=== PATIENT | female | born 1990 | race African-American/Black ===

== ENCOUNTER 2018-05-14 21:48 | Emergency (ER) | payer MEDICAID, SELFPAY ==
[2018-05-14 22:53] LABS: KETONE, URINE AUTO RFX NEGATIVE (NEGATIVE); MUCUS, URINE RFX SMALL (NEGATIVE); NITRITE, URINE AUTO RFX NEGATIVE (NEGATIVE); RBC, URINE AUTO RFX 8 /HPF (0-3); SPECIFIC GRAVITY UR AUTO RFX 1.031 (1.002-1.035); SQUAM EPITHELIAL CELL UR AURFX 5 /HPF (0-6)
[2018-05-14 22:59] LABS: LEUKOCYTE ESTERASE UR AUTO RFX 2+ (NEGATIVE); WBC, URINE AUTO RFX 13 /HPF (0-3)
== END 2018-05-15 01:56 | disposition home or self-care (01) ==
LOC: M ED 05-15 01:56
DX: O23.41 Unspecified infection of urinary tract in pregnancy, first trimester (principal); O30.031 Twin pregnancy, monochorionic/diamniotic, first trimester; Z3A.13 13 weeks gestation of pregnancy; O31.21X1 Continuing pregnancy after intrauterine death of one fetus or more, first trimester, fetus 1; Z3A.10 10 weeks gestation of pregnancy; O99.351 Diseases of the nervous system complicating pregnancy, first trimester; O99.341 Other mental disorders complicating pregnancy, first trimester; O99.011 Anemia complicating pregnancy, first trimester; Z79.899 Other long term (current) drug therapy; Z88.5 Allergy status to narcotic agent; Z88.8 Allergy status to other drugs, medicaments and biological substances; Z91.040 Latex allergy status
CPT/HCPCS: 76811

== ENCOUNTER 2018-06-15 18:47 | Emergency (ER) | payer SELFPAY ==
[2018-06-15] MEDS: NS 500 ML IV (19:28)
[2018-06-15] MEDS: hydrALAZINE INJ 20 MG/ML VIAL IV (19:29)
[2018-06-15 19:34] LABS: BASO # 0.1 10^3/uL (0.0-0.2); BASO % 0.3 % (0.0-1.0); EOS # 0.1 10^3/uL (0.0-0.50); EOS % 0.7 % (0.0-3.0); HEMATOCRIT 40.5 % (36.0-47.0); HEMOGLOBIN 13.3 g/dl (12.0-15.5); IMMATURE GRANULOCYTE % 0.4 % (0-3.0); LYMPH # 3.4 10^3/uL (1.5-6.5); LYMPH % 23.7 % (24.0-44.0); MEAN CORPUSCULAR HGB CONC 32.8 g/dl (32.0-36.5); MEAN CORPUSCULAR VOLUME 79.1 fl (80.0-96.0); MONO # 0.7 10^3/uL (0.0-0.8); MONO % 4.7 % (0.0-5.0); NEUTROPHILS # 10.1 10^3/uL (1.8-7.7); NEUTROPHILS % 70.2 % (36.0-66.0); PLATELET COUNT, AUTOMATED 319 10^3/uL (150-450); RED BLOOD COUNT 5.12 10^6/uL (4.00-5.40); RED CELL DISTRIBUTION WIDTH 14.1 % (11.5-14.5); WHITE BLOOD COUNT 14.4 10^3/uL (4.0-10.0)
[2018-06-15] MEDS: METOCLOPRAMIDE INJ 10MG/2ML VIAL (J2765) IV (19:34)
[2018-06-15] MEDS: HYDROMORPHONE HCL 0.5 MG/ 0.5 ML SYRINGE (J1170 PER 1) IV (19:55)
[2018-06-15 20:02] LABS: ALBUMIN 3.5 GM/DL (3.2-5.2); ALKALINE PHOSPHATASE 133 U/L (45-117); ALT/SGPT 34 U/L (12-78); ANION GAP 13 MEQ/L (8-16); AST/SGOT 11 U/L (7-37); BILIRUBIN,DIRECT < 0.1 MG/DL (0.0-0.2); BILIRUBIN,TOTAL 0.2 MG/DL (0.2-1.0); BLOOD UREA NITROGEN 4 MG/DL (7-18); CALCIUM LEVEL 9.7 MG/DL (8.5-10.1); CARBON DIOXIDE LEVEL 19 MEQ/L (21-32); CHLORIDE LEVEL 110 MEQ/L (98-107); CREATININE FOR GFR 0.64 MG/DL (0.55-1.30); GLOMERULAR FILTRATION RATE > 60.0 (>60); GLUCOSE, FASTING 95 MG/DL (70-100); HCG, SERUM QUANTITATIVE 941 MIU/ML; POTASSIUM SERUM 3.3 MEQ/L (3.5-5.1); SODIUM LEVEL 142 MEQ/L (136-145); TOTAL PROTEIN 7.9 GM/DL (6.4-8.2)
[2018-06-15] MEDS: POTASSIUM CHLORIDE 10 MEQ SR TABLET PO (20:22)
== END 2018-06-15 21:02 | disposition home or self-care (01) ==
LOC: M ED 18:47
DX: O36.4XX0 Maternal care for intrauterine death, not applicable or unspecified (principal); O13.2 Gestational [pregnancy-induced] hypertension without significant proteinuria, second trimester; O99.352 Diseases of the nervous system complicating pregnancy, second trimester; G40.909 Epilepsy, unspecified, not intractable, without status epilepticus; Z3A.18 18 weeks gestation of pregnancy
CPT/HCPCS: J2765

== ENCOUNTER 2018-07-05 11:44 | Day surgery (SDC) | payer MEDICAID, SELFPAY ==
[2018-07-05 13:33] LABS: KETONE, URINE AUTO RFX NEGATIVE (NEGATIVE); LEUKOCYTE ESTERASE UR AUTO RFX NEGATIVE (NEGATIVE); NITRITE, URINE AUTO RFX NEGATIVE (NEGATIVE); RBC, URINE AUTO RFX 2 /HPF (0-3); SPECIFIC GRAVITY UR AUTO RFX 1.006 (1.002-1.035); SQUAM EPITHELIAL CELL UR AURFX 1 /HPF (0-6); WBC, URINE AUTO RFX 1 /HPF (0-3)
[2018-07-05] MEDS: NS 1,000 ML IV (13:34)
[2018-07-05] MEDS: ONDANSETRON 4MG/2ML VIAL (J2405) IV (13:34)
[2018-07-05] MEDS: fentaNYL 100 MCG/2 ML INJECTION (J3010) IV ×6 (13:35→19:22)
[2018-07-05 13:58] LABS: BASO % 0.1 % (0.0-1.0); HEMATOCRIT 37.5 % (36.0-47.0); HEMOGLOBIN 12.2 g/dl (12.0-15.5); IMMATURE GRANULOCYTE % 0.4 % (0-3.0); LYMPH # 2.3 10^3/uL (1.5-6.5); LYMPH % 11.5 % (24.0-44.0); MEAN CORPUSCULAR HEMOGLOBIN 25.9 pg (27.0-33.0); MEAN CORPUSCULAR HGB CONC 32.5 g/dl (32.0-36.5); MEAN CORPUSCULAR VOLUME 79.6 fl (80.0-96.0); MONO # 0.8 10^3/uL (0.0-0.8); MONO % 3.8 % (0.0-5.0); NEUTROPHILS # 17.2 10^3/uL (1.8-7.7); NEUTROPHILS % 84.2 % (36.0-66.0); PLATELET COUNT, AUTOMATED 342 10^3/uL (150-450); RED BLOOD COUNT 4.71 10^6/uL (4.00-5.40); RED CELL DISTRIBUTION WIDTH 15.1 % (11.5-14.5); WHITE BLOOD COUNT 20.4 10^3/uL (4.0-10.0)
[2018-07-05 13:59] LABS: ANION GAP 7 MEQ/L (8-16); BLOOD UREA NITROGEN 11 MG/DL (7-18); C REACTIVE PROTEIN QUANTITATIV 0.65 MG/DL (0.00-0.30); CALCIUM LEVEL 9.4 MG/DL (8.5-10.1); CARBON DIOXIDE LEVEL 25 MEQ/L (21-32); CHLORIDE LEVEL 110 MEQ/L (98-107); CREATININE FOR GFR 0.69 MG/DL (0.55-1.30); GLOMERULAR FILTRATION RATE > 60.0 (>60); GLUCOSE, FASTING 87 MG/DL (70-100); SODIUM LEVEL 142 MEQ/L (136-145)
[2018-07-05 14:38] LABS: ERYTHROCYTE SEDIMENTATION RATE 26 mm/hr (0-20)
[2018-07-05] MEDS ORDERED: PIPERACILLIN/TAZOBACTAM SOD 3.375 GM in D5W MINI-BAG PLUS 50 ML IV (16:00)
[2018-07-05] MEDS: cefTRIAXone SOD 1 GM in D5W MINI-BAG PLUS 50 ML IV (17:12)
[2018-07-05] MEDS ORDERED: PROPOFOL 200 MG/20 ML VIAL As Ordered (17:44)
[2018-07-05] MEDS ORDERED: ONDANSETRON 4MG/2ML VIAL (J2405) As Ordered (17:44)
[2018-07-05] MEDS ORDERED: fentaNYL 100 MCG/2 ML INJECTION (J3010) As Ordered (17:44)
[2018-07-05] MEDS ORDERED: ROCURONIUM BROMIDE 50 MG/5 ML VIAL As Ordered (17:44)
[2018-07-05] MEDS ORDERED: MIDAZOLAM INJ 2 MG/2 ML VIAL (J2250) As Ordered (17:44)
[2018-07-05] MEDS ORDERED: dexameTHASONE 4 MG/ML 1ML VIAL (J1100) As Ordered (17:44)
[2018-07-05] MEDS ORDERED: LIDOCAINE 2% INJ 100 MG/5 ML SDV (FOR ANES.) As Ordered (17:44)
[2018-07-05] MEDS: SILVER NITRATE APPLICATOR As Ordered (18:44)
[2018-07-05] MEDS ORDERED: METOCLOPRAMIDE INJ 10MG/2ML VIAL (J2765) IV (19:15)
[2018-07-05] MEDS ORDERED: KETOROLAC 30 MG/ML VIAL (J1885) IV (19:15)
[2018-07-05] MEDS ORDERED: LR 1,000 ML IV ×2 (19:15)
[2018-07-05] MEDS ORDERED: ONDANSETRON 4MG/2ML VIAL (J2405) IV (19:15)
[2018-07-05] MEDS: traMADol 50 MG TAB PO (19:27)
[2018-07-05] MEDS: PERCOCET 5MG/325MG TAB PO ×2 (19:40→20:20)
[2018-07-05] MEDS ORDERED: PERCOCET 5MG/325MG TAB As Ordered (20:25)
== END 2018-07-05 21:45 | disposition home or self-care (01) ==
LOC: M SDC 21:45 → M ED 11:44 → M SDC 17:59
DX: O73.1 Retained portions of placenta and membranes, without hemorrhage (principal); Z91.040 Latex allergy status
CPT/HCPCS: 59820

== ENCOUNTER 2019-03-05 16:28 | Emergency (ER) | payer MEDICAID ==
[~2019-03-05] VITALS: Ht 165.1 cm; Wt 104.8 kg
[~2019-03-05 16:28] MED LIST: DOXY-350 PO; FIOR1CAP PO; FLAG500T PO; KEPP10002 PO; LABE10TAB PO; MACR100C43 PO; ULTR50TA8 PO
[2019-03-05] MEDS ORDERED: HYDR12CA PO (16:46)
[2019-03-05] MEDS ORDERED: LISI40TA PO (16:46)
[2019-03-05] MEDS ORDERED: FLUO20CA19 PO (16:46)
[2019-03-05] MEDS ORDERED: PROP20TA72 PO (16:46)
[2019-03-05] MEDS ORDERED: GABA-845 PO (16:46)
[2019-03-05] MEDS ORDERED: CLON0.5T8 PO (16:46)
[2019-03-05] MEDS ORDERED: METF500T13 (16:46)
[2019-03-05] MEDS ORDERED: TRAZ-160 PO (16:46)
[2019-03-05] MEDS ORDERED: TIZA2TA PO (16:46)
[2019-03-05] MEDS ORDERED: ONDA4TAB6 (16:46)
[2019-03-05] MEDS ORDERED: ALL10TAB28 PO (16:46)
[2019-03-05] MEDS ORDERED: NS 1,000 ML IV ONE (17:30)
[2019-03-05 17:46] LABS: BASO # 0.1 10^3/uL (0.0-0.2); BASO % 0.4 % (0.0-1.0); EOS # 0.3 10^3/uL (0.0-0.50); EOS % 2.3 % (0.0-3.0); HEMATOCRIT 36.1 % (36.0-47.0); HEMOGLOBIN 11.5 g/dl (12.0-15.5); LYMPH # 3.5 10^3/uL (1.5-6.5); LYMPH % 29.2 % (24.0-44.0); MEAN CORPUSCULAR HEMOGLOBIN 26.5 pg (27.0-33.0); MEAN CORPUSCULAR HGB CONC 31.9 g/dl (32.0-36.5); MEAN CORPUSCULAR VOLUME 83.2 fl (80.0-96.0); MONO # 0.6 10^3/uL (0.0-0.8); MONO % 5.1 % (0.0-5.0); NEUTROPHILS # 7.4 10^3/uL (1.8-7.7); NEUTROPHILS % 62.7 % (36.0-66.0); PLATELET COUNT, AUTOMATED 288 10^3/uL (150-450); RED BLOOD COUNT 4.34 10^6/uL (4.00-5.40); WHITE BLOOD COUNT 11.8 10^3/uL (4.0-10.0)
[2019-03-05] MEDS ORDERED: LORazepam 2 MG/ML VIAL (J2060) IV STA (17:58)
[2019-03-05 18:16] LABS: HCG, SERUM QUALITATIVE NEGATIVE (NEGATIVE)
[2019-03-05 18:20] LABS: BLOOD UREA NITROGEN 7 MG/DL (7-18); CALCIUM LEVEL 9.1 MG/DL (8.5-10.1); CARBON DIOXIDE LEVEL 29 MEQ/L (21-32); CHLORIDE LEVEL 103 MEQ/L (98-107); CREATININE FOR GFR 0.73 MG/DL (0.55-1.30); GLOMERULAR FILTRATION RATE > 60.0 (>60); GLUCOSE, FASTING 81 MG/DL (70-100); POTASSIUM SERUM 3.4 MEQ/L (3.5-5.1); SODIUM LEVEL 138 MEQ/L (136-145)
[2019-03-05 18:46] LABS: C REACTIVE PROTEIN QUANTITATIV 1.46 MG/DL (0.00-0.30)
[2019-03-05] MEDS ORDERED: PROHANCE 279.3MG/ML 15ML VIAL (A9576) As Ordered ONE (18:46)
[2019-03-05] MEDS ORDERED: PROHANCE 279.3MG/ML 5ML VIAL (A9576) As Ordered ONE (18:46)
[2019-03-05 18:53] LABS: ERYTHROCYTE SEDIMENTATION RATE 31 mm/hr (0-20)
[2019-03-05] MEDS ORDERED: LIDO5DIS41 TD (19:53)
[2019-03-05] MEDS ORDERED: ACETAMINOPHEN 325 MG TAB PO ONE (20:00)
[2019-03-05] MEDS ORDERED: LIDOCAINE 5% (LIDODERM) PATCH TD ONE (20:00)
[2019-03-05 21:00] VITALS: BP 132/78
[2019-03-05] MEDS ORDERED: **NOTE PATIENT COMMENT** MISC XX SCH (21:00)
--- NOTE | 2019-03-06 05:38 | REP ---
MRI LUMBAR SPINE WITHOUT AND WITH CONTRAST: HISTORY: Back pain. CONTRAST: ProHance 20 mL. COMPARISON: 01/27/2019. Decreased signal intensity on T2-weighted images is present in the L5-S1 intervertebral disc. The disc is decreased in height. These findings are consistent with disc degeneration. There is no disc bulge or herniation at the L1-2 through L4-5 levels. The nerves exit the neural foramina without compression. A diffuse disc bulge is present at the L5-S1 level. This abuts the thecal sac and S1 nerves. The L5 nerves exit the neural foramina without compression. The conus medullaris is normal in appearance terminating at the level of the L2 vertebral body. Normal signal intensity is present in the lumbar vertebral bodies. IMPRESSION: Diffuse disc bulge at the L5-S1 level. This abuts the thecal sac and S1 nerves. Electronically Signed by Rinku Pace MD 03/06/2019 08:30 A
== END 2019-03-05 21:02 | disposition home or self-care (01) ==
LOC: M ED 16:28
DX: M54.40 Lumbago with sciatica, unspecified side (principal); R51 Headache; R56.9 Unspecified convulsions; I10 Essential (primary) hypertension; F43.10 Post-traumatic stress disorder, unspecified; M32.9 Systemic lupus erythematosus, unspecified; E34.9 Endocrine disorder, unspecified; D57.1 Sickle-cell disease without crisis; M51.27 Other intervertebral disc displacement, lumbosacral region; Z79.84 Long term (current) use of oral hypoglycemic drugs; Z79.899 Other long term (current) drug therapy; Z88.8 Allergy status to other drugs, medicaments and biological substances; Z88.5 Allergy status to narcotic agent; Z91.040 Latex allergy status
CPT/HCPCS: 72158; 80048; 84703; 85025; 85652; 86140; 96361; 96374; 99284; A9576; J2060

== ENCOUNTER 2019-06-27 06:43 | Emergency (ER) | payer OTHER ==
[~2019-06-27] VITALS: Ht 162.6 cm; Wt 118.2 kg
[~2019-06-27 06:43] MED LIST changes: +ALL10TAB29 PO; +CLON0.5T8 PO; +FLUO20CA19 PO; +GABA-845 PO; +HYDR12CA PO; +LIDO5DIS41 TD; +LISI40TA PO; +METF500T13; +ONDA4TAB6; +PROP20TA72 PO; +TIZA2TA PO; +TRAZ-252 PO
[2019-06-27] MEDS ORDERED: NORCO, ANEXSIA 5/325MG TABLET (HYDROcodone/ACETAMINOPHEN) PO ONE (08:15)
--- NOTE | 2019-06-27 08:54 | REPVR ---
EXAM: CT Cervical Spine Without Contrast EXAM DATE/TIME: 06/27/2019 7:17 AM CLINICAL HISTORY: 29 years old, female; Injury or trauma; Fall; Initial encounter; Blunt trauma; Additional info: Trauma, midline tenderness TECHNIQUE: Imaging protocol: Computed tomography images of the cervical spine without contrast. Coronal and sagittal reformatted images were created and reviewed. Radiation optimization: All CT scans at this facility use at least one of these dose optimization techniques: automated exposure control; mA and/or kV adjustment per patient size (includes targeted exams where dose is matched to clinical indication); or iterative reconstruction. COMPARISON: No relevant prior studies available. FINDINGS: Vertebrae: No acute bony injury or malalignment in the cervical spine. Diminished cervical lordosis. Discs/Spinal canal/Neural foramina: No acute findings. Soft tissues: Unremarkable. Lymph nodes: Subcentimeter lymph nodes. Lungs: Unremarkable as visualized. IMPRESSION: No acute bony injury or malalignment in the cervical spine. Electronically signed by: Gamaliel Jaramillo On 06/27/2019 08:54:27 AM
[2019-06-27] MEDS ORDERED: NAPR-837 PO (10:06)
[2019-06-27 10:12] VITALS: BP 150/91
--- NOTE | 2019-06-27 10:30 | REP ---
REASON: Trauma. COMPARISON: None. FINDINGS: Five views of the lumbosacral spine show no acute fracture, dislocation or subluxation. The intervertebral disc spaces are symmetric and well maintained. There is no spondylolisthesis. The pedicles are intact bilaterally and there is no destructive osseous lesions. IMPRESSION: Unremarkable lumbosacral spine series. Electronically Signed by Piotr Farris DO 06/27/2019 02:12 P
--- NOTE | 2019-06-27 10:31 | REP ---
REASON: Trauma with proximal femoral pain. AP and lateral views were obtained. FINDINGS: No acute fracture or destructive osseous lesion. Electronically Signed by Piotr Farris DO 06/27/2019 02:12 P
--- NOTE | 2019-06-27 10:32 | REP ---
REASON: Pain after trauma. The patient refused to remove ankle jewelry. FINDINGS: No acute fracture or destructive osseous lesion. There is an incidental proximal tibial bone island. Electronically Signed by Piotr Farris DO 06/27/2019 02:12 P
--- NOTE | 2019-06-27 10:33 | REP ---
REASON: Pain after trauma. FINDINGS: No acute fracture or destructive osseous lesion. Electronically Signed by Piotr Farris DO 06/27/2019 02:12 P
== END 2019-06-27 10:13 | disposition home or self-care (01) ==
LOC: M ED 06:43
DX: S70.01XA Contusion of right hip, initial encounter (principal); S63.501A Unspecified sprain of right wrist, initial encounter; S13.4XXA Sprain of ligaments of cervical spine, initial encounter; W10.8XXA Fall (on) (from) other stairs and steps, initial encounter; Y92.018 Other place in single-family (private) house as the place of occurrence of the external cause; Z79.899 Other long term (current) drug therapy; Z88.5 Allergy status to narcotic agent; Z88.8 Allergy status to other drugs, medicaments and biological substances; Z91.040 Latex allergy status; F17.210 Nicotine dependence, cigarettes, uncomplicated

== ENCOUNTER → 2019-07-02 | Outpatient (REF) ==
[~2019-07-02] MED LIST changes: +ALL10TAB28 PO; -ALL10TAB29 PO; +NAPR-837 PO
--- NOTE | 2019-07-02 12:36 | REP ---
REASON: Disability determination. AP and lateral views were obtained. Vertebral body height and alignment is within normal limits. The disc spaces are symmetric and well maintained. The pedicles are intact bilaterally. IMPRESSION: Unremarkable limited exam. Electronically Signed by Piotr Farris DO 07/02/2019 12:42 P
== END ==
LOC: M SMT 10:18
PROVIDERS: ATTEND Internal Medicine
DX: Z02.71 Encounter for disability determination (principal)

== ENCOUNTER 2019-12-06 15:15 | Emergency (ER) | payer OTHER ==
[~2019-12-06] VITALS: Ht 162.6 cm; Wt 120.9 kg
[~2019-12-06 15:15] MED LIST changes: -ALL10TAB28 PO; +ALL10TAB29 PO; +CLON0.5T2 PO; -CLON0.5T8 PO
[2019-12-06 15:16] VITALS: BP 132/89
[2019-12-06] MEDS ORDERED: AJOV225I (15:23)
[2019-12-06] MEDS ORDERED: METF500T13 (15:23)
[2019-12-06] MEDS ORDERED: PREG75CA2 (15:23)
[2019-12-06] MEDS ORDERED: QUET5TAB (15:23)
[2019-12-06] MEDS ORDERED: PRAZ1CAP (15:23)
[2019-12-06] MEDS ORDERED: QUET1TAB10 (15:23)
[2019-12-06 16:02] LABS: BASO % 0.2 % (0.0-1.0); EOS # 0.2 10^3/uL (0.0-0.5); EOS % 1.6 % (0.0-3.0); HEMATOCRIT 37.1 % (36.0-47.0); HEMOGLOBIN 11.5 g/dl (12.0-15.5); LYMPH # 2.3 10^3/uL (1.5-5.0); LYMPH % 18.4 % (24.0-44.0); MEAN CORPUSCULAR HEMOGLOBIN 24.4 pg (27.0-33.0); MEAN CORPUSCULAR VOLUME 78.6 fl (80.0-96.0); MONO # 0.5 10^3/uL (0.0-0.8); MONO % 3.9 % (0.0-5.0); NEUTROPHILS # 9.2 10^3/uL (1.5-8.5); NEUTROPHILS % 75.4 % (36.0-66.0); PLATELET COUNT, AUTOMATED 263 10^3/uL (150-450); RED BLOOD COUNT 4.72 10^6/uL (4.00-5.40); WHITE BLOOD COUNT 12.3 10^3/uL (4.0-10.0)
[2019-12-06 16:41] LABS: BLOOD UREA NITROGEN 7 MG/DL (7-18); CALCIUM LEVEL 9.5 MG/DL (8.5-10.1); CARBON DIOXIDE LEVEL 30 MEQ/L (21-32); CHLORIDE LEVEL 106 MEQ/L (98-107); CREATININE FOR GFR 0.82 MG/DL (0.55-1.30); GLOMERULAR FILTRATION RATE > 60.0 (>60); GLUCOSE, FASTING 95 MG/DL (70-100); HCG, SERUM QUANTITATIVE 32612 MIU/ML; POTASSIUM SERUM 3.6 MEQ/L (3.5-5.1); SODIUM LEVEL 139 MEQ/L (136-145)
[2019-12-06 18:44] LABS: CHLAMYDIA DNA AMPLIFICATION NEGATIVE (NEGATIVE); GC DNA AMPLIFICATION NEGATIVE (NEGATIVE)
--- NOTE | 2019-12-07 08:11 | REP ---
FIRST TRIMESTER OB ULTRASOUND: 12/06/2019. Clinical history: Some spotting and vaginal bleeding. Cramping pain. By LMP 13 weeks 1 day. Today's study with the bladder used as an acoustic window and transabdominal scans show a gestational sac in the body and fundus of the uterus. Within the sac is a pole with a crown-rump length of 2.9 cm which corresponds to 9 weeks 5 days. This would give an EDC of 07/05/2020. heart activity is noted at 188 bpm. No subchorionic bleed. The right ovary is 3.2 x 2.6 x 3.3 cm. Within it there is a presumed corpus luteum 2.7 x 2.3 x 2.7 cm. Left ovary 4.2 x 1.6 x 1.9 cm. Both Dopplers show color flow with normal Doppler tracings. S/D ratio 1.8 on the right and 2.2 on the left, normal. No adjacent free fluid. Impression: 1. Single intrauterine gestation at 9 weeks 5 days by crown-rump length giving EDC 07/05/2020. There is no subchorionic bleed. Please note the heart rate of 188 bpm. 2. A 2.7 x 2.7 x 2.3 cm corpus luteum in the right ovary. No free fluid. Normal Doppler to both ovaries, no torsion. Electronically Signed by Amaury Oseguera MD 12/07/2019 08:11 P
== END 2019-12-06 18:30 | disposition home or self-care (01) ==
LOC: M ED 15:15
DX: O20.0 Threatened abortion (principal); Z3A.09 9 weeks gestation of pregnancy; Z79.84 Long term (current) use of oral hypoglycemic drugs; Z79.899 Other long term (current) drug therapy; Z88.6 Allergy status to analgesic agent; Z88.8 Allergy status to other drugs, medicaments and biological substances; Z91.040 Latex allergy status

== ENCOUNTER 2020-01-12 17:19 | Emergency (ER) | payer OTHER ==
[~2020-01-12] VITALS: Ht 162.6 cm; Wt 124.5 kg
[~2020-01-12 17:19] MED LIST changes: +AJOV225I; -FLUO20CA19 PO; +FLUO20CA22 PO; +PRAZ1CAP; +PREG75CA2; +QUET1TAB10; +QUET5TAB
[2020-01-12] MEDS ORDERED: IPRATROPIUM 0.5MG/ALBUTEROL 2.5MG INH SOL UD 3ML (DUONEB)(J7620) NEB ONE (17:45)
[2020-01-12] MEDS ORDERED: METO10TA2 PO (17:48)
[2020-01-12] MEDS ORDERED: PROV108A INH (17:48)
[2020-01-12] MEDS ORDERED: BUTA1CAP PO (17:48)
[2020-01-12] MEDS ORDERED: ALBU83IN NEB (17:48)
[2020-01-12] MEDS ORDERED: MAGN300C PO (17:48)
[2020-01-12 18:11] LABS: BASO # 0.1 10^3/uL (0.0-0.2); BASO % 0.3 % (0.0-1.0); EOS # 0.1 10^3/uL (0.0-0.5); EOS % 0.4 % (0.0-3.0); HEMATOCRIT 36.2 % (36.0-47.0); HEMOGLOBIN 11.6 g/dl (12.0-15.5); LYMPH # 2.8 10^3/uL (1.5-5.0); LYMPH % 17.2 % (24.0-44.0); MEAN CORPUSCULAR HEMOGLOBIN 24.9 pg (27.0-33.0); MEAN CORPUSCULAR VOLUME 77.8 fl (80.0-96.0); MONO # 0.9 10^3/uL (0.0-0.8); MONO % 5.4 % (0.0-5.0); NEUTROPHILS # 12.3 10^3/uL (1.5-8.5); PLATELET COUNT, AUTOMATED 296 10^3/uL (150-450); RED BLOOD COUNT 4.65 10^6/uL (4.00-5.40); WHITE BLOOD COUNT 16.2 10^3/uL (4.0-10.0)
[2020-01-12 19:00] LABS: ALBUMIN 3.3 GM/DL (3.2-5.2); ALT/SGPT 27 U/L (12-78); BILIRUBIN,DIRECT < 0.1 MG/DL (0.0-0.2); BILIRUBIN,TOTAL < 0.1 MG/DL (0.2-1.0); BLOOD UREA NITROGEN 5 MG/DL (7-18); CALCIUM LEVEL 9.2 MG/DL (8.5-10.1); CARBON DIOXIDE LEVEL 20 MEQ/L (21-32); CHLORIDE LEVEL 109 MEQ/L (98-107); CREATININE FOR GFR 0.48 MG/DL (0.55-1.30); GLOMERULAR FILTRATION RATE > 60.0 (>60); GLUCOSE, FASTING 89 MG/DL (70-100); HCG, SERUM QUANTITATIVE 23251 MIU/ML; NT-PRO BNP 56 PG/ML (<125); POTASSIUM SERUM 3.6 MEQ/L (3.5-5.1); SODIUM LEVEL 139 MEQ/L (136-145); THYROID STIMULATING HORMONE 0.745 uIU/ML (0.358-3.740); TOTAL PROTEIN 6.7 GM/DL (6.4-8.2)
[2020-01-12] MEDS ORDERED: ALBUTEROL SULFATE 2.5 MG/0.5 ML INH NEB SOLN INH SCH (19:45)
[2020-01-12] MEDS ORDERED: dexameTHASONE 20 MG/5 ML VIAL (J1100) IV ONE (19:45)
[2020-01-12 20:34] LABS: INFLUENZA A AMPLIFICATION NEGATIVE (NEGATIVE); INFLUENZA B AMPLIFICATION NEGATIVE (NEGATIVE)
--- NOTE | 2020-01-12 21:21 | ECGEPIP ---
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
[2020-01-12 21:53] VITALS: BP 133/72
== END 2020-01-12 22:05 | disposition home or self-care (01) ==
LOC: M ED 17:19
DX: J45.909 Unspecified asthma, uncomplicated (principal); G40.909 Epilepsy, unspecified, not intractable, without status epilepticus; F43.10 Post-traumatic stress disorder, unspecified; D57.3 Sickle-cell trait; E66.8 Other obesity; Z79.899 Other long term (current) drug therapy; Z79.84 Long term (current) use of oral hypoglycemic drugs; Z88.5 Allergy status to narcotic agent; Z88.8 Allergy status to other drugs, medicaments and biological substances; Z91.040 Latex allergy status
CPT/HCPCS: 80048; 80076; 83880; 84443; 84702; 85025; 87502; 93005; 93041; 94640; 94760; 96374; 99285; J1100

== ENCOUNTER 2020-01-16 18:18 | Inpatient (IN) | payer OTHER ==
[~2020-01-16] VITALS: Ht 162.6 cm; Wt 121.7 kg
[~2020-01-16 18:18] MED LIST changes: +ALBU83IN INH; +BUTA1CAP PO; +MAGN300C PO; +METF500T13 PO; +METO10TA2 PO; -PRAZ1CAP; +PRAZ1CAP PO; -PREG75CA2; +PREG75CA2 PO; +PROV108A INH; -QUET1TAB10; +QUET1TAB10 PO; -QUET5TAB; +QUET5TAB PO
[2020-01-16] MEDS ORDERED: MAG SULF 1GM/100ML (MAG RUN) 1 GM in IV 1 EA IV ONE ×4 (18:45)
[2020-01-16] MEDS ORDERED: methylPREDNISolone INJ 125 MG/2 ML VIAL (J2930) IV ONE (18:45)
[2020-01-16] MEDS: IPRATROPIUM 0.5MG/ALBUTEROL 2.5MG INH SOL UD 3ML (DUONEB)(J7620) NEB SCH ×3 (18:51→19:11)
[2020-01-16 18:54] LABS: BASO % 0.3 % (0.0-1.0); EOS # 0.2 10^3/uL (0.0-0.5); EOS % 2.1 % (0.0-3.0); HEMATOCRIT 38.9 % (36.0-47.0); HEMOGLOBIN 12.3 g/dl (12.0-15.5); LYMPH # 2.9 10^3/uL (1.5-5.0); LYMPH % 26.8 % (24.0-44.0); MEAN CORPUSCULAR HEMOGLOBIN 24.8 pg (27.0-33.0); MEAN CORPUSCULAR HGB CONC 31.6 g/dl (32.0-36.5); MEAN CORPUSCULAR VOLUME 78.4 fl (80.0-96.0); MONO # 0.7 10^3/uL (0.0-0.8); MONO % 6.2 % (0.0-5.0); NEUTROPHILS # 6.8 10^3/uL (1.5-8.5); NEUTROPHILS % 63.9 % (36.0-66.0); PLATELET COUNT, AUTOMATED 268 10^3/uL (150-450); RED BLOOD COUNT 4.96 10^6/uL (4.00-5.40); WHITE BLOOD COUNT 10.7 10^3/uL (4.0-10.0)
[2020-01-16 19:17] LABS: BLOOD UREA NITROGEN 5 MG/DL (7-18); CALCIUM LEVEL 9.3 MG/DL (8.5-10.1); CARBON DIOXIDE LEVEL 24 MEQ/L (21-32); CHLORIDE LEVEL 105 MEQ/L (98-107); CREATININE FOR GFR 0.59 MG/DL (0.55-1.30); GLOMERULAR FILTRATION RATE > 60.0 (>60); GLUCOSE, FASTING 105 MG/DL (70-100); SODIUM LEVEL 138 MEQ/L (136-145)
--- NOTE | 2020-01-16 19:18 | REP ---
Portable chest x-ray: Single view. History: Dyspnea and cough. Findings: Monitoring electrodes overlie the chest. The lungs are exposed at a relatively low level of inspiration. No infiltrate is seen. Pulmonary vasculature is not increased. The pleural angles are sharp. Heart size is borderline consistent with AP technique and relatively low lung volume. Impression: No active disease seen. Relatively low level of inspiration. Electronically Signed by Luis Cardona MD 01/16/2020 07:09 P
[2020-01-16] MEDS ORDERED: ISOVUE-370 76% 100ML VIAL (Q9967) As Ordered ONE ×2 (20:44→21:16)
[2020-01-16] MEDS ORDERED: IPRATROPIUM 0.5MG/ALBUTEROL 2.5MG INH SOL UD 3ML (DUONEB)(J7620) NEB ONE (20:45)
[2020-01-16] MEDS ORDERED: POTASSIUM CHLORIDE 10 MEQ SR TABLET PO ONE (20:45)
[2020-01-16] MEDS ORDERED: ACETAMINOPHEN TAB 650MG DOSE (2X325MG) PO ONE (20:45)
[2020-01-16] MEDS ORDERED: ASPI81TA85 PO (21:13)
[2020-01-16] MEDS ORDERED: MAGN400T2 PO (21:13)
[2020-01-16] MEDS ORDERED: PRENTAB9 PO (21:13)
[2020-01-16] MEDS ORDERED: VITA50005 PO (21:13)
--- NOTE | 2020-01-16 22:02 | REPVR ---
PROCEDURE INFORMATION: Exam: US Duplex Lower Extremity Veins Exam date and time: 01/16/2020 9:50 PM Age: 29 years old Clinical indication: Pain; Leg, upper; Bilateral; Additional info: Eval for dvt TECHNIQUE: Imaging protocol: Real-time duplex ultrasound of the Lower Extremities with 2-D gonzalez scale, color Doppler flow and spectral waveform analysis with image documentation. Complete exam focused on the bilateral lower extremity veins. COMPARISON: No relevant prior studies available. FINDINGS: Right deep veins: Unremarkable. The common femoral, femoral and popliteal veins are patent without thrombus. Normal Doppler waveforms. Normal compressibility and/or augmentation response. Right superficial veins: Saphenofemoral junction is patent without thrombus. Left deep veins: Unremarkable. The common femoral, femoral and popliteal veins are patent without thrombus. Normal Doppler waveforms. Normal compressibility and/or augmentation response. Left superficial veins: Saphenofemoral junction is patent without thrombus. Soft tissues: Unremarkable. IMPRESSION: No sonographic evidence of deep vein thrombosis. Electronically signed by: Edson Chaves On 01/16/2020 22:01:50 PM
--- NOTE | 2020-01-16 22:06 | REPVR ---
PROCEDURE INFORMATION: Exam: CT Angiography Chest With Contrast Exam date and time: 01/16/2020 9:34 PM Age: 29 years old Clinical indication: Dyspnea and shortness of breath; Additional info: Eval for pe TECHNIQUE: Imaging protocol: Computed tomographic angiography of the chest with intravenous contrast. Axial, coronal and sagittal reformatted images were created and reviewed. 3D rendering: MIP and/or 3D reconstructed images were created by the technologist. Radiation optimization: All CT scans at this facility use at least one of these dose optimization techniques: automated exposure control; mA and/or kV adjustment per patient size (includes targeted exams where dose is matched to clinical indication); or iterative reconstruction. Contrast material: ISOVUE 370; Contrast volume: 75 ml; Contrast route: IV; COMPARISON: CR PORTABLE CHEST X-RAY 01/16/2020 6:55 PM FINDINGS: Pulmonary arteries: Contrast opacification satisfactory. No intraluminal filling defect. Aorta: Unremarkable. No aneurysm or dissection. Lungs: Mild linear stranding and groundglass, likely due to atelectasis and/or scarring. No focal consolidation. Pleural space: Unremarkable. No pneumothorax. No pleural effusion. Heart: Mild cardiomegaly. Small pericardial effusion. Gallbladder and bile ducts: Status post cholecystectomy. Lymph nodes: No pathologically enlarged lymph nodes. Bones/joints: No acute osseous abnormality. Soft tissues: Unremarkable. IMPRESSION: 1. No CT evidence of pulmonary embolism. 2. Cardiomegaly and small pericardial effusion. 3. Mild linear stranding and groundglass, likely due to atelectasis and/or scarring. Mild edema cannot be excluded. 4. Additional findings, as above. Electronically signed by: Edson Chaves On 01/16/2020 22:06:31 PM
[2020-01-16] MEDS ORDERED: ALBUTEROL SULFATE 2.5 MG/0.5 ML INH NEB SOLN NEB PRN (22:30)
[2020-01-16] MEDS ORDERED: BENZONATATE 100 MG CAP PO PRN (22:30)
[2020-01-16] MEDS ORDERED: ACETAMINOPHEN TAB 650MG DOSE (2X325MG) PO PRN (22:30)
--- NOTE | 2020-01-16 22:36 | HPEPDOC ---
[facility] Medical History & Physical Date of Admission Jan 16, 2020 Date of Service: Jan 16, 2020 Primary Care Physician: JEFFREY SWAIN Attending Physician: DANUTA GOMEZ MD History and Physical TIME OF SERVICE: 1045PM CHIEF COMPLAINT: Shortness of breath HISTORY OF PRESENT ILLNESS: This 29-year-old female initially presented to [facility] in December with complaints of shortness of breath. She was told that she has asthma given steroids. She felt better for a few days but this morning around 2 AM she developed shortness of breath associated with difficulty speaking, chest tightness and stabbing chest pain that's made worse by coughing. Her cough is productive of yellow sputum. She denies having fevers, but admits to feeling cold and having a headache. She denies having formal PFTs done in the past or formal diagnosis of asthma prior to her visit to [facility]. REVIEW OF SYSTEMS: 12 point review of systems negative except as listed in HPI PAST MEDICAL/ SURGICAL HISTORY: Reactive airway disease? SLE Seizure disorder PTSD Chronic Hypertension. Sickle cell trait Cholecystectomy Appendectomy Rhinoplasty 2 3 D&C 2 [place] of tooth extraction She denies having diabetes but is on metformin for weight loss SOCIAL HISTORY: He doesn't smoke. She is from [place]. She has 3 children and lives with her boyfriend FAMILY HISTORY: Her father has leukemia. Mother also has cancer Both parents have anxiety disorder ALLERGIES: Please see below. HOME MEDICATIONS: Please see below. Vital Signs Date Time Temp Pulse Resp B/P (MAP) Pulse Ox O2 Delivery O2 Flow Rate FiO2 01/16/20 18:18 97.9 139 32 165/111 (129) 98 Room Air 01/16/20 18:49 2.0 PHYSICAL EXAMINATION: Bedside Peak flow 125 GEN: well nourished / well developed/ NAD INTEGUMENT: She doesn't have facial plethora HEENT:NCAT / lips are not cyanotic / NC in place / mucus membranes moist and pink / sclera anicteric CVS: RRR/ radial pulses intact LUNGS: She is able to able to speak full sentences without stopping to take a breath, but her voice is not as loud as usual / coughing / there is decreased respiratory expansion along with expiratory wheezing ABDOMEN: soft & not tender with palpation MSK/EXTREMITIES: range of motion intact in all 4 extremities NEURO: CN 2-12 are grossly intact / speech is not dysarthric PSYCH: alert and oriented to person place and time/ able to understand and follow all commands LABORATORY DATA: Immature Granulocyte % (Auto) 0.7, Neutrophils (%) (Auto) 63.9, Lymphocytes (%) (Auto) 26.8, Monocytes (%) (Auto) 6.2H, Eosinophils (%) (Auto) 2.1, Basophils (%) (Auto) 0.3, Neutrophils # (Auto) 6.8, Lymphocytes # (Auto) 2.9, Monocytes # (Auto) 0.7, Eosinophils # (Auto) 0.2, Basophils # (Auto) 0.0, Nucleated Red Blood Cells % (auto) 0.0, Anion Gap 9, Glomerular Filtration Rate > 60.0, Calcium Level 9.3 D-Dimer, Quantitative 975.71H IMAGING: Chest x-ray " Impression: No active disease seen. Relatively low level of inspiration." Ultrasound " IMPRESSION: No sonographic evidence of deep vein thrombosis." CTA " IMPRESSION: 1. No CT evidence of pulmonary embolism. 2. Cardiomegaly and small pericardial effusion. 3. Mild linear stranding and groundglass, likely due to atelectasis and/or scarring. Mild edema cannot be excluded. 4. Additional findings, as above. " MICROBIOLOGY: Please see below. ASSESSMENT: Ms. Akers is a 29-year-old with a past medical history of SLE, seizure disorder, SLE, PTSD, and HTN who is admitted for management of acute dyspnea possibly due to reactive airway disease or undiagnosed asthma. PLAN: 1. SIRS likely reactive due to nebs and URI SIRS criteria include: HR >90 / RR> 20 Plan: admit to regular floor/ telemetry / follow-up lactic acid/IV/ Acetaminophen PRN 2. Reactive Airway Disease She might have undiagnosed asthma or acute bronchitis Trigger to be URI or seasonal pollen or changes in weather Despite the elevated d-dimer the CTA was negative for PE She received DuoNeb, Solu-Medrol, and magnesium in the ER, but is still very short of breath. Her peak flow was only 125 L/min based on her height and gender it should be closer to 419 L/min Plan: f/u respiratory panel / c/w supplemental O2 / continuous pulse ox / f/u serial peak flow / Dunebs Q6H, Albuterol Q1HP / start oral Prednisone with PPI / Tessalon Pearls / pending resolution of the URI symptoms, she may benefit from formal PFTs which can be done an outpatient basis 3. Hypokalemia 2/2 beta-adrenergic agonists Plan: replete K and f/u Mag 4. Seizure disorder - Plan: Keppra 5. EGA 15 weeks - Plan: f/w OB as scheduled 6. PTSD - Plan: resume home meds 7. Obesity BMI 47.3 complicates care. She denies having a diagnosis of DM but was on metformin and topiramate (has been discontinued) to manage her weight.- Plan: f/u A1C / can f/u w PCP for insurance specialist consult DVT PROPHYLAXIS: SCDs DISPOSITION: home after more than 2 midnight's stay Laboratory Data Microbiology Microbiology 01/16/20 Respiratory Virus Panel (PCR) ([facility]), Received Pending Home Medications Scheduled Aspirin (Aspir 81) 81 Mg Tablet.dr, 81 MG PO DAILY Cetirizine HCl (Cetirizine HCl) 10 Mg Tablet, 10 MG PO DAILY Ergocalciferol (Vitamin D2) (Vitamin D2) 50,000 Units Cap, 50,000 UNITS PO 1XWK TAKES ON SUNDAY Fluoxetine Hcl (Fluoxetine HCl) 20 Mg Capsule, 40 MG PO DAILY Levetiracetam (Keppra) 1,000 Mg Tab, 1,000 MG PO BID Magnesium Oxide (Magnesium Oxide) 400 Mg Tablet, 400 MG PO DAILY Metformin HCl (Metformin HCl) 500 Mg Tablet, 500 MG PO DAILY Metoclopramide HCl (Metoclopramide HCl) 10 Mg Tablet, 10 MG PO TID Prazosin Hcl (Prazosin HCl) 1 Mg Capsule, 3 MG PO QHS Pregabalin (Pregabalin) 75 Mg Capsule, 75 MG PO DAILY No.137/Iron/Folic Acd ( Vitamin Tablet) 1 Each Tablet, 1 TAB PO DAILY Quetiapine Fumarate (Quetiapine Fumarate) 300 Mg Tablet, 300 MG PO QHS Quetiapine Fumarate (Quetiapine Fumarate) 50 Mg Tablet, 50 MG PO BID TAKE QAM AND AT NOON Scheduled PRN Albuterol Sulf (Albuterol Sulfate) 2.5 Mg/3 Ml Vial.neb, 1 INH INH Q4H PRN for wheezing Albuterol Sulfate (Proventil Hfa) 6.7 Gm Hfa.aer.ad, 2 PUFF INH Q4H PRN for WHEEZING Butalb/Acetaminophen/Caffeine (Fioricet 50-300-40 mg Capsule) 1 Cap Cap, 1 CAP PO for MIGRAINE Clonazepam (Clonazepam) 0.5 Mg Tablet, 0.5 MG PO TID PRN for ANXIETY/AGITATION Allergies Coded Allergies: hydroxychloroquine (Verified Allergy, Severe, anaphylaxis, 03/05/19) morphine (Verified Allergy, Severe, shock, 03/05/19) latex (Verified Allergy, Mild, rash, 03/05/19) enoxaparin (Verified Adverse Reaction, Intermediate, seizures, 03/05/19) ketorolac (Verified Adverse Reaction, Intermediate, seizures, 03/05/19) methocarbamol (Verified Adverse Reaction, Intermediate, seizures, 03/05/19) famotidine (Verified Adverse Reaction, Mild, vomiting, 03/05/19) promethazine (Verified Adverse Reaction, Mild, vomiting, 03/05/19) A-FIB/CHADSVASC A-FIB History Current/History of A-Fib/PAF?: No Current PO Anticoag Therapy: DANUTA Rosa MD Jan 16, 2020 22:36
[2020-01-16] MEDS ORDERED: FIORICET TAB PO PRN (23:15)
[2020-01-16 23:18] LABS: HEMOGLOBIN A1c 5.7 %
[2020-01-17 00:28] VITALS: BP 142/87
[2020-01-17] MEDS: IPRATROPIUM 0.5MG/ALBUTEROL 2.5MG INH SOL UD 3ML (DUONEB)(J7620) NEB SCH ×4 (01:24→18:18)
[2020-01-17] MEDS: QUEtiapine FUMARATE 100 MG TAB PO SCH ×2 (02:30→20:57)
[2020-01-17] MEDS: levETIRAcetam 250MG TABLET (KEPPRA) PO SCH ×3 (02:30→20:58)
[2020-01-17] MEDS: METOCLOPRAMIDE 10 MG TAB PO SCH ×4 (02:30→20:58)
[2020-01-17] MEDS: PRAZOSIN 1 MG CAP PO SCH ×2 (02:31→20:58)
[2020-01-17 06:00] VITALS: BP 126/75
[2020-01-17 06:25] LABS: HEMATOCRIT 32.4 % (36.0-47.0); HEMOGLOBIN 10.5 g/dl (12.0-15.5); MEAN CORPUSCULAR HEMOGLOBIN 25.5 pg (27.0-33.0); MEAN CORPUSCULAR HGB CONC 32.4 g/dl (32.0-36.5); MEAN CORPUSCULAR VOLUME 78.6 fl (80.0-96.0); PLATELET COUNT, AUTOMATED 235 10^3/uL (150-450); RED BLOOD COUNT 4.12 10^6/uL (4.00-5.40); WHITE BLOOD COUNT 8.7 10^3/uL (4.0-10.0)
[2020-01-17 06:43] LABS: BLOOD UREA NITROGEN 7 MG/DL (7-18); CALCIUM LEVEL 8.6 MG/DL (8.5-10.1); CARBON DIOXIDE LEVEL 25 MEQ/L (21-32); CHLORIDE LEVEL 109 MEQ/L (98-107); CREATININE FOR GFR 0.57 MG/DL (0.55-1.30); GLOMERULAR FILTRATION RATE > 60.0 (>60); GLUCOSE, FASTING 120 MG/DL (70-100); POTASSIUM SERUM 3.2 MEQ/L (3.5-5.1); SODIUM LEVEL 138 MEQ/L (136-145)
[2020-01-17] MEDS: PRENATAL VITAMINS CHEWABLE TABLET PO SCH (07:55)
[2020-01-17] MEDS: CETIRIZINE (ZyrTEC) 10 MG TAB PO SCH (07:55)
[2020-01-17] MEDS: ASPIRIN 81 MG ENTERIC TAB PO SCH (07:55)
[2020-01-17] MEDS: MAGNESIUM OXIDE 400 MG TAB (MAG-OX) PO SCH (07:55)
[2020-01-17] MEDS: PREGABALIN 75 MG CAP(LYRICA) PO SCH (07:56)
[2020-01-17] MEDS: metFORMIN (GLUCOPHAGE) 500 MG TAB PO SCH (07:56)
[2020-01-17] MEDS: QUEtiapine FUMARATE 50 MG TAB PO SCH ×2 (07:56→12:14)
[2020-01-17] MEDS: DOCUSATE SODIUM 100 MG CAP PO SCH ×2 (07:57→20:59)
[2020-01-17] MEDS: predniSONE 20 MG TAB PO SCH (07:57)
[2020-01-17] MEDS: FLUoxetine 20 MG CAP PO SCH (07:58)
[2020-01-17] MEDS: clonazePAM 0.5 MG TAB PO PRN ×2 (08:05→13:35)
[2020-01-17] MEDS: PANTOPRAZOLE 40MG TAB (PROTONIX) PO SCH (08:06)
[2020-01-17 10:00] VITALS: BP 118/94
[2020-01-17] MEDS: POTASSIUM CHLORIDE 10 MEQ SR TABLET PO SCH ×2 (10:06→13:36)
[2020-01-17 14:00] VITALS: BP 115/64
[2020-01-17 18:00] VITALS: BP 127/71
--- NOTE | 2020-01-17 18:42 | ECGEPIP ---
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
--- NOTE | 2020-01-17 20:41 | IPNPDOC ---
Date Seen The patient was seen on 01/17/20. Progress Note SUBJECTIVE: 29 y.o female w/ PMH of SLE, Seizure disorder, DM & PTSD was admitted for hypoxemic respiratory failure secondary to human metapneumovirus. She has been treated w/ supplemental oxygen, steroids, duonebs & supportive care. She reports improvement in chest discomfort but continues to have dyspnea & cough at this time. She has no other complaints at this time. She denies any N/V/D or abdominal pain. She reports significant dyspnea on exertion. 10 point review of system is negative except for above. OBJECTIVE PHYSICAL EXAMINATION: VITAL SIGNS: Please see below. GENERAL: no distress HEENT: moist mucus membranes CARDIOVASCULAR: S1, S2, no murmurs RESPIRATORY: diminished, scattered rhonchi ABDOMINAL: soft, non-tender, non-distended, +BS EXTREMITIES: ROM intact NEUROLOGICAL: no focal deficits PSYCHOLOGICAL: calm LABORATORY DATA, IMAGING STUDIES, MICROBIOLOGY: Please see below. ASSESSMENT AND PLAN: 29 y.o female w/ PMH of SLE, seizure disorder, DM & PTSD admitted for hypoxemic respiratory failure & asthma exacerbation secondary to human metapneumovirus. PROBLEMS: 1. Asthma exacerbation - secondary to human metapneumovirus, continue steroids, duoneb PRN, supplemental oxygen & supportive care. 2. Hypoxemic respiratory failure - secondary to above, continue supplemental oxygen to maintain O2 sats between 88-92%. 3. Seizure disorder - continue home regimen 4. SLE - not on medication at this time, follow up outpatient. 5. DM - continue metformin DVT Prophylaxis - SCDs GI Prophylaxis - home PPI VS, I&O, 24H, Fishbone Vital Signs/I&O Vital Signs Date Time Temp Pulse Resp B/P (MAP) Pulse Ox O2 Delivery O2 Flow Rate FiO2 01/17/20 18:00 98.2 72 16 127/71 (89) 93 Nasal Cannula 2.0 I&O- Last 24 Hours up to 6 AM 01/17/20 06:00 Intake Total 600 ml Balance 600 ml Laboratory Data 24H LABS Laboratory Tests 2 01/16/20 23:42: Lactic Acid Level 1.2 01/17/20 05:58: Nucleated Red Blood Cells % (auto) 0.0, Anion Gap 4L, Glomerular Filtration Rate > 60.0, Calcium Level 8.6 CBC/BMP Laboratory Tests 01/17/20 05:58 Microbiology Microbiology 01/16/20 Respiratory Virus Panel (PCR) ([facility]) - Final, Complete Human Metapneumovirus NILA TILLEY MD Jan 17, 2020 20:41
[2020-01-17 22:00] VITALS: BP 143/78
[2020-01-18] VITALS (7 sets, daily range): BP systolic 137–161; BP diastolic 74–100
[2020-01-18] MEDS: IPRATROPIUM 0.5MG/ALBUTEROL 2.5MG INH SOL UD 3ML (DUONEB)(J7620) NEB SCH ×4 (01:22→19:57)
[2020-01-18] MEDS: clonazePAM 0.5 MG TAB PO PRN ×3 (01:39→21:07)
[2020-01-18 06:06] LABS: HEMATOCRIT 32.2 % (36.0-47.0); HEMOGLOBIN 10.2 g/dl (12.0-15.5); MEAN CORPUSCULAR HEMOGLOBIN 25.2 pg (27.0-33.0); MEAN CORPUSCULAR HGB CONC 31.7 g/dl (32.0-36.5); MEAN CORPUSCULAR VOLUME 79.5 fl (80.0-96.0); PLATELET COUNT, AUTOMATED 221 10^3/uL (150-450); RED BLOOD COUNT 4.05 10^6/uL (4.00-5.40); WHITE BLOOD COUNT 13.9 10^3/uL (4.0-10.0)
[2020-01-18 06:19] LABS: BLOOD UREA NITROGEN 9 MG/DL (7-18); CALCIUM LEVEL 8.2 MG/DL (8.5-10.1); CARBON DIOXIDE LEVEL 24 MEQ/L (21-32); CHLORIDE LEVEL 110 MEQ/L (98-107); CREATININE FOR GFR 0.45 MG/DL (0.55-1.30); GLOMERULAR FILTRATION RATE > 60.0 (>60); GLUCOSE, FASTING 93 MG/DL (70-100); MAGNESIUM LEVEL 1.8 MG/DL (1.8-2.4); PHOSPHORUS LEVEL 3.8 MG/DL (2.5-4.9); POTASSIUM SERUM 3.5 MEQ/L (3.5-5.1); SODIUM LEVEL 141 MEQ/L (136-145)
[2020-01-18] MEDS: metFORMIN (GLUCOPHAGE) 500 MG TAB PO SCH (08:00)
[2020-01-18] MEDS: PRENATAL VITAMINS CHEWABLE TABLET PO SCH (08:36)
[2020-01-18] MEDS: MAGNESIUM OXIDE 400 MG TAB (MAG-OX) PO SCH (08:36)
[2020-01-18] MEDS: levETIRAcetam 250MG TABLET (KEPPRA) PO SCH ×2 (08:36→20:46)
[2020-01-18] MEDS: QUEtiapine FUMARATE 50 MG TAB PO SCH ×2 (08:36→12:21)
[2020-01-18] MEDS: CETIRIZINE (ZyrTEC) 10 MG TAB PO SCH (08:37)
[2020-01-18] MEDS: predniSONE 20 MG TAB PO SCH (08:37)
[2020-01-18] MEDS: METOCLOPRAMIDE 10 MG TAB PO SCH ×3 (08:37→20:46)
[2020-01-18] MEDS: ASPIRIN 81 MG ENTERIC TAB PO SCH (08:37)
[2020-01-18] MEDS: DOCUSATE SODIUM 100 MG CAP PO SCH ×2 (08:37→20:46)
[2020-01-18] MEDS: PANTOPRAZOLE 40MG TAB (PROTONIX) PO SCH (08:38)
[2020-01-18] MEDS: PREGABALIN 75 MG CAP(LYRICA) PO SCH (08:38)
[2020-01-18] MEDS: FLUoxetine 20 MG CAP PO SCH (08:38)
[2020-01-18] MEDS ORDERED: POTASSIUM CHLORIDE 10 MEQ SR TABLET PO ONE (08:45)
--- NOTE | 2020-01-18 18:31 | IPNPDOC ---
Date Seen The patient was seen on 01/18/20. Progress Note SUBJECTIVE: 29 y.o female w/ PMH of SLE, Seizure disorder, DM & PTSD was admitted for hypoxemic respiratory failure secondary to human metapneumovirus. She has been treated w/ supplemental oxygen, steroids, duonebs & supportive care. She reports improvement in chest discomfort but continues to have dyspnea & cough at this time. She has no other complaints at this time. She denies any N/V/D or abdominal pain. She reports significant dyspnea on exertion. 01/18/20 Comfortable in bed, clinically improving although not at baseline yet, no other complaints. 10 point review of system is negative except for above. OBJECTIVE PHYSICAL EXAMINATION: VITAL SIGNS: Please see below. GENERAL: no distress HEENT: moist mucus membranes CARDIOVASCULAR: S1, S2, no murmurs RESPIRATORY: scattered rhonchi ABDOMINAL: soft, non-tender, non-distended, +BS EXTREMITIES: ROM intact NEUROLOGICAL: no focal deficits PSYCHOLOGICAL: calm LABORATORY DATA, IMAGING STUDIES, MICROBIOLOGY: Please see below. ASSESSMENT AND PLAN: 29 y.o female w/ PMH of SLE, seizure disorder, DM & PTSD admitted for hypoxemic respiratory failure & asthma exacerbation secondary to human metapneumovirus. PROBLEMS: 1. Asthma exacerbation - secondary to human metapneumovirus, continue steroids, duoneb PRN, supplemental oxygen & supportive care. 2. Hypoxemic respiratory failure - secondary to above, continue supplemental oxygen to maintain O2 sats between 88-92%. Encourage ambulation, will titrate O2 off as tolerated. 3. Seizure disorder - continue home regimen 4. SLE - not on medication at this time, follow up outpatient. 5. DM - continue metformin DVT Prophylaxis - SCDs GI Prophylaxis - home PPI VS, I&O, 24H, Fishbone Vital Signs/I&O Vital Signs Date Time Temp Pulse Resp B/P (MAP) Pulse Ox O2 Delivery O2 Flow Rate FiO2 01/18/20 18:00 98.1 82 19 139/77 (97) 98 Room Air 01/18/20 14:00 I&O- Last 24 Hours up to 6 AM 01/18/20 06:00 Intake Total 1760 ml Balance 1760 ml Laboratory Data 24H LABS Laboratory Tests 2 01/18/20 05:25: Nucleated Red Blood Cells % (auto) 0.0, Anion Gap 7L, Glomerular Filtration Rate > 60.0, Calcium Level 8.2L, Phosphorus Level 3.8, Magnesium Level 1.8 CBC/BMP Laboratory Tests 01/18/20 05:25 Microbiology Microbiology 01/16/20 Respiratory Virus Panel (PCR) ([facility]) - Final, Complete Human Metapneumovirus NILA TILLEY MD Jan 18, 2020 18:31
[2020-01-18] MEDS: PRAZOSIN 1 MG CAP PO SCH (20:45)
[2020-01-18] MEDS: QUEtiapine FUMARATE 100 MG TAB PO SCH (20:46)
[2020-01-19] MEDS: IPRATROPIUM 0.5MG/ALBUTEROL 2.5MG INH SOL UD 3ML (DUONEB)(J7620) NEB SCH ×3 (01:55→13:46)
[2020-01-19 02:00] VITALS: BP 168/72
[2020-01-19 06:00] VITALS: BP 150/92
[2020-01-19 06:45] VITALS: BP 160/100
[2020-01-19 07:10] LABS: BLOOD UREA NITROGEN 7 MG/DL (7-18); CALCIUM LEVEL 8.7 MG/DL (8.5-10.1); CARBON DIOXIDE LEVEL 22 MEQ/L (21-32); CHLORIDE LEVEL 107 MEQ/L (98-107); CREATININE FOR GFR 0.45 MG/DL (0.55-1.30); GLOMERULAR FILTRATION RATE > 60.0 (>60); GLUCOSE, FASTING 87 MG/DL (70-100); POTASSIUM SERUM 3.4 MEQ/L (3.5-5.1); SODIUM LEVEL 138 MEQ/L (136-145)
[2020-01-19] MEDS: levETIRAcetam 250MG TABLET (KEPPRA) PO SCH (08:21)
[2020-01-19] MEDS: PRENATAL VITAMINS CHEWABLE TABLET PO SCH (08:21)
[2020-01-19] MEDS: METOCLOPRAMIDE 10 MG TAB PO SCH (08:21)
[2020-01-19] MEDS: FLUoxetine 20 MG CAP PO SCH (08:22)
[2020-01-19] MEDS: ASPIRIN 81 MG ENTERIC TAB PO SCH (08:22)
[2020-01-19] MEDS: DOCUSATE SODIUM 100 MG CAP PO SCH (08:22)
[2020-01-19] MEDS: PANTOPRAZOLE 40MG TAB (PROTONIX) PO SCH (08:22)
[2020-01-19] MEDS: predniSONE 20 MG TAB PO SCH (08:22)
[2020-01-19] MEDS: MAGNESIUM OXIDE 400 MG TAB (MAG-OX) PO SCH (08:22)
[2020-01-19] MEDS: metFORMIN (GLUCOPHAGE) 500 MG TAB PO SCH (08:23)
[2020-01-19] MEDS: CETIRIZINE (ZyrTEC) 10 MG TAB PO SCH (08:23)
[2020-01-19] MEDS: QUEtiapine FUMARATE 50 MG TAB PO SCH ×2 (08:23→11:57)
[2020-01-19] MEDS: PREGABALIN 75 MG CAP(LYRICA) PO SCH (08:25)
[2020-01-19] MEDS: POTASSIUM CHLORIDE 10 MEQ SR TABLET PO SCH ×2 (08:31→12:01)
[2020-01-19] MEDS: clonazePAM 0.5 MG TAB PO PRN (08:31)
[2020-01-19 10:00] VITALS: BP 150/100
[2020-01-19 10:25] VITALS: BP 148/84
[2020-01-19] MEDS ORDERED: PRED10TA2 PO (10:28)
[2020-01-19] MEDS ORDERED: FIORICET TAB PO PRN (10:45)
[2020-01-19 14:00] VITALS: BP 149/82
--- NOTE | 2020-01-19 19:21 | DS.PDOC ---
Discharge Summary General Date of Admission Jan 16, 2020 at 22:27 Date of Discharge 01/19/20 Attending Physician: NILA TILLEY MD Discharge Summary PROCEDURES PERFORMED DURING STAY: None. ADMITTING DIAGNOSES: 1. Human meta-Pneumovirus, asthma exacerbation. DISCHARGE DIAGNOSES: 1. Human meta-Pneumovirus, asthma exacerbation. COMPLICATIONS/CHIEF COMPLAINT: Dyspnea; Hypokalemia. HISTORY OF PRESENT ILLNESS: 29-year-old female with past medical history of lupus and seizure disorder, was admitted for asthma exacerbation secondary to human meta-Pneumovirus. Patient was treated with supportive care consisting of supplemental oxygen, DuoNeb and antitussives along with prednisone. Patient had gradual clinical improvement during stay, oxygen was successfully titrated off and patient is clearly stable for discharge back home. Patient is advised to follow-up with [facility] and PCP within 1-2 weeks. Patient will be discharged on a short prednisone taper. Patient is clinically and hemodynamically stable for discharge at this time. HOSPITAL COURSE: As above. DISCHARGE MEDICATIONS: Please see below. ALLERGIES: Please see below. PHYSICAL EXAMINATION: VITAL SIGNS: Please see below. GENERAL: Morbidly obese HEENT: Normocephalic, atraumatic, moist mucous membranes NECK: Supple CARDIOVASCULAR EXAMINATION: S1, S2, no murmurs RESPIRATORY EXAMINATION: Scattered rhonchi, no wheezing ABDOMINAL EXAMINATION: Soft, nontender, nondistended, positive bowel sounds EXTREMITIES: Range of motion intact SKIN: No rash NEUROLOGICAL EXAMINATION: Alert and oriented 3, no focal deficits PSYCHIATRIC EXAMINATION: Calm and cooperative LABORATORY DATA: Please see below. IMAGING: CT chest showed mild groundglass opacities, mild cardiomegaly with trace pericardial effusion PROGNOSIS: Fair ACTIVITY: As tolerated. DIET: Cardiac DISCHARGE PLAN: Follow with PCP and [facility] within 1-2 weeks DISPOSITION: 01 Home, Self-Care. DISCHARGE INSTRUCTIONS: 1. As above. DISCHARGE CONDITION: Stable. TIME SPENT ON DISCHARGE: Greater than 26 minutes. Vital Signs/I&Os Vital Signs Date Time Temp Pulse Resp B/P (MAP) Pulse Ox O2 Delivery O2 Flow Rate FiO2 01/19/20 14:00 98.2 93 18 149/82 (104) 97 Room Air 01/18/20 14:00 I&O- Last 24 Hours up to 6 AM 01/19/20 06:00 Intake Total 1260 ml Balance 1260 ml Laboratory Data Labs 24H Laboratory Tests 2 01/19/20 06:01: Anion Gap 9, Glomerular Filtration Rate > 60.0, Calcium Level 8.7 CBC/BMP Laboratory Tests 01/19/20 06:01 Microbiology Microbiology 01/16/20 Respiratory Virus Panel (PCR) ([facility]) - Final, Complete Human Metapneumovirus Discharge Medications Scheduled Aspirin (Aspir 81) 81 Mg Tablet.dr, 81 MG PO DAILY, (Reported) Cetirizine HCl (Cetirizine HCl) 10 Mg Tablet, 10 MG PO DAILY, (Reported) Ergocalciferol (Vitamin D2) (Vitamin D2) 50,000 Units Cap, 50,000 UNITS PO 1XWK, (Reported) TAKES ON SUNDAY Fluoxetine Hcl (Fluoxetine HCl) 20 Mg Capsule, 40 MG PO DAILY, (Reported) Levetiracetam (Keppra) 1,000 Mg Tab, 1,000 MG PO BID, (Reported) Magnesium Oxide (Magnesium Oxide) 400 Mg Tablet, 400 MG PO DAILY, (Reported) Metformin HCl (Metformin HCl) 500 Mg Tablet, 500 MG PO DAILY, (Reported) Metoclopramide HCl (Metoclopramide HCl) 10 Mg Tablet, 10 MG PO TID, (Reported) Prazosin Hcl (Prazosin HCl) 1 Mg Capsule, 3 MG PO QHS, (Reported) Prednisone (Prednisone) 10 Mg Tablet, 1 TAB PO DAILY Taper: Take 3 tabs daily x2 days then 2 tabs daily x 2 days then 1 tab daily x2 days. Pregabalin (Pregabalin) 75 Mg Capsule, 75 MG PO DAILY, (Reported) No.137/Iron/Folic Acd ( Vitamin Tablet) 1 Each Tablet, 1 TAB PO DAILY, (Reported) Quetiapine Fumarate (Quetiapine Fumarate) 300 Mg Tablet, 300 MG PO QHS, (Reported) Quetiapine Fumarate (Quetiapine Fumarate) 50 Mg Tablet, 50 MG PO BID, (Reported) TAKE QAM AND AT NOON Scheduled PRN Albuterol Sulf (Albuterol Sulfate) 2.5 Mg/3 Ml Vial.neb, 1 INH INH Q4H PRN for wheezing, (Reported) Albuterol Sulfate (Proventil Hfa) 6.7 Gm Hfa.aer.ad, 2 PUFF INH Q4H PRN for WHEEZING, (Reported) Butalb/Acetaminophen/Caffeine (Fioricet 50-300-40 mg Capsule) 1 Cap Cap, 1 CAP PO for MIGRAINE, (Reported) Clonazepam (Clonazepam) 0.5 Mg Tablet, 0.5 MG PO TID PRN for ANXIETY/AGITATION, (Reported) Allergies Coded Allergies: hydroxychloroquine (Verified Allergy, Severe, anaphylaxis, 03/05/19) morphine (Verified Allergy, Severe, shock, 03/05/19) latex (Verified Allergy, Mild, rash, 03/05/19) enoxaparin (Verified Adverse Reaction, Intermediate, seizures, 03/05/19) ketorolac (Verified Adverse Reaction, Intermediate, seizures, 03/05/19) methocarbamol (Verified Adverse Reaction, Intermediate, seizures, 03/05/19) famotidine (Verified Adverse Reaction, Mild, vomiting, 03/05/19) promethazine (Verified Adverse Reaction, Mild, vomiting, 03/05/19) NILA TILLEY MD Jan 19, 2020 19:21
== END 2020-01-19 14:49 | disposition home or self-care (01) | DRG 566 ==
LOC: M ED 18:18 → M ED INP 22:27 → ENRESERV 22:57 → M MSPAV 01-17 00:28
PROVIDERS: ADMIT Internal Medicine; ATTEND Internal Medicine
DX: O99.512 Diseases of the respiratory system complicating pregnancy, second trimester (principal); J96.91 Respiratory failure, unspecified with hypoxia; B97.81 Human metapneumovirus as the cause of diseases classified elsewhere; R65.10 Systemic inflammatory response syndrome (SIRS) of non-infectious origin without acute organ dysfunction; Z68.42 Body mass index [BMI] 45.0-49.9, adult; O99.89 Other specified diseases and conditions complicating pregnancy, childbirth and the puerperium; O99.352 Diseases of the nervous system complicating pregnancy, second trimester; G40.909 Epilepsy, unspecified, not intractable, without status epilepticus; E66.9 Obesity, unspecified; J06.9 Acute upper respiratory infection, unspecified; J45.901 Unspecified asthma with (acute) exacerbation; Z3A.15 15 weeks gestation of pregnancy; O99.342 Other mental disorders complicating pregnancy, second trimester; F43.10 Post-traumatic stress disorder, unspecified; E87.6 Hypokalemia; O99.282 Endocrine, nutritional and metabolic diseases complicating pregnancy, second trimester; O99.212 Obesity complicating pregnancy, second trimester; Z79.82 Long term (current) use of aspirin; Z79.899 Other long term (current) drug therapy; Z88.1 Allergy status to other antibiotic agents; Z88.5 Allergy status to narcotic agent; Z88.8 Allergy status to other drugs, medicaments and biological substances; Z91.040 Latex allergy status; Z91.09 Other allergy status, other than to drugs and biological substances; O99.112 Other diseases of the blood and blood-forming organs and certain disorders involving the immune mechanism complicating pregnancy, second trimester; M32.9 Systemic lupus erythematosus, unspecified; O24.912 Unspecified diabetes mellitus in pregnancy, second trimester; Z79.84 Long term (current) use of oral hypoglycemic drugs

== ENCOUNTER 2020-03-05 14:06 | Outpatient (CLI) | payer OTHER ==
[~2020-03-05] VITALS: Ht 162.6 cm; Wt 125.1 kg
[~2020-03-05 14:06] MED LIST changes: +ASPI81TA85 PO; +MAGN400T2 PO; +PRED10TA2 PO; +PRENTAB9 PO; +VITA50005 PO
[2020-03-05 14:28] VITALS: BP 106/54
[2020-03-05 15:36] LABS: APPEARANCE, URINE HAZY (CLEAR); BACTERIA, URINE AUTO 1+ (NEGATIVE); BILIRUBIN, URINE AUTO NEGATIVE (NEGATIVE); BLOOD, URINE BLOOD NEGATIVE (NEGATIVE); COLOR, URINE YELLOW (YELLOW); GLUCOSE, URINE (UA) AUTO NEGATIVE (NEGATIVE); KETONE, URINE AUTO NEGATIVE (NEGATIVE); LEUKOCYTE ESTERASE, URINE AUTO NEGATIVE (NEGATIVE); MUCUS, URINE SMALL (NEGATIVE); NITRITE, URINE AUTO NEGATIVE (NEGATIVE); PROTEIN, URINE AUTO NEGATIVE (NEGATIVE); RBC, URINE AUTO 0 /HPF (0-3); SPECIFIC GRAVITY URINE AUTO 1.006 (1.002-1.035); SQUAMOUS EPITHELIAL CELL UR AU 1 /HPF (0-6); UROBILINOGEN, URINE AUTO 0.2 mg/dL (0.0-2.0); WBC, URINE AUTO 3 /HPF (0-3)
--- NOTE | 2020-03-05 15:38 | IPNPDOC ---
Text Note Date of Service The patient was seen on 03/05/20. NOTE Outpatient 29yo (3) RAQUEL 07/05/2020. Presents @ 22w4d with complaints of cramping along section scar and LOF x 3 days. Denies recent IC. States fetus is active, but less than usual. States she wears a pad to bed and it is completely wet when she wakes. Hx significant for section x 4, all between 30-36 wks. Also Lupus, epilepsy, PTSD, depression, essential HTN. Surgeries appy, GB, tonsils and dental work. Resting comfortably in bed. NAD VSS, normotensive. FH 150, abdomen soft, gravid, obese No UC Spec exam, moderate white creamy discharge. Neg pool, neg valsalva, neg fern, neg nitrazine. Cervix visually LTC. Sono shows SIUP, breech. FH 135. ADEN 19.5, S/D ratio 2.69 Pt discharged home. Instructed it is most likely vaginal discharge combined with urine. Pt reports having appt next week at [facility]. Warnings reviewed. VS,Fishbone, I+O VS, Fishbone, I+O Vital Signs Date Time Temp Pulse Resp B/P (MAP) Pulse Ox O2 Delivery O2 Flow Rate FiO2 03/05/20 14:28 98.8 148 20 106/54 (71) Room Air Nery Monteiro CNM Mar 05, 2020 15:23
[2020-03-05 16:54] VITALS: BP 109/55
--- NOTE | 2020-03-06 08:58 | REP ---
REASON: Limited OB ultrasound to assesses amniotic fluid level: Multiple ultrasonographic images of the gravid uterus show a single living intrauterine gestation in a breech presentation. Doppler interrogation of the heart shows a heart rate of 135 beats per minute. The placenta is anterior and not low lying. The subjective amniotic fluid volume is within normal limits. The calculated amniotic fluid index is 19.5 with an expected range 9.8 to 21.7. Doppler interrogation of the umbilical artery shows an A/B ratio of 2.69. This is slightly below the normal range of 2.9 to 4.1. No further evaluation was requested or performed. IMPRESSION: Limited OB ultrasound as described above. Electronically Signed by Piotr Farris DO 03/08/2020 07:53 A
== END 2020-03-05 16:35 | disposition home or self-care (01) ==
LOC: M LDO 14:06
PROVIDERS: ATTEND Advanced Practice Midwife
DX: O26.892 Other specified pregnancy related conditions, second trimester (principal); N89.8 Other specified noninflammatory disorders of vagina; O36.8120 Decreased fetal movements, second trimester, not applicable or unspecified; Z3A.22 22 weeks gestation of pregnancy

== ENCOUNTER 2020-04-07 20:25 | Outpatient (CLI) | payer OTHER ==
[~2020-04-07] VITALS: Ht 162.6 cm; Wt 128.3 kg
[2020-04-07 20:34] VITALS: BP 168/104
[2020-04-07 20:51] VITALS: BP 138/84
[2020-04-07 21:18] VITALS: BP 136/84
[2020-04-07 22:01] VITALS: BP 146/77
--- NOTE | 2020-04-07 22:23 | REPVR ---
PROCEDURE INFORMATION: Exam: US , Limited Exam date and time: 04/07/2020 9:59 PM Age: 29 years old Clinical indication: Pain; Other: Leaking fluid; Gestational age or lmp: 27; ; Additional info: Question rupture of membranes, aden TECHNIQUE: Imaging protocol: Real-time ultrasound of the maternal uterus with image documentation. Exam focused on the clinical indication. COMPARISON: Obs. Limited, ADEN US 03/05/2020 3:44 PM FINDINGS: There is a knight fetus in breech presentation. The heart rate was measured at 153 beats per minute. A detailed anatomic survey and evaluation for dates were not performed on this examination. The umbilical arterial S/D ratio is 1.84, which is somewhat low for the gestational age. The placenta is anterior in location. There is an adequate amount of amniotic fluid. The ADEN is 13.4 cm. The cervix is closed and measures approximately 4.8 cm in length. IMPRESSION: Single viable intrauterine gestation in breech presentation, as described above. ADEN is 13.4 cm. Umbilical arterial S/D ratio is 1.84, which is somewhat low for the gestational age. Clinical correlation and follow-up as to placental insufficiency is recommended. Electronically signed by: Edson Chaves On 04/07/2020 22:23:06 PM
[2020-04-07] MEDS ORDERED: PERCOCET 5MG/325MG TAB PO ONE (23:30)
[2020-04-07 23:41] VITALS: BP 148/94
[2020-04-08] MEDS ORDERED: levETIRAcetam 250MG TABLET (KEPPRA) PO SCH (00:15)
[2020-04-08 00:22] VITALS: BP 127/88
[2020-04-08 01:29] LABS: APPEARANCE, URINE CLEAR (CLEAR); BACTERIA, URINE AUTO 1+ (NEGATIVE); BILIRUBIN, URINE AUTO NEGATIVE (NEGATIVE); BLOOD, URINE BLOOD NEGATIVE (NEGATIVE); COLOR, URINE YELLOW (YELLOW); GLUCOSE, URINE (UA) AUTO NEGATIVE (NEGATIVE); KETONE, URINE AUTO 1+ mg/dL (NEGATIVE); LEUKOCYTE ESTERASE, URINE AUTO NEGATIVE (NEGATIVE); MUCUS, URINE SMALL (NEGATIVE); NITRITE, URINE AUTO NEGATIVE (NEGATIVE); PROTEIN, URINE AUTO NEGATIVE (NEGATIVE); RBC, URINE AUTO 0 /HPF (0-3); SPECIFIC GRAVITY URINE AUTO 1.021 (1.002-1.035); SQUAMOUS EPITHELIAL CELL UR AU 3 /HPF (0-6); UROBILINOGEN, URINE AUTO 0.2 mg/dL (0.0-2.0); WBC, URINE AUTO 1 /HPF (0-3)
[2020-04-08 01:57] LABS: AMPHETAMINES URINE REFLEX NEGATIVE (NEGATIVE); BENZODIAZEPINES URINE REFLEX NEGATIVE (NEGATIVE); CANNABINOIDS URINE REFLEX NEGATIVE (NEGATIVE); COCAINE METABOLITE URINE REFLE NEGATIVE (NEGATIVE); METHADONE URINE REFLEX NEGATIVE (NEGATIVE); OPIATES URINE REFLEX NEGATIVE (NEGATIVE); PHENCYCLIDINE URINE REFLEX NEGATIVE (NEGATIVE)
[2020-04-08 01:59] LABS: BARBITURATES URINE REFLEX PENDING CONFIRMATION (NEGATIVE)
[2020-04-08 02:31] VITALS: BP 160/85
[2020-04-08 02:34] VITALS: BP 138/76
[2020-04-08 04:21] VITALS: BP 139/87
[2020-04-12 11:07] LABS: Amobarbital Negative (Cutoff=200); Barbiturates Positive (.); Butalbital Positive (.); GC Butalbital 1413 ng/mL (Cutoff=200); Pentobarbital Negative (Cutoff=200); Secobarbital Negative (Cutoff=200)
== END 2020-04-08 04:21 | disposition home or self-care (01) ==
LOC: M LDO 20:25 → M LDI 21:02 → UNDOADMIN 21:02 → M LDO 04-08 04:21
PROVIDERS: ATTEND Advanced Practice Midwife
DX: O26.892 Other specified pregnancy related conditions, second trimester (principal); R10.30 Lower abdominal pain, unspecified; O47.02 False labor before 37 completed weeks of gestation, second trimester; Z3A.27 27 weeks gestation of pregnancy
CPT/HCPCS: 59025; 76815; 76820; 80307; 81001; 87086; G0480

== ENCOUNTER 2020-05-03 20:37 | Outpatient (CLI) | payer OTHER ==
[2020-05-03 20:48] VITALS: BP 139/94
--- NOTE | 2020-05-03 21:45 | IPNPDOC ---
Text Note Date of Service The patient was seen on 05/03/20. NOTE Subjective: Patient is a 29-year-old female who is a at 31 weeks gestation with an RAQUEL of 07/05/20 based on her LMP and consistent with her first trimester ultrasound. Her has been complicated by SLE, seizure disorder, CHTN, obesity, asthma, anxiety, depression and fibromylagia. She presents to L&D after having a "foggy" episode while standing on the stairs. She reports she thinks she only fell down a few stairs and reports she is unsure if she hit her abdomen. Denies losing consciousness but states she is having a lupus flair, which she reports is making her have foggy episodes. She denies any abdominal pain beyond her pain at her incision site that she always have. Reports this pain hasn't increased in intensity. She reports decreased m ovement but she reports she is having a hard time concentrating on movement due to the pain in her ankle. She thinks she broke her right ankle. Pain in her ankle is 10/10 per patient. She denies leaking of fluid or vaginal bleeding. Ghada does report active movement since being in department. 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 Current medications: Keppra 1500mg, albuterol, ASA 81mg, Cetirizine 10 mg, Fluoxetine 20 mg, metformin 500mg, Lyrica 75 mg, Seroquel 25 mg, Seroquel 200mg, Vitamin D 1. 25 mg, clonazepam 0.5mg O: VS, labs, and ultrasound: see below. FHR: 135, moderate variability, positive accelerations, no decelerations. Contractions: none. A+Ox3; Respiratory rate is regular with no use of accessory muscles. Abdomen: morbidly obese, gravid, soft and nontender to palpation. No bruising noted on abdomen or hips. Right ankle is swollen without ecchymosis. Pain noted with palpation of right ankle. Left ankle has no swelling. A: IUP at 31 weeks gestation, fall on stairs, decreased movement, Category I FHR tracing, P: KB and CBC ordered. Stat BPP and limited ultrasound to view placenta ordered for bedside. Once we know fetus is stable she will be transferred back to the ED for evaluation of her ankle. Reviewed danger signs with patient. Patient has follow-up appointment in [place] tomorrow and encouraged to go to appointment. Reviewed findings of ultrasound with lower normal levels of ADEN. We will do EFM prior to patient's departure from ED. Extensive education done on kick counts, labor signs, and danger signs to report. Patient discharged to ED. VS,Fishbone, I+O VS, Fishbone, I+O Vital Signs Date Time Temp Pulse Resp B/P (MAP) Pulse Ox O2 Delivery O2 Flow Rate FiO2 05/03/20 20:48 97.9 113 18 139/94 (109) Item Value Date Time White Blood Count 14.4 10^3/uL H 05/03/202141 Red Blood Count 4.11 10^6/uL 05/03/202141 Hemoglobin 10.9 g/dl L 05/03/202141 Hematocrit 33.3 % L 05/03/202141 Mean Corpuscular Volume 81.0 fl 05/03/202141 Mean Corpuscular Hemoglobin 26.5 pg L 05/03/202141 Mean Corpuscular Hemoglobin Concent 32.7 g/dl 05/03/202141 Red Cell Distribution Width 13.6 % 05/03/202141 Platelet Count 246 10^3/uL 05/03/202141 Result Comment: No cells seen. /Adult Volume of Vials of Rhogam RBC Ratio FM Indicated 0.0000-0.0045 up to 15 mL 1 0.0046-0.0090 15-30 mL 2 0.0091-0.0135 30-45 mL 3 0.0136-0.0180 45-60 mL 4 0.0181-0.0225 60-75 mL 5 For each ratio interval of 0.0045, one additional vial of Rhogam is indicated. PROCEDURE INFORMATION: Exam: US Biophysical Profile Without Non-Stress Test Exam date and time: 05/03/2020 9:52 PM Age: 29 years old Clinical indication: status abnormalities: ; movements, decreased; Single gestation; Third trimester (28 wks 0 days until delivery); ; Additional info: Fall with decreased movement TECHNIQUE: Imaging protocol: US biophysical profile without non-stress testing. COMPARISON: Obs. Limited, [facility] 04/07/2020 9:46 PM FINDINGS: Heart rate: heart rate 158 bpm. Presentation: Transverse lie, head to with maternal left. Placenta: Anterior placenta without evidence of placenta previa or abruption. Grade 1 changes. BIOPHYSICAL PROFILE: Breathin/2 Gross body movements: 2/2 tone: 2/2 Qualitative amniotic fluid: 2/2 Quantitative amniotic fluid volume index 8.1 cm, low normal Biophysical Profile Score: 8/8 BIOMETRY: Estimated gestational age: Gestational age based on LMP is 31 weeks. RAQUEL 07/05/2020. MATERNAL ANATOMY: Cervix: Cervical length 5 cm without bulging membranes or funneling. IMPRESSION: 1. Biophysical profile score of 8/8. 2. Current gestational age 31 weeks. Electronically signed by: Turner Crow On 05/03/2020 22:04:34 PM BEVERLY CRUZ CNM May 03, 2020 21:45
[2020-05-03 21:52] LABS: HEMATOCRIT 33.3 % (36.0-47.0); HEMOGLOBIN 10.9 g/dl (12.0-15.5); MEAN CORPUSCULAR HEMOGLOBIN 26.5 pg (27.0-33.0); MEAN CORPUSCULAR HGB CONC 32.7 g/dl (32.0-36.5); PLATELET COUNT, AUTOMATED 246 10^3/uL (150-450); RED BLOOD COUNT 4.11 10^6/uL (4.00-5.40); WHITE BLOOD COUNT 14.4 10^3/uL (4.0-10.0)
--- NOTE | 2020-05-03 22:04 | REPVR ---
PROCEDURE INFORMATION: Exam: US Biophysical Profile Without Non-Stress Test Exam date and time: 05/03/2020 9:52 PM Age: 29 years old Clinical indication: status abnormalities: ; movements, decreased; Single gestation; Third trimester (28 wks 0 days until delivery); ; Additional info: Fall with decreased movement TECHNIQUE: Imaging protocol: US biophysical profile without non-stress testing. COMPARISON: Obs. Limited, ADEN US 04/07/2020 9:46 PM FINDINGS: Heart rate: heart rate 158 bpm. Presentation: Transverse lie, head to with maternal left. Placenta: Anterior placenta without evidence of placenta previa or abruption. Grade 1 changes. BIOPHYSICAL PROFILE: Breathin/2 Gross body movements: 2/2 tone: 2/2 Qualitative amniotic fluid: 2/2 Quantitative amniotic fluid volume index 8.1 cm, low normal Biophysical Profile Score: 8/8 BIOMETRY: Estimated gestational age: Gestational age based on LMP is 31 weeks. RAQUEL 07/05/2020. MATERNAL ANATOMY: Cervix: Cervical length 5 cm without bulging membranes or funneling. IMPRESSION: 1. Biophysical profile score of 8/8. 2. Current gestational age 31 weeks. Electronically signed by: Turner Crow On 05/03/2020 22:04:34 PM
[2020-05-03] MEDS ORDERED: VITA-145 PO (23:07)
[2020-05-03] MEDS ORDERED: LEVE750T5 PO (23:07)
[2020-05-03] MEDS ORDERED: NEXI20CA PO (23:07)
[2020-05-04] MEDS ORDERED: PERC5TAB12 PO (00:46)
== END 2020-05-03 23:30 | disposition home or self-care (01) ==
LOC: M LDO 20:37
PROVIDERS: ATTEND Advanced Practice Midwife
DX: Z04.3 Encounter for examination and observation following other accident (principal); O36.8130 Decreased fetal movements, third trimester, not applicable or unspecified; O99.113 Other diseases of the blood and blood-forming organs and certain disorders involving the immune mechanism complicating pregnancy, third trimester; O34.211 Maternal care for low transverse scar from previous cesarean delivery; O10.013 Pre-existing essential hypertension complicating pregnancy, third trimester; O99.213 Obesity complicating pregnancy, third trimester; O99.513 Diseases of the respiratory system complicating pregnancy, third trimester; O99.343 Other mental disorders complicating pregnancy, third trimester; O26.893 Other specified pregnancy related conditions, third trimester; E66.9 Obesity, unspecified; F32.9 Major depressive disorder, single episode, unspecified; J45.909 Unspecified asthma, uncomplicated; M32.9 Systemic lupus erythematosus, unspecified; M79.7 Fibromyalgia; Z3A.31 31 weeks gestation of pregnancy; Z87.891 Personal history of nicotine dependence; Z88.8 Allergy status to other drugs, medicaments and biological substances

== ENCOUNTER 2020-05-03 22:42 | Emergency (ER) | payer OTHER ==
[2020-05-03] MEDS ORDERED: VITA-145 PO (23:07)
[2020-05-03] MEDS ORDERED: NEXI20CA PO (23:07)
[2020-05-03] MEDS ORDERED: LEVE750T5 PO (23:07)
[2020-05-03] MEDS ORDERED: PERCOCET 5MG/325MG TAB PO ONE (23:45)
[2020-05-04] MEDS ORDERED: OXYCODONE/APAP 5MG/325MG(BULK FOR ED) 1 TABLET PO ONE (00:15)
[2020-05-04] MEDS ORDERED: PERC5TAB12 PO (00:46)
[2020-05-04 00:49] VITALS: BP 157/95
--- NOTE | 2020-05-04 08:32 | REP ---
Right ankle: Forced views. History: Pain and swelling. Findings: There is an obliquely oriented fracture through the distal fibula which is slightly diastatic and shows at 2-3 mm of posterolateral displacement. No tibial fracture is appreciated. The associated soft-tissue swelling. Ankle mortise is intact. Impression: Oblique fracture distal fibular metaphysis with a 2-3 mm of displacement and associated soft-tissue swelling. Electronically Signed by Luis Cardona MD 05/04/2020 08:23 A
== END 2020-05-04 00:55 | disposition home or self-care (01) ==
LOC: M ED 22:42
DX: S82.491A Other fracture of shaft of right fibula, initial encounter for closed fracture (principal); W18.30XA Fall on same level, unspecified, initial encounter; Y92.9 Unspecified place or not applicable

== ENCOUNTER 2020-06-11 21:30 | Emergency (ER) | payer OTHER ==
[~2020-06-11 21:30] MED LIST changes: -ALL10TAB29 PO; -ASPI81TA85 PO; +ASPI81TA86 PO; +CETI-24 PO; +LEVE750T5 PO; +NEXI20CA PO; +PERC5TAB12 PO; +VITA-145 PO
[2020-06-11] MEDS ORDERED: MORPHINE 4 MG/ML 1ML VIAL/SYRINGE (J2270) ONE (22:30)
[2020-06-11] MEDS ORDERED: ONDANSETRON 4MG/2ML VIAL ONE (22:30)
[2020-06-12] MEDS ORDERED: MORPHINE 4 MG/ML 1ML VIAL/SYRINGE (J2270) ONE (00:19)
[2020-06-12] MEDS ORDERED: NORCO 5/325MG TABLET (BULK FOR ED) ONE (01:42)
[2020-06-12] MEDS ORDERED: CEPHALEXIN 500 MG CAP ONE (01:42)
[2020-07-18 17:08] LABS: BASO % 0.2 % (0.0-1.0); EOS % 0.1 % (0.0-3.0); HEMATOCRIT 34.3 % (36.0-47.0); HEMOGLOBIN 10.8 g/dl (12.0-15.5); LYMPH # 1.8 10^3/uL (1.5-5.0); LYMPH % 13.4 % (24.0-44.0); MEAN CORPUSCULAR HEMOGLOBIN 25.7 pg (27.0-33.0); MEAN CORPUSCULAR HGB CONC 31.5 g/dl (32.0-36.5); MEAN CORPUSCULAR VOLUME 81.7 fl (80.0-96.0); MONO # 0.3 10^3/uL (0.0-0.8); MONO % 2.3 % (0.0-5.0); NEUTROPHILS # 11.3 10^3/uL (1.5-8.5); NEUTROPHILS % 82.9 % (36.0-66.0); PLATELET COUNT, AUTOMATED 309 10^3/uL (150-450); WHITE BLOOD COUNT 13.7 10^3/uL (4.0-10.0)
--- NOTE | 2020-07-29 11:37 | ECGEPIP ---
SINUS TACHYCARDIA NONSPECIFIC T-WAVE ABNORMALITY ABNORMAL RHYTHM ECG INTERPRETATION BASED ON A DEFAULT AGE OF 40 YEARS NO OLD AVAILABLE SEE SCANNED DOWNTIME REPORT MTDD
[2020-08-11 12:33] LABS: CHLAMYDIA DNA AMPLIFICATION NEGATIVE (NEGATIVE); GC DNA AMPLIFICATION NEGATIVE (NEGATIVE)
[2020-08-21 11:08] LABS: ALBUMIN 3.1 GM/DL (3.2-5.2); ALT/SGPT 19 U/L (12-78); BILIRUBIN,DIRECT < 0.1 MG/DL (0.0-0.2); BILIRUBIN,TOTAL < 0.1 MG/DL (0.2-1.0); BLOOD UREA NITROGEN 8 MG/DL (7-18); CARBON DIOXIDE LEVEL 22 MEQ/L (21-32); CHLORIDE LEVEL 111 MEQ/L (98-107); CREATININE FOR GFR 0.64 MG/DL (0.55-1.30); GLOMERULAR FILTRATION RATE > 60.0 (>60); GLUCOSE, FASTING 106 MG/DL (70-100); POTASSIUM SERUM 4.2 MEQ/L (3.5-5.1); SODIUM LEVEL 142 MEQ/L (136-145); TOTAL PROTEIN 6.7 GM/DL (6.4-8.2)
== END 2020-06-12 01:50 | disposition home or self-care (01) ==
LOC: EDBD → M ED 21:30
DX: O99.73 Diseases of the skin and subcutaneous tissue complicating the puerperium (principal); R00.0 Tachycardia, unspecified; R94.31 Abnormal electrocardiogram [ECG] [EKG]; Z79.84 Long term (current) use of oral hypoglycemic drugs; Z79.899 Other long term (current) drug therapy; Z88.8 Allergy status to other drugs, medicaments and biological substances; Z91.040 Latex allergy status; Z91.018 Allergy to other foods
CPT/HCPCS: 76830; 76856; 80048; 80076; 83605; 85025; 87040; 87210; 87491; 87591; 93005; 96374; 96375; 96376; 99284; J2270; J2405

== ENCOUNTER 2020-06-15 13:23 | Emergency (ER) | payer OTHER ==
[2020-06-15] MEDS ORDERED: ACETAMINOPHEN 325 MG TAB As Ordered ONE (13:52)
[2020-06-15] MEDS ORDERED: ACETAMINOPHEN 325 MG TAB ONE (14:00)
[2020-06-15] MEDS ORDERED: traMADol 50 MG TAB ONE (14:00)
[2020-06-15] MEDS ORDERED: traMADol 50 MG TAB As Ordered ONE (15:01)
[2020-07-13 16:13] LABS: HEMATOCRIT 35.3 % (36.0-47.0); HEMOGLOBIN 11.1 g/dl (12.0-15.5); MEAN CORPUSCULAR HEMOGLOBIN 26.3 pg (27.0-33.0); MEAN CORPUSCULAR HGB CONC 31.4 g/dl (32.0-36.5); MEAN CORPUSCULAR VOLUME 83.6 fl (80.0-96.0); PLATELET COUNT, AUTOMATED 280 10^3/uL (150-450); RED BLOOD COUNT 4.22 10^6/uL (4.00-5.40); WHITE BLOOD COUNT 14.6 10^3/uL (4.0-10.0)
== END 2020-06-15 16:41 | disposition home or self-care (01) ==
LOC: EDBD → M ED 13:23
DX: G89.18 Other acute postprocedural pain (principal); R10.9 Unspecified abdominal pain; M32.9 Systemic lupus erythematosus, unspecified; Z91.018 Allergy to other foods; Z91.040 Latex allergy status; Z79.899 Other long term (current) drug therapy

== ENCOUNTER 2020-06-18 14:55 | Emergency (ER) | payer OTHER ==
[2020-06-18] MEDS ORDERED: MORPHINE 2 MG/ML 1ML VIAL (J2270) As Ordered ONE (15:41)
[2020-06-18] MEDS ORDERED: LABETALOL 100MG/20ML VIAL As Ordered ONE (15:41)
[2020-06-18] MEDS ORDERED: LABETALOL 100MG/20ML VIAL ONE (15:50)
[2020-06-18] MEDS ORDERED: MORPHINE 2 MG/ML 1ML VIAL (J2270) ONE (15:50)
[2020-06-18] MEDS ORDERED: ZOSYN 3.375GM VIAL (J2543) As Ordered ONE (17:17)
[2020-06-18] MEDS ORDERED: PERCOCET 5MG/325MG TAB ONE (17:20)
[2020-06-18] MEDS ORDERED: ACETAMINOPHEN 500 MG TAB ONE (17:20)
[2020-06-18] MEDS ORDERED: ZOSYN 3.375GM VIAL (J2543) ONE (17:20)
[2020-06-18] MEDS ORDERED: ACETAMINOPHEN 500 MG TAB As Ordered ONE (17:30)
[2020-06-18] MEDS ORDERED: PERCOCET 5MG/325MG TAB As Ordered ONE (20:55)
[2020-08-01 15:39] LABS: PROTHROMBIN TIME 12.9 SECONDS (12.5-14.3)
[2020-08-01 15:40] LABS: INR 0.95
[2020-08-01 15:41] LABS: PARTIAL THROMBOPLASTIN TIME 169.2 SECONDS (24.2-38.5)
[2020-08-01 15:46] LABS: BASO # 0.1 10^3/uL (0.0-0.2); BASO % 0.4 % (0.0-1.0); EOS # 0.3 10^3/uL (0.0-0.5); EOS % 1.9 % (0.0-3.0); HEMATOCRIT 38.4 % (36.0-47.0); LYMPH % 19.5 % (24.0-44.0); MEAN CORPUSCULAR HGB CONC 31.3 g/dl (32.0-36.5); MEAN CORPUSCULAR VOLUME 83.1 fl (80.0-96.0); MONO # 0.5 10^3/uL (0.0-0.8); MONO % 3.5 % (0.0-5.0); NEUTROPHILS # 11.2 10^3/uL (1.5-8.5); NEUTROPHILS % 74.2 % (36.0-66.0); PLATELET COUNT, AUTOMATED 324 10^3/uL (150-450); RED BLOOD COUNT 4.62 10^6/uL (4.00-5.40); WHITE BLOOD COUNT 15.1 10^3/uL (4.0-10.0)
[2020-08-01 15:47] LABS: ERYTHROCYTE SEDIMENTATION RATE 23 mm/hr (0-20)
[2020-09-06 12:14] LABS: ALBUMIN 3.4 GM/DL (3.2-5.2); ALT/SGPT 20 U/L (12-78); BILIRUBIN,DIRECT 0.1 MG/DL (0.0-0.2); BILIRUBIN,TOTAL 0.1 MG/DL (0.2-1.0); BLOOD UREA NITROGEN 10 MG/DL (7-18); C REACTIVE PROTEIN QUANTITATIV 2.14 MG/DL (0.00-0.30); CALCIUM LEVEL 9.6 MG/DL (8.5-10.1); CARBON DIOXIDE LEVEL 24 MEQ/L (21-32); CHLORIDE LEVEL 110 MEQ/L (98-107); CREATININE FOR GFR 0.61 MG/DL (0.55-1.30); GLOMERULAR FILTRATION RATE > 60.0 (>60); LIPASE 168 U/L (73-393); MAGNESIUM LEVEL 1.9 MG/DL (1.8-2.4); POTASSIUM SERUM 3.8 MEQ/L (3.5-5.1); SODIUM LEVEL 141 MEQ/L (136-145); TOTAL PROTEIN,RANDOM URINE 41.4 MG/DL (0.0-12.0)
[2020-09-06 12:17] LABS: GLUCOSE, FASTING 86 MG/DL (70-100)
== END 2020-06-18 21:40 | disposition home or self-care (01) ==
LOC: EDBD → M ED 14:55
DX: L76.22 Postprocedural hemorrhage of skin and subcutaneous tissue following other procedure (principal); L03.311 Cellulitis of abdominal wall; I10 Essential (primary) hypertension; E11.9 Type 2 diabetes mellitus without complications; F33.9 Major depressive disorder, recurrent, unspecified; F41.9 Anxiety disorder, unspecified; Z88.8 Allergy status to other drugs, medicaments and biological substances; Z88.6 Allergy status to analgesic agent; Z79.899 Other long term (current) drug therapy; Z79.84 Long term (current) use of oral hypoglycemic drugs
CPT/HCPCS: 76857; 80048; 80076; 82570; 83690; 83735; 84156; 85025; 85610; 85652; 85730; 86140; 96374; 96375; 99284; J2270; J2543

== ENCOUNTER 2020-08-12 21:51 | Emergency (ER) | payer OTHER ==
[~2020-08-12] VITALS: Ht 162.6 cm; Wt 123.6 kg
[2020-08-12] MEDS ORDERED: PERCOCET 5MG/325MG TAB PO ONE (23:00)
[2020-08-12] MEDS ORDERED: BACITRACIN OINTMENT 30GM TUBE TOP STA (23:07)
[2020-08-12] MEDS ORDERED: BACI500O21 TOP (23:57)
[2020-08-12] MEDS ORDERED: PERC5TAB12 PO (23:57)
[2020-08-13] MEDS ORDERED: OXYCODONE/APAP 5MG/325MG(BULK FOR ED) 1 TABLET PO ONE
[2020-08-13] MEDS ORDERED: BACI500O21 TOP (00:12)
[2020-08-13 00:22] VITALS: BP 133/87
[2020-08-14] MEDS ORDERED: LIDO4CRE4 TOP (13:06)
== END 2020-08-13 00:24 | disposition home or self-care (01) ==
LOC: EDBD → M ED 21:51
DX: T24.211A Burn of second degree of right thigh, initial encounter (principal); T31.0 Burns involving less than 10% of body surface; X12.XXXA Contact with other hot fluids, initial encounter; Y92.019 Unspecified place in single-family (private) house as the place of occurrence of the external cause; Y93.E5 Activity, floor mopping and cleaning; Y99.9 Unspecified external cause status; I10 Essential (primary) hypertension; G43.909 Migraine, unspecified, not intractable, without status migrainosus; G40.909 Epilepsy, unspecified, not intractable, without status epilepticus; Z88.8 Allergy status to other drugs, medicaments and biological substances; Z91.040 Latex allergy status; Z79.51 Long term (current) use of inhaled steroids; Z79.899 Other long term (current) drug therapy

== ENCOUNTER 2020-08-14 10:14 | Emergency (ER) | payer OTHER ==
[~2020-08-14] VITALS: Ht 162.6 cm; Wt 125.3 kg
[~2020-08-14 10:14] MED LIST changes: +BACI500O21 TOP
[2020-08-14 12:01] LABS: BASO # 0.1 10^3/uL (0.0-0.2); BASO % 0.5 % (0.0-1.0); EOS # 0.4 10^3/uL (0.0-0.5); EOS % 3.8 % (0.0-3.0); HEMOGLOBIN 11.8 g/dl (12.0-15.5); LYMPH # 2.2 10^3/uL (1.5-5.0); LYMPH % 23.4 % (24.0-44.0); MEAN CORPUSCULAR HEMOGLOBIN 25.3 pg (27.0-33.0); MEAN CORPUSCULAR HGB CONC 31.1 g/dl (32.0-36.5); MEAN CORPUSCULAR VOLUME 81.4 fl (80.0-96.0); MONO # 0.6 10^3/uL (0.0-0.8); MONO % 6.3 % (0.0-5.0); NEUTROPHILS # 6.3 10^3/uL (1.5-8.5); NEUTROPHILS % 65.8 % (36.0-66.0); PLATELET COUNT, AUTOMATED 332 10^3/uL (150-450); RED BLOOD COUNT 4.67 10^6/uL (4.00-5.40); WHITE BLOOD COUNT 9.5 10^3/uL (4.0-10.0)
[2020-08-14 12:14] LABS: ALBUMIN 3.7 GM/DL (3.2-5.2); ALT/SGPT 128 U/L (12-78); BILIRUBIN,DIRECT < 0.1 MG/DL (0.0-0.2); BILIRUBIN,TOTAL 0.3 MG/DL (0.2-1.0); C REACTIVE PROTEIN QUANTITATIV 3.81 MG/DL (0.00-0.30); TOTAL PROTEIN 7.3 GM/DL (6.4-8.2)
[2020-08-14 12:26] LABS: ERYTHROCYTE SEDIMENTATION RATE 46 mm/hr (0-20)
[2020-08-14] MEDS ORDERED: NORCO, ANEXSIA 5/325MG TABLET (HYDROcodone/ACETAMINOPHEN) PO ONE (13:00)
[2020-08-14] MEDS ORDERED: LIDO4CRE4 TOP (13:06)
[2020-08-14 13:11] VITALS: BP 122/74
[2020-08-14] MEDS ORDERED: NEOSPORIN OINT 0.9 GM PKT As Ordered ONE (13:18)
== END 2020-08-14 13:39 | disposition home or self-care (01) ==
LOC: EDBD → M ED 10:14
DX: T24.211A Burn of second degree of right thigh, initial encounter (principal); T31.0 Burns involving less than 10% of body surface; D57.219 Sickle-cell/Hb-C disease with crisis, unspecified; F43.10 Post-traumatic stress disorder, unspecified; F32.9 Major depressive disorder, single episode, unspecified; I10 Essential (primary) hypertension; E03.9 Hypothyroidism, unspecified; Z79.51 Long term (current) use of inhaled steroids; Z79.891 Long term (current) use of opiate analgesic; Z79.899 Other long term (current) drug therapy; Z88.8 Allergy status to other drugs, medicaments and biological substances; Z91.040 Latex allergy status; Y92.9 Unspecified place or not applicable; Y93.9 Activity, unspecified; Y99.9 Unspecified external cause status

== ENCOUNTER 2020-08-26 15:12 | Day surgery (SDC) | payer OTHER ==
[~2020-08-26] VITALS: Ht 162.6 cm; Wt 120.2 kg
[~2020-08-26 15:12] MED LIST changes: +LABE100T4 PO; -LABE10TAB PO; +LIDO4CRE4 TOP; +LR 1,000 ML IV SCH
[2020-08-26] MEDS ORDERED: propofoL 200 MG/20 ML VIAL As Ordered ONE (16:18)
[2020-08-26] MEDS ORDERED: ONDANSETRON 4MG/2ML VIAL As Ordered ONE (16:18)
[2020-08-26] MEDS ORDERED: KETOROLAC 60MG 2ML VIAL As Ordered ONE (16:18)
[2020-08-26] MEDS ORDERED: fentaNYL 100 MCG/2 ML INJECTION (J3010) As Ordered ONE ×2 (16:18→17:40)
[2020-08-26] MEDS ORDERED: MIDAZOLAM INJ 2MG/2ML VIAL (J2250 PER 1MG) As Ordered ONE (16:18)
[2020-08-26] MEDS ORDERED: LIDOCAINE 2% 100MG/5ML SDV (FOR ANES.) As Ordered ONE (16:18)
[2020-08-26] MEDS ORDERED: dexameTHASONE 4 MG/ML 1ML VIAL (J1100 PER 1MG) As Ordered ONE (16:18)
[2020-08-26] MEDS ORDERED: LABETALOL 100MG/20ML VIAL As Ordered ONE (16:53)
[2020-08-26] MEDS: PERCOCET 5MG/325MG TAB PO PRN ×2 (17:40→18:12)
[2020-08-26] MEDS: fentaNYL 100 MCG/2 ML INJECTION (J3010) IV PRN ×4 (17:40→18:03)
[2020-08-26] MEDS ORDERED: PERCOCET 5MG/325MG TAB As Ordered ONE (17:40)
[2020-08-26] MEDS ORDERED: oxyCODONE 5MG TAB PO PRN (18:00)
[2020-08-26] MEDS ORDERED: NALBUPHINE HCL 10 MG/ML AMP (J2300) IV PRN (18:00)
[2020-08-26] MEDS ORDERED: HYDROMORPHONE HCL 0.5 MG/ 0.5 ML SYRINGE (J1170 PER 1) IV PRN (18:00)
[2020-08-26] MEDS ORDERED: KETOROLAC 30 MG/ML 1ML VIAL IV PRN (18:00)
[2020-08-26] MEDS ORDERED: MORPHINE 2 MG/ML 1ML VIAL (J2270) IV PRN (18:00)
[2020-08-26] MEDS ORDERED: LR 1,000 ML IV SCH ×2 (18:00)
[2020-08-26] MEDS ORDERED: PROMETHAZINE INJ 25 MG/ML VIAL (J2550) IV PRN (18:00)
[2020-08-26] MEDS ORDERED: NORCO, ANEXSIA 5/325MG TABLET (HYDROcodone/ACETAMINOPHEN) PO PRN (18:00)
[2020-08-26] MEDS ORDERED: diphenhydrAMINE 50MG/ML VIAL (J1200) IV PRN (18:00)
[2020-08-26] MEDS ORDERED: MEPERIDINE INJ 25 MG/ML VIAL (J2175) IV PRN (18:00)
[2020-08-26] MEDS ORDERED: METOCLOPRAMIDE INJ 10MG/2ML VIAL (J2765 PER 1) IV PRN (18:00)
[2020-08-26] MEDS ORDERED: ONDANSETRON 4MG/2ML VIAL IV PRN (18:00)
[2020-08-26] MEDS ORDERED: IBUPROFEN 600MG TAB PO PRN (18:00)
[2020-08-26] MEDS ORDERED: MORPHINE 10 MG/ML 1ML VIAL (J2270) As Ordered ONE (19:18)
[2020-08-26] MEDS: MORPHINE 4 MG/ML 1ML VIAL/SYRINGE (J2270) IV PRN ×3 (19:20→19:55)
[2020-08-26] MEDS ORDERED: hydrALAZINE 20MG/ML 1ML VIAL (J0360 PER 20MG) As Ordered ONE (20:23)
[2020-08-26] MEDS ORDERED: hydrALAZINE 20MG/ML 1ML VIAL (J0360 PER 20MG) IV SCH (20:45)
[2020-08-26] MEDS ORDERED: METOCLOPRAMIDE INJ 10MG/2ML VIAL (J2765 PER 1) As Ordered ONE (21:43)
[2020-08-26] MEDS ORDERED: PERCOCET 5MG/325MG TAB PO PRN (21:45)
[2020-08-26] MEDS ORDERED: hydrALAZINE 20MG/ML 1ML VIAL (J0360 PER 20MG) IV PRN (21:45)
[2020-08-26] MEDS ORDERED: amLODIPine 10 MG TAB PO ONE (21:45)
[2020-08-26] MEDS ORDERED: amLODIPine 5 MG TAB PO ONE (22:00)
[2020-08-26 22:40] VITALS: BP 162/98
[2020-08-27] VITALS: BP 130/84
[2020-08-27] MEDS ORDERED: D31000TA2 PO (00:31)
[2020-08-27] MEDS ORDERED: IPRA0.00 INH (00:31)
[2020-08-27] MEDS ORDERED: [UNRECOGNIZED DRUG - CODE] EXT (00:31)
[2020-08-27] MEDS ORDERED: SANT250O8 TOP (00:31)
[2020-08-27] MEDS ORDERED: OXYC1TAB23 PO (00:31)
[2020-08-27] MEDS ORDERED: PROAAER10 INH (00:31)
[2020-08-27] MEDS ORDERED: KEPP1TAB2 PO (00:31)
[2020-08-27] MEDS ORDERED: BUTA1TAB48 PO (00:31)
[2020-08-27] MEDS ORDERED: BUSP5TA PO (00:36)
[2020-08-27] MEDS ORDERED: EPIP0.3I2 IM (00:36)
[2020-08-27] MEDS ORDERED: DEBL1TAB PO (00:36)
[2020-08-27] MEDS ORDERED: C 50TAB PO (00:36)
[2020-08-27] MEDS ORDERED: NIFE30TA50 PO (00:36)
[2020-08-27] MEDS ORDERED: FERR325T3 PO (00:36)
[2020-08-27] MEDS ORDERED: hydrALAZINE 20MG/ML 1ML VIAL (J0360 PER 20MG) IV PRN (01:00)
[2020-08-27] MEDS ORDERED: IPRATROPIUM 0.5MG/ALBUTEROL 2.5MG INH SOL UD 3ML (DUONEB) INH PRN (01:30)
[2020-08-27] MEDS ORDERED: CHLORTHALIDONE 25 MG TAB PO ONE (01:45)
[2020-08-27] MEDS ORDERED: QUEtiapine FUMARATE 100 MG TAB PO ONE (02:00)
[2020-08-27] MEDS ORDERED: levETIRAcetam 250MG TABLET (KEPPRA) PO ONE (02:00)
[2020-08-27] MEDS ORDERED: PREGABALIN 75 MG CAP(LYRICA) PO ONE (02:00)
[2020-08-27 04:00] VITALS: BP_SYST 130; BP_SYST 135; BP_DIAS 74; BP_DIAS 84
[2020-08-27] MEDS: PERCOCET 5MG/325MG TAB PO PRN ×2 (05:15→10:30)
[2020-08-27 08:00] VITALS: BP 127/76
[2020-08-27] MEDS ORDERED: QUEtiapine FUMARATE 50 MG TAB PO SCH (08:00)
[2020-08-27] MEDS ORDERED: levETIRAcetam 250MG TABLET (KEPPRA) PO SCH (09:00)
[2020-08-27] MEDS ORDERED: CETIRIZINE (ZyrTEC) 10 MG TAB PO SCH (09:00)
[2020-08-27] MEDS ORDERED: clonazePAM 0.5 MG TAB PO SCH (09:00)
[2020-08-27] MEDS ORDERED: busPIRone 5 MG TAB PO SCH (09:00)
[2020-08-27] MEDS ORDERED: FLUoxetine 20 MG CAP PO SCH (09:00)
[2020-08-27] MEDS ORDERED: NIFEdipine 30 MG XL TAB PO SCH (09:00)
[2020-08-27] MEDS ORDERED: FERROUS SULFATE 325MG TAB PO SCH (09:00)
[2020-08-27 09:17] VITALS: BP 127/76
[2020-08-27] MEDS ORDERED: PREGABALIN 75 MG CAP(LYRICA) PO SCH (21:00)
[2020-08-27] MEDS ORDERED: QUEtiapine FUMARATE 100 MG TAB PO SCH (21:00)
--- NOTE | 2020-08-30 08:30 | RO ---
DATE OF OPERATION: 08/26/2020 PREOPERATIVE DIAGNOSIS/INDICATION FOR SURGERY: Retained IUD and pain. POSTOPERATIVE DIAGNOSIS: Retained IUD and pain. PROCEDURE: D&C, hysteroscopy; IUD removal. SURGEON: Rachel Calvo MD CT TECHNICIAN: None. ANESTHESIA: LMA. BRIEF DESCRIPTION OF PROCEDURE: Ghada was brought to the operating room where sufficient LMA anesthesia was induced. She was draped, prepped and positioned in usual sterile fashion with care taken to be careful of her chemical burn on her thigh and of her ankle injury and boot. Once she was positioned appropriately she was prepped, etc in the usual fashion. After patient ID and such retractor was placed, bladder was emptied. Anterior aspect of the cervix was grasped with single tooth tenaculum. As had already been determined the IUD string was not visible or accessible. The cervix was carefully dilated and the hysteroscope placed and the coiled up string was visible in the lower uterine segment and the IUD was visible in the normal location and pictures of it were taken absolutely lying in the normal plane in the normal optimal IUD position. There was no evidence of it injuring the uterine wall or in an abnormal location in any way. It was absolutely as expected for an IUD other than the string being coiled up in the lower uterine segment. We tried with IUD hook to draw it out but I was not able to. I went ahead with the scope. Using grasper directly through the scope and grabbing the string I blanca it out in that fashion, delivering the IUD intact. This is a ParaGard IUD, was sent for ID to pathology and the procedure was ended. Estimated blood loss for the procedure maybe 2 mL. Fluid replacement Crystalloid. No complications. CONDITION AND DISPOSITION: Ghada tolerated the procedure well. She is recovering in the recovery room in good condition. MTDD
[2020-09-30] MEDS ORDERED: XARE10TA PO (11:00)
== END 2020-08-27 10:35 | disposition home or self-care (01) ==
LOC: M SDC 15:12 → M PCU 22:45 → UNDOADMIN 22:45 → M SDC 08-27 10:35 → UNDODISIN 08-27 10:35
PROVIDERS: ATTEND Obstetrics & Gynecology
DX: T83.84XA Pain due to genitourinary prosthetic devices, implants and grafts, initial encounter (principal); I97.3 Postprocedural hypertension; R56.9 Unspecified convulsions; Y83.1 Surgical operation with implant of artificial internal device as the cause of abnormal reaction of the patient, or of later complication, without mention of misadventure at the time of the procedure; L93.0 Discoid lupus erythematosus; J45.909 Unspecified asthma, uncomplicated; E07.9 Disorder of thyroid, unspecified; G43.909 Migraine, unspecified, not intractable, without status migrainosus; Z79.84 Long term (current) use of oral hypoglycemic drugs; Z79.899 Other long term (current) drug therapy; Z20.828 Contact with and (suspected) exposure to other viral communicable diseases
CPT/HCPCS: 58562; 81025; 87486; 87581; 87633; 87798; 88300; J0360; J1100; J1885; J2250; J2270; J2405; J3010

== ENCOUNTER 2020-09-12 11:09 | Emergency (ER) | payer OTHER ==
[~2020-09-12] VITALS: Ht 162.6 cm; Wt 123.5 kg
[~2020-09-12 11:09] MED LIST changes: +BUSP5TA PO; +BUTA1TAB48 PO; +C 50TAB PO; +D31000TA2 PO; +DEBL1TAB PO; +EPIP0.3I2 IM; +FERR325T3 PO; +IPRA0.00 INH; +KEPP1TAB2 PO; -LABE100T4 PO; +LABE10TAB PO; -LR 1,000 ML IV SCH; +NIFE30TA50 PO; +OXYC1TAB23 PO; +PROAAER10 INH; +SANT250O8 TOP; +[UNRECOGNIZED DRUG - CODE] EXT
[2020-09-12] MEDS ORDERED: NORCO, ANEXSIA 5/325MG TABLET (HYDROcodone/ACETAMINOPHEN) PO ONE (12:30)
[2020-09-12 12:48] LABS: BASO # 0.1 10^3/uL (0.0-0.2); BASO % 0.5 % (0.0-1.0); EOS # 0.5 10^3/uL (0.0-0.5); EOS % 4.2 % (0.0-3.0); HEMATOCRIT 37.5 % (36.0-47.0); HEMOGLOBIN 11.4 g/dl (12.0-15.5); LYMPH # 2.3 10^3/uL (1.5-5.0); LYMPH % 17.9 % (24.0-44.0); MEAN CORPUSCULAR HGB CONC 30.4 g/dl (32.0-36.5); MEAN CORPUSCULAR VOLUME 82.2 fl (80.0-96.0); MONO # 0.7 10^3/uL (0.0-0.8); MONO % 5.1 % (0.0-5.0); NEUTROPHILS # 9.2 10^3/uL (1.5-8.5); NEUTROPHILS % 71.9 % (36.0-66.0); PLATELET COUNT, AUTOMATED 329 10^3/uL (150-450); RED BLOOD COUNT 4.56 10^6/uL (4.00-5.40); WHITE BLOOD COUNT 12.8 10^3/uL (4.0-10.0)
[2020-09-12 13:08] LABS: ERYTHROCYTE SEDIMENTATION RATE 60 mm/hr (0-20)
[2020-09-12 13:15] LABS: ALBUMIN 3.6 GM/DL (3.2-5.2); ALT/SGPT 18 U/L (12-78); BILIRUBIN,TOTAL 0.4 MG/DL (0.2-1.0); BLOOD UREA NITROGEN 8 MG/DL (7-18); CALCIUM LEVEL 9.3 MG/DL (8.5-10.1); CARBON DIOXIDE LEVEL 25 MEQ/L (21-32); CHLORIDE LEVEL 109 MEQ/L (98-107); CREATININE FOR GFR 0.61 MG/DL (0.55-1.30); GLOMERULAR FILTRATION RATE > 60.0 (>60); GLUCOSE, FASTING 98 MG/DL (70-100); POTASSIUM SERUM 3.9 MEQ/L (3.5-5.1); SODIUM LEVEL 141 MEQ/L (136-145); TOTAL PROTEIN 7.1 GM/DL (6.4-8.2)
[2020-09-12] MEDS ORDERED: NORC1TAB7 PO (14:22)
[2020-09-12] MEDS ORDERED: PRED20TA PO (14:22)
[2020-09-12 14:44] VITALS: BP 142/88
== END 2020-09-12 14:46 | disposition home or self-care (01) ==
LOC: M ED 11:09
DX: M32.9 Systemic lupus erythematosus, unspecified (principal); D57.3 Sickle-cell trait; Z79.899 Other long term (current) drug therapy; Z88.8 Allergy status to other drugs, medicaments and biological substances; Z91.040 Latex allergy status

== ENCOUNTER → 2020-09-15 | Outpatient (CLI) | payer OTHER ==
[~2020-09-15] MED LIST changes: +DOK1CAP7 PO; +NORC1TAB7 PO; +PRED20TA PO
--- NOTE | 2020-09-18 23:12 | ECWPNPC ---
PATIENT NAME: WINSOME RODRIGUEZ : 1990 GENDER: FEMALE VISIT DATE: 09/15/2020 DISCHARGE DATE: 09/15/20 1540 VISIT LOCKED DATE TIME: PHYSICIAN: ISATU AZUL RESOURCE: ISATU AZUL REASON FOR APPOINTMENT 1. HEADACHES ..NPC HISTORY OF PRESENT ILLNESS GENERAL: - -30-YEAR-OLD FEMALE IN FOR INITIAL PAIN CONSULT REGARDING MIGRAINES. PATIENT HAS HAD BOTOX INJECTIONS FOR HER MIGRAINES IN THE PAST WITH GOOD RESULTS AND WOULD LIKE TO DISCUSS GETTING THEM AGAIN. PATIENT ADMITS TO DAILY HEADACHES. SHE IS CURRENTLY TAKING FIORICET TO HELP WITH HER HEADACHES. FALL RISK SCREENING: SCREENING :ONE FALL WITH INJURY IN THE PAST YEAR APRIL 2020 FRACTURED RIGHT FOOT, TRIPPED AND FELL AND FRACTURED RIGHT FOOT PAIN SCREENING: PATIENT HAS A COMPLAINT OF ACUTE OR CHRONIC PAIN :NO NURSING NOTE: - -. PAIN CENTER INTAKE QUESTIONS: DO YOU HAVE A HISTORY OF MRSA? :NO DO YOU TAKE A BLOOD THINNERS? :NO DO YOU HAVE ANY BLEEDING DISORDERS? :NO ANY NEW NUMBNESS OR WEAKNESS IN YOUR LEGS OR ARMS? :NO ANY PACEMAKER,DEFIBRILLATOR, OR DORSAL COLUMN STIMULATOR? :NO DO YOU HAVE ANY RASHES OR OPEN SORES? :YES STATES SHE HAS A CHEMICAL BURN ON HER LEG ARE YOU ALLERGIC TO IV DYE? :NO ARE YOU DIABETIC? :NO ANY NEW PROBLEMS WITH YOUR MEDICATIONS? :NO HAVE YOU RECEIVED A VACCINE IN THE PAST 30 DAYS? :YES IF SO WHAT VACCINE AND WHEN? STATES SHE HAD THE TDAP ABOUT ONE MONTH AGO DO YOU PLAN TO RECEIVE A VACCINE IN THE NEXT 21 DAYS? :NO DO YOU NEED ANY PRESCRIPTION? :NO DO YOU TAKE ANY IMMUNOSUPPRESSIVE MEDICATIONS? :NO ANY HISTORY OF SEIZURES? :YES HISTORY OF EPILEPSY LAST SEIZURE WAS JANUARY 2020 ANY HISTORY OF CARDIAC ISSUES OR EVENTS? :YES STATES SHE HAS HAD A TIA IN THE PAST- STATES NO RESIDUAL DO YOU HAVE SLEEP APNEA? :YES DO YOU WEAR A CPAP?NO STATES SHE WAS SUPPOSED TO HAVE A SECOND TEST BUT HAS NOT WENT BACK TO HAVE TEST ANY RECENT HEAD INJURY? :NO DO YOU HAVE ANY NEW INFECTIONS? :NO IS THERE A CHANCE YOU COULD BE ? :NO ARE YOU BREAST FEEDING? :YES CURRENT MEDICATIONS TAKING KEPPRA 750 MG TABLET 2 TABS ORALLY BID TAKING FIORINAL 50-325-40 MG CAPSULE 1 CAPSULE NEEDED ORALLY THREE TIMES DAILY NEEDED TAKING SEROQUEL 50 MG TABLET 1 CAP ORALLY MORNING AND LUNCH TAKING SEROQUEL 300 MG TABLET 1 TABLET AT BEDTIME ORALLY ONCE A DAY TAKING HYDROCHLOROTHIAZIDE 25 MG TABLET 1 TABLET IN THE MORNING ORALLY ONCE A DAY TAKING ALBUTEROL SULFATE HFA 108 (90 BASE) MCG/ACT AEROSOL SOLUTION 1 PUFF NEEDED INHALATION EVERY 4 HRS TAKING PREDNISOLONE _ TABLET 1 TABLET IN THE MORNING WITH FOOD OR MILK ORALLY PATIENT STATES SHE IS CURRENTLY ON A TAPERING DOSE OF PREDNISONE TAKING ALBUTEROL ALBUTEROL NEBULIZERS PRN TAKING NIFEDIPINE ER 60 MG TABLET EXTENDED RELEASE 24 HOUR 1 TABLET ON AN EMPTY STOMACH ORALLY ONCE A DAY TAKING PROZAC 20 MG CAPSULE 2 TABS ORALLY ONCE A DAY 60 MG DAILY TAKING HYDROCODONE-ACETAMINOPHEN 5-325 MG TABLET 1 TABLET NEEDED ORALLY THREE TIMES DAILY NEEDED MEDICATION LIST REVIEWED AND RECONCILED WITH THE PATIENT PAST MEDICAL HISTORY LUPUS MIGRAINES HYPERTENSION EPILEPSY FRACTURED RIGHT FOOT CHEMICAL BURN RIGHT LEG 2 BULGING DISCS IN BACK MOBID OBESITY ALLERGIES LATEX EXAM GLOVES: HIVES - ALLERGY PHENERGAN: NAUSEA/VOMITING - SIDE EFFECTS PEPCID: NAUSEA/VOMITING - SIDE EFFECTS PLAQUENIL: ANAPHYLAXIS SURGICAL HISTORY GALL BLADDER REMOVAL APPENDECTOMY TONSILLECTOMY D&C X 2 C-SECTIONS X5 FAMILY HISTORY FATHER: ALIVE, DIAGNOSED WITH HYPERTENSION, DIABETES, UNSPECIFIED CEREBRAL ARTERY OCCLUSION WITH CEREBRAL INFARCTION MOTHER: ALIVE, UNSPECIFIED CEREBRAL ARTERY OCCLUSION WITH CEREBRAL INFARCTION 2 BROTHER(S) - HEALTHY. 1 SON(S) , 3 DAUGHTER(S) - HEALTHY. STATES PARENTS AND SIBLINGS ARE HEALTHY. SOCIAL HISTORY GENERAL: TOBACCO USE ARE YOU A:FORMER SMOKER HOW LONG HAS IT BEEN SINCE YOU LAST SMOKED?> 10 YEARS VAPORNO E-CIGARETTENO LATEX QUESTIONNAIRE LATEX ALLERGY : HAVE YOU EVER DEVELOPED ANY TYPE OF REACTION AFTER HANDLING LATEX PRODUCTS SUCH RUBBER GLOVES, CONDOMS, DIAPHRAGMS, BALLOONS, SOCKS, OR UNDERWEAR?YES - PLEASE INDICATE :OTHER (DOCUMENT IN NOTES) TUBING IN THR OR LATEX ALLERGY : HAVE YOU EVER DEVELOPED ANY TYPE OF REACTION DURING OR AFTER DENTAL APPOINTMENT, VAGINAL/RECTAL EXAMINATION, SURGICAL PROCEDURE, OR ANY OTHER EXPOSURE?YES - PLEASE INDICATE :VAGINAL EXAM VAGINAL SWELLING AFTER EXAM. HIVES ALSO. LATEX RISK : HAVE YOU EVER HAD ANY DIFFICULTY BREATHING OR HIVES AFTER EATING OR HANDLING ANY FRUITS, OR VEGETABLES; SUCH KIWI, BANANAS, STONE FRUITS, OR CHESTNUTSYES NOTED THROAT SWELLING AFTER EATING A BANANA - PLEASE INDICATE : BANANAS LATEX RISK : DO YOU HAVE A PREVIOUS PERSONAL HISTORY OF MORE THAN NINE SURGERIES, SPINA BIFIDA, OR REPEATED CATHERIZATIONS? YES - PLEASE INDICATE : > 9 SURGERIES LATEX RISK : ARE YOU FREQUENTLY EXPOSED TO LATEX PRODUCTS IN YOUR OCCUPATION?NO DATE ASKED : 09/15/2020 ALCOHOL SCREENING DID YOU HAVE A DRINK CONTAINING ALCOHOL IN THE PAST YEAR?NO POINTS0 INTERPRETATIONNEGATIVE RECREATIONAL DRUG USE DRUG USE?NO PATIENT DENIES ABUSE OR MISSUSED OF ANY MEDICATION DENIES PATIENT DENIES USE OF ANY ILLEGAL SUBSTANCE INCLUDING MARIJUANA OR COCAINE DENIES CAFFEINE CAFFEINE USE?YES HOW OFTEN AND HOW MUCH? STATES YES BECAUSE CAFFEINE DOES HELP WITH HEADACHES LUTHERAN LUTHERAN NO ROMAN CATHOLIC BELIEFS THAT WOULD IMPACT HEALTH CARE. LANGUAGE LANGUAGES SPOKEN:BULGARIAN EDUCATION LEVEL OF EDUCATION:COLLEGE LEARNING BARRIERS / SPECIAL NEEDS BARRIERS TO LEARNING?NO HEARING IMPAIRED?NO VISION IMPAIRED?YES :CORRECTIVE LENSES COGNITIVELY IMPAIRED?NO PATIENT REQUESTS PARTNER PRESENT AT VISITS DUE TO "LUPUS FOG" WHICH ALTERS HER MENTATION. READINESS TO LEARN?YES LEARNING PREFERENCES?YES :HANDOUTS, DEMONSTRATION/VERBAL INSTRUCTION LEARNING CAPABILITIES PRESENT?YES EMOTIONAL BARRIERS?NO SPECIAL DEVICES?YES :WHEELCHAIR DUE TO FRACTURED RIGHT FOOT PENSION AGENT NEEDED?NO DOMESTIC VIOLENCE DO YOU FEEL SAFE IN YOUR ENVIRONMENT?YES OCCUPATION: UNEMPLOYED. DIET: REGULAR. EXERCISE: NO REGULAR EXERCISE. MARITAL STATUS: SINGLE. OTHERS AT HOME: CHILDREN, SO. PAIN CLINIC PFS, CLERGY, PUBLIC HEALTH REFERRALS PFS REFERRAL NEEDED?NO CLERGY REFERRAL NEEDED?NO PUBLIC HEALTH REFERRAL NEEDED?NO WAS THE PROVIDER NOTIFIED OF ANY PERTINENT INFO?YES HAS THE PATIENT BEEN EDUCATED REGARDING HIS/HER PLAN OF CARE?YES HAS THE PATIENT BEEN EDUCATED REGARDING PAIN, THE RISK FOR PAIN, THE IMPORTANCE OF EFFECTIVE PAIN MANAGEMENT, AND THE PAIN ASSESSMENT PROCESS?YES ADVANCE DIRECTIVE ADVANCE DIRECTIVE DISCUSSED WITH PATIENT:YES PATIENT STATES SHE HAS NO ADVANCED DIRECTIVES AND DECLINES THE INFORMATION AT THIS TIME HOSPITALIZATION/MAJOR DIAGNOSTIC PROCEDURE CHILDBIRTH SURGERIES MENTAL HEALTH ISSUES REVIEW OF SYSTEMS CONSTITUTIONAL: ANY RECENT FEVER NO . CHILLS NO . WEIGHT CHANGE OF UNKNOWN REASONS NO . MUSCULOSKELETAL: ANY UNUSUAL JOINT PAIN OR SWELLING NOT MENTIONED NO . SYSTEMIC LUPUS NO . ANY NEUROMUSCULAR DISORDER NOT MENTIONED NO . LYME DISEASE NO . GASTROENTEROLOGY: ANY NEW CHANGE IN BOWEL CONTROL? NO . HISTORY OF LIVER DISORDER NOT MENTIONED NO . HISTORY OF UNUSUAL ABDOMINAL PAIN OR CRAMPING NOT MENTIONED NO . NO CONSTIPATION. GENITOURINARY: ANY NEW CHANGE IN BLADDER CONTROL? NO . ANY RENAL/KIDNEY CONDITON NOT MENTIONED NO . NEUROLOGY: HISTORY OF TBI NOT MENTIONED NO . OTHER NEW NUMBNESS OR PAIN PATTERNS NOT MENTIONED NO . NEW ONSET DIZZINESS OR NEUROLOGICAL CHANGES NOT MENTIONED NO . HISTORY OF SEVERE HEADACHES NOT MENTIONED NO . HISTORY OF STROKE OR NEUROLOGICAL DISORDER NOT MENTIONED NO . CARDIOLOGY: HEART SURGERY NO . CONGESTIVE HEART FAILURE/FLUID OVERLOAD NOT MENTIONED NO . HISTORY OF CHEST PAIN,IRREGULAR HEART BEAT NOT MENTIONED NO . RESPIRATORY: SHORTNESS OF BREATH ON EXERTION, WHEEZES, UNUSUAL COUGH NOT MENTIONED NO . ENDOCRINOLOGY: ADRENAL GLAND OR THYROID DISORDERS NOT MENTIONED NO . UNUSUAL URINATION, DIZZINESS OR LETHARGY NOT MENTIONED NO . VITAL SIGNS WT 277.2 LBS, HT 64 IN, BMI 47.58 INDEX, BP 123/73 MM HG, HR 98 /MIN, RR 18 /MIN, TEMP 97.5 F, OXYGEN SAT % 96%, SAFE IN ENV? (Y/N) YES, NA INITIALS SC 14:48, REVIEWED BY: NICOLAS RN [id number]. EXAMINATION GENERAL EXAMINATION: GENERALNO ACUTE DISTRESS, WELL NOURISHED AND HYDRATED. PSYCHAPPROPRIATE MOOD AND AFFECT . LUNGS:CLEAR TO AUSCULTATION BILATERALLY, NO WHEEZES, RHONCHI, RALES. HEART:NO MURMURS, REGULAR RATE AND RHYTHM. ASSESSMENTS CHRONIC MIGRAINE WITHOUT AURA, NOT INTRACTABLE, WITHOUT STATUS MIGRAINOSUS - G43.709 TREATMENT OTHERS NOTES: PRE NPC PHONE CALL COMPLETED WITH PATIENT 09/14/2020 Aleksandra N MARCOS AGRAWAL 30-YEAR-OLD FEMALE IN FOR INITIAL PAIN CONSULT. GIVEN PRESENTING SYMPTOMS RECOMMEND BOTOX INJECTIONS WITH POST PROCEDURAL FOLLOW-UP. PATIENT HAS EXPRESSED UNDERSTANDING OF AND WAS IN AGREEMENT WITH TREATMENT PLAN. GIVEN TIME TO ASK QUESTIONS AND EXPRESS CONCERNS. BOTOX PREPROCEDURE INSTRUCTIONS REVIEWED WITH PATIENT. PATIENT VERBALIZED UNDERSTANDING OF PREPROCEDURE INSTRUCTIONS. CLINICAL NOTES: BOTOX INJECTIONS. PROCEDURE CODES FA211 ESTABILISHED PATIENT [facility] CHARGE DISPOSITION & COMMUNICATION FOLLOW UP POST PROCEDURE (REASON: BOTOX INJECTIONS) ELECTRONICALLY SIGNED BY PAU AGUILAR ON 09/18/2020 AT 09:25 AM EST DISCLAIMER : THIS IS A VISIT SUMMARY EXTRACTED FROM THE [employer] CHART. IT IS NOT A COPY OF THE [employer] PROGRESS NOTE. KENNY
== END ==
LOC: M PAIN 14:15
PROVIDERS: ATTEND Family Medicine
DX: G43.709 Chronic migraine without aura, not intractable, without status migrainosus (principal); G40.909 Epilepsy, unspecified, not intractable, without status epilepticus; G47.30 Sleep apnea, unspecified; I10 Essential (primary) hypertension; Z86.73 Personal history of transient ischemic attack (TIA), and cerebral infarction without residual deficits; Z87.891 Personal history of nicotine dependence; Z88.8 Allergy status to other drugs, medicaments and biological substances; Z91.040 Latex allergy status; E66.01 Morbid (severe) obesity due to excess calories; Z68.42 Body mass index [BMI] 45.0-49.9, adult; Z79.899 Other long term (current) drug therapy

== ENCOUNTER 2020-09-16 22:49 | Emergency (ER) | payer OTHER ==
[~2020-09-16] VITALS: Ht 162.6 cm; Wt 125.9 kg
[~2020-09-16 22:49] MED LIST changes: -DOK1CAP7 PO
[2020-09-17] MEDS ORDERED: HYDR12CA PO (00:44)
[2020-09-17 01:49] LABS: BASO # 0.1 10^3/uL (0.0-0.2); BASO % 0.4 % (0.0-1.0); EOS # 0.1 10^3/uL (0.0-0.5); EOS % 0.7 % (0.0-3.0); HEMATOCRIT 37.8 % (36.0-47.0); HEMOGLOBIN 11.4 g/dl (12.0-15.5); LYMPH # 1.7 10^3/uL (1.5-5.0); LYMPH % 11.4 % (24.0-44.0); MEAN CORPUSCULAR HEMOGLOBIN 24.8 pg (27.0-33.0); MEAN CORPUSCULAR HGB CONC 30.2 g/dl (32.0-36.5); MEAN CORPUSCULAR VOLUME 82.4 fl (80.0-96.0); MONO # 0.2 10^3/uL (0.0-0.8); MONO % 1.3 % (0.0-5.0); NEUTROPHILS # 12.5 10^3/uL (1.5-8.5); NEUTROPHILS % 85.4 % (36.0-66.0); PLATELET COUNT, AUTOMATED 368 10^3/uL (150-450); RED BLOOD COUNT 4.59 10^6/uL (4.00-5.40); WHITE BLOOD COUNT 14.6 10^3/uL (4.0-10.0)
[2020-09-17 02:17] LABS: HCG, SERUM QUALITATIVE NEGATIVE (NEGATIVE)
[2020-09-17 02:24] LABS: BLOOD UREA NITROGEN 15 MG/DL (7-18); CALCIUM LEVEL 9.6 MG/DL (8.5-10.1); CARBON DIOXIDE LEVEL 27 MEQ/L (21-32); CHLORIDE LEVEL 102 MEQ/L (98-107); CREATININE FOR GFR 0.73 MG/DL (0.55-1.30); GLOMERULAR FILTRATION RATE > 60.0 (>60); GLUCOSE, FASTING 133 MG/DL (70-100); POTASSIUM SERUM 3.8 MEQ/L (3.5-5.1); SODIUM LEVEL 137 MEQ/L (136-145)
[2020-09-17] MEDS ORDERED: PERCOCET 5MG/325MG TAB PO ONE (02:45)
[2020-09-17] MEDS ORDERED: NS 1,000 ML IV ONE (02:45)
--- NOTE | 2020-09-17 02:58 | REPVR ---
PROCEDURE INFORMATION: Exam: CT Head Without Contrast Exam date and time: 09/17/2020 1:15 AM Age: 30 years old Clinical indication: Dizziness; Additional info: Syncope TECHNIQUE: Imaging protocol: Computed tomography of the head without contrast. Radiation optimization: All CT scans at this facility use at least one of these dose optimization techniques: automated exposure control; mA and/or kV adjustment per patient size (includes targeted exams where dose is matched to clinical indication); or iterative reconstruction. COMPARISON: No relevant prior studies available. FINDINGS: Brain: Normal. No hemorrhage. Unremarkable white matter. No mass effect. Cerebral ventricles: No ventriculomegaly. Bones/joints: Unremarkable. No acute fracture. Paranasal sinuses: Mild mucosal thickening of the right maxillary, right frontal and right ethmoidal air cells. Mastoid air cells: Visualized mastoid air cells are well aerated. Soft tissues: Unremarkable. IMPRESSION: No acute intracranial abnormality. Electronically signed by: Patricia Lr On 09/17/2020 02:58:09 AM
--- NOTE | 2020-09-17 03:05 | REPVR ---
PROCEDURE INFORMATION: Exam: XR Chest, 1 View Exam date and time: 09/17/2020 2:52 AM Age: 30 years old Clinical indication: Other: Syncope TECHNIQUE: Imaging protocol: XR of the chest Views: 1 view. COMPARISON: OR PORTABLE CHEST X-RAY 01/16/2020 6:55 PM FINDINGS: Lungs: Unremarkable. No consolidation. Pleural space: Unremarkable. No pleural effusion. No pneumothorax. Heart/Mediastinum: Unremarkable. No cardiomegaly. Bones/joints: Unremarkable. IMPRESSION: No acute findings. Electronically signed by: Patricia Lr On 09/17/2020 03:05:15 AM
[2020-09-17] MEDS ORDERED: PERC5TAB12 PO (03:40)
[2020-09-17] MEDS ORDERED: dexameTHASONE 20MG/5ML VIAL (J1100 PER 1MG) IV ONE (03:45)
[2020-09-17 04:58] VITALS: BP 136/69
--- NOTE | 2020-09-17 14:02 | ECGEPIP ---
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
[2020-09-17] MEDS ORDERED: DOK1CAP7 PO (21:11)
== END 2020-09-17 05:10 | disposition home or self-care (01) ==
LOC: M ED 22:49
DX: R55 Syncope and collapse (principal); R07.9 Chest pain, unspecified; M32.9 Systemic lupus erythematosus, unspecified; D57.3 Sickle-cell trait; G40.89 Other seizures; Z90.49 Acquired absence of other specified parts of digestive tract; Z90.79 Acquired absence of other genital organ(s); Z88.8 Allergy status to other drugs, medicaments and biological substances; Z91.040 Latex allergy status; Z79.899 Other long term (current) drug therapy
CPT/HCPCS: 70450; 71045; 80048; 80180; 81001; 84443; 84703; 85025; 93005; 93041; 94760; 96361; 96374; 99285; J1100

== ENCOUNTER 2020-09-17 20:54 | Emergency (ER) | payer OTHER ==
[~2020-09-17] VITALS: Ht 162.6 cm; Wt 126.8 kg
[2020-09-17] MEDS ORDERED: DOK1CAP7 PO (21:11)
[2020-09-18] MEDS ORDERED: PERCOCET 5MG/325MG TAB PO ONE (00:45)
[2020-09-18] MEDS ORDERED: OXYCODONE/APAP 5MG/325MG(BULK FOR ED) 1 TABLET PO ONE (00:45)
[2020-09-18 01:02] VITALS: BP 170/100
== END 2020-09-18 01:03 | disposition home or self-care (01) ==
LOC: M ED 20:54
DX: G89.29 Other chronic pain (principal); M79.604 Pain in right leg; M79.605 Pain in left leg; M32.9 Systemic lupus erythematosus, unspecified; D57.3 Sickle-cell trait; G40.909 Epilepsy, unspecified, not intractable, without status epilepticus; J45.909 Unspecified asthma, uncomplicated; I10 Essential (primary) hypertension; Z90.49 Acquired absence of other specified parts of digestive tract; Z88.8 Allergy status to other drugs, medicaments and biological substances; Z91.040 Latex allergy status; Z79.899 Other long term (current) drug therapy

== ENCOUNTER 2020-09-21 23:21 | Emergency (ER) | payer OTHER ==
[~2020-09-21] VITALS: Ht 162.6 cm; Wt 125.9 kg
[~2020-09-21 23:21] MED LIST changes: +DOK1CAP7 PO
[2020-09-22 01:07] LABS: HEMATOCRIT 34.6 % (36.0-47.0); HEMOGLOBIN 10.6 g/dl (12.0-15.5); MEAN CORPUSCULAR HEMOGLOBIN 25.5 pg (27.0-33.0); MEAN CORPUSCULAR HGB CONC 30.6 g/dl (32.0-36.5); MEAN CORPUSCULAR VOLUME 83.4 fl (80.0-96.0); PLATELET COUNT, AUTOMATED 345 10^3/uL (150-450); RED BLOOD COUNT 4.15 10^6/uL (4.00-5.40); WHITE BLOOD COUNT 12.4 10^3/uL (4.0-10.0)
[2020-09-22 01:31] LABS: BASOPHILS 1 % (0-1); EOSINOPHILS 4 % (0-3); LYMPHOCYTES 37 % (16-44); MONOCYTES 4 % (0-5); NEUTROPHILS 54 % (28-66); PLATELET CLUMPS SMALL AMT; PLATELET ESTIMATE NORMAL (NORMAL)
[2020-09-22 01:32] LABS: HYPOCHROMASIA 1+
[2020-09-22 01:38] LABS: HCG, SERUM QUALITATIVE NEGATIVE (NEGATIVE)
[2020-09-22 01:41] LABS: BLOOD UREA NITROGEN 8 MG/DL (7-18); CALCIUM LEVEL 8.8 MG/DL (8.5-10.1); CARBON DIOXIDE LEVEL 32 MEQ/L (21-32); CHLORIDE LEVEL 102 MEQ/L (98-107); CK-MB VALUE MASS < 1.0 NG/ML (<3.6); CPK CREATINE PHOSPHOKINASE 32 U/L (26-192); CREATININE FOR GFR 0.71 MG/DL (0.55-1.30); GLOMERULAR FILTRATION RATE > 60.0 (>60); GLUCOSE, FASTING 104 MG/DL (70-100); MB/CK RELATIVE INDEX 3.12 (< OR =4); POTASSIUM SERUM 3.1 MEQ/L (3.5-5.1); SODIUM LEVEL 141 MEQ/L (136-145); TROPONIN I < 0.02 NG/ML (< 0.10)
[2020-09-22] MEDS ORDERED: NS 1,000 ML IV ONE (02:00)
[2020-09-22] MEDS ORDERED: POTASSIUM CHLORIDE 10 MEQ SR TABLET PO ONE (02:00)
[2020-09-22] MEDS ORDERED: methylPREDNISolone 125MG 2ML VIAL IV ONE (03:45)
[2020-09-22 05:15] VITALS: BP 137/82
[2020-09-22] MEDS ORDERED: OXYCODONE/APAP 5MG/325MG(BULK FOR ED) 1 TABLET PO ONE (05:30)
--- NOTE | 2020-09-23 18:49 | ECGEPIP ---
[facility] - ED Test Date: 2020-09-22 Pat Name: WINSOME RODRIGUEZ Department: Room: - Gender: Female Nodulizer: caden : 1990 Requested By: BENEDICT Schaeffer Order Number: [id number] Reading MD: Radha Veronica Measurements Intervals [place] Rate: 71 P: 37 KS: 180 QRS: 21 QRSD: 96 T: 45 QT: 412 QTc: 451 Interpretive Statements SINUS RHYTHM NONSPECIFIC T-WAVE ABNORMALITY COMPARED 09/17/20 Electronically Signed on 09-23-2020 18:49:24 EST by Radha Veronica
[2020-09-30] MEDS ORDERED: XARE10TA PO (11:00)
== END 2020-09-22 05:45 | disposition home or self-care (01) ==
LOC: M ED 23:21
DX: R55 Syncope and collapse (principal); M32.9 Systemic lupus erythematosus, unspecified; Z79.899 Other long term (current) drug therapy; Z79.01 Long term (current) use of anticoagulants; Z88.8 Allergy status to other drugs, medicaments and biological substances; Z91.040 Latex allergy status
CPT/HCPCS: 80048; 82550; 82553; 84443; 84703; 85025; 93005; 93041; 94760; 96361; 96374; 99285; J2930

== ENCOUNTER 2020-09-23 00:28 | Emergency (ER) | payer OTHER ==
[~2020-09-23] VITALS: Ht 162.6 cm; Wt 120.9 kg
[2020-09-23 01:21] LABS: BASO # 0.1 10^3/uL (0.0-0.2); BASO % 0.4 % (0.0-1.0); EOS # 0.3 10^3/uL (0.0-0.5); EOS % 2.1 % (0.0-3.0); HEMATOCRIT 35.7 % (36.0-47.0); LYMPH # 2.1 10^3/uL (1.5-5.0); LYMPH % 14.7 % (24.0-44.0); MEAN CORPUSCULAR HEMOGLOBIN 25.5 pg (27.0-33.0); MEAN CORPUSCULAR HGB CONC 30.8 g/dl (32.0-36.5); MEAN CORPUSCULAR VOLUME 82.6 fl (80.0-96.0); MONO # 0.6 10^3/uL (0.0-0.8); MONO % 3.9 % (0.0-5.0); NEUTROPHILS # 11.3 10^3/uL (1.5-8.5); NEUTROPHILS % 78.5 % (36.0-66.0); PLATELET COUNT, AUTOMATED 258 10^3/uL (150-450); RED BLOOD COUNT 4.32 10^6/uL (4.00-5.40); WHITE BLOOD COUNT 14.4 10^3/uL (4.0-10.0)
[2020-09-23] MEDS ORDERED: LORazepam 2 MG/ML VIAL IV STA (01:36)
[2020-09-23 01:53] LABS: ALBUMIN 3.3 GM/DL (3.2-5.2); ALT/SGPT 18 U/L (12-78); BILIRUBIN,DIRECT < 0.1 MG/DL (0.0-0.2); BILIRUBIN,TOTAL 0.3 MG/DL (0.2-1.0); BLOOD UREA NITROGEN 9 MG/DL (7-18); CALCIUM LEVEL 8.8 MG/DL (8.5-10.1); CARBON DIOXIDE LEVEL 26 MEQ/L (21-32); CHLORIDE LEVEL 103 MEQ/L (98-107); CK-MB VALUE MASS < 1.0 NG/ML (<3.6); CPK CREATINE PHOSPHOKINASE 75 U/L (26-192); CREATININE FOR GFR 0.89 MG/DL (0.55-1.30); GLOMERULAR FILTRATION RATE > 60.0 (>60); GLUCOSE, FASTING 109 MG/DL (70-100); MB/CK RELATIVE INDEX 1.33 (< OR =4); NT-PRO BNP 1031 PG/ML (<125); POTASSIUM SERUM 3.6 MEQ/L (3.5-5.1); SODIUM LEVEL 138 MEQ/L (136-145); TOTAL PROTEIN 6.9 GM/DL (6.4-8.2); TROPONIN I 0.24 NG/ML (< 0.10)
[2020-09-23 01:55] LABS: HCG, SERUM QUALITATIVE NEGATIVE (NEGATIVE)
[2020-09-23] MEDS ORDERED: ISOVUE-370 76% 100ML VIAL As Ordered ONE (02:17)
--- NOTE | 2020-09-23 02:46 | REPVR ---
PROCEDURE INFORMATION: Exam: XR Chest, 1 View Exam date and time: 09/23/2020 12:54 AM Age: 30 years old Clinical indication: Other: Cough; Additional info: Dyspnea/cough TECHNIQUE: Imaging protocol: XR of the chest Views: 1 view. COMPARISON: CR Chest, 1 view 09/17/2020 2:39 AM FINDINGS: Lungs: No interval infiltrates. Pleural space: Unremarkable. No pleural effusion. No pneumothorax. Heart/Mediastinum: The heart and mediastinum are unchanged considering decreased inflation since the prior study. Bones/joints: Unremarkable. IMPRESSION: Essentially stable poor inspiratory chest since 09/17/2020. No interval infiltrates. Electronically signed by: Zuhair Solano On 09/23/2020 02:45:56 AM
--- NOTE | 2020-09-23 03:12 | REPVR ---
PROCEDURE INFORMATION: Exam: CT Angiography Chest With Contrast Exam date and time: 09/23/2020 2:13 AM Age: 30 years old Clinical indication: Chest pain; Type not specified; Additional info: Chest pain, SOB, abd pain TECHNIQUE: Imaging protocol: Computed tomographic angiography of the chest with intravenous contrast. 3D rendering (Not supervised by radiologist): MIP and/or 3D reconstructed images were created by the technologist. Radiation optimization: All CT scans at this facility use at least one of these dose optimization techniques: automated exposure control; mA and/or kV adjustment per patient size (includes targeted exams where dose is matched to clinical indication); or iterative reconstruction. Contrast material: ISO; Contrast volume: 100 ml; Contrast route: INTRAVENOUS (IV); COMPARISON: CT ANGIO CHEST 01/16/2020 9:26 PM FINDINGS: Pulmonary arteries: The main pulmonary artery measures 33 mm. No central pulmonary embolism is identified. Aorta: The ascending thoracic aorta measures 31 mm. Lungs: Minimal bibasilar atelectasis, greatest in the left lower lobe. Pleural space: Unremarkable. No pneumothorax. No pleural effusion. Heart: Unremarkable. No cardiomegaly. No pericardial effusion. Mediastinal space: Induration of anterior mediastinal fat which is likely some residual thymic tissue. Lymph nodes: Unremarkable. No enlarged lymph nodes. Bones/joints: Unremarkable. No acute fracture. Soft tissues: Unremarkable. IMPRESSION: 1. Minimal bibasilar atelectasis, greatest in the left lower lobe with decreased bilateral pulmonary infiltrates since 01/16/2020. 2. Otherwise negative CTA chest. No interval central pulmonary embolism is identified. Electronically signed by: Zuhair Solano On 09/23/2020 03:11:34 AM
--- NOTE | 2020-09-23 03:15 | REPVR ---
PROCEDURE INFORMATION: Exam: CT Angiography Abdomen and Pelvis With Contrast Exam date and time: 09/23/2020 2:13 AM Age: 30 years old Clinical indication: Abdominal pain; Generalized; Additional info: Chest pain, SOB, abd pain TECHNIQUE: Imaging protocol: Computed tomographic angiography of the abdomen and pelvis with intravenous contrast material. 3D rendering (Not supervised by radiologist): MIP and/or 3D reconstructed images were created by the technologist. Radiation optimization: All CT scans at this facility use at least one of these dose optimization techniques: automated exposure control; mA and/or kV adjustment per patient size (includes targeted exams where dose is matched to clinical indication); or iterative reconstruction. Contrast material: ISO; Contrast volume: 100 ml; Contrast route: INTRAVENOUS (IV); COMPARISON: Pelvis, limited US 06/18/2020 3:09 PM FINDINGS: Heart: Trace pericardial fluid. Aorta: The abdominal aorta is of normal size without aneurysm or dissection. Celiac trunk and mesenteric arteries: The celiac artery and branches appear normal. The SMA and branches appear normal. The TRE is patent. Renal arteries: Single patent right renal artery and 2 patent left renal arteries. Right iliac arteries: No occlusion or significant stenosis. Left iliac arteries: No occlusion or significant stenosis. Liver: No mass. Gallbladder and bile ducts: Status post cholecystectomy. Pancreas: Unremarkable. No mass. No ductal dilation. Spleen: Unremarkable. No splenomegaly. Adrenals: Unremarkable. No mass. Kidneys and ureters: Unremarkable. No solid mass. No hydronephrosis. Stomach and bowel: Unremarkable. No obstruction. No mucosal thickening. Appendix: Sutures at the cecal tip suggesting prior appendectomy. Intraperitoneal space: Unremarkable. No free air. No significant fluid collection. Lymph nodes: Unremarkable. No enlarged lymph nodes. Urinary bladder: Unremarkable. No mass. Reproductive: Unremarkable as visualized. Bones/joints: No acute fracture. No dislocation. Soft tissues: Minimal fat filled umbilical hernia. IMPRESSION: 1. Status post cholecystectomy. 2. Trace pericardial fluid. 3. Otherwise negative CTA abdomen/pelvis. No abdominal aortic aneurysm or dissection. Electronically signed by: Zuhair Solano On 09/23/2020 03:14:54 AM
[2020-09-23 03:47] LABS: ERYTHROCYTE SEDIMENTATION RATE 43 mm/hr (0-20)
[2020-09-23 04:11] LABS: INR 1.04; PROTHROMBIN TIME 13.8 SECONDS (12.5-14.3)
[2020-09-23 04:12] LABS: PARTIAL THROMBOPLASTIN TIME 33.2 SECONDS (24.2-38.5)
[2020-09-23 04:27] LABS: C REACTIVE PROTEIN QUANTITATIV 9.75 MG/DL (0.00-0.30); CK-MB VALUE MASS 1.3 NG/ML (<3.6); MB/CK RELATIVE INDEX 2.71 (< OR =4); TROPONIN I 0.3 NG/ML (< 0.10)
[2020-09-23 04:34] LABS: D-DIMER QUANT > 4000 ng/ml (<500)
[2020-09-23] MEDS ORDERED: methylPREDNISolone 125MG 2ML VIAL IV ONE (06:45)
[2020-09-23 07:47] VITALS: BP 144/89
--- NOTE | 2020-09-23 18:58 | ECGEPIP ---
[facility] - ED Test Date: 2020-09-23 Pat Name: WINSOME RODRIGUEZ Department: Room: - Gender: Female Director University: [place]EL : 1990 Requested By: BENEDICT Schaeffer Order Number: [id number] Reading MD: Radha Veronica Measurements Intervals [place] Rate: 110 P: 35 DC: 144 QRS: 42 QRSD: 92 T: 73 QT: 336 QTc: 455 Interpretive Statements SINUS TACHYCARDIA ST DEVIATION AND MODERATE T-WAVE ABNORMALITY, CONSIDER ANTERIOR ISCHEMIA INCREASED RATE 09/22/20 Electronically Signed on 09-23-2020 18:58:15 EST by Radha Veronica
--- NOTE | 2020-09-23 19:00 | ECGEPIP ---
[facility] - ED Test Date: 2020-09-23 Pat Name: WINSOME RODRIGUEZ Department: Room: - Gender: Female [place]: : 1990 Requested By: BENEDICT Schaeffer Order Number: [id number] Reading MD: Radha Veronica Measurements Intervals [place] Rate: 100 P: 40 NM: 164 QRS: 18 QRSD: 97 T: 30 QT: 361 QTc: 468 Interpretive Statements SINUS TACHYCARDIA MODERATE T-WAVE ABNORMALITY, CONSIDER ANTERIOR ISCHEMIA DECREASED RATE 09/23/20 Electronically Signed on 09-23-2020 18:59:32 EST by Radha Veronica
[2020-09-30] MEDS ORDERED: XARE10TA PO (11:00)
== END 2020-09-23 07:51 | disposition short-term general hospital (02) ==
LOC: M ED 00:28
DX: M32.9 Systemic lupus erythematosus, unspecified (principal); R09.02 Hypoxemia; I31.3 Pericardial effusion (noninflammatory); J45.909 Unspecified asthma, uncomplicated; E66.8 Other obesity; Z79.899 Other long term (current) drug therapy; Z79.01 Long term (current) use of anticoagulants; Z88.8 Allergy status to other drugs, medicaments and biological substances; Z91.040 Latex allergy status
CPT/HCPCS: 71045; 71275; 74174; 80048; 80076; 82550; 82553; 82803; 83605; 83880; 84703; 85025; 85379; 85610; 85652; 85730; 86140; 87486; 87581; 87633; 87798; 93005; 93041; 96374; 96375; 99291; J2060; J2930; Q9967

== ENCOUNTER → 2020-10-19 | Outpatient (REF) | payer OTHER ==
[~2020-10-19] MED LIST changes: +LABE100T4 PO; -LABE10TAB PO; +XARE10TA PO
[2020-10-19 17:11] LABS: HEMATOCRIT 38.5 % (36.0-47.0); HEMOGLOBIN 11.8 g/dl (12.0-15.5); MEAN CORPUSCULAR HEMOGLOBIN 25.1 pg (27.0-33.0); MEAN CORPUSCULAR HGB CONC 30.6 g/dl (32.0-36.5); MEAN CORPUSCULAR VOLUME 81.9 fl (80.0-96.0); PLATELET COUNT, AUTOMATED 293 10^3/uL (150-450); WHITE BLOOD COUNT 11.4 10^3/uL (4.0-10.0)
[2020-10-19 17:13] LABS: BLOOD UREA NITROGEN 11 MG/DL (7-18); CALCIUM LEVEL 9.2 MG/DL (8.5-10.1); CARBON DIOXIDE LEVEL 29 MEQ/L (21-32); CHLORIDE LEVEL 106 MEQ/L (98-107); CREATININE FOR GFR 0.64 MG/DL (0.55-1.30); GLOMERULAR FILTRATION RATE > 60.0 (>60); GLUCOSE, FASTING 93 MG/DL (70-100); POTASSIUM SERUM 3.7 MEQ/L (3.5-5.1); SODIUM LEVEL 141 MEQ/L (136-145)
== END ==
LOC: M LAB REF 16:28
PROVIDERS: ATTEND Physician Assistant
DX: I10 Essential (primary) hypertension (principal)

== ENCOUNTER → 2020-11-17 | Outpatient (CLI) | payer OTHER | LOC: M LABSMTC 13:48 | PROVIDERS: ATTEND Anesthesiology | DX: Z20.822 Contact with and (suspected) exposure to COVID-19 (principal) ==

== ENCOUNTER → 2020-11-20 | Outpatient (CLI) | payer OTHER ==
[~2020-11-20] MED LIST changes: +ELIQ5TAB PO
== END ==
LOC: M LABSMTC 12:15
PROVIDERS: ATTEND Anesthesiology
DX: Z01.812 Encounter for preprocedural laboratory examination (principal); Z20.822 Contact with and (suspected) exposure to COVID-19

== ENCOUNTER → 2020-11-22 | Outpatient (CLI) | payer OTHER ==
[~2020-11-22] MED LIST changes: +BOTOX THERAPEUTIC 100 UNIT VIAL (J0585 PER 1 UNIT) IM ONE; +NORCO, ANEXSIA 5/325MG TABLET (HYDROcodone/ACETAMINOPHEN) As Ordered ONE; +diazePAM 5MG TABLET As Ordered ONE
--- NOTE | 2020-11-24 01:46 | ECWPNPC ---
PATIENT NAME: WINSOME RODRIGUEZ : 1990 GENDER: FEMALE VISIT DATE: 11/22/2020 DISCHARGE DATE: 11/22/20 1601 VISIT LOCKED DATE TIME: PHYSICIAN: SAMIR MUNIZ MD RESOURCE: SAMIR MUNIZ MD REASON FOR APPOINTMENT 1. BOTOX INJECTIONS TO THE HEAD, NECK AND SHOULDER AREAS HISTORY OF PRESENT ILLNESS FALL RISK SCREENING: SCREENING :ONE FALL WITH INJURY IN THE PAST YEAR APRIL 2020 FRACTURED RIGHT FOOT, TRIPPED AND FELL AND FRACTURED RIGHT FOOT PAIN SCREENING: PATIENT HAS A COMPLAINT OF ACUTE OR CHRONIC PAIN :YES LOCATION OF PAIN: HEAD, NECK INTENSITY OF PAIN (SCALE OF 1 TO 10):5 WHAT DOES YOUR PAIN FEEL LIKE: DULL, PRESSURE DURATION:CONTINOUS, CONSTANT, AWAKENS FROM SLEEP PAIN IS INCREASED BY:OTHERS FLASHING LIGHTS PAIN IS DECREASED BY:OTHERS REST PLAN/GOALS/TREATMENT/INTERVENTION/FOLLOW UP:SEE PLAN PAIN CENTER INTAKE QUESTIONS: DO YOU HAVE A HISTORY OF MRSA? :NO DO YOU TAKE A BLOOD THINNERS? :YES ELIQUIS LAST DOSE 11/20/20 DO YOU HAVE ANY BLEEDING DISORDERS? :NO ANY NEW NUMBNESS OR WEAKNESS IN YOUR LEGS OR ARMS? :NO ANY PACEMAKER,DEFIBRILLATOR, OR DORSAL COLUMN STIMULATOR? :NO DO YOU HAVE ANY RASHES OR OPEN SORES? :NO ARE YOU ALLERGIC TO IV DYE? :NO ARE YOU DIABETIC? :NO ANY NEW PROBLEMS WITH YOUR MEDICATIONS? :NO HAVE YOU RECEIVED A VACCINE IN THE PAST 30 DAYS? :NO DO YOU PLAN TO RECEIVE A VACCINE IN THE NEXT 21 DAYS? :NO DO YOU TAKE ANY IMMUNOSUPPRESSIVE MEDICATIONS? :NO ANY HISTORY OF SEIZURES? :YES (01/29) ANY HISTORY OF CARDIAC ISSUES OR EVENTS? :NO DO YOU HAVE SLEEP APNEA? :NO ANY RECENT HEAD INJURY? :YES TBI (2008) DO YOU HAVE ANY NEW INFECTIONS? :NO IS THERE A CHANCE YOU COULD BE ? :NO ARE YOU BREAST FEEDING? :YES STOPPPED BREAST FEEDING 11/18/20 WHEN DID YOU LAST EAT? : -11/21 1999 WHEN DID YOU LAST DRINK? : -11/22 699 WHAT DID YOU LAST DRINK? : -SODA NAME OF PERSON DRIVING YOU HOME? : GARRICK (SPOUSE) DO YOU HAVE ANY OTHER QUESTIONS OR CONCERNS? : NO CURRENT MEDICATIONS TAKING KEPPRA 750 MG TABLET 2 TABS ORALLY BID, NOTES: 11/22 699 TAKING SEROQUEL 50 MG TABLET 1 CAP ORALLY MORNING AND LUNCH TAKING SEROQUEL 300 MG TABLET 1 TABLET AT BEDTIME ORALLY ONCE A DAY TAKING HYDROCHLOROTHIAZIDE 25 MG TABLET 1 TABLET IN THE MORNING ORALLY ONCE A DAY, NOTES: 11/22 699 TAKING ALBUTEROL SULFATE HFA 108 (90 BASE) MCG/ACT AEROSOL SOLUTION 1 PUFF NEEDED INHALATION EVERY 4 HRS TAKING ALBUTEROL ALBUTEROL NEBULIZERS PRN TAKING NIFEDIPINE ER 60 MG TABLET EXTENDED RELEASE 24 HOUR 1 TABLET ON AN EMPTY STOMACH ORALLY ONCE A DAY, NOTES: 11/22 699 TAKING PROZAC 20 MG CAPSULE 3 TABS ORALLY 60 MG DAILY TAKING HYDROCODONE-ACETAMINOPHEN 5-325 MG TABLET 1 TABLET NEEDED ORALLY THREE TIMES DAILY NEEDED TAKING BOTOX 100 UNIT SOLUTION RECONSTITUTED FOR IM INJECTION AT THE HEAD, NECK AND SHOULDER MUSCLES ICD G43.709 BOTOX APPT ON 11/22/2020 AT 2PM. TAKING ELIQUIS TABLET 5MG ORAL BID, NOTES: 11/20 TAKING FIORICET 50-325-40 MG TABLET 1 TABLET NEEDED ORALLY EVERY 4 HRS NOT-TAKING FIORINAL 50-325-40 MG CAPSULE 1 CAPSULE NEEDED ORALLY THREE TIMES DAILY NEEDED, NOTES: NONE IN 1 WEEK NOT-TAKING PREDNISOLONE _ TABLET 1 TABLET IN THE MORNING WITH FOOD OR MILK ORALLY PATIENT STATES SHE IS CURRENTLY ON A TAPERING DOSE OF PREDNISONE PAST MEDICAL HISTORY LUPUS MIGRAINES HYPERTENSION EPILEPSY FRACTURED RIGHT FOOT CHEMICAL BURN RIGHT LEG 2 BULGING DISCS IN BACK MOBID OBESITY ALLERGIES LATEX EXAM GLOVES: HIVES - ALLERGY PHENERGAN: NAUSEA/VOMITING - SIDE EFFECTS PEPCID: NAUSEA/VOMITING - SIDE EFFECTS PLAQUENIL: ANAPHYLAXIS - ALLERGY SURGICAL HISTORY GALL BLADDER REMOVAL APPENDECTOMY TONSILLECTOMY D&C X 2 C-SECTIONS X5 FAMILY HISTORY FATHER: ALIVE, DIAGNOSED WITH HYPERTENSION, DIABETES, UNSPECIFIED CEREBRAL ARTERY OCCLUSION WITH CEREBRAL INFARCTION MOTHER: ALIVE, UNSPECIFIED CEREBRAL ARTERY OCCLUSION WITH CEREBRAL INFARCTION 2 BROTHER(S) - HEALTHY. 1 SON(S) , 3 DAUGHTER(S) - HEALTHY. STATES PARENTS AND SIBLINGS ARE HEALTHY. SOCIAL HISTORY GENERAL: TOBACCO USE ARE YOU A:FORMER SMOKER HOW LONG HAS IT BEEN SINCE YOU LAST SMOKED?> 10 YEARS VAPORNO E-CIGARETTENO LATEX QUESTIONNAIRE LATEX ALLERGY : HAVE YOU EVER DEVELOPED ANY TYPE OF REACTION AFTER HANDLING LATEX PRODUCTS SUCH RUBBER GLOVES, CONDOMS, DIAPHRAGMS, BALLOONS, SOCKS, OR UNDERWEAR?YES - PLEASE INDICATE :OTHER (DOCUMENT IN NOTES) TUBING IN THR OR LATEX ALLERGY : HAVE YOU EVER DEVELOPED ANY TYPE OF REACTION DURING OR AFTER DENTAL APPOINTMENT, VAGINAL/RECTAL EXAMINATION, SURGICAL PROCEDURE, OR ANY OTHER EXPOSURE?YES - PLEASE INDICATE :VAGINAL EXAM VAGINAL SWELLING AFTER EXAM. HIVES ALSO. LATEX RISK : HAVE YOU EVER HAD ANY DIFFICULTY BREATHING OR HIVES AFTER EATING OR HANDLING ANY FRUITS, OR VEGETABLES; SUCH KIWI, BANANAS, STONE FRUITS, OR CHESTNUTSYES NOTED THROAT SWELLING AFTER EATING A BANANA - PLEASE INDICATE : BANANAS LATEX RISK : DO YOU HAVE A PREVIOUS PERSONAL HISTORY OF MORE THAN NINE SURGERIES, SPINA BIFIDA, OR REPEATED CATHERIZATIONS? YES - PLEASE INDICATE : > 9 SURGERIES LATEX RISK : ARE YOU FREQUENTLY EXPOSED TO LATEX PRODUCTS IN YOUR OCCUPATION?NO DATE ASKED : 11/19/2020 ALCOHOL SCREENING DID YOU HAVE A DRINK CONTAINING ALCOHOL IN THE PAST YEAR?NO POINTS0 INTERPRETATIONNEGATIVE RECREATIONAL DRUG USE DRUG USE?NO PATIENT DENIES ABUSE OR MISSUSED OF ANY MEDICATION DENIES PATIENT DENIES USE OF ANY ILLEGAL SUBSTANCE INCLUDING MARIJUANA OR COCAINE DENIES CAFFEINE CAFFEINE USE?YES HOW OFTEN AND HOW MUCH? STATES YES BECAUSE CAFFEINE DOES HELP WITH HEADACHES MORMON MORMON NO RELIGION BELIEFS THAT WOULD IMPACT HEALTH CARE. LANGUAGE LANGUAGES SPOKEN:EG[place]IAN EDUCATION LEVEL OF EDUCATION:COLLEGE LEARNING BARRIERS / SPECIAL NEEDS BARRIERS TO LEARNING?NO HEARING IMPAIRED?NO VISION IMPAIRED?YES COGNITIVELY IMPAIRED?NO PATIENT REQUESTS PARTNER PRESENT AT VISITS DUE TO "LUPUS FOG" WHICH ALTERS HER MENTATION. 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 DIET: REGULAR. EXERCISE: NO REGULAR EXERCISE. MARITAL STATUS: SINGLE. OTHERS AT HOME: CHILDREN, SO. PAIN CLINIC PFS, CLERGY, PUBLIC HEALTH REFERRALS PFS REFERRAL NEEDED?NO CLERGY REFERRAL NEEDED?NO PUBLIC HEALTH REFERRAL NEEDED?NO WAS THE PROVIDER NOTIFIED OF ANY PERTINENT INFO?YES HAS THE PATIENT BEEN EDUCATED REGARDING HIS/HER PLAN OF CARE?YES HAS THE PATIENT BEEN EDUCATED REGARDING PAIN, THE RISK FOR PAIN, THE IMPORTANCE OF EFFECTIVE PAIN MANAGEMENT, AND THE PAIN ASSESSMENT PROCESS?YES ADVANCE DIRECTIVE ADVANCE DIRECTIVE DISCUSSED WITH PATIENT:YES PATIENT STATES SHE HAS NO ADVANCED DIRECTIVES AND DECLINES THE INFORMATION AT THIS TIME HOSPITALIZATION/MAJOR DIAGNOSTIC PROCEDURE CHILDBIRTH SURGERIES MENTAL HEALTH ISSUES VITAL SIGNS WT 270.6 LBS, HT 64 IN, BMI 46.44 INDEX, BP 136/62 MANUAL, HR 89 /MIN, RR 18 /MIN, TEMP 98.4 F, OXYGEN SAT % 98% RA, SAFE IN ENV? (Y/N) YES, NA INITIALS MT 1420, REVIEWED BY: NICOLAS RN. EXAMINATION GENERAL EXAMINATION: THE PATIENT IS ALERT, ORIENTED TIMES THREE AND COOPERATIVE. LUNGS ARE CLEAR TO AUSCULTATION. HEART SHOWS REGULAR RHYTHM, NO MURMURS AND NO GALLOPS. ASSESSMENTS CHRONIC MIGRAINE WITHOUT AURA, NOT INTRACTABLE, WITHOUT STATUS MIGRAINOSUS - G43.709 (PRIMARY) TREATMENT CHRONIC MIGRAINE WITHOUT AURA, NOT INTRACTABLE, WITHOUT STATUS MIGRAINOSUS MEDICATION: NORCO TABLET 5MG/325MG ORALLY (HYDROCODONE/ACETAMINOPHEN)NEW VEGA 11/22/2020 02:34:41 PM - GIVE 2 TABS RIGOBERTO CLIFFORD 11/22/2020 2:44:20 PM > LOT# [id number] EXPIRATION DATE 01/2022 ELBA RUTLEDGE 11/22/2020 2:45:53 PM > VERIFIED RIGOBERTO CLIFFORD 11/22/2020 2:52:25 PM > ADMINISTERED MEDICATION: VALIUM TAB 10MG ORALLY (DIAZEPAM)RIGOBERTO CLIFFORD 11/22/2020 2:44:53 PM > LOT # [id number] EXPIRATION DATE 07/02. ELBA RUTLEDGE 11/22/2020 2:46:12 PM > VERIFIED RIGOBERTO CLIFFORD 11/22/2020 2:53:14 PM > ADMINISTERED NOTES: DISCHARGE INSTRUCTIONS REVIEWED WIITH PATIENT AND SHE VERBALIZED UNDERSTANDING. . OTHERS NOTES: 11/19/201811 PAT COMPLETED. PROCEDURES PAIN NURSING RECORD PROCEDURE IN ROOM 1415, PHYSICIAN IN ROOM 1530, START 1533, FINISH 1542, PHYSICIAN OUT OF ROOM 1544, ECG N/A, PATIENT SHIELDED N/A, SAFETY STRAP N/A, PREP ALCOHOL, DRESSING N/A LOC: 1. ALERT, ORIENTED RESP: 1. REGULAR, NO DYSPNEA COLOR: 1. PINK SKIN: 1. WARM, DRY POSITION: 5. SITTING VITALS: RIGOBERTO CLIFFORD 11/22/2020 3:48:52 PM > 160/94 HR 105 16 95% R/A D/C V/S DISCHARGE: POST PAIN 8, DRESSING SITE NO DRESSING, IV N/A, GAIT STEADY, TEACHING COMPLETED, PATIENT ACKNOWLEDGES UNDERSTANDING YES, PATIENT DISCHARGED AT 1600 PN BOTOX INJECTIONS FIRST INJECTION PRE PROCEDURE DIAGNOSIS CHRONIC MIGRAINE HEADACHES POST PROCEDURE DIAGNOSIS CHRONIC MIGRAINE HEADACHES PROCEDURE BOTOX INJECTION AT THE HEAD, NECK AND SHOULDERS SURGEON DR. SAMIR MUNIZ VICE PRESIDENT MARKETING & DEVELOPMENT NONE ANESTHESIA NONE PRE PROCEDURE NOTE THE PATIENT HAS HISTORY OF CHRONIC MIGRAINE HEADACHES. I EVALUATED THE PATIENT AND REVIEWED THE CHART. I WENT OVER THE RISKS, ALTERNATIVES, AND BENEFITS ASSOCIATED WITH THIS PROCEDURE. THE PATIENT WOULD LIKE TO PROCEED AND GAVE CONSENT TO PERFORM THE PROCEDURE. THE PATIENT DENIES UNEXPLAINABLE WEIGHT LOSS, FEVER, CHILLS, OR NEW CHANGES IN URINARY OR BOWEL CONTROL. THE PATIENT HAS BEEN SUFFERING FROM HEADACHES FOR MORE THAN 16 DAYS OF THE MONTH. THESE HEADACHES LAST MORE THAN 4 HOURS PER DAY. THE PATIENT STATES THAT SHE IS HAVING HEADACHES EVERY DAY. THE PATIENT HAS USED THE MEDICATIONS LISTED IN THE CHART TO TREAT THE HEADACHES FOR MANY MONTHS BUT THE HEADACHES PERSIST DESCRIBED ABOVE. THE PATIENT IS COVID-19 NEGATIVE DESCRIPTION OF PROCEDURE THE PATIENT WAS BROUGHT TO THE PROCEDURE ROOM AND PLACED IN THE SUPINE POSITION. I CHECKED THE AREAS WHERE THE PROCEDURE WAS GOING TO BE PERFORMED WITH THE PATIENT AND THE SUPPORTING STAFF AT THE MOMENT OF THE TIME OUT IN THE PROCEDURE ROOM. FOR THE PROCEDURE I USED A SOLUTION OF 5 UNITS OF BOTOX PER EACH 0.1 ML OF THE SOLUTION. I USED A 30-GAUGE NEEDLE TO INJECT THE SOLUTION AT THE SELECTED LOCATIONS. I INJECTED FIRST THE RIGHT AND LEFT CREDIT COLLECTION SPECIALIST MUSCLES. THE LANDMARK FOR BOTH INJECTIONS WAS APPROXIMATELY 1 CM ABOVE THE SUPERIOR MEDIAL EDGE OF THE EYEBROW. AFTER THESE TWO INJECTIONS, I INJECTED THE PROCERUS MUSCLE AT THE MIDLINE POINT BETWEEN THESE FIRST TWO INJECTIONS. THEN I PROCEEDED TO INJECT THE RIGHT AND LEFT FRONTALIS MUSCLE. TWO INJECTIONS WERE DONE IN EACH SIDE. THE FIRST INJECTION WAS DONE APPROXIMATELY 2 CM ABOVE THE FIRST INJECTION OF THE CREDIT COLLECTION SPECIALIST. THE SECOND INJECTION WAS DONE APPROXIMATELY 1.5 CM LATERAL TO THIS FIST INJECTION OF THE FRONTALIS OF EACH SIDE. AFTER THE INJECTIONS OVER THE FOREHEAD WERE DONE, THE PATIENT'S HEAD WAS TURNED TO THE LEFT SIDE AND WE STARTED TO WORK WITH THE RIGHT TEMPORALIS MUSCLE. FIRST INJECTION WAS DONE IN A VERTICAL LINE OF THE TRAGUS APPROXIMATELY 3 CM ABOVE THE TRAGUS. THE SECOND INJECTION WAS DONE APPROXIMATELY 2 CM ABOVE THE FIRST INJECTION. THE THIRD INJECTION WAS DONE APPROXIMATELY 1 CM FRONTWARD FROM THIS VERTICAL LINE CREATED AT THE LEVEL OF THE TRAGUS, GROUP HOME BETWEEN THESE TWO INJECTIONS. THE FOURTH INJECTION WAS DONE APPROXIMATELY 1.5 CM BACK FROM THE SECOND INJECTION TO THE TEMPORALIS IN LINE TO THE MIDPORTION OF THE EAR. THEN, WE PROCEEDED TO INJECT THE LEFT TEMPORALIS MUSCLE. WE CLEANED THE AREA WITH ALCOHOL AND PROCEEDED TO PERFORM THE SAME FOR INJECTIONS DESCRIBED ABOVE BUT IN THE LEFT TEMPORALIS MUSCLE USING THE SAME LANDMARKS. AFTER THESE INJECTIONS WERE DONE, THE PATIENT WAS SEATED. FIRST, WE STARTED TO INJECT THE LEFT AND RIGHT OCCIPITALIS MUSCLE. I INJECTED AT THE FOLLOWING PLACES IN THE RIGHT AND LEFT MUSCLE. THE FIRST INJECTION WAS DONE AT THE MIDPOINT POSITION BETWEEN THE MASTOID PROCESS AND THE INION OF THE OCCIPITAL PROTUBERANCE. THE SECOND INJECTION WAS DONE APPROXIMATELY 1.5 CM SUPERIOR AND LATERAL OF THIS POINT. THE THIRD INJECTION WAS DONE APPROXIMATELY 1.5 CM SUPERIOR AND MEDIAL TO THIS FIRST INJECTION. NEXT, I PROCEEDED TO INJECT THE RIGHT AND LEFT PARASPINAL MUSCLES. LANDMARK OF THE INJECTION WERE APPROXIMATELY: FIRST INJECTION 3 CM BELOW THE INION AND 1 CM LATERAL TO THE MIDLINE AND SECOND INJECTION AT EACH SIDE WAS DONE APPROXIMATELY 1.5 CM SUPERIOR AND LATERAL OF THE FIRST INJECTION. THE LAST GROUP OF INJECTIONS WAS DONE OVER THE RIGHT AND LEFT TRAPEZIUS MUSCLE OVER THE SHOULDERS AREA. THE FIRST INJECTION WAS DONE AT THE MIDPOINT BETWEEN THE INFLECTION POINT BETWEEN THE NECK AND SHOULDER AND THE ACROMION. THE SECOND AND THIRD INJECTIONS WERE DONE APPROXIMATELY 2.5 CM LATERAL AND MEDIAL FROM THIS FIRST INJECTION. SAME TARGETS WERE USED IN THE RIGHT AND LEFT SIDE. IN TOTAL, I INJECTED 155 UNITS OF BOTOX. THE MEDICATIONS WERE VERIFIED WITH THE NURSE. PROCEDURE WAS DONE WITHOUT EVIDENCE OF PARESTHESIA OR ANY COMPLICATIONS. THE PATIENT TOLERATED THE PROCEDURE VERY WELL. ESTIMATED BLOOD LOSS WAS LESS THAN 5 ML. THE PATIENT WAS SENT TO THE RECOVERY ROOM FOR OBSERVATIONS. INJECTIONS WERE DONE AFTER CLEANING WITH ALCOHOL, USING ASEPTIC TECHNIQUES POST PROCEDURE NOTE THE PROCEDURE DONE WAS DISCUSSED WITH THE PATIENT. THE PATIENT WILL BE SEEN IN A FOLLOW UP IN THE NEXT FEW WEEKS. I AM LOOKING FOR LONG LASTING PAIN RELIEF FOR THE PATIENT WITH THIS INTERVENTION. INSTRUCTIONS WERE GIVEN, QUESTIONS WERE ANSWERED, AND THE PATIENT EXPRESSED UNDERSTANDING AND AGREES WITH THE PLAN. I, NEW VEGA, DOCUMENTED THE ABOVE INFORMATION ACTING A SCRIBE FOR DR. MUNIZ. I HAVE REVIEWED THE ABOVE DOCUMENT, WRITTEN BY NEW VEGA, FINISH PAINTER, AND I VERIFY THAT IT IS ACCURATE PROCEDURE CODES 77962 CHEMODENERV MUSC MIGRAINE DISPOSITION & COMMUNICATION FOLLOW UP FOLLOW UP WITH WAREHOUSE CHECKER (REASON: POST BOTOX INJECTIONS TO THE HEAD, NECK AND SHOULDER AREAS) ELECTRONICALLY SIGNED BY SAMIR MUNIZ MD, MD ON 11/23/2020 AT 12:47 PM EST DISCLAIMER : THIS IS A VISIT SUMMARY EXTRACTED FROM THE [facility] CHART. IT IS NOT A COPY OF THE [facility] PROGRESS NOTE. KENNY
== END ==
LOC: M PAIN 14:00
PROVIDERS: ATTEND Anesthesiology
DX: G43.709 Chronic migraine without aura, not intractable, without status migrainosus (principal); I10 Essential (primary) hypertension; G40.909 Epilepsy, unspecified, not intractable, without status epilepticus; E66.01 Morbid (severe) obesity due to excess calories; M51.26 Other intervertebral disc displacement, lumbar region; Z87.891 Personal history of nicotine dependence; Z68.42 Body mass index [BMI] 45.0-49.9, adult; Z88.8 Allergy status to other drugs, medicaments and biological substances; Z91.040 Latex allergy status; Z79.01 Long term (current) use of anticoagulants; Z79.899 Other long term (current) drug therapy
CPT/HCPCS: 64615; J0585

== ENCOUNTER 2020-11-25 09:35 | Day surgery (SDC) | payer OTHER ==
[~2020-11-25] VITALS: Ht 162.6 cm; Wt 122.5 kg
[~2020-11-25 09:35] MED LIST changes: -BOTOX THERAPEUTIC 100 UNIT VIAL (J0585 PER 1 UNIT) IM ONE; +LR 1,000 ML IV ONE; -NORCO, ANEXSIA 5/325MG TABLET (HYDROcodone/ACETAMINOPHEN) As Ordered ONE; -VITA-145 PO; +VITAD1000T PO; -diazePAM 5MG TABLET As Ordered ONE
[2020-11-25] MEDS ORDERED: fentaNYL 100 MCG/2 ML INJECTION (J3010) As Ordered ONE ×2 (12:04→13:33)
[2020-11-25] MEDS ORDERED: propofoL 200 MG/20 ML VIAL As Ordered ONE (12:04)
[2020-11-25] MEDS ORDERED: LIDOCAINE 2% 100MG/5ML SDV (FOR ANES.) As Ordered ONE (12:04)
[2020-11-25] MEDS ORDERED: ROCURONIUM BROMIDE 50 MG/5 ML VIAL As Ordered ONE ×2 (12:04→13:20)
[2020-11-25] MEDS ORDERED: BUPIVACAINE/EPIN 0.5% 30 ML VIAL As Ordered ONE (12:08)
[2020-11-25] MEDS ORDERED: MIDAZOLAM INJ 2MG/2ML VIAL (J2250 PER 1MG) As Ordered ONE (12:09)
[2020-11-25] MEDS ORDERED: ONDANSETRON 4MG/2ML VIAL As Ordered ONE (13:39)
[2020-11-25] MEDS ORDERED: SUGAMMADEX SODIUM 500 MG/5 ML VIAL (BRIDION) As Ordered ONE (13:39)
[2020-11-25] MEDS ORDERED: LABETALOL 100MG/20ML VIAL As Ordered ONE (13:59)
[2020-11-25] MEDS ORDERED: diphenhydrAMINE 50MG/ML VIAL (J1200) As Ordered ONE ×2 (14:16→15:05)
[2020-11-25] MEDS ORDERED: ONDANSETRON 4MG/2ML VIAL IV PRN (14:30)
[2020-11-25] MEDS ORDERED: fentaNYL 100 MCG/2 ML INJECTION (J3010) IV PRN (14:30)
[2020-11-25] MEDS ORDERED: LR 1,000 ML IV SCH ×2 (14:30)
[2020-11-25] MEDS ORDERED: METOCLOPRAMIDE INJ 10MG/2ML VIAL (J2765 PER 1) IV PRN (14:30)
[2020-11-25] MEDS ORDERED: NORCO, ANEXSIA 5/325MG TABLET (HYDROcodone/ACETAMINOPHEN) PO PRN (14:30)
[2020-11-25] MEDS: PERCOCET 5MG/325MG TAB PO PRN ×2 (14:40→15:12)
[2020-11-25] MEDS ORDERED: LABETALOL 100MG/20ML VIAL IV SCH (14:45)
[2020-11-25] MEDS: HYDROMORPHONE HCL 0.5 MG/ 0.5 ML SYRINGE (J1170 PER 1) IV PRN ×3 (14:46→15:27)
[2020-11-25] MEDS ORDERED: diphenhydrAMINE 50MG/ML VIAL (J1200) IV PRN (15:15)
[2020-11-25 17:30] VITALS: BP 142/91
--- NOTE | 2020-11-26 10:25 | RO ---
OPERATIVE NOTE DATE OF OPERATION: 11/25/2020 PREOPERATIVE DIAGNOSIS/INDICATION FOR SURGERY: Desire for permanent sterilization. POSTOPERATIVE DIAGNOSES: Desire for permanent sterilization, dense extensive adhesions. PROCEDURE: Laparoscopy with lysis of extensive adhesions and then bilateral tubal ligation by cautery. SURGEON: Rachel Calvo MD CARD ASSEMBLER: ANESTHESIA: General endotracheal anesthesia. DESCRIPTION OF PROCEDURE AND FINDINGS: Ghada was brought to the operating room where sufficient general endotracheal anesthesia was induced, and she was prepped and draped in position in the usual sterile fashion. The bladder emptied and the cervix grasped with a single tooth tenaculum. The uterus was then sounded to 8. A uterine manipulator was placed and attention was turned to the abdomen where a transverse incision was made below the umbilicus. Sharp and blunt dissection were continued to the subcutaneous tissues to the level of the rectus fascia. This was transversely incised, secured with 0 Vicryl retention sutures and then the Freddy cannula placed into the peritoneal cavity under direct visualization in an open laparoscopic technique. It was then secured with the 0 Vicryl retention sutures and CO2 insufflation was then begun. After adequate CO2 insufflation, the peritoneal cavity was visualized. There were normal shiny peritoneal surfaces throughout but there were vascular adhesions of the omentum to the lower anterior abdominal wall. On the basis of the appearance of these adhesions, my estimate would be that these were post C section adhesions but the wide band of these pose a risk for volvulus and other bowel entrapment and in this patient who has recurrent pain issues, this is certainly a concerning finding. There were no bowel loops in this. It was all omental and so decision was made to add lysis of these dense adhesions to the procedure and because of that, an Enseal was added to the case. This was placed on the operative port of the laparoscope and used very carefully and cautiously to dissect through these adhesions. That portion actually took longer than the actual tubal part as we really had to take care to make sure that there were no loops of bowel or any difficulty but we were able to free that tissue and have good hemostasis as well and no evidence of injury to bowel or other abdominal contents. We then made our way to the uterus where the ovaries were identified to the fimbriated ends and since we had the Enseal in, we used it to cauterize with bipolar cautery in multiple locations along each to turn the Enseal around so that the bipolar cautery was on both sides of the tube as we repeated they cauterized and pictures were taken to document these cauterizations and also to document where the adhesions had been removed. When both tubes had been thoroughly cauterized with the bipolar cautery for the tubal ligation and we had again confirmed absence of bleeding from the site of dissection of those extensive dense adhesions, the procedure was then ended with the CO2 allowed to escape the abdomen. The instruments were removed and the 0-Vicryl retention sutures were used to close the fascial wound at the umbilicus and then 3-0 Vicryl were used to close the skin with Marcaine placed at the wound at the end of the case, 0.5% with Epinephrine to offer some incisional pain control for this patient. A dry, sterile dressing was then applied. Estimated blood loss for the procedure about 4 mL. FLUID REPLACEMENT: Crystalloid. COMPLICATIONS: None. CONDITION AND DISPOSITION: Ghada tolerated the procedure well and was recovering in the recovery room in good condition.
== END 2020-11-25 17:30 | disposition home or self-care (01) ==
LOC: M SDC 09:35
PROVIDERS: ATTEND Obstetrics & Gynecology
DX: Z30.2 Encounter for sterilization (principal); N73.6 Female pelvic peritoneal adhesions (postinfective); I10 Essential (primary) hypertension; E03.9 Hypothyroidism, unspecified; M32.9 Systemic lupus erythematosus, unspecified; D64.9 Anemia, unspecified; G43.909 Migraine, unspecified, not intractable, without status migrainosus; F43.10 Post-traumatic stress disorder, unspecified; F41.9 Anxiety disorder, unspecified; F32.9 Major depressive disorder, single episode, unspecified; Z79.01 Long term (current) use of anticoagulants; Z79.899 Other long term (current) drug therapy
CPT/HCPCS: 58670; J1170; J1200; J2250; J2405; J3010

== ENCOUNTER 2020-11-28 15:13 | Emergency (ER) | payer OTHER ==
[~2020-11-28] VITALS: Ht 162.6 cm; Wt 126.6 kg
[~2020-11-28 15:13] MED LIST changes: -LISI40TA PO; +LISI40TA4 PO; -LR 1,000 ML IV ONE; -QUET1TAB10 PO; +QUET300T2 PO; +QUET50TA3 PO; -QUET5TAB PO
--- OUTSIDE RECORDS SUMMARY | 2020-11-28 15:24 | CCD ---
Author Organization Unknown Address [address] [place] [address] Phone [phone] Care Team Providers Care Package Sorter Name Role Phone Hugh Valente Maksim Unavailable Unavailable Allergies Code Code System Name Reaction Severity Status Onset [id number] RxNorm Plaquenil Active 06/24/2020 Notes: LOVANOX - Reaction: seizure thre shold | FINERGAN - Reaction: vomiting | TRUE LATEX - Reaction: anaphlaxis Medications Name Status Start Date Stop Date acetaminophen 325 mg tablet Completed 10/13 Ajovy Syringe 225 mg/1.5 mL subcutaneous Completed 09/13/2020 albuterol sulfate 2.5 mg/3 mL (0.083 %) solution for nebulizatio n Active Not available albuterol sulfate HFA 90 mcg/actuation a erosol inhaler INHALE TWO PUFFS BY MOUTH EVERY 4 TO 6 HOURS NEEDED Active Not available alcohol swabs Active Not available amoxicillin 875 mg-potassium clavulanate 125 mg tablet Completed 09/13/2020 aspirin 81 mg tablet,delayed release Completed 09/13/2020 bacitracin 500 unit/gram topical ointment Completed 09/13/2020 BD Allergy Syringe 1 mL 28 gauge x 1/2" Active Not available BD Luer-Candice Syringe 3 mL 25 gauge x 1" Active Not available Benlysta 200 mg/mL subcutaneous auto-injector Active Not available buspirone 5 mg tablet TAKE ONE TABLET BY MOUTH TWICE A DAY Completed [id number] 50 mg-325 mg-40 mg tablet Acti ve Not available cephalexin 500 mg capsule Completed 2019 cetirizine 10 mg tablet Take 1 tablet every day by oral route for 90 days. Active Not available cholecalciferol (vitamin D3) 25 mcg (1,0 00 unit) tablet Take 1 tablet every day by oral route for 30 days. Completed 11/08/2020 cholecalciferol (vitamin D3) 50 mcg (2,0 00 unit) capsule TAKE ONE CAPSULE BY MOUTH EVERY DAY Active Not available clonazepam 0.5 mg tablet Completed clonazepam 1 mg tablet TAKE ONE TABLET BY MOUTH TWICE A DAY MAXIMUM DAILY DOSE 2 TABLETS Active Not available Deblitane 0.35 mg tablet Take 1 tablet every day by oral route for 84 days. Completed 11/08/2020 DOK 100 mg capsule TAKE ONE CAPSULE BY MOUTH THREE TIMES A DAY NEEDED FOR 30 DAYS Active Not available Eliquis 5 mg tablet TAKE ONE TABLET BY MOUTH TWICE A DAY Active No t available epinephrine 0.3 mg/0.3 mL injection, auto-injector Active Not available esomeprazole magnesium 20 mg capsule,delayed release Completed 09/13/2020 ferrous sulfate 324 mg (65 mg iron) tablet,delayed release Compl eted 09/13/2020 fluconazole 150 mg tablet Completed 2019 fluoxetine 20 mg capsule TAKE ONE CAPSULE BY MOUTH EVERY DAY Active Not available fluoxetine 40 mg capsule TAKE ONE CAPSULE BY MOUTH EVERY DAY WITH 20MG TO EQUAL 60MG ONCE DAILY Active Not available fondaparinux 2.5 mg/0.5 mL subcutaneous solution syringe Complet ed 09/13/2020 gabapentin 600 mg tablet Completed heparin (porcine) 5,000 unit/mL injection solution Completed 09/13/2020 hydrochlorothiazide 12.5 mg capsule TAKE ONE CAPSULE BY MOUTH EVERY DAY Active Not available hydrochlorothiazide 12.5 mg tablet Take 1 tablet every day by oral route. Completed 11/08/2020 hydrocodone 5 mg-acetaminophen 325 mg tablet Active Not available ibuprofen 600 mg tablet TAKE ONE TABLET BY MOUTH EVERY 6 HOURS NEEDED FOR PAIN Completed 11/08/2020 ibuprofen 800 mg tablet Completed 09/13/20 ipratropium 0.5 mg-albuterol 3 mg (2.5 mg base)/3 mL nebulizatio n soln Active Not available ketoconazole 2 % topical cream Completed 1 11/13/2019 levetiracetam 1,000 mg tablet 1 Completed 09/13/2020 levetiracetam 750 mg tablet Active Not available lidocaine 4 % topical cream Completed 12/2019 lidocaine-prilocaine 2.5 %-2.5 % topical cream Completed 10/05/2020 magnesium oxide 400 mg (241.3 mg magnesium) tablet Completed 09/13/2020 metformin 500 mg tablet Completed 09/13/20 metoclopramide 10 mg tablet Completed 12/2019 metronidazole 500 mg tablet Completed 12/2019 Nexium 24HR 20 mg tablet,delayed release Completed 09/13/2020 nifedipine ER 30 mg tablet,extended release Active Not available ondansetron 8 mg disintegrating tablet Completed 09/13/2020 oxycodone 10 mg tablet Completed 0 oxycodone 5 mg tablet Completed 09/13/2020 oxycodone-acetaminophen 5 mg-325 mg tablet Completed 09/13/2020 prazosin 1 mg capsule Completed 09/13/2020 prednisone 10 mg tablet Completed 09/13/20 prednisone 20 mg tablet Take 3 tablets po day 1-3, 2 tablets day 4-7, 1 tablet day 8-10 Completed 11/08/2020 prednisone 50 mg tablet Completed 09/13/20 pregabalin 75 mg capsule TAKE 1 CAPSULE BY MOUTH ONCE A DAY MAXIMUM DAILY DOSE 1 CAPSULE Active Not available Vitamin 27 mg iron-0.8 mg table t TAKE ONE TABLET BY MOUTH EVERY DAY Active Not available progesterone micronized 200 mg capsule Completed 09/13/2020 quetiapine 100 mg tablet Completed 020 quetiapine 300 mg tablet TAKE ONE TABLET BY MOUTH EVERY DAY AT BEDTIME Active Not available quetiapine 50 mg tablet Active Not avai lable topiramate 25 mg tablet Completed 09/13/20 topiramate 50 mg tablet Completed 09/13/20 20 tramadol 50 mg tablet Completed 09/13/2020 Vitamin C 500 mg tablet Completed 09/13/20 Vitamin D2 1,250 mcg (50,000 unit) capsule Completed 09/13/2020 Xarelto 15 mg tablet Take 1 tablet every day by oral route as directed. Completed 10/19/2020 Xarelto 20 mg tablet Take 1 tablet every day by oral route. Completed 10/19/2020 Problems Name Status Onset Date Source Body Mass Index 30+ - Obesity Active 06/24/2020 Hi story Severe Obesity Active 06/24/2020 History Influenza Vaccine Needed Unknown 06/24/2020 History Procedure Unknown 06/24/[address] Concept Unknown 06/24/2020 History Lupus Erythematosus Active 09/13/2020 Essential Hypertension Active 10/05/2020 Procedures Date Name Performed by 11/08/2020 Electrocardiogram [facility] [address] [facility] [address] [place] [address] ( (Work Place) Notes: section x5, Involuntary D&C, Appendectomy, Tonsillectomy, Gallbladder Results Lab Results Date Name Specimen Result Interpretation Description Value Range Status Address 10/19/2020 Cbc Blood venous High White Blood Count 11. 4 10 4.0-10.0 10 [facility]: [address] [place] [address] Blood venous Normal Red Blood Count 4.70 10 4.00- 5.40 10 [facility]: [address] [place] [address] Blood venous Low Hemoglobin 11.8 g/dL 12.0-15. 5 g/dL [facility]: [address] [place] [address] Blood venous Normal Hematocrit 38.5 % 36.0-47.0 % [facility]: [address] [place] [address] Blood venous Normal Mean Corpuscular Volume 81.9 fL 80.0-96.0 fL [facility]: [address] [place] [address] Blood venous Low Mean Corpuscular Hemoglob in 25.1 pg 27.0-33.0 pg [facility]: [address] [place] [address] Blood venous Low Mean Corpuscular HGB Conc 30.6 g/dL 32.0-36.5 g/dL [facility]: [address] [place] [address] Blood venous Normal Red Cell Distribution Wid th 13.7 % 11.5-14.5 % [facility]: [address] [place] [address] Blood venous Normal Platelet Count, Automated 293 10 150-450 10 [facility]: [address] [place] [address] Blood venous Normal Nucleated Red Blood Cell % 0. 0 % 0-0 % [facility]: [address] [place] [address] 10/19/2020 BMP, Serum or Plasma Blood venous Normal Glu cose, Fasting 93 mg/dL 70-100 mg/dL [facility] nter: [address] [place] [address] Blood venous Normal Blood Urea Nitrogen 11 mg/dL 7-18 mg/dL [facility]: [address] [place] [address] Blood venous Normal Creatinine for GFR 0.64 mg/dL 0.55-1.30 mg/dL [facility]: [address] [facility] Blood venous Normal Glomerular Filtration Rate > 60.0 >60 [facility]: [address] [facility] Blood venous Normal Sodium Level 141 mEq/L 136-14 5 mEq/L [facility]: [address] [facility] Blood venous Normal Potassium Serum 3.7 mEq/L 3.5 -5.1 mEq/L [facility]: [address] [facility] Blood venous Normal Chloride Level 106 mEq/L 98-1 07 mEq/L [facility]: [address] [facility] Blood venous Normal Carbon Dioxide Level 29 mEq/L 21-32 mEq/L [facility]: 0 [facility] Blood venous Low Anion Gap 6 mEq/L 8-16 mEq/L [facility]: [address] [place] [address] Blood venous Normal Calcium Level 9.2 mg/dL 8.5-1 0.1 mg/dL [facility]: [address] [place] [address] 09/17/2020 CBC W/ Auto Diff High White Blood Count 14.6 10 4.0-10.0 10 [facility]: [address] [place] [address] Normal Red Blood Count 4.59 10 4.00-5.40 10 [facility]: [address] [place] [address] Low Hemoglobin 11.4 g/dL 12.0-15.5 g/dL [facility]: [address] [place] [address] Normal Hematocrit 37.8 % 36.0-47.0 % [facility]: [address] [place] [address] Normal Mean Corpuscular Volume 82.4 fL 80.0 -96.0 fL [facility]: [address] [place] [address] Low Mean Corpuscular Hemoglobin 24.8 pg 27.0-33.0 pg [facility]: [address] [place] [address] Low Mean Corpuscular HGB Conc 30.2 g/dL 32.0-36.5 g/dL [facility]: [address] [place] [address] Normal Red Cell Distribution Width 14.4 % 1 1.5-14.5 % [facility]: [address] [facility] Normal Platelet Count, Automated 368 10 150 -450 10 [facility]: [address] [facility] High Neutrophils % 85.4 % 36.0-66.0 % [facility]: [address] [facility] Low Lymph % 11.4 % 24.0-44.0 % [facility]: [address] [facility] Normal [place] % 1.3 % 0.0-5.0 % [facility]: [address] [facility] Normal Eos % 0.7 % 0.0-3.0 % [facility]: [address] [facility] Normal Baso % 0.4 % 0.0-1.0 % [facility]: [address] [facility] Normal Immature Granulocyte % 0.8 % 0-3.0 % [facility]: [address] [facility] Normal Nucleated Red Blood Cell % 0.0 % 0- 0 % [facility]: [address] [facility] High Neutrophils # 12.5 10 1.5-8.5 10 [facility]: [address] [facility] Normal Lymph # 1.7 10 1.5-5.0 10 [facility]: [address] [facility] Normal [place] # 0.2 10 0.0-0.8 10 [facility]: [address] [facility] Normal Eos # 0.1 10 0.0-0.5 10 [facility]: [address] [facility] Normal Baso # 0.1 10 0.0-0.2 10 [facility]: [address] [facility] 09/17/2020 Glucose, Fingerstick, Blood High Bedside Glucose 137 mg/dL 70- 105 mg/dL [facility]: [address] [facility] 09/17/2020 BMP, Serum or Plasma High Glucose, Fastin g 133 mg/dL 70-100 mg/dL [facility]: [address] [facility] Normal Blood Urea Nitrogen 15 mg/dL 7-18 mg /dL [facility]: 0 [facility] Normal Creatinine for GFR 0.73 mg/dL 0.55-1 .30 mg/dL [facility]: [address] [place] [address] Normal Glomerular Filtration Rate > 60.0 >6 0 [facility]: [address] [facility] Normal Sodium Level 137 mEq/L 136-145 mEq/L [facility]: [address] [facility] Normal Potassium Serum 3.8 mEq/L 3.5-5.1 mE q/L [facility]: 0 [facility] Normal Chloride Level 102 mEq/L 98-107 mEq/ L [facility]: 0 [facility] Normal Carbon Dioxide Level 27 mEq/L 21-32 mEq/L [facility]: 0 [facility] Normal Anion Gap 8 mEq/L 8-16 mEq/L [facility]: 0 [facility] Normal Calcium Level 9.6 mg/dL 8.5-10.1 mg/ dL [facility]: 0 [facility] 09/17/2020 TSH, Serum or Plasma Normal Thyroid Stimulating Hormone 1.520 uIU/mL 0.358-3.740 uIU/mL [facility] nter: 0 [facility] 09/17/2020 beta-HCG, Qualitative, Serum or Plasma Normal HCG, Serum Qualitative negative negative [facility]: [address] [place] [address] 09/17/2020 UA W/ Reflex to Culture Normal Appearance, Urine Rfx clear clear [facility]: [address] [facility] Normal Color, Urine Rfx straw yellow [facility]: 0 [facility] Normal pH,urine Rfx 7.0 units 5.0-9.0 units [facility]: 0 [facility] Normal Specific [place] Ur Auto Rfx 1.008 1.002-1.035 [facility]: [address] [facility] Normal Protein, Urine Auto Rfx negative mg/ dL negative mg/dL [facility]: [address] [facility] Normal Glucose, Urine (UA) Auto Rfx n egative mg/dL negative mg/dL [facility]: [address] [facility] Normal Ketone, Urine Auto Rfx negative mg/d L negative mg/dL [facility]: [address] [facility] Normal Urobilinogen, Urine Auto Rfx 0.2 mg/ dL 0.0-2.0 mg/dL [facility]: [address] [facility] Normal Bilirubin, Urine Auto Rfx negative n egative [facility]: [address] [facility] Normal Nitrite, Urine Auto Rfx negative neg ative [facility]: [address] [facility] Normal Leukocyte Esterase Ur Auto Rfx negat socrates negative [facility]: [address] [facility] Normal Blood, Urine Blood Rfx negative nega tive [facility]: [address] [facility] Normal WBC, Urine Auto Rfx 1 /hpf 0-3 /hpf [facility]: [address] [facility] Normal RBC, Urine Auto Rfx 1 /hpf 0-3 /hpf [facility]: [address] [facility] Normal Bacteria, Urine Auto Rfx negative ne gative [facility]: [address] [facility] Normal Squam Epithelial Cell Ur Aurfx 2 /hp f 0-6 /hpf [facility]: [address] [facility] Normal Hyaline Cast, Urine Auto Rfx 0 /lpf 0-1 /lpf [facility]: [address] [facility] 09/17/2020 Levetiracetam, Serum Low Levetiracetam ( Keppra) <1.0 ug/mL 10.0-40.0 ug/mL [facility]: [address] [facility] 09/12/2020 CBC W/ Auto Diff High White Blood Count 12.8 10 4.0-10.0 10 [facility]: [address] [facility] Normal Red Blood Count 4.56 10 4.00-5.40 10 [facility]: [address] [facility] Low Hemoglobin 11.4 g/dL 12.0-15.5 g/dL [facility]: [address] [facility] Normal Hematocrit 37.5 % 36.0-47.0 % [facility]: [address] [facility] Normal Mean Corpuscular Volume 82.2 fL 80.0 -96.0 fL [facility]: [address] [facility] Low Mean Corpuscular Hemoglobin 25.0 pg 27.0-33.0 pg [facility]: [address] [place] [address] Low Mean Corpuscular HGB Conc 30.4 g/dL 32.0-36.5 g/dL [facility]: [address] [facility] High Red Cell Distribution Width 14.8 % 1 1.5-14.5 % [facility]: [address] [facility] Normal Platelet Count, Automated 329 10 150 -450 10 [facility]: [address] [facility] High Neutrophils % 71.9 % 36.0-66.0 % [facility]: [address] [facility] Low Lymph % 17.9 % 24.0-44.0 % [facility]: [address] [facility] High [place] % 5.1 % 0.0-5.0 % [facility]: [address] [facility] High Eos % 4.2 % 0.0-3.0 % [facility]: [address] [facility] Normal Baso % 0.5 % 0.0-1.0 % [facility]: [address] [facility] Normal Immature Granulocyte % 0.4 % 0-3.0 % [facility]: [address] [facility] Normal Nucleated Red Blood Cell % 0.0 % 0- 0 % [facility]: [address] [facility] High Neutrophils # 9.2 10 1.5-8.5 10 [facility]: [address] [facility] Normal Lymph # 2.3 10 1.5-5.0 10 [facility]: [address] [facility] Normal [place] # 0.7 10 0.0-0.8 10 [facility]: [address] [facility] Normal Eos # 0.5 10 0.0-0.5 10 [facility]: [address] [facility] Normal Baso # 0.1 10 0.0-0.2 10 [facility]: 0 [facility] 09/12/2020 ESR (Erythrocyte Sedimentation Rate), Blood Hig h Erythrocyte Sedimentation Rate 60 mm/HR 0-20 mm/HR [facility] dical Center: 0 [facility] 09/12/2020 CMP, Serum or Plasma Normal Glucose, Fastin g 98 mg/dL 70-100 mg/dL [facility]: [address] [facility] Normal Blood Urea Nitrogen 8 mg/dL 7-18 mg/ dL [facility]: 0 [facility] Normal Creatinine for GFR 0.61 mg/dL 0.55-1 .30 mg/dL [facility]: 0 [facility] Normal Glomerular Filtration Rate > 60.0 >6 0 [facility]: [address] [facility] Normal Sodium Level 141 mEq/L 136-145 mEq/L [facility]: 0 [facility] Normal Potassium Serum 3.9 mEq/L 3.5-5.1 mE q/L [facility]: 0 [facility] High Chloride Level 109 mEq/L 98-107 mEq/ L [facility]: 0 [facility] Normal Carbon Dioxide Level 25 mEq/L 21-32 mEq/L [facility]: 0 [facility] Low Anion Gap 7 mEq/L 8-16 mEq/L [facility]: 0 [facility] Normal Calcium Level 9.3 mg/dL 8.5-10.1 mg/ dL [facility]: [address] [place] [address] Normal AST/SGOT 14 U/L 7-37 U/L [facility]: [address] [place] [address] Normal ALT/SGPT 18 U/L 12-78 U/L [facility]: [address] [place] [address] High Alkaline Phosphatase 120 U/L 45-117 U/L [facility]: [address] [place] [address] Normal Bilirubin,total 0.4 mg/dL 0.2-1.0 mg /dL [facility]: [address] [place] [address] Normal Total Protein 7.1 gm/dL 6.4-8.2 gm/d L [facility]: [address] [place] [address] Normal Albumin 3.6 gm/dL 3.2-5.2 gm/dL [facility]: [address] [place] [address] Low Albumin/globulin Ratio 1.0 1.2-2. 2 [facility]: [address] [place] [address] 09/12/2020 C Reactive Protein, QN, Serum or Plasma High C Reactive Protein Quantitativ 10.80 mg/dL 0.00-0.30 mg/dL [facility]: [address] [place] [address] Electrocardiogram Rate & Rhythm sinus rhyth m [facility]: [address] [place] [address] Past Encounters 11/08/2020 Pre-surgery Evaluation; Contraception Care Management; Allergic Rhinitis; Constipation; Essential Hypertension Hugh Valente RPA-C: [address] [facility] [address] [address], Ph. 10/19/2020 Essential Hypertension Hugh Valente RPA-C: [address] [facility] [address] [address], Ph. 10/05/2020 Essential Hypertension; Pulmonary Hypertension; Deep Venous Thrombosis; Lupus Erythematosus; Contraception Care Management Hugh Valente RPA-C: [address] [facility], [place] [address], Ph. 09/13/2020 Lupus Erythematosus; Migraine; Asthma; Essential Hypertension JAVY PeteC: [address] [facility] [address], [place] [address], Ph. Social History Tobacco Smoking Status Never Smoker Vaccine List Vaccine Type Tdap 06/24/20200.5 mL Plan of Care Patient Instructions Patient is cleared preoperatively from P CP standpoint for tubal ligation as scheduled, under general anesthesia. BMP, CBC and EKG are unactionable. Specific recommendations as follows: stop Eliquis 11/20/2020, resume postoperatively per surgeon. Stop Vitamin D one week prior to procedure. Continue ALL other medications including mood medications, Keppra, and Hydrochlorothiazide the day of procedure, unless otherwise advised by anesthesia or surgeon. Reminders Provider Appointments None recorded. Lab None recorded. Referral None recorded. Procedures None recorded. Surgeries None recorded. Imaging None recorded. Vitals 11/08/2020 01:10PM ESTABLISHED [id number] Height Weight BMI Blood Pressure 64 in 277 lbs 3.2 oz 47.6 kg/m2 119/81 mm[Hg ] 10/05/2020 01:50PM HOSPITAL DISCHARGE Height Weight BMI Blood Pressure 64 in 265 lbs 45.5 kg/m2 115/84 mm[Hg] 09/13/2020 02:50PM ESTABLISHED [id number] Height Weight BMI Blood Pressure 64 in (1) 143/99 mm[H g] (2) 146/97 mm[Hg] 06/24/2020 Height Weight Blood Pressure 64 in 271 lbs 126/87 mm[Hg]
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
--- OUTSIDE RECORDS SUMMARY | 2020-11-28 15:24 | CCD ---
Author Organization Unknown Address [address] [place] [address] Phone [phone] Care Team Providers Care Supplier Manager Name Role Phone Hugh Valente Unavailable Unavailable Allergies Code Code System Name Reaction Severity Status Onset [id number] RxNorm Plaquenil Active 06/24/2020 Notes: LOVANOX - Reaction: seizure thre shold | FINERGAN - Reaction: vomiting | TRUE LATEX - Reaction: anaphlaxis Medications Name Status Start Date Stop Date acetaminophen 325 mg tablet Active Not available Ajovy Syringe 225 mg/1.5 mL subcutaneous Completed [...] TWICE A DAY Active No t available kwqduguqqb-blfowreumvwqb-aemgbqop 50 mg- 325 mg-40 mg tablet TAKE ONE TABLET BY MOUTH THREE TIMES A DAY NEEDED Active Not available cephalexin 500 mg capsule Completed 2019 cetirizine 10 mg tablet Take 1 tablet every day by oral route for 30 days. Active Not available cholecalciferol (vitamin D3) 25 mcg (1,0 00 unit) tablet Take 1 tablet every day by oral route for 30 days. Active Not available clonazepam 0.5 mg tablet Completed 020 clonazepam 1 mg tablet Take 1 tablet QAM, 1/2 tablet in the afternoon and 1/2 tablet at night; MDD 2mg Active Not available Deblitane 0.35 mg tablet Take 1 tablet every day by oral route for 84 days. Active Not available DOK 100 mg capsule TAKE ONE CAPSULE BY MOUTH THREE TIMES A DAY NEEDED FOR 30 DAYS Active Not available Eliquis 5 mg tablet Take 1 tablet twice a day by oral route for 90 days. Active Not available epinephrine 0.3 mg/0.3 mL injection, auto-injector Active Not available esomeprazole magnesium 20 mg capsule,delayed release Completed 09/13/2020 ferrous sulfate 324 mg (65 mg iron) tablet,delayed release Compl eted 09/13/2020 fluconazole 150 mg tablet Completed 2019 fluoxetine 20 mg capsule TAKE ONE CAPSULE BY MOUTH EVERY DAY Active Not available fluoxetine 40 mg capsule 60mg daily Active Not available fondaparinux 2.5 mg/0.5 mL subcutaneous solution syringe Complet ed 09/13/2020 gabapentin 600 mg tablet Completed 020 heparin (porcine) 5,000 unit/mL injection solution Completed 09/13/2020 hydrochlorothiazide 12.5 mg capsule TAKE ONE CAPSULE BY MOUTH EVERY DAY Active Not available hydrochlorothiazide 12.5 mg tablet Take 1 tablet every day by oral route. Active Not available hydrocodone 5 mg-acetaminophen 325 mg ta blet TAKE ONE TABLET BY MOUTH THREE TIMES A DAY NEEDED FOR 7 DAYS MAXIMUM DAILY DOSE 3 TABLETS Active Not available ibuprofen 600 mg tablet TAKE ONE TABLET BY MOUTH EVERY 6 HOURS NEEDED FOR PAIN Active Not available ibuprofen 800 mg tablet Completed 09/13/20 20 ipratropium 0.5 mg-albuterol 3 mg (2.5 mg base)/3 mL nebulizatio n soln Active Not available ketoconazole 2 % topical cream Completed 1 11/13/2019 levetiracetam 1,000 mg tablet 1 Completed 09/13/2020 levetiracetam 750 mg tablet TAKE TWO TABLETS BY MOUTH TWICE A DAY Active N ot available lidocaine 4 % topical cream Completed 12/2019 lidocaine-prilocaine 2.5 %-2.5 % topical cream Completed 10/05/2020 magnesium oxide 400 mg (241.3 mg magnesium) tablet Completed 09/13/2020 metformin 500 mg tablet Completed 09/13/20 20 metoclopramide 10 mg tablet Completed 12/2019 metronidazole 500 mg tablet Completed 12/2019 Nexium 24HR 20 mg tablet,delayed release Completed 09/13/2020 nifedipine ER 30 mg tablet,extended rele ase TAKE ONE TABLET BY MOUTH ONCE DAILY Active Not available ondansetron 8 mg disintegrating tablet Completed 09/13/2020 oxycodone 10 mg tablet Active Not avail able oxycodone 5 mg tablet Completed 09/13/2020 oxycodone-acetaminophen 5 mg-325 mg tablet Completed 09/13/2020 prazosin 1 mg capsule Completed 09/13/2020 prednisone 10 mg tablet Completed 09/13/20 prednisone 20 mg tablet Take 3 tablets po day 1-3, 2 tablets day 4-7, 1 tablet day 8-10 Active Not available prednisone 50 mg tablet Completed 09/13/20 pregabalin [...] mg tablet TAKE ONE TABLET BY MOUTH DAILY AT BEDTIME Active Not available quetiapine 50 mg tablet TAKE 1 TABLET BY MOUTH EVERY MORNING AND 1 TABLET AT NOON Active Not available topiramate 25 mg tablet Completed 09/13/20 topiramate 50 mg tablet Completed 09/13/20 tramadol 50 mg tablet Completed 09/13/2020 Vitamin [...] Active 09/13/2020 Essential Hypertension Active 10/05/2020 Procedures Notes: section x5, Involuntary D&C, Appendectomy, Tonsillectomy, Gallbladder Results Lab Results Date Name Specimen Result Interpretation Description Value Range Status Address 09/17/2020 CBC W/ Auto Diff High White Blood Count 14.6 10 4.0-10.0 10 [facility]: [address] [place] [address] Normal Red Blood Count 4.59 10 4.00-5.40 10 [facility]: [address] [place] [address] Low Hemoglobin 11.4 g/dL 12.0-15.5 g/dL [facility]: [address] [place] [address] Normal Hematocrit 37.8 % 36.0-47.0 % [facility]: [address] [place] [address] Normal Mean Corpuscular Volume 82.4 fL 80.0 -96.0 fL [facility]: [address] [place] [address] Low Mean Corpuscular Hemoglobin 24.8 pg 27.0-33.0 pg [facility]: [address] [place] [address] Low Mean Corpuscular HGB Conc 30.2 g/dL 32.0-36.5 g/dL [facility]: [address] [place] [address] Normal Red Cell Distribution Width 14.4 % 1 1.5-14.5 % [facility]: [address] [place] [address] Normal Platelet Count, Automated 368 10 150 -450 10 [facility]: [address] [place] [address] High Neutrophils % 85.4 % 36.0-66.0 % [facility]: [address] [place] [address] Low Lymph % 11.4 % 24.0-44.0 % [facility]: [address] [facility] Normal Cecil % 1.3 % 0.0-5.0 % [facility]: [address] [place] [address] Normal Eos % 0.7 % 0.0-3.0 % [facility]: [address] [place] [address] Normal Baso % 0.4 % 0.0-1.0 % [facility]: [address] [place] [address] Normal Immature Granulocyte % 0.8 % 0-3.0 % [facility]: [address] [place] [address] Normal Nucleated Red Blood Cell % 0.0 % 0- 0 % [facility]: [address] [facility] High Neutrophils # 12.5 10 1.5-8.5 10 [facility]: [address] [facility] Normal Lymph # 1.7 10 1.5-5.0 10 [facility]: [address] [facility] Normal Cecil # 0.2 10 0.0-0.8 10 [facility]: [address] [facility] Normal Eos # 0.1 10 0.0-0.5 10 [facility]: [address] [facility] Normal Baso # 0.1 10 0.0-0.2 10 [facility]: [address] [facility] 09/17/2020 Glucose, Fingerstick, Blood High Bedside Glucose 137 mg/dL 70- 105 mg/dL [facility]: [address] [facility] 09/17/2020 BMP, Serum or Plasma High Glucose, Fastin g 133 mg/dL 70-100 mg/dL [facility]: [address] [facility] Normal Blood Urea Nitrogen 15 mg/dL 7-18 mg /dL [facility]: [address] [facility] Normal Creatinine for GFR 0.73 mg/dL 0.55-1 .30 mg/dL [facility]: [address] [facility] Normal Glomerular Filtration Rate > 60.0 >6 0 [facility]: [address] [facility] Normal Sodium Level 137 mEq/L 136-145 mEq/L [facility]: [address] [facility] Normal Potassium Serum 3.8 mEq/L 3.5-5.1 mE q/L [facility]: [address] [facility] Normal Chloride Level 102 mEq/L 98-107 mEq/ L [facility]: [address] [facility] Normal Carbon Dioxide Level 27 mEq/L 21-32 mEq/L [facility]: [address] [facility] Normal Anion Gap 8 mEq/L 8-16 mEq/L [facility]: [address] [facility] Normal Calcium Level 9.6 mg/dL 8.5-10.1 mg/ dL [facility]: [address] [facility] 09/17/2020 TSH, Serum or Plasma Normal Thyroid Stimulating Hormone 1.520 uIU/mL 0.358-3.740 uIU/mL [facility] nter: [address] [facility] 09/17/2020 beta-HCG, Qualitative, Serum or Plasma Normal HCG, Serum Qualitative negative negative [facility]: [address] [facility] 09/17/2020 UA W/ Reflex to Culture Normal Appearance, Urine Rfx clear clear [facility]: [address] [facility] Normal Color, Urine Rfx straw yellow [facility]: [address] [facility] Normal pH,urine Rfx 7.0 units 5.0-9.0 units [facility]: [address] [facility] Normal Specific [place] Ur Auto Rfx 1.008 1.002-1.035 [facility]: [address] [facility] Normal Protein, Urine Auto Rfx negative mg/ dL negative mg/dL [facility]: [address] [facility] Normal Glucose, Urine (UA) Auto Rfx n egative mg/dL negative mg/dL [facility]: [address] [facility] Normal Ketone, Urine Auto Rfx negative mg/d L negative mg/dL [facility]: [address] [facility] Normal Urobilinogen, Urine Auto Rfx 0.2 mg/ dL 0.0-2.0 mg/dL [facility]: [address] [facility] Normal Bilirubin, Urine Auto Rfx negative n egative [facility]: [address] [facility] Normal Nitrite, Urine Auto Rfx negative neg ative [facility]: [address] [facility] Normal Leukocyte Esterase Ur Auto Rfx negat socrates negative [facility]: [address] [facility] Normal Blood, Urine Blood Rfx negative nega tive [facility]: [address] [facility] Normal WBC, Urine Auto Rfx 1 /hpf 0-3 /hpf [facility]: [address] [facility] Normal RBC, Urine Auto Rfx 1 /hpf 0-3 /hpf [facility]: [address] [facility] Normal Bacteria, Urine Auto Rfx negative ne gative [facility]: [address] [facility] Normal Squam Epithelial Cell Ur Aurfx 2 /hp f 0-6 /hpf [facility]: [address] [facility] Normal Hyaline Cast, Urine Auto Rfx 0 /lpf 0-1 /lpf [facility]: [address] [facility] 09/17/2020 Levetiracetam, Serum Low Levetiracetam ( Keppra) <1.0 ug/mL 10.0-40.0 ug/mL [facility]: [address] [facility] 09/12/2020 CBC W/ Auto Diff High White Blood Count 12.8 10 4.0-10.0 10 [facility]: [address] [facility] Normal Red Blood Count 4.56 10 4.00-5.40 10 [facility]: [address] [facility] Low Hemoglobin 11.4 g/dL 12.0-15.5 g/dL [facility]: [address] [facility] Normal Hematocrit 37.5 % 36.0-47.0 % [facility]: [address] [facility] Normal Mean Corpuscular Volume 82.2 fL 80.0 -96.0 fL [facility]: [address] [facility] Low Mean Corpuscular Hemoglobin 25.0 pg 27.0-33.0 pg [facility]: [address] [facility] Low Mean Corpuscular HGB Conc 30.4 g/dL 32.0-36.5 g/dL [facility]: [address] [facility] High Red Cell Distribution Width 14.8 % 1 1.5-14.5 % [facility]: [address] [facility] Normal Platelet Count, Automated 329 10 150 -450 10 [facility]: [address] [facility] High Neutrophils % 71.9 % 36.0-66.0 % [facility]: [address] [facility] Low Lymph % 17.9 % 24.0-44.0 % [facility]: [address] [facility] High Cecil % 5.1 % 0.0-5.0 % [facility]: [address] [place] [address] High Eos % 4.2 % 0.0-3.0 % [facility]: 0 [facility] Normal Baso % 0.5 % 0.0-1.0 % [facility]: [address] [place] [address] Normal Immature Granulocyte % 0.4 % 0-3.0 % [facility]: [address] [facility] Normal Nucleated Red Blood Cell % 0.0 % 0- 0 % [facility]: [address] [facility] High Neutrophils # 9.2 10 1.5-8.5 10 [facility]: [address] [facility] Normal Lymph # 2.3 10 1.5-5.0 10 [facility]: [address] [facility] Normal Cecil # 0.7 10 0.0-0.8 10 [facility]: [address] [facility] Normal Eos # 0.5 10 0.0-0.5 10 [facility]: [address] [facility] Normal Baso # 0.1 10 0.0-0.2 10 [facility]: [address] [place] [address] 09/12/2020 ESR (Erythrocyte Sedimentation Rate), Blood Hig h Erythrocyte Sedimentation Rate 60 mm/HR 0-20 mm/HR [facility]: [address] [place] [address] 09/12/2020 CMP, Serum or Plasma Normal Glucose, Fastin g 98 mg/dL 70-100 mg/dL [facility]: [address] [facility] Normal Blood Urea Nitrogen 8 mg/dL 7-18 mg/ dL [facility]: [address] [facility] Normal Creatinine for GFR 0.61 mg/dL 0.55-1 .30 mg/dL [facility]: [address] [facility] Normal Glomerular Filtration Rate > 60.0 >6 0 [facility]: [address] [facility] Normal Sodium Level 141 mEq/L 136-145 mEq/L [facility]: [address] [facility] Normal Potassium Serum 3.9 mEq/L 3.5-5.1 mE q/L [facility]: [address] [facility] High Chloride Level 109 mEq/L 98-107 mEq/ L [facility]: [address] [facility] Normal Carbon Dioxide Level 25 mEq/L 21-32 mEq/L [facility]: [address] [facility] Low Anion Gap 7 mEq/L 8-16 mEq/L [facility]: [address] [facility] Normal Calcium Level 9.3 mg/dL 8.5-10.1 mg/ dL [facility]: [address] [facility] Normal AST/SGOT 14 U/L 7-37 U/L [facility]: [address] [facility] Normal ALT/SGPT 18 U/L 12-78 U/L [facility]: [address] [facility] High Alkaline Phosphatase 120 U/L 45-117 U/L [facility]: [address] [facility] Normal Bilirubin,total 0.4 mg/dL 0.2-1.0 mg /dL [facility]: [address] [facility] Normal Total Protein 7.1 gm/dL 6.4-8.2 gm/d L [facility]: [address] [facility] Normal Albumin 3.6 gm/dL 3.2-5.2 gm/dL [facility]: [address] [facility] Low Albumin/globulin Ratio 1.0 1.2-2. 2 Final [facility]: [address] [facility] 09/12/2020 C Reactive Protein, QN, Serum or Plasma High C Reactive Protein Quantitativ 10.80 mg/dL 0.00-0.30 mg/dL Final [facility]: [address] [facility] Past Encounters 10/19/2020 Essential Hypertension JAVY PeteC: [address] [facility] [address] [address], Ph. 10/05/2020 Essential Hypertension; Pulmonary Hypertension; Deep Venous Thrombosis; Lupus Erythematosus; Contraception Care Management MAZIN Pete: [address] [facility] [address], [place] [address], Ph. 09/13/2020 Lupus Erythematosus; Migraine; Asthma; Essential Hypertension JAVY PeteC: [address] [facility] [address] [address], Ph. Social History Tobacco Smoking Status Never Smoker Vaccine List Vaccine Type Tdap 06/24/20200.5 mL Plan of Care Reminders Provider Appointments None recorded. Lab None recorded. Referral None recorded. Procedures None recorded. Surgeries None recorded. Imaging None recorded. Vitals 10/05/2020 01:50PM HOSPITAL DISCHARGE Height Weight BMI Blood Pressure 64 in 265 lbs 45.5 kg/m2 115/84 mm[Hg] 09/13/2020 02:50PM ESTABLISHED [id number] Height Weight BMI Blood Pressure 64 in (1) 143/99 mm[H g] (2) 146/97 mm[Hg] 06/24/2020 Height Weight Blood Pressure 64 in 271 lbs 126/87 mm[Hg]
--- OUTSIDE RECORDS SUMMARY | 2020-11-28 15:24 | CCD ---
Author Author [facility] Organization [facility] Address Unknown Phone Unavailable Care Team Providers Care Internet Sales Representative Name Role Phone Ac Vicente Unavailable PROBLEMS Type Condition ICD9-CM Code DME12-IJ Code Onset Dates Condition S tatus SNOMED Code Notes Problem Migraine, unspecified, not intractable, without status migrainosus G43.909 Active 01701915 Problem Chronic migraine without aur a, not intractable, without status migrainosus G43.709 Active [id number] ALLERGIES Allergen (clinical drug ingredient) Drug/Non Drug Allergy do cumented on EMR Reaction Allergy Type Onset Date Status promethazine Phenergan(ND Code:[address]-83) Nausea/Vomiting Drug A llergy Active Latex Exam Gloves Hives Drug Allergy Activ e famotidine Pepcid(ND Code:[address]-89) Nausea/Vomiting Drug Allerg y Active hydroxychloroquine Plaquenil(ND Code:[address]-08) Anaphylaxis Drug Allergy Active ENCOUNTERS from 1989 to 2020-11-23 Encounter Location Date Provider Diagnosis [facility] [address] [place] [phone] Nov, Ac Vicente IMMUNIZATIONS No Information SOCIAL HISTORY Tobacco Use: Social History Observation Description Date Details (start date - stop date) Former Smoker Sex Assigned At : Social History Observation Description Sex Assigned At Unknown Education: Question Answer Notes Level of Education: College Language: Question Answer Notes Languages spoken: Urdu Methodist: Question Answer Notes Methodist No jehovah's witness beliefs that would impact health care. Alcohol [...] Notes Start Da te End Date Status PrednisoLONE _ 1 tablet in the morning with food or milk Orally PATIENT STATES SHE IS CURRENTLY ON A TAPERING DOSE OF PREDNISONE Not-Taking NIFEdipine ER 60 MG 1 tablet on an empty stomach Orally Once a day for 30 day(s) Active Fiorinal 50-325-40 MG 1 capsule as needed Orally three times yared ly as needed Active PROzac 20 MG 3 TABS Orally 60 MG DAILY Active Albuterol Sulfate HFA 108 (90 Base) MCG/ACT 1 puff as needed Inhalation every 4 hrs Active Hydrocodone-Acetaminophen 5-325 MG 1 tablet as needed Orally three times daily as needed Active Botox 100 UNIT for IM injection at the head , neck and shoulder muscles ICD G43.709 BOTOX APPT ON 11/22/2020 AT 2PM. Nov, Active Hydrochlorothiazide 25 MG 1 tablet in the morning Oral ly Once a day for 30 day(s) Active Keppra 750 MG 2 tabs Orally bid Acti ve SEROquel 50 MG 1 cap Orally MORNING AND LUNCH Active Fioricet 50-325-40 MG 1 tablet as needed Orally every 4 hrs Active Albuterol ALBUTEROL NEBULIZERS PRN Active SEROquel 300 MG 1 tablet at bedtime Orally Once a day for 30 day(s) Active Eliquis 5MG ORAL BID Active PROCEDURES No Information RESULTS No Results REASON FOR VISIT Refill Fioricet MEDICAL (GENERAL) HISTORY Type Description Date Medical [...] Information ASSESSMENTS No Information PLAN OF TREATMENT Medication Medication Name Sig Start Date Stop Date Fioricet 50-325-40 MG 1 tablet as needed Orally every 4 hrs Fiorinal 50-325-40 MG 1 capsule as needed Orally three times yared ly as needed Next Appt Details Provider Name:Ac Vicente, 2020-12-03 11:00:00 AM, [address] [place], [address], Insurance Providers Payer Name Payer Address Payer Phone Insured Name Patient Relati onship to Insured Coverage Start Date Coverage End Date [facility] CLAIMS DEPT [address] [facility] [phone] WINSOME RODRIGUEZ self
--- OUTSIDE RECORDS SUMMARY | 2020-11-28 15:24 | CCD ---
Author Author [facility] Organization [facility] Address Unknown Phone Unavailable Care Team Providers Care Internet And E Business Project Manager Name Role Phone Kris Barrientos Unavailable PROBLEMS Type Condition ICD9-CM Code [id number] Code Onset Dates Condition S tatus SNOMED Code Notes Problem Migraine, unspecified, not intractable, without status migrainosus G43.909 Active 46991460 Problem Chronic migraine without aur a, not intractable, without status migrainosus G43.709 Active [id number] ALLERGIES Allergen (clinical drug ingredient) Drug/Non Drug Allergy do cumented on EMR Reaction Allergy Type Onset Date Status promethazine Phenergan(ND Code:[address]-03) Nausea/Vomiting Drug A llergy Active Latex Exam Gloves Hives Drug Allergy Activ e famotidine Pepcid(ND Code:[address]-69) Nausea/Vomiting Drug Allerg y Active hydroxychloroquine Plaquenil(ND Code:[address]-65) Anaphylaxis Drug Allergy Active ENCOUNTERS from 1989 to 2020-11-19 Encounter Location Date Provider Diagnosis [facility] [address] [place] [phone] Nov, Kris Barrientos IMMUNIZATIONS No Information SOCIAL HISTORY Tobacco Use: Social History Observation Description Date Details (start date - stop date) Former Smoker Sex Assigned At : Social History Observation Description Sex Assigned At Unknown Education: Question Answer Notes Level of Education: College Language: Question Answer Notes Languages spoken: Malay Sabianist: Question Answer Notes Sabianist No church beliefs that would impact health care. Alcohol [...] Information RESULTS No Results REASON FOR VISIT BOTOX APPT MEDICAL (GENERAL) HISTORY Type Description Date Medical [...] Details Provider Name:Kris Barrientos, 2020-11-22 02:00:00 PM, [address] [place] [address], [phone], Provider Name:Ac Vicente, 2020-12-03 11:00:00 AM, [address] [place], [phone], Insurance Providers Payer Name Payer Address Payer Phone Insured Name Patient Relati onship to Insured Coverage Start Date Coverage End Date [facility] CORPORATE CLAIMS DEPT [address] [facility] [phone] WINSOME RODRIGUEZ self
--- OUTSIDE RECORDS SUMMARY | 2020-11-28 15:24 | CCD ---
Author Author [facility] [employer] [facility] Organization [facility] Address Unknown Phone Unavailable Care Team Providers Care Furniture Mechanic Name Role Phone Kris Barrientos Unavailable PROBLEMS Type Condition ICD9-CM Code [id number] Code Onset Dates Condition S tatus SNOMED Code Notes Problem Migraine, unspecified, not intractable, without status migrainosus G43.909 Active 15686101 Problem Chronic migraine without aur a, not intractable, without status migrainosus G43.709 Active 439934083224229 ALLERGIES Allergen (clinical drug ingredient) Drug/Non Drug Allergy do cumented on EMR Reaction Allergy Type Onset Date Status promethazine Phenergan([facility] Code:[address]-06) Nausea/Vomiting Drug A llergy Active Latex Exam Gloves Hives Drug Allergy Activ e famotidine Pepcid(ND Code:[address]-35) Nausea/Vomiting Drug Allerg y Active hydroxychloroquine Plaquenil(ND Code:[address]-46) Anaphylaxis Drug Allergy Active ENCOUNTERS from 1989 to 2020-11-23 Encounter Location Date Provider Diagnosis [facility] [address] [place] [phone] Nov, Kris Barrientos IMMUNIZATIONS No Information SOCIAL HISTORY Tobacco Use: Social History Observation Description Date Details (start date - stop date) Former Smoker Sex Assigned At : Social History Observation Description Sex Assigned At Unknown Education: Question Answer Notes Level of Education: College Language: Question Answer Notes Languages spoken: Gabonese Mandaen: Question Answer Notes Mandaen No holiness beliefs that would impact health care. Alcohol [...] Information RESULTS No Results REASON FOR VISIT MEDICAL (GENERAL) HISTORY Type Description Date Medical [...] Provider Name:Ac Vicente, 2020-12-03 11:00:00 AM, [address] [place], [phone], Insurance Providers Payer Name Payer Address Payer Phone Insured Name Patient Relati onship to Insured Coverage Start Date Coverage End Date [facility] [employer] CLAIMS DEPT [address] [facility] [phone] WINSOME RODRIGUEZ self
--- OUTSIDE RECORDS SUMMARY | 2020-11-28 15:24 | CCD ---
Author Author [facility] Organization [facility] Address Unknown Phone Unavailable Care Team Providers Care Federal Aid Coordinator Name Role Phone Ac Vicente Unavailable PROBLEMS Type Condition ICD9-CM Code MSQ17-YP Code Onset Dates Condition S tatus SNOMED Code Notes Problem Migraine, unspecified, not intractable, without status migrainosus G43.909 Active 16016005 Problem Chronic migraine without aur a, not intractable, without status migrainosus G43.709 Active 253146081992369 ALLERGIES Allergen (clinical drug ingredient) Drug/Non Drug Allergy do cumented on EMR Reaction Allergy Type Onset Date Status promethazine Phenergan([facility] Code:[address]-26) Nausea/Vomiting Drug A llergy Active Latex Exam Gloves Hives Drug Allergy Activ e famotidine Pepcid(ND Code:[address]-23) Nausea/Vomiting Drug Allerg y Active hydroxychloroquine Plaquenil(ND Code:[address]-91) Anaphylaxis Drug Allergy Active ENCOUNTERS from 1989 to 2020-10-21 Encounter Location Date Provider Diagnosis [facility] [address] [place] [phone] Oct, Ac Vicente IMMUNIZATIONS No Information SOCIAL HISTORY Tobacco Use: Social History Observation Description Date Details (start date - stop date) Former Smoker Sex Assigned At : Social History Observation Description Sex Assigned At Unknown Education: Question Answer Notes Level of Education: College Language: Question Answer Notes Languages spoken: Austrian Evangelical: Question Answer Notes Evangelical No hinduism beliefs that would impact health care. Alcohol [...] CURRENTLY ON A TAPERING DOSE OF PREDNISONE Active Fiorinal 50-325-40 MG 1 capsule as needed Orally three times yared ly as needed Active Hydrocodone-Acetaminophen 5-325 MG 1 tablet as needed Orally three times daily as needed Active PROzac 20 MG 2 TABS Orally Once a day 60 MG DAILY Active SEROquel 50 MG 1 cap Orally MORNING AND LUNCH Active Albuterol Sulfate HFA 108 (90 Base) MCG/ACT 1 puff as needed Inhalation every 4 hrs Active Keppra 750 MG 2 tabs Orally bid Acti ve Albuterol ALBUTEROL NEBULIZERS PRN Active NIFEdipine ER 60 MG 1 tablet on an empty stomach Orally Once a day for 30 day(s) Active Hydrochlorothiazide 25 MG 1 tablet in the morning Oral ly Once a day for 30 day(s) Active SEROquel 300 MG 1 tablet at bedtime Orally Once a day for 30 day(s) Active PROCEDURES No Information RESULTS No Results REASON FOR VISIT on blood thinner MEDICAL (GENERAL) HISTORY Type Description Date Medical [...] Details Provider Name:Kris Barrientos, 2020-11-22 02:00:00 PM, [address] [place] [address], [phone], Provider Name:Ac Vicente, 2020-12-03 11:00:00 AM, [address] [place] [address], [phone], Insurance Providers Payer Name Payer Address Payer Phone Insured Name Patient Relati onship to Insured Coverage Start Date Coverage End Date [facility] CORPORATE CLAIMS DEPT [address] [facility] [phone] WINSOME RODRIGUEZ self
--- OUTSIDE RECORDS SUMMARY | 2020-11-28 15:24 | CCD ---
Author Author [facility] Organization [facility] Address Unknown Phone Unavailable Care Team Providers Care Bead Cutter Name Role Phone Kris Barrientos Unavailable PROBLEMS Type Condition ICD9-CM Code NWL47-FM Code Onset Dates Condition S tatus SNOMED Code Notes Problem Migraine, unspecified, not intractable, without status migrainosus G43.909 Active 13733469 Problem Chronic migraine without aur a, not intractable, without status migrainosus G43.709 Active 539304125115686 ALLERGIES Allergen (clinical drug ingredient) Drug/Non Drug Allergy do cumented on EMR Reaction Allergy Type Onset Date Status promethazine Phenergan([facility] Code:[address]-31) Nausea/Vomiting Drug A llergy Active Latex Exam Gloves Hives Drug Allergy Activ e famotidine Pepcid(ND Code:[address]-36) Nausea/Vomiting Drug Allerg y Active hydroxychloroquine Plaquenil(ND Code:[address]-87) Anaphylaxis Drug Allergy Active ENCOUNTERS from 1989 to 2020-11-23 Encounter Location Date Provider Diagnosis [facility] [address] [place] [phone] Nov, Kris Barrientos Chronic migraine without aura, not intra ctable, without status migrainosus G43.709 IMMUNIZATIONS No Information SOCIAL HISTORY Tobacco Use: Social History Observation Description Date Details (start date - stop date) Former Smoker Sex Assigned At : Social History Observation Description Sex Assigned At Unknown Education: Question Answer Notes Level of Education: College Language: Question Answer Notes Languages spoken: Citizen Of [place] Advent: Question Answer Notes Advent No christian beliefs that would impact health care. Alcohol Screening: Question Answer Notes Did you have a drink containing alcohol in the past year? No Points 0 Interpretation Negative Tobacco Use: Question Answer Notes Are you a: former smoker How long has it been since you last smoked? > 10 years REASON FOR REFERRAL No Information VITAL SIGNS Weight 270.6 lbs Nov, Height 64 in Nov, BMI 46.44 kg/m2 Nov, Heart Rate 89 /min Nov, Respiratory Rate 18 /min Nov, Temperature 98.4 degrees Fahrenheit Nov, Oximetry 98% RA Nov, Blood pressure systolic 136 mm Hg Nov, Blood pressure diastolic 62 MANUAL mm Hg Nov, MEDICATIONS Medication SIG (Take, Route, Frequency, Duration) [...] Active Eliquis 5MG ORAL BID Active PROCEDURES from 1989 to 2020-11-23 Procedure Date Ordered Result Body Site Medication: Valium Tab 10mg Orally (Diazepam) 2020-11-22 N/ A Medication: Industry Tablet 5mg/325mg Orally (Hydrocodone /Acetaminophen) 2020-11-22 N/A RESULTS No Results REASON FOR VISIT Botox injections to the head, neck and shoulder areas MEDICAL (GENERAL) HISTORY Type Description Date Medical [...] No Information FUNCTIONAL STATUS No Information ASSESSMENTS Encounter Date Diagnosis Assessment Notes Treatment Notes Treatm ent Clinical Notes Nov, Chronic migraine without aur a, not intractable, without status migrainosus (ICD-10 - G43.709) Discharge instructions reviewed alonso patient and she verbalized understanding. Nov, Other 11/19/20 1812 PAT COMPLETED. PLAN OF TREATMENT Medication Medication Name Sig Start Date Stop Date Fioricet 50-325-40 MG 1 tablet as needed Orally every 4 hrs Fiorinal 50-325-40 MG 1 capsule as needed Orally three times yared ly as needed Treatment Notes Assessment Notes Clinical Notes Chronic migraine without aura, not intractable, withou t status migrainosus Discharge instructions reviewed alonso patient and she verbalized understanding. 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
--- OUTSIDE RECORDS SUMMARY | 2020-11-28 15:24 | CCD ---
Author Author [facility] Organization [facility] [employer] [facility] Address Unknown Phone Unavailable Care Team Providers Care Electronic Data Interchange Specialist Name Role Phone Ac Vicente Unavailable PROBLEMS Type Condition ICD9-CM Code [id number] Code Onset Dates Condition S tatus SNOMED Code Notes Problem Migraine, unspecified, not intractable, without status migrainosus G43.909 Active 61397642 Problem Chronic migraine without aur a, not intractable, without status migrainosus G43.709 Active 232478801905837 ALLERGIES Allergen (clinical drug ingredient) Drug/Non Drug Allergy do cumented on EMR Reaction Allergy Type Onset Date Status promethazine Phenergan([facility] Code:[address]-06) Nausea/Vomiting Drug A llergy Active Latex Exam Gloves Hives Drug Allergy Activ e famotidine Pepcid(ND Code:[address]-08) Nausea/Vomiting Drug Allerg y Active hydroxychloroquine Plaquenil(ND Code:[address]-30) Anaphylaxis Drug Allergy Active ENCOUNTERS from 1989 to 2020-10-21 Encounter Location Date Provider Diagnosis [facility] [address] [place] [phone] Oct, Ac Vicente IMMUNIZATIONS No Information SOCIAL HISTORY Tobacco Use: Social History Observation Description Date Details (start date - stop date) Former Smoker Sex Assigned At : Social History Observation Description Sex Assigned At Unknown Education: Question Answer Notes Level of Education: College Language: Question Answer Notes Languages spoken: Guinean Islam: Question Answer Notes Islam No yarsanism beliefs that would impact health care. Alcohol [...] Information RESULTS No Results REASON FOR VISIT Discuss Blood Clot MEDICAL (GENERAL) HISTORY Type Description Date Medical [...] Details Provider Name:Kris Barrientos, 2020-11-22 02:00:00 PM, [address] [place] [address], [phone], Provider Name:Ac Vicente, 2020-12-03 11:00:00 AM, [address] [place] [address], [phone], Insurance Providers Payer Name Payer Address Payer Phone Insured Name Patient Relati onship to Insured Coverage Start Date Coverage End Date [facility] CORPORATE CLAIMS DEPT [address] [facility] [phone] WINSOME RODRIGUEZ self
[2020-11-28] MEDS ORDERED: BENL200I (15:25)
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
--- OUTSIDE RECORDS SUMMARY | 2020-11-28 15:25 | CCD ---
Author Organization Unknown Address [address] [place] [address] Phone [phone] Care Team Providers Care Internal Medicine Specialist Name Role Phone Hugh Valente Maksim Unavailable [...] Not available albuterol sulfate HFA 90 mcg/actuation aerosol inhaler Active Not available alcohol swabs Active Not available amoxicillin 875 mg-potassium clavulanate 125 mg tablet Completed 09/13/2020 aspirin 81 mg tablet,delayed release Completed 09/13/2020 bacitracin 500 unit/gram topical ointment Completed 09/13/2020 BD Allergy Syringe 1 mL 28 gauge x 1/2" Active Not available BD Luer-Candice Syringe 3 mL 25 gauge x 1" Active Not available buspirone 5 mg tablet TAKE ONE TABLET BY MOUTH TWICE A DAY Active No t available oxjmoltngn-sxckdlgjtkdod-kuwzyyds 50 mg- 325 mg-40 mg tablet TAKE [...] Active Not available DOK 100 mg capsule Active Not available epinephrine 0.3 mg/0.3 mL [...] solution Completed 09/13/2020 hydrochlorothiazide 12.5 mg capsule Active Not available hydrochlorothiazide 12.5 mg tablet [...] lidocaine 4 % topical cream Completed 12/2019 magnesium oxide 400 mg (241.3 mg magnesium) tablet Completed 09/13/2020 metformin 500 mg tablet Completed 09/13/20 20 metoclopramide 10 mg tablet Completed 12/2019 metronidazole 500 mg tablet Completed 12/2019 Nexium 24HR 20 mg tablet,delayed release Completed 09/13/2020 nifedipine ER 30 mg tablet,extended rele ase TAKE ONE TABLET BY MOUTH ONCE DAILY Active Not available ondansetron 8 mg disintegrating tablet Completed 09/13/2020 oxycodone 5 mg tablet Completed 09/13/2020 oxycodone-acetaminophen 5 mg-325 mg tablet Completed 09/13/2020 prazosin 1 mg capsule Completed 09/13/2020 prednisone 10 mg tablet Completed 09/13/20 20 prednisone 20 mg tablet Take 3 tablets po day 1-3, 2 tablets day 4-7, 1 tablet day 8-10 Active Not available prednisone 50 mg tablet Completed 09/13/20 20 pregabalin 75 mg capsule Take 1 capsule every day by oral route for 30 days. Active Not available Vitamin 27 mg iron-0.8 mg tablet Active Not available progesterone micronized 200 mg capsule Completed 09/13/2020 quetiapine 100 mg tablet Completed 020 quetiapine 300 mg tablet Take 1 tablet every day by oral route around the clock for 30 days. Active Not available quetiapine 50 mg tablet Take 1 tablet twice a day by oral route for 30 days. Active Not available topiramate 25 mg tablet Completed 09/13/20 20 topiramate 50 mg tablet Completed 09/13/20 20 tramadol 50 mg tablet Completed 09/13/2020 Vitamin C 500 mg tablet Completed 09/13/20 Vitamin D2 1,250 mcg (50,000 unit) capsule Completed 09/13/2020 Problems Name Status Onset Date Source Body Mass Index 30+ - Obesity Active 06/24/2020 Hi story Severe Obesity Active 06/24/2020 History Influenza Vaccine Needed Active 06/24/2020 History Procedure Unknown 06/24/[address] Concept Unknown 06/24/2020 History Lupus Erythematosus Active 09/13/2020 Procedures Notes: section x5, Involuntary D&C, Appendectomy, Tonsillectomy, Gallbladder Results Lab Results Date Name Specimen Result Interpretation Description Value Range Status Address 09/17/2020 CBC W/ Auto Diff High White Blood Count 14.6 10 4.0-10.0 10 [facility]: [address] [facility] Normal Red Blood Count 4.59 10 4.00-5.40 10 [facility]: [address] [place] [address] Low Hemoglobin 11.4 g/dL 12.0-15.5 g/dL [facility]: 0 [facility] Normal Hematocrit 37.8 % 36.0-47.0 % [facility]: 0 [facility] Normal Mean Corpuscular Volume 82.4 fL 80.0 -96.0 fL [facility]: [address] [facility] Low Mean Corpuscular Hemoglobin 24.8 pg 27.0-33.0 pg Final [facility]: [address] [facility] Low Mean Corpuscular HGB Conc 30.2 g/dL 32.0-36.5 g/dL Final [facility]: [address] [facility] Normal Red Cell Distribution Width 14.4 % 1 1.5-14.5 % Final [facility]: [address] [facility] Normal Platelet Count, Automated 368 10 150 -450 10 [facility]: [address] [facility] High Neutrophils % 85.4 % 36.0-66.0 % [facility]: [address] [facility] Low Lymph % 11.4 % 24.0-44.0 % Final [facility]: [address] [facility] Normal [place] % 1.3 % 0.0-5.0 % Final [facility]: [address] [facility] Normal Eos % 0.7 % 0.0-3.0 % [facility]: [address] [facility] Normal Baso % 0.4 % 0.0-1.0 % [facility]: [address] [facility] Normal Immature Granulocyte % 0.8 % 0-3.0 % [facility]: [address] [facility] Normal Nucleated Red Blood Cell % 0.0 % 0- 0 % [facility]: [address] [facility] High Neutrophils # 12.5 10 1.5-8.5 10 [facility]: [address] [facility] Normal Lymph # 1.7 10 1.5-5.0 10 [facility]: [address] [facility] Normal [place] # 0.2 10 0.0-0.8 10 [facility]: [address] [facility] Normal Eos # 0.1 10 0.0-0.[address] [facility]: [address] [facility] Normal Baso # 0.1 10 0.0-0.2 10 [facility]: [address] [facility] 09/17/2020 Glucose, Fingerstick, Blood High Bedside Glucose 137 mg/dL 70- 105 mg/dL [facility]: [address] [facility] 09/17/2020 BMP, Serum or Plasma High Glucose, Fastin g 133 mg/dL 70-100 mg/dL [facility]: [address] 0 [facility] Normal Blood Urea Nitrogen 15 mg/dL 7-18 mg /dL [facility]: [address] [facility] Normal Creatinine for GFR 0.73 mg/dL 0.55-1 .30 mg/dL [facility]: 0 [facility] Normal Glomerular Filtration Rate > 60.0 >6 0 [facility]: [address] [facility] Normal Sodium Level 137 mEq/L 136-145 mEq/L [facility]: [address] [facility] Normal Potassium Serum 3.8 mEq/L 3.5-5.1 mE q/L [facility]: [address] [facility] Normal Chloride Level 102 mEq/L 98-107 mEq/ L [facility]: 0 [facility] Normal Carbon Dioxide Level 27 mEq/L 21-32 mEq/L [facility]: 0 [facility] Normal Anion Gap 8 mEq/L 8-16 mEq/L [facility]: 0 [facility] Normal Calcium Level 9.6 mg/dL 8.5-10.1 mg/ dL [facility]: [address] [facility] 09/17/2020 TSH, Serum or Plasma Normal Thyroid Stimulating Hormone 1.520 uIU/mL 0.358-3.740 uIU/mL [facility]: 0 [facility] 09/17/2020 beta-HCG, Qualitative, Serum or Plasma Normal HCG, Serum Qualitative negative negative [facility]: [address] [place] [address] 09/17/2020 UA W/ Reflex to Culture Normal Appearance, Urine Rfx clear clear [facility]: [address] [facility] Normal Color, Urine Rfx straw yellow [facility]: [address] [facility] Normal pH,urine Rfx 7.0 units 5.0-9.0 units [facility]: [address] [facility] Normal Specific [place] Ur Auto Rfx 1.008 1.002-1.035 [facility]: [address] [facility] Normal Protein, Urine Auto Rfx negative mg/ dL negative mg/dL [facility]: [address] [facility] Normal Glucose, Urine (UA) Auto Rfx n egative mg/dL negative mg/dL [facility]: [address] [facility] Normal Ketone, Urine Auto Rfx negative mg/d L negative mg/dL [facility]: [address] [facility] Normal Urobilinogen, Urine Auto Rfx 0.2 mg/ dL 0.0-2.0 mg/dL [facility]: [address] [facility] Normal Bilirubin, Urine Auto Rfx negative n egative [facility]: [address] [facility] Normal Nitrite, Urine Auto Rfx negative neg ative [facility]: [address] [facility] Normal Leukocyte Esterase Ur Auto Rfx negat socrates negative [facility]: [address] [facility] Normal Blood, Urine Blood Rfx negative nega tive [facility]: [address] [facility] Normal WBC, Urine Auto Rfx 1 /hpf 0-3 /hpf [facility]: [address] [facility] Normal RBC, Urine Auto Rfx 1 /hpf 0-3 /hpf [facility]: [address] [facility] Normal Bacteria, Urine Auto Rfx negative ne gative [facility]: [address] [facility] Normal Squam Epithelial Cell Ur Aurfx 2 /hp f 0-6 /hpf [facility]: [address] [facility] Normal Hyaline Cast, Urine Auto Rfx 0 /lpf 0-1 /lpf [facility]: [address] [facility] 09/17/2020 Levetiracetam, Serum Low Levetiracetam ( Keppra) <1.0 ug/mL 10.0-40.0 ug/mL [facility]: [address] [facility] 09/12/2020 CBC W/ Auto Diff High White Blood Count 12.8 10 4.0-10.0 10 [facility]: [address] [facility] Normal Red Blood Count 4.56 10 4.00-5.40 10 [facility]: [address] [facility] Low Hemoglobin 11.4 g/dL 12.0-15.5 g/dL [facility]: [address] [facility] Normal Hematocrit 37.5 % 36.0-47.0 % [facility]: [address] [facility] Normal Mean Corpuscular Volume 82.2 fL 80.0 -96.0 fL [facility]: [address] [facility] Low Mean Corpuscular Hemoglobin 25.0 pg 27.0-33.0 pg [facility]: [address] [facility] Low Mean Corpuscular HGB Conc 30.4 g/dL 32.0-36.5 g/dL [facility]: [address] [facility] High Red Cell Distribution Width 14.8 % 1 1.5-14.5 % [facility]: [address] [facility] Normal Platelet Count, Automated 329 10 150 -450 10 [facility]: [address] [facility] High Neutrophils % 71.9 % 36.0-66.0 % [facility]: [address] [facility] Low Lymph % 17.9 % 24.0-44.0 % [facility]: [address] [facility] High [place] % 5.1 % 0.0-5.0 % [facility]: [address] [facility] High Eos % 4.2 % 0.0-3.0 % [facility]: [address] [facility] Normal Baso % 0.5 % 0.0-1.0 % [facility]: [address] [facility] Normal Immature Granulocyte % 0.4 % 0-3.0 % [facility]: [address] [facility] Normal Nucleated Red Blood Cell % 0.0 % 0- 0 % [facility]: [address] [facility] High Neutrophils # 9.2 10 1.5-8.5 10 [facility]: [address] [facility] Normal Lymph # 2.3 10 1.5-5.0 10 [facility]: [address] [facility] Normal [place] # 0.7 10 0.0-0.8 10 [facility]: 0 [facility] Normal Eos # 0.5 10 0.0-0.[address] [facility]: [address] [facility] Normal Baso # 0.1 10 0.0-0.2 10 [facility]: [address] [facility] 09/12/2020 ESR (Erythrocyte Sedimentation Rate), Blood Hig h Erythrocyte Sedimentation Rate 60 mm/HR 0-20 mm/HR [facility]: 0 [facility] 09/12/2020 CMP, Serum or Plasma Normal Glucose, Fastin g 98 mg/dL 70-100 mg/dL [facility]: [address] [facility] Normal Blood Urea Nitrogen 8 mg/dL 7-18 mg/ dL [facility]: 0 [facility] Normal Creatinine for GFR 0.61 mg/dL 0.55-1 .30 mg/dL [facility]: 0 [facility] Normal Glomerular Filtration Rate > 60.0 >6 0 [facility]: [address] [facility] Normal Sodium Level 141 mEq/L 136-145 mEq/L [facility]: 0 [facility] Normal Potassium Serum 3.9 mEq/L 3.5-5.1 mE q/L [facility]: [address] [place] [address] High Chloride Level 109 mEq/L 98-107 mEq/ L [facility]: [address] [place] [address] Normal Carbon Dioxide Level 25 mEq/L 21-32 mEq/L [facility]: [address] [place] [address] Low Anion Gap 7 mEq/L 8-16 mEq/L [facility]: [address] [place] [address] Normal Calcium Level 9.3 mg/dL 8.5-10.1 mg/ dL [facility]: [address] [place] [address] Normal AST/SGOT 14 U/L 7-37 U/L [facility]: [address] [place] [address] Normal ALT/SGPT 18 U/L 12-78 U/L [facility]: [address] [place] [address] High Alkaline Phosphatase 120 U/L 45-117 U/L [facility]: [address] [place] [address] Normal Bilirubin,total 0.4 mg/dL 0.2-1.0 mg /dL [facility]: [address] [place] [address] Normal Total Protein 7.1 gm/dL 6.4-8.2 gm/d L [facility]: [address] [place] [address] Normal Albumin 3.6 gm/dL 3.2-5.2 gm/dL [facility]: [address] [place] [address] Low Albumin/globulin Ratio 1.0 1.2-2. 2 [facility]: [address] [place] [address] 09/12/2020 C Reactive Protein, QN, Serum or Plasma High C Reactive Protein Quantitativ 10.80 mg/dL 0.00-0.30 mg/dL [facility]: [address] [place] [address] Past Encounters 09/13/2020 Lupus Erythematosus; Migraine; Asthma; Essential Hypertension Hugh Valente, RPA-C: [address] [facility], [facility] [address] [address], Ph. Social History None recorded. Vaccine List Vaccine Type Tdap 06/24/20200.5 mL Plan of Care Reminders Provider Appointments None recorded. Lab None recorded. Referral None recorded. Procedures None recorded. Surgeries None recorded. Imaging None recorded. Vitals 09/13/2020 02:50PM ESTABLISHED [id number] Height Weight BMI Blood Pressure 64 in (1) 143/99 mm[H g] (2) 146/97 mm[Hg] 06/24/2020 Height Weight Blood Pressure 64 in 271 lbs 126/87 mm[Hg]
--- OUTSIDE RECORDS SUMMARY | 2020-11-28 15:25 | CCD ---
Author Author [employer] Organization [employer] Address Unknown Phone Unavailable Care Team Providers Care Qualitative Field Coordinator Name Role Phone Ac Vicente Unavailable PROBLEMS Type Condition ICD9-CM Code [id number] Code Onset Dates Condition S tatus SNOMED Code Notes Problem Migraine, unspecified, not intractable, without status migrainosus G43.909 Active 52116854 Problem Chronic migraine without aur a, not intractable, without status migrainosus G43.709 Active [id number] ALLERGIES Allergen (clinical drug ingredient) Drug/Non Drug Allergy do cumented on EMR Reaction Allergy Type Onset Date Status promethazine Phenergan([facility] Code:[address]-10) Nausea/Vomiting Drug A llergy Active Latex Exam Gloves Hives Drug Allergy Activ e famotidine Pepcid(ND Code:[address]-82) Nausea/Vomiting Drug Allerg y Active hydroxychloroquine Plaquenil(ND Code:[address]-40) Anaphylaxis Drug Allergy Active ENCOUNTERS from 1989 to 2020-09-18 Encounter Location Date Provider Diagnosis [facility] [address] [place] [id number] Sep, Ac Vicente Chronic migraine without aura, not intra ctable, without status migrainosus G43.709 IMMUNIZATIONS No Information SOCIAL HISTORY Tobacco Use: Social History Observation Description Date Details (start date - stop date) Former Smoker Sex Assigned At : Social History Observation Description Sex Assigned At Unknown Education: Question Answer Notes Level of Education: College Language: Question Answer Notes Languages spoken: Surinamese Roman Catholic: Question Answer Notes Roman Catholic No jainism beliefs that would impact health care. Alcohol Screening: Question Answer Notes Did you have a drink containing alcohol in the past year? No Points 0 Interpretation Negative Tobacco Use: Question Answer Notes Are you a: former smoker How long has it been since you last smoked? > 10 years REASON FOR REFERRAL No Information VITAL SIGNS Weight 277.2 lbs Sep, Height 64 in Sep, BMI 47.58 kg/m2 Sep, Heart Rate 98 /min Sep, Respiratory Rate 18 /min Sep, Temperature 97.5 degrees Fahrenheit Sep, Oximetry 96% Sep, Blood pressure systolic 123 mm Hg Sep, Blood pressure diastolic 73 mm Hg Sep, MEDICATIONS Medication SIG (Take, Route, Frequency, Duration) Start Date En d Date Status PrednisoLONE _ 1 tablet in [...] Keppra 750 MG 2 tabs Orally bid Active Albuterol ALBUTEROL NEBULIZERS PRN Ac tive NIFEdipine ER 60 MG 1 tablet on an empty stomach Orally Once a day for 30 day(s) Active Hydrochlorothiazide 25 MG 1 tablet in the morning Oral ly Once a day for 30 day(s) Active SEROquel 300 MG 1 tablet at bedtime Orally Once a day for 30 day(s) Active PROCEDURES No Information RESULTS No Results REASON FOR VISIT HEADACHES ..[facility] MEDICAL (GENERAL) HISTORY Type Description Date Medical [...] STATUS No Information ASSESSMENTS Encounter Date Diagnosis Notes Sep, Chronic migraine without aur a, not intractable, without status migrainosus (ICD-10 - G43.709) PLAN OF TREATMENT Next Appt Details post procedure Reason:botox injections Follow Up:post procedurebotox injections Insurance Providers Payer Name Payer Address Payer Phone Insured Name Patient Relati onship to Insured Coverage Start Date Coverage End Date [employer] DEPT [address] [facility] [phone] WINSOME RODRIGUEZ self
--- OUTSIDE RECORDS SUMMARY | 2020-11-28 15:25 | CCD | Continuity of Care Document ---
Author Author Ghada ROSSI MD Organization Unknown Address [address] [facility] [place], [facility] e [address] [place] [phone] Phone [phone] Care Team Providers Care Safety Coordinator Name Role Phone Jw Wagner DO AUTM [phone] Problems Description No Information Available Social History Type Date Description Comments Sex Unknown Allergies, Adverse Reactions, Alerts Description No Information Available Medications Active Medications SIG Qnty Indications Ordering Provide r Date Zanaflex 2mg Capsules 1 by mouth 3 times a day 40caps S32.2xxA Johnathan Lares MD 8 Topiramate 25mg Tablets Take One Tablet By Mouth Twice A Day Unknown Heparin Sodium (Porcine) 5000Unit/ML Solution Inject 2 MLS The Contents Of [address] awn Up In 1 Syringe Under The Skin Twicea Day as Directed Unknown 0 Dok 100mg Capsules Take One Capsule By Mouth Twice A Day Unknown BD 3ML Luer-Candice Syringe/25G X 1" 25G X 1" 3 ML Misc Use To Inject Heparin Unknown BD Allergy/Syringe/Needle/1ML/28G X 1/2" 28G X 1/2" 1 ML Misc Inject as Directed Unknown Epinephrine 0.3mg/0. 3ML Solution Auto-Inject Inject 1 Syringe Intramuscularly Once as Needed Shortness Of Josee ath Unknown SM Aspirin Adult Low Strength 81mg Tablets DR Take One Tablet By Mouth Every Day Unknow n Fondaparinux Sodium 2.5mg/0.5ML So lution Inject 0.5ML Subcutaneously Once Daily Unknown Prednisone 50mg Tablets Take One Tablet By Mouth Every Day For 3 Days Unknown Prednisone 20mg Tablets Take Two Tablets By Mouth Every Day For 3 Days Take One And One Half Tablets Every Day For 3 Days Take One Tablet Every Day For 3 Days Ta U nknown Ipratropium Heidrick/Albuterol Sulfate 0.5-2.5(3)mg/3ML Solution Inhale 1 Vial Via Nebulizer Every 6 Hours as Needed Unknown Cetirizine HCL 10mg Tablets Lorna Orellana PA Metformin HCL 500mg Tablets Take One Tablet By Mouth Every Day With A Meal Unknown Albuterol Sulfate HFA 108(90Base) mcg/Act Aerosol Inhale Two Puffs By Mouth Every 6 Hours as Needed Unknown Prednisone 10mg Tablets Sid De Souza MD Progesterone Micronized 200mg Capsules Unknown Nexium 24HR 20mg Tablets Unknown Ketoconazole 2% Cream Apply To Affected Area S Once Daily Unknown Metronidazole 500mg Tablets Take One Tablet By Mouth Twice A Day For 7 Days Unknown Fluconazole 150mg Tablets Take One Tablet By Mouth For 1 Dose Unknown Vitamin D (Ergocalciferol) 1.25mg (42237 Ut) Capsules Take By Mouth Alternating 1 Capsule Once Weekly Then 2 Capsules Once Weekly Unknown Prazosin HCL 1mg Capsules Take Three Capsules By Mouth AT Bedtime Unknown Ondansetron 8mg Tablets Dispers Place One Tablet Under The Tongue Four Times A Day as Needed Unknown Levetiracetam 1000mg Tablets Take One Tablet By Mouth Twice A Day Unknown Magnesium Oxide 400(241.3Mg) mg Ta blets Take One Tablet By Mouth Every Day Unknown Metoclopramide HCL 10mg Tablets Take One Tablet By Mouth Three Times A Day With Meals Unk nown Gabapentin 600mg Tablets Take One Tablet By Mouth Three Times A Day Unknown Hydrochlorothiazide 12.5mg Capsule s Take 2 Capsules By Mouth Once Daily In The Morning Unkn own Quetiapine Fumarate 100mg Tablets Take One And One Half Tablets By Mouth Every Day AT Bedtime Unknown Pregabalin 75mg Capsules Sid De Souza MD Quetiapine Fumarate 50mg Tablets Unknown Quetiapine Fumarate 300mg Tablets Unknown Deblitane 0.35mg Tablets Take One Tablet By Mouth Every Day Unknown Ibuprofen 600mg Tablets Take One Tablet By Mouth Every 6 Hours as Needed For Pain Unknown 27-0.8mg Tablets Take One Tablet By Mouth Every Day Unknown Butalbital/Acetaminophen/Caffeine 50-325-40mg Tablets Unknown Fluoxetine HCL 20mg Capsules Take One Capsule By Mouth Every Day Unknown Buspirone HCL 5mg Tablets Take One Tablet By Mouth Twice A Day Unknown Fluoxetine HCL 40mg Capsules Take 1 Capsule By Mouth Once A Day Along With One 20MG Capsule To 60MG Total Daily Unknown Lidocaine 4% Cream Apply 1 Application Topically Three Times A Day To Affected Area S as Directed Unknown Oxycodone-Acetaminophen 5-325mg Ta blets Take One Tablet By Mouth Every 6 Hours as Needed For Pain Maximum Daily Dose 4 Tablets Unknown Butalbital/Acetaminophen/Caffeine 50-300-40mg Capsules Take One Capsule By Mouth Every 4 Hours as Needed Unknown Bacitracin (External) 500Unit/GM O intment Apply 1 Application Topically To Affected Area S Two Times A Day For 7 Days Unknown Nifedipine ER 30mg Tablets ER 24HR Take One Tablet By Mouth Once Daily Unknown 0 Levetiracetam 750mg Tablets Take Two Tablets By Mouth Twice A Day Unknown SM Esomeprazole Magnesium 20mg Capsules DR Take One Capsule By Mouth Every Morning Before Breakfast Unknown Clonazepam 0.5mg Tablets Take One Tablet By Mouth Three Times A Day Maximum Daily Dose 3 Tablets Unknown Ajovy 225mg/1.5ML Soln Prefill Syr lisbeth Inject Contents Of 1 Syringe Under The Skin Once A Month Unknown Ferrous Sulfate 324(65Fe) mg Table ts DR Take One Tablet By Mouth Twice A Day Unknown Vitamin C 500mg Tablets Take One Tablet By Mouth Twice A Day Unknown Vitamin D3 25mcg (1000 Ut) Tablets Take One And One Half Tablets By Mouth Every Day Unkn own Cephalexin 500mg Capsules Mike Howell, PRINCIPAL SECURITY ARCHITECT Tramadol HCL 50mg Tablets Take 1 Tablet By Mouth Every 8 Hours as Needed For Pain Maximum Daily Dose 3 Tablets Unknown Ibuprofen 800mg Tablets Take One Tablet By Mouth Every 8 Hours as Needed For Pain Unknown Acetaminophen 325mg Tablets Take Two Tablets By Mouth Every 4 Hours as Needed For Pain Unknown Oxycodone HCL 5mg Tablets Unknown Ulticare Alcohol Swabs 70% Pads Unknown Topiramate 50mg Tablets Take One Tablet By Mouth Twice A Day Unknown Immunizations Description No Information Available Vital Signs Date Vital Result Comment 08/31/2020 1:54pm Body Temperature 97.5 F Height 66 inches 5'6" Weight 270.00 lb BMI (Body Mass Index) 43.6 kg/m2 09/04/2018 3:17pm Body Temperature 98.8 F Height 64 inches 5'4" Weight 230.00 lb BMI (Body Mass Index) 39.5 kg/m2 Results Description No Information Available Procedures Description No Information Available Medical Devices Description No Information Available Encounters Type Date Location Provider Dx Diagnosis Office Visit 08/31/2020 1:40p [place] Mykel Rossi MD G43.709 Chronic migraine w/o aura, not intractable, w/o stat migr Assessments Date Code Description Provider 08/31/2020 G43.709 Chronic migraine wit hout aura, not intractable, without status migrainosus Mykel Rossi MD Plan of Treatment 08/31/2020 - Mykel Rossi MD* G43.709 Chronic migraine without aura, not intractable, without status migrainosus* New Orders:* Botox, Ordered: 08/31/20 * Follow up:* with [facility] for botox when approved Functional Status Description No Information Available Mental Status Description No Information Available Referrals Description No Information Available
--- OUTSIDE RECORDS SUMMARY | 2020-11-28 15:25 | CCD ---
Author Author [facility] Organization [facility] Address Unknown Phone Unavailable Care Team Providers Care Freelance Translator Name Role Phone Ac Vicente Unavailable PROBLEMS Type Condition ICD9-CM Code PQN10-PB Code Onset Dates Condition S tatus SNOMED Code Notes Problem Migraine, unspecified, not intractable, without status migrainosus G43.909 Active [id number] Problem Chronic migraine without aur a, not intractable, without status migrainosus G43.709 Active [id number] ALLERGIES Allergen (clinical drug ingredient) Drug/Non Drug Allergy do cumented on EMR Reaction Allergy Type Onset Date Status promethazine Phenergan([facility] Code:[address]-92) Nausea/Vomiting Drug A llergy Active Latex Exam Gloves Hives Drug Allergy Activ e famotidine Pepcid(ND Code:[address]-88) Nausea/Vomiting Drug Allerg y Active hydroxychloroquine Plaquenil(ND Code:[address]-53) Anaphylaxis Drug Allergy Active ENCOUNTERS from 1989 to 2020-09-16 Encounter Location Date Provider Diagnosis [facility] [address] [place] [id number] Sep, Ac Vicente IMMUNIZATIONS No Information SOCIAL HISTORY Tobacco Use: Social History Observation Description Date Details (start date - stop date) Former Smoker Sex Assigned At : Social History Observation Description Sex Assigned At Unknown Education: Question Answer Notes Level of Education: College Language: Question Answer Notes Languages spoken: Danish Buddhist: Question Answer Notes Buddhist No shinto beliefs that would impact health care. Alcohol [...] Information RESULTS No Results REASON FOR VISIT DIAGNOSIS MEDICAL (GENERAL) HISTORY Type Description Date Medical [...] Information ASSESSMENTS No Information PLAN OF TREATMENT No Information Insurance Providers Payer Name Payer Address Payer Phone Insured Name Patient Relati onship to Insured Coverage Start Date Coverage End Date FORMERLY [facility] CORPORATE CLAIMS DEPT [facility] [phone] [phone] WINSOME RODRIGUEZ self
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
--- OUTSIDE RECORDS SUMMARY | 2020-11-28 15:25 | CCD ---
Author Organization Unknown Address [address] [place] [address] Phone [phone] Care Team Providers Care Parking Enforcement Technician Name Role Phone Hugh Valente Unavailable Unavailable [...] TWICE A DAY Active No t available asywwbzhzm-lbjiblmchmxfk-wxtjwzfc 50 mg- 325 mg-40 mg tablet TAKE [...] White Blood Count 14.6 10 4.0-10.0 10 [facility]: [address] [place] [address] Normal Red Blood Count 4.59 10 4.00-5.40 10 [facility]: [address] [place] [address] Low Hemoglobin 11.4 g/dL 12.0-15.5 g/dL [facility]: [address] [place] [address] Normal Hematocrit 37.8 % 36.0-47.0 % [facility]: [address] [place] [address] Normal Mean Corpuscular Volume 82.4 fL 80.0 -96.0 fL [facility]: [address] [place] [address] Low Mean Corpuscular Hemoglobin 24.8 pg 27.0-33.0 pg [facility]: [address] [place] [address] Low Mean Corpuscular HGB Conc 30.2 g/dL 32.0-36.5 g/dL [facility]: [address] [place] [address] Normal Red Cell Distribution Width 14.4 % 1 1.5-14.5 % [facility]: [address] [place] [address] Normal Platelet Count, Automated 368 10 150 -450 10 [facility]: [address] [place] [address] High Neutrophils % 85.4 % 36.0-66.0 % [facility]: [address] [place] [address] Low Lymph % 11.4 % 24.0-44.0 % [facility]: [address] [facility] Normal Lucas % 1.3 % 0.0-5.0 % [facility]: [address] [place] [address] Normal Eos % 0.7 % 0.0-3.0 % [facility]: [address] [place] [address] Normal Baso % 0.4 % 0.0-1.0 % [facility]: [address] [place] [address] Normal Immature Granulocyte % 0.8 % 0-3.0 % [facility]: [address] [place] [address] Normal Nucleated Red Blood Cell % 0.0 % 0- 0 % [facility]: [address] [facility] High Neutrophils # 12.5 10 1.5-8.5 10 [facility]: [address] [facility] Normal Lymph # 1.7 10 1.5-5.0 10 [facility]: [address] [facility] Normal Lucas # 0.2 10 0.0-0.8 10 [facility]: [address] [facility] Normal Eos # 0.1 10 0.0-0.5 10 [facility]: [address] [facility] Normal Baso # 0.1 10 0.0-0.2 10 [facility]: [address] [facility] 09/17/2020 Glucose, Fingerstick, Blood High Bedside Glucose 137 mg/dL 70- 105 mg/dL [facility]: [address] [facility] 09/17/2020 BMP, Serum or Plasma High Glucose, Fastin g 133 mg/dL 70-100 mg/dL [facility]: [address] [facility] Normal Blood Urea Nitrogen 15 mg/dL 7-18 mg /dL [facility]: [address] [facility] Normal Creatinine for GFR 0.73 mg/dL 0.55-1 .30 mg/dL [facility]: [address] [facility] Normal Glomerular Filtration Rate > 60.0 >6 0 [facility]: [address] [facility] Normal Sodium Level 137 mEq/L 136-145 mEq/L [facility]: [address] [facility] Normal Potassium Serum 3.8 mEq/L 3.5-5.1 mE q/L [facility]: [address] [facility] Normal Chloride Level 102 mEq/L 98-107 mEq/ L [facility]: [address] [facility] Normal Carbon Dioxide Level 27 mEq/L 21-32 mEq/L [facility]: [address] [facility] Normal Anion Gap 8 mEq/L 8-16 mEq/L [facility]: [address] [facility] Normal Calcium Level 9.6 mg/dL 8.5-10.1 mg/ dL [facility]: [address] [facility] 09/17/2020 TSH, Serum or Plasma Normal Thyroid Stimulating Hormone 1.520 uIU/mL 0.358-3.740 uIU/mL [facility]: [address] [facility] 09/17/2020 beta-HCG, Qualitative, Serum or Plasma Normal HCG, Serum Qualitative negative negative [facility]: [address] [facility] 09/17/2020 UA W/ Reflex to Culture Normal Appearance, Urine Rfx clear clear [facility]: [address] [facility] Normal Color, Urine Rfx straw yellow [facility]: [address] [facility] Normal pH,urine Rfx 7.0 units 5.0-9.0 units [facility]: [address] [facility] Normal Specific [place] Ur Auto Rfx 1.008 1.002-1.035 [facility]: [address] [facility] Normal Protein, Urine Auto Rfx negative mg/ dL negative mg/dL [facility]: [address] [facility] Normal Glucose, Urine (UA) Auto Rfx n egative mg/dL negative mg/dL [facility]: [address] [facility] Normal Ketone, Urine Auto Rfx negative mg/d L negative mg/dL [facility]: [address] [facility] Normal Urobilinogen, Urine Auto Rfx 0.2 mg/ dL 0.0-2.0 mg/dL [facility]: [address] [facility] Normal Bilirubin, Urine Auto Rfx negative n egative [facility]: [address] [facility] Normal Nitrite, Urine Auto Rfx negative neg ative [facility]: [address] [facility] Normal Leukocyte Esterase Ur Auto Rfx negat socrates negative [facility]: [address] [facility] Normal Blood, Urine Blood Rfx negative nega tive [facility]: [address] [facility] Normal WBC, Urine Auto Rfx 1 /hpf 0-3 /hpf [facility]: [address] [facility] Normal RBC, Urine Auto Rfx 1 /hpf 0-3 /hpf [facility]: [address] [facility] Normal Bacteria, Urine Auto Rfx negative ne gative [facility]: [address] [facility] Normal Squam Epithelial Cell Ur Aurfx 2 /hp f 0-6 /hpf [facility]: [address] [facility] Normal Hyaline Cast, Urine Auto Rfx 0 /lpf 0-1 /lpf [facility]: [address] [facility] 09/17/2020 Levetiracetam, Serum Low Levetiracetam ( Keppra) <1.0 ug/mL 10.0-40.0 ug/mL [facility]: [address] [facility] 09/12/2020 CBC W/ Auto Diff High White Blood Count 12.8 10 4.0-10.0 10 [facility]: [address] [facility] Normal Red Blood Count 4.56 10 4.00-5.40 10 [facility]: [address] [facility] Low Hemoglobin 11.4 g/dL 12.0-15.5 g/dL [facility]: [address] [facility] Normal Hematocrit 37.5 % 36.0-47.0 % [facility]: [address] [facility] Normal Mean Corpuscular Volume 82.2 fL 80.0 -96.0 fL [facility]: [address] [facility] Low Mean Corpuscular Hemoglobin 25.0 pg 27.0-33.0 pg [facility]: [address] [facility] Low Mean Corpuscular HGB Conc 30.4 g/dL 32.0-36.5 g/dL [facility]: [address] [facility] High Red Cell Distribution Width 14.8 % 1 1.5-14.5 % [facility]: [address] [facility] Normal Platelet Count, Automated 329 10 150 -450 10 [facility]: [address] [facility] High Neutrophils % 71.9 % 36.0-66.0 % [facility]: [address] [facility] Low Lymph % 17.9 % 24.0-44.0 % [facility]: [address] [facility] High Lucas % 5.1 % 0.0-5.0 % [facility]: [address] [place] [address] High Eos % 4.2 % 0.0-3.0 % [facility]: 0 [facility] Normal Baso % 0.5 % 0.0-1.0 % [facility]: [address] [place] [address] Normal Immature Granulocyte % 0.4 % 0-3.0 % [facility]: [address] [facility] Normal Nucleated Red Blood Cell % 0.0 % 0- 0 % [facility]: [address] [facility] High Neutrophils # 9.2 10 1.5-8.5 10 [facility]: [address] [facility] Normal Lymph # 2.3 10 1.5-5.0 10 [facility]: [address] [facility] Normal Lucas # 0.7 10 0.0-0.8 10 [facility]: [address] [facility] Normal Eos # 0.5 10 0.0-0.5 10 [facility]: [address] [facility] Normal Baso # 0.1 10 0.0-0.2 10 [facility]: [address] [place] [address] 09/12/2020 ESR (Erythrocyte Sedimentation Rate), Blood Hig h Erythrocyte Sedimentation Rate 60 mm/HR 0-20 mm/HR [facility]: [address] [place] [address] 09/12/2020 CMP, Serum or Plasma Normal Glucose, Fastin g 98 mg/dL 70-100 mg/dL [facility]: [address] [facility] Normal Blood Urea Nitrogen 8 mg/dL 7-18 mg/ dL [facility]: [address] [facility] Normal Creatinine for GFR 0.61 mg/dL 0.55-1 .30 mg/dL [facility]: [address] [facility] Normal Glomerular Filtration Rate > 60.0 >6 0 [facility]: [address] [facility] Normal Sodium Level 141 mEq/L 136-145 mEq/L [facility]: [address] [facility] Normal Potassium Serum 3.9 mEq/L 3.5-5.1 mE q/L [facility]: [address] [facility] High Chloride Level 109 mEq/L 98-107 mEq/ L [facility]: [address] [facility] Normal Carbon Dioxide Level 25 mEq/L 21-32 mEq/L [facility]: [address] [facility] Low Anion Gap 7 mEq/L 8-16 mEq/L [facility]: [address] [facility] Normal Calcium Level 9.3 mg/dL 8.5-10.1 mg/ dL [facility]: [address] [facility] Normal AST/SGOT 14 U/L 7-37 U/L [facility]: [address] [facility] Normal ALT/SGPT 18 U/L 12-78 U/L [facility]: [address] [facility] High Alkaline Phosphatase 120 U/L 45-117 U/L [facility]: [address] [facility] Normal Bilirubin,total 0.4 mg/dL 0.2-1.0 mg /dL [facility]: [address] [facility] Normal Total Protein 7.1 gm/dL 6.4-8.2 gm/d L [facility]: [address] [facility] Normal Albumin 3.6 gm/dL 3.2-5.2 gm/dL [facility]: [address] [facility] Low Albumin/globulin Ratio 1.0 1.2-2. 2 Final [facility]: [address] [facility] 09/12/2020 C Reactive Protein, QN, Serum or Plasma High C Reactive Protein Quantitativ 10.80 mg/dL 0.00-0.30 mg/dL Final [facility]: [address] [facility] Past Encounters 10/19/2020 Essential Hypertension JAVY PeteC: [address] [facility] [address] [address], Ph. 10/05/2020 Essential Hypertension; Pulmonary Hypertension; Deep Venous Thrombosis; Lupus Erythematosus; Contraception Care Management MAZIN Pete: [address] [facility] [address], [place] [address], Ph. 09/13/2020 Lupus Erythematosus; Migraine; Asthma; Essential Hypertension JAVY PeteC: [address] [facility] [address] [address], Ph. Social History Tobacco Smoking Status Never Smoker Vaccine List Vaccine Type Tdap 06/24/20200.5 mL Plan of Care Reminders Provider Appointments None recorded. Lab None recorded. Referral None recorded. Procedures None recorded. Surgeries None recorded. Imaging None recorded. Vitals 10/05/2020 01:50PM HOSPITAL DISCHARGE Height Weight BMI Blood Pressure 64 in 265 lbs 45.5 kg/m2 115/84 mm[Hg] 09/13/2020 02:50PM ESTABLISHED [id number] Height Weight BMI Blood Pressure 64 in (1) 143/99 mm[H g] (2) 146/97 mm[Hg] 06/24/2020 Height Weight Blood Pressure 64 in 271 lbs 126/87 mm[Hg]
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
--- OUTSIDE RECORDS SUMMARY | 2020-11-28 15:26 | CCD | Continuity of Care Document ---
Author Author Ghada FAN MD Organization Unknown Address [address] [place] [address] Phone [phone] Care Team Providers Care Marine Operations Coordinator Name Role Phone Hugh Valente AUTM [phone] Problems Description No Information Available Social History Type Date Description Comments Sex Unknown Tobacco Use Start: Unknown Never Smoked Cigarettes Tobacco Use Start: Unknown Non-smoker, Non-drinker, Non-analisa g User Smoking Status Reviewed: 08/25/20 Non-smoker, Non-drinker, Non- drug User Tobacco Use Start: Unknown Patient has never smoked Exercise Type/Frequency Does not exercise Allergies, Adverse Reactions, Alerts Active Allergies Reaction Severity Comments Date Latex 08/25/2020 Plaquenil 08/25/2020 Medications Active Medications SIG Qnty Indications Ordering Provide r Date Megan-Be 0.35mg Tablets 1 by mouth every day 84tabs Rachel Fan MD 08/25/2020 Ibuprofen 600mg Tablets take one tablet by mouth every 6 hours as needed for pain 60tabs Rachel Fan MD 08/25/2020 Paragard Intrauterine Copper Contracepti ve T380a T380a IUD Inserted 05/31/20 Unknown 00 Keppra 1000mg Tablets Take 1500 MG Twice Daily Unknown Clonazepam 0.5mg Tablets up to Three times a day Unknown Metformin HCL 500mg Tablets 1 Tab Daily Unknown Seroquel 50mg Tablets 1 Ta b Twice A Day Unknown Fluoxetine HCL 40mg Capsules 1 by mouth every day Unknown Albuterol Sulfate (2 .5mg/3ML) 0.083% Nebulizer one unit dose every 2 hours as needed respiratory distress Unknown Heparin Sodium (Porcine) 5000Unit/ML Solution Inject 2 ML. Under Skin Twice Daily as Directed Unknown [facility] Esomeprazole Magnesium 20mg Capsules DR 1 Tab Daily Unknown Docusate Sodium 100mg Capsules Daily Unknown Acetaminophen 325mg Che[place]abs Daily Unknown Naproxen/Esomeprazole Magnesium 500-20mg Tablets DR 1 Tab Twice Daily With Food Unknown Vitamin D3 25mcg (1000 Ut) Capsule s 1 1/2 Tab by mouth every day Unknown 00 Cetirizine HCL 10mg Tablets D aily Unknown Cephalexin 500mg Capsules one by mouth Three Times A Day Unknown Butalbital-Acetaminophen 50-325mg Tablets 1 Daily as Needed Unknown Immunizations Description No Information Available Vital Signs Date Vital Result Comment 08/25/2020 7:25am BP Systolic 146 mmHg BP Diastolic 90 mmHg Height 258 inches 21'6" Weight 65.00 lb BMI (Body Mass Index) 0.7 kg/m2 BSA (Body Surface Area) 3.33 m2 Results Test Acquired Date Facility Test Result H/L Range Note Thinprep W/Reflex HR HPV If Asc-US 08/25/2020 Propa th TP Reflex HPV ASCUS Normal Normal 1 TP Reflex HPV ASCUS SEE IMAGE 1 SPECIME N PART A. Cervical, Endocervical, ThinPrep Pap (Supervisor Backfilling) CYTOLOGY HX-------- Date of Last Menstrual Period: 08/2020 Other Information:Previous Pap: 06/2019 IntraUterine Device FINAL DIAGNOSIS---- INTERPRETATION: Negative for Intraepithelial Lesion or Malignancy. SPECIMEN ADEQUACY:Satisfactory for evaluation. Endocervical/transformation zone component present. 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 Rachel Fan MD Z3 0.8 Encounter for other contraceptive management R10.2 Pelvic and perineal pain L93.0 Discoid lupus erythematosus Z86.73 Prsnl hx of TIA (TIA), and c ereb infrc w/o resid deficits Assessments Date Code Description Provider 08/26/2020 R10.2 Pelvic and perineal pain Rachel Fan MD 08/26/2020 Z30.8 Encounter for other contraceptiv e management Rachel Fan MD 08/25/2020 Z30.8 Encounter for other contraceptiv e management Rachel Fan MD 08/25/2020 R10.2 Pelvic and perineal pain Rachel Fan MD 08/25/2020 L93.0 Discoid lupus erythematosus Rachel Nogueira MD 08/25/2020 Z86.73 Personal history of transient ischemic attack (TIA), and cerebral infarction without residual deficits Rachel Fan MD Plan of Treatment Future Appointment(s):* 09/06/2020 10:30 am - Rachel Fan MD at [facility] [employer]che loader and unloader 08/25/2020 - Rachel Fan MD* Z30.8 Encounter for other contraceptive management * R10.2 Pelvic and perineal pain * L93.0 Discoid lupus erythematosus * Z86.73 Personal history of transient ischemic attack (TIA), and cerebral infarction without residual deficits Functional Status Description No Information Available Mental Status Description No Information Available Referrals Description No Information Available
--- OUTSIDE RECORDS SUMMARY | 2020-11-28 15:26 | CCD | Continuity of Care Document ---
Author Author Ghada FAN MD Organization Unknown Address [address] [place] [address] Phone [phone] Care Team Providers Care Vise Hand Name Role Phone Hugh Valente AUTM [phone] Problems Description No Information Available Social History Type Date Description Comments Sex Unknown Tobacco Use Start: Unknown Never Smoked Cigarettes Tobacco Use Start: Unknown Non-smoker, Non-drinker, Non-analisa g User Smoking Status Reviewed: 09/06/20 Non-smoker, Non-drinker, Non- drug User Tobacco Use Start: Unknown Patient has never smoked Exercise Type/Frequency Does not exercise Allergies, Adverse Reactions, Alerts Active Allergies Reaction Severity Comments Date Latex 08/25/2020 Plaquenil 08/25/2020 Pepcid 09/06/2020 Phenergan 09/06/2020 Medications Active Medications SIG Qnty Indications Ordering Provide r Date Megan-Be 0.35mg Tablets 1 by mouth every day 84tabs Rachel Fan MD 08/25/2020 Ibuprofen 600mg Tablets take one tablet by mouth every 6 hours as needed for pain 60tabs Rachel Fan MD 08/25/2020 Butalbital-Acetaminophen 50-325mg Tablets 1 Daily as Needed Unknown Cetirizine HCL 10mg Tablets D aily Unknown Vitamin D3 25mcg (1000 Ut) Capsule s 1 1/2 Tab by mouth every day Unknown 00 [facility] Esomeprazole Magnesium 20mg Capsules DR 1 Tab Daily Unknown Albuterol Sulfate (2 .5mg/3ML) 0.083% Nebulizer one unit dose every 2 hours as needed respiratory distress Unknown Seroquel 50mg Tablets 1 Ta b Twice A Day Unknown Metformin HCL 500mg Tablets 1 Tab Daily Unknown Clonazepam 0.5mg Tablets up to Three times a day Unknown Keppra 1000mg Tablets Take 1500 MG Twice Daily Unknown Fluoxetine HCL 60mg Tablets Unknown Seroquel 300mg Tablets AT Bed time Unknown Immunizations Description No Information Available Vital Signs Date Vital Result Comment 09/06/2020 10:31am BP Systolic 152 mmHg BP Diastolic 98 mmHg 08/25/2020 7:25am BP Systolic 146 mmHg BP [...] N PART A. Cervical, Endocervical, ThinPrep Pap (Tape Recorder Mechanic) CYTOLOGY HX-------- Date of Last Menstrual Period: 08/2020 Other Information:Previous Pap: 06/2019 IntraUterine Device FINAL DIAGNOSIS---- INTERPRETATION: Negative for Intraepithelial Lesion or Malignancy. SPECIMEN ADEQUACY:Satisfactory for evaluation. Endocervical/transformation zone component present. 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 Rachel Fan MD Z3 0.8 Encounter for other contraceptive management Office Visit 08/25/2020 8:45a [facility] plisse machine operator helper Rachel Fan MD Z3 0.8 Encounter for other contraceptive management R10.2 Pelvic and perineal pain L93.0 Discoid lupus erythematosus Z86.73 Prsnl hx of TIA (TIA), and c ereb infrc w/o resid deficits Assessments Date Code Description Provider 09/06/2020 Z30.8 Encounter for other contraceptiv e management Rachel Fan MD 08/26/2020 R10.2 Pelvic and perineal pain Rachel [...] Fan MD Plan of Treatment Future Appointment(s):* 10/27/2020 2:45 pm - Rachel Fan MD at [facility] plisse machine operator helper * 10/14/2020 10:30 am - Rachel Fan MD at [facility] [place] 09/06/2020 - Rachel Fan MD* Z30.8 Encounter for other contraceptive management Functional Status Description No Information Available Mental Status Description No Information Available Referrals Description No Information Available
--- OUTSIDE RECORDS SUMMARY | 2020-11-28 15:26 | CCD ---
Continuity of Care Document (CCD) Created on: 09/02/2020 Ghada Akers External Reference #: [id number] : [id number] Sex: Female Author Author Ghada FAN MD Organization Unknown Address [address] [place] [address] Phone [phone] Care Team Providers Care Printed Circuit Board Pcb Designer Name Role Phone Hugh Valente AUTM [phone] Problems Description No Information Available Social History [...] N PART A. 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 SPECIMEN ADEQUACY:Satisfactory for evaluation. Endocervical/transformation zone component present. 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
--- OUTSIDE RECORDS SUMMARY | 2020-11-28 15:26 | CCD | Continuity of Care Document ---
Author Author Ghada FAN MD Organization Unknown Address [address] [place] [address] Phone [phone] Care Team Providers Care Financial Services Counselor Name Role Phone Hugh Valente AUTM [phone] Problems Description No Information Available Social History [...] N PART A. Cervical, Endocervical, ThinPrep Pap (Rn Occupational) CYTOLOGY HX-------- Date of Last Menstrual Period: 08/2020 Other Information:Previous Pap: 06/2019 IntraUterine Device FINAL DIAGNOSIS---- INTERPRETATION: Negative for Intraepithelial Lesion or Malignancy. SPECIMEN ADEQUACY:Satisfactory for evaluation. Endocervical/transformation zone component present. 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
--- OUTSIDE RECORDS SUMMARY | 2020-11-28 15:30 | CCD ---
Author Author [facility] Organization [facility] Address Unknown Phone Unavailable Care Team Providers Care Laborer Mine Name Role Phone Ginger, Eleni Angel MD Unavailable Unavailable Abigail-Malak, Eleni Angel MD Unavailable Unavailable Abigail-Malak, Eleni Angel MD Unavailable Unavailable Abigail-Malak, Eleni Angel MD Unavailable Unavailable Abigail-Malak, Eleni Angel MD Unavailable Unavailable Abigail-Malak, Eleni Angel MD Unavailable Unavailable Abigail-Malak, Eleni Angel MD Unavailable Unavailable Abigail-Malak, Eleni Angel MD Unavailable Unavailable Abigail-Malak, Eleni Angel MD Unavailable Unavailable Abigail-Malak, Eleni Angel MD Unavailable Unavailable Abigail-Malak, Eleni Angel MD Unavailable Unavailable Abigail-Malak, Eleni Angel MD Unavailable Unavailable Abigail-Malak, Eleni Angel MD Unavailable Unavailable Abigail-Malak, Eleni Angel MD Unavailable Unavailable Abigail-Maljude, Eleni Angel MD Unavailable Unavailable Abigail-Maljude, Eleni Angel MD Unavailable Unavailable Abigail-Maljude, Eleni Angel MD Unavailable Unavailable Abigail-Maljude, Eleni Angel MD Unavailable Unavailable Abigail-Maljude, A Ismael MD Unavailable Unavailable Abigail-Malak, A Ismael MD Unavailable Unavailable Abigail-Malak, A Ismael MD Unavailable Unavailable Abigail-Malak, A Ismael MD Unavailable Unavailable Abigail-Malak, A Ismael MD Unavailable Unavailable Abigail-Malak, A Ismael MD Unavailable Unavailable Abigail-Malak, A Ismael MD Unavailable Unavailable Abigail-Malak, A Ismael MD Unavailable Unavailable Abigail-Malak, A Ismael MD Unavailable Unavailable Abigail-Malak, A Ismael MD Unavailable Unavailable Abigail-Malak, A Ismael MD Unavailable Unavailable Abigail-Malak, A Ismael MD Unavailable Unavailable Abigail-Malak, A Ismael MD Unavailable Unavailable Abigail-Malak, A Ismael MD Unavailable Unavailable Abigail-Malak, A Ismael MD Unavailable Unavailable Abigail-Malak, A Ismael MD Unavailable Unavailable Abigail-Malak, A Ismael MD Unavailable Unavailable Abigail-Malak, A Ismael MD Unavailable Unavailable Abigail-Malak, A Ismael MD Unavailable Unavailable Abigail-Malak, A Ismael MD Unavailable Unavailable Abigail-Malak, A Ismael MD Unavailable Unavailable Abigail-Malak, A Ismael MD Unavailable Unavailable Abigail-Malak, A Ismael MD Unavailable Unavailable Abigail-Malak, A Ismael MD Unavailable Unavailable Abigail-Malak, A Ismael MD Unavailable Unavailable Abigail-Malak, A Ismael MD Unavailable Unavailable Abigail-Malak, A Ismael MD Unavailable Unavailable Abigail-Malak, A Ismael MD Unavailable Unavailable Abigail-Malak, A Ismael MD Unavailable Unavailable Abigail-Malak, A Ismael MD Unavailable Unavailable Abigail-Malak, A Ismael MD Unavailable Unavailable Abigail-Malak, A Ismael MD Unavailable Unavailable Abigail-Malak, A Ismael MD Unavailable Unavailable Abgiail-Malak, A Ismael MD Unavailable Unavailable Abigail-Malak, A Ismael MD Unavailable Unavailable Abigail-Malak, A Ismael MD Unavailable Unavailable Abigail-Malak, A Ismael MD Unavailable Unavailable Abigail-Malak, A Ismael MD Unavailable Unavailable Abigail-Malak, A Ismael MD Unavailable Unavailable Abigail-Malak, A Ismael MD Unavailable Unavailable Abigail-Malak, A Ismael MD Unavailable Unavailable Abigail-Malak, A Ismael MD Unavailable Unavailable Abigail-Malak, A Ismael MD Unavailable Unavailable Abigail-Santosh, Eleni Angel MD Unavailable Unavailable Abigail-Maljude, Eleni Angel MD Unavailable Unavailable Abigail-Santosh, Eleni Angel MD Unavailable Unavailable Abigail-Santosh, Eleni Angel MD Unavailable Unavailable Ginger, Eleni Angel MD Unavailable Unavailable AMISHA R ARNOLDO Unavailable Unavailable PHYSICIAN, PHYSICIAN ER Unavailable Unavailable MASTRosales LOMAS ELOISA Unavailable Unavailable QUYNH WEBB Unavailable Unavailable Jaylon TARANGO MD Unavailable Unavailable Jaylon TARANGO MD Unavailable Unavailable Jaylon TARANGO MD Unavailable Unavailable SHIJaylon JOHNSON MD Unavailable Unavailable SHI K MONSERRAT PICHARDO Unavailable Unavailable SHI K MONSERRAT PICHARDO Unavailable Unavailable SHI K MONSERRAT PICHARDO Unavailable Unavailable SHI K MONSERRAT PICHARDO Unavailable Unavailable Jaylon TARANGO MD Unavailable Unavailable Jaylon TARANGO MD Unavailable Unavailable Jaylon TARANGO MD Unavailable Unavailable Jaylon TARANGO MD Unavailable Unavailable Jaylon TARANGO MD Unavailable Unavailable Jaylon TARANGO MD Unavailable Unavailable Jaylon TARANGO MD Unavailable Unavailable Jaylon TARANGO MD Unavailable Unavailable Jaylon TARANGO MD Unavailable Unavailable Jaylon TARANGO MD Unavailable Unavailable Jaylon TARANGO MD Unavailable Unavailable Jaylon TARANGO MD Unavailable Unavailable Jaylon TARANGO MD Unavailable Unavailable SHI K MONSERRAT PICHARDO Unavailable Unavailable Jaylon TARANGO MD Unavailable Unavailable Jaylon TARANGO MD Unavailable Unavailable Jaylon TARANGO MD Unavailable Unavailable Jaylon TARANGO MD Unavailable Unavailable Jaylon TARANGO MD Unavailable Unavailable Jaylon TARANGO MD Unavailable Unavailable Jaylon TARANGO MD Unavailable Unavailable Jaylon TARANGO MD Unavailable Unavailable Jaylon TARANGO MD Unavailable Unavailable Jaylon TARANGO MD Unavailable Unavailable Jaylon TARANGO MD Unavailable Unavailable Jaylon TARANGO MD Unavailable Unavailable Jaylon TARANGO MD Unavailable Unavailable Jaylon TARANGO MD Unavailable Unavailable Jaylon TARANGO MD Unavailable Unavailable Jaylon TARANGO MD Unavailable Unavailable Jaylon TARANGO MD Unavailable Unavailable Jyalon TARANGO MD Unavailable Unavailable Jaylon TARANGO MD Unavailable Unavailable Jaylon TARANGO MD Unavailable Unavailable Jaylon TARANGO MD Unavailable Unavailable Jaylon TARANGO MD Unavailable Unavailable Jaylon TARANGO MD Unavailable Unavailable Jaylon TARANGO MD Unavailable Unavailable Jaylon TARANGO MD Unavailable Unavailable Jaylon TARANGO MD Unavailable Unavailable Jaylon TARANGO MD Unavailable Unavailable Jaylon TARANGO MD Unavailable Unavailable Jaylon TARANGO MD Unavailable Unavailable Jaylon TARANGO MD Unavailable Unavailable Jaylon TARANGO MD Unavailable Unavailable Jaylon TARANGO MD Unavailable Unavailable Alexandre Arnett MD Unavailable [phone] Alexandre Arnett MD Unavailable [phone] Alexandre Arnett MD Unavailable [phone] Alexandre Arnett MD Unavailable [phone] Alexandre Arnett MD Unavailable [phone] Alexandre Arnett MD Unavailable [phone] MANJINDER BROWN Unavailable Unavailable Sundeep, [id number] MD Sid MD Unavailable Sundeep, [id number] MD Sid MD Unavailable Sundeep, [id number] MD Sid MD Unavailable Sundeep, [id number] MD Sid MD Unavailable Sundeep, [id number] MD Sid MD Unavailable Sundeep, [id number] MD Sid MD Unavailable Sundeep, [id number] MD Sid MD Unavailable Sundeep, [id number] MD Sid MD Unavailable Sundeep, [id number] MD Sid MD Unavailable Sundeep, [id number] MD Sid MD Unavailable Sundeep, [id number] MD Sid MD Unavailable Sundeep, [id number] MD Sid MD Unavailable Sundeep, [id number] MD Sid MD Unavailable Sundeep, [id number] MD Sid MD Unavailable Sundeep, [id number] MD Sid MD Unavailable Sundeep, [id number] MD Sid MD Unavailable Sundeep, [id number] MD Sid MD Unavailable Sundeep, [id number] MD Sid MD Unavailable Sundeep, [id number] MD Sid MD Unavailable Sundeep, [id number] MD Sid MD Unavailable Sundeep, [id number] MD Sid MD Unavailable Sundeep, [id number] MD Sid MD Unavailable Sundeep, [id number] MD Sid MD Unavailable Sundeep, [id number] MD Sid MD Unavailable Sundeep, [id number] MD Sid MD Unavailable Sundeep, [id number] MD Sid MD Unavailable Sundeep, [id number] MD Sid MD Unavailable Sundeep, [id number] MD Sid MD Unavailable Sundeep, [id number] MD Sid MD Unavailable Sundeep, [id number] Sid MD Unavailable Sundeep, [id number] Sid MD Unavailable Castro CONCEPCION Unavailable Unavailable Castro Kumar MD Unavailable Unavailable Castro Kumar MD Unavailable Unavailable Castro Kumar MD Unavailable Unavailable Castro Kumar MD Unavailable Unavailable Castro Kumar MD Unavailable Unavailable Castro Kumar MD Unavailable Unavailable Castro Kumar MD Unavailable Unavailable Castro Kumar MD Unavailable Unavailable Casrto Kumar MD Unavailable Unavailable Castro Kumar MD Unavailable Unavailable Castro Kumar MD Unavailable Unavailable Castro Kumar MD Unavailable Unavailable Castro Kumar MD Unavailable Unavailable Castro Kumar MD Unavailable Unavailable Castro Kumar MD Unavailable Unavailable StacyCastro murray MD Unavailable Unavailable Castro Kumar MD Unavailable Unavailable StacyCastro murray MD Unavailable Unavailable StacyCastro murray MD Unavailable Unavailable StacyCastro murray MD Unavailable Unavailable StacyCastro murray MD Unavailable Unavailable Castro Kumar MD Unavailable Unavailable Castro Kumar MD Unavailable Unavailable StacyCastro murray MD Unavailable Unavailable StacyCastro murray MD Unavailable Unavailable StacyCastro murray MD Unavailable Unavailable StacyCastro murray MD Unavailable Unavailable StacyCastro murray MD Unavailable Unavailable Castro Kumar MD Unavailable Unavailable Castro Kumar MD Unavailable Unavailable Castro Kumar MD Unavailable Unavailable Castro Kumar MD Unavailable Unavailable Castro Kumar MD Unavailable Unavailable ALIASES , DEFAULT / GENERIC / UNKNOWN PROVIDER * Unavailable Unavailable ALIASES , DEFAULT / GENERIC / UNKNOWN PROVIDER * Unavailable Unavailable ALIASES , DEFAULT / GENERIC / UNKNOWN PROVIDER * Unavailable Unavailable ALIASES , DEFAULT / GENERIC / UNKNOWN PROVIDER * Unavailable Unavailable ALIASES , DEFAULT / GENERIC / UNKNOWN PROVIDER * Unavailable Unavailable ALIASES , DEFAULT / GENERIC / UNKNOWN PROVIDER * Unavailable Unavailable ALIASES , DEFAULT / GENERIC / UNKNOWN PROVIDER * Unavailable Unavailable ALIASES , DEFAULT / GENERIC / UNKNOWN PROVIDER * Unavailable Unavailable ALIASES , DEFAULT / GENERIC / UNKNOWN PROVIDER * Unavailable Unavailable ALIASES , DEFAULT / GENERIC / UNKNOWN PROVIDER * Unavailable Unavailable ALIASES , DEFAULT / GENERIC / UNKNOWN PROVIDER * Unavailable Unavailable ALIASES , DEFAULT / GENERIC / UNKNOWN PROVIDER * Unavailable Unavailable ALIASES , DEFAULT / GENERIC / UNKNOWN PROVIDER * Unavailable Unavailable ALIASES , DEFAULT / GENERIC / UNKNOWN PROVIDER * Unavailable Unavailable ALIASES , DEFAULT / GENERIC / UNKNOWN PROVIDER * Unavailable Unavailable ALIASES , DEFAULT / GENERIC / UNKNOWN PROVIDER * Unavailable Unavailable ALIASES , DEFAULT / GENERIC / UNKNOWN PROVIDER * Unavailable Unavailable ALIASES , DEFAULT / GENERIC / UNKNOWN PROVIDER * Unavailable Unavailable ALIASES , DEFAULT / GENERIC / UNKNOWN PROVIDER * Unavailable Unavailable ALIASES , DEFAULT / GENERIC / UNKNOWN PROVIDER * Unavailable Unavailable ALIASES , DEFAULT / GENERIC / UNKNOWN PROVIDER * Unavailable Unavailable ALIASES , DEFAULT / GENERIC / UNKNOWN PROVIDER * Unavailable Unavailable ALIASES , DEFAULT / GENERIC / UNKNOWN PROVIDER * Unavailable Unavailable ALIASES , DEFAULT / GENERIC / UNKNOWN PROVIDER * Unavailable Unavailable ALIASES , DEFAULT / GENERIC / UNKNOWN PROVIDER * Unavailable Unavailable ALIASES , DEFAULT / GENERIC / UNKNOWN PROVIDER * Unavailable Unavailable ALIASES , DEFAULT / GENERIC / UNKNOWN PROVIDER * Unavailable Unavailable ALIASES , DEFAULT / GENERIC / UNKNOWN PROVIDER * Unavailable Unavailable ALIASES , DEFAULT / GENERIC / UNKNOWN PROVIDER * Unavailable Unavailable Eleni Mares MD Unavailable Unavailable Eleni Mares MD Unavailable Unavailable Eleni Mares MD Unavailable Unavailable DEBBIE, 0000{ Unavailable Unavailable NOSOVITCH JRPanfilo MD Unavailable Unavailable NOSOVITCH JRPanfilo MD Unavailable Unavailable NOSOVITCH JRPanfilo MD Unavailable Unavailable NOSOVITCH JRPanfilo MD Unavailable Unavailable NOSOVITCH JR, Panfilo BREEN MD Unavailable Unavailable NOSOVITCH JR, Panfilo BREEN MD Unavailable Unavailable NOSOVITCH JR, Panfilo BRENE MD Unavailable Unavailable NOSOVITCH JRPanfilo MD Unavailable Unavailable NOSOVITCH JR, Panfilo BREEN MD Unavailable Unavailable NOSOVITCH JRPanfilo MD Unavailable Unavailable NOSOVITCH JR, Panfilo BREEN MD Unavailable Unavailable NOSOVITCH JR, Panfilo BREEN MD Unavailable Unavailable NOSOVITCH JR, T JAMSHID MD Unavailable Unavailable NOSOVITCH JRPanfilo MD Unavailable Unavailable NOSOVITCH JRPanfilo MD Unavailable Unavailable NOSOVITCH JR, Panfilo BREEN MD Unavailable Unavailable NOSOVITCH JR, Panfilo BREEN MD Unavailable Unavailable NOSOVITCH JR, Panfilo BREEN MD Unavailable Unavailable NOSOVITCH JR, Panfilo BREEN MD Unavailable Unavailable NOSOVITCH JR, Panfilo BREEN MD Unavailable Unavailable NOSOVITCH JR, Panfilo BREEN MD Unavailable Unavailable NOSOVITCH JR, Panfilo BREEN MD Unavailable Unavailable NOSOVITCH JR, Panfilo BREEN MD Unavailable Unavailable NOSOVITCH JR, Panfilo BREEN MD Unavailable Unavailable NOSOVITCH JR, Panfilo BREEN MD Unavailable Unavailable NOSOVITCH JR, Panfilo BREEN MD Unavailable Unavailable NOSOVITCH JR, Panfilo BREEN MD Unavailable Unavailable NOSOVITCH JR, Panfilo BREEN MD Unavailable Unavailable ELIE FRANK Unavailable Unavailable MARAVEGIASObdulia MD Unavailable Unavailable MARAVEGIASObdluia MD Unavailable Unavailable MARAVEGIAObdulia Caba MD Unavailable Unavailable MARAVEGIASObdulia MD Unavailable Unavailable MARAVEGIASObdulia MD Unavailable Unavailable MARAVEGIASObdulia MD Unavailable Unavailable MARAVEGIAObdulia Caba MD Unavailable Unavailable MARAVEGIASObdulia MD Unavailable Unavailable MARAVEGIAObdulia Caba MD Unavailable Unavailable MARAVEGIASObdulia MD Unavailable Unavailable MARAVEGIASObdulia MD Unavailable Unavailable MARAVEGIAObdulia Caba MD Unavailable Unavailable MARAVEGIAObdulia Caba MD Unavailable Unavailable MARAVEObdulia SIERRA MD Unavailable Unavailable NOSOVITCH JRPanfilo MD Unavailable Unavailable NOSOVITCH Panfilo MORSE MD Unavailable Unavailable NOSOVITCH JRPanfilo MD Unavailable Unavailable NOSOVITCH Panfilo MORSE MD Unavailable Unavailable NOSOVITCH Panfilo MORSE MD Unavailable Unavailable NOSOVITCH Panfilo MORSE MD Unavailable Unavailable NOSOVITCH JRPanfilo MD Unavailable Unavailable NOSOVITCH JRPanfilo MD Unavailable Unavailable NOSOVITCH JRPanfilo MD Unavailable Unavailable NOSOVITCH JRPanfilo MD Unavailable Unavailable NOSOVITCH JRPanfilo MD Unavailable Unavailable NOSOVITCH JR, Panfilo BREEN MD Unavailable Unavailable NOSOVITCH JR, Panfilo BREEN MD Unavailable Unavailable NOSOVITCH JRPanfilo MD Unavailable Unavailable NOSOVITCH JRPanfilo MD Unavailable Unavailable NOSOVITCH JR, Panfilo BREEN MD Unavailable Unavailable NOSOVITCH JR, Panfilo BREEN MD Unavailable Unavailable NOSOVIPanfilo HOLBROOK JR, MD Unavailable Unavailable NOSOVIPanfilo HOLBROOK JR, MD Unavailable Unavailable NOSOVIPanfilo HOLBROOK JR, MD Unavailable Unavailable NOSOVIPanfilo HOLBROOK JR, MD Unavailable Unavailable NOSOVIPanfilo HOLBROOK JR, MD Unavailable Unavailable NOSOVIPanfilo HOLBROOK JR, MD Unavailable Unavailable NOSOVITCH Panfilo MORSE MD Unavailable Unavailable NOSOVIPanfilo HOLBROOK JR, MD Unavailable Unavailable NOSOVITCH Panfilo MORSE MD Unavailable Unavailable NOSOVITCH Panfilo MORSE MD Unavailable Unavailable NOSOVITCH Panfilo MORSE MD Unavailable Unavailable Leykin, Cesar DO Unavailable Unavailable Mestad, E Annelise Unavailable Unavailable Mestad, E Annelise Unavailable Unavailable Mestad, E Annelise Unavailable Unavailable Mestad, E Annelise Unavailable Unavailable Mestad, E Annelise Unavailable Unavailable Mestad, E Annelise Unavailable Unavailable Mestad, E Annelise Unavailable Unavailable Mestad, E Annelise Unavailable Unavailable Mestad, E Annelise Unavailable Unavailable Mestad, E Annelise Unavailable Unavailable Mestad, E Annelise Unavailable Unavailable Mestad, E Annelise Unavailable Unavailable Mestad, E Annelise Unavailable Unavailable Mestad, E Annelise Unavailable Unavailable Mestad, E Annelise Unavailable Unavailable Mestad, E Annelise Unavailable Unavailable Mestad, E Annelise Unavailable Unavailable Mestad, E Annelise Unavailable Unavailable Mestad, E Annelise Unavailable Unavailable Mestad, E Annelise Unavailable Unavailable Mestad, E Annelise Unavailable Unavailable Mestad, E Annelise Unavailable Unavailable Mestad, E Annelise Unavailable Unavailable Mestad, E Annelise Unavailable Unavailable Mestad, E Annelise Unavailable Unavailable WILKES, SCOT JOSE MARIA RPA-C Unavailable Unavailable WILKES, SCOT JOSE MARIA RPA-C Unavailable Unavailable WILKES, SCOT JOSE MARIA RPA-C Unavailable Unavailable WILKES, SCOT JOSE MARIA RPA-C Unavailable Unavailable WILKES, SCOT JOSE MARIA RPA-C Unavailable Unavailable WILKES, SCOT JOSE MARIA RPA-C Unavailable Unavailable WILKES, SCOT JOSE MARIA RPA-C Unavailable Unavailable WILKES, SCOT JOSE MARIA RPA-C Unavailable Unavailable WILKES, SCOT JOSE MARIA RPA-C Unavailable Unavailable WILKES, SCOT JOSE MARIA RPA-C Unavailable Unavailable WILKES, SCOT JOSE MARIA RPA-C Unavailable Unavailable WILKES, SCOT JOSE MARIA RPA-C Unavailable Unavailable WILKES, SCOT JOSE MARIA RPA-C Unavailable Unavailable WILKES, SCOT JOSE MARIA RPA-C Unavailable Unavailable WILKES, SCOT JOSE MARIA RPA-C Unavailable Unavailable WILKES, SCOT JOSE MARIA RPA-C Unavailable Unavailable WILKES, SCOT JOSE MARIA RPA-C Unavailable Unavailable WILKES, SCOT JOSE MARIA RPA-C Unavailable Unavailable WILKES, SCOT JOSE MARIA RPA-C Unavailable Unavailable WILKES, SCOT JOSE MARIA RPA-C Unavailable Unavailable WILKES, SCOT JOSE MARIA RPA-C Unavailable Unavailable WILKES, SCOT JOSE MARIA RPA-C Unavailable Unavailable WILKES, SCOT JOSE MARIA RPA-C Unavailable Unavailable WILKES, SCOT JOSE MARIA RPA-C Unavailable Unavailable WILKES, SCOT JOSE MARIA RPA-C Unavailable Unavailable WILKES, SCOT JOSE MARIA RPA-C Unavailable Unavailable WILKES, SCOT JOSE MARIA RPA-C Unavailable Unavailable WILKES, SCOT JOSE MARIA RPA-C Unavailable Unavailable WILKES, SCOT JOSE MARIA RPA-C Unavailable Unavailable WILKES, SCOT JOSE MARIA RPA-C Unavailable Unavailable WILKES, SCOT JOSE MARIA RPA-C Unavailable Unavailable WILKES, SCOT JOSE MARIA RPA-C Unavailable Unavailable WILKES, SCOT JOSE MARIA RPA-C Unavailable Unavailable WILKES, SCOT JOSE MARIA RPA-C Unavailable Unavailable WILKES, SCOT JOSE MARIA RPA-C Unavailable Unavailable WILEKS, SCOT JOSE MARIA RPA-C Unavailable Unavailable WILKES, SCOT JOSE MARIA RPA-C Unavailable Unavailable WILKES, SCOT JOSE MARIA RPA-C Unavailable Unavailable WILKES, SCOT JOSE MARIA RPA-C Unavailable Unavailable WILKES, SCOT JOSE MARIA RPA-C Unavailable Unavailable WILKES, SCOT JOSE MARIA RPA-C Unavailable Unavailable WILKES, SCOT JOSE MARIA RPA-C Unavailable Unavailable WILKES, SCOT JOSE MARIA RPA-C Unavailable Unavailable WILKES, SCOT JOSE MARIA RPA-C Unavailable Unavailable WILKES, SCOT JOSE MARIA RPA-C Unavailable Unavailable WILKES, SCOT JOSE MARIA RPA-C Unavailable Unavailable WILEKS, SCOT JOSE MARIA RPA-C Unavailable Unavailable WILKES, SCOT JOSE MARIA RPA-C Unavailable Unavailable WILKES, SCOT JOSE MARIA RPA-C Unavailable Unavailable WILKES, SCOT JOSE MARIA RPA-C Unavailable Unavailable WILKES, SCOT JOSE MARIA RPA-C Unavailable Unavailable WILKES, SCOT JOSE MARIA RPA-C Unavailable Unavailable WILKES, SCOT JOSE MARIA RPA-C Unavailable Unavailable WILKES, SCOT JOSE MARIA RPA-C Unavailable Unavailable WILKSE, SCOT JOSE MARIA RPA-C Unavailable Unavailable WILKES, SCOT JOSE MARIA RPA-C Unavailable Unavailable WILKES, SCOT JOSE MARIA RPA-C Unavailable Unavailable WILKES, SCOT JOSE MARIA RPA-C Unavailable Unavailable WILKES, SCOT JOSE MARIA RPA-C Unavailable Unavailable WILKES, SCOT JOSE MARIA RPA-C Unavailable Unavailable WILKES, SCOT JOSE MARIA RPA-C Unavailable Unavailable WILKES, SCOT JOSE MARIA RPA-C Unavailable Unavailable WILKES, SCOT JOSE MARIA RPA-C Unavailable Unavailable WILKES, SCOT JOSE MARIA RPA-C Unavailable Unavailable WILKES, SCOT JOSE MARIA RPA-C Unavailable Unavailable WILKES, SCOT JOSE MARIA RPA-C Unavailable Unavailable WILKES, SCOT JOSE MARIA RPA-C Unavailable Unavailable WILKES, SCOT JOSE MARIA RPA-C Unavailable Unavailable WILKES, SCOT JOSE MARIA RPA-C Unavailable Unavailable WILKES, SCOT JOSE MARIA RPA-C Unavailable Unavailable WILKES, SCOT JOSE MARIA RPA-C Unavailable Unavailable WILKES, SCOT JOSE MARIA RPA-C Unavailable Unavailable WILKES, SCOT JOSE MARIA RPA-C Unavailable Unavailable WILKES, SCOT JOSE MARIA RPA-C Unavailable Unavailable WILKES, SCOT JOSE MARIA RPA-C Unavailable Unavailable WILKES, SCOT JOSE MARIA RPA-C Unavailable Unavailable WILKES, SCOT JOSE MARIA RPA-C Unavailable Unavailable WILKES, SCOT JOSE MARIA RPA-C Unavailable Unavailable Reyna, L Lorna PA Unavailable Unavailable Reyna, L Lorna PA Unavailable Unavailable Reyna, L Lorna PA Unavailable Unavailable Reyna, L Lorna PA Unavailable Unavailable Reyna, L Lorna PA Unavailable Unavailable Reyna, L Lorna PA Unavailable Unavailable Reyna, L Lorna PA Unavailable Unavailable Reyna, L Lorna PA Unavailable Unavailable Reyna, L Lorna PA Unavailable Unavailable Reyna, L Lorna PA Unavailable Unavailable Reyna, L Lorna PA Unavailable Unavailable Reyna, L Lorna PA Unavailable Unavailable Reyna, L Lorna PA Unavailable Unavailable Reyna, L Lorna PA Unavailable Unavailable Reyna, L Lorna PA Unavailable Unavailable Reyna, L Lorna PA Unavailable Unavailable Reyna, L Lorna PA Unavailable Unavailable Reyna, L Lorna PA Unavailable Unavailable Reyna, L Lorna PA Unavailable Unavailable Reyna, L Lorna PA Unavailable Unavailable Reyna, L Lorna PA Unavailable Unavailable Reyna, L Lorna PA Unavailable Unavailable Reyna, L Lorna PA Unavailable Unavailable Reyna, L Lorna PA Unavailable Unavailable Reyna, L Lorna PA Unavailable Unavailable Reyna, L Lorna PA Unavailable Unavailable Reyna, L Lorna PA Unavailable Unavailable Reyna, L Lorna PA Unavailable Unavailable Reyna, L Lorna PA Unavailable Unavailable Reyna, L Lorna PA Unavailable Unavailable Reyna, L Lorna PA Unavailable Unavailable Reyna, L Lorna PA Unavailable Unavailable Reyna, L Lorna PA Unavailable Unavailable Reyna, L Lorna PA Unavailable Unavailable WILKES, SCOT JOSE MARIA RPA-C Unavailable Unavailable WILKES, SCOT JOSE MARIA RPA-C Unavailable Unavailable WILKES, SCOT JOSE MARIA RPA-C Unavailable Unavailable WILKES, SCOT JOSE MARIA RPA-C Unavailable Unavailable WILKES, SCOT JOSE MARIA RPA-C Unavailable Unavailable WILKES, SCOT JOSE MARIA RPA-C Unavailable Unavailable WILKES, SCOT JOSE MARIA RPA-C Unavailable Unavailable WILKES, SCOT JOSE MARIA RPA-C Unavailable Unavailable WILKES, SCOT JOSE MARIA RPA-C Unavailable Unavailable WILKES, SCOT JOSE MARIA RPA-C Unavailable Unavailable WILKES, SCOT JOSE MARIA RPA-C Unavailable Unavailable WILKES, SCOT JOSE MARIA RPA-C Unavailable Unavailable WILKES, SCOT JOSE MARIA RPA-C Unavailable Unavailable WILKES, SCOT JOSE MARIA RPA-C Unavailable Unavailable WILKES, SCOT JOSE MARIA RPA-C Unavailable Unavailable WILKES, SCOT JOSE MARIA RPA-C Unavailable Unavailable WILKES, SCOT JOSE MARIA RPA-C Unavailable Unavailable WILKES, SCOT JOSE MARIA RPA-C Unavailable Unavailable WILKES, SCOT JOSE MARIA RPA-C Unavailable Unavailable WILKES, SCOT JOSE MARIA RPA-C Unavailable Unavailable WILKES, SCOT JOSE MARIA RPA-C Unavailable Unavailable WILKES, SCOT JOSE MARIA RPA-C Unavailable Unavailable WILKES, SCOT JOSE MARIA RPA-C Unavailable Unavailable WILKES, SCOT JOSE MARIA RPA-C Unavailable Unavailable WILKES, SCOT JOSE MARIA RPA-C Unavailable Unavailable WILKES, SCOT JOSE MARIA RPA-C Unavailable Unavailable WILKES, SCOT JOSE MARIA RPA-C Unavailable Unavailable WILKES, SCOT JOSE MARIA RPA-C Unavailable Unavailable WILKES, SCOT JOSE MARIA RPA-C Unavailable Unavailable WILKES, SCOT JOSE MARIA RPA-C Unavailable Unavailable WILKES, SCOT JOSE MARIA RPA-C Unavailable Unavailable WILKES, SCOT JOSE MARIA RPA-C Unavailable Unavailable WILKES, SCOT JOSE MARIA RPA-C Unavailable Unavailable WILKES, SCOT JOSE MARIA RPA-C Unavailable Unavailable WILKES, SCOT JOSE MARIA RPA-C Unavailable Unavailable WILKES, SCOT JOSE MARIA RPA-C Unavailable Unavailable WILKES, SCOT JOSE MARIA RPA-C Unavailable Unavailable WILKES, SCOT JOSE MARIA RPA-C Unavailable Unavailable WILKES, SCOT JOSE MARIA RPA-C Unavailable Unavailable NOSOVITCH JRPanfilo MD Unavailable Unavailable NOSOVITCH JR, Panfilo BREEN MD Unavailable Unavailable NOSOVITCH JR, Panfilo BREEN MD Unavailable Unavailable NOSOVITCH JR, Panfilo BREEN MD Unavailable Unavailable NOSOVITCH JR, Panfilo BREEN MD Unavailable Unavailable NOSOVITCH JR, Panfilo BREEN MD Unavailable Unavailable NOSOVITCH JR, Panfilo BREEN MD Unavailable Unavailable NOSOVITCH JR, Panfilo BREEN MD Unavailable Unavailable NOSOVITCH JR, Panfilo BREEN MD Unavailable Unavailable NOSOVITCH JR, Panfilo BREEN MD Unavailable Unavailable NOSOVITCH JR, Panfilo BREEN MD Unavailable Unavailable NOSOVITCH JRPanfilo MD Unavailable Unavailable NOSOVITCH JR, Panfilo BREEN MD Unavailable Unavailable NOSOVITCH JR, Panfilo BREEN MD Unavailable Unavailable NOSOVITCH JR, Panfilo BREEN MD Unavailable Unavailable NOSOVITCH JR, Panfilo BREEN MD Unavailable Unavailable NOSOVITCH JR, Panfilo BREEN MD Unavailable Unavailable NOSOVITCH JR, Panfilo BREEN MD Unavailable Unavailable NOSOVITCH JR, Panfilo BREEN MD Unavailable Unavailable NOSOVITCH JR, Panfilo BREEN MD Unavailable Unavailable NOSOVITCH JR, Panfilo BREEN MD Unavailable Unavailable NOSOVITCH JRPanfilo MD Unavailable Unavailable NOSOVITCH JR, Panfilo BREEN MD Unavailable Unavailable NOSOVITCH JRPanfilo MD Unavailable Unavailable NOSOVITCH JRPanfilo MD Unavailable Unavailable NOSOVITCH JRPanfilo MD Unavailable Unavailable NOSOVITCH JRPanfilo MD Unavailable Unavailable NOSOVITCH JR, Panfilo BREEN MD Unavailable Unavailable Maranda Xie Unavailable [phone] Maranda Xie Unavailable [phone] Maranda Xie Unavailable [phone] Maranda Xie Unavailable [phone] Maranda Xie Unavailable [phone] Maranda Xie PA Unavailable [phone] Xie, Maranda Rebolledo PA Unavailable [phone] Rojas, Maranda Rebolledo PA Unavailable [phone] Maranda Xie PA Unavailable [phone] Maranda Xie PA Unavailable [phone] Luiz Leblanc MD Unavailable Unavailable Luiz Leblanc MD Unavailable Unavailable Luiz Leblanc MD Unavailable Unavailable Luiz Leblanc MD Unavailable Unavailable Luiz Leblanc MD Unavailable Unavailable Luiz Leblanc MD Unavailable Unavailable Luiz Leblanc MD Unavailable Unavailable Luiz Leblanc MD Unavailable Unavailable Luiz Leblanc MD Unavailable Unavailable Luiz Leblanc MD Unavailable Unavailable Luiz Leblanc MD Unavailable Unavailable Luiz Leblanc MD Unavailable Unavailable Luiz Leblanc MD Unavailable Unavailable Luiz Leblanc MD Unavailable Unavailable Luiz Leblanc MD Unavailable Unavailable Luiz Leblanc MD Unavailable Unavailable Luiz Leblanc MD Unavailable Unavailable Luiz Leblanc MD Unavailable Unavailable Luiz Leblanc MD Unavailable Unavailable Luiz Leblanc MD Unavailable Unavailable Luiz Leblanc MD Unavailable Unavailable Luiz Leblanc MD Unavailable Unavailable Luiz Leblanc MD Unavailable Unavailable Luiz Leblanc MD Unavailable Unavailable Luiz Leblanc MD Unavailable Unavailable Luiz Leblanc MD Unavailable Unavailable Luiz Leblanc MD Unavailable Unavailable Luiz Leblanc MD Unavailable Unavailable Luiz Leblanc MD Unavailable Unavailable Luiz Leblanc MD Unavailable Unavailable Luiz Leblanc MD Unavailable Unavailable Luiz Lelbanc MD Unavailable Unavailable Luiz Leblanc MD Unavailable Unavailable Luiz Leblanc MD Unavailable Unavailable Luiz Leblanc MD Unavailable Unavailable Luiz Leblanc MD Unavailable Unavailable Luiz Leblanc MD Unavailable Unavailable Luiz Leblanc MD Unavailable Unavailable Luiz Leblanc MD Unavailable Unavailable Luiz Leblanc MD Unavailable Unavailable Luiz Leblanc MD Unavailable Unavailable Luiz Leblanc MD Unavailable Unavailable Luiz Leblanc MD Unavailable Unavailable Luiz Leblanc MD Unavailable Unavailable Mestad, E Annelise Unavailable Unavailable Mestad, E Annelise Unavailable Unavailable Mestad, E Annelise Unavailable Unavailable Mestad, E Annelise Unavailable Unavailable Mestad, E Annelise Unavailable Unavailable Mestad, E Annelise Unavailable Unavailable Mestad, E Annelise Unavailable Unavailable Mestad, E Annelise Unavailable Unavailable Mestad, E Annelise Unavailable Unavailable Mestad, E Annelise Unavailable Unavailable Mestad, E Annelise Unavailable Unavailable Mestad, E Annelise Unavailable Unavailable Mestad, E Annelise Unavailable Unavailable Mestad, E Annelise Unavailable Unavailable Mestad, E Annelise Unavailable Unavailable Mestad, E Annelise Unavailable Unavailable Mestad, E Annelise Unavailable Unavailable Mestad, E Annelise Unavailable Unavailable Mestad, E Annelise Unavailable Unavailable Mestad, E Annelise Unavailable Unavailable Mestad, E Annelise Unavailable Unavailable Mestad, E Annelise Unavailable Unavailable Mestad, E Annelise Unavailable Unavailable Mestad, E Annelise Unavailable Unavailable Mestad, E Annelise Unavailable Unavailable Estrada, Roma Claudette DO Unavailable Unavailable Estrada, Roma Claudette DO Unavailable Unavailable Estrada, Roma Claudette DO Unavailable Unavailable Estrada, Roma Claudette DO Unavailable Unavailable Estrada, Roma Claudette DO Unavailable Unavailable Estrada, Roma Claudette DO Unavailable Unavailable Addis, L Ambreen BOOKING POLICE OFFICER Unavailable Unavailable Addis, L Ambreen BOOKING POLICE OFFICER Unavailable Unavailable Addis, L Ambreen BOOKING POLICE OFFICER Unavailable Unavailable Addis, L Ambreen BOOKING POLICE OFFICER Unavailable Unavailable Addis, L Ambreen BOOKING POLICE OFFICER Unavailable Unavailable Addis, L Ambreen BOOKING POLICE OFFICER Unavailable Unavailable Addis, L Ambreen BOOKING POLICE OFFICER Unavailable Unavailable Addis, L Ambreen BOOKING POLICE OFFICER Unavailable Unavailable Addis, L Ambreen BOOKING POLICE OFFICER Unavailable Unavailable Addis, L Ambreen BOOKING POLICE OFFICER Unavailable Unavailable Addis, L Ambreen BOOKING POLICE OFFICER Unavailable Unavailable Rosales BAILEY MD Unavailable Unavailable Rosales BAILEY MD Unavailable Unavailable Rosales BAILEY MD Unavailable Unavailable Rosales BAILEY MD Unavailable Unavailable Rosales BAILEY MD Unavailable Unavailable Rosales BAILEY MD Unavailable Unavailable Rosales BAILEY MD Unavailable Unavailable Rosales BAILEY MD Unavailable Unavailable Rosales BAILEY MD Unavailable Unavailable GosPerla puentes MD Unavailable Unavailable Perla Vaca MD Unavailable Unavailable GosPerla puentes MD Unavailable Unavailable GosPerla puentes MD Unavailable Unavailable GosPerla puentes MD Unavailable Unavailable GosPerla puentes MD Unavailable Unavailable Gosine, Perla Hinojosa MD Unavailable Unavailable COBIAN, D BENEDICT Unavailable Unavailable COBIAN, D BENEDICT Unavailable Unavailable COBIAN, D BENEDICT Unavailable Unavailable COBIAN, D BENEDICT Unavailable Unavailable COBIAN, D BENEDICT Unavailable Unavailable COBIAN, D BENEDICT Unavailable Unavailable COBIAN, D BENEDICT Unavailable Unavailable COBIAN, D BENEDICT Unavailable Unavailable COBIAN, D BENEDICT Unavailable Unavailable COBIAN, D BENEDICT Unavailable Unavailable COBIAN, D BENEDICT Unavailable Unavailable COBIAN, D BENEDICT Unavailable Unavailable COBIAN, D BENEDICT Unavailable Unavailable COBIAN, D BENEDICT Unavailable Unavailable COBIAN, D BENEDICT Unavailable Unavailable COBIAN, D BENEDICT Unavailable Unavailable COBIAN, D BENEDICT Unavailable Unavailable COBIAN, D BENEDICT Unavailable Unavailable COBIAN, D BENEDICT Unavailable Unavailable COBIAN, D BENEDICT Unavailable Unavailable HIMPLERRosales MD Unavailable Unavailable HIMPLER, Rosales GUTIERREZ MD Unavailable Unavailable HIMPLER, Rosales GUTIERREZ MD Unavailable Unavailable HIMPLER, Rosales GUTIERREZ MD Unavailable Unavailable HIMMANUELITO, Rosales GUTIERREZ MD Unavailable Unavailable HIMPLER, Rosales GUTIERREZ MD Unavailable Unavailable HIMPLER, Rosales GUTIERREZ MD Unavailable Unavailable HIMMANUELITO, Rosales GUTIERREZ MD Unavailable Unavailable HIMPLER, Rosales GUTIERREZ MD Unavailable Unavailable HIMPLER, Rosales GUTIERREZ MD Unavailable Unavailable HIMPLER, Rosales GUTIERREZ MD Unavailable Unavailable HIMPLER, S BRIDGER PICHARDO Unavailable Unavailable HIMPLER, Rosales GUTIERREZ MD Unavailable Unavailable HIMPLER, Rosales GUTIERREZ MD Unavailable Unavailable HIMPLER, Rosales GUTIERREZ MD Unavailable Unavailable HIMPLER, Rosales GUTIERREZ MD Unavailable Unavailable HIMPLER, S BRIDGER PICHARDO Unavailable Unavailable HIMPLER, S BRIDGER PICHARDO Unavailable Unavailable HIMPLER, Rosales GUTIERREZ MD Unavailable Unavailable HIMPLER, Rosales GUTIERREZ MD Unavailable Unavailable HIMPLER, S BRIDGER PICHARDO Unavailable Unavailable HIMPLER, Rosales GUTIERREZ MD Unavailable Unavailable HIMPLER, S BRIDGER PICHARDO Unavailable Unavailable HIMPLER, Rosales GUTIERREZ MD Unavailable Unavailable HIMPLER, Rosales GUTIERREZ MD Unavailable Unavailable HIMPLER, S BRIDGER PICHARDO Unavailable Unavailable HIMPLER, Rosales GUTIERREZ MD Unavailable Unavailable HIMPLER, Rosales GUTIERREZ MD Unavailable Unavailable HIMPLER, S BRIDGER PICHARDO Unavailable Unavailable HIMPLER, S BRIDGER PICHARDO Unavailable Unavailable HIMPLER, S BRIDGER PICHARDO Unavailable Unavailable HIMPLER, S BRIDGER PICHARDO Unavailable Unavailable HIMPLER, S BRIDGER PICHARDO Unavailable Unavailable HIMPLER, S BRIDGER PICHARDO Unavailable Unavailable HIMPLER, S BRIDGER PICHARDO Unavailable Unavailable HIMPLER, S BRIDGER PICHARDO Unavailable Unavailable HIMPLER, S BRIDGER PICHARDO Unavailable Unavailable HIMPLER, S BRIDGER PICHARDO Unavailable Unavailable HIMPLER, S BRIDGER PICHARDO Unavailable Unavailable HIMPLER, S BRIDGER PICHARDO Unavailable Unavailable HIMPLER, S BRIDGER PICHARDO Unavailable Unavailable HIMPLER, S BRIDGER PICHARDO Unavailable Unavailable HIMPLER, S BRIDGER PICHARDO Unavailable Unavailable HIMPLER, S BRIDGER PICHARDO Unavailable Unavailable HIMPLER, S BRIDGER PICHARDO Unavailable Unavailable HIMPLER, S BRIDGER PICHARDO Unavailable Unavailable HIMPLER, S BRIDGER PICHARDO Unavailable Unavailable HIMPLER, S BRIDGER PICHARDO Unavailable Unavailable HIMPLER, S BRIDGER PICHARDO Unavailable Unavailable HIMPLER, S BRIDGER PICHARDO Unavailable Unavailable HIMPLER, S BRIDGER PICHARDO Unavailable Unavailable HIMPLER, S BRIDGER PICHARDO Unavailable Unavailable HIMPLER, S BRIDGER PICHARDO Unavailable Unavailable HIMPLER, S BRIDGER PICHARDO Unavailable Unavailable HIMPLER, S BRIDGER PICHARDO Unavailable Unavailable HIMPLER, S BRIDGER PICHARDO Unavailable Unavailable HIMPLER, S BRIDGER PICHARDO Unavailable Unavailable HIMPLER, S BRIDGER PICHARDO Unavailable Unavailable HIMPLER, S BRIDGER PICHARDO Unavailable Unavailable HIMPLER, S BRIDGER PICHARDO Unavailable Unavailable HIMPLER, S BRIDGER PICHARDO Unavailable Unavailable HIMPLER, S BRIDGER PICHARDO Unavailable Unavailable HIMPLER, S BRIDGER PICHARDO Unavailable Unavailable HIMPLER, S BRIDGER PICHARDO Unavailable Unavailable HIMPLER, S BRIDGER PICHARDO Unavailable Unavailable HIMPLER, S BRIDGER PICHARDO Unavailable Unavailable HIMPLER, S BRIDGER PICHARDO Unavailable Unavailable HIMPLER, S BRIDGER PICHARDO Unavailable Unavailable HIMPLER, S BRIDGER PICHARDO Unavailable Unavailable HIMPLER, S BRIDGER PICHARDO Unavailable Unavailable TYRELL HUDSON MD Unavailable Unavailable TYRELL HUDSON MD Unavailable Unavailable TYRELL HUDSON MD Unavailable Unavailable TYRELL HUDSON MD Unavailable Unavailable TYRELL HUDSON MD Unavailable Unavailable TYRELL HUDSON MD Unavailable Unavailable TYRELL HUDSON MD Unavailable Unavailable TYRELL HUDSON MD Unavailable Unavailable TYRELL HUDSON MD Unavailable Unavailable TYRELL HUDSON MD Unavailable Unavailable TYRELL HUDSON MD Unavailable Unavailable TYRELL HUDSON MD Unavailable Unavailable TYRELL HUDSON MD Unavailable Unavailable TYRELL HUDSON MD Unavailable Unavailable TYRELL HUDSON MD Unavailable Unavailable TYRELL HUDSON MD Unavailable Unavailable TYRELL HUDSON MD Unavailable Unavailable TYRELL HUDSON MD Unavailable Unavailable TYRELL HUDSON MD Unavailable Unavailable TYRELL HUDSON MD Unavailable Unavailable TYRELL HUDSON MD Unavailable Unavailable TYRELL HUDSON MD Unavailable Unavailable TYRELL HUDSON MD Unavailable Unavailable TYRELL HUDSON MD Unavailable Unavailable TYRELL HUDSON MD Unavailable Unavailable TYRELL HUDSON MD Unavailable Unavailable TYRELL HUDSON MD Unavailable Unavailable Panfilo Small MD Unavailable Unavailable Panfilo Small MD Unavailable Unavailable SmallPanfilo MD Unavailable Unavailable SmallPanfilo MD Unavailable Unavailable Do, E Camilla PA PA Unavailable [phone] Do, E Camilla PA PA Unavailable [phone] Do, E Camilla PA PA Unavailable [phone] Do, E Camilla PA PA Unavailable [phone] Milian, R [place] BOOKING POLICE OFFICER Unavailable Unavailable Milian, R [place] BOOKING POLICE OFFICER Unavailable Unavailable Milian, R [place] BOOKING POLICE OFFICER Unavailable Unavailable Milian, R [place] BOOKING POLICE OFFICER Unavailable Unavailable Milian, R [place] BOOKING POLICE OFFICER Unavailable Unavailable Milian, R [place] BOOKING POLICE OFFICER Unavailable Unavailable Milian, R [place] BOOKING POLICE OFFICER Unavailable Unavailable Milian, R [place] BOOKING POLICE OFFICER Unavailable Unavailable Milian, R [place] BOOKING POLICE OFFICER Unavailable Unavailable Milian, R [place] BOOKING POLICE OFFICER Unavailable Unavailable Milian, R [place] BOOKING POLICE OFFICER Unavailable Unavailable Milian, R [place] BOOKING POLICE OFFICER Unavailable Unavailable Milian, R [place] BOOKING POLICE OFFICER Unavailable Unavailable Milian, R [place] BOOKING POLICE OFFICER Unavailable Unavailable Milian, R [place] BOOKING POLICE OFFICER Unavailable Unavailable Milian, R [place] BOOKING POLICE OFFICER Unavailable Unavailable Milian, R [place] BOOKING POLICE OFFICER Unavailable Unavailable Milian, R [place] BOOKING POLICE OFFICER Unavailable Unavailable Milian, R [place] BOOKING POLICE OFFICER Unavailable Unavailable Milian, R [place] BOOKING POLICE OFFICER Unavailable Unavailable Milian, R [place] BOOKING POLICE OFFICER Unavailable Unavailable Milian, R [place] BOOKING POLICE OFFICER Unavailable Unavailable Milian, R [place] BOOKING POLICE OFFICER Unavailable Unavailable Milian, R [place] BOOKING POLICE OFFICER Unavailable Unavailable Milian, R [place] BOOKING POLICE OFFICER Unavailable Unavailable Milian, R [place] BOOKING POLICE OFFICER Unavailable Unavailable Milian, R [place] BOOKING POLICE OFFICER Unavailable Unavailable Milian, R [place] BOOKING POLICE OFFICER Unavailable Unavailable Milian, R [place] BOOKING POLICE OFFICER Unavailable Unavailable Milian, R [place] BOOKING POLICE OFFICER Unavailable Unavailable Milian, R [place] BOOKING POLICE OFFICER Unavailable Unavailable Milian, R [place] BOOKING POLICE OFFICER Unavailable Unavailable Luiz Leblanc MD Unavailable Unavailable Luiz Leblanc MD Unavailable Unavailable Luiz Leblanc MD Unavailable Unavailable Rosendo Leblancra Unavailable Unavailable Rosedno Leblancra Unavailable Unavailable Rosendo Leblancra Unavailable Unavailable Rosendo Leblancra Unavailable Unavailable Rosendo Leblancra Unavailable Unavailable Rosendo Leblancra Unavailable Unavailable BenjiRosendo gutierrezra Unavailable Unavailable BenjiShayy gutierrezndra Unavailable Unavailable Rosendo Leblancra Unavailable Unavailable Rosendo Leblancra Unavailable Unavailable Rosendo Leblancra Unavailable Unavailable Rosendo Leblancra Unavailable Unavailable Shayy Leblancndra Unavailable Unavailable Shayy Leblancndra Unavailable Unavailable Rosendo Leblancra Unavailable Unavailable Rosendo Leblancra Unavailable Unavailable Rosendo Leblancra Unavailable Unavailable Luiz Leblanc MD Unavailable Unavailable Rosendo Leblancra Unavailable Unavailable Rosendo Leblancra Unavailable Unavailable Rosendo Leblancra Unavailable Unavailable Rosendo Leblancra Unavailable Unavailable Rosendo Leblancra Unavailable Unavailable Luiz Leblanc MD Unavailable Unavailable Rosendo Leblancra Unavailable Unavailable Rosendo Lelbancra Unavailable Unavailable Rosendo Leblancra Unavailable Unavailable Luiz Leblanc MD Unavailable Unavailable Luiz Leblanc MD Unavailable Unavailable Luiz Leblanc MD Unavailable Unavailable Rosendo Leblancra Unavailable Unavailable Rosendo Leblancra Unavailable Unavailable Rosendo Leblancra Unavailable Unavailable Luiz Leblanc MD Unavailable Unavailable Rosendo Leblancra Unavailable Unavailable Rosendo Leblancra Unavailable Unavailable Rosendo Leblancra Unavailable Unavailable Shayy Leblancndra Unavailable Unavailable Shayy Leblancndra Unavailable Unavailable Shayy Leblancndra Unavailable Unavailable Luiz Leblanc MD Unavailable Unavailable Barb, R Teddy PT Unavailable Unavailable Barb, R Teddy PT Unavailable Unavailable Barb, R Teddy PT Unavailable Unavailable Barb, R Teddy PT Unavailable Unavailable Barb, R Teddy PT Unavailable Unavailable Barb, R Teddy PT Unavailable Unavailable Barb, R Teddy PT Unavailable Unavailable Barb, R Teddy PT Unavailable Unavailable Abrb, R Teddy PT Unavailable Unavailable Barb, R Teddy PT Unavailable Unavailable Barb, R Teddy PT Unavailable Unavailable Barb, R Teddy PT Unavailable Unavailable Barb, R Teddy PT Unavailable Unavailable Barb, R Teddy PT Unavailable Unavailable Barb, R Teddy PT Unavailable Unavailable Barb, R Teddy PT Unavailable Unavailable Barb, R Teddy PT Unavailable Unavailable Barb, R Teddy PT Unavailable Unavailable Barb, R Teddy PT Unavailable Unavailable Barb, R Teddy PT Unavailable Unavailable Mina, I Ester Unavailable +, I Ester Unavailable + Mina, I Ester Unavailable + Sid Urbano MD Unavailable Unavailable Kopko, Eleni Ramos MD Unavailable Unavailable Kopko, Eleni Ramos MD Unavailable Unavailable Kopko, Eleni Ramos MD Unavailable Unavailable Kopko, Eleni Ramos MD Unavailable Unavailable Kopko, Eleni Ramos MD Unavailable Unavailable Kopko, Eleni Ramos MD Unavailable Unavailable Kopko, Eleni Ramos MD Unavailable Unavailable Kopko, Eleni Ramos MD Unavailable Unavailable Kopko, Eleni Ramos MD Unavailable Unavailable Kopko, Eleni Ramos MD Unavailable Unavailable Kopko, Eleni Ramos MD Unavailable Unavailable Kopko, Eleni Ramos MD Unavailable Unavailable Kopko, Eleni Ramos MD Unavailable Unavailable Kopko, Eleni Ramos MD Unavailable Unavailable Kopko, Eleni Ramos MD Unavailable Unavailable Kopko, Eleni Ramos MD Unavailable Unavailable Kopko, Eleni Ramos MD Unavailable Unavailable Kopko, Eleni Ramos MD Unavailable Unavailable Kopko, Eleni Ramos MD Unavailable Unavailable Kopko, Eleni Ramos MD Unavailable Unavailable Kopko, Eleni Ramos MD Unavailable Unavailable Kopko, Eleni Ramos MD Unavailable Unavailable Kopko, Eleni Ramos MD Unavailable Unavailable Kopko, Eelni Ramos MD Unavailable Unavailable Kopko, Eleni Ramos MD Unavailable Unavailable Kopko, Eleni Ramos MD Unavailable Unavailable Kopko, Eleni Ramos MD Unavailable Unavailable Kopko, Eleni Ramos MD Unavailable Unavailable Kopko, Eleni Ramos MD Unavailable Unavailable Kopko, Eleni Ramos MD Unavailable Unavailable Kopko, Eleni Ramos MD Unavailable Unavailable Kopko, Eleni Ramos MD Unavailable Unavailable Kopko, Eleni Ramos MD Unavailable Unavailable Kopko, Eleni Ramos MD Unavailable Unavailable Kopko, A Richard MD Unavailable Unavailable Kopko, A Richard MD Unavailable Unavailable Kopko, A Richard MD Unavailable Unavailable Kopko, A Richard Unavailable Unavailable Kopko, A Richard Unavailable Unavailable Kopko, A Richard MD Unavailable Unavailable Kopko, A Richard MD Unavailable Unavailable Kopko, A Richard MD Unavailable Unavailable Kopko, A Richard MD Unavailable Unavailable Kopko, A Richard MD Unavailable Unavailable Kopko, A Richard MD Unavailable Unavailable Kopko, A Richard MD Unavailable Unavailable Kopko, A Richard MD Unavailable Unavailable Kopko, A Richard MD Unavailable Unavailable Kopko, A Richard MD Unavailable Unavailable Kopko, A Richard MD Unavailable Unavailable Kopko, A Richard MD Unavailable Unavailable Kopko, A Richard MD Unavailable Unavailable Kopko, A Richard MD Unavailable Unavailable Kopko, A Richard MD Unavailable Unavailable Kopko, A Richard MD Unavailable Unavailable Kopko, A Richard MD Unavailable Unavailable Kopko, A Richard MD Unavailable Unavailable Kopko, A Richard MD Unavailable Unavailable Kopko, A Richard MD Unavailable Unavailable Kopko, A Richard MD Unavailable Unavailable Kopko, A Richard MD Unavailable Unavailable Kopko, A Richard MD Unavailable Unavailable Kopko, A Richard Unavailable Unavailable Kopko, A Richard Unavailable Unavailable Kopko, A Richard MD Unavailable Unavailable Kopko, A Richard MD Unavailable Unavailable Kopko, A Richard MD Unavailable Unavailable Kopko, A Richard MD Unavailable Unavailable Kopko, A Richard Unavailable Unavailable Kopko, A Richard Unavailable Unavailable Kopko, A Richard MD Unavailable Unavailable Kopko, A Richard MD Unavailable Unavailable Kopko, A Richard MD Unavailable Unavailable Rosales PINA MD Unavailable Unavailable Rosales PINA MD Unavailable Unavailable Rosales PINA MD Unavailable Unavailable Rosales PINA MD Unavailable Unavailable Rosales PINA MD Unavailable Unavailable Rosales PINA MD Unavailable Unavailable Rosales PINA MD Unavailable Unavailable Rosales PINA MD Unavailable Unavailable Reyna, L Lorna PA Unavailable Unavailable Reyna, L Lorna PA Unavailable Unavailable Reyna, L Lorna PA Unavailable Unavailable Reyna, L Lorna PA Unavailable Unavailable Reyna, L Lorna PA Unavailable Unavailable Reyna, L Lorna PA Unavailable Unavailable Reyna, L Lorna PA Unavailable Unavailable Reyna, L Lorna PA Unavailable Unavailable Reyna, L Lorna PA Unavailable Unavailable Reyna, L Lorna PA Unavailable Unavailable Reyna, L Lorna PA Unavailable Unavailable Reyna, L Lorna PA Unavailable Unavailable Reyna, L Lorna PA Unavailable Unavailable Reyna, L Lorna PA Unavailable Unavailable Reyna, L Lorna PA Unavailable Unavailable Reyna, L Lorna PA Unavailable Unavailable Reyna, L Lorna PA Unavailable Unavailable Reyna, L Lorna PA Unavailable Unavailable Reyna, L Lorna PA Unavailable Unavailable Reyna, L Lorna PA Unavailable Unavailable Reyna, L Lorna PA Unavailable Unavailable Reyna, L Lorna PA Unavailable Unavailable Reyna, L Lorna PA Unavailable Unavailable Reyna, L Lorna PA Unavailable Unavailable Reyna, L Lorna PA Unavailable Unavailable Reyna, L Lorna PA Unavailable Unavailable Reyna, L Lorna PA Unavailable Unavailable Reyna, L Lorna PA Unavailable Unavailable Reyna, L Lorna PA Unavailable Unavailable Reyna, L Lorna PA Unavailable Unavailable Reyna, L Lorna PA Unavailable Unavailable Reyna, L Lorna PA Unavailable Unavailable Reyna, L Lorna PA Unavailable Unavailable Reyna, L Lorna PA Unavailable Unavailable JACOB, MONSERRAT Unavailable Unavailable Keddy, A Vinod DC Unavailable Unavailable Keddy, A Vinod DC Unavailable Unavailable Keddy, A Vinod DC Unavailable Unavailable Keddy, A Vinod DC Unavailable Unavailable Keddy, A Vinod DC Unavailable Unavailable Keddy, A Vinod DC Unavailable Unavailable Keddy, A Vinod DC Unavailable Unavailable Keddy, A Vinod DC Unavailable Unavailable Keddy, A Vinod DC Unavailable Unavailable Keddy, A Vinod DC Unavailable Unavailable Keddy, A Vinod DC Unavailable Unavailable Keddy, A Vinod DC Unavailable Unavailable Keddy, A Vinod DC Unavailable Unavailable Keddy, A Vinod DC Unavailable Unavailable Keddy, A Vinod DC Unavailable Unavailable Keddy, A Vinod DC Unavailable Unavailable Adryan MORALES PA-C Unavailable Unavailable Adryan MORALES PA-C Unavailable Unavailable Tara-Becht, DIRECTOR AGENCY & STRATEGIC PARTNERSHIPS [employer]rey AIRPORT CLERK Unavailable [phone] Tara-Becht, DIRECTOR AGENCY & STRATEGIC PARTNERSHIPS [employer] AIRPORT CLERK Unavailable [phone] Tara-Becht, DIRECTOR AGENCY & STRATEGIC PARTNERSHIPS [employer] AIRPORT CLERK Unavailable [phone] [place]-Becht, DIRECTOR AGENCY & STRATEGIC PARTNERSHIPS [employer]rey AIRPORT CLERK Unavailable [phone] [place]-Becht, DIRECTOR AGENCY & STRATEGIC PARTNERSHIPS [employer]rey AIRPORT CLERK Unavailable [phone] Tara-Becht, DIRECTOR AGENCY & STRATEGIC PARTNERSHIPS [employer]rey AIRPORT CLERK Unavailable [phone] [place]-Becht, DIRECTOR AGENCY & STRATEGIC PARTNERSHIPS [employer]PORT CLERK Unavailable [phone] Tara-Becht, DIRECTOR AGENCY & STRATEGIC PARTNERSHIPS [employer]PORT CLERK Unavailable +[phone] [place]-Becht, DIRECTOR AGENCY & STRATEGIC PARTNERSHIPS [employer] AIRPORT CLERK Unavailable +[phone] [place], DIRECTOR AGENCY & STRATEGIC PARTNERSHIPS Audrey AIRPORT CLERK Unavailable [phone] [place]-Becht, DIRECTOR AGENCY & STRATEGIC PARTNERSHIPS Audrey AIRPORT CLERK Unavailable [phone] [place], DIRECTOR AGENCY & STRATEGIC PARTNERSHIPS Audrey AIRPORT CLERK Unavailable [phone] [place], DIRECTOR AGENCY & STRATEGIC PARTNERSHIPS Audrey AIRPORT CLERK Unavailable [phone] [place], DIRECTOR AGENCY & STRATEGIC PARTNERSHIPS Audrey AIRPORT CLERK Unavailable [phone] KENDRA GONZALEZ Unavailable Unavailable [place], Audrey AIRPORT CLERK Unavailable Unavaila ble Mely MATOS PA Unavailable Unavailable Mely MATOS PA Unavailable Unavailable Mely MATOS PA Unavailable Unavailable NC, RFROST WILKES BRISA MOISE Unavailable Unavailable Maksim Meléndez Monserrat Unavailable Unavailable Maksim Meléndez Monserrat Unavailable Unavailable Kj DUNN BOOKING POLICE OFFICER Unavailable Unavailable Kj DUNN BOOKING POLICE OFFICER Unavailable Unavailable Kj DUNN BOOKING POLICE OFFICER Unavailable Unavailable Kj DUNN BOOKING POLICE OFFICER Unavailable Unavailable MONA, C KIKA BOOKING POLICE OFFICER Unavailable Unavailable MONA, C KIKA BOOKING POLICE OFFICER Unavailable Unavailable MONA, C KIKA BOOKING POLICE OFFICER Unavailable Unavailable MONA, C KIKA BOOKING POLICE OFFICER Unavailable Unavailable MONA, C KIKA BOOKING POLICE OFFICER Unavailable Unavailable MONA, C KIKA BOOKING POLICE OFFICER Unavailable Unavailable MONA, C KIKA BOOKING POLICE OFFICER Unavailable Unavailable MONA, C KIKA BOOKING POLICE OFFICER Unavailable Unavailable MONA, C KIKA BOOKING POLICE OFFICER Unavailable Unavailable MONA, C KIKA BOOKING POLICE OFFICER Unavailable Unavailable MONA, C KIKA BOOKING POLICE OFFICER Unavailable Unavailable MONA, C KIKA BOOKING POLICE OFFICER Unavailable Unavailable MONA, C KIKA BOOKING POLICE OFFICER Unavailable Unavailable MONA, C KIKA BOOKING POLICE OFFICER Unavailable Unavailable MONA, C KIKA BOOKING POLICE OFFICER Unavailable Unavailable MONA, C KIKA BOOKING POLICE OFFICER Unavailable Unavailable MONA, C KIKA BOOKING POLICE OFFICER Unavailable Unavailable MONA, C KIKA BOOKING POLICE OFFICER Unavailable Unavailable MONA, C KIKA BOOKING POLICE OFFICER Unavailable Unavailable Courtney Bracket, CASAC BOTTLE CAPPING MACHINE OPERATOR Unavailable Unavailable Courtney Bracket, CASAC BOTTLE CAPPING MACHINE OPERATOR Unavailable Unavailable Samways, W Michelle BOTTLE CAPPING MACHINE OPERATOR Unavailable Unavailable [place], W Michelle BOTTLE CAPPING MACHINE OPERATOR Unavailable Unavailable SUNDEEP, SID Unavailable Unavailable Scozzari, K Irma PA Unavailable Unavailable Scozzari, K Irma PA Unavailable Unavailable Scozzari, K Irma PA Unavailable Unavailable Scozzari, K Irma PA Unavailable Unavailable Scozzari, K Irma PA Unavailable Unavailable Scozzari, K Irma PA Unavailable Unavailable Scozzari, K Irma PA Unavailable Unavailable Scozzari, K Irma PA Unavailable Unavailable Scozzari, K Irma PA Unavailable Unavailable Scozzari, K Irma PA Unavailable Unavailable Scozzari, K Irma PA Unavailable Unavailable Scozzari, K Irma PA Unavailable Unavailable Scozzari, K Irma PA Unavailable Unavailable Scozzari, K Irma PA Unavailable Unavailable Scozzari, K Irma PA Unavailable Unavailable Scozzari, K Irma PA Unavailable Unavailable Scozzari, K Irma PA Unavailable Unavailable Scozzari, K Irma PA Unavailable Unavailable Scozzari, K Irma PA Unavailable Unavailable Scozzari, K Irma PA Unavailable Unavailable Scozzari, K Irma PA Unavailable Unavailable Scozzari, K Irma PA Unavailable Unavailable Scozzari, K Irma PA Unavailable Unavailable Scozzari, K Irma PA Unavailable Unavailable Scozzari, K Irma PA Unavailable Unavailable Scozzari, K Irma PA Unavailable Unavailable Scozzari, K Irma PA Unavailable Unavailable Scozzari, K Irma PA Unavailable Unavailable Scozzari, K Irma PA Unavailable Unavailable Scozzari, K Irma PA Unavailable Unavailable Scozzari, K Irma PA Unavailable Unavailable Scozzari, K Irma PA Unavailable Unavailable Scozzari, K Irma PA Unavailable Unavailable Scozzari, K Irma PA Unavailable Unavailable Scozzari, K Irma PA Unavailable Unavailable Scozzari, K Irma PA Unavailable Unavailable Scozzari, K Irma PA Unavailable Unavailable Scozzari, K Irma PA Unavailable Unavailable Scozzari, K Irma PA Unavailable Unavailable Scozzari, K Irma PA Unavailable Unavailable Scozzari, K Irma PA Unavailable Unavailable Scozzari, K Irma PA Unavailable Unavailable Scozzari, K Irma PA Unavailable Unavailable Scozzari, K Irma PA Unavailable Unavailable Scozzari, K Irma PA Unavailable Unavailable Scozzari, K Irma PA Unavailable Unavailable ZEGIL D BENEDICT DIRECTOR AGENCY & STRATEGIC PARTNERSHIPS Unavailable Unavailable ZEGIL D BENEDICT DIRECTOR AGENCY & STRATEGIC PARTNERSHIPS Unavailable Unavailable ZEGIL D BENEDICT DIRECTOR AGENCY & STRATEGIC PARTNERSHIPS Unavailable Unavailable Jaylon TARANGO MD Unavailable Unavailable Jaylon TARANGO MD Unavailable Unavailable Jaylon TARANGO MD Unavailable Unavailable Jaylon TARANGO MD Unavailable Unavailable Jaylon TARANGO MD Unavailable Unavailable Jaylon TARANGO MD Unavailable Unavailable Jaylon TARANGO MD Unavailable Unavailable Jaylon TARANGO MD Unavailable Unavailable Jaylon TARANGO MD Unavailable Unavailable Jaylon TARANGO MD Unavailable Unavailable Jaylon TARANGO MD Unavailable Unavailable Jaylon TARANGO MD Unavailable Unavailable Jaylon TARANGO MD Unavailable Unavailable Jaylon TARANGO MD Unavailable Unavailable SHI K MONSERRAT PICHARDO Unavailable Unavailable Jaylon TARANGO MD Unavailable Unavailable Jaylon TARANGO MD Unavailable Unavailable Jaylon TARANGO MD Unavailable Unavailable Jaylon TARANGO MD Unavailable Unavailable Jaylon TARANGO MD Unavailable Unavailable Jaylon TARANGO MD Unavailable Unavailable Jaylon TARANGO MD Unavailable Unavailable SHI K MONSERRAT PICHARDO Unavailable Unavailable Jaylon TARANGO MD Unavailable Unavailable Jaylon TARANGO MD Unavailable Unavailable Jaylon TARANGO MD Unavailable Unavailable Jaylon TARANGO MD Unavailable Unavailable Jaylon TARANGO MD Unavailable Unavailable Jaylon TARANGO MD Unavailable Unavailable Jaylon TARANGO MD Unavailable Unavailable SHI K MONSERRAT PICHARDO Unavailable Unavailable SHI K MONSERRAT PICHARDO Unavailable Unavailable Jaylon TARANGO MD Unavailable Unavailable Jaylon TARANGO MD Unavailable Unavailable SHIJaylon JOHNSON MD Unavailable Unavailable Jaylon TARANGO MD Unavailable Unavailable Jaylon TARANGO MD Unavailable Unavailable Jaylon TARANGO MD Unavailable Unavailable Jaylon TARANGO MD Unavailable Unavailable SHI, Jaylon GERMAN MD Unavailable Unavailable Jaylon TARANGO MD Unavailable Unavailable SHI, Jaylon GERMAN MD Unavailable Unavailable SHI, Jaylon GERMAN MD Unavailable Unavailable SHIJaylon JOHNSON MD Unavailable Unavailable SHI, Jaylon GERMAN MD Unavailable Unavailable SHIJaylon JOHNSON MD Unavailable Unavailable Jaylon TARANGO MD Unavailable Unavailable Jaylon TARANGO MD Unavailable Unavailable Jaylon TARANGO MD Unavailable Unavailable Jaylon TARANGO MD Unavailable Unavailable SHIJaylon JOHNSON MD Unavailable Unavailable Jaylon TARANGO MD Unavailable Unavailable Jaylon TARANGO MD Unavailable Unavailable Jaylon TARANGO MD Unavailable Unavailable CARISSIMI, A MADELEINE CNM Unavailable Unavailable CARISSIMI, A MADELEINE CNM Unavailable Unavailable CARISSIMI, A MADELEINE CNM Unavailable Unavailable CARISSIMI, A MADELEINE CNM Unavailable Unavailable CARISSIMI, A MADELEINE CNM Unavailable Unavailable CARISSIMI, A MADELEINE CNM Unavailable Unavailable CARISSIMI, A MADELEINE CNM Unavailable Unavailable CARISSIMI, A MADELEINE CNM Unavailable Unavailable CARISSIMI, A MADELEINE CNM Unavailable Unavailable CARISSIMI, A MADELEINE CNM Unavailable Unavailable CARISSIMI, A MADELEINE CNM Unavailable Unavailable CARISSIMI, A MADELEINE CNM Unavailable Unavailable CARISSIMI, A MADELEINE CNM Unavailable Unavailable CARISSIMI, A MADELEINE CNM Unavailable Unavailable CARISSIMI, A AMDELEINE CNM Unavailable Unavailable CARISSIMI, A MADELEINE CNM Unavailable Unavailable CARISSIMI, A MADELEINE CNM Unavailable Unavailable CARISSIMI, A MADELEINE CNM Unavailable Unavailable CARISSIMI, A MADELEINE CNM Unavailable Unavailable CARISSIMI, A MADELEINE CNM Unavailable Unavailable RODRIGO, B JESSICA Unavailable Unavailable Ritchie, Izabela Unavailable Unavailable Ritchie, Izabela Unavailable Unavailable Ritchie, Izabela Unavailable Unavailable Ritchie, Izabela Unavailable Unavailable Adryan RUSHING BOOKING POLICE OFFICER Unavailable Adryan RUSHING BOOKING POLICE OFFICER Unavailable Adryan RUSHING BOOKING POLICE OFFICER Unavailable Adryan RUSHING BOOKING POLICE OFFICER Unavailable KRISTAN, L MAU BOOKING POLICE OFFICER Unavailable Adryan RUSHING MAU BOOKING POLICE OFFICER Unavailable KRISTAN, L MAU BOOKING POLICE OFFICER Unavailable KRISTAN L MAU BOOKING POLICE OFFICER Unavailable KRISTAN L MAU BOOKING POLICE OFFICER Unavailable Adryan RUSHING MAU BOOKING POLICE OFFICER Unavailable Adryan RUSHING MAU BOOKING POLICE OFFICER Unavailable Adryan RUSHING MAU BOOKING POLICE OFFICER Unavailable Adryan RUSHING MAU BOOKING POLICE OFFICER Unavailable FAN, L DB PICHARDO Unavailable Unavailable FAN, L DB PICHARDO Unavailable Unavailable FAN, L DB PICHARDO Unavailable Unavailable FAN, L DB PICHARDO Unavailable Unavailable FAN, L DB PICHARDO Unavailable Unavailable FAN, L DB PICHARDO Unavailable Unavailable FAN, L DB PICHARDO Unavailable Unavailable FAN, L DB PICHARDO Unavailable Unavailable FAN, L DB PICHARDO Unavailable Unavailable FAN, L DB PICHARDO Unavailable Unavailable FAN, L DB PICHARDO Unavailable Unavailable FAN, L DB PICHARDO Unavailable Unavailable FAN, L DB PICHARDO Unavailable Unavailable FAN, L DB PICHARDO Unavailable Unavailable FAN, L DB PICHARDO Unavailable Unavailable FAN, L DB PICHARDO Unavailable Unavailable FAN, L DB PICHARDO Unavailable Unavailable FAN, L DB PICHARDO Unavailable Unavailable FAN, L DB PICHARDO Unavailable Unavailable FAN, L DB PICHARDO Unavailable Unavailable FAN, L DB PICHARDO Unavailable Unavailable FAN, L DB PICHARDO Unavailable Unavailable FAN, L DB PICHARDO Unavailable Unavailable FAN, L DB PICHARDO Unavailable Unavailable FAN, L DB PICHARDO Unavailable Unavailable FAN, L DB PICHARDO Unavailable Unavailable FAN, L DB PICHARDO Unavailable Unavailable FAN, L DB PICHARDO Unavailable Unavailable FAN, L DB PICAHRDO Unavailable Unavailable FAN, L DB PICHARDO Unavailable Unavailable FAN, L DB PICHARDO Unavailable Unavailable FAN, L DB PICHARDO Unavailable Unavailable FAN, L DB PICHARDO Unavailable Unavailable FAN, L DB PICHARDO Unavailable Unavailable FAN, L DB PICHARDO Unavailable Unavailable FAN, L DB PICHARDO Unavailable Unavailable FAN, L DB PICHARDO Unavailable Unavailable FAN, L DB PICHARDO Unavailable Unavailable FAN, L DB PICHARDO Unavailable Unavailable FAN, L DB PICHARDO Unavailable Unavailable FAN, L DB PICHARDO Unavailable Unavailable Adryan FAN MD Unavailable Unavailable Elizabeth, Rosy BOOKING POLICE OFFICER Unavailable Unavailable Elizabeth, Rosy BOOKING POLICE OFFICER Unavailable Unavailable Elizabeth, Rosy BOOKING POLICE OFFICER Unavailable Unavailable Elizabeth, Rosy BOOKING POLICE OFFICER Unavailable Unavailable Elizabeth, Rosy BOOKING POLICE OFFICER Unavailable Unavailable Elizabeth, Rosy BOOKING POLICE OFFICER Unavailable Unavailable Elizabeth, Rosy BOOKING POLICE OFFICER Unavailable Unavailable Elizabeth, Rosy BOOKING POLICE OFFICER Unavailable Unavailable Elizabeth, Rosy BOOKING POLICE OFFICER Unavailable Unavailable PHYSICIAN, ER Unavailable Unavailable JACOB PICHARDO, MONSERRAT Unavailable Unavailable Malek, Panfilo Lam MD Unavailable [phone] Malek, Panfilo Lam MD Unavailable [phone] Malek, T Carole PICHARDO Unavailable [phone] Malek, T Hamza MD Unavailable [phone] Malek, T Hamza MD Unavailable [phone] Malek, T Hamza MD Unavailable [phone] Malek, T Hamza MD Unavailable [phone] Malek, T Hamza MD Unavailable [phone] Malek, T Hamza MD Unavailable [phone] Malek, T Hamza MD Unavailable [phone] Malek, T Hamza MD Unavailable [phone] Malek, T Hamza MD Unavailable [phone] Malek, T Hamza MD Unavailable [phone] Espinosa, Yingzi BOOKING POLICE OFFICER Unavailable Unavailable Espinosa, Yingzi BOOKING POLICE OFFICER Unavailable Unavailable Espinosa, Yingzi BOOKING POLICE OFFICER Unavailable Unavailable Espinosa, Yingzi BOOKING POLICE OFFICER Unavailable Unavailable Espinosa, Yingzi BOOKING POLICE OFFICER Unavailable Unavailable Espinosa, Yingzi BOOKING POLICE OFFICER Unavailable Unavailable Espinosa, Yingzi BOOKING POLICE OFFICER Unavailable Unavailable Espinosa, Yingzi BOOKING POLICE OFFICER Unavailable Unavailable Espinosa, Yingzi BOOKING POLICE OFFICER Unavailable Unavailable Espinosa, Yingzi BOOKING POLICE OFFICER Unavailable Unavailable Espinosa, Yingzi BOOKING POLICE OFFICER Unavailable Unavailable Espinosa, Yingzi BOOKING POLICE OFFICER Unavailable Unavailable Espinosa, Yingzi BOOKING POLICE OFFICER Unavailable Unavailable Espinosa, Yingzi BOOKING POLICE OFFICER Unavailable Unavailable Espinosa, Yingzi BOOKING POLICE OFFICER Unavailable Unavailable Espinosa, Yingzi BOOKING POLICE OFFICER Unavailable Unavailable Espinosa, Yingzi BOOKING POLICE OFFICER Unavailable Unavailable Espinosa, Yingzi BOOKING POLICE OFFICER Unavailable Unavailable Espinosa, Yingzi BOOKING POLICE OFFICER Unavailable Unavailable Espinosa, Yingzi BOOKING POLICE OFFICER Unavailable Unavailable Espinosa, Yingzi BOOKING POLICE OFFICER Unavailable Unavailable Espinosa, Yingzi BOOKING POLICE OFFICER Unavailable Unavailable Espinosa, Yingzi BOOKING POLICE OFFICER Unavailable Unavailable Espinosa, Yingzi BOOKING POLICE OFFICER Unavailable Unavailable Espinosa, Yingzi BOOKING POLICE OFFICER Unavailable Unavailable Espinosa, Yingzi BOOKING POLICE OFFICER Unavailable Unavailable Espinosa, Yingzi BOOKING POLICE OFFICER Unavailable Unavailable Espinosa, Yingzi BOOKING POLICE OFFICER Unavailable Unavailable Espinosa, Yingzi BOOKING POLICE OFFICER Unavailable Unavailable Espinosa, Yingzi BOOKING POLICE OFFICER Unavailable Unavailable Espinosa, Yingzi BOOKING POLICE OFFICER Unavailable Unavailable Espinosa, Yingzi BOOKING POLICE OFFICER Unavailable Unavailable Espinosa, Yingzi BOOKING POLICE OFFICER Unavailable Unavailable Espinosa, Yingzi BOOKING POLICE OFFICER Unavailable Unavailable Espinosa, Yingzi BOOKING POLICE OFFICER Unavailable Unavailable Espinosa, Yingzi BOOKING POLICE OFFICER Unavailable Unavailable Espinosa, Yingzi BOOKING POLICE OFFICER Unavailable Unavailable EBER, A HANNAH PA Unavailable Unavailable EBER, A HANNAH PA Unavailable Unavailable EBER, A HANNAH PA Unavailable Unavailable EBER, A HANNAH PA Unavailable Unavailable EBER, A HANNAH PA Unavailable Unavailable EBER, A HANNAH PA Unavailable Unavailable EBRE, A HANNAH PA Unavailable Unavailable EBER, A HANNAH PA Unavailable Unavailable EBER, A HANNAH PA Unavailable Unavailable EBER, A HANNAH PA Unavailable Unavailable EBER, A HANNAH PA Unavailable Unavailable EBER, A HANNAH PA Unavailable Unavailable EBER, A HANNAH PA Unavailable Unavailable Vargas, Mykel Unavailable Unavailable Vargas, Mykel Unavailable Unavailable Vargas, Mykel Unavailable Unavailable Vargas, Mykel Unavailable Unavailable Vargas, Mykel Unavailable Unavailable Vargas, Mykel Unavailable Unavailable Vargas, Mykel Unavailable Unavailable Vargas, Mykel Unavailable Unavailable Vargas, Mykel Unavailable Unavailable Vargas, Mykel Unavailable Unavailable Vargas, Mykel Unavailable Unavailable Vargas, Mykel Unavailable Unavailable Vargas, Mykel Unavailable Unavailable Vargas, Mykel Unavailable Unavailable Vargas, Mykel Unavailable Unavailable Vargas, Mykel Unavailable Unavailable Vargas, Mykel Unavailable Unavailable Vargas, Mykel Unavailable Unavailable Vargas, Mykel Unavailable Unavailable Vargas, Mykel Unavailable Unavailable Vargas, Mykel Unavailable Unavailable Vargas, Mykel Unavailable Unavailable Vargas, Mykel Unavailable Unavailable Vargas, Mykel Unavailable Unavailable Vargas, Mykel Unavailable Unavailable Vargas, Mykel Unavailable Unavailable Vargas, Mykel Unavailable Unavailable Vargas, Mykel Unavailable Unavailable Vargas, Mykel Unavailable Unavailable Vargas, Mykel Unavailable Unavailable Vargas, Mykel Unavailable Unavailable Vargas, Mykel Unavailable Unavailable Vargas, Mykel Unavailable Unavailable Vargas, Mykel Unavailable Unavailable Vargas, Mykel Unavailable Unavailable Vargas, Mykel Unavailable Unavailable Vargas, Mykel Unavailable Unavailable Vargas, Mykel Unavailable Unavailable Vargas, Mykel Unavailable Unavailable Vargas, Mykel Unavailable Unavailable Vargas, Ymkel Unavailable Unavailable Vargas, Mykel Unavailable Unavailable Vargas, Mykel Unavailable Unavailable Vargas, Mykel Unavailable Unavailable Re-disclosure Warning The records that you are about to access may contain information from federally-assisted alcohol or drug abuse programs. If such information is present, then the following federally mandated warning applies: This information has been disclosed to you from records protected by federal confidentiality rules (42 CFR part 2). The federal rules prohibit you from making any further disclosure of this information unless further disclosure is expressly permitted by the written consent of the person to whom it pertains or as otherwise permitted by 42 CFR part 2. A general authorization for the release of medical or other information is NOT sufficient for this purpose. The Federal rules restrict any use of the information to criminally investigate or prosecute any alcohol or drug abuse patient.The records that you are about to access may contain highly sensitive health information, the redisclosure of which is protected by Article 27-F of the [facility] Public Health law. If you continue you may have access to information: Regarding HIV / AIDS; Provided by facilities licensed or operated by the [facility] Office of Mental Health; or Provided by the [facility] Office for People With Developmental Disabilities. If such information is present, then the following [facility] mandated warning applies: This information has been disclosed to you from confidential records which are protected by state law. State law prohibits you from making any further disclosure of this information without the specific written consent of the person to whom it pertains, or as otherwise permitted by law. Any unauthorized further disclosure in violation of state law may result in a fine or custodial sentence or both. A general authorization for the release of medical or other information is NOT sufficient authorization for further disc losure. Allergies and Adverse Reactions Type Description Substance Reaction Status Data Source(s ) Drug allergy Drug allergy hydroxychloroquine Unknown Reaction [facility] Drug allergy Drug allergy enoxaparin Unknown Reaction [facility] Drug allergy Drug allergy Latex, Natural Rubber Unknown Reaction [facility] Allergy to substance Allergy to substance Plaquenil JOHN ([facility]) Allergy to substance Allergy to substance Plaquenil JOHN ([facility]) Allergy to substance Allergy to substance Plaquenil JOHN ([facility]) Allergy to substance Allergy to substance Plaquenil JOHN ([facility]) Drug allergy TRUE LATEX TRUE LATEX anaphlaxis [facility] Drug allergy FINERGAN FINERGAN vomiting U [facility] Drug allergy LOVANOX LOVANOX seizure threshold U No rth [facility] Drug allergy PLAQUENIL PLAQUENIL anaphlaxis U [facility] DRUG INGREDI BANANA BANANA Anaphylaxis High [facility] Drug allergy Drug allergy latex [facility] Drug allergy Drug allergy hydroxychloroquine (From Plaquenil) [facility] Drug allergy Drug allergy ketorolac (From Toradol) [facility] Drug allergy Drug allergy promethazine (From Phenergan) [facility] Drug allergy Drug allergy enoxaparin (From Lovenox) [facility] Drug allergy Drug allergy famotidine (From Pepcid) [facility] Drug allergy Drug allergy morphine [facility] Drug allergy Drug allergy Pork/Porcine Containing Products [facility] Encounters Encounter Providers Location Date Indications Data Source(s ) Unknown [address] [facility] [address] 11/22/2020 12:00:00 AM EST eCW1 ([facility]) (PN Proc 60) Pain Procedure 60 [address] [place] [address] 11/22/2020 12:00:00 AM EST eCW1 ([facility]) Unknown [address] [facility] [address] 11/22/2020 12:00:00 AM EST eCW1 ([facility]) Outpatient Attender: Rosy Johnson NP [facility] 06/2021 02:11:00 PM EST - 11/19/2020 02:12:00 PM EST [facility] Patient discharged. Unknown [address] [facility] [address] 11/19/2020 12:00:00 AM EST eCW1 ([facility]) Unknown [address] [facility] [place] [address] 11/17/2020 12:00:00 AM EST eCW1 ([facility]) JAVY PeteC: [address] [facility], [place] [address], Ph. Attender: JOSE MARIA PALAFOXC [facility] Medical 11/08/2020 12:00:00 AM EST JOHN ([facility]) Outpatient Attender: Chad Espinosa NP 10/25/2020 12:00:00 AM [facility] Outpatient Attender: Rosy Johnson NP [facility]PS[facility] 07/2020 03:02:00 PM EST - 10/20/2020 03:03:00 PM EST [facility] Patient discharged. Outpatient Attender: Turner Kumar MD [facility] 10/19 09:15:00 AM [facility] Outpatient Attender: [id number] Sid [facility]rbano [facility] 10/19/2020 07:39:00 AM EST - 10/19/2020 07:40:00 AM [facility] Patient discharged. Jose Maria Wilkes RPA-C: [address] [address], Ph. Attender: JOSE MARIA RETANA [facility] Medical 10/19/2020 12:00:00 AM EST JOHN ([facility]) Unknown [address] [facility] [address] 10/19/2020 12:00:00 AM EST eCW1 ([facility]) JAVY PeteC: [address], [place] [address], Ph. Attender: JOSE MARIA RETANA [facility] Medical 10/19/2020 12:00:00 AM EST JOHN ([facility]) Jose Maria Wilkes RPA-C: [address], [place] [address], Ph. Attender: JOSE MARIA RETANA [facility] Medical 10/19/2020 12:00:00 AM EST JOHN ([facility]) Unknown [address] [facility] [address] 10/12/2020 12:00:00 AM EST eCW1 ([facility]) JAVY PeteC: [address], [place] [address], Ph. Attender: JOSE MARIA RETANA [facility] Medical 10/05/2020 12:00:00 AM EST JOHN ([facility]) JAVY PeteC: [address], [place] [address], Ph. Attender: JOSE MARIA RETANA [facility] Medical 10/05/2020 12:00:00 AM EST JOHN ([facility]) MAZIN Pete: [address], [place] [address], Ph. Attender: JOSE MARIA RETANA [facility] Medical 10/05/2020 12:00:00 AM EST JOHN ([facility]) Outpatient Attender: Chad Espinosa NP [id number] 12:00:00 AM EST - 10/04/2020 11:49:18 AM [facility] Outpatient Referrer: BENEDICT COBIAN 09/23/2020 05:3 9:00 AM EST Lupus, r/o myopericarditis [facility] Lupus, r/o myopericarditis Unknown [address] [facility] [address] 09/16/2020 12:00:00 AM EST eCW1 ([facility]) Outpatient Attender: Irma Rogeler: JOSE MARIA RETANA 09/15/2020 07:59:42 AM EST [facility] [facility] [address] [facility] [address] 09/15/2020 12:00:00 AM EST [email or web address] ([facility]) Recurring Patient Attender: Richard Guerrero MDReferrer: Richard Guerrero MD 09/13/2020 08:46:45 AM EST [facility] Out[facility] Attender: Chad Espinosa BOOKING POLICE OFFICER [id number] 020 12:00:00 AM EST - 09/13/2020 11:22:47 AM EST [facility] Jose Maria Wilkes RPA-C: [address], [place] [address], Ph. Attender: JOSE MARIA RETANA [facility] Medical 09/13/2020 12:00:00 AM EST JOHN ([facility]) Jose Maria Wilkes RPA-C: [address], [place] [address], Ph. Attender: JOSE MARIA WILKES RPA-C [facility] Medical 09/13/2020 12:00:00 AM EST JOHN ([facility]) Jose Maria Wilkes RPA-C: [address], [place] [address], Ph. Attender: JOSE MARIA PALAFOXC [facility] Medical 09/13/2020 12:00:00 AM EST JOHN ([facility]) Jose Maria Wileks RPA-C: [address], [place] [address], Ph. Attender: JOS EMARIA PALAFOXC [facility] Medical 09/13/2020 12:00:00 AM EST JOHN ([facility]) Outpatient Attender: JOSE MARIA RETANA [facility] 09/10/2020 04:26:01 PM EDT [facility] Outpatient Attender: ADE ENRIQUEZ [facility] 08/14 04:25:02 PM EDT [facility] Outpatient Attender: Chad Espinosa NP [id number] 12:00:00 AM EDT - 09/07/2020 11:16:30 AM EDT [facility] Outpatient Attender: DB FAN MD [facility] 10:30:00 AM EDT [facility] ([facility] [place] [facility]) Outpatient Attender: yMkel [facility] 08/31/2020 01:40:0 0 PM EDT [facility] ([facility]) Outpatient Attender: TYRELL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 EDT tablet 14 TAKE ONE TABLET BY MOUTH EVERY 8 HOURS NEEDED FOR PAIN MAXIMUM DAILY DOSE = 3 TAKE ONE TABLET BY MOUTH EVERY 8 HOURS NEEDED FOR PAIN MAXIMUM DAILY DOSE = 3 SOLD: 05/06/2020 [facility] 20 mg 05/06/2020 12:00:00 AM EDT tablet 15 TAKE TWO TABLETS BY MOUTH EVERY DAY FOR 3 DAYS, TAKE ONE AND ONE-HALF TABLETS EVERY DAY FOR 3 DAYS, TAKE ONE TABLET EVERY DAY FOR 3 DAYS, TAKE ONE-HALF TABLET EVERY DAY FOR 3 DAYS TAKE TWO TABLETS BY MOUTH EVERY DAY FOR 3 DAYS, TAKE ONE AND ONE-HALF TABLETS EVERY DAY FOR 3 DAYS, TAKE ONE TABLET EVERY DAY FOR 3 DAYS, TAKE ONE-HALF TABLET EVERY DAY FOR 3 DAYS SOLD: 05/06/2020 [facility] 5-325 mg 05/04/2020 12:00:00 AM EDT tablet 6 TAKE 1 TABLET BY MOUTH EVERY 6 HOURS NEEDED FOR PAIN MAXIMUM DAILY DOSE = 4 TAKE 1 TABLET BY MOUTH EVERY 6 HOURS NEEDED FOR PAIN MAXIMUM DAILY DOSE = 4 SOLD: 05/04/2020 [facility] 0.5 mg 04/27/2020 12:00:00 AM EDT tablet 90 TAKE 1 TABLET BY MOUTH 3 TIMES A DAY MAXIMUM DAILY DOSE = 3 TAKE 1 TABLET BY MOUTH 3 TIMES A DAY MAX IMUM DAILY DOSE = 3 SOLD: 04/27/2020 [facility] 81 mg 04/27/2020 12:00:00 AM EDT tablet,delayed release (DR/EC) 30 TAKE ONE TABLET BY MOUTH EVERY DAY TAKE ONE TABLET BY MOUTH EVERY DAY SOLD: 04/27/2020 [facility] cetirizine hydrochloride 10 MG Oral Tabl et Cetirizine HCl 10 MG Oral Tablet (ZYRTEC) Cetirizine HCl 10 MG Oral Tablet (ZYRTEC) 04/24/2020 12:00:00 AM EDT 10 mg Oral active Take 10 mg by mouth [facility] 90 mcg/actuation 04/22/2020 12:00:00 AM EDT HFA aerosol inha ler 18 INHALE TWO PUFFS BY MOUTH EVERY 6 HOURS NEEDED INHALE TWO PUFFS BY MOUTH EVERY 6 HOURS NEEDED SOLD: 04/25/2020 [facility] 500 mg 04/22/2020 12:00:00 AM EDT tablet 30 TAKE ONE TABLET BY MOUTH EVERY DAY WITH A MEAL TAKE ONE TABLET BY MOUTH EVERY DAY WITH A MEAL SOLD: 020 [facility] 10 mg 04/21/2020 12:00:00 AM EDT tablet 11 TAKE 1 TABLET BY MOUTH DAILY FOR 1 WEEK, THEN 1/2 TABLET DAILY FOR 1 WEEK TAKE 1 TABLET BY MOUTH DAILY FOR 1 WEEK, THEN 1/2 TABLET DAILY FOR 1 WEEK SOLD: 04/21/2020 [facility] 50-325-40 mg 04/16/2020 12:00:00 AM EDT tablet 30 TAKE ONE TABLET BY MOUTH EVERY 4 HOURS NEEDED TAKE ONE TABLET BY MOUTH EVERY 4 HOURS NEEDED SOLD: 04/16/2020 [facility] 20 mg 04/16/2020 12:00:00 AM EDT tablet,delayed release (DR/EC) 30 TAKE ONE BY MOUTH EVERY DAY TAKE ONE BY MOUTH EVERY DAY SOLD: 04/16/2020 [facility] 2 % 04/15/2020 12:00:00 AM EDT cream 15 APPLY TO AFFECTED AREA(S) ONCE DAILY APPLY TO AFFECTED AREA(S) ONCE DAILY SOLD: 04/16/2020 [facility] 0.5 mg-3 mg(2.5 mg base)/3 mL 03/30/2020 12:00:0 0 AM EDT solution for nebulization 360 INHALE 1 VIAL VIA NEBULIZER EVER Y 6 HOURS NEEDED INHALE 1 VIAL VIA NEBULIZER EVERY 6 HOURS NEEDED SOLD: 04/01/2020 [facility] 0.5 mg-3 mg(2.5 mg base)/3 mL 03/30/2020 12:00:0 0 AM EDT solution for nebulization 360 INHALE 1 VIAL VIA NEBULIZER EVER Y 6 HOURS NEEDED INHALE 1 VIAL VIA NEBULIZER EVERY 6 HOURS NEEDED SOLD: 05/04/2020 [facility] 0.5 mg 03/29/2020 12:00:00 AM EDT tablet 90 TAKE ONE TABLET BY MOUTH THREE TIMES A DAY MAXIMUM DAILY DOSE = THREE TABLETS TAKE ONE TABLET BY MOUTH THREE TIMES A DAY MAXIMUM DAILY DOSE = THREE TABLETS SOLD: 03/29/2020 [facility] 20 mg 03/22/2020 12:00:00 AM EDT capsule 60 TAKE TWO CAPSULES BY MOUTH EVERY DAY TAKE TWO CAPSULES BY MOUTH EVERY DAY SOLD: 03/22/2020 [facility] 500 mg 03/22/2020 12:00:00 AM EDT tablet 14 TAKE ONE TABLET BY MOUTH TWICE A DAY FOR 7 DAYS TAKE ONE TABLET BY MOUTH TWICE A DAY FOR 7 DAYS SOLD: 03/22/2020 [facility] 150 mg 03/22/2020 12:00:00 AM EDT tablet 1 TAKE ONE TABLET BY MOUTH FOR 1 DOSE TAKE ONE TABLET BY MOUTH FOR 1 DOSE SOLD: 03/22/2020 [facility] 50-325-40 mg 03/22/2020 12:00:00 AM EDT tablet 10 TAKE ONE TABLET BY MOUTH EVERY 4 HOURS NEEDED TAKE ONE TABLET BY MOUTH EVERY 4 HOURS NEEDED SOLD: 04/01/2020 [facility] 50-325-40 mg 03/22/2020 12:00:00 AM EDT tablet 10 TAKE ONE TABLET BY MOUTH EVERY 4 HOURS NEEDED TAKE ONE TABLET BY MOUTH EVERY 4 HOURS NEEDED SOLD: 04/04/2020 [facility] 50-325-40 mg 03/22/2020 12:00:00 AM EDT tablet 10 TAKE ONE TABLET BY MOUTH EVERY 4 HOURS NEEDED TAKE ONE TABLET BY MOUTH EVERY 4 HOURS NEEDED SOLD: 04/10/2020 [facility] 50-325-40 mg 03/22/2020 12:00:00 AM EDT tablet 10 TAKE ONE TABLET BY MOUTH EVERY 4 HOURS NEEDED TAKE ONE TABLET BY MOUTH EVERY 4 HOURS NEEDED SOLD: 03/22/2020 [facility] 50-325-40 mg 03/22/2020 12:00:00 AM EDT tablet 10 TAKE ONE TABLET BY MOUTH EVERY 4 HOURS NEEDED TAKE ONE TABLET BY MOUTH EVERY 4 HOURS NEEDED SOLD: 03/25/2020 [facility] 20 mg 03/22/2020 12:00:00 AM EDT capsule 60 TAKE TWO CAPSULES BY MOUTH EVERY DAY TAKE TWO CAPSULES BY MOUTH EVERY DAY SOLD: 04/18/2020 [facility] 200 mg 03/19/2020 12:00:00 AM EDT capsule 30 INSERT 1 CAPSULE VAGINALLY AT NIGHT INSERT 1 CAPSULE VAGINALLY AT NIGHT SOLD: 04/18/2020 [facility] 200 mg 03/19/2020 12:00:00 AM EDT capsule 30 INSERT 1 CAPSULE VAGINALLY AT NIGHT INSERT 1 CAPSULE VAGINALLY AT NIGHT SOLD: 03/22/2020 [facility] quetiapine 300 MG Oral Tablet QUETIAPINE FUMARATE 03/10/2020 12: 00:00 AM EDT tablet 30 TAKE ONE TABLET BY MOUTH EVERY D AY AT BEDTIME TAKE ONE TABLET BY MOUTH EVERY DAY AT BEDTIME SOLD: 04/05/2020 [facility] quetiapine 300 MG Oral Tablet QUETIAPINE FUMARATE 03/10/2020 12: 00:00 AM EDT tablet 30 TAKE ONE TABLET BY MOUTH EVERY D AY AT BEDTIME TAKE ONE TABLET BY MOUTH EVERY DAY AT BEDTIME SOLD: 03/10/2020 [facility] quetiapine 50 MG Oral Tablet QUETIAPINE FUMARATE 03/10/2020 12:0 0:00 AM EDT tablet 60 TAKE ONE TABLET BY M OUTH EVERY DAY IN THE MORNING AND ONE TABLET AT NOON TAKE ONE TABLET BY MOUTH EVERY DAY IN THE MORNING AND ONE TABLET AT NOON SOLD: 05/07/2020 [facility] quetiapine 50 MG Oral Tablet QUETIAPINE FUMARATE 03/10/2020 12:0 0:00 AM EDT tablet 60 TAKE ONE TABLET BY M OUTH EVERY DAY IN THE MORNING AND ONE TABLET AT NOON TAKE ONE TABLET BY MOUTH EVERY DAY IN THE MORNING AND ONE TABLET AT NOON SOLD: 03/10/2020 [facility] 0.5 mg 02/29/2020 12:00:00 AM EDT tablet 90 TAKE ONE TABLET BY MOUTH THREE TIMES A DAY MAXIMUM DAILY DOSE = 3 TAKE ONE TABLET BY MOUTH THREE TIMES A D AY MAXIMUM DAILY DOSE = 3 SOLD: 02/29/2020 [facility] 10 mg 02/26/2020 12:00:00 AM EDT tablet 30 TAKE ONE TABLET BY MOUTH EVERY DAY TAKE ONE TABLET BY MOUTH EVERY DAY SOLD: 03/29/2020 [facility] 10 mg 02/26/2020 12:00:00 AM EDT tablet 30 TAKE ONE TABLET BY MOUTH EVERY DAY TAKE ONE TABLET BY MOUTH EVERY DAY SOLD: 04/25/2020 [facility] 10 mg 02/26/2020 12:00:00 AM EDT tablet 30 TAKE ONE TABLET BY MOUTH EVERY DAY TAKE ONE TABLET BY MOUTH EVERY DAY SOLD: 02/29/2020 [facility] 200 mg 02/18/2020 12:00:00 AM EDT capsule 30 INSERT ONE CAPSULE PER VAGINA IN THE EVENING UNTIL 36 WEEKS INSERT ONE CAPSULE PER VAGINA IN THE FRANCINE CARLA UNTIL 36 WEEKS SOLD: 02/18/2020 [facility] 750 mg 02/06/2020 12:00:00 AM EDT tablet 120 TAKE TWO TABLETS BY MOUTH TWICE A DAY TAKE TWO TABLETS BY MOUTH TWICE A DAY SOLD: 02/06/2020 [facility] 750 mg 02/06/2020 12:00:00 AM EDT tablet 120 TAKE TWO TABLETS BY MOUTH TWICE A DAY TAKE TWO TABLETS BY MOUTH TWICE A DAY SOLD: 03/06/2020 [facility] 750 mg 02/06/2020 12:00:00 AM EDT tablet 120 TAKE TWO TABLETS BY MOUTH TWICE A DAY TAKE TWO TABLETS BY MOUTH TWICE A DAY SOLD: 04/01/2020 [facility] 8 mg 02/06/2020 12:00:00 AM EDT tablet,disintegrating [address] ONE TABLET UNDER THE TONGUE FOUR TIMES A DAY NEEDED PLACE ONE TABLET UNDER THE TONGUE FOUR TIMES A DAY NEEDED SOLD: 02/06/2020 [facility] 750 mg 02/06/2020 12:00:00 AM EDT tablet 120 TAKE TWO TABLETS BY MOUTH TWICE A DAY TAKE TWO TABLETS BY MOUTH TWICE A DAY SOLD: 05/04/2020 [facility] Levetiracetam 1000 MG Oral Tablet levETIRAcetam 1000 M G Oral Tablet (KEPPRA) levETIRAcetam 1000 MG Oral Tablet (KEPPRA) 02/04/2020 12:00:00 AM EDT 1000 mg Oral aborted Take 1,000 mg by rojas th Two Times Daily [facility] 0.5 mg-3 mg(2.5 mg base)/3 mL 02/03/2020 12:00:0 0 AM EDT solution for nebulization 360 INHALE 1 VIAL VIA NEBULIZER EVER Y 6 HOURS NEEDED INHALE 1 VIAL VIA NEBULIZER EVERY 6 HOURS NEEDED SOLD: 02/03/2020 [facility] 0.5 mg-3 mg(2.5 mg base)/3 mL 02/03/2020 12:00:0 0 AM EDT solution for nebulization 360 INHALE 1 VIAL VIA NEBULIZER EVER Y 6 HOURS NEEDED INHALE 1 VIAL VIA NEBULIZER EVERY 6 HOURS NEEDED SOLD: 03/03/2020 [facility] 0.5 mg 01/28/2020 12:00:00 AM EDT tablet 90 TAKE ONE TABLET BY MOUTH THREE TIMES A DAY MAXIMUM DAILY DOSE = THREE TABLETS TAKE ONE TABLET BY MOUTH THREE TIMES A DAY MAXIMUM DAILY DOSE = THREE TABLETS SOLD: 01/28/2020 [facility] 500 mg 01/26/2020 12:00:00 AM EDT tablet 30 TAKE ONE TABLET BY MOUTH EVERY DAY WITH A MEAL TAKE ONE TABLET BY MOUTH EVERY DAY WITH A MEAL SOLD: 020 [facility] 500 mg 01/26/2020 12:00:00 AM EDT tablet 30 TAKE ONE TABLET BY MOUTH EVERY DAY WITH A MEAL TAKE ONE TABLET BY MOUTH EVERY DAY WITH A MEAL SOLD: 020 [facility] 500 mg 01/26/2020 12:00:00 AM EDT tablet 30 TAKE ONE TABLET BY MOUTH EVERY DAY WITH A MEAL TAKE ONE TABLET BY MOUTH EVERY DAY WITH A MEAL SOLD: 020 [facility] 20 mg 01/23/2020 12:00:00 AM EDT capsule 60 TAKE TWO CAPSULES BY MOUTH EVERY DAY TAKE TWO CAPSULES BY MOUTH EVERY DAY SOLD: 02/25/2020 [facility] 20 mg 01/23/2020 12:00:00 AM EDT capsule 60 TAKE TWO CAPSULES BY MOUTH EVERY DAY TAKE TWO CAPSULES BY MOUTH EVERY DAY SOLD: 01/26/2020 [facility] quetiapine 300 MG Oral Tablet QUETIAPINE FUMARATE 01/21/2020 12: 00:00 AM EDT tablet 30 TAKE ONE TABLET BY MOUTH AT BEDT KAROL TAKE ONE TABLET BY MOUTH AT BEDTIME SOLD: 01/21/2020 [facility] quetiapine 300 MG Oral Tablet QUETIAPINE FUMARATE 01/21/2020 12: 00:00 AM EDT tablet 30 TAKE ONE TABLET BY MOUTH AT BEDT KAROL TAKE ONE TABLET BY MOUTH AT BEDTIME SOLD: 02/16/2020 [facility] 1 mg 01/20/2020 12:00:00 AM EDT capsule 90 TAKE THREE CAPSULES BY MOUTH AT BEDTIME TAKE THREE CAPSULES BY MOUTH AT BEDTIME SOLD: 02/16/2020 [facility] 1 mg 01/20/2020 12:00:00 AM EDT capsule 90 TAKE THREE CAPSULES BY MOUTH AT BEDTIME TAKE THREE CAPSULES BY MOUTH AT BEDTIME SOLD: 01/20/2020 [facility] quetiapine 50 MG Oral Tablet QUETIAPINE FUMARATE 01/20/2020 12:0 0:00 AM EDT tablet 60 TAKE ONE TABLET BY M OUTH EVERY DAY IN THE MORNING AND ONE TABLET AT NOON TAKE ONE TABLET BY MOUTH EVERY DAY IN THE MORNING AND ONE TABLET AT NOON SOLD: 02/16/2020 [facility] quetiapine 50 MG Oral Tablet QUETIAPINE FUMARATE 01/20/2020 12:0 0:00 AM EDT tablet 60 TAKE ONE TABLET BY M OUTH EVERY DAY IN THE MORNING AND ONE TABLET AT NOON TAKE ONE TABLET BY MOUTH EVERY DAY IN THE MORNING AND ONE TABLET AT NOON SOLD: 01/20/2020 [facility] 10 mg 01/19/2020 12:00:00 AM EDT tablet 12 TAKE 3 TABLETS BY MOUTH EVERY DAY FOR 2 DAYS, THEN 2 TABLETS DAILY FOR 2 DAYS, THEN 1 TABLET DAILY FOR 2 DAYS TAKE 3 TABLETS BY MOUTH EVERY DAY FOR 2 DAYS, THEN 2 TABLETS DAILY FOR 2 DAYS, THEN 1 TABLET DAILY FOR 2 DAYS SOLD: 01/20/2020 [facility] 20 mg 01/13/2020 12:00:00 AM EST tablet 10 TAKE TWO TABLETS BY MOUTH EVERY DAY FOR 5 DAYS TAKE TWO TABLETS BY MOUTH EVERY DAY FOR 5 DAYS SOLD: 020 [facility] 50-325-40 mg 01/13/2020 12:00:00 AM EST tablet 10 TAKE ONE TABLET BY MOUTH EVERY 4 HOURS NEEDED TAKE ONE TABLET BY MOUTH EVERY 4 HOURS NEEDED SOLD: 02/03/2020 [facility] 50-325-40 mg 01/13/2020 12:00:00 AM EST tablet 10 TAKE ONE TABLET BY MOUTH EVERY 4 HOURS NEEDED TAKE ONE TABLET BY MOUTH EVERY 4 HOURS NEEDED SOLD: 02/06/2020 [facility] 50-325-40 mg 01/13/2020 12:00:00 AM EST tablet 10 TAKE ONE TABLET BY MOUTH EVERY 4 HOURS NEEDED TAKE ONE TABLET BY MOUTH EVERY 4 HOURS NEEDED SOLD: 01/20/2020 [facility] 50-325-40 mg 01/13/2020 12:00:00 AM EST tablet 10 TAKE ONE TABLET BY MOUTH EVERY 4 HOURS NEEDED TAKE ONE TABLET BY MOUTH EVERY 4 HOURS NEEDED SOLD: 01/26/2020 [facility] 50-325-40 mg 01/13/2020 12:00:00 AM EST tablet 10 TAKE ONE TABLET BY MOUTH EVERY 4 HOURS NEEDED TAKE ONE TABLET BY MOUTH EVERY 4 HOURS NEEDED SOLD: 01/16/2020 [facility] 50-325-40 mg 01/13/2020 12:00:00 AM EST tablet 10 TAKE ONE TABLET BY MOUTH EVERY 4 HOURS NEEDED TAKE ONE TABLET BY MOUTH EVERY 4 HOURS NEEDED SOLD: 01/13/2020 [facility] 25 mcg (1,000 unit) 01/12/2020 12:00:00 AM EST tablet 45 TAKE ONE AND ONE- HALF TABLETS BY MOUTH EVERY DAY TAKE ONE AND ONE-HALF TABLETS BY MOUTH E VERY SOLD: 03/22/2020 [facility] 25 mcg (1,000 unit) 01/12/2020 12:00:00 AM EST tablet 45 TAKE ONE AND ONE- HALF TABLETS BY MOUTH EVERY DAY TAKE ONE AND ONE-HALF TABLETS BY MOUTH E VERY SOLD: 04/18/2020 [facility] 25 mcg (1,000 unit) 01/12/2020 12:00:00 AM EST tablet 45 TAKE ONE AND ONE- HALF TABLETS BY MOUTH EVERY DAY TAKE ONE AND ONE-HALF TABLETS BY MOUTH E VERY SOLD: 02/16/2020 [facility] 25 mcg (1,000 unit) 01/12/2020 12:00:00 AM EST tablet 45 TAKE ONE AND ONE- HALF TABLETS BY MOUTH EVERY DAY TAKE ONE AND ONE-HALF TABLETS BY MOUTH E SOLD: 01/20/2020 [facility] 90 mcg/actuation 01/09/2020 12:00:00 AM EST HFA aerosol inha ler 18 INHALE TWO PUFFS BY MOUTH EVERY 6 HOURS NEEDED INHALE TWO PUFFS BY MOUTH EVERY 6 HOURS NEEDED SOLD: 03/22/2020 [facility] 90 mcg/actuation 01/09/2020 12:00:00 AM EST HFA aerosol inha ler 18 INHALE TWO PUFFS BY MOUTH EVERY 6 HOURS NEEDED INHALE TWO PUFFS BY MOUTH EVERY 6 HOURS NEEDED SOLD: 03/03/2020 [facility] 90 mcg/actuation 01/09/2020 12:00:00 AM EST HFA aerosol inha ler 18 INHALE TWO PUFFS BY MOUTH EVERY 6 HOURS NEEDED INHALE TWO PUFFS BY MOUTH EVERY 6 HOURS NEEDED SOLD: 01/26/2020 [facility] 90 mcg/actuation 01/09/2020 12:00:00 AM EST HFA aerosol inha ler 18 INHALE TWO PUFFS BY MOUTH EVERY 6 HOURS NEEDED INHALE TWO PUFFS BY MOUTH EVERY 6 HOURS NEEDED SOLD: 02/16/2020 [facility] 90 mcg/actuation 01/09/2020 12:00:00 AM EST HFA aerosol inha ler 18 INHALE TWO PUFFS BY MOUTH EVERY 6 HOURS NEEDED INHALE TWO PUFFS BY MOUTH EVERY 6 HOURS NEEDED SOLD: 01/11/2020 [facility] 90 mcg/actuation 01/09/2020 12:00:00 AM EST HFA aerosol inha ler 18 INHALE TWO PUFFS BY MOUTH EVERY 6 HOURS NEEDED INHALE TWO PUFFS BY MOUTH EVERY 6 HOURS NEEDED SOLD: 04/05/2020 [facility] 10 mg 01/08/2020 12:00:00 AM EST tablet 90 TAKE ONE TABLET BY MOUTH THREE TIMES A DAY WITH MEALS TAKE ONE TABLET BY MOUTH THREE TIMES A DAY WITH MEALS SOLD: 02/04/2020 [facility] 400 mg (241.3 mg magnesium) 01/08/2020 12:00:00 AM EST table t 30 TAKE ONE TABLET BY MOUTH EVERY DAY TAKE ONE TABLET BY MOUTH EVERY DAY SOLD: 02/04/2020 [facility] 400 mg (241.3 mg magnesium) 01/08/2020 12:00:00 AM EST table t 30 TAKE ONE TABLET BY MOUTH EVERY DAY TAKE ONE TABLET BY MOUTH EVERY DAY SOLD: 01/08/2020 [facility] 10 mg 01/08/2020 12:00:00 AM EST tablet 90 TAKE ONE TABLET BY MOUTH THREE TIMES A DAY WITH MEALS TAKE ONE TABLET BY MOUTH THREE TIMES A DAY WITH MEALS SOLD: 01/08/2020 [facility] 225 mg/1.5 mL 12/31/2019 12:00:00 AM EST syringe 4 INJECT 3 SYRINGES UNDER THE SKIN EVERY 3 MONTHS (LASTS 90 DAYS) INJECT 3 SYRINGES UNDER THE SKIN EVERY 3 MONTHS (LASTS 90 DAYS) SOLD: 01/02/2020 [facility] 0.5 mg 12/30/2019 12:00:00 AM EST tablet 90 TAKE ONE TABLET BY MOUTH THREE TIMES A DAY MAXIMUM DAILY DOSE = THREE TABLETS TAKE ONE TABLET BY MOUTH THREE TIMES A DAY MAXIMUM DAILY DOSE = THREE TABLETS SOLD: 12/30/2019 [facility] 50-325-40 mg 12/19/2019 12:00:00 AM EST tablet 11 TAKE ONE TABLET BY MOUTH EVERY 4 HOURS NEEDED TAKE ONE TABLET BY MOUTH EVERY 4 HOURS NEEDED SOLD: 12/28/2019 [facility] 50-325-40 mg 12/19/2019 12:00:00 AM EST tablet 11 TAKE ONE TABLET BY MOUTH EVERY 4 HOURS NEEDED TAKE ONE TABLET BY MOUTH EVERY 4 HOURS NEEDED SOLD: 01/02/2020 [facility] 50-325-40 mg 12/19/2019 12:00:00 AM EST tablet 11 TAKE ONE TABLET BY MOUTH EVERY 4 HOURS NEEDED TAKE ONE TABLET BY MOUTH EVERY 4 HOURS NEEDED SOLD: 01/05/2020 [facility] 50-325-40 mg 12/19/2019 12:00:00 AM EST tablet 11 TAKE ONE TABLET BY MOUTH EVERY 4 HOURS NEEDED TAKE ONE TABLET BY MOUTH EVERY 4 HOURS NEEDED SOLD: 01/08/2020 [facility] 50-325-40 mg 12/19/2019 12:00:00 AM EST tablet 11 TAKE ONE TABLET BY MOUTH EVERY 4 HOURS NEEDED TAKE ONE TABLET BY MOUTH EVERY 4 HOURS NEEDED SOLD: 12/19/2019 [facility] 50-325-40 mg 12/19/2019 12:00:00 AM EST tablet 11 TAKE ONE TABLET BY MOUTH EVERY 4 HOURS NEEDED TAKE ONE TABLET BY MOUTH EVERY 4 HOURS NEEDED SOLD: 01/11/2020 [facility] 81 mg 12/12/2019 12:00:00 AM EST tablet,delayed release (DR/EC) 30 TAKE ONE TABLET BY MOUTH EVERY DAY TAKE ONE TABLET BY MOUTH EVERY DAY SOLD: 12/13/2019 [facility] 81 mg 12/12/2019 12:00:00 AM EST tablet,delayed release (DR/EC) 30 TAKE ONE TABLET BY MOUTH EVERY DAY TAKE ONE TABLET BY MOUTH EVERY DAY SOLD: 03/03/2020 [facility] 27 mg iron- 800 mcg 12/12/2019 12:00:00 AM EST tablet 30 TAKE ONE TABLET BY MOUTH EVERY DAY TAKE ONE TABLET BY MOUTH EVERY DAY SOLD: 02/04/2020 [facility] 27 mg iron- 800 mcg 12/12/2019 12:00:00 AM EST tablet 30 TAKE ONE TABLET BY MOUTH EVERY DAY TAKE ONE TABLET BY MOUTH EVERY DAY SOLD: 01/08/2020 [facility] 81 mg 12/12/2019 12:00:00 AM EST tablet,delayed release (DR/EC) 30 TAKE ONE TABLET BY MOUTH EVERY DAY TAKE ONE TABLET BY MOUTH EVERY DAY SOLD: 01/08/2020 [facility] 27 mg iron- 800 mcg 12/12/2019 12:00:00 AM EST tablet 30 TAKE ONE TABLET BY MOUTH EVERY DAY TAKE ONE TABLET BY MOUTH EVERY DAY SOLD: 04/25/2020 [facility] 81 mg 12/12/2019 12:00:00 AM EST tablet,delayed release (DR/EC) 30 TAKE ONE TABLET BY MOUTH EVERY DAY TAKE ONE TABLET BY MOUTH EVERY DAY SOLD: 02/04/2020 [facility] 27 mg iron- 800 mcg 12/12/2019 12:00:00 AM EST tablet 30 TAKE ONE TABLET BY MOUTH EVERY DAY TAKE ONE TABLET BY MOUTH EVERY DAY SOLD: 03/29/2020 [facility] 27 mg iron- 800 mcg 12/12/2019 12:00:00 AM EST tablet 30 TAKE ONE TABLET BY MOUTH EVERY DAY TAKE ONE TABLET BY MOUTH EVERY DAY SOLD: 12/13/2019 [facility] 27 mg iron- 800 mcg 12/12/2019 12:00:00 AM EST tablet 30 TAKE ONE TABLET BY MOUTH EVERY DAY TAKE ONE TABLET BY MOUTH EVERY DAY SOLD: 03/03/2020 [facility] 81 mg 12/12/2019 12:00:00 AM EST tablet,delayed release (DR/EC) 30 TAKE ONE TABLET BY MOUTH EVERY DAY TAKE ONE TABLET BY MOUTH EVERY DAY SOLD: 04/01/2020 [facility] multivitamin tablet 12/11/2019 12:00:00 AM EST 1 {tbl} Oral active Take 1 tablet by rojas th daily Physician authorizes substitution of vitamin based on insurance approval. [facility] Aspirin 81 MG Delayed Release Oral Table t Aspirin EC 81 MG Oral Tablet Delayed Release Aspirin EC 81 MG Oral Tablet Delayed Release 12/11/2019 12:0 0:00 AM EST 81 mg Oral active Take 1 tablet by mouth daily [facility] 12.5 mg 12/09/2019 12:00:00 AM EST capsule 60 TAKE 2 CAPSULES BY MOUTH ONCE DAILY IN THE MORNING TAKE 2 CAPSULES BY MOUTH ONCE DAILY IN THE MORNING [facility] 1,250 mcg (50,000 unit) 12/06/2019 12:00:00 AM EST capsule 6 TAKE BY MOUTH ALTERNATING 1 CAPSULE ONCE WEEKLY THEN 2 CAPSULES ONCE WEEKLY TAKE BY MOUTH ALTERNATING 1 CAPSULE ONCE WEEKLY THEN 2 CAPSULES ONCE WEEKLY SOLD: 02/03/2020 [facility] 1,250 mcg (50,000 unit) 12/06/2019 12:00:00 AM EST capsule 6 TAKE BY MOUTH ALTERNATING 1 CAPSULE ONCE WEEKLY THEN 2 CAPSULES ONCE WEEKLY TAKE BY MOUTH ALTERNATING 1 CAPSULE ONCE WEEKLY THEN 2 CAPSULES ONCE WEEKLY SOLD: 01/02/2020 [facility] 1,250 mcg (50,000 unit) 12/06/2019 12:00:00 AM EST capsule 6 TAKE BY MOUTH ALTERNATING 1 CAPSULE ONCE WEEKLY THEN 2 CAPSULES ONCE WEEKLY TAKE BY MOUTH ALTERNATING 1 CAPSULE ONCE WEEKLY THEN 2 CAPSULES ONCE WEEKLY SOLD: 03/03/2020 [facility] 1,250 mcg (50,000 unit) 12/06/2019 12:00:00 AM EST capsule 6 TAKE BY MOUTH ALTERNATING 1 CAPSULE ONCE WEEKLY THEN 2 CAPSULES ONCE WEEKLY TAKE BY MOUTH ALTERNATING 1 CAPSULE ONCE WEEKLY THEN 2 CAPSULES ONCE WEEKLY SOLD: 12/07/2019 [facility] Ergocalciferol [id number] UNT Oral Capsule Vi tamin D (Ergocalciferol) 1.25 MG (32500 UT) Oral Capsule (ERGOCALCIFEROL) Vitamin D (Ergocalciferol) 1.25 MG (5000 0 UT) Oral Capsule (ERGOCALCIFEROL) 12/05/2019 12:00:00 AM EST active every 7 (seven) days Alt [id number] and [id number] weekly [facility] quetiapine 300 MG Oral Tablet QUETIAPINE FUMARATE 12/03/2019 12: 00:00 AM EST tablet 30 TAKE ONE TABLET BY MOUTH AT BEDT KAROL TAKE ONE TABLET BY MOUTH AT BEDTIME SOLD: 12/03/2019 [facility] quetiapine 300 MG Oral Tablet QUETIAPINE FUMARATE 12/03/2019 12: 00:00 AM EST tablet 30 TAKE ONE TABLET BY MOUTH AT BEDT KAROL TAKE ONE TABLET BY MOUTH AT BEDTIME SOLD: 12/30/2019 [facility] 0.5 mg 11/30/2019 12:00:00 AM EST tablet 90 TAKE ONE TABLET BY MOUTH THREE TIMES A DAY MAXIMUM DAILY DOSE = THREE TABLETS TAKE ONE TABLET BY MOUTH THREE TIMES A DAY MAXIMUM DAILY DOSE = THREE TABLETS SOLD: 11/30/2019 [facility] Albuterol Sulfate HFA 108 (90 Base) MCG/ ACT Inhalation Aerosol Solution (PROVENTIL HFA;VENTOLIN HFA) 7311-1450-68 11/27/2019 12:00:00 AM EST active [facility] 20 mg 11/26/2019 12:00:00 AM EST capsule 60 TAKE TWO CAPSULES BY MOUTH EVERY DAY TAKE TWO CAPSULES BY MOUTH EVERY DAY SOLD: 12/28/2019 [facility] 20 mg 11/26/2019 12:00:00 AM EST capsule 60 TAKE TWO CAPSULES BY MOUTH EVERY DAY TAKE TWO CAPSULES BY MOUTH EVERY DAY SOLD: 11/28/2019 [facility] 1 mg 11/25/2019 12:00:00 AM EST capsule 90 TAKE THREE CAPSULES BY MOUTH AT BEDTIME TAKE THREE CAPSULES BY MOUTH AT BEDTIME SOLD: 11/25/2019 [facility] 1 mg 11/25/2019 12:00:00 AM EST capsule 90 TAKE THREE CAPSULES BY MOUTH AT BEDTIME TAKE THREE CAPSULES BY MOUTH AT BEDTIME SOLD: 12/22/2019 [facility] quetiapine 50 MG Oral Tablet QUETIAPINE FUMARATE 11/25/2019 12:0 0:00 AM EST tablet 60 TAKE ONE TABLET BY MOUTH EVERY M ORNING AND 1 TABLET AT NOON TAKE ONE TABLET BY MOUTH EVERY MORNING AND 1 TABLET AT NOON SOLD: 12/22/2019 [facility] quetiapine 50 MG Oral Tablet QUETIAPINE FUMARATE 11/25/2019 12:0 0:00 AM EST tablet 60 TAKE ONE TABLET BY MOUTH EVERY M ORNING AND 1 TABLET AT NOON TAKE ONE TABLET BY MOUTH EVERY MORNING AND 1 TABLET AT NOON SOLD: 11/25/2019 [facility] quetiapine 300 MG Oral Tablet QUETIAPINE FUMARATE 11/10/2019 12: 00:00 AM EST tablet 30 TAKE ONE TABLET BY MOUTH AT BEDT KAROL TAKE ONE TABLET BY MOUTH AT BEDTIME SOLD: 11/11/2019 [facility] 75 mg 11/07/2019 12:00:00 AM EST capsule 30 TAKE ONE CAPSULE BY MOUTH EVERY DAY MAXIMUM DAILY DOSE = 1 TAKE ONE CAPSULE BY MOUTH EVERY DAY MAXI MUM DAILY DOSE = 1 SOLD: 01/05/2020 [facility] 75 mg 11/07/2019 12:00:00 AM EST capsule 30 TAKE ONE CAPSULE BY MOUTH EVERY DAY MAXIMUM DAILY DOSE = 1 TAKE ONE CAPSULE BY MOUTH EVERY DAY MAXI MUM DAILY DOSE = 1 SOLD: 03/09/2020 [facility] 75 mg 11/07/2019 12:00:00 AM EST capsule 30 TAKE ONE CAPSULE BY MOUTH EVERY DAY MAXIMUM DAILY DOSE = 1 TAKE ONE CAPSULE BY MOUTH EVERY DAY MAXI MUM DAILY DOSE = 1 SOLD: 04/10/2020 [facility] 75 mg 11/07/2019 12:00:00 AM EST capsule 30 TAKE ONE CAPSULE BY MOUTH EVERY DAY MAXIMUM DAILY DOSE = 1 TAKE ONE CAPSULE BY MOUTH EVERY DAY MAXI MUM DAILY DOSE = 1 SOLD: 12/07/2019 [facility] 75 mg 11/07/2019 12:00:00 AM EST capsule 30 TAKE ONE CAPSULE BY MOUTH EVERY DAY MAXIMUM DAILY DOSE = 1 TAKE ONE CAPSULE BY MOUTH EVERY DAY MAXI MUM DAILY DOSE = 1 SOLD: 11/08/2019 [facility] 75 mg 11/07/2019 12:00:00 AM EST capsule 30 TAKE ONE CAPSULE BY MOUTH EVERY DAY MAXIMUM DAILY DOSE = 1 TAKE ONE CAPSULE BY MOUTH EVERY DAY MAXI MUM DAILY DOSE = 1 SOLD: 02/06/2020 [facility] 500 mg 11/03/2019 12:00:00 AM EST tablet 30 TAKE ONE TABLET BY MOUTH EVERY DAY WITH MEALS TAKE ONE TABLET BY MOUTH EVERY DAY WITH MEALS SOLD: 12/30/2019 [facility] 500 mg 11/03/2019 12:00:00 AM EST tablet 30 TAKE ONE TABLET BY MOUTH EVERY DAY WITH MEALS TAKE ONE TABLET BY MOUTH EVERY DAY WITH MEALS SOLD: 12/03/2019 [facility] 90 mcg/actuation 11/03/2019 12:00:00 AM EST HFA aerosol inha ler 18 INHALE TWO PUFFS BY MOUTH EVERY 6 HOURS NEEDED INHALE TWO PUFFS BY MOUTH EVERY 6 HOURS NEEDED SOLD: 11/28/2019 [facility] 20 mg 11/03/2019 12:00:00 AM EST capsule 60 TAKE TWO CAPSULES BY MOUTH EVERY DAY TAKE TWO CAPSULES BY MOUTH EVERY DAY SOLD: 11/06/2019 [facility] 90 mcg/actuation 11/03/2019 12:00:00 AM EST HFA aerosol inha ler 18 INHALE TWO PUFFS BY MOUTH EVERY 6 HOURS NEEDED INHALE TWO PUFFS BY MOUTH EVERY 6 HOURS NEEDED SOLD: 11/06/2019 [facility] 500 mg 11/03/2019 12:00:00 AM EST tablet 30 TAKE ONE TABLET BY MOUTH EVERY DAY WITH MEALS TAKE ONE TABLET BY MOUTH EVERY DAY WITH MEALS SOLD: 11/06/2019 [facility] 90 mcg/actuation 11/03/2019 12:00:00 AM EST HFA aerosol inha ler 18 INHALE TWO PUFFS BY MOUTH EVERY 6 HOURS NEEDED INHALE TWO PUFFS BY MOUTH EVERY 6 HOURS NEEDED SOLD: 12/19/2019 [facility] 0.5 mg 11/01/2019 12:00:00 AM EST tablet 90 TAKE ONE TABLET BY MOUTH THREE TIMES A DAY MAXIMUM DAILY DOSE = 3 TAKE ONE TABLET BY MOUTH THREE TIMES A D AY MAXIMUM DAILY DOSE = 3 SOLD: 11/06/2019 [facility] quetiapine 100 MG Oral Tablet QUETIAPINE FUMARATE 10/31/2019 12: 00:00 AM EST tablet 45 TAKE ONE AND ONE-HALF TABLETS BY MOUTH EVERY DAY AT BEDTIME TAKE ONE AND ONE-HALF TABLETS BY MOUTH EVERY DAY AT BEDTIME SOLD: 11/06/2019 [facility] 1 mg 10/31/2019 12:00:00 AM EST capsule 90 TAKE THREE CAPSULES BY MOUTH EVERY DAY AT BEDTIME TAKE THREE CAPSULES BY MOUTH EVERY DAY AT BEDTIME SOLD : 11/06/2019 [facility] 25 mg 10/30/2019 12:00:00 AM EST tablet 60 TAKE ONE TABLET BY MOUTH EVERY DAY FOR 10 DAYS, THEN INCREASE TO TWO TABLETS DAILY FOR 10 DAYS, THEN INCREASE TO THREE TABLETS DAILY TAKE ONE TABLET BY MOUTH EVERY DAY FOR 1 0 DAYS, THEN INCREASE TO TWO TABLETS DAILY FOR 10 DAYS, THEN INCREASE TO THREE TABLETS DAILY SOLD: 11/06/2019 [facility] quetiapine 300 MG Oral Tablet QUETIAPINE FUMARATE 10/13/2019 12: 00:00 AM EST tablet 30 TAKE ONE TABLET BY MOUTH AT BEDT KAROL TAKE ONE TABLET BY MOUTH AT BEDTIME SOLD: 10/15/2019 [facility] 20 mg 10/13/2019 12:00:00 AM EST capsule 60 TAKE TWO CAPSULES BY MOUTH EVERY DAY TAKE TWO CAPSULES BY MOUTH EVERY DAY SOLD: 10/15/2019 [facility] 25 mg 10/07/2019 12:00:00 AM EST tablet 60 TAKE 1 TABLET BY MOUTH ONCE DAILY FOR 10 DAYS, THEN 2 TABLETS FOR 10 DAYS, THEN 3 TABLETS DAILY TAKE 1 TABLET BY MOUTH ONCE DAILY FOR 10 DAYS, THEN 2 TABLETS FOR 10 DAYS, THEN 3 TABLETS DAILY SOLD: 10/08/2019 [facility] quetiapine 50 MG Oral Tablet QUETIAPINE FUMARATE 10/07/2019 12:0 0:00 AM EST tablet 60 TAKE ONE TABLET BY MOUTH EVERY M ORNING AND 1 TABLET AT NOON TAKE ONE TABLET BY MOUTH EVERY MORNING AND 1 TABLET AT NOON SOLD: 10/08/2019 [facility] 1 mg 10/07/2019 12:00:00 AM EST capsule 90 TAKE THREE CAPSULES BY MOUTH AT BEDTIME TAKE THREE CAPSULES BY MOUTH AT BEDTIME SOLD: 10/08/2019 [facility] 0.5 mg 10/03/2019 12:00:00 AM EST tablet 90 TAKE ONE TABLET BY MOUTH THREE TIMES A DAY MAXIMUM DAILY DOSE = THREE TABLETS TAKE ONE TABLET BY MOUTH THREE TIMES A DAY MAXIMUM DAILY DOSE = THREE TABLETS SOLD: 10/03/2019 [facility] 10 mg 10/02/2019 12:00:00 AM EST tablet 21 TAKE 2 TABLETS BY MOUTH EVERY MORNING WITH FOOD FOR 1 WEEK, THEN 1 TABLET DAILY FOR 1 WEEK TAKE 2 TABLETS BY MOUTH EVERY MORNING WITH FOOD FOR 1 WEEK, THEN 1 TABLET DAILY FOR 1 WEEK SOLD: 10/03/2019 [facility] 1,000 mg 09/16/2019 12:00:00 AM EST tablet 60 TAKE ONE TABLET BY MOUTH TWICE A DAY TAKE ONE TABLET BY MOUTH TWICE A DAY SOLD: 12/11/2019 [facility] 1,000 mg 09/16/2019 12:00:00 AM EST tablet 60 TAKE ONE TABLET BY MOUTH TWICE A DAY TAKE ONE TABLET BY MOUTH TWICE A DAY SOLD: 02/04/2020 [facility] 1,000 mg 09/16/2019 12:00:00 AM EST tablet 60 TAKE ONE TABLET BY MOUTH TWICE A DAY TAKE ONE TABLET BY MOUTH TWICE A DAY SOLD: 11/11/2019 [facility] 1,000 mg 09/16/2019 12:00:00 AM EST tablet 60 TAKE ONE TABLET BY MOUTH TWICE A DAY TAKE ONE TABLET BY MOUTH TWICE A DAY SOLD: 10/15/2019 [facility] 1,000 mg 09/16/2019 12:00:00 AM EST tablet 60 TAKE ONE TABLET BY MOUTH TWICE A DAY TAKE ONE TABLET BY MOUTH TWICE A DAY SOLD: 01/08/2020 [facility] 75 mg 09/01/2019 12:00:00 AM EDT capsule 30 TAKE ONE CAPSULE BY MOUTH EVERY DAY MAXIMUM DAILY DOSE = 1 TAKE ONE CAPSULE BY MOUTH EVERY DAY MAXI MUM DAILY DOSE = 1 SOLD: 10/01/2019 [facility] 10 mg 08/28/2019 12:00:00 AM EDT tablet 30 TAKE ONE TABLET BY MOUTH EVERY DAY TAKE ONE TABLET BY MOUTH EVERY DAY SOLD: 12/30/2019 [facility] 10 mg 08/28/2019 12:00:00 AM EDT tablet 30 TAKE ONE TABLET BY MOUTH EVERY DAY TAKE ONE TABLET BY MOUTH EVERY DAY SOLD: 01/26/2020 [facility] 10 mg 08/28/2019 12:00:00 AM EDT tablet 30 TAKE ONE TABLET BY MOUTH EVERY DAY TAKE ONE TABLET BY MOUTH EVERY DAY SOLD: 11/06/2019 [facility] 10 mg 08/28/2019 12:00:00 AM EDT tablet 30 TAKE ONE TABLET BY MOUTH EVERY DAY TAKE ONE TABLET BY MOUTH EVERY DAY SOLD: 09/30/2019 [facility] 10 mg 08/28/2019 12:00:00 AM EDT tablet 30 TAKE ONE TABLET BY MOUTH EVERY DAY TAKE ONE TABLET BY MOUTH EVERY DAY SOLD: 12/03/2019 [facility] 50-325-40 mg 08/27/2019 12:00:00 AM EDT tablet 11 TAKE ONE TABLET BY MOUTH EVERY 4 HOURS NEEDED TAKE ONE TABLET BY MOUTH EVERY 4 HOURS NEEDED SOLD: 09/30/2019 [facility] 50-325-40 mg 08/27/2019 12:00:00 AM EDT tablet 11 TAKE ONE TABLET BY MOUTH EVERY 4 HOURS NEEDED TAKE ONE TABLET BY MOUTH EVERY 4 HOURS NEEDED SOLD: 10/21/2019 [facility] 90 mcg/actuation 08/25/2019 12:00:00 AM EDT HFA aerosol inha ler 18 INHALE TWO PUFFS BY MOUTH EVERY 6 HOURS NEEDED INHALE TWO PUFFS BY MOUTH EVERY 6 HOURS NEEDED SOLD: 10/08/2019 [facility] 600 mg 08/22/2019 12:00:00 AM EDT tablet 90 TAKE ONE TABLET BY MOUTH THREE TIMES A DAY TAKE ONE TABLET BY MOUTH THREE TIMES A DAY SOLD: 12/11/2019 [facility] 600 mg 08/22/2019 12:00:00 AM EDT tablet 90 TAKE ONE TABLET BY MOUTH THREE TIMES A DAY TAKE ONE TABLET BY MOUTH THREE TIMES A DAY SOLD: 10/15/2019 [facility] 600 mg 08/22/2019 12:00:00 AM EDT tablet 90 TAKE ONE TABLET BY MOUTH THREE TIMES A DAY TAKE ONE TABLET BY MOUTH THREE TIMES A DAY SOLD: 01/08/2020 [facility] 600 mg 08/22/2019 12:00:00 AM EDT tablet 90 TAKE ONE TABLET BY MOUTH THREE TIMES A DAY TAKE ONE TABLET BY MOUTH THREE TIMES A DAY SOLD: 11/11/2019 [facility] quetiapine 50 MG Oral Tablet QUETIAPINE FUMARATE 08/21/2019 12:0 0:00 AM EDT tablet 60 TAKE ONE TABLET BY MOUTH TWICE A DAY TAKE ONE TABLET BY MOUTH TWICE A DAY SOLD: 11/06/2019 [facility] 1,250 mcg (50,000 unit) 08/18/2019 12:00:00 AM EDT capsule 6 ROTATE EVERY OTHER WEEK TAKING 1 AND 2 CAPSULES BY MOUTH WEEKLY ROTATE EVERY OTHER WEEK TAKING 1 AND 2 CAPSULES BY MOUTH WEEKLY SOLD: 10/15/2019 [facility] 1,250 mcg (50,000 unit) 08/18/2019 12:00:00 AM EDT capsule 6 ROTATE EVERY OTHER WEEK TAKING 1 AND 2 CAPSULES BY MOUTH WEEKLY ROTATE EVERY OTHER WEEK TAKING 1 AND 2 CAPSULES BY MOUTH WEEKLY SOLD: 11/11/2019 [facility] 500 mg 08/14/2019 12:00:00 AM EDT tablet 30 TAKE ONE TABLET BY MOUTH EVERY DAY WITH MEAL TAKE ONE TABLET BY MOUTH EVERY DAY WITH MEAL SOLD: 10/08/2019 [facility] Naproxen 500 MG Oral Tablet Naproxen 500 MG Oral Table t (NAPROSYN) Naproxen 500 MG Oral Tablet (NAPROSYN) 06/27/2019 12:00:00 AM EDT aborted TAKE ONE TABLET BY MOUTH TWICE A DAY WITH FOOD [facility] 12.5 mg 06/24/2019 12:00:00 AM EDT capsule 60 TAKE 2 CAPSULES BY MOUTH EVERY MORNING TAKE 2 CAPSULES BY MOUTH EVERY MORNING SOLD: 10/15/2019 [facility] 12.5 mg 06/24/2019 12:00:00 AM EDT capsule 60 TAKE 2 CAPSULES BY MOUTH EVERY MORNING TAKE 2 CAPSULES BY MOUTH EVERY MORNING SOLD: 11/11/2019 [facility] 225 mg/1.5 mL 04/23/2019 12:00:00 AM EDT syringe 4 INJECT THE CONTENTS OF 3 SYRINGES UNDER THE SKIN EVERY 3 MONTHS INJECT THE CONTENTS OF 3 SYRINGES UNDER THE SKIN EVERY 3 MONTHS SOLD: 09/30/2019 [facility] Progesterone 200 MG Oral Capsule progesterone microniz ed 200 mg capsule progesterone micronized 200 mg capsule completed progesterone 200 MG Oral Capsule [facility] ([facility]) Amoxicillin 875 MG / Clavulanate 125 MG Oral Tablet amoxicillin 875 mg-potassium clavulanate 125 mg tablet amoxicillin 875 mg-potassium clavulanate 125 mg tablet completed amoxici llin 875 MG / clavulanate 125 MG Oral Tablet [facility] ([facility]) Magnesium Oxide 400 MG Oral Tablet magne sium oxide 400 mg (241.3 mg magnesium) tablet magnesium oxide 400 mg (241.3 mg magnesium) tablet completed magnesium oxide 400 MG Oral Tablet ATHEN A ([facility]) Prednisone 10 MG Oral Tablet prednisone 10 mg tablet prednisone 10 mg tablet completed prednisone 10 MG Oral Tablet [facility] ([facility]) Progesterone 200 MG Oral Capsule progesterone microniz ed 200 mg capsule progesterone micronized 200 mg capsule completed progesterone 200 MG Oral Capsule [facility] ([facility]) Metoclopramide 10 MG Oral Tablet metoclopramide 10 mg tablet metoclopramide 10 mg tablet completed metocloprami de 10 MG Oral Tablet [facility] ([facility]) Lidocaine 25 MG/ML / Prilocaine 25 MG/ML Topical Cream lidocaine-prilocaine 2.5 %-2.5 % topical cream lidocaine-prilocaine 2.5 %-2.5 % topical cream completed lidocaine 25 MG/ML / priloca ine 25 MG/ML Topical Cream [facility] ([facility]) Prednisone 10 MG Oral Tablet prednisone 10 mg tablet prednisone 10 mg tablet completed prednisone 10 MG Oral Tablet [place] ([facility]) Levetiracetam 1000 MG Oral Tablet levetiracetam 1,000 mg tablet 1 levetiracetam 1,000 mg tablet 1 completed leve tiracetam 1000 MG Oral Tablet [place] ([facility]) gabapentin 600 MG Oral Tablet gabapentin 600 mg tablet gabap entin 600 mg tablet completed gabapentin 600 MG Oral Tablet [place] ([facility]) rivaroxaban 20 MG Oral Tablet [Xarelto] Xarelto 20 mg tablet Take 1 tablet every day by oral route. Xarelto 20 mg tablet Take 1 tablet every day by oral r oute. 1 completed rivaroxaban 20 MG Oral Tablet [Xarelto] [place] ([facility]) Ketoconazole 20 MG/ML Topical Cream ketoconazole 2 % t opical cream ketoconazole 2 % topical cream completed keto conazole 20 MG/ML Topical Cream [place] ([facility]) rivaroxaban 15 MG Oral Tablet [Xarelto] Xarelto 15 mg tablet Take 1 tablet every day by oral route as directed. Xarelto 15 mg tablet Take 1 tablet every day by oral route as directed. 1 completed rivaroxaban 15 MG Oral Tablet [Xarelto] [place] ([facility]) Deblitane 0.35 mg tablet Take 1 tablet every day by or al route for 84 days. [id number] 1 completed Deblitane 0.35 mg tablet [place] ([facility]) Bacitracin 0.5 UNT/MG Topical Ointment b acitracin 500 unit/gram topical ointment bacitracin 500 unit/gram topical ointment completed bacitracin 0.5 UNT/MG Topical Ointment [place] ([facility]) rivaroxaban 20 MG Oral Tablet [Xarelto] Xarelto 20 mg tablet Take 1 tablet every day by oral route. Xarelto 20 mg tablet Take 1 tablet every day by oral r oute. 1 completed rivaroxaban 20 MG Oral Tablet [Xarelto] [place] ([facility]) Metformin hydrochloride 500 MG Oral Tablet metformin 5 00 mg tablet metformin 500 mg tablet completed metformin h ydrochloride 500 MG Oral Tablet [place] ([facility]) Hydrochlorothiazide 12.5 MG Oral Tablet hydrochlorothiazide 12.5 mg tablet Take 1 tablet every day by oral route. hydrochlorothiazide 12.5 mg tablet Take 1 tablet every day by oral route. 1 comple jina hydrochlorothiazide 12.5 MG Oral Tablet [facility] ([facility]) 0.5 ML Fondaparinux sodium 5 MG/ML Prefi lled Syringe fondaparinux 2.5 mg/0.5 mL subcutaneous solution syringe fondaparinux 2.5 mg/0.5 mL subcutaneous solution syringe completed 0.5 ML fondaparinux sodium 5 MG/ML Prefilled Syringe [place] ([facility]) Amoxicillin 875 MG / Clavulanate 125 MG Oral Tablet amoxicillin 875 mg-potassium clavulanate 125 mg tablet amoxicillin 875 mg-potassium clavulanate 125 mg tablet completed amoxici llin 875 MG / clavulanate 125 MG Oral Tablet [place] ([facility]) Ketoconazole 20 MG/ML Topical Cream ketoconazole 2 % t opical cream ketoconazole 2 % topical cream completed keto conazole 20 MG/ML Topical Cream [place] ([facility]) rivaroxaban 15 MG Oral Tablet [Xarelto] Xarelto 15 mg tablet Take 1 tablet every day by oral route as directed. Xarelto 15 mg tablet Take 1 tablet every day by oral route as directed. 1 completed rivaroxaban 15 MG Oral Tablet [Xarelto] [place] ([facility]) Amoxicillin 875 MG / Clavulanate 125 MG Oral Tablet amoxicillin 875 mg-potassium clavulanate 125 mg tablet amoxicillin 875 mg-potassium clavulanate 125 mg tablet completed amoxici llin 875 MG / clavulanate 125 MG Oral Tablet [place] ([facility]) Prednisone 50 MG Oral Tablet prednisone 50 mg tablet prednisone 50 mg tablet completed prednisone 50 MG Oral Tablet [place] ([facility]) tramadol hydrochloride 50 MG Oral Tablet tramadol 50 m g tablet tramadol 50 mg tablet completed tramadol hydroc hloride 50 MG Oral Tablet [facility]) Ajovy Syringe 225 mg/1.5 mL subcutaneous [id number] completed 1.5 ML fremanezumab-vfrm 150 MG/ML Prefilled Syringe [Ajovy] [facility]) Ibuprofen 800 MG Oral Tablet ibuprofen 800 mg tablet ibuprofen 8 00 mg tablet completed ibuprofen 800 MG Oral Tablet [facility] ([facility]) Ergocalciferol 37457 UNT Oral Capsule Vi tamin D2 1,250 mcg (50,000 unit) capsule Vitamin D2 1,250 mcg (50,000 unit) capsule completed ergocalciferol 1.25 MG Oral Capsule [facility] ([facility]) Ergocalciferol 23214 UNT Oral Capsule Vi tamin D2 1,250 mcg (50,000 unit) capsule Vitamin D2 1,250 mcg (50,000 unit) capsule completed ergocalciferol 1.25 MG Oral Capsule [facility] ([facility]) Metronidazole 500 MG Oral Tablet metronidazole 500 mg tablet metronidazole 500 mg tablet completed metronidazol e 500 MG Oral Tablet [place] ([facility]) Lidocaine 40 MG/ML Topical Cream lidocaine 4 % topical cream lidocaine 4 % topical cream completed lidocain e 40 MG/ML Topical Cream [place] ([facility]) 0.5 ML Fondaparinux sodium 5 MG/ML Prefi lled Syringe fondaparinux 2.5 mg/0.5 mL subcutaneous solution syringe fondaparinux 2.5 mg/0.5 mL subcutaneous solution syringe completed 0.5 ML fondaparinux sodium 5 MG/ML Prefilled Syringe [facility] ([facility]) Clonazepam 0.5 MG Oral Tablet clonazepam 0.5 mg tablet clona zepam 0.5 mg tablet completed clonazepam 0.5 MG Oral Tablet [facility] ([facility]) Lidocaine 40 MG/ML Topical Cream lidocaine 4 % topical cream lidocaine 4 % topical cream completed lidocain e 40 MG/ML Topical Cream [facility] ([facility]) Cholecalciferol 1000 UNT Oral Tablet cho lecalciferol (vitamin D3) 25 mcg (1,000 unit) tablet Take 1 tablet every day by oral route for 30 days. cholecalciferol (vitamin D3) 25 mcg (1,000 unit) tablet Take 1 tablet every day by oral route for 30 days. 1 completed cholecalc iferol 0.025 MG Oral Tablet [facility] ([facility]) ferrous sulfate 324 mg (65 mg iron) tablet,delayed release [id number] completed ferrous sulfate 324 MG Delayed R elease Oral Tablet [facility] ([facility]) quetiapine 100 MG Oral Tablet quetiapine 100 mg tablet queti apine 100 mg tablet completed quetiapine 100 MG Oral Tablet [facility] ([facility]) Bacitracin 0.5 UNT/MG Topical Ointment b acitracin 500 unit/gram topical ointment bacitracin 500 unit/gram topical ointment completed bacitracin 0.5 UNT/MG Topical Ointment [facility] ([facility]) Lidocaine 40 MG/ML Topical Cream lidocaine 4 % topical cream lidocaine 4 % topical cream completed lidocain e 40 MG/ML Topical Cream [facility] ([facility]) topiramate 50 MG Oral Tablet topiramate 50 mg tablet topiramate 50 mg tablet completed topiramate 50 MG Oral Tablet [facility] ([facility]) Metronidazole 500 MG Oral Tablet metronidazole 500 mg tablet metronidazole 500 mg tablet completed metronidazol e 500 MG Oral Tablet [facility] ([facility]) Magnesium Oxide 400 MG Oral Tablet magne sium oxide 400 mg (241.3 mg magnesium) tablet magnesium oxide 400 mg (241.3 mg magnesium) tablet completed magnesium oxide 400 MG Oral Tablet [facility] ([facility]) Ascorbic Acid 500 MG Oral Tablet Vitamin C 500 mg tabl et Vitamin C 500 mg tablet completed ascorbic acid 50 0 MG Oral Tablet [facility] ([facility]) Aspirin 81 MG Delayed Release Oral Tablet aspirin 81 m g tablet,delayed release aspirin 81 mg tablet,delayed release c ompleted aspirin 81 MG Delayed Release Oral Tablet [facility] ([facility]) heparin sodium, porcine 5000 UNT/ML Inje ctable Solution heparin (porcine) 5,000 unit/mL injection solution heparin (porcine) 5,000 unit/mL injection solution completed heparin sodium , porcine 5000 UNT/ML Injectable Solution [facility] ([facility]) Ibuprofen 800 MG Oral Tablet ibuprofen 800 mg tablet ibuprofen 8 00 mg tablet completed ibuprofen 800 MG Oral Tablet [facility] ([facility]) Acetaminophen 325 MG / Oxycodone Hydroch loride 5 MG Oral Tablet oxycodone- acetaminophen 5 mg-325 mg tablet oxycodone-acetaminophen 5 mg-325 mg tablet completed acetaminop hen 325 MG / oxycodone hydrochloride 5 MG Oral Tablet [facility] ([facility]) Oxycodone Hydrochloride 5 MG Oral Tablet oxycodone 5 m g tablet oxycodone 5 mg tablet completed oxycodone hydro chloride 5 MG Oral Tablet [facility] ([facility]) gabapentin 600 MG Oral Tablet gabapentin 600 mg tablet gabap entin 600 mg tablet completed gabapentin 600 MG Oral Tablet [place] ([facility]) ferrous sulfate 324 mg (65 mg iron) tablet,delayed release [id number] completed ferrous sulfate 324 MG Delayed R elease Oral Tablet [place] ([facility]) Ascorbic Acid 500 MG Oral Tablet Vitamin C 500 mg tabl et Vitamin C 500 mg tablet completed ascorbic acid 50 0 MG Oral Tablet [place] ([facility]) Amoxicillin 875 MG / Clavulanate 125 MG Oral Tablet amoxicillin 875 mg-potassium clavulanate 125 mg tablet amoxicillin 875 mg-potassium clavulanate 125 mg tablet completed amoxici llin 875 MG / clavulanate 125 MG Oral Tablet [place] ([facility]) Progesterone 200 MG Oral Capsule progesterone microniz ed 200 mg capsule progesterone micronized 200 mg capsule completed progesterone 200 MG Oral Capsule [place] ([facility]) Magnesium Oxide 400 MG Oral Tablet magne sium oxide 400 mg (241.3 mg magnesium) tablet magnesium oxide 400 mg (241.3 mg magnesium) tablet completed magnesium oxide 400 MG Oral Tablet [facility] ([facility]) Nexium 24HR 20 mg tablet,delayed release [id number] completed esomeprazole 20 MG Delayed Release Oral Tablet [Nexium] [place] ([facility]) Ergocalciferol 82019 UNT Oral Capsule Vi tamin D2 1,250 mcg (50,000 unit) capsule Vitamin D2 1,250 mcg (50,000 unit) capsule completed ergocalciferol 1.25 MG Oral Capsule [place] ([facility]) Esomeprazole 20 MG Delayed Release Oral Capsule esomeprazole magnesium 20 mg capsule,delayed release esomeprazole magnesium 20 mg capsule,delayed release completed esomeprazole 2 0 MG Delayed Release Oral Capsule [place] ([facility]) topiramate 25 MG Oral Tablet topiramate 25 mg tablet topiramate 25 mg tablet completed topiramate 25 MG Oral Tablet [place] ([facility]) Acetaminophen 325 MG Oral Tablet acetaminophen 325 mg tablet acetaminophen 325 mg tablet completed acetaminophe n 325 MG Oral Tablet [place] ([facility]) Bacitracin 0.5 UNT/MG Topical Ointment b acitracin 500 unit/gram topical ointment bacitracin 500 unit/gram topical ointment completed bacitracin 0.5 UNT/MG Topical Ointment [place] ([facility]) 0.5 ML Fondaparinux sodium 5 MG/ML Prefi lled Syringe fondaparinux 2.5 mg/0.5 mL subcutaneous solution syringe fondaparinux 2.5 mg/0.5 mL subcutaneous solution syringe completed 0.5 ML fondaparinux sodium 5 MG/ML Prefilled Syringe [place] ([facility]) Levetiracetam 1000 MG Oral Tablet levetiracetam 1,000 mg tablet 1 levetiracetam 1,000 mg tablet 1 completed leve tiracetam 1000 MG Oral Tablet [place] ([facility]) Ondansetron 8 MG Disintegrating Oral Tab let ondansetron 8 mg disintegrating tablet ondansetron 8 mg disintegrating tablet completed ondansetron 8 MG Disintegrating Oral Tablet [place] ([facility]) topiramate 25 MG Oral Tablet topiramate 25 mg tablet topiramate 25 mg tablet completed topiramate 25 MG Oral Tablet [facility]) Nexium 24HR 20 mg tablet,delayed release [id number] completed esomeprazole 20 MG Delayed Release Oral Tablet [Nexium] [facility]) Ketoconazole 20 MG/ML Topical Cream ketoconazole 2 % t opical cream ketoconazole 2 % topical cream completed keto conazole 20 MG/ML Topical Cream [facility]) Prednisone 10 MG Oral Tablet prednisone 10 mg tablet prednisone 10 mg tablet completed prednisone 10 MG Oral Tablet [facility]) gabapentin 600 MG Oral Tablet gabapentin 600 mg tablet gabap entin 600 mg tablet completed gabapentin 600 MG Oral Tablet [place] ([facility]) heparin sodium, porcine 5000 UNT/ML Inje ctable Solution heparin (porcine) 5,000 unit/mL injection solution heparin (porcine) 5,000 unit/mL injection solution completed heparin sodium , porcine 5000 UNT/ML Injectable Solution [facility]) ferrous sulfate 324 mg (65 mg iron) tablet,delayed release [id number] completed ferrous sulfate 324 MG Delayed R elease Oral Tablet [facility]) Clonazepam 0.5 MG Oral Tablet clonazepam 0.5 mg tablet clona zepam 0.5 mg tablet completed clonazepam 0.5 MG Oral Tablet [place] ([facility]) Prazosin 1 MG Oral Capsule prazosin 1 mg capsule prazosin 1 mg capsule completed prazosin 1 MG Oral Capsul e [facility]) heparin sodium, porcine 5000 UNT/ML Inje ctable Solution heparin (porcine) 5,000 unit/mL injection solution heparin (porcine) 5,000 unit/mL injection solution completed heparin sodium , porcine 5000 UNT/ML Injectable Solution [place] ([facility]) buspirone hydrochloride 5 MG Oral Tablet buspirone 5 mg tablet TAKE ONE TABLET BY MOUTH TWICE A DAY buspirone 5 mg tablet TAKE ONE TABLET BY MOUTH TWICE A DAY completed buspirone hydr ochloride 5 MG Oral Tablet [facility]) Prazosin 1 MG Oral Capsule prazosin 1 mg capsule prazosin 1 mg capsule completed prazosin 1 MG Oral Capsul e [facility]) Fluconazole 150 MG Oral Tablet fluconazole 150 mg tabl et fluconazole 150 mg tablet completed fluconazole 150 MG Oral Tablet [facility]) Esomeprazole 20 MG Delayed Release Oral Capsule esomeprazole magnesium 20 mg capsule,delayed release esomeprazole magnesium 20 mg capsule,delayed release completed esomeprazole 2 0 MG Delayed Release Oral Capsule [facility]) Cephalexin 500 MG Oral Capsule cephalexin 500 mg capsu le cephalexin 500 mg capsule completed cephalexin 500 MG Oral Capsule [place] ([facility]) rivaroxaban 15 MG Oral Tablet [Xarelto] Xarelto 15 mg tablet Take 1 tablet every day by oral route as directed. Xarelto 15 mg tablet Take 1 tablet every day by oral route as directed. 1 completed rivaroxaban 15 MG Oral Tablet [Xarelto] [facility]) Ajovy Syringe 225 mg/1.5 mL subcutaneous [id number] completed 1.5 ML fremanezumab-vfrm 150 MG/ML Prefilled Syringe [Ajovy] [facility]) tramadol hydrochloride 50 MG Oral Tablet tramadol 50 m g tablet tramadol 50 mg tablet completed tramadol hydroc hloride 50 MG Oral Tablet [facility]) Fluconazole 150 MG Oral Tablet fluconazole 150 mg tabl et fluconazole 150 mg tablet completed fluconazole 150 MG Oral Tablet [facility] ([facility]) Prednisone 20 MG Oral Tablet prednisone 20 mg tablet Take 3 tablets po day 1-3, 2 tablets day 4-7, 1 tablet day 8-10 prednisone 20 mg tablet Take 3 tablets p o day 1-3, 2 tablets day 4-7, 1 tablet day 8-10 completed prednisone 20 MG Oral Tablet [facility] ([facility]) Bacitracin 0.5 UNT/MG Topical Ointment b acitracin 500 unit/gram topical ointment bacitracin 500 unit/gram topical ointment completed bacitracin 0.5 UNT/MG Topical Ointment [place] ([facility]) ferrous sulfate 324 mg (65 mg iron) tablet,delayed release [id number] completed ferrous sulfate 324 MG Delayed R elease Oral Tablet [place] ([facility]) Oxycodone Hydrochloride 5 MG Oral Tablet oxycodone 5 m g tablet oxycodone 5 mg tablet completed oxycodone hydro chloride 5 MG Oral Tablet [place] ([facility]) Cephalexin 500 MG Oral Capsule cephalexin 500 mg capsu le cephalexin 500 mg capsule completed cephalexin 500 MG Oral Capsule [place] ([facility]) Nexium 24HR 20 mg tablet,delayed release [id number] completed esomeprazole 20 MG Delayed Release Oral Tablet [Nexium] [place] ([facility]) Cephalexin 500 MG Oral Capsule cephalexin 500 mg capsu le cephalexin 500 mg capsule completed cephalexin 500 MG Oral Capsule [place] ([facility]) Aspirin 81 MG Delayed Release Oral Tablet aspirin 81 m g tablet,delayed release aspirin 81 mg tablet,delayed release c ompleted aspirin 81 MG Delayed Release Oral Tablet [facility] ([facility]) Ketoconazole 20 MG/ML Topical Cream ketoconazole 2 % t opical cream ketoconazole 2 % topical cream completed keto conazole 20 MG/ML Topical Cream [place] ([facility]) Ergocalciferol 07040 UNT Oral Capsule Vi tamin D2 1,250 mcg (50,000 unit) capsule Vitamin D2 1,250 mcg (50,000 unit) capsule completed ergocalciferol 1.25 MG Oral Capsule [facility] ([facility]) topiramate 25 MG Oral Tablet topiramate 25 mg tablet topiramate 25 mg tablet completed topiramate 25 MG Oral Tablet [facility] ([facility]) Oxycodone Hydrochloride 5 MG Oral Tablet oxycodone 5 m g tablet oxycodone 5 mg tablet completed oxycodone hydro chloride 5 MG Oral Tablet [facility] ([facility]) Prazosin 1 MG Oral Capsule prazosin 1 mg capsule prazosin 1 mg capsule completed prazosin 1 MG Oral Capsul e [facility] ([facility]) Aspirin 81 MG Delayed Release Oral Tablet aspirin 81 m g tablet,delayed release aspirin 81 mg tablet,delayed release c ompleted aspirin 81 MG Delayed Release Oral Tablet [facility] ([facility]) Metoclopramide 10 MG Oral Tablet metoclopramide 10 mg tablet metoclopramide 10 mg tablet completed metocloprami de 10 MG Oral Tablet [facility] ([facility]) Ascorbic Acid 500 MG Oral Tablet Vitamin C 500 mg tabl et Vitamin C 500 mg tablet completed ascorbic acid 50 0 MG Oral Tablet [place] ([facility]) Ondansetron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 BRAIN BRAIN STEM W/O CONTRAST MATERIAL MRI BRAIN STEM W/ O DYE 01/16/2020 12:00:00 AM [facility] MRA HEAD W/O CONTRST MATERIAL MR ANGIOGRAPHY HEAD W/O DYE 12:00:00 AM EST [facility] 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 (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 (IN OFFICE) Routine 12/31/2019 1:27 PM EST Genetic testing 12/31/2019 06:27:26 PM EST Genetic testing [facility] Genetic testing US PREG UTERUS REAL TIME W/IMAGE DCMTN TRANSVAG US OB TRANS VAGINAL [id number] Routine 12/11/2019 10:59 AM EST Early stage of 12/11/2019 03:59:10 PM EST Early stage of [facility] Early stage of Results ID Date Data Source [id number] 11/20/2020 12:00:00 PM EST [facility] Name Value Range Interpretation Code Description Data Estella rce(s) Supporting Document(s) SARS coronavirus 2 RNA Not Detected [facility] [place] This lab was ordered by [facility] and reported by [facility]. ID Date Data Source [id number] 11/17/2020 02:00:00 PM EST [facility] Name Value Range Interpretation Code Description Data Estella rce(s) Supporting Document(s) SARS coronavirus 2 RNA Not Detected [facility] [place] This lab was ordered by [facility] and reported by [facility]. ID Date Data Source [id number] 10/19/2020 09:55:00 AM EST [facility]) Name Value Range Interpretation Code Description Data Estella rce(s) Supporting Document(s) blood urea nitrogen 11 mg/dL 7-18 normal Blood Urea Nitro gen [place] ([facility]) glucose, fasting 93 mg/dL 70-100 normal Glucose, Fasting AT [facility]) creatinine for GFR 0.64 mg/dL 0.55-1.30 normal Creatinine for GF R [place] ([facility]) glomerular filtration rate > 60.0 >60 normal [place] r Filtration Rate [place] ([facility]) sodium level 141 mEq/L 136-145 normal Sodium Level JOHN (No [facility]) potassium serum 3.7 mEq/L 3.5-5.1 normal Potassium Serum [facility] ([facility]) chloride level 106 mEq/L 98-107 normal Chloride Level JOHN ([facility]) carbon dioxide level 29 mEq/L 21-32 normal Carbon Dioxide Level JOHN ([facility]) anion gap 6 mEq/L 8-16 Below low normal Anion Gap JOHN ( [facility]) calcium level 9.2 mg/dL 8.5-10.1 normal Calcium Level JOHN ( [facility]) ID Date Data Source [id number] 10/19/2020 09:55:00 AM EST JOHN ([facility]) Name Value Range Interpretation Code Description Data Estella rce(s) Supporting Document(s) white blood count 11.4 10 4.0-10.0 Above high normal White Blood Count JOHN ([facility]) red blood count 4.70 10 4.00-5.40 normal Red Blood Count [facility] ([facility]) hemoglobin 11.8 g/dL 12.0-15.5 Below low normal Hemoglobin JOHN ( [facility]) mean corpuscular hemoglobin 25.1 pg 27.0-33.0 Below low nor mal Mean Corpuscular Hemoglobin JOHN ([facility]) hematocrit 38.5 % 36.0-47.0 normal Hematocrit JOHN ([facility]) mean corpuscular volume 81.9 fL 80.0-96.0 normal Mean Corpusc ular Volume JOHN ([facility]) red cell distribution width 13.7 % 11.5-14.5 normal Red Cell Distribution Width JOHN ([facility]) mean corpuscular HGB conc 30.6 g/dL 32.0-36.5 Below low tigist l Mean Corpuscular HGB Conc JOHN ([facility]) platelet count, automated 293 10 150-450 normal Platelet C ount, Automated JOHN ([facility]) nucleated red blood cell % 0.0 % 0-0 normal Nucleated Red Blood Cell % JOHN ([facility]) ID Date Data Source [id number] 10/12/2020 12:09:27 PM EST [facility] Name Value Range Interpretation Code Description Data Estella rce(s) Supporting Document(s) Progress Note [facility] NENNBs9uCiYSMrXw59/PDZhyAKOri4CbYTxuQAm4DVpgKDPuA3TvIVM5oA2yEBS8LJuDDzTrKcVxToSn lbm [file] YhXtGwLvPTWiVEXbLXR1VBD9MBTaGzKbSZ4VSp7BUzF2MDO7sWVqSl1CGVatBQIZSgPqQW5OXYp= ID Date Data Source [id number] 10/04/2020 11:52:46 AM [facility] Name Value Range Interpretation Code Description Data Estella rce(s) Supporting Document(s) Progress Note [facility] SJJWKn3dKkBLDiXl08/QDZnwASYtj4DgGUkoHPj7SUgeGCYzU2ZiVRV9bH2cPWE8EIgPVsGrWlGtKIOy lbm [file] AgICAgICAgICAgICAgICAgICAgICAgICAgICAgICAgICAgICAgICAgICAgICAgICAgICAgICAgICAgIC AgICAgICAgICAgICAgICANCiAgICAgICAgICAgICAgICAgICAgICAgICAgICAgICAgICAgICAgICAgIC AgICAgICAgICAgICAgICAgICAgICAgICAgICAgICAg ICAgICAgICAgICAgICAgICAgICAgICAgICANCiAgICAgICAgICAgICAgICAgICAgICAgICAgICAgICAg ICAgICAgICAgICAgICAgICAgICAgICAgICAgICAgICAgICAgICAgICAgICAgICAgICAgICAgICAgICAg ICAgICAgICANCiAgICAgICAgICAgICAgICAgICAgIC AgICAgICAgICAgICAgICAgICAgICAgICAgICAgICAgICAgICAgICAgICAgICAgICAgICAgICAgICAgIC AgICAgICAgICAgICAgICAgICANCiAgICAgICAgICAgICAgICAgICAgICAgICAgICAgICAgICAgICAgIC AgICAgICAgICAgICAgICAgICAgICAgICAgICAgICAg ICAgICAgICAgICAgICAgICAgICAgICAgICAgICANCiAgICAgICAgICAgICAgICAgICAgICAgICAgICAg ICAgICAgICAgICAgICAgICAgICAgICAgICAgICAgICAgICAgICAgICAgICAgICAgICAgICAgICAgICAg ICAgICAgICAgICANCiAgICAgICAgICAgICAgICAgIC AgICAgICAgICAgICAgICAgICAgICAgICAgICAgICAgICAgICAgICAgICAgICAgICAgICAgICAgICAgIC AgICAgICAgICAgICAgICAgICAgICANCiAgICAgICAgICAgICAgICAgICAgICAgICAgICAgICAgICAgIC AgICAgICAgICAgICAgICAgICAgICAgICAgICAgICAg ICAgICAgICAgICAgICAgICAgICAgICAgICAgICAgICANCiAgICAgICAgICAgICAgICAgICAgICAgICAg ICAgICAgICAgICAgICAgICAgICAgICAgICAgICAgICAgICAgICAgICAgICAgICAgICAgICAgICAgICAg ICAgICAgICAgICAgICANCiAgICAgICAgICAgICAgIC AgICAgICAgICAgICAgICAgICAgICAgICAgICAgICAgICAgICAgICAgICAgICAgICAgICAgICAgICAgIC AgICAgICAgICAgICAgICAgICAgICAgICANCjw/sHCzI6offVRwoxD7M1xcVt4TRx5ZEA2uh2YfFLFlFU mdjtFlLyqZKtWzEUCjYqtMIox1NQvdQB3GbZSmP2Ig U1TsXRhoOC6CGEInYHSvoTFtEIVaCPJyCzA4RAGjJDepHJ5YdNAxCYwhSCIwMRQxPyVcPLOtXDNoADXw QI7LVSEsF683hiNbJo6RRr1MUxVzME9ciz7OQvScGXNoLflWFea6XLmjGB5QnKCoiNSgOWHmWTIMReJd F3ixw7XiAyJhHZGDCZzfRC4Dc5FurSJtDJu+Pg0KZW 5eq5UfDJguSJBeBC3czz4DAEgVFeIlY5SlaNczDKXba0luOUPxPV1bqVIfVEW2ZWbhnjd6uZDRGD6xMZ QNMDVopFGnOD1fEn1fDUDkIIQuSvDvSVWHLR5RRXPvIGYbaYCeKPXfUDEXWN3XMMniRTI3AUSgjuNapH VnZCdxGD4VKVFpyjTiUnAxZTRCZWv+Gn2SWS8fz0Px ZBdyQYSlPY3sdi3ERYuYTbFeG9D8xXWpQ7M5NIahWw5RRTQvJVUgTkRsQZKLKXbpYF5OMP7ywmT9OW8H qRHlIPSxLUWyyLVoWNv7V64pxYEeSFzrKR9XKJP+Penny+Ev1FYMCcJUQrDJYcEqQlHOCASfMzP6MhO3ME x7XdR4XoXN47uQohbzXnJHtfVH8JYA3uCAVhORIQTN 2JdSHvoE6vztYyDrJsWCMRXiNkJ08jqJGvBFUpMKPfKUIhFm0SWAYpK9OpeaRmqYwhgkBgJSLlIKOXVB 5GHDgtwnFkfAIwnSqpFP80hIayQZ0KJg2UDvFkUD9amr3OvTOgEo4SACDfWg0CPJObOTRlKBPtWLI7RF VtRgWsEIuuPIVoQJPwVWB5JJGrHAEiVT5HJmNsQEPa NvT0CrFxUHJqVUXehq9AZHPtRFYrZiG4NIVwCFOfEXVxESzjGUYfNYIwFFJ0JUJdRBZpOV1XYsKrEAPv IHQ8QfZlZRKmDMXxrf6AUMTeVYFhGTDsWLPqSLOcJNLnDNgvNUAbJJM3OtI0XXWiIYPvIK9AKnRjUZNk ZMc2ZsWmYJHyCSLmdf2CRIHoIOWeNQO5VlYyKOMdBP VgILlnWBLoUPLkGkTkUIBzDKAkQR5QDdKsVSZoIQA2RnGeTAZvFCWrlm2ZGUItQBLuBWolRiZbVTXtZI UhREolESYyFYKzITNvLCUyHKDtND3GJwYbJHFtICLuOHmlRRQxAVIizs4HLRJaMROfYuM6OQXoTJQxWI WcCFteQFJvWDCzQVM2RMIvGNOeLT9JPiTqJRFlKlC5 HwkkBBUzWXPapp7RLSZuDBCoJQZnJDLcXSWwWXVrNQiuGEOvXTC6JUPlQQFlZMFmUV3EYbTeWALwPiK3 NgRhYHZfLZOwwn1FCKYdNEQeTSqxFIXcEECvNHJrBRsmOFFjQJC8LoQeZLZjLVIcJZ4SXxNaJURnQss4 BwLsLSFpQWStya0NJNEdAVHqFvykKWJgBJYtBCEjVS mfWXKpQQU8OWl4SBUtVBHlJO9ZVhVlOAdsIVLTFir8NDxjF9f5ZNWiCd1VR0Wdm3QaNdQuRRCGRWkeTR 2jsvDsLYGdKe3TK0cDAjybHwH4DLErLoa7RaTuQyU4IYQkBUJtMpFdVROeAGSgRV1rTBXgEcU8EvPvYJ u2JQNpGyLaIVJtAAQ0QOA8QZS6TEZeIwPeTY6XId4MPgI3OUY9aEGiJr3LUolrJiQRCnJsMR6OCTy= ID Date Data Source [id number] 09/25/2020 12:00:00 AM [facility] Name Value Range Interpretation Code Description Data Estella rce(s) Supporting Document(s) SARS coronavirus 2 RNA panel N [facility] This lab was ordered by 8-1400 and repor jina by [facility]. ID Date Data Source [id number] 09/23/2020 12:00:00 AM [facility] Name Value Range Interpretation Code Description Data Estella rce(s) Supporting Document(s) SARS coronavirus 2 RNA panel N [facility] This lab was ordered by [facility] VIV[facility] E ([facility]) and reported by [facility]. ID Date Data Source [id number] 09/17/2020 03:06:00 AM EST [place] ([facility]) Name Value Range Interpretation Code Description Data Estella rce(s) Supporting Document(s) appearance, urine rfx clear clear normal Appearance, Ur ine Rfx [place] ([facility]) color, urine rfx straw yellow normal Color, Urine Rfx AT [facility] ([facility]) pH,urine rfx 7.0 units 5.0-9.0 normal pH,urine Rfx JOHN (No [facility]) specific gravity ur auto rfx 1.002-1.035 normal Specif ic [place] Ur Auto Rfx [place] ([facility]) protein, urine auto rfx negative negative normal Protein, Uri ne Auto Rfx [place] ([facility]) urobilinogen, urine auto rfx 0.2 mg/dL 0.0-2.0 normal Urobilinogen, Urine Auto Rfx [place] ([facility]) ketone, urine auto rfx negative negative normal Ketone, Urine Auto Rfx [place] ([facility]) bilirubin, urine auto rfx negative negative normal Bilirubin, Urine Auto Rfx [place] ([facility]) glucose, urine (UA) auto rfx negative negative normal Glucose, Urine (UA) Auto Rfx [place] ([facility]) leukocyte esterase ur auto rfx negative negative normal Leukocyte Esterase Ur Auto Rfx JOHN ([facility]) nitrite, urine auto rfx negative negative normal Nitrite, Uri ne Auto Rfx [place] ([facility]) blood, urine blood rfx negative negative normal Blood, Urine Blood Rfx [place] ([facility]) WBC, urine auto rfx 1 /hpf 0-3 normal WBC, Urine Auto Rfx [place] ([facility]) bacteria, urine auto rfx negative negative normal Bacteria, U rine Auto Rfx [place] ([facility]) RBC, urine auto rfx 1 /hpf 0-3 normal RBC, Urine Auto Rfx [place] ([facility]) hyaline cast, urine auto rfx 0 /lpf 0-1 normal Hyaline Cast, Urine Auto Rfx [place] ([facility]) squam epithelial cell ur aurfx 2 /hpf 0-6 normal Squam Epithelial Cell Ur Aurfx [place] ([facility]) ID Date Data Source [id number] 09/17/2020 03:06:00 AM EST [place] ([facility]) Name Value Range Interpretation Code Description Data Estella rce(s) Supporting Document(s) appearance, urine rfx clear clear normal Appearance, Ur ine Rfx [place] ([facility]) color, urine rfx straw yellow normal Color, Urine Rfx AT [place] ([facility]) pH,urine rfx 7.0 units 5.0-9.0 normal pH,urine Rfx [place] (No [facility]) protein, urine auto rfx negative negative normal Protein, Uri ne Auto Rfx [place] ([facility]) specific gravity ur auto rfx 1.002-1.035 normal Specif ic [place] Ur Auto Rfx [place] ([facility]) ketone, urine auto rfx negative negative normal Ketone, Urine Auto Rfx [place] ([facility]) urobilinogen, urine auto rfx 0.2 mg/dL 0.0-2.0 normal Urobilinogen, Urine Auto Rfx [place] ([facility]) glucose, urine (UA) auto rfx negative negative normal Glucose, Urine (UA) Auto Rfx [facility] ([facility]) bilirubin, urine auto rfx negative negative normal Bilirubin, Urine Auto Rfx [facility] ([facility]) nitrite, urine auto rfx negative negative normal Nitrite, Uri ne Auto Rfx JOHN ([facility]) blood, urine blood rfx negative negative normal Blood, Urine Blood Rfx [place] ([facility]) leukocyte esterase ur auto rfx negative negative normal Leukocyte Esterase Ur Auto Rfx JOHN ([facility]) WBC, urine auto rfx 1 /hpf 0-3 normal WBC, Urine Auto Rfx JOHN ([facility]) RBC, urine auto rfx 1 /hpf 0-3 normal RBC, Urine Auto Rfx [place] ([facility]) bacteria, urine auto rfx negative negative normal Bacteria, U rine Auto Rfx [place] ([facility]) squam epithelial cell ur aurfx 2 /hpf 0-6 normal Squam Epithelial Cell Ur Aurfx [place] ([facility]) hyaline cast, urine auto rfx 0 /lpf 0-1 normal Hyaline Cast, Urine Auto Rfx [place] ([facility]) ID Date Data Source [id number] 09/17/2020 03:06:00 AM EST [place] ([facility]) Name Value Range Interpretation Code Description Data Estella rce(s) Supporting Document(s) appearance, urine rfx clear clear normal Appearance, Ur ine Rfx [place] ([facility]) pH,urine rfx 7.0 units 5.0-9.0 normal pH,urine Rfx JOHN (No [facility]) color, urine rfx straw yellow normal Color, Urine Rfx [place] ([facility]) protein, urine auto rfx negative negative normal Protein, Uri ne Auto Rfx [place] ([facility]) specific gravity ur auto rfx 1.002-1.035 normal Specif ic [place] Ur Auto Rfx [place] ([facility]) ketone, urine auto rfx negative negative normal Ketone, Urine Auto Rfx [place] ([facility]) glucose, urine (UA) auto rfx negative negative normal Glucose, Urine (UA) Auto Rfx JOHN ([facility]) leukocyte esterase ur auto rfx negative negative normal Leukocyte Esterase Ur Auto Rfx [place] ([facility]) urobilinogen, urine auto rfx 0.2 mg/dL 0.0-2.0 normal Urobilinogen, Urine Auto Rfx [place] ([facility]) bilirubin, urine auto rfx negative negative normal Bilirubin, Urine Auto Rfx [place] ([facility]) nitrite, urine auto rfx negative negative normal Nitrite, Uri ne Auto Rfx [place] ([facility]) blood, urine blood rfx negative negative normal Blood, Urine Blood Rfx [place] ([facility]) RBC, urine auto rfx 1 /hpf 0-3 normal RBC, Urine Auto Rfx [place] ([facility]) WBC, urine auto rfx 1 /hpf 0-3 normal WBC, Urine Auto Rfx [place] ([facility]) squam epithelial cell ur aurfx 2 /hpf 0-6 normal Squam Epithelial Cell Ur Aurfx [place] ([facility]) bacteria, urine auto rfx negative negative normal Bacteria, U rine Auto Rfx [place] ([facility]) hyaline cast, urine auto rfx 0 /lpf 0-1 normal Hyaline Cast, Urine Auto Rfx [place] ([facility]) ID Date Data Source [id number] 09/17/2020 03:06:00 AM EST [place] ([facility]) Name Value Range Interpretation Code Description Data Estella rce(s) Supporting Document(s) pH,urine rfx 7.0 units 5.0-9.0 normal pH,urine Rfx [place] ([facility] appearance, urine rfx clear clear normal Appearance, Ur ine Rfx [place] ([facility]) color, urine rfx straw yellow normal Color, Urine Rfx [place] ([facility]) specific gravity ur auto rfx 1.002-1.035 normal Specif ic [place] Ur Auto Rfx [place] ([facility]) protein, urine auto rfx negative negative normal Protein, Uri ne Auto Rfx [place] ([facility]) urobilinogen, urine auto rfx 0.2 mg/dL 0.0-2.0 normal Urobilinogen, Urine Auto Rfx JOHN ([facility]) ketone, urine auto rfx negative negative normal Ketone, Urine Auto Rfx JOHN ([facility]) glucose, urine (UA) auto rfx negative negative normal Glucose, Urine (UA) Auto Rfx JOHN ([facility]) leukocyte esterase ur auto rfx negative negative normal Leukocyte Esterase Ur Auto Rfx JOHN ([facility]) bilirubin, urine auto rfx negative negative normal Bilirubin, Urine Auto Rfx JOHN ([facility]) blood, urine blood rfx negative negative normal Blood, Urine Blood Rfx [place] ([facility]) nitrite, urine auto rfx negative negative normal Nitrite, Uri ne Auto Rfx [place] ([facility]) bacteria, urine auto rfx negative negative normal Bacteria, U rine Auto Rfx [place] ([facility]) RBC, urine auto rfx 1 /hpf 0-3 normal RBC, Urine Auto Rfx JOHN ([facility]) WBC, urine auto rfx 1 /hpf 0-3 normal WBC, Urine Auto Rfx JOHN ([facility]) hyaline cast, urine auto rfx 0 /lpf 0-1 normal Hyaline Cast, Urine Auto Rfx JOHN ([facility]) squam epithelial cell ur aurfx 2 /hpf 0-6 normal Squam Epithelial Cell Ur Aurfx JOHN ([facility]) ID Date Data Source [id number] 09/17/2020 01:48:00 AM EST [place] ([facility]) Name Value Range Interpretation Code Description Data Estella rce(s) Supporting Document(s) bedside glucose 137 mg/dL 70-105 Above high normal Bedside Gluco se [place] ([facility]) ID Date Data Source [id number] 09/17/2020 01:48:00 AM EST [place] ([facility]) Name Value Range Interpretation Code Description Data Estella rce(s) Supporting Document(s) bedside glucose 137 mg/dL 70-105 Above high normal Bedside Gluco se JOHN ([facility]) ID Date Data Source [id number] 09/17/2020 01:48:00 AM EST JOHN ([facility]) Name Value Range Interpretation Code Description Data Estella rce(s) Supporting Document(s) bedside glucose 137 mg/dL 70-105 Above high normal Bedside Gluco se JOHN ([facility]) ID Date Data Source [id number] 09/17/2020 01:48:00 AM EST JOHN ([facility]) Name Value Range Interpretation Code Description Data Estella rce(s) Supporting Document(s) bedside glucose 137 mg/dL 70-105 Above high normal Bedside Gluco se [place] ([facility]) ID Date Data Source [id number] 09/17/2020 01:39:00 AM EST JOHN [facility]) Name Value Range Interpretation Code Description Data Estella rce(s) Supporting Document(s) levetiracetam (keppra) <1.0 10.0-40.0 Below low normal Levetir acetam (Keppra) [place] ([facility]) ID Date Data Source [id number] 09/17/2020 01:39:00 [facility] Name Value Range Interpretation Code Description Data Estella rce(s) Supporting Document(s) HCG, serum qualitative negative negative normal HCG, Serum Qu alitative [facility] ID Date Data Source [id number] 09/17/2020 01:39:00 AM EST [facility] Name Value Range Interpretation Code Description Data Estella rce(s) Supporting Document(s) thyroid stimulating hormone 1.520 uIU/mL 0.358-3.740 normal Thyroid Stimulating Hormone [facility]) ID Date Data Source [id number] 09/17/2020 01:39:00 AM EST JOHN ([facility]) Name Value Range Interpretation Code Description Data Estella rce(s) Supporting Document(s) glucose, fasting 133 mg/dL 70-100 Above high normal Glucose, Fas ting JOHN ([facility]) blood urea nitrogen 15 mg/dL 7-18 normal Blood Urea Nitro gen JOHN ([facility]) glomerular filtration rate > 60.0 >60 normal [place] r Filtration Rate JOHN ([facility]) creatinine for GFR 0.73 mg/dL 0.55-1.30 normal Creatinine for GF R JOHN ([facility]) potassium serum 3.8 mEq/L 3.5-5.1 normal Potassium Serum [place] ([facility]) sodium level 137 mEq/L 136-145 normal Sodium Level JOHN (No [facility]) chloride level 102 mEq/L 98-107 normal Chloride Level JOHN ([facility]) calcium level 9.6 mg/dL 8.5-10.1 normal Calcium Level [place] ( [facility]) carbon dioxide level 27 mEq/L 21-32 normal Carbon Dioxide Level JOHN ([facility]) anion gap 8 mEq/L 8-16 normal Anion Gap [place] ([facility]) ID Date Data Source [id number] 09/17/2020 01:39:00 AM EST JOHN ([facility]) Name Value Range Interpretation Code Description Data Estella rce(s) Supporting Document(s) white blood count 14.6 10 4.0-10.0 Above high normal White Blood Count JOHN ([facility]) red blood count 4.59 10 4.00-5.40 normal Red Blood Count [place] ([facility]) hemoglobin 11.4 g/dL 12.0-15.5 Below low normal Hemoglobin JOHN ( [facility]) mean corpuscular volume 82.4 fL 80.0-96.0 normal Mean Corpusc ular Volume JOHN ([facility]) hematocrit 37.8 % 36.0-47.0 normal Hematocrit JOHN ([facility]) mean corpuscular hemoglobin 24.8 pg 27.0-33.0 Below low nor mal Mean Corpuscular Hemoglobin JOHN ([facility]) red cell distribution width 14.4 % 11.5-14.5 normal Red Cell Distribution Width JOHN ([facility]) mean corpuscular HGB conc 30.2 g/dL 32.0-36.5 Below low tigist l Mean Corpuscular HGB Conc JOHN ([facility]) platelet count, automated 368 10 150-450 normal Platelet C ount, Automated JOHN ([facility]) lymph % 11.4 % 24.0-44.0 Below low normal Lymph % JOHN ( [facility]) neutrophils % 85.4 % 36.0-66.0 Above high normal [facility]rophils % [facility] baso % 0.4 % 0.0-1.0 normal Baso % JOHN ([facility]) mono % 1.3 % 0.0-5.0 normal [place] % JOHN ([facility]) eos % 0.7 % 0.0-3.0 normal Eos % JOHN ([facility]) nucleated red blood cell % 0.0 % 0-0 normal Nucleated Red Blood Cell % JOHN ([facility]) immature granulocyte % 0.8 % 0-3.0 normal Immature Gran ulocyte % JOHN ([facility]) neutrophils # 12.5 10 1.5-8.5 Above high normal Neutrophils # A [place] ([facility]) mono # 0.2 10 0.0-0.8 normal Crisp # JOHN ([facility]) eos # 0.1 10 0.0-0.5 normal Eos # JOHN ([facility]) lymph # 1.7 10 1.5-5.0 normal Lymph # JOHN ([facility]) baso # 0.1 10 0.0-0.2 normal Baso # JOHN ([facility]) ID Date Data Source [id number] 09/17/2020 01:39:00 AM EST JOHN ([facility]) Name Value Range Interpretation Code Description Data Estella rce(s) Supporting Document(s) levetiracetam (keppra) <1.0 10.0-40.0 Below low normal Levetir acetam (Keppra) JOHN ([facility]) ID Date Data Source [id number] 09/17/2020 01:39:00 AM EST JOHN ([facility]) Name Value Range Interpretation Code Description Data Estella rce(s) Supporting Document(s) HCG, serum qualitative negative negative normal HCG, Serum Qu alitative JOHN ([facility]) ID Date Data Source [id number] 09/17/2020 01:39:00 AM EST [place] ([facility]) Name Value Range Interpretation Code Description Data Estella rce(s) Supporting Document(s) thyroid stimulating hormone 1.520 uIU/mL 0.358-3.740 normal Thyroid Stimulating Hormone [place] ([facility]) ID Date Data Source [id number] 09/17/2020 01:39:00 AM EST JOHN ([facility]) Name Value Range Interpretation Code Description Data Estella rce(s) Supporting Document(s) glucose, fasting 133 mg/dL 70-100 Above high normal Glucose, Fas ting [place] ([facility]) blood urea nitrogen 15 mg/dL 7-18 normal Blood Urea Nitro gen JOHN ([facility]) glomerular filtration rate > 60.0 >60 normal Glomerula r Filtration Rate [place] ([facility]) creatinine for GFR 0.73 mg/dL 0.55-1.30 normal Creatinine for GF R [place] ([facility]) sodium level 137 mEq/L 136-145 normal Sodium Level JOHN (No [facility]) potassium serum 3.8 mEq/L 3.5-5.1 normal Potassium Serum [place] NA ([facility]) chloride level 102 mEq/L 98-107 normal Chloride Level [place] ([facility]) carbon dioxide level 27 mEq/L 21-32 normal Carbon Dioxide Level JOHN ([facility]) calcium level 9.6 mg/dL 8.5-10.1 normal Calcium Level JOHN ( [facility]) anion gap 8 mEq/L 8-16 normal Anion Gap JOHN ([facility]) ID Date Data Source [id number] 09/17/2020 01:39:00 AM EST [place] ([facility]) Name Value Range Interpretation Code Description Data Estella rce(s) Supporting Document(s) white blood count 14.6 10 4.0-10.0 Above high normal White Blood Count [place] ([facility]) hemoglobin 11.4 g/dL 12.0-15.5 Below low normal Hemoglobin JOHN ( [facility]) red blood count 4.59 10 4.00-5.40 normal Red Blood Count [place] ([facility]) hematocrit 37.8 % 36.0-47.0 normal Hematocrit JOHN ([facility]) mean corpuscular hemoglobin 24.8 pg 27.0-33.0 Below low nor mal Mean Corpuscular Hemoglobin JOHN ([facility]) mean corpuscular volume 82.4 fL 80.0-96.0 normal Mean Corpusc ular Volume JOHN ([facility]) mean corpuscular HGB conc 30.2 g/dL 32.0-36.5 Below low tigist l Mean Corpuscular HGB Conc JOHN ([facility]) red cell distribution width 14.4 % 11.5-14.5 normal Red Cell Distribution Width JOHN ([facility]) neutrophils % 85.4 % 36.0-66.0 Above high normal Neutrophils % A [place] ([facility]) platelet count, automated 368 10 150-450 normal Platelet C ount, Automated JOHN ([facility]) lymph % 11.4 % 24.0-44.0 Below low normal Lymph % JOHN ( [facility]) eos % 0.7 % 0.0-3.0 normal Eos % JOHN ([facility]) mono % 1.3 % 0.0-5.0 normal Crisp % JOHN ([facility]) immature granulocyte % 0.8 % 0-3.0 normal Immature Gran ulocyte % JOHN ([facility]) baso % 0.4 % 0.0-1.0 normal Baso % JOHN ([facility]) neutrophils # 12.5 10 1.5-8.5 Above high normal Neutrophils # A [place] ([facility]) nucleated red blood cell % 0.0 % 0-0 normal Nucleated Red Blood Cell % JOHN ([facility]) lymph # 1.7 10 1.5-5.0 normal Lymph # JOHN ([facility]) eos # 0.1 10 0.0-0.5 normal Eos # JOHN ([facility]) mono # 0.2 10 0.0-0.8 normal Crisp # JOHN ([facility]) baso # 0.1 10 0.0-0.2 normal Baso # JOHN ([facility]) ID Date Data Source [id number] 09/17/2020 01:39:00 AM EST [place] ([facility]) Name Value Range Interpretation Code Description Data Estella rce(s) Supporting Document(s) levetiracetam (keppra) <1.0 10.0-40.0 Below low normal Levetir acetam (Keppra) JOHN ([facility]) ID Date Data Source [id number] 09/17/2020 01:39:00 AM EST [place] ([facility]) Name Value Range Interpretation Code Description Data Estella rce(s) Supporting Document(s) HCG, serum qualitative negative negative normal HCG, Serum Qu alitative [place] ([facility]) ID Date Data Source [id number] 09/17/2020 01:39:00 AM EST [place] ([facility]) Name Value Range Interpretation Code Description Data Estella rce(s) Supporting Document(s) thyroid stimulating hormone 1.520 uIU/mL 0.358-3.740 normal Thyroid Stimulating Hormone JOHN ([facility]) ID Date Data Source [id number] 09/17/2020 01:39:00 AM EST [place] ([facility]) Name Value Range Interpretation Code Description Data Estella rce(s) Supporting Document(s) glucose, fasting 133 mg/dL 70-100 Above high normal Glucose, Fas ting JOHN ([facility]) blood urea nitrogen 15 mg/dL 7-18 normal Blood Urea Nitro gen JOHN ([facility]) creatinine for GFR 0.73 mg/dL 0.55-1.30 normal Creatinine for GF R JOHN ([facility]) potassium serum 3.8 mEq/L 3.5-5.1 normal Potassium Serum [place] NA ([facility]) sodium level 137 mEq/L 136-145 normal Sodium Level JOHN (No [facility]) chloride level 102 mEq/L 98-107 normal Chloride Level JOHN ([facility]) glomerular filtration rate > 60.0 >60 normal Glomerula r Filtration Rate JOHN ([facility]) calcium level 9.6 mg/dL 8.5-10.1 normal Calcium Level JOHN ( [facility]) carbon dioxide level 27 mEq/L 21-32 normal Carbon Dioxide Level JOHN ([facility]) anion gap 8 mEq/L 8-16 normal Anion Gap JOHN ([facility]) ID Date Data Source [id number] 09/17/2020 01:39:00 AM EST JOHN ([facility]) Name Value Range Interpretation Code Description Data Estella rce(s) Supporting Document(s) white blood count 14.6 10 4.0-10.0 Above high normal White Blood Count JOHN ([facility]) red blood count 4.59 10 4.00-5.40 normal Red Blood Count [place] ([facility]) hemoglobin 11.4 g/dL 12.0-15.5 Below low normal Hemoglobin JOHN ( [facility]) mean corpuscular volume 82.4 fL 80.0-96.0 normal Mean Corpusc ular Volume JOHN ([facility]) hematocrit 37.8 % 36.0-47.0 normal Hematocrit JOHN ([facility]) mean corpuscular HGB conc 30.2 g/dL 32.0-36.5 Below low tigist l Mean Corpuscular HGB Conc JOHN ([facility]) mean corpuscular hemoglobin 24.8 pg 27.0-33.0 Below low nor mal Mean Corpuscular Hemoglobin JOHN ([facility]) red cell distribution width 14.4 % 11.5-14.5 normal Red Cell Distribution Width JOHN ([facility]) platelet count, automated 368 10 150-450 normal Platelet C ount, Automated JOHN ([facility]) lymph % 11.4 % 24.0-44.0 Below low normal Lymph % JOHN ( [facility]) neutrophils % 85.4 % 36.0-66.0 Above high normal Neutrophils % A [place] ([facility]) baso % 0.4 % 0.0-1.0 normal Baso % JOHN ([facility]) mono % 1.3 % 0.0-5.0 normal Crisp % JOHN ([facility]) eos % 0.7 % 0.0-3.0 normal Eos % JOHN ([facility]) immature granulocyte % 0.8 % 0-3.0 normal Immature Gran ulocyte % JOHN ([facility]) nucleated red blood cell % 0.0 % 0-0 normal Nucleated Red Blood Cell % JOHN ([facility]) neutrophils # 12.5 10 1.5-8.5 Above high normal Neutrophils # A [place] ([facility]) mono # 0.2 10 0.0-0.8 normal Crisp # JOHN ([facility]) lymph # 1.7 10 1.5-5.0 normal Lymph # JOHN ([facility]) eos # 0.1 10 0.0-0.5 normal Eos # JOHN ([facility]) baso # 0.1 10 0.0-0.2 normal Baso # JOHN ([facility]) ID Date Data Source [id number] 09/17/2020 01:39:00 AM EST [place] ([facility]) Name Value Range Interpretation Code Description Data Estella rce(s) Supporting Document(s) levetiracetam (keppra) <1.0 10.0-40.0 Below low normal Levetir acetam (Keppra) JOHN ([facility]) ID Date Data Source [id number] 09/17/2020 01:39:00 AM EST [place] ([facility]) Name Value Range Interpretation Code Description Data Estella rce(s) Supporting Document(s) HCG, serum qualitative negative negative normal HCG, Serum Qu alitative JOHN ([facility]) ID Date Data Source [id number] 09/17/2020 01:39:00 AM EST [place] ([facility]) Name Value Range Interpretation Code Description Data Estella rce(s) Supporting Document(s) thyroid stimulating hormone 1.520 uIU/mL 0.358-3.740 normal Thyroid Stimulating Hormone [place] ([facility]) ID Date Data Source [id number] 09/17/2020 01:39:00 AM EST JOHN ([facility]) Name Value Range Interpretation Code Description Data Estella rce(s) Supporting Document(s) glucose, fasting 133 mg/dL 70-100 Above high normal Glucose, Fas ting JOHN ([facility]) blood urea nitrogen 15 mg/dL 7-18 normal Blood Urea Nitro gen JOHN ([facility]) creatinine for GFR 0.73 mg/dL 0.55-1.30 normal Creatinine for GF R JOHN ([facility]) sodium level 137 mEq/L 136-145 normal Sodium Level JOHN (No [facility]) potassium serum 3.8 mEq/L 3.5-5.1 normal Potassium Serum [place] NA ([facility]) glomerular filtration rate > 60.0 >60 normal Glomerula r Filtration Rate JOHN ([facility]) carbon dioxide level 27 mEq/L 21-32 normal Carbon Dioxide Level JOHN ([facility]) anion gap 8 mEq/L 8-16 normal Anion Gap JOHN ([facility]) chloride level 102 mEq/L 98-107 normal Chloride Level JOHN ([facility]) calcium level 9.6 mg/dL 8.5-10.1 normal Calcium Level JOHN ( [facility]) ID Date Data Source [id number] 09/17/2020 01:39:00 AM EST JOHN ([facility]) Name Value Range Interpretation Code Description Data Estella rce(s) Supporting Document(s) white blood count 14.6 10 4.0-10.0 Above high normal White Blood Count [place] ([facility]) red blood count 4.59 10 4.00-5.40 normal Red Blood Count [facility] hemoglobin 11.4 g/dL 12.0-15.5 Below low normal Hemoglobin JOHN ( [facility]) hematocrit 37.8 % 36.0-47.0 normal Hematocrit JOHN ([facility]) mean corpuscular volume 82.4 fL 80.0-96.0 normal Mean Corpusc ular Volume JOHN ([facility]) mean corpuscular HGB conc 30.2 g/dL 32.0-36.5 Below low tigist l Mean Corpuscular HGB Conc JOHN ([facility]) mean corpuscular hemoglobin 24.8 pg 27.0-33.0 Below low nor mal Mean Corpuscular Hemoglobin JOHN ([facility]) platelet count, automated 368 10 150-450 normal Platelet C ount, Automated JOHN ([facility]) red cell distribution width 14.4 % 11.5-14.5 normal Red Cell Distribution Width JOHN ([facility]) neutrophils % 85.4 % 36.0-66.0 Above high normal Neutrophils % A [place] ([facility]) mono % 1.3 % 0.0-5.0 normal Crisp % JOHN ([facility]) lymph % 11.4 % 24.0-44.0 Below low normal Lymph % JOHN ( [facility]) baso % 0.4 % 0.0-1.0 normal Baso % JOHN ([facility]) eos % 0.7 % 0.0-3.0 normal Eos % JOHN ([facility]) immature granulocyte % 0.8 % 0-3.0 normal Immature Gran ulocyte % JOHN ([facility]) nucleated red blood cell % 0.0 % 0-0 normal Nucleated Red Blood Cell % JOHN ([facility]) neutrophils # 12.5 10 1.5-8.5 Above high normal Neutrophils # A THENA ([facility]) lymph # 1.7 10 1.5-5.0 normal Lymph # JOHN ([facility]) baso # 0.1 10 0.0-0.2 normal Baso # JOHN ([facility]) eos # 0.1 10 0.0-0.5 normal Eos # JOHN ([facility]) mono # 0.2 10 0.0-0.8 normal Crisp # JOHN ([facility]) ID Date Data Source [id number] 09/13/2020 11:24:41 AM EST [facility] Name Value Range Interpretation Code Description Data Estella rce(s) Supporting Document(s) Progress Note [facility] [id number] [file] [id number] ID Date Data Source [id number] 09/22/2020 08:39:29 AM EST [facility], PCName: Winsome AkersDOB: 1990Provider: HusamangellaIrmaDENISSE: 09/13/2020 Reason For VisitWinsome Akers is an established patient here for follow up. Patient is unemployed. History of Present IllnessAnd follows up today for her right distal fibular fracture. She is about 4 months out from her injury. She continues to have pain. She has been out of her cam boot around the house but she presents today with this. She states she does wear it outside the house. She did not go to physical therapy as she had some other medical issues that she needed to take care of first. She presents today in a wheelchair not because of her ankle but due to lupus flare. She continues to have lateral ankle pain. Results/DataXRays were ordered, obtained and interpreted today in the office. Indication: pain/dysfunction. Side: Right Site: Ankle Views: 3 Views AP/Lateral, Mortise Fracture line is barely visible at the distal fibula. Good callus formation is noted on the lateral view. The mortise is intact without any evidence of widening. XRays were ordered, obtained and interpreted today in the office. Indication: pain/dysfunction. Side: Right Site: Foot Views: 3 Views AP/Lateral/Internal Oblique Normal: No fractures, dislocations, or other significant abnormalities. Assessment 1. Right ankle pain (719.47) (M25.571) Patient is status post minimally displaced right distal fibular fracture. Due to their condition, I am prescribing an ankle brace to provide stabilization and improve their function during ambulation and daily activities. Plan LE Ankle Lace-Up (SOS) L1902; Status:Complete; Done: 13Sep2020 Perform:SOS14 (General); Due:27Sep2020; Last Updated By:James Callejas; 09/13/2020 9:52:35 AM;Ordered; For:Right ankle pain; Ordered By:Irma Antoine;[facility] 1 (S,M,L) : 02: Small X-Ray I Ankle 2 Views Foot 3 Views (XRays were ordered, obtained and interpretedtoday in the office. Indication: pain/dysfunction.); Status:Complete; Done: 13Sep2020 Perform:SOS14 (General); Due:27Sep2020; Last Updated By:Charisse Aguilera; 09/13/2020 9:04:25 AM;Ordered; For:Right ankle pain; Ordered By:Irma Antoine;Laterality: : Right Physical Therapy (SOS) - General Treatment Treatment Status: Complete Done:13Sep2020 Ordered;For: Closed fracture of distal lateral malleolus of right ankle, initial encounter, Right ankle pain; Ordered By: Irma Antoine Performed: Due: 27Sep2020; Last Updated By: Hannah Velez; 09/13/2020 9:26:59 AMPT Protocol : Evaluate and treat as indicated, per protocol or as previously written.Duration: : Four to Six WeeksPT Frequency : Two or thr ee times a weekLaterality and Body Part : right ankle The fracture looks pretty well-healed at this time. She is wearing her cam boot which I told her that I think this is actually inhibiting her recovery. I think she needs to get out of this completely. She can wear the lace up ankle brace outside the house if she is going to be doing a lot of walking. She has yet to start physical therapy which I think would be beneficial. A new prescription was given to her today. I will have her return to the office in 6 weeks time. Work / School NoteThe percentage of temporary impairment is 0%. The patient is not working at this time. This document was dictated and electronically signed using [employer] software. A reasonable attempt at proof reading has been made to minimize errors. Please call with any questions. Signatures Electronically signed by : Irma Antoine PA-C; Sep 13 2020 9:26AM EST (Author) Electronically signed by : Richard Guerrero M.D.; Sep 15 2020 7:59AM EST Electronically signed by : SHANA Escobar; Sep 21 2020 10:19AM EST (Author) Electronically signed by : Richard Guerrero M.D.; Sep 22 2020 8:39AM EST Name Value Range Interpretation Code Description Data Estella rce(s) Supporting Document(s) ID Date Data Source [id number] 09/12/2020 12:38:00 PM EST [place] ([facility]) Name Value Range Interpretation Code Description Data Estella rce(s) Supporting Document(s) C reactive protein quantitativ 10.80 mg/dL 0.00-0.30 Above high normal C Reactive Protein Quantitativ [place] ([facility]) ID Date Data Source [id number] 09/12/2020 12:38:00 PM EST JOHN ([facility]) Name Value Range Interpretation Code Description Data Estella rce(s) Supporting Document(s) glucose, fasting 98 mg/dL 70-100 normal Glucose, Fasting AT [place] ([facility]) blood urea nitrogen 8 mg/dL 7-18 normal Blood Urea Nitro gen JOHN ([facility]) potassium serum 3.9 mEq/L 3.5-5.1 normal Potassium Serum ATHE NA ([facility]) sodium level 141 mEq/L 136-145 normal Sodium Level JOHN ([facility]) glomerular filtration rate > 60.0 >60 normal Glomerula r Filtration Rate JOHN ([facility]) creatinine for GFR 0.61 mg/dL 0.55-1.30 normal Creatinine for GF R JOHN ([facility]) chloride level 109 mEq/L 98-107 Above high normal Chloride Level JOHN ([facility]) AST/SGOT 14 U/L 7-37 normal AST/SGOT JOHN ([facility]) calcium level 9.3 mg/dL 8.5-10.1 normal Calcium Level JOHN ( [facility]) carbon dioxide level 25 mEq/L 21-32 normal Carbon Dioxide Level JOHN ([facility]) anion gap 7 mEq/L 8-16 Below low normal Anion Gap JOHN ( [facility]) ALT/SGPT 18 U/L 12-78 normal ALT/SGPT JOHN ([facility]) bilirubin,total 0.4 mg/dL 0.2-1.0 normal Bilirubin,total ATHE ([facility]) albumin 3.6 gm/dL 3.2-5.2 normal Albumin JOHN ([facility]) alkaline phosphatase 120 U/L 45-117 Above high normal Alkaline Phosphatase JOHN ([facility]) total protein 7.1 gm/dL 6.4-8.2 normal Total Protein JOHN ( [facility]) albumin/globulin ratio 1.2-2.2 Below low normal Albumin /globulin Ratio JOHN ([facility]) ID Date Data Source [id number] 09/12/2020 12:38:00 PM EST JOHN ([facility]) Name Value Range Interpretation Code Description Data Estella rce(s) Supporting Document(s) erythrocyte sedimentation rate 60 mm/HR 0-20 Above high normal Erythrocyte Sedimentation Rate JOHN ([facility]) ID Date Data Source [id number] 09/12/2020 12:38:00 PM EST [place] ([facility]) Name Value Range Interpretation Code Description Data Estella rce(s) Supporting Document(s) white blood count 12.8 10 4.0-10.0 Above high normal White Blood Count JOHN ([facility]) mean corpuscular volume 82.2 fL 80.0-96.0 normal Mean Corpusc ular Volume JOHN ([facility]) hematocrit 37.5 % 36.0-47.0 normal Hematocrit JOHN ([facility]) hemoglobin 11.4 g/dL 12.0-15.5 Below low normal Hemoglobin JOHN ( [facility]) red blood count 4.56 10 4.00-5.40 normal Red Blood Count ATHE NA ([facility]) mean corpuscular HGB conc 30.4 g/dL 32.0-36.5 Below low tigist l Mean Corpuscular HGB Conc JOHN ([facility]) red cell distribution width 14.8 % 11.5-14.5 Above high no rmal Red Cell Distribution Width JOHN ([facility]) mean corpuscular hemoglobin 25.0 pg 27.0-33.0 Below low nor mal Mean Corpuscular Hemoglobin JOHN ([facility]) lymph % 17.9 % 24.0-44.0 Below low normal Lymph % JOHN ( [facility]) platelet count, automated 329 10 150-450 normal Platelet C ount, Automated JOHN ([facility]) neutrophils % 71.9 % 36.0-66.0 Above high normal Neutrophils % A [facility] ([facility]) baso % 0.5 % 0.0-1.0 normal Baso % JOHN ([facility]) immature granulocyte % 0.4 % 0-3.0 normal Immature Gran ulocyte % JOHN ([facility]) eos % 4.2 % 0.0-3.0 Above high normal Eos % JOHN ([facility]) mono % 5.1 % 0.0-5.0 Above high normal Crisp % JOHN ([facility]) mono # 0.7 10 0.0-0.8 normal Crisp # JOHN ([facility]) neutrophils # 9.2 10 1.5-8.5 Above high normal Neutrophils # A [facility] ([facility]) nucleated red blood cell % 0.0 % 0-0 normal Nucleated Red Blood Cell % JOHN ([facility]) lymph # 2.3 10 1.5-5.0 normal Lymph # JOHN ([facility]) eos # 0.5 10 0.0-0.5 normal Eos # JOHN ([facility]) baso # 0.1 10 0.0-0.2 normal Baso # JOHN ([facility]) ID Date Data Source [id number] 09/12/2020 12:38:00 PM EST JOHN ([facility]) Name Value Range Interpretation Code Description Data Estella rce(s) Supporting Document(s) C reactive protein quantitativ 10.80 mg/dL 0.00-0.30 Above high normal C Reactive Protein Quantitativ [place] ([facility]) ID Date Data Source [id number] 09/12/2020 12:38:00 PM EST JOHN ([facility]) Name Value Range Interpretation Code Description Data Estella rce(s) Supporting Document(s) glucose, fasting 98 mg/dL 70-100 normal Glucose, Fasting AT [facility]) creatinine for GFR 0.61 mg/dL 0.55-1.30 normal Creatinine for GF R [place] ([facility]) blood urea nitrogen 8 mg/dL 7-18 normal Blood Urea Nitro gen JOHN ([facility]) glomerular filtration rate > 60.0 >60 normal Glomerula r Filtration Rate JOHN ([facility]) potassium serum 3.9 mEq/L 3.5-5.1 normal Potassium Serum ATHE NA ([facility]) sodium level 141 mEq/L 136-145 normal Sodium Level JOHN ([facility]) chloride level 109 mEq/L 98-107 Above high normal Chloride Level JOHN ([facility]) anion gap 7 mEq/L 8-16 Below low normal Anion Gap [place] ( [facility]) carbon dioxide level 25 mEq/L 21-32 normal Carbon Dioxide Level JOHN ([facility]) calcium level 9.3 mg/dL 8.5-10.1 normal Calcium Level [place] ( [facility]) AST/SGOT 14 U/L 7-37 normal AST/SGOT JOHN ([facility]) bilirubin,total 0.4 mg/dL 0.2-1.0 normal Bilirubin,total ATHE NA ([facility]) ALT/SGPT 18 U/L 12-78 normal ALT/SGPT JOHN ([facility]) alkaline phosphatase 120 U/L 45-117 Above high normal Alkaline Phosphatase JOHN ([facility]) albumin 3.6 gm/dL 3.2-5.2 normal Albumin JOHN ([facility]) total protein 7.1 gm/dL 6.4-8.2 normal Total Protein JOHN ( [facility]) albumin/globulin ratio 1.2-2.2 Below low normal Albumin /globulin Ratio JOHN ([facility]) ID Date Data Source [id number] 09/12/2020 12:38:00 PM EST [place] ([facility]) Name Value Range Interpretation Code Description Data Estella rce(s) Supporting Document(s) erythrocyte sedimentation rate 60 mm/HR 0-20 Above high normal Erythrocyte Sedimentation Rate JOHN ([facility]) ID Date Data Source [id number] 09/12/2020 12:38:00 PM EST [place] ([facility]) Name Value Range Interpretation Code Description Data Estella rce(s) Supporting Document(s) white blood count 12.8 10 4.0-10.0 Above high normal White Blood Count JOHN ([facility]) hematocrit 37.5 % 36.0-47.0 normal Hematocrit JOHN ([facility]) red blood count 4.56 10 4.00-5.40 normal Red Blood Count ATHE NA ([facility]) hemoglobin 11.4 g/dL 12.0-15.5 Below low normal Hemoglobin JOHN ( [facility]) mean corpuscular volume 82.2 fL 80.0-96.0 normal Mean Corpusc ular Volume JOHN ([facility]) mean corpuscular hemoglobin 25.0 pg 27.0-33.0 Below low nor mal Mean Corpuscular Hemoglobin JOHN ([facility]) mean corpuscular HGB conc 30.4 g/dL 32.0-36.5 Below low tigist l Mean Corpuscular HGB Conc JOHN ([facility]) red cell distribution width 14.8 % 11.5-14.5 Above high no rmal Red Cell Distribution Width JOHN ([facility]) neutrophils % 71.9 % 36.0-66.0 Above high normal Neutrophils % A [facility] ([facility]) platelet count, automated 329 10 150-450 normal Platelet C ount, Automated JOHN ([facility]) lymph % 17.9 % 24.0-44.0 Below low normal Lymph % JOHN ( [facility]) mono % 5.1 % 0.0-5.0 Above high normal Crisp % JOHN ([facility]) eos % 4.2 % 0.0-3.0 Above high normal Eos % JOHN ([facility]) nucleated red blood cell % 0.0 % 0-0 normal Nucleated Red Blood Cell % JOHN ([facility]) immature granulocyte % 0.4 % 0-3.0 normal Immature Gran ulocyte % JOHN ([facility]) baso % 0.5 % 0.0-1.0 normal Baso % JOHN ([facility]) neutrophils # 9.2 10 1.5-8.5 Above high normal Neutrophils # A THE[place] ([facility]) lymph # 2.3 10 1.5-5.0 normal Lymph # JOHN ([facility]) mono # 0.7 10 0.0-0.8 normal Crisp # JOHN ([facility]) eos # 0.5 10 0.0-0.5 normal Eos # JOHN ([facility]) baso # 0.1 10 0.0-0.2 normal Baso # JOHN ([facility]) ID Date Data Source [id number] 09/12/2020 12:38:00 PM EST [facility] ([facility]) Name Value Range Interpretation Code Description Data Estella rce(s) Supporting Document(s) C reactive protein quantitativ 10.80 mg/dL 0.00-0.30 Above high normal C Reactive Protein Quantitativ JOHN ([facility]) ID Date Data Source [id number] 09/12/2020 12:38:00 PM EST [facility] ([facility]) Name Value Range Interpretation Code Description Data Estella rce(s) Supporting Document(s) blood urea nitrogen 8 mg/dL 7-18 normal Blood Urea Nitro gen JOHN ([facility]) glucose, fasting 98 mg/dL 70-100 normal Glucose, Fasting AT [facility]) creatinine for GFR 0.61 mg/dL 0.55-1.30 normal Creatinine for GF R JOHN ([facility]) potassium serum 3.9 mEq/L 3.5-5.1 normal Potassium Serum ATHE ([facility]) glomerular filtration rate > 60.0 >60 normal Glomerula r Filtration Rate JOHN ([facility]) sodium level 141 mEq/L 136-145 normal Sodium Level JOHN (No [facility]) carbon dioxide level 25 mEq/L 21-32 normal Carbon Dioxide Level JOHN ([facility]) anion gap 7 mEq/L 8-16 Below low normal Anion Gap JOHN ( [facility]) chloride level 109 mEq/L 98-107 Above high normal Chloride Level JOHN ([facility]) calcium level 9.3 mg/dL 8.5-10.1 normal Calcium Level JOHN ( [facility]) alkaline phosphatase 120 U/L 45-117 Above high normal Alkaline Phosphatase JOHN ([facility]) bilirubin,total 0.4 mg/dL 0.2-1.0 normal Bilirubin,total ATHE ([facility]) ALT/SGPT 18 U/L 12-78 normal ALT/SGPT JOHN ([facility]) AST/SGOT 14 U/L 7-37 normal AST/SGOT JOHN ([facility]) total protein 7.1 gm/dL 6.4-8.2 normal Total Protein JOHN ( [facility]) albumin 3.6 gm/dL 3.2-5.2 normal Albumin JOHN ([facility]) albumin/globulin ratio 1.2-2.2 Below low normal Albumin /globulin Ratio JOHN ([facility]) ID Date Data Source [id number] 09/12/2020 12:38:00 PM EST [place] ([facility]) Name Value Range Interpretation Code Description Data Estella rce(s) Supporting Document(s) erythrocyte sedimentation rate 60 mm/HR 0-20 Above high normal Erythrocyte Sedimentation Rate JOHN ([facility]) ID Date Data Source [id number] 09/12/2020 12:38:00 PM EST [place] ([facility]) Name Value Range Interpretation Code Description Data Estella rce(s) Supporting Document(s) white blood count 12.8 10 4.0-10.0 Above high normal White Blood Count JOHN ([facility]) hemoglobin 11.4 g/dL 12.0-15.5 Below low normal Hemoglobin JOHN ( [facility]) hematocrit 37.5 % 36.0-47.0 normal Hematocrit JOHN ([facility]) red blood count 4.56 10 4.00-5.40 normal Red Blood Count AT[facility] ([facility]) red cell distribution width 14.8 % 11.5-14.5 Above high no rmal Red Cell Distribution Width JOHN ([facility]) mean corpuscular volume 82.2 fL 80.0-96.0 normal Mean Corpusc ular Volume JOHN ([facility]) mean corpuscular HGB conc 30.4 g/dL 32.0-36.5 Below low tigist l Mean Corpuscular HGB Conc JOHN ([facility]) mean corpuscular hemoglobin 25.0 pg 27.0-33.0 Below low nor mal Mean Corpuscular Hemoglobin JOHN ([facility]) platelet count, automated 329 10 150-450 normal Platelet C ount, Automated JOHN ([facility]) lymph % 17.9 % 24.0-44.0 Below low normal Lymph % JOHN ( [facility]) mono % 5.1 % 0.0-5.0 Above high normal Crisp % JOHN ([facility]) neutrophils % 71.9 % 36.0-66.0 Above high normal Neutrophils % A [place] ([facility]) eos % 4.2 % 0.0-3.0 Above high normal Eos % JOHN ([facility]) immature granulocyte % 0.4 % 0-3.0 normal Immature Gran ulocyte % JOHN ([facility]) baso % 0.5 % 0.0-1.0 normal Baso % JOHN ([facility]) mono # 0.7 10 0.0-0.8 normal Crisp # JOHN ([facility]) neutrophils # 9.2 10 1.5-8.5 Above high normal Neutrophils # A [place] ([facility]) lymph # 2.3 10 1.5-5.0 normal Lymph # JOHN ([facility]) nucleated red blood cell % 0.0 % 0-0 normal Nucleated Red Blood Cell % JOHN ([facility]) baso # 0.1 10 0.0-0.2 normal Baso # JOHN ([facility]) eos # 0.5 10 0.0-0.5 normal Eos # JOHN ([facility]) ID Date Data Source [id number] 09/12/2020 12:38:00 PM EST [place] ([facility]) Name Value Range Interpretation Code Description Data Estella rce(s) Supporting Document(s) C reactive protein quantitativ 10.80 mg/dL 0.00-0.30 Above high normal C Reactive Protein Quantitativ JOHN ([facility]) ID Date Data Source [id number] 09/12/2020 12:38:00 PM EST [place] ([facility]) Name Value Range Interpretation Code Description Data Estella rce(s) Supporting Document(s) blood urea nitrogen 8 mg/dL 7-18 normal Blood Urea Nitro gen [place] ([facility]) glucose, fasting 98 mg/dL 70-100 normal Glucose, Fasting AT [facility]) glomerular filtration rate > 60.0 >60 normal Glomerula r Filtration Rate JOHN ([facility]) creatinine for GFR 0.61 mg/dL 0.55-1.30 normal Creatinine for GF R JOHN ([facility]) sodium level 141 mEq/L 136-145 normal Sodium Level JOHN ([facility]) potassium serum 3.9 mEq/L 3.5-5.1 normal Potassium Serum AT[facility] ([facility]) carbon dioxide level 25 mEq/L 21-32 normal Carbon Dioxide Level JOHN ([facility]) chloride level 109 mEq/L 98-107 Above high normal Chloride Level JOHN ([facility]) ALT/SGPT 18 U/L 12-78 normal ALT/SGPT JOHN ([facility]) calcium level 9.3 mg/dL 8.5-10.1 normal Calcium Level JOHN ( [facility]) AST/SGOT 14 U/L 7-37 normal AST/SGOT [facility] ([facility]) alkaline phosphatase 120 U/L 45-117 Above high normal Alkaline Phosphatase JOHN ([facility]) anion gap 7 mEq/L 8-16 Below low normal Anion Gap JOHN ( [facility]) albumin 3.6 gm/dL 3.2-5.2 normal Albumin JOHN ([facility]) bilirubin,total 0.4 mg/dL 0.2-1.0 normal Bilirubin,total ATHE ([facility]) total protein 7.1 gm/dL 6.4-8.2 normal Total Protein JOHN ( [facility]) albumin/globulin ratio 1.2-2.2 Below low normal Albumin /globulin Ratio JOHN ([facility]) ID Date Data Source [id number] 09/12/2020 12:38:00 PM EST [place] ([facility]) Name Value Range Interpretation Code Description Data Estella rce(s) Supporting Document(s) erythrocyte sedimentation rate 60 mm/HR 0-20 Above high normal Erythrocyte Sedimentation Rate [facility] ([facility]) ID Date Data Source [id number] 09/12/2020 12:38:00 PM EST [place] ([facility]) Name Value Range Interpretation Code Description Data Estella rce(s) Supporting Document(s) white blood count 12.8 10 4.0-10.0 Above high normal White Blood Count [facility] ([facility]) hemoglobin 11.4 g/dL 12.0-15.5 Below low normal Hemoglobin JOHN ( [facility]) red blood count 4.56 10 4.00-5.40 normal Red Blood Count ATHE NA ([facility]) mean corpuscular volume 82.2 fL 80.0-96.0 normal Mean Corpusc ular Volume JOHN ([facility]) mean corpuscular hemoglobin 25.0 pg 27.0-33.0 Below low nor mal Mean Corpuscular Hemoglobin JOHN ([facility]) mean corpuscular HGB conc 30.4 g/dL 32.0-36.5 Below low tigist l Mean Corpuscular HGB Conc [facility] ([facility]) hematocrit 37.5 % 36.0-47.0 normal Hematocrit JOHN ([facility]) red cell distribution width 14.8 % 11.5-14.5 Above high no rmal Red Cell Distribution Width JOHN ([facility]) platelet count, automated 329 10 150-450 normal Platelet C ount, Automated [facility] ([facility] [facility] lymph % 17.9 % 24.0-44.0 Below low normal Lymph % JOHN ( [facility]) neutrophils % 71.9 % 36.0-66.0 Above high normal Neutrophils % A THENA ([facility]) mono % 5.1 % 0.0-5.0 Above high normal Crisp % JOHN ([facility]) immature granulocyte % 0.4 % 0-3.0 normal Immature Gran ulocyte % JOHN ([facility]) nucleated red blood cell % 0.0 % 0-0 normal Nucleated Red Blood Cell % JOHN ([facility]) eos % 4.2 % 0.0-3.0 Above high normal Eos % JOHN ([facility]) baso % 0.5 % 0.0-1.0 normal Baso % JOHN ([facility]) mono # 0.7 10 0.0-0.8 normal Crisp # JOHN ([facility]) eos # 0.5 10 0.0-0.5 normal Eos # JOHN ([facility]) baso # 0.1 10 0.0-0.2 normal Baso # JOHN ([facility]) lymph # 2.3 10 1.5-5.0 normal Lymph # JOHN ([facility]) neutrophils # 9.2 10 1.5-8.5 Above high normal Neutrophils # A CLAUDIA ([facility]) ID Date Data Source [id number] 09/09/2020 02:41:21 PM EDT [facility] Patient History Medical History:AsthmaDe pressionSeizure disorder s/p MVASLE - lupusHypertensionSurgical History: section q2Azjdawxizme D&CAppendectomyTonsillectomyGallbladderFamily History:Hypertension (Father)Diabetes (Father)Social/Personal History: Smoking Status: former smokerChief Complaint: Routine CleaningVisit Type: ExamCurrent Problems: Dental caries (ICD-521.00) (TDB39-M43.9)Contact with and (suspected) exposure to other viral communicable diseases (ICD-V01.79) (BIR53-D33.828)Encounter for surveillance of intrauterine contraceptive device (ICD-V25.42) (EQR33-E30.431)Encounter for general adult medical examination without abnormal findings (DFZ57-T44.00)Encounter for care and examination of lactating mother (ICD-V24.1) (BVG48-J43.1)Encounter for immunization (ICD-V05.9) (IGY11-G57)BMI 45.0-49.9 (ICD-V85.42) (EBJ45-B12.42)MORBID OBESITY (ICD-278.01) (ICD10- E66.01)Problem list reviewed during this update.Current Medications: KEPPRA 1000 MG ORAL TABLET (LEVETIRACETAM) take 1500 mg by mouth two times daily; Route: ORALCLONAZEPAM 0.5 MG ORAL TABLET (CLONAZEPAM) take one tablet by mouth three times daily; Route: ORALSEROQUEL 50 MG ORAL TABLET (QUETIAPINE FUMARATE) take one tablet by mouth twice daily; Route: ORALFLUOXETINE HCL 20 MG ORAL TABLET (FLUOXETINE HCL) take 40mg by mouth daily; Route: ORALALBUTEROL SULFATE (2.5 MG/3ML) 0.083% INHALATION NEBULIZATION SOLUTION (ALBUTEROL SULFATE) ; Route: INHALATIONCALCIUM 500 + D TABLET (CALCIUM CARBONATE-VITAMIN D TABS) take one tablet by mouth dailySM VITAMIN D3 25 MCG (1000 UT) ORAL TABLET (CHOLECALCIFEROL) take one and one half tablets by mouth every day; Route: ORALCETIRIZINE HCL 10 MG ORAL TABLET (CETIRIZINE HCL) take one tablet by mouth daily; Route: ORALCEPHALEXIN 500 MG ORAL CAPSULE (CEPHALEXIN) take one capsule by mouth three times a day; Route: ORALBUTALBITAL-ACETAMINOPHEN 50-325 MG ORAL TABLET (BUTALBITAL-ACETAMINOPHEN) one daily as needed; Route: ORALMedication list reviewed during this update.Current Allergies: * TRUE LATEX (Critical)PLAQUENIL (Severe)* LOVANOX (Severe)* FINERGAN (Severe)Allergy list reviewed during this update.Past Medical History:(reviewed - no changes required) AsthmaDepressionSeizure disorder s/p MVASLE - lupusHypertension Dental Chart: Procedures:Type - CDT Code - Description B - (D0150) Comprehensive oral evaluation - new or established patient (Performed by Micky Hodgson DDS) B - (D0210) Intraoral, complete series of radiographic images (Performed by Audrey Alexis RDH) Treatments:Type - CDT Code - Description T - (D2392) Resin-based composite, 2 surfaces, posterior on Tooth # 13 on Tooth Surface OD (Performed by Audrey Alexis RDH) T - (D2392) Resin-based composite, 2 surfaces, posterior on Tooth # 12 on Tooth Surface DO (Performed by Audrey Alexis RDH) T - (D2330) Resin, one surface, anterior on Tooth # 10 on Tooth Surface F (Performed by Audrey Alexis RDH) T - (D2392) Resin-based composite, 2 surfaces, posterior on Tooth # 21 on Tooth Surface DO (Performed by Audrey Alexis RDH) Existing:Type - CDT Code - Description[E] Tat Momoli - 3/4 Cast High Zapata Metal On #18[E] Resin-Based Composite - Direct On #19 Surface O, #3 Surface O, #30 Surface O, #31 Surface OBL, #4 Surface OD, #5 Surface OD[E] Tat Momoli - Esthetic Stainless Steel On #15[E] Missing - Tat Momoli and Root On #1 Surface O Region XR, #16 Surface O Region XR, #17 Surface O Region XR, #2 Surface O Region XR, #32 Surface O Region XR Chart Notes:rico (Sep 09 2020 4:54PM): CC: Establish care - pt stated she was not able to get her teeth cleaned when she was preganant. RMH: New pt: Lupus, Hx of preclampsia, Asthma, Seizure disorderAllergies: Latex, Plaquenil, Lovanox, FinerganSmoking Status: FormerBP: See BP log - Very high 174/127, 165/120, 175/127. Med clearance needed. Temp: 97.9EO/IO: Oral cancer screening performed - no abnormalites noted; normal mucosa with no white or raised patches. No lymphadenopathy. No poping or clicking of the TMJ. Pt has fair oral health and fair oral hygiene. Several small areas of decay per doc. Pt has decay under the crown on 15. Pt will be referred out for crown. Pt may need crown lengthening. Probing depths 1- 4mm with localized pocket of 5mm between 30 and 29. Will reassess area after adult prophy. Pt reports she brushes 2xday and flosses daily. Gerneralized gingivitis. Pt took medical clearance with her. Stated she has an appt next week . Behavior: Very compliantTX: Perio charting, FMX, and exam by Dr. Hodgson. Additional PPE used due to COVID-19. This included a minimum of a N95, a surgical mask, a hair covering, a face shield, proctective eyewear, a gown, and additional barriers.NV: ProphdevendraFoAudrey cesar RDH by rico (09/09/2020 4:54 PM): ; andriy (Sep 10 2020 4:23PM): CC: Establish care - pt stated she was not able to get her teeth cleaned when she was preganant. RMH: New pt: Lupus, Hx of preclampsia, Asthma, Seizure disorderAllergies: Latex, Plaquenil, Lovanox, FinerganSmoking Status: FormerBP: See BP log - Very high 174/127, 165/120, 175/127. Med clearance needed. Temp: 97.9 Reviewed Xrays. Exam: caries detected. OCS: WNL, IO/ EO completed, No significant hard findings upon clinical exam.Additional PPE requirements due to COVID-19 in the dental setting, N95, surgical mask, hair covering, gown and shieldPt was cooperative. OHI given Referral: Prosth for redo crown #15 NV:restorationFowler Audrey ESQUIVEL by andriy (09/10/2020 4:23 PM): Tooth Notes and Watches: Assessment & Plan Problems:Added: Dental caries (ICD-521.00) (GZO79-D13.9)Medications:KEPPRA 1000 MG ORAL TABLETCLONAZEPAM 0.5 MG ORAL TABLETSEROQUEL 50 MG ORAL TABLETFLUOXETINE HCL 20 MG ORAL TABLETALBUTEROL SULFATE (2.5 MG/3ML) 0.083% INHALATION NEBULIZATION SOLUTIONCALCIUM 500 + D TABLETSM VITAMIN D3 25 MCG (1000 UT) ORAL TABLETCETIRIZINE HCL 10 MG ORAL TABLETCEPHALEXIN 500 MG ORAL CAPSULEBUTALBITAL- ACETAMINOPHEN 50-325 MG ORAL TABLETMedication Changes:Removed:PARAGARD INTRAUTERINE COPPER INTRAUTERINE INTRAUTERINE DEVICE, METFORMIN HCL 500 MG ORAL TABLET-take one tablet by mouth daily with breakfast., HEPARIN SODIUM (PORCINE) 5000 UNIT/ML INJECTION SOLUTION-inject two mililiters contents of 2 vials under skin twice a day as directed, ESOMEP-EZS 20 MG ORAL KIT-take one capsule by mouth kaitlin morning before breakfast., DOK 100 MG ORAL CAPSULE-take one tablet by mouth daily, ACETAMINOPHEN 325 MG ORAL TABLET-take one tablet by mouth as needed, NAPROXEN-ESOMEPRAZOLE 500-20 MG ORAL TABLET DELAYED RELEASE-take one tablet by mouth twice a day with fool, AFEDITAB CR 30 MG ORAL TABLET EXTENDED RELEASE 24 HOUR-take one tablet by mouth daily Qty: 90[Tablet] Refills: 1Allergies:* TRUE LATEX (Critical)PLAQUENIL (Severe)* LOVANOX (Severe)* FINERGAN (Severe)Orders:Computer Help Desk Specialist Referral [[id number]] Name Value Range Interpretation Code Description Data Estella rce(s) Supporting Document(s) ID Date Data Source [id number] 09/07/2020 11:16:42 AM [facility] Name Value Range Interpretation Code Description Data Estella rce(s) Supporting Document(s) Progress Note [facility] FFBVGm0sNjEZTkJu82/AZXjaSTCga3BcGAtcVFu7CQpsUHDbO9OxYCW9aF3fTGA0EBqRYqAkEwSbLQE8 lbm [file] EOvoDnGfNgVjO1X8OnwaQY4pTJEAUw8+IRntfIQtiBooLHHIUiW2ZRM2TUkrQPULDl7N ID Date Data Source [id number] 08/31/2020 12:23:54 PM EDT [facility] Name Value Range Interpretation Code Description Data Estella rce(s) Supporting Document(s) Progress Note [facility] EGTFPb8dNvIWSyUm99/EDEpyKAGej9FeHHhoHQu3WKlkWQRyZ0GgGVM1mK2mDQF6KGwJHdVoRnVxRKAk lbm GfZsrICfLbKCAtTmtPPoKrKFjbZmlyaJNnQD3CfAV6LOQgJ63zVMJoWTAfD9JkBGRqLOK+Cg6LLDRymU KpTJ9KFklU1O3qj3vHXm4+gJ3YHmBRiWZzu8j6khxmvEmiiI/oob16hq6zs3tREQUdA0d6au+KXIqaCf 2rhlraTi/ga15YzLqBe8pYY8VOu4/PznP2cwER/yz/ jBKtLofqn/3K6G8sOd6E/tftBq1yX8dg9xRwQ8/58NMrQdKqjbAFLPR1hh5mokv93BproVppk/Kqd/patricia [file] jatTYnmFbdFGJLBcH7FNdjMAqaHEVCQh7Y ID Date Data Source [id number] 08/25/2020 12:00:00 PM EDT [facility] ([facility]) Name Value Range Interpretation Code Description Data Estella rce(s) Supporting Document(s) TP Reflex HPV ASCUS Laboratory test result [facility] ([facility]) SPECIMEN PART------ A. Cervical, Endocervical, ThinPrep Pap ([employer]) CYTOLOGY HX-------- Date of Last Menstrual Period: 08/2020 Other Information:Previous Pap: 06/2019 IntraUterine Device FINAL DIAGNOSIS---- INTERPRETATION: Negative for Intraepithelial Lesion or Malignancy. SPECIMEN ADEQUACY:Satisfactory for evaluation. Endocervical/transformation zone component present. TP Reflex HPV ASCUS Laboratory test result [facility] ([facility]) ID Date Data Source [id number] 08/17/2020 03:15:00 PM EDT [facility] Name Value Range Interpretation Code Description Data Estella rce(s) Supporting Document(s) SARS-COV-2 RNA RESP QL PATIENCE+PROBE [facility] This lab was ordered by [facility] and reported by [employer] [place]. ID Date Data Source [id number] 08/17/2020 03:00:00 PM EDT [facility] Labs In-House Lab TestsDate/Time Collect ed: August 17, 2020 3:15 PMDate/Time Received: August 17, 2020 3:15 PMComments: Covid testing performed without difficulty.Radha Matt LPN, August 17, 2020 8:45 PMAssessment & Plan Orders:Specimen Handling [[id number]] Name Value Range Interpretation Code Description Data Estella rce(s) Supporting Document(s) ID Date Data Source [id number] 08/17/2020 01:16:51 PM EDT [facility] Name Value Range Interpretation Code Description Data Estella rce(s) Supporting Document(s) Progress Note [facility] ALYNWb3iChXDSfMv16/TWJrcRHJlq4VePWxyKEw9HVvfUBEnS1MiIAK7xV8cDRT5AKjUSqEuJuJsMEW7 lbm [file] AgICAgICAgICAgICAgICAgICAgICAgICAgICAgICAgICAgICAgICAgICAgICAgICAgICAgICAgICAgIC AgICAgICAgICAgICANCiAgICAgICAgICAgICAgICAgICAgICAgICAgICAgICAgICAgICAgICAgICAgIC AgICAgICAgICAgICAgICAgICAgICAgICAgICAgICAg ICAgICAgICAgICAgICAgICAgICAgICANCiAgICAgICAgICAgICAgICAgICAgICAgICAgICAgICAgICAg ICAgICAgICAgICAgICAgICAgICAgICAgICAgICAgICAgICAgICAgICAgICAgICAgICAgICAgICAgICAg ICAgICANCiAgICAgICAgICAgICAgICAgICAgICAgIC AgICAgICAgICAgICAgICAgICAgICAgICAgICAgICAgICAgICAgICAgICAgICAgICAgICAgICAgICAgIC AgICAgICAgICAgICAgICANCiAgICAgICAgICAgICAgICAgICAgICAgICAgICAgICAgICAgICAgICAgIC AgICAgICAgICAgICAgICAgICAgICAgICAgICAgICAg ICAgICAgICAgICAgICAgICAgICAgICAgICANCiAgICAgICAgICAgICAgICAgICAgICAgICAgICAgICAg ICAgICAgICAgICAgICAgICAgICAgICAgICAgICAgICAgICAgICAgICAgICAgICAgICAgICAgICAgICAg ICAgICAgICANCiAgICAgICAgICAgICAgICAgICAgIC AgICAgICAgICAgICAgICAgICAgICAgICAgICAgICAgICAgICAgICAgICAgICAgICAgICAgICAgICAgIC AgICAgICAgICAgICAgICAgICANCiAgICAgICAgICAgICAgICAgICAgICAgICAgICAgICAgICAgICAgIC AgICAgICAgICAgICAgICAgICAgICAgICAgICAgICAg ICAgICAgICAgICAgICAgICAgICAgICAgICAgICANCiAgICAgICAgICAgICAgICAgICAgICAgICAgICAg ICAgICAgICAgICAgICAgICAgICAgICAgICAgICAgICAgICAgICAgICAgICAgICAgICAgICAgICAgICAg ICAgICAgICAgICANCiAgICAgICAgICAgICAgICAgIC AgICAgICAgICAgICAgICAgICAgICAgICAgICAgICAgICAgICAgICAgICAgICAgICAgICAgICAgICAgIC AgICAgICAgICAgICAgICAgICAgICANCjw/nIIsG5xpgCRmzsX6W1dkEz2OJx6JAU7ta2HmHALtLMflnw DlIowZGpJvGUMkRpaRZjh7VXdwMV2CrJXjV5IhL7Yb SNkpHL0AUBByHPOkhOMkZMZlFJTcQuF4WQGpZDsdEN3IjYJzXNovSOEqKMAvTwKhIMQpIKNzUMZvKWWz ZICPTLYpBZAyXbPsRQRiNKWnYE0RFZPkR768quAgQu9MVk0NXuMiXW8crz0HSiKxYETsLqbXNmf3MWwz DS9NxCJesIScYnHzHKZGCaQtN3bwx2XyMaUcCTVJYK vwPO1Du4OhpGFrTAo+Sp3WMG6li1TzTEciLyFnKN4nwd4KCBuLRrHcY6CkvKrgYHPtq1jhCJZnTQ1xzF GsIPP2UW0djHMleAEqZBTkB8rchrVfEC4nFSLHZJTomDVzPK68FxPmZdHqXDG9VqWmYC7qGHvfMA6LBX S7MVkdFYPnIQFvS4rDFcLyUBXeYVAtkLzsJZ4ABjIt R5NdchThwFLsFxYkQODUJf1+VWbmcmBhNdhZReI4RIIgo4BsAWd1BK0PLPLwDMqcWG5KKMLehJ0iPEpd GT5GMpPiMBXkKMPRDsZsJ30muGCcKKx7O5LxIoAtPHNcAsalKAWlVQzhNdIoAJKgBfQbGOfeFE4+ID4+ JWtkZI4UZIufybSwRSDoXv6JALJaGEInFF5jHZAlLX ZeP9M9wUxcQCYLBhSnS3fpdngzCC8hBEWdF331dZxztmBuXQSkTAKuKf1FBZNgBUI6YJBmnOMpUlLoNN PHFFxlYE9XqFTuICN8dT3kZYvoAAXxYYCwK5zBNbBoeHjcVP93eZjwpoZwiPTkMOp+Se3NKD9kn7DmOA u1pdLrZGrrTAB6NBlfTYVtQGPpMQBnVAZ2GSI4FXCA EyHrZXGrJLFaPBveLGLnEHJjlk0COILtRPAfJAlpZDDmMCOkWGPrXKsbMYVkOIR3NYZ8ZLIbSMTuDF8E YiArEXYeMIMtJJbnHADlLIBtrv2DICFhFKTkHyM1CVJoBXBgWBMmVLgdSPKqDEKaBnndXICgETDhEA3Y UxIkIFSoHNWsYgtcYXSmEGZbpf3HYZOtDGJzIjVdKZ EuZRHzJKLzBCclJGDtUTO2DGT2XBWhYOPhKZ5UYtEdIXWaUBi1EuywCWEgIUDehq1XUJYyHMHqFbI8NK TyWFUmBZUqCFpsDYSvBXZyAfViXPVvSXVbSY5TOfCgBPWhZGT2JGCoSTNjARDuhy0CECZiNJPjZjS5SG CzONHgWUCqMHboPPTnQVY6YeS7YMZgARQgUP8LSuHu FJBgVBc0OhYmEHRqWXAntp0EATYuVIEnXKM8YDVvTXGbKVJfJKmoRVMuVENqJTy0JGWgQKZgLZ9TWkDg WHZbTzH7OhRhVXBbUTMejp2VXPIsUMYtYAqaIERcHYVqWAJxRSnrIEEcKMMtGJDiSUQmQDBrZD3RLsOu BVBtCsIrOOgnKVIqSXGyuw7IWUUcBHMgKeL8XFKjCF FdTZAoXCxzLKHpMDEgCLg0EMCkTOReYZ7JSdOkIOSiQpNoASGvTFTeXCXrcv3QZOQdNYPhGKXkJmGrKD MeQDNwMOjjTPEwPQJ6RUn1PTAhCINaEY9WYzIfWBAwWoU8HtYrZGSiSOJmjo2WQODaJFNxIVMeUXJjUL YuVEVpSRiwYLHvQHT7Dwx3CBEcHZFmAG5GWyJjYEUi CdLoMZSnRQThQJEril4NOIBjXTNrNkF1GyKpJKOkDXTmWQtaMKZsBNQ8PkK6UCSkSHHlDD8FJiGkPHYk Vxj1YCCoMWVuMAOzhu2LeVNtpVrsav5MBLbYGm2MyRlzZEB0APpfJy8qzJXhJKPdHLEJSk8XgcKlSUMd ALKINXuzVOJmHNGfYMOuY2BnVLWhSGC6LYO5QwCrFs P2VcJoVHKgCMc2AqX7ERT0HoGxVSS8MqHbSfWgSJXtRQLvDCjhC3EgTRPmXaC+XV5aHCt+Rs2Gl9Bkna A1ofTxHVkjVSO4Cd3DPPCYC5WRPd== ID Date Data Source [id number] 08/15/2020 05:10:57 PM EDT [facility], PCName: Winsome AkersDOB: 1990Provider: Abdoulaye Guerrero: 08/09/2020 AssessmentHistory of Present Illness:Ms. Akers is a very pleasant 30 year year old female who is 3 months s/p lateral malleolus fracture during her 3rd trimester. She was treated nonop. She has been WBAT in her boot and struggling to wean out. She has not done PT. She still has moderate pain. She has taken tylenol. She cannot take NSAIDs due to breast feeding. She also complains of pain radiating into her right foot. She has delivered and the baby is doing well.Physical Examination:General: Patient appears well developed, well nourished, and in no acute distress. Patient is oriented to person, place, and time. The patient's mood is appropriate to situation. The patient's coordination is normal.Body Habitus: Morbidly Obese Gait: The patient walks with antalgic gait.Skin: Skin appears to be intact in both upper and lower extremities. There does not appear to be any ulceration or other non-healing wounds.R ankleStrength: decreasedTenderness to palpation: lateral malROM: slightly decreasedStability:normal Crepitation: noneEffusion: mild ankleRadiographs:AP Lateral Mortise views of the right ankle and 2 views of the right foot were ordered, obtained, and interpreted on 08/09/2020 with the patient. There is a healing distal fibula fracture. THe foot is normal. No significant difference from position on prior XR.Assessment and Plan:The patient has a right lateral malleolus fracture healing as expected. There is not abundant callus and I expect the next XR will show more. Discussed weaning the boot at home. Discussed starting PT. Discussed it could take 6M to fully recover from this injury and the boot may be over stabilizing her at present.I discussed the diagnosis and treatment options in detail with the patient. At this point the patient has no signs of instability or mechanical symptoms. We discussed RICE Therapy. Patient can begin PT and Tylenol/ I will plan on re-assessing the patient in 4-6 weeks with repeat XR. Plan 1. X-Ray I Ankle 2 Views Foot 3 Views (XRays were ordered, obtained and interpreted today in the office. Indication: pain/dysfunction.); Status:Complete; Done: 09Aug2020 Perform:SOS14 (General); Due:23Aug2020; Last Updated By:Blaze Cook; 08/09/2020 12:26:11 PM;Ordered; For:Right ankle pain; Ordered By:Richard Guerrero;Laterality: : Right 2. Physical Therapy (SOS) - General Treatment Treatment Status: Complete Done: 09Aug2020 Ordered;For: Closed fracture of distal lateral malleolus of right ankle, initial encounter, Right ankle pain; Ordered By: Richard Guerrero Performed: Due: 23Aug2020; Last Updated By: Shanel Montenegro; 08/09/2020 12:41:09 PMPT Protocol : Evaluate and treat as indicated, per protocol or as previously written.Duration: : Four WeeksPT Frequency : Two or three times a weekLaterality and Body Part : right ankle Signatures Electronically signed by : Richard Guerrero M.D.; Aug 15 2020 5:10PM EST (Author) Name Value Range Interpretation Code Description [facility] Document(s) ID Date Data Source [id number] 07/29/2020 11:12:00 AM EDT [facility] Formed stool submitted. Specimen meets r ejection criteria. Name Value Range Interpretation Code Description Data [facility] rce(s) Supporting Document(s) ID Date Data Source [id number] 08/04/2020 04:04:00 PM EDT [facility] Name Value Range Interpretation Code Description Data [facility] Supporting Document(s) [place] Lupus Tech Interpretation Normal (applies to non-numeric results) [facility] RESULT: See Lupus Anticoagulant Interp. [place] Lupus PT result 9.4 - 12.5 Normal (applies to non-numer ic results) [facility] [place] Lupus PT INR result 0.9-1.1 Normal (applies to non-n umeric results) [facility] ADDITIONAL INFORMATIO N Standard intensity warfarin therapeutic range: 2.0 to 3.0 High intensity warfarin therapeutic range: 2.5 to 3.5 [place] Lupus APTT result 35 sec 25 - 37 Normal (applies to non-num carolann results) [facility] [place] Lupus DRVVT Scrn Ratio res <1.20 Way [facility] Test Performed by: [place] [address] Janitor Helper: Steven Victor M.D. Ph.D.; CLIA# [id number] [place] DRVVT Mix Ratio Reflex <1.20 Normal (applies to no n-numeric results) [facility] Test Performed by: [place] [address] Janitor Helper: Steven Victor M.D. Ph.D.; CLIA# [id number] [place] DRVVT Confirm Ratio Reflex <1.20 Normal (applies t o non-numeric results) [facility] Test Performed by: [place] [address] Janitor Helper: Steven Victor M.D. Ph.D.; CLIA# [id number] [place] Thrombin Time Reflex Normal (applies to non- numeric results) [facility] REFERENCE VALUE------ 15.8 - 24.9 Test Performed by: [place] [address] Janitor Helper: Steven Victor M.D. Ph.D.; CLIA# [id number] [place] Lupus Reviewed By result Normal (applies to non-numeric results) [facility] [place] Special Coag Interp Rfx Normal (applies to n on-numeric results) [facility] IMPRESSION: 1) No evidence of a lupus a nticoagulant. 2) Borderline prolonged dilute Jaimie viper venom time (DRVVT) screen ratio of doubtful significance. 3) If clinically indicated, for additional antiphospholipid antibody evaluation, consider serologic testing for anticardiolipin and/or anti-beta 2 glycoprotein I antibodies, IgG and IgM isotypes. COMMENTS: Mixing study of the borderline prolonged dilute Jaimie viper venom time (DRVVT screen and mix ratios) demonstrates no evidence of inhibition, and along with the normal DRVVT confirm ratio, provides no evidence of a lupus anticoagulant. The mildly abnormal DRVVT screen ratio is of doubtful significance. Normal activated partial thromboplastin time provides no evidence of a lupus anticoagulant. Test Performed by: [place] [address] Janitor Helper: Steven Victor M.D. Ph.D.; CLIA# [id number] ID Date Data Source [id number] 07/29/2020 12:19:00 PM EDT [facility] Name Value Range Interpretation Code Description Data Estella rce(s) Supporting Document(s) Vitamin D,Total (25OH) 30.0-100.0 Below low normal [facility] Reference Range: <10 ng/mL: Deficien t 10-30 ng/mL: Insufficient 30-100 ng/mL: Sufficient >100 ng/mL: Toxicity possible ID Date Data Source [id number] 07/29/2020 11:58:00 AM EDT [facility] Name Value Range Interpretation Code Description Data Estella rce(s) Supporting Document(s) Sodium 141 mmol/L 137-145 Normal (applies to non-numeric resul ts) [facility] Potassium 3.5-5.1 Normal (applies to non-numeric resul ts) [facility] Chloride 111 mmol/L 98-112 Normal (applies to non-numeric resul ts) [facility] Carbon Dioxide CO2 22.0-33.0 Normal (applies to non-numer ic results) [facility] Anion Gap 4.0-11.0 Normal (applies to non-numeric resul ts) [facility] BUN 13 mg/dL 7-17 Normal (applies to non-numeric resul ts) [facility] Creatinine 0.70-1.20 Normal (applies to non-numeric resul ts) [facility] GFR 89 mL/min >60 Normal (applies to non-numeric resul ts) [facility] Result based on MDRD formula. Glucose Level 101 mg/dL 74-99 Above high normal [facility] The reference range is only applicable w hen fasting. Calcium-Uncorrected 8.4-10.2 Normal (applies to non-nume margie results) [facility] Corrected Calcium 8.4-10.2 Normal (applies to non-numeri c results) [facility] Bilirubin,Total 0.2-1.3 Normal (applies to non-numeric results) [facility] SGOT(AST) 8 U/L 14-36 Below low normal [facility] SGPT(ALT) 18 U/L 9-52 Normal (applies to non-numeric resul ts) [facility] Alkaline Phosphatase 152 U/L 38-126 Above high normal [facility] can increase Alkaline Phosp le vels up to 2 times the normal adult value. Normal values for children and adolescents are 2 to 3 times the normal adult value. Total Protein 6.3-8.2 Normal (applies to non-numeric re sults) [facility] Albumin 3.5-5.0 Normal (applies to non-numeric resul ts) [facility] ID Date Data Source [id number] 07/29/2020 11:02:00 AM EDT [facility] Name Value Range Interpretation Code Description Data Estella rce(s) Supporting Document(s) White Blood Count 4.8-10.8 Above high normal [facility] Red Blood Count 3.68-5.22 Normal (applies to non-numeric results) [facility] Hemoglobin 11.2-15.7 Normal (applies to non-numeric resul ts) [facility] Hematocrit 34.1-44.9 Normal (applies to non-numeric resul ts) [facility] Mean Corpuscular Volume 81-99 Below low normal [facility] Mean Corpuscular Hemoglobin 27.0-33.0 Below low normal [facility] Mean Corpuscular HGB Conc 32.0-36.0 Normal (applies to no n-numeric results) [facility] Red Cell Distribution Width 11.5-14.5 Above high normal [facility] Platelet Count 350 X10 3/uL 130-450 Normal (applies to non-numeric results) [facility] Mean Platelet Volume 9.5-12.7 Normal (applies to non-num carolann results) [facility] Imm Grans% (AUTO) 0 % 0-2 Normal (applies to non-numeri c results) [facility] Neutrophils % (AUTO) 62 % 40-75 Normal (applies to non-num carolann results) [facility] Lymphocytes % (AUTO) 30 % 21-46 Normal (applies to non-num carolann results) [facility] Monocytes % (AUTO) 4 % 5-12 Below low normal [facility] Eosinophils % (AUTO) 3 % 1-5 Normal (applies to non-num carolann results) [facility] Basophils % (AUTO) 1 % 0-1 Normal (applies to non-numer ic results) [facility] Imm Grans# (AUTO) 0.0-0.5 Normal (applies to non-numeri c results) [facility] Neutrophils # (AUTO) 1.5-8.1 Above high normal [facility] Lymphocytes # (AUTO) 1.0-3.1 Above high normal [facility] Monocytes # (AUTO) 0.2-1.3 Normal (applies to non-numer ic results) [facility] Eosinophils# (AUTO) 0.0-0.5 Normal (applies to non-nume margie results) [facility] Basophils # (AUTO) 0.0-0.1 Normal (applies to non-numer ic results) [facility] ID Date Data Source [id number] 07/19/2020 04:12:51 PM EDT [facility] TRANSVAGINAL 56149ANLEH RESULTInterpr eted by:Sully Thakkar MDINDICATION: 30-year-old female status post and IUD placement approximately 6 weeks ago.Comparison: 12/11/2019 OB ultrasound. No prior non-OB pelvic imaging available for comparison at the time of dictation.The uterus appears hypoechoic and measures at least 9.3 x 5.9 x 4.6 cm with a 3 mm thick endometrial stripe. An IUD lies within the endometrial canal. No fluid seen within the cul-de-sac. Bowel gas obscures bilateral adnexa.IMPRESSION:IUD lies within the endometrial canal. The ovaries are not visualized. Examination is incomplete. Consider follow-up pelvic cross-sectional imaging such as MRI for further evaluation as clinically indicated.This document has been electronically signed by Lizandro Fitzpatrick MD on 07/19/2020 4:10 PM Name Value Range Interpretation Code Description Data Estella rce(s) Supporting Document(s) ID Date Data Source [id number] 07/20/2020 12:52:44 PM EDT [facility] Cmnt XXX-Imp : NoneMicroorganism XXX Cult : Egg Grader-Mediated Amplification is NEGATIVE for Trichomonas vaginalis. Name Value Range Interpretation Code Description Data Estella rce(s) Supporting Document(s) ID Date Data Source [id number] 07/16/2020 10:33:46 PM EDT [facility] Cmnt XXX-Imp : NoneGram Stn XXX : No WBC's SeenNegative for bacterial vaginosis. Name Value Range Interpretation Code Description Data Estella rce(s) Supporting Document(s) ID Date Data Source [id number] 07/16/2020 08:51:38 PM EDT [facility] Cmnt XXX-Imp : NoneKOH Prep XXX : No yeast or fungal elements seen Name Value Range Interpretation Code Description Data Estella rce(s) Supporting Document(s) ID Date Data Source [id number] 07/16/2020 01:55:46 PM EDT [facility] Name Value Range Interpretation Code Description Data Estella rce(s) Supporting Document(s) Progress Note [facility] [id number] m [file] [id number] ID Date Data Source [id number] 06/24/2020 01:20:37 PM EDT [facility] Measurements & CalculationsHeight: 64 inches (5 ft. 4 in.) 162.56 cm Weight: 271 pounds 123.18 kg Body Mass Index (BMI): 46.69BMI Interpretation: Morbidly ObeseBody Surface Area (BSA): 2.23Weight Management Education Done (Nutrition/Physical Activity)Vital SignsTemperature: 98.1F 36.72C tympanic Pulse Rate: 71 beats/minuteRespiratory Rate: 18 respirations/minuteBlood Pressure: 126/87 left arm sitting automaticO2 Saturation: 98% Vital Signs performed by: Siena Workman LPN, June 24, 2020 1:21 PMVital Signs performed by: Jose Maria LEDEZMA, June 24, 2020 1:44 PMAdult Questionnaire1) Does the patient have a long-term health problem with heart disease, lung disease, asthma, kidney disease, metabolic disease (e.g., diabetes), anemia, or other blood disorder? No2) Does the patient have allergies to medications, food, a vaccine component, or latex? No3) Does the patient have cancer, leukemia, AIDS, or any other immune system problem? No4) Does the patient live with or expect to have close contact with a person whose immune system is severely compromised and who must be in protective isolation (e.g., an isolation room of a bone marrow transplant unit)? No5) Does the patient take cortisone, prednisone, other steroids, or anticancer drugs, or has the patient had radiation treatments? No6) During the past year, has the patient received a transfusion of blood or blood products, or been given immune (gamma) globulin or an antiviral drug? No7) For women: Is the patient or is there a chance she could become during the next month? No8) Has the patient ever had a serious reaction to a vaccine in the past? No9) Has the patient had a seizure or a brain or other nervous system problem? No10) Has the patient received any vaccinations in the past 4 weeks? No11) Is the patient older than age 49 years? No12) Is the patient sick today? No13) Vaccine info rmation given and explained to patient? YesVaccines Administered/Entered:Vaccination Group: TdapSeries: 1Vaccination: Boostrix - AdultMfr / Lot# / Exp.Date: IntelligentMDx / 2kk22Amt. Given / Route / Site: 0.5 mL / IM / Right DeltoidNDC / CVX: [id number] / 115Administered Date: 06/24/2020 14:05VFC Eligibility: Not VFC EligibleVIS Date: 02/11/2020VIS Given / VIS Given On: Yes / 06/24/2020Comments: Administered by: Siena Workman LPN Initial Intake Information From: patientRoom #: 1Infectious Disease / Travel ScreeningRecent travel for you or any close contacts? NoHave you had any close contact with anyone diagnosed with or under investigation for COVID-19 (coronavirus)? NoFever? NoRespiratory symptoms: cough, cold, congestion, shortness of breath, difficulty breathing? NoLoss of sm ell? NoLoss of taste? NoSmoking, Tobacco, Vaping or Smoke Exposure StatusSmoke Status: former smokerTobacco Use: NoDo you vape? NoPassive Smoke Exposure: NoMenstrual HistoryComments: breastfeedingHealthcare HistorySince your last office visit...Have you been to an emergency room (ER) or urgent care clinic? Yes - openedHave you seen another healthcare provider? Yes - psych,Have you seen a dentist? Yes - NOCOIntake performed by: Siena Workman LPN, June 24, 2020 1:22 PMRate Your HealthIn general, would you say your health is? PoorPain AssessmentAre you currently having any pain which... You would like your provider to address? No Affects your activity level? NoDepression Screening - PHQ-2Over the last two weeks, have you... Had little interest or pleasure in doing things? Nearly every day Been feeling down, depressed, or hopeless? Nearly every day PHQ-2 Score: 6Anxiety Screening - NADEGE- 2Over the last two weeks, have you been... Feeling nervous, anxious, or on edge? Nearly every day Unable to stop or control worrying? Nearly every day NADEGE-2 Score: 6Food InsecurityWithin the past year...Did you worry whether your food would run out before you got money to buy more? NoWas there a time when the food you bought didn't last and you didn't have money to get more? NoGeneralized Anxiety Disorder 7-Item Screening (NADEGE-7)Answer Guide:0 = Not at all1 = Several days2 = Over half the days3 = Nearly every dayOver the last 2 weeks, how often have you been bothered by the following problems?Feeling nervous, anxious, or on edge: 3Not being able to stop or control worryinWorrying too much about different things: 3Trouble relaxinBeing so restless that it's hard to sit still: 3Becoming easily annoyed or irritable: 3Feeling afraid as if something awful might happen: 3Answer Guide:0 = Not difficult at all1 = Somewhat difficult2 = Very difficult3 = Extremely difficultHow difficult have these made it for you to do your work, take care of things at home, or get along with other people? 3GAD-7 Screening Results NADEGE-2 Score: 6GAD-7 Score: 21Functional Impairment: Extremely difficultRecommendation: Severe anxietyPHQ-9 1. Over the last 2 weeks, patient reports the following frequency of symptoms: a. Little interest or pleasure in doing things -Nearly every day b. Feeling down, depressed, or hopeless -Nearly every day c. Trouble falling asleep, staying asleep, or sleeping too much -Nearly every day d. Feeling tired or having little energy -Nearly every day e. Poor appetite or overeating -Nearly every day f. Feeling bad about yourself, feeling that you are a failure, or feeling that you have let yourself or your family down -Nearly every day g. Trouble concentrating on things such as reading the newspaper or watching television -Nearly every day h. Moving or speaking so slowly that other people could have noticed. Or being so fidgety or restless that you have been moving around a lot more than usual - Nearly every day i. Thinking that you would be better off or that you want to hurt yourself in some way -Not at all2. If you checked off any problems, how difficult have these problems made it for you to do your work, take care of things at home, or get along with other people? -Extremely DifficultToday's PHQ-9 Results Score: 24 Severity: Severe Diagnosis Recommendation: Major Depression Functional Impairment: Extremely DifficultToday's Follow-Up Action Depression follow-up done. Follow-Up Action: Scheduled with Psychiatry - existing carePRAPARE Sociodemographic Characteristics Race: Black or Ethnicity: Not or Preferred Language: EnglishFamily and Home Address: [place] [address] [address] [place] [address] What is your housing situation today? I have housing Are you worried about losing your housing? NoMoney and Resources What is the highest level of school that you have finished? bachelor's degree Employed? No Are you seeking work? No Insurance: Managed Care FidelisIn the past year, have you or any family members you live with been unable to get any of the following when it was really needed? Denies Insecurity: food, utilities, clothing, child care assistant, phone, legal services, otherWithin the past year did you worry whether your food would run out before you got money to buy more? NoWithin the past year was there a time when the food you bought didn't last and you didn't have money to get more? NoIn the past year, have you had trouble affording costs associated with health insurance (such as deductibles, co-payments, etc.)? NoScreening, Brief Intervention, & Referral to Treatment (SBIRT)Pre-Screening Questions How many times have you have 4 or more drinks in a day? 0How many times have you used an illegal drug or used a prescription medication for a non-medical reason? 0Performed by: Siena Workman LPN, June 24, 2020 1:23 PMPatient History Medical History:AsthmaDepressionSeizure disorder s/p MVASLESurgical History: section f6Cdstsuxecsi D&CAppendectomyTonsillectomyGallbladderFamily History:Hypertension (Father)Diabetes (Father)Social/Personal History: Chief Complaintannual examHistory of Present Illness (HPI)29 yo female [facility] care and for annual PE.Pt delivered 05/31/2020 at 35 weeks gestation, baby boy via c- section for knot in umbilical cord. Pt needs Tdap today, was unable to have while due to early delivery. Currently , no concerns. Pt would like incision looked at, states there is a small area that looks open. No drainage. HPI performed by: Jose Maria LEDEZMA, June 24, 2020 1:45 PMTransitions of Care InboundProblem ReviewProblem List was reviewed and/or updated during this visit.Medication Reconciliation & ReviewMedication List was reviewed and/or updated during this visit, including review of any qbul-fet-cklenng medications, herbal therapies, and/or supplements.Allergy ReviewAllergy List was reviewed and/or updated during this visit.Adult Preventive CareLabs/Meds/Other Counseling-Nutrition and Physical Activity:BMI Interpretation: Morbidly Obese (06/24/2020) Counseling: Done (06/24/2020) Physical Activity: Done (06/24/2020)Review of Systems General: Denies loss of appetite, chills, dizziness, fatigue, fever, headache, feeling ill. Eyes: Denies blurring of vision, double vision. Ears/Nose/Throat: Denies earache, decreased hearing, nasal congestion, sore throat, swollen glands. Cardiovascular: Denies chest pain, palpitations, feeling faint, peripheral edema, elevated blood pressure. Respiratory: Denies cough, difficulty breathing, shortness of breath, wheezing. Gastrointestinal: Denies nausea, vomiting, diarrhea, constipation, pain or discomfort. Genitourinary: Denies pain with urination, burning with urination, blood in urine, pelvic pain. Skin: Complains of see HPI. Denies rash, redness, suspicious lesions. Neurologic: Denies weakness, numbness/tingling, seizures, feeling faint. Psychiatric: Complains of depression, anxiety. follows with behavioral health outpatientPhysical ExamGeneral Appearance: well nourished, well hydrated, no acute distressEyes, External: conjunctivae and lids normal, EOMIExternal Ears: normal, no lesions or deformitiesHearing: grossly intactOtoscopy: canals clear, tympanic membranes intact, no fluid, light reflex intact bilaterallyExternal Nose: normal, no lesions or deformitiesNasal: mucosa, septum, and turbinates normal, nares patentLips/Teeth/Gums: no gingival inflammation, no labial lesionsPharynx: tongue normal, posterior pharynx without erythema or exudate, no thrush/aphthous ulcerNeck: supple, no masses, trachea midline, full range of motion of neckThyroid: no nodules, masses, tenderness, or enlargementRespiratory, Auscultation: clear to auscultation bilaterally; no rales, rhonchi, or wheezesRespiratory, Effort: no intercostal retractions or use of accessory musclesCardiovascular, Auscultation: S1, S2 audible; no murmur, rub, or gallop; RRRPeripheral Circulation: no clubbing, cyanosis, edema, or varicositiesAbdomen: soft, non-tender, no masses, bowel sounds normal, well healed incision, small <1cm area where perhaps there was prior dehiscence but now closed, no drainage or erythema, no evidence of herniaGait & Station: normalSkin, Inspection: no rashes, lesions, or ulcerationsOrientation: oriented to time, place, and personMood & Affect: no depression, anxiety, or agitationJudgment & Insight: intactCare Management Plan Transitions of CareInboundRate Your HealthIn general, would you say your health is? PoorAssessment & Plan Problems:Added: Encounter for general adult medical examination without abnormal findings (FIJ48-T74.00) Assessment: Instructions: Recommend annual medical appointments. Recommend routine dental and vision care. Recommend influenza vaccines annually and tetanus boosters every 10 years. Release of information form(s) to obtain medical records from your prior providers(s) has been signed in the office today.Encounter for care and examination of lactating mother (ICD-V24.1) (ASH74-E97.1) Assessment: Instructions: Healthy diet, adequate hydration, while .Encounter for immunization (ICD-V05.9) (EFC34-Z83) Assessment: Instructions: Tdap today.MORBID OBESITY (ICD-278.01) (MLQ84-B71.01) Assessment: Instructions: Recommend healthy lifestyle modification. Encourage portion control, healthy food choices, and increasing routine physical activity. Recommendation is for 150 minutes throughout the week of cardiovascular exercise.BMI 45.0-49.9 (ICD-V85.42) (RZV25-L94.42) Assessment: Instructions: As above.Patient Instructions/Care Plan: Encounter for general adult medical examination without abnormal findings: Recommend annual medical appointments. Recommend routine dental and vision care. Recommend influenza vaccines annually and tetanus boosters every 10 years. Release of information form(s) to obtain medical records from your prior providers(s) has been signed in the office today.Encounter for care and examination of lactating mother: Healthy diet, adequate hydration, while .Encounter for immunization: Tdap today.MORBID OBESITY: Recommend healthy lifestyle m odification. Encourage portion control, healthy food choices, and increasing routine physical activity. Recommendation is for 150 minutes throughout the week of cardiovascular exercise.BMI 45.0-49.9: As above. Plan developed in collaboration with patient and/or familyMedications:PARAGARD INTRAUTERINE COPPER INTRAUTERINE INTRAUTERINE DEVICEKEPPRA 1000 MG ORAL TABLETCLONAZEPAM 0.5 MG ORAL TABLETMETFORMIN HCL 500 MG ORAL TABLETSEROQUEL 50 MG ORAL TABLETFLUOXETINE HCL 20 MG ORAL TABLETALBUTEROL SULFATE (2.5 MG/3ML) 0.083% INHALATION NEBULIZATION SOLUTIONHEPARIN SODIUM (PORCINE) 5000 UNIT/ML INJECTION SOLUTIONESOMEP-EZS 20 MG ORAL KITDOK 100 MG ORAL CAPSULECALCIUM 500 + D TABLETACETAMINOPHEN 325 MG ORAL TABLETNAPROXEN-ESOMEPRAZOLE 500-20 MG ORAL TABLET DELAYED RELEASEAFEDITAB CR 30 MG ORAL TABLET EXTENDED RELEASE 24 HOURSM VITAMIN D3 25 MCG (1000 UT) ORAL TABLETCETIRIZINE HCL 10 MG ORAL TABLETCEPHALEXIN 500 MG ORAL CAPSULEBUTALBITAL-ACETAMINOPHEN 50-325 MG ORAL TABLETMedication Changes:Added: BUTALBITAL-ACETAMINOPHEN 50-325 MG ORAL TABLET- one daily as neededCEPHALEXIN 500 MG ORAL CAPSULE-take one capsule by mouth three times a dayCETIRIZINE HCL 10 MG ORAL TABLET-take one tablet by mouth dailySM VITAMIN D3 25 MCG (1000 UT) ORAL TABLET-take one and one half tablets by mouth every dayAFEDITAB CR 30 MG ORAL TABLET EXTENDED RELEASE 24 HOUR-take one tablet by mouth dailyNAPROXEN-ESOMEPRAZOLE 500-20 MG ORAL TABLET DELAYED RELEASE-take one tablet by mouth twice a day with foolACETAMINOPHEN 325 MG ORAL TABLET-take one tablet by mouth as neededCALCIUM 500 + D TABLET-take one tablet by mouth dailyDOK 100 MG ORAL CAPSULE-take one tablet by mouth dailyESOMEP-EZS 20 MG ORAL KIT-take one capsule by mouth kaitlin morning before breakfast.HEPARIN SODIUM (PORCINE) 5000 UNIT/ML INJECTION SOLUTION-inject two mililiters contents of 2 vials under skin twice a day as directedALBUTEROL SULFATE (2.5 MG/3ML) 0.083% INHALATION NEBULIZATION SOLUTIONFLUOXETINE HCL 20 MG ORAL TABLET-take 40mg by mouth dailySEROQUEL 50 MG ORAL TABLET-take one tablet by mouth twice dailyMETFORMIN HCL 500 MG ORAL TABLET-take one tablet by mouth daily with breakfast.CLONAZEPAM 0.5 MG ORAL TABLET-take one tablet by mouth three times dailyKEPPRA 1000 MG ORAL TABLET-take 1500 mg by mouth two times dailyPARAGARD INTRAUTERINE COPPER INTRAUTERINE INTRAUTERINE DEVICEAllergies:* TRUE LATEX (Critical)PLAQUENIL (Severe)* LOVANOX (Severe)* FINERGAN (Severe)Orders:Tdap (5) [CPT-00742] 56423 - Immo Admin (over 19 yrs), 1st Vaccine [CPT-79146] 78015 - Immo Admin (over 19 yrs), Addtl Vaccine(s) [CPT-70417] Preventive, New, (18-39) [CPT-70700] Follow-Up Return to clinic: in 90 days for follow up Name Value Range Interpretation Code Description Data Estella rce(s) Supporting Document(s) ID Date Data Source [id number] 06/17/2020 04:03:40 PM [facility] Name Value Range Interpretation Code Description Data Estella rce(s) Supporting Document(s) Progress Note [facility] [id number] [file] ID Date Data Source [id number] 06/17/2020 01:35:00 PM EDT [facility] DATE OF EXAM: 06/17/2020CT ABDOMEN AND P ABDULLAHI WITH CONTRAST CLINICAL HISTORY: PAIN-ABDOMINAL STATUS POST COMPARISON: None. CONTRAST: 100 mL Omnipaque 350 TECHNIQUE: Axial CT images were obtained of the abdomen and pelvis with contrast. Additional coronal and sagittal reformatted images were obtained. One or more of the following dose reduction techniques were utilized in effectively lowering the radiation dose for this examination: Automated Exposure Control, Adjustment of the mA and/or kV according to patient size, or Iterative reconstruction. FINDINGS: Lung Bases: Unremarkable. Liver: Mildly enlarged at 21.9 cm craniocaudal. No focal lesions. Bile Ducts: Prominence of the common bile duct up to 8 mm, nonspecific in the setting of cholecystectomy.Gallbladder: Surgically absent. Pancreas: Unremarkable.Spleen: Unremarkable.Adrenals: Unremarkable. Kidneys/Ureters: Unremarkable.Bladder: Unremarkable. Bowel: No dilation or thickening. Suture material seen related to prior appendectomy. Peritoneum/Retroperitoneum: Unremarkable. Reproductive Organs: The uterus is enlarged, in keeping with state. There is an intrauterine device positioned at the lower uterine segment. It lies approximately 3.3 cm from the fundus. The endometrium/canal is thickened up to 3.3 cm. No gas. Mild stranding anterior to the uterus is likely postoperative. No adnexal mass. Gonadal veins are patent. Lymph Nodes: No adenopathy.Vessels: Unremarkable. Soft Tissues: Postsurgical changes in the anterior pelvic wall. Small fat-containing umbilical hernia.Bones: Unremarkable. IMPRESSION: 1. Changes status post . Endometrial thickening up to 3.3 cm is nonspecific, but correlate for any signs of endometritis.2. Intrauterine device positioned in the lower uterine cavity.3. Mild hepatomegaly. Professional interpretation performed at [facility] .End of diagnostic report for accession: [id number] Interpreted: Ann Marie Ackerman MDTranscribed: 06/17/2020 01:25 PMSigned: 06/17/2020 01:35 PM Ann Marie Ackerman MD [facility] # [id number] BILL # [id number] Name Value Range Interpretation Code Description Data Estella e(s) Supporting Document(s) ID Date Data Source [id number] 06/17/2020 12:44:16 PM EDT [facility] Name Value Range Interpretation Code Description Data Estella e(s) Supporting Document(s) SODIUM 142 mmol/L (136-145) [facility] POTASSIUM 4.1 mmol/L (3.6-5.2) [facility] CHLORIDE 110 mmol/L (100-108) H [facility] CO2 24 mmol/L (22-31) [facility] ANION GAP 8 mmol/L (7-16) [facility] UREA NITROGEN 9 mg/dL (7-24) [facility] CREATININE 0.70 mg/dL (0.60-1.00) [facility] BUN/CREAT RATIO 12.9 RATIO (10.0-20.0) [facility] GLUCOSE 87 mg/dL (70-99) [facility] CALCIUM 8.8 mg/dL (8.4-10.2) [facility] GFR >60 ml/min/1.73m2 (>59) [facility] GFR ( AMER) >60 ml/min/1.73m2 (>59) [facility] GFR INTERPRETATION [facility] --NORMAL KIDNEY FUNCTION OR MILD DISEASE - GFR >OR= 60CHRONIC KIDNEY DISEASE - GFR 15 - 59RENAL FAILURE - GFR <15 Est. GFR calculation based on the MDRDstudy equation, which assumes a steadystate for creatinine. Est. GFR should notbe used for medication dosing. ID Date Data Source [id number] 06/17/2020 12:19:54 PM EDT [facility] Name Value Range Interpretation Code Description Data Estella rce(s) Supporting Document(s) WBC 11.9 10*3/uL (4.1-11.0) H [facility] RBC 4.52 10*6/uL (4.00-5.40) [facility] HGB 11.6 g/dL (12.0-16.0) L [facility] HCT 36.9 % (36.0-47.0) [facility] MCV 81.6 fL (80.0-95.0) [facility] MCH 25.6 pg (27.0-32.0) L [facility] MCHC 31.4 g/dL (32.0-36.0) L [facility] RDW 14.8 % (10.5-14.5) H [facility] PLT 282 10*3/uL (150-450) [facility] MPV 8.3 fL (7.1-10.7) [facility] NEUT % 65.5 % (35.0-75.0) [facility] LYMPH % 25.6 % (16.0-52.0) [facility] MONO % 4.0 % (0.0-8.0) [facility] EOS % 4.2 % (0.0-5.0) [facility] BASO % 0.7 % (0.0-4.0) [facility] NEUT # 7.8 10*3/uL (1.8-7.7) H [facility] LYMPH # 3.1 10*3/uL (1.2-4.8) [facility] MONO # 0.5 10*3/uL (0.0-0.8) [facility] Eosinophils [#/volume] in Blood by Automated count 0.5 10*3/uL (0.0-0 .5) [facility] BASO # 0.1 10*3/uL (0.0-0.2) [facility] ID Date Data Source [id number] 06/17/2020 12:14:16 PM EDT [facility] Name Value Range Interpretation Code Description Data Estella rce(s) Supporting Document(s) HOLD TUBE PINK [facility] ID Date Data Source [id number] 06/17/2020 12:50:58 PM EDT [facility] Name Value Range Interpretation Code Description Data Estella rce(s) Supporting Document(s) URINE WBC (0-5) [facility] URINE RBC (0-2) [facility] EPITHELIAL CELLS 2+ [HPF] [facility] BACTERIA 3+ [HPF] [facility] MUCUS 1+ [HPF] [facility] HYALINE CASTS [facility] WBC CAST [facility] ID Date Data Source [id number] 06/17/2020 12:20:14 PM EDT [facility] Name Value Range Interpretation Code Description Data Estella rce(s) Supporting Document(s) COLOR [facility] APPEARANCE [facility] SPEC GRAV URINE 1.014 (1.003-1.030) [facility] PH URINE 5.5 (5.0-7.5) [facility] LEUK ESTERASE (NEG) [facility] CRITERIA FOR CULTURE NOT MET.CULTURE CAN BE ADDED WITHIN 36 HOURS OFCOLLECTION. NITRITE URINE (NEG) [facility] PROTEIN URINE (NEG) [facility] GLUCOSE URINE (NEG) [facility] KETONE URINE (NEG) [facility] UROBILINOGEN 0.2 mg/dL (0-1.0) [facility] BILIRUBIN URINE (NEG) [facility] BLOOD/HGB URINE 2+ (NEG) A [facility] ID Date Data Source [id number] 06/12/2020 04:37:00 PM EDT [facility] DATE OF EXAM: 06/12/2020EXAMINATION:Ultr asound anterior body wall INDICATION:CELLULITIS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 (1.003-1.030) [facility] PH URINE 6.0 (5.0-7.5) [facility] LEUK ESTERASE (NEG) [facility] CRITERIA FOR CULTURE NOT MET.CULTURE CAN BE ADDED WITHIN 36 HOURS OFCOLLECTION. NITRITE URINE (NEG) [facility] PROTEIN URINE (NEG) [facility] GLUCOSE URINE (NEG) [facility] KETONE URINE (NEG) [facility] UROBILINOGEN 0.2 mg/dL (0-1.0) [facility] BILIRUBIN URINE (NEG) [facility] BLOOD/HGB URINE (NEG) [facility] ID Date Data Source [id number] 05/28/2020 11:35:41 AM EDT [facility] Name Value Range Interpretation Code Description Data Estella rce(s) Supporting Document(s) Progress Note [facility] [id number] lbm [file] [id number]= ID Date Data Source [id number] 05/28/2020 09:57:36 AM EDT [facility] Name Value Range Interpretation Code Description Data Estella rce(s) Supporting Document(s) Color of Urine [facility] Clarity of Urine [facility] Glucose [Mass/volume] in Urine by Test strip [facility] Bilirubin.total [Presence] in Urine by Test strip [facility] Ketones [Mass/volume] in Urine by Test strip [facility] Specific gravity of Urine by Test strip 1.020 1.005-1.025 [facility] Hemoglobin [Presence] in Urine by Test strip [facility] pH of Urine by Test strip 6.0 5.0-8.0 [facility] Protein [Mass/volume] in Urine by Test strip Negative [facility] Urobilinogen [Units/volume] in Urine by Test strip 0.2 {Ehrlich_U}/ dL 0.2-1.0 [facility] Nitrite [Presence] in Urine by Test strip [facility] Leukocyte esterase [Presence] in Urine by Test strip Negat [facility]ocrates [facility] ID Date Data Source [id number] 05/25/2020 06:28:00 PM EDT [facility] DATE OF EXAM: 05/25/2020EXAM: Ultrasound obstetric. INDICATION: Abdominal pain. COMPARISON: 05/04/2020. FINDINGS: Slightly limited examination due to bedside technique. Single intrauterine gestation of 34 weeks and one day. Cardiac activity and movement are observed. heart rate is 166 BPM. Subjectively normal appearing amount of amniotic fluid. ADEN 12.7 cm (50th percentile 14.2 cm, 5th percentile 8.1 cm). No evidence of subchorionic bleed. This examination was not performed for the evaluation of structures. The grade 2 placenta is located anteriorly. No evidence of placental abruption or previa. Difficulty assessing for proximity to the cervical os due to technical limitations from bedside technique. The cervix is not well-visualized. The maternal uterus is unremarkable. IMPRESSION: Slightly limited examination due to bedside technique. Single live intrauterine gestation of 34 weeks one day. Professional interpretation performed at [facility] [phone].End of diagnostic report for accession: [id number] Interpreted: Benedict Dickens MDTranscribed: 05/25/2020 06:22 PMSigned: 05/25/2020 06:28 PM Benedict Dickens MD [facility] # [id number] BILL # [id number] Name Value Range Interpretation Code Description Data Estella rce(s) Supporting Document(s) ID Date Data Source [id number] 05/25/2020 05:52:59 PM EDT [facility] SPEC EXP DATE 05/28/2020PATI ENT ABO/Rh O POSITIVEANTIBODY SCREEN NEGATIVETESTING SITE PERFORMED AT [address] [place] [address] BANK COMMENT BLOOD TYPE CONFIRMED. Name Value Range Interpretation Code Description Data Estella rce(s) Supporting Document(s) ID Date Data Source [id number] 05/25/2020 05:25:59 PM EDT [facility] Name Value Range Interpretation Code Description Data Estella rce(s) Supporting Document(s) TOTAL PROTEIN 7.6 g/dL (6.4-8.2) [facility] ALBUMIN 2.9 g/dL (3.5-4.6) [facility] GLOBULIN 4.7 g/dL (2.7-4.3) [facility] ALB/GLOB RATIO 0.6 RATIO [facility] BILIRUBIN,TOTAL 0.3 mg/dL (0.0-1.0) [facility] PLEASE NOTE:Total bilirubin results may be falselyelevated in patients taking Eltrombopag. BILIRUBIN,CONJUGATED 0.1 mg/dL (0.0-0.3) [facility] BILIRUBIN,UNCONJ. 0.2 mg/dL (0.0-0.7) [facility] ALKALINE PHOSPHATASE 263 U/L (45-117) [facility] AST (SGOT) 32 U/L (11-39) [facility] ALT (SGPT) 50 U/L (12-78) [facility] ID Date Data Source [id number] 05/25/2020 05:25:59 PM EDT [facility] Name Value Range Interpretation Code Description Data Estella rce(s) Supporting Document(s) LDH 146 U/L (84-246) [facility] ID Date Data Source [id number] 05/25/2020 05:25:20 PM EDT [facility] Name Value Range Interpretation Code Description Data Estella rce(s) Supporting Document(s) URIC ACID 5.4 mg/dL (2.6-6.0) [facility] ID Date Data Source [id number] 05/25/2020 05:25:20 PM EDT [facility] Name Value Range Interpretation Code Description Data Estella rce(s) Supporting Document(s) SODIUM 138 mmol/L (136-145) [facility] POTASSIUM 3.4 mmol/L (3.6-5.2) [facility] CHLORIDE 108 mmol/L (100-108) [facility] CO2 21 mmol/L (22-31) [facility] ANION GAP 9 mmol/L (7-16) [facility] UREA NITROGEN 7 mg/dL (7-24) [facility] CREATININE 0.62 mg/dL (0.60-1.00) [facility] BUN/CREAT RATIO 11.3 RATIO (10.0-20.0) [facility] GLUCOSE 128 mg/dL (70-99) [facility] CALCIUM 9.3 mg/dL (8.4-10.2) [facility] GFR >60 ml/min/1.73m2 (>59) [facility] GFR ( AMER) >60 ml/min/1.73m2 (>59) [facility] GFR INTERPRETATION [facility] --NORMAL KIDNEY FUNCTION OR MILD DISEASE - GFR >OR= 60CHRONIC KIDNEY DISEASE - GFR 15 - 59RENAL FAILURE - GFR <15 Est. GFR calculation based on the MDRDstudy equation, which assumes a steadystate for creatinine. Est. GFR should notbe used for medication dosing. ID Date Data Source [id number] 05/25/2020 05:19:58 PM EDT [facility] Name Value Range Interpretation Code Description Data Estella rce(s) Supporting Document(s) PT 10.5 s (9.2-11.9) [facility] PERFORMED AT [address] [address] INR 1.00 [facility] SUGGESTED THERAPEUTIC RANGES USING INR F ORSTABILIZED ANTICOAGULATED PATIENTS:STANDARD DOSE THERAPY INR 2.0-3.0 DVT, PE, PREVENT DVT OR EMBOLISMHIGH DOSE THERAPY INR 2.5-3.5 PREVENT EMBOLISM FROM MECHANICAL HEART VALVE ID Date Data Source [id number] 05/25/2020 05:10:50 PM EDT [facility] Name Value Range Interpretation Code Description Data Estella rce(s) Supporting Document(s) WBC 16.5 10*3/uL (4.1-11.0) [facility] RBC 4.62 10*6/uL (4.00-5.40) [facility] HGB 11.8 g/dL (12.0-16.0) [facility] HCT 37.2 % (36.0-47.0) [facility] MCV 80.5 fL (80.0-95.0) [facility] MCH 25.4 pg (27.0-32.0) [facility] MCHC 31.6 g/dL (32.0-36.0) [facility] RDW 13.9 % (10.5-14.5) [facility] PLT 299 10*3/uL (150-450) [facility] MPV 9.0 fL (7.1-10.7) [facility] NEUT % 75.4 % (35.0-75.0) [facility] LYMPH % 17.5 % (16.0-52.0) [facility] MONO % 6.0 % (0.0-8.0) [facility] EOS % 0.7 % (0.0-5.0) [facility] BASO % 0.4 % (0.0-4.0) [facility] NEUT # 12.5 10*3/uL (1.8-7.7) [facility] LYMPH # 2.9 10*3/uL (1.2-4.8) [facility] MONO # 1.0 10*3/uL (0.0-0.8) [facility] Eosinophils [#/volume] in Blood by Automated count 0.1 10*3/uL (0.0-0 .5) [facility] BASO # 0.1 10*3/uL (0.0-0.2) [facility] ID Date Data Source [id number] 05/25/2020 02:51:47 PM EDT [facility], PCName: Winsome OswaldDOB: 1990Provider: Abdoulaye Guerrero: 05/25/2020 AssessmentHistory of Present Illness:Ms. Akers is a very pleasant 29 year year old female who presents for follow up after ankle fracture 3 weeks ago. She has been WBAT in the boot and noting foot pain and lateral border of the foot numbness. She has not had her c section yet. She reports pain with WB. She is using a wheelchair and a walker at times. Is going to LD today due to issues with the . Has Lupus which was flaring. Physical Examination:General: Patient appears well developed, well nourished, and in no acute distress. Patient is oriented to person, place, and time. The patient's mood is appropriate to situation. The patient's coordination is normal.Body Habitus: Morbidly Obese Gait: The patient walks with antalgic gait.Skin: Skin appears to be intact in both upper and lower extremities. There does not appear to be any ulceration or other non-healing wounds.R Ankle/footStrength: limited by painTenderness to palpation: distal fibula and midfootROM: reducedStability: normalCrepitation: noneEffusion: mild foot/ankl edecreased sensation in superficial peroneal. able to flex/extend toes.Radiographs:3views of the right foot and ankle were ordered, obtained, and interpreted on 05/25/2020 with the patient. There is a minimally displaced oblique distal fibula fracture without displacement. There foot is normalAssessment and Plan:29F with nonoperative distal fibula fracture minimally displaced. It is unclear what is causing the foot numbness. This may be positional from the boot.WBATCWBAnticoagulation per OB TeamMay start PT if she wants to pending delivery/OB recovery.f/u 5 weeks with repeat XR Plan 1. X-Ray I Ankle - 3 views (XRays were ordered, obtained and interpreted today in the office. Indication: pain/dysfunction.); Status:Complete; Done: [id number] Perform:SOS28; Due:49Tkk4762; Last Updated By:Gabriella Jean; 05/25/2020 1:59:53 PM;Ordered; For:Right ankle pain; Ordered By:Richard Guerrero;Weight Bearing Status : Weight bearingLaterality: : Right 2. X-Ray I Foot - 3 views (XRays were ordered, obtained and interpreted today in the office. Indication: pain/dysfunction.); Status:Complete; Done: 51Knp1029 Perform:SOS28; Due:65Ywe2034; Last Updated By:Gabriella Jean; 05/25/2020 2:24:46 PM;Ordered; For:Right ankle pain; Ordered By:Richard Guerrero;Weight Bearing Status : Weight bearingLaterality: : Right 3. Work Note (SOS) Treatment Treatment Status: Complete Done: [id number] Ordered;For: Health Maintenance; Ordered By: Richard Guerrero Performed: Due: 35Dsg0217; Last Updated By: Kristina Cerda; 05/25/2020 2:44:19 PMSeen Today for Evaluation and Treatment : The patient was seen today in the office for evaluation and treatment. Signatures Electronically signed by : Richard Guerrero M.D.; May 25 2020 2:51PM EST (Author) Name Value Range Interpretation Code Description Data Estella rce(s) Supporting Document(s) ID Date Data Source [id number] 05/18/2020 11:47:42 PM EDT [facility] Name Value Range Interpretation Code Description Data Estella rce(s) Supporting Document(s) POC GLUCOSE 107 mg/dL (70-99) [facility] PERFORMED BY CLINICAL STAFF ID Date Data Source [id number] 05/18/2020 05:48:57 PM EDT [facility] Name Value Range Interpretation Code Description Data Estella rce(s) Supporting Document(s) POC GLUCOSE 105 mg/dL (70-99) [facility] PERFORMED BY CLINICAL STAFF ID Date Data Source [id number] 05/18/2020 12:31:15 PM EDT [facility] Name Value Range Interpretation Code Description Data Estella rce(s) Supporting Document(s) POC GLUCOSE 131 mg/dL (70-99) [facility] PERFORMED BY CLINICAL STAFF ID Date Data Source [id number] 05/18/2020 07:32:27 AM EDT [facility] Name Value Range Interpretation Code Description Data Estella rce(s) Supporting Document(s) POC GLUCOSE 92 mg/dL (70-99) [facility] PERFORMED BY CLINICAL STAFF ID Date Data Source [id number] 05/18/2020 06:31:01 AM EDT [facility] SPEC EXP DATE 05/21/2020PATI ENT ABO/Rh O POSITIVEANTIBODY SCREEN NEGATIVETESTING SITE PERFORMED AT [address] [place] [address] BANK COMMENT BLOOD TYPE CONFIRMED. Name Value Range Interpretation Code Description Data Estella rce(s) Supporting Document(s) ID Date Data Source [id number] 05/17/2020 10:53:52 PM EDT [facility] Name Value Range Interpretation Code Description Data Estella rce(s) Supporting Document(s) POC GLUCOSE 130 mg/dL (70-99) [facility] PERFORMED BY CLINICAL STAFF ID Date Data Source [id number] 05/17/2020 05:57:16 PM EDT [facility] Name Value Range Interpretation Code Description Data Estella rce(s) Supporting Document(s) POC GLUCOSE 130 mg/dL (70-99) [facility] PERFORMED BY CLINICAL STAFF ID Date Data Source [id number] 07/08/2020 12:37:00 PM EDT [facility] [address] [place] [address] [place], [place] [address]XOBEXSQ NAME: WINSOME AKERSDATE OF : 1990REPORT: CONSULTATIONPATIENT NUMBER: [id number] STATUS: IPMEDICAL RECORD NUMBER: [id number]: [address] [place] [address] CONSULTATIONDATE OF CONSULTATION: 05/17/2020CHIEF COMPLAINT: Headaches of three days' duration.HISTORY OF PRESENT ILLNESS: A 29-year-old young woman who was in her 31stweek of that is uncomplicated and who carries a history of adiagnosis of migraine with aura that consists of photopsia headaches,trigger being stress, physical, mostly physical stress and who has been onvarious migraine prophylaxis agent such as Botox and more recently Ajovy,who also has a history of lupus with frequent exacerbations, recentlypossibly in the midst of one of these exacerbations triggered possibly by afall and ankle fracture three or four days ago and who has been with aheadache that is throbbing, bifrontal, associated with photo andphonophobia, some nausea. Neurology is consulted for management of theseheadaches. The patient reportedly also gives a history of generalizedtonic-clonic seizure dis order with last breakthrough seizure being in01/2020 during the beginning of her third trimester of and herKeppra medication dose was increased to 1500 mg p.o. b.i.d.PAST MEDICAL HISTORY:1. Possible lupus.2. Seizure disorder.3. Migraine with aura headaches.PAST SURGICAL HISTORY: C- sections.MEDICATIONS: She is on Keppra and prednisone.ALLERGIES: To Lovenox, Plaquenil, Pepcid, Phenergan, pork, banana, andlatex.REVIEW OF SYSTEMS: Denies any recent history of chest pain, decrease inexercise tolerance, shortness of breath, GI or symptoms. Remaining 10systems were reviewed and nega tive.SOCIAL HABITS: Does not smoke, drink any alcohol or use illicitsubstances.FAMILY HISTORY: Noncontributory.PHYSICAL EXAMINATION:Vital Signs: Blood pressure is 130/80, heart rate 80 per minute regular,respiratory rate 18, temperature 36.General Appearance: No acute distress.Head and ENT: No sinus tenderness, tenderness over skull or scalp.Neck: Supple. No adenopathy. No carotid bruits.Heart: Normal S1, S2.Lungs: Clear and resonant.Abdomen: Soft, no megaly.Extremities: No edema. Normal pulse. No clubbing. No cyanosis.Skin: No rash or lesions.Neurological: Alert and oriented x3. Normal speech, mentation, andmemory.Cranial nerves: Full visual muniz. Full extraocular movements. Nofacial paresis. No sensory abnormalities.Motor: Normal strength and tone.Sensory: Normal to all modalities.Cerebellar: Normal zjtqxf-cq-wcxr, rapid alternating movement. DTRs +2equal and symmetric in biceps, triceps, brachioradialis, patellar andAchilles deep tendon reflexes, bilateral flexor plantars.IMPRESSION:1. Status migrainosus in a patient with history of migraine with auraheadaches.Plan: Decadron 10 mg IV daily for three days, Reglan 10 mg IV q.3-4 h. ifno contraindication from Obstetrics.Hydration, analgesia including opiate analgesia if necessary, and Neurologywill follow on a regular basis.2. Generalized seizure disorder. Recommend to check Keppra metabolitelevel and adjust the dose accordingly especially with the patient had abreakthrough seizure at the beginning of her third trimester. Neurologywill follow on a regular basis.DICTATED BY: Ismael Miles, MDDictated: 0 05/17/2020 13:06DT: 05/17/2020 13:09Job #: [id number]: [facility] computer generated reports are notconfirmed or authenticated unless they are signed by the providerElectronically Authenticated by:ISMAEL SUAREZ MD On 07/08/2020 12:37 PM EDT Name Value Range Interpretation Code Description Data Estella rce(s) Supporting Document(s) ID Date Data Source [id number] 05/17/2020 03:17:36 PM EDT [facility] Name Value Range Interpretation Code Description Data Estella rce(s) Supporting Document(s) KEPPRA @ 25 ug/mL (5-30) [facility] ID Date Data Source [id number] 05/17/2020 06:41:37 AM EDT [facility] Name Value Range Interpretation Code Description Data Estella rce(s) Supporting Document(s) SODIUM 138 mmol/L (136-145) [facility] POTASSIUM 4.0 mmol/L (3.6-5.2) [facility] CHLORIDE 108 mmol/L (100-108) [facility] CO2 23 mmol/L (22-31) [facility] ANION GAP 7 mmol/L (7-16) [facility] UREA NITROGEN 7 mg/dL (7-24) [facility] CREATININE 0.56 mg/dL (0.60-1.00) [facility] BUN/CREAT RATIO 12.5 RATIO (10.0-20.0) [facility] GLUCOSE 122 mg/dL (70-99) [facility] CALCIUM 8.9 mg/dL (8.4-10.2) [facility] TOTAL PROTEIN 6.1 g/dL (6.4-8.2) [facility] ALBUMIN 2.5 g/dL (3.5-4.6) [facility] GLOBULIN 3.6 g/dL (2.7-4.3) [facility] ALB/GLOB RATIO 0.7 RATIO [facility] ALKALINE PHOSPHATASE 198 U/L (45-117) [facility] BILIRUBIN,TOTAL 0.2 mg/dL (0.0-1.0) [facility] PLEASE NOTE:Total bilirubin results may be falselyelevated in patients taking Eltrombopag. AST (SGOT) 11 U/L (11-39) [facility] ALT (SGPT) 30 U/L (12-78) [facility] GFR >60 ml/min/1.73m2 (>59) [facility] GFR ( AMER) >60 ml/min/1.73m2 (>59) [facility] GFR INTERPRETATION [facility] --NORMAL KIDNEY FUNCTION OR MILD DISEASE - GFR >OR= 60CHRONIC KIDNEY DISEASE - GFR 15 - 59RENAL FAILURE - GFR <15 Est. GFR calculation based on the MDRDstudy equation, which assumes a steadystate for creatinine. Est. GFR should notbe used for medication dosing. ID Date Data Source [id number] 05/17/2020 06:41:37 AM EDT [facility] Name Value Range Interpretation Code Description Data Estella rce(s) Supporting Document(s) LDH 113 U/L (84-246) [facility] ID Date Data Source [id number] 05/17/2020 06:41:37 AM EDT [facility] Name Value Range Interpretation Code Description Data Estella rce(s) Supporting Document(s) URIC ACID 4.9 mg/dL (2.6-6.0) [facility] ID Date Data Source [id number] 05/17/2020 06:17:54 AM EDT [facility] Name Value Range Interpretation Code Description Data Estella rce(s) Supporting Document(s) WBC 16.6 10*3/uL (4.1-11.0) [facility] RBC 3.94 10*6/uL (4.00-5.40) [facility] HGB 10.2 g/dL (12.0-16.0) [facility] HCT 31.7 % (36.0-47.0) [facility] MCV 80.4 fL (80.0-95.0) [facility] MCH 25.9 pg (27.0-32.0) [facility] MCHC 32.2 g/dL (32.0-36.0) [facility] RDW 13.9 % (10.5-14.5) [facility] PLT 228 10*3/uL (150-450) [facility] MPV 9.2 fL (7.1-10.7) [facility] ID Date Data Source [id number] 05/16/2020 01:38:17 PM EDT [facility] Name Value Range Interpretation Code Description Data Estella rce(s) Supporting Document(s) URIC ACID 5.4 mg/dL (2.6-6.0) [facility] ID Date Data Source [id number] 05/16/2020 01:38:17 PM EDT [facility] Name Value Range Interpretation Code Description Data Estella rce(s) Supporting Document(s) MAGNESIUM 2.2 mg/dL (1.7-2.4) [facility] ID Date Data Source [id number] 05/16/2020 01:38:17 PM EDT [facility] Name Value Range Interpretation Code Description Data Estella rce(s) Supporting Document(s) LDH 129 U/L (84-246) [facility] ID Date Data Source [id number] 05/16/2020 01:38:17 PM EDT [facility] Name Value Range Interpretation Code Description Data Estella rce(s) Supporting Document(s) SODIUM 139 mmol/L (136-145) [facility] POTASSIUM 3.8 mmol/L (3.6-5.2) [facility] CHLORIDE 109 mmol/L (100-108) [facility] CO2 23 mmol/L (22-31) [facility] ANION GAP 7 mmol/L (7-16) [facility] UREA NITROGEN 4 mg/dL (7-24) [facility] CREATININE 0.58 mg/dL (0.60-1.00) [facility] BUN/CREAT RATIO 6.9 RATIO (10.0-20.0) [facility] GLUCOSE 127 mg/dL (70-99) [facility] CALCIUM 8.9 mg/dL (8.4-10.2) [facility] TOTAL PROTEIN 6.4 g/dL (6.4-8.2) [facility] ALBUMIN 2.8 g/dL (3.5-4.6) [facility] GLOBULIN 3.6 g/dL (2.7-4.3) [facility] ALB/GLOB RATIO 0.8 RATIO [facility] ALKALINE PHOSPHATASE 214 U/L (45-117) [facility] BILIRUBIN,TOTAL 0.3 mg/dL (0.0-1.0) [facility] PLEASE NOTE:Total bilirubin results may be falselyelevated in patients taking Eltrombopag. AST (SGOT) 20 U/L (11-39) [facility] ALT (SGPT) 30 U/L (12-78) [facility] GFR >60 ml/min/1.73m2 (>59) [facility] GFR ( AMER) >60 ml/min/1.73m2 (>59) [facility] GFR INTERPRETATION [facility] --NORMAL KIDNEY FUNCTION OR MILD DISEASE - GFR >OR= 60CHRONIC KIDNEY DISEASE - GFR 15 - 59RENAL FAILURE - GFR <15 Est. GFR calculation based on the MDRDstudy equation, which assumes a steadystate for creatinine. Est. GFR should notbe used for medication dosing. ID Date Data Source [id number] 05/16/2020 01:04:28 PM EDT [facility] Name Value Range Interpretation Code Description Data Estella rce(s) Supporting Document(s) WBC 15.1 10*3/uL (4.1-11.0) [facility] RBC 4.24 10*6/uL (4.00-5.40) [facility] HGB 11.0 g/dL (12.0-16.0) [facility] HCT 34.1 % (36.0-47.0) [facility] MCV 80.4 fL (80.0-95.0) [facility] MCH 26.0 pg (27.0-32.0) [facility] MCHC 32.3 g/dL (32.0-36.0) [facility] RDW 14.0 % (10.5-14.5) [facility] PLT 256 10*3/uL (150-450) [facility] MPV 9.1 fL (7.1-10.7) [facility] ID Date Data Source [id number] 05/15/2020 02:18:26 PM EDT [facility] Name Value Range Interpretation Code Description Data Estella rce(s) Supporting Document(s) URIC ACID 4.1 mg/dL (2.6-6.0) [facility] ID Date Data Source [id number] 05/15/2020 02:18:26 PM EDT [facility] Name Value Range Interpretation Code Description Data Estella rce(s) Supporting Document(s) SODIUM 140 mmol/L (136-145) [facility] POTASSIUM 4.1 mmol/L (3.6-5.2) [facility] CHLORIDE 109 mmol/L (100-108) [facility] CO2 25 mmol/L (22-31) [facility] ANION GAP 6 mmol/L (7-16) L [facility] UREA NITROGEN 6 mg/dL (7-24) L [facility] CREATININE 0.48 mg/dL (0.60-1.00) L [facility] BUN/CREAT RATIO 12.5 RATIO (10.0-20.0) [facility] GLUCOSE 109 mg/dL (70-99) H [facility] CALCIUM 8.8 mg/dL (8.4-10.2) [facility] TOTAL PROTEIN 6.0 g/dL (6.4-8.2) L [facility] ALBUMIN 2.5 g/dL (3.5-4.6) L [facility] GLOBULIN 3.5 g/dL (2.7-4.3) [facility] ALB/GLOB RATIO 0.7 RATIO [facility] ALKALINE PHOSPHATASE 197 U/L (45-117) [facility] BILIRUBIN,TOTAL 0.2 mg/dL (0.0-1.0) [facility] PLEASE NOTE:Total bilirubin results may be falselyelevated in patients taking Eltrombopag. AST (SGOT) 20 U/L (11-39) [facility] ALT (SGPT) 30 U/L (12-78) [facility] GFR >60 ml/min/1.73m2 (>59) [facility] GFR ( AMER) >60 ml/min/1.73m2 (>59) [facility] GFR INTERPRETATION [facility] --NORMAL KIDNEY FUNCTION OR MILD DISEASE - GFR >OR= 60CHRONIC KIDNEY DISEASE - GFR 15 - 59RENAL FAILURE - GFR <15 Est. GFR calculation based on the MDRDstudy equation, which assumes a steadystate for creatinine. Est. GFR should notbe used for medication dosing. ID Date Data Source [id number] 05/15/2020 02:18:26 PM EDT [facility] Name Value Range Interpretation Code Description Data Estella rce(s) Supporting Document(s) LDH 277 U/L (84-246) [facility] ID Date Data Source [id number] 05/15/2020 01:48:48 PM EDT [facility] Name Value Range Interpretation Code Description Data Estella rce(s) Supporting Document(s) WBC 15.6 10*3/uL (4.1-11.0) H [facility] RBC 4.02 10*6/uL (4.00-5.40) [facility] HGB 10.3 g/dL (12.0-16.0) [facility] HCT 32.0 % (36.0-47.0) [facility] MCV 79.7 fL (80.0-95.0) L [facility] MCH 25.6 pg (27.0-32.0) [facility] MCHC 32.1 g/dL (32.0-36.0) [facility] RDW 14.0 % (10.5-14.5) [facility] PLT 242 10*3/uL (150-450) [facility] MPV 8.8 fL (7.1-10.7) [facility] ID Date Data Source [id number] 05/14/2020 08:30:00 PM EDT [facility] Name Value Range Interpretation Code Description Data Estella rce(s) Supporting Document(s) SARS coronavirus 2 RNA [Presence] in Res piratory specimen by PATIENCE with probe detection [facility] This lab was reported by [facility]. ID Date Data Source [id number] 05/14/2020 11:11:08 PM EDT [facility] Name Value Range Interpretation Code Description Data Estella rce(s) Supporting Document(s) SPECIMEN DESCRIPTION [facility] COVID19 RESULT (NDET) [facility] THIS ASSAY AMPLIFIES AND DETECTSTHE TARG ET RNA USING REAL-TIME PCR.NEGATIVE 2019_NCOV RT-PCR RESULTS DONOT PRECLUDE 2019_NCOV INFECTION ANDSHOULD NOT BE USED THE SOLE BASISFOR PATIENT MANAGEMENT DECISIONS. COMMENT [facility] UNDER AN EMERGENCY USE AUTHORIZATION(EUA ) FOR THE DETECTION AND/OR DIAGNOSISOF THE VIRUS THAT CAUSES COVID-19.EMAILED RESULTS TO IC AT 2131 ON 898752. [id number] ID Date Data Source [id number] 05/14/2020 05:57:[address] [facility] Name Value Range Interpretation Code Description Data Estella rce(s) Supporting Document(s) MUSE EKG PDF encoded Debbie spital SDUQVr5dKlPIRjMyo6XhUlRrZLTrUF5fqww6R5V0sZWyR4TwjRTpz4ojB2CtN9OeMHQbFFVCZD9WpSYj jb2 [file] h26t1fkv30k1gaJ57q0cGBs9a1yoYtbZ4rd4z5H8bk 3o4Yqhr1y7Wkws9cdKqoe6c95uwy0f96rsi6467ddw39u5cjD78v8aNssXsgJ6GN6YzszuEpji21YMQl dvn3j7Z15YcEh2fAEz8iIfdtB9SM7tGg7cim3lO5zr8ascyy2Bj6e65jvvpb9Ie3h19qjnn2gzQLxs4v jYVjc3jz4kkf5ig1zrk18g4tgs25k3hn040y3hP2p4 y2gm8h6A0lv5tgDrcg0fpOYeg3ubJCoF1s2YRic5d30BnLSvnkmaNyKZVHh/wf/2VvO2086A/+J85dRv h73qgvT//dfvn7/SucR15E/GxEr1zkF+/Kv96vY5Sj5l5NL0x6M/zKu9A5k6Wa90M5/k+jTqTy33rpUT /DIOv/k6b+hEN890N5Tmgez6hDMISddlJWNoTD4k4a Oc2GnqNjSX5/VPBbswIz4gHyy/ddJll+aVRwYzqiAgV6sUibsfD6o7fV9jlM/nhQBv/9V1m++1l15vyU /vu+5sl/39cykM+3jrVkfZFocZx0cvE5mM/K5Mn7Iz2Ec5O/wd/gH/BP8+swiNtol27772bsFu+b7zLl QRl8vO+e4Ag1Gn7Zf+A7+A7+An+BH++eyR1vytPprU Og3Hx9+jtqft/vezuh9WB2r4qxvP+FFJ9QekSS+1X0YyZjcmPNl8NoAyv118m7aY9A/sZq5zcu04/cfI z4dgzivvfjdwHpI3ity/s+iM48o20Nu/w4SwBEVbu3/fu+hwAdxaDecf1hPZ0Pl/tkne9kyFbLcW7ZJ7 VlzRyUy8AsN7uS/vu+ZPD9WXh3L+AfTA1ecIJG8GL0 Kc8FZ8JWdLxy15M71U59AM0jLm3Hl8Zzr6aukqRtUp+jfoRjcuOr2teSTe/AF/An+BN87e+o6I1D7RuE 1uNneY+7ScH9ehu5Gd5Ms3Ed32Ho/B87JSKX5nsgypoDW94ygj/N7Tr0xdsY0zM1m1Nq0N/wF/v6N515 07z0qmqaldldhZ/B+z4307B3Ndowj/n93yaupB4h0/ Ro/ovT5Gb85gSjvL+34z0OT+5UuBlMN8VYxkXD0H/we/5L2IM3a1uu1oPa4sR/ikObpH25zxoN+ddWlu J8A4Rxm1/8CUreq95cc/tYxOVyd5v5Uts/3jdiBsZZzO/eeN88i/XE+5nHG4dB1770xXQc19bdj5mJC7 VcL7g+0voFVmf7VeClx+V13s9Mcx+6ThjwoltQ1olm 8+PgOG4rFAg9vQp7IW6t6NeUxDT8trCav8/5sl0KSH/cJZCvJOWrjGQO+FgAlvkr2tW7Inm5YuDh+Aa+ ge+ox7//zkP9bvblmadg/xA3LizbEcXwCe2OpQ8w+eWXd+t8oq8aBJEpD7/V3415vEmo6/VlSC7v9uhL vzyx4/oV0OemqxBrjhtmtJOv15ieyf5jfnYEuyFPd5 a4frN/cruWV+mfPL/J4xWFK7e6jP34UjnyIuPVbH1w/2hkjzfPL29dMzLApSDAbhjvdJTOEhNYY/ByoX j1hVXG/7/36HL0ic/7ZP+EfDXKIh/6glxPor/onz2d8r0o54f8u+P0wQek615iTyJk1KgUBm2a8gxp7/ A35mOBTWXdP+3ovrOIAfKvHD2Pljwf1P3Ld2Bddjv8 3yijtYW1g9Btow/jXGSXwV/wGqdGc89oFUMbB/BP80O++wbza74BLnRjvj14/U98vTvk1/crTK3tflbd 430d7+t4X1/h69323UI5/HchexdNSM7tB9QUa9v3qsxv+C9h2dX34xxEB18tvXnPH/DRfFAm8Mdk6fAy q5wvq/EZJs4gSLdCgg5G8wy1S+bwogcG4JzvjbV6wi +P9jvVcLlE95kgM1NQQV+ox8DH/yjlqzzNHPJVyipxsvGuabv1/TjXWLJKHGu8/77d+kIcarzl0/pCHG m8/83T+kIcaLxrRchXmubGg/9vyFdfGXwFP/6/da+nUvFyqXqksI3PjCJbgveU+2W4jza5/fdnylfRVz Plq+zCyfSEXf4mRcyK/0M3ri5BxHmpqaoVS9+ygq+4 0cVDPOc02Bfk3TyE3/KNkImb2qx+05Lla8i/gxnpbyn8mR1Aak1GpHys5/kYFYK3aoj+gm/gG/gOvoO/ wF94/o3nx/uO/h/U7tB9Dy0d9zW0msl9r+AL+MA483J7A5fC3Wnrxh3vUr0r0IovKU5YyxI2u57/cQ6x yz0+Q766/PBlI8QVpcM2YZAstChsAXnObxUmyo4Xbz +6cApNgJB6mvxpg90i7iEilbl5HEv8Kv10+QJv85xa9Jhp9NMgn86HIl3xmso2Lci0mGlC/tVXBl/AF/ Bn1x/j0P28zvLPEWb8kJsFqlhL1m+DSEfQkJ4dtxoK/cv1ytNW89b5hjTgUd1nWagT+u80zN/av6pyj+ xGd0ItpFoeEF3MejKd+Tn867eEI7zAdo//5ZnylSV/ RQdZc0Fx2F/U0/uTs+SrKvdzpnwV//dpQ3q1ZE2eiDoAEzp/7Cj64xSvxP5wqF8Vuz3zZ85MIwC0ovdD KR68bbl+d4mUCdyDrmv+vky4w7FJ51txsjv0tq+Q1i9j7BSYwYVV66tlX04cbkqDq2cRRhYBPj749eqk 1HEKMQZnYVxDCyU8fW+R/ScxU3BPcepLpwaxd43+e9 pFg914Hqpo2SA8QNhcfZV+9yqr0ll5GayCzCrB18bcW2ChRFzd2seGwALK8Cc7/D7my2FJzRoXGf9rIN LyVdSP/zuQ2wDT128505msL25w++0z5at8/w403GcrX5tpfGkdxh41xwe+VZU36t/N9hObDwyuamx0P3 dYfexS2jk4Vwy+UpxqaRdWPW6rvAI/372K+vG+x3C9 oX4HH/E8XH6ioP+ecc0p0odiqC+LM85s1iwk+GQ4vu7tsfu4/A8ymuu4bptZFRupEsVL7bDM9g/K4C/w F/gb/A3+Qbstb+hoeUNTvqryAH+A3/CWag5DZthENG5r8AhsuF+ro/ONDB4n7Jo3H5C+nPRs3wa31A3v DvB1+fvvx/A3Nzzuqb1tAaICS1eQxg5zAACU+L0/Ga d1pyAHo95+Xsa49p6cA/a+soPv4C/wF/gb/Y142mQnF93+vG+FL3745y8Y0xOCrpEUAwq7JaL+2lX+5D 1N+aiCZ8jYU+5X2pJ9ogh+88JddP64xuGms2lW6Hd0oRpzjT/AkVB5nSe5sbNh+oKqgC/pG1HnLl6+KI SG8ypDfl49H/8yM1f7jxK5cn/gH/R1J1FcZ6HNLbB1 KIG1RI9yz5mgt+Bj/wfrbix0Ba5H14cN70fuLyCOhdrXf0vya/dCQMinQ9vfhjeDOXxa+pF28jjV+6B6 6/ee1cVsgm0bZoruB/5JPnrsDytxsvv1mMxjn1k+nHszfY2Q9xOydEcSX/LjfZ/kx/gaAc5EeM1cH/Pe bB1jmCtepFNrI2g5iTx44cp5ZySPmKV+11CPffJPHK b3u48tu8pwegstD2m2x5loEtIa7T29VgnmZWA8mcj8qgu5JhX/AlgF7a7W+1eK/StN+Uqq3P+0zX3dJL wD3/p/vdu+oNvBX+Eb2Yg1F3m4s8rpO0hHS7tiuW0sD/6/KV/P8BEb403BZ+iMtqUU5yUsmnOzxDBboA fEMbnl+O6UbcfbJUeG+7Qd6cjv621hGh1UcH1KX+SW 5zcN+cfFdlQ5w1n0uHycMvCR83ZU1T/Csx3O6sPeW0/Y8Z+Mw6CfR4oOoT43VUnjhF15ql06blgO9+J5 vQY/93y4Aj34A87g+ycOxH31+2ls8JFpDIunlfM9sz/34VJ956j+LhXJzw9Enh/6lrH7eX2Zy/G+IcvF 7vn9D1T+fA9m2bVLrlZj+ZtHlvbB+DH3hfwm4C0iEv 8Q9gn310rpF2uGN2lE2JkpA0nDnju+An+Oc3Ut4R/wT99qrS9F2BC/9QXL/asqC/gC/gR/gq+oX1G/gW /vu72p5dPRlyE+Ar/7fTPEShlzq5xa1v/Z/mY229/WXsaIbrE47LzmYlWzI1M7t6jr0KX8GV/fN+WrKv f+xc0UC8zgMEvCg9K/xcv8Zdnrhc6p3ntXdo/nWMlX FF02yOLy/QR/gq+rR4UJsi/+Epz4ddRgZRq09pvAa1qGlTvkNuk/ZSxIZskID2k0/2lByuS5nSZ9TuFk 4Av4E/qEK9mbP4ut1DSb1onF0a6k6pqBqa6VPL4lK/A3+Hz4K68lN5ojNtpweJ+Pt73x6maBkNSy7Y/w 5ye/mbc/skk8e0rAW7mo8cWpu/xeju/r+Q0L69d4gZ sG//Q36jdJmuD9i4Jm2TKe2hQ/2A7d0U9wID/ok01WldF+DV2Mv3iiM6fN3e3CE/QA2LUhiNspnn0vZh +ytA/eMvgD/AG+9HuFfHXLeN+Ur/R16Z0qT/L9290sj0YswuW9R3vitQ6oLixxSna51kG43y5kZE/dance instructor ftRwb/K4P/lcH/yg6+91r9fjU/yuB/WNxxCh3UYy4F CvneHx6EQLrhXaoH/gK/J1pKzD9HEqubZe8cc8riz8z++tPyhj+iM3v6O77weauxmNsiJJBDnuDRrnOy 7/vkve1/5el/VWVH/L3440rlhQanLQd/+oin/1WVD56/09Y23M6UP9ah7FMCH/ubeclXVf6+o4/+vj56 VNjbj9ep/4alO4FNLb40HN/1AbR98dWV/gZ/g9/2QY d/g7z5neb5p7fT+AN8AV/An+D1GkXt3LsA+jqUHk40O6v1cMPdY7A2hx/A7/1nT/kqdBMP+Sr1CA/5yv U3bsxN7jcZ+Sr1EQ/5KvUUD/lq5bcr/6u8N/yvcrxNvG/uX+S5KikiAh2a+3m4GS1G/WXB8087gi8b02 iDkkKD3d36DM0T9F9ARegJ/6uZfRX+Y7FtsvO3kcem OJ8/lYf/RwpMIIxoVfqh7O/aOY/C/+ir37e4qliTe5o4ivuRvOUM5/CQryT+1g6ePyhdTfZA3fCe8oXd ODztgznXtPcnHfZB1/o6qhjSekoUxR2B64Wpu4Ta6F/g8s5OtriMTng18i6BxUC/wBfwBfwJfvsjubX+ 67l/UxI7j2c9nqSkaKy5OIc04UDerQR3ur1cS/jtT+ je/oQO/yuH/5XD/8pdwBfwJ/jKmADlhGymI76ay/xN+Sq/kff+iwhij5z6ueON4sp/K4f/la/Wjzzlqx wbKV/dMvgCvoA/wZ/gt7+bkz3h0ECgFWWSy3/d4d/gkO23mD4G6xI/4/r2V/HV/iq+ez/W4d/p4C2z5L 855Csv+SqvmQ/KPe92+wC37q2D0Z7yqw0J15Z79Lp3 C/rJV3c2dQG0aO32aSj0/6b/VZUH+AP89r/y8r/K8gR/gq/gK9pt/slC0rly1Wu+pJ8+r+Ez1pvu7vBO /8pP+2k4nilSzb/Vgv/VKv+sEqWd1Dv3JK+vp human resources/WZ9wA6TB3LpluM7oK5lqQ6/Tndt3Krv3WwQq6Dh7J/ wG/7zN7Jo3Y5wB/g93heo/0Q4ur4zZA+WgPvO/C+A+ 04YNm2J/zbF/zbF/yvFvzbF/ye77fqU/DbnrKk5++S1o+WtH/dkgF+9neGFe3HAqJp0Ln+uOB/tcTQro Hv4Dv4+H4G4qraSk52As53Ey51K513G09ap47jKlYb/Y0F++JauW8In20npKaXK/D5m7HpucQAcJuo9/ 6Ta/b+xoL/0UcuW0jcm/UkP+0pT5Y/JEuPYl1p5/9q OYiMYxb0ldc5k8h0A44vR1+2PWWl/2HDQVyKYE4+6kn3cThh72PoeF9K2/Zp1a6Qmlq5/8jY7dwUhgKq 7y/YB1fZB/B76j5iPsLx/bpl/d8p3doPVR7HOQipNyaM9/DCcojuNdWb5Hh5W/zW95f3/uTyB/z2n1ze /zjATdpIA4a3NHZ1++cs7/1MWuwfnjivv6SdDw9h9Z 8Ves1K/6v8pul/vbkQtWqiO3ooA5V+s0K+3coOTB84nbJcdPFwecqmmT/Ce5lHwYVhI7qWE6+OgfC/Ov le4X+18jnD/8rr+vC/ymcI/2zM19s3NKvlMv1oaDepxt/Eu7/fflgr11tEs7JsaXLPexubqcVlUgKElo pk1Sq16go5406uyTkxyK2JQ5uDmLF6lDdLCvqf4XtL 8lWekVkpX+T7pasWu76Ecv64HVd+7Wv3+aO1W/9du/XflftX+Em25JxB/lcL/ldrb/A3+Af80/zT+tGC /9XK/qxaSo3kmrgY90Q1NcF+uZ3J96YcU63O1U8n4J1xs0Pi6U/wN/gb9R+02/rghv/Vftqesp+2p2z4 X+2n/Sc3/K/0A4Pye6aI/9VO+ymENp3E8+D38c82hv I5E6ysuPx8Dje2i/Zo+++G/9Uevf+84d++B9ivz1B0zhwLn9Lp4oMcVr02v2/sX+5D01s93d228Ma3Og 5no56N+tsfeKf/Waefmf2Qt/z9p7b0+Emily/6sN/6sN/6stE/wJvoLf/bqqGz5I0xRGen/Vhv/Vhv/Vhv /Vhv/XSiscyeb51t78jdn7/D0x20s6uT/Xu4fWI8dK 69uesifeF/7tO+Wrlfw+/7unge+43sFv/7pd/lfxjcr/eqykV2du5qfUgfNHpC2wvY10dSwKg/Xfrb0f x7Y3kV3/qw3/k52Ff8yyIMobFvpiey8EDSk9f/A3+G0/3hm92Vl/1YZ/+4b/6TD2grC/teF/teF/tW2C r6i/3pf1uPbWOn+ecI7pQDfRF4epj/A3+Af81o+243 0d7+m1L6o0OeHin74ch+u/29ufcMM+mC1jYbz2h6YX/2rD/2qn/1WVF/gL/A3+Br/Ps+/0t3dxckt9QE 8zrh3ys6Q/DmW6kHmd3Zo5aC6+E9VAlWrK0Dp9Eqv/4N7q3V74ivxjtUjr/hqU0av2329qO8qU6uhC6I pjvdoP+Fhd2xzirJkz6Qi6Mjudd8PU+ZeQvshoQ55P B/fu+Rd47xj1V+7WF/Ze4K/+n+4dt09lC83QX/fG//m3UVUzLr+xT/s668EjRzq086d4z+c1s+WBA3nj bL4fZ4J6bhjJuJa0sJlr775fD81RV/hb7Srj4Vtadnf8Zo5XfmXIaMR5lIi0Qw0aB+SrJVl+3zftLOfp 8+dp2Aj6X3FzKL6tEd8bPnhc/feEfJVnyU/LY3SFSV c1qh7/9BJlkX5NeKkm+xafLJ70V5b+Ox5YaoMk/lVdH+yC265q/aI8d72Do6qr77Z2vyU6uuM+1a6wia UiaL9fsWl90IzQmMGS5do+b+ogJ+Sr+eQ1YU+nlQPuk3rE+5NndPycM/p/kRRu8KG/6ozWf8/o8XxG++ si1puRqwX65wJdFzcoF6tUjn7A+AL+BH+Cr+C3PeXk /tUtg++4vs+uTEf70LaAa40nE/gH/BnIakm73Tt845m2dwH0n5H3Vqkoul2qIt6FrpjWd5Juy3Hru2Lx v7Fwg9Gxo75N/5jc296oFmiBegnND+C3/gvor9lH3d5I1j6kxYxD5nvnMRY/BxbBw7D3Fx8Ow+Ab6un1 +SD+7KR2a5M9O9vs8u2b587rL074Uhugk3/+Yw/4LW [file] EwMTIyMAolJUVPRg== ID Date Data Source [id number] 05/14/2020 06:36:00 PM EDT [facility] DATE OF EXAM: 05/14/2020Ultrasound: Nuvia l. INDICATION: Right flank pain. COMPARISON: None FINDINGS: The right kidney measures 15.1 cm. Contour and echo pattern of right kidney normal. No cystic or solid mass. No stones are identified.There is no hydronephrosis. The left kidney measures 14 point cm. Contour and echo pattern of left kidney normal.No cystic or solid mass. No stones are identified. There is no hydronephrosis. Urinary bladder is well visualized and normal. Ureteral jets were visualized bilaterally. IMPRESSION: Unremarkable renal ultrasound. X2End of diagnostic report for accession: [id number] Interpreted: Benedict Mattson MDTranscribed: 05/14/2020 06:36 PMSigned: 05/14/2020 06:36 PM Benedict Mattson MD [facility] # [id number] BILL # [id number] Name Value Range Interpretation Code Description Data Estella rce(s) Supporting Document(s) ID Date Data Source [id number] 05/14/2020 06:18:00 PM EDT [facility] DATE OF EXAM: 05/14/2020US LEG DVT INDIC ATION: Right leg swelling. COMPARISON: None. TECHNIQUE: Duplex imaging with color Doppler and spectral analysis were used to study the deep venous system from the common femoral to the calf. A combination of compressibility and flow augmentation was utilized to assess patency. FINDINGS RIGHT LOWER EXTREMITY: Right common femoral vein: Normal compressibility, flow and augmentation. Right femoral vein: Normal compressibility, flow and augmentation. Right popliteal vein: Normal compressibility, flow and augmentation. Proximal calf veins: Normally compressible. IMPRESSION: No evidence of deep vein thrombosis in the right lower extremity veins as described. X2End of diagnostic report for accession: [id number] Interpreted: Benedict Mattson MDTranscribed: 05/14/2020 06:17 PMSigned: 05/14/2020 06:18 PM Benedict Mattson MD [facility] # [id number] BILL # [id number] Name Value Range Interpretation Code Description Data Estella rce(s) Supporting Document(s) ID Date Data Source [id number] 05/14/2020 05:59:35 PM EDT [facility] Name Value Range Interpretation Code Description Data Estella e(s) Supporting Document(s) TROPONIN I <0.05 ng/mL (<0.05) [facility] Less than 0.05: Myocardial injury unlike lyGreater than or equal to 0.05: Highly suggestive of myocardial injuryCorrelation with rise and/or fall ofserial troponins, clinical symptomsand ECG changes is necessary. ID Date Data Source [id number] 05/18/2020 01:35:27 AM EDT [facility] SPEC EXP DATE 05/17/2020PATI ENT ABO/Rh O POSITIVEANTIBODY SCREEN NEGATIVETESTING SITE PERFORMED AT [address] [place], [place] [address]OOD BANK COMMENT BLOOD TYPE CONFIRMED.UNIT NUMBER [id number] COMPONENT TYPE LEUKOPOOR RED CELLSUNIT DIVISION 00STATUS OF UNIT REL FROM ALLOCTRANSFUSION STATUS OK TO TRANSFUSECROSSMATCH RESULT COMPATIBLEUNIT NUMBER [id number] COMPONENT TYPE LEUKOPOOR RED CELLSUNIT DIVISION 00STATUS OF UNIT REL F ROM ALLOCTRANSFUSION STATUS OK TO TRANSFUSECROSSMATCH RESULT COMPATIBLEUNIT NUMBER [id number] COMPONENT TYPE LEUKOPOOR RED CELLSUNIT DIVISION 00STATUS OF UNIT REL FROM ALLOCTRANSFUSION STATUS OK TO TRANSFUSECROSSMATCH RESULT COMPATIBLEUNIT NUMBER [id number] COMPONENT TYPE LEUKOPOOR RED CELLSUNIT DIVISION 00STATUS OF UNIT REL FROM ALLOCTRANSFUSION STATUS OK TO TRANSFUSECROSSMATCH RESULT COMPATIBLE Name Value Range Interpretation Code Description Data Estella rce(s) Supporting Document(s) TYPE AND SCREEN [facility] PATIENT ABO/Rh O POSITIVE ID Date Data Source [id number] 05/14/2020 05:09:39 PM EDT [facility] Name Value Range Interpretation Code Description Data Estella rce(s) Supporting Document(s) URIC ACID 3.7 mg/dL (2.6-6.0) [facility] ID Date Data Source [id number] 05/14/2020 05:09:39 PM EDT [facility] Name Value Range Interpretation Code Description Data Estella rce(s) Supporting Document(s) LDH 118 U/L (84-246) [facility] ID Date Data Source [id number] 05/14/2020 05:09:39 PM EDT [facility] Name Value Range Interpretation Code Description Data Estella rce(s) Supporting Document(s) SODIUM 141 mmol/L (136-145) [facility] POTASSIUM 3.5 mmol/L (3.6-5.2) L [facility] CHLORIDE 109 mmol/L (100-108) H [facility] CO2 23 mmol/L (22-31) [facility] ANION GAP 9 mmol/L (7-16) [facility] UREA NITROGEN 6 mg/dL (7-24) L [facility] CREATININE 0.50 mg/dL (0.60-1.00) L [facility] BUN/CREAT RATIO 12.0 RATIO (10.0-20.0) [facility] GLUCOSE 75 mg/dL (70-99) [facility] CALCIUM 8.7 mg/dL (8.4-10.2) [facility] TOTAL PROTEIN 6.2 g/dL (6.4-8.2) L [facility] ALBUMIN 2.6 g/dL (3.5-4.6) L [facility] GLOBULIN 3.6 g/dL (2.7-4.3) [facility] ALB/GLOB RATIO 0.7 RATIO [facility] ALKALINE PHOSPHATASE 186 U/L (45-117) H [facility] [place] BILIRUBIN,TOTAL 0.2 mg/dL (0.0-1.0) [facility] PLEASE NOTE:Total bilirubin results may be falselyelevated in patients taking Eltrombopag. AST (SGOT) 10 U/L (11-39) L [facility] ALT (SGPT) 23 U/L (12-78) [facility] GFR >60 ml/min/1.73m2 (>59) [facility] GFR ( AMER) >60 ml/min/1.73m2 (>59) [facility] GFR INTERPRETATION [facility] --NORMAL KIDNEY FUNCTION OR MILD DISEASE - GFR >OR= 60CHRONIC KIDNEY DISEASE - GFR 15 - 59RENAL FAILURE - GFR <15 Est. GFR calculation based on the MDRDstudy equation, which assumes a steadystate for creatinine. Est. GFR should notbe used for medication dosing. ID Date Data Source [id number] 05/14/2020 04:54:36 PM EDT [facility] Name Value Range Interpretation Code Description Data Estella rce(s) Supporting Document(s) PROTEIN,URINE 8 mg/dL [facility] URINE PROTEIN MAY BE FALSELY ELEVATEDDUR ING TREATMENT WITH AMINOGLYCOSIDESDUE TO METHOD INTERFERENCE. CREATININE,URINE 47.70 mg/dL [facility] URINE TP/CR RATIO 0.17 RATIO (0.00-0.20) [facility] ID Date Data Source [id number] 05/14/2020 04:46:45 PM EDT [facility] Name Value Range Interpretation Code Description Data Estella rce(s) Supporting Document(s) WBC 15.8 10*3/uL (4.1-11.0) H [facility] RBC 4.16 10*6/uL (4.00-5.40) [facility] HGB 10.7 g/dL (12.0-16.0) L [facility] HCT 33.4 % (36.0-47.0) L [facility] PER[facility] AT [address] [place] [address] MCV 80.3 fL (80.0-95.0) [facility] MCH 25.7 pg (27.0-32.0) L [facility] MCHC 32.0 g/dL (32.0-36.0) [facility] RDW 14.1 % (10.5-14.5) [facility] PLT 248 10*3/uL (150-450) [facility] MPV 8.9 fL (7.1-10.7) [facility] ID Date Data Source [id number] 05/14/2020 04:46:09 PM EDT [facility] Name Value Range Interpretation Code Description Data Estella rce(s) Supporting Document(s) COLOR [facility] AT [address] [facility] [place] [address] APPEARANCE [facility] SPEC GRAV URINE 1.008 (1.003-1.030) [facility] PH URINE 6.5 (5.0-7.5) [facility] LEUK ESTERASE (NEG) [facility] CRITERIA FOR CULTURE NOT MET.CULTURE CAN BE ADDED WITHIN 36 HOURS OFCOLLECTION. NITRITE URINE (NEG) [facility] PROTEIN URINE (NEG) [facility] GLUCOSE URINE (NEG) [facility] KETONE URINE (NEG) [facility] UROBILINOGEN 0.2 mg/dL (0-1.0) [facility] BILIRUBIN URINE (NEG) [facility] BLOOD/HGB URINE (NEG) [facility] ID Date Data Source [id number] 05/14/2020 04:41:45 PM EDT [facility] Name Value Range Interpretation Code Description Data Estella rce(s) Supporting Document(s) HOLD TUBE PINK [facility] ID Date Data Source [id number] 05/14/2020 01:50:51 PM EDT [facility] Name Value Range Interpretation Code Description Data Estella rce(s) Supporting Document(s) Progress Note [facility] IMDABm4zTnVMOuXo63/XPRxzDQVol1GcCNcaIRq1TTviZGPrH0YpTKC7uC8wHRJ1ABtRKsHiJvAvNuUw lbm [file] AgICAgICAgICAgICAgICAgICAgICAgICAgICAgICAgICAgICAgICAgICAgICAgICAgICAgICAgICAgIC IxEBYaZGBfEAPnGYNiFZWdCBQjRGVcEXMqBYQgUO0E ICAgICAgICAgICAgICAgICAgICAgICAgICAgICAgICAgICAgICAgICAgICAgICAgICAgICAgICAgICAg RWTbELAxSZLuTKBgMWKuBCTaDPTtCIJpDGBmGFFpDQVaIWUvSIGkPN7LWDMrAAHeXFYoHYQbSXAqFIBx ICAgICAgICAgICAgICAgICAgICAgICAgICAgICAgIC QgFLZoHEMqUPJfTQYyOTYhVAEeDBMcUOQxLYAnHXDmCYOzYLRaEWSaSFOlLOEeECFqZN0JXCEuAOJnRP AgICAgICAgICAgICAgICAgICAgICAgICAgICAgICAgICAgICAgICAgICAgICAgICAgICAgICAgICAgIC AgICAgICAgICAgICAgICAgICAgICAgICAgICAgICAg TO0CFQEaPJEiSEUpQJYwDHSrOYSxEMRvUNWiJQSuRMOrEZYvDOIfOCVaRXJvVHEcXNTgZTBoCXKgIJTf GRNeUCQlLAHcWPUzRIXiWFNeOZYvKOWjDGWfEGHdYYAiQKVrJQKhYICfRV1AXPFpGOCqPBQpFKKmDUMk ICAgICAgICAgICAgICAgICAgICAgICAgICAgICAgIC SfWPJnBWSsOSLzSDWjBSLhBRUqSUBvLWUdGWVyJPCwASFpCOWzYSWeQTXsFUSmZOGfBYGxHH5XPUGkSG AgICAgICAgICAgICAgICAgICAgICAgICAgICAgICAgICAgICAgICAgICAgICAgICAgICAgICAgICAgIC AgICAgICAgICAgICAgICAgICAgICAgICAgICAgICAg LBHeHB8OTOJqWBLzYOTrYBFaUHFjYDMyYMGuZFOlIJZmXVAmGJKxDUCrXDBgSDXvHQGrUIZlWXTeNCHh ANPqKCWtVRCxIXWzQSDqSIEsEBOvXKUrYRZhDOJiYIHsEVDpQXWmNIShTLNzQD4KUVUwQKUxQOJsKOYb ICAgICAgICAgICAgICAgICAgICAgICAgICAgICAgIC QtOGSjTDFlXOEnHGVjIJHwZLOtZFRbHWVoQBVePEPiBMSnIQXfACIeWKJzNNVlPQAsUMOmBEStUJ4HJN AgICAgICAgICAgICAgICAgICAgICAgICAgICAgICAgICAgICAgICAgICAgICAgICAgICAgICAgICAgIC AgICAgICAgICAgICAgICAgICAgICAgICAgICAgICAg EIBqXJKqTZ3SND75xKQub1R0YUZeNZ5nkln/Mn4GIAgwjjBtlHVbLW4WErYqMM2xut2HYaDhSU6wij6F ZXaOVcEtK4J0jKBuWXVvLPXOHsXkH36dDXpqVd31OTxpFLSsKnJnVCu7Dn3TNzNuR8rgEVCaSnY2BZUt GeC1OIWvMpOnJGspPH4Oj3PzzIIbQYl+Tv2FMM6mh7 XdMNikUhNwTQ8pzw6DAKySXcNcV8WtqxJ6HQL8UNNmNq5RTGFlWBEfjZWbEJZeVIHPIsRoS0RugT33UD ENCj4+IXdpcoFlIpjWCsS6EGXbr5GwJGz0FR4BEUPuXQu1jLUrWXQlG6Wmr2PaVu20OGXnEcihDuOlck fjRBStEwSWm6suTTZuJV4RHTJ6BVwfNs0sUVIuKKJy GhXhLHAYIW2YDDCoZMHwwEHwUQUdDQGMYI9FZRyxUJA0XFDnwtJyfFThSSrdTC6LXMByifZdZcvzTDOX DQo+Aq9DKP2wc2IhCBuhJNElGP7goi8RWYsIVoBrZ0O2wFOfG7C7OLwjLe3FMJRbEYOdWbZjWKACLLxh ZF0GGA0jloX3UO3RrNNxHEKpRMXjsPFnOXk5Z18bsW DqBYoyXJ6NNWR+Penny+Jh3MECCsHGZrKOJyPbLtUZJDYwBuR1WnZ6PQt4DgS7GpII37oEtnklVhOCkhYF 0XDN7jMLLpQTVWVW0BrYSuzY2hveKqPbDzZGMBNmPpE10rtMRnQDWzXWP0OWGlPh2DJNIeF3DtvjJojO mblqJhCBTjYKYUEK7XTMlyskAmvBIzwOenPD65xFbm UX4KHm5AYfEkDZ1hhl2BcOTbVp1TGOSjUF4RYCScJPJvTWPcEAY9JXBxKgTiQKfxZATdTWRiLUZ8KIFc UATfOR2AQbViLDPtOwUbSZLgWBUrPHUrpe0XAAMxCMCwXZy3ArEpZZSuOGYeCGvlKLGfZPCtPNN7KKGx SMUpIQ0URyAwIXFiXURiJpJrVAOmGPXyjn3TORSqYH PmErSaOJYjWTEkYYYcAGrlKAUxTHD6LnC1FFTjGIOnHB8IGeTrPYCoZJH3QsLsFFBmKSFpnq7GYNHxPK QqVaHmJJCoVYZxFDXjHMffHGKbUTB7FsO1AYQjGTSvFI1XIrGmDXXcYSO6LIzeKFBwUZEqaf0JOQUoCZ PyCjs5OcAzGEUcJCCdTJdqXOHyQYR4HSG7YRKaJXCy DZ3EXkHbWVKwVArcFEEqSPJoZXAnnq3NJKIeQXRoBEQ4HxOhFKRhOBMmGVjtEMHgGPY9NCQhOYBwINZt VQ1QCvAsWMBaBwWaTdZnGWOmSYAqqp1UHLDeCCBlKMH6LWMmABRyGXRiXMfxBBTmAMCeBWA3TNDxWHQt YG4QXhDaORTxDzB3IJdfSQTmZJZhca7QYJKcXULvIZ V6FRTgMQYwJJJdKCqkDDHlFARiKMJ4BNKnIWLhSV6TGvJoYHYqNnG2VtKaMVZkFNXvuc5JTRBgAPGxOx f9CuFfRKYfVZGkUQvlZBUgJYCoUYP8PEAiAMSmQY7IBfNkOMNzByF3RPcrMFMkETPnzm9WZYLfXNYvOK UwTZWpOUByQFCyQMsaFTEhJAO0SHxuZNJzUEPsFL8V ZnKlWWWiLpFaKqLyJFUaDQQxmf2VnMGmlDzdow8XKRcQZx2JpNabHFWjRIqiYd8nnGEfVOFzJMQZFo1E evXtOSGsMQGXPVpcXLOhWIOfW1FsLhx1OSosS7F6NSA4DrYqICRyMQSwDHJ7NMLeRpE9UzTrA3KgVGa8 T8A6QGF9SgezEtS1F2I0CeKeRnV5EDP+VE3pKNc+Tj2Yt0CitzM3hoHiZUexDKJ5Mq1BAASUP1JYNc== ID Date Data Source [id number] 05/14/2020 01:05:17 PM EDT [facility] Name Value Range Interpretation Code Description Data Estella rce(s) Supporting Document(s) Color of Urine [facility] Clarity of Urine [facility] Glucose [Mass/volume] in Urine by Test strip Negative [facility] Bilirubin.total [Presence] in Urine by Test strip Negative [facility] Ketones [Mass/volume] in Urine by Test strip Negative [facility] Specific gravity of Urine by Test strip 1.010 1.005-1.025 [facility] Hemoglobin [Presence] in Urine by Test strip Negative [facility] pH of Urine by Test strip 7.0 5.0-8.0 [facility] Protein [Mass/volume] in Urine by Test strip Negative [facility] Urobilinogen [Units/volume] in Urine by Test strip 0.2 {Ehrlich_U}/ dL 0.2-1.0 [facility] Nitrite [Presence] in Urine by Test strip Negative [facility] Leukocyte esterase [Presence] in Urine by Test strip Negat socrates [facility] ID Date Data Source [id number] 05/18/2020 03:02:25 PM EDT [facility] Wins[facility] Nick[facility]: 1990Provider: Derian Milian: 05/13/2020 History of Present IllnessShe is here for the first visit to [facility] for a right ankle fracture. She was seen in [facility] by Dr. Richard Guerrero for a minimally displaced ankle fracture distal fibula she sustained after falling on stairs. The patient is also 32 weeks and suffers from lupus. She is on a current Medrol stress dose She was placed in a cast at that time and was admitted overnight. She had increasing swelling and pain after the fracture and was given morphine and her cast was split at that time. She was discharged from the hospital and had been nonweightbearing utilizing a wheelchair. Today earlier she was in the wheelchair when it started rolling out of control she placed her right foot down to stop the wheelchair and put full weight on to the right foot with increasing pain and swelling. She presents today for an urgent visit for evaluation of fracture cast and increased swelling. Assessment 1. Right ankle pain (719.47) (M25.571) Right ankle distal fibula fracture with recent weightbearing traumaPlanX-rays today show some shifting of the fracture. I have placed her in a Cam Walker. I would like her to be sent for a Doppler study. We're working authorization for Doppler study but at this time she may have to proceed with the ER to have this evaluated. She has been to [place] [facility] in the past. She is on Arixtra in the meanwhile from her obgyn. she'll continue to ice elevate and remain nonweightbearing. She is utilizing a wheelchair today. She'll follow-up with Dr. Guerrero on Sunday for further evaluation. She has signed the consent for x-rays today as she is a 32 weeks . Patient's case was discussed with Dr. Guerrero by phone. Plan LE Vectra Lite Walker (SOS) [id number]; Status:Complete; Done: [id number] Perform:SOS05; Due:[id number]; Last Updated By:Malou Owen; 05/13/2020 4:51:53 PM;Ordered; For:Right ankle pain; Ordered By:Virginia Milian;DME Walker Size : Tall Medium X-Ray I Ankle - 3 views (XRays were ordered, obtained and interpreted today in theoffice. Indication: pain/dysfunction.); Status:Complete; Done: [id number] Perform:SOS05; Due:[id number]; Last Updated By:Kika Baumann; 05/13/2020 4:00:09 PM;Ordered; For:Right ankle pain; Ordered By:Virginia Milian;Weight Bearing Status : Non-weight bearingLaterality: : Right Venous Doppler (SOS) Referral Treatment Treatment Status: Complete Done:13May2020 Ordered;For: Pain and swelling of right lower extremity; Ordered By: Virginia Milian Performed: Order Comments: Please call [phone] with STAT results Due: 27May2020; Last Updated By: Christy Campbell; 05/13/2020 4:35:46 PMFax stat results to: : SOS05: Reason: : Right distal fibula fracutre 05/04/20Rule out deep vein thrombosis : YesExtremity : Lower ExtremityLaterality: : Right Signatures Electronically signed by : Virginia Milian NP; May 17 2020 10:21AM EST (Author) Electronically signed by : Virginia Milian NP; May 17 2020 10:23AM EST (Author) Electronically signed by : Jose Alfredo Dias M.D.; May 18 2020 3:02PM EST Name Value Range Interpretation Code Description Data Estella rce(s) Supporting Document(s) ID Date Data Source [id number] 05/13/2020 12:11:41 PM EDT [facility] Name Value Range Interpretation Code Description Data Estella rce(s) Supporting Document(s) Progress Note [facility] SWDPMi1yNeSMDkGa17/PLUwtHEEgt0UfCOvmPLs9AMahVMXaV5JdFHX9cY7jVFS1BNbULsXnEwBfCwTh [facility] [file] 5h/lawn technician+c/FyYLbwifikZxnrhabBP/CqWSGtgasBJXcqYY5v23H62D0PhG2ES2orzNUgHm5ODdn8I0dKs2 [file] 853Gm1Fkgh8aP+6Rv/fM+Bpc/Michelle/r7796+Vpsiq8q vvTmbRMDY+Vg089okFwpT79zWJpnQ4d0EKbAbkz/wHX9c/uNA6402RLp009FsPOQsb02jZ/jWPD9mmV1 h3zXxWs218qjgg4u6HhY8yRFu0R49x2pFBhwOWMhvGorNlLdmLVCTf3Id1J73rjWDcvFgzawxmN5CAUu Lsn9B1kc0ETj6kROevgbhmtVLMNSlmUttnA9OpzfCT etM9MWZqWv3rSjO9ntiM1WHqSbyjyCcNLaeWvo1Uh1VFcWNj0DAFmNvPMdbqwS5Aevb1CGsQ47/QBOFF D+UHXGMliTz0EW5DJxa+vRWjlL1+x8QfLLfhEKX48YvrgI6vTrz/ORKSFvJgxbL83fXeemEPXkY2o8YN OfQSdP2kF9rPWYXHPRiCTW+mOQQz543Urc6tH3juoA bV/Elun0vu8Oi099a/P1FMCSfIs/7mHFovyiL6q6qwr0s9SkolbkMUg1SX0cLgH+joGIq4SAlbxewcZC gIH+wWlwPe7e8HGk4DA1KldXWYZgW+mYpDGXHMgcojZTAMhbIZgebCywprwne4HAAAelEZZ2iyTDgqML space engineer+6kEgoCY4nrO8zgUFaIXLIVs1gZL9hLJAAUMEQT [file] AgICAgICAgICAgICAgICAgICAgICAgICAgICAgICAgICAgICAgICAgICAgICAgICAgICAgICAgICAgIC AgICAgICAgICAgICAgICAgICAgICAgICAgICAgICAg ICAgICAgICANCiAgICAgICAgICAgICAgICAgICAgICAgICAgICAgICAgICAgICAgICAgICAgICAgICAg ICAgICAgICAgICAgICAgICAgICAgICAgICAgICAgICAgICAgICAgICAgICAgICAgICANCiAgICAgICAg ICAgICAgICAgICAgICAgICAgICAgICAgICAgICAgIC AgICAgICAgICAgICAgICAgICAgICAgICAgICAgICAgICAgICAgICAgICAgICAgICAgICAgICAgICAgIC ANCiAgICAgICAgICAgICAgICAgICAgICAgICAgICAgICAgICAgICAgICAgICAgICAgICAgICAgICAgIC AgICAgICAgICAgICAgICAgICAgICAgICAgICAgICAg ICAgICAgICAgICANCiAgICAgICAgICAgICAgICAgICAgICAgICAgICAgICAgICAgICAgICAgICAgICAg ICAgICAgICAgICAgICAgICAgICAgICAgICAgICAgICAgICAgICAgICAgICAgICAgICAgICANCiAgICAg ICAgICAgICAgICAgICAgICAgICAgICAgICAgICAgIC AgICAgICAgICAgICAgICAgICAgICAgICAgICAgICAgICAgICAgICAgICAgICAgICAgICAgICAgICAgIC AgICANCiAgICAgICAgICAgICAgICAgICAgICAgICAgICAgICAgICAgICAgICAgICAgICAgICAgICAgIC AgICAgICAgICAgICAgICAgICAgICAgICAgICAgICAg ICAgICAgICAgICAgICANCiAgICAgICAgICAgICAgICAgICAgICAgICAgICAgICAgICAgICAgICAgICAg ICAgICAgICAgICAgICAgICAgICAgICAgICAgICAgICAgICAgICAgICAgICAgICAgICAgICAgICANCiAg ICAgICAgICAgICAgICAgICAgICAgICAgICAgICAgIC AgICAgICAgICAgICAgICAgICAgICAgICAgICAgICAgICAgICAgICAgICAgICAgICAgICAgICAgICAgIC AgICAgICANCiAgICAgICAgICAgICAgICAgICAgICAgICAgICAgICAgICAgICAgICAgICAgICAgICAgIC AgICAgICAgICAgICAgICAgICAgICAgICAgICAgICAg ICAgICAgICAgICAgICAgICANCjw/yVMlJ5hxcZTnvqM4S4xcWn9KVr9GED3ll4KaUBMwAHmkawZbFofJ ZmVhUTNuVbqVFqi7RNhlRC2VkLArR8CuX0SnLFrhJX2TMELqDUSkdNUcKDJqCXNqOuE3YLTvYPpeTL0S aWRzIFsgNSAwIFIgNyAwIFIgOSAwIFIgMTEgMCBSID BiQFBjLvAhBKsxEK0Ic5TogWF1XWt+Nf3RXS1mg6KlBQkmCZGbUO4fea9UFFrPTySwT8SzvlI3BBQwXN YlSd7AMJKiQMNcgZSeOTCqSFECPpXdD2AzfC34BXYEIj0+PAnuioTuAimEDqKsEFPre5WqWSs0XU0KFV CuGCa4nDUhBZCqC1Hic0BpEb56RQQmMixnRq5qHBR5 IXXsHMAeeyffSVZsXYOnKa7tKG9oBXPiGQJnXsA2WCGJEW2PXNDfFJUyfJNiEUZlTRAKQY9UWUslQAW0 TBAikaLtlDYuQVieLL0FFASbjfZjKkYmYMJIDFf+Kd7GZE7kr8UsPYqnGoPgPL2ygv6MTNaLTjVjH6V4 sUQvM9B2VJnyNi2EOEHgDSBxKfyxYKTSWCqfOT2CKF 1iiyH2UU5IzTSwHDLpIZKcqGVePEf2Y74oiBYeUNdjKE7NVNG+Penny+Xf3BRIKdYQJgQKTdFzWeHEPFJi BhH1SmC9QXi1WtK4QdDT96tGiimgCcHHupEF8JRK7fPASwUIXKUM5EgCDxoQ7xbdQcLWFaKJVFUdCrC3 6ulDBbSOTfLBF9UMMsWv9XQPOdQ9CdlgHcgCwmhjGu ACIxOBCCFC4TAGbgtfQitPBoaDbjEP08uSlzZW4APd4GKsMvDA0thw3QlLWrRa8OCSUkHv0IDOQqGTIt AENuZGM5VBHpQgArADuxBIYaWVKtLHO2ZHYnOYLhHC9OJkUbLGUuTfD1PEAgOOYmAELwyt8KTTTaZQL9 YdN0SZXoTFPkXCFlEWwaERQsZUFuAVR3OHArZFDeKR 0TAoRoJPBgDMMcNjkrBEJdWXXggx1OJKPjFMKlDQJ4BLBsEKOdNRLuFGooPQYbURG0AbU8FDOlXAEpOR 8OHbLuFFAwTYj8UjLdLIFzGXQecc0TCJRiORAhOiYbVbDmQSDnJHIuVPaaBNTsTPB6GkRyBCRhMQTbRR 4ETcJtDWMvCmO9MgAkDWZvLGBhcw7WFIYvKZNtEZfp QrEkYCZfHUGcMXerFCFvOTWaCKMpMWYqPGNxQT3QNbIvKVVpWxGdNPIbWWVnHAYetx0LRGGyUNQgAPSc LkUnTUVrVKQuTDjhKAOaCRR8SJEyRQJeQCAvPX5NRpJjCSKrAwZ5VXVnJJQcRIIrau7IOJHaKJCzMJI2 GMBtJJTzHIEdKDsoXZReNQU8JAR6JCYvMJAeGF6RBg IaBAEdXuWlYYXlXKCfCKKluq7FAFXsEBV6UwB5McBiUGHdNHHcDAjiDLEyIGM9SfNiMHKwZGXfGI4YMm CyXOTdAZu1CpBvVMCoHJKkym5LTREuXRK7ADF2LaTaHCJgNMUlZZkkQORhSSD9IRAlZVPkZUDsLT3QAy HfJDYcGoFvOBAcTTYiIMGeju8SNRWxDHJ4IWE3OHTq UOVtEGNoMFbbGGTiNKTtVjBnPCThFAOlUP8BUqFeYQBtSjJwUzrfDWXgAMAqkb6CITZwVTX9ErMmJnMa XXPrENBfCIplHZKmMCMpNwe0XIHfTDTzPJ6ROnQhTOBxKnI8GfYqUYKtLDGucz1ZaOSkoCqrsc4SRArW Xr1StUvjKFIlXSbhMn1huVNyEyXcTTBONj7JdvOkRH BdSDTUHAexVCEdWWgmOpK5ZuWrUTJmLJD1LBwwTOQnDDE7NHB6VDAyUAQ2VnR7HJD6OZlvDIXiQzBbTD RuEGK2J4I5BWU9JLH7NMOhCJO+QM3eRJi+Me5Pg5IjkmS9ppTnTOu7GjM6Mv4FBVNKK8XGUn== ID Date Data Source [id number] 05/11/2020 09:56:26 AM EDT [facility] Name Value Range Interpretation Code Description Data Estella rce(s) Supporting Document(s) Color of Urine [facility] Clarity of Urine [facility] Glucose [Mass/volume] in Urine by Test strip Negative [facility] Bilirubin.total [Presence] in Urine by Test strip Negative [facility] Ketones [Mass/volume] in Urine by Test strip Negative [facility] Specific gravity of Urine by Test strip 1.005-1.025 [facility] Hemoglobin [Presence] in Urine by Test strip Negative [facility] pH of Urine by Test strip 5.5 5.0-8.0 [facility] Protein [Mass/volume] in Urine by Test strip Negative [facility] Urobilinogen [Units/volume] in Urine by Test strip 0.2 {Ehrlich_U}/ dL 0.2-1.0 [facility] Nitrite [Presence] in Urine by Test strip Negative [facility] Leukocyte esterase [Presence] in Urine by Test [facility] ID Date Data Source [id number] 05/07/2020 09:49:29 AM EDT [facility] Name Value Range Interpretation Code Description Data Estella rce(s) Supporting Document(s) Progress Note [facility] BZSWRx9rZqNNDiGo43/CIFlfDRXin6AkKRmpFQs6XGswGGWaH0NlJHQ8fR6vIMK5DYeHNzLyIjKmCmQ7 lbm [file] 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 Tarango.TIME OF CONSULTATION: 06:50 a.m.REASON FOR CONSULTATION: Minimally displaced ankle fracture.HISTORY OF PRESENT ILLNESS: Ms. Akers is a 29-year-old female who had afall yesterday in her bathroom. She was on the fourth step when she felland heard a snap. She is 31 weeks and her significant other is [employer] stationed at [place]. The patient was admitted andtransferred to [place] for a lupus flare with the fracture. She reports ahistory of a fracture a year ago as well in her pelvis. [facility] [place] [facility] evaluation and she was splinted and given anappointment to see orthopedics in [place] and her OB today. Her OBapparently thought that she should be seen [place] [facility] [place] [place] so she came down to [place] overnight and was admitted.Currently her lupus symptoms include normal issues of rash, headache,intermittent blurred vision, intermittent fevers, fatigue, weakness all dueto her lupus flare which are at baseline for her. She also complains ofright ankle pain and swelling. She is able to move her toes but there ispain with movement and weightbearing at the ankle. Right lower extremityDoppler was also negative.She was casted overnight by the PA after we reviewed the stress view imaging. She complains of dependent pain. She notes relief with morphine,ROS: comprehensive ROS negative unless listed above in the HPOPMH: lupus, HTN, delivery, seizurePSH: c sectionSoc Hx: denies EtOH, tobacco, drugsExam:Gen: AAOx3, NAD, pleasant, cooperative, pregantRate and flow of speech is normalHEENT: atraumatic, EOMI, mucous membranes moistNeck: Supple, full ROMAbd: RLE: cast in place, SILT/Motor DP/SP/Tib, BCRXR R ankle: SER2 minimally displaced distal fibula fracture that does not widen on stress viewA/P 31F s/p R Ankle fracture distal fibula. This can be treated nonop.1) NWB RLE2) anticoagulation per OB team3) PT Eval4) f/u 2 weeks will convert to WBAT in CWBDICTATED BY: Richard Guerrero MDDictated: 05/06/2020 7:42DT: 05/06/2020 7:50Job #: [id number]:NOTE: [facility] computer generated reports are notconfirmed or authenticated unless they are signed by the providerElectronically Authenticated and Edited by:Richard Guerrero MD On 05/08/2020 11:56 PM EDT Name Value Range Interpretation Code Description Data Estella rce(s) Supporting Document(s) ID Date Data Source [id number] 05/05/2020 09:54:03 PM EDT [facility] Name Value Range Interpretation Code Description Data Estella rce(s) Supporting Document(s) POC GLUCOSE 154 mg/dL (70-99) H [facility] PERFORMED BY CLINICAL STAFF ID Date Data Source [id number] 05/05/2020 06:53:07 PM EDT [facility] Name Value Range Interpretation Code Description Data Estella rce(s) Supporting Document(s) POC GLUCOSE 118 mg/dL (70-99) H [facility] PERFORMED BY CLINICAL STAFF ID Date Data Source [id number] 05/05/2020 11:49:23 AM EDT [facility] Name Value Range Interpretation Code Description Data Estella rce(s) Supporting Document(s) POC GLUCOSE 106 mg/dL (70-99) H [facility] PERFORMED BY CLINICAL STAFF ID Date Data Source [id number] 05/05/2020 07:37:35 AM EDT [facility] Name Value Range Interpretation Code Description Data Estella rce(s) Supporting Document(s) POC GLUCOSE 111 mg/dL (70-99) H [facility] PERFORMED BY CLINICAL STAFF ID Date Data Source [id number] 05/04/2020 10:18:21 PM EDT [facility] Name Value Range Interpretation Code Description Data Estella rce(s) Supporting Document(s) POC GLUCOSE 143 mg/dL (70-99) H [facility] NOTIFIED PROVIDERNOTIFIED NURSEPERFORMED BY CLINICAL STAFF ID Date Data Source [id number] 05/06/2020 01:19:07 PM EDT [facility] SPECIMEN DESCRIPTION VAGINAL/RECT ALCULTURE RESULTS NEGATIVE: BETA HEMOLYTIC STREPTOCOCCI GROUP B B Y PCRREPORT STATUS FINAL 05/06/2020 Name Value Range Interpretation Code Description Data Estella rce(s) Supporting Document(s) ID Date Data Source [id number] 05/04/2020 06:30:00 PM EDT [facility] Name Value Range Interpretation Code Description Data Estella rce(s) Supporting Document(s) SARS coronavirus 2 RNA [Presence] in Res piratory specimen by PATIENCE with probe detection [facility] This lab was reported by [facility]. ID Date Data Source [id number] 05/04/2020 09:50:54 PM EDT [facility] Name Value Range Interpretation Code Description Data Estella rce(s) Supporting Document(s) SPECIMEN DESCRIPTION [facility] COVID19 RESULT (NDET) [facility] THIS ASSAY AMPLIFIES AND DETECTSTHE TARG ET RNA USING REAL-TIME PCR.NEGATIVE 2019_NCOV RT-PCR RESULTS DONOT PRECLUDE 2019_NCOV INFECTION ANDSHOULD NOT BE USED THE SOLE BASISFOR PATIENT MANAGEMENT DECISIONS. COMMENT [facility] UNDER AN EMERGENCY USE AUTHORIZATION(EUA ) FOR THE DETECTION AND/OR DIAGNOSISOF THE VIRUS THAT CAUSES COVID-19.RESULTS EMAILED TO IC AT 21:04 ON 05/04/20. ID Date Data Source [id number] 05/04/2020 06:24:00 PM EDT [facility] DATE OF EXAM: 05/04/2020US OB Greater Th an 14 Wks Single INDICATION: GROWTH, PLACENTATION, PRESENTATION, ADEN. Estimated gestational age 31 weeks 1 day COMPARISON: 04/02/2020. FINDINGS: Single intrauterine gestation is identified in cephalic presentation. The placenta is anterior, grade II. No placenta previa or abruption. Cardiac activity and movement are observed. heart rate is 121 BPM. Normal appearing amount of amniotic fluid. The ADEN is 12.5 cm and is between the 5th percentile (8.8 cm) and 50th percentile (14.4 cm). MEASUREMENTS: BPD 7.4 cm, CORRESPONDS 30 w 0 d. Head circumference 28.5 cm, CORRESPONDS 31 w 3 d. Abdominal circumference 26.6 cm, CORRESPONDS 30 w 5 d. Femur length 5.5 cm , CORRESPONDS 29 w 3 d. Cephalic index is within normal limits. Estimated weight is 1556 + / - 233 gm. IMPRESSION: Single live intrauterine gestation of 30 weeks 4 days in cephalic presentation. Anterior placenta, no previa or abruption. Normal ADEN. Estimated weight is 1556 gm. Professional interpretation performed at [facility] .End of diagnostic report for accession: [id number] Interpreted: Shirin Robert MDTranscribed: 05/04/2020 06:19 PMSigned: 05/04/2020 06:24 PM Shirin Robert MD [facility] ACC # [id number] BILL # [id number] Name Value Range Interpretation Code Description Data Estella rce(s) Supporting Document(s) ID Date Data Source [id number] 05/04/2020 06:19:00 PM EDT [facility] DATE OF EXAM: 05/04/2020Venous Doppler R IGHT Leg CLINICAL HISTORY: LUPUS FLARE, BROKEN LEG COMPARISON: None. TECHNIQUE: Multiple real-time linear array color- flow Doppler images of the deep venous system of the RIGHTlower extremity were obtained. Duplex imaging with color flow Doppler and spectral analysis was used to study the deep venous system. Combination of compressibility and flow augmentation was utilized to assess patency. FINDINGS: Flow is identified in the RIGHTcommon femoral, superficial femoral, popliteal, posterior tibial, anterior tibial and peroneal veins. There is no evidence of deep venous thrombosis. IMPRESSION: No evidence of RIGHTlower extremity deep venous thrombosis. Professional interpretation performed at [facility] [phone].End of diagnostic report for accession: [id number] Interpreted: Shirin Robert MDTranscribed: 05/04/2020 06:18 PMSigned: 05/04/2020 06:19 PM Shirin Robert MD [facility] ACC # [id number] BILL # [id number] Name Value Range Interpretation Code Description Data Estella rce(s) Supporting Document(s) ID Date Data Source [id number] 05/04/2020 04:55:00 PM EDT [facility] DATE OF EXAM: 05/04/2020EXAM: Right Ank le INDICATION: Fracture COMPARISON: None TECHNIQUE: 4 views were obtained. FINDINGS: There is lateral soft tissue swelling. There is a fracture of the distal fibula which is minimally displaced. The ankle mortise is anatomically maintained. IMPRESSION: Minimally displaced fracture of the distal fibula Professional interpretation performed at [facility] .End of diagnostic report for accession: [id number] Interpreted: Aston Moreno MDTranscribed: 05/04/2020 04:54 PMSigned: 05/04/2020 04:55 PM Aston Moreno MD ---- [facility] ACC # [id number] BILL # [id number] Name Value Range Interpretation Code Description Data Estella rce(s) Supporting Document(s) ID Date Data Source [id number] 05/04/2020 02:01:04 PM EDT [facility] Name Value Range Interpretation Code Description Data Estella rce(s) Supporting Document(s) PROTEIN,URINE 30 mg/dL [facility] URINE PROTEIN MAY BE FALSELY ELEVATEDDUR ING TREATMENT WITH AMINOGLYCOSIDESDUE TO METHOD INTERFERENCE. CREATININE,URINE 218.00 mg/dL Lab [facility] URINE TP/CR RATIO 0.14 RATIO (0.00-0.20) [facility] ID Date Data Source [id number] 05/04/2020 01:48:39 PM EDT [facility] Name Value Range Interpretation Code Description Data Estella rce(s) Supporting Document(s) COLOR [facility] PERFORMED AT [address] [place] [address] APPEARANCE [facility] SPEC GRAV URINE 1.030 (1.003-1.030) [facility] PH URINE 6.0 (5.0-7.5) [facility] LEUK ESTERASE (NEG) [facility] CRITERIA FOR CULTURE NOT MET.CULTURE CAN BE ADDED WITHIN 36 HOURS OFCOLLECTION. NITRITE URINE (NEG) [facility] PROTEIN URINE (NEG) [facility] GLUCOSE URINE (NEG) [facility] KETONE URINE (NEG) [facility] [place] UROBILINOGEN 0.2 mg/dL (0-1.0) [facility] [place] BILIRUBIN URINE (NEG) [facility] BLOOD/HGB URINE (NEG) [facility] ID Date Data Source [id number] 05/05/2020 01:02:03 PM EDT [facility] Name Value Range Interpretation Code Description Data Estella rce(s) Supporting Document(s) MEGAN SCREEN @ (NEG) [facility] [place] ID Date Data Source [id number] 05/05/2020 01:02:03 PM EDT [facility] Name Value Range Interpretation Code Description Data Estella rce(s) Supporting Document(s) ANTI-DNA(DS) AB @ <1 IU/mL (0-4) [facility] IU/mL INTERPRETATION LESS THAN 5 NEGATIVE5 TO 9 EQUIVOCALGREATER THAN 9 POSITIVE ID Date Data Source [id number] 05/04/2020 05:24:34 PM EDT [facility] Name Value Range Interpretation Code Description Data Estella rce(s) Supporting Document(s) COMPLEMENT C4 @ 49 mg/dL (10-40) H [facility] ID Date Data Source [id number] 05/04/2020 05:24:34 PM EDT [facility] Name Value Range Interpretation Code Description Data Estella rce(s) Supporting Document(s) COMPLEMENT C3 @ 225 mg/dL (90-180) H [facility] ID Date Data Source [id number] 05/04/2020 03:58:51 PM EDT [facility] SPEC EXP DATE 05/07/2020PATI ENT ABO/Rh O POSITIVEANTIBODY SCREEN NEGATIVETESTING SITE PERFORMED AT [address] [place], [place] [address]BLOOD BANK COMMENT BLOOD TYPE CONFIRMED. Name Value Range Interpretation Code Description Data Estella rce(s) Supporting Document(s) ID Date Data Source [id number] 05/04/2020 03:27:47 PM EDT [facility] Name Value Range Interpretation Code Description Data Estella rce(s) Supporting Document(s) ESR 56 mm/h (0-20) H [facility] ID Date Data Source [id number] 05/04/2020 02:21:27 PM EDT [facility] Name Value Range Interpretation Code Description Data Estella rce(s) Supporting Document(s) C REACTIVE PROTEIN @ 3.2 mg/dL (0.0-0.5) H [facility] PERFORMED AT [address] [place] [address] ID Date Data Source [id number] 05/04/2020 01:03:51 PM EDT [facility] Name Value Range Interpretation Code Description Data Estella rce(s) Supporting Document(s) URIC ACID 4.2 mg/dL (2.6-6.0) [facility] ID Date Data Source [id number] 05/04/2020 01:03:51 PM EDT [facility] Name Value Range Interpretation Code Description Data Estella rce(s) Supporting Document(s) LDH 109 U/L (84-246) [facility] ID Date Data Source [id number] 05/04/2020 01:03:51 PM EDT [facility] Name Value Range Interpretation Code Description Data Estella rce(s) Supporting Document(s) SODIUM 139 mmol/L (136-145) [facility] POTASSIUM 3.4 mmol/L (3.6-5.2) L [facility] CHLORIDE 109 mmol/L (100-108) H [facility] CO2 23 mmol/L (22-31) [facility] ANION GAP 7 mmol/L (7-16) [facility] UREA NITROGEN 6 mg/dL (7-24) L [facility] CREATININE 0.41 mg/dL (0.60-1.00) L [facility] BUN/CREAT RATIO 14.6 RATIO (10.0-20.0) [facility] GLUCOSE 92 mg/dL (70-99) [facility] CALCIUM 8.7 mg/dL (8.4-10.2) [facility] TOTAL PROTEIN 6.1 g/dL (6.4-8.2) L [facility] ALBUMIN 2.5 g/dL (3.5-4.6) L [facility] GLOBULIN 3.6 g/dL (2.7-4.3) [facility] ALB/GLOB RATIO 0.7 RATIO [facility] ALKALINE PHOSPHATASE 191 U/L (45-117) H [facility] BILIRUBIN,TOTAL 0.1 mg/dL (0.0-1.0) [facility] PLEASE NOTE:Total bilirubin results may be falselyelevated in patients taking Eltrombopag. AST (SGOT) 7 U/L (11-39) L [facility] ALT (SGPT) 22 U/L (12-78) [facility] GFR >60 ml/min/1.73m2 (>59) [facility] GFR ( AMER) >60 ml/min/1.73m2 (>59) [facility] GFR INTERPRETATION [facility] --NORMAL KIDNEY FUNCTION OR MILD DISEASE - GFR >OR= 60CHRONIC KIDNEY DISEASE - GFR 15 - 59RENAL FAILURE - GFR <15 Est. GFR calculation based on the MDRDstudy equation, which assumes a steadystate for creatinine. Est. GFR should notbe used for medication dosing. ID Date Data Source [id number] 05/04/2020 12:30:37 PM EDT [facility] Name Value Range Interpretation Code Description Data Estella rce(s) Supporting Document(s) WBC 12.6 10*3/uL (4.1-11.0) H [facility] RBC 4.19 10*6/uL (4.00-5.40) [facility] HGB 10.7 g/dL (12.0-16.0) L [facility] HCT 33.4 % (36.0-47.0) L [facility] PERFORMED AT [address] [facility] [id number] MCV 79.7 fL (80.0-95.0) L [facility] MCH 25.7 pg (27.0-32.0) [facility] MCHC 32.2 g/dL (32.0-36.0) [facility] RDW 14.2 % (10.5-14.5) [facility] PLT 238 10*3/uL (150-450) [facility] MPV 9.1 fL (7.1-10.7) [facility] ID Date Data Source [id number] 05/04/2020 12:28:58 PM EDT [facility] Name Value Range Interpretation Code Description Data Estella rce(s) Supporting Document(s) HOLD TUBE PINK [facility] ID Date Data Source [id number] 04/17/2020 05:52:00 AM EDT [facility] Name Value Range Interpretation Code Description Data Estella rce(s) Supporting Document(s) [facility] Creatinine,RUR result Normal (applies to n on-numeric results) [facility] Test Performed By: [facility] [address] [place] [address] Director: Benito Skaggs MD No established reference values [facility] Total Protein,RUR result Normal (applies t o non-numeric results) [facility] Test Performed By: [facility] [address] [place] [address] Director: Benito Skaggs MD No established reference values [facility] TotProt/CreatRatio result Normal (applies to non-numeric results) [facility] Test Performed By: [facility] [address] [place] [address] Director: Benito Skaggs MD No established reference values ID Date Data Source [id number] 04/16/2020 10:41:00 PM EDT [facility] Name Value Range Interpretation Code Description Data Estella rce(s) Supporting Document(s) Creatinine,Ur Random Normal (applies to non-num carolann results) [facility] Test Performed By: [facility] [address] [place] [address] Director: Benito Skaggs MD No established reference values Total Protein,Urine Random Normal (applies to n on-numeric results) [facility] Test Performed By: [facility] [address] [place] [address] Director: Benito Skaggs MD No established reference values UrTotal Protein/Creat Ratio Normal (applies to non-numeric results) [facility] Test Performed By: [facility] [address] [place] [address] Director: Benito Skaggs MD No established reference values ID Date Data Source [id number] 04/16/2020 06:07:00 PM EDT [facility] Name Value Range Interpretation Code Description Data Estella rce(s) Supporting Document(s) Color,Urine Colorl-Dk Y Normal (applies to non-numeric res ults) [facility] Clarity,Urine Clear Normal (applies to non-numeric re sults) [facility] Specific [place],Urine 1.005-1.030 Normal (applies to non- numeric results) [facility] pH,Urine 5.0-8.0 Normal (applies to non-numeric resul ts) [facility] Protein,Urine Negative Normal (applies to non-numeric re sults) [facility] Glucose,Urine Negative Normal (applies to non-numeric re sults) [facility] Ketones,Urine Negative Normal (applies to non-numeric re sults) [facility] Blood,Urine Negative Normal (applies to non-numeric resu lts) [facility] Bilirubin,Urine Negative Normal (applies to non-numeric results) [facility] Urobilinogen,Urine 0.2-1.0 Normal (applies to non-numer ic results) [facility] Leukocyte Esterase,Urine Negative Normal (applies to non -numeric results) [facility] Nitrite,Urine Negative Normal (applies to non-numeric re sults) [facility] RBC,Urine None Seen Normal (applies to non-numeric resul ts) [facility] WBC,Urine None Seen Normal (applies to non-numeric resul ts) [facility] Casts,Urine None Seen Normal (applies to non-numeric resu lts) [facility] Squamous Cells,Urine None Seen [facility] Bacteria,Urine None Seen [facility] ital Mucus,Urine [facility] Date Data Source [id number] 05/19/2020 10:15:00 AM EDT [facility] Name Value Range Interpretation Code Description Data Estella rce(s) Supporting Document(s) C4 Complement 50 mg/dL 13-39 Very abnormal (applies to non-num carolann units [facility] Test performed [place] [address] ID Date Data Source [id number] 05/19/2020 10:15:00 AM EDT [facility] Name Value Range Interpretation Code Description Data Estella rce(s) Supporting Document(s) [place] Lupus Tech Interpretation Normal (applies to non-numeric results) [facility] Lupus PT Normal (applies to non-numeric results) [facility] Lupus PT INR Normal (applies to non-numeric result s) [facility] Lupus APTT Normal (applies to non-numeric results) [facility] Lupus DRVVT Screen Ratio Normal (applies to non -numeric results) [facility] ID Date Data Source [id number] 05/19/2020 10:14:00 AM EDT [facility] Name Value Range Interpretation Code Description Data Estella rce(s) Supporting Document(s) C4 Complement,S result 50 mg/dL 13-39 Way [facility] Test performed or referred by The [address] [address] ID Date Data Source [id number] 05/19/2020 10:14:00 AM EDT [facility] Name Value Range Interpretation Code Description Data Estella rce(s) Supporting Document(s) [place] Lupus Tech Interpretation Normal (applies to non-numeric results) [facility] RESULT: See Lupus Anticoagulant Interp. [place] Lupus PT result 9.4 - 12.5 Normal (applies to non-numer ic results) [facility] [place] Lupus PT INR result 0.9-1.1 Normal (applies to non-n umeric results) [facility] ADDITIONAL INFORMATIO N Standard intensity warfarin therapeutic range: 2.0 to 3.0 High intensity warfarin therapeutic range: 2.5 to 3.5 [place] Lupus APTT result 33 sec 25 - 37 Normal (applies to non-num carolann results) [facility] [place] Lupus DRVVT Scrn Ratio res <1.20 Way [facility] Test Performed by: [place] [address] Janitor Helper: Steven Victor M.D. Ph.D.; CLIA# [id number] [place] DRVVT Mix Ratio Reflex <1.20 Way [facility] Test Performed by: [place] [address] Janitor Helper: Steven Victor M.D. Ph.D.; CLIA# [id number] [place] DRVVT Confirm Ratio Reflex <1.20 Way [facility] Test Performed by: [place] [address] Janitor Helper: Steven Victor M.D. Ph.D.; CLIA# [id number] [place] Thrombin Time Reflex Normal (applies to non- numeric results) [facility] REFERENCE VALUE------ 15.8 - 24.9 Test Performed by: [address] [address] Janitor Helper: Steven Victor M.D. Ph.D.; CLIA# [id number] [place] Lupus Reviewed By result Normal (applies to non-numeric results) [facility] RESULT: Dori Raygoza M.D., Ph.D. [place] Special Coag Interp Rfx Normal (applies to n on-numeric results) [facility] IMPRESSION: 1) Data are consistent with presence of lupus anticoagulant, provided anticoagulation effects can be excluded. 2) Suggest clinical correlation and, if indicated, consider future follow-up study (at three months' or greater time interval and remote from anticoagulation) to assess lupus anticoagulant (LAC) persistence. 3) If clinically indicated, for additional antiphospholipid antibody evaluation, consider serologic testing for anticardiolipin and/or anti-beta 2 glycoprotein I antibodies, IgG and IgM isotypes. COMMENTS: Mixing study of prolonged dilute Jaimie viper venom time (DRVVT screen and mix ratios) demonstrates significant inhibition, and additional phospholipid significantly shortens the clotting time (DRVVT confirmatory ratio), consistent with presence of lupus anticoagulant, in context of other data. Note: Anticoagulation with direct factor Xa inhibitors (rivaroxaban, apixaban or edoxaban) may result in false-positive lupus anticoagulant test results. Suggest clinical correlation and repeat testing remote from anticoagulant use. Normal activated partial thromboplastin time (APTT) provides no evidence of lupus anticoagulant by this methodology. Test Performed by: [address] [address] Janitor Helper: Steven Victor M.D. Ph.D.; CLIA# [id number] ID Date Data Source [id number] 04/16/2020 06:07:00 PM [facility] Name Value Range Interpretation Code Description Data Estella rce(s) Supporting Document(s) Sodium 140 mmol/L 136-145 Normal (applies to non-numeric resul ts) [facility] Potassium 3.5-5.1 Normal (applies to non-numeric resul ts) [facility] Chloride 106 mmol/L 98-107 Normal (applies to non-numeric resul ts) [facility] Carbon Dioxide CO2 21-32 Normal (applies to non-numer ic results) [facility] Anion Gap 5.0-16.0 Normal (applies to non-numeric resul ts) [facility] BUN 6 mg/dL 7-18 Below low normal [facility] Creatinine,Serum 0.7-1.2 Below low normal [facility] GFR >60 Normal (applies to non-numeric results) [facility] Glucose Level 135 mg/dL 60-99 Above high normal [facility] Reference range is only applicable when patient is fasting Note the following drug interference: Sulfasalazine Sulfapyridine Can see falsely depressed Can see falsely elevated result with up to 17% results with up to 11% decrease in measurement increase in measurement Recommend patients be collected for this test prior to administration of either drug. Calcium 8.5-10.1 Normal (applies to non-numeric resul ts) [facility] Bilirubin,Total 0.1-1.9 Normal (applies to non-numeric results) [facility] SGOT(AST) 12 U/L 15-37 Below low normal [facility] Note the following drug interference: Sulfasalazine Sulfapyridine Can see falsely depressed Can see falsely elevated result with up to 10% results with up to 10% decrease in measurement increase in measurement Recommend patients be collected for this test prior to administration of either drug. SGPT(ALT) 23 U/L 12-78 Normal (applies to non-numeric resul ts) [facility] Note the following drug interference: Sulfasalazine Sulfapyridine Can see falsely depressed Can see falsely elevated result with up to 29% results with up to 10% decrease in measurement increase in measurement Recommend patients be collected for this test prior to administration of either drug. Alkaline Phosphatase 179 U/L 38-126 Above high normal [facility] can increase Alkaline Phosp le vels up to 2 times the normal adult value. Normal values for children and adolescents are 2 to 3 times the normal adult value. Total Protein 6.0-8.2 Normal (applies to non-numeric re sults) [facility] Albumin Level 3.4-5.0 Below low normal [facility] ID Date Data Source [id number] 04/19/2020 12:36:00 PM EDT [facility] Name Value Range Interpretation Code Description Data Estella rce(s) Supporting Document(s) C3 Complement 254 mg/dL 81-157 Very abnormal (applies to non-num carolann units [facility] Test [place] [address] ID Date Data Source [id number] 04/19/2020 12:21:00 PM EDT [facility] Name Value Range Interpretation Code Description Data Estella rce(s) Supporting Document(s) C3 Complement,S result 254 mg/dL 81-157 Way [facility] Test [place] [address] ID Date Data Source [id number] 04/17/2020 05:51:00 AM EDT [facility] Value Range Interpretation Code Description Data Estella rce(s) Supporting Document(s) CRP,Wide Range result <3.00 [facility] Test Performed By: [facility] [address] [place] [address] Director: Benito Skaggs MD ID Date Data Source [id number] 04/16/2020 10:17:00 PM EDT [facility] Name Value Range Interpretation Code Description Data Estella rce(s) Supporting Document(s) C-Reactive Protein,Wide Range <3.00 Above high normal [facility] Test Performed By: [facility] [address] [place] [address] Director: Benito Skaggs MD ID Date Data Source [id number] 04/16/2020 06:07:00 PM [facility] Value Range Interpretation Code Description Data Estella rce(s) Supporting Document(s) White Blood Count 3.5-10.5 Above high normal [facility] Red Blood Count 3.90-5.00 Normal (applies to non-numeric results) [facility] Hemoglobin 12.0-15.5 Below low normal [facility] Hematocrit 34.9-44.5 Below low normal [facility] Mean Corpuscular Volume 81.2-95.1 Below low normal [facility] Mean Corpuscular Hgb 25.6-32.2 Normal (applies to non-num carolann results) [facility] Mean Corpuscular Hgb Conc 32.0-36.0 Normal (applies to no n-numeric results) [facility] Red Cell Distribution Width 11.9-15.5 Normal (appli es to non-numeric results) [facility] Platelet Count 276 x10 3/uL 150-450 Normal (applies to non-numeric results) [facility] Mean Platelet Volume 9.4-12.4 Normal (applies to non-num carolann results) [facility] Neutrophils% (Auto) 31.0-71.0 Above high normal [facility] Lymphocytes% (Auto) 20.0-55.0 Below low normal [facility] Monocytes% (Auto) 4.0-12.0 Below low normal [facility] Eosinophils% (Auto) 1.0-8.0 Below low normal [facility] Basophils% (Auto) 0.0-2.0 Normal (applies to non-numeri c results) [facility] Immature Granulocytes% (Auto) 0.0-2.0 Normal (cecliy lies to non-numeric results) [facility] Neutrophils# (Auto) 1.50-6.20 Above high normal [facility] Lymphocytes# (Auto) 1.20-4.00 Normal (applies to non-nume margie results) [facility] Monocytes# (Auto) 0.00-0.90 Normal (applies to non-numeri c results) [facility] Eosinophils# (Auto) 0.00-0.50 Normal (applies to non-nume margie results) [facility] Basophils# (Auto) 0.00-0.20 Normal (applies to non-numeri c results) [facility] Immature Granulocytes# (Auto) 0.00-7.00 No rmal (applies to non-numeric results) [facility] ID Date Data Source [id number] 04/16/2020 01:19:30 PM EDT [facility] Name Value Range Interpretation Code Description Data Estella rce(s) Supporting Document(s) Progress Note [facility] [id number] lbm [file] [id number] ID Date Data Source [id number] 04/16/2020 10:31:24 AM EDT [facility] Name Value Range Interpretation Code Description Data Estella rce(s) Supporting Document(s) Color of Urine [facility] Clarity of Urine [facility] Glucose [Mass/volume] in Urine by Test strip Negative [facility] Bilirubin.total [Presence] in Urine by Test strip Negative [facility] Ketones [Mass/volume] in Urine by Test strip Negative [facility] Specific gravity of Urine by Test strip 1.015 1.005-1.025 [facility] Hemoglobin [Presence] in Urine by Test strip Negative [facility] pH of Urine by Test strip 6.0 5.0-8.0 [facility] Protein [Mass/volume] in Urine by Test strip Negative [facility] Urobilinogen [Units/volume] in Urine by Test strip 0.2 {Ehrlich_U}/ dL 0.2-1.0 [facility] Nitrite [Presence] in Urine by Test strip Negative [facility] Leukocyte esterase [Presence] in Urine by Test strip Negat socrates [facility] ID Date Data Source [id number] 04/06/2020 08:36:55 AM EDT [facility] Name Value Range Interpretation Code Description Data Estella rce(s) Supporting Document(s) Progress Note [facility] RNLFUd2wVyFIKrFq84/ZGZjsHJJvv9KnBDolFPl5UZivXMZcK6CiLLW2xX9lILO3JWtSXtAnWnEdBOA6 lbm [file] ICAgICAgICAgICAgICAgICAgICAgICAgICAgICAgICAgICAgICAgICAgICAgICAgICAgICAgICAgICAg ICAgICAgICAgICAgICAgICAgICAgICAgICAgICAgICAgICAgICAgDQogICAgICAgICAgICAgICAgICAg ICAgICAgICAgICAgICAgICAgICAgICAgICAgICAgIC AgICAgICAgICAgICAgICAgICAgICAgICAgICAgICAgICAgICAgICAgICAgICAgICAgDQogICAgICAgIC AgICAgICAgICAgICAgICAgICAgICAgICAgICAgICAgICAgICAgICAgICAgICAgICAgICAgICAgICAgIC AgICAgICAgICAgICAgICAgICAgICAgICAgICAgICAg DQogICAgICAgICAgICAgICAgICAgICAgICAgICAgICAgICAgICAgICAgICAgICAgICAgICAgICAgICAg ICAgICAgICAgICAgICAgICAgICAgICAgICAgICAgICAgICAgICAgICAgDQogICAgICAgICAgICAgICAg ICAgICAgICAgICAgICAgICAgICAgICAgICAgICAgIC AgICAgICAgICAgICAgICAgICAgICAgICAgICAgICAgICAgICAgICAgICAgICAgICAgICAgDQogICAgIC AgICAgICAgICAgICAgICAgICAgICAgICAgICAgICAgICAgICAgICAgICAgICAgICAgICAgICAgICAgIC AgICAgICAgICAgICAgICAgICAgICAgICAgICAgICAg ICAgDQogICAgICAgICAgICAgICAgICAgICAgICAgICAgICAgICAgICAgICAgICAgICAgICAgICAgICAg ICAgICAgICAgICAgICAgICAgICAgICAgICAgICAgICAgICAgICAgICAgICAgDQogICAgICAgICAgICAg ICAgICAgICAgICAgICAgICAgICAgICAgICAgICAgIC AgICAgICAgICAgICAgICAgICAgICAgICAgICAgICAgICAgICAgICAgICAgICAgICAgICAgICAgDQogIC AgICAgICAgICAgICAgICAgICAgICAgICAgICAgICAgICAgICAgICAgICAgICAgICAgICAgICAgICAgIC AgICAgICAgICAgICAgICAgICAgICAgICAgICAgICAg ICAgICAgDQogICAgICAgICAgICAgICAgICAgICAgICAgICAgICAgICAgICAgICAgICAgICAgICAgICAg HUNqXIZtUCOgPTCaNBRaRUYcOIHgLTXvGKFyUSXyPZYqJGGzTRGaEJVmHZMrUXYdQIw0V4dgDDJoKBVv FM6sHBi6Sw7+URbLDaJbYFH4zpUdnB1JWG1ty3YuGP meYNZpz6WgMSc6EW7CIGBrCIuuVZ6VHHhlhs4LAYFdCRJkbRWVn4xgYiQaBIM8NVSeZliaZJ6BHGGyI4 cbaoWyWMMhNFLZIQgdCXEFVX6LMdWiL6SajN34MWXVQx4+ZMeievYzFuuGQbB2PVGzb6AzIKi1OG9HHC KnGplcd8GtHyPaHVCDWQwzKO7FSLX7JXC2VWTpYf5V XUQiZ156tlSbLF7EVh0TArMdMS5yeb6SHlVfGOVyExiSHkv7XAdmUV6AaSAzHUwKtc8vqcBskcNPz8Yn qtPedVYFqEQxbB0xVTSbJ4GshXHrgC5jELYXRq3yFPUsOW7qUk3pSBZbIFGkNpMiBUNDMI6UQGKpENTs mFKaZIFmCBEMWM1QXDsbMKI8AQHpryNhlVKiHZnzOV 9QYXJlbnQgMjQgMCBSDQo+Ta7PPK8pq4BlICidKmIpTO9spn2BRGxDDjZqD7X2mCPmU2M1JUqmIu3TNZ BgFQZmCtRsFSDHTHycDX1LFT1wqbH5JB2VzNPqJCCaEGNgkQExUSz3S72zdNRtFNhpNF2PPSU+Penny+Pg 4WOCWjPATbREDkFaGgVFGYSpYtP8DqM4ZUk6RwH4Vg QQ03pQjkrtGwOMjrXB5XVI7vOAHiDXTODN6JmOGscY9oysKjSYQzXZIRKtQjS40pxTJsXTHlBACuZKBw Pk8ODRJbK3VnyxVtoSzhueGdCDSeDTNLPC6YVDtvetZjqWPmzFkcMU24xXauKO2ZSx7EQgZoQI7lzw9O ySIzNd7WPECfOh2PSAPvVNPqOIIcYCF5WXIpZjVvFU nhYXQeLMBzYHR3ACPkRMXaVV7HScGyDVYaCfG2UyQoIKKbCYXgwl9GKLVlBMKiMQY4RSVuTKShWTLrRN qhAJAyHPFoTRZ9XNMfPNHrVD8SUlOpPFCmFDVnHudeQAGyEPTuuy0GKNOaHDBtHYChVRMsLQTmJLLsJZ phUCOvVIC1Dva1GESvRKIbJV3OPoUqEIGeXZQ1SUEv JTNzLVOgld8QNNCqQWNxVsY1HNCyUDGaMYXkSOxuAZSyWCH8NnD4PHYiVTKbVD6DTgOwIQDiCSy5IJui PHJxWDYwci5NFZBfABPsRJn8IiWvOKThTEVyVSnpURDsCZP8ZDu8EJKhXSNiRW0NAnDyOXUyKDzgOpAa ANJgIJGxer9WOUFoDHLfDHS0EoTcLKXnSMZgINltFI TfXBQwLJXcYIYaJOCyWT0RSrJlQEStAgIeTaQuIYPfKFOvxg3PIWHfOKSfBYK6PAXfZMWvHWPwXXxjAH WtFXPzDsR4CUAgMQSnRB6XGbNoZKZnKgQ7LyalMPUkYYKyra6IKYCtHEXhEoh8DTNjQYEpDINcDFahSF IgESPtAAK6STGvAVEwOR8UUcOnGNFpFvFwFBFxJFNz BUDsng5PESDnDEVdHBj9APTeHGOtSJKkVJniOZLaUZT1OBkeENOtXKZqDO2QEbGaGNBrEtHeIpMtJLUl JJPqlx8LxBOczRankb8OUFuJUx1RkHcrTBH5KZvyDl3nnGTbOlSoXGGMOn1QnxFjSWSqVKMMQPjiHTMj LFHhYwFuKPY7TgQmIyT8MPP3YgZxDMQnNyPcZGZnUh YrZxO5KDXcGZR0OjbtMMGaJKQuXAbrNBI6BKT7P0MbEtQpVwU+RH9oANr+Tn1Jx6EqomE6qkUvABtfZU V4UR1LQFIWZ8VPHf== ID Date Data Source [id number] 04/04/2020 07:09:57 AM EDT Lab [facility] Name Value Range Interpretation Code Description Data Estella rce(s) Supporting Document(s) GLU CHALLENGE TEST @ 135 mg/dL (<140) [facility] LITERATURE SUGGESTS RESULTS <140 MG/DL I N A FEMALE RULE OUT GESTATIONAL DIABETES.PATIENTS WITH RESULTS > OR = 140 MAY NEED AGLUCOSE TOLERANCE TEST FOLLOW UP. NOREFERENCE RANGE FOR NON- PATIENTS.PERFORMED AT [address] [facility] [address] ID Date Data Source [id number] 04/06/2020 04:22:45 PM EDT [facility] Name Value Range Interpretation Code Description Data Estella rce(s) Supporting Document(s) DRVVT SCREEN @ 41.4 s (<44.1) [facility] LUPUS ANTICOAGULANT IS NOT DETECTED IN T [facility]. IF CLINICALHISTORY STRONGLY SUGGESTS THE PRESENCE OF ALUPUS ANTICOAGULANT, FURTHER TESTINGIS RECOMMENDED. APTT @ 26.2 s (22.0-34.3) [facility] [place] A NORMAL APTT DOES NOT RULE OUT THE PRES ENCEOF A LUPUS ANTICOAGULANT. IF CLINICAL HISTORYIS STRONGLY SUGGESTIVE, FURTHER TESTING ISRECOMMENDED. CARDIOLIPIN IGA @ 1 APL (0-12) [facility] CARDIOLIPIN IGG @ 3 GPL (0-15) [facility] CARDIOLIPIN IGM @ 18 MPL (0-12) H [facility] ID Date Data Source [id number] 04/03/2020 11:49:35 PM EDT [facility] Name Value Range Interpretation Code Description Data Estella rce(s) Supporting Document(s) PROTEIN,URINE 27 mg/dL [facility] URINE PROTEIN MAY BE FALSELY ELEVATEDDUR ING TREATMENT WITH AMINOGLYCOSIDESDUE TO METHOD INTERFERENCE. PROTEIN/24HR 81 mg/(24.h) (0-150) [facility] ID Date Data Source [id number] 04/03/2020 11:49:35 PM EDT [facility] Name Value Range Interpretation Code Description Data Estella rce(s) Supporting Document(s) CREATININE,URINE 211.00 mg/dL [facility] CREATININE/24 HR 0.63 g/(24.h) (0.60-2.50) [facility] [place] ID Date Data Source [id number] 04/03/2020 11:26:37 PM EDT [facility] Name Value Range Interpretation Code Description Data Estella rce(s) Supporting Document(s) HOURS OF COLLECTION 24 h [facility] URINE VOLUME 300 mL (800-1800) L [facility] [place] ID Date Data Source [id number] 04/02/2020 07:53:00 PM EDT [facility] DATE OF EXAM: 04/02/2020US OB Greater Th an 14 Wks Single INDICATION: PAIN- PELVIC COMPARISON: 04/02/2020 pelvic sonogram TECHNIQUE: Images of the pelvis were obtained using transabdominal technique. FINDINGS: The examination demonstrates a single intrauterine gestation in vertex presentation. Biparietal diameter - 6.4 cm, 26 weeks 0 daysHead circumference - 24.7 cm, 26 weeks 6 daysAbdominal circumference - 22.0 cm, 26 weeks 3 days Femoral length - 4.5 cm, 24 weeks 5 daysHead/abdomen ratio - 1.1 (within normal limits)Femur/abdomen ratio - 20 (normal 20-24)Cephalic index - 80 (normal 70-86)Approximate weight - 859 g Spontaneous motion was demonstrated on real-time examination. Limited views of anatomy due to patient body habitus. The heart rate is 140 beats per minute. The placenta is located anterior. There is no evidence of placenta previa. The amount of amniotic fluid is qualitatively normal. Amniotic fluid index is 176 mm, which lies between the 50th and 95th percentile for estimated gestational age. The cervical length is 4.9 cm. IMPRESSION: Gestation - singlePresentation - vertexGestational age - 26 weeks 0 days Placenta - anterior, no previaAmniotic fluid - within normal limits Professional interpretation performed at [facility] .End of diagnostic report for accession: [id number] Interpreted: Shirin Robert MDTranscribed: 04/02/2020 07:48 PMSigned: 04/02/2020 07:53 PM Shirin Robert MD [facility] # [id number] BILL # [id number] Name Value Range Interpretation Code Description Data Estella rce(s) Supporting Document(s) ID Date Data Source [id number] 04/02/2020 02:27:00 PM EDT [facility] DATE OF EXAM: 04/02/2020LIMITED OBSTETRI PANDA SONOGRAM INDICATION: Abruption , Approximate Gestational age - 26 weeks 4 days COMPARISON: None TECHNIQUE: Images of the pelvis were obtained using transabdominal technique. FINDINGS: The examination demonstrates a single intrauterine gestation in a cephalic presentation. The heart rate is 145 beats per minute. The placenta is located anterior, no evidence of abruption. There is no evidence of low lying placenta or placenta previa. The amount of amniotic fluid is qualitatively normal. Amniotic fluid index is 14.5cm. The cervical length is 3.8cm. IMPRESSION: Gestation - singlePresentation - cephalicPlacenta - anterior Amniotic fluid - normalComments: No visualized placental abruption Professional interpretation performed at [facility] .End of diagnostic report for accession: [id number] Interpreted: Aston Moreno MDTranscribed: 04/02/2020 02:26 PMSigned: 04/02/2020 02:27 PM Aston Moreno MD ------- N: [id number] [facility] # [id number] [facility] # [id number] Name Value Range Interpretation Code Description Data Estella rce(s) Supporting Document(s) ID Date Data Source [id number] 04/09/2020 09:47:16 PM EDT [facility] Name Value Range Interpretation Code Description Data Estella rce(s) Supporting Document(s) HEXAGONAL PHOS NEUT [facility] NegativeReference range: Negative A lupu s anticoagulant is not detected in the hexagonal phase phospholipid neutralization assay. Lupus anticoagulant antibodies are heterogeneous and laboratory tests used to identify them demonstrate variable sensitivity. No single test will identify all lupus anticoagulant antibodies. The International Society on Thrombosis and Haemostasis recommends using two or more tests, based on different assay principles, to screen for a lupus anticoagulant before the diagnosis is excluded (Thromb Haemost 1995;74:1185-90). Test results should be interpreted in the context of clinical presentation. Performed by [employer] [address] [employer] [facility]BL[facility] [id number] [email or web address] Roger Menon MD, Lab. Director ID Date Data Source [id number] 04/08/2020 01:05:06 AM EDT [facility] Name Value Range Interpretation Code Description Data Estella rce(s) Supporting Document(s) [id number] IGA 1 KENDRA [facility] Reference range: 0 to 20 Performed by [place], [address] [facility] [place] [id number] [email or web address], Roger Menon MD, Lab. Director ID Date Data Source [id number] 04/06/2020 03:09:27 PM EDT [facility] Name Value Range Interpretation Code Description Data Estella rce(s) Supporting Document(s) CARDIOLIPIN IGA @ 1 APL (0-12) [facility] INTERPRET ATION OF RESULTS: < 12 UNITS NEGATIVE 12 - 20 UNITS EQUIVOCAL > 20 UNITS POSITIVE The following result was obtained withthe INOVA QUANTA Lite CAROLYN IgA III SHERI.Results obtained with other manufacturers'assay methods may not be used interchangeably.The magnitude of the reported IgA levelcannot be correlated to an endpoint titer. CARDIOLIPIN IGG @ 3 GPL (0-15) [facility] INTERPRET ATION OF RESULTS: < 15 UNITS NEGATIVE 15 - 19 UNITS EQUIVOCAL 20 - 79 UNITS MOD POSITIVE > 79 UNITS HIGH POSITIVE The following result was obtained withthe INOVA QUANTA Lite CAROLYN IgG III SHERI.Results obtained with other manufacturers'assay methods may not be used interchangeably.The magnitude of the reported IgG levelscannot be correlated to an endpoint titer. CARDIOLIPIN IGM @ 18 MPL (0-12) H [facility] INTERPRET ATION OF RESULTS: < 12 UNITS NEGATIVE 12 - 19 UNITS EQUIVOCAL 20 - 79 UNITS MOD POSITIVE > 79 UNITS HIGH POSITIVE The following result was obtained withthe INOVA QUANTA Lite CAROLYN IgM III SHERI.Results obtained with other manufacturers'assay methods may not be used interchangeably.The magnitude of the reported IgM levelcannot be correlated to an endpoint titer. ID Date Data Source [id number] 04/04/2020 12:49:22 PM EDT [facility] SPECIMEN DESCRIPTION VAGINAL/RECT ALCULTURE RESULTS NEGATIVE: BETA HEMOLYTIC STREPTOCOCCI GROUP B B Y PCRREPORT STATUS FINAL 04/04/2020 Name Value Range Interpretation Code Description Data Estella rce(s) Supporting Document(s) ID Date Data Source [id number] 04/02/2020 06:58:20 PM EDT [facility] Name Value Range Interpretation Code Description Data Estella rce(s) Supporting Document(s) MARGARETH CREWS (NFET) [facility] PERFORMED AT [address] [place] [address] ID Date Data Source [id number] 04/02/2020 05:56:27 PM EDT [facility] Name Value Range Interpretation Code Description Data Estella rce(s) Supporting Document(s) TREPONEMA IGG/IGM @ (NEG) Lab [facility] ID Date Data Source [id number] 04/02/2020 02:44:21 PM EDT [facility] SPECIMEN DESCRIPTION VAGINAL SPEC IMENRESULT NEGATIVE FOR TRICHOMONAS VAGINALIS BY DNA PROBE NEGATIVE FOR GARDNERELLA VAGINALIS BY DNA PROBE NEGATIVE FOR TREASURE SPECIES BY DNA PROBEPERFORMED AT [address] [facility] [address] REPORT STATUS FINAL 04/02/2020 Name Value Range Interpretation Code Description Data Estella rce(s) Supporting Document(s) ID Date Data Source [id number] 04/02/2020 02:38:54 PM EDT [facility] SPEC EXP DATE 04/05/2020PATI ENT ABO/Rh O POSITIVEANTIBODY SCREEN NEGATIVETESTING SITE PERFORMED AT [address] [place], [place] [address]BLOOD BANK COMMENT BLOOD TYPE CONFIRMED. Name Value Range Interpretation Code Description Data Estella rce(s) Supporting Document(s) TYPE AND SCREEN [facility] PATIENT ABO/Rh O POSITIVE ID Date Data Source [id number] 04/02/2020 02:13:07 PM EDT [facility] Name Value Range Interpretation Code Description Data Estella rce(s) Supporting Document(s) URIC ACID 3.6 mg/dL (2.6-6.0) [facility] ID Date Data Source [id number] 04/02/2020 02:13:07 PM EDT [facility] Name Value Range Interpretation Code Description Data Estella rce(s) Supporting Document(s) LDH 139 U/L (84-246) [facility] ID Date Data Source [id number] 04/02/2020 02:13:07 PM EDT [facility] Name Value Range Interpretation Code Description Data Estella rce(s) Supporting Document(s) SODIUM 140 mmol/L (136-145) [facility] POTASSIUM 4.0 mmol/L (3.6-5.2) [facility] CHLORIDE 110 mmol/L (100-108) H [facility] CO2 23 mmol/L (22-31) [facility] ANION GAP 7 mmol/L (7-16) [facility] UREA NITROGEN 3 mg/dL (7-24) L [facility] CREATININE 0.44 mg/dL (0.60-1.00) L [facility] BUN/CREAT RATIO 6.8 RATIO (10.0-20.0) L [facility] GLUCOSE 74 mg/dL (70-99) [facility] CALCIUM 9.1 mg/dL (8.4-10.2) [facility] TOTAL PROTEIN 6.5 g/dL (6.4-8.2) [facility] ALBUMIN 2.8 g/dL (3.5-4.6) L [facility] GLOBULIN 3.7 g/dL (2.7-4.3) [facility] ALB/GLOB RATIO 0.8 RATIO [facility] ALKALINE PHOSPHATASE 174 U/L (45-117) H [facility] BILIRUBIN,TOTAL 0.2 mg/dL (0.0-1.0) [facility] PLEASE NOTE:Total bilirubin results may be falselyelevated in patients taking Eltrombopag. AST (SGOT) 14 U/L (11-39) [facility] ALT (SGPT) 23 U/L (12-78) [facility] GFR >60 ml/min/1.73m2 (>59) [facility] GFR ( AMER) >60 ml/min/1.73m2 (>59) [facility] GFR INTERPRETATION [facility] --NORMAL KIDNEY FUNCTION OR MILD DISEASE - GFR >OR= 60CHRONIC KIDNEY DISEASE - GFR 15 - 59RENAL FAILURE - GFR <15 Est. GFR calculation based on the MDRDstudy equation, which assumes a steadystate for creatinine. Est. GFR should notbe used for medication dosing. ID Date Data Source [id number] 04/02/2020 02:04:26 PM EDT [facility] Name Value Range Interpretation Code Description Data Estella rce(s) Supporting Document(s) PT 10.3 s (9.2-11.9) [facility] PERFORMED AT [address] [facility] [address] INR 0.98 [facility] SUGGESTED THERAPEUTIC RANGES USING INR F ORSTABILIZED ANTICOAGULATED PATIENTS:STANDARD DOSE THERAPY INR 2.0-3.0 DVT, PE, PREVENT DVT OR EMBOLISMHIGH DOSE THERAPY INR 2.5-3.5 PREVENT EMBOLISM FROM MECHANICAL HEART VALVE ID Date Data Source [id number] 04/02/2020 02:04:26 PM EDT [facility] Name Value Range Interpretation Code Description Data Estella rce(s) Supporting Document(s) APTT 28.8 s (22.0-34.3) [facility] [address] [facility] [place] [address] ID Date Data Source [id number] 04/02/2020 01:55:29 PM EDT [facility] Name Value Range Interpretation Code Description Data Estella rce(s) Supporting Document(s) WBC 12.0 10*3/uL (4.1-11.0) H [facility] RBC 4.18 10*6/uL (4.00-5.40) [facility] HGB 10.9 g/dL (12.0-16.0) L [facility] HCT 33.8 % (36.0-47.0) L [facility] PERFORMED AT [address] [facility] [address] MCV 80.9 fL (80.0-95.0) [facility] MCH 26.1 pg (27.0-32.0) L [facility] MCHC 32.3 g/dL (32.0-36.0) [facility] RDW 14.9 % (10.5-14.5) H [facility] PLT 239 10*3/uL (150-450) [facility] MPV 9.7 fL (7.1-10.7) [facility] NEUT % 71.6 % (35.0-75.0) [facility] LYMPH % 20.2 % (16.0-52.0) [facility] MONO % 5.3 % (0.0-8.0) [facility] EOS % 2.7 % (0.0-5.0) [facility] BASO % 0.2 % (0.0-4.0) [facility] NEUT # 8.6 10*3/uL (1.8-7.7) H [facility] LYMPH # 2.4 10*3/uL (1.2-4.8) [facility] MONO # 0.6 10*3/uL (0.0-0.8) [facility] Eosinophils [#/volume] in Blood by Automated count 0.3 10*3/uL (0.0-0 .5) [facility] BASO # 0.0 10*3/uL (0.0-0.2) [facility] ID Date Data Source [id number] 04/02/2020 02:09:41 PM EDT [facility] Name Value Range Interpretation Code Description Data Estella rce(s) Supporting Document(s) PROTEIN,URINE 18 mg/dL [facility] URINE PROTEIN MAY BE FALSELY ELEVATEDDUR ING TREATMENT WITH AMINOGLYCOSIDESDUE TO METHOD INTERFERENCE. CREATININE,URINE 116.00 mg/dL [facility] URINE TP/CR RATIO 0.16 RATIO (0.00-0.20) [facility] [place] ID Date Data Source [id number] 03/20/2020 08:30:26 AM EDT [facility] Service Cmnt XXX-Imp : NoneMicroorganism XXX Cult : DNA probe was POSITIVE for Gardnerella vaginalis.DNA probe was POSITIVE for Treasure species.DNA probe assay was NEGATIVE for Trichomonas vaginalis. Name Value Range Interpretation Code Description Data Estella rce(s) Supporting Document(s) ID Date Data Source [id number] 03/19/2020 02:32:18 PM EDT [facility] Name Value Range Interpretation Code Description Data Estella rce(s) Supporting Document(s) Progress Note [facility] [id number] lbm [file] [id number] ID Date Data Source [id number] 03/19/2020 01:36:50 PM EDT [facility] Name Value Range Interpretation Code Description Data Estella rce(s) Supporting Document(s) Color of Urine [facility] Clarity of Urine [facility] Glucose [Mass/volume] in Urine by Test strip Negative [facility] Bilirubin.total [Presence] in Urine by Test strip Negative [facility] Ketones [Mass/volume] in Urine by Test strip Negative [facility] Specific gravity of Urine by Test strip 1.020 1.005-1.025 [facility] Hemoglobin [Presence] in Urine by Test strip Negative [facility] pH of Urine by Test strip 7.0 5.0-8.0 [facility] Protein [Mass/volume] in Urine by Test strip Negative [facility] Urobilinogen [Units/volume] in Urine by Test strip 0.2 {Ehrlich_U}/ dL 0.2-1.0 [facility] Nitrite [Presence] in Urine by Test strip Negative [facility] Leukocyte esterase [Presence] in Urine by Test strip Negat socrates [facility] ID Date Data Source [id number] 02/26/2020 09:49:30 AM EDT [facility] Name Value Range Interpretation Code Description Data Estella rce(s) Supporting Document(s) Progress Note [facility] [id number] lbm [file] [id number]+lawn technician/[id number]/IPN [file] ID Date Data Source [id number] 02/24/2020 07:31:36 PM EDT [facility] Name Value Range Interpretation Code Description Data Estella rce(s) Supporting Document(s) Leukocytes [#/volume] in Blood by Automated count 12.7 10*3/uL 4-10 H [facility] Erythrocytes [#/volume] in Blood by Automated count 4.24 10*6/uL 4.1- 5.3 [facility] Hemoglobin [Mass/volume] in Blood 11.3 g/dL 11.5-15.5 L [facility] Hematocrit [Volume Fraction] of Blood by Automated count 33.9 % 3 6-45 L [facility] Erythrocyte mean corpuscular volume [Entitic volume] by Auto mated count 79.9 fL 80-96 L [facility] Erythrocyte mean corpuscular hemoglobin [Entitic mass] by Automated count 26.8 pg 27-33 L [facility] Erythrocyte mean corpuscular hemoglobin concentration [Mass/volume] by Automated count 33.5 g/dL 32.0-36.0 [facility] Erythrocyte distribution width [Ratio] by Automated count 16.3 % 11.5-14.5 H [facility] Platelets [#/volume] in Blood by Automated count 221 10*3/uL 150-400 [facility] Differential cell count method - Blood [facility] Neutrophils/100 leukocytes in Blood by Automated count 71 % [facility] Lymphocytes/100 leukocytes in Blood by Automated count 21 % [facility] Monocytes/100 leukocytes in Blood by Automated count 6 % [facility] Eosinophils/100 leukocytes in Blood by Automated count 2 % [facility] Basophils/100 leukocytes in Blood by Automated count 0 % [facility] Neutrophils [#/volume] in Blood by Automated count 8.92 10*3/uL 1.8-7 .0 [facility] Lymphocytes [#/volume] in Blood by Automated count 2.72 10*3/uL 1.2-4 .0 [facility] Monocytes [#/volume] in Blood by Automated count 0.79 10*3/uL 0-0.8 [facility] Eosinophils [#/volume] in Blood by Automated count 0.27 10*3/uL 0-0.5 [facility] Basophils [#/volume] in Blood by Automated count 0.04 10*3/uL 0-0.2 [facility] Nucleated erythrocytes/100 leukocytes [Ratio] in Blood by Automated count 0 /100{WBCs} 0-0 [facility] ID Date Data Source [id number] 02/24/2020 07:59:35 PM [facility] Value Range Interpretation Code Description Data Estella rce(s) Supporting Document(s) Lactate dehydrogenase [Enzymatic activit y/volume] in Serum or Plasma by Lactate to pyruvate reaction 123 U/L 122-214 [facility] ID Date Data Source [id number] 02/24/2020 07:59:35 PM EDT [facility] Name Value Range Interpretation Code Description Data Estella rce(s) Supporting Document(s) Albumin [Mass/volume] in Serum or Plasma by Bromocresol green (BCG) dye binding method 3.5 g/dL 3.5-5.2 [facility] Bilirubin.total [Mass/volume] in Serum or Plasma <1.2 [facility] Calcium [Mass/volume] in Serum or Plasma 9.6 mg/dL 8.6-10.0 [facility] Chloride [Moles/volume] in Serum or Plasma 103 mmol/L 98-107 [facility] Creatinine [Mass/volume] in Serum or Plasma 0.51 mg/dL 0.50-0.90 [facility] Glucose [Mass/volume] in Serum or Plasma 78 mg/dL 70-140 [facility] Alkaline phosphatase [Enzymatic activity/volume] in Serum or Plasma 125 U/L 35-104 H [facility] Potassium [Moles/volume] in Serum or Plasma 4.2 mmol/L 3.4-5.1 [facility] Protein [Mass/volume] in Serum or Plasma 6.6 g/dL 6.4-8.3 [facility] Sodium [Moles/volume] in Serum or Plasma 137 mmol/L 136-145 [facility] Aspartate aminotransferase [Enzymatic activity/volume] in Serum or Plasma 12 U/L <32 [facility] Urea nitrogen [Mass/volume] in Serum or Plasma 5 mg/dL 6-20 L [facility] Osmolality of Serum or Plasma by calculation 281 mosm/kg 275-300 [facility] Creatinine/Urea nitrogen [Mass Ratio] in Serum or Plasma 10 [facility] Bicarbonate [Moles/volume] in Serum 21 mmol/L 22-29 L [facility] Alanine aminotransferase [Enzymatic activity/volume] in Seru m or Plasma 17 U/L <33 [facility] Anion gap 3 in Serum or Plasma 13 mmol/L 8-15 [facility] Albumin/Globulin [Mass Ratio] in Serum or Plasma 1.1 [facility] Glomerular filtration rate/1.73 sq M pre dicted among non-blacks [Volume Rate/Area] in Serum or Plasma by Creatinine-based formula (MDRD) >6 0 [facility] Glomerular filtration rate/1.73 sq M pre dicted among blacks [Volume Rate/Area] in Serum or Plasma by Creatinine-based formula (MDRD) >60 [facility] ID Date Data Source [id number] 02/24/2020 07:59:35 PM EDT [facility] Name Value Range Interpretation Code Description Data Estella rce(s) Supporting Document(s) Urate [Mass/volume] in Serum or Plasma 3.2 mg/dl 2.4-5.7 [facility] ID Date Data Source [id number] [facility] Value Range Interpretation Code Description Data Estella rce(s) Supporting Document(s) Volume of Urine 900 ml [facility] Collection duration of Urine 24 U [facility] Collection of urine specimen start time 1600 [facility] Collection of urine specimen start date [facility] Collection of urine specimen end date [facility] ID Date Data Source [id number] 02/25/2020 01:56:40 PM [facility] Name Value Range Interpretation Code Description Data Estella rce(s) Supporting Document(s) Protein [Mass/time] in 24 hour Urine 0.08 g/(24.h) 0-0.15 [facility] ID Date Data Source [id number] 02/24/2020 03:38:28 PM EDT [facility] Name Value Range Interpretation Code Description Data Estella rce(s) Supporting Document(s) Color of Urine [facility] Clarity of Urine [facility] Glucose [Mass/volume] in Urine by Test strip Negative [facility] Bilirubin.total [Presence] in Urine by Test strip Negative [facility] Ketones [Mass/volume] in Urine by Test strip Negative [facility] Specific gravity of Urine by Test strip 1.020 1.005-1.025 [facility] Hemoglobin [Presence] in Urine by Test strip Negative [facility] pH of Urine by Test strip 7.5 5.0-8.0 [facility] Protein [Mass/volume] in Urine by Test strip Negative [facility] Urobilinogen [Units/volume] in Urine by Test strip 0.2 {Ehrlich_U}/ dL 0.2-1.0 [facility] Nitrite [Presence] in Urine by Test strip Negative [facility] Leukocyte esterase [Presence] in Urine by Test strip Negat socrates [facility] ID Date Data Source [id number] 02/11/2020 02:05:03 PM EDT [facility] Name Value Range Interpretation Code Description Data Estella rce(s) Supporting Document(s) Progress Note [facility] [id number] lbm [file] [id number] ID Date Data Source [id number] 02/14/2020 03:05:30 AM EDT [facility] Name Value Range Interpretation Code Description Data Estella rce(s) Supporting Document(s) Results [facility] (NOTE)AFP Tetra*Screen Negative* Gestational age 19.3 WEEKS [facility] Gestational age method [facility] (NOTE) 07/05 [age] delivery 30.0 yr [facility] Mother's race [facility] Body weight 267 lbs [facility] Insulin dependent diabetes mellitus [Presence] [facility] Multiple [facility] Vvgdz-5-Drbxiqwflyc [Mass/volume] in Serum or Plasma 60.8 ng/mL [facility] Yhkcd-4-Taxlverpkhp [Multiple of the median] adjusted in Ser um or Plasma 1.50 [facility] Choriogonadotropin [Units/volume] in Serum or Plasma 78110 mIU/mL [facility] Choriogonadotropin [Multiple of the median] adjusted in Serum or Plasma 1.08 [facility] Estriol (E3).unconjugated [Mass/volume] in Serum or Plasma 1.03 ng/mL [facility] Estriol (E3).unconjugated [Multiple of the median] adj usted in Serum or Plasma 0.67 [facility] Inhibin A [Mass/volume] in Serum or Plasma 226.55 pg/mL [facility] Inhibin A [Multiple of the median] adjusted in Serum or Plasma 1.74 [facility] Neural tube defect risk [Likelihood] in Fetus 5468 [facility] Trisomy 21 risk [Likelihood] in Fetus 936 [facility] Trisomy 21 risk [Likelihood] Based on maternal age 613 [facility] Trisomy 18 risk [Likelihood] in Fetus [facility] Trisomy 18 risk [Likelihood] Based on maternal age [facility] Comment(NOTE)Interpretation: Screen Nega tiveThis result is screen negative for OSB, Down Syndrome andTrisomy 18. The AFP MoM and patient specific risks calculated arebased on the gestational age and the clinical information provided.This test can identify up to 80% of open neural tube defects.Closed neural tube defects and some open defects may not bedetected by this test. The combination of maternal age, AFP, hCG,uE3, and ROSALINDA identifies 75-80% of Down Syndrome. Thecombination of maternal age, AFP, hCG and uE3 identifies 60% ofTrisomy 18 pregnancies. The [employer] recommends amniocentesis be offered to women age 35 andolder.Recalculations are not recommended when gestational dating by LMP andultrasound are within 10 days. Comments [facility] (NOTE)Elvi Mcduffie, Ph.D., [facility] Genetics Technical DirectorReferences: Available Upon Request.Multiples Of Median Cutoffs Abbreviation Definitions For AFP Elevations IDD- Insulin Dep DiabetesSingleton 2.5 Black 2.8 OSBR- Open Spina BifidaIDD 2.0 Twins 4.5 RiskDSR Cutoff 1:270 DSR- Down Syndrome RiskT18 Cutoff 1:100 T18- Trisomy 18Down Syndrome and Trisomy 18 screening are consideredInvestigationalFor further inquiries contact [facility] [facility] Servicesat [phone].A courtesy copy of this report has been sent to [phone] At: [facility] [id number] [facility], [place] [id number] Saldivar MD Ph:[phone] ID Date Data Source [id number] 02/11/2020 01:02:05 PM EDT [facility] Name Value Range Interpretation Code Description Data Estella rce(s) Supporting Document(s) Color of Urine [facility] Clarity of Urine [facility] Glucose [Mass/volume] in Urine by Test strip Negative [facility] Bilirubin.total [Presence] in Urine by Test strip [facility] Ketones [Mass/volume] in Urine by Test strip Negative [facility] Specific gravity of Urine by Test strip 1.005-1.025 [facility] Hemoglobin [Presence] in Urine by Test strip [facility] pH of Urine by Test strip 5.5 5.0-8.0 [facility] Protein [Mass/volume] in Urine by Test strip Negative [facility] Urobilinogen [Units/volume] in Urine by Test strip 0.2 {Ehrlich_U}/ dL 0.2-1.0 [facility] Nitrite [Presence] in Urine by Test strip Negative [facility] Leukocyte esterase [Presence] in Urine by Test strip Negat socrates [facility] ID Date Data Source [id number] 02/05/2020 06:37:00 PM EDT [facility] Name: WINSOME AKERS [facility] Rec #: [id number] 21 : 1990 Age/Sex: 29F Date of Service: 02/05/20 DISPOSITION SUMMARY Discharge Summary [facility] Name:Winsome Akers Emergency Department Age:29 yrs Sex:Female :1990 Arrival:02/05/2020 18:37 Departure Date02/05/2020 Departure Time21:34 Private MD:Carole Glaser Outcome: Discharge Location: Home/Self Care Condition: Good Chief Complaint: Seizure Diagnosis: Epileptic Seizure - Prescriptions: ondansetron 8 mg Oral - take 8 milligram by SUBLINGUAL route 4 times per day As needed; 20 tablet Follow up: Carole Glaser Custom Notes: Take Zofran if you feel nauseous, take Keppra as prescribed. If you are unable to keep the Keppra down return to emergency room immediately to avoid any future seizures. Follow-up with your neurologist. Attending Physician: Cesar Simpson DO Private MD: Carole Glaser Mid Level Provider: Followup Physician: Carole Glaser Orders: Us Abd Limited Single Organ, US OB Limited Study, levETIRAcetam, NS 0.9%, Ondansetron (PF), Ondansetron Discharge Instruction: Discharge Summary Sheet, Seizure, Adult, Medication Reconciliation Name Value Range Interpretation Code Description Data Estella rce(s) Supporting Document(s) ID Date Data Source [id number] 02/05/2020 06:37:00 PM EDT [facility] Name: WINSOME AKERS [facility] Rec #: [id number] 21 : 1990 Age/Sex: 29F Date of Service: 02/05/20 PHYSICIAN CHART Physician Documentation [facility] Name: Winsome Akers Age: 29 yrs Sex: Female : 1990 Arrival Date: 02/05/2020 Time: 18:37 Bed 3 Private MD: Carole Glaser T ED Physician Cesar Simpson HPI: 02/04 20:36 This 29 yrs old Female presents to ER via ml8 Walk-In with complaints of Seizure. 20:36 The patient presents with a history of multiple seizures. ml8 Context: occurred at home. Seizure Hx: Seizure medications: K eppra. Associated injury: Abdomen:. The patient has experienced a previous episode. The patient has been recently seen by a physician:. 29-year-old female comes in complaining of several seizures. Patient states she has had nausea and vomiting for the past few days and has been unable to tolerate her meds. Has had seizure yesterday and may have fallen on her abdomen. Had 2 seizures today and was brought in by her . I was later informed the patient was seen and over nor and had a normal abdominal ultrasound but left before care was completed. Patient is currently under investigation for covid. 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 aspirin 81 mg Oral tab daily 2. cetirizine 10 mg oral tab 1 tab once daily 3. Vitamin D Oral 50,000 unit once a week 4. fluoxetine 40 mg Oral cap 1 cap once daily 5. levetiracetam 1,000 mg oral tab 1 tab every 12 hours 6. magnesium oxide 400 mg Oral cap daily 7. metformin 500 mg Oral tab 1 tab three times a day 8. metoclopramide HCl 10 mg Oral tab 1 tab three times a day 9. prazosin 1 mg Oral cap 3 caps at bedtime 10. pregabalin 75 mg Oral cap 1 cap daily 11. Vitamin Oral tab 1 tab once daily 12. Seroquel 300 mg Oral tab 1 tab at bedtime 13. Seroquel 50 mg Oral tab 1 tab 2 times per day am and noon 14. clonazepam 0.5 mg Oral tab 1 tab Every 8 hours, PRN 15. Fioricet 50-300-40 mg Oral cap 1 cap as needed for migraine 16. albuterol sulfate 2.5 mg /3 mL (0.083 %) Inhl nebu 3 mL Every 4 hours, PRN 17. Proventil 90 mcg/actuation Inhl aero 2 puffs Every 4 hours, PRN - PMHx: Asthma; PTSD; Epilepsy; Lumbago wirh Sciatica; Migraines; Lupus erythematosus; - PSHx: Unable to Obtain; - Med Reconciliation:: Yellow Alert: The patient's home medication list is partly complete. However, additional information is required to complete list. Medications reviewed, using patient's med list. - Immunization history: The following immunizations are up to date:. - Advance directive: There is no existing advanced directive. Information offered. - Family History:: mother : unknown medical history. Father : unknown medical history. - Social History: Smoking status (Tobacco): Patient's tobacco-smoking history is unknown. Preferred Language: Sammarinese. ROS: 20:38 Constitutional: See HPI. All other systems are negative. ml8 Exam: 20:38 Constitutional: This is a well developed, well nourished ml8 patient who is awake, alert, and in no acute distress. Head/Face: Normocephalic, atra umatic. Neck: Trachea midline, Supple, full range of motion without nuchal rigidity, or vertebral point tenderness. No Meningismus. Cardiovascular: Tachycardic Respiratory: Lungs have equal breath sounds bilaterally, clear to auscultation. No rales, rhonchi or wheezes noted. No increased work of breathing, no retractions or nasal flaring. Abdomen/GI: Soft, non-tender, with normal bowel sounds. No distension or tympany. No guarding or rebound. No evidence of tenderness throughout. Skin: Warm, dry with normal turgor. Normal color with no rashes, no lesions, and no evidence of cellulitis. MS/ Extremity: Pulses equal, no cyanosis. Neurovascular intact. Full, normal range of motion. Neuro: Awake and alert, GCS 15, oriented to person, place, time, and situation. Cranial nerves II-XII grossly intact. Motor strength 5/5 in all extremities. Sensory grossly intact. Cerebellar exam normal. Vital Signs: 18:43 BP 131 / 85; Pulse 136; Resp 18; Temp 97.2; Pulse Ox 97% ; dk2 Weight 122.92 kg; 19:36 BP 102 / 67; Pulse 115; Resp 14; Temp 98.0; Pulse Ox 100% nnq on R/A; 19:58 BP 127 / 78; Pulse 102; Resp 16; Pulse Ox 100% on R/A; nnq 21:31 BP 136 / 87; Pulse 102; Resp 16; Pulse Ox 100% on R/A; nnq MDM: 19:24 Patient medically screened. ml8 20:39 ED course: I was informed by the service transformer repair supervisor the ml8 patient was seen and given or yesterday which she failed to mention to me. Our ultrasound showing single live IUP. Patient was loaded with Keppra and given Zofran. Will provide with Zofran to go and prescriptions. Explained to the patient the importance of notifying providers that she is under investigation for coronavirus. And that she needs to inform the providers about the hospitals that she recently visited.. 02/04 19:47 Order name: [facility] Limited Study EDMS Dispensed Medications: 19:35 Drug: NS 0.9% 1000 ml [sodium chloride 0.9 % intravenous nnq solution] Route: IV; Rate: 999 mL/hr; Site: right forearm; 21:32 Follow up: IV Status: Completed infusion; IV converted to nnq saline lock; IV Intake: 1000ml 19:35 Drug: Ondansetron (PF) 4 mg [ondansetron HCl (PF) 4 mg/2 mL nnq injection solution (2 mL)] Route: IVP; Infused Over: 2 mins; Site: right forearm; 21:34 Follow up: Response: Nausea is decreased; No adverse nnq reaction 19:52 Drug: levETIRAcetam 1500 mg [levetiracetam 500 mg/5 mL nnq intravenous solution] Route: IVPB; Infused Over: 15 mins; Site: right forearm; 21:32 Follow up: Response: No adverse reaction; IV Status: nnq Completed infusion; IV converted to saline lock; IV converted to saline lock, pt. reported she "moved the tubing". noted IV in place, no change 21:33 Drug: ToGo - Ondansetron Oral Disintegrating Tablet 8 mg nnq Route: PO; 21:33 Follow up: take home medication nnq Disposition Summary: 02/05/20 20:41 Discharge Ordered Location: Home/Self Care ml8 Condition: Good ml Diagnosis - Epileptic Seizure ml8 Followup: 8 - With: Carole Glaser - When: 2 - 3 days - Reason: Discharge Instructions: - Discharge Summary Sheet ml8 - Seizure, Adult ml8 Forms: - Medication Reconciliation 8 Prescriptions: - ondansetron 8 mg Oral - take 8 milligrams by SUBLINGUAL route 4 times per ml8 day As needed; 20 tablet; Refills: 0, Product Selection Permitted Signatures: Dispatcher [employer] EDLeslie Osman RN RN Cesar Rico, DO 8 Radha Wright RN RN Elizabeth Faith RN RN nnq Corrections: (The following items were deleted from the chart) 19:47 19:02 US Abd Limited Single Organ+US.RAD.CAN ordered. EDNC EDMS 20:39 20:36 29-year-old female comes in complaining of several ml8 seizures. Patient states she has had nausea and vomiting for the past few days and has been unable to tolerate her meds. Has had seizure yesterday and may have fallen on her abdomen. Had 2 seizures today and was brought in by her . I was later informed the patient was seen and over nor and had a normal abdominal ultrasound but left before care was completed.. 8 20:39 20:36 This 29 yrs old Female presents to [facility] ER via Walk-In with complaints of Seizure. 8 20:40 20:39 ED course: Ultrasound showing single live IUP. [facility] Patient was loaded with Keppra and given Zofran. Will provide with Zofran to go and prescriptions. Explained to the patient the importance of notifying providers that she is under investigation for coronavirus. And that she needs to inform the providers about the hospitals that she recently visited.. 8 Name Value Range Interpretation Code Description Data Estella rce(s) Supporting Document(s) ID Date Data Source [id number] 02/05/2020 06:37:00 PM EDT [facility] Name: WINSOME AKERS [facility] Rec #: [id number] 21 : 1990 Age/Sex: 29F Date of Service: 02/05/20 NURSE CHART Nurse's Notes [facility] Name: Winsome Akers Age: 29 yrs Sex: Female : 1990 Arrival Date: 02/05/2020 Time: 18:37 Bed 3 Private MD: Carole Glaser T Diagnosis: Epileptic Seizure- Presentation: 02/04 18:39 Transition of care: brisa cooper was not received from another [facility] setting of care. Presenting complaint: Friend states - Friend states that patient had a seizure at approximately 1600, her second one today. patient also had a seizure yesterday. patient has a seizure disorder. prior to this her last one was in 2017 per patient. patient is 19 weeks and may have fallen on her stomach yesterday. Have you travelled in the last 30 days? Yes, Where have you travelled? [place], beginning of the month. Have you had contact with an individual with a confirmed diagnosis of Ebola or COVID-19? No. 18:39 Method Of Arrival: Walk-In dk2 18:39 Acuity: Urgent - 3 dk2 18:53 patient has been tested for covid 19 because she is dk2 immunosuppressed and was running a low grade fever. 18:53 mask was placed on patient at the screening desk. patient dk2 placed on droplet precautions because she is not exhibiting any respiratory S/S at this time. Triage Assessment: 18:42 Suicide Screening: Have you had thoughts of harming dk2 yourself or others? No. The patient appears flat; post-ictal. The patient is exhibiting flat affect, quiet. generalized pain; patient is having a lupus flare. Neuro: Level of Consciousness is awake, alert, Patient is oriented to person, pl gloria and time. 18:54 SEPSIS SCREEN: A Confirmed or Suspected Infection is dk2 Unknown, their temperature is not <96.8 or >100.9, their heart rate is not >90, their RR is not >20, it is unknown if their WBC is <4 or >12, the patient does not have new or unexplained altered mental status. SIRS or Sepsis criteria is not present. 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 aspirin 81 mg Oral tab daily 2. cetirizine 10 mg oral tab 1 tab once daily 3. Vitamin D Oral 50,000 unit once a week 4. fluoxetine 40 mg Oral cap 1 cap once daily 5. levetiracetam 1,000 mg oral tab 1 tab every 12 hours 6. magnesium oxide 400 mg Oral cap daily 7. metformin 500 mg Oral tab 1 tab three times a day 8. metoclopramide HCl 10 mg Oral tab 1 tab three times a day 9. prazosin 1 mg Oral cap 3 caps at bedtime 10. pregabalin 75 mg Oral cap 1 cap daily 11. Vitamin Oral tab 1 tab once daily 12. Seroquel 300 mg Oral tab 1 tab at bedtime 13. Seroquel 50 mg Oral tab 1 tab 2 times per day am and noon 14. clonazepam 0.5 mg Oral tab 1 tab Every 8 hours, PRN 15. Fioricet 50-300-40 mg Oral cap 1 cap as needed for migraine 16. albuterol sulfate 2.5 mg /3 mL (0.083 %) Inhl nebu 3 mL Every 4 hours, PRN 17. Proventil 90 mcg/actuation Inhl aero 2 puffs Every 4 hours, PRN - PMHx: Asthma; PTSD; Epilepsy; Lumbago wirh Sciatica; Migraines; Lupus erythematosus; - PSHx: Unable to Obtain; - Med Reconciliation:: Yellow Alert: The patient's home medication list is partly complete. However, additional information is required to complete list. Medications reviewed, using patient's med list. - Immunization history: The following immunizations are up to date:. - Advance directive: There is no existing advanced directive. Information offered. - Family History:: mother : unknown medical history. Father : unknown medical history. - Social History: Smoking status (Tobacco): Patient's tobacco-smoking history is unknown. Preferred Language: Sammarinese. Screenin:17 AUDIT 1. How often do you have a drink containing alcohol? skb Never (0 points). Drug Abuse Screening Test: 1. Have you used drugs other than those required for medical reasons? No (0 points), screen is complete, no risk. Abuse screen: Denies threats or abuse. Nutritional screening: No deficits noted. Pt uses a walker to ambulate (15 pts) The patient's gait is impaired (20 points), cannot walk without assitance. Assessment: 19:22 Reassessment: No Change in symptoms. The patient is nnq behaving appropriately according to age, cooperative. Neuro: Level of Consciousness is awake, alert, obeys commands, Patient is oriented to person, place and time. Outboard Technician strength is equal bilaterally. Strength is normal in all extremities. Patient moves all extremities. Gait is steady, Speech is normal, Facial symmetry appears normal, Pupils: PERRLA. Cardiovascular: Capillary refill is brisk in bilateral fingers. Respiratory: Airway is patent. Respiratory effort is even, unlabored, Respiratory pattern is regular, symmetrical, Patient denies cough, shortness of breath. GI: Abdomen is non- distended The patient reports nausea, The patient denies vomiting. 21:22 Reassessment: Patient states feeling better. Patient states nnq symptoms have improved. The patient is behaving appropriately according to age, cooperative. Neuro: Level of Consciousness is awake, alert, obeys commands, Patient is oriented to person, place and time. Outboard Technician strength is equal bilaterally. Strength is normal in all extremities. Patient moves all extremities. Gait is steady, Speech is normal, Facial symmetry appears normal, Pupils: PERRLA. Cardiovascular: Capillary refill is brisk in bilateral fingers. Respiratory: Airway is patent. Respiratory effort is even, unlabored, Respiratory pattern is regular, symmetrical, Patient denies cough, shortness of breath. GI: Abdomen is non- distended The patie nt denies vomiting, pt. able to tolerate 800 ml of po fluids. denies nausea, at this time. pt. reported that she has a gluten intolerance and can not eat things that have gluten banana rice apple sauce or toast. Pt. reported she was going to "five guys", pt. aware that the food is fried, and could potentially make her stomach upset. Pt. wanted to let this bond writer know she did not leave the doctors yesterday AMA, and that she had d/c instructions. This bond writer aware. Pt. noted to be more alert prior to d/c . Vital Signs: 18:43 BP 131 / 85; Pulse 136; Resp 18; Temp 97.2; Pulse Ox 97% ; dk2 Weight 122.92 kg; 19:36 BP 102 / 67; Pulse 115; Resp 14; Temp 98.0; Pulse Ox 100% nnq on R/A; 19:58 BP 127 / 78; Pulse 102; Resp 16; Pulse Ox 100% on R/A; nnq 21:31 BP 136 / 87; Pulse 102; Resp 16; Pulse Ox 100% on R/A; nnq Vitals: 19:10 Heart Tones 143. nnq ED Course: 18:38 Patient arrived in ED. sfo1 18:39 Carole Glaser is Private Physician. dk2 18:42 Triage completed. dk2 18:52 Ethan Saha, RN is Primary Nurse. dk2 18:54 Arm band placed on right wrist. Patient has correct armband dk2 on for positive identification. Placed in gown. Seizure precautions initiated. 18:59 Cesar Simpson DO is Attending Physician. ml8 19:10 Patient has correct armband on for positive identification, nnq Placed in gown, Bed in low position, Call light in reach, Side rails up X2, family is at the bedside, Seizure precautions initiated. nuclear monitoring technician on. Pulse on is on. NIBP on. 19:23 Inserted saline lock: 20 gauge in right forearm. nnq 19:37 Airborne precautions initiated. pt and family member nnq wearing mask upon entry into ER. 19:51 Primary Nurse role handed off by Ethan Saha, RN skb 19:52 Elizabeth Cody, MARCOS is Primary Nurse. skb 19:58 Radiology: The patient's bedside ultrasound was completed nnq at 19:58. 20:41 Carole Glaser is Referral Physician. ml8 21:31 Discontinued lock bleeding controlled, pressure dressing nnq applied, No redness/swelling at site. 21:33 US OB Limited Study Sent. nnq Administered Medications: 19:35 Drug: NS 0.9% 1000 ml [sodium chloride 0.9 % intravenous nnq solution] Route: IV; Rate: 999 mL/hr; Site: right forearm; 21:32 Follow up: IV Status: Completed infusion; IV converted to nnq saline lock; IV Intake: 1000ml 19:35 Drug: Ondansetron (PF) 4 mg [ondansetron HCl (PF) 4 mg/2 mL nnq injection solution (2 mL)] Route: IVP; Infused Over: 2 mins; Site: right forearm; 21:34 Follow up: Response: Nausea is decreased; No adverse nnq reaction 19:52 Drug: levETIRAcetam 1500 mg [levetiracetam 500 mg/5 mL nnq intravenous solution] Route: IVPB; Infused Over: 15 mins; Site: right forearm; 21:32 Follow up: Response: No adverse reaction; IV Status: nnq Completed infusion; IV converted to saline lock; IV converted to saline lock, pt. reported she "moved the tubing". noted IV in place, no change 21:33 Drug: ToGo - Ondansetron Oral Disintegrating Tablet 8 mg nnq Route: PO; 21:33 Follow up: take home medication nnq Intake: 21:32 IV: 1000ml; Total: 1000ml. nnq Outcome: 20:41 Discharge ordered by . ml8 21:31 Reassessment: Patient denies pain at this time. Patient nnq states feeling better. 21:31 Patient verbalized understanding of disposition instructions. Patient has no functional deficits. Patient awake and alert. obeys commands, Oriented to person, place and time. 21:31 Patient discharged to home ambulatory, with family. 21:31 Condition: stable 21:31 Discharge instructions given to patient, Patient was instructed on discharge instructions, follow up and referral plans. medication usage, The patient demonstrated understanding of instructions, medications, Prescriptions given X 1. 21:31 Vitals are Complete in accordance with Emergency Department Policy. 21:34 Patient left the ED. nnq 02/05 09:22 24 hour call back attempted, no answer 1 Signatures: Phillip Sandhu sfo1 Tammie Ibarra RN RN 1 Leslie Che RN RN johana2 Cesar Simpson DO DO ml8 Radha Wright RN RN Elizabeth Faith RN RN nnq Corrections: (The following items were deleted from the chart) 02/04 18:42 18:39 Presenting complaint: Friend states - Friend states dk2 that patient had a seizure at approximately 1600, her second one today. patient also had a seizure yesterday. patient has a seizure disorder. prior to this her last one was in 2017 per patient dk2 18:46 18:43 Pulse 136bpm; Resp 18bpm; Pulse Ox 97%; Temp 97.2F; dk2 dk2 18:47 18:43 Pulse 136bpm; Resp 18bpm; Pulse Ox 97%; Temp 97.2F; dk2 122.92 kg; dk2 Name Value Range Interpretation Code Description Data Estella rce(s) Supporting Document(s) ID Date Data Source [id number] 02/06/2020 06:40:00 AM EDT [facility] Name: WINSOME AKERS : 1990 A ge/Sex: 29F Ordering Provider: Cesar Simpson DO Med Rec #: [id number] Reg Status: [facility] Room #: Date of Service: 02/05/20 Report Number: [id number] cc:BRISA Scanlon Send Report To: [id number] US/US OB Limited Study Reason for exam: , SEIZURE, ABD INJURY. FINDINGS: EARLIEST ULT: Today. Patient states EDC 07/05/20 EGA 18w 3d GESTATION: Single. PRESENTATION: Transverse, spine down. ADEN: 17.30 cm, MVP 5.11 cm FHR: 144 bpm PLACENTAL LOCATION: Anterior, no previa. CERVICAL LENGTH: 37.9 mm IMPRESSION: Single live intrauterine gestation as described above. Fluoroscopy time in seconds: Number of Exposures: Time Portable Image Performed: Contrast Agent in ml: Method of Administration: REPORT SIGNATURE ON FILE Rep orted By: Johnathan Gar MD <Electronically signed by Johnathan Gar MD> 02/09/20 0650 Dictation Date/Time: 02/05/202014 Transcribed Date/Time: 02/06/20 0640 Iron Piler: [email or web address] Name Value Range Interpretation Code Description Data Estella rce(s) Supporting Document(s) ID Date Data Source [id number] 02/04/2020 10:38:00 PM EDT [facility] Name Value Range Interpretation Code Description Data Estella rce(s) Supporting Document(s) BLOOD TYPE PATIENT O Positive Normal (applies to non-numer ic results) [facility] ANTIBODY SCREEN NEGATIVE Normal (applies to non-numeric results) [facility] ID Date Data Source [id number] 02/06/2020 05:07:00 AM EDT [place] [facility] Department Imaging Report [address] [address] %(RAD)RES..mtdd.print.filter("line") Name: WINSOME AKERS : 1990 Age/Sex: 29F Ordering Provider: BRISA Yun Med Rec #: [id number] Reg Status: DEP ER Room #: Date of Service: 02/04/20 Report Number: [id number] cc:BRISA Yun; PCP None Send Report To: [id number] US/US OB Limited Study Reason for exam: seizure, high risc preg, abdominal pain, tones not dictated FINDINGS: There is a single live intrauterine with heart rate measuring 153 beats per minute. There is good movement. The fetus is in transverse lie (head at the maternal right) There is a low lying placenta at the anterior uterine wall approximately 1.8 cm from the cervical margin. The cervix is normal measuring 5.5 cm. There is adequate amniotic fluid. Impression Limited evaluation of the maternal uterus. No acute abnormality. Electronically signed on Feb 04, 2020 9:46:06 PM EDT by: Bridger Milligan MD Diplomate, [employer] Time portable performed: Fluoroscopy time in seconds: Number of Exposures: Contrast Agent in ml: Method of Administration: REPORT SIGNATURE ON FILE Reported By: Bridger Milligan MD 02/06/20 0507 Dictation Date/Time: 02/04/20 2146 Transcribed Date/Time: 02/06/20506 Iron Piler: SIXTO Name Value Range Interpretation Code Description Data Estella rce(s) Supporting Document(s) ID Date Data Source [id number] 02/24/2020 10:46:00 PM EDT [facility] Name Value Range Interpretation Code Description Data Estella rce(s) Supporting Document(s) TS ABO result Normal (applies to non-numeric re sults) [facility] TS Rh result Normal (applies to non-numeric res ults) [facility] TS ABS result Normal (applies to non-numeric re sults) [facility] Test Performed By: [facility] [address] [place] [address] Director: Benito Skaggs MD ID Date Data Source [id number] 02/06/2020 02:27:00 PM EDT [facility] Name Value Range Interpretation Code Description Data Estella rce(s) Supporting Document(s) Levetiracetam result Very abnormal (applies to non-numeric units [facility] REFERENCE VALUE------ 12.0 - 46.0 ADDITIONAL INFORMATION This test was developed and its performance characteristics determined by [facility] in a manner consistent with CLIA requirements. This test has not been cleared or approved by the U.S. Food and Drug Administration. Test Performed by: [facility] [place] [address] Janitor Helper: Steven Victor M.D. Ph.D.; CLIA# [id number] ID Date Data Source [id number] 02/06/2020 02:09:00 PM EDT [facility] Name Value Range Interpretation Code Description Data [facility] rce(s) Supporting Document(s) Levetiracetam result [facility] REFERENCE VALUE------ 12.0 - 46.0 ADDITIONAL INFORMATION This test was developed and its performance characteristics determined by [facility] in a manner consistent with CLIA requirements. This test has not been cleared or approved by the U.S. Food and Drug Administration. Test Performed by: [facility] [place] [address] Janitor Helper: Steven Victor M.D. Ph.D.; CLIA# [id number] ID Date Data Source [id number] 02/05/2020 10:07:00 AM EDT [facility] Name Value Range Interpretation Code Description Data Estella rce(s) Supporting Document(s) TS ABO result Normal (applies to non-numeric resul ts) [facility] TS Rh result Normal (applies to non-numeric result s) [facility] TS ABS result Normal (applies to non-numeric resul ts) [facility] ID Date Data Source [id number] 02/04/2020 07:21:00 PM [facility] Name Value Range Interpretation Code Description Data Estella rce(s) Supporting Document(s) D-Dimer,Quant 0.19-0.50 Above high normal [facility] The negative predictive value for DVT or PE is at 98% when the result is below the cut off value of 0.50 mg/L FEU. Increases in D-Dimer concentration observed with thromboembolic events can be variable due to localization, size, and age of thrombus. Therefore, a thromboembolic event cannot be diagnosed with certainty on the basis of the reference range. D-Dimers may also be elevated for a variety of disorders including: advanced age, , coronary disease, cancer, liver disease, infection, inflammation, hematoma, DIC, trauma, post surgery, diabetes, thrombolytic therapy, stress, and general hospitialization. D-Dimer levels may be decreased in patients on anticoagulant therapy. ID Date Data Source [id number] 02/04/2020 07:15:00 PM [facility] Name Value Range Interpretation Code Description Data Estella rce(s) Supporting Document(s) Sodium 137 mmol/L 136-145 Normal (applies to non-numeric resul ts) [facility] Potassium 3.5-5.1 Below low normal [facility] Chloride 103 mmol/L 98-107 Normal (applies to non-numeric resul ts) [facility] Carbon Dioxide CO2 21-32 Normal (applies to non-numer ic results) [facility] Anion Gap 5.0-16.0 Normal (applies to non-numeric resul ts) [facility] BUN 6 mg/dL 7-18 Below low normal [facility] Creatinine,Serum 0.7-1.2 Normal (applies to non-numeric results) [facility] GFR >60 Normal (applies to non-numeric results) [facility] Glucose Level 90 mg/dL 60-99 Normal (applies to non-numeric re sults) [facility] Reference range is only applicable when patient is fasting Note the following drug interference: Sulfasalazine Sulfapyridine Can see falsely depressed Can see falsely elevated result with up to 17% results with up to 11% decrease in measurement increase in measurement Recommend patients be collected for this test prior to administration of either drug. Calcium 8.5-10.1 Normal (applies to non-numeric resul ts) [facility] Bilirubin,Total 0.1-1.9 Normal (applies to non-numeric results) [facility] SGOT(AST) 15 U/L 15-37 Normal (applies to non-numeric resul ts) [facility] Note the following drug interference: Sulfasalazine Sulfapyridine Can see falsely depressed Can see falsely elevated result with up to 10% results with up to 10% decrease in measurement increase in measurement Recommend patients be collected for this test prior to administration of either drug. SGPT(ALT) 31 U/L 12-78 Normal (applies to non-numeric resul ts) [facility] Note the following drug interference: Sulfasalazine Sulfapyridine Can see falsely depressed Can see falsely elevated result with up to 29% results with up to 10% decrease in measurement increase in measurement Recommend patients be collected for this test prior to administration of either drug. Alkaline Phosphatase 149 U/L 38-126 Above high normal [facility] can increase Alkaline Phosp le vels up to 2 times the normal adult value. Normal values for children and adolescents are 2 to 3 times the normal adult value. Total Protein 6.0-8.2 Normal (applies to non-numeric re sults) [facility] Albumin Level 3.4-5.0 Below low normal [facility] ID Date Data Source [id number] 02/04/2020 06:55:00 PM EDT [facility] Name Value Range Interpretation Code Description Data Estella rce(s) Supporting Document(s) White Blood Count 3.5-10.5 Above high normal [facility] Red Blood Count 3.90-5.00 Normal (applies to non-numeric results) [facility] Hemoglobin 12.0-15.5 Below low normal [facility] ospital Hematocrit 34.9-44.5 Normal (applies to non-numeric resul ts) [facility] Mean Corpuscular Volume 81.2-95.1 Below low normal [facility] Mean Corpuscular Hgb 25.6-32.2 Below low normal [facility] Mean Corpuscular Hgb Conc 32.0-36.0 Below low normal [facility] Red Cell Distribution Width 11.9-15.5 Above high normal [facility] Platelet Count 261 x10 3/uL 150-450 Normal (applies to non-numeric results) [facility] Mean Platelet Volume 9.4-12.4 Normal (applies to non-num carolann results) [facility] Neutrophils% (Auto) 31.0-71.0 Normal (applies to non-nume margie results) [facility] Lymphocytes% (Auto) 20.0-55.0 Normal (applies to non-nume margie results) [facility] Monocytes% (Auto) 4.0-12.0 Normal (applies to non-numeri c results) [facility] Eosinophils% (Auto) 1.0-8.0 Normal (applies to non-nume margie results) [facility] Basophils% (Auto) 0.0-2.0 Normal (applies to non-numeri c results) [facility] Immature Granulocytes% (Auto) 0.0-2.0 Normal (cecily lies to non-numeric results) [facility] Neutrophils# (Auto) 1.50-6.20 Above high normal [facility] Lymphocytes# (Auto) 1.20-4.00 Normal (applies to non-nume margie results) [facility] Monocytes# (Auto) 0.00-0.90 Normal (applies to non-numeri c results) [facility] Eosinophils# (Auto) 0.00-0.50 Normal (applies to non-nume margie results) [facility] Basophils# (Auto) 0.00-0.20 Normal (applies to non-numeri c results) [facility] Immature Granulocytes# (Auto) 0.00-7.00 No rmal (applies to non-numeric results) [facility] ID Date Data Source [id number] 02/06/2020 07:37:00 AM EDT [facility] COVID-19 Specimen Source NASOPHARYNGEAL Name Value Range Interpretation Code Description Data Estella rce(s) Supporting Document(s) SARS-CoV-2 RNA Normal (applies to non-numeric r esults) [facility] ID Date Data Source [id number] 02/05/2020 08:59:00 PM EDT [facility] COVID-19 Specimen Source NASOPHARYNGEAL Name Value Range Interpretation Code Description Data Estella rce(s) Supporting Document(s) SARS-CoV-2 RNA Undetected Normal (applies to non-numeric r esults) [facility] SARS-CoV-2 RNA is not detected. ------- ADDITIONAL INFORMATION Testing was performed using the anita SARS-CoV-2 assay ([employer] on the anita 6800 System. Fact sheets for this Emergency Use Authorization (EUA) assay can be found at the following links: For Healthcare Providers: https://www.fda.gov/media/841724/download For Patients: https://www.fda.gov/media/202267/download Test Performed by: [place] [address] Janitor Helper: Steven Victor M.D. Ph.D.; CLIA# [id number] ID Date Data Source [id number] 02/04/2020 07:22:00 AM EDT [facility] This Respiratory Panel DOES NOT test for the Novel Coronovirus (2018- nCoV) from [facility]. If patient is suspected of having the Novel 2018 Coronovirus notify the Health Department IMMEDIATELY. ADENOVIRUS: Not detected CORONAVIRUS 229E: Not detected CORONAVIRUS HKU1: Not detected CORONAVIRUS NL63: Not detected CORONAVIRUS OC43: Not detected INFLUENZA A: Not detected INFLUENZA B: Not detected HUMAN METAPNEUMOVIRUS: Not detected PARAINFLUENZA VIRUS 1: Not detected PARAINFLUENZA 2: Not detected PARAINFLUENZA 3: Not detected PARAINFL UENZA 4: Not detected RHINO/ENTEROVIRUS: Not detected RESPIRATORY SYNCYTIAL VIR: Not detected Methodology: Multiplexed PCR Reference Range: None detected BORDETELLA PARAPERTUSSIS: Not detected BORDETELLA PERTUSSIS: Not detected CHLAMYDIA PNEUMONIAE: Not detected MYCOPLASMA PNEUMONIAE: Not detected Name Value Range Interpretation Code Description Data Estella rce(s) Supporting Document(s) ID Date Data Source [id number] 02/03/2020 10:56:00 PM EDT [facility] This Respiratory Panel DOES NOT test for the Novel Coronovirus (2019- nCoV) from [facility]. If patient is suspected of having the Novel 2018 Coronovirus notify the Health Department IMMEDIATELY. Not detectedNot detectedNot detectedNot detectedNot detectedNot detectedNot detectedNot detectedNot detectedNot detectedNot detectedNot detectedNot detectedNot detected Methodology: Multiplexed PCR Reference Range: None detectedNot detectedNot detectedNot detectedNot detected Name Value Range Interpretation Code Description Data Estella rce(s) Supporting Document(s) ID Date Data Source [id number] 01/29/2020 12:06:48 PM EDT [facility] Name Value Range Interpretation Code Description Data Estella rce(s) Supporting Document(s) Progress Note [facility] IAQXDe7wCcSXNfWb83/WUFwdXPApk4FoFSemEDt8YFonHCYnF4HvFQI4rE2vPSN2ORfVQeRoGzArAjC5 [facility] [file] ICAgICAgICAgICAgICAgICAgICAgICAgICAgICAgIC GkXMYlEJKdHYBwWR0NOZVdQIWaORKiCCWiKNEqFGPuZETlWRDlWUOeMAIdLYOwYOQfWULpEIDqHBMuPC WkBWZcQUXmOXVwOFOzXRLgLXBwYGGiIAPuAMVgIQTdUQCcWXQrQEOfRVIuIKGsBWUwRVUvFD0BIZOxNY AgICAgICAgICAgICAgICAgICAgICAgICAgICAgICAg ICAgICAgICAgICAgICAgICAgICAgICAgICAgICAgICAgICAgICAgICAgICAgICAgICAgICAgICAgICAg IEUxAQ9CQSYyIRDyFVLzZJWlZPIlDENkCPPtTCEjUAQxMBRnNVNxNXEhSZZlXDYnKJIeMVQxWCJpUPIh ICAgICAgICAgICAgICAgICAgICAgICAgICAgICAgIC MvXDAkULEfCPLkOCKjPY5MOJHuUYIqOIGzCLEaTGHzUKQpYATkOKOaBBFyKRSoILGwHEXeVXUtQCZzAJ HvUNQhAZJkIPPtCGYcTBImPLItCRRjRPKaECBtFBSsXCUzHGUoHLCuNWDfEMIpJIXaLZUaAKHtFP7PRO AgICAgICAgICAgICAgICAgICAgICAgICAgICAgICAg ICAgICAgICAgICAgICAgICAgICAgICAgICAgICAgICAgICAgICAgICAgICAgICAgICAgICAgICAgICAg RJOmXPDqLM2LYDJzBXQcWQWzTBFkZFTqUPAoPQEbCYMtAIJlRNFaFJUaYYKjFFYkTZEnKFRfTLUqNSMr ICAgICAgICAgICAgICAgICAgICAgICAgICAgICAgIC LyJLOqYQRmLAIiWPPkYXZsWK8POJKkOFRcBEAwBAFqZROnYSAzHEJaDHUlDRGmEWOlRPCiXOPkXUNbKU AgICAgICAgICAgICAgICAgICAgICAgICAgICAgICAgICAgICAgICAgICAgICAgICAgICAgICAgICAgIA 0KICAgICAgICAgICAgICAgICAgICAgICAgICAgICAg ICAgICAgICAgICAgICAgICAgICAgICAgICAgICAgICAgICAgICAgICAgICAgICAgICAgICAgICAgICAg HTHnFIIeYPCxNV2YBDEoMXRxMORcMIKpLGCtRNKdDSZjTYOkELTlSXAiNJGqGXOiXBOlNUVfOUQsRBWz ICAgICAgICAgICAgICAgICAgICAgICAgICAgICAgIC IqQMDrGRTcHHLkKLKoKHYtVYVpZR0DZG12bNNsw7X9GQBnVH8scti/Bh4ZZHwqasSnxNQcHR6OFcXfXK 8pwf4DOgLiTA8bul0FZFnZVjSxV4Y0eRKaCHHlXJGWJrBlG94jCXrlSm09JJksUAIwYaLhJPx6Rd1EDp SxS7jjOALsHiH2QYCoPnWxDRpsOU1Fk7ZaaRRpWGi+ Ja6OKA8tp2HfUZfwFKFzEL0xmo7PHOiDIhAdI2QzhtJ2HVPrTAJrMk9WJTEoMRYslONbAQDoSLITUbPa I1PgzG35BPXWJu0+MCmgueXuHycAScWoGXDnr3HyDGe9NI0DBWHkMFa5cJBbIDBqK6Gev3NpFf73HEZk YjthMp7cODE9VXBcSHOrxdgfAUXkAWOxHe9yCS0wFY IrSYFoIaWfZABADX9BRBQxTVCzfFQxPMTcQWBMJC5BVUvkVOL4TPWgmgEjzERlICtcYG7ATHRcmkZfSS kgMCBSDQo+Jm8WSO8ek5EqCEsdLDUxOA8afu2FJOiEVjKvY4P4pSJaF6V4GTtbOc1EFITcWSJgNQarAI KFMXxwHO3NJM2suiR6ZO0TmJTuHVXlNNFytLYgQAc7 K03xbKZcZPjnBM2ICEK+Penny+Wx7YBPUlFFDmZMNkPhHhMJNEWlRvD7XjI7DOx8NbA9QxEM63eYipseTd LIocCY9LBV6cWZWsGOMTEY1IpZMsfP8fxvOiRZEtQLRZUcJvH56vkNCqLCQjVFJ0PXCmLw3PKRXcU3Bx wgKsvPuayaIeMYEiUHMFDK9PZUkkkoUsiIYjoGwtRQ 21cCdtQE6AUo9PSwBaHP4jfg7VqFMrAr7XXHCqWy2QLPZeAWWmDHBnNIC4LJWdNzGpNSaiYGFnUZQmIQ E2LYLrRWBdVE1XGwItROGgIAh0DVKjBCRnHZIdjc7ZZJFmDEAzBKEbQDZzIGBdHIEgHXwhYXKnDAFjBI G1EWHmYITcSW6ZVvYqLCKfZIVuWpClYJIuDRClnr5I GIViZRMlGcZpYkGpSDRoGYAjURwzQCIbDEE8GCt8DJIbFYTgXV2MAiZyZZEdFBE7LNDoBIYpZEYdbm4C BJQaKRUmYXt6IBHlSHMlJOUqXMgyYXPpKAJ9YDJ8WHSzUHXiKM2DUgVvPQBsNVYoCmMhRMTpMLEthp8B FYPaKINqTiRoUCZeAKBwBXDxMJaaZQZkFYM1ZWWgKW EpAUCvKW9WPiApCZXeSWp8GkwvLVOoRQNyvm6FVFEdBQYqYWM9IFRuDCEwTKLdHJxlDNDlTGB2SnS3ES GmDVBxNX1VCvOmNVTpJVx0TiUmROYdNQUlif3ACVWaQUQdYDq0QGMlFTMyREYkXXpgAAVnKIPjGuFsZI ZzIVXaXK4OWbSeFSPlXyLyZGJkQFRhZOLbeb7KERBr VKHcWPFkXYRtVKKtKKIwKMl3plAhtQKtGTd8DK3HH8CrrrVpYhENRk0Vy426HIEzILVlBq2JT6ajFl2h TYGxNNHJLa9QRDe7KDUtAUH1DUftSIlmWyQmRTRhOmI2NeipAnDyDFzjBum+IDxkMTIxMjVhNzAxODBm YcPgZSL4FcI6VZHxZUOiQNZ5LC9jYJONNa4+HMbzgUEmuCfpMLWECyQpPwt9SWqjBJLQUu7J ID Date Data Source [id number] 01/29/2020 11:55:58 AM EDT [facility] Name Value Range Interpretation Code Description Data Estella rce(s) Supporting Document(s) Color of Urine [facility] Clarity of Urine [facility] Glucose [Mass/volume] in Urine by Test strip Negative [facility] Bilirubin.total [Presence] in Urine by Test strip Negative [facility] Ketones [Mass/volume] in Urine by Test strip Negative [facility] Specific gravity of Urine by Test strip 1.015 1.005-1.025 [facility] Hemoglobin [Presence] in Urine by Test strip [facility] pH of Urine by Test strip 7.0 5.0-8.0 [facility] Protein [Mass/volume] in Urine by Test strip Negative [facility] Urobilinogen [Units/volume] in Urine by Test strip 0.2 {Ehrlich_U}/ dL 0.2-1.0 [facility] Nitrite [Presence] in Urine by Test strip Negative [facility] Leukocyte esterase [Presence] in Urine by Test strip Negat socrates [facility] ID Date Data Source [id number] 01/20/2020 04:36:19 PM EDT [facility] Name Value Range Interpretation Code Description Data Estella rce(s) Supporting Document(s) Progress Note [facility] SAXORh8vMzHETbQr22/QCMliHHSgj2GwOTytKHe3XIauWAUqQ4WwBYI2lA0tQFT4LTqOKfLbUqDgNqXx lbm [file] ICAgICAgICAgICAgICAgICAgICAgICAgICAgICAgICAgICAgICAgICAgICAgICAgICAgICAgICAgICAg ICAgICAgICAgICAgICAgICAgICAgICAgICAgICAgICAgICAgDQogICAgICAgICAgICAgICAgICAgICAg ICAgICAgICAgICAgICAgICAgICAgICAgICAgICAgIC AgICAgICAgICAgICAgICAgICAgICAgICAgICAgICAgICAgICAgICAgICAgICAgDQogICAgICAgICAgIC AgICAgICAgICAgICAgICAgICAgICAgICAgICAgICAgICAgICAgICAgICAgICAgICAgICAgICAgICAgIC AgICAgICAgICAgICAgICAgICAgICAgICAgICAgDQog ICAgICAgICAgICAgICAgICAgICAgICAgICAgICAgICAgICAgICAgICAgICAgICAgICAgICAgICAgICAg ICAgICAgICAgICAgICAgICAgICAgICAgICAgICAgICAgICAgICAgDQogICAgICAgICAgICAgICAgICAg ICAgICAgICAgICAgICAgICAgICAgICAgICAgICAgIC AgICAgICAgICAgICAgICAgICAgICAgICAgICAgICAgICAgICAgICAgICAgICAgICAgDQogICAgICAgIC AgICAgICAgICAgICAgICAgICAgICAgICAgICAgICAgICAgICAgICAgICAgICAgICAgICAgICAgICAgIC AgICAgICAgICAgICAgICAgICAgICAgICAgICAgICAg DQogICAgICAgICAgICAgICAgICAgICAgICAgICAgICAgICAgICAgICAgICAgICAgICAgICAgICAgICAg ICAgICAgICAgICAgICAgICAgICAgICAgICAgICAgICAgICAgICAgICAgDQogICAgICAgICAgICAgICAg ICAgICAgICAgICAgICAgICAgICAgICAgICAgICAgIC AgICAgICAgICAgICAgICAgICAgICAgICAgICAgICAgICAgICAgICAgICAgICAgICAgICAgDQogICAgIC AgICAgICAgICAgICAgICAgICAgICAgICAgICAgICAgICAgICAgICAgICAgICAgICAgICAgICAgICAgIC AgICAgICAgICAgICAgICAgICAgICAgICAgICAgICAg ICAgDQogICAgICAgICAgICAgICAgICAgICAgICAgICAgICAgICAgICAgICAgICAgICAgICAgICAgICAg RUYnGNDsTRSgOJRcAHZjRLIqBBUkPUYaDAGxHRHoMXJcYPLnXVMeUPSnYNVqDLi7X8hlTUOnDZDfJT9p IEz7Lj1+KAiTGePzMKV4ufSypI1CVP3ew1WoMCncNE Udl6BvSCf5HT8KBTZpCYbkHD5NSVwqmw3SIZVrZIQgxTCFx0eqLdRaXDB0GLUgUsczON1XDZKmT6ydvj TzLGEcRUYLWN6MNqWaW3FbaT49KFPKPn1+YEaggkUmSgjIMvC3AGBns3EpOWi0SU8MREVoTjzjg5IqLj CwPWOBXIngBV1PZCV4SUOoOMUzMi7THKXzN382uiKz BN8LOn7IRyBiPB0ilz5QJwPkJEOgGtvHSrw9LSjcAK7AwNVnPKeRnf6sbcHcxiMCt6VfuyOjsJJPJE4l OYKESL5iu1IzGBdeLGCrFXYqJz6sTe0sBERuMGPdZdVpTRDUJG2VKYJwREEosIQpOIKyXXVLBT1ZMQjh UHE4LSBakjTvzMZrBLuuNW5FTFYntbXhPPuhGUUBHS o+Cs8LDC0vo6SnJYhrSVTcEP6jhc3IXKdIOzOhM4P1pKIvK6A4JZphDg4OVPOzHGMjFAcnDOGLUNkfJO 1OOX8gwiA5AX7EhTTuEWCwCVWedVQgUAd1P84lfCFjJMckNF9UXHM+Penny+Tx4SWLIyIXMsKVTfYiElHQ NFVkQhU0LkP0QRw1OjK2WaYU20jCxvcuSkGFavJX6Y KQ7qLTElOUIVCG8LbUPdeL4isiMyJHDaUMUMDqGmR34mfLVsHELvLUE9XNRdEy1UAJAcD1NjvvTvmUip hhVkBREuBFPQRO0UBFfxupMxuSXcbCasIL11lCpaAY1KGv6QOnMfZT7cqu7AnTYjXt9MSTIbWm1AMZAs JQYgXEYiLRX5PRVfBuPkUIavSMMgXFRxVQB7XJDaZT DfWH1RGqYyEYZdSIP1VEVnAOUhAIWtbu8QRQQlFTLxSFTiLcXcFKGmTVZnGIolFGNyIUTaNLE4MVSbYM NxYM1XVbFdCAHvTJP3RYZgWYIoNTFlcq7GTIJtTSNkZSl3MRPbEQUiWZSsQRgbGKKnVKNyTCBvTDQxAF AdSS2KJmRbTAMoXRCkQLslEXYgWKNnsx1DPYXzOPVw JdQ1KAUnMKIvHLDfEXkoKEXuDZC9CiA2CFIwUOHdWC7JAtIwPUGrUQB7PswbBHAiBAOdnj1ZCZYxGCDg ZQCrRtRsSIQwUYRqSWrmKXEoAII6CNixYSMrDEFzTZ2GByXyDRSrRSBuGJlmXHIcZUSeyx4ZELWvNVNp WvPdVgFbZEYtACGkMDciZIOeHFO3GoL5VCEpULYxXB 3GKuDdZBJtKBL9GGRoDYQnWTXxsg4JUNZgOUHsTsW8RkCzDMZhMTZeLIxfCHJqDNX7BbZrVDDaPPDkOS 4UMuEqPYZwEYl3PTGmOHNiTOPjvw7CABUrUMAjARc7TPZwDVIsQMYbHAt3frPjbSYjPUv8JF9HU3Xsof RyOoOBKy3Xg170YTOeTGUoAv7LP9obFh4mFBMsMTCN Wu9MMVf2TdZ7LLD7HdGcF6FpZBY1DdK2UVdmIPQeU3VuLcByMKb+LRh2KYl9BWW8NeFrRcZnINsnOslp RwCqGiXyPdHzSkN4SS5gNIKDQy6+TKpcwRUasIebTIYUXoV2CQh1PNdsXZKQIh7Y ID Date Data Source [id number] 01/16/2020 12:49:00 PM [facility] Imaging Services Department Imaging Report [address] [place] [address] %(RAD)RES..mtdd.print.filter("line") Name: WINSOME AKERS : 1990 Age/Sex: 29F Ordering Provider: Carole Glaser MD Med Rec #: [id number] Reg Status: [facility] REF Room #: Date of Service: 01/16/20 Report Number: [id number] cc:BRISA Scanlon; Carole Glaser MD Send Report To: [id number] MRV/MRV BRAIN Reason for exam: MIGRAINE FINDINGS: 3D Time Of Flight imaging was utilized to perform MR Venography of the brain. There is normal flow demonstrated at the deep cerebral veins and at the dural venous sinuses including the transverse, straight, sigmoid and superior sagittalsinuses. There is no filling defect seen to suggest dural venous thrombosis. Additional MIP images were obtained. IMPRESSION: Unremarkable MR Venogram of the brain. Time portable performed: Fluoroscopy time in seconds: Number of Exposures: Contrast Agent in ml: Method of Administration: REPORT SIGNATURE ON FILE Reported By: Phil Welsh MD <Electronically signed by Phil Welsh MD> 01/19/20 1353 Dictation Date/Time: 01/16/20 1157 Transcribed Date/Time: 01/16/20 1249 Iron Piler: [email or web address] Name Value Range Interpretation Code Description Data Estella rce(s) Supporting Document(s) ID Date Data Source [id number] 01/16/2020 12:43:00 PM [facility] Imaging Services Department Imaging Report [address] [place] [address] %(RAD)RES..mtdd.print.filter("line") Name: WINSOME AKERS : 1990 Age/Sex: 29F Ordering Provider: Carole Glaser MD Med Rec #: [id number] Reg Status: [facility] REF Room #: Date of Service: 01/16/20 Report Number: [id number] cc:BRISA Scanlon; Carole Glaser MD Send Report To: [id number] MRI/MRI Brain (Inc Stem) No Con Reason for exam: MIGRAINE FINDINGS: There is no focal lesion of abnormal increased or decreased signal intensity. There is no mass, mass effect, midline shift, extra-axial fluid collection, or intracranial hemorrhage. The ventricles are normal size and configuration and the craniocervical junction is within normal limits. Normal flow voids are present within the major intracranial vessels. No acute infarction is identified. The orbits are unremarkable. Moderate mucosal thickening is presentat the ethmoidal air cells. There is mild mucosal thickening at bilateral maxillary and at the right sphenoid sinus. Some mild mucosal thickening is seen at the frontal sinuses. IMPRESSION: Intracranially unremarkable MRI of the brain. Moderate ethmoidal, mild bilateral maxillary, bilateral frontal, right sphenoidal sinus disease. Time portable performed: Fluoroscopy time in seconds: Number of Exposures: Contrast Agent in ml: Method of Administration: REPORT SIGNATURE ON FILE Reported By: Phil Welsh MD <Electronically signed by Phil Welsh MD> 01/19/20 1353 Dictation Date/Time: 01/16/20 1157 Transcribed Date/Time: 01/16/20 1243 Iron Piler: [email or web address] Name Value Range Interpretation Code Description Data Estella rce(s) Supporting Document(s) ID Date Data Source [id number] 01/09/2020 06:56:39 PM [facility] Name Value Range Interpretation Code Description Data [facility] rce(s) Supporting Document(s) Progress Note [facility] [id number]/FQNllCVBig3PrJEwhGVj4WOivSIRzZ4OgESD6cS8jVET7XLyTAqOmKxEwWuR9 [facility] [file] [id number] ID Date Data Source [id number] 01/08/2020 02:11:28 PM EST [facility] Name Value Range Interpretation Code Description Data Estella rce(s) Supporting Document(s) Color of Urine [facility] Clarity of Urine [facility] Glucose [Mass/volume] in Urine by Test strip Negative [facility] Bilirubin.total [Presence] in Urine by Test strip Negative [facility] Ketones [Mass/volume] in Urine by Test strip Negative [facility] Specific gravity of Urine by Test strip 1.025 1.005-1.025 [facility] Hemoglobin [Presence] in Urine by Test strip Negative [facility] pH of Urine by Test strip 7.5 5.0-8.0 [facility] Protein [Mass/volume] in Urine by Test strip Negative [facility] Urobilinogen [Units/volume] in Urine by Test strip 0.2 {Ehrlich_U}/ dL 0.2-1.0 [facility] Nitrite [Presence] in Urine by Test strip Negative [facility] Leukocyte esterase [Presence] in Urine by Test strip Negat socrates [facility] ID Date Data Source [id number] 12/25/2019 05:20:02 PM [facility] Name Value Range Interpretation Code Description Data Estella rce(s) Supporting Document(s) Leukocytes [#/volume] in Blood by Automated count 11.3 10*3/uL 4-10 H [facility] Erythrocytes [#/volume] in Blood by Automated count 4.53 10*6/uL 4.1- 5.3 [facility] Hemoglobin [Mass/volume] in Blood 11.2 g/dL 11.5-15.5 [facility] Hematocrit [Volume Fraction] of Blood by Automated count 35.4 % 3 6-45 L [facility] Erythrocyte mean corpuscular volume [Entitic volume] by Auto mated count 78.2 fL 80-96 L [facility] Erythrocyte mean corpuscular hemoglobin [Entitic mass] by Automated count 24.6 pg 27-33 L [facility] Erythrocyte mean corpuscular hemoglobin concentration [Mass/volume] by Automated count 31.5 g/dL 32.0-36.0 [facility] distribution width [Ratio] by Automated count 17.2 % 11.5-14.5 H [facility] Platelets [#/volume] in Blood by Automated count 283 10*3/uL 150-400 [facility] ID Date Data Source [id number] 12/25/2019 06:15:24 PM [facility] Name Value Range Interpretation Code Description Data Estella rce(s) Supporting Document(s) Choriogonadotropin.beta subunit [Moles/volume] in Seru m or Plasma [id number] m[IU]/mL <5 H [facility] Confirmed ID Date Data Source [id number] 12/25/2019 06:15:24 PM [facility] Name Value Range Interpretation Code Description Data Estella rce(s) Supporting Document(s) Albumin [Mass/volume] in Serum or Plasma by Bromocresol green (BCG) dye binding method 4.0 g/dL 3.5-5.2 [facility] Bilirubin.total [Mass/volume] in Serum or Plasma <1.2 [facility] Calcium [Mass/volume] in Serum or Plasma 9.3 mg/dL 8.6-10.0 [facility] Chloride [Moles/volume] in Serum or Plasma 100 mmol/L 98-107 [facility] Creatinine [Mass/volume] in Serum or Plasma 0.50 mg/dL 0.50-0.90 [facility] Glucose [Mass/volume] in Serum or Plasma 77 mg/dL 70-140 [facility] Alkaline phosphatase [Enzymatic activity/volume] in Serum or Plasma 83 U/L 35-104 [facility] Potassium [Moles/volume] in Serum or Plasma 3.3 mmol/L 3.4-5.1 L [facility] Protein [Mass/volume] in Serum or Plasma 7.0 g/dL 6.4-8.3 [facility] Sodium [Moles/volume] in Serum or Plasma 137 mmol/L 136-145 [facility] Aspartate aminotransferase [Enzymatic activity/volume] in Serum or Plasma 13 U/L <32 [facility] Urea nitrogen [Mass/volume] in Serum or Plasma 5 mg/dL 6-20 L [facility] Osmolality of Serum or Plasma by calculation 280 mosm/kg 275-300 [facility] Creatinine/Urea nitrogen [Mass Ratio] in Serum or Plasma 10 [facility] Bicarbonate [Moles/volume] in Serum 22 mmol/L 22-29 [facility] Alanine aminotransferase [Enzymatic activity/volume] in Seru m or Plasma 22 U/L <33 [facility] Anion gap 3 in Serum or Plasma 15 mmol/L 8-15 [facility] Albumin/Globulin [Mass Ratio] in Serum or Plasma 1.3 [facility] Glomerular filtration rate/1.73 sq M pre dicted among non-blacks [Volume Rate/Area] in Serum or Plasma by Creatinine-based formula (MDRD) >6 0 [facility] Glomerular filtration rate/1.73 sq M pre dicted among blacks [Volume Rate/Area] in Serum or Plasma by Creatinine-based formula (MDRD) >60 [facility] ID Date Data Source [id number] 12/25/2019 06:15:24 PM [facility] Value Range Interpretation Code Description Data Estella rce(s) Supporting Document(s) Urate [Mass/volume] in Serum or Plasma 2.6 mg/dl 2.4-5.7 [facility] ID Date Data Source [id number] 12/25/2019 06:36:00 PM [facility] Value Range Interpretation Code Description Data Estella rce(s) Supporting Document(s) Lactate dehydrogenase [Enzymatic activit y/volume] in Serum or Plasma by Lactate to pyruvate reaction 151 U/L 122-214 [facility] ID Date Data Source [id number] 12/26/2019 09:24:21 AM [facility] Value Range Interpretation Code Description Data Estella rce(s) Supporting Document(s) Lead [Mass/volume] in Blood <5 [facility] Abnormal Range 5 - 9 ug/dL (Associate d with adverse health effects) 10 - 44 ug/dL (High) 45 - 69 ug/dL (Urgent) >/= 70 ug/dL (Emergent)Testing done by electrothermal atomicabsorption with Zeeman background correction ID Date Data Source [id number] 12/26/2019 12:32:07 PM [facility] Value Range Interpretation Code Description Data Estella rce(s) Supporting Document(s) Sjogrens syndrome-B extractable nuclear Ab [Units/volume] in Serum by Immunofluorescence 9 [AU]/mL 0-99 [facility] ID Date Data Source [id number] 12/26/2019 12:32:07 PM [facility] Value Range Interpretation Code Description Data Estella rce(s) Supporting Document(s) Sjogrens syndrome-A extractable nuclear Ab [Units/volume] in Serum by Immunofluorescence 67 [AU]/mL 0-99 [facility] ID Date Data Source [id number] 12/29/2019 10:05:48 PM [facility] Value Range Interpretation Code Description Data Estella rce(s) Supporting Document(s) Complement total hemolytic CH50 [Units/volume] in Serum or Plasma >41 [facility] (NOTE) Age Mal e Female 1 - 30 days Not Estab. Not Estab. 31 days - 6 months >32 >20 7 months - 17 years >39 >39 >17 years >41 >41NOTE: The adult (">17 years") reference interval range is used to flag abnormals on this report. If the patient is 17 years old or younger, use the table above to determine out of range values.Performed At: RN [facility] [address] [id number] Ontiveros MD Ph:[id number] ID Date Data Source [id number] 12/30/2019 11:25:18 AM [facility] Value Range Interpretation Code Description Data Estella rce(s) Supporting Document(s) Rubella virus IgG Ab [Presence] in Serum or Plasma by Immunoassay [facility] ID Date Data Source [id number] 12/26/2019 01:18:51 PM [facility] Value Range Interpretation Code Description Data Estella rce(s) Supporting Document(s) Lupus anticoagulant neutralization plate let [Time] in Platelet poor plasma by Coagulation assay 12.2 sec <8.0 H [facility] ID Date Data Source [id number] 12/29/2019 09:12:49 AM [facility] Value Range Interpretation Code Description Data Estella rce(s) Supporting Document(s) Cardiolipin IgM Ab [Interpretation] in Serum 1.6 U/mL <20.0 [facility] Negative results do not rule out Antipho spholipid syndrome. Additional APL testing should be considered.FAX [id number] Cardiolipin IgG Ab [Interpretation] in Serum <20.0 [facility] Negative results do not rule out Antipho spholipid syndrome. Additional APL testing should be considered.FAX [id number] ID Date Data Source [id number] 12/29/2019 09:12:49 AM [facility] Value Range Interpretation Code Description Data Estella rce(s) Supporting Document(s) Beta 2 glycoprotein 1 IgG Ab [Units/volume] in Serum <20.0 [facility] Negative results do not rule out Antipho spholipid syndrome. Other APL testing should be considered.FAX [id number] ID Date Data Source [id number] 12/29/2019 09:12:49 AM [facility] Value Range Interpretation Code Description Data Estella rce(s) Supporting Document(s) Beta 2 glycoprotein 1 IgM Ab [Units/volume] in Serum <20.0 [facility] Negative results do not rule out Antipho spholipid syndrome. Other APL testing should be considered.FAX [id number] ID Date Data Source [id number] 12/25/2019 07:47:00 PM [facility] Value Range Interpretation Code Description Data Estella rce(s) Supporting Document(s) Hepatitis C virus Ab [Presence] in Serum or Plasma by Immuno assay [facility] Reactive [facility] No serological evidence of active infect ion. If recent exposure is suspected, test for HCV RNA. ID Date Data Source [id number] 12/25/2019 07:47:00 PM [facility] Value Range Interpretation Code Description Data Estella rce(s) Supporting Document(s) Hepatitis B virus surface Ag [Presence] in Serum or Plasma b y Immunoassay Non Reactive [facility] No active or previous infection. Suscept ible to infection. ID Date Data Source [id number] 12/25/2019 06:06:45 PM [facility] Value Range Interpretation Code Description Data Estella rce(s) Supporting Document(s) HIV 1+2 Ab+HIV1 p24 Ag [Presence] in Serum or Plasma by Immu noassay Non Reactive [facility] Negative for HIV-1 p24 antigenand HIV-1/ HIV-2 antibodies. Nolaboratory evidence of HIVinfection. ID Date Data Source [id number] 12/25/2019 05:59:36 PM [facility] Value Range Interpretation Code Description Data Estella rce(s) Supporting Document(s) ABO and Rh group [Type] in Blood [facility] Blood group antibody screen [Presence] in Serum or Plasma [facility] Blood bank comment [facility] ID Date Data Source [id number] 12/17/2019 10:15:27 AM [facility] Value Range Interpretation Code Description Data Estella rce(s) Supporting Document(s) Progress Note [facility] UTVTXf8kQmYYZbFr25/EEHqsHRWkg9GtKOpjFZy3XDpvBGWlY3VcXVA1cG1bCTL3JKyMIcAeAbOhDxE4 lbm [file] RKv6JJBaZCAiYLI6GnL+DE5bTDd+Si4Nb1PfsmA7bsQuURdgISR7ML5DVBYKR9DXJi== ID Date Data Source [id number] 12/17/2019 10:15:22 AM EST [facility] Name Value Range Interpretation Code Description Data Estella rce(s) Supporting Document(s) Progress Note [facility] KDKCXn7qHuJYViOe43/HICaqYKPmh1AmLMkmSNr8NLulLVNpO6PhKFG0xF3qHUQ6DZgTJvFsIxQrTnJ2 lbm [file] ICAgICAgICAgICAgICAgICAgICAgICAgICAgICAgICAgICAgICAgICAgICAgICAgICAgICAgICAgICAg ICAgICAgICAgICAgICAgICAgICAgICAgICANCiAgICAgICAgICAgICAgICAgICAgICAgICAgICAgICAg ICAgICAgICAgICAgICAgICAgICAgICAgICAgICAgIC AgICAgICAgICAgICAgICAgICAgICAgICAgICAgICAgICAgICANCiAgICAgICAgICAgICAgICAgICAgIC AgICAgICAgICAgICAgICAgICAgICAgICAgICAgICAgICAgICAgICAgICAgICAgICAgICAgICAgICAgIC AgICAgICAgICAgICAgICAgICANCiAgICAgICAgICAg ICAgICAgICAgICAgICAgICAgICAgICAgICAgICAgICAgICAgICAgICAgICAgICAgICAgICAgICAgICAg ICAgICAgICAgICAgICAgICAgICAgICAgICAgICANCiAgICAgICAgICAgICAgICAgICAgICAgICAgICAg ICAgICAgICAgICAgICAgICAgICAgICAgICAgICAgIC AgICAgICAgICAgICAgICAgICAgICAgICAgICAgICAgICAgICAgICANCiAgICAgICAgICAgICAgICAgIC AgICAgICAgICAgICAgICAgICAgICAgICAgICAgICAgICAgICAgICAgICAgICAgICAgICAgICAgICAgIC AgICAgICAgICAgICAgICAgICAgICANCiAgICAgICAg ICAgICAgICAgICAgICAgICAgICAgICAgICAgICAgICAgICAgICAgICAgICAgICAgICAgICAgICAgICAg ICAgICAgICAgICAgICAgICAgICAgICAgICAgICAgICANCiAgICAgICAgICAgICAgICAgICAgICAgICAg ICAgICAgICAgICAgICAgICAgICAgICAgICAgICAgIC AgICAgICAgICAgICAgICAgICAgICAgICAgICAgICAgICAgICAgICAgICANCiAgICAgICAgICAgICAgIC AgICAgICAgICAgICAgICAgICAgICAgICAgICAgICAgICAgICAgICAgICAgICAgICAgICAgICAgICAgIC AgICAgICAgICAgICAgICAgICAgICAgICANCiAgICAg ICAgICAgICAgICAgICAgICAgICAgICAgICAgICAgICAgICAgICAgICAgICAgICAgICAgICAgICAgICAg ICAgICAgICAgICAgICAgICAgICAgICAgICAgICAgICAgICANCjw/cHHpZ2eceENcjzS5T2jbKk3ZPg9H FJ1gu4KzAPHdDUemclFcLvxVVfPiHZTyBkcEYjx7NC jwPV7TrLBmX4UoT5UbMGytKZ9QMRMoLJFmcSYhKHXuQEQqYrR1UXEsZXyqFH2HhDJtJGhtQSKbCYVeHm OsRHJnMXBeSVCnNOObCMZQVGDlCHLeNtSeXQImVZQbNK5EDCFeN157gxVaVk0GOn9SZqArCT4nrz1ASl GeTGLrUmgKZus7IVchJB8GpAYuiOSoOqPqHWIBPqKp M8lxi8UnPhTkLSBIXXnvJP2Mf3UxxJHnAJb+Kt2CGM5oi1UsOKgvQsHsXY6ajt7EIAuHUzFqS2ZhoSuc SAPvk2gmQNSwZK5htMPgTWG0TCBebMgaxTIQNHsdb7lvXCssGELaWRKpER7lXW1iEZJcJZKzMsOwTCMQ SD0PQWFmNFYswZEfWTQuCPINTL4XCWgaUZL4KTEzgl SjgARcLWkjVQ0XGGRxniZcRgNhMKMJZSj+Ws5SMN8fg3PaAIzyBiRjEG7sts1TWDqGZtBtG0X8dBXyO1 J5ZOzpBn8MIIWuHHTlNlXtTKELGHnlLE0BNW9bbkF8NV2GiUCdGWKgLLTgxDHnXQd3W00kwSIyJCvcQJ 0KICA+Penny+Vj7BZYLpCQNqJLFzIhOsDCRIXbFnM5Xu N2QPl6MtH1YbVZ02xKbljsTzKSjsDR8COC6oFKQqOEPZOF4ZxBNocX9ycdNmZMBePASFEnBgQ81eeFZn OPQcQDX5YKBiHh3VZQVdV5TncyIcvVmlrfQhHKYiWVYLCS5HTVbooiXguNOgcFbaVF98tAgyND1EAa5Z OwWkRV8lmj0UcFYbUt8EIBRaYD2KLSAoTIUwQETzSP M4HBEgZfFtDSdnZDEhHLYxSDW0FXSvVYPsZA5WHoGnLOJhLJf3JDaaYOAwJPRoag3FYSQdNMF4UBB6II SiHYLmQSDvPXbhWWGxPNPdUPV2NDOtKJMxWG2BUvCwRIZwQGZ8GKXhRBLaTGNqyl4UIUJzZAOjZNYnTy GrSAJsCECrWFgmBUDaLNZ8DZg7RATuFQZtHU4FJyBb XIPmSGbvWGDaQILcENVcfa0EGZPvPWUdGxSeZnCtWERwVGEqUYboWPHrGNQeMrM7PIBqIFIaNV1AHhEs GREyGTM3ZYXkIKTdLFKima4XRDFdKQCbSBokIMFsDVDkTBAaQQupOMBwMHU3MjGoJLGsGDDeHH8HUbWj KGRuMZo9UbQfGPCeTDJnle2KUKDsWYEzKHMsImAfYZ WaKRLeCYblFYVnYCRtJLMnNNDvTBRnWX7DZfVuTEGxNyU2RFJeDCRzQJDtvl9OFZEzAPLzOIk9LIHqFV BcDZGxHKgqBLVyNVEeSJCcMKHlWGWoCY1ZUlLpKRJePgMjRwPjYXLmJJGbem7CGSJoAQYtKgZaIHYoTS IaYVJiAHowRUKxVVHcXTMqHSPuLKObWX7ZWaHbLMBt QHV6INNmJAXxOLTqbq3HRKEsFQQ8BxY5MQCwYVQrLUBqAJquDPTfSQX2PnJ6YVCzACBuZQ8WLhMxTNQx VMmfJYCoRMLrZNEptf9ABUSeARM7UbY7IbLzSXFyWYTxUCczLSGjCHJ1PIwiOWFjOUNoMT7KSrRsZQTd IUfgKauuOJSyMPIwng6XRZWcEBA3XRM4QmCeIVSmXW IlZPclHIOaKWX2LFg7QGWcSJXqSH5WBpMiIQMdKEj3RSWgHEVkADUncj6NGDCdSBZ0VHt8XAWlYYDfPV PwWNnhJKVsGSRiNgV5GTGdQTYrDI1MVqFyAZNlBuA1NuwiQYAmDJIjod1DLERrTPP6FAe9MBVfMZXzYG RkZNrdZQVgQCTtBCGwRHOvSPKcNI2IJmFnQAjhAVYP Rfk7WObiS7k6LIVfZH0AY9Nzh6NvRbxpLSZGLQcmSI8vwwQpHXWzEe2KA1jSXgldYfH9AbvfHUB2Nos5 JwKfMyVbKRc0P7U1JcUjCCGmNb6wTCW6KAG0INKiKJg2VEdlQKTpTyBuVVZsFGP2QnYtQSWzIxSwFH3L Ue0UXtV9MUC2dVUsZe4YYoVoXTBKGoGqTV7AOFg= ID Date Data Source [id number] 12/12/2019 10:47:59 AM EST [facility] Name Value Range Interpretation Code Description Data Estella rce(s) Supporting Document(s) Progress Note [facility] TISBRh2pJcKXBkYk47/YVLzqTSQou5CbZWnaUHi6WHfaFVCfL2LgRNH9tJ3uDNP9DKnATnLzYjHmKYUf lbm [file] FtUbm5TrN8YlTiFN1NDy3XOeI7ZZM1yZGlCz7GUyV0WWXDObHwYG5SUYr= ID Date Data Source [id number] 12/11/2019 08:30:48 PM [facility] Name Value Range Interpretation Code Description Data Estella rce(s) Supporting Document(s) Protein [Mass/volume] in Urine 16 mg/dl [facility] Creatinine [Mass/volume] in Urine 160.0 mg/dL [facility] Protein/Creatinine [Mass Ratio] in Urine 0.10 mg/mg{creat} [facility] ID Date Data Source [id number] 12/12/2019 01:19:28 PM [facility] Service Cmnt XXX-Imp : Microorganism XXX Cult : Egg Grader Mediated Amplification(TMA) is NEGATIVE for Neisseria gonorrhoeae AND NEGATIVE for Chlamydia trachomatis. Name Value Range Interpretation Code Description Data Esetlla rce(s) Supporting Document(s) ID Date Data Source [id number] 12/12/2019 08:39:14 AM [facility] Service Cmnt XXX-Imp : Microorganism XXX Cult : DNA probe assay was NEGATIVE for Treasure species, Gardnerella vaginalis, and Trichomonas vaginalis. Name Value Range Interpretation Code Description Data Estella rce(s) Supporting Document(s) ID Date Data Source [id number] 12/11/2019 02:14:36 PM [facility] Name Value Range Interpretation Code Description Data Estella rce(s) Supporting Document(s) Color of Urine [facility] Clarity of Urine [facility] Glucose [Mass/volume] in Urine by Test strip Negative [facility] Bilirubin.total [Presence] in Urine by Test strip Negative [facility] Ketones [Mass/volume] in Urine by Test strip Negative [facility] Specific gravity of Urine by Test strip 1.015 1.005-1.025 [facility] Hemoglobin [Presence] in Urine by Test strip Negative [facility] pH of Urine by Test strip 5.0-8.0 [facility] Protein [Mass/volume] in Urine by Test strip Negative A [facility] Urobilinogen [Units/volume] in Urine by Test strip 0.2 {Ehrlich_U}/ dL 0.2-1.0 [facility] Nitrite [Presence] in Urine by Test strip Negative [facility] Leukocyte esterase [Presence] in Urine by Test strip Negat socrates [facility] ID Date Data Source [id number] 12/11/2019 11:49:16 AM [facility] OB TRANSVAGINAL [id number] RESULTInte rpreted by:Anamaria Cotter MD PhDHISTORY: Dating and viability.TECHNIQUE: A first semester obstetrical ultrasound was performed transvaginally.FINDINGS: An intrauterine gestational sac harbors a normal yolk sac and a viable pole with crown-rump length averaging 35.2 mm which indicates a 10 week 3 day gestational age. cardiac activity is observed with a heart rate of 179 bpm. A normal decidual reaction is apparent.The right ovary measures 3.3 x 2.8 x 3.1 cm and harbors a 1.9 x 1.4 x 2.0 cm corpus luteal cyst. The left ovary measures 2.7 x 1.5 x 2.0 cm.IMPRESSION: Single live intrauterine gestation with best estimated age 10 weeks 3 days based on crown-rump length. RAQUEL 07/05/2020.This document has been electronically signed by Anamaria Cotter MD PhD on 12/11/2019 11:47 AM Name Value Range Interpretation Code Description Data Estella rce(s) Supporting Document(s) ID Date Data Source [id number] 12/02/2019 02:27:00 AM [facility] PT WILL RETURN WITH SPECIMEN Name Value Range Interpretation Code Description Data Estella rce(s) Supporting Document(s) UMAL[facility] Urine Creatinine result Normal (applies t o non-numeric results) [facility] Interpret with care as there is no estab lished reference range associated with this assay's methodology that pertains to this particular sex and/or age. [facility]AL[facility] Microalbumin,Ur result <1.7 Normal (applies to non-numeric results) [facility] UMALB Alb/Cre Ratio,Ur result Normal (applies t o non-numeric results) [facility] Test Performed By: [facility] [address] [place] [address] Director: Benito Skaggs MD Reference Ranges for Microalbumin,spot: Normal <30 ug/mg creatinine Microalbuminuria 30-300 ug/mg creatinine Clinical Albuminuria >300 ug/mg creatinine ID Date Data Source [id number] 12/01/2019 10:59:00 PM EST [facility] PT WILL RETURN WITH SPECIMEN Name Value Range Interpretation Code Description Data Estella rce(s) Supporting Document(s) Creatinine,Urine Normal (applies to non-numeric results) [facility] Interpret with care as there is no estab lished reference range associated with this assay's methodology that pertains to this particular sex and/or age. Microalbumin,Urine <1.7 Normal (applies to non-numer ic results) [facility] Albumin/Creatinine Ratio,Urine Normal (applies to non-numeric results) [facility] Test Performed By: [facility] [address] [place] [address] Director: Benito Skaggs MD Reference Ranges for Microalbumin,spot: Normal <30 ug/mg creatinine Microalbuminuria 30-300 ug/mg creatinine Clinical Albuminuria >300 ug/mg creatinine ID Date Data Source [id number] 12/01/2019 07:18:00 PM [facility] Value Range Interpretation Code Description Data Estella rce(s) Supporting Document(s) Parathyroid Hormone Intact res 18.4-80.1 Way [facility] Test Performed By: [facility] [address] [place] [address] Director: Benito Skaggs MD ID Date Data Source [id number] 12/01/2019 07:14:00 PM [facility] Value Range Interpretation Code Description Data Estella rce(s) Supporting Document(s) Parathyroid Hormone PTH Intact 18.4-80.1 Above high tigist l [facility] Test Performed By: [facility] [address] [place] [address] Director: Benito Skaggs MD ID Date Data Source [id number] 12/01/2019 03:14:00 PM [facility] Value Range Interpretation Code Description Data Estella rce(s) Supporting Document(s) Vitamin D, Total 30.0-100.0 Normal (applies to non-numeric results) [facility] ID Date Data Source [id number] 11/15/2019 11:50:00 AM [facility] Value Range Interpretation Code Description Data Estella rce(s) Supporting Document(s) Beta HCG,Quantitative 7420 mIU/mL Normal (applies to non-n umeric results) [facility] Non-preganant:0-5 mIU/mL 0. 2- Week: 5-50 mIU/mL 1-2 Weeks: 50-500 mIU/mL 2-3 Weeks: 100-5,000 mIU/mL 3-4 Weeks: 500-10,000 mIU/mL 4-5 Weeks: 1,000-50,000 mIU/mL 5-6 Weeks: 10,000-100,000 mIU/mL 6-8 Weeks: 15,000-200,000 mIU/mL 2-3 Months: 10,000-100,000 mIU/mL ID Date Data Source [id number] 10/29/2019 09:22:00 PM [facility] Name Value Range Interpretation Code Description Data Estella rce(s) Supporting Document(s) CRP,Wide Range result <3.00 [facility] Test Performed By: [facility] [address] [place] [address] Director: Benito Skaggs MD ID Date Data Source [id number] 10/29/2019 07:18:00 PM [facility] Name Value Range Interpretation Code Description Data Estella rce(s) Supporting Document(s) C-Reactive Protein,Wide Range <3.00 Above high normal [facility] Test Performed By: [facility] [address] [place] [address] Director: Benito Skaggs MD ID Date Data Source [id number] 10/29/2019 02:02:00 PM [facility] Name Value Range Interpretation Code Description Data Estella rce(s) Supporting Document(s) White Blood Count 3.5-10.5 Above high normal [facility] Red Blood Count 3.90-5.00 Normal (applies to non-numeric results) [facility] Hemoglobin 12.0-15.5 Below low normal [facility] ospital Hematocrit 34.9-44.5 Normal (applies to non-numeric resul ts) [facility] Mean Corpuscular Volume 81.2-95.1 Below low normal [facility] Mean Corpuscular Hgb 25.6-32.2 Below low normal [facility] Mean Corpuscular Hgb Conc 32.0-36.0 Normal (applies to no n-numeric results) [facility] Red Cell Distribution Width 11.9-15.5 Normal (appli es to non-numeric results) [facility] Platelet Count 335 x10 3/uL 150-450 Normal (applies to non-numeric results) [facility] Mean Platelet Volume 9.4-12.4 Normal (applies to non-num carolann results) [facility] Neutrophils% (Auto) 31.0-71.0 Normal (applies to non-nume margie results) [facility] Lymphocytes% (Auto) 20.0-55.0 Normal (applies to non-nume margie results) [facility] Monocytes% (Auto) 4.0-12.0 Normal (applies to non-numeri c results) [facility] Eosinophils% (Auto) 1.0-8.0 Normal (applies to non-nume margie results) [facility] Basophils% (Auto) 0.0-2.0 Normal (applies to non-numeri c results) [facility] Immature Granulocytes% (Auto) 0.0-2.0 Normal (cecily lies to non-numeric results) [facility] Neutrophils# (Auto) 1.50-6.20 Above high normal [facility] Lymphocytes# (Auto) 1.20-4.00 Normal (applies to non-nume margie results) [facility] Monocytes# (Auto) 0.00-0.90 Normal (applies to non-numeri c results) [facility] Eosinophils# (Auto) 0.00-0.50 Normal (applies to non-nume margie results) [facility] Basophils# (Auto) 0.00-0.20 Normal (applies to non-numeri c results) [facility] Immature Granulocytes# (Auto) 0.00-7.00 No rmal (applies to non-numeric results) [facility] ID Date Data Source [id number] 10/29/2019 02:02:00 PM [facility] Name Value Range Interpretation Code Description Data Estella rce(s) Supporting Document(s) Erythrocyte Sedimentation rate 42 mm/hr 0-20 Above high tigist l [facility] ID Date Data Source [id number] 10/01/2019 06:16:00 PM [facility] Name Value Range Interpretation Code Description Data Estella rce(s) Supporting Document(s) C-Reactive Protein,Wide Range <3.00 Above high normal [facility] Test Performed By: [facility] [address] [place] [address] Director: Benito Skaggs MD ID Date Data Source [id number] 10/01/2019 06:29:00 PM [facility] Name Value Range Interpretation Code Description Data Estella rce(s) Supporting Document(s) CRP,Wide Range result <3.00 [facility] Test Performed By: [facility] [address] [place] [address] Director: Benito Skaggs MD ID Date Data Source [id number] 10/01/2019 01:16:00 PM [facility] Name Value Range Interpretation Code Description Data Estella rce(s) Supporting Document(s) White Blood Count 3.5-10.5 Above high normal [facility] Red Blood Count 3.90-5.00 Normal (applies to non-numeric results) [facility] Hemoglobin 12.0-15.5 Below low normal [facility]ital Hematocrit 34.9-44.5 Normal (applies to non-numeric resul ts) [facility] Mean Corpuscular Volume 81.2-95.1 Below low normal [facility] Mean Corpuscular Hgb 25.6-32.2 Below low normal [facility] Mean Corpuscular Hgb Conc 32.0-36.0 Below low normal [facility] Red Cell Distribution Width 11.9-15.5 Normal (appli es to non-numeric results) [facility] Platelet Count 332 x10 3/uL 150-450 Normal (applies to non-numeric results) [facility] Mean Platelet Volume 9.4-12.4 Normal (applies to non-num carolann results) [facility] Neutrophils% (Auto) 31.0-71.0 Normal (applies to non-nume margie results) [facility] Lymphocytes% (Auto) 20.0-55.0 Normal (applies to non-nume margie results) [facility] Monocytes% (Auto) 4.0-12.0 Normal (applies to non-numeri c results) [facility] Eosinophils% (Auto) 1.0-8.0 Normal (applies to non-nume margie results) [facility] Basophils% (Auto) 0.0-2.0 Normal (applies to non-numeri c results) [facility] Immature Granulocytes% (Auto) 0.0-2.0 Normal (cecily lies to non-numeric results) [facility] Neutrophils# (Auto) 1.50-6.20 Above high normal [facility] Lymphocytes# (Auto) 1.20-4.00 Normal (applies to non-nume margie results) [facility] Monocytes# (Auto) 0.00-0.90 Normal (applies to non-numeri c results) [facility] Eosinophils# (Auto) 0.00-0.50 Normal (applies to non-nume margie results) [facility] Basophils# (Auto) 0.00-0.20 Normal (applies to non-numeri c results) [facility] Immature Granulocytes# (Auto) 0.00-7.00 No rmal (applies to non-numeric results) [facility] ID Date Data Source [id number] 10/01/2019 01:16:00 PM EST [facility] Name Value Range Interpretation Code Description Data Estella rce(s) Supporting Document(s) Erythrocyte Sedimentation rate 52 mm/hr 0-20 Above high tigist l [facility] Procedure Social History Code Duration Value Status Description Data Source(s ) Smoking 11/22/2020 12:00:00 AM EST Former Smoker completed Former Smoker eCW1 ([facility]) Smoking 11/22/2020 12:00:00 AM EST Former Smoker completed Former Smoker eCW1 ([facility]) Smoking 11/22/2020 12:00:00 AM EST Former Smoker completed Former Smoker eCW1 ([facility]) Smoking 11/19/2020 12:00:00 AM EST Former Smoker completed Former Smoker eCW1 ([facility]) Smoking 11/19/2020 12:00:00 AM EST Former Smoker completed Former Smoker eCW1 ([facility]) Alcohol intake 10/04/2020 12:00:00 AM EST Current non-d concepcion of alcohol (finding) completed Current non-drinker of alcohol (finding) [facility] Smoking 09/15/2020 12:00:00 AM EST Former Smoker completed Former Smoker eCW1 ([facility]) Smoking 09/15/2020 12:00:00 AM EST Former Smoker completed Former Smoker eCW1 ([facility]) Smoking 09/15/2020 12:00:00 AM EST Former Smoker completed Former Smoker eCW1 ([facility]) Smoking 09/15/2020 12:00:00 AM EST Former Smoker completed Former Smoker eCW1 ([facility]) Alcohol intake 09/13/2020 12:00:00 AM EST Current non-d concepcion of alcohol (finding) completed Current non-drinker of alcohol (finding) [facility] Alcohol intake 09/07/2020 12:00:00 AM EDT Current non-d concepcion of alcohol (finding) completed Current non-drinker of alcohol (finding) [facility] Smoking 09/06/2020 12:00:00 AM EDT Non-smoker, Non-drink er, Non-drug User completed Non-smoker, Non-drinker, Non-drug User [facility] ([facility] Alcohol intake 08/31/2020 12:00:00 AM EDT Current non-d concepcion of alcohol (finding) completed Current non-drinker of alcohol (finding) [facility] Tobacco use and exposure 08/31/2020 12:00:00 AM EDT Never used co mpleted Never used [facility] Smoking 08/31/2020 12:00:00 AM EDT Former smoker completed Former smoker [facility] Alcohol intake 08/17/2020 12:00:00 AM EDT Current non-d concepcion of alcohol (finding) completed Current non-drinker of alcohol (finding) [facility] Smoking 06/17/2020 11:56:00 AM EDT Former Smoker completed Former Smoker [facility] Smoking 06/12/2020 05:55:00 PM EDT Denies Ever Smoked complete d Denies Ever Smoked [facility] Smoking 05/28/2020 03:14:00 PM EDT Former Smoker completed Former Smoker [facility] Smoking 05/25/2020 08:45:00 PM EDT Denies Ever Smoked complete d Denies Ever Smoked [facility] Smoking 05/14/2020 08:05:00 PM EDT Denies Ever Smoked complete d Denies Ever Smoked [facility] Smoking 04/02/2020 03:54:00 PM EDT Denies Ever Smoked complete d Denies Ever Smoked [facility] Alcohol intake 12/31/2019 12:00:00 AM EST Current non-d concepcion of alcohol (finding) completed Current non-drinker of alcohol (finding) [facility] Smoking 12/31/2019 12:00:00 AM EST Former smoker completed Former smoker [facility] Alcohol intake 12/25/2019 12:00:00 AM EST Current non-d concepcion of alcohol (finding) completed Current non-drinker of alcohol (finding) [facility] Smoking 12/25/2019 12:00:00 AM EST Former smoker completed Former smoker [facility] Alcohol intake 12/11/2019 12:00:00 AM EST Current non-d concepcion of alcohol (finding) completed Current non-drinker of alcohol (finding) [facility] Smoking 12/11/2019 12:00:00 AM EST Former smoker completed Former smoker [facility] 10/13/2019 12:00:00 AM EST completed [facility] Vital Signs ID Date Data Source UNK Name Value Range Interpretation Code Description Data Source(s) Diastolic blood pressure mm[Hg] eCW1 ([facility]) Systolic blood pressure 136 mm[Hg] 136 mm[Hg] e CW1 ([facility]) Body temperature 98.4 [degF] 98.4 [degF] eCW1 ( [facility]) Respiratory rate 18 /min 18 /min eCW1 (On license of [facility]) Heart rate 89 /min 89 /min W1 ([facility]) Body mass index (BMI) [Ratio] 46.44 kg/m2 46.44 kg/m2 W1 ([facility]) Body height 64 [in_i] 64 [in_i] eCW1 ([facility]) Body weight 270.6 [lb_av] 270.6 [lb_av] eCW1 ([facility]) Diastolic blood pressure 81 mm[Hg] 81 mm[Hg] JOHN ([facility]) Body weight 4435.2 [oz_av] 4435.2 [oz_av] ATHEN A ([facility]) Systolic blood pressure 119 mm[Hg] 119 mm[Hg] A THENA ([facility]) Body mass index (BMI) [Ratio] 47.6 kg/m2 47.6 k g/m2 JOHN ([facility]) Body height 64 [in_i] 64 [in_i] JOHN ([facility]) Body weight 4240 [oz_av] 4240 [oz_av] JOHN ([facility]) Systolic blood pressure 115 mm[Hg] 115 mm[Hg] A THENA ([facility]) Body mass index (BMI) [Ratio] 45.5 kg/m2 45.5 k g/m2 JOHN ([facility]) Body height 64 [in_i] 64 [in_i] JOHN ([facility]) Diastolic blood pressure 84 mm[Hg] 84 mm[Hg] JOHN ([facility]) Body weight 4240 [oz_av] 4240 [oz_av] JOHN ([facility]) Systolic blood pressure 115 mm[Hg] 115 mm[Hg] A THENA ([facility]) Body mass index (BMI) [Ratio] 45.5 kg/m2 45.5 k g/m2 JOHN ([facility]) Body height 64 [in_i] 64 [in_i] JOHN ([facility]) Diastolic blood pressure 84 mm[Hg] 84 mm[Hg] JOHN ([facility]) Body weight 4240 [oz_av] 4240 [oz_av] JOHN ([facility]) Systolic blood pressure 115 mm[Hg] 115 mm[Hg] A THENA ([facility]) Body mass index (BMI) [Ratio] 45.5 kg/m2 45.5 k g/m2 JOHN ([facility]) Body height 64 [in_i] 64 [in_i] JOHN ([facility]) Diastolic blood pressure 84 mm[Hg] 84 mm[Hg] JOHN ([facility]) Diastolic blood pressure 73 mm[Hg] 73 mm[Hg] eCW1 ([facility]) Systolic blood pressure 123 mm[Hg] 123 mm[Hg] e CW1 ([facility]) Body temperature 97.5 [degF] 97.5 [degF] eCW1 ( [facility]) Respiratory rate 18 /min 18 /min eCW1 (On license of [facility]) Heart rate 98 /min 98 /min eCW1 ([facility]) Body mass index (BMI) [Ratio] 47.58 kg/m2 47.58 kg/m2 eCW1 ([facility]) Body height 64 [in_i] 64 [in_i] eCW1 ([facility]) Body weight 277.2 [lb_av] 277.2 [lb_av] eCW1 ([facility]) Systolic blood pressure 143 mm[Hg] 143 mm[Hg] A THENA ([facility]) Systolic blood pressure 146 mm[Hg] 146 mm[Hg] A [facility] ([facility]) Body height 64 [in_i] 64 [in_i] JOHN ([facility]) Diastolic blood pressure 99 mm[Hg] 99 mm[Hg] JOHN ([facility]) Diastolic blood pressure 97 mm[Hg] 97 mm[Hg] JOHN ([facility]) Systolic blood pressure 143 mm[Hg] 143 mm[Hg] [facility] Systolic blood pressure 146 mm[Hg] 146 mm[Hg] A [facility] ([facility]) Body height 64 [in_i] 64 [in_i] JOHN ([facility]) Diastolic blood pressure 99 mm[Hg] 99 mm[Hg] JOHN ([facility]) Diastolic blood pressure 97 mm[Hg] 97 mm[Hg] JOHN ([facility]) Systolic blood pressure 143 mm[Hg] 143 mm[Hg] A THENA ([facility]) Systolic blood pressure 146 mm[Hg] 146 mm[Hg] A [facility] ([facility]) Body height 64 [in_i] 64 [in_i] JOHN ([facility]) Diastolic blood pressure 99 mm[Hg] 99 mm[Hg] JOHN ([facility]) Diastolic blood pressure 97 mm[Hg] 97 mm[Hg] JOHN ([facility]) Systolic blood pressure 143 mm[Hg] 143 mm[Hg] A THENA ([facility]) Systolic blood pressure 146 mm[Hg] 146 mm[Hg] A THENA ([facility]) Body height 64 [in_i] 64 [in_i] JOHN ([facility]) Diastolic blood pressure 99 mm[Hg] 99 mm[Hg] JOHN ([facility]) Diastolic blood pressure 97 mm[Hg] 97 mm[Hg] JOHN ([facility]) Diastolic blood pressure 98 mm[Hg] 98 mm[Hg] MEDENT ([facility]) Systolic blood pressure 152 mm[Hg] 152 mm[Hg] M EDENT ([facility]) Body mass index (BMI) [Ratio] 43.6 kg/m2 43.6 k g/m2 MEDENT ([facility]) Body weight 270.00 [lb_av] 270.00 [lb_av] MEDEN T ([facility]) Body height 66 [in_i] 66 [in_i] MEDENT ([facility]) 5'6" Body temperature 97.5 [degF] 97.5 [degF] MEDENT ([facility]) Body surface area Derived from formula 3.33 m2 3.33 m2 MEDENT ([facility]) Body mass index (BMI) [Ratio] 0.7 kg/m2 0.7 kg /m2 MEDENT ([facility]) Body weight 65.00 [lb_av] 65.00 [lb_av] MEDENT ([facility]) Body height 258 [in_i] 258 [in_i] MEDENT ([facility]) 21'6" Diastolic blood pressure 90 mm[Hg] 90 mm[Hg] MEDENT ([facility]) Systolic blood pressure 146 mm[Hg] 146 mm[Hg] M EDENT ([facility]) Body weight 4336 [oz_av] 4336 [oz_av] JOHN ([facility]) Systolic blood pressure 126 mm[Hg] 126 mm[Hg] A THENA ([facility]) Body height 64 [in_i] 64 [in_i] JOHN ([facility]) Diastolic blood pressure 87 mm[Hg] 87 mm[Hg] JOHN ([facility]) Body weight 4336 [oz_av] 4336 [oz_av] JOHN ([facility]) Systolic blood pressure 126 mm[Hg] 126 mm[Hg] A [facility] ([facility]) Body height 64 [in_i] 64 [in_i] JOHN ([facility]) Diastolic blood pressure 87 mm[Hg] 87 mm[Hg] JOHN ([facility]) Body weight 4336 [oz_av] 4336 [oz_av] JOHN ([facility]) Systolic blood pressure 126 mm[Hg] 126 mm[Hg] [facility] Body height 64 [in_i] 64 [in_i] JOHN ([facility]) Diastolic blood pressure 87 mm[Hg] 87 mm[Hg] JOHN ([facility]) Body weight 4336 [oz_av] 4336 [oz_av] JOHN ([facility]) Systolic blood pressure 126 mm[Hg] 126 mm[Hg] A [facility] ([facility]) Body height 64 [in_i] 64 [in_i] JOHN ([facility]) Diastolic blood pressure 87 mm[Hg] 87 mm[Hg] JOHN ([facility]) Body mass index (BMI) [Ratio] 46.3 kg/m2 No rmal (applies to non-numeric results) 46.3 kg/m2 [facility] Diastolic blood pressure 90 mm[Hg] Normal (applies to non-numeric results) 90 mm[Hg] [facility] Systolic blood pressure 158 mm[Hg] Normal (applies t o non-numeric results) 158 mm[Hg] [facility] Body weight Measured 270 [lb_av] Normal (applies to n on-numeric results) 270 [lb_av] [facility] Body temperature 37.0 zari Normal (applies to non-numeric results) 37.[address] [facility] Respiratory rate 16 min Normal (applies to non-numeric results) [address] [facility] Deprecated Oxygen saturation in Capillary blood by Oximetry 97 % Normal (applies to non-numeric results) 97 % [facility] Body height 162.1536 cm Normal (applies to non-numeric res ults) 162.[address] [facility] Heart rate 104 min Normal (applies to non-numeric resul ts) [address] [facility] Respiratory rate 16 min Normal (applies to non-numeric results) [address] [facility] Deprecated Oxygen saturation in Capillary blood by Oximetry 99 % Normal (applies to non-numeric results) 99 % [facility] Heart rate 91 min Normal (applies to non-numeric resul ts) [address] [facility] Diastolic blood pressure 92 mm[Hg] Normal (applies to non-numeric results) 92 mm[Hg] [facility] Systolic blood pressure 138 mm[Hg] Normal (applies t o non-numeric results) 138 mm[Hg] [facility] Body weight Measured 222 [lb_av] Normal (applies to n on-numeric results) 222 [lb_av] [facility] Body temperature 37.0 zari Normal (applies to non-numeric results) 37.[address] [facility] Body height 162.1536 cm Normal (applies to non-numeric res ults) 162.[address] [facility] Body mass index (BMI) [Ratio] 38.1 kg/m2 No rmal (applies to non-numeric results) 38.1 kg/m2 [facility] Body temperature 36.7 zari Normal (applies to non-numeric results) 36.[address] [facility] Respiratory rate 20 min Normal (applies to non-numeric results) [address] [facility] Heart rate 76 min Normal (applies to non-numeric resul ts) [address] [facility] Diastolic blood pressure 81 mm[Hg] Normal (applies to non-numeric results) 81 mm[Hg] [facility] Systolic blood pressure 123 mm[Hg] Normal (applies t o non-numeric results) 123 mm[Hg] [facility] Body weight Measured 122.47 kg Normal (applies to n on-numeric results) 122.[address] [facility] Deprecated Oxygen saturation in Capillary blood by Oximetry 97 % Normal (applies to non-numeric results) 97 % [facility] Body height 162.1536 cm Normal (applies to non-numeric res ults) 162.[address] [facility] Body mass index (BMI) [Ratio] 46.34 kg/m2 No rmal (applies to non-numeric results) 46.34 kg/m2 [facility] Body mass index (BMI) [Ratio] 46.0 kg/m2 No rmal (applies to non-numeric results) 46.0 kg/m2 [facility] Diastolic blood pressure 90 mm[Hg] Normal (applies to non-numeric results) 90 mm[Hg] [facility] Systolic blood pressure 152 mm[Hg] Normal (applies t o non-numeric results) 152 mm[Hg] [facility] Body temperature 36.8 zari Normal (applies to non-numeric results) 36.8 zari [facility] Heart rate 85 min Normal (applies to non-numeric resul ts) [address] [facility] Body weight Measured 268 [lb_av] Normal (applies to n on-numeric results) 268 [lb_av] [facility] Respiratory rate 18 min Normal (applies to non-numeric results) [address] [facility] Deprecated Oxygen saturation in Capillary blood by Oximetry 98 % Normal (applies to non-numeric results) 98 % [facility] Body height 162.1536 cm Normal (applies to non-numeric res ults) 162.[address] [facility] Body temperature 36.9 zari Normal (applies to non-numeric results) 36.[address] [facility] Respiratory rate 18 min Normal (applies to non-numeric results) [address] [facility] Heart rate 80 min Normal (applies to non-numeric resul ts) 80 min [facility] Diastolic blood pressure 68 mm[Hg] Normal (applies to non-numeric results) 68 mm[Hg] [facility] Systolic blood pressure 130 mm[Hg] Normal (applies t o non-numeric results) 130 mm[Hg] [facility] Deprecated Oxygen saturation in Capillary blood by Oximetry 96 % Normal (applies to non-numeric results) 96 % [facility] Body weight Measured 129.727 kg Normal (applies to n on-numeric results) 129.[address] [facility] Body height 162.1536 cm Normal (applies to non-numeric res ults) 162.[address] [facility] Body mass index (BMI) [Ratio] 49.09 kg/m2 No rmal (applies to non-numeric results) 49.09 kg/m2 [facility] Body temperature 36.6 zari Normal (applies to non-numeric results) 36.[address] [facility] Respiratory rate 18 min Normal (applies to non-numeric results) [address] [facility] Body weight Measured 122.47 kg Normal (applies to n on-numeric results) 122.[address] [facility] Body height 162.1536 cm Normal (applies to non-numeric res ults) 162.[address] [facility] Body mass index (BMI) [Ratio] 46.34 kg/m2 No rmal (applies to non-numeric results) 46.34 kg/m2 [facility] Body temperature 37.0 zari Normal (applies to non-numeric results) 37.[address] [facility] Respiratory rate 20 min Normal (applies to non-numeric results) [address] [facility] Body weight Measured 273 [lb_av] Normal (applies to n on-numeric results) 273 [lb_av] [facility] Deprecated Oxygen saturation in Capillary blood by Oximetry 96 % Normal (applies to non-numeric results) 96 % [facility] Heart rate 110 min Normal (applies to non-numeric resul ts) [address] [facility] Inhaled oxygen concentration 21 % Normal (appl ies to non-numeric results) 21 % [facility] Body height 162.1536 cm Normal (applies to non-numeric res ults) 162.[address] [facility] Body mass index (BMI) [Ratio] 46.52 kg/m2 No rmal (applies to non-numeric results) 46.52 kg/m2 [facility] Diastolic blood pressure 66 mm[Hg] Normal (applies to non-numeric results) 66 mm[Hg] [facility] Systolic blood pressure 136 mm[Hg] Normal (applies t o non-numeric results) 136 mm[Hg] [facility] Body mass index (BMI) [Ratio] 45.7 kg/m2 45.7 k g/m2 MEDENT (Luiz Leblanc MD) Respiratory rate 16 /min 16 /min MEDENT ( Luiz Leblanc MD) Oxygen saturation in Arterial blood by Pulse oximetry 98 % 98 % MEDENT (Luiz Leblanc MD) Body temperature 97.7 [degF] 97.7 [degF] MEDENT (Luiz Leblanc MD) Heart rate 84 /min 84 /min MEDENT (Rosendo Leblanc MD) Diastolic blood pressure 82 mm[Hg] 82 mm[Hg] MEDENT (Luiz Leblanc MD) Systolic blood pressure 133 mm[Hg] 133 mm[Hg] M EDENT (Luiz Leblanc MD) Body height 64 [in_i] 64 [in_i] MEDENT (Johnathon Leblanc MD) 5'4" Body weight 266.00 [lb_av] 266.00 [lb_av] MEDEN T (Luiz Leblanc MD) ID Date Data Source [id number] 10/25/2020 07:54:58 AM EST [facility] Name Value Range Interpretation Code Description Data Source(s) PREFERRED NAME Kendra Gardner [facility] PREFERRED NAME Kendraeleni Gardner [facility] ID Date Data Source [id number] 10/04/2020 11:52:46 AM EST [facility] Name Value Range Interpretation Code Description Data Source(s) WEIGHT RECORDED 266 lb 266 lb [facility] PREFERRED NAME Kendra Gardner [facility] ID Date Data Source [id number] 09/23/2020 08:15:32 AM EST [facility] Name Value Range Interpretation Code Description Data Source(s) TRANSFER FROM [facility] ID Date Data Source [id number] 09/07/2020 11:16:42 AM EDT [facility] Name Value Range Interpretation Code Description Data Source(s) WEIGHT RECORDED 279 lb 279 lb [facility] ID Date Data Source [id number] 10/12/2020 12:09:27 PM EST [facility] Name Value Range Interpretation Code Description Data Source(s) WEIGHT RECORDED 276 lb 276 lb [facility] ID Date Data Source [id number] 11/22/2020 01:47:44 PM EST [facility] Name Value Range Interpretation Code Description Data Source(s) WEIGHT RECORDED 269.8 lb 269.8 lb [facility] PREFERRED NAME Kendraeleni Gardner [facility] ID Date Data Source [id number] 06/17/2020 04:03:40 PM EDT [facility] Name Value Range Interpretation Code Description Data Source(s) WEIGHT RECORDED 278.8 lb 278.8 lb [facility] ID Date Data Source [id number] 06/01/2020 08:01:52 AM EDT [facility] Name Value Range Interpretation Code Description Data Source(s) WEIGHT RECORDED 278 lb 278 lb [facility] ID Date Data Source [id number] 05/14/2020 01:50:51 PM EDT [facility] Name Value Range Interpretation Code Description Data Source(s) WEIGHT RECORDED 284 lb 284 lb [facility] ID Date Data Source [id number] 05/13/2020 12:11:41 PM EDT [facility] Name Value Range Interpretation Code Description Data Source(s) WEIGHT RECORDED 285.4 lb 285.4 lb [facility] ID Date Data Source [id number] 04/19/2020 11:34:20 AM EDT [facility] Name Value Range Interpretation Code Description Data Source(s) WEIGHT RECORDED 277.8 lb 277.8 lb [facility] ID Date Data Source [id number] 04/06/2020 08:36:55 AM EDT [facility] Name Value Range Interpretation Code Description Data Source(s) WEIGHT RECORDED 279 lb 279 lb [facility] ID Date Data Source [id number] 03/20/2020 08:30:37 AM EDT [facility] Name Value Range Interpretation Code Description Data Source(s) WEIGHT RECORDED 278.6 lb 278.6 lb [facility] ID Date Data Source [id number] 02/26/2020 09:49:30 AM EDT [facility] Name Value Range Interpretation Code Description Data Source(s) WEIGHT RECORDED 270 lb 270 lb [facility] ID Date Data Source [id number] 02/14/2020 03:05:37 AM EDT [facility] Name Value Range Interpretation Code Description Data Source(s) WEIGHT RECORDED 267 lb 267 lb [facility] ID Date Data Source [id number] 02/06/2020 02:27:00 PM EDT [facility] Name Value Range Interpretation Code Description Data Source(s) Weight Measurement Method 8 8 [facility] Weight 4336 4336 [facility] pital Temperature Source 7 7 [facility] Temperature 98.4 98.4 [facility] Respiratory Effort 1 1 [facility] Respiratory Rate 28 28 [facility] Pulse Assessment Method 4 4 [facility] Pulse Rate 96 96 [facility] 64 64 [facility] 114/80 114/80 [facility] Weight Measurement Method 8 8 [facility] Weight 4336 4336 [facility] pital Temperature Source 7 7 [facility] Temperature 98.4 98.4 [facility] Respiratory Effort 1 1 [facility] Respiratory Rate 28 28 [facility] Pulse Assessment Method 4 4 [facility] Pulse Rate 96 96 [facility] Height 64 64 [facility] pital Blood Pressure 114/80 114/80 [facility] Weight Measurement Method 8 8 [facility] Weight 4336 4336 [facility] pital Temperature Source 7 7 [facility] Temperature 98.4 98.4 [facility] Respiratory Effort 1 1 [facility] Respiratory Rate 32 32 [facility] Pulse Assessment Method 4 4 [facility] Pulse Rate 123 123 [facility] pital Height 64 64 [facility] pital Blood Pressure 130/94 130/94 [facility] ID Date Data Source [id number] 01/29/2020 12:06:48 PM EDT [facility] Name Value Range Interpretation Code Description Data Source(s) WEIGHT RECORDED 271 lb 271 lb [facility] ID Date Data Source [id number] 01/12/2020 02:07:00 AM EST [facility] Name Value Range Interpretation Code Description Data Source(s) Weight Measurement Method 8 8 [facility] Weight 4320 4320 [facility] pital Temperature Source 7 7 [facility] Temperature 98.2 98.2 [facility] Respiratory Effort 3 3 [facility] Respiratory Rate 20 20 [facility] Pulse Assessment Method 4 4 [facility] Pulse Rate 97 97 [facility] pital Height 64 64 [facility] pital Blood Pressure 140/88 140/88 [facility] Weight Measurement Method 8 8 [facility] Weight 4320 4320 [facility] pital Temperature Source 7 7 [facility] Temperature 97.9 97.9 [facility] Respiratory Effort 1 1 [facility] Respiratory Rate 22 22 [facility] Pulse Assessment Method 4 4 [facility] Pulse Rate 101 101 [facility] pital Height 64 64 [facility] pital Blood Pressure 147/108 147/108 [facility] ID Date Data Source [id number] 01/20/2020 04:36:19 PM EDT [facility] Name Value Range Interpretation Code Description Data Source(s) WEIGHT RECORDED 275.4 lb 275.4 lb [facility] ID Date Data Source [id number] 12/31/2019 10:46:53 AM [facility] Name Value Range Interpretation Code Description Data Source(s) WEIGHT RECORDED 268.8 lb 268.8 lb [facility] Body height Measured 64 in 64 in [facility] ID Date Data Source [id number] 12/30/2019 11:25:50 AM [facility] Name Value Range Interpretation Code Description Data Source(s) WEIGHT RECORDED 271.6 lb 271.6 lb [facility] ID Date Data Source [id number] 12/17/2019 10:15:27 AM [facility] Name Value Range Interpretation Code Description Data Source(s) WEIGHT RECORDED 272 lb 272 lb [facility] ID Date Data Source [id number] 10/01/2019 01:02:00 PM EST [facility] Name Value Range Interpretation Code Description Data Source(s) Weight Measurement Method 8 8 [facility] Weight 4160 4160 [facility] pital Temperature Source 7 7 [facility] Temperature 98.3 98.3 [facility] Respiratory Effort 1 1 [facility] Respiratory Rate 16 16 [facility] Pulse Assessment Method 4 4 [facility] Pulse Rate 100 100 [facility] pital Height 64 64 [facility] 145/100 145/100 [facility] Weight Measurement Method 8 8 [facility] Weight 4160 4160 [facility] pital Temperature Source 7 7 [facility] Temperature 98.3 98.3 [facility] Respiratory Effort 1 1 [facility] Respiratory Rate 16 16 [facility] Pulse Assessment Method 4 4 [facility] Pulse Rate 100 100 [facility] pital Height 64 64 [facility] 145/100 145/100 [facility] Patient Treatment Plan of Care Planned Activity Planned Date Details Description Data Source (s) pregabalin 75 MG Oral Capsule 08/30/2020 12:00:00 AM [facility] 24 HR Nifedipine 30 MG Extended Release Oral Tablet 08/11/20 12:00:00 AM [facility] Levetiracetam 750 MG Oral Tablet 07/10/2020 12:00:00 AM [facility] Acetaminophen 325 MG / butalbital 50 MG / Caffeine 40 MG Oral Tablet 06/14/2020 12:00:00 AM [facility] Esomeprazole 20 MG Delayed Release Oral Capsule 06/08/2020 12:00:00 AM [facility] Docusate Sodium 100 MG Oral Capsule [DOK] 06/03/2020 12:00:00 AM [facility] EPINEPHrine 0.3 MG/0.3ML Injection Solution Auto-injec tor (EPIPEN) 05/26/2020 12:00:00 AM [facility]spital Cholecalciferol 1000 UNT Oral Tablet 05/25/2020 12:00:00 AM [facility] 27-0.8 MG Oral Tablet 05/25/2020 12:00:00 AM [facility] Tuberculin-Allergy Syringes 28G X 1/2" 1 ML 05/24/2020 12:00:00 AM [facility] cetirizine hydrochloride 10 MG Oral Tablet 04/24/2020 12:00:00 AM [facility] Levetiracetam 1000 MG Oral Tablet 02/04/2020 12:00:00 AM [facility] multivitamin tablet 12/11/2019 12:00:00 AM [facility] Aspirin 81 MG Delayed Release Oral Tablet 12/11/2019 12:00:00 AM [facility] Ergocalciferol 29050 UNT Oral Capsule 12/05/2019 12:00:00 AM [facility] Albuterol Sulfate HFA 108 (90 Base) MCG/ ACT Inhalation Aerosol Solution (PROVENTIL HFA;VENTOLIN HFA) 11/27/2019 12:00:00 AM [facility] Naproxen 500 MG Oral Tablet 06/27/2019 12:00:00 AM [facility] rivaroxaban 20 MG Oral Tablet [Xarelto] JOHN ([facility]) rivaroxaban 15 MG Oral Tablet [Xarelto] JOHN ([facility]) Ergocalciferol 44542 UNT Oral Capsule JOHN ([facility]) Ascorbic Acid 500 MG Oral Tablet JOHN ([facility]) tramadol hydrochloride 50 MG Oral Tablet JOHN ([facility]) topiramate 50 MG Oral Tablet JOHN ([facility]) topiramate 25 MG Oral Tablet JOHN ([facility]) quetiapine 100 MG Oral Tablet JOHN ([facility]) Progesterone 200 MG Oral Capsule JOHN ([facility]) Prednisone 50 MG Oral Tablet JOHN ([facility]) Prednisone 20 MG Oral Tablet JOHN ([facility]) Prednisone 10 MG Oral Tablet JOHN ([facility]) Prazosin 1 MG Oral Capsule A THENA ([facility]) Acetaminophen 325 MG / Oxycodone Hydrochloride 5 MG Oral Tablet JOHN ([facility]) Oxycodone Hydrochloride 5 MG Oral Tablet JOHN ([facility]) Oxycodone Hydrochloride 10 MG Oral Tablet JOHN ([facility]) Ondansetron 8 MG Disintegrating Oral Tablet JOHN ([facility]) Nexium 24HR 20 mg tablet,delayed release JOHN ([facility]) Metronidazole 500 MG Oral Tablet JOHN ([facility]) Metoclopramide 10 MG Oral Tablet JOHN ([facility]) Metformin hydrochloride 500 MG Oral Tablet JOHN ([facility]) Magnesium Oxide 400 MG Oral Tablet JOHN ([facility]) Lidocaine 25 MG/ML / Prilocaine 25 MG/ML Topical Cream JOHN ([facility]) Lidocaine 40 MG/ML Topical Cream JOHN ([facility]) Levetiracetam 1000 MG Oral Tablet JOHN ([facility]) Ketoconazole 20 MG/ML Topical Cream JOHN ([facility]) Ibuprofen 800 MG Oral Tablet JOHN ([facility]) Ibuprofen 600 MG Oral Tablet JOHN ([facility]) Hydrochlorothiazide 12.5 MG Oral Tablet JOHN ([facility]) heparin sodium, porcine 5000 UNT/ML Injectable Solution JOHN ([facility]) gabapentin 600 MG Oral Tablet JOHN ([facility]) 0.5 ML Fondaparinux sodium 5 MG/ML Prefilled Syringe JOHN ([facility]) Fluconazole 150 MG Oral Tablet JOHN ([facility]) ferrous sulfate 324 mg (65 mg iron) tablet,delayed release JOHN ([facility]) Esomeprazole 20 MG Delayed Release Oral Capsule JOHN ([facility]) Deblitane 0.35 mg tablet Take 1 tablet every day by oral route f or 84 days. JOHN ([facility]) Clonazepam 0.5 MG Oral Tablet JOHN ([facility]) Cholecalciferol 1000 UNT Oral Tablet JHON ([facility]) Cephalexin 500 MG Oral Capsule JOHN ([facility]) buspirone hydrochloride 5 MG Oral Tablet JOHN ([facility]) Bacitracin 0.5 UNT/MG Topical Ointment JOHN ([facility]) Aspirin 81 MG Delayed Release Oral Tablet JOHN ([facility]) Amoxicillin 875 MG / Clavulanate 125 MG Oral Tablet JOHN ([facility]) Ajovy Syringe 225 mg/1.5 mL subcutaneous JOHN ([facility]) Acetaminophen 325 MG Oral Tablet JOHN ([facility]) rivaroxaban 20 MG Oral Tablet [Xarelto] JOHN ([facility]) rivaroxaban 15 MG Oral Tablet [Xarelto] JOHN ([facility]) Ergocalciferol 00778 UNT Oral Capsule JOHN ([facility]) Ascorbic Acid 500 MG Oral Tablet JOHN ([facility]) tramadol hydrochloride 50 MG Oral Tablet JOHN ([facility]) topiramate 50 MG Oral Tablet JOHN ([facility]) topiramate 25 MG Oral Tablet JOHN ([facility]) quetiapine 100 MG Oral Tablet JOHN ([facility]) Ibuprofen 800 MG Oral Tablet JOHN ([facility]) heparin sodium, porcine 5000 UNT/ML Injectable Solution JOHN ([facility]) gabapentin 600 MG Oral Tablet JOHN ([facility]) 0.5 ML Fondaparinux sodium 5 MG/ML Prefilled Syringe JOHN ([facility]) Fluconazole 150 MG Oral Tablet JOHN ([facility]) ferrous sulfate 324 mg (65 mg iron) tablet,delayed release JOHN ([facility]) Esomeprazole 20 MG Delayed Release Oral Capsule JOHN ([facility]) Clonazepam 0.5 MG Oral Tablet JOHN ([facility]) Cephalexin 500 MG Oral Capsule JOHN ([facility]) Bacitracin 0.5 UNT/MG Topical Ointment JOHN ([facility]) Aspirin 81 MG Delayed Release Oral Tablet JOHN ([facility]) Amoxicillin 875 MG / Clavulanate 125 MG Oral Tablet JOHN ([facility]) Ajovy Syringe 225 mg/1.5 mL subcutaneous JOHN ([facility]) quetiapine 100 MG Oral Tablet JOHN ([facility]) Progesterone 200 MG Oral Capsule JOHN ([facility]) Prednisone 50 MG Oral Tablet JOHN ([facility]) Prednisone 10 MG Oral Tablet JOHN ([facility]) Prazosin 1 MG Oral Capsule A THENA ([facility]) Acetaminophen 325 MG / Oxycodone Hydrochloride 5 MG Oral Tablet JOHN ([facility]) Oxycodone Hydrochloride 5 MG Oral Tablet JOHN ([facility]) Ondansetron 8 MG Disintegrating Oral Tablet JOHN ([facility]) Nexium 24HR 20 mg tablet,delayed release JOHN ([facility]) Metronidazole 500 MG Oral Tablet JOHN ([facility]) Metoclopramide 10 MG Oral Tablet JOHN ([facility]) Metformin hydrochloride 500 MG Oral Tablet JOHN ([facility]) Magnesium Oxide 400 MG Oral Tablet JOHN ([facility]) Lidocaine 40 MG/ML Topical Cream JOHN ([facility]) Levetiracetam 1000 MG Oral Tablet JOHN ([facility]) Ketoconazole 20 MG/ML Topical Cream JOHN ([facility]) Ibuprofen 800 MG Oral Tablet JOHN ([facility]) heparin sodium, porcine 5000 UNT/ML Injectable Solution JOHN ([facility]) gabapentin 600 MG Oral Tablet JOHN ([facility]) 0.5 ML Fondaparinux sodium 5 MG/ML Prefilled Syringe JOHN ([facility]) Fluconazole 150 MG Oral Tablet JOHN ([facility]) ferrous sulfate 324 mg (65 mg iron) tablet,delayed release JOHN ([facility]) Esomeprazole 20 MG Delayed Release Oral Capsule JOHN ([facility]) Clonazepam 0.5 MG Oral Tablet JOHN ([facility]) Cephalexin 500 MG Oral Capsule OJHN ([facility]) Bacitracin 0.5 UNT/MG Topical Ointment JOHN ([facility]) Aspirin 81 MG Delayed Release Oral Tablet JOHN ([facility]) Amoxicillin 875 MG / Clavulanate 125 MG Oral Tablet JOHN ([facility]) Ajovy Syringe 225 mg/1.5 mL subcutaneous JOHN ([facility]) Progesterone 200 MG Oral Capsule JOHN ([facility]) Prednisone 50 MG Oral Tablet JOHN ([facility]) Prednisone 10 MG Oral Tablet JOHN ([facility]) Prazosin 1 MG Oral Capsule A THENA ([facility]) Acetaminophen 325 MG / Oxycodone Hydrochloride 5 MG Oral Tablet JOHN ([facility]) Oxycodone Hydrochloride 5 MG Oral Tablet JOHN ([facility]) Ondansetron 8 MG Disintegrating Oral Tablet JOHN ([facility]) Nexium 24HR 20 mg tablet,delayed release JOHN ([facility]) Metronidazole 500 MG Oral Tablet JOHN ([facility]) Metoclopramide 10 MG Oral Tablet JOHN ([facility]) Metformin hydrochloride 500 MG Oral Tablet JOHN ([facility]) Magnesium Oxide 400 MG Oral Tablet JOHN ([facility]) Lidocaine 25 MG/ML / Prilocaine 25 MG/ML Topical Cream JOHN ([facility]) Lidocaine 40 MG/ML Topical Cream JOHN ([facility]) Levetiracetam 1000 MG Oral Tablet JOHN ([facility]) Ketoconazole 20 MG/ML Topical Cream JOHN ([facility]) Ibuprofen 800 MG Oral Tablet JOHN ([facility]) heparin sodium, porcine 5000 UNT/ML Injectable Solution JOHN ([facility]) gabapentin 600 MG Oral Tablet JOHN ([facility]) 0.5 ML Fondaparinux sodium 5 MG/ML Prefilled Syringe JOHN ([facility]) Fluconazole 150 MG Oral Tablet JOHN ([facility]) ferrous sulfate 324 mg (65 mg iron) tablet,delayed release JOHN ([facility]) Esomeprazole 20 MG Delayed Release Oral Capsule JOHN ([facility]) Clonazepam 0.5 MG Oral Tablet JOHN ([facility]) Cephalexin 500 MG Oral Capsule JOHN ([facility]) Bacitracin 0.5 UNT/MG Topical Ointment JOHN ([facility]) Aspirin 81 MG Delayed Release Oral Tablet JOHN ([facility]) Amoxicillin 875 MG / Clavulanate 125 MG Oral Tablet JOHN ([facility]) Ajovy Syringe 225 mg/1.5 mL subcutaneous JOHN ([facility]) rivaroxaban 20 MG Oral Tablet [Xarelto] JOHN ([facility]) rivaroxaban 15 MG Oral Tablet [Xarelto] JOHN ([facility]) Ergocalciferol [id number] UNT Oral Capsule JOHN ([facility]) Ascorbic Acid 500 MG Oral Tablet JOHN ([facility]) tramadol hydrochloride 50 MG Oral Tablet JOHN ([facility]) topiramate 50 MG Oral Tablet JOHN ([facility]) topiramate 25 MG Oral Tablet JOHN ([facility]) quetiapine 100 MG Oral Tablet JOHN ([facility]) Progesterone 200 MG Oral Capsule JOHN ([facility]) Prednisone 50 MG Oral Tablet JOHN ([facility]) Prednisone 10 MG Oral Tablet JOHN ([facility]) Prazosin 1 MG Oral Capsule A THENA ([facility]) Acetaminophen 325 MG / Oxycodone Hydrochloride 5 MG Oral Tablet JOHN ([facility]) Oxycodone Hydrochloride 5 MG Oral Tablet JOHN ([facility]) Ondansetron 8 MG Disintegrating Oral Tablet JOHN ([facility]) Nexium 24HR 20 mg tablet,delayed release JOHN ([facility]) Metronidazole 500 MG Oral Tablet JOHN ([facility]) Metoclopramide 10 MG Oral Tablet JOHN ([facility]) Metformin hydrochloride 500 MG Oral Tablet JOHN ([facility]) Magnesium Oxide 400 MG Oral Tablet JOHN ([facility]) Lidocaine 25 MG/ML / Prilocaine 25 MG/ML Topical Cream JOHN ([facility]) Lidocaine 40 MG/ML Topical Cream JOHN ([facility]) Levetiracetam 1000 MG Oral Tablet JOHN ([facility]) Ketoconazole 20 MG/ML Topical Cream JOHN ([facility]) Ergocalciferol 43372 UNT Oral Capsule JOHN ([facility]) Ascorbic Acid 500 MG Oral Tablet JOHN ([facility]) tramadol hydrochloride 50 MG Oral Tablet JOHN ([facility]) topiramate 50 MG Oral Tablet JOHN ([facility] topiramate 25 MG Oral Tablet JOHN ([facility])
[2020-11-28] MEDS ORDERED: NS 1,000 ML IV ONE (16:00)
--- OUTSIDE RECORDS SUMMARY | 2020-11-28 16:00 | CCD ---
Author Author [facility] Organization [facility] Address Unknown Phone Unavailable Care Team Providers Care Nematology Teacher Name Role Phone Ginger, Eleni Angel MD [...] Eleni Angel MD Unavailable Unavailable Abigail-Maljude, Eleni Ismael MD Unavailable Unavailable Abigail-Maljude, Eleni Angel MD Unavailable Unavailable Abigail-Santosh, Eleni Angel MD Unavailable Unavailable Ginger, Eleni Angel MD Unavailable Unavailable AMISHA R ARNOLDO Unavailable Unavailable PHYSICIAN, PHYSICIAN ER Unavailable Unavailable MASTROGIANSTEVEN S ELOISA Unavailable Unavailable QUYNH WEBB Unavailable Unavailable Jaylon TARANGO MD Unavailable Unavailable Jaylon TARANGO MD Unavailable Unavailable SHIJaylon JOHNSON MD Unavailable Unavailable SHIJaylon JOHNSON MD Unavailable Unavailable SHIJaylon JOHNSON MD Unavailable Unavailable SHIJaylon JOHNSON MD Unavailable [...] MD Unavailable Unavailable Alexandre Arnett MD Unavailable [phone] Alexandre Arnett MD Unavailable [phone] Alexandre Arnett MD Unavailable [phone] Alexandre Arnett MD Unavailable [phone] Alexandre Arnett MD Unavailable [phone] Alexandre Arnett MD Unavailable [phone] MANJINDER BROWN Unavailable Unavailable Sundeep, [id number] MD Sid MD Unavailable Sundeep, [id number] MD Sid MD Unavailable Sundeep, [id number] MD Sid MD Unavailable Sundeep, [id number] MD Sid MD Unavailable Sundeep, [id number] MD Sid MD Unavailable Sundeep, [id number] MD Sid MD Unavailable Sundeep, [id number] MD Sid MD Unavailable Sundeep, [id number] MD Sid MD Unavailable Sundeep, [id number] MD Sid MD Unavailable Sundeep, [id number] MD Sid MD Unavailable Sundeep, [id number] MD Sid MD Unavailable Sundeep, [id number] MD Sid MD Unavailable Sundeep, [id number] MD Sid MD Unavailable Sundeep, [id number] MD Sid MD Unavailable Sundeep, [id number] MD Sid MD Unavailable Sundeep, [id number] MD Sid MD Unavailable Sundeep, [id number] MD Sid MD Unavailable Sundeep, [id number] MD Sid MD Unavailable Sundeep, [id number] MD Sid MD Unavailable Sundeep, [id number] MD Sid MD Unavailable Sundeep, [id number] MD Sid MD Unavailable Sundeep, [id number] MD Sid MD Unavailable Sundeep, [id number] MD Sid MD Unavailable Sundeep, [id number] MD Sid MD Unavailable Sundeep, [id number] MD Sid MD Unavailable Sudneep, [id number] MD Sid MD Unavailable Sundeep, [id number] MD Sid MD Unavailable Sundeep, [id number] MD Sid MD Unavailable Sundeep, [id number] MD Sid MD Unavailable Sundeep, [id number] MD Sid MD Unavailable Sundeep, [id number] Sid MD Unavailable Castro CONCEPCION Unavailable Unavailable [...] Unavailable Castro Kumar MD Unavailable Unavailable StacyCastro aguiar MD Unavailable Unavailable StacyCastro murray MD Unavailable Unavailable StacyCastro aguiar MD Unavailable Unavailable StacyCastro aguiar MD Unavailable Unavailable StacyCastro aguiar MD Unavailable Unavailable StacyCastro aguiar MD Unavailable Unavailable Stacy, Castro Tompkins MD Unavailable Unavailable StacyCastro murray MD Unavailable Unavailable StacyCastro murray MD Unavailable Unavailable StacyCastro murray MD Unavailable Unavailable StacyCastro murray MD Unavailable Unavailable StacyCastro aguiar MD Unavailable Unavailable StacyCastro aguiar MD Unavailable Unavailable StacyCastro aguiar MD Unavailable Unavailable StacyCastro aguira MD Unavailable Unavailable StacyCastro murray MD Unavailable Unavailable StacyCastro aguiar MD Unavailable Unavailable StacyCastro murray MD Unavailable Unavailable StacyCastro murray MD Unavailable Unavailable StacyCastro murray MD Unavailable Unavailable ALIASES , DEFAULT / [...] Unavailable Unavailable Eleni Mares MD Unavailable Unavailable PATRICK, 0000{ Unavailable Unavailable NOSOVITCH JRPanfilo MD Unavailable Unavailable NOSOVITCH JRPanfilo MD Unavailable Unavailable NOSOVITCH JRPanfilo MD Unavailable Unavailable NOSOVITCH JRPanfilo MD Unavailable Unavailable NOSOVITCH JRPanfilo MD Unavailable Unavailable NOSOVITCH JR, Panfilo BREEN MD Unavailable Unavailable NOSOVITCH JR, Panfilo BREEN MD Unavailable Unavailable NOSOVITCH JR, Pafnilo BREEN MD Unavailable Unavailable NOSOVITCH JR, Panfilo [...] MD Unavailable Unavailable NOSOVITCH JR, T JAMSHID PICHARDO Unavailable Unavailable NOSOVITCH JR, Panfilo BREEN MD Unavailable Unavailable NOSOVITCH JR, Panfilo BREEN MD Unavailable Unavailable NOSOVITCH JR, Panfilo BREEN MD Unavailable Unavailable NOSOVITCH JR, Panfilo BREEN MD Unavailable Unavailable NOSOVITCH JR, Panfilo BREEN MD Unavailable Unavailable NOSOVITCH JR, Panfilo BREEN MD Unavailable Unavailable NOSOVITCH JR, Panfilo BREEN MD Unavailable Unavailable ELIE FRANK Unavailable Unavailable MARAVEGIAObdulia Caba MD Unavailable Unavailable MARAVEGIASObdulia MD Unavailable Unavailable MARAVEGIAObdulia Caba MD Unavailable Unavailable MARAVEGIAObdulia Caba MD Unavailable Unavailable MARAVEGIASObdulia MD Unavailable Unavailable MARAVEGIAObdulia Caba MD Unavailable Unavailable MARAVEGIAObdulia Caba MD Unavailable Unavailable MARAVEGIAObdulia Caba MD Unavailable Unavailable MARAVEGIAObdulia Caba MD Unavailable Unavailable MARAVEGIAObdulia Caba MD Unavailable Unavailable MARAVEObdulia SIERRA MD Unavailable Unavailable MARAVEGIAObdulia Caba MD Unavailable Unavailable MARAVEObdulia SIERRA MD Unavailable Unavailable MARAVEObdulia SIERRA MD Unavailable Unavailable NOSOVITCH Panfilo MORSE MD [...] NOSOVITCH Panfilo MORSE MD Unavailable Unavailable NOSOVITCH JR, Panfilo BREEN [...] JOSE MARIA RPA-C Unavailable Unavailable WILKES, SCOT OJSE MARIA RPA-C Unavailable Unavailable WILKES, SCOT JOSE [...] WILKES, SCOT JOSE MARIA RPA-C Unavailable Unavailable WLIKES, SCOT JOSE MARIA RPA-C Unavailable Unavailable WILKES, [...] Unavailable Unavailable NOSOVITCH JRPanfilo MD Unavailable Unavailable Maranda Xie Unavailable [phone] Maranda Xie Unavailable [phone] Maranda Xie Unavailable [phone] Maranda Xie Unavailable [phone] Maranda Xie Unavailable [phone] Xie, Maranda Rebolledo PA Unavailable [phone] Xie, Maranda Rebolledo PA Unavailable [phone] Xie, Maranda Rebolledo PA Unavailable [phone] Xie, J Amaury PA Unavailable [phone] Xie, Maranda Rebolledo PA Unavailable [phone] Luiz Leblanc MD Unavailable Unavailable Luiz Leblanc MD Unavailable Unavailable Luiz Leblanc MD Unavailable Unavailable Luiz Leblanc MD Unavailable Unavailable Rosendo Leblancra Unavailable Unavailable Luiz [...] Claudette DO Unavailable Unavailable Addis, L Ambreen ENTRY LEVEL MACHINE OPERATOR Unavailable Unavailable Addis, L Ambreen ENTRY LEVEL MACHINE OPERATOR Unavailable Unavailable Addis, L Ambreen ENTRY LEVEL MACHINE OPERATOR Unavailable Unavailable Addis, L Ambreen ENTRY LEVEL MACHINE OPERATOR Unavailable Unavailable Addis, L Ambreen ENTRY LEVEL MACHINE OPERATOR Unavailable Unavailable Addis, L Ambreen ENTRY LEVEL MACHINE OPERATOR Unavailable Unavailable Addis, L Ambreen ENTRY LEVEL MACHINE OPERATOR Unavailable Unavailable Addis, L Ambreen ENTRY LEVEL MACHINE OPERATOR Unavailable Unavailable Addis, L Ambreen ENTRY LEVEL MACHINE OPERATOR Unavailable Unavailable Addis, L Ambreen ENTRY LEVEL MACHINE OPERATOR Unavailable Unavailable Addis, L Ambreen ENTRY LEVEL MACHINE OPERATOR Unavailable Unavailable Rosales BAILEY MD Unavailable Unavailable [...] Unavailable HIMMANUELITO, Rosales GUTIERREZ MD Unavailable Unavailable HIMMANUELITO, Rosales [...] BRIDGER PICHARDO Unavailable Unavailable HIMPLER, S BRIDGER MD Unavailable Unavailable HIMPLER, S BRIDGER PICHARDO [...] Unavailable Do, E Camilla PA PA Unavailable [phone] Do, E Camilla PA PA Unavailable [phone] Do, E Camilla PA PA Unavailable [phone] Do, E Camilla PA PA Unavailable [phone] Milian, R [place] ENTRY LEVEL MACHINE OPERATOR Unavailable Unavailable Milian, R [place] ENTRY LEVEL MACHINE OPERATOR Unavailable Unavailable Milian, R [place] ENTRY LEVEL MACHINE OPERATOR Unavailable Unavailable Milian, R [place] ENTRY LEVEL MACHINE OPERATOR Unavailable Unavailable Milian, R [place] ENTRY LEVEL MACHINE OPERATOR Unavailable Unavailable Milian, R [place] ENTRY LEVEL MACHINE OPERATOR Unavailable Unavailable Milian, R [place] ENTRY LEVEL MACHINE OPERATOR Unavailable Unavailable Milian, R [place] ENTRY LEVEL MACHINE OPERATOR Unavailable Unavailable Milian, R [place] ENTRY LEVEL MACHINE OPERATOR Unavailable Unavailable Milian, R [place] ENTRY LEVEL MACHINE OPERATOR Unavailable Unavailable Milian, R [place] ENTRY LEVEL MACHINE OPERATOR Unavailable Unavailable Milian, R [place] ENTRY LEVEL MACHINE OPERATOR Unavailable Unavailable Milian, R [place] ENTRY LEVEL MACHINE OPERATOR Unavailable Unavailable Milian, R Vriginia ENTRY LEVEL MACHINE OPERATOR Unavailable Unavailable Milian, R [place] ENTRY LEVEL MACHINE OPERATOR Unavailable Unavailable Milian, R [place] ENTRY LEVEL MACHINE OPERATOR Unavailable Unavailable Milian, R [place] ENTRY LEVEL MACHINE OPERATOR Unavailable Unavailable Milian, R [place] ENTRY LEVEL MACHINE OPERATOR Unavailable Unavailable Milian, R Virignia ENTRY LEVEL MACHINE OPERATOR Unavailable Unavailable Milian, R [place] ENTRY LEVEL MACHINE OPERATOR Unavailable Unavailable Milian, R [place] ENTRY LEVEL MACHINE OPERATOR Unavailable Unavailable Milian, R [place] ENTRY LEVEL MACHINE OPERATOR Unavailable Unavailable Milian, R [place] ENTRY LEVEL MACHINE OPERATOR Unavailable Unavailable Milian, R [place] ENTRY LEVEL MACHINE OPERATOR Unavailable Unavailable Milian, R [place] ENTRY LEVEL MACHINE OPERATOR Unavailable Unavailable Milian, R [place] ENTRY LEVEL MACHINE OPERATOR Unavailable Unavailable Milian, R [place] ENTRY LEVEL MACHINE OPERATOR Unavailable Unavailable Milian, R [place] ENTRY LEVEL MACHINE OPERATOR Unavailable Unavailable Milian, R [place] ENTRY LEVEL MACHINE OPERATOR Unavailable Unavailable Milian, R [place] ENTRY LEVEL MACHINE OPERATOR Unavailable Unavailable Milian, R [place] ENTRY LEVEL MACHINE OPERATOR Unavailable Unavailable Milian, R [place] ENTRY LEVEL MACHINE OPERATOR Unavailable Unavailable Luiz Leblanc MD Unavailable Unavailable Luiz Leblanc MD Unavailable Unavailable Luiz Leblanc MD Unavailable Unavailable Rosendo Leblancra Unavailable Unavailable Rosendo Leblancra Unavailable Unavailable Luiz Leblanc MD Unavailable Unavailable Rosendo Leblancra Unavailable Unavailable Luiz Leblanc MD Unavailable Unavailable Rosendo Leblancra Unavailable Unavailable Rosendo Leblancra Unavailable Unavailable Rosendo Leblancra Unavailable Unavailable Rosendo Leblancra Unavailable Unavailable Rosendo Leblancra Unavailable Unavailable Rosendo Leblancra Unavailable Unavailable Luiz Leblanc MD Unavailable Unavailable Luiz Leblanc MD Unavailable Unavailable Rosendo Leblancra Unavailable Unavailable Luiz Leblanc MD Unavailable Unavailable Luiz Leblanc MD Unavailable Unavailable Luiz Leblanc MD Unavailable Unavailable Luiz Leblanc MD Unavailable Unavailable Luiz Leblanc MD Unavailable Unavailable Rosendo Leblancra Unavailable Unavailable Luiz [...] MD Unavailable Unavailable Rosendo Leblancra Unavailable Unavailable Luiz Leblanc MD Unavailable Unavailable Rosendo Leblancra Unavailable Unavailable Rosendo Leblancra Unavailable Unavailable Luiz Leblanc MD Unavailable Unavailable Barb, R Teddy PT Unavailable Unavailable Barb, R Teddy PT Unavailable Unavailable Barb, R Teddy PT Unavailable Unavailable Barb, R Teddy PT Unavailable Unavailable Barb, R Teddy PT Unavailable Unavailable Brab, R Teddy PT Unavailable Unavailable Barb, R [...] R Teddy PT Unavailable Unavailable Mina, I Etser Unavailable + Mina, I Ester Unavailable + Mina, I Ester [...] Kopko, Eleni Ramos MD Unavailable Unavailable Kopko, lEeni Ramos MD Unavailable Unavailable Kopko, Eleni Ramos [...] Unavailable Reyna, L Lorna PA Unavailable Unavailable MONSERRAT MELÉNDEZ Unavailable Unavailable Keddy, A Vinod DC Unavailable [...] Keddy, A Vinod DC Unavailable Unavailable Adryan MORALES-C Unavailable Unavailable Adryan MORALES PA-C Unavailable Unavailable [place]-Becht, TUBE LASER OPERATOR Audrey ENVIRONMENTAL HEALTH AIDE Unavailable [phone] [place]-Becht, TUBE LASER OPERATOR Audrey ENVIRONMENTAL HEALTH AIDE Unavailable [phone] [place]-Becht, TUBE LASER OPERATOR Audrey ENVIRONMENTAL HEALTH AIDE Unavailable [phone] Tara-Becht, TUBE LASER OPERATOR Audrey ENVIRONMENTAL HEALTH AIDE Unavailable [phone] Tara-Becht, TUBE LASER OPERATOR Audrey ENVIRONMENTAL HEALTH AIDE Unavailable [phone] [place]-Becht, TUBE LASER OPERATOR Audrey ENVIRONMENTAL HEALTH AIDE Unavailable [phone] [place]-Becht, TUBE LASER OPERATOR Audrey ENVIRONMENTAL HEALTH AIDE Unavailable [phone] [place]-Becht, TUBE LASER OPERATOR Audrey ENVIRONMENTAL HEALTH AIDE Unavailable [phone] [phone] [place]-Becht, TUBE LASER OPERATOR Audrey ENVIRONMENTAL HEALTH AIDE Unavailable +[phone] [phone] Tara-Becht, TUBE LASER OPERATOR Audrey ENVIRONMENTAL HEALTH AIDE Unavailable [phone] Tara-Becht, TUBE LASER OPERATOR Audrey ENVIRONMENTAL HEALTH AIDE Unavailable [phone] [place]-Becht, TUBE LASER OPERATOR Audrey ENVIRONMENTAL HEALTH AIDE Unavailable [phone] [place]-Becht, TUBE LASER OPERATOR Audrey ENVIRONMENTAL HEALTH AIDE Unavailable [phone] Tara-Becht, TUBE LASER OPERATOR Audrey ENVIRONMENTAL HEALTH AIDE Unavailable [phone] KENDRA GONZALEZ Unavailable Unavailable Tara-Becht, Audrey ENVIRONMENTAL HEALTH AIDE Unavailable Unavaila ble Mely MATOS Unavailable Unavailable Mely MATOS PA Unavailable Unavailable Mely MATOS PA Unavailable Unavailable [facility], [facility] WILKES BRISA MOISE Unavailable Unavailable Maksim Meléndez Monserrat Unavailable Unavailable Maksim Meléndez Monserrat Unavailable Unavailable Kj DUNN KIKA ENTRY LEVEL MACHINE OPERATOR Unavailable Unavailable Kj DUNN KIKA ENTRY LEVEL MACHINE OPERATOR Unavailable Unavailable Kj DUNN KIKA ENTRY LEVEL MACHINE OPERATOR Unavailable Unavailable Kj DUNN KIKA ENTRY LEVEL MACHINE OPERATOR Unavailable Unavailable MONA C KIKA ENTRY LEVEL MACHINE OPERATOR Unavailable Unavailable MONA, C KIKA ENTRY LEVEL MACHINE OPERATOR Unavailable Unavailable MONA, C KIKA ENTRY LEVEL MACHINE OPERATOR Unavailable Unavailable MONA, C KIKA ENTRY LEVEL MACHINE OPERATOR Unavailable Unavailable MONA, C KIKA ENTRY LEVEL MACHINE OPERATOR Unavailable Unavailable MONA, C KIKA ENTRY LEVEL MACHINE OPERATOR Unavailable Unavailable MONA, C KIKA ENTRY LEVEL MACHINE OPERATOR Unavailable Unavailable MONA, C KIKA ENTRY LEVEL MACHINE OPERATOR Unavailable Unavailable MONA, C KIKA ENTRY LEVEL MACHINE OPERATOR Unavailable Unavailable MONA, C KIKA ENTRY LEVEL MACHINE OPERATOR Unavailable Unavailable MONA, C KIKA ENTRY LEVEL MACHINE OPERATOR Unavailable Unavailable MONA, C KIKA ENTRY LEVEL MACHINE OPERATOR Unavailable Unavailable MONA, C KIKA ENTRY LEVEL MACHINE OPERATOR Unavailable Unavailable MONA, C KIKA ENTRY LEVEL MACHINE OPERATOR Unavailable Unavailable MONA, C KIKA ENTRY LEVEL MACHINE OPERATOR Unavailable Unavailable MONA, C KIKA ENTRY LEVEL MACHINE OPERATOR Unavailable Unavailable MONA, C KIKA ENTRY LEVEL MACHINE OPERATOR Unavailable Unavailable MONA, C KIKA ENTRY LEVEL MACHINE OPERATOR Unavailable Unavailable MONA, C KIKA ENTRY LEVEL MACHINE OPERATOR Unavailable Unavailable Courtney Bracket, CASAC BRAKE PRESS OPERATOR Unavailable Unavailable Courtney Bracket, CASAC BRAKE PRESS OPERATOR Unavailable Unavailable [place]ways, W Michelle BRAKE PRESS OPERATOR Unavailable Unavailable [place], W Michelle BRAKE PRESS OPERATOR Unavailable Unavailable SUNDEEP, SID Unavailable Unavailable [...] K Irma PA Unavailable Unavailable Scozzari, K Rima PA Unavailable Unavailable Scozzari, K Irma PA [...] Irma PA Unavailable Unavailable ZEGIL D BENEDICT TUBE LASER OPERATOR Unavailable Unavailable ZEGIL D BENEDICT TUBE LASER OPERATOR Unavailable Unavailable ZEGIL D BENEDICT TUBE LASER OPERATOR Unavailable Unavailable Jaylon TARANGO MD Unavailable Unavailable [...] Unavailable Unavailable SHIJaylon JOHNSON MD Unavailable Unavailable SHIJaylon JOHNSON MD Unavailable [...] Unavailable Ritchie, Izabela Unavailable Unavailable Adryan RUSHING ENTRY LEVEL MACHINE OPERATOR Unavailable Adryan RUSHING ENTRY LEVEL MACHINE OPERATOR Unavailable Adryan RUSHING ENTRY LEVEL MACHINE OPERATOR Unavailable Adryan RUSHING ENTRY LEVEL MACHINE OPERATOR Unavailable KRISTAN, L MAU ENTRY LEVEL MACHINE OPERATOR Unavailable KRISTAN L MAU ENTRY LEVEL MACHINE OPERATOR Unavailable KRISTAN, L MAU ENTRY LEVEL MACHINE OPERATOR Unavailable KRISTAN, L MAU ENTRY LEVEL MACHINE OPERATOR Unavailable KRISTAN, L MAU ENTRY LEVEL MACHINE OPERATOR Unavailable KRISTAN L MAU ENTRY LEVEL MACHINE OPERATOR Unavailable KRISTAN L MAU ENTRY LEVEL MACHINE OPERATOR Unavailable KRISTAN L MAU ENTRY LEVEL MACHINE OPERATOR Unavailable Adryan RUSHING MAU ENTRY LEVEL MACHINE OPERATOR Unavailable FAN, L DB PICHARDO Unavailable Unavailable [...] DB PICHARDO Unavailable Unavailable FAN, L DB PICHADRO Unavailable Unavailable FAN, L DB PICHARDO Unavailable Unavailable FAN, L DB PICHARDO Unavailable Unavailable FAN, L DB PICHARDO Unavailable Unavailable FAN, L DB PICHARDO Unavailable Unavailable FAN, L DB PICHARDO Unavailable Unavailable FAN, L DB PICHARDO Unavailable Unavailable FAN, L DB MD Unavailable Unavailable Adryan FAN MD Unavailable Unavailable Elizabeth, Rosy ENTRY LEVEL MACHINE OPERATOR Unavailable Unavailable Elizabeth, Rosy ENTRY LEVEL MACHINE OPERATOR Unavailable Unavailable Elizabeth, Rosy ENTRY LEVEL MACHINE OPERATOR Unavailable Unavailable Elizabeth, Rosy ENTRY LEVEL MACHINE OPERATOR Unavailable Unavailable Elizabeth, Rosy ENTRY LEVEL MACHINE OPERATOR Unavailable Unavailable Elizabeth, Rosy ENTRY LEVEL MACHINE OPERATOR Unavailable Unavailable Elizabeth, Rosy ENTRY LEVEL MACHINE OPERATOR Unavailable Unavailable Elizabeth, Rosy ENTRY LEVEL MACHINE OPERATOR Unavailable Unavailable Elizabeth, Rosy ENTRY LEVEL MACHINE OPERATOR Unavailable Unavailable PHYSICIAN, ER Unavailable Unavailable JACOB PICHARDO, MONSERRAT Unavailable Unavailable Malek, Panfilo Lam MD Unavailable [phone] Malek, Panfilo Lam MD Unavailable [phone] Malek, Panfilo Lam MD Unavailable [phone] Malek, T Rameshza MD Unavailable [phone] Malek, T Hamza MD Unavailable [phone] Malek, T Rameshza Unavailable [phone] Malek, T Hamza Unavailable [phone] Malek, T Hamza MD Unavailable [phone] Malek, T Hamza MD Unavailable [phone] Malek, T Hamza MD Unavailable [phone] Malek, T Hamza MD Unavailable [phone] Malek, T Hamza MD Unavailable [phone] Malek, T Hamza MD Unavailable [phone] Espinosa, Yingzi ENTRY LEVEL MACHINE OPERATOR Unavailable Unavailable Espinosa, Yingzi ENTRY LEVEL MACHINE OPERATOR Unavailable Unavailable Espinosa, Yingzi ENTRY LEVEL MACHINE OPERATOR Unavailable Unavailable Espinosa, Yingzi ENTRY LEVEL MACHINE OPERATOR Unavailable Unavailable Espinosa, Yingzi ENTRY LEVEL MACHINE OPERATOR Unavailable Unavailable Espinosa, Yingzi ENTRY LEVEL MACHINE OPERATOR Unavailable Unavailable Espinosa, Yingzi ENTRY LEVEL MACHINE OPERATOR Unavailable Unavailable Espinosa, Yingzi ENTRY LEVEL MACHINE OPERATOR Unavailable Unavailable Espinosa, Yingzi ENTRY LEVEL MACHINE OPERATOR Unavailable Unavailable Espinosa, Yingzi ENTRY LEVEL MACHINE OPERATOR Unavailable Unavailable Espinosa, Yingzi ENTRY LEVEL MACHINE OPERATOR Unavailable Unavailable Espinosa, Yingzi ENTRY LEVEL MACHINE OPERATOR Unavailable Unavailable Espinosa, Yingzi ENTRY LEVEL MACHINE OPERATOR Unavailable Unavailable Espinosa, Yingzi ENTRY LEVEL MACHINE OPERATOR Unavailable Unavailable Espinosa, Yingzi ENTRY LEVEL MACHINE OPERATOR Unavailable Unavailable Espinosa, Yingzi ENTRY LEVEL MACHINE OPERATOR Unavailable Unavailable Espinosa, Yingzi ENTRY LEVEL MACHINE OPERATOR Unavailable Unavailable Espinosa, Yingzi ENTRY LEVEL MACHINE OPERATOR Unavailable Unavailable Espinosa, Yingzi ENTRY LEVEL MACHINE OPERATOR Unavailable Unavailable Espinosa, Yingzi ENTRY LEVEL MACHINE OPERATOR Unavailable Unavailable Espinosa, Yingzi ENTRY LEVEL MACHINE OPERATOR Unavailable Unavailable Espinosa, Yingzi ENTRY LEVEL MACHINE OPERATOR Unavailable Unavailable Espinosa, Yingzi ENTRY LEVEL MACHINE OPERATOR Unavailable Unavailable Espinosa, Yingzi ENTRY LEVEL MACHINE OPERATOR Unavailable Unavailable Espinosa, Yingzi ENTRY LEVEL MACHINE OPERATOR Unavailable Unavailable Espinosa, Yingzi ENTRY LEVEL MACHINE OPERATOR Unavailable Unavailable Espinosa, Yingzi ENTRY LEVEL MACHINE OPERATOR Unavailable Unavailable Espinosa, Yingzi ENTRY LEVEL MACHINE OPERATOR Unavailable Unavailable Epsinosa, Yingzi ENTRY LEVEL MACHINE OPERATOR Unavailable Unavailable Espinosa, Yingzi ENTRY LEVEL MACHINE OPERATOR Unavailable Unavailable Espinosa, Yingzi ENTRY LEVEL MACHINE OPERATOR Unavailable Unavailable Espinosa, Yingzi ENTRY LEVEL MACHINE OPERATOR Unavailable Unavailable Espinosa, Yingzi ENTRY LEVEL MACHINE OPERATOR Unavailable Unavailable Espinosa, Yingzi ENTRY LEVEL MACHINE OPERATOR Unavailable Unavailable Espinosa, Yingzi ENTRY LEVEL MACHINE OPERATOR Unavailable Unavailable Espinosa, Yingzi ENTRY LEVEL MACHINE OPERATOR Unavailable Unavailable Espinosa, Yingzi ENTRY LEVEL MACHINE OPERATOR Unavailable Unavailable EBER, A HANNAH PA Unavailable Unavailable EBER, A HANNAH PA Unavailable Unavailable BEER, A HANNAH PA Unavailable Unavailable EBER, A [...] is protected by Article 27-F of the [facility] Public Health law. If you continue you may have access to information: Regarding HIV / AIDS; Provided by facilities licensed or operated by the [facility] Office of Mental Health; or Provided by the [facility] Office for People With Developmental Disabilities. If such information is present, then the following [facility] mandated warning applies: This information has been [...] law may result in a fine or correction sentence or both. A general authorization for the release of medical or other information is NOT sufficient authorization for further disc losure. Allergies and Adverse Reactions Type Description Substance Reaction Status Data Source(s ) Drug allergy Drug allergy hydroxychloroquine Unknown Reaction [facility] Drug allergy Drug allergy enoxaparin Unknown Reaction [facility] Drug allergy Drug allergy Latex, Natural Rubber Unknown Reaction [facility] Allergy to substance Allergy to substance Plaquenil JOHN ([facility]) Allergy to substance Allergy to substance Plaquenil JOHN ([facility]) Allergy to substance Allergy to substance Plaquenil JOHN ([facility]) Allergy to substance Allergy to substance Plaquenil JOHN ([facility]) Drug allergy TRUE LATEX TRUE LATEX anaphlaxis [facility] Drug allergy FINERGAN FINERGAN vomiting U [facility] Drug allergy LOVANOX LOVANOX seizure threshold [facility] PLAQUENIL PLAQUENIL anaphlaxis U [facility] DRUG INGREDI BANANA BANANA [facility] Drug [facility] latex [facility] Drug allergy Drug allergy hydroxychloroquine (From Plaquenil) [facility] Drug allergy Drug allergy ketorolac (From Toradol) [facility] Drug allergy Drug allergy promethazine (From Phenergan) [facility] Drug allergy Drug allergy enoxaparin (From Lovenox) [facility] Drug allergy Drug allergy famotidine (From Pepcid) [facility] Drug allergy Drug allergy morphine [facility] Drug allergy Drug allergy Pork/Porcine Containing Products [facility] Encounters Encounter Providers Location Date Indications Data Source(s ) Unknown [address] [facility] [place] [address] 11/22/2020 12:00:00 AM EST eCW1 ([facility]) (PN Proc 60) Pain Procedure 60 [address] [place] [address] 11/22/2020 12:00:00 AM EST eCW1 ([facility]) Unknown [address] [facility] [address] 11/22/2020 12:00:00 AM EST eCW1 ([facility]) Outpatient Attender: Rosy Johnson NP CPSCAORT-CPSGNBEH 06/2021 02:11:00 PM EST - 11/19/2020 02:12:00 PM EST [facility] Patient discharged. Unknown [address] [facility] [address] 11/19/2020 12:00:00 AM EST eCW1 ([facility]) Unknown [address] [facility] [place] [address] 11/17/2020 12:00:00 AM EST eCW1 ([facility]) Jose Maria Wilkes RPA-C: [address] [facility], [place] [address], Ph. Attender: JOSE MARIA WILKES RPA-C [facility] Medical 11/08/2020 12:00:00 AM EST JOHN ([facility]) Outpatient Attender: Chad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 Botox 100 UNIT eCW1 ([facility]) onabotulinumtoxinA 100 UNT/ML Injectable Solution [Bot ox] Botox 100 UNIT Botox 100 UNIT 11/17/2020 12:00:00 AM EST active Botox 100 UNIT eCW1 ([facility]) onabotulinumtoxinA 100 UNT/ML Injectable Solution [Bot ox] Botox 100 UNIT Botox 100 UNIT 11/17/2020 12:00:00 AM EST active Botox 100 UNIT eCW1 ([facility]) pregabalin 75 MG Oral Capsule Pregabalin 75 MG Oral Ca psule (LYRICA) Pregabalin 75 MG Oral Capsule (LYRICA) 08/30/2020 12:00:00 AM EDT active TAKE 1 CAPSULE BY MOUTH ONCE A DAY MAXIMUM DAILY DOSE 1 CAPSULE [facility] Ibuprofen 600 MG Oral Tablet Ibuprofen 08/25/2020 12:00:00 AM EDT ORAL active MEDENT ([facility]) Megan-Be Megan-Be 08/25/2020 12:00:00 AM EDT ORAL active MEDENT ([facility] [employer] [facility]) 24 HR Nifedipine 30 MG Extended Release Oral Tablet NIFEdipine ER 30 MG Oral Tablet Extended Release 24 Hour ([facility]) NIFEdipine ER 30 MG Oral Tablet Extended Release 24 Hour (ADALAT CC) 08/11/2020 12:00:00 AM EDT active [facility] Levetiracetam 750 MG Oral Tablet levETIRAcetam 750 MG Oral Tablet (KEPPRA) levETIRAcetam 750 MG Oral Tablet (KEPPRA) 07/10/2020 12:00:00 AM EDT 1500 mg Oral aborted Take 1,500 mg by rojas th Two Times Daily [facility] Acetaminophen 325 MG / butalbital 50 MG / Caffeine 40 MG Oral Tablet Rnncftglkd-HDDM-Ywtlrpwx 50-325-40 MG Oral Tablet (FIORICET) Igtxncdytk-XOMC-Pxycmmde 50-325-40 MG Oral Tablet (FIORICET) 06/14/2020 12:00:00 AM EDT active [facility] Esomeprazole 20 MG Delayed Release Oral Capsule Esomeprazole Magnesium 20 MG Oral Capsule Delayed Release (NexIUM) Esomeprazole Magnesium 20 MG Oral Capsul e Delayed Release (NexIUM) 06/08/2020 12:00:00 AM EDT 20 mg Oral aborted Gastroesophageal reflux disease without esophagitis Ta ke 1 capsule by mouth every morning before breakfast [facility] Gastroesophageal reflux disease without esophagitis Docusate Sodium 100 MG Oral Capsule [DOK] DOK 100 MG O ral Capsule DOK 100 MG Oral Capsule 06/03/2020 12:00:00 AM EDT aborted [facility] EPINEPHrine 0.3 MG/0.3ML Injection Solution Auto-injector (E PIPEN) [id number] 05/26/2020 12:00:00 AM EDT active INJECT 1 SYRINGE INTRAMUSCULARLY ONCE NEEDED SHORTNESS OF BREATH [facility] Cholecalciferol 1000 UNT Oral Tablet Vit oates D3 25 MCG (1000 UT) Oral Tablet (CHOLECALCIFEROL) Vitamin D3 25 MCG (1000 UT) Oral Tablet (CHOLECALCIFER OL) 05/25/2020 12:00:00 AM EDT active TAKE ONE AND ONE HALF TABLETS BY MOUTH EVERY DAY [facility] 27-0.8 MG Oral Tablet 2213-6881-38 05/25/2020 12:00:00 AM EDT active TAKE ONE TABLET BY MOUTH FRANCINE RODRIGUEZ [facility] Tuberculin-Allergy Syringes 28G X 1/2" 1 ML [id number] 05/24/2020 12:00:00 AM EDT aborted Use as directed. Use as directed [facility] 300 mg 05/10/2020 12:00:00 AM EDT tablet [...] Oral active Take [address] [facility] 90 mcg/actuation 04/22/2020 12:00:00 AM EDT [...] mg by rojas th Two Times Daily [facility] 0.5 mg-3 mg(2.5 mg base)/3 mL 02/03/2020 [...] AND ONE-HALF TABLETS BY MOUTH E SOLD: 04/18/2020 [facility] 25 mcg (1,000 unit) 01/12/2020 12:00:00 AM EST tablet 45 TAKE ONE AND ONE- HALF TABLETS BY MOUTH EVERY DAY TAKE ONE AND ONE-HALF TABLETS BY MOUTH E SOLD: 02/16/2020 [facility] 25 mcg [...] EVERY 6 HOURS NEEDED SOLD: 01/11/2020 [facility] 90 mcg/actuation 01/09/2020 12:00:00 AM EST [...] substitution of vitamin based on insurance approval. [facility] Aspirin 81 MG Delayed Release Oral Table t Aspirin EC 81 MG Oral Tablet Delayed Release Aspirin EC 81 MG Oral Tablet Delayed Release 12/11/2019 12:0 0:00 AM EST 81 mg Oral active Take 1 tablet by mouth daily [facility] 12.5 mg 12/09/2019 12:00:00 AM EST capsule [...] ONCE WEEKLY SOLD: 12/07/2019 [facility] Ergocalciferol 19614 UNT Oral Capsule Vi tamin D (Ergocalciferol) 1.25 MG (55972 UT) Oral Capsule (ERGOCALCIFEROL) Vitamin D (Ergocalciferol) 1.25 MG (5000 0 UT) Oral Capsule (ERGOCALCIFEROL) 12/05/2019 12:00:00 AM EST active every 7 (seven) days Alt [address]98 and [id number] weekly [facility] quetiapine 300 MG Oral Tablet QUETIAPINE FUMARATE [...] ACT Inhalation Aerosol Solution (PROVENTIL HFA;VENTOLIN HFA) [id number] 11/27/2019 12:00:00 AM EST active [facility] 20 mg 11/26/2019 12:00:00 AM EST capsule 60 TAKE TWO CAPSULES BY MOUTH EVERY DAY TAKE TWO CAPSULES BY MOUTH EVERY DAY SOLD: 12/28/2019 [facility] 20 mg 11/26/2019 12:00:00 AM EST capsule 60 TAKE TWO CAPSULES BY MOUTH EVERY DAY TAKE TWO CAPSULES BY MOUTH EVERY DAY SOLD: 11/28/2019 [facility] 1 mg 11/25/2019 12:00:00 AM [...] MAXIMUM DAILY DOSE = 3 SOLD: 11/06/2019 [facility] quetiapine 100 MG Oral Tablet QUETIAPINE FUMARATE 10/31/2019 12: 00:00 AM EST tablet 45 TAKE ONE AND ONE-HALF TABLETS BY MOUTH EVERY DAY AT BEDTIME TAKE ONE AND ONE-HALF TABLETS BY MOUTH EVERY DAY AT BEDTIME SOLD: 11/06/2019 [facility] 1 mg 10/31/2019 12:00:00 AM EST [...] TABLET BY MOUTH AT BEDTIME SOLD: 10/15/2019 [facility] 20 mg 10/13/2019 12:00:00 AM EST capsule 60 TAKE TWO CAPSULES BY MOUTH EVERY DAY TAKE TWO CAPSULES BY MOUTH EVERY DAY SOLD: 10/15/2019 [facility] 25 mg 10/07/2019 12:00:00 AM EST tablet 60 TAKE 1 TABLET BY MOUTH ONCE DAILY FOR 10 DAYS, THEN 2 TABLETS FOR 10 DAYS, THEN 3 TABLETS DAILY TAKE 1 TABLET BY MOUTH ONCE DAILY FOR 10 DAYS, THEN 2 TABLETS FOR 10 DAYS, THEN 3 TABLETS DAILY SOLD: 10/08/2019 [facility] quetiapine 50 MG Oral Tablet QUETIAPINE FUMARATE [...] EVERY 6 HOURS NEEDED SOLD: 10/08/2019 [facility] 600 mg 08/22/2019 12:00:00 AM EDT [...] BY MOUTH TWICE A DAY WITH FOOD [facility] 12.5 mg 06/24/2019 12:00:00 AM EDT capsule [...] completed progesterone 200 MG Oral Capsule JOHN ([facility]) Amoxicillin 875 MG / Clavulanate 125 MG Oral Tablet amoxicillin 875 mg-potassium clavulanate 125 mg tablet amoxicillin 875 mg-potassium clavulanate 125 mg tablet completed amoxici llin 875 MG / clavulanate 125 MG Oral Tablet JOHN ([facility]) Magnesium Oxide 400 MG Oral Tablet magne sium oxide 400 mg (241.3 mg magnesium) tablet magnesium oxide 400 mg (241.3 mg magnesium) tablet completed magnesium oxide 400 MG Oral Tablet ATHEN A ([facility]) Prednisone 10 MG Oral Tablet prednisone 10 mg tablet prednisone 10 mg tablet completed prednisone 10 MG Oral Tablet JOHN ([facility]) Progesterone 200 MG Oral Capsule progesterone microniz ed 200 mg capsule progesterone micronized 200 mg capsule completed progesterone 200 MG Oral Capsule JOHN ([facility]) Metoclopramide 10 MG Oral Tablet metoclopramide 10 mg tablet metoclopramide 10 mg tablet completed metocloprami de 10 MG Oral Tablet JOHN ([facility]) Lidocaine 25 MG/ML / Prilocaine 25 MG/ML Topical Cream lidocaine-prilocaine 2.5 %-2.5 % topical cream lidocaine-prilocaine 2.5 %-2.5 % topical cream completed lidocaine 25 MG/ML / priloca ine 25 MG/ML Topical Cream JOHN ([facility]) Prednisone 10 MG Oral Tablet prednisone 10 mg tablet prednisone 10 mg tablet completed prednisone 10 MG Oral Tablet [place] ([facility]) Levetiracetam 1000 MG Oral Tablet levetiracetam 1,000 mg tablet 1 levetiracetam 1,000 mg tablet 1 completed leve tiracetam 1000 MG Oral Tablet [place] ([facility]) gabapentin 600 MG Oral Tablet gabapentin 600 mg tablet gabap entin 600 mg tablet completed gabapentin 600 MG Oral Tablet [place] ([facility]) rivaroxaban 20 MG Oral Tablet [Xarelto] Xarelto 20 mg tablet Take 1 tablet every day by oral route. Xarelto 20 mg tablet Take 1 tablet every day by oral r oute. 1 completed rivaroxaban 20 MG Oral Tablet [Xarelto] [place] ([facility]) Ketoconazole 20 MG/ML Topical Cream ketoconazole 2 % t opical cream ketoconazole 2 % topical cream completed keto conazole 20 MG/ML Topical Cream [facility]) rivaroxaban 15 MG Oral Tablet [Xarelto] Xarelto 15 mg tablet Take 1 tablet every day by oral route as directed. Xarelto 15 mg tablet Take 1 tablet every day by oral route as directed. 1 completed rivaroxaban 15 MG Oral Tablet [Xarelto] [facility]) Deblitane 0.35 mg tablet Take 1 tablet every day by or al route for 84 days. [id number] 1 completed Deblitane 0.35 mg tablet [place] ([facility]) Bacitracin 0.5 UNT/MG Topical Ointment b acitracin 500 unit/gram topical ointment bacitracin 500 unit/gram topical ointment completed bacitracin 0.5 UNT/MG Topical Ointment [place] ([facility]) rivaroxaban 20 MG Oral Tablet [Xarelto] Xarelto 20 mg tablet Take 1 tablet every day by oral route. Xarelto 20 mg tablet Take 1 tablet every day by oral r oute. 1 completed rivaroxaban 20 MG Oral Tablet [Xarelto] [facility] ([facility]) Metformin hydrochloride 500 MG Oral Tablet metformin 5 00 mg tablet metformin 500 mg tablet completed metformin h ydrochloride 500 MG Oral Tablet [place] ([facility]) Hydrochlorothiazide 12.5 MG Oral Tablet hydrochlorothiazide 12.5 mg tablet Take 1 tablet every day by oral route. hydrochlorothiazide 12.5 mg tablet Take 1 tablet every day by oral route. 1 comple jina hydrochlorothiazide 12.5 MG Oral Tablet JOHN ([facility]) 0.5 ML Fondaparinux sodium 5 MG/ML Prefi lled Syringe fondaparinux 2.5 mg/0.5 mL subcutaneous solution syringe fondaparinux 2.5 mg/0.5 mL subcutaneous solution syringe completed 0.5 ML fondaparinux sodium 5 MG/ML Prefilled Syringe [place] ([facility]) Amoxicillin 875 MG / Clavulanate 125 MG Oral Tablet amoxicillin 875 mg-potassium clavulanate 125 mg tablet amoxicillin 875 mg-potassium clavulanate 125 mg tablet completed amoxici llin 875 MG / clavulanate 125 MG Oral Tablet [place] ([facility]) Ketoconazole 20 MG/ML Topical Cream ketoconazole 2 % t opical cream ketoconazole 2 % topical cream completed keto conazole 20 MG/ML Topical Cream [place] ([facility]) rivaroxaban 15 MG Oral Tablet [Xarelto] Xarelto 15 mg tablet Take 1 tablet every day by oral route as directed. Xarelto 15 mg tablet Take 1 tablet every day by oral route as directed. 1 completed rivaroxaban 15 MG Oral Tablet [Xarelto] [place] ([facility]) Amoxicillin 875 MG / Clavulanate 125 MG Oral Tablet amoxicillin 875 mg-potassium clavulanate 125 mg tablet amoxicillin 875 mg-potassium clavulanate 125 mg tablet completed amoxici llin 875 MG / clavulanate 125 MG Oral Tablet [place] ([facility]) Prednisone 50 MG Oral Tablet prednisone 50 mg tablet prednisone 50 mg tablet completed prednisone 50 MG Oral Tablet [place] ([facility]) tramadol hydrochloride 50 MG Oral Tablet tramadol 50 m g tablet tramadol 50 mg tablet completed tramadol hydroc hloride 50 MG Oral Tablet [place] ([facility]) Ajovy Syringe 225 mg/1.5 mL subcutaneous [id number] completed 1.5 ML fremanezumab-vfrm 150 MG/ML Prefilled Syringe [Ajovy] [place] ([facility]) Ibuprofen 800 MG Oral Tablet ibuprofen 800 mg tablet ibuprofen 8 00 mg tablet completed ibuprofen 800 MG Oral Tablet JOHN ([facility]) Ergocalciferol 45495 UNT Oral Capsule Vi tamin D2 1,250 mcg (50,000 unit) capsule Vitamin D2 1,250 mcg (50,000 unit) capsule completed ergocalciferol 1.25 MG Oral Capsule JOHN ([facility]) Ergocalciferol 31265 UNT Oral Capsule Vi tamin D2 1,250 mcg (50,000 unit) capsule Vitamin D2 1,250 mcg (50,000 unit) capsule completed ergocalciferol 1.25 MG Oral Capsule JOHN ([facility]) Metronidazole 500 MG Oral Tablet metronidazole 500 mg tablet metronidazole 500 mg tablet completed metronidazol e 500 MG Oral Tablet [place] ([facility]) Lidocaine 40 MG/ML Topical Cream lidocaine 4 % topical cream lidocaine 4 % topical cream completed lidocain e 40 MG/ML Topical Cream [place] ([facility]) 0.5 ML Fondaparinux sodium 5 MG/ML Prefi lled Syringe fondaparinux 2.5 mg/0.5 mL subcutaneous solution syringe fondaparinux 2.5 mg/0.5 mL subcutaneous solution syringe completed 0.5 ML fondaparinux sodium 5 MG/ML Prefilled Syringe JOHN ([facility]) Clonazepam 0.5 MG Oral Tablet clonazepam 0.5 mg tablet clona zepam 0.5 mg tablet completed clonazepam 0.5 MG Oral Tablet [place] ([facility]) Lidocaine 40 MG/ML Topical Cream lidocaine 4 % topical cream lidocaine 4 % topical cream completed lidocain e 40 MG/ML Topical Cream JOHN ([facility]) Cholecalciferol 1000 UNT Oral Tablet cho lecalciferol (vitamin D3) 25 mcg (1,000 unit) tablet Take 1 tablet every day by oral route for 30 days. cholecalciferol (vitamin D3) 25 mcg (1,000 unit) tablet Take 1 tablet every day by oral route for 30 days. 1 completed cholecalc iferol 0.025 MG Oral Tablet JOHN ([facility]) ferrous sulfate 324 mg (65 mg iron) tablet,delayed release [id number] completed ferrous sulfate 324 MG Delayed R elease Oral Tablet [facility] ([facility]) quetiapine 100 MG Oral Tablet quetiapine 100 mg tablet queti apine 100 mg tablet completed quetiapine 100 MG Oral Tablet [facility] ([facility]) Bacitracin 0.5 UNT/MG Topical Ointment b acitracin 500 unit/gram topical ointment bacitracin 500 unit/gram topical ointment completed bacitracin 0.5 UNT/MG Topical Ointment [facility] ([facility]) Lidocaine 40 MG/ML Topical Cream lidocaine 4 % topical cream lidocaine 4 % topical cream completed lidocain e 40 MG/ML Topical Cream [facility] ([facility]) topiramate 50 MG Oral Tablet topiramate 50 mg tablet topiramate 50 mg tablet completed topiramate 50 MG Oral Tablet [facility] ([facility]) Metronidazole 500 MG Oral Tablet metronidazole 500 mg tablet metronidazole 500 mg tablet completed metronidazol e 500 MG Oral Tablet [place] ([facility]) Magnesium Oxide 400 MG Oral Tablet magne sium oxide 400 mg (241.3 mg magnesium) tablet magnesium oxide 400 mg (241.3 mg magnesium) tablet completed magnesium oxide 400 MG Oral Tablet ATHEN A ([facility]) Ascorbic Acid 500 MG Oral Tablet Vitamin C 500 mg tabl et Vitamin C 500 mg tablet completed ascorbic acid 50 0 MG Oral Tablet [facility] ([facility]) Aspirin 81 MG Delayed Release Oral Tablet aspirin 81 m g tablet,delayed release aspirin 81 mg tablet,delayed release c ompleted aspirin 81 MG Delayed Release Oral Tablet [facility] ([facility]) heparin sodium, porcine 5000 UNT/ML Inje ctable Solution heparin (porcine) 5,000 unit/mL injection solution heparin (porcine) 5,000 unit/mL injection solution completed heparin sodium , porcine 5000 UNT/ML Injectable Solution JOHN ([facility]) Ibuprofen 800 MG Oral Tablet ibuprofen 800 mg tablet ibuprofen 8 00 mg tablet completed ibuprofen 800 MG Oral Tablet [facility] ([facility]) Acetaminophen 325 MG / Oxycodone Hydroch loride 5 MG Oral Tablet oxycodone- acetaminophen 5 mg-325 mg tablet oxycodone-acetaminophen 5 mg-325 mg tablet completed acetaminop hen 325 MG / oxycodone hydrochloride 5 MG Oral Tablet [facility] ([facility]) Oxycodone Hydrochloride 5 MG Oral Tablet oxycodone 5 m g tablet oxycodone 5 mg tablet completed oxycodone hydro chloride 5 MG Oral Tablet [facility] ([facility]) gabapentin 600 MG Oral Tablet gabapentin 600 mg tablet gabap entin 600 mg tablet completed gabapentin 600 MG Oral Tablet [place] ([facility]) ferrous sulfate 324 mg (65 mg iron) tablet,delayed release [id number] completed ferrous sulfate 324 MG Delayed R elease Oral Tablet [place] ([facility]) Ascorbic Acid 500 MG Oral Tablet Vitamin C 500 mg tabl et Vitamin C 500 mg tablet completed ascorbic acid 50 0 MG Oral Tablet [place] ([facility]) Amoxicillin 875 MG / Clavulanate 125 MG Oral Tablet amoxicillin 875 mg-potassium clavulanate 125 mg tablet amoxicillin 875 mg-potassium clavulanate 125 mg tablet completed amoxici llin 875 MG / clavulanate 125 MG Oral Tablet [place] ([facility]) Progesterone 200 MG Oral Capsule progesterone microniz ed 200 mg capsule progesterone micronized 200 mg capsule completed progesterone 200 MG Oral Capsule [place] ([facility]) Magnesium Oxide 400 MG Oral Tablet magne sium oxide 400 mg (241.3 mg magnesium) tablet magnesium oxide 400 mg (241.3 mg magnesium) tablet completed magnesium oxide 400 MG Oral Tablet [facility] ([facility]) Nexium 24HR 20 mg tablet,delayed release [id number] completed esomeprazole 20 MG Delayed Release Oral Tablet [Nexium] [place] ([facility]) Ergocalciferol 05381 UNT Oral Capsule Vi tamin D2 1,250 mcg (50,000 unit) capsule Vitamin D2 1,250 mcg (50,000 unit) capsule completed ergocalciferol 1.25 MG Oral Capsule [place] ([facility]) Esomeprazole 20 MG Delayed Release Oral Capsule esomeprazole magnesium 20 mg capsule,delayed release esomeprazole magnesium 20 mg capsule,delayed release completed esomeprazole 2 0 MG Delayed Release Oral Capsule [place] ([facility]) topiramate 25 MG Oral Tablet topiramate 25 mg tablet topiramate 25 mg tablet completed topiramate 25 MG Oral Tablet [place] ([facility]) Acetaminophen 325 MG Oral Tablet acetaminophen 325 mg tablet acetaminophen 325 mg tablet completed acetaminophe n 325 MG Oral Tablet [place] ([facility]) Bacitracin 0.5 UNT/MG Topical Ointment b acitracin 500 unit/gram topical ointment bacitracin 500 unit/gram topical ointment completed bacitracin 0.5 UNT/MG Topical Ointment [place] ([facility]) 0.5 ML Fondaparinux sodium 5 MG/ML Prefi lled Syringe fondaparinux 2.5 mg/0.5 mL subcutaneous solution syringe fondaparinux 2.5 mg/0.5 mL subcutaneous solution syringe completed 0.5 ML fondaparinux sodium 5 MG/ML Prefilled Syringe [place] ([facility]) Levetiracetam 1000 MG Oral Tablet levetiracetam 1,000 mg tablet 1 levetiracetam 1,000 mg tablet 1 completed leve tiracetam 1000 MG Oral Tablet [facility]) Ondansetron 8 MG Disintegrating Oral Tab let ondansetron 8 mg disintegrating tablet ondansetron 8 mg disintegrating tablet completed ondansetron 8 MG Disintegrating Oral Tablet [place] ([facility]) topiramate 25 MG Oral Tablet topiramate 25 mg tablet topiramate 25 mg tablet completed topiramate 25 MG Oral Tablet [facility]) Nexium 24HR 20 mg tablet,delayed release [id number] completed esomeprazole 20 MG Delayed Release Oral Tablet [Nexium] [facility]) Ketoconazole 20 MG/ML Topical Cream ketoconazole 2 % t opical cream ketoconazole 2 % topical cream completed keto conazole 20 MG/ML Topical Cream [facility]) Prednisone 10 MG Oral Tablet prednisone 10 mg tablet prednisone 10 mg tablet completed prednisone 10 MG Oral Tablet [facility]) gabapentin 600 MG Oral Tablet gabapentin 600 mg tablet gabap entin 600 mg tablet completed gabapentin 600 MG Oral Tablet [place] ([facility]) heparin sodium, porcine 5000 UNT/ML Inje ctable Solution heparin (porcine) 5,000 unit/mL injection solution heparin (porcine) 5,000 unit/mL injection solution completed heparin sodium , porcine 5000 UNT/ML Injectable Solution [facility]) ferrous sulfate 324 mg (65 mg iron) tablet,delayed release [id number] completed ferrous sulfate 324 MG Delayed R elease Oral Tablet [facility]) Clonazepam 0.5 MG Oral Tablet clonazepam 0.5 mg tablet clona zepam 0.5 mg tablet completed clonazepam 0.5 MG Oral Tablet [place] ([facility]) Prazosin 1 MG Oral Capsule prazosin 1 mg capsule prazosin 1 mg capsule completed prazosin 1 MG Oral Capsul e [place] ([facility]) heparin sodium, porcine 5000 UNT/ML Inje ctable Solution heparin (porcine) 5,000 unit/mL injection solution heparin (porcine) 5,000 unit/mL injection solution completed heparin sodium , porcine 5000 UNT/ML Injectable Solution [place] ([facility]) buspirone hydrochloride 5 MG Oral Tablet buspirone 5 mg tablet TAKE ONE TABLET BY MOUTH TWICE A DAY buspirone 5 mg tablet TAKE ONE TABLET BY MOUTH TWICE A DAY completed buspirone hydr ochloride 5 MG Oral Tablet [facility]) Prazosin 1 MG Oral Capsule prazosin 1 mg capsule prazosin 1 mg capsule completed prazosin 1 MG Oral Capsul e [facility]) Fluconazole 150 MG Oral Tablet fluconazole 150 mg tabl et fluconazole 150 mg tablet completed fluconazole 150 MG Oral Tablet [facility]) Esomeprazole 20 MG Delayed Release Oral Capsule esomeprazole magnesium 20 mg capsule,delayed release esomeprazole magnesium 20 mg capsule,delayed release completed esomeprazole 2 0 MG Delayed Release Oral Capsule [facility]) Cephalexin 500 MG Oral Capsule cephalexin 500 mg capsu le cephalexin 500 mg capsule completed cephalexin 500 MG Oral Capsule [place] ([facility]) rivaroxaban 15 MG Oral Tablet [Xarelto] Xarelto 15 mg tablet Take 1 tablet every day by oral route as directed. Xarelto 15 mg tablet Take 1 tablet every day by oral route as directed. 1 completed rivaroxaban 15 MG Oral Tablet [Xarelto] [facility]) Ajovy Syringe 225 mg/1.5 mL subcutaneous [id number] completed 1.5 ML fremanezumab-vfrm 150 MG/ML Prefilled Syringe [Ajovy] [facility]) tramadol hydrochloride 50 MG Oral Tablet tramadol 50 m g tablet tramadol 50 mg tablet completed tramadol hydroc hloride 50 MG Oral Tablet [facility]) Fluconazole 150 MG Oral Tablet fluconazole 150 mg tabl et fluconazole 150 mg tablet completed fluconazole 150 MG Oral Tablet [place] ([facility]) Prednisone 20 MG Oral Tablet prednisone 20 mg tablet Take 3 tablets po day 1-3, 2 tablets day 4-7, 1 tablet day 8-10 prednisone 20 mg tablet Take 3 tablets p o day 1-3, 2 tablets day 4-7, 1 tablet day 8-10 completed prednisone 20 MG Oral Tablet [place] ([facility]) Bacitracin 0.5 UNT/MG Topical Ointment b acitracin 500 unit/gram topical ointment bacitracin 500 unit/gram topical ointment completed bacitracin 0.5 UNT/MG Topical Ointment [place] ([facility]) ferrous sulfate 324 mg (65 mg iron) tablet,delayed release [id number] completed ferrous sulfate 324 MG Delayed R elease Oral Tablet [place] ([facility]) Oxycodone Hydrochloride 5 MG Oral Tablet oxycodone 5 m g tablet oxycodone 5 mg tablet completed oxycodone hydro chloride 5 MG Oral Tablet [place] ([facility]) Cephalexin 500 MG Oral Capsule cephalexin 500 mg capsu le cephalexin 500 mg capsule completed cephalexin 500 MG Oral Capsule [place] ([facility]) Nexium 24HR 20 mg tablet,delayed release [id number] completed esomeprazole 20 MG Delayed Release Oral Tablet [Nexium] [place] ([facility]) Cephalexin 500 MG Oral Capsule cephalexin 500 mg capsu le cephalexin 500 mg capsule completed cephalexin 500 MG Oral Capsule [place] ([facility]) Aspirin 81 MG Delayed Release Oral Tablet aspirin 81 m g tablet,delayed release aspirin 81 mg tablet,delayed release c ompleted aspirin 81 MG Delayed Release Oral Tablet [place] ([facility]) Ketoconazole 20 MG/ML Topical Cream ketoconazole 2 % t opical cream ketoconazole 2 % topical cream completed keto conazole 20 MG/ML Topical Cream [place] ([facility]) Ergocalciferol 77020 UNT Oral Capsule Vi tamin D2 1,250 mcg (50,000 unit) capsule Vitamin D2 1,250 mcg (50,000 unit) capsule completed ergocalciferol 1.25 MG Oral Capsule [place] ([facility]) topiramate 25 MG Oral Tablet topiramate 25 mg tablet topiramate 25 mg tablet completed topiramate 25 MG Oral Tablet [place] ([facility]) Oxycodone Hydrochloride 5 MG Oral Tablet oxycodone 5 m g tablet oxycodone 5 mg tablet completed oxycodone hydro chloride 5 MG Oral Tablet [place] ([facility]) Prazosin 1 MG Oral Capsule prazosin 1 mg capsule prazosin 1 mg capsule completed prazosin 1 MG Oral Capsul e [place] ([facility]) Aspirin 81 MG Delayed Release Oral Tablet aspirin 81 m g tablet,delayed release aspirin 81 mg tablet,delayed release c ompleted aspirin 81 MG Delayed Release Oral Tablet [place] ([facility]) Metoclopramide 10 MG Oral Tablet metoclopramide 10 mg tablet metoclopramide 10 mg tablet completed metocloprami de 10 MG Oral Tablet [place] ([facility]) Ascorbic Acid 500 MG Oral Tablet Vitamin C 500 mg tabl et Vitamin C 500 mg tablet completed ascorbic acid 50 0 MG Oral Tablet [place] ([facility]) Ondansetron 8 MG Disintegrating Oral Tab let ondansetron 8 mg disintegrating tablet ondansetron 8 mg disintegrating tablet completed ondansetron 8 MG Disintegrating Oral Tablet [place] ([facility]) 0.5 ML Fondaparinux sodium 5 MG/ML Prefi lled Syringe fondaparinux 2.5 mg/0.5 mL subcutaneous solution syringe fondaparinux 2.5 mg/0.5 mL subcutaneous solution syringe completed 0.5 ML fondaparinux sodium 5 MG/ML Prefilled Syringe [place] ([facility]) Acetaminophen 325 MG / Oxycodone Hydroch loride 5 MG Oral Tablet oxycodone- acetaminophen 5 mg-325 mg tablet oxycodone-acetaminophen 5 mg-325 mg tablet completed acetaminop hen 325 MG / oxycodone hydrochloride 5 MG Oral Tablet [place] ([facility]) Oxycodone Hydrochloride 10 MG Oral Tablet oxycodone 10 mg tablet oxycodone 10 mg tablet completed oxycodone hydr ochloride 10 MG Oral Tablet [place] ([facility]) Ibuprofen 800 MG Oral Tablet ibuprofen 800 mg tablet ibuprofen 8 00 mg tablet completed ibuprofen 800 MG Oral Tablet [place] ([facility]) Prednisone 50 MG Oral Tablet prednisone 50 mg tablet prednisone 50 mg tablet completed prednisone 50 MG Oral Tablet [place] ([facility]) Nexium 24HR 20 mg tablet,delayed release [id number] completed esomeprazole 20 MG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 Description Data Estella rce(s) Supporting Document(s) blood urea nitrogen 11 mg/dL 7-18 normal Blood Urea Nitro gen [place] ([facility]) glucose, fasting 93 mg/dL 70-100 normal Glucose, Fasting AT [facility] ([facility]) creatinine for GFR 0.64 mg/dL 0.55-1.30 normal Creatinine for GF R [place] ([facility]) glomerular filtration rate > 60.0 >60 normal Glomerula r Filtration Rate JOHN ([facility]) sodium level 141 mEq/L 136-145 normal Sodium Level JOHN ([facility]) potassium serum 3.7 mEq/L 3.5-5.1 normal Potassium Serum [place] ([facility]) chloride level 106 mEq/L 98-107 normal Chloride Level JOHN ([facility]) carbon dioxide level 29 mEq/L 21-32 normal Carbon Dioxide Level JOHN ([facility]) anion gap 6 mEq/L 8-16 Below low normal Anion Gap JOHN ( [facility]) calcium level 9.2 mg/dL 8.5-10.1 normal Calcium Level JOHN ( [facility]) ID Date Data Source [id number] 10/19/2020 09:55:00 AM EST JOHN ([facility]) Name Value Range Interpretation Code Description Data Estella rce(s) Supporting Document(s) white blood count 11.4 10 4.0-10.0 Above high normal White Blood Count JOHN ([facility]) red blood count 4.70 10 4.00-5.40 normal Red Blood Count AT[place] ([facility]) hemoglobin 11.8 g/dL 12.0-15.5 Below low normal Hemoglobin JOHN ( [facility]) mean corpuscular hemoglobin 25.1 pg 27.0-33.0 Below low nor mal Mean Corpuscular Hemoglobin JOHN ([facility]) hematocrit 38.5 % 36.0-47.0 normal Hematocrit JOHN ([facility]) mean corpuscular volume 81.9 fL 80.0-96.0 normal Mean Corpusc ular Volume JOHN ([facility]) red cell distribution width 13.7 % 11.5-14.5 normal Red Cell Distribution Width JOHN ([facility]) mean corpuscular HGB conc 30.6 g/dL 32.0-36.5 Below low tigist l Mean Corpuscular HGB Conc JOHN ([facility]) platelet count, automated 293 10 150-450 normal Platelet C ount, Automated JOHN ([facility]) nucleated red blood cell % 0.0 % 0-0 normal Nucleated Red Blood Cell % JOHN ([facility]) ID Date Data Source [id number] 10/12/2020 12:09:27 PM EST [facility] Name Value Range Interpretation Code Description Data Estella rce(s) Supporting Document(s) Progress Note [facility] XYHTWx0wRbJIYsZs10/LGXhmKPFwl6HrJAkfTId4EMdsXSOzR7ScODR0dK5fCOC2JZjIJiDpHdOdSxTb lbm [file] EeUyNeTfAZOlHWAxETB4CYE7UIGqCaCeHJ1DQb8RKqW2VBM7pRGcLd6ATIstBXNLFjMnWR0JAKg= ID Date Data Source [id number] 10/04/2020 11:52:46 AM [facility] Name Value Range Interpretation Code Description Data Estella rce(s) Supporting Document(s) Progress Note [facility] NYHMKv5nXqXLSxPt98/LLPbwYDQzo2BiOJzpZIv9ODxlSGYsA1MxKQJ0gZ4pSXR2IObIYfHhZmFhQYOf lbm [file] AgICAgICAgICAgICAgICAgICAgICAgICAgICAgICAgICAgICAgICAgICAgICAgICAgICAgICAgICAgIC AgICAgICAgICAgICAgICANCiAgICAgICAgICAgICAgICAgICAgICAgICAgICAgICAgICAgICAgICAgIC AgICAgICAgICAgICAgICAgICAgICAgICAgICAgICAg ICAgICAgICAgICAgICAgICAgICAgICAgICANCiAgICAgICAgICAgICAgICAgICAgICAgICAgICAgICAg ICAgICAgICAgICAgICAgICAgICAgICAgICAgICAgICAgICAgICAgICAgICAgICAgICAgICAgICAgICAg ICAgICAgICANCiAgICAgICAgICAgICAgICAgICAgIC AgICAgICAgICAgICAgICAgICAgICAgICAgICAgICAgICAgICAgICAgICAgICAgICAgICAgICAgICAgIC AgICAgICAgICAgICAgICAgICANCiAgICAgICAgICAgICAgICAgICAgICAgICAgICAgICAgICAgICAgIC AgICAgICAgICAgICAgICAgICAgICAgICAgICAgICAg ICAgICAgICAgICAgICAgICAgICAgICAgICAgICANCiAgICAgICAgICAgICAgICAgICAgICAgICAgICAg ICAgICAgICAgICAgICAgICAgICAgICAgICAgICAgICAgICAgICAgICAgICAgICAgICAgICAgICAgICAg ICAgICAgICAgICANCiAgICAgICAgICAgICAgICAgIC AgICAgICAgICAgICAgICAgICAgICAgICAgICAgICAgICAgICAgICAgICAgICAgICAgICAgICAgICAgIC AgICAgICAgICAgICAgICAgICAgICANCiAgICAgICAgICAgICAgICAgICAgICAgICAgICAgICAgICAgIC AgICAgICAgICAgICAgICAgICAgICAgICAgICAgICAg ICAgICAgICAgICAgICAgICAgICAgICAgICAgICAgICANCiAgICAgICAgICAgICAgICAgICAgICAgICAg ICAgICAgICAgICAgICAgICAgICAgICAgICAgICAgICAgICAgICAgICAgICAgICAgICAgICAgICAgICAg ICAgICAgICAgICAgICANCiAgICAgICAgICAgICAgIC AgICAgICAgICAgICAgICAgICAgICAgICAgICAgICAgICAgICAgICAgICAgICAgICAgICAgICAgICAgIC AgICAgICAgICAgICAgICAgICAgICAgICANCjw/uFCjJ7wzbNKqqgW7C1dkGh1VJr6XXT0ah7HmPKGuHO mnxsGcBfrHFkCzQVDqZopUMtb7YJlaXP1SgCLoH8Lq V0DuMOowAU6JIOImFCCsbNIjEHPlKUOkEgC9IBFtXSviWX6JxRZwVUapCYKlPWMkViSyJJIcGIZsHDCx IN0XBTCxI076ffXgKc5TCl0SEmNcNP1ftr3GKcAaNICiTzgKQyz7URkoSS1AkUGdwUKjQZLtZETEQsNt W7day2FcLmVxRDEDXEbaZE3Hp6PxeBXcPZv+Pg0KZW 2gw3YrESveQOPzHJ9xhz9UZHtUBkDlD6DxzTzlKQUcm4vfFDLqUT7maTZqKFD1MRgjnrs9hFELZQ7cXX SCMSHwjYIcIY8hZs9tJQSaYQCwVeIlNDUPKL1YTOBmNKMluHSrSLVcVDBYCI3NINxgHGS9UAVqyeBceS QrYLkeIB8EDRIadvUrTrEsXJEHVXp+Uu5PDN7bq7Yh FCieSBPjRG9lpl4JKQfECvNhO8R1qCGsR3G5BSsdVn8LBOSnQRVvCoHtZGXXYEraBC3BEV2islA7PW1R xDEiXOHfIXYrtKHmIPo5X43plVEwXDxbCG8NFOO+Penny+Op0ANEAhHXOcPOLhFpNiZRWNOeYqK7VjF8ZF v7UtK4QcUB02pNzugyWzHNfmLG8XEV5cSNPxDDDLEB 8CyLGkxU1fmbFuNlBgGZWRQjNxY55xbZSdXBPpTQLgETFbOh4RNSSkK5XpdmKcqElvgpHeOCTmFCMSPG 4UELzeybGqbXCyrMxyNJ93tJkwWO8YGa1IEeDfQN8kgm5ChLPsTx8ZWGEfSx4LOZRfHDLcFLEeDML6IX VxVaXcQMguTIWoYDBqMOP8SLEiVXXnGP5PJyKeGTYs MtC6FrVfEYBmGBAwpa3WHYApRKWsDaL0JPImAMLaTWLeWQdsVPSnURLyYIO9GHJzPGXkMA4AYyAbMKSw UMZ6ZrHmVAEpGEMttl4VSMBePHKqTJWmWGBwSYQtGMTyHXltSRIiBXW5EjF8IBIlRHGlFP9CHkEnTIQy ZLp8VuRhKOXhIHKgtn0YRIRrAHFkVRQ5DsCxBJKuGQ AcMGfzDHGqDSGgLqWkDYYvFKQvUZ9SSaTtZESuPDV0LeAnGCEyCNZpgh7HWFOsZFDjQLtiCfXeNLRwAK JgGYwjIGZpTUBaVWFfMLHfQDOyMI0QInUqNMJpOYNtABkaCUBhTISojy1DXQIuAZDtGoV5EHDzWSPzDR YsBWrkPHDdOCUvGNR0GEUzAVQaAB1KGwZdZOHjOzR6 WjftIJPcMJAqtb4NMYQxPLWgBLDyQMClCHQaUUDbLMiwOOQtXSD7OYLkFZLtQKTuXK5RKuNhVDQkJqV9 CoFyKJQwVXTbqu1EVJIhSGAhLLadWYIoJNCgQPBnRDgkARXsEKZ9AmXxVVLeVJAeLV0QTzKsPMBpMfl4 NeQoTVIuSZKzjf2FGPQnJQEpMvamNRSwTRAdAMEpBY zkDVRzFPG3RCc1TINjZIJqOI2GYeQhGKsmUUTPZmb6FSzpL5z4TJNmSo7LR3Rav5VbWvNqBCNABUefHW 6qamNnERPbKs5PY3uCDfftXjX1NMVxFkr6LoRaBlO3WYKxMWWbZaOrVNOgHYUeGX6rZMJnBuD6ExIiOG q4MSSjHkSbYZZyCLL7TNG2KWP3ZGOhQcLtMW3ANd5VHaE5ALK0yDVuKu3RSobfOsSZVpZxOK8VLRk= ID Date Data Source [id number] 09/25/2020 12:00:00 AM EST [facility] Name Value Range Interpretation Code Description Data Estella rce(s) Supporting Document(s) SARS coronavirus 2 [facility] This lab was ordered by 8-1400 and repor jina by [facility]. ID Date Data Source [id number] 09/23/2020 12:00:00 AM EST [facility] Name Value Range Interpretation Code Description Data Estella rce(s) Supporting Document(s) SARS coronavirus 2 RNA panel N [facility] This lab was ordered by [facility] VIVIAN E [facility] ([facility]) and reported by [facility]. ID Date Data Source [id number] 09/17/2020 03:06:00 AM EST [place] ([facility]) Name Value Range Interpretation Code Description Data Estella rce(s) Supporting Document(s) appearance, urine rfx clear clear normal Appearance, Ur ine Rfx [place] ([facility]) color, urine rfx straw yellow normal Color, Urine Rfx AT [facility] ([facility]) pH,urine rfx 7.0 units 5.0-9.0 normal pH,urine Rfx JOHN ([facility]) specific gravity ur auto rfx 1.002-1.035 normal Specif ic [place] Ur Auto Rfx [place] ([facility]) protein, urine auto rfx negative negative normal Protein, Uri ne Auto Rfx [place] ([facility]) urobilinogen, urine auto rfx 0.2 mg/dL 0.0-2.0 normal Urobilinogen, Urine Auto Rfx [place] ([facility]) ketone, urine auto rfx negative negative normal Ketone, Urine Auto Rfx [place] ([facility]) bilirubin, urine auto rfx negative negative normal Bilirubin, Urine Auto Rfx [place] ([facility]) glucose, urine (UA) auto rfx negative negative normal Glucose, Urine (UA) Auto Rfx [place] ([facility]) leukocyte esterase ur auto rfx negative negative normal Leukocyte Esterase Ur Auto Rfx JOHN ([facility]) nitrite, urine auto rfx negative negative normal Nitrite, Uri ne Auto Rfx [place] ([facility]) blood, urine blood rfx negative negative normal Blood, Urine Blood Rfx [place] ([facility]) WBC, urine auto rfx 1 /hpf 0-3 normal WBC, Urine Auto Rfx [place] ([facility]) bacteria, urine auto rfx negative negative normal Bacteria, U rine Auto Rfx [place] ([facility]) RBC, urine auto rfx 1 /hpf 0-3 normal RBC, Urine Auto Rfx [place] ([facility]) hyaline cast, urine auto rfx 0 /lpf 0-1 normal Hyaline Cast, Urine Auto Rfx [place] ([facility]) squam epithelial cell ur aurfx 2 /hpf 0-6 normal Squam Epithelial Cell Ur Aurfx [place] ([facility]) ID Date Data Source [id number] 09/17/2020 03:06:00 AM EST [place] ([facility]) Name Value Range Interpretation Code Description Data Estella rce(s) Supporting Document(s) appearance, urine rfx clear clear normal Appearance, Ur ine Rfx [place] ([facility]) color, urine rfx straw yellow normal Color, Urine Rfx AT [place] ([facility]) pH,urine rfx 7.0 units 5.0-9.0 normal pH,urine Rfx [place] [facility] protein, urine auto rfx negative negative normal Protein, Uri ne Auto Rfx [place] ([facility]) specific gravity ur auto rfx 1.002-1.035 normal Specif ic [place] Ur Auto Rfx [place] ([facility]) ketone, urine auto rfx negative negative normal Ketone, Urine Auto Rfx [place] ([facility]) urobilinogen, urine auto rfx 0.2 mg/dL 0.0-2.0 normal Urobilinogen, Urine Auto Rfx [place] ([facility]) glucose, urine (UA) auto rfx negative negative normal Glucose, Urine (UA) Auto Rfx JOHN ([facility]) bilirubin, urine auto rfx negative negative normal Bilirubin, Urine Auto Rfx JOHN ([facility]) nitrite, urine auto rfx negative negative normal Nitrite, Uri ne Auto Rfx [place] ([facility]) blood, urine blood rfx negative negative normal Blood, Urine Blood Rfx [place] ([facility]) leukocyte esterase ur auto rfx negative negative normal Leukocyte Esterase Ur Auto Rfx JOHN ([facility]) WBC, urine auto rfx 1 /hpf 0-3 normal WBC, Urine Auto Rfx [place] ([facility]) RBC, urine auto rfx 1 /hpf 0-3 normal RBC, Urine Auto Rfx [place] ([facility]) bacteria, urine auto rfx negative negative normal Bacteria, U rine Auto Rfx [place] ([facility]) squam epithelial cell ur aurfx 2 /hpf 0-6 normal Squam Epithelial Cell Ur Aurfx [place] ([facility]) hyaline cast, urine auto rfx 0 /lpf 0-1 normal Hyaline Cast, Urine Auto Rfx [place] ([facility]) ID Date Data Source [id number] 09/17/2020 03:06:00 AM EST [place] ([facility]) Name Value Range Interpretation Code Description Data Estella rce(s) Supporting Document(s) appearance, urine rfx clear clear normal Appearance, Ur ine Rfx [place] ([facility]) pH,urine rfx 7.0 units 5.0-9.0 normal pH,urine Rfx JONH ([facility]) color, urine rfx straw yellow normal Color, Urine Rfx AT [place] ([facility]) protein, urine auto rfx negative negative normal Protein, Uri ne Auto Rfx [place] ([facility]) specific gravity ur auto rfx 1.002-1.035 normal Specif ic [place] Ur Auto Rfx [place] ([facility]) ketone, urine auto rfx negative negative normal Ketone, Urine Auto Rfx [place] ([facility]) glucose, urine (UA) auto rfx negative negative normal Glucose, Urine (UA) Auto Rfx JOHN ([facility]) leukocyte esterase ur auto rfx negative negative normal Leukocyte Esterase Ur Auto Rfx [place] ([facility]) urobilinogen, urine auto rfx 0.2 mg/dL 0.0-2.0 normal Urobilinogen, Urine Auto Rfx [place] ([facility]) bilirubin, urine auto rfx negative negative normal Bilirubin, Urine Auto Rfx [place] ([facility]) nitrite, urine auto rfx negative negative normal Nitrite, Uri ne Auto Rfx [place] ([facility]) blood, urine blood rfx negative negative normal Blood, Urine Blood Rfx [place] ([facility]) RBC, urine auto rfx 1 /hpf 0-3 normal RBC, Urine Auto Rfx [place] ([facility]) WBC, urine auto rfx 1 /hpf 0-3 normal WBC, Urine Auto Rfx [place] ([facility]) squam epithelial cell ur aurfx 2 /hpf 0-6 normal Squam Epithelial Cell Ur Aurfx [place] ([facility]) bacteria, urine auto rfx negative negative normal Bacteria, U rine Auto Rfx [place] ([facility]) hyaline cast, urine auto rfx 0 /lpf 0-1 normal Hyaline Cast, Urine Auto Rfx [place] ([facility]) ID Date Data Source [id number] 09/17/2020 03:06:00 AM EST [place] ([facility]) Name Value Range Interpretation Code Description Data Estella rce(s) Supporting Document(s) pH,urine rfx 7.0 units 5.0-9.0 normal pH,urine Rfx [place] ([facility]) appearance, urine rfx clear clear normal Appearance, Ur ine Rfx [place] ([facility]) color, urine rfx straw yellow normal Color, Urine Rfx [place] ([facility]) specific gravity ur auto rfx 1.002-1.035 normal Specif ic [place] Ur Auto Rfx [place] ([facility]) protein, urine auto rfx negative negative normal Protein, Uri ne Auto Rfx [place] ([facility]) urobilinogen, urine auto rfx 0.2 mg/dL 0.0-2.0 normal Urobilinogen, Urine Auto Rfx JOHN ([facility]) ketone, urine auto rfx negative negative normal Ketone, Urine Auto Rfx JOHN ([facility]) glucose, urine (UA) auto rfx negative negative normal Glucose, Urine (UA) Auto Rfx JOHN ([facility]) leukocyte esterase ur auto rfx negative negative normal Leukocyte Esterase Ur Auto Rfx JOHN ([facility]) bilirubin, urine auto rfx negative negative normal Bilirubin, Urine Auto Rfx JOHN ([facility]) blood, urine blood rfx negative negative normal Blood, Urine Blood Rfx [place] ([facility]) nitrite, urine auto rfx negative negative normal Nitrite, Uri ne Auto Rfx [place] ([facility]) bacteria, urine auto rfx negative negative normal Bacteria, U rine Auto Rfx [place] ([facility]) RBC, urine auto rfx 1 /hpf 0-3 normal RBC, Urine Auto Rfx JOHN ([facility]) WBC, urine auto rfx 1 /hpf 0-3 normal WBC, Urine Auto Rfx JOHN ([facility]) hyaline cast, urine auto rfx 0 /lpf 0-1 normal Hyaline Cast, Urine Auto Rfx JOHN ([facility]) squam epithelial cell ur aurfx 2 /hpf 0-6 normal Squam Epithelial Cell Ur Aurfx [place] ([facility]) ID Date Data Source [id number] 09/17/2020 01:48:00 AM EST [place] ([facility]) Name Value Range Interpretation Code Description Data Estella rce(s) Supporting Document(s) bedside glucose 137 mg/dL 70-105 Above high normal Bedside Gluco se [place] ([facility]) ID Date Data Source [id number] 09/17/2020 01:48:00 AM EST [facility]) Name Value Range Interpretation Code Description Data Estella rce(s) Supporting Document(s) bedside glucose 137 mg/dL 70-105 Above high [facility] Date Data Source [id number] 09/17/2020 01:48:00 AM EST JOHN ([facility]) Name Value Range Interpretation Code Description Data Estella rce(s) Supporting Document(s) bedside glucose 137 mg/dL 70-105 Above high normal Bedside Gluco se JOHN ([facility]) ID Date Data Source [id number] 09/17/2020 01:48:00 AM EST JOHN [facility]) Name Value Range Interpretation Code Description Data Estella rce(s) Supporting Document(s) bedside glucose 137 mg/dL 70-105 Above high normal [facility] ID Date Data Source [id number] 09/17/2020 01:39:00 AM EST JOHN [facility]) Name Value Range Interpretation Code Description Data Estella rce(s) Supporting Document(s) levetiracetam (keppra) <1.0 10.0-40.0 Below low normal Levetir acetam (Keppra) JOHN ([facility]) ID Date Data Source [id number] 09/17/2020 01:39:00 AM [facility] Name Value Range Interpretation Code Description Data Estella rce(s) Supporting Document(s) HCG, serum qualitative negative negative normal HCG, Serum Qu alitative [facility]) ID Date Data Source [id number] 09/17/2020 01:39:00 AM [facility] Name Value Range Interpretation Code Description Data Estella rce(s) Supporting Document(s) thyroid stimulating hormone 1.520 uIU/mL 0.358-3.740 normal Thyroid Stimulating Hormone [facility]) ID Date Data Source [id number] 09/17/2020 01:39:00 AM EST JOHN ([facility]) Name Value Range Interpretation Code Description Data Estella rce(s) Supporting Document(s) glucose, fasting 133 mg/dL 70-100 Above high normal Glucose, Fas ting JOHN ([facility]) blood urea nitrogen 15 mg/dL 7-18 normal Blood Urea Nitro gen JOHN ([facility]) glomerular filtration rate > 60.0 >60 normal Glomerula r Filtration Rate [place] ([facility]) creatinine for GFR 0.73 mg/dL 0.55-1.30 normal Creatinine for GF R JOHN ([facility]) potassium serum 3.8 mEq/L 3.5-5.1 normal Potassium Serum [place] ([facility]) sodium level 137 mEq/L 136-145 normal Sodium Level [place] ([facility]) chloride level 102 mEq/L 98-107 normal Chloride Level JOHN ([facility]) calcium level 9.6 mg/dL 8.5-10.1 normal Calcium Level [place] ( [facility]) carbon dioxide level 27 mEq/L 21-32 normal Carbon Dioxide Level JOHN ([facility]) anion gap 8 mEq/L 8-16 normal Anion Gap [place] ([facility]) ID Date Data Source [id number] 09/17/2020 01:39:00 AM EST JOHN ([facility]) Name Value Range Interpretation Code Description Data Estella rce(s) Supporting Document(s) white blood count 14.6 10 4.0-10.0 Above high normal White Blood Count JOHN ([facility]) red blood count 4.59 10 4.00-5.40 normal Red Blood Count [place] ([facility]) hemoglobin 11.4 g/dL 12.0-15.5 Below low normal Hemoglobin JOHN ( [facility]) mean corpuscular volume 82.4 fL 80.0-96.0 normal Mean Corpusc ular Volume JOHN ([facility]) hematocrit 37.8 % 36.0-47.0 normal Hematocrit [place] ([facility]) mean corpuscular hemoglobin 24.8 pg 27.0-33.0 Below low nor mal Mean Corpuscular Hemoglobin JOHN ([facility]) red cell distribution width 14.4 % 11.5-14.5 normal Red Cell Distribution Width [place] ([facility]) mean corpuscular HGB conc 30.2 g/dL 32.0-36.5 Below low tigist l Mean Corpuscular HGB Conc JOHN ([facility]) platelet count, automated 368 10 150-450 normal Platelet C ount, Automated JOHN ([facility]) lymph % 11.4 % 24.0-44.0 Below low normal Lymph % JOHN ( [facility]) neutrophils % 85.4 % 36.0-66.0 Above high normal Neutrophils % A [facility] ([facility]) baso % 0.4 % 0.0-1.0 normal Baso % JOHN ([facility]) mono % 1.3 % 0.0-5.0 normal [place] % JOHN ([facility]) eos % 0.7 % 0.0-3.0 normal Eos % JOHN ([facility]) nucleated red blood cell % 0.0 % 0-0 normal Nucleated Red Blood Cell % JOHN ([facility]) immature granulocyte % 0.8 % 0-3.0 normal Immature Gran ulocyte % JOHN ([facility]) neutrophils # 12.5 10 1.5-8.5 Above high normal Neutrophils # A THENA ([facility]) mono # 0.2 10 0.0-0.8 normal [place] # JOHN ([facility]) eos # 0.1 10 0.0-0.5 normal Eos # JOHN ([facility]) lymph # 1.7 10 1.5-5.0 normal Lymph # JOHN ([facility]) baso # 0.1 10 0.0-0.2 normal Baso # JOHN ([facility]) ID Date Data Source [id number] 09/17/2020 01:39:00 AM EST JOHN ([facility]) Name Value Range Interpretation Code Description Data Estella rce(s) Supporting Document(s) levetiracetam (keppra) <1.0 10.0-40.0 Below low normal Levetir acetam (Keppra) JOHN ([facility]) ID Date Data Source [id number] 09/17/2020 01:39:00 AM EST JOHN ([facility]) Name Value Range Interpretation Code Description Data Estella rce(s) Supporting Document(s) HCG, serum qualitative negative negative normal HCG, Serum Qu alitative [place] ([facility]) ID Date Data Source [id number] 09/17/2020 01:39:00 AM EST JOHN ([facility]) Name Value Range Interpretation Code Description Data Estella rce(s) Supporting Document(s) thyroid stimulating hormone 1.520 uIU/mL 0.358-3.740 normal Thyroid Stimulating Hormone [place] ([facility]) ID Date Data Source [id number] 09/17/2020 01:39:00 AM EST JOHN ([facility]) Name Value Range Interpretation Code Description Data Estella rce(s) Supporting Document(s) glucose, fasting 133 mg/dL 70-100 Above high normal Glucose, Fas ting [place] ([facility]) blood urea nitrogen 15 mg/dL 7-18 normal Blood Urea Nitro gen JOHN ([facility]) glomerular filtration rate > 60.0 >60 normal Glomerula r Filtration Rate [place] ([facility]) creatinine for GFR 0.73 mg/dL 0.55-1.30 normal Creatinine for GF R [place] ([facility]) sodium level 137 mEq/L 136-145 normal Sodium Level JOHN ([facility]) potassium serum 3.8 mEq/L 3.5-5.1 normal Potassium Serum ATH NA ([facility]) chloride level 102 mEq/L 98-107 normal Chloride Level [place] ([facility]) carbon dioxide level 27 mEq/L 21-32 normal Carbon Dioxide Level JOHN ([facility]) calcium level 9.6 mg/dL 8.5-10.1 normal Calcium Level JOHN ( [facility]) anion gap 8 mEq/L 8-16 normal Anion Gap JOHN ([facility]) ID Date Data Source [id number] 09/17/2020 01:39:00 AM EST JOHN ([facility]) Name Value Range Interpretation Code Description Data Estella rce(s) Supporting Document(s) white blood count 14.6 10 4.0-10.0 Above high normal White Blood Count JOHN ([facility]) hemoglobin 11.4 g/dL 12.0-15.5 Below low normal Hemoglobin JOHN ( [facility]) red blood count 4.59 10 4.00-5.40 normal Red Blood Count [place] ([facility]) hematocrit 37.8 % 36.0-47.0 normal Hematocrit JOHN ([facility]) mean corpuscular hemoglobin 24.8 pg 27.0-33.0 Below low nor mal Mean Corpuscular Hemoglobin JOHN ([facility]) mean corpuscular volume 82.4 fL 80.0-96.0 normal Mean Corpusc ular Volume [place] ([facility]) mean corpuscular HGB conc 30.2 g/dL 32.0-36.5 Below low tigist l Mean Corpuscular HGB Conc JOHN ([facility]) red cell distribution width 14.4 % 11.5-14.5 normal Red Cell Distribution Width [place] ([facility]) neutrophils % 85.4 % 36.0-66.0 Above high normal Neutrophils % A [place] ([facility]) platelet count, automated 368 10 150-450 normal Platelet C ount, Automated [place] ([facility]) lymph % 11.4 % 24.0-44.0 Below low normal Lymph % JOHN ( [facility]) eos % 0.7 % 0.0-3.0 normal Eos % JOHN ([facility]) mono % 1.3 % 0.0-5.0 normal [place] % JOHN ([facility]) immature granulocyte % 0.8 % 0-3.0 normal Immature Gran ulocyte % JOHN ([facility]) baso % 0.4 % 0.0-1.0 normal Baso % JOHN ([facility]) neutrophils # 12.5 10 1.5-8.5 Above high normal Neutrophils # A THE[place] ([facility]) nucleated red blood cell % 0.0 % 0-0 normal Nucleated Red Blood Cell % JOHN ([facility]) lymph # 1.7 10 1.5-5.0 normal Lymph # JOHN ([facility]) eos # 0.1 10 0.0-0.5 normal Eos # JOHN ([facility]) mono # 0.2 10 0.0-0.8 normal [place] # JOHN ([facility]) baso # 0.1 10 0.0-0.2 normal Baso # JOHN ([facility]) ID Date Data Source [id number] 09/17/2020 01:39:00 AM EST JOHN ([facility]) Name Value Range Interpretation Code Description Data Estella rce(s) Supporting Document(s) levetiracetam (keppra) <1.0 10.0-40.0 Below low normal Levetir acetam (Keppra) JOHN ([facility]) ID Date Data Source [id number] 09/17/2020 01:39:00 AM EST JOHN ([facility]) Name Value Range Interpretation Code Description Data Estella rce(s) Supporting Document(s) HCG, serum qualitative negative negative normal HCG, Serum Qu alitative [place] ([facility]) ID Date Data Source [id number] 09/17/2020 01:39:00 AM EST JOHN ([facility]) Name Value Range Interpretation Code Description Data Estella rce(s) Supporting Document(s) thyroid stimulating hormone 1.520 uIU/mL 0.358-3.740 normal Thyroid Stimulating Hormone JOHN ([facility]) ID Date Data Source [id number] 09/17/2020 01:39:00 AM PAULINE LOPEZ ([facility]) Name Value Range Interpretation Code Description Data Estella rce(s) Supporting Document(s) glucose, fasting 133 mg/dL 70-100 Above high normal Glucose, Fas ting JOHN ([facility]) blood urea nitrogen 15 mg/dL 7-18 normal Blood Urea Nitro gen JOHN ([facility]) creatinine for GFR 0.73 mg/dL 0.55-1.30 normal Creatinine for GF R JOHN ([facility]) potassium serum 3.8 mEq/L 3.5-5.1 normal Potassium Serum [place] ([facility]) sodium level 137 mEq/L 136-145 normal Sodium Level JOHN ([facility]) chloride level 102 mEq/L 98-107 normal Chloride Level JOHN ([facility]) glomerular filtration rate > 60.0 >60 normal Glomerula r Filtration Rate JOHN ([facility]) calcium level 9.6 mg/dL 8.5-10.1 normal Calcium Level [place] ( [facility]) carbon dioxide level 27 mEq/L 21-32 normal Carbon Dioxide Level [place] ([facility]) anion gap 8 mEq/L 8-16 normal Anion Gap [place] ([facility]) ID Date Data Source [id number] 09/17/2020 01:39:00 AM PAULINE LOPEZ ([facility]) Name Value Range Interpretation Code Description Data Estella rce(s) Supporting Document(s) white blood count 14.6 10 4.0-10.0 Above high normal White Blood Count JOHN ([facility]) red blood count 4.59 10 4.00-5.40 normal [facility] hemoglobin 11.4 g/dL 12.0-15.5 Below low normal Hemoglobin JOHN ( [facility]) mean corpuscular volume 82.4 fL 80.0-96.0 normal Mean Corpusc ular Volume JOHN ([facility]) hematocrit 37.8 % 36.0-47.0 normal Hematocrit JOHN ([facility]) mean corpuscular HGB conc 30.2 g/dL 32.0-36.5 Below low tigist l Mean Corpuscular HGB Conc JOHN ([facility]) mean corpuscular hemoglobin 24.8 pg 27.0-33.0 Below low nor mal Mean Corpuscular Hemoglobin JOHN ([facility]) red cell distribution width 14.4 % 11.5-14.5 normal Red Cell Distribution Width JOHN ([facility]) platelet count, automated 368 10 150-450 normal Platelet C ount, Automated JOHN ([facility]) lymph % 11.4 % 24.0-44.0 Below low normal Lymph % JOHN ( [facility]) neutrophils % 85.4 % 36.0-66.0 Above high normal Neutrophils % A [place] ([facility]) baso % 0.4 % 0.0-1.0 normal Baso % JOHN ([facility]) mono % 1.3 % 0.0-5.0 normal [place] % JOHN ([facility]) eos % 0.7 % 0.0-3.0 normal Eos % JOHN ([facility]) immature granulocyte % 0.8 % 0-3.0 normal Immature Gran ulocyte % JOHN ([facility]) nucleated red blood cell % 0.0 % 0-0 normal Nucleated Red Blood Cell % JOHN ([facility]) neutrophils # 12.5 10 1.5-8.5 Above high normal Neutrophils # A THE[place] ([facility]) mono # 0.2 10 0.0-0.8 normal [place] # JOHN ([facility]) lymph # 1.7 10 1.5-5.0 normal Lymph # JOHN ([facility]) eos # 0.1 10 0.0-0.5 normal Eos # JOHN ([facility]) baso # 0.1 10 0.0-0.2 normal Baso # JOHN ([facility]) ID Date Data Source [id number] 09/17/2020 01:39:00 AM EST JOHN ([facility]) Name Value Range Interpretation Code Description Data Estella rce(s) Supporting Document(s) levetiracetam (keppra) <1.0 10.0-40.0 Below low normal Levetir acetam (Keppra) JOHN ([facility]) ID Date Data Source [id number] 09/17/2020 01:39:00 AM EST JOHN ([facility]) Name Value Range Interpretation Code Description Data Estella rce(s) Supporting Document(s) HCG, serum qualitative negative negative normal HCG, Serum Qu alitative JOHN ([facility]) ID Date Data Source [id number] 09/17/2020 01:39:00 AM EST JOHN ([facility]) Name Value Range Interpretation Code Description Data Estella rce(s) Supporting Document(s) thyroid stimulating hormone 1.520 uIU/mL 0.358-3.740 normal Thyroid Stimulating Hormone [place] ([facility]) ID Date Data Source [id number] 09/17/2020 01:39:00 AM EST JOHN ([facility]) Name Value Range Interpretation Code Description Data Estella rce(s) Supporting Document(s) glucose, fasting 133 mg/dL 70-100 Above high normal Glucose, Fas ting JOHN ([facility]) blood urea nitrogen 15 mg/dL 7-18 normal Blood Urea Nitro gen JOHN ([facility]) creatinine for GFR 0.73 mg/dL 0.55-1.30 normal Creatinine for GF R JOHN ([facility]) sodium level 137 mEq/L 136-145 normal Sodium Level JOHN ([facility]) potassium serum 3.8 mEq/L 3.5-5.1 normal Potassium Serum ATHE NA ([facility]) glomerular filtration rate > 60.0 >60 normal Glomerula r Filtration Rate JOHN ([facility]) carbon dioxide level 27 mEq/L 21-32 normal Carbon Dioxide Level JOHN ([facility]) anion gap 8 mEq/L 8-16 normal Anion Gap JOHN ([facility]) chloride level 102 mEq/L 98-107 normal Chloride Level JOHN ([facility]) calcium level 9.6 mg/dL 8.5-10.1 normal Calcium Level JOHN ( [facility]) ID Date Data Source [id number] 09/17/2020 01:39:00 AM EST JOHN ([facility]) Name Value Range Interpretation Code Description Data Estella rce(s) Supporting Document(s) white blood count 14.6 10 4.0-10.0 Above high normal White Blood Count [place] ([facility]) red blood count 4.59 10 4.00-5.40 normal [facility] hemoglobin 11.4 g/dL 12.0-15.5 Below low normal Hemoglobin JOHN ( [facility]) hematocrit 37.8 % 36.0-47.0 normal Hematocrit JOHN ([facility]) mean corpuscular volume 82.4 fL 80.0-96.0 normal Mean Corpusc ular Volume JOHN ([facility]) mean corpuscular HGB conc 30.2 g/dL 32.0-36.5 Below low tigist l Mean Corpuscular HGB Conc JOHN ([facility]) mean corpuscular hemoglobin 24.8 pg 27.0-33.0 Below low nor mal Mean Corpuscular Hemoglobin JOHN ([facility]) platelet count, automated 368 10 150-450 normal Platelet C ount, Automated JOHN ([facility]) red cell distribution width 14.4 % 11.5-14.5 normal Red Cell Distribution Width JOHN ([facility]) neutrophils % 85.4 % 36.0-66.0 Above high normal Neutrophils % A THENA ([facility]) mono % 1.3 % 0.0-5.0 normal [place] % JOHN ([facility]) lymph % 11.4 % 24.0-44.0 Below low normal Lymph % JOHN ( [facility]) baso % 0.4 % 0.0-1.0 normal Baso % JOHN ([facility]) eos % 0.7 % 0.0-3.0 normal Eos % JOHN ([facility]) immature granulocyte % 0.8 % 0-3.0 normal Immature Gran ulocyte % JOHN ([facility]) nucleated red blood cell % 0.0 % 0-0 normal Nucleated Red Blood Cell % JOHN ([facility]) neutrophils # 12.5 10 1.5-8.5 Above high normal Neutrophils # A THENA ([facility]) lymph # 1.7 10 1.5-5.0 normal Lymph # JOHN ([facility]) baso # 0.1 10 0.0-0.2 normal Baso # JOHN ([facility]) eos # 0.1 10 0.0-0.5 normal Eos # JOHN ([facility]) mono # 0.2 10 0.0-0.8 normal [place] # JOHN ([facility]) ID Date Data Source [id number] 09/13/2020 11:24:41 AM EST [facility] Hospital Name Value Range Interpretation Code Description Data Estella rce(s) Supporting Document(s) Progress Note [facility] [id number] [id number] [file] [id number] ID Date Data Source [id number] 09/22/2020 08:39:29 AM EST [facility], PCName: Winsome AkersDOB: 1990Provider: HusamangellaIrmaDENISSE: [...] 9:52:35 AM;Ordered; For:Right ankle pain; Ordered By:Irma Antoine;[facility] Supply Size 1 (S,M,L) : 02: Small [...] document was dictated and electronically signed using [employer] software. A reasonable attempt at proof reading [...] rce(s) Supporting Document(s) ID Date Data Source [id number] 09/12/2020 12:38:00 PM EST [place] ([facility]) Name Value Range Interpretation Code Description Data Estella rce(s) Supporting Document(s) C reactive protein quantitativ 10.80 mg/dL 0.00-0.30 Above high normal C Reactive Protein Quantitativ [place] ([facility]) ID Date Data Source [id number] 09/12/2020 12:38:00 PM EST JOHN ([facility]) Name Value Range Interpretation Code Description Data Estella rce(s) Supporting Document(s) glucose, fasting 98 mg/dL 70-100 normal Glucose, Fasting AT [facility] ([facility]) blood urea nitrogen 8 mg/dL 7-18 normal Blood Urea Nitro gen [place] ([facility]) potassium serum 3.9 mEq/L 3.5-5.1 normal Potassium Serum ATHE NA ([facility]) sodium level 141 mEq/L 136-145 normal Sodium Level JOHN ([facility]) glomerular filtration rate > 60.0 >60 normal Glomerula r Filtration Rate JOHN ([facility]) creatinine for GFR 0.61 mg/dL 0.55-1.30 normal Creatinine for GF R JOHN ([facility]) chloride level 109 mEq/L 98-107 Above high normal Chloride Level JOHN ([facility]) AST/SGOT 14 U/L 7-37 normal AST/SGOT JOHN ([facility]) calcium level 9.3 mg/dL 8.5-10.1 normal Calcium Level JOHN ( [facility]) carbon dioxide level 25 mEq/L 21-32 normal Carbon Dioxide Level JOHN ([facility]) anion gap 7 mEq/L 8-16 Below low normal Anion Gap JOHN ( [facility]) ALT/SGPT 18 U/L 12-78 normal ALT/SGPT JOHN ([facility]) bilirubin,total 0.4 mg/dL 0.2-1.0 normal Bilirubin,total ATHE ([facility]) albumin 3.6 gm/dL 3.2-5.2 normal Albumin JOHN ([facility]) alkaline phosphatase 120 U/L 45-117 Above high normal Alkaline Phosphatase JOHN ([facility]) total protein 7.1 gm/dL 6.4-8.2 normal Total Protein JOHN ( [facility]) albumin/globulin ratio 1.2-2.2 Below low normal Albumin /globulin Ratio JOHN ([facility]) ID Date Data Source [id number] 09/12/2020 12:38:00 PM EST JOHN ([facility]) Name Value Range Interpretation Code Description Data Estella rce(s) Supporting Document(s) erythrocyte sedimentation rate 60 mm/HR 0-20 Above high normal Erythrocyte Sedimentation Rate JOHN ([facility]) ID Date Data Source [id number] 09/12/2020 12:38:00 PM EST JOHN ([facility]) Name Value Range Interpretation Code Description Data Estella rce(s) Supporting Document(s) white blood count 12.8 10 4.0-10.0 Above high normal White Blood Count JOHN ([facility]) mean corpuscular volume 82.2 fL 80.0-96.0 normal Mean Corpusc ular Volume JOHN ([facility]) hematocrit 37.5 % 36.0-47.0 normal Hematocrit JOHN ([facility]) hemoglobin 11.4 g/dL 12.0-15.5 Below low normal Hemoglobin JOHN ( [facility]) red blood count 4.56 10 4.00-5.40 normal Red Blood Count ATHE NA ([facility]) mean corpuscular HGB conc 30.4 g/dL 32.0-36.5 Below low tigist l Mean Corpuscular HGB Conc JOHN ([facility]) red cell distribution width 14.8 % 11.5-14.5 Above high no rmal Red Cell Distribution Width JOHN ([facility]) mean corpuscular hemoglobin 25.0 pg 27.0-33.0 Below low nor mal Mean Corpuscular Hemoglobin JOHN ([facility]) lymph % 17.9 % 24.0-44.0 Below low normal Lymph % JOHN ( [facility]) platelet count, automated 329 10 150-450 normal Platelet C ount, Automated JOHN ([facility]) neutrophils % 71.9 % 36.0-66.0 Above high normal Neutrophils % A [facility] ([facility]) baso % 0.5 % 0.0-1.0 normal Baso % JOHN ([facility]) immature granulocyte % 0.4 % 0-3.0 normal Immature Gran ulocyte % JOHN ([facility]) eos % 4.2 % 0.0-3.0 Above high normal Eos % JOHN ([facility]) mono % 5.1 % 0.0-5.0 Above high normal [place] % JOHN ([facility]) mono # 0.7 10 0.0-0.8 normal [place] # JOHN ([facility]) neutrophils # 9.2 10 1.5-8.5 Above high normal Neutrophils # [facility]) nucleated red blood cell % 0.0 % 0-0 normal Nucleated Red Blood Cell % JOHN ([facility]) lymph # 2.3 10 1.5-5.0 normal Lymph # JOHN ([facility]) eos # 0.5 10 0.0-0.5 normal Eos # JOHN ([facility]) baso # 0.1 10 0.0-0.2 normal Baso # JOHN ([facility]) ID Date Data Source [id number] 09/12/2020 12:38:00 PM EST JOHN ([facility]) Name Value Range Interpretation Code Description Data Estella rce(s) Supporting Document(s) C reactive protein quantitativ 10.80 mg/dL 0.00-0.30 Above high normal C Reactive Protein Quantitativ [place] ([facility]) ID Date Data Source [id number] 09/12/2020 12:38:00 PM EST JOHN ([facility]) Name Value Range Interpretation Code Description Data Estella rce(s) Supporting Document(s) glucose, fasting 98 mg/dL 70-100 normal Glucose, Fasting AT [facility]) creatinine for GFR 0.61 mg/dL 0.55-1.30 normal Creatinine for GF R [place] ([facility]) blood urea nitrogen 8 mg/dL 7-18 normal Blood Urea Nitro gen [place] ([facility]) glomerular filtration rate > 60.0 >60 normal Glomerula r Filtration Rate JOHN ([facility]) potassium serum 3.9 mEq/L 3.5-5.1 normal Potassium Serum ATHE NA ([facility]) sodium level 141 mEq/L 136-145 normal Sodium Level JOHN ([facility]) chloride level 109 mEq/L 98-107 Above high normal Chloride Level JOHN ([facility]) anion gap 7 mEq/L 8-16 Below low normal Anion Gap [place] ( [facility]) carbon dioxide level 25 mEq/L 21-32 normal Carbon Dioxide Level JOHN ([facility]) calcium level 9.3 mg/dL 8.5-10.1 normal Calcium Level [place] ( [facility]) AST/SGOT 14 U/L 7-37 normal AST/SGOT JOHN ([facility]) bilirubin,total 0.4 mg/dL 0.2-1.0 normal Bilirubin,total ATHE NA ([facility]) ALT/SGPT 18 U/L 12-78 normal ALT/SGPT JOHN ([facility]) alkaline phosphatase 120 U/L 45-117 Above high normal Alkaline Phosphatase JOHN ([facility]) albumin 3.6 gm/dL 3.2-5.2 normal Albumin JOHN ([facility]) total protein 7.1 gm/dL 6.4-8.2 normal Total Protein JOHN ( [facility]) albumin/globulin ratio 1.2-2.2 Below low normal Albumin /globulin Ratio JOHN ([facility]) ID Date Data Source [id number] 09/12/2020 12:38:00 PM EST [place] ([facility]) Name Value Range Interpretation Code Description Data Estella rce(s) Supporting Document(s) erythrocyte sedimentation rate 60 mm/HR 0-20 Above high normal Erythrocyte Sedimentation Rate JOHN ([facility]) ID Date Data Source [id number] 09/12/2020 12:38:00 PM EST JOHN ([facility]) Name Value Range Interpretation Code Description Data Estella rce(s) Supporting Document(s) white blood count 12.8 10 4.0-10.0 Above high normal White Blood Count JOHN ([facility]) hematocrit 37.5 % 36.0-47.0 normal Hematocrit JOHN ([facility]) red blood count 4.56 10 4.00-5.40 normal Red Blood Count ATHE NA ([facility]) hemoglobin 11.4 g/dL 12.0-15.5 Below low normal Hemoglobin JOHN ( [facility]) mean corpuscular volume 82.2 fL 80.0-96.0 normal Mean Corpusc ular Volume JOHN ([facility]) mean corpuscular hemoglobin 25.0 pg 27.0-33.0 Below low nor mal Mean Corpuscular Hemoglobin JOHN ([facility]) mean corpuscular HGB conc 30.4 g/dL 32.0-36.5 Below low tigist l Mean Corpuscular HGB Conc JOHN ([facility]) red cell distribution width 14.8 % 11.5-14.5 Above high no rmal Red Cell Distribution Width JOHN ([facility]) neutrophils % 71.9 % 36.0-66.0 Above high normal Neutrophils % A [facility] ([facility]) platelet count, automated 329 10 150-450 normal Platelet C ount, Automated JOHN ([facility]) lymph % 17.9 % 24.0-44.0 Below low normal Lymph % JOHN ( [facility]) mono % 5.1 % 0.0-5.0 Above high normal [place] % JOHN ([facility]) eos % 4.2 % 0.0-3.0 Above high normal Eos % JOHN ([facility]) nucleated red blood cell % 0.0 % 0-0 normal Nucleated Red Blood Cell % JOHN ([facility]) immature granulocyte % 0.4 % 0-3.0 normal Immature Gran ulocyte % JOHN ([facility]) baso % 0.5 % 0.0-1.0 normal Baso % JOHN ([facility]) neutrophils # 9.2 10 1.5-8.5 Above high normal Neutrophils # A THE[place] ([facility]) lymph # 2.3 10 1.5-5.0 normal Lymph # JOHN ([facility]) mono # 0.7 10 0.0-0.8 normal [place] # JOHN ([facility]) eos # 0.5 10 0.0-0.5 normal Eos # JOHN ([facility]) baso # 0.1 10 0.0-0.2 normal Baso # JOHN ([facility]) ID Date Data Source [id number] 09/12/2020 12:38:00 PM EST [place] ([facility]) Name Value Range Interpretation Code Description Data Estella rce(s) Supporting Document(s) C reactive protein quantitativ 10.80 mg/dL 0.00-0.30 Above high normal C Reactive Protein Quantitativ [place] ([facility]) ID Date Data Source [id number] 09/12/2020 12:38:00 PM EST JOHN ([facility]) Name Value Range Interpretation Code Description Data Estella rce(s) Supporting Document(s) blood urea nitrogen 8 mg/dL 7-18 normal Blood Urea Nitro gen JOHN ([facility]) glucose, fasting 98 mg/dL 70-100 normal Glucose, Fasting AT [facility]) creatinine for GFR 0.61 mg/dL 0.55-1.30 normal Creatinine for GF R JOHN ([facility]) potassium serum 3.9 mEq/L 3.5-5.1 normal Potassium Serum ATHE ([facility]) glomerular filtration rate > 60.0 >60 normal Glomerula r Filtration Rate JOHN ([facility]) sodium level 141 mEq/L 136-145 normal Sodium Level JOHN ([facility]) carbon dioxide level 25 mEq/L 21-32 normal Carbon Dioxide Level JOHN ([facility]) anion gap 7 mEq/L 8-16 Below low normal Anion Gap JOHN ( [facility]) chloride level 109 mEq/L 98-107 Above high normal Chloride Level JOHN ([facility]) calcium level 9.3 mg/dL 8.5-10.1 normal Calcium Level JOHN ( [facility]) alkaline phosphatase 120 U/L 45-117 Above high normal Alkaline Phosphatase JOHN ([facility]) bilirubin,total 0.4 mg/dL 0.2-1.0 normal Bilirubin,total ATHE ([facility]) ALT/SGPT 18 U/L 12-78 normal ALT/SGPT JOHN ([facility]) AST/SGOT 14 U/L 7-37 normal AST/SGOT JOHN ([facility]) total protein 7.1 gm/dL 6.4-8.2 normal Total Protein JOHN ( [facility]) albumin 3.6 gm/dL 3.2-5.2 normal Albumin JOHN ([facility]) albumin/globulin ratio 1.2-2.2 Below low normal Albumin /globulin Ratio JOHN ([facility]) ID Date Data Source [id number] 09/12/2020 12:38:00 PM EST JOHN ([facility]) Name Value Range Interpretation Code Description Data Estella rce(s) Supporting Document(s) erythrocyte sedimentation rate 60 mm/HR 0-20 Above high normal Erythrocyte Sedimentation Rate JOHN ([facility]) ID Date Data Source [id number] 09/12/2020 12:38:00 PM EST JOHN ([facility]) Name Value Range Interpretation Code Description Data Estella rce(s) Supporting Document(s) white blood count 12.8 10 4.0-10.0 Above high normal White Blood Count JOHN ([facility]) hemoglobin 11.4 g/dL 12.0-15.5 Below low normal Hemoglobin JOHN ( [facility]) hematocrit 37.5 % 36.0-47.0 normal Hematocrit JOHN ([facility]) red blood count 4.56 10 4.00-5.40 normal Red Blood Count ATHE ([facility]) red cell distribution width 14.8 % 11.5-14.5 Above high no rmal Red Cell Distribution Width JOHN ([facility]) mean corpuscular volume 82.2 fL 80.0-96.0 normal Mean Corpusc ular Volume JOHN ([facility]) mean corpuscular HGB conc 30.4 g/dL 32.0-36.5 Below low tigist l Mean Corpuscular HGB Conc JOHN ([facility]) mean corpuscular hemoglobin 25.0 pg 27.0-33.0 Below low nor mal Mean Corpuscular Hemoglobin JOHN ([facility]) platelet count, automated 329 10 150-450 normal Platelet C ount, Automated JOHN ([facility]) lymph % 17.9 % 24.0-44.0 Below low normal Lymph % JOHN ( [facility]) mono % 5.1 % 0.0-5.0 Above high normal [place] % JOHN ([facility]) neutrophils % 71.9 % 36.0-66.0 Above high normal Neutrophils % A [place] ([facility]) eos % 4.2 % 0.0-3.0 Above high normal Eos % JOHN ([facility]) immature granulocyte % 0.4 % 0-3.0 normal Immature Gran ulocyte % JOHN ([facility]) baso % 0.5 % 0.0-1.0 normal Baso % JOHN ([facility]) mono # 0.7 10 0.0-0.8 normal [place] # JOHN ([facility]) neutrophils # 9.2 10 1.5-8.5 Above high normal Neutrophils # A THENA ([facility]) lymph # 2.3 10 1.5-5.0 normal Lymph # JOHN ([facility]) nucleated red blood cell % 0.0 % 0-0 normal Nucleated Red Blood Cell % JOHN ([facility]) baso # 0.1 10 0.0-0.2 normal Baso # JOHN ([facility]) eos # 0.5 10 0.0-0.5 normal Eos # JOHN ([facility]) ID Date Data Source [id number] 09/12/2020 12:38:00 PM EST JOHN ([facility]) Name Value Range Interpretation Code Description Data Estella rce(s) Supporting Document(s) C reactive protein quantitativ 10.80 mg/dL 0.00-0.30 Above high normal C Reactive Protein Quantitativ JOHN ([facility]) ID Date Data Source [id number] 09/12/2020 12:38:00 PM EST JOHN ([facility]) Name Value Range Interpretation Code Description Data Estella rce(s) Supporting Document(s) blood urea nitrogen 8 mg/dL 7-18 normal Blood Urea Nitro gen [place] ([facility]) glucose, fasting 98 mg/dL 70-100 normal Glucose, Fasting AT [place] ([facility]) glomerular filtration rate > 60.0 >60 normal Glomerula r Filtration Rate JOHN ([facility]) creatinine for GFR 0.61 mg/dL 0.55-1.30 normal Creatinine for GF R JOHN ([facility]) sodium level 141 mEq/L 136-145 normal Sodium Level JOHN ([facility]) potassium serum 3.9 mEq/L 3.5-5.1 normal Potassium Serum ATHE ([facility]) carbon dioxide level 25 mEq/L 21-32 normal Carbon Dioxide Level JOHN ([facility]) chloride level 109 mEq/L 98-107 Above high normal Chloride Level JOHN ([facility]) ALT/SGPT 18 U/L 12-78 normal ALT/SGPT JOHN ([facility]) calcium level 9.3 mg/dL 8.5-10.1 normal Calcium Level JOHN ( [facility]) AST/SGOT 14 U/L 7-37 normal AST/SGOT JOHN ([facility]) alkaline phosphatase 120 U/L 45-117 Above high normal Alkaline Phosphatase JOHN ([facility]) anion gap 7 mEq/L 8-16 Below low normal Anion Gap JOHN ( [facility]) albumin 3.6 gm/dL 3.2-5.2 normal Albumin JOHN ([facility]) bilirubin,total 0.4 mg/dL 0.2-1.0 normal Bilirubin,total ATHE ([facility]) total protein 7.1 gm/dL 6.4-8.2 normal Total Protein JOHN ( [facility]) albumin/globulin ratio 1.2-2.2 Below low normal Albumin /globulin Ratio JOHN ([facility]) ID Date Data Source [id number] 09/12/2020 12:38:00 PM EST JOHN ([facility]) Name Value Range Interpretation Code Description Data Estella rce(s) Supporting Document(s) erythrocyte sedimentation rate 60 mm/HR 0-20 Above high normal Erythrocyte Sedimentation Rate JOHN ([facility]) ID Date Data Source [id number] 09/12/2020 12:38:00 PM EST [place] ([facility]) Name Value Range Interpretation Code Description Data Estella rce(s) Supporting Document(s) white blood count 12.8 10 4.0-10.0 Above high normal White Blood Count JOHN ([facility]) hemoglobin 11.4 g/dL 12.0-15.5 Below low normal Hemoglobin JOHN ( [facility]) red blood count 4.56 10 4.00-5.40 normal Red Blood Count ATHE NA ([facility]) mean corpuscular volume 82.2 fL 80.0-96.0 normal Mean Corpusc ular Volume JOHN ([facility]) mean corpuscular hemoglobin 25.0 pg 27.0-33.0 Below low nor mal Mean Corpuscular Hemoglobin JOHN ([facility]) mean corpuscular HGB conc 30.4 g/dL 32.0-36.5 Below low tigist l Mean Corpuscular HGB Conc JOHN ([facility]) hematocrit 37.5 % 36.0-47.0 normal Hematocrit JOHN ([facility]) red cell distribution width 14.8 % 11.5-14.5 Above high no rmal Red Cell Distribution Width JOHN ([facility]) platelet count, automated 329 10 150-450 normal Platelet C ount, Automated JOHN ([facility]) lymph % 17.9 % 24.0-44.0 Below low normal Lymph % JOHN ( [facility]) neutrophils % 71.9 % 36.0-66.0 Above high normal Neutrophils % A THENA ([facility]) mono % 5.1 % 0.0-5.0 Above high normal [place] % JOHN ([facility]) immature granulocyte % 0.4 % 0-3.0 normal Immature Gran ulocyte % JOHN ([facility]) nucleated red blood cell % 0.0 % 0-0 normal Nucleated Red Blood Cell % JOHN ([facility]) eos % 4.2 % 0.0-3.0 Above high normal Eos % JOHN ([facility]) baso % 0.5 % 0.0-1.0 normal Baso % JOHN ([facility]) mono # 0.7 10 0.0-0.8 normal [place] # JOHN ([facility]) eos # 0.5 10 0.0-0.5 normal Eos # JOHN ([facility]) baso # 0.1 10 0.0-0.2 normal Baso # JOHN ([facility]) lymph # 2.3 10 1.5-5.0 normal Lymph # JOHN ([facility]) neutrophils # 9.2 10 1.5-8.5 Above high normal Neutrophils # A CLAUDIA ([facility]) ID Date Data Source [id number] 09/09/2020 02:41:21 PM EDT [facility] Patient History Medical History:AsthmaDe pressionSeizure disorder s/p MVASLE - lupusHypertensionSurgical History: section [id number] D&CAppendectomyTonsillectomyGallbladderFamily History:Hypertension (Father)Diabetes (Father)Social/Personal History: Smoking Status: former smokerChief Complaint: Routine CleaningVisit Type: ExamCurrent Problems: Dental caries (ICD-521.00) (LBT71-G76.9)Contact with and (suspected) exposure to other viral communicable diseases (ICD-V01.79) (LAM15-K60.828)Encounter for surveillance of intrauterine contraceptive device (ICD-V25.42) (XPT63-I30.431)Encounter for general adult medical examination without abnormal findings (GDU12-E76.00)Encounter for care and examination of lactating mother (ICD-V24.1) (SKZ34-Q09.1)Encounter for immunization (ICD-V05.9) (XGB08-N35)BMI 45.0-49.9 (ICD-V85.42) (GBS99-Z68.42)MORBID OBESITY (ICD-278.01) (ICD10- E66.01)Problem list reviewed during [...] [facility]) Existing:Type - CDT Code - Description[E] [place] - 3/4 Cast High Z[place]ata Metal On #18[E] Resin-Based Composite - Direct On #19 Surface O, #3 Surface O, #30 Surface O, #31 Surface OBL, #4 Surface OD, #5 Surface OD[E] [place] - Esthetic Stainless Steel On #15[E] Missing - [place] and Root On #1 Surface O Region [...] proctective eyewear, a gown, and additional barriers.[place]: ProphShahida PARHAMAudrey by rico (09/09/2020 4:54 PM): ; andriy (Sep 10 2020 4:23PM): CC: [facility] - pt stated she was not [...] Assessment & Plan Problems:Added: Dental caries (ICD-521.00) (RKW20-C87.9)Medications:KEPPRA 1000 MG ORAL TABLETCLONAZEPAM 0.5 MG ORAL [...] TRUE LATEX (Critical)PLAQUENIL (Severe)* LOVANOX (Severe)* FINERGAN (Severe)Orders:Components Engineer Referral [CPT-39464] Name Value Range Interpretation Code Description Data Estella rce(s) Supporting Document(s) ID Date Data Source [id number] 09/07/2020 11:16:42 AM T [facility] Name Value Range Interpretation Code Description Data Estella rce(s) Supporting Document(s) Progress Note [facility] EDDCPq3kLoARHbUo78/IIJjyQDNki8OcRImiVNw8PErvOTFzE5UxYKW3bQ4iVDD5JZzWXrAkIcHtPNF6 lbm [file] DFaaLyQbZtWjP2A0HrraGO0sQWYTLk1+YIjumPMcnXakDYLOQfE6CIO1HJrxRFFRYk0H ID Date Data Source [id number] 08/31/2020 12:23:54 PM EDT [facility] Name Value Range Interpretation Code Description Data Estella rce(s) Supporting Document(s) Progress Note [facility] KWFGDe9fVlOPTlPf42/LASpjRDRgp7PnMGcxSBe0KXjvKVVcK7XzLGA7pZ8eYWR3LKkUEdOqLdEsWTFg lbm KxVfaNEnHoCJRkKapAReBkPGazOzjpmOCgWA7NrEF1RYFnT51jUSLhXSLjR9ImEBEgXPC+Fu3WNLFeeW TjUI4CPyhW9M8qs6yMWx5+pR2EYyXJxQPso5h9iafpaCogbL/qlh59dq0kn6nBQENhH7d7yk+KXIqaCf 2rhlraTi/zv60VcLvQy7bKD3WHi1/VdsX2bgOK/yz/ jBKtLofqn/9T5A0xRe0Z/scxNk1fI9yv8pEaH2/26JRjWwStzwMHPNW6ix7pbfj54PuixEnbs/Kqd/patricia [file] kseOFwlLmrNKETTuU0MMdjPDnfSGXSGg6M ID Date Data Source [id number] 08/25/2020 12:00:00 PM EDT [facility] ([facility]) Name Value Range Interpretation Code Description Data Estella rce(s) Supporting Document(s) TP Reflex HPV ASCUS Laboratory test result [facility] (Grady Dugan [employer]ASK[employer] HAND 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 Cervical, Endocervical, ThinPrep Pap (Contract Coordinator) CYTOLOGY HX-------- Date of Last Menstrual Period: 08/2020 Other Information:Previous Pap: 06/2019 IntraUterine Device FINAL DIAGNOSIS---- INTERPRETATION: Negative for Intraepithelial Lesion or Malignancy. SPECIMEN ADEQUACY:Satisfactory for evaluation. Endocervical/transformation zone component present. TP Reflex HPV ASCUS Laboratory test result [facility] ([place] [facility] [employer] [facility]) ID Date Data Source [id number] 08/17/2020 03:15:00 PM EDT [facility] Name Value Range Interpretation Code Description Data Estella rce(s) Supporting Document(s) SARS-COV-2 RNA RESP QL PATIENCE+PROBE [employer] This lab was ordered by [facility] and reported by [employer] [facility]. ID Date Data Source [id number] 08/17/2020 03:00:00 PM EDT [facility] In-House Lab TestsDate/Time Collect ed: August 17, 2020 3:15 PMDate/Time Received: August 17, 2020 3:15 PMComments: Covid testing performed without difficulty.Radha Matt LPN, August 17, 2020 8:45 PMAssessment & Plan Orders:Specimen Handling [CPT-05165] Name Value Range Interpretation Code Description Data Estella rce(s) Supporting Document(s) ID Date Data Source [id number] 08/17/2020 01:16:51 PM EDT [facility] Name Value Range Interpretation Code Description Data Estella rce(s) Supporting Document(s) Progress Note [facility] SDGDQk3iEmDZYrZg68/YHLoyQKLuv5NzKGqfCEn5ATmsRBNpI4WgTUZ7vO1wDVD6URpDXrSeArNtJGN0 lbm [file] AgICAgICAgICAgICAgICAgICAgICAgICAgICAgICAgICAgICAgICAgICAgICAgICAgICAgICAgICAgIC AgICAgICAgICAgICANCiAgICAgICAgICAgICAgICAgICAgICAgICAgICAgICAgICAgICAgICAgICAgIC AgICAgICAgICAgICAgICAgICAgICAgICAgICAgICAg ICAgICAgICAgICAgICAgICAgICAgICANCiAgICAgICAgICAgICAgICAgICAgICAgICAgICAgICAgICAg ICAgICAgICAgICAgICAgICAgICAgICAgICAgICAgICAgICAgICAgICAgICAgICAgICAgICAgICAgICAg ICAgICANCiAgICAgICAgICAgICAgICAgICAgICAgIC AgICAgICAgICAgICAgICAgICAgICAgICAgICAgICAgICAgICAgICAgICAgICAgICAgICAgICAgICAgIC AgICAgICAgICAgICAgICANCiAgICAgICAgICAgICAgICAgICAgICAgICAgICAgICAgICAgICAgICAgIC AgICAgICAgICAgICAgICAgICAgICAgICAgICAgICAg ICAgICAgICAgICAgICAgICAgICAgICAgICANCiAgICAgICAgICAgICAgICAgICAgICAgICAgICAgICAg ICAgICAgICAgICAgICAgICAgICAgICAgICAgICAgICAgICAgICAgICAgICAgICAgICAgICAgICAgICAg ICAgICAgICANCiAgICAgICAgICAgICAgICAgICAgIC AgICAgICAgICAgICAgICAgICAgICAgICAgICAgICAgICAgICAgICAgICAgICAgICAgICAgICAgICAgIC AgICAgICAgICAgICAgICAgICANCiAgICAgICAgICAgICAgICAgICAgICAgICAgICAgICAgICAgICAgIC AgICAgICAgICAgICAgICAgICAgICAgICAgICAgICAg ICAgICAgICAgICAgICAgICAgICAgICAgICAgICANCiAgICAgICAgICAgICAgICAgICAgICAgICAgICAg ICAgICAgICAgICAgICAgICAgICAgICAgICAgICAgICAgICAgICAgICAgICAgICAgICAgICAgICAgICAg ICAgICAgICAgICANCiAgICAgICAgICAgICAgICAgIC AgICAgICAgICAgICAgICAgICAgICAgICAgICAgICAgICAgICAgICAgICAgICAgICAgICAgICAgICAgIC AgICAgICAgICAgICAgICAgICAgICANCjw/gJKvJ3wmxUQfpsG4D3fiKo7AHk4JCS3zv8KjYBTpHMizlk LuRjhPChQvUARiOhfZFxb3JEgfBU5AaKOhR4PtU5Ll HOekXL2TWNOvFOHftADwYOZnXKTyMdP3OFLjYCnyZU6NkPXhFYyjDWPzCCWoBeMqQFEyBTSlSQCdYVVl CKNLBIRuRESpDvQbALFkJKKfGE4HCCQmM313hiBtYi4CLo8CHqVlFG0pih9DFkLhICStVitNKof4TUrm KF3MoUJnuLYnPoVxSQBNUrZkC7syt4SnPvJyOZMEXC flCP3Ad1GecGRrBHq+Pq5ASP8pr1WyKEpvCbWuAN4mgn8VBNmXRkReE0NrdNanFPCyh5seRFUyKM3urL MwKOT8PJ0hgZClgCUuTNKlF7sngbClMO8cYGNNLGOadTMpMA40UeOoCkJnHWX4HhDjYP3bVOifKB6RWR T4HLanMTHxZMEaI2iRGhKdDUEbBGBlqNatCC1AEsAb N9JdraIhmWKmZeYjJERQCw9+TSekeuIpZkdPOaC5DCIln4OvGMh7TY1GJVVzJNucQY0FQZOauU1qSXvq QN3ZXdYlATKfDGDAPeSdX48qoTWcATi0Q4IsByDpUALsCvvfBBJaWGfeMaSiHQZvTdTpPUaeZQ7+ID4+ PPztJS8BEEzswkZeVDFnHs7ZHZJoLLMbZE5pTRGwNP ElZ5B0ySlfKLKCVtIpN8fwybsbDZ7kRANsO574vAaapfNfLNUsSUUcWz3PKRGkGNE8QUEuxXIeJtPyEN PEOKddHQ2RvEWuPEM0cU1jOSxaHLGyOFVoB9xZImNcpIhaIZ63cJqjxmXdaTNyGFh+Yo3VVX1ki4FnVB r8vsFbQVrbFVZ7CKjyLNErMEXaTLWzBYA9ROW5OOIX IqMcRHWdZKSjPLstJVWoDRFvsb0CQLZuYDQrWRyfDEYvNARrDNXjTMshMADaLFS7UEG1BHKiNDUaOD1G ArSmDAMuZEUwBIkwPUPxKWKuat7CLKGyWGDfEcX5QXBjKFEzTTYuRWgfTTFdDJMaEjhpJKRmEGNyBJ9C ApGgWGFrBFWsJualTZDeFQBdcq1HOKVmBCRsCdThVQ XaIPXuTMZfDOwiHLGaAVT8PWF3XXMuTCEhVF4ZSrSbOEYnZEy2BsoaMRFcVFImwv1EUAQqCGLjRrX3XI BxVCBaSPKwOUjwMLJlTSGtRgViPHQjAORkYP1LJbOqPKOwMXR5EERlSTPhCENqhq9KWIBgPKSbKcC4PG XmDUKqAFMpIJecBELpJQG2XcI4ZHMiGFGmLR6SGbWj OYNoRUj1YrVzWLBrCHFqgp1CUDRoZJTyRUZ2KZLtVFPkZOAoGDpjDSVnOAIhDNc7XGSbYTDoXV6FIvZe EDRoTnU9WuLrRPEpRMKurr5EYGPlQCMkCBznGERqTKVzBZVeYSdeFNIxVVHvGYYcMUYjYAQcTU8TKeWh LHLkDyGoBOkuJILwYZNjtc5TIHGxMLYfFfD0RAAxOW ZyNEDqSRdyUUUdIKClSYt4GQDqUXTxJH4UZsWdKFRpGiZbBEYePXYrVHOhpx3VAGDxTHUoJDBbNzDcAX FqESEgCKpuOCSaTPT8DVp1FYGhOFLwFX1BSzYhRXVsReK0NwCjKLNzNDKuvq6ZYFMfOFCgBGSlMJXjSH VtQBRqXLecWYZnDBV8Ucm0EFZzTRQlBW4NHmRtRGFv FwDhSLNbZMLfAWLvgx8JLQObGDNaLhK1MxRnAISyOUJyQJmgITQqOVM7HyT9XWMcVARqFT3LHhBlQGGm Gkm6CAJbBJTsBXEabm1AmJFozPlmkp5MSOyDXy4DpMnfFDV9CRrdNe2gwREgCFCjDQOBHp6MyeGyXYSh BQCJYMmhBQCkDBYzKAFkH1LkCSKzCPC1IOJ2IdXcEv V8YxJuEIGnGGb3FlE5YMF9ZdXzSOG7LgKoUyHbIVEhRFDpFIkxE0DyOXTwXdR+RQ4bCDj+Kt5Li8Ofcj W5gmWdHOsxGTX0Kj5YSOJYY6UZRe== ID Date Data Source [id number] 08/15/2020 05:10:57 PM EDT [facility], PCName: Winsome AkersDOB: 1990Provider: Abdoulaye [...] Name Value Range Interpretation Code Description Data [facility] rce(s) Supporting Document(s) ID Date Data Source [id number] 07/29/2020 11:12:00 AM EDT [facility] Formed stool submitted. Specimen meets r ejection criteria. Name Value Range Interpretation Code Description Data [facility] rce(s) Supporting Document(s) ID Date Data Source [id number] 08/04/2020 04:04:00 PM EDT [facility] Name Value Range Interpretation Code Description Data [facility] [place] Lupus Tech Interpretation Normal (applies to non-numeric results) [facility] RESULT: See Lupus Anticoagulant Interp. [place] Lupus PT result 9.4 - 12.5 Normal (applies to non-numer ic results) [facility] LA Lupus PT INR result 0.9-1.1 Normal (applies to non-n umeric results) [facility] ADDITIONAL INFORMATIO N Standard intensity warfarin therapeutic range: 2.0 to 3.0 High intensity warfarin therapeutic range: 2.5 to 3.5 [place] Lupus APTT result 35 sec 25 - 37 Normal (applies to non-num carolann results) [facility] [place] Lupus DRVVT Scrn Ratio res <1.20 Way [facility] Test Performed by: [place] [address] Heel Seam Rubber: Steven Victor M.D. Ph.D.; CLIA# [id number] [place] DRVVT Mix Ratio Reflex <1.20 Normal (applies to no n-numeric results) [facility] Test Performed by: [place] [address] Heel Se[employer]ber: Steven Victor M.D. Ph.D.; CLIA# [id number] [place] DRVVT Confirm Ratio Reflex <1.20 Normal (applies t o non-numeric results) [facility] Test Performed by: [place] [address] Heel Se[employer]ber: Steven Victor M.D. Ph.D.; CLIA# [id number] [place] Thrombin Time Reflex Normal (applies to non- numeric results) [facility] REFERENCE VALUE------ 15.8 - 24.9 Test Performed by: [place] [address] Heel Se[employer]ber: Steven Victor M.D. Ph.D.; CLIA# [id number] [place] Lupus Reviewed By result Normal (applies to non-numeric results) [facility] LA Special Coag Interp Rfx Normal (applies to n on-numeric results) [facility] IMPRESSION: 1) No evidence of a [...] of a lupus anticoagulant. Test Performed by: [place] [address] [employer]: Steven Victor M.D. Ph.D.; CLIA# [id number] ID Date Data Source [id number] 07/29/2020 12:19:00 PM EDT [facility] Name Value Range Interpretation Code Description Data Estella rce(s) Supporting Document(s) Vitamin D,Total (25OH) 30.0-100.0 Below low normal [facility] Reference Range: <10 ng/mL: Deficien t 10-30 ng/mL: Insufficient 30-100 ng/mL: Sufficient >100 ng/mL: Toxicity possible ID Date Data Source [id number] 07/29/2020 11:58:00 AM EDT [facility] Name Value Range Interpretation Code Description Data Estella rce(s) Supporting Document(s) Sodium 141 mmol/L 137-145 Normal (applies to non-numeric resul ts) [facility] Potassium 3.5-5.1 Normal (applies to non-numeric resul ts) [facility] Chloride 111 mmol/L 98-112 Normal (applies to non-numeric resul ts) [facility] Carbon Dioxide CO2 22.0-33.0 Normal (applies to non-numer ic results) [facility] Anion Gap 4.0-11.0 Normal (applies to non-numeric resul ts) [facility] BUN 13 mg/dL 7-17 Normal (applies to non-numeric resul ts) [facility] Creatinine 0.70-1.20 Normal (applies to non-numeric resul ts) [facility] GFR 89 mL/min >60 Normal (applies to non-numeric resul ts) [facility] Result based on MDRD formula. Glucose Level 101 mg/dL 74-99 Above high normal [facility] The reference range is only applicable w hen fasting. Calcium-Uncorrected 8.4-10.2 Normal (applies to non-nume margie results) [facility] Corrected Calcium 8.4-10.2 Normal (applies to non-numeri c results) [facility] Bilirubin,Total 0.2-1.3 Normal (applies to non-numeric results) [facility] SGOT(AST) 8 U/L 14-36 Below low normal [facility] SGPT(ALT) 18 U/L 9-52 Normal (applies to non-numeric resul ts) [facility] Alkaline Phosphatase 152 U/L 38-126 Above high normal [facility] can increase Alkaline Phosp le vels up to 2 times the normal adult value. Normal values for children and adolescents are 2 to 3 times the normal adult value. Total Protein 6.3-8.2 Normal (applies to non-numeric re sults) [facility] Albumin 3.5-5.0 Normal (applies to non-numeric resul ts) [facility] ID Date Data Source [id number] 07/29/2020 11:02:00 AM EDT [facility] Name Value Range Interpretation Code Description Data Estella rce(s) Supporting Document(s) White Blood Count 4.8-10.8 Above high normal [facility] Red Blood Count 3.68-5.22 Normal (applies to non-numeric results) [facility] Hemoglobin 11.2-15.7 Normal (applies to non-numeric resul ts) [facility] Hematocrit 34.1-44.9 Normal (applies to non-numeric resul ts) [facility] Mean Corpuscular Volume 81-99 Below low normal [facility] Mean Corpuscular Hemoglobin 27.0-33.0 Below low normal [facility] Mean Corpuscular HGB Conc 32.0-36.0 Normal (applies to no n-numeric results) [facility] Red Cell Distribution Width 11.5-14.5 Above high normal [facility] Platelet Count 350 X10 3/uL 130-450 Normal (applies to non-numeric results) [facility] Mean Platelet Volume 9.5-12.7 Normal (applies to non-num carolann results) [facility] Imm Grans% (AUTO) 0 % 0-2 Normal (applies to non-numeri c results) [facility] Neutrophils % (AUTO) 62 % 40-75 Normal (applies to non-num carolann results) [facility] Lymphocytes % (AUTO) 30 % 21-46 Normal (applies to non-num carolann results) [facility] Monocytes % (AUTO) 4 % 5-12 Below low normal [facility] Eosinophils % (AUTO) 3 % 1-5 Normal (applies to non-num carolann results) [facility] Basophils % (AUTO) 1 % 0-1 Normal (applies to non-numer ic results) [facility] Imm Grans# (AUTO) 0.0-0.5 Normal (applies to non-numeri c results) [facility] Neutrophils # (AUTO) 1.5-8.1 Above high normal [facility] Lymphocytes # (AUTO) 1.0-3.1 Above high normal [facility] Monocytes # (AUTO) 0.2-1.3 Normal (applies to non-numer ic results) [facility] Eosinophils# (AUTO) 0.0-0.5 Normal (applies to non-nume margie results) [facility] Basophils # (AUTO) 0.0-0.1 Normal (applies to non-numer ic results) [facility] ID Date Data Source [id number] 07/19/2020 04:12:51 PM EDT [facility] TRANSVAGINAL [id number] RESULTInterpr eted by:Lizandro Fitzpatrick, Sully Ye MDINDICATION: 30-year-old female status post and IUD [...] rce(s) Supporting Document(s) ID Date Data Source [id number] 07/20/2020 12:52:44 PM EDT [facility] Service Cmnt XXX-Imp : NoneMicroorganism XXX Cult : Field Service Tech-Mediated Amplification is NEGATIVE for Trichomonas vaginalis. Name Value Range Interpretation Code Description Data Estella rce(s) Supporting Document(s) ID Date Data Source [id number] 07/16/2020 10:33:46 PM EDT [facility] Cmnt XXX-Imp : NoneGram Stn XXX : No WBC's SeenNegative for bacterial vaginosis. Name Value Range Interpretation Code Description Data Estella rce(s) Supporting Document(s) ID Date Data Source [id number] 07/16/2020 08:51:38 PM EDT [facility] Cmnt XXX-Imp : NoneKOH Prep XXX : No yeast or fungal elements seen Name Value Range Interpretation Code Description Data Estella rce(s) Supporting Document(s) ID Date Data Source [id number] 07/16/2020 01:55:46 PM EDT [facility] Name Value Range Interpretation Code Description Data Estella rce(s) Supporting Document(s) Progress Note [facility] ZLJMFs8rFkNODkNe07/SKCkiCAMfq3PhKAenHLm4YDvwVJCzV2EbSEP2fA1rXXA2DDoFRfCoYqIeDVO0 [facility] [file] Lz0JXbN0AhtCBaZjSZ1FVJj= ID Date Data Source [id number] 06/24/2020 01:20:37 PM EDT [facility] Measurements & CalculationsHeight: 64 inches (5 ft. [...] Boostrix - AdultMfr / Lot# / Exp.Date: NEURONIX / 2kk22Amt. Given / Route / Site: 0.5 mL / IM / Right DeltoidNDC / CVX: [id number] / 115Administered Date: 06/24/2020 14:05VFC Eligibility: Not [...] or Preferred Language: EnglishFamily and Home Address: [place] [address] [address] [place] [address] What is your housing situation today? I [...] needed? Denies Insecurity: food, utilities, clothing, child & adolescent psychiatrist, phone, legal services, otherWithin the past year [...] Medical History:AsthmaDepressionSeizure disorder s/p MVASLESurgical History: section p5Hddoovvyngw D&CAppendectomyTonsillectomyGallbladderFamily History:Hypertension (Father)Diabetes (Father)Social/Personal History: Chief Complaintannual examHistory of Present Illness (HPI)29 yo female [facility] and for annual PE.Pt delivered [...] during this visit, including review of any pxai-tqp-cnrqzoi medications, herbal therapies, and/or supplements.Allergy ReviewAllergy List [...] general adult medical examination without abnormal findings (KWA80-O69.00) Assessment: Instructions: Recommend annual medical appointments. Recommend routine dental and vision care. Recommend influenza vaccines annually and tetanus boosters every 10 years. Release of information form(s) to obtain medical records from your prior providers(s) has been signed in the office today.Encounter for care and examination of lactating mother (ICD-V24.1) (YQS54-Z39.1) Assessment: Instructions: Healthy diet, adequate hydration, while .Encounter for immunization (ICD-V05.9) (HIZ89-M44) Assessment: Instructions: Tdap today.MORBID OBESITY (ICD-278.01) (MGX59-Q58.01) Assessment: Instructions: Recommend healthy lifestyle modification. Encourage portion control, healthy food choices, and increasing routine physical activity. Recommendation is for 150 minutes throughout the week of cardiovascular exercise.BMI 45.0-49.9 (ICD-V85.42) (KJA76-T33.42) Assessment: Instructions: As above.Patient Instructions/Care Plan: Encounter [...] (Critical)PLAQUENIL (Severe)* LOVANOX (Severe)* FINERGAN (Severe)Orders:Tdap (5) [CPT-84531] 98982 - Immo Admin (over 19 yrs), 1st Vaccine [CPT-81271] 77055 - Immo Admin (over 19 yrs), Addtl Vaccine(s) [CPT-91869] Preventive, New, (18-39) [CPT-38064] Follow-Up Return to clinic: in 90 days for follow up Name Value Range Interpretation Code Description Data Estella rce(s) Supporting Document(s) ID Date Data Source [id number] 06/17/2020 04:03:40 PM EDT [facility] Name Value Range Interpretation Code Description Data Estella rce(s) Supporting Document(s) Progress Note [facility] XAOUKk3rKhEBZsRf98/CQTekCXPfz3HoMSdtOPm0BCaaABBoZ6TtFOD3yG7xWTI3YTkOLfWtBbGvYBZ7 lbm [file] ID Date Data Source [id number] 06/17/2020 01:35:00 PM EDT [facility] DATE OF EXAM: 06/17/2020CT ABDOMEN [...] cavity.3. Mild hepatomegaly. Professional interpretation performed at [facility] .End of diagnostic report for accession: [id number] Interpreted: Ann Marie Ackerman MDTranscribed: 06/17/2020 01:25 PMSigned: 06/17/2020 01:35 PM Ann Marie Ackerman MD [facility] # [id number] BILL # [id number] Name Value Range Interpretation Code Description Data Estella [facility](s) Supporting Document(s) ID Date Data Source [id number] 06/17/2020 12:44:16 PM EDT [facility] Name Value Range Interpretation Code Description Data Estella [facility](s) Supporting Document(s) SODIUM 142 mmol/L (136-145) [facility] POTASSIUM 4.1 mmol/L (3.6-5.2) [facility] CHLORIDE 110 mmol/L (100-108) H [facility] CO2 24 mmol/L (22-31) [facility] ANION GAP 8 mmol/L (7-16) [facility] UREA NITROGEN 9 mg/dL (7-24) [facility] CREATININE 0.70 mg/dL (0.60-1.00) [facility] BUN/CREAT RATIO 12.9 RATIO (10.0-20.0) [facility] GLUCOSE 87 mg/dL (70-99) [facility] CALCIUM 8.8 mg/dL (8.4-10.2) [facility] GFR >60 ml/min/1.73m2 (>59) [facility] GFR ( AMER) >60 ml/min/1.73m2 (>59) [facility] GFR INTERPRETATION [facility] --NORMAL KIDNEY FUNCTION OR MILD DISEASE - GFR >OR= 60CHRONIC KIDNEY DISEASE - GFR 15 - 59RENAL FAILURE - GFR <15 Est. GFR calculation based on the MDRDstudy equation, which assumes a steadystate for creatinine. Est. GFR should notbe used for medication dosing. ID Date Data Source [id number] 06/17/2020 12:19:54 PM EDT [facility] Name Value Range Interpretation Code Description Data Estella rce(s) Supporting Document(s) WBC 11.9 10*3/uL (4.1-11.0) H [facility] RBC 4.52 10*6/uL (4.00-5.40) [facility] HGB 11.6 g/dL (12.0-16.0) L [facility] HCT 36.9 % (36.0-47.0) [facility] MCV 81.6 fL (80.0-95.0) [facility] MCH 25.6 pg (27.0-32.0) L [facility] MCHC 31.4 g/dL (32.0-36.0) L [facility] RDW 14.8 % (10.5-14.5) H [facility] PLT 282 10*3/uL (150-450) [facility] MPV 8.3 fL (7.1-10.7) [facility] NEUT % 65.5 % (35.0-75.0) [facility] LYMPH % 25.6 % (16.0-52.0) [facility] MONO % 4.0 % (0.0-8.0) [facility] EOS % 4.2 % (0.0-5.0) [facility] BASO % 0.7 % (0.0-4.0) [facility] NEUT # 7.8 10*3/uL (1.8-7.7) H [facility] LYMPH # 3.1 10*3/uL (1.2-4.8) [facility] MONO # 0.5 10*3/uL (0.0-0.8) [facility] Eosinophils [#/volume] in Blood by Automated count 0.5 10*3/uL (0.0-0 .5) [facility] BASO # 0.1 10*3/uL (0.0-0.2) [facility] ID Date Data Source [id number] 06/17/2020 12:14:16 PM EDT [facility] Name Value Range Interpretation Code Description Data Estella rce(s) Supporting Document(s) HOLD TUBE PINK [facility] ID Date Data Source [id number] 06/17/2020 12:50:58 PM EDT [facility] Name Value Range Interpretation Code Description Data Estella rce(s) Supporting Document(s) URINE WBC (0-5) [facility] URINE RBC (0-2) [facility] EPITHELIAL CELLS 2+ [HPF] [facility] BACTERIA 3+ [HPF] [facility] MUCUS 1+ [HPF] [facility] HYALINE CASTS [facility] WBC CAST [facility] ID Date Data Source [id number] 06/17/2020 12:20:14 PM EDT [facility] Name Value Range Interpretation Code Description Data Estella rce(s) Supporting Document(s) COLOR [facility] APPEARANCE [facility] SPEC GRAV URINE 1.014 (1.003-1.030) [facility] PH URINE 5.5 (5.0-7.5) [facility] LEUK ESTERASE (NEG) [facility] CRITERIA FOR CULTURE NOT MET.CULTURE CAN BE ADDED WITHIN 36 HOURS OFCOLLECTION. NITRITE URINE (NEG) [facility] PROTEIN URINE (NEG) [facility] GLUCOSE URINE (NEG) [facility] KETONE URINE (NEG) [facility] UROBILINOGEN 0.2 mg/dL (0-1.0) [facility] BILIRUBIN URINE (NEG) [facility] BLOOD/HGB URINE 2+ (NEG) A [facility] ID Date Data Source [id number] 06/12/2020 04:37:00 PM EDT [facility] DATE OF EXAM: 06/12/2020EXAMINATION:Ultr asound anterior body [...] cannot be excluded. Professional interpretation performed at [facility] .End of diagnostic report for accession: [id number] Interpreted: Benedict Dickens MDTranscribed: 06/12/2020 04:33 PMSigned: 06/12/2020 04:37 PM Benedict Dickens MD [facility] # [id number] BILL # [id number] Name Value Range Interpretation Code Description Data Estella rce(s) Supporting Document(s) ID Date Data Source [id number] 06/12/2020 04:10:52 PM EDT [facility] [place] Name Value Range Interpretation Code Description Data Estella rce(s) Supporting Document(s) SODIUM 145 mmol/L (136-145) [facility] POTASSIUM 3.5 mmol/L (3.6-5.2) L [facility] CHLORIDE 113 mmol/L (100-108) H [facility] CO2 25 mmol/L (22-31) [facility] ANION GAP 7 mmol/L (7-16) [facility] UREA NITROGEN 9 mg/dL (7-24) [facility] CREATININE 0.55 mg/dL (0.60-1.00) L [facility] BUN/CREAT RATIO 16.4 RATIO (10.0-20.0) [facility] GLUCOSE 78 mg/dL (70-99) [facility] CALCIUM 8.5 mg/dL (8.4-10.2) [facility] GFR >60 ml/min/1.73m2 (>59) [facility] GFR ( AMER) >60 ml/min/1.73m2 (>59) [facility] GFR INTERPRETATION [facility] --NORMAL KIDNEY FUNCTION OR MILD DISEASE - GFR >OR= 60CHRONIC KIDNEY DISEASE - GFR 15 - 59RENAL FAILURE - GFR <15 Est. GFR calculation based on the MDRDstudy equation, which assumes a steadystate for creatinine. Est. GFR should notbe used for medication dosing. ID Date Data Source [id number] 06/12/2020 04:08:16 PM EDT [facility] Name Value Range Interpretation Code Description Data Estella rce(s) Supporting Document(s) WBC 14.1 10*3/uL (4.1-11.0) H [facility] RBC 4.22 10*6/uL (4.00-5.40) [facility] HGB 10.8 g/dL (12.0-16.0) L [facility] HCT 34.0 % (36.0-47.0) L [facility] MCV 80.8 fL (80.0-95.0) [facility] MCH 25.7 pg (27.0-32.0) L [facility] MCHC 31.9 g/dL (32.0-36.0) L [facility] RDW 14.5 % (10.5-14.5) [facility] PLT 305 10*3/uL (150-450) [facility] MPV 8.3 fL (7.1-10.7) [facility] NEUT % 62.2 % (35.0-75.0) [facility] LYMPH % 29.3 % (16.0-52.0) [facility] MONO % 6.0 % (0.0-8.0) [facility] EOS % 2.1 % (0.0-5.0) [facility] BASO % 0.4 % (0.0-4.0) [facility] NEUT # 8.7 10*3/uL (1.8-7.7) H [facility] LYMPH # 4.1 10*3/uL (1.2-4.8) [facility] MONO # 0.8 10*3/uL (0.0-0.8) [facility] Eosinophils [#/volume] in Blood by Automated count 0.3 10*3/uL (0.0-0 .5) [facility] BASO # 0.1 10*3/uL (0.0-0.2) [facility] ID Date Data Source [id number] 06/08/2020 04:45:28 PM EDT [facility] Name Value Range Interpretation Code Description Data Estella rce(s) Supporting Document(s) Progress Note [facility] MJLNFe0pByIFOiAg15/XAQkfSTRqd1UePAmpRCt2RSdpRBNkZ7ZfPJH2nT9wZFH5JLcWZdGcMhDvRwO6 lb [file] AgICAgICAgICAgICAgICAgICAgICAgICAgICAgICAgICAgICAgICAgICAgICAgICAgICAgICAgICAgIC AgICAgICAgICAgDQogICAgICAgICAgICAgICAgICAg ICAgICAgICAgICAgICAgICAgICAgICAgICAgICAgICAgICAgICAgICAgICAgICAgICAgICAgICAgICAg ICAgICAgICAgICAgICAgICAgICAgDQogICAgICAgICAgICAgICAgICAgICAgICAgICAgICAgICAgICAg ICAgICAgICAgICAgICAgICAgICAgICAgICAgICAgIC AgICAgICAgICAgICAgICAgICAgICAgICAgICAgICAgDQogICAgICAgICAgICAgICAgICAgICAgICAgIC AgICAgICAgICAgICAgICAgICAgICAgICAgICAgICAgICAgICAgICAgICAgICAgICAgICAgICAgICAgIC AgICAgICAgICAgICAgDQogICAgICAgICAgICAgICAg ICAgICAgICAgICAgICAgICAgICAgICAgICAgICAgICAgICAgICAgICAgICAgICAgICAgICAgICAgICAg ICAgICAgICAgICAgICAgICAgICAgICAgDQogICAgICAgICAgICAgICAgICAgICAgICAgICAgICAgICAg ICAgICAgICAgICAgICAgICAgICAgICAgICAgICAgIC AgICAgICAgICAgICAgICAgICAgICAgICAgICAgICAgICAgDQogICAgICAgICAgICAgICAgICAgICAgIC AgICAgICAgICAgICAgICAgICAgICAgICAgICAgICAgICAgICAgICAgICAgICAgICAgICAgICAgICAgIC AgICAgICAgICAgICAgICAgDQogICAgICAgICAgICAg ICAgICAgICAgICAgICAgICAgICAgICAgICAgICAgICAgICAgICAgICAgICAgICAgICAgICAgICAgICAg ICAgICAgICAgICAgICAgICAgICAgICAgICAgDQogICAgICAgICAgICAgICAgICAgICAgICAgICAgICAg ICAgICAgICAgICAgICAgICAgICAgICAgICAgICAgIC AgICAgICAgICAgICAgICAgICAgICAgICAgICAgICAgICAgICAgDQogICAgICAgICAgICAgICAgICAgIC AgICAgICAgICAgICAgICAgICAgICAgICAgICAgICAgICAgICAgICAgICAgICAgICAgICAgICAgICAgIC KuYJCsVVQyYPCdXYTkUPGcWQQuHKl7E4hnNFLwRJKf XL0nPJq4Ur8+HTnRUgPsDFJ5ymWqoC5ZLC2ji4ArAFadMRYwq1HxHJt3HC2PGAWxDDkgBZ4FNJhxlz7Z PONgLHUmqYXXw4nfPuLbYZZ2MLBfYhlpDP8ODEEaX9bwcwYnAOGdVBCCYHfmJHYVZB8VEjDcW7BhaG98 IDINCj4+RKtexpHpPhoBOoC1QFMkp6UnFAk7UB8FBB RhPkswt6UnGeWbWEYEPAwzVI2QFIE1MKK3XYSqSw5FTGMzO963jkZtTK8TCq9AWlXrOS8vys3IDgUrDH PrWfrLFmo5PFqwAM1YeJJvOZxEmh1qupGswjWEa6UfboCjpGCGfJZfmTADTFfvhClisOrmVnTvSVSiWq 9qIV4wCOSgYMXySlTvADFCYT5NWAJqJOYpvMDvBRAf GJRUCH7ALIgtKDI2VXZxrzCujAFcQAsfPX7ZTMLioaNjBlMiPQSYPAx+Mg9VFD2ti9MqTYtbYoEdDS3k no7YRFxVGbKeX0I7mRPfZ9B5KFrjQe1MMKXrTHAhMpHsEQWWCRcnFF2WPN2gpiL8MJ2OhEEtTZPtUCRu lTXzVHd2I60lqEReDDezPS4MASS+Penny+Uw2AWYUcQY JsYBIrVlVxUEQNGpVsP6YnO0UAp8JeO7RdNQ97lEqomnUvJNzhGI4SGS9nQKVkCYBKKV8CrPEnyW7hch UdEADeJWJXTxNgC43yeBBkQTUcAGSjODTbIt9SNIWbV4AamwYzxGwvohWsZEBtNAKTJJ0KUJswhoLucJ OktWmuWW51fPhoNC8UKl0ZGoNfFC6zqf1HaDWrAv7O QXZoSk9VQEMzUAGuQGQtAIH8IFSeClKiPTghEVAqYXLcYZU7RYMpDLUhJY8KAjNvIMYyIlHvZoEbBWGl LSZcgb5OFWKoMWQvLgF1SRFiEGTkXQJjYPalXIZdBHWcQRL9PSSfGRMpMZ2KFbDgUCSyBLE8JTEmLPIy TRGhxx0SEVSjWXWeQkytVqEnMVPsBKLiFFebINNkSL O9GMO4YSAdFOUpPE1TXtKeOTSnGLHoXDGfNBFiTUQudj5CSYHhOBQpNBe4QLWqOROwRPCyYZegFEOqDF F9NEf6KEXgRYQyJW0MDiRxOMCsYXQbPcSwFTHsAFZusu6JDITuEWGyPhRwUVNsDQSxBGLrLXqoJOQgMR N0XID7IAJrZAAsZH2VRgUbVDAiWNr5CbLoMQCdQVIg fq6TTPKgHSRpXNC3RGVmUUBnOHDmGWkyNDCjUQX7Ccn5SOSkOTGvMX0SYtUwCZPfQMr9HKLfNQQqGSOx cx7QMZIaPSKrXRb8OJOjCSLuWCUoOHynPJBvUSH9IYruCHDvNAOaBJ4QQjOsFQCfUjD3RjYoOODcJVNl im5CSFPqBIPtRBKmIVYrUHVqUJSuBLdfTWPfCLKsYz LfONTqXCTwXV1LNhGwTOVhByE6YcAaKLLlMWTtpa4BNSKzMBUeQyA9QWHaJMJzWNDvFBdtBMLgMDJvRw F4VTBvGQDrDS4MXbPhYLFkZwGuJAFzVDCtQZWobu2YvLNtaZsvju0BKCdQEf8XyBbiOVZ3VLpdMs6lyR NoTvXvWSKTJk2FxaXzDPTbAXPOJEviWECqOYu9STU2 SYksRRAlChA6YoAcW0B5HXMuVxEdIqVmUYOpMjB0SdOaYsihJNSeJkM7QYlnGmG5ToL2HJW5PPO4INA9 ZGU+HV2yDBk+Wc2Md6KotyZ2cbMpYAqaJnEnZZ1CFFPYM6TFVr== ID Date Data Source [id number] 06/03/2020 04:51:41 PM EDT [facility] Name Value Range Interpretation Code Description Data Estella rce(s) Supporting Document(s) URINE WBC (0-5) [facility] URINE RBC (0-2) [facility] EPITHELIAL CELLS 1+ [HPF] [facility] MUCUS 1+ [HPF] [facility] AMORPHOUS 1+ [HPF] [facility] ID Date Data Source [id number] 06/03/2020 04:34:04 PM EDT [facility] Name Value Range Interpretation Code Description Data Estella rce(s) Supporting Document(s) COLOR [facility] APPEARANCE [facility] SPEC GRAV URINE 1.023 (1.003-1.030) [facility] PH URINE 7.0 (5.0-7.5) [facility] LEUK ESTERASE (NEG) [facility] CRITERIA FOR CULTURE NOT MET.CULTURE CAN BE ADDED WITHIN 36 HOURS OFCOLLECTION. NITRITE URINE (NEG) [facility] PROTEIN URINE (NEG) [facility] GLUCOSE URINE (NEG) [facility] KETONE URINE (NEG) [facility] UROBILINOGEN 0.2 mg/dL (0-1.0) [facility] BILIRUBIN URINE (NEG) [facility] BLOOD/HGB URINE 2+ (NEG) A [facility] ID Date Data Source [id number] 06/03/2020 01:46:07 PM EDT [facility] Name Value Range Interpretation Code Description Data Estella rce(s) Supporting Document(s) WBC 14.2 10*3/uL (4.1-11.0) H [facility] RBC 4.12 10*6/uL (4.00-5.40) [facility] HGB 10.7 g/dL (12.0-16.0) L [facility] HCT 33.4 % (36.0-47.0) L [facility] MCV 81.1 fL (80.0-95.0) [facility] MCH 25.9 pg (27.0-32.0) L [facility] MCHC 32.0 g/dL (32.0-36.0) [facility] RDW 14.3 % (10.5-14.5) [facility] PLT 265 10*3/uL (150-450) [facility] MPV 8.9 fL (7.1-10.7) [facility] ID Date Data Source [id number] 06/03/2020 11:06:00 AM EDT [facility] Hackett, [place], [place] [address]PATIENT NAME: WINSOME AKERSDATE OF : 1990REPORT: CONSULTATIONPATIENT NUMBER: [id number] STATUS: IPMEDICAL RECORD NUMBER: [id number]: 02OB-GAMEROOM TECHNICIAN FLOOR CONSULTATIONDATE OF CONSULTATION: 06/02/2020OB/GAMEROOM TECHNICIAN floor consultation in a 29-year-old female withpregnancy complicated by IUGR and mood disorder.Dear Doctors and the staff of [address] [place] [address] BASKET [employer] BRAIDER, Ms. Winsome Akers wasseen by me on [...] therapy. For cognitive behavioral therapy, please call psychological [facility] [phone]. In terms of pharmacology, she will continue to benefit from Seroquel and Prozac. Additional recommendations include clonidine 0.3 mg p.o. q.h.s., Topamax 25 mg p.o. b.i.d. for 1-week and subsequently increase to 50 mg p.o. b.i.d. for mood dysregulation and possibly with neutrality precipitated by Seroquel and Prozac.If you have any questions, please call Dr. Hackett at [phone].DICTATED BY: Dana Hackett, MDDictated: 06/02/2020 15:31DT: 06/02/2020 15:38Job #: [id number]: [facility] computer generated reports are notconfirmed or authenticated unless they are signed by the providerElectronically Authenticated by:DANA HACKETT MD On 06/03/2020 11:06 AM EDT Name Value Range Interpretation Code Description Data Estella rce(s) Supporting Document(s) ID Date Data Source [id number] 06/01/2020 05:50:38 AM EDT [facility] Name Value Range Interpretation Code Description Data Estella rce(s) Supporting Document(s) WBC 13.8 10*3/uL (4.1-11.0) H [facility] RBC 3.81 10*6/uL (4.00-5.40) L [facility] HGB 10.0 g/dL (12.0-16.0) L [facility] HCT 30.5 % (36.0-47.0) L [facility] MCV 80.2 fL (80.0-95.0) [facility] MCH 26.3 pg (27.0-32.0) L [facility] MCHC 32.8 g/dL (32.0-36.0) [facility] RDW 14.2 % (10.5-14.5) [facility] PLT 204 10*3/uL (150-450) [facility] MPV 9.6 fL (7.1-10.7) [facility] ID Date Data Source [id number] 06/01/2020 04:13:07 PM EDT [facility] [place], [place] [address]Wat# SURGICAL PATHOLOGY REPORTPatient Name:JAMISON AKERSB:1990Received:05/31/2020Accession #:[id number](s) [...] 5.4 cm from the nearest margin. Appearance Lincoln-purple and glistening. Comments: The surface is purple- red and glistening and contains no focallesions. The maternal surface appears complete. The cut surfaces aresoft, red-purple and spongy. Sections are submitted for microscopicexamination. (4 blocks) *Note: Weight given is after formalin fixation. Post fixation weightsare higher than the true wet tissue weight. jglmls/daiProcessed at Laboratory [facility], [facility], Histopathology,[address] [place] [address], [id number]. Reported at [facility], [address] [place] [address], [facility].Reported: 06/01/2020Electronically Signed Out By Rajan Stokes M.D. [facility] [place] [address]This report may include immunohistochemical or in-situ hybridizationresults. Testing was developed and the performance characteristicsdetermined by [facility] as required by CLIA '88. The FDAhas determined that approval for specific use is not necessary forclinical use. The quality of Hematoxylin and Eosin stains and asapplicable, for all immunohistochemical and/or special stains, includingpositive and negative controls, were reviewed and considered appropriate.ICD codes: X50WCE9 codes: A: 81372Y Name Value Range Interpretation Code Description Data Estella rce(s) Supporting Document(s) ID Date Data Source [id number] 05/29/2020 12:38:00 PM EDT [facility] DATE OF EXAM: 05/29/2020ULTRASOUND PREGN [...] Doppler D7End of diagnostic report for accession: [id number] Interpreted: Norman Adam MDTranscribed: 05/29/2020 12:29 PMSigned: 05/29/2020 12:38 PM Norman Adam MD [facility] # [id number] BILL # [id number] Name Value Range Interpretation Code Description Data Estella rce(s) Supporting Document(s) ID Date Data Source [id number] 05/29/2020 12:38:00 PM EDT [facility] DATE OF EXAM: 05/29/2020ULTRASOUND PREGN ANT [...] Doppler D7End of diagnostic report for accession: [id number] Interpreted: Norman Adam MDTranscribed: 05/29/2020 12:29 PMSigned: 05/29/2020 12:38 PM Norman Adam MD [facility] # [id number] BILL # [id number] Name Value Range Interpretation Code Description Data Estella rce(s) Supporting Document(s) ID Date Data Source [id number] 05/28/2020 04:19:23 PM EDT [facility] Name Value Range Interpretation Code Description Data Estella rce(s) Supporting Document(s) APTT 23.4 s (22.0-34.3) [facility] ID Date Data Source [id number] 05/28/2020 04:19:23 PM EDT [facility] Name Value Range Interpretation Code Description Data Estella rce(s) Supporting Document(s) PT 10.5 s (9.2-11.9) [facility] INR 1.00 Lab [facility] SUGGESTED THERAPEUTIC RANGES USING INR F ORSTABILIZED ANTICOAGULATED PATIENTS:STANDARD DOSE THERAPY INR 2.0-3.0 DVT, PE, PREVENT DVT OR EMBOLISMHIGH DOSE THERAPY INR 2.5-3.5 PREVENT EMBOLISM FROM MECHANICAL HEART VALVE ID Date Data Source [id number] 05/28/2020 03:49:42 PM EDT [facility] SPECIMEN DESCRIPTION VAGINAL SPEC IMENRESULT NEGATIVE FOR GARDNERELLA VAGINALIS BY DNA PROBE NEGATIVE FOR TREASURE SPECIES BY DNA PROBE NEGATIVE FOR TRICHOMONAS VAGINALIS BY DNA PROBEPERFORMED AT [address] [address] REPORT STATUS FINAL 05/28/2020 Name Value Range Interpretation Code Description Data Estella rce(s) Supporting Document(s) ID Date Data Source [id number] 05/28/2020 02:41:00 PM EDT [facility] DATE OF EXAM: 05/28/2020EXAM: US B iophys Profile WO Stress Testing INDICATION: BPP 4/10 AT OFFICE AND DECREASED MOVEMENT Total score 6 /8. heart rate 138 bpm. Two points were removed from the score secondary to amniotic fluid. Exam duration 26 minutes. IMPRESSION: 6/8 Biophysical Profile, two points decreased because of amniotic fluid. Professional interpretation performed at [facility] .End of diagnostic report for accession: [id number] Interpreted: Rajan Moreno MDTranscribed: 05/28/2020 02:39 PMSigned: 05/28/2020 02:41 PM Rajan Moreno MD --- [facility] # [id number] BILL # [id number] Name Value Range Interpretation Code Description Data Estella rce(s) Supporting Document(s) ID Date Data Source [id number] 05/28/2020 01:40:00 PM EDT [facility] Name Value Range Interpretation Code Description Data Estella rce(s) Supporting Document(s) SARS coronavirus 2 RNA [Presence] in Res piratory specimen by PATIENCE with probe detection [facility] This lab was reported by [facility]. ID Date Data Source [id number] 05/28/2020 04:28:12 PM EDT [facility] Name Value Range Interpretation Code Description Data Estella rce(s) Supporting Document(s) SPECIMEN DESCRIPTION [facility] COVID19 RESULT (NDET) [facility] THIS ASSAY AMPLIFIES AND DETECTSTHE TARG ET RNA USING REAL-TIME PCR.NEGATIVE 2019_NCOV RT-PCR RESULTS DONOT PRECLUDE 2019_NCOV INFECTION ANDSHOULD NOT BE USED THE SOLE BASISFOR PATIENT MANAGEMENT DECISIONS. COMMENT [facility] UNDER AN EMERGENCY USE AUTHORIZATION(EUA ) FOR THE DETECTION AND/OR DIAGNOSISOF THE VIRUS THAT CAUSES COVID-19.EMAILED RESULTS TO IC AT 1968 ON [id number]. [address] ID Date Data Source [id number] 06/01/2020 04:51:19 AM EDT [facility] SPEC EXP DATE 05/31/2020PATI ENT ABO/Rh O POSITIVEANTIBODY SCREEN NEGATIVETESTING SITE PERFORMED AT [address] COMMENT BLOOD TYPE CONFIRMED.UNIT NUMBER [id number] COMPONENT TYPE LEUKOPOOR RED CELLSUNIT DIVISION 00STATUS OF UNIT REL FROM ALLOCTRANSFUSION STATUS OK TO TRANSFUSECROSSMATCH RESULT COMPATIBLEUNIT NUMBER [id number] COMPONENT TYPE LEUKOPOOR RED CELLSUNIT DIVISION 00STATUS OF UNIT REL F ROM ALLOCTRANSFUSION STATUS OK TO TRANSFUSECROSSMATCH RESULT COMPATIBLE Name Value Range Interpretation Code Description Data Estella rce(s) Supporting Document(s) ID Date Data Source [id number] 05/28/2020 05:53:01 PM EDT [facility] Name Value Range Interpretation Code Description Data Estella rce(s) Supporting Document(s) TREPONEMA IGG/IGM @ (NEG) [facility] ID Date Data Source [id number] 05/28/2020 03:53:43 PM EDT [facility] Name Value Range Interpretation Code Description Data Estella rce(s) Supporting Document(s) LDH 126 U/L (84-246) [facility] ID Date Data Source [id number] 05/28/2020 03:53:43 PM EDT [facility] Name Value Range Interpretation Code Description Data Estella rce(s) Supporting Document(s) URIC ACID 4.6 mg/dL (2.6-6.0) [facility] ID Date Data Source [id number] 05/28/2020 03:53:43 PM EDT [facility] Name Value Range Interpretation Code Description Data Estella rce(s) Supporting Document(s) SODIUM 139 mmol/L (136-145) [facility] POTASSIUM 3.7 mmol/L (3.6-5.2) [facility] CHLORIDE 109 mmol/L (100-108) H [facility] CO2 23 mmol/L (22-31) [facility] ANION GAP 7 mmol/L (7-16) [facility] UREA NITROGEN 5 mg/dL (7-24) L [facility] CREATININE 0.47 mg/dL (0.60-1.00) L [facility] BUN/CREAT RATIO 10.6 RATIO (10.0-20.0) [facility] GLUCOSE 101 mg/dL (70-99) H [facility] CALCIUM 8.9 mg/dL (8.4-10.2) [facility] TOTAL PROTEIN 6.1 g/dL (6.4-8.2) L [facility] ALBUMIN 2.6 g/dL (3.5-4.6) L [facility] GLOBULIN 3.5 g/dL (2.7-4.3) [facility] ALB/GLOB RATIO 0.7 RATIO [facility] ALKALINE PHOSPHATASE 259 U/L (45-117) H [facility] BILIRUBIN,TOTAL 0.2 mg/dL (0.0-1.0) [facility] PLEASE NOTE:Total bilirubin results may be falselyelevated in patients taking Eltrombopag. AST (SGOT) 29 U/L (11-39) [facility] ALT (SGPT) 68 U/L (12-78) [facility] GFR >60 ml/min/1.73m2 (>59) [facility] GFR ( AMER) >60 ml/min/1.73m2 (>59) [facility] GFR INTERPRETATION [facility] --NORMAL KIDNEY FUNCTION OR MILD DISEASE - GFR >OR= 60CHRONIC KIDNEY DISEASE - GFR 15 - 59RENAL FAILURE - GFR <15 Est. GFR calculation based on the MDRDstudy equation, which assumes a steadystate for creatinine. Est. GFR should notbe used for medication dosing. ID Date Data Source [id number] 05/28/2020 01:42:40 PM EDT [facility] Name Value Range Interpretation Code Description Data Estella rce(s) Supporting Document(s) WBC 10.9 10*3/uL (4.1-11.0) [facility] RBC 4.13 10*6/uL (4.00-5.40) [facility] HGB 10.7 g/dL (12.0-16.0) L [facility] HCT 33.3 % (36.0-47.0) L [facility] MCV 80.5 fL (80.0-95.0) [facility] MCH 26.0 pg (27.0-32.0) L [facility] MCHC 32.3 g/dL (32.0-36.0) [facility] RDW 13.9 % (10.5-14.5) [facility] PLT 246 10*3/uL (150-450) [facility] MPV 9.0 fL (7.1-10.7) [facility] ID Date Data Source [id number] 05/28/2020 01:43:42 PM EDT [facility] Name Value Range Interpretation Code Description Data Estella rce(s) Supporting Document(s) COLOR [facility] APPEARANCE [facility] SPEC GRAV URINE 1.010 (1.003-1.030) [facility] PH URINE 6.0 (5.0-7.5) [facility] LEUK ESTERASE (NEG) [facility] CRITERIA FOR CULTURE NOT MET.CULTURE CAN BE ADDED WITHIN 36 HOURS OFCOLLECTION. NITRITE URINE (NEG) [facility] PROTEIN URINE (NEG) [facility] GLUCOSE URINE (NEG) [facility] KETONE URINE (NEG) [facility] UROBILINOGEN 0.2 mg/dL (0-1.0) [facility] BILIRUBIN URINE (NEG) [facility] BLOOD/HGB URINE (NEG) [facility] ID Date Data Source [id number] 05/28/2020 11:35:41 AM EDT [facility] Name Value Range Interpretation Code Description Data Estella rce(s) Supporting Document(s) Progress Note [facility] QUAOXx1bGoWDNqPh38/JFZekMJOum7FiIJppAUh8JNqwWQZdS3MxSLQ1aF3hHPK4WHePSyAuRqMiRoG6 lbm [file] veQwj8TMGzMSJ4NlLiF0H8X4YoZSE0WgHvKB8JIc1WIlS3TGJ0gLBgUn5OFtOgXMEDEvXoQH5BFYe= ID Date Data Source [id number] 05/28/2020 09:57:36 AM EDT [facility] Name Value Range Interpretation Code Description Data Estella rce(s) Supporting Document(s) Color of Urine [facility] Clarity of Urine [facility] Glucose [Mass/volume] in Urine by Test strip Negative [facility] Bilirubin.total [Presence] in Urine by Test strip [facility] Ketones [Mass/volume] in Urine by Test strip [facility] Specific gravity of Urine by Test strip 1.020 1.005-1.025 [facility] Hemoglobin [Presence] in Urine by Test strip [facility] pH of Urine by Test strip 6.0 5.0-8.0 [facility] Protein [Mass/volume] in Urine by Test strip Negative [facility] Urobilinogen [Units/volume] in Urine by Test strip 0.2 {Ehrlich_U}/ dL 0.2-1.0 [facility] Nitrite [Presence] in Urine by Test strip Negative [facility] Leukocyte esterase [Presence] in Urine by Test strip Negat socrates [facility] ID Date Data Source [id number] 05/25/2020 06:28:00 PM EDT [facility] DATE OF EXAM: 05/25/2020EXAM: Ultrasound [...] weeks one day. Professional interpretation performed at [facility] [phone].End of diagnostic report for accession: [id number] Interpreted: Benedict Dickens MDTranscribed: 05/25/2020 06:22 PMSigned: 05/25/2020 06:28 PM Benedict Dickens MD [facility] # [id number] BILL # [id number] Name Value Range Interpretation Code Description Data Estella rce(s) Supporting Document(s) ID Date Data Source [id number] 05/25/2020 05:52:59 PM EDT [facility] SPEC EXP DATE 05/28/2020PATI ENT ABO/Rh O POSITIVEANTIBODY SCREEN NEGATIVETESTING SITE PERFORMED AT [address] [place] [address] BANK COMMENT BLOOD TYPE CONFIRMED. Name Value Range Interpretation Code Description Data Estella rce(s) Supporting Document(s) ID Date Data Source [id number] 05/25/2020 05:25:59 PM EDT [facility] Name Value Range Interpretation Code Description Data Estella rce(s) Supporting Document(s) TOTAL PROTEIN 7.6 g/dL (6.4-8.2) [facility] ALBUMIN 2.9 g/dL (3.5-4.6) L [facility] GLOBULIN 4.7 g/dL (2.7-4.3) H [facility] ALB/GLOB RATIO 0.6 RATIO [facility] BILIRUBIN,TOTAL 0.3 mg/dL (0.0-1.0) [facility] PLEASE NOTE:Total bilirubin results may be falselyelevated in patients taking Eltrombopag. BILIRUBIN,CONJUGATED 0.1 mg/dL (0.0-0.3) [facility] BILIRUBIN,UNCONJ. 0.2 mg/dL (0.0-0.7) [facility] ALKALINE PHOSPHATASE 263 U/L (45-117) H [facility] AST (SGOT) 32 U/L (11-39) [facility] ALT (SGPT) 50 U/L (12-78) [facility] ID Date Data Source [id number] 05/25/2020 05:25:59 PM EDT [facility] Name Value Range Interpretation Code Description Data Estella rce(s) Supporting Document(s) LDH 146 U/L (84-246) [facility] ID Date Data Source [id number] 05/25/2020 05:25:20 PM EDT [facility] Name Value Range Interpretation Code Description Data Estella rce(s) Supporting Document(s) URIC ACID 5.4 mg/dL (2.6-6.0) [facility] ID Date Data Source [id number] 05/25/2020 05:25:20 PM EDT [facility] Name Value Range Interpretation Code Description Data Estella rce(s) Supporting Document(s) SODIUM 138 mmol/L (136-145) [facility] POTASSIUM 3.4 mmol/L (3.6-5.2) L [facility] CHLORIDE 108 mmol/L (100-108) [facility] CO2 21 mmol/L (22-31) L [facility] ANION GAP 9 mmol/L (7-16) [facility] UREA NITROGEN 7 mg/dL (7-24) [facility] CREATININE 0.62 mg/dL (0.60-1.00) [facility] BUN/CREAT RATIO 11.3 RATIO (10.0-20.0) [facility] GLUCOSE 128 mg/dL (70-99) H [facility] CALCIUM 9.3 mg/dL (8.4-10.2) [facility] GFR >60 ml/min/1.73m2 (>59) [facility] GFR ( AMER) >60 ml/min/1.73m2 (>59) [facility] GFR INTERPRETATION [facility] --NORMAL KIDNEY FUNCTION OR MILD DISEASE - GFR >OR= 60CHRONIC KIDNEY DISEASE - GFR 15 - 59RENAL FAILURE - GFR <15 Est. GFR calculation based on the MDRDstudy equation, which assumes a steadystate for creatinine. Est. GFR should notbe used for medication dosing. ID Date Data Source [id number] 05/25/2020 05:19:58 PM EDT [facility] Name Value Range Interpretation Code Description Data Estella rce(s) Supporting Document(s) PT 10.5 s (9.2-11.9) [facility] PERFOR[facility] AT [address] [place] [id number] INR 1.00 [facility] SUGGESTED THERAPEUTIC RANGES USING INR F ORSTABILIZED ANTICOAGULATED PATIENTS:STANDARD DOSE THERAPY INR 2.0-3.0 DVT, PE, PREVENT DVT OR EMBOLISMHIGH DOSE THERAPY INR 2.5-3.5 PREVENT EMBOLISM FROM MECHANICAL HEART VALVE ID Date Data Source [id number] 05/25/2020 05:10:50 PM EDT [facility] Name Value Range Interpretation Code Description Data Estella rce(s) Supporting Document(s) WBC 16.5 10*3/uL (4.1-11.0) H [facility] RBC 4.62 10*6/uL (4.00-5.40) [facility] HGB 11.8 g/dL (12.0-16.0) L [facility] HCT 37.2 % (36.0-47.0) [facility] MCV 80.5 fL (80.0-95.0) [facility] MCH 25.4 pg (27.0-32.0) L [facility] MCHC 31.6 g/dL (32.0-36.0) L [facility] RDW 13.9 % (10.5-14.5) Lab [facility] PLT 299 10*3/uL (150-450) [facility] MPV 9.0 fL (7.1-10.7) [facility] NEUT % 75.4 % (35.0-75.0) H [facility] LYMPH % 17.5 % (16.0-52.0) [facility] MONO % 6.0 % (0.0-8.0) [facility] EOS % 0.7 % (0.0-5.0) [facility] BASO % 0.4 % (0.0-4.0) [facility] NEUT # 12.5 10*3/uL (1.8-7.7) H [facility] LYMPH # 2.9 10*3/uL (1.2-4.8) [facility] MONO # 1.0 10*3/uL (0.0-0.8) H [facility] Eosinophils [#/volume] in Blood by Automated count 0.1 10*3/uL (0.0-0 .5) [facility] BASO # 0.1 10*3/uL (0.0-0.2) [facility] ID Date Data Source [id number] 05/25/2020 02:51:47 PM EDT [facility], PCName: Winsome OswaldB: 1990Provider: Abdoulaye Guerrero: 05/25/2020 AssessmentHistory of Present [...] in the office. Indication: pain/dysfunction.); Status:Complete; Done: [id number] Perform:SOS28; Due:11Evp3897; Last Updated By:Gabriella Jean; 05/25/2020 1:59:53 PM;Ordered; For:Right ankle pain; Ordered By:Richard Guerrero;Weight Bearing Status : Weight bearingLaterality: : Right 2. X-Ray I Foot - 3 views (XRays were ordered, obtained and interpreted today in the office. Indication: pain/dysfunction.); Status:Complete; Done: [id number] Perform:SOS28; Due:92Gtd6496; Last Updated By:Gabriella Jean; 05/25/2020 2:24:46 PM;Ordered; For:Right ankle pain; Ordered By:Richard Guerrero;Weight Bearing Status : Weight bearingLaterality: : Right 3. Work Note (SOS) Treatment Treatment Status: Complete Done: [id number] Ordered;For: Health Maintenance; Ordered By: Richard Guerrero Performed: Due: 32Phe0088; Last Updated By: Kristina Cerda; 05/25/2020 2:44:19 PMSeen Today for Evaluation and Treatment : The patient was seen today in the office for evaluation and treatment. Signatures Electronically signed by : Richard Guerrero M.D.; May 25 2020 2:51PM EST (Author) Name Value Range Interpretation Code Description Data Estella rce(s) Supporting Document(s) ID Date Data Source [id number] 05/18/2020 11:47:42 PM EDT [facility] Name Value Range Interpretation Code Description Data Estella rce(s) Supporting Document(s) POC GLUCOSE 107 mg/dL (70-99) H [facility] PERFORMED BY CLINICAL STAFF ID Date Data Source [id number] 05/18/2020 05:48:57 PM EDT [facility] Name Value Range Interpretation Code Description Data Estella rce(s) Supporting Document(s) POC GLUCOSE 105 mg/dL (70-99) H [facility] PERFORMED BY CLINICAL STAFF ID Date Data Source [id number] 05/18/2020 12:31:15 PM EDT [facility] Name Value Range Interpretation Code Description Data Estella rce(s) Supporting Document(s) POC GLUCOSE 131 mg/dL (70-99) H [facility] PERFORMED BY CLINICAL STAFF ID Date Data Source [id number] 05/18/2020 07:32:27 AM EDT [facility] Name Value Range Interpretation Code Description Data Estella rce(s) Supporting Document(s) POC GLUCOSE 92 mg/dL (70-99) [facility] PERFORMED BY CLINICAL STAFF ID Date Data Source [id number] 05/18/2020 06:31:01 AM EDT [facility] SPEC EXP DATE 05/21/2020PATI ENT ABO/Rh O POSITIVEANTIBODY SCREEN NEGATIVETESTING SITE PERFORMED AT [address] [place] [address] BANK COMMENT BLOOD TYPE CONFIRMED. Name Value Range Interpretation Code Description Data Estella rce(s) Supporting Document(s) ID Date Data Source [id number] 05/17/2020 10:53:52 PM EDT [facility] Name Value Range Interpretation Code Description Data Estella rce(s) Supporting Document(s) POC GLUCOSE 130 mg/dL (70-99) H [facility] PERFORMED BY CLINICAL STAFF ID Date Data Source [id number] 05/17/2020 05:57:16 PM EDT [facility] Name Value Range Interpretation Code Description Data Estella rce(s) Supporting Document(s) POC GLUCOSE 130 mg/dL (70-99) H [facility] PERFORMED BY CLINICAL STAFF ID Date Data Source [id number] 07/08/2020 12:37:00 PM EDT [facility] [place] [address] [place], [place] [address]PATIENT NAME: WINSOME AKERSDATE OF : 1990REPORT: CONSULTATIONPATIENT NUMBER: [id number] STATUS: IPMEDICAL RECORD NUMBER: [id number]: [address] [place] [address] CONSULTATIONDATE OF CONSULTATION: 05/17/2020CHIEF COMPLAINT: Headaches of [...] and tone.Sensory: Normal to all modalities.Cerebellar: Normal jncfsf-bi-xeoh, rapid alternating movement. DTRs +2equal and symmetric [...] MDDictated: 0 05/17/2020 13:06DT: 05/17/2020 13:09Job #: [id number]: [facility] computer generated reports are notconfirmed or authenticated unless they are signed by the providerElectronically Authenticated by:ISMAEL SUAREZ MD On 07/08/2020 12:37 PM EDT Name Value Range Interpretation Code Description Data Estella rce(s) Supporting Document(s) ID Date Data Source [id number] 05/17/2020 03:17:36 PM EDT [facility] Name Value Range Interpretation Code Description Data Estella rce(s) Supporting Document(s) KEPPRA @ 25 ug/mL (5-30) [facility] ID Date Data Source [id number] 05/17/2020 06:41:37 AM EDT [facility] Name Value Range Interpretation Code Description Data Estella rce(s) Supporting Document(s) SODIUM 138 mmol/L (136-145) [facility] POTASSIUM 4.0 mmol/L (3.6-5.2) [facility] CHLORIDE 108 mmol/L (100-108) [facility] CO2 23 mmol/L (22-31) [facility] ANION GAP 7 mmol/L (7-16) [facility] UREA NITROGEN 7 mg/dL (7-24) [facility] CREATININE 0.56 mg/dL (0.60-1.00) L [facility] BUN/CREAT RATIO 12.5 RATIO (10.0-20.0) [facility] GLUCOSE 122 mg/dL (70-99) H [facility] CALCIUM 8.9 mg/dL (8.4-10.2) [facility] TOTAL PROTEIN 6.1 g/dL (6.4-8.2) L [facility] ALBUMIN 2.5 g/dL (3.5-4.6) L [facility] GLOBULIN 3.6 g/dL (2.7-4.3) [facility] ALB/GLOB RATIO 0.7 RATIO [facility] ALKALINE PHOSPHATASE 198 U/L (45-117) H [facility] BILIRUBIN,TOTAL 0.2 mg/dL (0.0-1.0) [facility] PLEASE NOTE:Total bilirubin results may be falselyelevated in patients taking Eltrombopag. AST (SGOT) 11 U/L (11-39) [facility] ALT (SGPT) 30 U/L (12-78) [facility] GFR >60 ml/min/1.73m2 (>59) [facility] GFR ( AMER) >60 ml/min/1.73m2 (>59) [facility] GFR INTERPRETATION [facility] --NORMAL KIDNEY FUNCTION OR MILD DISEASE - GFR >OR= 60CHRONIC KIDNEY DISEASE - GFR 15 - 59RENAL FAILURE - GFR <15 Est. GFR calculation based on the MDRDstudy equation, which assumes a steadystate for creatinine. Est. GFR should notbe used for medication dosing. ID Date Data Source [id number] 05/17/2020 06:41:37 AM EDT [facility] Name Value Range Interpretation Code Description Data Estella rce(s) Supporting Document(s) LDH 113 U/L (84-246) [facility] ID Date Data Source [id number] 05/17/2020 06:41:37 AM EDT [facility] Name Value Range Interpretation Code Description Data Estella rce(s) Supporting Document(s) URIC ACID 4.9 mg/dL (2.6-6.0) [facility] ID Date Data Source [id number] 05/17/2020 06:17:54 AM EDT [facility] Name Value Range Interpretation Code Description Data Estella rce(s) Supporting Document(s) WBC 16.6 10*3/uL (4.1-11.0) H [facility] RBC 3.94 10*6/uL (4.00-5.40) L [facility] HGB 10.2 g/dL (12.0-16.0) L [facility] HCT 31.7 % (36.0-47.0) L [facility] MCV 80.4 fL (80.0-95.0) [facility] MCH 25.9 pg (27.0-32.0) L [facility] MCHC 32.2 g/dL (32.0-36.0) [facility] RDW 13.9 % (10.5-14.5) [facility] PLT 228 10*3/uL (150-450) [facility] MPV 9.2 fL (7.1-10.7) [facility] ID Date Data Source [id number] 05/16/2020 01:38:17 PM EDT [facility] Name Value Range Interpretation Code Description Data Estella rce(s) Supporting Document(s) URIC ACID 5.4 mg/dL (2.6-6.0) [facility] ID Date Data Source [id number] 05/16/2020 01:38:17 PM EDT [facility] Name Value Range Interpretation Code Description Data Estella rce(s) Supporting Document(s) MAGNESIUM 2.2 mg/dL (1.7-2.4) [facility] ID Date Data Source [id number] 05/16/2020 01:38:17 PM EDT [facility] Name Value Range Interpretation Code Description Data Estella rce(s) Supporting Document(s) LDH 129 U/L (84-246) [facility] ID Date Data Source [id number] 05/16/2020 01:38:17 PM EDT [facility] Name Value Range Interpretation Code Description Data Estella rce(s) Supporting Document(s) SODIUM 139 mmol/L (136-145) [facility] POTASSIUM 3.8 mmol/L (3.6-5.2) [facility] CHLORIDE 109 mmol/L (100-108) H [facility] CO2 23 mmol/L (22-31) [facility] ANION GAP 7 mmol/L (7-16) [facility] UREA NITROGEN 4 mg/dL (7-24) L [facility] CREATININE 0.58 mg/dL (0.60-1.00) L [facility] BUN/CREAT RATIO 6.9 RATIO (10.0-20.0) L [facility] GLUCOSE 127 mg/dL (70-99) H [facility] CALCIUM 8.9 mg/dL (8.4-10.2) [facility] TOTAL PROTEIN 6.4 g/dL (6.4-8.2) [facility] ALBUMIN 2.8 g/dL (3.5-4.6) L [facility] GLOBULIN 3.6 g/dL (2.7-4.3) [facility] ALB/GLOB RATIO 0.8 RATIO [facility] ALKALINE PHOSPHATASE 214 U/L (45-117) H [facility] BILIRUBIN,TOTAL 0.3 mg/dL (0.0-1.0) [facility] PLEASE NOTE:Total bilirubin results may be falselyelevated in patients taking Eltrombopag. AST (SGOT) 20 U/L (11-39) [facility] ALT (SGPT) 30 U/L (12-78) [facility] GFR >60 ml/min/1.73m2 (>59) [facility] GFR ( AMER) >60 ml/min/1.73m2 (>59) [facility] GFR INTERPRETATION [facility] --NORMAL KIDNEY FUNCTION OR MILD DISEASE - GFR >OR= 60CHRONIC KIDNEY DISEASE - GFR 15 - 59RENAL FAILURE - GFR <15 Est. GFR calculation based on the MDRDstudy equation, which assumes a steadystate for creatinine. Est. GFR should notbe used for medication dosing. ID Date Data Source [id number] 05/16/2020 01:04:28 PM EDT [facility] Name Value Range Interpretation Code Description Data Estella rce(s) Supporting Document(s) WBC 15.1 10*3/uL (4.1-11.0) H [facility] RBC 4.24 10*6/uL (4.00-5.40) [facility] HGB 11.0 g/dL (12.0-16.0) L [facility] HCT 34.1 % (36.0-47.0) L [facility] MCV 80.4 fL (80.0-95.0) [facility] MCH 26.0 pg (27.0-32.0) L [facility] MCHC 32.3 g/dL (32.0-36.0) [facility] RDW 14.0 % (10.5-14.5) [facility] PLT 256 10*3/uL (150-450) [facility] MPV 9.1 fL (7.1-10.7) [facility] ID Date Data Source [id number] 05/15/2020 02:18:26 PM EDT [facility] Name Value Range Interpretation Code Description Data Estella rce(s) Supporting Document(s) URIC ACID 4.1 mg/dL (2.6-6.0) [facility] ID Date Data Source [id number] 05/15/2020 02:18:26 PM EDT [facility] Name Value Range Interpretation Code Description Data Estella rce(s) Supporting Document(s) SODIUM 140 mmol/L (136-145) [facility] POTASSIUM 4.1 mmol/L (3.6-5.2) [facility] CHLORIDE 109 mmol/L (100-108) H [facility] CO2 25 mmol/L (22-31) [facility] ANION GAP 6 mmol/L (7-16) L [facility] UREA NITROGEN 6 mg/dL (7-24) L [facility] CREATININE 0.48 mg/dL (0.60-1.00) L [facility] BUN/CREAT RATIO 12.5 RATIO (10.0-20.0) [facility] GLUCOSE 109 mg/dL (70-99) H [facility] CALCIUM 8.8 mg/dL (8.4-10.2) [facility] TOTAL PROTEIN 6.0 g/dL (6.4-8.2) L [facility] ALBUMIN 2.5 g/dL (3.5-4.6) L [facility] GLOBULIN 3.5 g/dL (2.7-4.3) [facility] ALB/GLOB RATIO 0.7 RATIO [facility] ALKALINE PHOSPHATASE 197 U/L (45-117) H [facility] BILIRUBIN,TOTAL 0.2 mg/dL (0.0-1.0) [facility] PLEASE NOTE:Total bilirubin results may be falselyelevated in patients taking Eltrombopag. AST (SGOT) 20 U/L (11-39) [facility] ALT (SGPT) 30 U/L (12-78) [facility] GFR >60 ml/min/1.73m2 (>59) [facility] GFR ( AMER) >60 ml/min/1.73m2 (>59) [facility] GFR INTERPRETATION [facility] --NORMAL KIDNEY FUNCTION OR MILD DISEASE - GFR >OR= 60CHRONIC KIDNEY DISEASE - GFR 15 - 59RENAL FAILURE - GFR <15 Est. GFR calculation based on the MDRDstudy equation, which assumes a steadystate for creatinine. Est. GFR should notbe used for medication dosing. ID Date Data Source [id number] 05/15/2020 02:18:26 PM EDT [facility] Name Value Range Interpretation Code Description Data Estella e(s) Supporting Document(s) LDH 277 U/L (84-246) H [facility] ID Date Data Source [id number] 05/15/2020 01:48:48 PM EDT [facility] Name Value Range Interpretation Code Description Data Estella rce(s) Supporting Document(s) WBC 15.6 10*3/uL (4.1-11.0) H [facility] RBC 4.02 10*6/uL (4.00-5.40) [facility] HGB 10.3 g/dL (12.0-16.0) L [facility] HCT 32.0 % (36.0-47.0) L [facility] MCV 79.7 fL (80.0-95.0) L [facility] MCH 25.6 pg (27.0-32.0) L [facility] MCHC 32.1 g/dL (32.0-36.0) [facility] RDW 14.0 % (10.5-14.5) [facility] PLT 242 10*3/uL (150-450) [facility] MPV 8.8 fL (7.1-10.7) [facility] ID Date Data Source [id number] 05/14/2020 08:30:00 PM EDT [facility] Name Value Range Interpretation Code Description Data Estella rce(s) Supporting Document(s) SARS coronavirus 2 RNA [Presence] in Res piratory specimen by PATIENCE with probe detection Lab [facility] This lab was reported by [facility]. ID Date Data Source [id number] 05/14/2020 11:11:08 PM EDT [facility] Name Value Range Interpretation Code Description Data Estella rce(s) Supporting Document(s) SPECIMEN DESCRIPTION [facility] COVID19 RESULT (NDET) Lab [facility] THIS ASSAY AMPLIFIES AND DETECTSTHE TARG ET RNA USING REAL-TIME PCR.NEGATIVE 2019_NCOV RT-PCR RESULTS DONOT PRECLUDE 2019_NCOV INFECTION ANDSHOULD NOT BE USED THE SOLE BASISFOR PATIENT MANAGEMENT DECISIONS. COMMENT [facility] UNDER AN EMERGENCY USE AUTHORIZATION(EUA ) FOR THE DETECTION AND/OR DIAGNOSISOF THE VIRUS THAT CAUSES COVID-19.EMAILED RESULTS TO IC AT 3088 ON 719367. [id number] ID Date Data Source [id number] 05/14/2020 05:57:17 PM EDT [facility] Name Value Range Interpretation Code Description Data Estella rce(s) Supporting Document(s) MUSE EKG PDF encoded [facility] LUPEJx4pJgQCSwJaw7CrJhAiBHDgBG7oihm3O0D6pYTsS9KhuBMfr5joU7JhG7QkBRAhWKQTLK2RvRNw jb2 [file] [id number]sDnvJ4id1e8P7ck 2d5Ieib7i5Zenv8ekCcit7q06agv6j64kfe7699gde04p9azT29s5eFmdDdwS1NY4OdyqjGtvs75MPYe xqe0z4P83ZiJy8yCMs3kUfsrZ0RF0oTv2myl2wT6ag7xxhei0Qa2v57dpnqw7Qw3r88saix0fjBUhu3t aTExl1rx0esc2cv7pwh15v9jjg24x4or775s9qI4r5 d1fq5h5X3iz9siZqmn4uhJKdz8omDByZ1s0IBti7n44NfSEnwysoWkZBFGs/wf/1CsL7255Y/+J85dRv z30pnrD//dfvn7/CfiL83Z/KcOx1xjH+/Sn19sK3Fj5r9DW7f7K/mSx9I7f5Bg61K4/k+sHaTi33phUX /DIOv/k6b+aLX543T8Pqjlw6xALLUixePPHdIA0y9m Mf5VrrSdGN8/LHMfimLn2qIyz/ddJll+qMYiVghvRwW6gIwvivW4r6uB3dlB/nhQBv/9V1m++8x87wpY /vu+5sl/39cykM+4bnKpzSIbjKs9zkR5tS/A8Ib1Vu1Wy0G/wd/gH/BP8+bjxRbgj63863ezUz+b7zLl QRl8vO+f2Uk5Wg5Pv+A7+A7+An+BH++ygE0xaiGnjG Og3Hx9+jtqft/bzzlm2LD1c3sehZ+OKT6QojEI+3Z6AeHixiGRa6YpLab389v9tY4I/nOs3hwa92/cfI r2cldrkjvnyqDpH0tjz/s+rS26j52Vv/u5ZbSWRdz5/fu+ngOeltHpvc1dNJ7Ls/tijx2cyLxLxU4RV2 PcsSoPb5ZdR2iB/vu+EGX2NYo5P+PzOL0npUHH5GQ0 Zy4MV1MZtKpc54G05U81GG5mOj4Oe9Dpf5obbqPaJi+xfqBvacBa6ukLYp/AF/An+BN87e+h7T8A4GzF 1uNneY+7HwN0kyb4Vj3Gk1Hx57Hg/J70LZYO9sxqrchHZ79pyz/W0Sn7kdbX0nI7j7Ki4O/wF/z8X508 05l9xzwnqjagcX/B+m8947W2Zehdt/x44lfyqB6k5/ Ro/ezJ4Ii21tXpfH+34z0OT+3IbTfBU2DEgbLD6W/we/1Z6YQ2p7ya4iZg5mL/kgZxmF19adqN+ddWlu I5G5Afq9/0PQbzp60oj/rIxRNey0w6Mkr/3jdiBsZZzO/eeN88i/XE+6jIL2jO1945uEWn37wxo1eUB4 VcL7g+6kaRVmz6NoGxu+K10i4Bcy+2BxoiijtV2hxw 8+RpRJ3nPLs2dSz2PH2b4IpThBT2phTqi3/1gr8GDP/cJZCvJOWrjGQO+JxYdlvm1cC6Mla2AnHv+Aa+ ge+ox7//tjS4cfpvoksl/uE4XtlfRiYzQg7RfT3x+eWXd+w5hu7gKGKuI1/U2080yZdq2/DbMJ4y3oeS vzyx4/zM3PzrpxOtpleeoSNb69izca1kggOLaqZMp2 a4frN/cruWV+mfPL/F6iOBF2f3pD14SqmkAfNPhM3d/9aboyjVQ07wRoUBgXMGkoqvfWMREaHRB/ByoX j1hVXG/7/60WM4yg/7ZP+EfDXKIh/6glxPor/mun4x2h2y01p8q+C5rCwo965rQkMl2OzWId2u7svx6/ J72cXGROQoZ+2xdtNIMhVkJG7Hvkud3P8Ow6Ijape8 4usfnCX9i2Xxrp/jXGSXwV/kRwpHx61dANAvM/BP80O++dani32KFyWudy66/P20fVja3/syNV2phyof 430d7+t4X1/x42865WV9/FgkyvlDNT4mW9WWc4g2hmtp+F3u4oE93cpAN03gbRaMB/TAdYHw8Njd9iNk q5wvq/TWUa9tUKpCws8Q9hg4H+ydyqgU5MgdolS1ex +C3xkInZrA38dfG9XJRC+ox8DH/yjlqzzNHPJVyipxsvGuabv1/TjXWLJKHGu8/77d+kIcarzl0/pCHG m8/83T+kIcaLxrRchXmubGg/9vyFdfGXwFP/6/da+lPiYmfNamgU8PyMAnndmY+2D3isv4/fdnylfRVz Plq+sEotLCCl0zAmkH/2K4ya5UoSfxflbKR4+ygq+4 8dFQWRq83Dul4TeM1/IFmIou6ep+56Rsv9h/iudmodz5nJ3Wsy8DmOoy6/cLHRJ9sto+gm/gG/gOvoO/ wF94/o3nx/uO/h/F3sW6Jt7s3bW3uqh9n+AL+DD332E1R9nC6Wbdvb4jBb0d6FmlJF6QeaW5n40/cQ6x yz0+Q766/APzT8SXbzO0IWBduUdaAQnJkfDabq8Xdd +4iRnBgSH5cgvpm44p8xEdrmi3RLp7Eq76+ESk43qy5Skv8GKtz16TKf2flaz9Wpk8hPyD/tVXBl/AF/ Bn1x/u0D79oeXKHZt4cWmAktqP4k+EUYpCyP1kuexU/nu8fxBO41a6fuTnNg0gYkhU+u80zN/av6pyj+ oLu0WyfHbnWA4TxmWn+Lp345kWE6lNvt//5ZnylSV/ JFlHb0Xo1P/U0/uTs+SrKvdzpnwV//vnB6u8DJ1mqKqFRyo/9Mb74uFgvQ4ijR0Cww5vG94LAwF2eljL GH29mwv+x0xBIbwUzup+vry6r4IZ05owupr5rs+Q1u5i3RNGdGVD87agY68altlRu4eCBuCXEd772yzl 0ZUVMYGfTPnQGvP3jE+R/MqiW8JZezyCfqqau66+e9 iIe934Rnmf7MT5EPtatRU+7cal1ph5XlgLkLfC89fhL5NxSXqn6uxFuLSY5Bn2/I0yw6TGyMtVYu2cPZ LyVdSP/onG0nOM196265kfH74y++0z5at8/n100NdpN9yczBlzcu58lwb+VZU36t/P7fIoSfqmcrr4A4 pNvmzD5mx7Box+OsmoyOzKBF1vhVL/372K+vG+x3C9 oX4HH/Z2NV6nyX+xhz1x5bxrrP+AH46b7spa+TD5ns3uaer7/L6cfdc0jazDKIywLeVT4cDH8j/K4C/w F/gb/A3+Qbstb+hoeUNTvqryAH+A3/FFzo0RSrnUSB7o9SktxK+ro/RMTM0f1Iv4F3G+tOJn0su36B4i DvB1+fvvx/D4Aarqkc0sSyLRN7wBaf2tOMBP+L0/Ga n3dyDIv82+Ogp11c5vQ/a+soPv4C/wF/gb/B987vWwY25+vG+EU9938x0L9nVGnkREKps2MhN+2lX+5D 1N+dnGA5wWW+7G4zT9ndu+40NkyM75hkHyv2yU9Vc6mLrsiV/BaIZ5jZj0bsEx+oKqgC/iR8QeGr3+KI ZH2ykCfd94T/8cL5h8wpN5kn/gH/P5D3UsS7XDZtO7 SVZ4EN4ml2uwd+Bj/bqlpah7Ht0F94yW68odTwZAfkrDf0isj/sREYdkP9cdornQVAvc+aY33rdK+6B6 6/qh7xXftg0rBgfbR/8XGbbjLhmfoec2vBuvw9o+zAffxR0R8hZybZsQK/LjfZ/kx/wqAl7WwC2wW/Pe pH0muIqtvRNcR1j4kUt57nz5CzNPnOT+11CPffJPHK w4c25nq0htujjzD6g9t5biZlEc0N69SdwxOYO3vvb0kfx6KqG/WqjV6n0L+1eK/StN+Uqq3P+9wC5iTS wD3/p/vdu+oNvBX+Dh9Vr4L1m4v1gmN0wWM2uquL5bI/6/KV/T5CMe040XB+aQpcHB9oAiziKfgEJrlW fEMbnl+K4WetxfKGhJ+9Sl9tmt250hBh3JsY0TT+SW 5zcN+xnDscB3q8f8zLfgNhWJ29WI2A/Edh2L9pZfR3/Y8Z+Pn5OcL5qLcN11BQfejB47fo85uiwS1+J5 vQY/14f2Wz47C85u+ycOxH31+3hj2YYyPJkwgaB6xb/33YY765e+NhCDnm6Fle/9oyA6kH5Yh/G+IcvF 1rb8W7J+fL3j4uJQcfFl+ZtHlvbB+JI0cbhv9K7zSs 4V7mc247nxF5jYX7bX5BekI9aBwrv+An+Mv0Ub3M/bM38cuJ1I6AB/9QXL/asqC/gC/gR/gq+oX1G/gW /mv56r3fGDtfQ+Ar/3nJZGHeahq8ep3g/Z/mY229/AIypTuuP20QvtZuSfL2H5i6ms4BI5ML/fN+WrKv f+za3XO8fpNXbGn7J/opa9Okhdim2e2ttTga/nWMlX OU15qILz/QR/gq+nF1TKuv/+Lta4ayZwSNo44myUk6uTrRehYvz/BXjCQjcBG5a8/9tKytM4hGR6HjDf 4Av4E/fAO2hnL3sd2HHf5xiS4m4s7jsTwk6KJZ9dF/A3+Hj7B26tV0nzYdhflD+Fw69f1ziHoGBo2P/w 5ye/mbc/iqx2j7hCY6zl1cUec/xeju/r+P7H18c1yJ sG//W80reEirR9b9Vm5FXx8xG/0Y9m3Y4fYX/cm11IarK+QN0Sh9zhG6cU2x9JQ/TS1OSwmKtmbu8rVj +ytA/eMvgD/AG+9HuFfHXLeN+Ur/R63K0lJ/U4440wu7UutcW3X9srfT2qFeqqDjm90jJ49m6sOI/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 ftRwb/K4P/lcH/yg6+01b0kvJ/yuB/BFnpWz3HZp7G QrcdYz4OUNgcOkiF/gK/U9hFeG3JRkgbTr0tl9osh9l++tPyhj+bQ6u8Z37vhrnrzNgcSTCFqpVMrqKf 7/vkve1/5el/VWVH/M5817fjzZsrVLk/+oin/1WVD56/37I72S1RP0oh4CDXK/ubeclXVf6+o4/+vj56 ASipu1is/2spZ9RXUe04PK/0PuO85qKJ/gZ/g9/2QY d/u3n4sqr1z4jS+AN8AV/An+V1KcNf0GbU+hlNZi33Q2r7fSSaM4G5yt/A7/1nT/kqdBMP+Sr1CA/5yv M5pfzX6vqF+Sr1EQ/5KvUUD/lq5bcr/6u8N/yvcrxNvG/uX+B3XkxiEa0m+6v8JC0E/VWO4252xy1k55 dYopRV9c49FP3K2X3YAvjW/6uZfRX+R6WtdzI8vxkx OJ8/lYf/UqqLGFmnZate7F/aOY/C/+gz86v8hqvXl3f6khrYlVBL9/CQryT+7c9aMgetGhGB2bWq7tJx ODztgznXtPcnHfZB1/h8otrPelrJxR6H93Ris5Pm3C/m1g8ExspCJru14l3WfTG/wBfwBfwJfvsjubX+ 67l/JrM5a0x0gqUthHp2CIs23JIwgAR7dc2yV/jtT+ je/oQO/yuH/5XD/8pdwBfwJ/fWdBQuyFioK83kk/xN+Sq/kff+heato8q5kvJL7rp/K4f/la/Wjzzlqx wbKV/dMvgCvoA/wZ/gt7+ses0i8YBtUANOx2/d4d/meK24xT2B3qY/4/r2V/HV/iq+ez/W4d/p2O2t2J 855Csv+SqvmQ/KPe92+tU60f6C5B6ast3J71T10Fa8 C/wES9l1yOX4dW84kRz2/6b/VZUH+AP89r/y8r/K8gR/gq/gK9pt/oyQ2csk1Pw+pJ8+r+Sj8kmd8nXF /8pP+4w1cftOtq/Vgv/VKv+kQwFq1Tx1EP+vp corporate development/DG7jC5CI6FzfhK0cH9juC1/Bmzu8Sti8BsHf6Ob0L/ wG/1jL0Wo4E0dP/g93heo/2K9gh6dXI+WgPvO/C+A+ 61VYx6Z/zbF/zbF/yvFvzbF/lm09ehN/DbnrKk5++S1o+WtH/dkgF+9tbTWg0URpYm8Qd+uOB/tcTQro Hv4Dv4+R0T4nbpZp34Bk93Iq81K309H36hz03xUoCk/Y0F++DshM7Ko22ksTuMR/L7t4WtoeHDqIyj2/ 6Ta/b+xoL/8ElkD7ltw/UkP+0pT5Y/NXtAVz2a8/9q KHhFCcf1wai8y4m2U84kS9+2PWWl/2SGPHqEVR8+5gs9zQmi47XxaX8S8/La2x4Eopx7/8zG7cdFiiEn 7y/YB1fZB/P00n8mAwFi/bpl/r8d7qcNSC2RFTbkMeoX5/WNwqygOuZl9Gt1V/zW95f3/uTyB/z2n1ze /jiJXjjZY4g8KOV5++cs7/4YXcfkogmds0TtLo7i2R 8Ves1K/6v8pul/jtiNlWnbV1ttA1R+s0K+8abQWW93xgClpKRebkkjcN/Qq9mGzCJqS6aND0+OgfC/Ov le4X+18jnD/8rr+vC/ymcI/1qL93a5ILceFu3qpKnxse/Eu7/mpvxb10cYi9JhaQOYchpuuxJxBdRGws ze4Oi18pn0608hbBjowM7HF0bUxDD2oBfFIfbh4VvL 8lWekVkpX+Q8upnKr67Jgd10MWz+7Wv3+aO1W/9du/XflftX+Rp19XeC/lcL/ldrb/A3+Af80/zT+tGC /9XK/nebSb2fvddP13F5RbS+tS2S05YoN29B4K3f1A0zh7Qb8O/wN/gb9R+02/rghv/Vftqesp+2p2z4 X+2n/Sc3/K/7W2Foc4qZ/9VO+dfFRc1G2+T31z87jr I5B5kkdZu4Idy6l/Zo+++G/9Uevf+84d++T9zoc9W7wjiOk2Rg1fJoXf64f9/sX+8L28n32m447Vu1Qe 5no56N+tsfeKf/Zgibmk2Ow/z9p7b0+Emily/6sN/6sN/6stE/wJvoLf/vmqRw5J1aBEzg/Vhv/Vhv/Vhv /Vhv/UXzlkvso97y24xlo1/E5m39u8fG/Lw5fSR6qA 69uesifeF/7tO+Wrlfw+/7unge+43sFv/7pd/lfxjcr/vskhL5za4pfViqIHxV8apI42jZcBl/Xfrb0f h4V2rT7/qw3/e63Wj0jbHDwdQiluet1BEYt2l/A3+G0/7jf54Zu/1YZ/+4b/0OG4ryU/teF/teF/tW2C r6i/2zg3yJuLSw+xtS0cLCyJD8bft/A3+Af81o+243 0d7+r0I5j4TfQhm28rk+u/29ufcMM+kP8oRwe4m2PO/2rD/2qn/1WVF/gL/A3+Br/Ps+/3q8zhwhh0XX 9qgo0si9G/ByU6jQuw8Bp8jZ8+A5XReNhS5Py9Ayh/2I5w3D07jxuhpPdb/opT2pm8757uF3xK7akZ5K pjvdoP+Duo2vnilHrz0Lo8Bfqry9LY+JmKeyzeS24J B/fu+Kf80gu9V+7WF/Ze4K/+n+9wm61wO71HL/fG//x4KBSeSx+xT/j494CdKsm210q3e+c1s+WBA3nj kE8xP4Y6huzCzSm2vDpc442gJ62KK/ny9Csq2Grsezi9Ua2OrgTXdWN1bCj1My1zG+SrJVl+3zftLOfp 8+vv2Pt1B6AuZT5dDs1aQdtp/feEfJVnyU/VO8GKAJ c1qh7/6BGzpO6NnEhe+flfQB80K0o+Xh1JezLm/lVdH+nF360a/xN3d99Kp5yd56G6vzN8siK+1a6wia CvyF6hhAa44AoYbTZV5hj+b+ogJ+Sr+eQ1YU+qzZIiz9xU+5NndPycM/p/uVJp4TY/6ozWf8/o8XxG++ gr2mlHokJ95hHaWnwzE4lLoh7O+AL+BH+Cr+C3PeXk /tUtg++4vs+lCTp40ZsUq45fR/gH/ZmLoih84Ok906f3yvF4r9S0Xooqcp4eYl8PunpAy9Pck1Nwn3Vm l0Igg9Dht80R/7lh382pMtkDhfnPI+C3/xhgr0hO7j0K1a3llDeN4lhmSBN/PpsQj4P5Yh9Hb+Ab6un1 +SD+0SY9m1U4O6uy6a0h774tA731Paiiu9/+Yw/4LW [file] EwMTIyMAolJUVPRg== ID Date Data Source [id number] 05/14/2020 06:36:00 PM EDT [facility] DATE OF EXAM: 05/14/2020Ultrasound: Nuvia l. [...] ultrasound. X2End of diagnostic report for accession: [id number] Interpreted: Benedict Mattson MDTranscribed: 05/14/2020 06:36 PMSigned: 05/14/2020 06:36 PM Benedict Mattson MD [facility] # [id number] BILL # [id number] Name Value Range Interpretation Code Description Data Estella rce(s) Supporting Document(s) ID Date Data Source [id number] 05/14/2020 06:18:00 PM EDT [facility] DATE OF EXAM: 05/14/2020US LEG DVT [...] described. X2End of diagnostic report for accession: [id number] Interpreted: Benedict Mattson MDTranscribed: 05/14/2020 06:17 PMSigned: 05/14/2020 06:18 PM Benedict Mattson MD [facility] # [id number] BILL # [id number] Name Value Range Interpretation Code Description Data Estella rce(s) Supporting Document(s) ID Date Data Source [id number] 05/14/2020 05:59:35 PM EDT [facility] Name Value Range Interpretation Code Description Data Estella rce(s) Supporting Document(s) TROPONIN I <0.05 ng/mL (<0.05) [facility] ENG Less than 0.05: Myocardial injury unlike lyGreater than or equal to 0.05: Highly suggestive of myocardial injuryCorrelation with rise and/or fall ofserial troponins, clinical symptomsand ECG changes is necessary. ID Date Data Source [id number] 05/18/2020 01:35:27 AM EDT [facility] SPEC EXP DATE 05/17/2020PATI ENT ABO/Rh O POSITIVEANTIBODY SCREEN NEGATIVETESTING SITE PERFORMED AT [address] [place] [address] BANK COMMENT BLOOD TYPE CONFIRMED.UNIT NUMBER [id number] COMPONENT TYPE LEUKOPOOR RED CELLSUNIT DIVISION 00STATUS OF UNIT REL FROM ALLOCTRANSFUSION STATUS OK TO TRANSFUSECROSSMATCH RESULT COMPATIBLEUNIT NUMBER [id number] COMPONENT TYPE LEUKOPOOR RED CELLSUNIT DIVISION 00STATUS OF UNIT REL F ROM ALLOCTRANSFUSION STATUS OK TO TRANSFUSECROSSMATCH RESULT COMPATIBLEUNIT NUMBER [id number] COMPONENT TYPE LEUKOPOOR RED CELLSUNIT DIVISION 00STATUS OF UNIT REL FROM ALLOCTRANSFUSION STATUS OK TO TRANSFUSECROSSMATCH RESULT COMPATIBLEUNIT NUMBER [id number] COMPONENT TYPE LEUKOPOOR RED CELLSUNIT DIVISION 00STATUS OF UNIT REL FROM ALLOCTRANSFUSION STATUS OK TO TRANSFUSECROSSMATCH RESULT COMPATIBLE Name Value Range Interpretation Code Description Data Estella rce(s) Supporting Document(s) TYPE AND SCREEN [facility] PATIENT ABO/Rh O POSITIVE ID Date Data Source [id number] 05/14/2020 05:09:39 PM EDT [facility] Name Value Range Interpretation Code Description Data Estella rce(s) Supporting Document(s) URIC ACID 3.7 mg/dL (2.6-6.0) [facility] ID Date Data Source [id number] 05/14/2020 05:09:39 PM EDT [facility] Name Value Range Interpretation Code Description Data Estella rce(s) Supporting Document(s) LDH 118 U/L (84-246) [facility] ID Date Data Source [id number] 05/14/2020 05:09:39 PM EDT [facility] Name Value Range Interpretation Code Description Data Estella rce(s) Supporting Document(s) SODIUM 141 mmol/L (136-145) [facility] POTASSIUM 3.5 mmol/L (3.6-5.2) L [facility] CHLORIDE 109 mmol/L (100-108) H [facility] CO2 23 mmol/L (22-31) [facility] ANION GAP 9 mmol/L (7-16) [facility] UREA NITROGEN 6 mg/dL (7-24) L [facility] CREATININE 0.50 mg/dL (0.60-1.00) L [facility] BUN/CREAT RATIO 12.0 RATIO (10.0-20.0) [facility] GLUCOSE 75 mg/dL (70-99) [facility] CALCIUM 8.7 mg/dL (8.4-10.2) [facility] TOTAL PROTEIN 6.2 g/dL (6.4-8.2) L [facility] ALBUMIN 2.6 g/dL (3.5-4.6) L [facility] GLOBULIN 3.6 g/dL (2.7-4.3) [facility] ALB/GLOB RATIO 0.7 RATIO [facility] ALKALINE PHOSPHATASE 186 U/L (45-117) H [facility] BILIRUBIN,TOTAL 0.2 mg/dL (0.0-1.0) [facility] PLEASE NOTE:Total bilirubin results may be falselyelevated in patients taking Eltrombopag. AST (SGOT) 10 U/L (11-39) L [facility] ALT (SGPT) 23 U/L (12-78) [facility] GFR >60 ml/min/1.73m2 (>59) [facility] GFR ( AMER) >60 ml/min/1.73m2 (>59) [facility] GFR INTERPRETATION [facility] --NORMAL KIDNEY FUNCTION OR MILD DISEASE - GFR >OR= 60CHRONIC KIDNEY DISEASE - GFR 15 - 59RENAL FAILURE - GFR <15 Est. GFR calculation based on the MDRDstudy equation, which assumes a steadystate for creatinine. Est. GFR should notbe used for medication dosing. ID Date Data Source [id number] 05/14/2020 04:54:36 PM EDT [facility] Name Value Range Interpretation Code Description Data Estella rce(s) Supporting Document(s) PROTEIN,URINE 8 mg/dL [facility] URINE PROTEIN MAY BE FALSELY ELEVATEDDUR ING TREATMENT WITH AMINOGLYCOSIDESDUE TO METHOD INTERFERENCE. CREATININE,URINE 47.70 mg/dL [facility] URINE TP/CR RATIO 0.17 RATIO (0.00-0.20) [facility] ID Date Data Source [id number] 05/14/2020 04:46:45 PM EDT [facility] Name Value Range Interpretation Code Description Data Estella rce(s) Supporting Document(s) WBC 15.8 10*3/uL (4.1-11.0) H [facility] RBC 4.16 10*6/uL (4.00-5.40) [facility] HGB 10.7 g/dL (12.0-16.0) L [facility] HCT 33.4 % (36.0-47.0) L [facility] PERFORMED AT [address] [place] [address] MCV 80.3 fL (80.0-95.0) [facility] MCH 25.7 pg (27.0-32.0) L [facility] MCHC 32.0 g/dL (32.0-36.0) [facility] RDW 14.1 % (10.5-14.5) [facility] PLT 248 10*3/uL (150-450) [facility] MPV 8.9 fL (7.1-10.7) [facility] ID Date Data Source [id number] 05/14/2020 04:46:09 PM EDT [facility] Name Value Range Interpretation Code Description Data Estella rce(s) Supporting Document(s) COLOR [facility] PERFORMED AT [address] [place] [address] APPEARANCE [facility] SPEC GRAV URINE 1.008 (1.003-1.030) [facility] PH URINE 6.5 (5.0-7.5) [facility] LEUK ESTERASE (NEG) [facility] CRITERIA FOR CULTURE NOT MET.CULTURE CAN BE ADDED WITHIN 36 HOURS OFCOLLECTION. NITRITE URINE (NEG) [facility] PROTEIN URINE (NEG) [facility] GLUCOSE URINE (NEG) [facility] KETONE URINE (NEG) [facility] UROBILINOGEN 0.2 mg/dL (0-1.0) [facility] BILIRUBIN URINE (NEG) [facility] BLOOD/HGB URINE (NEG) [facility] ID Date Data Source [id number] 05/14/2020 04:41:45 PM EDT [facility] Name Value Range Interpretation Code Description Data Estella rce(s) Supporting Document(s) HOLD TUBE PINK [facility] ID Date Data Source [id number] 05/14/2020 01:50:51 PM EDT [facility] Name Value Range Interpretation Code Description Data Estella rce(s) Supporting Document(s) Progress Note [facility] VMQJBb8sDkILCaVr93/QPQlrOQTux8KeVRpoJQn5YQtrQXDkG5ZyLOL3iX3mSPI1DIoLVnDtNzNlXyEj lbm [file] AgICAgICAgICAgICAgICAgICAgICAgICAgICAgICAgICAgICAgICAgICAgICAgICAgICAgICAgICAgIC FcBZBaJJJsXQRsIZWnGYTdIUQcKKOtNQKiKQMdXY3E ICAgICAgICAgICAgICAgICAgICAgICAgICAgICAgICAgICAgICAgICAgICAgICAgICAgICAgICAgICAg XJZaZZLoVDCsBSJqKDJtAHXfEKQoAKEuSVSjDQNnWLTzMXGnWHZzYZ6HADGfVTPtTKIgAYCjFNQdPAMv ICAgICAgICAgICAgICAgICAgICAgICAgICAgICAgIC ZhDWKxOYOcIMWxCXRjIJVbKVHdMPLxNGIbNTYuQYGjXBCbXBWkRMRyLJKnSCKmQHNzIB5EOQHhNDPkRA AgICAgICAgICAgICAgICAgICAgICAgICAgICAgICAgICAgICAgICAgICAgICAgICAgICAgICAgICAgIC AgICAgICAgICAgICAgICAgICAgICAgICAgICAgICAg LT1XWLViSDKyMKXxAHYjZDNoJHSeLESfLXWrKTFeZMDqTCNdJMMcRZLeZJGhBTLdNUHlXNWcBFTuQBXd HDAzDFVtZYKfHUFlQSSzTNZwFCEaNWXrBSKoSLSrFOXfLPXcMQVbEMHhJH2CTIRrAHVfJGHlXJJdJJSt ICAgICAgICAgICAgICAgICAgICAgICAgICAgICAgIC XsDJIxPYNlMAWdBPIfGJZtRQYhMYFwISAgGRXuYSOdZMPyAVQyXWViXMHsIWYjCRLiPUWjCF7FESWsNU AgICAgICAgICAgICAgICAgICAgICAgICAgICAgICAgICAgICAgICAgICAgICAgICAgICAgICAgICAgIC AgICAgICAgICAgICAgICAgICAgICAgICAgICAgICAg OAHgRI3FNAHgGOYiBCIqDCFlJDRzZWUrDZSxTRXfNGBoAWRhFAOuNKZjKPEaUQOlWBJoYZKvLEYjDOCz FNOzGTZaWYQpBBMyXYZrKGPiNAVjPPNfQTGxPLLqBMVpSNWgIWSoAALwRIZbVP8TCVDxHNGrMFBaKJZc ICAgICAgICAgICAgICAgICAgICAgICAgICAgICAgIC ZzKPCrZNCgHRXfIUXzDJZcQMMvBDMoDXGgMUYtBBKhMVWoTLVjYGGqVRZlDAVwTHAyZPDwIUKiDL2TQG AgICAgICAgICAgICAgICAgICAgICAgICAgICAgICAgICAgICAgICAgICAgICAgICAgICAgICAgICAgIC AgICAgICAgICAgICAgICAgICAgICAgICAgICAgICAg MSKkPHNiDZ4WRP85tNRkq8H6WOKeIN6ikza/Fr9KZYfqykUovZDtXN6QHlFxPU1sxn2WUvRdKF9mbl9S RJxLSkCnU5F8aIDuALIsTZRGRsFwO76nSCluOh38TZamHGTnByBmHYe3Dq4ZBaApR5ukNAEjLoC2WHMg LwI9UMCmNeQtAPppNS9Rp0YudENnCDv+Wh9HKO9oc8 KuLFwrCdXiHJ0bri9CANqKRsObJ9DwqjK4LVZ4AXOsIc1FOZHgGGFswXDpEITuUEFGSiCvR3PrvX98SR ENCj4+JNlpzsTpHujXWkJ6KQKym7FdQOy6GY2RTDKbSDg4jIMuXMVpZ5Bnt4MiIi15RZJtQrtaLcBnir paDJQlAmCXy3vkPJEiIK2DCOF2VHcpNk5zQNVjUEVa LyBzDRDVTB6DNIRxXSQqvVXhANGpYDCTCR8WZUkbCQO7UIBhupOenDAyHXssJB3OBFTielIgZoxoAKSV DQo+Ki9PMD7tr4BeUTlbJVXuJG4jvq2OPUpCKwElS4F9wSUwV7A8AMgrIv8YNREdIMKfDgDxGPUFHVhs OM0UQE9pndQ6RH1ZpHGcTGYtFZTohXKhCHu4M89yzK RcYKuxWD0YORI+Penny+Jd3DSRAhNVThNQXkZwSpPMSUOoXxR8EgI1WLw6DpB8PzOT08kZzfvaQlEDroHE 2PKF1uKBUxGWKVAE1KhYPjxU5usbNoEgUqSAPXKiQaN06aeCWrPHDgNXN3CQTuAy8HOQFqG8UujyGvgK dztrHvSPKwCLDJPQ7SEUkahyGvvCLdeXubPI17pGmj AT8HDv3HHaHrSK8dmv5LaRVlXe9HOHOtET1OFCUgZMGpGRRdESS6CLCmZuNhQTteHKStBJIfWCC8LGYl BLOrFU5XDuNpGTChToHdMGQsRRHvSSFycc5DTJJaNADjIFm3UrUfCKPoLGTqHVrlVFHxOAHrKJR2BXUu KGBcKP0AKkZnJGBmPAByNlAyHNKcFZGjnq8TOBTaWL ZxLoLpCDBgUKXgLVCbNSdhCMZaJWJ0QlG7RYQqBTGzDI6DBbRbYSKlOYO8TjVgSQWkPGAatd2YAICuLZ VzTuCrSRBjZIDjGZOgADkxJRGlDRE8ZdY3IGTePHVpUC7PCbAuXKYqNXV9TEifXAYcFJIxbq8BNTTdWF OaYrz4QrYpKVNbRIHtOBsxKHYmDGU9DQN7NKMiYMMn WB3CLyRzCVEfWHbhGUNdAPQnBDOisp2UBUSnWDUvHSH7FxLeHEXaYYElKOhdYGTaWKN2XTVjPSWgMPKd CC4ACwAlWGNbHoHvSkUxTPZyHDCdow0GUWWgRRYvKSQ0EXTlQIGzPBDiVEmmQPAjHIRkFTM9BRHiQKCg EH3EIfSzJQFaHfF9FAsiCORbETQrae9AVUJwJXAzMH T2JFZbNWThNDMmLPfpADIdVSWmMKC1JOIlRAGsFX1SMdLfFVRuHiB5WcYwDCBaOVRxjc3DTDFnDAYpNc j7LjFeLKMiTTNxQAaxSGQtHJRuQFP1WPMgDLTkGN6MZaRtMXCeDrN6AKldPEBpKIOuji8LBMMsDWBaXG AlQWYuESKpZUNkYIorRXZgMUT3GNtkMOKnJEOaEN8Z JnYhLFJkUcHlHiJlZKXrUFMtrx9QjYXkjZcjvo0OYCmBKt9JeBusILQtCAhkPg3tgPDoZYXcSCWDSc6O irLyYRYhOOMMYDesXBIuFSXsK1CiAis7ZAncB3Z4XXE0BuUfSJDlXCNtZWN3YMDxFfQ6IiZrN5FmVXd7 A1D0LWG9NpuvRsA8Y5X2YrYcUbW6UDL+AB5qBSl+Nu9Tf5KtnuY2leXuTUgbJPJ8Fw6FUJCFU9LARu== ID Date Data Source [id number] 05/14/2020 01:05:17 PM EDT [facility] Name Value Range Interpretation Code Description Data Estella rce(s) Supporting Document(s) Color of Urine [facility] Clarity of Urine [facility] Glucose [Mass/volume] in Urine by Test strip Negative [facility] Bilirubin.total [Presence] in Urine by Test strip Negative [facility] Ketones [Mass/volume] in Urine by Test strip Negative [facility] Specific gravity of Urine by Test strip 1.010 1.005-1.025 [facility] Hemoglobin [Presence] in Urine by Test strip Negative [facility] pH of Urine by Test strip 7.0 5.0-8.0 [facility] Protein [Mass/volume] in Urine by Test strip Negative [facility] Urobilinogen [Units/volume] in Urine by Test strip 0.2 {Ehrlich_U}/ dL 0.2-1.0 [facility] Nitrite [Presence] in Urine by Test strip Negative [facility] Leukocyte esterase [Presence] in Urine by Test strip Negat socrates [facility] ID Date Data Source [id number] 05/18/2020 03:02:25 PM EDT [facility] PC[facility]: Winsome Nickerson: 1990Provider: Derian Milian: 05/13/2020 History of Present IllnessShe is here for the first visit to [facility] for a right ankle fracture. She was seen in [facility] by Dr. Richard Guerrero for a [...] have this evaluated. She has been to [facility] ER in the past. She is on [...] [employer]ect[employer] Lite Walker (SOS) [id number]; Status:Complete; Done: [id number] Perform:SOS05; Due:85Rsc1743; Last Updated By:Malou Owen; 05/13/2020 4:51:53 PM;Ordered; For:Right ankle pain; Ordered By:Virginia Milian;DME Walker Size : Tall Medium X-Ray I Ankle - 3 views (XRays were ordered, obtained and interpreted today in theoffice. Indication: pain/dysfunction.); Status:Complete; Done: 18Lxd9607 Perform:SOS05; Due:41Pox2712; Last Updated By:Kika Baumann; 05/13/2020 4:00:09 PM;Ordered; For:Right ankle pain; Ordered By:Virginia Milian;Weight Bearing Status : Non-weight bearingLaterality: : Right Venous Doppler (SOS) Referral Treatment Treatment Status: Complete Done:27Fzw0409 Ordered;For: Pain and swelling of right lower extremity; Ordered By: Virginia Milian Performed: Order Comments: Please call [phone] with STAT results Due: 50Ozx3318; Last Updated By: Christy Campbell; 05/13/2020 4:35:46 [...] rce(s) Supporting Document(s) ID Date Data Source [id number] 05/13/2020 12:11:41 PM EDT [facility] Name Value Range Interpretation Code Description Data Estella rce(s) Supporting Document(s) Progress Note [facility] HZNGFl9jMqXEJpEk98/TCCbpLTKyk4RuUFidMJh8BIxhIRXbU2EbHGL5qC6mFYE0UGqTOuJpKaDxBhZs [facility] [file] 5h/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+c/FyYLbwifikZxnrhabBP/KwBJRcedlAPLwuTO5h10H42I9XcA3LB7edoMQiBn5IVof4L1dRt0 [file] 639Kr1Ngtl2fG+6Rv/fM+Bpc/Michelle/r7796+Bqutb8w vvTmbRMDY+Tw844buDofY01tAWsoR9v3VZkUwgq/wHX9c/qHT6728KJa045NfLZTft75tS/qMRD9yrD5 e3nJrMq100huam1e1CsI7mKNs6M60w9kEWsxGEGxvUmjKpXhiNIQPu7Li3Y89lpKLxpBaceofzZ6BDSy Uzw9J1mg3SLc9xZDsozmjcmPSDQDouGcqzK3PmoqTK ywD2PEGkMk6mRkW3nkbK9VCmVqksfHpTBouThz6Xh4VDjYJc3FEPaQrACcnkgR1Fefm2SZzA01/QBOFF D+UPDOGpsTs5GU3CJfx+vRWjlL1+b0BzNSowQFF65OijpF7xIzp/DTELNjEcpuF61eXzdePJFwW1n4JG BtNOpO0pT6yYSPVROMrLVG+yNQLz044Oac8pH8crmZ bV/Ofgi2jl4Bz353s/B7QPIDqGs/6aCZpaxrT7x6aas4p4HagdeoEZo3PR4lTwC+qrXHw0MFcrhwinLP gIH+eAqkDy5v9YMa3ZP2VjrNOPJwF+qJzUFHCFvlelEPCSfzGKljlGchmpros4OOQSfzHCQ1tpAZbfMC 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 and applier+5hIhxVD6coS3gdYFvIZBDVx8jXJ0sMVSMWECPF [file] AgICAgICAgICAgICAgICAgICAgICAgICAgICAgICAgICAgICAgICAgICAgICAgICAgICAgICAgICAgIC AgICAgICAgICAgICAgICAgICAgICAgICAgICAgICAg ICAgICAgICANCiAgICAgICAgICAgICAgICAgICAgICAgICAgICAgICAgICAgICAgICAgICAgICAgICAg ICAgICAgICAgICAgICAgICAgICAgICAgICAgICAgICAgICAgICAgICAgICAgICAgICANCiAgICAgICAg ICAgICAgICAgICAgICAgICAgICAgICAgICAgICAgIC AgICAgICAgICAgICAgICAgICAgICAgICAgICAgICAgICAgICAgICAgICAgICAgICAgICAgICAgICAgIC ANCiAgICAgICAgICAgICAgICAgICAgICAgICAgICAgICAgICAgICAgICAgICAgICAgICAgICAgICAgIC AgICAgICAgICAgICAgICAgICAgICAgICAgICAgICAg ICAgICAgICAgICANCiAgICAgICAgICAgICAgICAgICAgICAgICAgICAgICAgICAgICAgICAgICAgICAg ICAgICAgICAgICAgICAgICAgICAgICAgICAgICAgICAgICAgICAgICAgICAgICAgICAgICANCiAgICAg ICAgICAgICAgICAgICAgICAgICAgICAgICAgICAgIC AgICAgICAgICAgICAgICAgICAgICAgICAgICAgICAgICAgICAgICAgICAgICAgICAgICAgICAgICAgIC AgICANCiAgICAgICAgICAgICAgICAgICAgICAgICAgICAgICAgICAgICAgICAgICAgICAgICAgICAgIC AgICAgICAgICAgICAgICAgICAgICAgICAgICAgICAg ICAgICAgICAgICAgICANCiAgICAgICAgICAgICAgICAgICAgICAgICAgICAgICAgICAgICAgICAgICAg ICAgICAgICAgICAgICAgICAgICAgICAgICAgICAgICAgICAgICAgICAgICAgICAgICAgICAgICANCiAg ICAgICAgICAgICAgICAgICAgICAgICAgICAgICAgIC AgICAgICAgICAgICAgICAgICAgICAgICAgICAgICAgICAgICAgICAgICAgICAgICAgICAgICAgICAgIC AgICAgICANCiAgICAgICAgICAgICAgICAgICAgICAgICAgICAgICAgICAgICAgICAgICAgICAgICAgIC AgICAgICAgICAgICAgICAgICAgICAgICAgICAgICAg ICAgICAgICAgICAgICAgICANCjw/tKIxT1czaCDjqsN4X6xfJv1AVj9QFO5rs5OwDNNkCLzwwbTwAjfU XgLpLXTrHeoVEbj4YDxhYI7LoVTxS9HeW6MkGMdhOW2PCJEnDTWvqQIkHBBlDKFbGbA9AGEaMRjaJA1X aWRzIFsgNSAwIFIgNyAwIFIgOSAwIFIgMTEgMCBSID QyCDZbXiDmMPlyIL0Yb1DazZJ6ZUm+Ck1COX8ty0PfGVmcURQvQM4pct6NWRuODlSvN2NkquE4WFYpIB PrJe9TEAHlALItpTLcDLEfBELSMhDvF0HkqI52OGQWKx2+IQnqopDxRqpESoDqZTSyb9BgWKz4YB9OVI XxILq9fCRyXUJzW0Ern2FqVv16HQQzGvvdZe8fVGK9 PRSxNFGqesesMEIsQVOoLy8sUL9qAKVqRWMdAgY0RDWCNW2OLHHsDQJuzCHcUPViQNWHNK7SOWzrUMA3 HRAmoiOdbETzLAplPW2CGKVzplJsDkTqDCHGDJh+Ta3UKG1nm7FqWFpiSeRyTW8fgb5XDUoDDsSrL0G5 kUOhH6B9VGwcPa7ENRYvOWMhNsgoLRMJGUjrFW9WYO 2nzhZ5CD1IaPXnVRYlNLAhtVMyNOc1C85nyXApOWecGP5JIRD+Penny+Jd3XCGRwRRZjFCKtRxBgQPTUBn HyJ4GmS7DRy6VaB6TmXT74jYrolcWwUJgmWG7KQH0lSMPpJPVHZK7FcAPygO1wpgPvSARtRRYZNxXiH1 4mrMHeSTLiXXC2WDPyUn5FPWCyR3KheeLqmBysctRq BAHyAQINBO4JFApxvlUxtQBaxNhbTC58xWuuUA6FFu2NOvVmVY2cwb8AaKHcQg6CWIFfGe3IAXSkGFUe JLZhHFD3KKJyOdKjCEpkIVGyLNSjZOU6IMBpWAVtHI3UUjLdHTRhYmM0ASSxQZZgOIWsnc3VFAYiLVB3 ZzP4TFZnJAAfDIXjLFfeVWEeSNFgKQD5TGCxJLWvTN 2KBxYnGIHjXJKiSuukDMKvHNDcri5XMNQjEFKiPPG0UZOhTMZsIVCcYYrsYOCfIGE9GqZ5RTCnMGFmSW 9HXvTpURBsSCk3MuHaEFWpKWXucy5IILKvKVEzAvEpLlGxEOBxWEMgPKxvFERtFMV6FhJjRSFkSQNiEZ 1MAeDpLRIqQdF1KpWwGZUsNADscp3UTCNkYCUlEMff ArKmSAUvAHVfTSvfWYZfPZUiKPAnNGVwCIUaZT4SWnZdDKXiAbGeTYSlFKNcQLAvoj8ZXIFaNUNaBEUz GiKjZNOjYMCeDPuoLIPiEOD2YIExFUSwZSFhHD9SToJrBWTtKcO7YAIhXORmEMNdae0ZJQPdXBCpBZN4 FYNzZQBtMNDnUUhxUYFjPAJ3HNQ7BZRtDYRrWR6WIs LhBBJuOgNkDINjZJWuKXOual5RLQVkTQQ0YoU1LsHtFAYbUABcJUisLKIqHKY0EyAuPDTwXRTbTZ4RFs ZaNECaKEo8VyCdIYLhCRVztf5EIRRtOCP3JSO9AlXdNVAvFRKzYTvuMXNbZZR0BJHuAMExOEPqEQ6QDx CtEFWvBmAfEXBsWFZcOJQcgk8ZBIOgRCH2NRP6MDVr OILaXSMaFXoxRMNqBDTlLzOoNQHjIFOnIY3LBvDpKBBaEkUxOzsuHGYmMOMzsv4INAAdSVG6DbPsBeEd WBSdKWDmZXpzOGBhENCsLyo1LBJmYOBaQB1QGpHjUNDpBcL9PwZtRSJzBBWfjg0WpCVktJanhz7MRZvX Fk0DjMcfSGJyOUdlKf5lfDFbGuEaTTZRMv7DtiSuJL EzOJDXWOpvBCStTWjxUbI0OrCyJBYuSEC2SBboGGSiXDB0TBU9LTYoLTR4RyW4YIE7PZpeRAKnWhElIN VsEXF6T5B2CNP5BPA8MXBxYLM+KR4wDWx+Je4Pw4ErztA2qzWbXAh2KvT0Jb3OIEBJL7DVIv== ID Date Data Source [id number] 05/11/2020 09:56:26 AM EDT [facility] Name Value Range Interpretation Code Description Data Estella rce(s) Supporting Document(s) Color of Urine [facility] Clarity of Urine [facility] Glucose [Mass/volume] in Urine by Test strip Negative [facility] Bilirubin.total [Presence] in Urine by Test strip Negative [facility] Ketones [Mass/volume] in Urine by Test strip Negative [facility] Specific gravity of Urine by Test strip 1.005-1.025 [facility] Hemoglobin [Presence] in Urine by Test strip Negative [facility] pH of Urine by Test strip 5.5 5.0-8.0 [facility] Protein [Mass/volume] in Urine by Test strip Negative [facility] Urobilinogen [Units/volume] in Urine by Test strip 0.2 {Ehrlich_U}/ dL 0.2-1.0 [facility] Nitrite [Presence] in Urine by Test strip Negative [facility] Leukocyte esterase [Presence] in [facility]rine [facility] Date Data Source [id number] 05/07/2020 09:49:29 AM EDT [facility] Name Value Range Interpretation Code Description Data Estella rce(s) Supporting Document(s) Progress Note [facility] UVNKHb2pHyMYCkCw89/JNRueJTJzb5UcATftYUy8JKeaCGOhU7ThCKM6kK7oCTP1LRxLViXcGhXhDaS0 lbm [file] 4uVzH4h1r9xDOcg1FCc/library circulation technician+En0pcRE3hwEIOuXlk1Tze52n43zwj858F1xk7/2/SkXS0y/Nnq+ZupJtC [file] O6QdZgS8ELY5DUipKUR0VbA8ZQYdNw9sUUBMDb4+YKifpZTtqShqBYEGNoFoYdh7HDibCIYXSd7Z ID Date Data Source [id number] 05/08/2020 11:56:00 PM EDT [facility], [place] [id number] [place], [place] [address]PYRMYZB NAME: WINSOME AKERSDAHERMAN OF : 1990REPORT: CONSULTATIONPATIENT NUMBER: [id number] STATUS: IPMEDICAL RECORD NUMBER: [id number]: 00DATE OF CONSULTATION: 05/06/2020REFERRING PHYSICIAN: Dr. Tarango.TIME OF CONSULTATION: 06:50 a.m.REASON FOR CONSULTATION: Minimally displaced ankle fracture.HISTORY OF PRESENT ILLNESS: Ms. Akers is a 29-year-old female who had afall yesterday in her bathroom. She was on the fourth step when she felland heard a snap. She is 31 weeks and her significant other is [employer] stationed at [place]. The patient was admitted andtransferred to [place] for a lupus flare with the fracture. She reports ahistory of a fracture a year ago as well in her pelvis. She was taken [facility] in [place] for evaluation and she was splinted and given anappointment to see orthopedics in [place] and her OB today. Her OBapparently thought that she should be [place] came [place] to [place] overnight and was admitted.Currently her lupus symptoms [...] Guerrero MDDictated: 05/06/2020 7:42DT: 05/06/2020 7:50Job #: [id number]:NOTE: [facility] computer generated reports are notconfirmed or authenticated unless they are signed by the providerElectronically Authenticated and Edited by:Richard Guerrero MD On 05/08/2020 11:56 PM EDT Name Value Range Interpretation Code Description Data Estella rce(s) Supporting Document(s) ID Date Data Source [id number] 05/05/2020 09:54:03 PM EDT [facility] Name Value Range Interpretation Code Description Data Estella rce(s) Supporting Document(s) POC GLUCOSE 154 mg/dL (70-99) H [facility] PERFORMED BY CLINICAL STAFF ID Date Data Source [id number] 05/05/2020 06:53:07 PM EDT [facility] Name Value Range Interpretation Code Description Data Estella rce(s) Supporting Document(s) POC GLUCOSE 118 mg/dL (70-99) H [facility] PERFORMED BY CLINICAL STAFF ID Date Data Source [id number] 05/05/2020 11:49:23 AM EDT [facility] Name Value Range Interpretation Code Description Data Estella rce(s) Supporting Document(s) POC GLUCOSE 106 mg/dL (70-99) H [facility] PERFORMED BY CLINICAL STAFF ID Date Data Source [id number] 05/05/2020 07:37:35 AM EDT [facility] Name Value Range Interpretation Code Description Data Estella rce(s) Supporting Document(s) POC GLUCOSE 111 mg/dL (70-99) H [facility] PERFORMED BY CLINICAL STAFF ID Date Data Source [id number] 05/04/2020 10:18:21 PM EDT [facility] Name Value Range Interpretation Code Description Data Estella rce(s) Supporting Document(s) POC GLUCOSE 143 mg/dL (70-99) H [facility] NOTIFIED PROVIDERNOTIFIED NURSEPERFORMED BY CLINICAL STAFF ID Date Data Source [id number] 05/06/2020 01:19:07 PM EDT [facility] SPECIMEN DESCRIPTION VAGINAL/RECT ALCULTURE RESULTS NEGATIVE: BETA HEMOLYTIC STREPTOCOCCI GROUP B B Y PCRREPORT STATUS FINAL 05/06/2020 Name Value Range Interpretation Code Description Data Estella rce(s) Supporting Document(s) ID Date Data Source [id number] 05/04/2020 06:30:00 PM EDT [facility] Name Value Range Interpretation Code Description Data Estella rce(s) Supporting Document(s) SARS coronavirus 2 RNA [Presence] in Res piratory specimen by PATIENCE with probe detection Lab [facility] This lab was reported by [facility] [employer] [facility] [employer]. ID Date Data Source [id number] 05/04/2020 09:50:54 PM EDT [facility] Name Value Range Interpretation Code Description Data Estella rce(s) Supporting Document(s) SPECIMEN DESCRIPTION [facility] COVID19 RESULT (NDET) [facility] THIS ASSAY AMPLIFIES AND DETECTSTHE TARG ET RNA USING REAL-TIME PCR.NEGATIVE 2019_NCOV RT-PCR RESULTS DONOT PRECLUDE 2019_NCOV INFECTION ANDSHOULD NOT BE USED THE SOLE BASISFOR PATIENT MANAGEMENT DECISIONS. COMMENT [facility] UNDER AN EMERGENCY USE AUTHORIZATION(EUA ) FOR THE DETECTION AND/OR DIAGNOSISOF THE VIRUS THAT CAUSES COVID-19.RESULTS EMAILED TO IC AT 21:04 ON 05/04/20. ID Date Data Source [id number] 05/04/2020 06:24:00 PM EDT [facility] DATE OF EXAM: 05/04/2020US OB [...] is 1556 gm. Professional interpretation performed at [facility] .End of diagnostic report for accession: [id number] Interpreted: Shirin Robert MDTranscribed: 05/04/2020 06:19 PMSigned: 05/04/2020 06:24 PM Shirin Robert MD [facility] ACC # [id number] BILL # [id number] Name Value Range Interpretation Code Description Data Estella rce(s) Supporting Document(s) ID Date Data Source [id number] 05/04/2020 06:19:00 PM EDT [facility] DATE OF EXAM: 05/04/2020Venous Doppler R IGHT [...] deep venous thrombosis. Professional interpretation performed at [facility] [phone].End of diagnostic report for accession: [id number] Interpreted: Shirin Robert MDTranscribed: 05/04/2020 06:18 PMSigned: 05/04/2020 06:19 PM Shirin Robert MD [facility] ACC # [id number] BILL # [id number] Name Value Range Interpretation Code Description Data Estella rce(s) Supporting Document(s) ID Date Data Source [id number] 05/04/2020 04:55:00 PM EDT [facility] DATE OF EXAM: 05/04/2020EXAM: Right Ank le INDICATION: Fracture COMPARISON: None TECHNIQUE: 4 views were obtained. FINDINGS: There is lateral soft tissue swelling. There is a fracture of the distal fibula which is minimally displaced. The ankle mortise is anatomically maintained. IMPRESSION: Minimally displaced fracture of the distal fibula Professional interpretation performed at [facility] .End of diagnostic report for accession: [id number] Interpreted: Aston Moreno MDTranscribed: 05/04/2020 04:54 PMSigned: 05/04/2020 04:55 PM Aston Moreno MD ---- [facility] ACC # [id number] BILL # [id number] Name Value Range Interpretation Code Description [facility]) ID Date Data Source [id number] 05/04/2020 02:01:04 PM EDT [facility] Name Value Range Interpretation Code Description Data [facility] rce(s) Supporting Document(s) PROTEIN,URINE 30 mg/dL [facility] URINE PROTEIN MAY BE FALSELY ELEVATEDDUR ING TREATMENT WITH AMINOGLYCOSIDESDUE TO METHOD INTERFERENCE. CREATININE,URINE 218.00 mg/dL [facility] URINE TP/CR RATIO 0.14 RATIO (0.00-0.20) [facility] ID Date Data Source [id number] 05/04/2020 01:48:39 PM EDT [facility] Name Value Range Interpretation Code Description Data Estella rce(s) Supporting Document(s) COLOR [facility] PERFORMED AT [address] [address] APPEARANCE [facility] SPEC GRAV URINE 1.030 (1.003-1.030) [facility] PH URINE 6.0 (5.0-7.5) [facility] LEUK ESTERASE (NEG) [facility] CRITERIA FOR CULTURE NOT MET.CULTURE CAN BE ADDED WITHIN 36 HOURS OFCOLLECTION. NITRITE URINE (NEG) [facility] PROTEIN URINE (NEG) [facility] GLUCOSE URINE (NEG) [facility] KETONE URINE (NEG) [facility] UROBILINOGEN 0.2 mg/dL (0-1.0) [facility] BILIRUBIN URINE (NEG) [facility] BLOOD/HGB URINE (NEG) [facility] ID Date Data Source [id number] 05/05/2020 01:02:03 PM EDT [facility] Name Value Range Interpretation Code Description Data Estella rce(s) Supporting Document(s) MEGAN SCREEN @ (NEG) [facility] ID Date Data Source [id number] 05/05/2020 01:02:03 PM EDT [facility] Name Value Range Interpretation Code Description Data Estella rce(s) Supporting Document(s) ANTI-DNA(DS) AB @ <1 IU/mL (0-4) [facility] IU/mL INTERPRETATION LESS THAN 5 NEGATIVE5 TO 9 EQUIVOCALGREATER THAN 9 POSITIVE ID Date Data Source [id number] 05/04/2020 05:24:34 PM EDT [facility] Name Value Range Interpretation Code Description Data Estella rce(s) Supporting Document(s) COMPLEMENT C4 @ 49 mg/dL (10-40) H [facility] ID Date Data Source [id number] 05/04/2020 05:24:34 PM EDT [facility] Name Value Range Interpretation Code Description Data Estella rce(s) Supporting Document(s) COMPLEMENT C3 @ 225 mg/dL (90-180) H [facility] ID Date Data Source [id number] 05/04/2020 03:58:51 PM EDT [facility] SPEC EXP DATE 05/07/2020PATI ENT ABO/Rh O POSITIVEANTIBODY SCREEN NEGATIVETESTING SITE PERFORMED AT [address] [place], [place] [address]BLOOD BANK COMMENT BLOOD TYPE CONFIRMED. Name Value Range Interpretation Code Description Data Estella rce(s) Supporting Document(s) ID Date Data Source [id number] 05/04/2020 03:27:47 PM EDT [facility] Name Value Range Interpretation Code Description Data Estella rce(s) Supporting Document(s) ESR 56 mm/h (0-20) H [facility] ID Date Data Source [id number] 05/04/2020 02:21:27 PM EDT [facility] Name Value Range Interpretation Code Description Data Estella rce(s) Supporting Document(s) C REACTIVE PROTEIN @ 3.2 mg/dL (0.0-0.5) H [facility] PER[facility] AT [address] [place] [address] ID Date Data Source [id number] 05/04/2020 01:03:51 PM EDT [facility] Name Value Range Interpretation Code Description Data Estella rce(s) Supporting Document(s) URIC ACID 4.2 mg/dL (2.6-6.0) [facility] ID Date Data Source [id number] 05/04/2020 01:03:51 PM EDT [facility] Name Value Range Interpretation Code Description Data Estella rce(s) Supporting Document(s) LDH 109 U/L (84-246) [facility] ID Date Data Source [id number] 05/04/2020 01:03:51 PM EDT [facility] Name Value Range Interpretation Code Description Data Estella rce(s) Supporting Document(s) SODIUM 139 mmol/L (136-145) [facility] POTASSIUM 3.4 mmol/L (3.6-5.2) L [facility] CHLORIDE 109 mmol/L (100-108) H [facility] CO2 23 mmol/L (22-31) [facility] ANION GAP 7 mmol/L (7-16) [facility] UREA NITROGEN 6 mg/dL (7-24) L [facility] CREATININE 0.41 mg/dL (0.60-1.00) L [facility] BUN/CREAT RATIO 14.6 RATIO (10.0-20.0) [facility] GLUCOSE 92 mg/dL (70-99) [facility] CALCIUM 8.7 mg/dL (8.4-10.2) [facility] TOTAL PROTEIN 6.1 g/dL (6.4-8.2) L [facility] ALBUMIN 2.5 g/dL (3.5-4.6) L [facility] GLOBULIN 3.6 g/dL (2.7-4.3) [facility] ALB/GLOB RATIO 0.7 RATIO [facility] ALKALINE PHOSPHATASE 191 U/L (45-117) H [facility] BILIRUBIN,TOTAL 0.1 mg/dL (0.0-1.0) [facility] PLEASE NOTE:Total bilirubin results may be falselyelevated in patients taking Eltrombopag. AST (SGOT) 7 U/L (11-39) L [facility] ALT (SGPT) 22 U/L (12-78) [facility] GFR >60 ml/min/1.73m2 (>59) [facility] GFR ( AMER) >60 ml/min/1.73m2 (>59) [facility] GFR INTERPRETATION [facility] --NORMAL KIDNEY FUNCTION OR MILD DISEASE - GFR >OR= 60CHRONIC KIDNEY DISEASE - GFR 15 - 59RENAL FAILURE - GFR <15 Est. GFR calculation based on the MDRDstudy equation, which assumes a steadystate for creatinine. Est. GFR should notbe used for medication dosing. ID Date Data Source [id number] 05/04/2020 12:30:37 PM EDT [facility] Name Value Range Interpretation Code Description Data Estella rce(s) Supporting Document(s) WBC 12.6 10*3/uL (4.1-11.0) H [facility] RBC 4.19 10*6/uL (4.00-5.40) [facility] HGB 10.7 g/dL (12.0-16.0) L [facility] HCT 33.4 % (36.0-47.0) L [facility] PERFORMED AT [address] [place] [address] MCV 79.7 fL (80.0-95.0) L [facility] MCH 25.7 pg (27.0-32.0) L [facility] MCHC 32.2 g/dL (32.0-36.0) [facility] RDW 14.2 % (10.5-14.5) [facility] PLT 238 10*3/uL (150-450) [facility] MPV 9.1 fL (7.1-10.7) [facility] ID Date Data Source [id number] 05/04/2020 12:28:58 PM EDT [facility] Name Value Range Interpretation Code Description Data Estella rce(s) Supporting Document(s) HOLD TUBE PINK [facility] ID Date Data Source [id number] 04/17/2020 05:52:00 AM EDT [facility] Name Value Range Interpretation Code Description Data Estella rce(s) Supporting Document(s) UPEE Creatinine,RUR result Normal (applies to n on-numeric results) [facility] Test Performed By: [facility] [address] [place] [address] Director: Benito Skaggs MD No established reference values UPEE Total Protein,RUR result Normal (applies t o non-numeric results) [facility] Test Performed By: [facility] [address] [place] [address] Director: Benito Skaggs MD No established reference values UPEE TotProt/CreatRatio result Normal (applies to non-numeric results) [facility] Test Performed By: [facility] [address] [place] [address] Director: Benito Skaggs MD No established reference values ID Date Data Source [id number] 04/16/2020 10:41:00 PM EDT [facility] Name Value Range Interpretation Code Description Data Estella rce(s) Supporting Document(s) Creatinine,Ur Random Normal (applies to non-num carolann results) [facility] Test Performed By: [facility] [address] [place] [address] Director: Benito Skaggs MD No established reference values Total Protein,Urine Random Normal (applies to n on-numeric results) [facility] Test Performed By: [facility] [address] [place] [address] Director: Benito Skaggs MD No established reference values UrTotal Protein/Creat Ratio Normal (applies to non-numeric results) [facility] Test Performed By: [facility] [address] [place] [address] Director: Benito Skaggs MD No established reference values ID Date Data Source [id number] 04/16/2020 06:07:00 PM EDT [facility] Name Value Range Interpretation Code Description Data Estella rce(s) Supporting Document(s) Color,Urine Colorl-Dk Y Normal (applies to non-numeric res ults) [facility] Clarity,Urine Clear Normal (applies to non-numeric re sults) [facility] Specific [place],Urine 1.005-1.030 Normal (applies to non- numeric results) [facility] pH,Urine 5.0-8.0 Normal (applies to non-numeric resul ts) [facility] Protein,Urine Negative Normal (applies to non-numeric re sults) [facility] Glucose,Urine Negative Normal (applies to non-numeric re sults) [facility] Ketones,Urine Negative Normal (applies to non-numeric re sults) [facility] Blood,Urine Negative Normal (applies to non-numeric resu lts) [facility] Bilirubin,Urine Negative Normal (applies to non-numeric results) [facility] Urobilinogen,Urine 0.2-1.0 Normal (applies to non-numer ic results) [facility] Leukocyte Esterase,Urine Negative Normal (applies to non -numeric results) [facility] Nitrite,Urine Negative Normal (applies to non-numeric re sults) [facility] RBC,Urine None Seen Normal (applies to non-numeric resul ts) [facility] WBC,Urine None Seen Normal (applies to non-numeric resul ts) [facility] Casts,Urine None Seen Normal (applies to non-numeric resu lts) [facility] Squamous Cells,Urine None Seen [facility] Bacteria,Urine None Seen [facility] ital Mucus,Urine None [facility] ID Date Data Source [id number] 05/19/2020 10:15:00 AM EDT [facility] Name Value Range Interpretation Code Description Data Estella rce(s) Supporting Document(s) C4 Complement 50 mg/dL 13-39 Very abnormal (applies to non-num carolann units [facility] Test performed [place] [address] ID Date Data Source [id number] 05/19/2020 10:15:00 AM EDT [facility] Name Value Range Interpretation Code Description Data Estella rce(s) Supporting Document(s) [place] Lupus Tech Interpretation Normal (applies to non-numeric results) [facility] Lupus PT Normal (applies to non-numeric results) [facility] Lupus PT INR Normal (applies to non-numeric result s) [facility] Lupus APTT Normal (applies to non-numeric results) [facility] Lupus DRVVT Screen Ratio Normal (applies to non -numeric results) [facility] ID Date Data Source [id number] 05/19/2020 10:14:00 AM EDT [facility] Name Value Range Interpretation Code Description Data Estella rce(s) Supporting Document(s) C4 Complement,S result 50 mg/dL 13-39 [facility] Test performed or referred by The [address] [address] ID Date Data Source [id number] 05/19/2020 10:14:00 AM EDT [facility] Name Value Range Interpretation Code Description Data Estella rce(s) Supporting Document(s) [place] Lupus Tech Interpretation Normal (applies to non-numeric results) [facility] RESULT: See Lupus Anticoagulant Interp. [place] Lupus PT result 9.4 - 12.5 Normal (applies to non-numer ic results) [facility] [place] Lupus PT INR result 0.9-1.1 Normal (applies to non-n umeric results) [facility] ADDITIONAL INFORMATIO N Standard intensity warfarin therapeutic range: 2.0 to 3.0 High intensity warfarin therapeutic range: 2.5 to 3.5 [place] Lupus APTT result 33 sec 25 - 37 Normal (applies to non-num carolann results) [facility] [place] Lupus DRVVT Scrn Ratio res <1.20 Way [facility] Test Performed by: [place] [address] Heel Seam Rubber: Steven Victor M.D. Ph.D.; CLIA# [id number] [place] DRVVT Mix Ratio Reflex <1.20 Way [facility] Test [place]formed [place]: [place] [address] Heel Seam Rubber: Steven Victor M.D. Ph.D.; CLIA# [id number] [place] DRVVT Confirm Ratio Reflex <1.20 Way [facility] Test Performed by: [place] [address] Heel Seam [employer]ber: Steven Victor M.D. Ph.D.; CLIA# [id number] [place] Thrombin Time Reflex Normal (applies to non- numeric results) [facility] REFERENCE VALUE------ 15.8 - 24.9 Test Performed by: [address] [address] Heel Seam [employer]ber: Steven Victor M.D. Ph.D.; CLIA# [id number] [place] Lupus Reviewed By result Normal (applies to non-numeric results) [facility] RESULT: Dori Raygoza M.D., Ph.D. [place] Special Coag Interp Rfx Normal (applies to n on-numeric results) [facility] IMPRESSION: 1) Data are consistent with [...] anticoagulant by this methodology. Test Performed by: [address] [address] Heel Se[employer]ber: Steven Victor M.D. Ph.D.; CLIA# [id number] ID Date Data Source [id number] 04/16/2020 06:07:00 PM [facility] Name Value Range Interpretation Code Description Data Estella rce(s) Supporting Document(s) Sodium 140 mmol/L 136-145 Normal (applies to non-numeric resul ts) [facility] Potassium 3.5-5.1 Normal (applies to non-numeric resul ts) [facility] Chloride 106 mmol/L 98-107 Normal (applies to non-numeric resul ts) [facility] Carbon Dioxide CO2 21-32 Normal (applies to non-numer ic results) [facility] Anion Gap 5.0-16.0 Normal (applies to non-numeric resul ts) [facility] BUN 6 mg/dL 7-[address] [facility] Creatinine,Serum 0.7-1.2 Below low normal [facility] GFR >60 Normal (applies to non-numeric results) [facility] Glucose Level 135 mg/dL 60-99 Above high normal [facility] Reference range is only applicable when patient is fasting Note the following drug interference: Sulfasalazine Sulfapyridine Can see falsely depressed Can see falsely elevated result with up to 17% results with up to 11% decrease in measurement increase in measurement Recommend patients be collected for this test prior to administration of either drug. Calcium 8.5-10.1 Normal (applies to non-numeric resul ts) [facility] Bilirubin,Total 0.1-1.9 Normal (applies to non-numeric results) [facility] SGOT(AST) 12 U/L 15-[address] [facility] Note the following drug interference: Sulfasalazine Sulfapyridine Can see falsely depressed Can see falsely elevated result with up to 10% results with up to 10% decrease in measurement increase in measurement Recommend patients be collected for this test prior to administration of either drug. SGPT(ALT) 23 U/L 12-78 Normal (applies to non-numeric resul ts) [facility] Note the following drug interference: Sulfasalazine Sulfapyridine Can see falsely depressed Can see falsely elevated result with up to 29% results with up to 10% decrease in measurement increase in measurement Recommend patients be collected for this test prior to administration of either drug. Alkaline Phosphatase 179 U/L 38-126 Above high normal [facility] can increase Alkaline Phosp le vels up to 2 times the normal adult value. Normal values for children and adolescents are 2 to 3 times the normal adult value. Total Protein 6.0-8.2 Normal (applies to non-numeric re sults) [facility] Albumin Level 3.4-5.0 Below low normal [facility] ID Date Data Source [id number] 04/19/2020 12:36:00 PM EDT [facility] Name Value Range Interpretation Code Description Data Estella rce(s) Supporting Document(s) C3 Complement 254 mg/dL 81-157 Very abnormal (applies to non-num carolann units [facility] Test performed [place] [address] ID Date Data Source [id number] 04/19/2020 12:21:00 PM EDT [facility] Name Value Range Interpretation Code Description Data Estella rce(s) Supporting Document(s) C3 Complement,S result 254 mg/dL [address] [facility] Test performed [place] [address] ID Date Data Source [id number] 04/17/2020 05:51:00 AM EDT [facility] Value Range Interpretation Code Description Data Estella rce(s) Supporting Document(s) CRP,Wide Range result <3.00 [facility] Test [facility] By[facility] [address] [place] [address] Director: Benito Skaggs MD ID Date Data Source [id number] 04/16/2020 10:17:00 PM EDT [facility] Name Value Range Interpretation Code Description Data Estella rce(s) Supporting Document(s) C-Reactive Protein,Wide Range <3.00 Above high normal [facility] Test Performed By: [facility] [address] [place] [address] Director: Benito Skaggs MD ID Date Data Source [id number] 04/16/2020 06:07:00 PM [facility] Value Range Interpretation Code Description Data Estella rce(s) Supporting Document(s) White Blood Count 3.5-10.5 Above high normal [facility] Red Blood Count 3.90-5.00 Normal (applies to non-numeric results) [facility] Hemoglobin 12.0-15.5 Below low normal [facility] ospital Hematocrit 34.9-44.5 Below low normal [facility] Mean Corpuscular Volume 81.2-95.1 Below low normal [facility] Mean Corpuscular Hgb 25.6-32.2 Normal (applies to non-num carolann results) [facility] Mean Corpuscular Hgb Conc 32.0-36.0 Normal (applies to no n-numeric results) [facility] Red Cell Distribution Width 11.9-15.5 Normal (appli es to non-numeric results) [facility] Platelet Count 276 x10 3/uL 150-450 Normal (applies to non-numeric results) [facility] Mean Platelet Volume 9.4-12.4 Normal (applies to non-num carolann results) [facility] Neutrophils% (Auto) 31.0-71.0 Above high normal [facility] Lymphocytes% (Auto) 20.0-55.0 Below low normal [facility] Monocytes% (Auto) 4.0-12.0 Below low normal [facility] Eosinophils% (Auto) 1.0-8.0 Below low normal [facility] Basophils% (Auto) 0.0-2.0 Normal (applies to non-numeri c results) [facility] Immature Granulocytes% (Auto) 0.0-2.0 Normal (cecily lies to non-numeric results) [facility] Neutrophils# (Auto) 1.50-6.20 Above high normal [facility] Lymphocytes# (Auto) 1.20-4.00 Normal (applies to non-nume margie results) [facility] Monocytes# (Auto) 0.00-0.90 Normal (applies to non-numeri c results) [facility] Eosinophils# (Auto) 0.00-0.50 Normal (applies to non-nume margie results) [facility] Basophils# (Auto) 0.00-0.20 Normal (applies to non-numeri c results) [facility] Immature Granulocytes# (Auto) 0.00-7.00 No rmal (applies to non-numeric results) [facility] ID Date Data Source [id number] 04/16/2020 01:19:30 PM EDT [facility] Name Value Range Interpretation Code Description Data Estella rce(s) Supporting Document(s) Progress Note [facility] [id number]/[id number]F1FDgVHuLiBpAwOkI5 m [file] [id number]== ID Date Data Source [id number] 04/16/2020 10:31:24 AM EDT [facility] Name Value Range Interpretation Code Description Data Estella rce(s) Supporting Document(s) Color of Urine [facility] Clarity of Urine [facility] Glucose [Mass/volume] in Urine by Test strip Negative [facility] Bilirubin.total [Presence] in Urine by Test strip Negative [facility] Ketones [Mass/volume] in Urine by Test strip Negative [facility] Specific gravity of Urine by Test strip 1.015 1.005-1.025 [facility] Hemoglobin [Presence] in Urine by Test strip Negative [facility] pH of Urine by Test strip 6.0 5.0-8.0 [facility] Protein [Mass/volume] in Urine by Test strip Negative [facility] Urobilinogen [Units/volume] in Urine by Test strip 0.2 {Ehrlich_U}/ dL 0.2-1.0 [facility] Nitrite [Presence] in Urine by Test strip Negative [facility] Leukocyte esterase [Presence] in Urine by Test strip Negat socrates [facility] ID Date Data Source [id number] 04/06/2020 08:36:55 AM EDT [facility] Name Value Range Interpretation Code Description Data Estella rce(s) Supporting Document(s) Progress Note [facility] JUFTJl6hOrVCFcQr71/OUSsaXIMjv2RaXDynKGh3IZveJUSvD1FfIHT6nM9qQJV0DPlRHaQvEmUuZRN9 lbm [file] ICAgICAgICAgICAgICAgICAgICAgICAgICAgICAgICAgICAgICAgICAgICAgICAgICAgICAgICAgICAg ICAgICAgICAgICAgICAgICAgICAgICAgICAgICAgICAgICAgICAgDQogICAgICAgICAgICAgICAgICAg ICAgICAgICAgICAgICAgICAgICAgICAgICAgICAgIC AgICAgICAgICAgICAgICAgICAgICAgICAgICAgICAgICAgICAgICAgICAgICAgICAgDQogICAgICAgIC AgICAgICAgICAgICAgICAgICAgICAgICAgICAgICAgICAgICAgICAgICAgICAgICAgICAgICAgICAgIC AgICAgICAgICAgICAgICAgICAgICAgICAgICAgICAg DQogICAgICAgICAgICAgICAgICAgICAgICAgICAgICAgICAgICAgICAgICAgICAgICAgICAgICAgICAg ICAgICAgICAgICAgICAgICAgICAgICAgICAgICAgICAgICAgICAgICAgDQogICAgICAgICAgICAgICAg ICAgICAgICAgICAgICAgICAgICAgICAgICAgICAgIC AgICAgICAgICAgICAgICAgICAgICAgICAgICAgICAgICAgICAgICAgICAgICAgICAgICAgDQogICAgIC AgICAgICAgICAgICAgICAgICAgICAgICAgICAgICAgICAgICAgICAgICAgICAgICAgICAgICAgICAgIC AgICAgICAgICAgICAgICAgICAgICAgICAgICAgICAg ICAgDQogICAgICAgICAgICAgICAgICAgICAgICAgICAgICAgICAgICAgICAgICAgICAgICAgICAgICAg ICAgICAgICAgICAgICAgICAgICAgICAgICAgICAgICAgICAgICAgICAgICAgDQogICAgICAgICAgICAg ICAgICAgICAgICAgICAgICAgICAgICAgICAgICAgIC AgICAgICAgICAgICAgICAgICAgICAgICAgICAgICAgICAgICAgICAgICAgICAgICAgICAgICAgDQogIC AgICAgICAgICAgICAgICAgICAgICAgICAgICAgICAgICAgICAgICAgICAgICAgICAgICAgICAgICAgIC AgICAgICAgICAgICAgICAgICAgICAgICAgICAgICAg ICAgICAgDQogICAgICAgICAgICAgICAgICAgICAgICAgICAgICAgICAgICAgICAgICAgICAgICAgICAg NARiVMOnSBYaLHVwCRFtQZMtLCQkYNCwNNKgCSMiOAOcJYQiVSTaSBAnAATuAUZnHXa1P7mlALKgOKSg KY5zBEf6Az6+NFrBJkCeLDG9thCktI3DXA9yx6VfGS zwAZPyw6PbSDs8XM9LDBMmHMmtYU7HAGiipe1ZUGChSHSjhWGUx1gvYgYsPII6UKEeZncmFE4MRMIuT2 dioeVaANMbXNDSEPpiSZAPPC3TDsYbB7GsbC50JGILKw8+RBcgoaVnKejMJyO0SAAyt3SuYEw6GV2ICS CaCgzuc5XqBhWpQSZUVSegLC5OFWH4XKR6REDrRa0Q JTHzW099elHwTW3PXy2UNjLuQI9itj1SUnCoDOHxSbkVMze3JOxfDA1QeSWqHJvCxx3yeiIpjeAEr6Ow ekQnkBOAoKEagM9qSEJjV7KfnIBrqD8lKPXVEy8gBTMkSW1rEn3sVYKcWHGdYbNwRHGOYP3YPZNvFOEx rNCrOCBnCXZSIO5ZWGyxIEI7XGEuwaVwfAXhZDwbJQ 9QYXJlbnQgMjQgMCBSDQo+Xq1CFN3he0ArHAxxObAnCG4byw5PUFaLIyDfJ8V7iFJmN8S7RZfrPh9ZLG CzUQCyWgKaPXUHMIzjNW8PDX2eeaO0FZ1UzXMrUYJyASIjsCGzLGi3N88ewHXhKAldEL1XBRW+Penny+Pg 6IEFPiACEtLKRdZoNsZMNJMdAgD4VlC9SWu8XpU7Xx BN31oUslxyEkPLhrWB6UNS3bPXGeVBIQHT7CxODhgR3vgdAhEYImCDMKNiXiU09cnWOiVBZcJHQdLIUx Wt2JDQRaH7QzwuXtdGcrlcWyCJRlMHHFVC3LZJticzXqzCLfmConMK05yNkhHU6GWh4VLkFpXS1yjz9C kGMjCl9ZFNJgKz3XPQCbRYOjUFWmFAT9XBVdYgOsGG ctAQNnMDIyBVL3SHSwHHMyQX9PYwRgYLYsNjQ5MwHgDAIjFGWtgd7PSDBxPSOhZWE3MGZzSYCkFKRjSL ltOIRzJCKsIRA7VUIoSBVoSA6LBtUkZVYpOHKjFdmuJPAzUEWroq1NSCWhRXUbZIFeNWJiPUYgTCMoEH alVYNxWJP1Xke0BGRlKEEuFU7JOuZaVRMtHNA5XOJh FRAkAVDlkv4RHMUiKREgKsU0BBMiXQScNDYqCMkyXJSvNGM2QrN9GDAvQFTmOQ9SPtAwWBQmTJu8QKqu POZjEPZzkv1UCMZsIKXlBNy4XnOaSPQyRAWcAJxsSURwWBX0KFh0YURzFPCpWK2YOtNhVUYpQFzuDyNp WLHzBFBkhu1QBLVySGZtOUO5SqSeZGLtTKKzQUyfTR PdBRJvNOMnAZOkBSKdVW4UPrUqCESfHeIqChMtGLOqMALzhm8YQNKoDUFvPWW5SRJiAFRnHPOpXJszIF CaOKMgQvG1ANGjYVAkRI1GAhCxUKOtMmG2IatnHSYqMNJwjz4ZBFMxRQKcJrk9DBXaZVWkFKGjXExgNO VdDVOhYVM1HOCbCTGbEX8JXqSxXUGoOhFcORArQFEw DEKrsc0GTZDxTWMeUPr8FWWuYOAtPDTjEPrdUYAsNWN2QCunHQLaUGJzTI9CNyJmKEPaArJgBpGaPCMt RRLtei2NkAMjlAlffx0WGAuSNi9JkQciYLR7XKnxBj4ulYYxGwHsRXEOWo4WdxCoXCBpHFLAGGazEHWc KHNeFhNpFQV9WfWeVtK5CSI9LlQoMZYfGkQlQOAaOt WzBtP6EDUvFVQ6PfxvGLFkWQLsWAnmVYI1VVD9R9QpIwMuTgQ+PY8kYUd+Fv2Ak7KcghG4saOnTJhtNE Q9WJ1EUHDAT5FVPq== ID Date Data Source [id number] 04/04/2020 07:09:57 AM EDT [facility] Name Value Range Interpretation Code Description Data Estella rce(s) Supporting Document(s) GLU CHALLENGE TEST @ 135 mg/dL (<140) [facility] LITERATURE SUGGESTS RESULTS <140 MG/DL I N A FEMALE RULE OUT GESTATIONAL DIABETES.PATIENTS WITH RESULTS > OR = 140 MAY NEED AGLUCOSE TOLERANCE TEST FOLLOW UP. NOREFERENCE RANGE FOR NON- PATIENTS.PERFORMED AT [address] [facility] [address] ID Date Data Source [id number] 04/06/2020 04:22:45 PM EDT [facility] Name Value Range Interpretation Code Description Data Estella rce(s) Supporting Document(s) DRVVT SCREEN @ 41.4 s (<44.1) [facility] [place] LUPUS ANTICOAGULANT IS NOT DETECTED IN [facility]. IF CLINICALHISTORY STRONGLY SUGGESTS THE PRESENCE OF ALUPUS ANTICOAGULANT, FURTHER TESTINGIS RECOMMENDED. APTT @ 26.2 s (22.0-34.3) Lab [facility] A NORMAL APTT DOES NOT RULE OUT THE PRES ENCEOF A LUPUS ANTICOAGULANT. IF CLINICAL HISTORYIS STRONGLY SUGGESTIVE, FURTHER TESTING ISRECOMMENDED. CARDIOLIPIN IGA @ 1 APL (0-12) [facility] CARDIOLIPIN IGG @ 3 GPL (0-15) [facility] CARDIOLIPIN IGM @ 18 MPL (0-12) H [facility] ID Date Data Source [id number] 04/03/2020 11:49:35 PM EDT [facility] Name Value Range Interpretation Code Description Data Estella rce(s) Supporting Document(s) PROTEIN,URINE 27 mg/dL [facility] URINE PROTEIN MAY BE FALSELY ELEVATEDDUR ING TREATMENT WITH AMINOGLYCOSIDESDUE TO METHOD INTERFERENCE. PROTEIN/24HR 81 mg/(24.h) (0-150) [facility] ID Date Data Source [id number] 04/03/2020 11:49:35 PM EDT [facility] [place] Name Value Range Interpretation Code Description Data Estella rce(s) Supporting Document(s) CREATININE,URINE 211.00 mg/dL [facility] CREATININE/24 HR 0.63 g/(24.h) (0.60-2.50) [facility] ID Date Data Source [id number] 04/03/2020 11:26:37 PM EDT [facility] Name Value Range Interpretation Code Description Data Estella rce(s) Supporting Document(s) HOURS OF COLLECTION 24 h [facility] URINE VOLUME 300 mL (800-1800) L [facility] ID Date Data Source [id number] 04/02/2020 07:53:00 PM EDT [facility] DATE OF EXAM: 04/02/2020US OB [...] within normal limits Professional interpretation performed at [facility] .End of diagnostic report for accession: [id number] Interpreted: Shirin Robert MDTranscribed: 04/02/2020 07:48 PMSigned: 04/02/2020 07:53 PM Shirin Robert MD [facility] # [id number] BILL # [id number] Name Value Range Interpretation Code Description Data Estella rce(s) Supporting Document(s) ID Date Data Source [id number] 04/02/2020 02:27:00 PM EDT [facility] DATE OF EXAM: 04/02/2020LIMITED OBSTETRI PANDA SONOGRAM [...] visualized placental abruption Professional interpretation performed at [facility] [phone].End of diagnostic report for accession: [id number] Interpreted: Aston Moreno MDTranscribed: 04/02/2020 02:26 PMSigned: 04/02/2020 02:27 PM Aston Moreno MD ------- [facility] # [id number] [facility] # [id number] Name Value Range Interpretation Code Description Data Estella rce(s) Supporting Document(s) ID Date Data Source [id number] 04/09/2020 09:47:16 PM EDT [facility] Name Value Range Interpretation Code [...] the context of clinical presentation. Performed by [employer], [address] [facility] [facility],[place] [id number] www.[employer], Roger Menon MD, Lab. Director ID Date Data Source [id number] 04/08/2020 01:05:06 AM EDT [facility] Name Value Range Interpretation Code Description Data Estella rce(s) Supporting Document(s) [id number] 1 IGA 1 KENDRA [facility] Reference range: 0 to 20 Performed by [employer], [address] [facility],[place] [id number] www.[employer], Roger Menon MD, Lab. Director ID Date Data Source [id number] 04/06/2020 03:09:27 PM EDT [facility] Name Value Range Interpretation Code Description Data Estella rce(s) Supporting Document(s) CARDIOLIPIN IGA @ 1 APL (0-12) [facility] INTERPRET ATION OF RESULTS: < 12 UNITS NEGATIVE 12 - 20 UNITS EQUIVOCAL > 20 UNITS POSITIVE The following result was obtained withthe INOVA QUANTA Lite CAROLYN IgA III SHERI.Results obtained with other manufacturers'assay methods may not be used interchangeably.The magnitude of the reported IgA levelcannot be correlated to an endpoint titer. CARDIOLIPIN IGG @ 3 GPL (0-15) [facility] INTERPRET ATION OF RESULTS: < 15 UNITS [...] CARDIOLIPIN IGM @ 18 MPL (0-12) H [facility] INTERPRET ATION OF RESULTS: < 12 UNITS NEGATIVE 12 - 19 UNITS EQUIVOCAL 20 - 79 UNITS MOD POSITIVE > 79 UNITS HIGH POSITIVE The following result was obtained withthe [employer]OVA QUANTA Lite CAROLYN IgM III SHERI.Results obtained with other manufacturers'assay methods may not be used interchangeably.The magnitude of the reported IgM levelcannot be correlated to an endpoint titer. ID Date Data Source [id number] 04/04/2020 12:49:22 PM EDT [facility] SPECIMEN DESCRIPTION VAGINAL/RECT ALCULTURE RESULTS NEGATIVE: BETA HEMOLYTIC STREPTOCOCCI GROUP B B Y PCRREPORT STATUS FINAL 04/04/2020 Name Value Range Interpretation Code Description Data Estella rce(s) Supporting Document(s) ID Date Data Source [id number] 04/02/2020 06:58:20 PM EDT [facility] Name Value Range Interpretation Code Description Data Estella rce(s) Supporting Document(s) MARGARETH CREWS (NFET) [facility] PERFORMED AT [address] [place] [address] ID Date Data Source [id number] 04/02/2020 05:56:27 PM EDT [facility] Name Value Range Interpretation Code Description Data Estella rce(s) Supporting Document(s) TREPONEMA IGG/IGM @ (NEG) Lab [facility] ID Date Data Source [id number] 04/02/2020 02:44:21 PM EDT [facility] SPECIMEN DESCRIPTION VAGINAL SPEC IMENRESULT NEGATIVE FOR TRICHOMONAS VAGINALIS BY DNA PROBE NEGATIVE FOR GARDNERELLA VAGINALIS BY DNA PROBE NEGATIVE FOR TREASURE SPECIES BY DNA PROBEPERFORMED AT [address] [facility] [address] REPORT STATUS FINAL 04/02/2020 Name Value Range Interpretation Code Description Data Estella rce(s) Supporting Document(s) ID Date Data Source [id number] 04/02/2020 02:38:54 PM EDT [facility] SPEC EXP DATE 04/05/2020PATI ENT ABO/Rh O POSITIVEANTIBODY SCREEN NEGATIVETESTING SITE PERFORMED AT [address] [place] [address] [id number] BANK COMMENT BLOOD TYPE CONFIRMED. Name Value Range Interpretation Code Description Data Estella rce(s) Supporting Document(s) TYPE AND SCREEN [facility] PATIENT ABO/Rh O POSITIVE ID Date Data Source [id number] 04/02/2020 02:13:07 PM EDT [facility] Name Value Range Interpretation Code Description Data Estella rce(s) Supporting Document(s) URIC ACID 3.6 mg/dL (2.6-6.0) [facility] [place] ID Date Data Source [id number] 04/02/2020 02:13:07 PM EDT [facility] Name Value Range Interpretation Code Description Data Estella rce(s) Supporting Document(s) LDH 139 U/L (84-246) [facility] [place] ID Date Data Source [id number] 04/02/2020 02:13:07 PM EDT [facility] Name Value Range Interpretation Code Description Data Estella rce(s) Supporting Document(s) SODIUM 140 mmol/L (136-145) [facility] POTASSIUM 4.0 mmol/L (3.6-5.2) [facility] CHLORIDE 110 mmol/L (100-108) H [facility] CO2 23 mmol/L (22-31) [facility] ANION GAP 7 mmol/L (7-16) [facility] UREA NITROGEN 3 mg/dL (7-24) L [facility] CREATININE 0.44 mg/dL (0.60-1.00) L [facility] BUN/CREAT RATIO 6.8 RATIO (10.0-20.0) L [facility] GLUCOSE 74 mg/dL (70-99) [facility] CALCIUM 9.1 mg/dL (8.4-10.2) [facility] TOTAL PROTEIN 6.5 g/dL (6.4-8.2) [facility] ALBUMIN 2.8 g/dL (3.5-4.6) L [facility] GLOBULIN 3.7 g/dL (2.7-4.3) [facility] ALB/GLOB RATIO 0.8 RATIO [facility] ALKALINE PHOSPHATASE 174 U/L (45-117) H [facility] BILIRUBIN,TOTAL 0.2 mg/dL (0.0-1.0) [facility] PLEASE NOTE:Total bilirubin results may be falselyelevated in patients taking Eltrombopag. AST (SGOT) 14 U/L (11-39) [facility] ALT (SGPT) 23 U/L (12-78) [facility] GFR >60 ml/min/1.73m2 (>59) [facility] GFR ( AMER) >60 ml/min/1.73m2 (>59) [facility] GFR INTERPRETATION [facility] --NORMAL KIDNEY FUNCTION OR MILD DISEASE - GFR >OR= 60CHRONIC KIDNEY DISEASE - GFR 15 - 59RENAL FAILURE - GFR <15 Est. GFR calculation based on the MDRDstudy equation, which assumes a steadystate for creatinine. Est. GFR should notbe used for medication dosing. ID Date Data Source [id number] 04/02/2020 02:04:26 PM EDT [facility] [place] Name Value Range Interpretation Code Description Data Estella rce(s) Supporting Document(s) PT 10.3 s (9.2-11.9) [facility] PERFORMED AT [address] [facility] [address] INR 0.98 [facility] SUGGESTED THERAPEUTIC RANGES USING INR F ORSTABILIZED ANTICOAGULATED PATIENTS:STANDARD DOSE THERAPY INR 2.0-3.0 DVT, PE, PREVENT DVT OR EMBOLISMHIGH DOSE THERAPY INR 2.5-3.5 PREVENT EMBOLISM FROM MECHANICAL HEART VALVE ID Date Data Source [id number] 04/02/2020 02:04:26 PM EDT [facility] Name Value Range Interpretation Code Description Data Estella rce(s) Supporting Document(s) APTT 28.8 s (22.0-34.3) [facility] PERFORMED AT [address] [facility] [place] [place] [address] ID Date Data Source [id number] 04/02/2020 01:55:29 PM EDT [facility] Name Value Range Interpretation Code Description Data Estella rce(s) Supporting Document(s) WBC 12.0 10*3/uL (4.1-11.0) H [facility] RBC 4.18 10*6/uL (4.00-5.40) [facility] HGB 10.9 g/dL (12.0-16.0) L [facility] HCT 33.8 % (36.0-47.0) L [facility] [address] [facility] [address] MCV 80.9 fL (80.0-95.0) [facility] MCH 26.1 pg (27.0-32.0) L [facility] MCHC 32.3 g/dL (32.0-36.0) [facility] RDW 14.9 % (10.5-14.5) H [facility] PLT 239 10*3/uL (150-450) [facility] MPV 9.7 fL (7.1-10.7) [facility] NEUT % 71.6 % (35.0-75.0) [facility] LYMPH % 20.2 % (16.0-52.0) [facility] MONO % 5.3 % (0.0-8.0) [facility] EOS % 2.7 % (0.0-5.0) [facility] BASO % 0.2 % (0.0-4.0) [facility] NEUT # 8.6 10*3/uL (1.8-7.7) H [facility] LYMPH # 2.4 10*3/uL (1.2-4.8) [facility] MONO # 0.6 10*3/uL (0.0-0.8) [facility] Eosinophils [#/volume] in Blood by Automated count 0.3 10*3/uL (0.0-0 .5) [facility] BASO # 0.0 10*3/uL (0.0-0.2) [facility] ID Date Data Source [id number] 04/02/2020 02:09:41 PM EDT [facility] [place] Name Value Range Interpretation Code Description Data Estella rce(s) Supporting Document(s) PROTEIN,URINE 18 mg/dL [facility] URINE PROTEIN MAY BE FALSELY ELEVATEDDUR ING TREATMENT WITH AMINOGLYCOSIDESDUE TO METHOD INTERFERENCE. CREATININE,URINE 116.00 mg/dL [facility] URINE TP/CR RATIO 0.16 RATIO (0.00-0.20) [facility] [place] ID Date Data Source [id number] 03/20/2020 08:30:26 AM EDT [facility] Service Cmnt XXX-Imp : NoneMicroorganism XXX Cult : DNA probe was POSITIVE for Gardnerella vaginalis.DNA probe was POSITIVE for Treasure species.DNA probe assay was NEGATIVE for Trichomonas vaginalis. Name Value Range Interpretation Code Description Data Estella rce(s) Supporting Document(s) ID Date Data Source [id number] 03/19/2020 02:32:18 PM EDT [facility] Name Value Range Interpretation Code Description Data Estella rce(s) Supporting Document(s) Progress Note [facility] [id number] lbm [file] [id number] ID Date Data Source [id number] 03/19/2020 01:36:50 PM EDT [facility] Name Value Range Interpretation Code Description Data Estella rce(s) Supporting Document(s) Color of Urine [facility] Clarity of Urine [facility] Glucose [Mass/volume] in Urine by Test strip Negative [facility] Bilirubin.total [Presence] in Urine by Test strip Negative [facility] Ketones [Mass/volume] in Urine by Test strip Negative [facility] Specific gravity of Urine by Test strip 1.020 1.005-1.025 [facility] Hemoglobin [Presence] in Urine by Test strip Negative [facility] pH of Urine by Test strip 7.0 5.0-8.0 [facility] Protein [Mass/volume] in Urine by Test strip Negative [facility] Urobilinogen [Units/volume] in Urine by Test strip 0.2 {Ehrlich_U}/ dL 0.2-1.0 [facility] Nitrite [Presence] in Urine by Test strip Negative [facility] Leukocyte esterase [Presence] in Urine by Test strip Negat socrates [facility] ID Date Data Source [id number] 02/26/2020 09:49:30 AM EDT [facility] Name Value Range Interpretation Code Description Data Estella rce(s) Supporting Document(s) Progress Note [facility] [id number] lbm [file] [id number]/F5kOEYOsmurRbtQgNIkKZ+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/[id number]/IPN [file] ID Date Data Source [id number] 02/24/2020 07:31:36 PM EDT [facility] Name Value Range Interpretation Code Description Data Estella rce(s) Supporting Document(s) Leukocytes [#/volume] in Blood by Automated count 12.7 10*3/uL 4-10 H [facility] Erythrocytes [#/volume] in Blood by Automated count 4.24 10*6/uL 4.1- 5.3 [facility] Hemoglobin [Mass/volume] in Blood 11.3 g/dL 11.5-15.5 L [facility] Hematocrit [Volume Fraction] of Blood by Automated count 33.9 % 3 6-45 L [facility] Erythrocyte mean corpuscular volume [Entitic volume] by Auto mated count 79.9 fL 80-96 L [facility] Erythrocyte mean corpuscular hemoglobin [Entitic mass] by Automated count 26.8 pg 27-33 L [facility] Erythrocyte mean corpuscular hemoglobin concentration [Mass/volume] by Automated count 33.5 g/dL 32.0-36.0 [facility] Erythrocyte distribution width [Ratio] by Automated count 16.3 % 11.5-14.5 H [facility] Platelets [#/volume] in Blood by Automated count 221 10*3/uL 150-400 [facility] Differential cell count method - Blood [facility] Neutrophils/100 leukocytes in Blood by Automated count 71 % [facility] Lymphocytes/100 leukocytes in Blood by Automated count 21 % [facility] Monocytes/100 leukocytes in Blood by Automated count 6 % [facility] Eosinophils/100 leukocytes in Blood by Automated count 2 % [facility] Basophils/100 leukocytes in Blood by Automated count 0 % [facility] Neutrophils [#/volume] in Blood by Automated count 8.92 10*3/uL 1.8-7 .0 [facility] Lymphocytes [#/volume] in Blood by Automated count 2.72 10*3/uL 1.2-4 .0 [facility] Monocytes [#/volume] in Blood by Automated count 0.79 10*3/uL 0-0.8 [facility] Eosinophils [#/volume] in Blood by Automated count 0.27 10*3/uL 0-0.5 [facility] Basophils [#/volume] in Blood by Automated count 0.04 10*3/uL 0-0.2 [facility] Nucleated erythrocytes/100 leukocytes [Ratio] in Blood by Automated count 0 /100{WBCs} 0-0 [facility] ID Date Data Source [id number] 02/24/2020 07:59:35 PM [facility] Value Range Interpretation Code Description Data Estella rce(s) Supporting Document(s) Lactate dehydrogenase [Enzymatic activit y/volume] in Serum or Plasma by Lactate to pyruvate reaction 123 U/L 122-214 [facility] ID Date Data Source [id number] 02/24/2020 07:59:35 PM EDT [facility] Name Value Range Interpretation Code Description Data Estella rce(s) Supporting Document(s) Albumin [Mass/volume] in Serum or Plasma by Bromocresol green (BCG) dye binding method 3.5 g/dL 3.5-5.2 [facility] Bilirubin.total [Mass/volume] in Serum or Plasma <1.2 [facility] Calcium [Mass/volume] in Serum or Plasma 9.6 mg/dL 8.6-10.0 [facility] Chloride [Moles/volume] in Serum or Plasma 103 mmol/L 98-107 [facility] Creatinine [Mass/volume] in Serum or Plasma 0.51 mg/dL 0.50-0.90 [facility] Glucose [Mass/volume] in Serum or Plasma 78 mg/dL 70-140 [facility] Alkaline phosphatase [Enzymatic activity/volume] in Serum or Plasma 125 U/L 35-104 H [facility] Potassium [Moles/volume] in Serum or Plasma 4.2 mmol/L 3.4-5.1 [facility] Protein [Mass/volume] in Serum or Plasma 6.6 g/dL 6.4-8.3 [facility] Sodium [Moles/volume] in Serum or Plasma 137 mmol/L 136-145 [facility] Aspartate aminotransferase [Enzymatic activity/volume] in Serum or Plasma 12 U/L <32 [facility] Urea nitrogen [Mass/volume] in Serum or Plasma 5 mg/dL 6-20 L [facility] Osmolality of Serum or Plasma by calculation 281 mosm/kg 275-300 [facility] Creatinine/Urea nitrogen [Mass Ratio] in Serum or Plasma 10 [facility] Bicarbonate [Moles/volume] in Serum 21 mmol/L 22-29 L [facility] Alanine aminotransferase [Enzymatic activity/volume] in Seru m or Plasma 17 U/L <33 [facility] Anion gap 3 in Serum or Plasma 13 mmol/L 8-15 [facility] Albumin/Globulin [Mass Ratio] in Serum or Plasma 1.1 [facility] Glomerular filtration rate/1.73 sq M pre dicted among non-blacks [Volume Rate/Area] in Serum or Plasma by Creatinine-based formula (MDRD) >6 0 [facility] Glomerular filtration rate/1.73 sq M pre dicted among blacks [Volume Rate/Area] in Serum or Plasma by Creatinine-based formula (MDRD) >60 [facility] ID Date Data Source [id number] 02/24/2020 07:59:35 PM EDT [facility] Name Value Range Interpretation Code Description Data Estella rce(s) Supporting Document(s) Urate [Mass/volume] in Serum or Plasma 3.2 mg/dl 2.4-5.7 [facility] ID Date Data Source [id number] [facility]18[facility] Name Value Range Interpretation Code Description Data Estella rce(s) Supporting Document(s) Volume of Urine 900 ml [facility] Collection duration of Urine 24 U [facility] Collection of urine specimen start time 1600 [facility] Collection of urine specimen start date [facility] Collection of urine specimen end date [facility] ID Date Data Source [id number] 02/25/2020 01:56:40 PM [facility] Name Value Range Interpretation Code Description Data Estella rce(s) Supporting Document(s) Protein [Mass/time] in 24 hour Urine 0.08 g/(24.h) 0-0.15 [facility] ID Date Data Source [id number] 02/24/2020 03:38:28 PM EDT [facility] Name Value Range Interpretation Code Description Data Estella rce(s) Supporting Document(s) Color of Urine [facility] Clarity of Urine [facility] Glucose [Mass/volume] in Urine by Test strip Negative [facility] Bilirubin.total [Presence] in Urine by Test strip Negative [facility] Ketones [Mass/volume] in Urine by Test strip Negative [facility] Specific gravity of Urine by Test strip 1.020 1.005-1.025 [facility] Hemoglobin [Presence] in Urine by Test strip Negative [facility] pH of Urine by Test strip 7.5 5.0-8.0 [facility] Protein [Mass/volume] in Urine by Test strip Negative [facility] Urobilinogen [Units/volume] in Urine by Test strip 0.2 {Ehrlich_U}/ dL 0.2-1.0 [facility] Nitrite [Presence] in Urine by Test strip Negative [facility] Leukocyte esterase [Presence] in Urine by Test strip Negat socrates [facility] ID Date Data Source [id number] 02/11/2020 02:05:03 PM EDT [facility] Name Value Range Interpretation Code Description Data Estella rce(s) Supporting Document(s) Progress Note [facility] [id number] lbm [file] [id number] ID Date Data Source [id number] 02/14/2020 03:05:30 AM EDT [facility] Name Value Range Interpretation Code Description Data Estella rce(s) Supporting Document(s) Results [facility] (NOTE)AFP Tetra*Screen Negative* Gestational age 19.3 WEEKS [facility] Gestational age method [facility] (NOTE) 07/05 [age] delivery 31[age]0 yr [facility] Mother's race [facility] Body weight 267 lbs [facility] Insulin dependent diabetes mellitus [Presence] [facility] Multiple [facility] Ipqfh-8-Kgkmkarseza [Mass/volume] in Serum or Plasma 60.8 ng/mL [facility] Eddoj-7-Xtshkmsiafh [Multiple of the median] adjusted in Ser um or Plasma 1.50 [facility] Choriogonadotropin [Units/volume] in Serum or Plasma 67745 mIU/mL [facility] Choriogonadotropin [Multiple of the median] adjusted in Serum or Plasma 1.08 [facility] Estriol (E3).unconjugated [Mass/volume] in Serum or Plasma 1.03 ng/mL [facility] Estriol (E3).unconjugated [Multiple of the median] adj usted in Serum or Plasma 0.67 [facility] Inhibin A [Mass/volume] in Serum or Plasma 226.55 pg/mL [facility] Inhibin A [Multiple of the median] adjusted in Serum or Plasma 1.74 [facility] Neural tube defect risk [Likelihood] in Fetus 5468 [facility] Trisomy 21 risk [Likelihood] in Fetus 936 [facility] Trisomy 21 risk [Likelihood] Based on maternal age 613 [facility] Trisomy 18 risk [Likelihood] in Fetus [facility] Trisomy 18 risk [Likelihood] Based on maternal age [facility] Comment(NOTE)Interpretation: Screen Nega tiveThis result is screen [...] uE3 identifies 60% ofTrisomy 18 pregnancies. The [employer] recommends amniocentesis be offered to women age 35 andolder.Recalculations are not recommended when gestational dating by LMP andultrasound are within 10 days. Comments [facility] (NOTE)Elvi Mcduffie, Ph.D., [facility] Genetics Technical DirectorReferences: Available Upon Request.Multiples Of Median Cutoffs Abbreviation Definitions For AFP Elevations IDD- Insulin Dep DiabetesSingleton 2.5 Black 2.8 OSBR- Open Spina BifidaIDD 2.0 Twins 4.5 RiskDSR Cutoff 1:270 DSR- Down Syndrome RiskT18 Cutoff 1:100 T18- Trisomy 18Down Syndrome and Trisomy 18 screening are consideredInvestigationalFor further inquiries contact [employer] Servicesat [phone].A courtesy copy of this report has been sent to [phone] At: [facility] [id number] [facility], [place] [id number] Saldivar MD Ph:[phone] ID Date Data Source [id number] 02/11/2020 01:02:05 PM EDT [facility] Name Value Range Interpretation Code Description Data Estella rce(s) Supporting Document(s) Color of Urine [facility] Clarity of Urine [facility] Glucose [Mass/volume] in Urine by Test strip Negative [facility] Bilirubin.total [Presence] in Urine by Test strip [facility] Ketones [Mass/volume] in Urine by Test strip Negative [facility] Specific gravity of Urine by Test strip 1.005-1.025 [facility] Hemoglobin [Presence] in Urine by Test strip [facility] pH of Urine by Test strip 5.5 5.0-8.0 [facility] Protein [Mass/volume] in Urine by Test strip Negative [facility] Urobilinogen [Units/volume] in Urine by Test strip 0.2 {Ehrlich_U}/ dL 0.2-1.0 [facility] Nitrite [Presence] in Urine by Test strip Negative [facility] Leukocyte esterase [Presence] in Urine by Test strip Negat socrates [facility] ID Date Data Source [id number] 02/05/2020 06:37:00 PM EDT [facility] W[facility]OME [facility] Rec #: [id number] 20 : 1990 Age/Sex: 29F Date of Service: 02/05/20 DISPOSITION SUMMARY Discharge Summary [facility] Name:Winsome Akers Emergency Department Age:29 yrs Sex:Female [...] rce(s) Supporting Document(s) ID Date Data Source [id number] 02/05/2020 06:37:00 PM EDT [facility] Name: WINSOME AKERS [facility] Rec #: [id number] 21 : 1990 Age/Sex: 29F Date of Service: 02/05/20 PHYSICIAN CHART Physician Documentation [facility] Name: Winsome Akers Age: 29 yrs Sex: [...] Patient is currently under investigation for covid. 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 Preferred Language: Sri Lankan. ROS: 20:38 Constitutional: See HPI. All other [...] ED course: I was informed by the agronomy supervisor the ml8 patient was seen and [...] she recently visited.. 02/04 19:47 Order name: [facility] EDMS Dispensed Medications: 19:35 Drug: [...] Ordered Location: Home/Self Care ml8 Condition: Good ml8 Diagnosis - Epileptic Seizure ml8 Followup: ml8 - With: Carole Glaser - When: 2 - 3 days - Reason: Discharge Instructions: - Discharge Summary Sheet ml8 - Seizure, Adult ml8 Forms: - Medication Reconciliation ml8 Prescriptions: - ondansetron 8 mg Oral - take 8 milligrams by SUBLINGUAL route 4 times per ml8 day As needed; 20 tablet; Refills: 0, Product Selection Permitted Signatures: Dispatcher [employer] EDMS Leslie Che RN RN Cesar Rico, DO 8 Radha [...] ultrasound but left before care was completed.. ml8 20:39 20:36 This 29 yrs old Female presents to [facility] ER via Walk-In with complaints of Seizure. 8 20:40 20:39 ED course: Ultrasound showing single live IUP. 8 Patient was loaded with Keppra and given Zofran. Will provide with Zofran to go and prescriptions. Explained to the patient the importance of notifying providers that she is under investigation for coronavirus. And that she needs to inform the providers about the hospitals that she recently visited.. 8 Name Value Range Interpretation Code Description Data Estella rce(s) Supporting Document(s) ID Date Data Source [id number] 02/05/2020 06:37:00 PM EDT [facility] Name: WINSOME AKERS [facility] Rec #: [id number] 21 : 1990 Age/Sex: 29F Date of Service: 02/05/20 NURSE CHART Nurse's Notes [facility] Name: Winsome Akers Age: 29 yrs Sex: Female : 1990 Arrival Date: 02/05/2020 Time: 18:37 Bed 3 Private MD: Carole Glaser T Diagnosis: Epileptic Seizure- Presentation: 02/04 18:39 Transition of care: brisa cooper was not received from another [facility] setting of care. Presenting complaint: Friend states [...] COVID-19? No. 18:39 Method Of Arrival: [facility] 18:39 Acuity: Urgent - 3 dk2 18:53 [...] SIRS or Sepsis criteria is not present. 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 Preferred Language: Sri Lankan. Screenin:17 AUDIT 1. How often do you [...] is oriented to person, place and time. 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 Strength is normal [...] is oriented to person, place and time. 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 Strength is normal [...] stomach upset. Pt. wanted to let this proposal manager writer know she did not leave the doctors yesterday AMA, and that she had d/c instructions. This proposal manager writer aware. Pt. noted to be more [...] is at the bedside, Seizure precautions initiated. monitoring manager on. Pulse on is on. NIBP on. 19:23 Inserted saline lock: 20 gauge in right forearm. nnq 19:37 Airborne precautions initiated. pt and family member nnq wearing mask upon entry into ER. 19:51 Primary Nurse role handed off by Ethan Saha, RN skb 19:52 Elizabeth Cody RN is Primary Nurse. skb 19:58 Radiology: The [...] 24 hour call back attempted, no answer emelia Signatures: Phillip Sandhu sfo1 Tammie Ibarra RN RN 1 Leslie Che RN RN dk2 Cesar Simpson DO DO ml8 Radha Wright [...] rce(s) Supporting Document(s) ID Date Data Source [id number] 02/06/2020 06:40:00 AM EDT [facility] Name: WINSOME AKERS : 1990 A ge/Sex: 29F Ordering Provider: Cesar Simpson DO Med Rec #: [id number] Reg Status: [facility] ER Room #: Date of Service: 02/05/20 Report Number: [id number] cc:BRISA Scanlon Send Report To: [id number] US/US OB Limited Study Reason for exam: [...] Dictation Date/Time: 02/05/202014 Transcribed Date/Time: 02/06/20 0640 Usability Strategist: SIXTO Name Value Range Interpretation Code Description Data Estella rce(s) Supporting Document(s) ID Date Data Source [id number] 02/04/2020 10:38:00 PM EDT [facility] Name Value Range Interpretation Code Description Data Estella rce(s) Supporting Document(s) BLOOD TYPE PATIENT O Positive Normal (applies to non-numer ic results) [facility] ANTIBODY SCREEN NEGATIVE Normal (applies to non-numeric results) [facility] ID Date Data Source [id number] 02/06/2020 05:07:00 AM EDT [facility] Imaging Services Department Imaging Report [address] [address] %(RAD)RES..mtdd.print.filter("line") Name: WINSOME AKERS : 1990 Age/Sex: 29F Ordering Provider: BRISA Yun Med Rec #: [id number] Reg Status: DEP ER Room #: Date of Service: 02/04/20 Report Number: [id number] cc:BRISA Yun; PCP None Send Report To: [id number] US/US OB Limited Study Reason for exam: [...] PM EDT by: Bridger Milligan MD Diplomate, [place] [employer] Time portable performed: Fluoroscopy time in seconds: Number of Exposures: Contrast Agent in ml: Method of Administration: REPORT SIGNATURE ON FILE Reported By: Bridger Milligan MD 02/06/20 0507 Dictation Date/Time: 02/04/20 2146 Transcribed Date/Time: 02/06/20506 Usability Strategist: SIXTO Name Value Range Interpretation Code Description Data Estella rce(s) Supporting Document(s) ID Date Data Source [id number] 02/24/2020 10:46:00 PM EDT [facility] Name Value Range Interpretation Code Description Data Estella rce(s) Supporting Document(s) TS ABO result Normal (applies to non-numeric re sults) [facility] TS Rh result Normal (applies to non-numeric res ults) [facility] TS ABS result Normal (applies to non-numeric re sults) [facility] Test Performed By: [facility] [address] [place] [address] Director: Benito Skaggs MD ID Date Data Source [id number] 02/06/2020 02:27:00 PM EDT [facility] Name Value Range Interpretation Code Description Data Estella rce(s) Supporting Document(s) Levetiracetam result Very abnormal (applies to non-numeric units [facility] REFERENCE VALUE------ 12.0 - 46.0 ADDITIONAL INFORMATION This test was developed and its performance characteristics determined by [facility] in a manner consistent with CLIA requirements. This test has not been cleared or approved by the U.S. Food and Drug Administration. Test Performed by: [facility] [place] [address] Heel Seam Rubber: Steven Victor M.D. Ph.D.; CLIA# [id number] ID Date Data Source [id number] 02/06/2020 02:09:00 PM EDT [facility] Name Value Range Interpretation Code Description Data [facility] rce(s) Supporting Document(s) Levetiracetam result [facility] REFERENCE VALUE------ 12.0 - 46.0 ADDITIONAL INFORMATION This test was developed and its performance characteristics determined by [facility] in a manner consistent with CLIA requirements. This test has not been cleared or approved by the U.S. Food and Drug Administration. Test Performed by: [facility] [place] [address] Heel Seam Rubber: Steven Victor M.D. Ph.D.; CLIA# [id number] ID Date Data Source [id number] 02/05/2020 10:07:00 AM EDT [facility] Name Value Range Interpretation Code Description Data Estella rce(s) Supporting Document(s) TS ABO result Normal (applies to non-numeric resul ts) [facility] TS Rh result Normal (applies to non-numeric result s) [facility] TS ABS result Normal (applies to non-numeric resul ts) [facility] ID Date Data Source [id number] 02/04/2020 07:21:00 PM EDT [facility] Name Value Range Interpretation Code Description Data Estella rce(s) Supporting Document(s) D-Dimer,Quant 0.19-0.50 Above high normal [facility] The negative predictive value for DVT or [...] on anticoagulant therapy. ID Date Data Source [id number] 02/04/2020 07:15:00 PM [facility] Name Value Range Interpretation Code Description Data Estella rce(s) Supporting Document(s) Sodium 137 mmol/L 136-145 Normal (applies to non-numeric resul ts) [facility] Potassium 3.5-5.1 Below low normal [facility] Chloride 103 mmol/L 98-107 Normal (applies to non-numeric resul ts) [facility] Carbon Dioxide CO2 21-32 Normal (applies to non-numer ic results) [facility] Anion Gap 5.0-16.0 Normal (applies to non-numeric resul ts) [facility] BUN 6 mg/dL 7-18 Below low normal [facility] Creatinine,Serum 0.7-1.2 Normal (applies to non-numeric results) [facility] GFR >60 Normal (applies to non-numeric results) [facility] Glucose Level 90 mg/dL 60-99 Normal (applies to non-numeric re sults) [facility] Reference range is only applicable when patient is fasting Note the following drug interference: Sulfasalazine Sulfapyridine Can see falsely depressed Can see falsely elevated result with up to 17% results with up to 11% decrease in measurement increase in measurement Recommend patients be collected for this test prior to administration of either drug. Calcium 8.5-10.1 Normal (applies to non-numeric resul ts) [facility] Bilirubin,Total 0.1-1.9 Normal (applies to non-numeric results) [facility] SGOT(AST) 15 U/L 15-37 Normal (applies to non-numeric resul ts) [facility] Note the following drug interference: Sulfasalazine Sulfapyridine Can see falsely depressed Can see falsely elevated result with up to 10% results with up to 10% decrease in measurement increase in measurement Recommend patients be collected for this test prior to administration of either drug. SGPT(ALT) 31 U/L 12-78 Normal (applies to non-numeric resul ts) [facility] Note the following drug interference: Sulfasalazine Sulfapyridine Can see falsely depressed Can see falsely elevated result with up to 29% results with up to 10% decrease in measurement increase in measurement Recommend patients be collected for this test prior to administration of either drug. Alkaline Phosphatase 149 U/L 38-126 Above high normal [facility] can increase Alkaline Phosp le vels up to 2 times the normal adult value. Normal values for children and adolescents are 2 to 3 times the normal adult value. Total Protein 6.0-8.2 Normal (applies to non-numeric re sults) [facility] Albumin Level 3.4-5.0 Below low normal [facility] ID Date Data Source [id number] 02/04/2020 06:55:00 PM EDT [facility] Name Value Range Interpretation Code Description Data Estella rce(s) Supporting Document(s) White Blood Count 3.5-10.5 Above high normal [facility] Red Blood Count 3.90-5.00 Normal (applies to non-numeric results) [facility] Hemoglobin 12.0-15.5 Below low normal [facility] ospital Hematocrit 34.9-44.5 Normal (applies to non-numeric resul ts) [facility] Mean Corpuscular Volume 81.2-95.1 Below low normal [facility] Mean Corpuscular Hgb 25.6-32.2 Below low normal [facility] Mean Corpuscular Hgb Conc 32.0-36.0 Below low normal [facility] Red Cell Distribution Width 11.9-15.5 Above high normal [facility] Platelet Count 261 x10 3/uL 150-450 Normal (applies to non-numeric results) [facility] Mean Platelet Volume 9.4-12.4 Normal (applies to non-num carolann results) [facility] Neutrophils% (Auto) 31.0-71.0 Normal (applies to non-nume marige results) [facility] Lymphocytes% (Auto) 20.0-55.0 Normal (applies to non-nume margie results) [facility] Monocytes% (Auto) 4.0-12.0 Normal (applies to non-numeri c results) [facility] Eosinophils% (Auto) 1.0-8.0 Normal (applies to non-nume margie results) [facility] Basophils% (Auto) 0.0-2.0 Normal (applies to non-numeri c results) [facility] Immature Granulocytes% (Auto) 0.0-2.0 Normal (cecily lies to non-numeric results) [facility] Neutrophils# (Auto) 1.50-6.20 Above high normal [facility] Lymphocytes# (Auto) 1.20-4.00 Normal (applies to non-nume margie results) [facility] Monocytes# (Auto) 0.00-0.90 Normal (applies to non-numeri c results) [facility] Eosinophils# (Auto) 0.00-0.50 Normal (applies to non-nume margie results) [facility] Basophils# (Auto) 0.00-0.20 Normal (applies to non-numeri c results) [facility] Immature Granulocytes# (Auto) 0.00-7.00 No rmal (applies to non-numeric results) [facility] ID Date Data Source [id number] 02/06/2020 07:37:00 AM EDT [facility] COVID-19 Specimen Source [facility] Name Value Range Interpretation Code Description Data Estella rce(s) Supporting Document(s) SARS-CoV-2 RNA Normal (applies to non-numeric r esults) [facility] ID Date Data Source [id number] 02/05/2020 08:59:00 PM EDT [facility] COVID-19 Specimen Source [facility]OPHARYNGE[facility] Name Value Range Interpretation Code Description Data Estella rce(s) Supporting Document(s) SARS-CoV-2 RNA Undetected Normal (applies to non-numeric r esults) [facility] SARS-CoV-2 RNA is not detected. ------- ADDITIONAL INFORMATION Testing was performed using the anita SARS-CoV-2 assay ([employer] on the anita 6800 System. Fact sheets for this Emergency Use Authorization (EUA) assay can be found at the following links: For Healthcare Providers: https://www.fda.gov/media/871195/download For Patients: https://www.fda.gov/media/772102/download Test Performed by: [place] [address] Heel Seam Rubber: Steven Victor M.D. Ph.D.; CLIA# [id number] ID Date Data Source [id number] 02/04/2020 07:22:00 AM EDT [facility] This Respiratory Panel DOES NOT test for the Novel Coronovirus (2019- nCoV) from [facility]. If patient is suspected of having the [...] rce(s) Supporting Document(s) ID Date Data Source [id number] 02/03/2020 10:56:00 PM EDT [facility] This Respiratory Panel DOES NOT test for the Novel 2018- Coronovirus (2019- nCoV) from [facility]. If patient is suspected of having the Novel 2018 Coronovirus notify the Health Department IMMEDIATELY. Not detectedNot detectedNot detectedNot detectedNot detectedNot detectedNot detectedNot detectedNot detectedNot detectedNot detectedNot detectedNot detectedNot detected Methodology: Multiplexed PCR Reference Range: None detectedNot detectedNot detectedNot detectedNot detected Name Value Range Interpretation Code Description Data Estella rce(s) Supporting Document(s) ID Date Data Source [id number] 01/29/2020 12:06:48 PM EDT [facility] Name Value Range Interpretation Code Description Data Estella rce(s) Supporting Document(s) Progress Note [facility] YMHBWv8aZnFUGlMa14/VOSkgJKFgd9LiKIuzUQu5YMgjPOOfZ1OrNGI7wM8qUSS4TOlCBcYzViGpRnC1 [facility] [file] ICAgICAgICAgICAgICAgICAgICAgICAgICAgICAgIC LzTGKtHPFkXALwJY2GWWWiHPBxKPCvLQTpYQEtTMYdSNMeGIEbPRRzCPCrROInMRDhMSGyJYWnZSIaSU TpXGApHYPgGDMzYRBpYAWpGKZkXCQlZBRnHQTdWNHxADBxBMCaRVOgUMClTJAcTZDpIUOtDU5NLXBgUG AgICAgICAgICAgICAgICAgICAgICAgICAgICAgICAg ICAgICAgICAgICAgICAgICAgICAgICAgICAgICAgICAgICAgICAgICAgICAgICAgICAgICAgICAgICAg YLRoME4VQREnYFCoRMXcDNAnIUHyERWvDHNyVZHuOAMeGPTmEMXnAWHvKPJeOAZeJGBzBRWaAKZhFLJv ICAgICAgICAgICAgICAgICAgICAgICAgICAgICAgIC DoDSLzGLUcREAvLYKuLU3DOGLxGWAwJDQaWAOdGZMtYLFoLCPlSAXsSWSqWSVxXQCnMVXcECMfFRGqZJ QoZJHvXQWiBLRkPPPuFXZoRLWbJMOfQSIdUBQuQPVmUDJdFHLyLCYsKCDzYBZiNRQmOEJfDANhLC1ROQ AgICAgICAgICAgICAgICAgICAgICAgICAgICAgICAg ICAgICAgICAgICAgICAgICAgICAgICAgICAgICAgICAgICAgICAgICAgICAgICAgICAgICAgICAgICAg NVSgEGApUJ5EUCVvQOUsKRXyGTZfJBTuKBGfXKWqSIApMJEfKJHkFJMjMXVfVLPlPYOoJGQsWJIpNAJe ICAgICAgICAgICAgICAgICAgICAgICAgICAgICAgIC BsJEPrCDQxNBWrKJFvFEPnET1JPLOoZEAxIBSnKWYpMXKiOOZoLDCwBVUwAZGlCMLbVZEfPEBfIDSxOZ AgICAgICAgICAgICAgICAgICAgICAgICAgICAgICAgICAgICAgICAgICAgICAgICAgICAgICAgICAgIA 0KICAgICAgICAgICAgICAgICAgICAgICAgICAgICAg ICAgICAgICAgICAgICAgICAgICAgICAgICAgICAgICAgICAgICAgICAgICAgICAgICAgICAgICAgICAg EPRfTPWhYFZiRS8BDAUoJCIsKCXgPOMtTKHzISOoGUKbCIKcSSEiTXHdMMJiNJWpINDmAYArTKGwJUTu ICAgICAgICAgICAgICAgICAgICAgICAgICAgICAgIC SjPTVwRTDkTXRxQOLxDMHfNOLnUM9TIV90gHDak4E5ERRzIA9zrfp/Ao4AOIfdqhEujQXkZX4GZkIdFM 0bsa0FIpUwUV2nbr0IACbVDoGlG7D8bDEoJTCfBBPQQiJlY44iUDedJk92ZYijUAPgNyZcCYd4Iz8RCq GnS7djBIHkFzY7ZQEuGuUfUUoxFH2Ah2AlyJUkAXq+ Th3XNA9yu0RbCIezKZMiDU4bta9JJJdQRjHtR2InntZ5QVJoDKFtAe2HTQYhRAWtaMLvACWsYIPERrZu M5AulW88BKGVIp3+RLlmszRyOrtGFsVlFFIas6HjUVy2XH2PDTTgCAq5rPAyNSNtR0Yih2NwSc17SJPd PkkqQi0kLZR6FSUtWEEpbttkCABgBCMiTn4aLC4bEM MmNNBoHzXxGEJLXB6CKTReIFLckAClWTFxFCWRWD9NDRglOPJ1WVSeurTghIZtOOjhMV4MDDMzeoQcFS kgMCBSDQo+Vn0PDG9fc0OuHAprJNIpOK0iwf9BBWaCKwAbU5J2iYYtD7E5MGdiWc2VFDMeMGSqJHjpGX MEADstSH3QTN0khoP9PS6ZiIXbVFKwELAdkIQkHIl3 C11ehGXgTOufXY9SHKL+Penny+Wa5MLHXkGVUtPKByKkWeIMJMVpLbY1QsR4HWz2DwB7IoQA97rCdjbdVj TCvwTN7EAM3bELJsCQFMPH7DtBSryV3ibtZyTWTpXOCPKoDiS05usRXoZPPuWPF0VQShJh1PQCFbB8Jl kiQguLptplAsPZPkQLTBCU4PRWpmryUsmGTaxEitZP 25zPyiUI9SGi0MFvQhHY2ddu1JcAPgAx8RVCNmEm3FQTFnAFSsKKLtCYM6UILeOcYrBZlpLOVuCMFcQT C5AXWaUEHpUN5DArHaTXUjRKa1FNVqEPDaUZMjts1XUMEdQYVdKVSuPHTwQZMyPAAsLDghAAWhKZUnBL C8BAUwIJElNU8FQbCuPUXbHQCsVwCbCHHuNTHrlz6S ZCOjTCNgQlTeEtMrXKQpIRHpQSyvJVOpMZL0RBo6QPGbUVQuZU2JYyGiCPLoKIP7UIEdNPBaDNBtfo0I YMFkBVEkCSj4DBIsLOPjPTWlNDohRBTvEOY5WVO9PHYcCTVdHS4HQrXaIKHfJRNmGsXwCCDnOMCcyh2W TSUaEMCnRcPvBMFwLDUdITQcWXfwIBHmGBC1EHKpFR EyLVBvBJ3CRsYeFOQaPFc6QjnqELJaRHDyhf2QPRLcPMJzVFP8QLQsHDTsROTbHDokCVBrHMO9CrR2AY CwHCCeQG9GHbVjNLQbTBd0CpBnCNXkGVTxpo8ZWUVwXOVpDIm7OHVmTQFkCUUiQVlsRJIrCJWiSmUsLR HoFFAjNR6DTmVkSVQgNxJyFNDnACWcYESlwk1OGCSo HDNzLXJcUCDdSIXlDMAqJGh2hgXbzTEdOEx0JG2WZ9BsnoJdIrCAPu9Ni935OYHiKVYzLh4OV8cdXl1r VXZcFNFZPy7EBVk6XARuHTD4DVbuFWzlRmRbYAIkPtS7OlibWvBfZRxaTxp+IDxkMTIxMjVhNzAxODBm OaTnOAP1CxO7WELpUCZaNJU4HB3pABIQEl9+MEwdlQEskCsxLWTCEgLuSqr1ZQhxJMVBYp3Q ID Date Data Source [id number] 01/29/2020 11:55:58 AM EDT [facility] Name Value Range Interpretation Code Description Data Estella rce(s) Supporting Document(s) Color of Urine [facility] Clarity of Urine [facility] Glucose [Mass/volume] in Urine by Test strip Negative [facility] Bilirubin.total [Presence] in Urine by Test strip [facility] Ketones [Mass/volume] in Urine by Test strip Negative [facility] Specific gravity of Urine by Test strip 1.015 1.005-1.025 [facility] Hemoglobin [Presence] in Urine by Test strip [facility] pH of Urine by Test strip 7.0 5.0-8.0 [facility] Protein [Mass/volume] in Urine by Test strip Negative [facility] Urobilinogen [Units/volume] in Urine by Test strip 0.2 {Ehrlich_U}/ dL 0.2-1.0 [facility] Nitrite [Presence] in Urine by Test strip Negative [facility] Leukocyte esterase [Presence] in Urine by Test strip Negat socrates [facility] ID Date Data Source [id number] 01/20/2020 04:36:19 PM EDT [facility] Name Value Range Interpretation Code Description Data Estella rce(s) Supporting Document(s) Progress Note [facility] ZGICJi3tPeFBPiPh54/HDIgqVJJdy9BzSYgxFHu3WFysATNvJ7YnIQJ0wW3nBGM1EWcWVrXmVbFjSzBo lbm [file] ICAgICAgICAgICAgICAgICAgICAgICAgICAgICAgICAgICAgICAgICAgICAgICAgICAgICAgICAgICAg ICAgICAgICAgICAgICAgICAgICAgICAgICAgICAgICAgICAgDQogICAgICAgICAgICAgICAgICAgICAg ICAgICAgICAgICAgICAgICAgICAgICAgICAgICAgIC AgICAgICAgICAgICAgICAgICAgICAgICAgICAgICAgICAgICAgICAgICAgICAgDQogICAgICAgICAgIC AgICAgICAgICAgICAgICAgICAgICAgICAgICAgICAgICAgICAgICAgICAgICAgICAgICAgICAgICAgIC AgICAgICAgICAgICAgICAgICAgICAgICAgICAgDQog ICAgICAgICAgICAgICAgICAgICAgICAgICAgICAgICAgICAgICAgICAgICAgICAgICAgICAgICAgICAg ICAgICAgICAgICAgICAgICAgICAgICAgICAgICAgICAgICAgICAgDQogICAgICAgICAgICAgICAgICAg ICAgICAgICAgICAgICAgICAgICAgICAgICAgICAgIC AgICAgICAgICAgICAgICAgICAgICAgICAgICAgICAgICAgICAgICAgICAgICAgICAgDQogICAgICAgIC AgICAgICAgICAgICAgICAgICAgICAgICAgICAgICAgICAgICAgICAgICAgICAgICAgICAgICAgICAgIC AgICAgICAgICAgICAgICAgICAgICAgICAgICAgICAg DQogICAgICAgICAgICAgICAgICAgICAgICAgICAgICAgICAgICAgICAgICAgICAgICAgICAgICAgICAg ICAgICAgICAgICAgICAgICAgICAgICAgICAgICAgICAgICAgICAgICAgDQogICAgICAgICAgICAgICAg ICAgICAgICAgICAgICAgICAgICAgICAgICAgICAgIC AgICAgICAgICAgICAgICAgICAgICAgICAgICAgICAgICAgICAgICAgICAgICAgICAgICAgDQogICAgIC AgICAgICAgICAgICAgICAgICAgICAgICAgICAgICAgICAgICAgICAgICAgICAgICAgICAgICAgICAgIC AgICAgICAgICAgICAgICAgICAgICAgICAgICAgICAg ICAgDQogICAgICAgICAgICAgICAgICAgICAgICAgICAgICAgICAgICAgICAgICAgICAgICAgICAgICAg FGGzIKHnYNMeQJMxXXTeMFWzQYHqEQSvDBBjAAOfDTGyUEPsNAWcVRGeNQVgTEx7P2nmUIWfFHBfLV5h LYn8Vk4+THqVTxZpBIL4wtNyjT1EQH8uf2XlOFrjIO Fzh9VcUIm1TI6SASPtNTngLA3SKResue3RFVGbOHDmmJKEo8rrJzChGLD9YZHwHkwkDW1KWJGzK0dyqt DrZPEhRHMRFW0KKeGlK2EoyS80AILYCh3+DFppepLyJchTAlO8RCTfv8SgQAh2CF6UAUQjOdniw6PhBa IbDXRVBAcmXQ4VHHX8EKXrLUMdXm2QOYKhG082cyNy EY0JXh2ZCaKqSU8rsa2VMkFiSNXaIunKRgo5TFhpTP8AqCDpBAgKpe8lweGyhtQRq0EyfdYenVZTTZ6f NHTUXB1kd2PpVJzpQKDfJTLoZu7nIt4qTATtSKErQzWwPBYUWG4HYRHpIDHooWFtTCEcJHVKXK4YCMwu VXQ4IRDtskIqhMOpXNemUV1RUTNduoNuEQwiDAHLGA o+Gh3QTN4ai9DrNWzwENLcMG1wvn7FCVjSCcLoP7G7rXSdQ8L5EXnxCn5VNGDdLIUeIExcCHARKSzhYE 2EML3clzO4DU7SiMLrZVEkLXBudYHoMEl8E15bhMUlFPbsWA8MEBS+Penny+Pz1SGMXqMGVeKYMsWeMiGO IWVeRkY2RcU7VOr8XyQ8JnOG08tXqvozNeNWelSL6Q OM9fVYSdRGYOVE0RkDRclO3gaqXlFDNkUZTDTeWpS00khNBePRHsNUM6NEMeAe3YDRZxQ9PigtUcpCyr gfZrVBKxXXRRTK4WXWdqmbOupQCbeOgvCE15hMptBB0AJz5DFzUsGQ3til7XyQNyNk9UYQUeTj7ORVVj ZOHnBNLuBVY0KXHqScSuQCevHRGtBPFdRNG4ZJCmCH DsMZ3SFjFdYFSdLMK8TUWvWJEcPYUahw7BGLTpSUQqLDWzUoEsBGEoQOFeTMtmNMQnUUFqHRC1ZVTnBG ItFL8PLqLnULLgZWX8HEKqQBEsYWEckl6RFFUaWBUxUFf5FGAxJHBsEMLgEZzqUHObHAMyVYOxZNXqRI UkOZ0UVkHiGFAtGXItMDflSGAdTBCrbn3NNMMqBPYs UbK2KKJsHZGoXBJdJOedPQHbNFR2KwF9XMEqMBBvGI9NCaChYETwBGO7FyclELPqXINrnn2TZOZvFBQy ZSWdAeNsJMQyFBFkQAsxERPoJUK6KAhxYLUrPLDpDU8SRcQnNVMtLBOqHWclTKPfAUQdps4HPEMlNRLi TyMuYfLsNZSnJKOeRYrxRAQyLQP3MfV8XHGvOUWrPF 8UXrRoCBUaXRJ6KIPvFFPgJKAncd4ETAHjMEZxYwB0AxNfCRLpRROvTAucASOqLXJ3LyLdYZOvZDAfNA 5QAkUcYKGsCOj1PRJdWRYbZWNyxw7QSCXnYFVzJQj2FQXqXXJnJXGkGLw7oaUigBEtYTv1XW2UQ1Hlva DbOxDCJo2Wa821QLClYUEgUu6NB5hxFj2fUHPvMIBA Fq5MKWl8GkZ8LIE3RoOxV8CxFGS7JoZ9GEokGFHuR3OsIlZoWRs+AYh9OEc8FOV3KbAcUlVyDHodYwek NcVvQxBfAdHjOpE5KH3nPCYXCi8+CSkmqNQqxSydHHSFPwO4ZUe5GGhdPWSSHx4H ID Date Data Source [id number] 01/16/2020 12:49:00 PM [facility] Imaging Services Department Imaging Report [address] [place] [address] %(RAD)RES..mtdd.print.filter("line") Name: WINSOME AKERS : 1990 Age/Sex: 29F Ordering Provider: Carole Glaser MD Med Rec #: [id number] Reg Status: DEP REF Room #: Date of Service: 01/16/20 Report Number: [id number] cc:BRISA cSanlon; Carole Glaser MD Send Report To: [id number] MRV/MRV BRAIN Reason for exam: MIGRAINE FINDINGS: [...] Date/Time: 01/16/20 1157 Transcribed Date/Time: 01/16/20 1249 Usability Strategist: TRINIDAD Name Value Range Interpretation Code Description Data Estella rce(s) Supporting Document(s) ID Date Data Source [id number] 01/16/2020 12:43:00 PM [facility] Imaging Services Department Imaging Report [address] [address] %(RAD)RES..mtdd.print.filter("line") Name: WINSOME AKERS : 1990 Age/Sex: 29F Ordering Provider: Carole Glaser MD Med Rec #: [id number] Reg Status: DEP REF Room #: Date of Service: 01/16/20 Report Number: [id number] cc:BRISA Scanlon; Carole Glaser MD Send Report To: [id number] MRI/MRI Brain (Inc Stem) No Con Reason [...] Date/Time: 01/16/20 1157 Transcribed Date/Time: 01/16/20 1243 Usability Strategist: TRINIDAD Name Value Range Interpretation Code Description Data Estella rce(s) Supporting Document(s) ID Date Data Source [id number] 01/09/2020 06:56:39 PM [facility] Name Value Range Interpretation Code Description Data [facility] rce(s) Supporting Document(s) Progress Note [facility] [id number]/KRLkmJNGam7IqLOaaIOs6BPspCXAcD0TrCHP6gN1aVZY6HPeVZcXeSoIwHlG3 [facility] [file] [id number] ID Date Data Source [id number] 01/08/2020 02:11:28 PM [facility] Name Value Range Interpretation Code Description Data Estella rce(s) Supporting Document(s) Color of Urine [facility] Clarity of Urine [facility] Glucose [Mass/volume] in Urine by Test strip Negative [facility] Bilirubin.total [Presence] in Urine by Test strip Negative [facility] Ketones [Mass/volume] in Urine by Test strip Negative [facility] Specific gravity of Urine by Test strip 1.025 1.005-1.025 [facility] Hemoglobin [Presence] in Urine by Test strip Negative [facility] pH of Urine by Test strip 7.5 5.0-8.0 [facility] Protein [Mass/volume] in Urine by Test strip Negative [facility] Urobilinogen [Units/volume] in Urine by Test strip 0.2 {Ehrlich_U}/ dL 0.2-1.0 [facility] Nitrite [Presence] in Urine by Test strip Negative [facility] Leukocyte esterase [Presence] in Urine by Test strip Negat socrates [facility] ID Date Data Source [id number] 12/25/2019 05:20:02 PM [facility] Name Value Range Interpretation Code Description Data Estella rce(s) Supporting Document(s) Leukocytes [#/volume] in Blood by Automated count 11.3 10*3/uL 4-10 H [facility] Erythrocytes [#/volume] in Blood by Automated count 4.53 10*6/uL 4.1- 5.3 [facility] Hemoglobin [Mass/volume] in Blood 11.2 g/dL 11.5-15.5 [facility] Hematocrit [Volume Fraction] of Blood by Automated count 35.4 % 3 6-45 L [facility] Erythrocyte mean corpuscular volume [Entitic volume] by Auto mated count 78.2 fL 80-96 [facility] Erythrocyte mean corpuscular hemoglobin [Entitic mass] by Automated count 24.6 pg 27-33 L [facility] Erythrocyte mean corpuscular hemoglobin concentration [Mass/volume] by Automated count 31.5 g/dL 32.0-36.0 [facility] E[facility]th[facility] distribution width [Ratio] by Automated count 17.2 % 11.5-14.5 H [facility] Platelets [#/volume] in Blood by Automated count 283 10*3/uL 150-400 [facility] ID Date Data Source [id number] 12/25/2019 06:15:24 PM [facility] Name Value Range Interpretation Code Description Data Estella rce(s) Supporting Document(s) Choriogonadotropin.beta subunit [Moles/volume] in Seru m or Plasma 57087 m[IU]/mL <5 H [facility] Confirmed ID Date Data Source [id number] 12/25/2019 06:15:24 PM [facility] Name Value Range Interpretation Code Description Data Estella rce(s) Supporting Document(s) Albumin [Mass/volume] in Serum or Plasma by Bromocresol green (BCG) dye binding method 4.0 g/dL 3.5-5.2 [facility] Bilirubin.total [Mass/volume] in Serum or Plasma <1.2 [facility] Calcium [Mass/volume] in Serum or Plasma 9.3 mg/dL 8.6-10.0 [facility] Chloride [Moles/volume] in Serum or Plasma 100 mmol/L 98-107 [facility] Creatinine [Mass/volume] in Serum or Plasma 0.50 mg/dL 0.50-0.90 [facility] Glucose [Mass/volume] in Serum or Plasma 77 mg/dL 70-140 [facility] Alkaline phosphatase [Enzymatic activity/volume] in Serum or Plasma 83 U/L 35-104 [facility] Potassium [Moles/volume] in Serum or Plasma 3.3 mmol/L 3.4-5.1 L [facility] Protein [Mass/volume] in Serum or Plasma 7.0 g/dL 6.4-8.3 [facility] Sodium [Moles/volume] in Serum or Plasma 137 mmol/L 136-145 [facility] Aspartate aminotransferase [Enzymatic activity/volume] in Serum or Plasma 13 U/L <32 [facility] Urea nitrogen [Mass/volume] in Serum or Plasma 5 mg/dL 6-20 L [facility] Osmolality of Serum or Plasma by calculation 280 mosm/kg 275-300 [facility] Creatinine/Urea nitrogen [Mass Ratio] in Serum or Plasma 10 [facility] Bicarbonate [Moles/volume] in Serum 22 mmol/L 22-29 [facility] Alanine aminotransferase [Enzymatic activity/volume] in Seru m or Plasma 22 U/L <33 [facility] Anion gap 3 in Serum or Plasma 15 mmol/L 8-15 [facility] Albumin/Globulin [Mass Ratio] in Serum or Plasma 1.3 [facility] Glomerular filtration rate/1.73 sq M pre dicted among non-blacks [Volume Rate/Area] in Serum or Plasma by Creatinine-based formula (MDRD) >6 0 [facility] Glomerular filtration rate/1.73 sq M pre dicted among blacks [Volume Rate/Area] in Serum or Plasma by Creatinine-based formula (MDRD) >60 [facility] ID Date Data Source [id number] 12/25/2019 06:15:24 PM [facility] Value Range Interpretation Code Description Data Estella rce(s) Supporting Document(s) Urate [Mass/volume] in Serum or Plasma 2.6 mg/dl 2.4-5.7 [facility] ID Date Data Source [id number] 12/25/2019 06:36:00 PM [facility] Value Range Interpretation Code Description Data Estella rce(s) Supporting Document(s) Lactate dehydrogenase [Enzymatic activit y/volume] in Serum or Plasma by Lactate to pyruvate reaction 151 U/L 122-214 [facility] ID Date Data Source [id number] 12/26/2019 09:24:21 AM [facility] Value Range Interpretation Code Description Data Estella rce(s) Supporting Document(s) Lead [Mass/volume] in Blood <5 [facility] Abnormal Range 5 - 9 ug/dL (Associate d with adverse health effects) 10 - 44 ug/dL (High) 45 - 69 ug/dL (Urgent) >/= 70 ug/dL (Emergent)Testing done by electrothermal atomicabsorption with Zeeman background correction ID Date Data Source [id number] 12/26/2019 12:32:07 PM [facility] Value Range Interpretation Code Description Data Estella rce(s) Supporting Document(s) Sjogrens syndrome-B extractable nuclear Ab [Units/volume] in Serum by Immunofluorescence 9 [AU]/mL 0-99 [facility] ID Date Data Source [id number] 12/26/2019 12:32:07 PM [facility] Value Range Interpretation Code Description Data Estella rce(s) Supporting Document(s) Sjogrens syndrome-A extractable nuclear Ab [Units/volume] in Serum by Immunofluorescence 67 [AU]/mL 0-99 [facility] ID Date Data Source [id number] 12/29/2019 10:05:48 PM [facility] Value Range Interpretation Code Description Data Estella rce(s) Supporting Document(s) Complement total hemolytic CH50 [Units/volume] in Serum or Plasma >41 [facility] (NOTE) Age Mal e Female 1 - [...] out of range values.Performed At: RN [facility] [address] [id number] Ontiveros MD Ph:[id number] ID Date Data Source [id number] 12/30/2019 11:25:18 AM [facility] Value Range Interpretation Code Description Data Estella rce(s) Supporting Document(s) Rubella virus IgG Ab [Presence] in Serum or Plasma by Immunoassay [facility] ID Date Data Source [id number] 12/26/2019 01:18:51 PM [facility] Value Range Interpretation Code Description Data Estella rce(s) Supporting Document(s) Lupus anticoagulant neutralization plate let [Time] in Platelet poor plasma by Coagulation assay 12.2 sec <8.0 H [facility] ID Date Data Source [id number] 12/29/2019 09:12:49 AM [facility] Value Range Interpretation Code Description Data Estella rce(s) Supporting Document(s) Cardiolipin IgM Ab [Interpretation] in Serum 1.6 U/mL <20.0 [facility] Negative results do not rule out Antipho spholipid syndrome. Additional APL testing should be considered.FAX [id number] Cardiolipin IgG Ab [Interpretation] in Serum <20.0 [facility] Negative results do not rule out Antipho spholipid syndrome. Additional APL testing should be considered.FAX [id number] ID Date Data Source [id number] 12/29/2019 09:12:49 AM [facility] Value Range Interpretation Code Description Data Estella rce(s) Supporting Document(s) Beta 2 glycoprotein 1 IgG Ab [Units/volume] in Serum <20.0 [facility] Negative results do not rule out Antipho spholipid syndrome. Other APL testing should be considered.FAX [id number] ID Date Data Source [id number] 12/29/2019 09:12:49 AM [facility] Value Range Interpretation Code Description Data Estella rce(s) Supporting Document(s) Beta 2 glycoprotein 1 IgM Ab [Units/volume] in Serum <20.0 [facility] Negative results do not rule out Antipho spholipid syndrome. Other APL testing should be considered.FAX [id number] ID Date Data Source [id number] 12/25/2019 07:47:00 PM [facility] Value Range Interpretation Code Description Data Estella rce(s) Supporting Document(s) Hepatitis C virus Ab [Presence] in Serum or Plasma by Immuno assay Non Reactive [facility] No serological evidence of active infect ion. If recent exposure is suspected, test for HCV RNA. ID Date Data Source [id number] 12/25/2019 07:47:00 PM [facility] Value Range Interpretation Code Description Data Estella rce(s) Supporting Document(s) Hepatitis B virus surface Ag [Presence] in Serum or Plasma b y Immunoassay Non Reactive [facility] No active or previous infection. Suscept ible to infection. ID Date Data Source [id number] 12/25/2019 06:06:45 PM [facility] Value Range Interpretation Code Description Data Estella rce(s) Supporting Document(s) HIV 1+2 Ab+HIV1 p24 Ag [Presence] in Serum or Plasma by Immu noassay Non Reactive [facility] Negative for HIV-1 p24 antigenand HIV-1/ HIV-2 antibodies. Nolaboratory evidence of HIVinfection. ID Date Data Source [id number] 12/25/2019 05:59:36 PM [facility] Value Range Interpretation Code Description Data Estella rce(s) Supporting Document(s) ABO and Rh group [Type] in Blood [facility] Blood group antibody screen [Presence] in Serum or Plasma [facility] Blood bank comment [facility] ID Date Data Source [id number] 12/17/2019 10:15:27 AM [facility] Value Range Interpretation Code Description Data Estella rce(s) Supporting Document(s) Progress Note [facility] CVNXWh6yHeIRKgFu58/RIUatGRJzk7WoFGokFCa8NCvsCYPwJ4XaPUJ6sY0pBDP8MLjBTuZiJpZiYnF7 lbm [file] RVr5PLPsLLGrFDS8UkJ+ZR5qOEy+Zh1Qj8WvnjJ7joEpPDlzVZJ3BF3VFJWNB1PGJg== ID Date Data Source [id number] 12/17/2019 10:15:22 AM EST [facility] Name Value Range Interpretation Code Description Data Estella rce(s) Supporting Document(s) Progress Note [facility] NZIZNj1kYhLRMuUr60/MLNcgOZQkh8YaKItoCIs5LCatADUyW0LmKKA2fU9yTXD7UYfDRdCrScDuVwI3 lbm [file] ICAgICAgICAgICAgICAgICAgICAgICAgICAgICAgICAgICAgICAgICAgICAgICAgICAgICAgICAgICAg ICAgICAgICAgICAgICAgICAgICAgICAgICANCiAgICAgICAgICAgICAgICAgICAgICAgICAgICAgICAg ICAgICAgICAgICAgICAgICAgICAgICAgICAgICAgIC AgICAgICAgICAgICAgICAgICAgICAgICAgICAgICAgICAgICANCiAgICAgICAgICAgICAgICAgICAgIC AgICAgICAgICAgICAgICAgICAgICAgICAgICAgICAgICAgICAgICAgICAgICAgICAgICAgICAgICAgIC AgICAgICAgICAgICAgICAgICANCiAgICAgICAgICAg ICAgICAgICAgICAgICAgICAgICAgICAgICAgICAgICAgICAgICAgICAgICAgICAgICAgICAgICAgICAg ICAgICAgICAgICAgICAgICAgICAgICAgICAgICANCiAgICAgICAgICAgICAgICAgICAgICAgICAgICAg ICAgICAgICAgICAgICAgICAgICAgICAgICAgICAgIC AgICAgICAgICAgICAgICAgICAgICAgICAgICAgICAgICAgICAgICANCiAgICAgICAgICAgICAgICAgIC AgICAgICAgICAgICAgICAgICAgICAgICAgICAgICAgICAgICAgICAgICAgICAgICAgICAgICAgICAgIC AgICAgICAgICAgICAgICAgICAgICANCiAgICAgICAg ICAgICAgICAgICAgICAgICAgICAgICAgICAgICAgICAgICAgICAgICAgICAgICAgICAgICAgICAgICAg ICAgICAgICAgICAgICAgICAgICAgICAgICAgICAgICANCiAgICAgICAgICAgICAgICAgICAgICAgICAg ICAgICAgICAgICAgICAgICAgICAgICAgICAgICAgIC AgICAgICAgICAgICAgICAgICAgICAgICAgICAgICAgICAgICAgICAgICANCiAgICAgICAgICAgICAgIC AgICAgICAgICAgICAgICAgICAgICAgICAgICAgICAgICAgICAgICAgICAgICAgICAgICAgICAgICAgIC AgICAgICAgICAgICAgICAgICAgICAgICANCiAgICAg ICAgICAgICAgICAgICAgICAgICAgICAgICAgICAgICAgICAgICAgICAgICAgICAgICAgICAgICAgICAg ICAgICAgICAgICAgICAgICAgICAgICAgICAgICAgICAgICANCjw/sWSuJ2whkOEpczE8L3wmUa0DIz4Y UF6tx2LgHKLeAYpnkzRfJelNJeCbPVMaWbnUYxw1AO itUF8LjCKzO0PeW0CoAOcqBC6IRAJkIMRzqEMsZAVnOMErVnP9PXKyCWtkWV9CeAMdDRwhKHChZWQtTc FxKQWyKOGtPDKjNFBvMVEZXNWaZYErQzBnOQMtLAIlXW3OKBUkW556zmQwEj6WWd9VJrXkVB3gov3VGa UnZWRcUsqQIys5YVpgCS2RcQZzhBZuRfJlHDWHJnIf Y0nut9TiEsPsWKXSBXevID8Qb3HxjIFzIOj+He5SPT1pj5VhQEexJuKqFD3onv5EXZaYTsWuY3RtxMls SFXyn7faCOVrNM7inYBfTAE1NXGloGooyWGYDQnlb6vlONeuPXLlXXFiVX9jTC9hHPEsRSXjJvCgKCAM JT2OPHWcMCDzxKYmRDCsXKZHJK0LWPrzQRP0ISDznc IjlBJzACdrEA5POBJiqcMnFgJwXECMJBo+Si2CIR2hp8VrYYkzYxIvQD2eya3LYHsWStMnH7C5uKQgH1 P3GLnqKn0JAOHtJYHwQrDiVESMMHpnGQ7YEX3owmX5RY0LgHZpJFFfUEQppJJeSKz9F46ehJWpEXjvGU 0KICA+Penny+Ir8LPGOnFOMjLZLmXsDuCNRHLaQbU3Au L9RPc0ZxR3LuVE99aYyrqdAvGLtgAY8AQB9tYMYoTHBABL2FbRIxjU2bgrZrHWLqFVGGMcVsU53thEGs QQUfPXS8ULMtJb8TMURyH7QmupQuyTmaroWiSAIgZDNKWE5XJMxzokDyhSDgpTaxBY58rWofML4BPm9N BvTtEV3naa8KoGGiOx9TMTUmYY2VBLUqFIOzFVLxFW H7KNQoAhAcZXviWNBiPTZhLZP0DCEyNPCdGB6TBzFoKCFxBVi3SElwFXZfCLBopu8YNOZdLEY3URZ6NX OrRWGaYDDeNNkcHJPkNCLxXRV5AABhLNFkDH7ZOeIwDIFuZNM6NTGvBTYnYBEicz0CAMFbGHMeIDZlYd NwAOOkKUAaNNsySFImUXR7TQp2HAOmCTTjCP9VOqBz EQOcZFitFAHqUMNtIAAzhy4JOXBmAHIbIeLdZcFyATJzZVIuCInjUARlPSZdIqO2TDQrJPIfFV7INmBe MMRpYAP1SWJsJWExHFSsja8PADDtPFBaGNonMTEdHIVkDXBnTMgyEYTgFSP8ArMqDRIoADRxWZ4XVuHc VNFiRMa3DsIaVMChBXTcez5MRBOiSLSgUCXpIgOfQG CaKSDeSCwiPDKyPZCxNXFaYYGpUHZkOT3CNeDmIQWeRuR1FTQhGUZnQCWsix0EREQkLUErVAi3ZSUkVH ZvRENhQBrgSMGaEPVpQEQvDVQsWVOeTW5ATqIcWOUcVlSrBbEnAROgVOTssr3MWLKpIJThMqQyUWKwBP UgTFNoKVdzSMSfJFVsTKDqZZRzJARrTA7OPaYeVSWb FWT1ZGMuHFVbHZWmej0UCLAqBTV9OoY8BTTnLMGxJHCgGPatXQArVCB6CiP4FGRyNWHvPG2DCmMvJRNd WSpoOYYoNUSwRWKdzk1MIQDqVBQ2UtU4PbJhXZFvAWIyBKzyLDIfELD4QArtGLSsPLIbMD2VWeCkZRHh MUqaRjrbICUdAEPwth6TEBDcPBK9WQR0SmGcOGArVI KhFJveMTZyFVO1WBd1GYYdOKCnHR5JHqWnGJKnPMx1BCNsETZiSUWxda2KBAYlMPQ1KAr7IYUzHFUqVL NyFHmmLDHeXJMtDmC1LRIeDGBeQR4ILiVoNGYmViY8ZbscBMBnECBuka0HUENaKLB1EEp6ISGqCEIhAP OcUPohMXByOHDyGBLxKGCiUVErZZ1QAtFhVFjrOOTL Urd5DWjvB7l4KSYyHS6TV4Vsu5UhQdzqOEVQQGzzZO7kkbMpVPYyTh2BD8aMBcokWpR2OpwtDSO5Gjz0 CcFpUhIfOSm1K7X4LeHrHCSdIh9gOSL3SOI2DEZbDMg8PZciEONeQwRkVFNiFBC7BpKqLAQiLlPsUV4L Io6LGrE6UUS8tPHfPh9FYcXpMCFJOiMyHY5AWWa= ID Date Data Source [id number] 12/12/2019 10:47:59 AM EST [facility] Name Value Range Interpretation Code Description Data Estella rce(s) Supporting Document(s) Progress Note [facility] TDNCVj3nQkHCJrIs17/DCBnjKYSbg9OtELjnFOu7PPxlJWJlA7EsUTJ8iR7rHEN3WUjJWyGdKvOqXMLg lbm [file] RjDgv5ClB9LbBiLY7ZAe4SPmB5LLQ6dSIlHa9VWpU1GVPIYcRzAM6LBHv= ID Date Data Source [id number] 12/11/2019 08:30:48 PM [facility] Name Value Range Interpretation Code Description Data Estella rce(s) Supporting Document(s) Protein [Mass/volume] in Urine 16 mg/dl [facility] Creatinine [Mass/volume] in Urine 160.0 mg/dL [facility] Protein/Creatinine [Mass Ratio] in Urine 0.10 mg/mg{creat} [facility] ID Date Data Source [id number] 12/12/2019 01:19:28 PM [facility] Service Cmnt XXX-Imp : Microorganism XXX Cult : Field Service Tech Mediated Amplification(TMA) is NEGATIVE for Neisseria gonorrhoeae AND NEGATIVE for Chlamydia trachomatis. Name Value Range Interpretation Code Description Data Estella rce(s) Supporting Document(s) ID Date Data Source [id number] 12/12/2019 08:39:14 AM [facility] Service Cmnt XXX-Imp : Microorganism XXX Cult : DNA probe assay was NEGATIVE for Treasure species, Gardnerella vaginalis, and Trichomonas vaginalis. Name Value Range Interpretation Code Description Data Estella rce(s) Supporting Document(s) ID Date Data Source [id number] 12/11/2019 02:14:36 PM [facility] Name Value Range Interpretation Code Description Data Estella rce(s) Supporting Document(s) Color of Urine [facility] Clarity of Urine [facility] Glucose [Mass/volume] in Urine by Test strip Negative [facility] Bilirubin.total [Presence] in Urine by Test strip Negative [facility] Ketones [Mass/volume] in Urine by Test strip Negative [facility] Specific gravity of Urine by Test strip 1.015 1.005-1.025 [facility] Hemoglobin [Presence] in Urine by Test strip Negative [facility] pH of Urine by Test strip 5.0-8.0 [facility] Protein [Mass/volume] in Urine by Test strip Negative A [facility] Urobilinogen [Units/volume] in Urine by Test strip 0.2 {Ehrlich_U}/ dL 0.2-1.0 [facility] Nitrite [Presence] in Urine by Test strip Negative [facility] Leukocyte esterase [Presence] in Urine by Test strip Negat socrates [facility] ID Date Data Source [id number] 12/11/2019 11:49:16 AM [facility] OB TRANSVAGINAL [id number] RESULTInte rpreted by:Anamaria Cotter MD PhDHISTORY: Dating [...] weeks 3 days based on crown-rump length. RAQEUL 07/05/2020.This document has been electronically signed by Anamaria Cotter MD PhD on 12/11/2019 11:47 AM Name Value Range Interpretation Code Description Data Estella rce(s) Supporting Document(s) ID Date Data Source [id number] 12/02/2019 02:27:00 AM [facility] PT WILL RETURN WITH SPECIMEN Name Value Range Interpretation Code Description Data Estella rce(s) Supporting Document(s) [facility]AL[facility] Urine Creatinine result Normal (applies t o non-numeric results) [facility] Interpret with care as there is no estab lished reference range associated with this assay's methodology that pertains to this particular sex and/or age. [facility]AL[facility] Microalbumin,Ur result <1.7 Normal (applies to non-numeric results) [facility] UMALB Alb/Cre Ratio,Ur result Normal (applies t o non-numeric results) [facility] Test Performed By: [facility] [address] [place] [address] Director: Benito Skaggs MD Reference Ranges for Microalbumin,spot: Normal <30 ug/mg creatinine Microalbuminuria 30-300 ug/mg creatinine Clinical Albuminuria >300 ug/mg creatinine ID Date Data Source [id number] 12/01/2019 10:59:00 PM EST [facility] PT WILL RETURN WITH SPECIMEN Name Value Range Interpretation Code Description Data Estella rce(s) Supporting Document(s) Creatinine,Urine Normal (applies to non-numeric results) [facility] Interpret with care as there is no estab lished reference range associated with this assay's methodology that pertains to this particular sex and/or age. Microalbumin,Urine <1.7 Normal (applies to non-numer ic results) [facility] Albumin/Creatinine Ratio,Urine Normal (applies to non-numeric results) [facility] Test Performed By: [facility] [address] [place] [address] Director: Benito Skaggs MD Reference Ranges for Microalbumin,spot: Normal <30 ug/mg creatinine Microalbuminuria 30-300 ug/mg creatinine Clinical Albuminuria >300 ug/mg creatinine ID Date Data Source [id number] 12/01/2019 07:18:00 PM [facility] Value Range Interpretation Code Description Data Estella rce(s) Supporting Document(s) Parathyroid Hormone Intact res 18.4-80.1 Way [facility] Test Performed By: [facility] [address] [place] [address] Director: Benito Skaggs MD ID Date Data Source [id number] 12/01/2019 07:14:00 PM [facility] Value Range Interpretation Code Description Data Estella rce(s) Supporting Document(s) Parathyroid Hormone PTH Intact 18.4-80.1 Above high tigist l [facility] Test Performed By: [facility] [address] [place] [address] Director: Benito Skaggs MD ID Date Data Source [id number] 12/01/2019 03:14:00 PM [facility] Value Range Interpretation Code Description Data Estella rce(s) Supporting Document(s) Vitamin D, Total 30.0-100.0 Normal (applies to non-numeric results) [facility] ID Date Data Source [id number] 11/15/2019 11:50:00 AM [facility] Value Range Interpretation Code Description Data [facility] rce(s) Supporting Document(s) Beta HCG,Quantitative 7420 mIU/mL Normal (applies to non-n umeric results) [facility] Non-preganant:0-5 mIU/mL 0. 2- Week: 5-50 mIU/mL 1-2 Weeks: 50-500 mIU/mL 2-3 Weeks: 100-5,000 mIU/mL 3-4 Weeks: 500-10,000 mIU/mL 4-5 Weeks: 1,000-50,000 mIU/mL 5-6 Weeks: 10,000-100,000 mIU/mL 6-8 Weeks: 15,000-200,000 mIU/mL 2-3 Months: 10,000-100,000 mIU/mL ID Date Data Source [id number] 10/29/2019 09:22:00 PM EST [facility] Name Value Range Interpretation Code Description Data Estella rce(s) Supporting Document(s) CRP,Wide Range result <3.00 [facility] Test Performed By: [facility] [address] [place] [address] Director: Benito Skaggs MD ID Date Data Source [id number] 10/29/2019 07:18:00 PM [facility] Name Value Range Interpretation Code Description Data Estella rce(s) Supporting Document(s) C-Reactive Protein,Wide Range <3.00 Above high normal [facility] Test Performed By: [facility] [address] [place] [address] Director: Benito Skaggs MD ID Date Data Source [id number] 10/29/2019 02:02:00 PM [facility] Name Value Range Interpretation Code Description Data Estella rce(s) Supporting Document(s) White Blood Count 3.5-10.5 Above high normal [facility] Red Blood Count 3.90-5.00 Normal (applies to non-numeric results) [facility] Hemoglobin 12.0-15.5 Below low normal [facility] ospital Hematocrit 34.9-44.5 Normal (applies to non-numeric resul ts) [facility] Mean Corpuscular Volume 81.2-95.1 Below low normal [facility] Mean Corpuscular Hgb 25.6-32.2 Below low normal [facility] Mean Corpuscular Hgb Conc 32.0-36.0 Normal (applies to no n-numeric results) [facility] Red Cell Distribution Width 11.9-15.5 Normal (appli es to non-numeric results) [facility] Platelet Count 335 x10 3/uL 150-450 Normal (applies to non-numeric results) [facility] Mean Platelet Volume 9.4-12.4 Normal (applies to non-num carolann results) [facility] Neutrophils% (Auto) 31.0-71.0 Normal (applies to non-nume margie results) [facility] Lymphocytes% (Auto) 20.0-55.0 Normal (applies to non-nume margie results) [facility] Monocytes% (Auto) 4.0-12.0 Normal (applies to non-numeri c results) [facility] Eosinophils% (Auto) 1.0-8.0 Normal (applies to non-nume margie results) [facility] Basophils% (Auto) 0.0-2.0 Normal (applies to non-numeri c results) [facility] Immature Granulocytes% (Auto) 0.0-2.0 Normal (cecily lies to non-numeric results) [facility] Neutrophils# (Auto) 1.50-6.20 Above high normal [facility] Lymphocytes# (Auto) 1.20-4.00 Normal (applies to non-nume margie results) [facility] Monocytes# (Auto) 0.00-0.90 Normal (applies to non-numeri c results) [facility] Eosinophils# (Auto) 0.00-0.50 Normal (applies to non-nume margie results) [facility] Basophils# (Auto) 0.00-0.20 Normal (applies to non-numeri c results) [facility] Immature Granulocytes# (Auto) 0.00-7.00 No rmal (applies to non-numeric results) [facility] ID Date Data Source [id number] 10/29/2019 02:02:00 PM [facility] Name Value Range Interpretation Code Description Data Estella rce(s) Supporting Document(s) Erythrocyte Sedimentation rate 42 mm/hr 0-20 Above high tigist l [facility] ID Date Data Source [id number] 10/01/2019 06:16:00 PM [facility] Name Value Range Interpretation Code Description Data Estella rce(s) Supporting Document(s) C-Reactive Protein,Wide Range <3.00 Above high normal [facility] Test Performed By: [facility] [address] [place] [address] Director: Benito Skaggs MD ID Date Data Source [id number] 10/01/2019 06:29:00 PM [facility] Name Value Range Interpretation Code Description Data Estella rce(s) Supporting Document(s) CRP,Wide Range result <3.00 Way [facility] Test Performed By: [facility] [address] [place] [address] Director: Benito Skaggs MD ID Date Data Source [id number] 10/01/2019 01:16:00 PM [facility] Name Value Range Interpretation Code Description Data Estella rce(s) Supporting Document(s) White Blood Count 3.5-10.5 Above high normal [facility] Red Blood Count 3.90-5.00 Normal (applies to non-numeric results) [facility] Hemoglobin 12.0-15.5 Below low normal [facility] Hematocrit 34.9-44.5 Normal (applies to non-numeric resul ts) [facility] Mean Corpuscular Volume 81.2-95.1 Below low normal [facility] Mean Corpuscular Hgb 25.6-32.2 Below low normal [facility] Mean Corpuscular Hgb Conc 32.0-36.0 Below low normal [facility] Red Cell Distribution Width 11.9-15.5 Normal (appli es to non-numeric results) [facility] Platelet Count 332 x10 3/uL 150-450 Normal (applies to non-numeric results) [facility] Mean Platelet Volume 9.4-12.4 Normal (applies to non-num carolann results) [facility] Neutrophils% (Auto) 31.0-71.0 Normal (applies to non-nume margie results) [facility] Lymphocytes% (Auto) 20.0-55.0 Normal (applies to non-nume margie results) [facility] Monocytes% (Auto) 4.0-12.0 Normal (applies to non-numeri c results) [facility] Eosinophils% (Auto) 1.0-8.0 Normal (applies to non-nume margie results) [facility] Basophils% (Auto) 0.0-2.0 Normal (applies to non-numeri c results) [facility] Immature Granulocytes% (Auto) 0.0-2.0 Normal (cecily lies to non-numeric results) [facility] Neutrophils# (Auto) 1.50-6.20 Above high normal [facility] Lymphocytes# (Auto) 1.20-4.00 Normal (applies to non-nume margie results) [facility] Monocytes# (Auto) 0.00-0.90 Normal (applies to non-numeri c results) [facility] Eosinophils# (Auto) 0.00-0.50 Normal (applies to non-nume margie results) [facility] Basophils# (Auto) 0.00-0.20 Normal (applies to non-numeri c results) [facility] Immature Granulocytes# (Auto) 0.00-7.00 No rmal (applies to non-numeric results) [facility] ID Date Data Source [id number] 10/01/2019 01:16:00 PM EST [facility] Name Value Range Interpretation Code Description Data Estella rce(s) Supporting Document(s) Erythrocyte Sedimentation rate 52 mm/hr 0-20 Above high tigist l [facility] Procedure Social History Code Duration Value Status Description Data Source(s ) Smoking 11/22/2020 12:00:00 AM EST Former Smoker completed Former Smoker eCW1 ([facility]) Smoking 11/22/2020 12:00:00 AM EST Former Smoker completed Former Smoker eCW1 ([facility]) Smoking 11/22/2020 12:00:00 AM EST Former Smoker completed Former Smoker eCW1 ([facility]) Smoking 11/19/2020 12:00:00 AM EST Former Smoker completed Former Smoker eCW1 ([facility]) Smoking 11/19/2020 12:00:00 AM EST Former Smoker completed Former Smoker eCW1 ([facility]) Alcohol intake 10/04/2020 12:00:00 AM EST Current non-d concepcion of alcohol (finding) completed Current non-drinker of alcohol (finding) [facility] Smoking 09/15/2020 12:00:00 AM EST Former Smoker completed Former Smoker eCW1 ([facility]) Smoking 09/15/2020 12:00:00 AM EST Former Smoker completed Former Smoker eCW1 ([facility]) Smoking 09/15/2020 12:00:00 AM EST Former Smoker completed Former Smoker eCW1 ([facility]) Smoking 09/15/2020 12:00:00 AM EST Former Smoker completed Former Smoker eCW1 ([facility]) Alcohol intake 09/13/2020 12:00:00 AM EST Current non-d concepcion of alcohol (finding) completed Current non-drinker of alcohol (finding) [facility] Alcohol intake 09/07/2020 12:00:00 AM EDT Current non-d concepcion of alcohol (finding) completed Current non-drinker of alcohol (finding) [facility] Smoking 09/06/2020 12:00:00 AM EDT Non-smoker, Non-drink er, Non-drug User completed Non-smoker, Non-drinker, Non-drug User [facility] ([facility]) Alcohol intake 08/31/2020 12:00:00 AM EDT Current non-d concepcion of alcohol (finding) completed Current non-drinker of alcohol (finding) [facility] Tobacco use and exposure 08/31/2020 12:00:00 AM EDT Never used co mpleted Never used [facility] Smoking 08/31/2020 12:00:00 AM EDT Former smoker completed Former smoker [facility] Alcohol intake 08/17/2020 12:00:00 AM EDT Current non-d concepcion of alcohol (finding) completed Current non-drinker of alcohol (finding) [facility] Smoking 06/17/2020 11:56:00 AM EDT Former Smoker completed Former Smoker [facility] Smoking 06/12/2020 05:55:00 PM EDT Denies Ever Smoked complete d Denies Ever Smoked [facility] Smoking 05/28/2020 03:14:00 PM EDT Former Smoker completed Former Smoker [facility] Smoking 05/25/2020 08:45:00 PM EDT Denies Ever Smoked complete d Denies Ever Smoked [facility] Smoking 05/14/2020 08:05:00 PM EDT Denies Ever Smoked complete d Denies Ever Smoked [facility] Smoking 04/02/2020 03:54:00 PM EDT Denies Ever Smoked complete d Denies Ever Smoked [facility] Alcohol intake 12/31/2019 12:00:00 AM EST Current non-d concepcion of alcohol (finding) completed Current non-drinker of alcohol (finding) [facility] Smoking 12/31/2019 12:00:00 AM EST Former smoker completed Former smoker [facility] Alcohol intake 12/25/2019 12:00:00 AM EST Current non-d concepcion of alcohol (finding) completed Current non-drinker of alcohol (finding) [facility] Smoking 12/25/2019 12:00:00 AM EST Former smoker completed Former smoker [facility] Alcohol intake 12/11/2019 12:00:00 AM EST Current non-d concepcion of alcohol (finding) completed Current non-drinker of alcohol (finding) [facility] Smoking 12/11/2019 12:00:00 AM EST Former smoker completed Former smoker [facility] 10/13/2019 12:00:00 AM EST completed [facility] Vital Signs ID Date Data Source UNK Name Value Range Interpretation Code Description Data Source(s) Diastolic blood pressure mm[Hg] eCW1 ([facility]) Systolic blood pressure 136 mm[Hg] 136 mm[Hg] e CW1 ([facility]) Body temperature 98.4 [degF] 98.4 [degF] eCW1 ( [facility]) Respiratory rate 18 /min 18 /min eCW1 ([facility]) Heart rate 89 /min 89 /min W1 (Counts include 234 beds at the [facility]) Body mass index (BMI) [Ratio] 46.44 kg/m2 46.44 kg/m2 W1 ([facility]) Body height 64 [in_i] 64 [in_i] eCW1 ([facility]) Body weight 270.6 [lb_av] 270.6 [lb_av] eCW1 ([facility]) Diastolic blood pressure 81 mm[Hg] 81 mm[Hg] JOHN ([facility]) Body weight 4435.2 [oz_av] 4435.2 [oz_av] ATHEN A ([facility]) Systolic blood pressure 119 mm[Hg] 119 mm[Hg] A THENA ([facility]) Body mass index (BMI) [Ratio] 47.6 kg/m2 47.6 k g/m2 JOHN ([facility]) Body height 64 [in_i] 64 [in_i] JOHN ([facility]) Body weight 4240 [oz_av] 4240 [oz_av] JOHN ([facility]) Systolic blood pressure 115 mm[Hg] 115 mm[Hg] A THENA ([facility]) Body mass index (BMI) [Ratio] 45.5 kg/m2 45.5 k g/m2 JOHN ([facility]) Body height 64 [in_i] 64 [in_i] JOHN ([facility]) Diastolic blood pressure 84 mm[Hg] 84 mm[Hg] JOHN ([facility]) Body weight 4240 [oz_av] 4240 [oz_av] JOHN ([facility]) Systolic blood pressure 115 mm[Hg] 115 mm[Hg] A THENA ([facility]) Body mass index (BMI) [Ratio] 45.5 kg/m2 45.5 k g/m2 JOHN ([facility]) Body height 64 [in_i] 64 [in_i] JOHN ([facility]) Diastolic blood pressure 84 mm[Hg] 84 mm[Hg] JOHN ([facility]) Body weight 4240 [oz_av] 4240 [oz_av] JOHN ([facility]) Systolic blood pressure 115 mm[Hg] 115 mm[Hg] A THENA ([facility]) Body mass index (BMI) [Ratio] 45.5 kg/m2 45.5 k g/m2 JOHN ([facility]) Body height 64 [in_i] 64 [in_i] JOHN ([facility]) Diastolic blood pressure 84 mm[Hg] 84 mm[Hg] JOHN ([facility]) Diastolic blood pressure 73 mm[Hg] 73 mm[Hg] eCW1 ([facility]) Systolic blood pressure 123 mm[Hg] 123 mm[Hg] e CW1 ([facility]) Body temperature 97.5 [degF] 97.5 [degF] eCW1 ( [facility]) Respiratory rate 18 /min 18 /min eCW1 ([facility]) Heart rate 98 /min 98 /min eCW1 (Counts include 234 beds at the [facility]) Body mass index (BMI) [Ratio] 47.58 kg/m2 47.58 kg/m2 eCW1 ([facility]) Body height 64 [in_i] 64 [in_i] eCW1 ([facility]) Body weight 277.2 [lb_av] 277.2 [lb_av] eCW1 ([facility]) Systolic blood pressure 143 mm[Hg] 143 mm[Hg] A THENA ([facility]) Systolic blood pressure 146 mm[Hg] 146 mm[Hg] A [facility] ([facility]) Body height 64 [in_i] 64 [in_i] JOHN ([facility]) Diastolic blood pressure 99 mm[Hg] 99 mm[Hg] JOHN ([facility]) Diastolic blood pressure 97 mm[Hg] 97 mm[Hg] JOHN ([facility]) Systolic blood pressure 143 mm[Hg] 143 mm[Hg] A [facility]) Systolic blood pressure 146 mm[Hg] 146 mm[Hg] A [facility] ([facility]) Body height 64 [in_i] 64 [in_i] JOHN ([facility]) Diastolic blood pressure 99 mm[Hg] 99 mm[Hg] JOHN ([facility]) Diastolic blood pressure 97 mm[Hg] 97 mm[Hg] JOHN ([facility]) Systolic blood pressure 143 mm[Hg] 143 mm[Hg] A THENA ([facility]) Systolic blood pressure 146 mm[Hg] 146 mm[Hg] A [facility] ([facility]) Body height 64 [in_i] 64 [in_i] JOHN ([facility]) Diastolic blood pressure 99 mm[Hg] 99 mm[Hg] JOHN ([facility]) Diastolic blood pressure 97 mm[Hg] 97 mm[Hg] JOHN ([facility]) Systolic blood pressure 143 mm[Hg] 143 mm[Hg] A THENA ([facility]) Systolic blood pressure 146 mm[Hg] 146 mm[Hg] A [facility] ([facility]) Body height 64 [in_i] 64 [in_i] JOHN ([facility]) Diastolic blood pressure 99 mm[Hg] 99 mm[Hg] JOHN ([facility]) Diastolic blood pressure 97 mm[Hg] 97 mm[Hg] JOHN ([facility]) Diastolic blood pressure 98 mm[Hg] 98 mm[Hg] [facility] ([facility]) Systolic blood pressure 152 mm[Hg] 152 mm[Hg] M EDENT ([facility]) Body mass index (BMI) [Ratio] 43.6 kg/m2 43.6 k g/m2 MEDENT ([facility]) Body weight 270.00 [lb_av] 270.00 [lb_av] MEDEN T ([facility]) Body height 66 [in_i] 66 [in_i] MEDENT ([facility]) 5'6" Body temperature 97.5 [degF] 97.5 [degF] MEDENT ([facility]) Body surface area Derived from formula 3.33 m2 3.33 m2 [facility] ([facility] [employer] [facility]) Body mass index (BMI) [Ratio] 0.7 kg/m2 0.7 kg /m2 [facility] ([facility]) Body weight 65.00 [lb_av] 65.00 [lb_av] [facility] ([facility]) Body height 258 [in_i] 258 [in_i] MEDENT ([facility]) 21'6" Diastolic blood pressure 90 mm[Hg] 90 mm[Hg] MEDENT ([facility]) Systolic blood pressure 146 mm[Hg] 146 mm[Hg] M EDENT ([facility]) Body weight 4336 [oz_av] 4336 [oz_av] JOHN ([facility]) Systolic blood pressure 126 mm[Hg] 126 mm[Hg] A THENA ([facility]) Body height 64 [in_i] 64 [in_i] JOHN ([facility]) Diastolic blood pressure 87 mm[Hg] 87 mm[Hg] JOHN ([facility]) Body weight 4336 [oz_av] 4336 [oz_av] JOHN ([facility]) Systolic blood pressure 126 mm[Hg] 126 mm[Hg] A [facility] ([facility]) Body height 64 [in_i] 64 [in_i] JOHN ([facility]) Diastolic blood pressure 87 mm[Hg] 87 mm[Hg] JOHN ([facility]) Body weight 4336 [oz_av] 4336 [oz_av] JOHN ([facility]) Systolic blood pressure 126 mm[Hg] 126 mm[Hg] A [facility]) Body height 64 [in_i] 64 [in_i] JOHN ([facility]) Diastolic blood pressure 87 mm[Hg] 87 mm[Hg] JOHN ([facility]) Body weight 4336 [oz_av] 4336 [oz_av] JOHN ([facility]) Systolic blood pressure 126 mm[Hg] 126 mm[Hg] A [facility] ([facility]) Body height 64 [in_i] 64 [in_i] JOHN ([facility]) Diastolic blood pressure 87 mm[Hg] 87 mm[Hg] JOHN ([facility]) Body mass index (BMI) [Ratio] 46.3 kg/m2 No rmal (applies to non-numeric results) 46.3 kg/m2 [facility] Diastolic blood pressure 90 mm[Hg] Normal (applies to non-numeric results) 90 mm[Hg] [facility] Systolic blood pressure 158 mm[Hg] Normal (applies t o non-numeric results) 158 mm[Hg] [facility] Body weight Measured 270 [lb_av] Normal (applies to n on-numeric results) 270 [lb_av] [facility] Body temperature 37.0 zari Normal (applies to non-numeric results) 37.0 zari [facility] Respiratory rate 16 min Normal (applies to non-numeric results) 16 min [facility] Deprecated Oxygen saturation in Capillary blood by Oximetry 97 % Normal (applies to non-numeric results) 97 % [facility] Body height 162.1536 cm Normal (applies to non-numeric res ults) 162.1536 cm [facility] Heart rate 104 min Normal (applies to non-numeric resul ts) 104 min [facility] Respiratory rate 16 min Normal (applies to non-numeric results) 16 min [facility] Deprecated Oxygen saturation in Capillary blood by Oximetry 99 % Normal (applies to non-numeric results) 99 % [facility] Heart rate 91 min Normal (applies to non-numeric resul ts) 91 min [facility] Diastolic blood pressure 92 mm[Hg] Normal (applies to non-numeric results) 92 mm[Hg] [facility] Systolic blood pressure 138 mm[Hg] Normal (applies t o non-numeric results) 138 mm[Hg] [facility] Body weight Measured 222 [lb_av] Normal (applies to n on-numeric results) 222 [lb_av] [facility] Body temperature 37.0 zari Normal (applies to non-numeric results) 37.0 zari [facility] Body height 162.1536 cm Normal (applies to non-numeric res ults) 162.1536 cm [facility] Body mass index (BMI) [Ratio] 38.1 kg/m2 No rmal (applies to non-numeric results) 38.1 kg/m2 [facility] Body temperature 36.7 zari Normal (applies to non-numeric results) 36.7 zari [facility] Respiratory rate 20 min Normal (applies to non-numeric results) 20 min [facility] Heart rate 76 min Normal (applies to non-numeric resul ts) 76 min [facility] Diastolic blood pressure 81 mm[Hg] Normal (applies to non-numeric results) 81 mm[Hg] [facility] Systolic blood pressure 123 mm[Hg] Normal (applies t o non-numeric results) 123 mm[Hg] [facility] Body weight Measured 122.47 kg Normal (applies to n on-numeric results) 122.47 kg [facility] Deprecated Oxygen saturation in Capillary blood by Oximetry 97 % Normal (applies to non-numeric results) 97 % [facility] Body height 162.1536 cm Normal (applies to non-numeric res ults) 162.1536 cm [facility] Body mass index (BMI) [Ratio] 46.34 kg/m2 No rmal (applies to non-numeric results) 46.34 kg/m2 [facility] Body mass index (BMI) [Ratio] 46.0 kg/m2 No rmal (applies to non-numeric results) 46.0 kg/m2 [facility] Diastolic blood pressure 90 mm[Hg] Normal (applies to non-numeric results) 90 mm[Hg] [facility] Systolic blood pressure 152 mm[Hg] Normal (applies t o non-numeric results) 152 mm[Hg] [facility] Body temperature 36.8 zari Normal (applies to non-numeric results) 36.8 zari [facility] Heart rate 85 min Normal (applies to non-numeric resul ts) 85 min [facility] Body weight Measured 268 [lb_av] Normal (applies to n on-numeric results) 268 [lb_av] [facility] Respiratory rate 18 min Normal (applies to non-numeric results) 18 min [facility] Deprecated Oxygen saturation in Capillary blood by Oximetry 98 % Normal (applies to non-numeric results) 98 % [facility] Body height 162.1536 cm Normal (applies to non-numeric res ults) 162.1536 cm [facility] Body temperature 36.9 zari Normal (applies to non-numeric results) 36.9 zari [facility] Respiratory rate 18 min Normal (applies to non-numeric results) 18 min [facility] Heart rate 80 min Normal (applies to non-numeric resul ts) 80 min [facility] Diastolic blood pressure 68 mm[Hg] Normal (applies to non-numeric results) 68 mm[Hg] [facility] Systolic blood pressure 130 mm[Hg] Normal (applies t o non-numeric results) 130 mm[Hg] [facility] Deprecated Oxygen saturation in Capillary blood by Oximetry 96 % Normal (applies to non-numeric results) 96 % [facility] Body weight Measured 129.727 kg Normal (applies to n on-numeric results) 129.727 kg [facility] Body height 162.1536 cm Normal (applies to non-numeric res ults) 162.1536 cm [facility] Body mass index (BMI) [Ratio] 49.09 kg/m2 No rmal (applies to non-numeric results) 49.09 kg/m2 [facility] Body temperature 36.6 zari Normal (applies to non-numeric results) 36.6 zari [facility] Respiratory rate 18 min Normal (applies to non-numeric results) 18 min [facility] Body weight Measured 122.47 kg Normal (applies to n on-numeric results) 122.47 kg [facility] Body height 162.1536 cm Normal (applies to non-numeric res ults) 162.1536 cm [facility] Body mass index (BMI) [Ratio] 46.34 kg/m2 No rmal (applies to non-numeric results) 46.34 kg/m2 [facility] Body temperature 37.0 zari Normal (applies to non-numeric results) 37.0 zari [facility] Respiratory rate 20 min Normal (applies to non-numeric results) 20 min [facility] Body weight Measured 273 [lb_av] Normal (applies to n on-numeric results) 273 [lb_av] [facility] Deprecated Oxygen saturation in Capillary blood by Oximetry 96 % Normal (applies to non-numeric results) 96 % [facility] Heart rate 110 min Normal (applies to non-numeric resul ts) 110 min [facility] Inhaled oxygen concentration 21 % Normal (appl ies to non-numeric results) 21 % [facility] Body height 162.1536 cm Normal (applies to non-numeric res ults) 162.1536 cm [facility] Body mass index (BMI) [Ratio] 46.52 kg/m2 No rmal (applies to non-numeric results) 46.52 kg/m2 [facility] Diastolic blood pressure 66 mm[Hg] Normal (applies to non-numeric results) 66 mm[Hg] [facility] Systolic blood pressure 136 mm[Hg] Normal (applies t o non-numeric results) 136 mm[Hg] [facility] Body mass index (BMI) [Ratio] 45.7 [...] (Luiz Leblanc MD) ID Date Data Source [id number] 10/25/2020 07:54:58 AM EST [facility] Name Value Range Interpretation Code Description Data Source(s) PREFERRED NAME Kendra Gardner [facility] PREFERRED NAME Kendraeleni Gardner [facility] ID Date Data Source [id number] 10/04/2020 11:52:46 AM [facility] Name Value Range Interpretation Code Description Data Source(s) WEIGHT RECORDED 266 lb 266 lb [facility] PREFERRED NAME Kendra Gardner [facility] Hospital ID Date Data Source [id number] 09/23/2020 08:15:32 AM EST [facility] Name Value Range Interpretation Code Description Data Source(s) TRANSFER FROM [facility] ID Date Data Source [id number] 09/07/2020 11:16:42 AM EDT [facility] Name Value Range Interpretation Code Description Data Source(s) WEIGHT RECORDED 279 lb 279 lb [facility] ID Date Data Source [id number] 10/12/2020 12:09:27 PM EST [facility] Hospital Name Value Range Interpretation Code Description Data Source(s) WEIGHT RECORDED 276 lb 276 lb [facility] ID Date Data Source [id number] 11/22/2020 01:47:44 PM EST [facility] Name Value Range Interpretation Code Description Data Source(s) WEIGHT RECORDED 269.8 lb 269.8 lb [facility] PREFERRED NAME Kendra Gardner [facility] [facility] ID Date Data Source [id number] 06/17/2020 04:03:40 PM EDT [facility] Name Value Range Interpretation Code Description Data Source(s) WEIGHT RECORDED 278.8 lb 278.8 lb [facility] ID Date Data Source [id number] 06/01/2020 08:01:52 AM EDT [facility] Name Value Range Interpretation Code Description Data Source(s) WEIGHT RECORDED 278 lb 278 lb [facility] ID Date Data Source [id number] 05/14/2020 01:50:51 PM EDT [facility] Name Value Range Interpretation Code Description Data Source(s) WEIGHT RECORDED 284 lb 284 lb [facility] ID Date Data Source [id number] 05/13/2020 12:11:41 PM EDT [facility] Name Value Range Interpretation Code Description Data Source(s) WEIGHT RECORDED 285.4 lb 285.4 lb [facility] ID Date Data Source [id number] 04/19/2020 11:34:20 AM EDT [facility] Name Value Range Interpretation Code Description Data Source(s) WEIGHT RECORDED 277.8 lb 277.8 lb [facility] ID Date Data Source [id number] 04/06/2020 08:36:55 AM EDT [facility] Name Value Range Interpretation Code Description Data Source(s) WEIGHT RECORDED 279 lb 279 lb [facility] ID Date Data Source [id number] 03/20/2020 08:30:37 AM EDT [facility] Name Value Range Interpretation Code Description Data Source(s) WEIGHT RECORDED 278.6 lb 278.6 lb [facility] ID Date Data Source [id number] 02/26/2020 09:49:30 AM EDT [facility] Name Value Range Interpretation Code Description Data Source(s) WEIGHT RECORDED 270 lb 270 lb [facility] ID Date Data Source [id number] 02/14/2020 03:05:37 AM EDT [facility] Name Value Range Interpretation Code Description Data Source(s) WEIGHT RECORDED 267 lb 267 lb [facility] ID Date Data Source [id number] 02/06/2020 02:27:00 PM EDT [facility] Name Value Range Interpretation Code Description Data Source(s) Weight Measurement Method 8 8 [facility] Weight 4336 4336 [facility] pital Temperature Source 7 7 [facility] Temperature 98.4 98.4 [facility] Respiratory Effort 1 1 [facility] Respiratory Rate 28 28 [facility] Pulse Assessment Method 4 4 G [facility] Pulse Rate 96 96 [facility] pital Height 64 64 [facility] pital Blood Pressure 114/80 114/80 [facility] Weight Measurement Method 8 8 [facility] Weight 4336 4336 [facility] pital Temperature Source 7 7 [facility] Temperature 98.4 98.4 [facility] Respiratory Effort 1 1 [facility] Respiratory Rate 28 28 [facility] Pulse Assessment Method 4 4 G [facility] Pulse Rate 96 96 [facility] pital Height 64 64 [facility] pital Blood Pressure 114/80 114/80 [facility] Weight Measurement Method 8 8 [facility] Weight 4336 4336 [facility] pital Temperature Source 7 7 [facility] Temperature 98.4 98.4 [facility] Respiratory Effort 1 1 [facility] Respiratory Rate 32 32 [facility] Pulse Assessment Method 4 4 G [facility] Pulse Rate 123 123 [facility] pital Height 64 64 [facility] pital Blood Pressure 130/94 130/94 [facility] ID Date Data Source [id number] 01/29/2020 12:06:48 PM EDT [facility] Name Value Range Interpretation Code Description Data Source(s) WEIGHT RECORDED 271 lb 271 lb [facility] ID Date Data Source [id number] 01/12/2020 02:07:00 AM EST [facility] Name Value Range Interpretation Code Description Data Source(s) Weight Measurement Method 8 8 [facility] Weight 4320 4320 [facility] pital Temperature Source 7 7 [facility] Temperature 98.2 98.2 [facility] Respiratory Effort 3 3 [facility] Respiratory Rate 20 20 [facility] Pulse Assessment Method 4 4 [facility] Pulse Rate 97 97 [facility] pital Height 64 64 [facility] pital Blood Pressure 140/88 140/88 [facility] Weight Measurement Method 8 8 [facility] Weight 4320 4320 [facility] pital Temperature Source 7 7 [facility] Temperature 97.9 97.9 [facility] Respiratory Effort 1 1 [facility] Respiratory Rate 22 22 [facility] Pulse Assessment Method 4 4 G [facility] Pulse Rate 101 101 [facility] pital Height 64 64 [facility] pital Blood Pressure 147/108 147/108 [facility] ID Date Data Source [id number] 01/20/2020 04:36:19 PM EDT [facility] Name Value Range Interpretation Code Description Data Source(s) WEIGHT RECORDED 275.4 lb 275.4 lb [facility] ID Date Data Source [id number] 12/31/2019 10:46:53 AM [facility] Name Value Range Interpretation Code Description Data Source(s) WEIGHT RECORDED 268.8 lb 268.8 lb [facility] Body height Measured 64 in 64 in [facility] ID Date Data Source [id number] 12/30/2019 11:25:50 AM [facility] Name Value Range Interpretation Code Description Data Source(s) WEIGHT RECORDED 271.6 lb 271.6 lb [facility] ID Date Data Source [id number] 12/17/2019 10:15:27 AM [facility] Name Value Range Interpretation Code Description Data Source(s) WEIGHT RECORDED 272 lb 272 lb [facility] ID Date Data Source [id number] 10/01/2019 01:02:00 PM EST [facility] Name Value Range Interpretation Code Description Data Source(s) Weight Measurement Method 8 8 [facility] Weight 4160 4160 [facility] pital Temperature Source 7 7 [facility] Temperature 98.3 98.3 [facility] Respiratory Effort 1 1 [facility] Respiratory Rate 16 16 [facility] Pulse Assessment Method 4 4 [facility] Pulse Rate 100 100 [facility] pital Height 64 64 [facility] pital Blood Pressure 145/100 145/100 [facility] Weight Measurement Method 8 8 [facility] Weight 4160 4160 [facility] pital Temperature Source 7 7 [facility] Temperature 98.3 98.3 [facility] Respiratory Effort 1 1 [facility] Respiratory Rate 16 16 [facility] Pulse Assessment Method 4 4 G [facility] Pulse Rate 100 100 [facility]ital Height 64 64 [facility] 145/100 145/100 [facility] Patient Treatment Plan of Care Planned Activity Planned Date Details Description Data Source (s) pregabalin 75 MG Oral Capsule 08/30/2020 12:00:00 AM [facility] 24 HR Nifedipine 30 MG Extended Release Oral Tablet 08/11/20 12:00:00 AM [facility] Levetiracetam 750 MG Oral Tablet 07/10/2020 12:00:00 AM [facility] Acetaminophen 325 MG / butalbital 50 MG / Caffeine 40 MG Oral Tablet 06/14/2020 12:00:00 AM [facility]ital Esomeprazole 20 MG Delayed Release Oral Capsule 06/08/2020 12:00:00 AM [facility] Docusate Sodium 100 MG Oral Capsule [DOK] 06/03/2020 12:00:00 AM [facility] EPINEPHrine 0.3 MG/0.3ML Injection Solution Auto-injec tor (EPIPEN) 05/26/2020 12:00:00 AM [facility] ospital Cholecalciferol 1000 UNT Oral Tablet 05/25/2020 12:00:00 AM [facility] 27-0.8 MG Oral Tablet 05/25/2020 12:00:00 AM [facility] Tuberculin-Allergy Syringes 28G X 1/2" 1 ML 05/24/2020 12:00:00 AM [facility] cetirizine hydrochloride 10 MG Oral Tablet 04/24/2020 12:00:00 AM [facility] Levetiracetam 1000 MG Oral Tablet 02/04/2020 12:00:00 AM [facility] multivitamin tablet 12/11/2019 12:00:00 AM [facility] Aspirin 81 MG Delayed Release Oral Tablet 12/11/2019 12:00:00 AM [facility] Ergocalciferol 03686 UNT Oral Capsule 12/05/2019 12:00:00 AM [facility] Albuterol Sulfate HFA 108 (90 Base) MCG/ ACT Inhalation Aerosol Solution (PROVENTIL HFA;VENTOLIN HFA) 11/27/2019 12:00:00 AM [facility] Naproxen 500 MG Oral Tablet 06/27/2019 12:00:00 AM [facility] rivaroxaban 20 MG Oral Tablet [Xarelto] JOHN ([facility]) rivaroxaban 15 MG Oral Tablet [Xarelto] JOHN ([facility]) Ergocalciferol 49337 UNT Oral Capsule JOHN ([facility]) Ascorbic Acid 500 MG Oral Tablet JOHN ([facility]) tramadol hydrochloride 50 MG Oral Tablet JOHN ([facility]) topiramate 50 MG Oral Tablet [facility] ([facility]) topiramate 25 MG Oral Tablet JOHN ([facility]) quetiapine 100 MG Oral Tablet JOHN ([facility]) Progesterone 200 MG Oral Capsule JOHN ([facility]) Prednisone 50 MG Oral Tablet JOHN ([facility]) Prednisone 20 MG Oral Tablet JOHN ([facility]) Prednisone 10 MG Oral Tablet JOHN ([facility]) Prazosin 1 MG Oral Capsule A THENA ([facility]) Acetaminophen 325 MG / Oxycodone Hydrochloride 5 MG Oral Tablet JOHN ([facility]) Oxycodone Hydrochloride 5 MG Oral Tablet JOHN ([facility]) Oxycodone Hydrochloride 10 MG Oral Tablet JOHN ([facility]) Ondansetron 8 MG Disintegrating Oral Tablet JOHN ([facility]) Nexium 24HR 20 mg tablet,delayed release JOHN ([facility]) Metronidazole 500 MG Oral Tablet JOHN ([facility]) Metoclopramide 10 MG Oral Tablet [facility] ([facility]) Metformin hydrochloride 500 MG Oral Tablet JOHN ([facility]) Magnesium Oxide 400 MG Oral Tablet JOHN ([facility]) Lidocaine 25 MG/ML / Prilocaine 25 MG/ML Topical Cream JOHN ([facility]) Lidocaine 40 MG/ML Topical Cream JOHN ([facility]) Levetiracetam 1000 MG Oral Tablet JOHN ([facility]) Ketoconazole 20 MG/ML Topical Cream JOHN ([facility]) Ibuprofen 800 MG Oral Tablet JOHN ([facility]) Ibuprofen 600 MG Oral Tablet JOHN ([facility]) Hydrochlorothiazide 12.5 MG Oral Tablet JOHN ([facility]) heparin sodium, porcine 5000 UNT/ML Injectable Solution JOHN ([facility]) gabapentin 600 MG Oral Tablet JOHN ([facility]) 0.5 ML Fondaparinux sodium 5 MG/ML Prefilled Syringe JOHN ([facility]) Fluconazole 150 MG Oral Tablet JOHN ([facility]) ferrous sulfate 324 mg (65 mg iron) tablet,delayed release JOHN ([facility]) Esomeprazole 20 MG Delayed Release Oral Capsule JOHN ([facility]) Deblitane 0.35 mg tablet Take 1 tablet every day by oral route f or 84 days. JOHN ([facility]) Clonazepam 0.5 MG Oral Tablet JOHN ([facility]) Cholecalciferol 1000 UNT Oral Tablet JOHN ([facility]) Cephalexin 500 MG Oral Capsule JOHN ([facility]) buspirone hydrochloride 5 MG Oral Tablet JOHN ([facility]) Bacitracin 0.5 UNT/MG Topical Ointment JOHN ([facility]) Aspirin 81 MG Delayed Release Oral Tablet JOHN ([facility]) Amoxicillin 875 MG / Clavulanate 125 MG Oral Tablet JOHN ([facility]) Ajovy Syringe 225 mg/1.5 mL subcutaneous JOHN ([facility]) Acetaminophen 325 MG Oral Tablet JOHN ([facility]) rivaroxaban 20 MG Oral Tablet [Xarelto] JOHN ([facility]) rivaroxaban 15 MG Oral Tablet [Xarelto] JOHN ([facility]) Ergocalciferol 11663 UNT Oral Capsule JOHN ([facility]) Ascorbic Acid 500 MG Oral Tablet JOHN ([facility]) tramadol hydrochloride 50 MG Oral Tablet JOHN ([facility]) topiramate 50 MG Oral Tablet JOHN ([facility]) topiramate 25 MG Oral Tablet JOHN ([facility]) quetiapine 100 MG Oral Tablet JOHN ([facility]) Ibuprofen 800 MG Oral Tablet JOHN ([facility]) heparin sodium, porcine 5000 UNT/ML Injectable Solution JOHN ([facility]) gabapentin 600 MG Oral Tablet JOHN ([facility]) 0.5 ML Fondaparinux sodium 5 MG/ML Prefilled Syringe JOHN ([facility]) Fluconazole 150 MG Oral Tablet JOHN ([facility]) ferrous sulfate 324 mg (65 mg iron) tablet,delayed release JOHN ([facility]) Esomeprazole 20 MG Delayed Release Oral Capsule JOHN ([facility]) Clonazepam 0.5 MG Oral Tablet JOHN ([facility]) Cephalexin 500 MG Oral Capsule JOHN ([facility]) Bacitracin 0.5 UNT/MG Topical Ointment JOHN ([facility]) Aspirin 81 MG Delayed Release Oral Tablet JOHN ([facility]) Amoxicillin 875 MG / Clavulanate 125 MG Oral Tablet JOHN ([facility]) Ajovy Syringe 225 mg/1.5 mL subcutaneous JOHN ([facility]) quetiapine 100 MG Oral Tablet JOHN ([facility]) Progesterone 200 MG Oral Capsule JOHN ([facility]) Prednisone 50 MG Oral Tablet JOHN ([facility]) Prednisone 10 MG Oral Tablet JOHN ([facility]) Prazosin 1 MG Oral Capsule A THENA ([facility]) Acetaminophen 325 MG / Oxycodone Hydrochloride 5 MG Oral Tablet JOHN ([facility]) Oxycodone Hydrochloride 5 MG Oral Tablet JOHN ([facility]) Ondansetron 8 MG Disintegrating Oral Tablet JOHN ([facility]) Nexium 24HR 20 mg tablet,delayed release JOHN ([facility]) Metronidazole 500 MG Oral Tablet JOHN ([facility]) Metoclopramide 10 MG Oral Tablet JOHN ([facility]) Metformin hydrochloride 500 MG Oral Tablet JOHN ([facility]) Magnesium Oxide 400 MG Oral Tablet JOHN ([facility]) Lidocaine 40 MG/ML Topical Cream JOHN ([facility]) Levetiracetam 1000 MG Oral Tablet JOHN ([facility]) Ketoconazole 20 MG/ML Topical Cream JOHN ([facility]) Ibuprofen 800 MG Oral Tablet JOHN ([facility]) heparin sodium, porcine 5000 UNT/ML Injectable Solution JOHN ([facility]) gabapentin 600 MG Oral Tablet JOHN ([facility]) 0.5 ML Fondaparinux sodium 5 MG/ML Prefilled Syringe JOHN ([facility]) Fluconazole 150 MG Oral Tablet JOHN ([facility]) ferrous sulfate 324 mg (65 mg iron) tablet,delayed release JOHN ([facility]) Esomeprazole 20 MG Delayed Release Oral Capsule JOHN ([facility]) Clonazepam 0.5 MG Oral Tablet JOHN ([facility]) Cephalexin 500 MG Oral Capsule JOHN ([facility]) Bacitracin 0.5 UNT/MG Topical Ointment JOHN ([facility]) Aspirin 81 MG Delayed Release Oral Tablet JOHN ([facility]) Amoxicillin 875 MG / Clavulanate 125 MG Oral Tablet JOHN ([facility]) Ajovy Syringe 225 mg/1.5 mL subcutaneous JOHN ([facility]) Progesterone 200 MG Oral Capsule JOHN ([facility]) Prednisone 50 MG Oral Tablet JOHN ([facility]) Prednisone 10 MG Oral Tablet JOHN ([facility]) Prazosin 1 MG Oral Capsule A THENA ([facility]) Acetaminophen 325 MG / Oxycodone Hydrochloride 5 MG Oral Tablet JOHN ([facility]) Oxycodone Hydrochloride 5 MG Oral Tablet JOHN ([facility]) Ondansetron 8 MG Disintegrating Oral Tablet JOHN ([facility]) Nexium 24HR 20 mg tablet,delayed release JOHN ([facility]) Metronidazole 500 MG Oral Tablet JOHN ([facility]) Metoclopramide 10 MG Oral Tablet JOHN ([facility]) Metformin hydrochloride 500 MG Oral Tablet JOHN ([facility]) Magnesium Oxide 400 MG Oral Tablet JOHN ([facility]) Lidocaine 25 MG/ML / Prilocaine 25 MG/ML Topical Cream JOHN ([facility]) Lidocaine 40 MG/ML Topical Cream JOHN ([facility]) Levetiracetam 1000 MG Oral Tablet JOHN ([facility]) Ketoconazole 20 MG/ML Topical Cream JOHN ([facility]) Ibuprofen 800 MG Oral Tablet JOHN ([facility]) heparin sodium, porcine 5000 UNT/ML Injectable Solution JOHN ([facility]) gabapentin 600 MG Oral Tablet JOHN ([facility]) 0.5 ML Fondaparinux sodium 5 MG/ML Prefilled Syringe JOHN ([facility]) Fluconazole 150 MG Oral Tablet JOHN ([facility]) ferrous sulfate 324 mg (65 mg iron) tablet,delayed release JOHN ([facility]) Esomeprazole 20 MG Delayed Release Oral Capsule JOHN ([facility]) Clonazepam 0.5 MG Oral Tablet JOHN ([facility]) Cephalexin 500 MG Oral Capsule JOHN ([facility]) Bacitracin 0.5 UNT/MG Topical Ointment JOHN ([facility]) Aspirin 81 MG Delayed Release Oral Tablet JOHN ([facility]) Amoxicillin 875 MG / Clavulanate 125 MG Oral Tablet JOHN ([facility]) Ajovy Syringe 225 mg/1.5 mL subcutaneous JOHN ([facility]) rivaroxaban 20 MG Oral Tablet [Xarelto] JOHN ([facility]) rivaroxaban 15 MG Oral Tablet [Xarelto] JOHN ([facility]) Ergocalciferol 63071 UNT Oral Capsule JOHN ([facility]) Ascorbic Acid 500 MG Oral Tablet JOHN ([facility]) tramadol hydrochloride 50 MG Oral Tablet JOHN ([facility]) topiramate 50 MG Oral Tablet JOHN ([facility]) topiramate 25 MG Oral Tablet JOHN ([facility]) quetiapine 100 MG Oral Tablet JOHN ([facility]) Progesterone 200 MG Oral Capsule JOHN ([facility]) Prednisone 50 MG Oral Tablet JOHN ([facility]) Prednisone 10 MG Oral Tablet JOHN ([facility]) Prazosin 1 MG Oral Capsule A THENA ([facility]) Acetaminophen 325 MG / Oxycodone Hydrochloride 5 MG Oral Tablet JOHN ([facility]) Oxycodone Hydrochloride 5 MG Oral Tablet JOHN ([facility]) Ondansetron 8 MG Disintegrating Oral Tablet JOHN ([facility]) Nexium 24HR 20 mg tablet,delayed release JOHN ([facility]) Metronidazole 500 MG Oral Tablet JOHN ([facility]) Metoclopramide 10 MG Oral Tablet JOHN ([facility]) Metformin hydrochloride 500 MG Oral Tablet JOHN ([facility]) Magnesium Oxide 400 MG Oral Tablet JOHN ([facility]) Lidocaine 25 MG/ML / Prilocaine 25 MG/ML Topical Cream JOHN ([facility]) Lidocaine 40 MG/ML Topical Cream JOHN ([facility]) Levetiracetam 1000 MG Oral Tablet JOHN ([facility]) Ketoconazole 20 MG/ML Topical Cream JOHN ([facility]) Ergocalciferol 76686 UNT Oral Capsule JOHN ([facility]) Ascorbic Acid 500 MG Oral Tablet JOHN ([facility]) tramadol hydrochloride 50 MG Oral Tablet JOHN ([facility]) topiramate 50 MG Oral Tablet JOHN ([facility]) topiramate 25 MG Oral Tablet JOHN ([facility])
[2020-11-28] MEDS ORDERED: ONDANSETRON 4MG/2ML VIAL IV ONE (16:30)
[2020-11-28] MEDS ORDERED: MORPHINE 4 MG/ML 1ML VIAL/SYRINGE (J2270) IV ONE (16:30)
[2020-11-28 16:53] LABS: BASO # 0.1 10^3/uL (0.0-0.2); BASO % 0.4 % (0.0-1.0); EOS # 0.7 10^3/uL (0.0-0.5); EOS % 5.5 % (0.0-3.0); HEMATOCRIT 38.4 % (36.0-47.0); HEMOGLOBIN 11.9 g/dl (12.0-15.5); LYMPH # 3.8 10^3/uL (1.5-5.0); LYMPH % 28.6 % (24.0-44.0); MEAN CORPUSCULAR HEMOGLOBIN 25.3 pg (27.0-33.0); MEAN CORPUSCULAR VOLUME 81.5 fl (80.0-96.0); MONO # 0.5 10^3/uL (0.0-0.8); MONO % 3.9 % (0.0-5.0); NEUTROPHILS # 8.1 10^3/uL (1.5-8.5); NEUTROPHILS % 61.2 % (36.0-66.0); PLATELET COUNT, AUTOMATED 298 10^3/uL (150-450); RED BLOOD COUNT 4.71 10^6/uL (4.00-5.40); WHITE BLOOD COUNT 13.2 10^3/uL (4.0-10.0)
[2020-11-28 16:56] LABS: APPEARANCE, URINE HAZY (CLEAR); BACTERIA, URINE AUTO NEGATIVE (NEGATIVE); BILIRUBIN, URINE AUTO NEGATIVE (NEGATIVE); BLOOD, URINE BLOOD 3+ (NEGATIVE); COLOR, URINE RED (YELLOW); GLUCOSE, URINE (UA) AUTO NEGATIVE (NEGATIVE); KETONE, URINE AUTO NEGATIVE (NEGATIVE); LEUKOCYTE ESTERASE, URINE AUTO 1+ (NEGATIVE); NITRITE, URINE AUTO NEGATIVE (NEGATIVE); PROTEIN, URINE AUTO 1+ mg/dL (NEGATIVE); RBC, URINE AUTO TNTC /HPF (0-3); SPECIFIC GRAVITY URINE AUTO 1.005 (1.002-1.035); SQUAMOUS EPITHELIAL CELL UR AU 1 /HPF (0-6); UROBILINOGEN, URINE AUTO 0.2 mg/dL (0.0-2.0); WBC, URINE AUTO 4 /HPF (0-3)
[2020-11-28 17:00] VITALS: BP 141/88
[2020-11-28 17:22] LABS: INR 1.01; PROTHROMBIN TIME 13.5 SECONDS (12.5-14.3)
[2020-11-28 17:24] LABS: ALBUMIN 3.3 GM/DL (3.2-5.2); ALT/SGPT 29 U/L (12-78); BILIRUBIN,DIRECT < 0.1 MG/DL (0.0-0.2); BILIRUBIN,TOTAL 0.1 MG/DL (0.2-1.0); BLOOD UREA NITROGEN 10 MG/DL (7-18); CARBON DIOXIDE LEVEL 25 MEQ/L (21-32); CHLORIDE LEVEL 106 MEQ/L (98-107); GLOMERULAR FILTRATION RATE > 60.0 (>60); GLUCOSE, FASTING 100 MG/DL (70-100); POTASSIUM SERUM 3.6 MEQ/L (3.5-5.1); SODIUM LEVEL 140 MEQ/L (136-145); TOTAL PROTEIN 6.8 GM/DL (6.4-8.2)
--- NOTE | 2020-11-28 17:50 | REPVR ---
PROCEDURE INFORMATION: Exam: US Nonobstetric Pelvis; Complete Exam date and time: 11/28/2020 4:48 PM Age: 30 years old Clinical indication: Pelvic pain; Prior surgery; Surgery date: 3-7 days post-operative; Surgery type: Tubal ligation; Additional info: Bleeding TECHNIQUE: Imaging protocol: Transabdominal pelvic nonobstetric ultrasound. Complete exam. Real time ultrasound with image documentation. Other technique: Real-time transabdominal and transvaginal pelvic ultrasound (complete) with 2-D gonzalez scale, Duplex color Doppler flow and spectral waveform analysis with image documentation. Transvaginal imaging was used for better evaluation of the endometrium and adnexa. COMPARISON: Pelvis, limited US 06/18/2020 3:09 PM FINDINGS: Uterus/cervix: The uterus is normal, measuring 8.3 x 4.2 x 6.0 cm. The endometrial stripe is normal measuring 5.4 mm in thickness. Right adnexa: The right ovary is normal measuring 2.6 x 1.9 x 2.1 cm. No mass. Normal arterial and venous blood flow. Left adnexa: The left ovary is normal measuring 3.6 x 1.9 x 2.2 cm. No mass. Normal arterial and venous blood flow. Intraperitoneal space: Only a trace of intraperitoneal fluid is present in the pelvic cul-de-sac. Urinary bladder: Normal. IMPRESSION: No acute findings. Both uterus and ovaries are normal. No ovarian torsion. Electronically signed by: Dominick Mackay On 11/28/2020 17:50:09 PM
== END 2020-11-28 20:05 | disposition home or self-care (01) ==
LOC: M ED 15:13
DX: G89.18 Other acute postprocedural pain (principal); N93.9 Abnormal uterine and vaginal bleeding, unspecified; R31.9 Hematuria, unspecified; R10.2 Pelvic and perineal pain; I11.9 Hypertensive heart disease without heart failure; Z88.8 Allergy status to other drugs, medicaments and biological substances; Z91.040 Latex allergy status; Z79.01 Long term (current) use of anticoagulants; Z79.899 Other long term (current) drug therapy
CPT/HCPCS: 76830; 76856; 80048; 80076; 81001; 85025; 85610; 86850; 86900; 86901; 87086; 93976; 96374; 96375; 99283; J2270; J2405

== ENCOUNTER → 2020-11-30 | Outpatient (CLI) | payer OTHER ==
[~2020-11-30] MED LIST changes: +BENL200I
--- NOTE | 2020-12-01 23:41 | ECWPNPC ---
PATIENT NAME: WINSOME RODRIGUEZ : 1990 GENDER: FEMALE VISIT DATE: 11/30/2020 DISCHARGE DATE: 11/30/20 1430 VISIT LOCKED DATE TIME: PHYSICIAN: ISATU AZUL RESOURCE: ISATU AZUL REASON FOR APPOINTMENT 1. NBP BACK PAIN HISTORY OF PRESENT ILLNESS DEPRESSION SCREENING: PHQ-2 (2015 EDITION) LITTLE INTEREST OR PLEASURE IN DOING THINGS?NOT AT ALL FEELING DOWN, DEPRESSED, OR HOPELESS?NOT AT ALL TOTAL SCORE0 30-YEAR-OLD FEMALE IN FOR CONSULT REGARDING A NEW BODY PART THAT BEING HER LOW BACK. PATIENT ADMITS TO LOW BACK PAIN FOR SEVERAL YEARS FURTHER STATING SHE'S HAD SPINAL INJECTIONS IN THE PAST AND EXACERBATED HER SYMPTOMS. SHE STATES HER PRIMARY CARE PROVIDER WOULD LIKE THIS CONTRACTS ATTORNEY TO TAKE OVER HER PRESCRIPTIONS. GENERAL: -. FALL RISK SCREENING: SCREENING :TWO OR MORE FALLS WITH INJURY IN THE PAST YEAR PATIENT STATES SHE HAS HAD "THREE FALLS IN THE PAST YEAR. TWO OF THE FALLS REQUIRED MEDICAL TREATMENT." PATIENT STATES SHE "WENT TO [facility] FOR TREATMENT." PAIN SCREENING: PATIENT HAS A COMPLAINT OF ACUTE OR CHRONIC PAIN :NO NURSING NOTE: -. PAIN CENTER INTAKE QUESTIONS: DO YOU HAVE A HISTORY OF MRSA? :NO DO YOU TAKE A BLOOD THINNERS? :YES ELIQUIS DO YOU HAVE ANY BLEEDING DISORDERS? :NO ANY NEW NUMBNESS OR WEAKNESS IN YOUR LEGS OR ARMS? :NO ANY PACEMAKER,DEFIBRILLATOR, OR DORSAL COLUMN STIMULATOR? :NO DO YOU HAVE ANY RASHES OR OPEN SORES? :NO ARE YOU ALLERGIC TO IV DYE? :NO ARE YOU DIABETIC? :NO ANY NEW PROBLEMS WITH YOUR MEDICATIONS? :NO HAVE YOU RECEIVED A VACCINE IN THE PAST 30 DAYS? :NO DO YOU PLAN TO RECEIVE A VACCINE IN THE NEXT 21 DAYS? :NO DO YOU NEED ANY PRESCRIPTION? :NO DO YOU TAKE ANY IMMUNOSUPPRESSIVE MEDICATIONS? :NO IS THERE A CHANCE YOU COULD BE ? :NO ARE YOU BREAST FEEDING? :NO CURRENT MEDICATIONS TAKING KEPPRA 750 MG TABLET 2 TABS ORALLY BID, NOTES: 11/22 699 TAKING SEROQUEL 50 MG TABLET 1 CAP ORALLY MORNING AND LUNCH TAKING SEROQUEL 300 MG TABLET 1 TABLET AT BEDTIME ORALLY ONCE A DAY TAKING HYDROCHLOROTHIAZIDE 25 MG TABLET 1 TABLET IN THE MORNING ORALLY ONCE A DAY, NOTES: 11/22 699 TAKING ALBUTEROL SULFATE HFA 108 (90 BASE) MCG/ACT AEROSOL SOLUTION 1 PUFF NEEDED INHALATION EVERY 4 HRS TAKING ALBUTEROL ALBUTEROL NEBULIZERS PRN TAKING NIFEDIPINE ER 60 MG TABLET EXTENDED RELEASE 24 HOUR 1 TABLET ON AN EMPTY STOMACH ORALLY ONCE A DAY, NOTES: 11/22 0700 TAKING PROZAC 20 MG CAPSULE 3 TABS ORALLY 60 MG DAILY TAKING BOTOX 100 UNIT SOLUTION RECONSTITUTED FOR IM INJECTION AT THE HEAD, NECK AND SHOULDER MUSCLES ICD G43.709 BOTOX APPT ON 11/22/2020 AT 2PM. TAKING ELIQUIS TABLET 5MG ORAL BID, NOTES: 11/20 NOT-TAKING FIORINAL 50-325-40 MG CAPSULE 1 CAPSULE NEEDED ORALLY THREE TIMES DAILY NEEDED, NOTES: NONE IN 1 WEEK NOT-TAKING HYDROCODONE-ACETAMINOPHEN 5-325 MG TABLET 1 TABLET NEEDED ORALLY THREE TIMES DAILY NEEDED NOT-TAKING FIORICET 50-325-40 MG TABLET 1 TABLET NEEDED ORALLY EVERY 4 HRS NOT-TAKING PREDNISOLONE _ TABLET 1 TABLET IN THE MORNING WITH FOOD OR MILK ORALLY PATIENT STATES SHE IS CURRENTLY ON A TAPERING DOSE OF PREDNISONE MEDICATION LIST REVIEWED AND RECONCILED WITH THE PATIENT PAST MEDICAL HISTORY LUPUS MIGRAINES HYPERTENSION EPILEPSY FRACTURED RIGHT FOOT CHEMICAL BURN RIGHT LEG 2 BULGING DISCS IN BACK MOBID OBESITY TUBAL LIGATION 11/25/2020 ALLERGIES LATEX EXAM GLOVES: HIVES - ALLERGY PHENERGAN: NAUSEA/VOMITING - SIDE EFFECTS PEPCID: NAUSEA/VOMITING - SIDE EFFECTS PLAQUENIL: ANAPHYLAXIS - ALLERGY SURGICAL HISTORY GALL BLADDER REMOVAL APPENDECTOMY TONSILLECTOMY D&C X 2 C-SECTIONS X5 SOCIAL HISTORY GENERAL: TOBACCO USE ARE YOU A:FORMER SMOKER HOW LONG HAS IT BEEN SINCE YOU LAST SMOKED?> 10 YEARS VAPORNO E-CIGARETTENO LATEX QUESTIONNAIRE LATEX ALLERGY : HAVE YOU EVER DEVELOPED ANY TYPE OF REACTION AFTER HANDLING LATEX PRODUCTS SUCH RUBBER GLOVES, CONDOMS, DIAPHRAGMS, BALLOONS, SOCKS, OR UNDERWEAR?YES - PLEASE INDICATE :OTHER (DOCUMENT IN NOTES) TUBING IN THR OR LATEX ALLERGY : HAVE YOU EVER DEVELOPED ANY TYPE OF REACTION DURING OR AFTER DENTAL APPOINTMENT, VAGINAL/RECTAL EXAMINATION, SURGICAL PROCEDURE, OR ANY OTHER EXPOSURE?YES - PLEASE INDICATE :VAGINAL EXAM VAGINAL SWELLING AFTER EXAM. HIVES ALSO. LATEX RISK : HAVE YOU EVER HAD ANY DIFFICULTY BREATHING OR HIVES AFTER EATING OR HANDLING ANY FRUITS, OR VEGETABLES; SUCH KIWI, BANANAS, STONE FRUITS, OR CHESTNUTSYES NOTED THROAT SWELLING AFTER EATING A BANANA - PLEASE INDICATE : BANANAS LATEX RISK : DO YOU HAVE A PREVIOUS PERSONAL HISTORY OF MORE THAN NINE SURGERIES, SPINA BIFIDA, OR REPEATED CATHERIZATIONS? YES - PLEASE INDICATE : > 9 SURGERIES LATEX RISK : ARE YOU FREQUENTLY EXPOSED TO LATEX PRODUCTS IN YOUR OCCUPATION?NO DATE ASKED : 11/30/2020 ALCOHOL SCREENING DID YOU HAVE A DRINK CONTAINING ALCOHOL IN THE PAST YEAR?NO POINTS0 INTERPRETATIONNEGATIVE RECREATIONAL DRUG USE DRUG USE?NO PATIENT DENIES ABUSE OR MISSUSED OF ANY MEDICATION DENIES PATIENT DENIES USE OF ANY ILLEGAL SUBSTANCE INCLUDING MARIJUANA OR COCAINE DENIES CAFFEINE CAFFEINE USE?YES HOW OFTEN AND HOW MUCH? STATES YES BECAUSE CAFFEINE DOES HELP WITH HEADACHES TAOIST TAOIST NO BUDDHISM BELIEFS THAT WOULD IMPACT HEALTH CARE. LANGUAGE LANGUAGES SPOKEN:MONGOLIAN EDUCATION LEVEL OF EDUCATION:COLLEGE LEARNING BARRIERS / SPECIAL NEEDS CHANGE FROM LAST VISIT?YES BARRIERS TO LEARNING?NO HEARING IMPAIRED?NO VISION IMPAIRED?YES :CORRECTIVE LENSES COGNITIVELY IMPAIRED?NO PATIENT REQUESTS PARTNER PRESENT AT VISITS DUE TO "LUPUS FOG" WHICH ALTERS HER MENTATION. 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 DIET: REGULAR. EXERCISE: NO REGULAR EXERCISE. MARITAL STATUS: SINGLE. OTHERS AT HOME: CHILDREN, SO. PAIN CLINIC PFS, CLERGY, PUBLIC HEALTH REFERRALS PFS REFERRAL NEEDED?NO CLERGY REFERRAL NEEDED?NO PUBLIC HEALTH REFERRAL NEEDED?NO WAS THE PROVIDER NOTIFIED OF ANY PERTINENT INFO?YES HAS THE PATIENT BEEN EDUCATED REGARDING HIS/HER PLAN OF CARE?YES HAS THE PATIENT BEEN EDUCATED REGARDING PAIN, THE RISK FOR PAIN, THE IMPORTANCE OF EFFECTIVE PAIN MANAGEMENT, AND THE PAIN ASSESSMENT PROCESS?YES ADVANCE DIRECTIVE ADVANCE DIRECTIVE DISCUSSED WITH PATIENT:YES PATIENT STATES SHE HAS NO ADVANCED DIRECTIVES AND DECLINES THE INFORMATION AT THIS TIME HOSPITALIZATION/MAJOR DIAGNOSTIC PROCEDURE CHILDBIRTH SURGERIES MENTAL HEALTH ISSUES REVIEW OF SYSTEMS CONSTITUTIONAL: ANY RECENT FEVER NO . CHILLS NO . WEIGHT CHANGE OF UNKNOWN REASONS NO . GASTROENTEROLOGY: NEW UNEXPLAINABLE CHANGES IN BOWEL CONTROL NO . CONSTIPATION NO . GENITOURINARY: ANY NEW CHANGE IN BLADDER CONTROL? NO . NEUROLOGY: NEW ONSET DIZZINESS OR NEUROLOGICAL CHANGES NOT MENTIONED NO . NEW NUMBNESS OR PAIN PATTERNS NOT MENTIONED AND PERTINENT TO TODAY'S VISIT NO . CARDIOLOGY: NEW CHEST PRESSURE NO . NEW CHEST PAIN NO . RESPIRATORY: UNEXPLAINABLE COUGH NO . NEW SHORTNESS OF BREATH NO . VITAL SIGNS WT 278.2 LBS, HT 64 IN, BMI 47.75 INDEX, BP 161/101 MM HG, REPEAT BP 150/104 MANUAL, HR 111 /MIN, RR 18 /MIN, TEMP 98.5 F, OXYGEN SAT % 95%, SAFE IN ENV? (Y/N) YES, REVIEWED BY: EARL SIGNS OBTAINED AND REPORTED TO PROVIDER. REPEAT MANUAL BP TAKEN AND REPORTED. BATSHEVA PERAZA MA. EXAMINATION GENERAL EXAMINATION: GENERALNO ACUTE DISTRESS, WELL NOURISHED AND HYDRATED. PSYCHAPPROPRIATE MOOD AND AFFECT . LUNGS:CLEAR TO AUSCULTATION BILATERALLY, NO WHEEZES, RHONCHI, RALES. HEART:NO MURMURS, REGULAR RATE AND RHYTHM. BACK:POINT TENDER BILATERAL LOW BACK, SURROUNDING SKIN SHOWS NO ERYTHEMA, ECCHYMOSIS, INCREASED WARMTH, AND/OR SKIN ERUPTIONS NOTED. BANDS OF RESTRICTIVE TISSUE NOTED OVER TRIGGER POINT. . ASSESSMENTS OTHER CHRONIC PAIN - G89.29 (PRIMARY) MYALGIA, OTHER SITE - M79.18 TREATMENT OTHER CHRONIC PAIN PAIN PROCEDURE LOGDATE OF PROCEDURE11/22/20PROCEDURE:BOTOX INJECTION TO THE NECK,HEAD, AND SHOULDERSAMOUNT OF PRE SEDATEHYDROCODONE 5MG, VALIUM 10MG NOTES: 30-YEAR-OLD FEMALE IN FOR CONSULT REGARDING NEW BODY PART. GIVEN PRESENTING SYMPTOMS AND RESULTS PHYSICAL EXAMINATION RECOMMEND TRIGGER POINT INJECTIONS TO THE LOW BACK BILATERALLY WITH POST PROCEDURAL FOLLOW-UP. PATIENT HAS EXPRESSED UNDERSTANDING OF AND WAS IN AGREEMENT WITH TREATMENT PLAN. GIVEN TIME TO ASK QUESTIONS AND EXPRESS CONCERNS. PROCEDURE CODES FA211 ESTABILISHED PATIENT [facility] CHARGE DISPOSITION & COMMUNICATION FOLLOW UP POSTPROCEDURE (REASON: LATERAL LOW BACK TRIGGER POINT INJECTIONS) ELECTRONICALLY SIGNED BY PAU AGUILAR ON 12/01/2020 AT 09:20 AM EST DISCLAIMER : THIS IS A VISIT SUMMARY EXTRACTED FROM THE [employer] CHART. IT IS NOT A COPY OF THE [employer] PROGRESS NOTE. KENNY
== END ==
LOC: M PAIN 13:00
PROVIDERS: ATTEND Family Medicine
DX: G89.29 Other chronic pain (principal); M79.18 Myalgia, other site; G43.909 Migraine, unspecified, not intractable, without status migrainosus; I10 Essential (primary) hypertension; G40.909 Epilepsy, unspecified, not intractable, without status epilepticus; M32.9 Systemic lupus erythematosus, unspecified; E66.01 Morbid (severe) obesity due to excess calories; Z68.42 Body mass index [BMI] 45.0-49.9, adult; Z87.891 Personal history of nicotine dependence; Z79.899 Other long term (current) drug therapy; Z91.040 Latex allergy status; Z88.8 Allergy status to other drugs, medicaments and biological substances; Z79.01 Long term (current) use of anticoagulants

== ENCOUNTER → 2020-12-01 | Outpatient (CLI) | payer OTHER ==
--- NOTE | 2020-12-01 14:05 | REP ---
INDICATION: HYPERPARATHYROIDISM, UNSPECIFIED. COMPARISON: Comparison chest CT study September 23, 2020 is reviewed.. TECHNIQUE: 27.5 mCi of technetium 99 M sestamibi is injected and 15 minutes post injection planar images are acquired. Delayed images are in TIPS a paid as a a portion of the imaging protocol however this patient was unable to return for delayed images due to being advised to report to the emergency room to rule out a cervical spine fracture in the interval between the initial images post injection and the anticipated delayed study. Accordingly, this exam is incomplete and will need to be rescheduled. FINDINGS: The initial 15 minutes delayed images demonstrate expected uptake in the thyroid and salivary glands bilaterally. Incidental uptake is noted diffusely in the lung muniz. This implies pulmonary parenchymal pathology. Differential possibilities include systemic lupus, amyloidosis, sarcoidosis, and pulmonary embolism. I am told that this patient does have a diagnosis of lupus. IMPRESSION: Incomplete exam as above due to patient needing to visit the emergency room. Exam will need to be rescheduled as delayed images could not be acquired. The initial images do show incidental uptake diffusely in the pulmonary parenchyma which may be seen in systemic lupus amongst other differential etiologies. <Electronically signed by Carlton Cardona > 12/01/20 7810
== END ==
LOC: EDBD → M RAD 08:33
PROVIDERS: ATTEND Internal Medicine
DX: E21.3 Hyperparathyroidism, unspecified (principal); E55.9 Vitamin D deficiency, unspecified
CPT/HCPCS: 78070; A9500

== ENCOUNTER 2020-12-05 11:41 | Emergency (ER) | payer OTHER ==
[~2020-12-05] VITALS: Ht 162.6 cm; Wt 119.9 kg
[2020-12-05 12:33] LABS: BASO # 0.1 10^3/uL (0.0-0.2); BASO % 0.5 % (0.0-1.0); EOS # 0.3 10^3/uL (0.0-0.5); EOS % 2.1 % (0.0-3.0); HEMOGLOBIN 12.1 g/dl (12.0-15.5); LYMPH # 3.1 10^3/uL (1.5-5.0); LYMPH % 19.3 % (24.0-44.0); MEAN CORPUSCULAR HEMOGLOBIN 25.2 pg (27.0-33.0); MEAN CORPUSCULAR VOLUME 81.3 fl (80.0-96.0); MONO # 0.6 10^3/uL (0.0-0.8); MONO % 3.7 % (0.0-5.0); NEUTROPHILS # 11.8 10^3/uL (1.5-8.5); PLATELET COUNT, AUTOMATED 370 10^3/uL (150-450)
[2020-12-05 12:42] LABS: ALBUMIN 3.7 GM/DL (3.2-5.2); ALT/SGPT 19 U/L (12-78); BILIRUBIN,DIRECT < 0.1 MG/DL (0.0-0.2); BLOOD UREA NITROGEN 15 MG/DL (7-18); CALCIUM LEVEL 9.3 MG/DL (8.5-10.1); CARBON DIOXIDE LEVEL 21 MEQ/L (21-32); CHLORIDE LEVEL 110 MEQ/L (98-107); CREATININE FOR GFR 0.83 MG/DL (0.55-1.30); GLOMERULAR FILTRATION RATE > 60.0 (>60); GLUCOSE, FASTING 90 MG/DL (70-100); LIPASE 165 U/L (73-393); POTASSIUM SERUM 3.6 MEQ/L (3.5-5.1); SODIUM LEVEL 141 MEQ/L (136-145); TOTAL PROTEIN 7.4 GM/DL (6.4-8.2)
[2020-12-05 12:44] LABS: BILIRUBIN,TOTAL < 0.1 MG/DL (0.2-1.0)
[2020-12-05] MEDS ORDERED: ISOVUE-370 76% 100ML VIAL As Ordered ONE (12:44)
[2020-12-05 12:47] LABS: INR 2.09; PROTHROMBIN TIME 23.9 SECONDS (12.5-14.3)
[2020-12-05 12:49] LABS: PARTIAL THROMBOPLASTIN TIME 56.4 SECONDS (24.2-38.5)
[2020-12-05] MEDS: MORPHINE 4 MG/ML 1ML VIAL/SYRINGE (J2270) IV PRN ×2 (13:01→14:03)
--- NOTE | 2020-12-05 13:35 | REP ---
INDICATION: post op abdominal pain. COMPARISON: 09/23/2020 TECHNIQUE: 100 cc Isovue 370 FINDINGS: The lung bases are clear. There is a minimal pericardial effusion status quo. The patient is status post cholecystectomy. The liver, spleen, pancreas, adrenal glands, and kidneys are within normal limits. The abdominal aorta and para-aortic regions are within normal limits. There is no free fluid or free air. There is no mass or adenopathy. Limited evaluation of the bowel loops show no gross abnormalities. The osseous structures are stable and intact. IMPRESSION: No acute disease <Electronically signed by Piotr Farris > 12/05/20 0805
[2020-12-05 14:01] VITALS: BP 146/88
== END 2020-12-05 15:46 | disposition home or self-care (01) ==
LOC: M ED 11:41
DX: K91.89 Other postprocedural complications and disorders of digestive system (principal); I10 Essential (primary) hypertension; G40.909 Epilepsy, unspecified, not intractable, without status epilepticus; M32.9 Systemic lupus erythematosus, unspecified; E66.8 Other obesity; Z79.899 Other long term (current) drug therapy; Z88.8 Allergy status to other drugs, medicaments and biological substances; Z91.040 Latex allergy status; Z87.891 Personal history of nicotine dependence
CPT/HCPCS: 74177; 80048; 80076; 81001; 83690; 85025; 85610; 85730; 86850; 86900; 86901; 93041; 96374; 96376; 99285; J2270; Q9967

== ENCOUNTER 2020-12-06 16:12 | Emergency (ER) | payer OTHER ==
[~2020-12-06] VITALS: Ht 162.6 cm; Wt 127.3 kg
[2020-12-06 16:51] LABS: HEMATOCRIT 36.5 % (36.0-47.0); HEMOGLOBIN 11.4 g/dl (12.0-15.5); MEAN CORPUSCULAR HEMOGLOBIN 25.5 pg (27.0-33.0); MEAN CORPUSCULAR HGB CONC 31.2 g/dl (32.0-36.5); MEAN CORPUSCULAR VOLUME 81.7 fl (80.0-96.0); PLATELET COUNT, AUTOMATED 350 10^3/uL (150-450); RED BLOOD COUNT 4.47 10^6/uL (4.00-5.40); WHITE BLOOD COUNT 12.8 10^3/uL (4.0-10.0)
[2020-12-06] MEDS ORDERED: ACETAMINOPHEN TAB 650MG DOSE (2X325MG) PO ONE (17:45)
[2020-12-06 18:30] VITALS: BP 146/68
== END 2020-12-06 18:59 | disposition home or self-care (01) ==
LOC: EDBD 16:12 → M ED 16:12
DX: K91.89 Other postprocedural complications and disorders of digestive system (principal); I10 Essential (primary) hypertension; G40.909 Epilepsy, unspecified, not intractable, without status epilepticus; M32.9 Systemic lupus erythematosus, unspecified; J45.909 Unspecified asthma, uncomplicated; Z79.899 Other long term (current) drug therapy; Z88.8 Allergy status to other drugs, medicaments and biological substances; Z91.040 Latex allergy status

== ENCOUNTER → 2020-12-16 | Outpatient (CLI) | payer OTHER | LOC: M LABSMTC 13:02 | PROVIDERS: ATTEND Anesthesiology | DX: Z20.828 Contact with and (suspected) exposure to other viral communicable diseases (principal); Z11.59 Encounter for screening for other viral diseases ==

== ENCOUNTER → 2020-12-21 | Outpatient (CLI) | payer OTHER ==
[~2020-12-21] MED LIST changes: +BUPIVACAINE HCL 0.25% 10ML VIAL As Ordered ONE; +BUPIVACAINE HCL 0.25% 30ML VIAL As Ordered ONE; +NORCO, ANEXSIA 5/325MG TABLET (HYDROcodone/ACETAMINOPHEN) As Ordered ONE; +TRIAMCINOLONE ACETONIDE SUSP 40 MG/ML VIAL (J3301) As Ordered ONE; +diazePAM 5MG TABLET As Ordered ONE
--- NOTE | 2020-12-23 02:03 | ECWPNPC ---
PATIENT NAME: WINSOME RODRIGUEZ : 1990 GENDER: FEMALE VISIT DATE: 12/21/2020 DISCHARGE DATE: 12/21/20 1240 VISIT LOCKED DATE TIME: PHYSICIAN: SAMIR MUNIZ MD RESOURCE: SAMIR MUNIZ MD REASON FOR APPOINTMENT 1. TRIGGER POINT INJECTIONS BILATERAL LOW BACK HISTORY OF PRESENT ILLNESS GENERAL: -. FALL RISK SCREENING: SCREENING :TWO OR MORE FALLS WITH INJURY IN THE PAST YEAR SHE STATES SHE WAS EVALUATED AT [facility] AND [place] FOR HER FALLS. THE LAST TIME SHE FELL SHE WAS PREG. AND MISSED THE LAST STEP. PAIN SCREENING: PATIENT HAS A COMPLAINT OF ACUTE OR CHRONIC PAIN :YES LOCATION OF PAIN:LOW BACK SOMETIMES DOWN BOTH LEGS BUT NOT CURRENTLY INTENSITY OF PAIN (SCALE OF 1 TO 10):9 AVERAGE 9 WHAT DOES YOUR PAIN FEEL LIKE:ACHING, INTERMITTENT, SHARP, THROBBING, SORE, SHOOTING DURATION:INTERMITTENT, AWAKENS FROM SLEEP COMES AND GOES ALL DURING THE DAY AND NIGHT PAIN IS INCREASED BY:ACTIVITIES, PROLONGED STANDING PROLONGED SITTING PAIN IS DECREASED BY: HEAT AND SOMETIMES MEDS-ACETAMINOPHEN PAIN HAS INTERFERED WITH THE FOLLOWING: EVERYTHING NURSING NOTE: -. PAIN CENTER INTAKE QUESTIONS: DO YOU HAVE A HISTORY OF MRSA? :NO DO YOU TAKE A BLOOD THINNERS? :NO PATIENT WAS ON ELIQUIS UNTIL 11/25/20 WHEN SHE HAD A TUBAL LIGATION. PATIENT WAS ADVISED BY HER PCP TO STOP TAKING THE ELIQUIS FOR THE TIBAL AND WAS ADVISED BY HER PCP TO BEGIN RETAKING ELIQUIS ON 12/28/2020. RELATED TO THE TUBAL LIGATION. DO YOU HAVE ANY BLEEDING DISORDERS? :NO DVT 09/2020 ANY NEW NUMBNESS OR WEAKNESS IN YOUR LEGS OR ARMS? :NO ANY PACEMAKER,DEFIBRILLATOR, OR DORSAL COLUMN STIMULATOR? :NO DO YOU HAVE ANY RASHES OR OPEN SORES? :NO ARE YOU ALLERGIC TO IV DYE? :NO ARE YOU DIABETIC? :NO ANY NEW PROBLEMS WITH YOUR MEDICATIONS? :NO HAVE YOU RECEIVED A VACCINE IN THE PAST 30 DAYS? :NO DO YOU PLAN TO RECEIVE A VACCINE IN THE NEXT 21 DAYS? :NO DO YOU TAKE ANY IMMUNOSUPPRESSIVE MEDICATIONS? :NO ANY HISTORY OF SEIZURES? :YES ON KEPPRA LAST SEIZURE 01/2020 ANY HISTORY OF CARDIAC ISSUES OR EVENTS? :YES PULMONARY HYPERTENSION DO YOU HAVE SLEEP APNEA? :NO ANY RECENT HEAD INJURY? :NO DO YOU HAVE ANY NEW INFECTIONS? :NO IS THERE A CHANCE YOU COULD BE ? :NO ARE YOU BREAST FEEDING? :NO WHEN DID YOU LAST EAT? : 12/20/2020 WHEN DID YOU LAST DRINK? : 12/21/2020 0900 WHAT DID YOU LAST DRINK? : SPRITE NAME OF PERSON DRIVING YOU HOME? : GARRICK DO YOU HAVE ANY OTHER QUESTIONS OR CONCERNS? : NONE CURRENT MEDICATIONS TAKING FIORICET 50-325-40 MG TABLET 1 TABLET NEEDED ORALLY EVERY 4 HRS TAKING KEPPRA 750 MG TABLET 2 TABS ORALLY BID, NOTES: LAST DOSE 12/21/2020 TAKING SEROQUEL 50 MG TABLET 1 CAP ORALLY MORNING AND LUNCH TAKING SEROQUEL 300 MG TABLET 1 TABLET AT BEDTIME ORALLY ONCE A DAY TAKING HYDROCHLOROTHIAZIDE 25 MG TABLET 1 TABLET IN THE MORNING ORALLY ONCE A DAY TAKING ALBUTEROL SULFATE HFA 108 (90 BASE) MCG/ACT AEROSOL SOLUTION 1 PUFF NEEDED INHALATION EVERY 4 HRS TAKING ALBUTEROL ALBUTEROL NEBULIZERS PRN TAKING NIFEDIPINE ER 60 MG TABLET EXTENDED RELEASE 24 HOUR 1 TABLET ON AN EMPTY STOMACH ORALLY ONCE A DAY TAKING PROZAC 40 MG CAPSULE 2 CAPS ORALLY DAILY TAKING BOTOX 100 UNIT SOLUTION RECONSTITUTED FOR IM INJECTION AT THE HEAD, NECK AND SHOULDER MUSCLES ICD G43.709 BOTOX APPT ON 11/22/2020 AT 2PM. TAKING DUONEB 0.5-2.5 (3) MG/3ML SOLUTION 3 ML NEEDED INHALATION EVERY 6 HRS TAKING HYDROCODONE-ACETAMINOPHEN 5-325 MG TABLET 1 TABLET NEEDED ORALLY THREE TIMES DAILY NEEDED NOT-TAKING PREDNISOLONE _ TABLET 1 TABLET IN THE MORNING WITH FOOD OR MILK ORALLY PATIENT STATES SHE IS CURRENTLY ON A TAPERING DOSE OF PREDNISONE NOT-TAKING ELIQUIS TABLET 5MG ORAL BID NOT-TAKING FIORINAL 50-325-40 MG CAPSULE 1 CAPSULE NEEDED ORALLY THREE TIMES DAILY NEEDED, NOTES: NONE IN 1 WEEK MEDICATION LIST REVIEWED AND RECONCILED WITH THE PATIENT PAST MEDICAL HISTORY LUPUS MIGRAINES HYPERTENSION EPILEPSY FRACTURED RIGHT FOOT CHEMICAL BURN RIGHT LEG 2 BULGING DISCS IN BACK MOBID OBESITY TUBAL LIGATION 11/25/2020 DVT-09/2020 PULMONARY HYPERTENSION ALLERGIES LATEX EXAM GLOVES: HIVES - ALLERGY PHENERGAN: NAUSEA/VOMITING - SIDE EFFECTS PEPCID: NAUSEA/VOMITING - SIDE EFFECTS PLAQUENIL: ANAPHYLAXIS - ALLERGY SURGICAL HISTORY GALL BLADDER REMOVAL APPENDECTOMY TONSILLECTOMY D&C X 2 C-SECTIONS X5 TUBAL LIGATION 11/25/2020 FAMILY HISTORY FATHER: ALIVE, DIAGNOSED WITH UNSPECIFIED CEREBRAL ARTERY OCCLUSION WITH CEREBRAL INFARCTION, HYPERTENSION, DIABETES MOTHER: ALIVE, UNSPECIFIED CEREBRAL ARTERY OCCLUSION WITH CEREBRAL INFARCTION 2 BROTHER(S) - HEALTHY. 1 SON(S) , 3 DAUGHTER(S) - HEALTHY. STATES PARENTS AND SIBLINGS ARE HEALTHY. SOCIAL HISTORY GENERAL: TOBACCO USE ARE YOU A:FORMER SMOKER HOW LONG HAS IT BEEN SINCE YOU LAST SMOKED?> 10 YEARS VAPORNO E-CIGARETTENO LATEX QUESTIONNAIRE LATEX ALLERGY : HAVE YOU EVER DEVELOPED ANY TYPE OF REACTION AFTER HANDLING LATEX PRODUCTS SUCH RUBBER GLOVES, CONDOMS, DIAPHRAGMS, BALLOONS, SOCKS, OR UNDERWEAR?YES - PLEASE INDICATE :OTHER (DOCUMENT IN NOTES) TUBING IN THR OR LATEX ALLERGY : HAVE YOU EVER DEVELOPED ANY TYPE OF REACTION DURING OR AFTER DENTAL APPOINTMENT, VAGINAL/RECTAL EXAMINATION, SURGICAL PROCEDURE, OR ANY OTHER EXPOSURE?YES - PLEASE INDICATE :VAGINAL EXAM VAGINAL SWELLING AFTER EXAM. HIVES ALSO. LATEX RISK : HAVE YOU EVER HAD ANY DIFFICULTY BREATHING OR HIVES AFTER EATING OR HANDLING ANY FRUITS, OR VEGETABLES; SUCH KIWI, BANANAS, STONE FRUITS, OR CHESTNUTSYES NOTED THROAT SWELLING AFTER EATING A BANANA - PLEASE INDICATE : BANANAS LATEX RISK : DO YOU HAVE A PREVIOUS PERSONAL HISTORY OF MORE THAN NINE SURGERIES, SPINA BIFIDA, OR REPEATED CATHERIZATIONS? YES - PLEASE INDICATE : > 9 SURGERIES LATEX RISK : ARE YOU FREQUENTLY EXPOSED TO LATEX PRODUCTS IN YOUR OCCUPATION?NO DATE ASKED : 12/20/2020 ALCOHOL SCREENING DID YOU HAVE A DRINK CONTAINING ALCOHOL IN THE PAST YEAR?NO POINTS0 INTERPRETATIONNEGATIVE RECREATIONAL DRUG USE DRUG USE?NO PATIENT DENIES ABUSE OR MISSUSED OF ANY MEDICATION DENIES PATIENT DENIES USE OF ANY ILLEGAL SUBSTANCE INCLUDING MARIJUANA OR COCAINE DENIES CAFFEINE CAFFEINE USE?YES HOW OFTEN AND HOW MUCH? STATES YES BECAUSE CAFFEINE DOES HELP WITH HEADACHES LATTER-DAY LATTER-DAY NO ROMAN CATHOLIC BELIEFS THAT WOULD IMPACT HEALTH CARE. LANGUAGE LANGUAGES SPOKEN:[place] EDUCATION LEVEL OF EDUCATION:COLLEGE LEARNING BARRIERS / SPECIAL NEEDS CHANGE FROM LAST VISIT?YES BARRIERS TO LEARNING?NO HEARING IMPAIRED?NO VISION IMPAIRED?YES :CORRECTIVE LENSES COGNITIVELY IMPAIRED?NO PATIENT REQUESTS PARTNER PRESENT AT VISITS DUE TO "LUPUS FOG" WHICH ALTERS HER MENTATION. READINESS TO LEARN?YES LEARNING PREFERENCES?YES :HANDOUTS, DEMONSTRATION/VERBAL INSTRUCTION LEARNING CAPABILITIES PRESENT?YES EMOTIONAL BARRIERS?NO SPECIAL DEVICES?YES :WALKER, WHEELCHAIR DUE TO FRACTURED RIGHT FOOT MODEL AND MOLD MAKER PLASTER NEEDED?NO DOMESTIC VIOLENCE DO YOU FEEL SAFE IN YOUR ENVIRONMENT?YES OCCUPATION: UNEMPLOYED. DIET: REGULAR. EXERCISE: NO REGULAR EXERCISE. MARITAL STATUS: SINGLE. OTHERS AT HOME: CHILDREN, SO. - PFS REFERRAL NEEDED?NO CLERGY REFERRAL NEEDED?NO PUBLIC HEALTH REFERRAL NEEDED?NO HAS THE PATIENT BEEN EDUCATED REGARDING HIS/HER PLAN OF CARE?YES HAS THE PATIENT BEEN EDUCATED REGARDING PAIN, THE RISK FOR PAIN, THE IMPORTANCE OF EFFECTIVE PAIN MANAGEMENT, AND THE PAIN ASSESSMENT PROCESS?YES ADVANCE DIRECTIVE ADVANCE DIRECTIVE DISCUSSED WITH PATIENT:YES 12/20/20 PATIENT STATES SHE HAS NO ADVANCED DIRECTIVES AND DECLINES THE INFORMATION AT THIS TIME HOSPITALIZATION/MAJOR DIAGNOSTIC PROCEDURE CHILDBIRTH SURGERIES VITAL SIGNS WT 265 LBS, HT 64 IN, BMI 45.48 INDEX, BP 147/95 MM HG, HR 109 /MIN, RR 18 /MIN, TEMP 98.4 F, OXYGEN SAT % 97%, SAFE IN ENV? (Y/N) YES, NA INITIALS SC 10:56, REVIEWED BY: Obdulia AGRAWAL RN. EXAMINATION GENERAL EXAMINATION: THE PATIENT IS ALERT, ORIENTED TIMES THREE AND COOPERATIVE. LUNGS ARE CLEAR TO AUSCULTATION. HEART SHOWS REGULAR RHYTHM, NO MURMURS AND NO GALLOPS. ASSESSMENTS MYALGIA, OTHER SITE - M79.18 (PRIMARY) TREATMENT MYALGIA, OTHER SITE MEDICATION: VALIUM TAB 10MG ORALLY (DIAZEPAM)LEANNA TREVINO 12/21/2020 12:00:19 PM > VERIFIED FLORIN HIGGINBOTHAM 12/21/2020 12:03:42 PM - ADMINISTERED COMPLETION OF PROCEDURAL VISIT WHEN MEETS CRITERIAFLORIN HIGGINBOTHAM 12/21/2020 12:44:39 PM > CRITERIA MET MEDICATION: (PAIN) NORCO TABLET 5MG/325MG ORALLY (HYDROCODONE/ACETAMINOPHEN)NEW [place] 12/21/2020 11:31:09 AM - GIVE 2 TABS LEANNA TREVINO 12/21/2020 12:00:34 PM > VERIFIED FLORIN HIGGINBOTHAM 12/21/2020 12:03:59 PM - ADMINISTERED OTHERS NOTES: 12/20/20 1100 PRE-PROCEDURE CALL COMPLETED. AD. PROCEDURES PAIN NURSING RECORD PROCEDURE PHYSICIAN IN ROOM 1217, START 1219, FINISH 1222, PHYSICIAN OUT OF ROOM 1223, OUT OF ROOM 1241, ECG N/A, PATIENT SHIELDED N/A, SAFETY STRAP N/A, PREP ALCOHOL BY DR MUNIZ, DRESSING TEGADERM BY Panfilo REGAN RN LOC: 1. ALERT, ORIENTED 12/31/2020 121Emma AGRAWAL RN RESP: 1. REGULAR, NO DYSPNEA 12/31/2020 121Emma AGRAWAL RN COLOR: 1. PINK 12/31/2020 121Emma AGRAWAL RN SKIN: 1. WARM, DRY 12/31/2020 121Emma AGRAWAL RN POSITION: 5. SITTING 12/31/2020 121Emma AGRAWAL RN VITALS: 12/21/2020 1241 N MARCOS AGRAWAL 127/[id number]% NOTES Abdirahman AGRAWAL RN COMPLETION OF PROCEDURE APPOINTMENT: POST PAIN 8 BILATERAL LOWER BACK, DRESSING SITE DRY AND INTACT MID LOWER BACK, IV N/A, GAIT STEADY, TEACHING COMPLETED, PATIENT ACKNOWLEDGES UNDERSTANDING YES, PROCEDURE APPOINTMENT COMPLETED AT 1242 BY: Abdirahman AGRAWAL RN PN TRIGGER POINT INJECTION WITH STEROIDS PRE PROCEDURE DIAGNOSIS 1. MYALGIA 2. PAIN AT BILATERAL LOW BACK AREA POST PROCEDURE DIAGNOSIS 1. MYALGIA 2. PAIN AT BILATERAL LOW BACK AREA PROCEDURE TRIGGER POINT INJECTION AT BILATERAL LOW BACK AREA SURGEON DR. SAMIR MUNIZ MEDICAL VIDEOGRAPHER NONE ANESTHESIA LOCAL PRE PROCEDURE NOTE THE PATIENT HAS A HISTORY OF CHRONIC PAIN AT THE RIGHT AND LEFT LOW BACK AREA. I EVALUATED THE PATIENT AND REVIEWED THE CHART. THERE IS EVIDENCE OF BANDS OF TISSUE WITH RESTRICTION OF MOVEMENT AND PRESENCE OF TRIGGER POINT AT THE RIGHT AND LEFT LOW BACK AREA. I WENT OVER THE RISKS, ALTERNATIVES, AND BENEFITS ASSOCIATED WITH THIS PROCEDURE. THE PATIENT WOULD LIKE TO PROCEED AND GIVE CONSENT TO PERFORMED THE PROCEDURE. THE PATIENT DENIES UNEXPLAINABLE WEIGHT LOSS, FEVER, CHILLS, OR NEW CHANGES IN URINARY OR BOWEL CONTROL. THE PATIENT IS COVID-19 NEGATIVE DESCRIPTION OF PROCEDURE THE PATIENT WAS BROUGHT TO THE PROCEDURE ROOM AND PLACED IN THE SITTING POSITION. THE AREA WAS CLEANED WITH ALCOHOL. THE PROCEDURE WAS DONE USING ASEPTIC STERILE TECHNIQUE. A TIMEOUT WAS PERFORMED WHERE THE CONSENTED SITE WAS VERIFIED WITH EVERYONE IN THE ROOM. USING A 25-GAUGE NEEDLE, TRIGGER POINTS WERE INJECTED AT THE RIGHT AND LEFT LOW BACK AREA WITH A TOTAL OF 40 ML OF BUPIVACAINE 0.25% AND KENALOG 40 MG. THE MEDICATIONS WERE VERIFIED WITH THE NURSE. THERE WAS NO EVIDENCE OF BLOOD OR PARESTHESIA DURING THE PROCEDURE. THE PATIENT WAS SENT TO THE RECOVERY ROOM. THE PATIENT WAS MOVING THE EXTREMITIES AND DOING WELL. THERE WERE NO COMPLICATIONS DURING THE PROCEDURE. ESTIMATED BLOOD LOSS WAS LESS THAN 5 ML POST PROCEDURE NOTE THE PROCEDURE DONE WAS DISCUSSED WITH THE PATIENT. THE PATIENT WILL BE SEEN IN A FOLLOW UP IN THE NEXT FEW WEEKS. I AM LOOKING FOR LONG LASTING PAIN RELIEF FOR THE PATIENT WITH THIS INTERVENTION. INSTRUCTIONS WERE GIVEN, QUESTIONS WERE ANSWERED, AND THE PATIENT EXPRESSED UNDERSTANDING AND AGREES WITH THE PLAN. I, [place], DOCUMENTED THE ABOVE INFORMATION ACTING A SCRIBE FOR DR. MUNIZ. I HAVE REVIEWED THE ABOVE DOCUMENT, WRITTEN BY [place], DISTRIBUTION ASSOCIATE, AND I VERIFY THAT IT IS ACCURATE PROCEDURE CODES 22150 INJ TRIGGER POINT / MUSC DISPOSITION & COMMUNICATION FOLLOW UP FOLLOW UP WITH SILK SCREEN LAYOUT DRAFTER (REASON: POST TRIGGER POINT INJECTIONS BILATERAL LOW BACK) ELECTRONICALLY SIGNED BY SAMIR MUNIZ MD, MD ON 12/22/2020 AT 01:08 PM EST DISCLAIMER : THIS IS A VISIT SUMMARY EXTRACTED FROM THE [employer] CHART. IT IS NOT A COPY OF THE [employer] PROGRESS NOTE. [email or web address]
== END ==
LOC: M PAIN 10:30
PROVIDERS: ATTEND Anesthesiology
DX: M79.18 Myalgia, other site (principal); G43.909 Migraine, unspecified, not intractable, without status migrainosus; I10 Essential (primary) hypertension; G40.909 Epilepsy, unspecified, not intractable, without status epilepticus; E66.01 Morbid (severe) obesity due to excess calories; I27.20 Pulmonary hypertension, unspecified; L93.0 Discoid lupus erythematosus; Z86.718 Personal history of other venous thrombosis and embolism; Z87.891 Personal history of nicotine dependence; Z68.42 Body mass index [BMI] 45.0-49.9, adult; Z79.891 Long term (current) use of opiate analgesic; Z79.899 Other long term (current) drug therapy; Z91.040 Latex allergy status; Z88.8 Allergy status to other drugs, medicaments and biological substances
CPT/HCPCS: 20552; J3301

== ENCOUNTER → 2021-01-12 | Outpatient (CLI) | payer OTHER ==
[~2021-01-12] MED LIST changes: -BUPIVACAINE HCL 0.25% 10ML VIAL As Ordered ONE; -BUPIVACAINE HCL 0.25% 30ML VIAL As Ordered ONE; -NORCO, ANEXSIA 5/325MG TABLET (HYDROcodone/ACETAMINOPHEN) As Ordered ONE; -TRIAMCINOLONE ACETONIDE SUSP 40 MG/ML VIAL (J3301) As Ordered ONE; -diazePAM 5MG TABLET As Ordered ONE
--- NOTE | 2021-01-17 13:47 | ECHO ---
DATE OF PROCEDURE: 01/12/2021 Age: 30 Gender: Female Height: 162 cm Weight: 117 kg REFERRING PHYSICIAN: Sid De Souza M.D. INDICATION: Anti-SENIOR LICENSING MANAGER antibodies, immunological findings. MEASUREMENTS: 2D Measurements: Left ventricle diastole 5.3 cm Intraventricular septum 1.08 cm Posterior wall 0.91 cm Aortic root 3.0 cm Left atrium 4.1 cm Left atrial volume index 24 cm Inferior vena cava 1.3 cm (normal respiratory variation) Doppler Measurements: No aortic stenosis No aortic regurgitation Aortic valve velocity 141 cm/s LVOT velocity 104 cm/s No mitral stenosis No mitral regurgitation Mitral E velocity 93.8 cm/s Mitral A velocity 50.1 cm/s Mitral deceleration time 180 msec No tricuspid regurgitation No pulmonic regurgitation Pulmonary artery acceleration time 182 msec MITRAL ANNULAR TISSUE DOPPLER E prime septal 10.6 cm/s, E prime lateral 8.5 cm/s DESCRIPTION: Rhythm was sinus rhythm and sinus bradycardia observed. Image quality was fair. This was a 2D, M-mode, color flow Doppler, and pulsed wave Doppler examination including mitral annular tissue Doppler. CONCLUSIONS: 1. Normal left ventricle internal dimensions and wall thickness. Normal regional LV wall motion and wall thickening. Normal LV systolic function. LVEF 65% by visual estimate. Normal LV diastolic function. 2. Small circumferential pericardial effusion without diastolic chamber collapse and without significant respiratory variation of intracardiac velocities. Pericardial effusion measured 0.9 cm over the posterior basal LV segment. No spanning seen within the pericardial effusion. 3. At least some left pleural effusion. 4. Otherwise normal appearing echocardiogram Doppler findings. MTDD
== END ==
LOC: M CARPUL 08:44
PROVIDERS: ATTEND Internal Medicine
DX: R76.8 Other specified abnormal immunological findings in serum (principal)

== ENCOUNTER → 2021-01-17 | Outpatient (CLI) | payer OTHER ==
--- NOTE | 2021-01-19 03:10 | ECWPNPC ---
PATIENT NAME: WINSOME RODRIGUEZ : 1990 GENDER: FEMALE VISIT DATE: 01/17/2021 DISCHARGE DATE: 01/17/21 1227 VISIT LOCKED DATE TIME: PHYSICIAN: ISATU AZUL RESOURCE: ISATU AZUL REASON FOR APPOINTMENT 1. POST BOTOX HISTORY OF PRESENT ILLNESS GENERAL: - 30-YEAR-OLD FEMALE IN FOR POST BOTOX INJECTION FOLLOW-UP. PATIENT FEELS THE PROCEDURE WAS SUCCESSFUL FURTHER STATING THAT SHE NOTICED A DECREASE IN HER MIGRAINES. FALL RISK SCREENING: PATIENT STATES SHE FELL 01/05/20 AND SOUGHT TREATMENT AT [facility]. PAIN SCREENING: PATIENT HAS A COMPLAINT OF ACUTE OR CHRONIC PAIN :YES LOCATION OF PAIN:LOW BACK INTENSITY OF PAIN (SCALE OF 1 TO 10):8 WHAT DOES YOUR PAIN FEEL LIKE:CONTINOUS, SHARP DURATION:CONTINOUS, CONSTANT, AWAKENS FROM SLEEP PAIN IS INCREASED BY:ACTIVITIES, PROLONGED STANDING PAIN IS DECREASED BY:OTHERS ICE, HEAT, TYLENOL NURSING NOTE: -. PAIN CENTER INTAKE QUESTIONS: DO YOU HAVE A HISTORY OF MRSA? :NO DO YOU TAKE A BLOOD THINNERS? :YES ELOQUIS DO YOU HAVE ANY BLEEDING DISORDERS? :NO ANY NEW NUMBNESS OR WEAKNESS IN YOUR LEGS OR ARMS? :NO ANY PACEMAKER,DEFIBRILLATOR, OR DORSAL COLUMN STIMULATOR? :NO DO YOU HAVE ANY RASHES OR OPEN SORES? :NO ARE YOU ALLERGIC TO IV DYE? :NO ARE YOU DIABETIC? :NO ANY NEW PROBLEMS WITH YOUR MEDICATIONS? :NO HAVE YOU RECEIVED A VACCINE IN THE PAST 30 DAYS? :NO DO YOU PLAN TO RECEIVE A VACCINE IN THE NEXT 21 DAYS? :NO DO YOU NEED ANY PRESCRIPTION? :YES FIORECET TABLETS, HYDROCODONE. WILL DISCUSS. DO YOU TAKE ANY IMMUNOSUPPRESSIVE MEDICATIONS? :NO DO YOU HAVE ANY KIDNEY OR LIVER DISEASE? :NO IS THERE A CHANCE YOU COULD BE ? :NO ARE YOU BREAST FEEDING? :NO CURRENT MEDICATIONS TAKING KEPPRA 750 MG TABLET 2 TABS ORALLY BID, NOTES: LAST DOSE 12/21/2020 TAKING SEROQUEL 50 MG TABLET 1 CAP ORALLY MORNING AND LUNCH TAKING SEROQUEL 300 MG TABLET 1 TABLET AT BEDTIME ORALLY ONCE A DAY TAKING HYDROCHLOROTHIAZIDE 25 MG TABLET 1 TABLET IN THE MORNING ORALLY ONCE A DAY TAKING ALBUTEROL SULFATE HFA 108 (90 BASE) MCG/ACT AEROSOL SOLUTION 1 PUFF NEEDED INHALATION EVERY 4 HRS TAKING ALBUTEROL ALBUTEROL NEBULIZERS PRN TAKING NIFEDIPINE ER 60 MG TABLET EXTENDED RELEASE 24 HOUR 1 TABLET ON AN EMPTY STOMACH ORALLY ONCE A DAY TAKING PROZAC 40 MG CAPSULE 2 CAPS ORALLY DAILY TAKING BOTOX 100 UNIT SOLUTION RECONSTITUTED FOR IM INJECTION AT THE HEAD, NECK AND SHOULDER MUSCLES ICD G43.709 BOTOX APPT ON 11/22/2020 AT 2PM. TAKING DUONEB 0.5-2.5 (3) MG/3ML SOLUTION 3 ML NEEDED INHALATION EVERY 6 HRS TAKING FIORICET 50-325-40 MG TABLET 1 TABLET NEEDED ORALLY EVERY 4 HRS TAKING HYDROCODONE-ACETAMINOPHEN 5-325 MG TABLET 1 TABLET NEEDED ORALLY THREE TIMES DAILY NEEDED TAKING ELIQUIS TABLET 5MG ORAL BID NOT-TAKING PREDNISOLONE _ TABLET 1 TABLET IN THE MORNING WITH FOOD OR MILK ORALLY PATIENT STATES SHE IS CURRENTLY ON A TAPERING DOSE OF PREDNISONE NOT-TAKING FIORINAL 50-325-40 MG CAPSULE 1 CAPSULE NEEDED ORALLY THREE TIMES DAILY NEEDED, NOTES: NONE IN 1 WEEK MEDICATION LIST REVIEWED AND RECONCILED WITH THE PATIENT PAST MEDICAL HISTORY LUPUS MIGRAINES HYPERTENSION EPILEPSY FRACTURED RIGHT FOOT CHEMICAL BURN RIGHT LEG 2 BULGING DISCS IN BACK MOBID OBESITY TUBAL LIGATION 11/25/2020 DVT-09/2020 PULMONARY HYPERTENSION ALLERGIES LATEX EXAM GLOVES: HIVES - ALLERGY PHENERGAN: NAUSEA/VOMITING - SIDE EFFECTS PEPCID: NAUSEA/VOMITING - SIDE EFFECTS PLAQUENIL: ANAPHYLAXIS - ALLERGY SURGICAL HISTORY GALL BLADDER REMOVAL APPENDECTOMY TONSILLECTOMY D&C X 2 C-SECTIONS X5 TUBAL LIGATION 11/25/2020 SOCIAL HISTORY GENERAL: TOBACCO USE ARE YOU A:FORMER SMOKER HOW LONG HAS IT BEEN SINCE YOU LAST SMOKED?> 10 YEARS VAPORNO E-CIGARETTENO LATEX QUESTIONNAIRE LATEX ALLERGY : HAVE YOU EVER DEVELOPED ANY TYPE OF REACTION AFTER HANDLING LATEX PRODUCTS SUCH RUBBER GLOVES, CONDOMS, DIAPHRAGMS, BALLOONS, SOCKS, OR UNDERWEAR?YES - PLEASE INDICATE :OTHER (DOCUMENT IN NOTES) TUBING IN THR OR LATEX ALLERGY : HAVE YOU EVER DEVELOPED ANY TYPE OF REACTION DURING OR AFTER DENTAL APPOINTMENT, VAGINAL/RECTAL EXAMINATION, SURGICAL PROCEDURE, OR ANY OTHER EXPOSURE?YES - PLEASE INDICATE :VAGINAL EXAM VAGINAL SWELLING AFTER EXAM. HIVES ALSO. LATEX RISK : HAVE YOU EVER HAD ANY DIFFICULTY BREATHING OR HIVES AFTER EATING OR HANDLING ANY FRUITS, OR VEGETABLES; SUCH KIWI, BANANAS, STONE FRUITS, OR CHESTNUTSYES NOTED THROAT SWELLING AFTER EATING A BANANA - PLEASE INDICATE : BANANAS LATEX RISK : DO YOU HAVE A PREVIOUS PERSONAL HISTORY OF MORE THAN NINE SURGERIES, SPINA BIFIDA, OR REPEATED CATHERIZATIONS? YES - PLEASE INDICATE : > 9 SURGERIES LATEX RISK : ARE YOU FREQUENTLY EXPOSED TO LATEX PRODUCTS IN YOUR OCCUPATION?NO DATE ASKED : 01/17/2021 ALCOHOL USE: NO. ALCOHOL SCREENING DID YOU HAVE A DRINK CONTAINING ALCOHOL IN THE PAST YEAR?NO POINTS0 INTERPRETATIONNEGATIVE RECREATIONAL DRUG USE DRUG USE?NO PATIENT DENIES ABUSE OR MISSUSED OF ANY MEDICATION DENIES PATIENT DENIES USE OF ANY ILLEGAL SUBSTANCE INCLUDING MARIJUANA OR COCAINE DENIES CAFFEINE CAFFEINE USE?YES HOW OFTEN AND HOW MUCH? STATES YES BECAUSE CAFFEINE DOES HELP WITH HEADACHES RASTAFARIAN RASTAFARIAN NO CONFUCIANISM BELIEFS THAT WOULD IMPACT HEALTH CARE. LANGUAGE LANGUAGES SPOKEN:MAURITIAN EDUCATION LEVEL OF EDUCATION:COLLEGE LEARNING BARRIERS / SPECIAL NEEDS CHANGE FROM LAST VISIT?YES BARRIERS TO LEARNING?NO HEARING IMPAIRED?NO VISION IMPAIRED?YES :CORRECTIVE LENSES COGNITIVELY IMPAIRED?NO PATIENT REQUESTS PARTNER PRESENT AT VISITS DUE TO "LUPUS FOG" WHICH ALTERS HER MENTATION. READINESS TO LEARN?YES LEARNING PREFERENCES?YES :HANDOUTS, DEMONSTRATION/VERBAL INSTRUCTION LEARNING CAPABILITIES PRESENT?YES EMOTIONAL BARRIERS?NO SPECIAL DEVICES?YES :WALKER, WHEELCHAIR DUE TO FRACTURED RIGHT FOOT LEGAL MANAGER NEEDED?NO DOMESTIC VIOLENCE DO YOU FEEL SAFE IN YOUR ENVIRONMENT?YES OCCUPATION: UNEMPLOYED. DIET: REGULAR. EXERCISE: NO REGULAR EXERCISE. MARITAL STATUS: SINGLE. OTHERS AT HOME: CHILDREN, SO. - PFS REFERRAL NEEDED?NO CLERGY REFERRAL NEEDED?NO PUBLIC HEALTH REFERRAL NEEDED?NO HAS THE PATIENT BEEN EDUCATED REGARDING HIS/HER PLAN OF CARE?YES HAS THE PATIENT BEEN EDUCATED REGARDING PAIN, THE RISK FOR PAIN, THE IMPORTANCE OF EFFECTIVE PAIN MANAGEMENT, AND THE PAIN ASSESSMENT PROCESS?YES ADVANCE DIRECTIVE ADVANCE DIRECTIVE DISCUSSED WITH PATIENT:YES 12/20/20 PATIENT STATES SHE HAS NO ADVANCED DIRECTIVES AND DECLINES THE INFORMATION AT THIS TIME HOSPITALIZATION/MAJOR DIAGNOSTIC PROCEDURE CHILDBIRTH SURGERIES REVIEW OF SYSTEMS CONSTITUTIONAL: ANY RECENT FEVER NO . CHILLS NO . WEIGHT CHANGE OF UNKNOWN REASONS NO . GASTROENTEROLOGY: NEW UNEXPLAINABLE CHANGES IN BOWEL CONTROL NO . CONSTIPATION NO . GENITOURINARY: ANY NEW CHANGE IN BLADDER CONTROL? NO . NEUROLOGY: NEW ONSET DIZZINESS OR NEUROLOGICAL CHANGES NOT MENTIONED NO . NEW NUMBNESS OR PAIN PATTERNS NOT MENTIONED AND PERTINENT TO TODAY'S VISIT NO . CARDIOLOGY: NEW CHEST PRESSURE NO . PATIENT DENIES NO . RESPIRATORY: UNEXPLAINABLE COUGH NO . NEW SHORTNESS OF BREATH NO . VITAL SIGNS WT 269.0 LBS, HT 64 IN, BMI 46.17 INDEX, BP 156/85 MM HG, HR 82 /MIN, RR 18 /MIN, TEMP 97.7 F, OXYGEN SAT % 97%, NA INITIALS AW 1112, REVIEWED BY: RAJIV PERAZA MA. EXAMINATION GENERAL EXAMINATION: GENERALNO ACUTE DISTRESS, WELL NOURISHED AND HYDRATED. PSYCHAPPROPRIATE MOOD AND AFFECT . LUNGS:CLEAR TO AUSCULTATION BILATERALLY, NO WHEEZES, RHONCHI, RALES. HEART:NO MURMURS, REGULAR RATE AND RHYTHM. 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 ANALGESIC - Z79.891 TREATMENT OTHER CHRONIC PAIN REFILL HYDROCODONE-ACETAMINOPHEN TABLET, 5-325 MG, 1 TABLET NEEDED, ORALLY, TWICE DAILY NEEDED, 30 DAYS, 60 REFILL FIORICET TABLET, 50-325-40 MG, 1 TABLET NEEDED, ORALLY, EVERY 4 HRS PRN HEADACHE, 30 DAYS, 180 LAB: ORAL FLUID TEST GROUP BATSHEVA PERAZA 01/17/2021 12:02:51 PM > LAST DOSE: FIORECET 12/05/20; HYDROCODONE 01/05/21 PAIN PROCEDURE LOGDATE OF WHWHOMNNW68/11/2021PROCEDURE:BOTOX INJECTIONS TO HEAD, NECK AND SHOULDER AREASAMOUNT OF PRE SEDATEPRESEDATE: NORCO 5MG/325; VALIUM 10MGRESULT:SUCCESSFUL NOTED DECREASED MIGRAINES NOTES: 30-YEAR-OLD FEMALE IN FOR POST BOTOX INJECTION FOLLOW-UP. GIVEN PRESENTING SYMPTOMS RECOMMEND BOTOX INJECTION IN 3 MONTHS. PAIN CLINIC WILL BE TAKING OVER PATIENT'S PAIN MEDICATIONS FROM ANOTHER PROVIDER SUCH PATIENT WILL HAVE U TOX PERFORMED TODAY AND SIGN A NARCOTIC AGREEMENT. PATIENT HAS EXPRESSED UNDERSTANDING OF AND WAS IN AGREEMENT WITH TREATMENT PLAN. GIVEN TIME TO ASK QUESTIONS AND EXPRESS CONCERNS. , ISTOP REGISTRY REVIEWED AND DEMONSTRATES COMPLLIANCE. (REF # [id number] ). PROCEDURE CODES FA211 ESTABILISHED PATIENT [facility] FACILITY CHARGE DISPOSITION & COMMUNICATION FOLLOW UP 3 MONTHS (REASON: BOTOX INJECTION FOLLOW-UP) ELECTRONICALLY SIGNED BY PAU AGUILAR ON 01/18/2021 AT 12:55 PM EST DISCLAIMER : THIS IS A VISIT SUMMARY EXTRACTED FROM THE [employer] CHART. IT IS NOT A COPY OF THE [employer] PROGRESS NOTE. KENNY
== END ==
LOC: M PAIN 11:00
PROVIDERS: ATTEND Family Medicine
DX: G43.709 Chronic migraine without aura, not intractable, without status migrainosus (principal); G89.29 Other chronic pain; G40.909 Epilepsy, unspecified, not intractable, without status epilepticus; Z86.718 Personal history of other venous thrombosis and embolism; Z87.891 Personal history of nicotine dependence; Z88.8 Allergy status to other drugs, medicaments and biological substances; Z91.040 Latex allergy status; E66.01 Morbid (severe) obesity due to excess calories; Z68.42 Body mass index [BMI] 45.0-49.9, adult; Z79.01 Long term (current) use of anticoagulants; Z79.899 Other long term (current) drug therapy

== ENCOUNTER → 2021-01-19 | Outpatient (CLI) | payer OTHER ==
--- NOTE | 2021-01-22 04:38 | ECWPNPC ---
PATIENT NAME: WINSOME RODRIGUEZ : 1990 GENDER: FEMALE VISIT DATE: 01/19/2021 DISCHARGE DATE: 01/19/21 1110 VISIT LOCKED DATE TIME: PHYSICIAN: ISATU AZUL RESOURCE: ISATU AZUL REASON FOR APPOINTMENT 1. POST BILATERAL LOW BACK TRIGGER POINT INJECTIONS HISTORY OF PRESENT ILLNESS GENERAL: - 30-YEAR-OLD FEMALE IN FOR POST TRIGGER POINT INJECTION FOLLOW-UP. SHE RATES HER PAIN CURRENTLY AT AN 8 OUT OF 10 AND DESCRIBES IT CONTINUOUS AND SHARP. PATIENT FEELS THE TRIGGER POINT INJECTIONS WERE UNSUCCESSFUL. SHE FEELS HER MEDICATIONS ARE HELPFUL AND DENIES MED SIDE EFFECTS AT THIS TIME. FALL RISK SCREENING: SCREENING : NO FALLS REPORTED IN THE LAST YEAR. PAIN SCREENING: PATIENT HAS A COMPLAINT OF ACUTE OR CHRONIC PAIN :YES LOCATION OF PAIN:LOW BACK INTENSITY OF PAIN (SCALE OF 1 TO 10):8 WHAT DOES YOUR PAIN FEEL LIKE:CONTINOUS, SHARP DURATION:CONTINOUS, CONSTANT, AWAKENS FROM SLEEP PAIN IS INCREASED BY:ACTIVITIES, PROLONGED STANDING PAIN IS DECREASED BY:USE OF PAIN MEDICATIONS, OTHERS ICE AND HEAT NURSING NOTE: -. PAIN CENTER INTAKE QUESTIONS: DO YOU HAVE A HISTORY OF MRSA? :NO DO YOU TAKE A BLOOD THINNERS? :YES ELOQUIST DO YOU HAVE ANY BLEEDING DISORDERS? :NO ANY NEW NUMBNESS OR WEAKNESS IN YOUR LEGS OR ARMS? :NO ANY PACEMAKER,DEFIBRILLATOR, OR DORSAL COLUMN STIMULATOR? :NO DO YOU HAVE ANY RASHES OR OPEN SORES? :NO ARE YOU ALLERGIC TO IV DYE? :NO ARE YOU DIABETIC? :NO ANY NEW PROBLEMS WITH YOUR MEDICATIONS? :YES UNABLE TO FILL FIORECET. HAVE YOU RECEIVED A VACCINE IN THE PAST 30 DAYS? :NO DO YOU PLAN TO RECEIVE A VACCINE IN THE NEXT 21 DAYS? :NO DO YOU NEED ANY PRESCRIPTION? :YES FIORECET DO YOU TAKE ANY IMMUNOSUPPRESSIVE MEDICATIONS? :NO DO YOU HAVE ANY KIDNEY OR LIVER DISEASE? :NO IS THERE A CHANCE YOU COULD BE ? :NO ARE YOU BREAST FEEDING? :NO CURRENT MEDICATIONS TAKING KEPPRA 750 MG TABLET 2 TABS ORALLY BID, NOTES: LAST DOSE 12/21/2020 TAKING SEROQUEL 50 MG TABLET 1 CAP ORALLY MORNING AND LUNCH TAKING SEROQUEL 300 MG TABLET 1 TABLET AT BEDTIME ORALLY ONCE A DAY TAKING HYDROCHLOROTHIAZIDE 25 MG TABLET 1 TABLET IN THE MORNING ORALLY ONCE A DAY TAKING ALBUTEROL SULFATE HFA 108 (90 BASE) MCG/ACT AEROSOL SOLUTION 1 PUFF NEEDED INHALATION EVERY 4 HRS TAKING ALBUTEROL ALBUTEROL NEBULIZERS PRN TAKING NIFEDIPINE ER 60 MG TABLET EXTENDED RELEASE 24 HOUR 1 TABLET ON AN EMPTY STOMACH ORALLY ONCE A DAY TAKING PROZAC 40 MG CAPSULE 2 CAPS ORALLY DAILY TAKING BOTOX 100 UNIT SOLUTION RECONSTITUTED FOR IM INJECTION AT THE HEAD, NECK AND SHOULDER MUSCLES ICD G43.709 BOTOX APPT ON 11/22/2020 AT 2PM. TAKING DUONEB 0.5-2.5 (3) MG/3ML SOLUTION 3 ML NEEDED INHALATION EVERY 6 HRS TAKING ELIQUIS TABLET 5MG ORAL BID TAKING HYDROCODONE-ACETAMINOPHEN 5-325 MG TABLET 1 TABLET NEEDED ORALLY TWICE DAILY NEEDED TAKING FIORICET 50-325-40 MG TABLET 1 TABLET NEEDED ORALLY EVERY 4 HRS PRN HEADACHE TAKING LYRICA 75 MG CAPSULE 1 CAPSULE ORALLY ONCE A DAY UNKNOWN PREDNISOLONE _ TABLET 1 TABLET IN THE MORNING WITH FOOD OR MILK ORALLY PATIENT STATES SHE IS CURRENTLY ON A TAPERING DOSE OF PREDNISONE UNKNOWN FIORINAL 50-325-40 MG CAPSULE 1 CAPSULE NEEDED ORALLY THREE TIMES DAILY NEEDED, NOTES: NONE IN 1 WEEK MEDICATION LIST REVIEWED AND RECONCILED WITH THE PATIENT PAST MEDICAL HISTORY LUPUS MIGRAINES HYPERTENSION EPILEPSY FRACTURED RIGHT FOOT CHEMICAL BURN RIGHT LEG 2 BULGING DISCS IN BACK MOBID OBESITY TUBAL LIGATION 11/25/2020 DVT-09/2020 PULMONARY HYPERTENSION ALLERGIES LATEX EXAM GLOVES: HIVES - ALLERGY PHENERGAN: NAUSEA/VOMITING - SIDE EFFECTS PEPCID: NAUSEA/VOMITING - SIDE EFFECTS PLAQUENIL: ANAPHYLAXIS - ALLERGY SOCIAL HISTORY GENERAL: TOBACCO USE ARE YOU A:FORMER SMOKER HOW LONG HAS IT BEEN SINCE YOU LAST SMOKED?> 10 YEARS VAPORNO E-CIGARETTENO LATEX QUESTIONNAIRE LATEX ALLERGY : HAVE YOU EVER DEVELOPED ANY TYPE OF REACTION AFTER HANDLING LATEX PRODUCTS SUCH RUBBER GLOVES, CONDOMS, DIAPHRAGMS, BALLOONS, SOCKS, OR UNDERWEAR?YES - PLEASE INDICATE :OTHER (DOCUMENT IN NOTES) TUBING IN THR OR LATEX ALLERGY : HAVE YOU EVER DEVELOPED ANY TYPE OF REACTION DURING OR AFTER DENTAL APPOINTMENT, VAGINAL/RECTAL EXAMINATION, SURGICAL PROCEDURE, OR ANY OTHER EXPOSURE?YES - PLEASE INDICATE :VAGINAL EXAM VAGINAL SWELLING AFTER EXAM. HIVES ALSO. LATEX RISK : HAVE YOU EVER HAD ANY DIFFICULTY BREATHING OR HIVES AFTER EATING OR HANDLING ANY FRUITS, OR VEGETABLES; SUCH KIWI, BANANAS, STONE FRUITS, OR CHESTNUTSYES NOTED THROAT SWELLING AFTER EATING A BANANA - PLEASE INDICATE : BANANAS LATEX RISK : DO YOU HAVE A PREVIOUS PERSONAL HISTORY OF MORE THAN NINE SURGERIES, SPINA BIFIDA, OR REPEATED CATHERIZATIONS? YES - PLEASE INDICATE : > 9 SURGERIES LATEX RISK : ARE YOU FREQUENTLY EXPOSED TO LATEX PRODUCTS IN YOUR OCCUPATION?NO DATE ASKED : 01/19/2021 ALCOHOL USE: NO. ALCOHOL SCREENING DID YOU HAVE A DRINK CONTAINING ALCOHOL IN THE PAST YEAR?NO POINTS0 INTERPRETATIONNEGATIVE RECREATIONAL DRUG USE DRUG USE?NO PATIENT DENIES ABUSE OR MISSUSED OF ANY MEDICATION DENIES PATIENT DENIES USE OF ANY ILLEGAL SUBSTANCE INCLUDING MARIJUANA OR COCAINE DENIES CAFFEINE CAFFEINE USE?YES HOW OFTEN AND HOW MUCH? STATES YES BECAUSE CAFFEINE DOES HELP WITH HEADACHES PENTECOSTAL PENTECOSTAL NO HOAHAOISM BELIEFS THAT WOULD IMPACT HEALTH CARE. LANGUAGE LANGUAGES SPOKEN:GREENLAND[place] EDUCATION LEVEL OF EDUCATION:COLLEGE LEARNING BARRIERS / SPECIAL NEEDS CHANGE FROM LAST VISIT?YES BARRIERS TO LEARNING?NO HEARING IMPAIRED?NO VISION IMPAIRED?YES :CORRECTIVE LENSES COGNITIVELY IMPAIRED?NO PATIENT REQUESTS PARTNER PRESENT AT VISITS DUE TO "LUPUS FOG" WHICH ALTERS HER MENTATION. READINESS TO LEARN?YES LEARNING PREFERENCES?YES :HANDOUTS, DEMONSTRATION/VERBAL INSTRUCTION LEARNING CAPABILITIES PRESENT?YES EMOTIONAL BARRIERS?NO SPECIAL DEVICES?YES :WALKER, WHEELCHAIR DUE TO FRACTURED RIGHT FOOT BRAND AMBASSADORS PROMOTIONAL SALES NEEDED?NO DOMESTIC VIOLENCE DO YOU FEEL SAFE IN YOUR ENVIRONMENT?YES OCCUPATION: UNEMPLOYED. DIET: REGULAR. EXERCISE: NO REGULAR EXERCISE. MARITAL STATUS: SINGLE. OTHERS AT HOME: CHILDREN, SO. - PFS REFERRAL NEEDED?NO CLERGY REFERRAL NEEDED?NO PUBLIC HEALTH REFERRAL NEEDED?NO HAS THE PATIENT BEEN EDUCATED REGARDING HIS/HER PLAN OF CARE?YES HAS THE PATIENT BEEN EDUCATED REGARDING PAIN, THE RISK FOR PAIN, THE IMPORTANCE OF EFFECTIVE PAIN MANAGEMENT, AND THE PAIN ASSESSMENT PROCESS?YES ADVANCE DIRECTIVE ADVANCE DIRECTIVE DISCUSSED WITH PATIENT:YES 12/20/20 PATIENT STATES SHE HAS NO ADVANCED DIRECTIVES AND DECLINES THE INFORMATION AT THIS TIME REVIEW OF SYSTEMS CONSTITUTIONAL: ANY RECENT FEVER NO . CHILLS NO . WEIGHT CHANGE OF UNKNOWN REASONS NO . GASTROENTEROLOGY: NEW UNEXPLAINABLE CHANGES IN BOWEL CONTROL NO . CONSTIPATION NO . GENITOURINARY: ANY NEW CHANGE IN BLADDER CONTROL? NO . NEUROLOGY: NEW ONSET DIZZINESS OR NEUROLOGICAL CHANGES NOT MENTIONED NO . NEW NUMBNESS OR PAIN PATTERNS NOT MENTIONED AND PERTINENT TO TODAY'S VISIT NO . CARDIOLOGY: NEW CHEST PRESSURE NO . PATIENT DENIES NO . RESPIRATORY: UNEXPLAINABLE COUGH NO . NEW SHORTNESS OF BREATH NO . VITAL SIGNS WT 269 LBS, HT 64 IN, BMI 46.17 INDEX, BP 163/91 MM HG, REPEAT BP 142/100 MANUAL, HR 89 /MIN, RR 18 /MIN, TEMP 98 F, BLOOD GLUCOSE LEVEL 96%, SAFE IN ENV? (Y/N) YES, REVIEWED BY: RAJIV PERAZA MA. EXAMINATION GENERAL EXAMINATION: GENERALNO ACUTE DISTRESS, WELL NOURISHED AND HYDRATED. PSYCHAPPROPRIATE MOOD AND AFFECT . LUNGS:CLEAR TO AUSCULTATION BILATERALLY, NO WHEEZES, RHONCHI, RALES. HEART:NO MURMURS, REGULAR RATE AND RHYTHM. 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 WITHOUT [id number],FLORIN 01/20/2021 12:00:42 PM > MRI LUMBAR SPINE W/O CONTRAST HAS BEEN APPROVED AUTH # [id number] VALID FROM 01/20/21-04/20/21 PAIN PROCEDURE LOGDATE OF [id number]/02/2021PROCEDURE:BILATERAL TRIGGER POINT INJECTIONS LOW BACKAMOUNT OF PRE SEDATEVALIUM 10MG; NORCO 5MG/325RESULT:UNSUCCESFULL NOTES: 30-YEAR-OLD FEMALE IN FOR POSTERIOR POINT ACTION FOLLOW-UP. GIVEN PRESENTING SYMPTOMS RECOMMENDED MRI OF THE LUMBAR SPINE WITH FOLLOW-UP POST IMAGING. PATIENT HAS EXPRESSED UNDERSTANDING OF AND WAS IN AGREEMENT WITH TREATMENT PLAN. GIVEN TIME TO ASK QUESTIONS AND EXPRESS CONCERNS. , ISTOP REGISTRY REVIEWED AND DEMONSTRATES COMPLLIANCE. (REF # [id number] ) BRINGS IN MEDICATIONS WHICH IS APPROPRIATE FOR WHAT WAS DISPENSED. RECENT URINE TOXICOLOGY REVIEWED. NO UNAUTHORIZED MEDICATIONS. NO ILLICIT SUBSTANCES AND PRESCRIBED MEDICATIONS WERE PRESENT. BACK PAIN OF LUMBAR REGION WITH SCIATICA [facility] MRI SPINE, L.S. WITHOUT [id number],FLORIN 01/20/2021 12:00:42 PM > MRI LUMBAR SPINE W/O CONTRAST HAS BEEN APPROVED AUTH # [id number] VALID FROM 01/20/21-04/20/21 PROCEDURE CODES FA211 ESTABILISHED PATIENT [facility] FACILITY CHARGE DISPOSITION & COMMUNICATION FOLLOW UP AFTER IMAGING (REASON: MRI LS SPINE W/O CONTRAST ) ELECTRONICALLY SIGNED BY PAU AGUILAR ON 01/21/2021 AT 08:10 AM EST DISCLAIMER : THIS IS A VISIT SUMMARY EXTRACTED FROM THE [employer] CHART. IT IS NOT A COPY OF THE [employer] PROGRESS NOTE. KENNY
== END ==
LOC: M PAIN 10:45
PROVIDERS: ATTEND Family Medicine
DX: M54.5 Low back pain (principal); G89.29 Other chronic pain; G43.909 Migraine, unspecified, not intractable, without status migrainosus; G40.909 Epilepsy, unspecified, not intractable, without status epilepticus; Z86.718 Personal history of other venous thrombosis and embolism; Z87.891 Personal history of nicotine dependence; Z88.8 Allergy status to other drugs, medicaments and biological substances; Z91.040 Latex allergy status; E66.01 Morbid (severe) obesity due to excess calories; Z68.42 Body mass index [BMI] 45.0-49.9, adult; Z79.01 Long term (current) use of anticoagulants; Z79.899 Other long term (current) drug therapy

== ENCOUNTER → 2021-01-26 | Outpatient (CLI) | payer OTHER | LOC: M LABSMTC 11:54 | PROVIDERS: ATTEND Anesthesiology | DX: Z01.812 Encounter for preprocedural laboratory examination (principal); Z20.822 Contact with and (suspected) exposure to COVID-19 ==

== ENCOUNTER → 2021-02-16 | Outpatient (CLI) | payer OTHER ==
--- NOTE | 2021-02-16 07:53 | PFTRPT ---
Height: 64.00 Inches Weight: 266.00 Lbs BSA: 2.21 Diagnosis: R76.8 DATE: 02/16/2021 ORDERING PHYSICIAN: Sid De Souza MD Study has excellent technical quality. Forced vital capacity is normal. FEV1 is in proportion. Obstructive index is therefore normal. Expiratory limit of the flow-volume loop is normal. No significant bronchodilator response is identified. Total lung capacity is normal. Residual volume is in proportion. Diffusing capacity is normal. No hemoglobin available for correction. Airway resistance and conductance are normal. IMPRESSION: Normal study. MTDD
== END ==
LOC: M CARPUL 07:25
PROVIDERS: ATTEND Internal Medicine
DX: R76.8 Other specified abnormal immunological findings in serum (principal)

== ENCOUNTER → 2021-02-16 | Outpatient (CLI) | payer OTHER | LOC: M LABSMTC 12:03 | PROVIDERS: ATTEND Anesthesiology | DX: R76.8 Other specified abnormal immunological findings in serum (principal) ==

== ENCOUNTER 2021-02-20 08:43 | Emergency (ER) | payer OTHER ==
[~2021-02-20] VITALS: Ht 162.6 cm; Wt 120.4 kg
[~2021-02-20 08:43] MED LIST changes: -BENL200I; +BENL200I SC
[2021-02-20] MEDS ORDERED: HYDR-3713 PO (08:52)
--- NOTE | 2021-02-20 09:41 | REP ---
INDICATION: trauma/recent Fx COMPARISON: 05/03/2020. TECHNIQUE: Four views right ankle. FINDINGS: There is no evidence of acute fracture, dislocation, or intrinsic bone disease.The ankle mortise is anatomic. IMPRESSION: No fracture or dislocation. <Electronically signed by Isreal Sinha > 02/20/21 0937
[2021-02-20] MEDS ORDERED: ONDANSETRON 4MG/2ML VIAL IV ONE (11:15)
[2021-02-20] MEDS ORDERED: ACETAMINOPHEN 325 MG TAB PO ONE (11:15)
[2021-02-20] MEDS ORDERED: NS 1,000 ML IV ONE (11:15)
[2021-02-20 11:45] LABS: BASO # 0.1 10^3/uL (0.0-0.2); BASO % 0.4 % (0.0-1.0); EOS # 0.2 10^3/uL (0.0-0.5); EOS % 1.7 % (0.0-3.0); HEMATOCRIT 37.4 % (36.0-47.0); HEMOGLOBIN 11.4 g/dl (12.0-15.5); LYMPH # 3.6 10^3/uL (1.5-5.0); LYMPH % 28.5 % (24.0-44.0); MEAN CORPUSCULAR HEMOGLOBIN 24.8 pg (27.0-33.0); MEAN CORPUSCULAR HGB CONC 30.5 g/dl (32.0-36.5); MEAN CORPUSCULAR VOLUME 81.3 fl (80.0-96.0); MONO # 0.7 10^3/uL (0.0-0.8); MONO % 5.6 % (2.0-8.0); NEUTROPHILS # 8.1 10^3/uL (1.5-8.5); NEUTROPHILS % 63.4 % (36.0-66.0); PLATELET COUNT, AUTOMATED 303 10^3/uL (150-450); WHITE BLOOD COUNT 12.7 10^3/uL (4.0-10.0)
[2021-02-20 12:03] LABS: ERYTHROCYTE SEDIMENTATION RATE 36 mm/hr (0-20)
[2021-02-20] MEDS ORDERED: NEOSPORIN OINT 0.9 GM PKT TOP ONE (12:05)
--- NOTE | 2021-02-20 12:06 | REP ---
INDICATION: trauma COMPARISON: None. TECHNIQUE: Four views right 1st toe. FINDINGS: There is no evidence of acute fracture, dislocation, or intrinsic bone disease. IMPRESSION: No fracture or dislocation. <Electronically signed by Isreal Sinha > 02/20/21 1208
[2021-02-20 12:11] LABS: ALBUMIN 3.4 GM/DL (3.2-5.2); ALT/SGPT 45 U/L (12-78); BILIRUBIN,DIRECT < 0.1 MG/DL (0.0-0.2); BILIRUBIN,TOTAL < 0.1 MG/DL (0.2-1.0); C REACTIVE PROTEIN QUANTITATIV 2.71 MG/DL (0.00-0.30); TOTAL PROTEIN 6.6 GM/DL (6.4-8.2)
[2021-02-20] MEDS ORDERED: PERCOCET 5MG/325MG TAB PO ONE (16:30)
[2021-02-20] MEDS ORDERED: NS 500 ML IV ONE (16:30)
[2021-02-20] MEDS ORDERED: FIORICET TAB PO ONE ×2 (18:00→18:25)
[2021-02-20 19:23] VITALS: BP 165/92
== END 2021-02-20 19:30 | disposition home or self-care (01) ==
LOC: M ED 08:43
DX: S90.411A Abrasion, right great toe, initial encounter (principal); W01.0XXA Fall on same level from slipping, tripping and stumbling without subsequent striking against object, initial encounter; Y92.018 Other place in single-family (private) house as the place of occurrence of the external cause; M25.571 Pain in right ankle and joints of right foot; I10 Essential (primary) hypertension; D72.829 Elevated white blood cell count, unspecified; R11.2 Nausea with vomiting, unspecified; G40.909 Epilepsy, unspecified, not intractable, without status epilepticus; F43.10 Post-traumatic stress disorder, unspecified; M32.9 Systemic lupus erythematosus, unspecified; M79.7 Fibromyalgia; E03.9 Hypothyroidism, unspecified; Z88.8 Allergy status to other drugs, medicaments and biological substances; Z91.018 Allergy to other foods; Z91.040 Latex allergy status; Z79.899 Other long term (current) drug therapy; Z79.01 Long term (current) use of anticoagulants
CPT/HCPCS: 36415; 73610; 73660; 80047; 80076; 85025; 85652; 86140; 96361; 96374; 99284; J2405

== ENCOUNTER → 2021-02-21 | Outpatient (CLI) | payer OTHER ==
[~2021-02-21] MED LIST changes: +BOTOX THERAPEUTIC 100 UNIT VIAL (J0585 PER 1 UNIT) IM ONE; +DOCU100C16 PO; +FLUO40CA PO; +HYDR-3490 PO; +HYDR-3713 PO; +HYDR25TA PO; +NORCO, ANEXSIA 5/325MG TABLET (HYDROcodone/ACETAMINOPHEN) As Ordered ONE; +ONDANSETRON 4 MG ORAL DISINTEGRATING TAB As Ordered ONE; +ZOLP10TA2 PO; +diazePAM 5MG TABLET As Ordered ONE
--- NOTE | 2021-02-24 00:41 | ECWPNPC ---
PATIENT NAME: WINSOME RODRIGUEZ : 1990 GENDER: FEMALE VISIT DATE: 02/21/2021 DISCHARGE DATE: 02/21/21 1441 VISIT LOCKED DATE TIME: PHYSICIAN: SAMIR MUNIZ MD RESOURCE: SAMIR MUNIZ MD REASON FOR APPOINTMENT 1. BOTOX INJECTIONS TO HEAD, NECK AND SHOULDER AREAS HISTORY OF PRESENT ILLNESS GENERAL: -. FALL RISK SCREENING: SCREENING : 2 OR MORE FALLS REPORTED IN THE LAST YEAR WITH INJURY. PAIN SCREENING: PATIENT HAS A COMPLAINT OF ACUTE OR CHRONIC PAIN :YES LOCATION OF PAIN: ENTIRE BODY INTENSITY OF PAIN (SCALE OF 1 TO 10): 8-9/10 WHAT DOES YOUR PAIN FEEL LIKE:ACHING DURATION:CONSTANT PAIN IS INCREASED BY: BRIGHT LIGHTS, NOISE PAIN IS DECREASED BY:USE OF PAIN MEDICATIONS DARKNESS, LYING IN A QUIET ROOM NURSING NOTE: -. PAIN CENTER INTAKE QUESTIONS: DO YOU HAVE A HISTORY OF MRSA? :NO DO YOU TAKE A BLOOD THINNERS? :YES ELIQUIS LAST TAKEN 02/13/21 DO YOU HAVE ANY BLEEDING DISORDERS? :NO ANY NEW NUMBNESS OR WEAKNESS IN YOUR LEGS OR ARMS? :NO ANY PACEMAKER,DEFIBRILLATOR, OR DORSAL COLUMN STIMULATOR? :NO DO YOU HAVE ANY RASHES OR OPEN SORES? :NO ARE YOU ALLERGIC TO IV DYE? :NO ARE YOU DIABETIC? :NO ANY NEW PROBLEMS WITH YOUR MEDICATIONS? :NO HAVE YOU RECEIVED A VACCINE IN THE PAST 30 DAYS? :NO DO YOU PLAN TO RECEIVE A VACCINE IN THE NEXT 21 DAYS? :NO DO YOU TAKE ANY IMMUNOSUPPRESSIVE MEDICATIONS? :YES BENLYSTA ANY HISTORY OF SEIZURES? :YES LAST SEIZURE 01/2020 ANY HISTORY OF CARDIAC ISSUES OR EVENTS? :YES HISTORY OF PERICARDIAL EFFUSION DO YOU HAVE ANY KIDNEY OR LIVER DISEASE? :NO DO YOU HAVE SLEEP APNEA? :YES WAITING FOR STUDY DO YOU WEAR A CPAP?NO ANY RECENT HEAD INJURY? :NO DO YOU HAVE ANY NEW INFECTIONS? :NO IS THERE A CHANCE YOU COULD BE ? :NO ARE YOU BREAST FEEDING? :YES PER DR. MUNIZ PATIENT IS TO DISCARD BREAST MILK FOR THE NEXT 2 MONTHS. PATIENT IN AGREEMENT WITH THIS PLAN. WHEN DID YOU LAST EAT? : 0430 WHEN DID YOU LAST DRINK? : 0430 WHAT DID YOU LAST DRINK? : CLEAR LIQUID NAME OF PERSON DRIVING YOU HOME? : -SUMAN (PARTNER) DO YOU HAVE ANY OTHER QUESTIONS OR CONCERNS? : -NO CURRENT MEDICATIONS TAKING KEPPRA 750 MG TABLET 2 TABS ORALLY BID, NOTES: 02/21/21 0430 TAKING SEROQUEL 50 MG TABLET 1 CAP ORALLY MORNING AND LUNCH TAKING SEROQUEL 300 MG TABLET 1 TABLET AT BEDTIME ORALLY ONCE A DAY TAKING HYDROCHLOROTHIAZIDE 25 MG TABLET 1 TABLET IN THE MORNING ORALLY ONCE A DAY TAKING ALBUTEROL SULFATE HFA 108 (90 BASE) MCG/ACT AEROSOL SOLUTION 1 PUFF NEEDED INHALATION EVERY 4 HRS TAKING ALBUTEROL ALBUTEROL NEBULIZERS PRN TAKING NIFEDIPINE ER 60 MG TABLET EXTENDED RELEASE 24 HOUR 1 TABLET ON AN EMPTY STOMACH ORALLY ONCE A DAY TAKING PROZAC 40 MG CAPSULE 2 CAPS ORALLY DAILY TAKING DUONEB 0.5-2.5 (3) MG/3ML SOLUTION 3 ML NEEDED INHALATION EVERY 6 HRS TAKING ELIQUIS TABLET 5MG ORAL BID, NOTES: 02/13/211999 TAKING LYRICA 75 MG CAPSULE 1 CAPSULE ORALLY ONCE A DAY, NOTES: 02/09/21 TAKING BOTOX 100 UNIT SOLUTION RECONSTITUTED FOR IM INJECTION AT THE HEAD, NECK AND SHOULDER MUSCLES ICD G43.709 BOTOX ON 02/21/21 AT 1:00 TAKING HYDROCODONE-ACETAMINOPHEN 5-325 MG TABLET 1 TABLET NEEDED ORALLY TWICE DAILY NEEDED, NOTES: 02/20/21 AFTERNOON TAKING FIORICET 50-325-40 MG TABLET 1 TABLET NEEDED ORALLY EVERY 4 HRS PRN HEADACHE, NOTES: 02/18/21 TAKING MAY HAVE BENLYSTA 200 MG SUBCUTANEOUS WEEKLY, NOTES: EVERYDAY SUNDAY TAKING AMBIEN 10 MG TABLET 1 TABLET AT BEDTIME NEEDED ORALLY ONCE A DAY, NOTES: ONE WEEK AGO TAKING KLONOPIN 1 MG TABLET 1 TABLET ORALLY 3 TIMES A DAY, NOTES: 02/20/212099 TAKING EPIPEN NOT-TAKING BOTOX 100 UNIT SOLUTION RECONSTITUTED FOR IM INJECTION AT THE HEAD, NECK AND SHOULDER MUSCLES ICD G43.709 BOTOX APPT ON 11/22/2020 AT 2PM. UNKNOWN PREDNISOLONE _ TABLET 1 TABLET IN THE MORNING WITH FOOD OR MILK ORALLY PATIENT STATES SHE IS CURRENTLY ON A TAPERING DOSE OF PREDNISONE UNKNOWN FIORINAL 50-325-40 MG CAPSULE 1 CAPSULE NEEDED ORALLY THREE TIMES DAILY NEEDED, NOTES: NONE IN 1 WEEK MEDICATION LIST REVIEWED AND RECONCILED WITH THE PATIENT PAST MEDICAL HISTORY LUPUS MIGRAINES HYPERTENSION EPILEPSY FRACTURED RIGHT FOOT CHEMICAL BURN RIGHT LEG 2 BULGING DISCS IN BACK MOBID OBESITY TUBAL LIGATION 11/25/2020 DVT-09/2020 PULMONARY HYPERTENSION ALLERGIES LATEX EXAM GLOVES: HIVES - ALLERGY PHENERGAN: NAUSEA/VOMITING - SIDE EFFECTS PEPCID: NAUSEA/VOMITING - SIDE EFFECTS PLAQUENIL: ANAPHYLAXIS - ALLERGY SURGICAL HISTORY GALL BLADDER REMOVAL APPENDECTOMY TONSILLECTOMY D&C X 2 C-SECTIONS X5 TUBAL LIGATION 11/25/2020 SOCIAL HISTORY GENERAL: TOBACCO USE ARE YOU A:FORMER SMOKER HOW LONG HAS IT BEEN SINCE YOU LAST SMOKED?> 10 YEARS VAPORNO E-CIGARETTENO LATEX QUESTIONNAIRE LATEX ALLERGY : HAVE YOU EVER DEVELOPED ANY TYPE OF REACTION AFTER HANDLING LATEX PRODUCTS SUCH RUBBER GLOVES, CONDOMS, DIAPHRAGMS, BALLOONS, SOCKS, OR UNDERWEAR?YES - PLEASE INDICATE :OTHER (DOCUMENT IN NOTES) TUBING IN THR OR LATEX ALLERGY : HAVE YOU EVER DEVELOPED ANY TYPE OF REACTION DURING OR AFTER DENTAL APPOINTMENT, VAGINAL/RECTAL EXAMINATION, SURGICAL PROCEDURE, OR ANY OTHER EXPOSURE?YES - PLEASE INDICATE :VAGINAL EXAM VAGINAL SWELLING AFTER EXAM. HIVES ALSO. LATEX RISK : HAVE YOU EVER HAD ANY DIFFICULTY BREATHING OR HIVES AFTER EATING OR HANDLING ANY FRUITS, OR VEGETABLES; SUCH KIWI, BANANAS, STONE FRUITS, OR CHESTNUTSYES NOTED THROAT SWELLING AFTER EATING A BANANA - PLEASE INDICATE : BANANAS LATEX RISK : DO YOU HAVE A PREVIOUS PERSONAL HISTORY OF MORE THAN NINE SURGERIES, SPINA BIFIDA, OR REPEATED CATHERIZATIONS? YES - PLEASE INDICATE : > 9 SURGERIES LATEX RISK : ARE YOU FREQUENTLY EXPOSED TO LATEX PRODUCTS IN YOUR OCCUPATION?NO DATE ASKED : 02/21/2021 ALCOHOL USE: NO. ALCOHOL SCREENING DID YOU HAVE A DRINK CONTAINING ALCOHOL IN THE PAST YEAR?NO POINTS0 INTERPRETATIONNEGATIVE RECREATIONAL DRUG USE DRUG USE?NO PATIENT DENIES ABUSE OR MISSUSED OF ANY MEDICATION DENIES PATIENT DENIES USE OF ANY ILLEGAL SUBSTANCE INCLUDING MARIJUANA OR COCAINE DENIES CAFFEINE CAFFEINE USE?YES HOW OFTEN AND HOW MUCH? STATES YES BECAUSE CAFFEINE DOES HELP WITH HEADACHES MANDAEISM MANDAEISM NO EVANGELICAL BELIEFS THAT WOULD IMPACT HEALTH CARE. LANGUAGE LANGUAGES SPOKEN:BANGLADESHI EDUCATION LEVEL OF EDUCATION:COLLEGE LEARNING BARRIERS / SPECIAL NEEDS CHANGE FROM LAST VISIT?YES BARRIERS TO LEARNING?NO HEARING IMPAIRED?NO VISION IMPAIRED?YES :CORRECTIVE LENSES COGNITIVELY IMPAIRED?NO PATIENT REQUESTS PARTNER PRESENT AT VISITS DUE TO "LUPUS FOG" WHICH ALTERS HER MENTATION. READINESS TO LEARN?YES LEARNING PREFERENCES?YES :HANDOUTS, DEMONSTRATION/VERBAL INSTRUCTION LEARNING CAPABILITIES PRESENT?YES EMOTIONAL BARRIERS?NO SPECIAL DEVICES?YES :WALKER, WHEELCHAIR DUE TO FRACTURED RIGHT FOOT HAZARDOUS SUBSTANCES ENGINEER NEEDED?NO DOMESTIC VIOLENCE DO YOU FEEL SAFE IN YOUR ENVIRONMENT?YES OCCUPATION: UNEMPLOYED. DIET: REGULAR. EXERCISE: NO REGULAR EXERCISE. MARITAL STATUS: SINGLE. OTHERS AT HOME: CHILDREN, SO. - PFS REFERRAL NEEDED?NO CLERGY REFERRAL NEEDED?NO PUBLIC HEALTH REFERRAL NEEDED?NO HAS THE PATIENT BEEN EDUCATED REGARDING HIS/HER PLAN OF CARE?YES HAS THE PATIENT BEEN EDUCATED REGARDING PAIN, THE RISK FOR PAIN, THE IMPORTANCE OF EFFECTIVE PAIN MANAGEMENT, AND THE PAIN ASSESSMENT PROCESS?YES ADVANCE DIRECTIVE ADVANCE DIRECTIVE DISCUSSED WITH PATIENT:YES 12/20/20 PATIENT STATES SHE HAS NO ADVANCED DIRECTIVES AND DECLINES THE INFORMATION AT THIS TIME HOSPITALIZATION/MAJOR DIAGNOSTIC PROCEDURE CHILDBIRTH SURGERIES VITAL SIGNS WT 266 LBS, HT 64 IN, BMI 45.65 INDEX, BP 189/88 MM HG, REPEAT BP 138/90 MANUAL, HR 67 /MIN, RR 18 /MIN, TEMP 98.2 F, OXYGEN SAT % 100%, SAFE IN ENV? (Y/N) YES, NA INITIALS Obdulia AGRAWAL RN, REVIEWED BY: APPATIENT'S INITIAL BLOOD PERSSURE WAS ELEVATED. DISCUSSED WITH PATIENT WHO STATED SHE JUST HAD AN ARGUMENT WITH HER SIGNIFICANT OTHER. PATIENT GIVEN TIME TO RELAX AND MANUAL BP OBTAINED. SEE VITAL SIGNS. Davie GREENFIELD RN. EXAMINATION GENERAL: A HISTORY AND PHYSICAL EXAM ON THE PATIENT WAS DONE ON 01/17/2021 (DATE OF ORIGINAL ASSESSMENT) IN PREPARATION OF SURGERY/PROCEDURE. I HAVE NOW REASSESSED THIS PATIENT'S HEALTH STATUS AND PERFORMED AN UPDATED EXAM TODAY. ALL CHANGES IN THE PATIENT'S HISTORY, PHYSICAL EXAM, PRE-EXISTING CONDITONS, AND INDICATIONS/CONTRAINDICATIONS TO THE PLANNED PROCEDURE AND ANESTHESIA ARE DOCUMENTED AND EVALUATED BELOW. I ATTEST TO THE ADEQUACY AND APPROPRIATENESS OF MY ASSESSMENT, AND CONFIRM THE NECESSITY FOR THE PLANNED PROCEDURE. THE PATIENT IS ALERT, ORIENTED TIMES THREE AND COOPERATIVE. LUNGS ARE CLEAR TO AUSCULTATION. HEART SHOWS REGULAR RHYTHM, NO MURMURS AND NO GALLOPS. ASSESSMENTS CHRONIC MIGRAINE - G43.709 (PRIMARY) TREATMENT CHRONIC MIGRAINE MEDICATION: VALIUM TAB 10MG ORALLY (DIAZEPAM)YAKELIN GOODEN 02/21/2021 1:34:56 PM > VERIFIED. ROB GREENFIELD 02/21/2021 1:39:14 PM > ADMINISTERED COMPLETION OF PROCEDURAL VISIT WHEN MEETS CRITERIAROB GREENFIELD 02/21/2021 2:36:16 PM > CRITERIA MET MED: PAIN ZOFRAN ODT TAB 4MG DISSOLVE ON TONGUE ONDANSETRONYAKELIN GOODEN 02/21/2021 1:34:41 PM > VERIFIED. ROB GREENFIELD R 02/21/2021 1:38:26 PM > ADMINISTERED MED: PAIN NORCO TABLET 5MG/325MG ORALLY HYDROCODONE/ACETAMINOPHENDILEONARDNEW Bhandari 02/21/2021 1:29:40 PM > GIVE 2 TABLETS YAKELIN GOODEN 02/21/2021 1:34:24 PM > VERIFIED. TOYIN GREENFIELDIL R 02/21/2021 1:39:39 PM > ADMINISTERED PROCEDURES PAIN NURSING RECORD PROCEDURE IN ROOM 1248, PHYSICIAN IN ROOM 1400, START 1403, FINISH 1419, PHYSICIAN OUT OF ROOM 1420, OUT OF ROOM 1440, ECG N/A, PATIENT SHIELDED N/A, SAFETY STRAP N/A, PREP ALCOHOL DR. MUNIZ, DRESSING N/A LOC: DARLENE GREENFIELDGAIL R 02/21/2021 2:03:43 PM > , 1. ALERT, ORIENTED RESP: GINROB R 02/21/2021 2:03:46 PM > , 1. REGULAR, NO DYSPNEA COLOR: TOYIN GREENFIELDIL R 02/21/2021 2:03:48 PM > , 1. PINK SKIN: TOYIN GREENFIELDIL R 02/21/2021 2:03:51 PM > , 1. WARM, DRY POSITION: GINROB R 02/21/2021 2:03:54 PM > , 2. SUPINE PETRCAYDENROB R 02/21/2021 2:08:46 PM > , 5. SITTING PETRCAYDENROB R 02/21/2021 2:19:20 PM > , 2. SUPINE VITALS: DARLENE GREENFIELDGAIL R 02/21/2021 2:34:42 PM > 159/93, 62, 16, 100% COMPLETION OF PROCEDURE APPOINTMENT: POST PAIN 9, DRESSING SITE NO DRESSING AREAS CLEAN WITH SLIGHT REDNESS FROM INJECTIONS, IV N/A, GAIT WHEELCHAIR PATIENT ARRIVED IN WHEELCHAIR DUE TO INJURY TO RIGHT FOOT, TEACHING COMPLETED, PATIENT ACKNOWLEDGES UNDERSTANDING YES, PROCEDURE APPOINTMENT COMPLETED AT 1440 BY: Davie GREENFIELD RN PN BOTOX INJECTIONS FIRST INJECTION PRE PROCEDURE DIAGNOSIS CHRONIC MIGRAINE HEADACHES POST PROCEDURE DIAGNOSIS CHRONIC MIGRAINE HEADACHES PROCEDURE BOTOX INJECTION AT THE HEAD, NECK AND SHOULDERS SURGEON DR. SAMIR MUNIZ PRIVATE WEALTH ADVISOR NONE ANESTHESIA NONE PRE PROCEDURE NOTE THE PATIENT HAS HISTORY OF CHRONIC MIGRAINE HEADACHES. I EVALUATED THE PATIENT AND REVIEWED THE CHART. I WENT OVER THE RISKS, ALTERNATIVES, AND BENEFITS ASSOCIATED WITH THIS PROCEDURE. THE PATIENT WOULD LIKE TO PROCEED AND GAVE CONSENT TO PERFORM THE PROCEDURE. THE PATIENT DENIES UNEXPLAINABLE WEIGHT LOSS, FEVER, CHILLS, OR NEW CHANGES IN URINARY OR BOWEL CONTROL. BEFORE DOING BOTOX, SHE WAS HAVING A HEADACHE EVERY DAY OF THE MONTH AND NOW, SHE HAS LESS THAN 10 HEADACHES A MONTH. THE PATIENT HAS USED THE MEDICATIONS LISTED IN THE CHART TO TREAT THE HEADACHES FOR MANY MONTHS BUT THE HEADACHES PERSIST DESCRIBED ABOVE. THE PATIENT IS COVID-19 NEGATIVE. THE PATIENT IS BREAST FEEDING. AFTER HER LAST BOTOX INJECTION, I SPOKE WITH [facility]ER[employer] ABOUT THIS ISSUE OF BREAST FEEDING WHILE RECEIVING BOTOX AND THEY STATED THAT THERE IS NO INFORMATION AVAILABLE AND I TOLD THE PATIENT TO TALK TO HER CYLINDER FILLER ABOUT THIS ISSUE. I HAD A LONG CONVERSATION TO DAY WITH THE PATIENT ABOUT THIS AND WE DISCUSSED HER THROWING AWAY THE BREAST MILK FOR THE NEXT 2 MONTHS AND RESTART BREASTING FEEDING AND SAVING MILK FOR THE LAST MONTH BEFORE HER NEXT INJECTION. DESCRIPTION OF PROCEDURE THE PATIENT WAS BROUGHT TO THE PROCEDURE ROOM AND PLACED IN THE SUPINE POSITION. A TIMEOUT WAS PERFORMED WHERE THE CONSENTED SITE WAS VERIFIED WITH EVERYONE IN THE ROOM. FOR THE PROCEDURE I USED A SOLUTION OF 5 UNITS OF BOTOX PER EACH 0.1 ML OF THE SOLUTION. I USED A 30-GAUGE NEEDLE TO INJECT THE SOLUTION AT THE SELECTED LOCATIONS. I INJECTED FIRST THE RIGHT AND LEFT LABOR AND EMPLOYMENT PARALEGAL MUSCLES. THE LANDMARK FOR BOTH INJECTIONS WAS APPROXIMATELY 1 CM ABOVE THE SUPERIOR MEDIAL EDGE OF THE EYEBROW. AFTER THESE TWO INJECTIONS, I INJECTED THE PROCERUS MUSCLE AT THE MIDLINE POINT BETWEEN THESE FIRST TWO INJECTIONS. THEN I PROCEEDED TO INJECT THE RIGHT AND LEFT FRONTALIS MUSCLE. TWO INJECTIONS WERE DONE IN EACH SIDE. THE FIRST INJECTION WAS DONE APPROXIMATELY 2 CM ABOVE THE FIRST INJECTION OF THE LABOR AND EMPLOYMENT PARALEGAL. THE SECOND INJECTION WAS DONE APPROXIMATELY 1.5 CM LATERAL TO THIS FIST INJECTION OF THE FRONTALIS OF EACH SIDE. AFTER THE INJECTIONS OVER THE FOREHEAD WERE DONE, THE PATIENT'S HEAD WAS TURNED TO THE LEFT SIDE AND WE STARTED TO WORK WITH THE RIGHT TEMPORALIS MUSCLE. FIRST INJECTION WAS DONE IN A VERTICAL LINE OF THE TRAGUS APPROXIMATELY 3 CM ABOVE THE TRAGUS. THE SECOND INJECTION WAS DONE APPROXIMATELY 2 CM ABOVE THE FIRST INJECTION. THE THIRD INJECTION WAS DONE APPROXIMATELY 1 CM FORWARD FROM THIS VERTICAL LINE CREATED AT THE LEVEL OF THE TRAGUS, JAIL BETWEEN THESE TWO INJECTIONS. THE FOURTH INJECTION WAS DONE APPROXIMATELY 1.5 CM BACK FROM THE SECOND INJECTION TO THE TEMPORALIS IN LINE TO THE MIDPORTION OF THE EAR. THEN, WE PROCEEDED TO INJECT THE LEFT TEMPORALIS MUSCLE. WE CLEANED THE AREA WITH ALCOHOL AND PROCEEDED TO PERFORM THE SAME FOR INJECTIONS DESCRIBED ABOVE BUT IN THE LEFT TEMPORALIS MUSCLE USING THE SAME LANDMARKS. AFTER THESE INJECTIONS WERE DONE, THE PATIENT WAS SEATED. FIRST, WE STARTED TO INJECT THE LEFT AND RIGHT OCCIPITALIS MUSCLE. I INJECTED AT THE FOLLOWING PLACES IN THE RIGHT AND LEFT MUSCLE. THE FIRST INJECTION WAS DONE AT THE MIDPOINT POSITION BETWEEN THE MASTOID PROCESS AND THE INION OF THE OCCIPITAL PROTUBERANCE. THE SECOND INJECTION WAS DONE APPROXIMATELY 1.5 CM SUPERIOR AND LATERAL OF THIS POINT. THE THIRD INJECTION WAS DONE APPROXIMATELY 1.5 CM SUPERIOR AND MEDIAL TO THIS FIRST INJECTION. NEXT, I PROCEEDED TO INJECT THE RIGHT AND LEFT PARASPINAL MUSCLES. LANDMARK OF THE INJECTION WERE APPROXIMATELY: FIRST INJECTION 3 CM BELOW THE INION AND 1 CM LATERAL TO THE MIDLINE AND SECOND INJECTION AT EACH SIDE WAS DONE APPROXIMATELY 1.5 CM SUPERIOR AND LATERAL OF THE FIRST INJECTION. THE LAST GROUP OF INJECTIONS WAS DONE OVER THE RIGHT AND LEFT TRAPEZIUS MUSCLE OVER THE SHOULDERS AREA. THE FIRST INJECTION WAS DONE AT THE MIDPOINT BETWEEN THE INFLECTION POINT BETWEEN THE NECK AND SHOULDER AND THE ACROMION. THE SECOND AND THIRD INJECTIONS WERE DONE APPROXIMATELY 2.5 CM LATERAL AND MEDIAL FROM THIS FIRST INJECTION. SAME TARGETS WERE USED IN THE RIGHT AND LEFT SIDE. AFTER THE ABOVE TARGETS WERE INJECTED THE PATIENT REQUEST ADDITIONAL INJECTION BASED ON HER PRIOR EXPERIANCE WITH BOTOX. WE AGREE ON THE FOLLOWING: I INJECTED 2.5 UNITS IN THE RIGHT AND LEFT FRONTALIS MUSCLE AND I INJECTED 2.5 UNITS IN THE RIGHT AND LEFT PARASPINAL MUSCLE GROUP FOR A TOTAL OF 10 UNITS. IN TOTAL, I INJECTED 165 UNITS OF BOTOX. THE MEDICATIONS WERE VERIFIED WITH THE NURSE. PROCEDURE WAS DONE WITHOUT EVIDENCE OF PARESTHESIA OR ANY COMPLICATIONS. THE PATIENT TOLERATED THE PROCEDURE VERY WELL. ESTIMATED BLOOD LOSS WAS LESS THAN 5 ML. THE PATIENT WAS SENT TO THE RECOVERY ROOM FOR OBSERVATIONS. INJECTIONS WERE DONE AFTER CLEANING WITH ALCOHOL, USING ASEPTIC TECHNIQUE. POST PROCEDURE NOTE THE PROCEDURE DONE WAS DISCUSSED WITH THE PATIENT. THE PATIENT WILL BE SEEN IN A FOLLOW UP IN THE NEXT FEW WEEKS. I AM LOOKING FOR LONG LASTING PAIN RELIEF FOR THE PATIENT WITH THIS INTERVENTION. INSTRUCTIONS WERE GIVEN, QUESTIONS WERE ANSWERED, AND THE PATIENT EXPRESSED UNDERSTANDING AND AGREES WITH THE PLAN. I, NEW VEGA, DOCUMENTED THE ABOVE INFORMATION ACTING A SCRIBE FOR DR. MUNIZ. I HAVE REVIEWED THE ABOVE DOCUMENT, WRITTEN BY NEW VEGA, DIRECTOR COUNCIL ON AGING, AND I VERIFY THAT IT IS ACCURATE PROCEDURE CODES 74655 CHEMODENERV MUSC MIGRAINE DISPOSITION & COMMUNICATION FOLLOW UP FOLLOW UP WITH CRIME SCENE PHOTOGRAPHER (REASON: POST BOTOX INJECTIONS TO HEAD, NECK AND SHOULDER AREAS) ELECTRONICALLY SIGNED BY SAMIR MUNIZ MD, MD ON 02/23/2021 AT 03:31 PM EDT DISCLAIMER : THIS IS A VISIT SUMMARY EXTRACTED FROM THE [employer] CHART. IT IS NOT A COPY OF THE [employer] PROGRESS NOTE. KENNY
== END ==
LOC: M PAIN 13:00
PROVIDERS: ATTEND Anesthesiology
DX: G43.709 Chronic migraine without aura, not intractable, without status migrainosus (principal); L93.0 Discoid lupus erythematosus; I10 Essential (primary) hypertension; G40.909 Epilepsy, unspecified, not intractable, without status epilepticus; E66.01 Morbid (severe) obesity due to excess calories; I27.20 Pulmonary hypertension, unspecified; Z87.891 Personal history of nicotine dependence; Z68.42 Body mass index [BMI] 45.0-49.9, adult; Z79.01 Long term (current) use of anticoagulants; Z79.891 Long term (current) use of opiate analgesic; Z79.899 Other long term (current) drug therapy; Z88.8 Allergy status to other drugs, medicaments and biological substances; Z91.040 Latex allergy status
CPT/HCPCS: 64615; J0585; Q0162

== ENCOUNTER → 2021-02-21 | Outpatient (CLI) | payer OTHER ==
[~2021-02-21] MED LIST changes: -BOTOX THERAPEUTIC 100 UNIT VIAL (J0585 PER 1 UNIT) IM ONE; -NORCO, ANEXSIA 5/325MG TABLET (HYDROcodone/ACETAMINOPHEN) As Ordered ONE; -ONDANSETRON 4 MG ORAL DISINTEGRATING TAB As Ordered ONE; -diazePAM 5MG TABLET As Ordered ONE
== END ==
LOC: M PAIN 15:15
PROVIDERS: ATTEND Anesthesiology
DX: Z53.8 Procedure and treatment not carried out for other reasons (principal)

== ENCOUNTER 2021-02-22 18:31 | Inpatient (IN) | payer OTHER ==
[~2021-02-22] VITALS: Ht 175.3 cm; Wt 127.5 kg
[~2021-02-22 18:31] MED LIST changes: -DOCU100C16 PO; -FLUO40CA PO; -HYDR-3490 PO; -HYDR25TA PO; -ZOLP10TA2 PO
[2021-02-22] MEDS ORDERED: PROPOFOL 1,000 MG/100 ML VIAL As Ordered ONE (18:44)
[2021-02-22] MEDS ORDERED: methylPREDNISolone 125MG 2ML VIAL IV ONE (18:45)
[2021-02-22] MEDS: propofoL 1,000 MG in IV 1 EA IV SCH ×5 (18:53→23:21)
[2021-02-22] MEDS ORDERED: SUCCINYLCHOLINE INJ 200 MG/10 ML VIAL (J0330) IV STA (19:04)
[2021-02-22] MEDS ORDERED: ETOMIDATE INJ 20MG/10ML VIAL IV STA (19:04)
[2021-02-22] MEDS ORDERED: ROCURONIUM BROMIDE 50 MG/5 ML VIAL IV SCH (19:05)
[2021-02-22] MEDS ORDERED: propofoL 200 MG/20 ML VIAL IV ONE ×2 (19:10)
[2021-02-22] MEDS ORDERED: ISOVUE-370 76% 100ML VIAL As Ordered ONE (19:13)
[2021-02-22 19:14] LABS: ABG BASE EXCESS -5.1 (-2.0-2.0); ABG HCO3 21.8 MEQ/L (22.0-26.0); ABG O2 SATURATION 96.9 % (95.0-99.0); ABG PARTIAL PRESSURE CO2 48.4 mmHg (35.0-45.0); ABG PARTIAL PRESSURE O2 96.5 mmHg (75.0-100.0); ABG STANDARD HCO3 20.2 MEQ/L (22.0-26.0); ABG TOTAL CO2 23.3 MEQ/L (22.0-29.0); ABG pH (ARTERIAL) 7.272 UNITS (7.350-7.450)
--- NOTE | 2021-02-22 19:14 | REP ---
INDICATION: sob. COMPARISON: 09/23/2020. TECHNIQUE: SINGLE PORTABLE AP VIEW OF THE CHEST WAS PERFORMED. FINDINGS: There is poor ventilation with linear atelectatic changes bilaterally. The heart and mediastinum are unchanged. Endotracheal tube tip is 2.8 cm above the paula. Nasogastric tube is seen with distal end coiled in the stomach. IMPRESSION: Poor ventilation with mild atelectatic changes. Endotracheal tube tip 2.8 cm above the paula. Nasogastric tube with side port in the stomach. <Electronically signed by Isreal Sinha > 02/22/21 1910
[2021-02-22 19:27] LABS: ALBUMIN 3.7 GM/DL (3.2-5.2); ALT/SGPT 34 U/L (12-78); BILIRUBIN,DIRECT < 0.1 MG/DL (0.0-0.2); BILIRUBIN,TOTAL < 0.1 MG/DL (0.2-1.0); BLOOD UREA NITROGEN 8 MG/DL (7-18); C REACTIVE PROTEIN QUANTITATIV 2.19 MG/DL (0.00-0.30); CALCIUM LEVEL 9.2 MG/DL (8.5-10.1); CARBON DIOXIDE LEVEL 26 MEQ/L (21-32); CHLORIDE LEVEL 109 MEQ/L (98-107); COMPLEMENT C4 44 MG/DL (10-40); CREATININE FOR GFR 0.76 MG/DL (0.55-1.30); GLOMERULAR FILTRATION RATE > 60.0 (>60); GLUCOSE, FASTING 110 MG/DL (70-100); POTASSIUM SERUM 4.1 MEQ/L (3.5-5.1); SODIUM LEVEL 142 MEQ/L (136-145)
[2021-02-22 19:42] LABS: ERYTHROCYTE SEDIMENTATION RATE 31 mm/hr (0-20)
[2021-02-22] MEDS ORDERED: MIDAZOLAM INJ 2MG/2ML VIAL (J2250 PER 1MG) As Ordered ONE (20:01)
[2021-02-22] MEDS: MIDAZOLAM INJ 2MG/2ML VIAL (J2250 PER 1MG) IV PRN ×3 (20:05→21:46)
--- NOTE | 2021-02-22 20:12 | REPVR ---
PROCEDURE INFORMATION: Exam: CT Head Without Contrast Exam date and time: 02/22/2021 7:33 PM Age: 30 years old Clinical indication: Altered mental status/memory loss; Other: ? Anaphylaxis TECHNIQUE: Imaging protocol: Computed tomography of the head without contrast. Radiation optimization: All CT scans at this facility use at least one of these dose optimization techniques: automated exposure control; mA and/or kV adjustment per patient size (includes targeted exams where dose is matched to clinical indication); or iterative reconstruction. COMPARISON: CT Head without contrast 09/17/2020 2:18 AM FINDINGS: Brain: Unremarkable. No hemorrhage. No significant white matter disease. No edema. Cerebral ventricles: No ventriculomegaly. Bones/joints: Unremarkable. No acute fracture. Paranasal sinuses: Mild mucosal thickening of the left maxillary and bilateral ethmoid sinuses. No paranasal sinus air-fluid level. Mastoid air cells: Visualized mastoid air cells are well aerated. Soft tissues: Unremarkable. IMPRESSION: No acute intracranial abnormality. Electronically signed by: Timothy Al On 02/22/2021 20:13:01 PM
--- NOTE | 2021-02-22 20:14 | REPVR ---
PROCEDURE INFORMATION: Exam: CT Abdomen And Pelvis With Contrast Exam date and time: 02/22/2021 7:33 PM Age: 30 years old Clinical indication: Other: ? Anaphylaxsis; Additional info: Altered mental status TECHNIQUE: Imaging protocol: Computed tomography of the abdomen and pelvis with contrast. Radiation optimization: All CT scans at this facility use at least one of these dose optimization techniques: automated exposure control; mA and/or kV adjustment per patient size (includes targeted exams where dose is matched to clinical indication); or iterative reconstruction. Contrast material: ISOVUE 370; Contrast volume: 75 ml; Contrast route: INTRAVENOUS (IV); COMPARISON: CT ABD/PEL W/IV CONTRAST ONLY 12/05/2020 12:48 PM FINDINGS: Tubes, catheters and devices: NG tube demonstrated coiled in the stomach. Pleural spaces: Bibasal pleural effusions and infiltrates, possibly atelectatic although infection be excluded clinically. Liver: Normal. No mass. Gallbladder and bile ducts: There has been a cholecystectomy. Pancreas: Normal. No ductal dilation. Spleen: Normal. No splenomegaly. Adrenal glands: Normal. No mass. Kidneys and ureters: Normal. No hydronephrosis. Stomach and bowel: Unremarkable. No obstruction. No mucosal thickening. Appendix: There has been an appendectomy. Intraperitoneal space: Unremarkable. No free air. No significant fluid collection. Vasculature: Unremarkable. No abdominal aortic aneurysm. Lymph nodes: Unremarkable. No enlarged lymph nodes. Urinary bladder: Mata catheter within the urinary bladder. Intraluminal air within the bladder likely iatrogenic. Clinical correlation to exclude infection suggested. Reproductive: Unremarkable as visualized. Bones/joints: Moderate to severe central spinal stenosis L4-L5. Soft tissues: There is a small umbilical hernia. There is no evidence of incarceration. IMPRESSION: 1. Bibasal pleural effusions and infiltrates, possibly atelectatic although infection be excluded clinically. 2. There has been a cholecystectomy. 3. Mata catheter within the urinary bladder. Intraluminal air within the bladder likely iatrogenic. Clinical correlation to exclude infection suggested. Electronically signed by: Turner Crow On 02/22/2021 20:15:05 PM
[2021-02-22] MEDS ORDERED: MIDAZOLAM INJ 2MG/2ML VIAL (J2250 PER 1MG) IV STA (20:15)
--- NOTE | 2021-02-22 20:18 | REPVR ---
PROCEDURE INFORMATION: Exam: CTA Chest With Contrast Exam date and time: 02/22/2021 7:33 PM Age: 30 years old Clinical indication: Other: ? Anaphylaxsis; Additional info: Altered mental status TECHNIQUE: Imaging protocol: Computed tomographic angiography of the chest with contrast. 3D rendering (Not supervised by radiologist): MIP and/or 3D reconstructed images were created by the technologist. Radiation optimization: All CT scans at this facility use at least one of these dose optimization techniques: automated exposure control; mA and/or kV adjustment per patient size (includes targeted exams where dose is matched to clinical indication); or iterative reconstruction. Contrast material: ISOVUE 370; Contrast volume: 75 ml; Contrast route: INTRAVENOUS (IV); COMPARISON: CT ANGIO CHEST 09/23/2020 2:20 AM FINDINGS: Tubes, catheters and devices: NG tube demonstrated. Endotracheal tube positioned near the origin of the right mainstem bronchus. Pulmonary arteries: Normal. No pulmonary emboli. Aorta: Unremarkable. No aortic aneurysm. No aortic dissection. Lungs: Bibasilar infiltrates. Findings may be secondary to atelectasis although infectious etiology or changes post aspiration not excluded. Pleural spaces: Small bilateral pleural effusions. Heart: Cardiomegaly. Lymph nodes: Unremarkable. No enlarged lymph nodes. Bones/joints: Unremarkable. No acute fracture. Soft tissues: Unremarkable. IMPRESSION: 1. Endotracheal tube positioned near the origin of the right mainstem bronchus. 2. Small bilateral pleural effusions. 3. Bibasilar infiltrates. Findings may be secondary to atelectasis although infectious etiology or changes post aspiration not excluded. 4. Cardiomegaly. 5. No pulmonary emboli. 6. No aortic dissection. Electronically signed by: Turner Crow On 02/22/2021 20:18:44 PM
[2021-02-22 20:51] LABS: AMPHETAMINES LEVEL URINE NEGATIVE (NEGATIVE); BARBITURATES URINE POSITIVE (NEGATIVE); BENZODIAZEPINES URINE POSITIVE (NEGATIVE); CANNABINOIDS URINE NEGATIVE (NEGATIVE); COCAINE METABOLITE URINE NEGATIVE (NEGATIVE); METHADONE URINE NEGATIVE (NEGATIVE); OPIATES URINE NEGATIVE (NEGATIVE); PHENCYCLIDINE URINE NEGATIVE (NEGATIVE)
[2021-02-22 20:51] LABS: ABG BASE EXCESS -1.8 (-2.0-2.0)
[2021-02-22 20:52] LABS: ABG HCO3 23.3 MEQ/L (22.0-26.0); ABG O2 SATURATION 98.7 % (95.0-99.0); ABG PARTIAL PRESSURE CO2 41.3 mmHg (35.0-45.0); ABG PARTIAL PRESSURE O2 112.3 mmHg (75.0-100.0); ABG TOTAL CO2 24.6 MEQ/L (22.0-29.0)
--- NOTE | 2021-02-22 20:56 | REPVR ---
PROCEDURE INFORMATION: Exam: XR Chest Exam date and time: 02/22/2021 8:45 PM Age: 30 years old Clinical indication: Device placement; Ett placement (vent status); Additional info: Ett tube TECHNIQUE: Imaging protocol: XR of the chest. Views: 1 view. COMPARISON: MA Chest, 1 view 02/22/2021 6:46 PM FINDINGS: Tubes, catheters and devices: Endotracheal tube demonstrated with the tip of the tube located 3.7 cm. above the paula. NG tube coiled in the left upper quadrant consistent with an intragastric location. Lungs: Increased parenchymal opacity in the left retrocardiac region, findings suggestive of an infiltrate and/or mass. Remaining lungs are clear. Suboptimal inspiratory effort. Pleural spaces: Unremarkable. No pleural effusion. No pneumothorax. Heart/Mediastinum: Unremarkable. No cardiomegaly. Bones/joints: Unremarkable. IMPRESSION: Increased parenchymal opacity in the left retrocardiac region, findings suggestive of an infiltrate and/or mass. Electronically signed by: Turner Crow On 02/22/2021 20:57:04 PM
[2021-02-22 20:58] LABS: BASO # 0.1 10^3/uL (0.0-0.2); BASO % 0.4 % (0.0-1.0); EOS # 0.6 10^3/uL (0.0-0.5); EOS % 3.3 % (0.0-3.0); HEMOGLOBIN 11.9 g/dl (12.0-15.5); LYMPH % 39.2 % (24.0-44.0); MEAN CORPUSCULAR HEMOGLOBIN 24.5 pg (27.0-33.0); MEAN CORPUSCULAR HGB CONC 30.5 g/dl (32.0-36.5); MEAN CORPUSCULAR VOLUME 80.4 fl (80.0-96.0); MONO # 0.9 10^3/uL (0.0-0.8); MONO % 4.8 % (2.0-8.0); NEUTROPHILS # 9.2 10^3/uL (1.5-8.5); PLATELET COUNT, AUTOMATED 355 10^3/uL (150-450); RED BLOOD COUNT 4.85 10^6/uL (4.00-5.40)
[2021-02-22] MEDS ORDERED: CHLORHEXIDINE GLUCONATE 0.12 % 15ML UDC (PERIDEX ORAL RINSE) MT SCH (21:00)
[2021-02-22 21:06] LABS: WHITE BLOOD COUNT 17.8 10^3/uL (4.0-10.0)
[2021-02-22 21:08] LABS: ETHYL ALCOHOL (ETHANOL) < 0.003 % (0.000-0.010)
[2021-02-22] MEDS ORDERED: MIDAZOLAM INJ 2MG/2ML VIAL (J2250 PER 1MG) IV PRN (21:20)
[2021-02-22 22:06] LABS: HCG, SERUM QUALITATIVE NEGATIVE (NEGATIVE)
[2021-02-22 22:50] VITALS: BP 144/72
[2021-02-22] MEDS: HEPARIN SOD (PORCINE) 5000UNITS/ML 1ML VIAL/SYRINGE SQ SCH (23:52)
[2021-02-23] VITALS (31 sets, daily range): BP systolic 119–207; BP diastolic 60–127
[2021-02-23] MEDS: levETIRAcetam INJection 1,500 MG in D5W 100 ML IV SCH ×2 (00:20→10:58)
[2021-02-23] MEDS: propofoL 1,000 MG in IV 1 EA IV SCH ×4 (00:59→06:53)
[2021-02-23] MEDS ORDERED: ROCURONIUM BROMIDE 50 MG/5 ML VIAL ONE (03:54)
[2021-02-23] MEDS ORDERED: propofoL 200 MG/20 ML VIAL ONE (03:54)
[2021-02-23] MEDS ORDERED: SUCCINYLCHOLINE 100 MG/5 ML SYRINGE (J0330) ONE (03:54)
[2021-02-23] MEDS ORDERED: ETOMIDATE INJ 20MG/10ML VIAL ONE (03:54)
[2021-02-23 05:45] LABS: ABG BASE EXCESS -4.1 (-2.0-2.0); ABG HCO3 20.9 MEQ/L (22.0-26.0); ABG O2 SATURATION 98.3 % (95.0-99.0); ABG PARTIAL PRESSURE CO2 37.8 mmHg (35.0-45.0); ABG PARTIAL PRESSURE O2 108.9 mmHg (75.0-100.0); ABG STANDARD HCO3 21.1 MEQ/L (22.0-26.0)
[2021-02-23] MEDS: HEPARIN SOD (PORCINE) 5000UNITS/ML 1ML VIAL/SYRINGE SQ SCH (05:59)
[2021-02-23] MEDS: IPRATROPIUM 0.5MG/ALBUTEROL 2.5MG INH SOL UD 3ML (DUONEB) NEB SCH ×2 (07:11→11:26)
--- NOTE | 2021-02-23 07:59 | REP ---
INDICATION: RESPIRATORY FAILURE COMPARISON: 02/22/2021 TECHNIQUE: Portable AP view of the chest FINDINGS: Endotracheal tube 2 cm above the paula. Nasogastric tube courses below left hemidiaphragm. Chest tube at the left base remains stable. The lung muniz demonstrate improved aeration but with continued perihilar and left lower lobe opacities suggested. No obvious pneumothorax. Layering left effusion cannot be excluded. IMPRESSION: Lung muniz suggest mildly improved aeration with continued perihilar and left lower lobe opacities. <Electronically signed by Hossein Ingram > 02/23/21 [id number]
--- NOTE | 2021-02-23 08:06 | ECGEPIP ---
[facility] - ED Test Date: 2021-02-22 Pat Name: WINSOME RODRIGUEZ Department: Room: [place] [address] Gender: Female Cottrell Blower: SANJANA : 1990 Requested By: HOWARD Casillas Order Number: [id number] Reading MD: Quique Blancas Measurements Intervals [place] Rate: 100 P: 48 ID: [id number] QRS: 18 QRSD: 88 T: 49 QT: 350 QTc: 451 Interpretive Statements Normal sinus rhythm Possible Left atrial enlargement Nonspecific T wave abnormality SIMILAR TO 09/23/20 Electronically Signed on 02-23-2021 8:06:33 EDT by Quique Blancas
--- NOTE | 2021-02-23 08:08 | CCN ---
CRITICAL CARE NOTE DATE: 02/23/2021 CRITICAL CARE TIME: 40 minutes, this excludes all procedures. SUBJECTIVE: At patient's bedside, the patient was awake, able to do spontaneous breathing trial with tidal volumes of 500. No arrhythmias overnight. No difficulty with mechanical ventilation. No desaturation. It was determined the patient would likely pass extubation, she was extubated today. Still questionable what actually led to her hospitalization. OBJECTIVE: VITAL SIGNS: Temperature is 97.8, pulse is 77, respiratory rate is 28, blood pressure is 126/71. Oxygen saturation 98% on 0.40 FIO2. GENERAL: Initially on extubated wanted to talk. We asked her to rest her voice. HEENT: Sclera clear. Nonicteric. Pupils equal, reactive to light. Mucous membranes are moist. Later, she was refusing to follow commands. She had purposeful closing of her eyes when I asked her to open her eyes. NECK: Supple. No tracheal deviation. No mass. No stridor. LUNGS: Clear to auscultation without rales, rhonchi or wheezes. No dullness to percussion. No accessory muscle use. CARDIAC: Tachycardic S1 and S2 without audible murmur, rub or gallop. PMI is displaced laterally. ABDOMEN: Obese, soft, nontender and nondistended. No hepatosplenomegaly. No masses or hernia. EXTREMITIES: No cyanosis, clubbing or edema. Refuses to move right leg but moves all other extremities to command. SKIN: Without rashes, jaundice or bruising. LABORATORY DATA: Labs from this morning are pending. Chest x-ray shows endotracheal tube in good position, cardiomegaly, decreased chest expansion. No other abnormalities. IMPRESSION: Respiratory failure for unknown reason. Patient will be continued to be monitored. No evidence of bronchospasm on exam. I doubt that she had an allergic reaction. I am not sure if she had an unwitnessed seizure. Will continue to monitor closely in the hospital. At this point in time, however she is not cooperating with physical exam, pretending to be unresponsive based on testing. Addendum: Later she was speaking full sentences and texting on her phone without signs of extremis. [facility]ENTERMak[facility]
[2021-02-23 08:36] LABS: HEMATOCRIT 36.9 % (36.0-47.0); HEMOGLOBIN 11.6 g/dl (12.0-15.5); MEAN CORPUSCULAR HEMOGLOBIN 25.4 pg (27.0-33.0); MEAN CORPUSCULAR HGB CONC 31.4 g/dl (32.0-36.5); MEAN CORPUSCULAR VOLUME 80.9 fl (80.0-96.0); PLATELET COUNT, AUTOMATED 311 10^3/uL (150-450); RED BLOOD COUNT 4.56 10^6/uL (4.00-5.40); WHITE BLOOD COUNT 11.3 10^3/uL (4.0-10.0)
[2021-02-23] MEDS: ACETAMINOPHEN TAB 650MG DOSE (2X325MG) PO PRN ×3 (08:58→22:42)
[2021-02-23] MEDS: PANTOPRAZOLE 40MG VIAL (C9113 PER 1) IV SCH (08:58)
[2021-02-23 09:06] LABS: ALBUMIN 3.4 GM/DL (3.2-5.2); ALT/SGPT 32 U/L (12-78); BILIRUBIN,TOTAL < 0.1 MG/DL (0.2-1.0); BLOOD UREA NITROGEN 5 MG/DL (7-18); CALCIUM LEVEL 9.6 MG/DL (8.5-10.1); CARBON DIOXIDE LEVEL 25 MEQ/L (21-32); CHLORIDE LEVEL 110 MEQ/L (98-107); GLOMERULAR FILTRATION RATE > 60.0 (>60); GLUCOSE, FASTING 101 MG/DL (70-100); POTASSIUM SERUM 3.9 MEQ/L (3.5-5.1); SODIUM LEVEL 142 MEQ/L (136-145); TOTAL PROTEIN 7.2 GM/DL (6.4-8.2)
--- NOTE | 2021-02-23 09:23 | HPE ---
HISTORY AND PHYSICAL DATE OF ADMISSION: 02/22/2021 CRITICAL CARE TIME: 1 and 28 minutes; this includes all procedures. HISTORY OF PRESENT ILLNESS: Ms. Akers comes in with a very peculiar story. The story that was presented to the ER physician does not really correlate with her presentation findings. The patient reportedly has allergies to bananas and was kissed by a child that was eating bananas. The ambulance was called for respiratory distress. She received two doses of Epi on her way here. She presents to the ER completely apneic. There was no evidence of angioedema. There is no evidence of bronchospasm. The patient was intubated because of the apnea and placed on mechanical ventilation. There is no difficulty with mechanical ventilation. There is sinus tachycardia, however, the patient had epinephrine. The patient apparently had urinary incontinence, but no observed seizure activity. PAST MEDICAL HISTORY: The patient has a known history of the followin. Chronic migraines. 2. Reported history of seizure disorder. 3. History of lupus on Benlysta. 4. History of recent right ankle injury without fracture, who was seen in the Emergency Room just days ago. 5. Hypertension. 6. Reported history of reactive airway disease, asthma, however, no formal pulmonary function testing documented and in fact prior H and P's stating that she did not have formal pulmonary function testing for this diagnosis. The patient has no history of angioedema. No FABIAN inhibitor use. My history is limited to that of the chart as there is no one in attendance with the patient. Patient is intubated and sedated on mechanical ventilation. PHYSICAL EXAMINATION: VITAL SIGNS: Temperature 99.1, pulse 124, respiratory rate 16, blood pressure 187/111 with a MAP of 136, oxygen saturation 99% on 0.50 FIO2. GENERAL: Sedated on mechanical ventilation, but does move all extremities. He has purposeful movements on awakening. HEENT: Sclerae clear and anicteric. Pupils are 8 mm bilaterally and reactive to light. There is no scleral icterus. Mucous membranes are moist. Tongue is midline. There is no evidence of tongue swelling. ER physician reports easy intubation. Neck is supple. No tracheal deviation or mass. LYMPH NODES: No cervical, supraclavicular or axillary adenopathy. CARDIAC: Tachycardic S1, S2 with displaced PMI laterally. PULMONARY: Decreased breath sounds at the bases, otherwise clear to auscultation, without rales, rhonchi, wheezes. No dullness to percussion. No accessory muscle use. ABDOMEN: Soft, obese, nontender, non-distended. No discernible hepatosplenomegaly. No masses or hernias. Hypoactive bowel sounds are present. EXTREMITIES: No cyanosis, clubbing or edema. Tattoo on the right foot. SKIN: No rashes, jaundice or bruising. MUSCULOSKELETAL: No evidence of fracture, recent trauma or joint effusion. LABORATORY EVALUATION: Shows an arterial blood gas with a pH 7.37, pCO2 of 41, PAO2 of 112 and initial blood gas showed pH 7.27, pCO2 of 48, PAO2 96. Sodium 142, potassium 4.1, chloride 109, bicarb 26, BUN 8, creatinine 0.76. Fasting glucose 110. Total bilirubin less than 0.1. Alkaline phosphatase 153, AST and ALT normal. Total protein normal. Albumin normal. CBC shows an elevated white count with leukocyte 17.8, hemoglobin 11.9 with platelet count 355. Patch screen is positive for barbiturates and benzodiazepines; both which are prescribed medications to the patient. There is no positive toxicity to suggest an ingested medication that is not on her list. Alcohol level is unremarkable. Calcium 9.2. IMAGING STUDIES: Chest CT shows cardiomegaly with left ventricular enlargement, left atrial enlargement and small bilateral pleural effusions. No evidence of infiltrate. EKG shows a normal sinus rhythm with normal QRS duration and new QTC of 451. Head CT without contrast was unremarkable. Abdomen and pelvis CT was unremarkable, evidence of cholecystectomy. IMPRESSION: 1. Respiratory failure: Unknown cause, presenting with apnea, currently doing well, no evidence of bronchospasm on exam. I do not believe this is anaphylaxis. Patient did receive steroids in the Emergency Room, therefore will continue to monitor in the ICU. Will perform spontaneous breathing trial in the morning. Differential includes un-witnessed seizure activity. Cardiac arrhythmia. Will monitor on telemetry. 2. Cardiomegaly: Will obtain transthoracic echocardiogram due tot the size of the heart and monitor for arrhythmia. No known arrhythmia. 3. Lupus: No evidence of lupus flare. ESR is measured at 31. 4. Leukocytosis: Questionable etiology. No evidence of infection. No hypotension. No evidence of sepsis or septic shock. Will continue to monitor for signs of infection, possibly secondary to acute event. 5. History of seizure disorder: Will continue on Keppra. Monitor for seizure activity. There is no myoclonus on exam currently. 6. DVT prophylaxis: Reported allergy to Lovenox. Will place on Heparin. 7. GI prophylaxis: Will place on Protonix. 8. Overall difficult to ascertain what exactly happened to the patient: Will have to monitor. At this point in time, limited medications to see what develops with close monitoring will be the best course of action. Will attempt spontaneous breathing trial in the morning with possible extubation.
[2021-02-23] MEDS ORDERED: diphenhydrAMINE 25MG CAP PO PRN (10:40)
[2021-02-23] MEDS ORDERED: diphenhydrAMINE 50MG CAP PO STA (10:40)
[2021-02-23] MEDS: APIXABAN 5 MG TAB (ELIQUIS) PO SCH ×2 (10:58→20:39)
[2021-02-23] MEDS ORDERED: FLUO40CA PO (11:04)
[2021-02-23] MEDS ORDERED: DOCU100C16 PO (11:04)
[2021-02-23] MEDS ORDERED: ELIQ5TAB PO (11:04)
[2021-02-23] MEDS ORDERED: ZOLP10TA2 PO (11:04)
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
[2021-02-23] MEDS ORDERED: DOCUSATE SODIUM 100MG CAPSULE PO PRN (11:45)
[2021-02-23] MEDS: NIFEdipine 30 MG XL TAB PO SCH (13:07)
[2021-02-23] MEDS: QUEtiapine FUMARATE 50MG TAB PO SCH (13:07)
[2021-02-23] MEDS ORDERED: ONDANSETRON 4MG/2ML VIAL IV PRN (13:50)
[2021-02-23] MEDS: **hydrALAZINE HCL** 25 MG TAB PO SCH ×2 (14:14→17:43)
[2021-02-23] MEDS: clonazePAM 1 MG TAB PO SCH ×2 (15:04→20:40)
[2021-02-23] MEDS ORDERED: ALBUTEROL 90 MCG/ACT 8GM HFA INHALER INH PRN (16:00)
[2021-02-23] MEDS: levETIRAcetam 250MG TABLET (KEPPRA) PO SCH (20:39)
[2021-02-23] MEDS: PREGABALIN 75 MG CAP(LYRICA) PO SCH (20:40)
[2021-02-23] MEDS: FLUoxetine 20 MG CAP PO SCH (20:41)
[2021-02-23] MEDS: QUEtiapine FUMARATE 100 MG TAB PO SCH (20:50)
[2021-02-24] VITALS: BP 139/83
[2021-02-24] MEDS: **hydrALAZINE HCL** 25 MG TAB PO SCH ×6 (00:04→23:38)
[2021-02-24 02:28] VITALS: BP 153/90
[2021-02-24] MEDS: ACETAMINOPHEN TAB 650MG DOSE (2X325MG) PO PRN ×2 (05:56→20:36)
[2021-02-24 06:00] VITALS: BP 145/89
[2021-02-24] MEDS: CHLORASEPTIC SPRAY MT PRN ×2 (06:01→20:34)
[2021-02-24 06:51] LABS: HEMATOCRIT 35.7 % (36.0-47.0); HEMOGLOBIN 11.2 g/dl (12.0-15.5); MEAN CORPUSCULAR HEMOGLOBIN 25.2 pg (27.0-33.0); MEAN CORPUSCULAR HGB CONC 31.4 g/dl (32.0-36.5); MEAN CORPUSCULAR VOLUME 80.2 fl (80.0-96.0); PLATELET COUNT, AUTOMATED 269 10^3/uL (150-450); RED BLOOD COUNT 4.45 10^6/uL (4.00-5.40); WHITE BLOOD COUNT 10.5 10^3/uL (4.0-10.0)
[2021-02-24 07:15] LABS: BLOOD UREA NITROGEN 10 MG/DL (7-18); CALCIUM LEVEL 9.2 MG/DL (8.5-10.1); CARBON DIOXIDE LEVEL 28 MEQ/L (21-32); CHLORIDE LEVEL 107 MEQ/L (98-107); CREATININE FOR GFR 0.57 MG/DL (0.55-1.30); GLOMERULAR FILTRATION RATE > 60.0 (>60); GLUCOSE, FASTING 79 MG/DL (70-100); POTASSIUM SERUM 3.7 MEQ/L (3.5-5.1); SODIUM LEVEL 141 MEQ/L (136-145)
[2021-02-24] MEDS: QUEtiapine FUMARATE 50MG TAB PO SCH ×2 (08:58→12:53)
[2021-02-24] MEDS: PRENATAL VITAMINS CHEWABLE TABLET PO SCH (09:01)
[2021-02-24] MEDS: NIFEdipine 30 MG XL TAB PO SCH (09:01)
[2021-02-24] MEDS: PANTOPRAZOLE 40MG VIAL (C9113 PER 1) IV SCH (09:02)
[2021-02-24] MEDS: clonazePAM 1 MG TAB PO SCH ×3 (09:02→20:33)
[2021-02-24] MEDS: levETIRAcetam 250MG TABLET (KEPPRA) PO SCH ×2 (09:02→20:33)
[2021-02-24] MEDS: APIXABAN 5 MG TAB (ELIQUIS) PO SCH ×2 (09:02→20:33)
[2021-02-24] MEDS ORDERED: HYDR25TA PO (11:09)
[2021-02-24] MEDS ORDERED: HYDR-3490 PO (11:09)
--- NOTE | 2021-02-24 11:36 | DSES ---
DISCHARGE SUMMARY DATE OF ADMISSION: 02/22/2021 DATE OF DISCHARGE: 02/24/2021 PRINCIPAL DIAGNOSIS: Acute respiratory failure secondary to exposure to bananas leading to intubation no bronchospasm or anaphylaxis seen by pulmonology. SECONDARY DIAGNOSES: 1. History of systemic lupus. 2. History of chronic pericardial effusion. 3. Leukocytosis reactive, no signs of sepsis. 4. History of seizure disorder. 5. History of depression. HISTORY OF PRESENT ILLNESS: The patient was admitted to the ICU under the care of Dr. Mcclain. She apparently had kissed a child who had eaten bananas and became apneic. Received two doses of epinephrine in the ambulance. Presented to the emergency room apneic, was intubated, and transferred to the ICU. HOSPITAL COURSE: She was quickly extubated and transferred to the hospital service to have pulmonology note no bronchospasms or signs of anaphylaxis. The patient yesterday was expressing a lot of stress-related symptoms. I spoke to the on-call psychiatrist, but they have not seen her yet. She does get counseling and feels that she is stable and does not need to see psychiatry and has adequate mental health care resources in place. Has a history of lupus. An echocardiogram was ordered on admission and has not been performed yet, but we will get this done before her discharge. I do have a phone call out to her volleyball assistant coach, Dr. De Souza, who is with [facility] in [place]. I spoke to the television newscast director and I am anticipating his call back; I would like to touch base before she is discharged. Her blood pressure was moderately elevated during the hospitalization, we added some hydralazine, and it came under good control. PHYSICAL EXAMINATION: GENERAL: On the day of pending discharge, she is resting comfortably in no distress. VITAL SIGNS: Her blood pressure is 122/63, O2 saturation is 95% on room air. Current blood pressure is 145/89. She is afebrile. HEENT: She is alert, conversant, and looks mildly depressed. No swelling of tongue or lips. There is no stridor. LUNGS: Entirely clear. HEART: Regular rhythm with no murmur or rub. ABDOMEN: Soft and nontender with no masses. EXTREMITIES: Trace peripheral edema. LABORATORY DATA: Today white count is 10.5 (it was up to 17.8 on admission and we think this was stress demarginalization phenomenon). Hemoglobin stable at 11.3. Platelets are 269,000. Sed rate was only 31. Sodium 131, potassium 3.7, BUN 10, creatinine 0.5, glucose 79. HCG negative. Tox screen positive for barbiturates and benzodiazepines. C1 esterase panel ordered, which is all pending. IMAGING DATA: Angiographic CT of the chest showed bibasilar infiltrates probably atelectasis, small bilateral pleural effusions, or cardiomegaly. No pulmonary embolism. No discussion of pericardial effusion. CT of the abdomen and pelvis was done with no acute findings. DISPOSITION: We anticipate discharge today. I would like to have the echocardiogram done before she leaves. DISCHARGE MEDICATIONS: Will continue to be - 1. Albuterol 2 puffs q. 4 hours p.r.n. 2. Eliquis 5 mg b.i.d.; held for one week prior to Botox injections. 3. Benlysta 200 mcg subcutaneously every Sunday. 4. Fioricet p.r.n. for migraines. 5. Cetirizine 10 mg q. h.s. 6. Klonopin 1 mg t.i.d. 7. Colace 100 mg b.i.d. p.r.n. 8. EpiPen as needed. 9. Fluoxetine 80 mg q. h.s. 10. Hydrochlorothiazide 25 mg daily. 11. Hydrocodone-acetaminophen 5-325 one tablet b.i.d. 12. DuoNeb q. 6 hours p.r.n. 13. Keppra 1500 mg p.o. b.i.d. 14. Nifedipine ER 30 mg q. h.s. 15. Lyrica 75 mg q. h.s. 16. vitamin daily. 17. Seroquel 300 mg at bedtime, 50 mg morning and noon. 18. Ambien 10 mg q. h.s. 19. Hydralazine 25 mg q. 6 hours. Prescription for two weeks of hydrochlorothiazide 25 mg daily and hydralazine 25 mg q. 6 hours was sent to her preferred pharmacy [facility]. She expresses that she has no suicidal or homicidal ideation and that she feels comfortable waiting to see her counselor for her stress related symptoms. I am anticipating a call from Dr. De Souza her volleyball assistant coach. If there is any change to this plan, I will add an addendum to this dictation.
[2021-02-24 12:53] VITALS: BP 144/89
[2021-02-24] MEDS: FLUoxetine 20 MG CAP PO SCH (20:33)
[2021-02-24] MEDS: PREGABALIN 75 MG CAP(LYRICA) PO SCH (20:33)
[2021-02-24] MEDS: QUEtiapine FUMARATE 100 MG TAB PO SCH (20:33)
[2021-02-24 22:00] VITALS: BP 136/70
[2021-02-25] MEDS: **hydrALAZINE HCL** 25 MG TAB PO SCH ×2 (05:59→13:01)
[2021-02-25 06:00] VITALS: BP 149/96
[2021-02-25] MEDS: ACETAMINOPHEN TAB 650MG DOSE (2X325MG) PO PRN (06:00)
[2021-02-25 07:23] LABS: HEMOGLOBIN 11.4 g/dl (12.0-15.5); MEAN CORPUSCULAR HEMOGLOBIN 24.6 pg (27.0-33.0); MEAN CORPUSCULAR VOLUME 81.9 fl (80.0-96.0); PLATELET COUNT, AUTOMATED 315 10^3/uL (150-450); RED BLOOD COUNT 4.64 10^6/uL (4.00-5.40); WHITE BLOOD COUNT 9.2 10^3/uL (4.0-10.0)
[2021-02-25 07:30] LABS: BLOOD UREA NITROGEN 14 MG/DL (7-18); CALCIUM LEVEL 8.8 MG/DL (8.5-10.1); CARBON DIOXIDE LEVEL 31 MEQ/L (21-32); CHLORIDE LEVEL 106 MEQ/L (98-107); CREATININE FOR GFR 0.61 MG/DL (0.55-1.30); GLOMERULAR FILTRATION RATE > 60.0 (>60); GLUCOSE, FASTING 89 MG/DL (70-100); POTASSIUM SERUM 3.9 MEQ/L (3.5-5.1); SODIUM LEVEL 141 MEQ/L (136-145)
[2021-02-25] MEDS: PRENATAL VITAMINS CHEWABLE TABLET PO SCH (08:57)
[2021-02-25] MEDS: CHLORASEPTIC SPRAY MT PRN (08:57)
[2021-02-25] MEDS: levETIRAcetam 250MG TABLET (KEPPRA) PO SCH (08:57)
[2021-02-25] MEDS: QUEtiapine FUMARATE 50MG TAB PO SCH ×2 (08:58→12:57)
[2021-02-25] MEDS: clonazePAM 1 MG TAB PO SCH (08:58)
[2021-02-25] MEDS: APIXABAN 5 MG TAB (ELIQUIS) PO SCH (08:58)
[2021-02-25] MEDS: NIFEdipine 30 MG XL TAB PO SCH (09:00)
[2021-02-25] MEDS: PANTOPRAZOLE 40MG VIAL (C9113 PER 1) IV SCH (09:00)
--- NOTE | 2021-02-25 09:32 | ECHO ---
DATE OF PROCEDURE: 02/24/2021 Age: 30 Gender: Female Height: 175 cm Weight: 128 kg REFERRING PHYSICIAN: Alfonso Smyth MD INDICATION: Chest pain. MEASUREMENTS: IVS 1.5 cm LV 5.0 cm LVPW 1.4 cm LA 3.3 cm Aorta 3.1 cm IVC 1.9 cm Mitral E wave velocity 81 cm/s Mitral A wave 81 cm/s E prime septal 6.4 cm/s E prime lateral 7.1 cm/s FINDINGS: This study is of fair technical quality with difficult visualization. The patient is in sinus rhythm. Left ventricle is normal size. Moderate left ventricular hypertrophy is noted. Overall preserved LV systolic function with estimated LVEF around 60% to 65%. I do not appreciate any segmental wall motion abnormalities based on fair views. Right ventricle was poorly seen, but grossly does not appear enlarged. Both atria appear normal. Aortic valve was poorly visualized, but based on limited views appears normal. There is also poorly visualized mitral valve again based on limited views appears structurally intact. Tricuspid valve appears normal. Pulmonic valve was not well seen. Small noncompressive pericardial effusion is noted. Inferior vena cava is normal size. Aortic root, aortic arch, and abdominal aorta all appear normal. Doppler interrogation reveals no aortic stenosis or insufficiency. There is trace mitral insufficiency. No significant tricuspid insufficiency is seen. Evaluation of diastolic function based on mitral inflow pattern and tissue Doppler imaging of the mitral annulus revealed likely grade 2 diastolic dysfunction. CONCLUSIONS: 1. Stud is of very limited technical quality, underlying sinus rhythm. 2. Normal LV size with moderate left ventricular hypertrophy, preserved LV systolic function and likely grade 2 diastolic dysfunction. 3. No hemodynamically significant valvular disease. 4. Likely normal central venous pressure. 5. Unable to estimate pulmonary artery pressure. 6. Small noncompressive pericardial effusion. [facility]
[2021-02-25 13:01] VITALS: BP 140/90
[2021-02-25 14:00] VITALS: BP 149/94
--- NOTE | 2021-02-26 20:21 | ECGEPIP ---
[facility] Test Date: 2021-02-24 Pat Name: WINSOME RODRIGUEZ Department: Room: [place] [address] Gender: Female Client Professional: yulissa : 1990 Requested By: Alfonso Smyth Order Number: [id number] Reading MD: Gabriel Lopez Measurements Intervals Rowena Rate: 85 P: 49 MO: 160 QRS: 36 QRSD: 92 T: 49 QT: 382 QTc: 454 Interpretive Statements Normal sinus rhythm Nonspecific T wave abnormality Compared to prior tracings (3) in the system, no remarkable changes but slower heart rate Electronically Signed on 02-26-2021 20:21:03 EDT by Gabriel Lopez
[2021-02-28 16:11] LABS: C1 ESTER INHIB. NON FUNCTIONAL 45 mg/dL (21-39); C1 ESTERASE INHIB. FUNCTIONAL > 100 (.); COAGULATION FACTOR XII ACTIVIT 187 % (50-150); TRYPTASE 3.8 ug/L (2.2-13.2)
== END 2021-02-25 16:24 | disposition home health service (06) | DRG 133 ==
LOC: M ED 18:31 → EDBD 18:31 → M ED INP 21:17 → ENRESERV 21:32 → M ICU 22:55 → M MSPAV 02-24 02:28
PROVIDERS: ADMIT Internal Medicine Pulmonary Disease; ATTEND Internal Medicine Pulmonary Disease
PROC: 0BH17EZ Insertion of Endotracheal Airway into Trachea, Via Natural or Artificial Opening (ICD-10-PCS; principal; 2021-02-22)
PROC: 5A1935Z Respiratory Ventilation, Less than 24 Consecutive Hours (ICD-10-PCS; 2021-02-22)
DX: J96.90 Respiratory failure, unspecified, unspecified whether with hypoxia or hypercapnia (principal); M32.9 Systemic lupus erythematosus, unspecified; G43.709 Chronic migraine without aura, not intractable, without status migrainosus; I10 Essential (primary) hypertension; G40.909 Epilepsy, unspecified, not intractable, without status epilepticus; F32.9 Major depressive disorder, single episode, unspecified; F45.0 Somatization disorder; T78.3XXA Angioneurotic edema, initial encounter; Z86.718 Personal history of other venous thrombosis and embolism; Z79.01 Long term (current) use of anticoagulants; Z79.899 Other long term (current) drug therapy; Z62.810 Personal history of physical and sexual abuse in childhood; Z91.040 Latex allergy status; Z91.018 Allergy to other foods; Z88.8 Allergy status to other drugs, medicaments and biological substances

== ENCOUNTER → 2021-02-28 | Outpatient (CLI) | payer OTHER ==
[~2021-02-28] MED LIST changes: +DOCU100C16 PO; +FLUO40CA PO; +HYDR-3490 PO; +HYDR25TA PO; +ZOLP10TA2 PO
--- NOTE | 2021-02-28 14:52 | REP ---
INDICATION: HYPERPARATHYROIDSIM. COMPARISON: There are no prior completed examinations for comparison. The prior partial exam of 12/01/2020 was reviewed. TECHNIQUE: After the intravenous administration of 23.20 mCi of technetium 99 M sestamibi parathyroid imaging was performed. FINDINGS: The 15 minutes delay scintiscan shows no abnormal increased or decreased radionuclide accumulation. 4 hour delayed scintigraphy shows no evidence of abnormal focal increased radionuclide accumulation that would be consistent with parathyroid uptake. IMPRESSION: Negative exam <Electronically signed by Piotr Farris > 02/28/21 [id number]
== END ==
LOC: M RAD 10:14
PROVIDERS: ATTEND Internal Medicine
DX: E21.3 Hyperparathyroidism, unspecified (principal); E55.9 Vitamin D deficiency, unspecified
CPT/HCPCS: 78070; A9500

== ENCOUNTER → 2021-03-05 | Outpatient (CLI) | payer OTHER | LOC: M LAB 09:05 | PROVIDERS: ATTEND Psychiatry & Neurology Neurology | DX: R56.9 Unspecified convulsions (principal) ==

== ENCOUNTER → 2021-03-07 | Outpatient (REF) | payer OTHER ==
[2021-03-07 17:24] LABS: BASO # 0.1 10^3/uL (0.0-0.2); BASO % 0.5 % (0.0-1.0); EOS # 0.3 10^3/uL (0.0-0.5); EOS % 3.2 % (0.0-3.0); HEMATOCRIT 36.6 % (36.0-47.0); HEMOGLOBIN 11.3 g/dl (12.0-15.5); LYMPH # 2.3 10^3/uL (1.5-5.0); LYMPH % 22.5 % (24.0-44.0); MEAN CORPUSCULAR HEMOGLOBIN 25.1 pg (27.0-33.0); MEAN CORPUSCULAR HGB CONC 30.9 g/dl (32.0-36.5); MEAN CORPUSCULAR VOLUME 81.3 fl (80.0-96.0); MONO # 0.5 10^3/uL (0.0-0.8); MONO % 4.8 % (2.0-8.0); NEUTROPHILS # 7.2 10^3/uL (1.5-8.5); NEUTROPHILS % 68.8 % (36.0-66.0); PLATELET COUNT, AUTOMATED 347 10^3/uL (150-450); WHITE BLOOD COUNT 10.4 10^3/uL (4.0-10.0)
[2021-03-07 17:48] LABS: ALBUMIN 3.4 GM/DL (3.2-5.2); ALT/SGPT 62 U/L (12-78); BILIRUBIN,TOTAL 0.2 MG/DL (0.2-1.0); BLOOD UREA NITROGEN 8 MG/DL (7-18); CALCIUM LEVEL 9.3 MG/DL (8.5-10.1); CARBON DIOXIDE LEVEL 32 MEQ/L (21-32); CHLORIDE LEVEL 104 MEQ/L (98-107); CHOLESTEROL LEVEL 260 MG/DL (<200); CHOLESTEROL RISK RATIO 4.814 (<5); CREATININE FOR GFR 0.54 MG/DL (0.55-1.30); FREE T4 0.68 NG/DL (0.76-1.46); GLOMERULAR FILTRATION RATE > 60.0 (>60); GLUCOSE, FASTING 93 MG/DL (70-100); HDL CHOLESTEROL 54 MG/DL (>40); LDL CHOLESTEROL 176 MG/DL (<100); NON-HDL-C 206 MG/DL; POTASSIUM SERUM 4.3 MEQ/L (3.5-5.1); SODIUM LEVEL 139 MEQ/L (136-145); THYROID STIMULATING HORMONE 0.653 uIU/ML (0.358-3.740); TOTAL PROTEIN 6.6 GM/DL (6.4-8.2); TRIGLYCERIDES LEVEL 150 MG/DL (<150)
[2021-03-07 18:27] LABS: HEMOGLOBIN A1c 5.6 %
[2021-03-08 10:13] LABS: TOTAL 25(OH) VITAMIN D 12.6 NG/ML (30.0-100.0)
[2021-03-09 11:33] LABS: DRVV SCREEN 50.5 SEC
[2021-03-09 11:34] LABS: PTT LUPUS TYPE ANTICOAG SCREEN 1.3 (0-1.2)
[2021-03-09 11:41] LABS: DRVV CONFIRM 40.9 SEC; LUPUS CONFIRM RATIO 1.1
[2021-03-09 11:42] LABS: NORMALIZED RATIO 1.18 (0.00-1.20)
== END ==
LOC: M LAB REF 16:20
PROVIDERS: ATTEND Physician Assistant
DX: E66.9 Obesity, unspecified (principal); Z86.718 Personal history of other venous thrombosis and embolism

== ENCOUNTER → 2021-03-15 | Outpatient (CLI) | payer OTHER ==
[~2021-03-15] MED LIST changes: +GABA-283 PO; -GABA-845 PO
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
== END ==
LOC: M PAIN 11:30
PROVIDERS: ATTEND Family Medicine
DX: G89.29 Other chronic pain (principal); G43.909 Migraine, unspecified, not intractable, without status migrainosus; G40.909 Epilepsy, unspecified, not intractable, without status epilepticus; Z86.718 Personal history of other venous thrombosis and embolism; Z87.891 Personal history of nicotine dependence; Z88.8 Allergy status to other drugs, medicaments and biological substances; Z91.018 Allergy to other foods; Z91.040 Latex allergy status; E66.01 Morbid (severe) obesity due to excess calories; Z68.42 Body mass index [BMI] 45.0-49.9, adult; Z79.01 Long term (current) use of anticoagulants; Z79.899 Other long term (current) drug therapy

== ENCOUNTER 2021-03-28 14:32 | Emergency (ER) | payer OTHER ==
[~2021-03-28] VITALS: Ht 162.6 cm; Wt 125.7 kg
[2021-03-28] MEDS ORDERED: NS 1,000 ML IV ONE (17:10)
[2021-03-28 18:25] VITALS: BP 173/101
== END 2021-03-28 18:28 | disposition home or self-care (01) ==
LOC: M ED 14:32
DX: R10.2 Pelvic and perineal pain (principal); R33.9 Retention of urine, unspecified; I10 Essential (primary) hypertension; E03.9 Hypothyroidism, unspecified; M32.9 Systemic lupus erythematosus, unspecified; Z79.899 Other long term (current) drug therapy; Z79.01 Long term (current) use of anticoagulants; Z88.8 Allergy status to other drugs, medicaments and biological substances; Z91.018 Allergy to other foods; Z91.040 Latex allergy status

== ENCOUNTER 2021-04-02 17:41 | Emergency (ER) | payer OTHER ==
[~2021-04-02] VITALS: Ht 162.6 cm; Wt 123.1 kg
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
[2021-04-02] MEDS ORDERED: MORPHINE 2 MG/ML 1ML VIAL (J2270) IV ONE (22:10)
[2021-04-02 22:45] LABS: BASO # 0.1 10^3/uL (0.0-0.2); BASO % 0.5 % (0.0-1.0); EOS # 0.3 10^3/uL (0.0-0.5); EOS % 2.5 % (0.0-3.0); HEMATOCRIT 33.8 % (36.0-47.0); HEMOGLOBIN 10.4 g/dl (12.0-15.5); LYMPH # 3.7 10^3/uL (1.5-5.0); LYMPH % 28.4 % (24.0-44.0); MEAN CORPUSCULAR HEMOGLOBIN 24.2 pg (27.0-33.0); MEAN CORPUSCULAR HGB CONC 30.8 g/dl (32.0-36.5); MEAN CORPUSCULAR VOLUME 78.8 fl (80.0-96.0); MONO # 0.7 10^3/uL (0.0-0.8); MONO % 5.2 % (2.0-8.0); NEUTROPHILS # 8.2 10^3/uL (1.5-8.5); NEUTROPHILS % 62.9 % (36.0-66.0); PLATELET COUNT, AUTOMATED 361 10^3/uL (150-450); RED BLOOD COUNT 4.29 10^6/uL (4.00-5.40)
[2021-04-02 22:56] LABS: INR 1.02; PARTIAL THROMBOPLASTIN TIME 34.5 SECONDS (24.2-38.5); PROTHROMBIN TIME 13.6 SECONDS (12.5-14.3)
[2021-04-02 23:09] LABS: ALBUMIN 3.2 GM/DL (3.2-5.2); ALT/SGPT 27 U/L (12-78); AMYLASE 30 U/L (25-115); BILIRUBIN,DIRECT < 0.1 MG/DL (0.0-0.2); BILIRUBIN,TOTAL 0.1 MG/DL (0.2-1.0); BLOOD UREA NITROGEN 7 MG/DL (7-18); CALCIUM LEVEL 8.3 MG/DL (8.5-10.1); CARBON DIOXIDE LEVEL 28 MEQ/L (21-32); CHLORIDE LEVEL 111 MEQ/L (98-107); CK-MB VALUE MASS < 1.0 NG/ML (<3.6); CPK CREATINE PHOSPHOKINASE 155 U/L (26-192); CREATININE FOR GFR 0.71 MG/DL (0.55-1.30); ETHYL ALCOHOL (ETHANOL) < 0.003 % (0.000-0.010); GLOMERULAR FILTRATION RATE > 60.0 (>60); GLUCOSE, FASTING 88 MG/DL (70-100); LIPASE 45 U/L (73-393); MB/CK RELATIVE INDEX 0.65 (< OR =4); POTASSIUM SERUM 3.6 MEQ/L (3.5-5.1); SODIUM LEVEL 142 MEQ/L (136-145); TOTAL PROTEIN 6.4 GM/DL (6.4-8.2); TROPONIN I < 0.02 NG/ML (< 0.10)
[2021-04-02] MEDS ORDERED: ISOVUE-370 76% 100ML VIAL As Ordered ONE (23:13)
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
[2021-04-02 23:40] VITALS: BP 148/88
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
[2021-04-03 00:07] LABS: AMPHETAMINES LEVEL URINE NEGATIVE (NEGATIVE); BARBITURATES URINE POSITIVE (NEGATIVE); BENZODIAZEPINES URINE NEGATIVE (NEGATIVE); CANNABINOIDS URINE POSITIVE (NEGATIVE); COCAINE METABOLITE URINE NEGATIVE (NEGATIVE); METHADONE URINE NEGATIVE (NEGATIVE); OPIATES URINE NEGATIVE (NEGATIVE); PHENCYCLIDINE URINE NEGATIVE (NEGATIVE)
[2021-04-03] MEDS ORDERED: CYCL-707 PO (20:30)
[2021-04-03] MEDS ORDERED: QC A650T3 PO (20:30)
[2021-04-04] MEDS ORDERED: HYDR-3363 PO (20:35)
== END 2021-04-03 01:00 | disposition home or self-care (01) ==
LOC: M ED 17:41
DX: S69.91XA Unspecified injury of right wrist, hand and finger(s), initial encounter (principal); V49.49XA Driver injured in collision with other motor vehicles in traffic accident, initial encounter; Y92.410 Unspecified street and highway as the place of occurrence of the external cause; I10 Essential (primary) hypertension; J45.909 Unspecified asthma, uncomplicated; E07.9 Disorder of thyroid, unspecified; F43.10 Post-traumatic stress disorder, unspecified; F90.9 Attention-deficit hyperactivity disorder, unspecified type; Z79.899 Other long term (current) drug therapy; Z79.01 Long term (current) use of anticoagulants; Z88.8 Allergy status to other drugs, medicaments and biological substances; Z91.018 Allergy to other foods; Z91.040 Latex allergy status
CPT/HCPCS: 70450; 71045; 71260; 73130; 80048; 80076; 80307; 81001; 82077; 82150; 82550; 82553; 83605; 83690; 84484; 85025; 85610; 85730; 86850; 86900; 86901; 93041; 94760; 96374; 99285; J2270; Q9967

== ENCOUNTER 2021-04-03 17:49 | Emergency (ER) | payer OTHER ==
[~2021-04-03] VITALS: Ht 162.6 cm; Wt 118.2 kg
[2021-04-03 20:16] VITALS: BP 111/88
[2021-04-03] MEDS ORDERED: CYCLOBENZAPRINE 10MG TABLET PO ONE (20:25)
[2021-04-03] MEDS ORDERED: KETOROLAC 60MG 2ML VIAL IM ONE (20:25)
[2021-04-03] MEDS ORDERED: CYCL-707 PO (20:30)
[2021-04-03] MEDS ORDERED: QC A650T3 PO (20:30)
[2021-04-04] MEDS ORDERED: HYDR-3363 PO (20:35)
== END 2021-04-03 21:02 | disposition home or self-care (01) ==
LOC: M ED 17:49 → EDBD 17:49 → M ED 21:02
DX: S20.01XD Contusion of right breast, subsequent encounter (principal); S60.211D Contusion of right wrist, subsequent encounter; M79.606 Pain in leg, unspecified; V49.40XD Driver injured in collision with unspecified motor vehicles in traffic accident, subsequent encounter; R41.82 Altered mental status, unspecified; Z88.8 Allergy status to other drugs, medicaments and biological substances; Z91.040 Latex allergy status; Z79.899 Other long term (current) drug therapy
CPT/HCPCS: 96372; 99284; J1885

== ENCOUNTER 2021-04-04 15:38 | Emergency (ER) | payer OTHER ==
[~2021-04-04] VITALS: Ht 162.6 cm; Wt 118.2 kg
[~2021-04-04 15:38] MED LIST changes: +CYCL-707 PO; +QC A650T3 PO
[2021-04-04 16:36] LABS: HEMATOCRIT 35.2 % (36.0-47.0); HEMOGLOBIN 10.9 g/dl (12.0-15.5); MEAN CORPUSCULAR HEMOGLOBIN 24.6 pg (27.0-33.0); MEAN CORPUSCULAR VOLUME 79.5 fl (80.0-96.0); PLATELET COUNT, AUTOMATED 379 10^3/uL (150-450); RED BLOOD COUNT 4.43 10^6/uL (4.00-5.40); WHITE BLOOD COUNT 15.6 10^3/uL (4.0-10.0)
[2021-04-04 17:13] LABS: RSV AMPLIFICATION NEGATIVE (NEGATIVE)
[2021-04-04 17:21] LABS: ACETAMINOPHEN LEVEL 15.1 UG/ML (10.0-30.0); ALBUMIN 3.5 GM/DL (3.2-5.2); ALT/SGPT 25 U/L (12-78); BILIRUBIN,DIRECT < 0.1 MG/DL (0.0-0.2); BILIRUBIN,TOTAL 0.2 MG/DL (0.2-1.0); BLOOD UREA NITROGEN 6 MG/DL (7-18); CALCIUM LEVEL 8.8 MG/DL (8.5-10.1); CARBON DIOXIDE LEVEL 27 MEQ/L (21-32); CHLORIDE LEVEL 110 MEQ/L (98-107); ETHYL ALCOHOL (ETHANOL) 0.004 % (0.000-0.010); GLOMERULAR FILTRATION RATE > 60.0 (>60); GLUCOSE, FASTING 84 MG/DL (70-100); POTASSIUM SERUM 3.6 MEQ/L (3.5-5.1); SALICYLATE LEVEL < 1.7 MG/DL (5.0-30.0); SODIUM LEVEL 144 MEQ/L (136-145); TOTAL PROTEIN 6.8 GM/DL (6.4-8.2)
[2021-04-04] MEDS ORDERED: LIDOCAINE 2% 5ML JELLY UROJET TOP ONE (18:10)
[2021-04-04] MEDS ORDERED: ACETAMINOPHEN TAB 650MG DOSE (2X325MG) PO ONE (18:20)
[2021-04-04 18:49] LABS: AMPHETAMINES LEVEL URINE NEGATIVE (NEGATIVE); BARBITURATES URINE POSITIVE (NEGATIVE); BENZODIAZEPINES URINE POSITIVE (NEGATIVE); CANNABINOIDS URINE POSITIVE (NEGATIVE); COCAINE METABOLITE URINE NEGATIVE (NEGATIVE); METHADONE URINE NEGATIVE (NEGATIVE); OPIATES URINE POSITIVE (NEGATIVE); PHENCYCLIDINE URINE NEGATIVE (NEGATIVE)
[2021-04-04 19:17] VITALS: BP 164/105
[2021-04-04] MEDS ORDERED: LIDOCAINE 5% (LIDODERM) PATCH TD ONE ×2 (20:30)
[2021-04-04] MEDS ORDERED: HYDR-3363 PO (20:35)
[2021-04-04] MEDS ORDERED: **NOTE PATIENT COMMENT** MISC XX SCH (21:00)
[2021-04-05] MEDS ORDERED: **NOTE PATIENT COMMENT** MISC XX ONE ×2 (08:30→09:00)
== END 2021-04-04 20:30 | disposition home or self-care (01) ==
LOC: M ED 15:38
DX: F41.8 Other specified anxiety disorders (principal); I10 Essential (primary) hypertension; J45.909 Unspecified asthma, uncomplicated; E78.5 Hyperlipidemia, unspecified; E07.9 Disorder of thyroid, unspecified; F43.10 Post-traumatic stress disorder, unspecified; G89.29 Other chronic pain; Z88.8 Allergy status to other drugs, medicaments and biological substances; Z91.018 Allergy to other foods; Z91.040 Latex allergy status; Z79.899 Other long term (current) drug therapy; Z79.01 Long term (current) use of anticoagulants

== ENCOUNTER 2021-04-06 14:13 | Inpatient (IN) | payer OTHER ==
[~2021-04-06] VITALS: Ht 162.6 cm; Wt 118.2 kg
[~2021-04-06 14:13] MED LIST changes: +HYDR-3363 PO
[2021-04-06] MEDS ORDERED: hydrALAZINE 20MG/ML 1ML VIAL (J0360 PER 20MG) IV ONE (14:30)
[2021-04-06 15:00] VITALS: BP 144/86
[2021-04-06 15:01] LABS: HEMATOCRIT 35.5 % (36.0-47.0); HEMOGLOBIN 10.8 g/dl (12.0-15.5); MEAN CORPUSCULAR HEMOGLOBIN 24.3 pg (27.0-33.0); MEAN CORPUSCULAR HGB CONC 30.4 g/dl (32.0-36.5); PLATELET COUNT, AUTOMATED 395 10^3/uL (150-450); RED BLOOD COUNT 4.44 10^6/uL (4.00-5.40); WHITE BLOOD COUNT 12.5 10^3/uL (4.0-10.0)
[2021-04-06 15:09] LABS: HCG, SERUM QUALITATIVE NEGATIVE (NEGATIVE)
[2021-04-06 15:15] LABS: ACETAMINOPHEN LEVEL < 2.0 UG/ML (10.0-30.0); ALBUMIN 3.6 GM/DL (3.2-5.2); ALT/SGPT 32 U/L (12-78); BILIRUBIN,DIRECT < 0.1 MG/DL (0.0-0.2); BILIRUBIN,TOTAL 0.3 MG/DL (0.2-1.0); BLOOD UREA NITROGEN 5 MG/DL (7-18); CALCIUM LEVEL 9.3 MG/DL (8.5-10.1); CARBON DIOXIDE LEVEL 27 MEQ/L (21-32); CHLORIDE LEVEL 110 MEQ/L (98-107); CPK CREATINE PHOSPHOKINASE 168 U/L (26-192); CREATININE FOR GFR 0.67 MG/DL (0.55-1.30); ETHYL ALCOHOL (ETHANOL) < 0.003 % (0.000-0.010); GLOMERULAR FILTRATION RATE > 60.0 (>60); GLUCOSE, FASTING 81 MG/DL (70-100); POTASSIUM SERUM 3.9 MEQ/L (3.5-5.1); SALICYLATE LEVEL < 1.7 MG/DL (5.0-30.0); SODIUM LEVEL 144 MEQ/L (136-145); TOTAL PROTEIN 7.1 GM/DL (6.4-8.2)
[2021-04-06 15:41] LABS: AMPHETAMINES LEVEL URINE NEGATIVE (NEGATIVE); BARBITURATES URINE POSITIVE (NEGATIVE); BENZODIAZEPINES URINE POSITIVE (NEGATIVE); CANNABINOIDS URINE POSITIVE (NEGATIVE); COCAINE METABOLITE URINE NEGATIVE (NEGATIVE); METHADONE URINE NEGATIVE (NEGATIVE); OPIATES URINE NEGATIVE (NEGATIVE); PHENCYCLIDINE URINE NEGATIVE (NEGATIVE)
[2021-04-06] MEDS ORDERED: diphenhydrAMINE 50MG/ML VIAL (J1200) IM ONE (16:30)
[2021-04-06] MEDS ORDERED: LORazepam 2 MG/ML VIAL IM ONE (16:30)
[2021-04-06] MEDS ORDERED: HALOPERIDOL 5MG/ML VIAL (J1630 PER 1) IM ONE (16:30)
[2021-04-06] MEDS ORDERED: LORazepam 2 MG/ML VIAL As Ordered ONE (16:35)
[2021-04-06] MEDS ORDERED: ACETAMINOPHEN TAB 650MG DOSE (2X325MG) PO ONE (17:20)
[2021-04-06 18:45] LABS: RSV AMPLIFICATION NEGATIVE (NEGATIVE)
[2021-04-06] MEDS ORDERED: HYDR-3363 PO (19:31)
[2021-04-06] MEDS ORDERED: HYDR12CA PO (19:31)
[2021-04-06] MEDS ORDERED: LEVE750T5 PO (19:31)
[2021-04-06] MEDS ORDERED: CYCL-707 PO (19:31)
[2021-04-06] MEDS ORDERED: VITA200016 PO (19:31)
[2021-04-06] MEDS ORDERED: ZONI100C17 PO (19:31)
[2021-04-06] MEDS ORDERED: PATIENT COMMENT (19:32)
[2021-04-06] MEDS ORDERED: MOM 30ML SUSPENSION UDC PO PRN (22:30)
[2021-04-06] MEDS ORDERED: ALBUTEROL 90 MCG/ACT 8GM HFA INHALER INH PRN (22:30)
[2021-04-06] MEDS ORDERED: traZODone 50 MG TAB PO PRN (22:30)
[2021-04-06] MEDS ORDERED: EPINEPHrine INJ 1 MG/ML 1ML AMP INJ PRN (22:30)
[2021-04-06] MEDS ORDERED: CYCLOBENZAPRINE 10MG TABLET PO PRN (22:30)
[2021-04-06] MEDS ORDERED: hydrOXYzine 25 MG TAB PO PRN (22:30)
[2021-04-06] MEDS ORDERED: zolPIDEM TARTRATE 5 MG TAB PO PRN (22:30)
[2021-04-06] MEDS ORDERED: DOCUSATE SODIUM 100MG CAPSULE PO PRN (22:30)
[2021-04-06] MEDS ORDERED: ACETAMINOPHEN TAB 650MG DOSE (2X325MG) PO PRN (22:30)
[2021-04-06] MEDS ORDERED: OLANZapine ORAL DISINTEGRATING TAB 5MG PO PRN (22:30)
[2021-04-06] MEDS ORDERED: IPRATROPIUM 0.5MG/ALBUTEROL 2.5MG INH SOL UD 3ML (DUONEB) INH PRN (22:30)
[2021-04-06] MEDS ORDERED: MAALOX 30 ML SUSP *UDC PO PRN (22:30)
[2021-04-06 23:46] VITALS: BP 139/86
[2021-04-07] MEDS: QUEtiapine FUMARATE 50MG TAB PO SCH ×2 (08:12→12:09)
[2021-04-07] MEDS: clonazePAM 1 MG TAB PO SCH ×2 (08:12→16:27)
[2021-04-07] MEDS ORDERED: APIXABAN 5 MG TAB (ELIQUIS) PO SCH (09:00)
[2021-04-07] MEDS ORDERED: VITAMIN D 1,000 INTERNATIONAL UNITS TABLET PO SCH (09:00)
[2021-04-07] MEDS ORDERED: levETIRAcetam 250MG TABLET (KEPPRA) PO SCH (09:00)
[2021-04-07] MEDS ORDERED: PRENATAL VITAMINS CHEWABLE TABLET PO SCH (09:00)
[2021-04-07] MEDS ORDERED: hydroCHLOROthiazide 12.5 MG CAPSULE PO SCH (09:00)
[2021-04-07] MEDS ORDERED: NORCO, ANEXSIA 5/325MG TABLET (HYDROcodone/ACETAMINOPHEN) PO SCH (09:00)
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
[2021-04-07] MEDS ORDERED: QUEtiapine FUMARATE 100 MG TAB PO SCH (21:00)
[2021-04-07] MEDS ORDERED: CETIRIZINE (ZyrTEC) 10 MG TAB PO SCH (21:00)
[2021-04-07] MEDS ORDERED: FLUoxetine 20 MG CAP PO SCH (21:00)
[2021-04-07] MEDS ORDERED: PREGABALIN 75 MG CAP(LYRICA) PO SCH (21:00)
[2021-04-07] MEDS ORDERED: ZONISAMIDE 100 MG CAP (ZONEGRAN) PO SCH (21:00)
[2021-04-07] MEDS ORDERED: NIFEdipine 30 MG XL TAB PO SCH (21:00)
== END 2021-04-07 16:33 | disposition home or self-care (01) | DRG 755 ==
LOC: EDBD 14:13 → M ED 14:13 → M ED INP 22:58 → M PSY 23:15
PROVIDERS: ADMIT Psychiatry & Neurology Psychiatry; ATTEND Psychiatry & Neurology Psychiatry
DX: F43.25 Adjustment disorder with mixed disturbance of emotions and conduct (principal); F53.0 Postpartum depression; F41.1 Generalized anxiety disorder; M32.9 Systemic lupus erythematosus, unspecified; F43.10 Post-traumatic stress disorder, unspecified; Z20.822 Contact with and (suspected) exposure to COVID-19; Z87.820 Personal history of traumatic brain injury; Z62.810 Personal history of physical and sexual abuse in childhood; Z91.411 Personal history of adult psychological abuse; Z79.899 Other long term (current) drug therapy; Z79.01 Long term (current) use of anticoagulants; Z88.8 Allergy status to other drugs, medicaments and biological substances; Z91.018 Allergy to other foods; Z91.040 Latex allergy status

== ENCOUNTER → 2021-04-27 | Outpatient (REF) | payer OTHER ==
[~2021-04-27] MED LIST changes: +ERGO500029 PO; +PATIENT COMMENT; +VITA200016 PO; -VITA50005 PO; +ZONI100C17 PO
== END ==
LOC: M LAB REF 14:48
PROVIDERS: ATTEND Physician Assistant
DX: D22.61 Melanocytic nevi of right upper limb, including shoulder (principal)

== ENCOUNTER → 2021-06-30 | Outpatient (CLI) | payer OTHER ==
[~2021-06-30] MED LIST changes: +DOK1CAP4 PO; -DOK1CAP7 PO; -QUET50TA3 PO; +QUET50TA4 PO
== END ==
LOC: M LABSMTC 13:38
PROVIDERS: ATTEND Anesthesiology
DX: Z20.822 Contact with and (suspected) exposure to COVID-19 (principal)

== ENCOUNTER → 2021-07-05 | Outpatient (CLI) | payer OTHER ==
[~2021-07-05] MED LIST changes: +ALBU1.25 INH; +BOTOX THERAPEUTIC 100 UNIT VIAL (J0585 PER 1 UNIT) IM ONE; +BUTA-198 PO; +LAMO100T3 PO; +LAMO100T80 PO; +LAMO150T3 PO; +ONDANSETRON 4 MG ORAL DISINTEGRATING TAB As Ordered ONE; +diazePAM 5MG TABLET As Ordered ONE; +diphenhydrAMINE 25MG CAP As Ordered ONE; +oxyCODONE 5MG TAB As Ordered ONE
== END ==
LOC: M PAIN 10:40
PROVIDERS: ATTEND Anesthesiology
DX: G43.709 Chronic migraine without aura, not intractable, without status migrainosus (principal); L93.0 Discoid lupus erythematosus; I10 Essential (primary) hypertension; G40.909 Epilepsy, unspecified, not intractable, without status epilepticus; E66.01 Morbid (severe) obesity due to excess calories; I27.20 Pulmonary hypertension, unspecified; Z87.891 Personal history of nicotine dependence; Z68.42 Body mass index [BMI] 45.0-49.9, adult; Z79.01 Long term (current) use of anticoagulants; Z79.891 Long term (current) use of opiate analgesic; Z79.899 Other long term (current) drug therapy; Z88.8 Allergy status to other drugs, medicaments and biological substances; Z91.040 Latex allergy status
CPT/HCPCS: 64615; J0585; Q0162

== ENCOUNTER 2021-07-06 19:57 | Inpatient (IN) | payer OTHER ==
[~2021-07-06] VITALS: Ht 162.6 cm; Wt 120.6 kg
[~2021-07-06 19:57] MED LIST changes: -ALBU1.25 INH; -BOTOX THERAPEUTIC 100 UNIT VIAL (J0585 PER 1 UNIT) IM ONE; -BUTA-198 PO; -LAMO100T3 PO; -LAMO100T80 PO; -LAMO150T3 PO; -ONDANSETRON 4 MG ORAL DISINTEGRATING TAB As Ordered ONE; -diazePAM 5MG TABLET As Ordered ONE; -diphenhydrAMINE 25MG CAP As Ordered ONE; -oxyCODONE 5MG TAB As Ordered ONE
[2021-07-06] MEDS ORDERED: LAMO100T80 PO ×3 (20:09)
[2021-07-07] VITALS (8 sets, daily range): BP systolic 121–173; BP diastolic 29–92
[2021-07-07 02:08] LABS: HEMATOCRIT 32.7 % (36.0-47.0); HEMOGLOBIN 10.3 g/dl (12.0-15.5); MEAN CORPUSCULAR HEMOGLOBIN 24.3 pg (27.0-33.0); MEAN CORPUSCULAR HGB CONC 31.5 g/dl (32.0-36.5); MEAN CORPUSCULAR VOLUME 77.3 fl (80.0-96.0); PLATELET COUNT, AUTOMATED 374 10^3/uL (150-450); RED BLOOD COUNT 4.23 10^6/uL (4.00-5.40); WHITE BLOOD COUNT 14.1 10^3/uL (4.0-10.0)
[2021-07-07 02:28] LABS: ANISOCYTOSIS 1+; ATYPICAL LYMPH 1 % (0-5); BASOPHILS 1 % (0-1); EOSINOPHILS 5 % (0-3); LYMPHOCYTES 30 % (16-44); MONOCYTES 7 % (0-5); NEUTROPHILS 56 % (28-66); PLATELET CLUMPS SMALL AMT; PLATELET ESTIMATE NORMAL (NORMAL)
[2021-07-07 02:29] LABS: HYPOCHROMASIA 1+; MICROCYTOSIS 1+
[2021-07-07 02:30] LABS: SMUDGE CELLS 1+
[2021-07-07 02:31] LABS: OVALOCYTES 1+
[2021-07-07] MEDS ORDERED: methylPREDNISolone 125MG 2ML VIAL IV ONE (02:35)
[2021-07-07] MEDS ORDERED: RACEPINEPHrine 2.25 % UD INHA INH ONE (02:35)
[2021-07-07] MEDS ORDERED: ACETAMINOPHEN TAB 650MG DOSE (2X325MG) PO ONE (02:35)
--- NOTE | 2021-07-07 02:44 | REPVR ---
PROCEDURE INFORMATION: Exam: XR Chest Exam date and time: 07/07/2021 1:39 AM Age: 31 years old Clinical indication: Other: Dyspnea; Additional info: Dyspnea/cough TECHNIQUE: Imaging protocol: XR of the chest. Views: 1 view. COMPARISON: 1. CT Chest with contrast 2021-04-02 23:30 2. CR PORTABLE CHEST X-RAY 2021-04-02 22:10 3. CR PORTABLE CHEST X-RAY 2021-02-23 06:53 4. CR PORTABLE CHEST X-RAY 2021-02-22 20:35 FINDINGS: Lungs: Unremarkable. No consolidation. Pleural spaces: Unremarkable. No pleural effusion. No pneumothorax. Heart/Mediastinum: Unremarkable. No cardiomegaly. Bones/joints: Unremarkable. IMPRESSION: No acute findings. Electronically signed by: Rajan Owusu On 07/07/2021 02:44:14 AM
[2021-07-07 02:46] LABS: RSV AMPLIFICATION NEGATIVE (NEGATIVE)
[2021-07-07 02:58] LABS: ALBUMIN 3.2 GM/DL (3.2-5.2); ALT/SGPT 30 U/L (12-78); BILIRUBIN,DIRECT < 0.1 MG/DL (0.0-0.2); BILIRUBIN,TOTAL 0.1 MG/DL (0.2-1.0); BLOOD UREA NITROGEN 9 MG/DL (7-18); CALCIUM LEVEL 8.8 MG/DL (8.5-10.1); CARBON DIOXIDE LEVEL 28 MEQ/L (21-32); CHLORIDE LEVEL 105 MEQ/L (98-107); CK-MB VALUE MASS < 1.0 NG/ML (<3.6); CPK CREATINE PHOSPHOKINASE 45 U/L (26-192); CREATININE FOR GFR 0.68 MG/DL (0.55-1.30); GLOMERULAR FILTRATION RATE > 60.0 (>60); GLUCOSE, FASTING 97 MG/DL (70-100); MB/CK RELATIVE INDEX 2.22 (< OR =4); POTASSIUM SERUM 3.4 MEQ/L (3.5-5.1); SODIUM LEVEL 141 MEQ/L (136-145); TOTAL PROTEIN 6.6 GM/DL (6.4-8.2); TROPONIN I < 0.02 NG/ML (< 0.10)
[2021-07-07] MEDS ORDERED: cefTRIAXone SOD 2 GM in D5W MINI-BAG PLUS 50 ML IV ONE (03:35)
[2021-07-07] MEDS ORDERED: NS 1,000 ML IV ONE ×2 (04:15→17:50)
[2021-07-07] MEDS ORDERED: LIDOCAINE VISCOUS 2% SOLN 15ML UDC PO ONE (04:25)
[2021-07-07] MEDS ORDERED: LAMO150T3 PO (04:47)
[2021-07-07] MEDS ORDERED: LAMO100T3 PO (04:47)
[2021-07-07] MEDS ORDERED: BUTA-198 PO (04:47)
[2021-07-07] MEDS ORDERED: ALBU1.25 INH (04:47)
[2021-07-07] MEDS ORDERED: HOME MED LIST COMPLETE! XX SCH (04:50)
[2021-07-07 05:14] LABS: AMPHETAMINES LEVEL URINE NEGATIVE (NEGATIVE); BARBITURATES URINE POSITIVE (NEGATIVE); BENZODIAZEPINES URINE POSITIVE (NEGATIVE); CANNABINOIDS URINE NEGATIVE (NEGATIVE); COCAINE METABOLITE URINE NEGATIVE (NEGATIVE); METHADONE URINE NEGATIVE (NEGATIVE); OPIATES URINE POSITIVE (NEGATIVE); PHENCYCLIDINE URINE NEGATIVE (NEGATIVE)
[2021-07-07 06:05] LABS: C REACTIVE PROTEIN QUANTITATIV 3.58 MG/DL (0.00-0.30); COMPLEMENT C3 166 MG/DL (90-180); COMPLEMENT C4 46 MG/DL (10-40); FERRITIN 19 NG/ML (8-252); IRON (FE) 25 UG/DL (50-170); MAGNESIUM LEVEL 1.8 MG/DL (1.8-2.4); PERCENT SATURATION 6.6 % (13.2-45.0); TOTAL IRON BINDING CAPACITY 376 UG/DL (250-450)
[2021-07-07 06:25] LABS: ERYTHROCYTE SEDIMENTATION RATE 52 mm/hr (0-20)
[2021-07-07] MEDS ORDERED: NS 1,000 ML IV SCH ×2 (06:30→11:15)
[2021-07-07] MEDS ORDERED: PILL CUTTER 1 EACH XX PRN (07:00)
--- NOTE | 2021-07-07 07:27 | HPEPDOC ---
General Date of Admission 07/07/21 Date of Service: Jul 07, 2021 Chief Complaint The patient is a 31-year-old female admitted with a reason for visit of SOB. Source: Patient History of Present Illness Ghada Akers is a 31-year-old female with significant history of TBI, sei zures, lupus, obesity, asthma, anxiety and right upper extremity DVT who presents with shortness of breath to the ER. Patient reports that in early June she was in [place] and treated for pneumonia and was discharged on the to come back to [facility]. Patient reports that she had some reactivity sensation describing "throat closing up" and went to [facility] for 2 days treated for an asthma exacerbation. Patient reports that again she went home and had similar sensations which is why she returns the ED today. She complains of shortness of breath and sore throat. Patient reports that she has this with asthma exacerbations but also when she has food allergy ingestion. ED treated initially for stridor but patient was able to maintain saturation and actually was able to walk to the bathroom in ED. Patient reports that she did not knowingly ingest any foods that she is allergic to however she reports that her does the grocery shopping and cooking and she cannot be sure. Patient does report improvement in throat sensation after viscous lidocaine. Patient describes that recently she has been having productive cough with green sputum, feverishness and shortness of breath unrelieved by her inhaler since being released from [facility]. She does describe anxiety component as well. She reports depression regarding chronic fatigue and chronic pain with lupus and she is focused on getting her who is active duty a work note since she is in hospital and he must stay home with the 3 kids. Patient adamant that she does not want to have steroids. She reports history of prolonged steroid use with lupus which caused her much struggle. She describes history of cardiomegaly but denies CHF-Questionable if pulmonary hypertension. She reports that during an asthma exacerbation in September 2020 she was fluid overloaded had an echo completed and required Lasix dosing at that time. Patient reports that she has been compliant with all her medications including Eliquis twice daily for a right upper extremity DVT. Of note, PCR neg. UDS + benzos, barbiturates and opiates. chest x-ray nonacute. Patient with tachypnea, tachycardia, leukocytosis, and fever during admission. Patient continues saturation 97% on room air. BNP pending pro-Amgdy/lactic pending. Patient will be admitted for further evaluation management presenting concerns. Home Medications Scheduled Apixaban (Eliquis) 5 Mg Tablet, 5 MG PO BID, (Reported) Belimumab (Benlysta) 200 Mg/1 Ml Auto.injct, 200 MG SC QWEEK, (Reported) Sunday Cetirizine HCl (Cetirizine HCl) 10 Mg Tablet, 10 MG PO DAILY, (Reported) Clonazepam (Clonazepam) 0.5 Mg Tablet, 1 MG PO TID, (Reported) Fluoxetine Hcl (Fluoxetine HCl) 40 Mg Capsule, 80 MG PO DAILY, (Reported) Hydrochlorothiazide (Hydrochlorothiazide) 12.5 Mg Capsule, 12.5 MG PO DAILY, (Reported) Hydrocodone/Acetaminophen (Hydrocodone-Acetamin 5-325 mg) 1 Each Tablet, 1 TAB PO BID, (Reported) Lamotrigine (Lamotrigine) 150 Mg Tablet, 150 MG PO DAILY, (Reported) Lamotrigine (Lamotrigine) 100 Mg Tablet, 100 MG PO QHS, (Reported) Nifedipine (Nifedipine ER) 30 Mg Tablet.er, 30 MG PO DAILY, (Reported) Pregabalin (Pregabalin) 75 Mg Capsule, 75 MG PO QHS, (Reported) Quetiapine Fumarate (Quetiapine Fumarate) 300 Mg Tablet, 300 MG PO QHS, (Reported) Quetiapine Fumarate (Quetiapine Fumarate) 50 Mg Tablet, 50 MG PO BID, (Reported) TAKE QAM AND AT NOON Scheduled PRN Albuterol Sulfate (Proair Hfa) 8.5 Gm Hfa.aer.ad, 2 PUFF INH Q4H PRN for SHORTNESS OF BREATH, (Reported) Albuterol Sulfate (Albuterol Sulfate) 1.25 Mg/3 Ml Vial.neb, 1.25 MG INH Q4H PRN for SHORTNESS OF BREATH, (Reported) Butalb/Acetaminophen/Caffeine (Hykqmb-Trzpoqyt-Zhpl 50-325-40) 1 Each Tablet, 1 TAB PO Q4H PRN for MIGRAINE, (Reported) Epinephrine (Epipen 2-Gunner) 0.3 Mg/0.3 Ml Auto.injct, 0.3 MG IM ASDIRECTED PRN for ANAPHYLAXIS, (Reported) Zolpidem Tartrate (Zolpidem Tartrate) 10 Mg Tablet, 10 MG PO QHS PRN for INSOMNIA, (Reported) Allergies Coded Allergies: Kiwi (Verified Allergy, Severe, anaphylaxsis, 07/06/21) avocado (Verified Allergy, Severe, anaphylaxsis, 07/06/21) banana (Verified Allergy, Severe, anaphylaxis, 02/22/21) hydroxychloroquine (Verified Allergy, Severe, anaphylaxis, 11/22/20) latex (Verified Allergy, Mild, rash, 11/22/20) enoxaparin (Verified Adverse Reaction, Intermediate, LOWERS SEIZURE THRESHOLD, 11/22/20) ketorolac (Verified Adverse Reaction, Intermediate, seizures, 11/22/20) methocarbamol (Verified Adverse Reaction, Intermediate, seizures, 11/22/20) famotidine (Verified Adverse Reaction, Mild, vomiting, 11/22/20) promethazine (Verified Adverse Reaction, Mild, vomiting, 11/22/20) Past Medical History Medical History TBI, seizures, lupus, obesity, asthma, anxiety and right upper extremity DVT Family History Significant Family History: No pertinent family hx Social History * Smoker: Denies Alcohol: Denies Drugs: denies Recent Travel/Sick Contacts: Reports: Recent travel ([place] first of June) 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 She reports that she often goes to [place] to assist her mother who works in the . Patient is bilingual Nepali. A-FIB/CHADSVASC A-FIB History Current/History of A-Fib/PAF?: No Current PO Anticoag Therapy: No Review of Systems Constitutional: Reports: Chills, Fatigue; Denies: Fever, Night Sweats Eyes: Denies: Pain, Vision change ENT: Reports: Sore Throat; Denies: Head Aches, Ear Pain, Dysphagia Skin: Denies: Rash, Lesions, Breakdown Pulmonary: Reports: Dyspnea, Cough, Pleuritic Chest Pain Cardiovascular: Denies: Palpitations, Orthopnea, Paroxysmal Noc. Dyspnea, Lt Headedness Gastrointestinal: Denies: Nausea, Vomiting, Abdominal Pain, Diarrhea Genitourinary: Denies: Dysuria, Frequency, Incontinence, Retention Hematologic: Denies: Bruising, Bleeding Excessively Musculoskeletal: Denies: Neck Pain, Back Pain, Joint Pain, Muscle Pain, Spasms Neurological: Denies: Weakness, Numbness, Change in speech, Confusion Psych: Reports: Mood Normal; Denies: Depression, Memory Issues Physical Examination General Exam: Positive: Alert, No Acute Distress Eye Exam: Positive: PERRLA, Conjunctiva & lids normal, EOMI; Negative: Sclera icteric ENT Exam: Positive: Atraumatic, Mucous membr. moist/pink, Pharynx Normal Neck Exam: Positive: Supple; Negative: JVD, thyromegaly Chest Exam: Positive: Rales Heart Exam: Positive: Tachycardic, Regular Rhythm, Normal S1, Normal S2; Negative: Murmurs, Rubs Telemetry: Positive: No significant arrhythmia Abdomen Exam: Positive: Normal bowel sounds, Soft, Other; Negative: Tenderness, Hepatospenomegaly Extremity Exam: Positive: Normal pulses; Negative: Clubbing, Cyanosis, Edema Skin Exam: Positive: Nl turgor and temperature; Negative: Breakdown, Lesion Neuro Exam: Positive: Normal Gait, Normal Speech, Cranial Nerves 3-12 NL, Reflexes 2+ Psych Exam: Positive: Mental status NL, Mood NL, Oriented x 3 Vital Signs Vital Signs Date Time Temp Pulse Resp B/P (MAP) Pulse Ox O2 Delivery O2 Flow Rate FiO2 07/07/21 05:01 133 18 126/76 (93) 95 Room Air 07/07/21 03:42 2.0 07/06/21 19:57 100.1 Laboratory Data Labs 24H Laboratory Tests 2 07/07/21 01:44: Urine Opiates Screen POSITIVEH, Urine Methadone Screen NEGATIVE, Urine Barbiturates Screen POSITIVEH, Urine Phencyclidine Screen NEGATIVE, Urine Amphetamines Screen NEGATIVE, Urine Benzodiazepines Screen POSITIVEH, Urine C ocaine Metabolite Screen NEGATIVE, Urine Cannabinoids Screen NEGATIVE 07/07/21 01:45: Neutrophils (%) (Auto) , Nucleated Red Blood Cells % (auto) 0.0, Neutrophils 56, Lymphocytes (Manual) 30, Monocytes (Manual) 7H, Eosinophils (Manual) 5H, Basophils (Manual) 1, Atypical Lymphocytes 1, Hypochromasia 1+, Anisocytosis 1+, Microcytosis 1+, Ovalocytes 1+, Smudge Cells 1+, Platelet Estimate NORMAL, Clumped Platelets SMALL AMT, Anion Gap 8, Glomerular Filtration Rate > 60.0, Calcium Level 8.8, Total Bilirubin 0.1L, Direct Bilirubin < 0.1, Aspartate Amino Transf (AST/SGOT) 15, Alanine Aminotransferase (ALT/SGPT) 30, Alkaline Phosphatase 111, Total Creatine Kinase 45, Creatine Kinase MB < 1.0, Creatine Kinase MB Relative Index 2.22, Troponin I < 0.02, Total Protein 6.6, Albumin 3.2, Albumin/Globulin Ratio 0.9L, Coronavirus (COVID-19)(PCR) NEGATIVE, Influenza Type A (RT-PCR) NEGATIVE, Influenza Type B (RT-PCR) NEGATIVE, Respiratory Syncytial Virus (PCR) NEGATIVE 07/07/21 02:04: POC pH (Misc Panel) 7.473H, POC Base Excess (Misc Panel) 5.0H, POC Saturated Percent O2 (Misc) 95, POC pO2 (Misc Panel) 70.0L, POC pCO2 (Misc Panel) 38.4, POC HCO3 (Misc Panel) 28.1H, POC Total CO2 (Misc Panel) 29.0H CBC/BMP Laboratory Tests 07/07/21 01:45 Assessment/Plan 1. SOB secondary to presumed pneumonia in patient with baseline asthma: Pt with recent inpatient pna treatment in [place] first half of june and recent asthma treatment in [place] 07/02-07/04. She arrived tachycardic, tachypneic and with leukocytosis to ED in setting of recent asthma treatment 2 days ago and albuterol use. Possible hypoventilation component given obesity as well as anxiety component may be contributing to sensations of dyspnea. -Monitor patient, telemetry/continuous pulse ox -Empiric coverage with Zosyn and vanc given recent hospital stays. Will avoid Levaquin at present given patient with prolonged QTC of 567 on EKG. -Scheduled breathing treatments. -Mucolytic schedule -Sputum culture. -A.m. labs, follow-up cultures. -Check pro calcitonin and consider de-escalation accordingly. 2. Lupus: May contributed to overall picture with systemic response. CRP elevated. Check ESR and complement. Patient reports her baseline for pain with ability for activity 5 out of 10. 3. Hx of fluid Overload: Reported per patient in setting of steroid use in past treatment in September 2020 at "[facility]. No recent echo on file. Will check BTNP although lower suspicion for overload. 4. Sinus tachycardia: Likely secondary to demand given above and albuterol. Given this will opt for Atrovent and Xopenex for breathing treatments. 5. Hypertension: Monitor in setting of possible infection. Continue home medications. 6. History of seizures: Continue home medications Lamictal and clonazepam. Parameters given breathing/possibility of infection. 7. Anxiety/depression: In setting of chronic conditions. Continue home me dications with parameters. Will hold Seroquel given patient's QTC at present. 8. Obesity: Complicates care DVT: Eliquis CODE STATUS: Full Disposition: Pending cultures transition to p.o. antibiotics and DC home as patient tolerating room air. Plan / VTE VTE Prophylaxis Ordered?: Yes GURDEEP ESPINOZA NP Jul 07, 2021 05:17
[2021-07-07] MEDS ORDERED: ISOVUE-370 76% 100ML VIAL As Ordered ONE (07:52)
[2021-07-07] MEDS: LEVALBUTEROL 1.25 MG/0.5 ML CONCENTRATE NEB INH SCH ×4 (07:59→20:03)
[2021-07-07] MEDS: IPRATROPIUM 0.02% SOLN 0.5MG 2.5ML NEB INH SCH ×3 (07:59→15:48)
[2021-07-07] MEDS: PIPERACILLIN/TAZOBACTAM SOD 3.375 GM in D5W MINI-BAG PLUS 50 ML IV SCH ×3 (08:03→20:34)
[2021-07-07] MEDS: APIXABAN 5 MG TAB (ELIQUIS) PO SCH ×2 (08:03→20:35)
[2021-07-07] MEDS: CETIRIZINE (ZyrTEC) 10 MG TAB PO SCH (08:04)
[2021-07-07] MEDS: lamoTRIgine 100MG TAB PO SCH (08:14)
[2021-07-07 08:58] LABS: VITAMIN B12 LEVEL 850 PG/ML (247-911)
[2021-07-07 08:59] LABS: FOLATE 10.6 NG/ML (>5.4)
[2021-07-07] MEDS ORDERED: clonazePAM 1 MG TAB PO SCH ×2 (09:00→21:00)
[2021-07-07] MEDS ORDERED: FLUoxetine 20 MG CAP PO SCH (09:00)
[2021-07-07] MEDS ORDERED: hydroCHLOROthiazide 12.5 MG CAPSULE PO SCH (09:00)
[2021-07-07] MEDS ORDERED: NORCO, ANEXSIA 5/325MG TABLET (HYDROcodone/ACETAMINOPHEN) PO SCH (09:00)
--- NOTE | 2021-07-07 09:01 | REP ---
INDICATION: SOB / Cough COMPARISON: 04/02/2021 TECHNIQUE: Axial contrast enhanced images from the thoracic inlet to the upper abdomen using pulmonary embolus technique with multiplanar re-formations. 75 ml Isovue 370 intravenous contrast material administered without complication. This CT examination was performed using the following dose reduction techniques: Automated exposure control, adjustment of mA and/or kv according to the patient's size, and use of iterative reconstruction technique. FINDINGS: Evaluation is limited due to technical factors and motion. No obvious pulmonary embolus is identified. Thoracic aorta without aneurysm or dissection. Heart is upper limits of normal without significant pericardial effusion. Bilateral lung muniz are relatively well aerated and without significant consolidation. Very subtle left basilar atelectasis cannot be excluded. No effusion. No pneumothorax. Tracheobronchial tree is patent. No obvious adenopathy. IMPRESSION: No obvious evidence for pulmonary embolus. No obvious mediastinal or pleural parenchymal process. <Electronically signed by Hossein Ingram > 07/07/21 0857
[2021-07-07] MEDS ORDERED: ALBUTEROL SULFATE 2.5 MG/0.5 ML INH NEB SOLN INH PRN (09:10)
[2021-07-07] MEDS ORDERED: POTASSIUM CHLORIDE 10 MEQ SR TABLET PO ONE (09:30)
[2021-07-07] MEDS ORDERED: LR 1,000 ML IV ONE (09:30)
--- NOTE | 2021-07-07 09:36 | REPVR ---
PROCEDURE INFORMATION: Exam: CT Neck With Contrast Exam date and time: 07/07/2021 8:27 AM Age: 31 years old Clinical indication: Mass, lump, or swelling in neck; Other: Swelling around throat; Additional info: Neck swelling, difficulty breathing TECHNIQUE: Imaging protocol: Computed tomography images of the neck with contrast. Radiation optimization: All CT scans at this facility use at least one of these dose optimization techniques: automated exposure control; mA and/or kV adjustment per patient size (includes targeted exams where dose is matched to clinical indication); or iterative reconstruction. Contrast material: ISOVUE 370; Contrast volume: 100 ml; Contrast route: INTRAVENOUS (IV); COMPARISON: CT Chest with contrast 04/02/2021 11:30 PM FINDINGS: Paranasal sinuses: There is moderate sinus disease. Nasopharynx: Unremarkable. Oropharynx: Unremarkable. No significant tonsillar enlargement. Hypopharynx: Unremarkable. Larynx: Unremarkable. Normal epiglottis. Retropharyngeal space: Unremarkable. Submandibular/Parotid glands: Normal. Glands are normal in size. Thyroid: Normal. No enlarged or calcified nodules. Lymph nodes: Unremarkable. No lymphadenopathy. Trachea: Visualized trachea is unremarkable. Lungs: Unremarkable as visualized. Bones/joints: Unremarkable. No acute fracture. Soft tissues: Unremarkable. No significant soft tissue swelling. IMPRESSION: No acute findings. Electronically signed by: Devonte Martinez On 07/07/2021 09:36:05 AM
[2021-07-07 09:51] LABS: NT-PRO BNP 30 PG/ML (<125)
[2021-07-07] MEDS ORDERED: MAG SULF 1GM/100ML (MAG RUN) 1 GM in IV 1 EA IV ONE (10:00)
[2021-07-07] MEDS ORDERED: VANCOMYCIN HCL 1,000 MG, VIAL MATE ADAPTER 1 EACH in NS 250 ML IV ONE (10:00)
--- NOTE | 2021-07-07 10:50 | IPNPDOC ---
Text Note Date of Service The patient was seen on 07/07/21. NOTE Subjective: 31-year-old female admitted early this morning with presumed pneumonia. Patient has a 4-day history of progressively worsening breathing. She was seen at [facility] where she was given some nebulizer treatments and told to go to a larger facility in the event that her symptoms worsened. Her symptoms have continued to progress and she presented to [facility] ED last night with difficulty breathing and was found to have an elevated white blood cell count, lactic acidosis, and per the night team was thought to have a pneumonia. Currently patient is complaining of shortness of breath, throat swelling, palpitations, and chest pressure. She states she has had the palpitations since 07/04. Of note, she does state that she has been intubated for allergies in the past and feels like her throat is swollen in the same way that it was previously. She does not feel significantly better since being admitted, she did receive some racemic epinephrine that did help for about 20 minutes but after that she did not experience much relief. She still feels as though she is short of breath. Review of systems: Pt denies headache, pain on neck movement, abdominal pain, nausea/vomiting, dysuria, tingling. Patient says that she has pressure and chest pain that has been going on since the 04 of july and has associated palpitations. Pt has SOB and pleuritic chest pain. Pt complains of feeling like her throat is swelling up and she can't bring in air as easily. Pt also says she has some mild numbness in her left leg that is new onset. Physical exam: General: Obese female laying back in bed with some moderate difficulty breathing in mild acute distress speaking in complete sentences. HEENT: NC, AT, EOMI, no scleral icterus, mucous membranes moist. Mallampati class III visualization of throat. No overt erythema or uvular deviation. Heart: Tachycardic rate, regular rhythm normal S1 and S2 auscultated. On monitor, rate is tachycardic and regular, EKG showing QT prolongation but no ST or T wave abnormalities suggestive of ischemia Lungs: Clear to auscultation bilaterally with full breath sounds. No wheezes, crackles, rhonchi. No dullness to percussion. Mild abdominal retractions no subcostal or supraclavicular retractions present. ABD: Obese, soft, nontender, nondistended. Bowel sounds present. Unable to appreciate any hepatosplenomegaly. No masses or ecchymosis. Neuro: No weakness or loss of sensation in the extremities. Extremities: No edema in the legs. Vascular: +2/4 posterior tibial and dorsalis pedis pulses. Psych: Alert and oriented x4. No signs of ena. Imaging: CT neck with contrast- as reported: "IMPRESSION: No acute findings." CTA of the chest - as reported: "IMPRESSION: No obvious evidence for pulmonary embolus. No obvious mediastinal or pleural parenchymal process." CXR as reported: "IMPRESSION: No acute findings." Assessment: 31 year old female with past medical history of TBI, seizures, lupus, obesity, MALVIN, asthma, bipolar disorder, anxiety and right upper extremity DVT presenting with chief complaint of SOB, throat swelling, and hypoxia of unclear etiology. Plan: #. Hypoxia -Hypoxia on RA enough that she required 2 L NC. It appears she does have a history of MALVIN and it is possible to get her O2 sats up. -CTA showing no PE, pneumonia, or overt cause of hypoxia. Respiratory panel negative. -Troponins negativex2, no EKG changes suggestive for ischemia. -CT neck similarly non-diagnostic for any infectious or inflammatory signs of upper airway obstruction. -ABG showing respiratory alkalosis. Narcotics are now held, incentive spirometry ordered. -Echo with bubble study ordered in case of shunt. -Sickle cell screen negative. -Pulmonology, Dr. Solano, consulted, recommendations appreciated. #. Subjective throat swelling -No wheezing, angioedema, rash, or other signs consistent with anaphylaxis. Will continue to monitor for same. -CT neck negative -Solumedrol 60 mg TID in case of possible allergic rxn. -C3 normal, C4 elevated, C2 pending. -F/u with allergy/immunology outpatient #. Leukocytosis -No clear source of infection, temp 100.1 (afebrile), ESR, CRP, lactic acid e levated. No signs of hypo-perfusion otherwise though, could be type B lactic acidosis. (Patient is technically SIRS positive) -CXR, CTA chest, CT neck negative for any diagnostic pathology. -Covering with Vanc/Zosyn. 3L IVF given in case of sickle cell crisis. -Blood cultures x2, UA ordered, No URI pathology identified. -Procalcitonin WNL -Echo ordered given possible IVDU hx and hypoxia above. #. Tachycardia -EKG showing Sinus tachycardia in 130s, most recent QTC [address]/T wave changes. -Possibly secondary to infection, covering w/ broad spectrum abx. No clear source at this point. -Thyroid studies non-diagnostic for tachycardia. -HCG negative. #. Lactic acidosis -No additional signs of global hypoperfusion outside of the hypoxia, will hydrate patient but low clinical suspicion this is 2/2 sepsis. #. MALVIN -Patient is seeing director intelligence analysis programs in [place] for work up of MALVIN -MALVIN protocol ordered #. QTC prolongation - Significantly elevated -Holding any QT prolonging agents. #. SLE -May be a result of inflammatory response from lupus, though there are no muco- cutaneous signs of disease. -Receives Belimumab outpatient -ESR, CRP elevated. #. Positive tox screen -Patient is on these outpatient. -Narcotics held 2/2 respiratory status #. HTN -Continue HCTZ, Nifedpine #. Hx of seizures -Lamotrigine 150 mg AM, 100 mg QHS #. Asthma -Hold home albuterol -Xoponex/ipratropium bromide #. Bipolar depression -Continue lamotrigine -Holding Seroquel in light of possible declining mental status and QT prolongation. #. Anxiety/depression disorder -Fluoxetine held, clonazepam held 2/2 decreasing mental status and respiratory depression #. Hx of neuropathy -Continue lyrica #. Hx of migraines -Holding Fiorcet #. Insomnia -Hold Ambien 2/2 respiratory depression #. Seasonal Allergies -Continue home cetirizine #. DVT prophylaxis: Eliquis BID for RUE DVT hx. Disposition: Admit to ICU, r VS,Fishbone, I+O VS, Fishbone, I+O Laboratory Tests 07/07/21 01:45 Vital Signs Date Time Temp Pulse Resp B/P (MAP) Pulse Ox O2 Delivery O2 Flow Rate FiO2 07/07/21 08:07 20 07/07/21 06:15 144 165/93 (117) 95 Nasal Cannula 3.0 07/06/21 19:57 100.1 GME ATTESTATION GME ATTESTATION My faculty preceptor for this patient encounter was physically present during the encounter and was fully available. All aspects of the patient interview, examination, medical decision making process, and medical care plan development were reviewed and approved by the faculty preceptor. The faculty preceptor is aware and concurs with the plan as stated in the body of this note and will attest to such by his/her cosignature. ATTENDING NOTE I, J Luis Forbes, have independently examined this patient and performed my own physical exam, as well as reviewed the documentation and edited where necessary. I have discussed in detail with the resident / student the findings and plan of treatment as documented by the resident / student and edited their note. I agree with their findings and treatment plan and have edited their documentation. I will continue to follow the patient during this hospital stay. RUSH ESPINAL OMS-3 Jul 07, 2021 10:50 JANA JONES DO Jul 07, 2021 12:17 J LUIS FORBES MD Jul 07, 2021 16:00
[2021-07-07 11:08] LABS: ABG HCO3 23.2 MEQ/L (22.0-26.0); ABG O2 SATURATION 91.9 % (95.0-99.0); ABG PARTIAL PRESSURE CO2 32.8 mmHg (35.0-45.0); ABG PARTIAL PRESSURE O2 61.5 mmHg (75.0-100.0); ABG STANDARD HCO3 24.4 MEQ/L (22.0-26.0); ABG TOTAL CO2 24.2 MEQ/L (22.0-29.0); ABG pH (ARTERIAL) 7.468 UNITS (7.350-7.450)
[2021-07-07] MEDS: guaiFENesin 200 MG TAB PO SCH ×2 (12:01→21:00)
[2021-07-07] MEDS: NIFEdipine 30 MG XL TAB PO SCH (12:01)
[2021-07-07] MEDS ORDERED: methylPREDNISolone 125MG 2ML VIAL IV SCH (14:00)
[2021-07-07] MEDS: VANCOMYCIN HCL 1,000 MG, VIAL MATE ADAPTER 1 EACH in NS 250 ML IV SCH ×3 (14:23→20:34)
[2021-07-07] MEDS: methylPREDNISolone 125MG 2ML VIAL IV SCH ×2 (14:24→22:00)
[2021-07-07] MEDS: D5W/0.45% SODIUM CHLORIDE 1,000 ML IV SCH ×2 (14:24→17:10)
[2021-07-07 14:28] LABS: FREE T4 0.65 NG/DL (0.76-1.46); THYROID STIMULATING HORMONE 0.696 uIU/ML (0.358-3.740); TOTAL T3 49.3 NG/DL (60.0-181.0); TROPONIN I < 0.02 NG/ML (< 0.10)
--- NOTE | 2021-07-07 16:36 | CR.PDOC ---
General Date of Consultation: Jul 07, 2021 Referring Provider: EITAN DANIEL MD Attending Physician: TOÑITO SOLANO MD Consultation REASON FOR CONSULTATION/CHIEF COMPLAINT: SOB, Hypoxia of unknown origin. HISTORY OF PRESENT ILLNESS Pt is 31YO F who presented to ER last night w 4 day Hx worsening SOB. She c/o recent tongue swelling and throat discomfort. She was recently assessed for these sx at [facility] and treated for an asthma exacerbation with nebulizer therapy, but sx did not improve. She was concerned about possible pneumonia and so presented now. Pt has Hx of similar sx with asthma exacerbations and food allergies including banana and kiwi, but denies recent ingestion of these. Admits to productive cough with green sputum and having no relief of SOB from at home inhalers. Patient admits she had been using her nebulizers more frequently than prescribed recently given her symptoms. She has been anxious recently, and has chronic pain in large joints 2/2 lupus. On initial evaluation, Pt found to have tachypnea, tachycardia, leukocytosis, a nd low grade fever. Was given IV steroids and racemic Epi in ER w brief relief of sx. ALLERGIES: Please see below. HOME MEDICATIONS: Please see below. PAST MEDICAL HISTORY: 1. Asthma-follows w Pulmonology in [place] 2. Anxiety 3. Lupus 4. right upper extremity DVT 5. Obesity 6. TBI 7. Seizures FAMILY HISTORY No pertinent family hx SOCIAL HISTORY Children: 3 No Hx tobacco use No Hx ETOH No Hx Illicit drug use Recent travel to [place] this month. REVIEW OF SYSTEMS HEENT: Admits to throat soreness. Denies vision changes, difficulty swallowing. CARDIOVASCULAR: Denies chest pain. Admits to mild palpitations. RESPIRATORY: Admits to SOB. GENITOURINARY: Denies dysuria or hematuria MUSCULOSKELETAL: Denies weakness. GASTROINTESTINAL: Denies abdominal pain. SKIN: Denies rash, lesions. Extremities: Admits to mild swelling in legs. PHYSICAL EXAMINATION VITAL SIGNS: Please see below. GENERAL APPEARANCE: Afebrile, difficulty speaking full sentences 2/2 to strained breathing. HEENT: PERRLA, oral cavity moist, posterior pharynx non-erythematous. Trachea midline, no cervical lymphadenopathy or JVD. CARDIOVASCULAR: Tachycardic rate 130s, regular rhythm. No murmur, rubs, or gallops. Distal pulses 2+ b/l. Capillary refill intact. RESPIRATORY: Equal breath sounds b/l, mild scattered expiratory wheezes in upper lobes. No rhonchi or crackles. ABDOMEN: Soft, non-tender, non-distended, normoactive bowel sounds. EXTREMITIES: Mild non-pitting edema b/l legs. NEUROLOGICAL: Sensation intact b/l. PSYCHIATRIC: A+Ox3. LABORATORY DATA: Please see below. ASSESSMENT/PLAN 1. Neuro: C/w home Lyrica dose for neuropathy. C/w home dose lamotrigine for seizure prophylaxis and bipolar disorder. 2. Pulmonary: Hx Asthma- c/w Xoponex/ipratropium. Incentive spirometry ordered. C/w solumedrol 60 mg Q8H, Mucinex, and Tylenol. CT neck negative, and no signs of anaphylaxis. CXR negative and CTA did not show evidence of PE or pNA. Maintaining on 2L O2 by nasal cannula. Sats drop when Pt starts to fall asleep and rise when alert. MALVIN suspected, she follows with pulmonology in [place] who is working this up with sleep testing ordered. Hypoxia likely 2/2 MALVIN and sedat ing medications as well as atelectasis with poor inspiratory effort. Respiratory PCR negative. Sickle cell screen negative. C/w home cetirizine for seasonal allergies. Holding clonazepam (takes for anxiety), and narcotics to prevent hypoventilation/respiratory depression and given hx of MALVIN. 3. Cardio: AC w Eliquis BID for management of RUE DVT. CTA neg for PE. Ordered Echo w bubble study to r/o shunt contributing to hypoxia although less likely as corrects with oxygen supplementation. Holding Seroquel d/t QTc prolongation. EKG-sinus tachy, possible 2/2 to medications (albuterol, racemic epinephrine) vs volume depletion. Troponins negative. Thyroid panel does not indicate source of tachycardia. C/w home doses HCTZ and Nifedpine for Hx HTN. May consider ordering anti-factor Xa if concern for inadequate anticoagulation with NOACs given obesity. 4. Lactic Acidosis: possibly 2/2 respiratory distress vs medications (SOLEDAD) unlikely 2/2 septic shock as no clinical signs of hypoperfusion (normal renal function/urine output, normal BP, normal mental status). Possible hypovoleumia, treating with IVF bolus and maintenance fluis 1/2 NS. 5. Heme: Eitiology of leukocytosis currently unknown, possibly 2/2 steroids or reactive with hx of lupus vs infection. Covering with vancomycin and Zosyn. Blood cx pending, UA pending. ESR and CRP elev. CT chest no clear infectious etiology. DVT prophylaxis: Eliquis BID Code Status: Full Code DISPOSITION Manage/evaluate in ICU. Total critical care time spent not including procedures approx 1 hr GME ATTESTATION My faculty preceptor for this patient encounter was physically present during the encounter and was fully available. All aspects of the patient interview, examination, medical decision making process, and medical care plan development were reviewed and approved by the faculty preceptor. The faculty preceptor is aware and concurs with the plan as stated in the body of this note and will attest to such by her co-signature. I, Toñito Solano, have conducted an independent history and examination of the patient and agree with the plan as detailed with edits were necessary and discussed during rounds. Vital Signs/I&O Vital Signs Date Time Temp Pulse Resp B/P (MAP) Pulse Ox O2 Delivery O2 Flow Rate FiO2 07/07/21 14:32 98.9 07/07/21 14:30 125 28 140/92 (108) 93 Room Air 07/07/21 12:35 2.0 Laboratory Data Labs 24H Laboratory Tests 2 07/07/21 01:44: Urine Opiates Screen POSITIVEH, Urine Methadone Screen NEGATIVE, Urine Barbiturates Screen POSITIVEH, Urine Phencyclidine Screen NEGATIVE, Urine Amphetamines Screen NEGATIVE, Urine Benzodiazepines Screen POSITIVEH, Urine Cocaine Metabolite Screen NEGATIVE, Urine Cannabinoids Screen NEGATIVE 07/07/21 01:45: Neutrophils (%) (Auto) , Nucleated Red Blood Cells % (auto) 0.0, Neutrophils 56, Lymphocytes (Manual) 30, Monocytes (Manual) 7H, Eosinophils (Manual) 5H, Basophils (Manual) 1, Atypical Lymphocytes 1, Hypochromasia 1+, Anisocytosis 1+, Microcytosis 1+, Ovalocytes 1+, Smudge Cells 1+, Platelet Estimate NORMAL, Clumped Platelets SMALL AMT, Erythrocyte Sedimentation Rate 52H, Anion Gap 8, Glomerular Filtration Rate > 60.0, Calcium Level 8.8, Magnesium Level 1.8, Iron Level 25L, Total Iron Binding Capacity 376, Transferrin % Saturation 6.6L, Ferritin 19, Total Bilirubin 0.1L, Direct Bilirubin < 0.1, Aspartate Amino Transf (AST/SGOT) 15, Alanine Aminotransferase (ALT/SGPT) 30, Alkaline Phosphatase 111, Total Creatine Kinase 45, Creatine Kinase MB < 1.0, Creatine Kinase MB Relative Index 2.22, Troponin I < 0.02, C-Reactive Protein, Quantitative 3.58H, YI-Ggd-D-Type Natriuretic Peptide 30, Total Protein 6.6, Albumin 3.2, Albumin/Globulin Ratio 0.9L, Vitamin B12 Level 850, Folate 10.6, Complement C3 166, Complement C4 46H, Coronavirus (COVID-19)(PCR) NEGATIVE, Influenza Type A (RT-PCR) NEGATIVE, Influenza Type B (RT-PCR) NEGATIVE, Respiratory Syncytial Virus (PCR) NEGATIVE 07/07/21 02:04: POC pH (Misc Panel) 7.473H, POC Base Excess (Misc Panel) 5.0H, POC Saturated Percent O2 (Misc) 95, POC pO2 (Misc Panel) 70.0L, POC pCO2 (Misc Panel) 38.4, POC HCO3 (Misc Panel) 28.1H, POC Total CO2 (Misc Panel) 29.0H 07/07/21 05:52: Lactic Acid Level 4.1*H 07/07/21 05:53: D-Dimer, Quantitative 333.30 07/07/21 10:12: Lactic Acid Level 4.8*H, Procalcitonin 0.09 07/07/21 10:38: Bedside Glucose (Misc Panel) 178H 07/07/21 10:47: Blood Gas Bicarbonate Standard 24.4, Arterial Blood pH 7.468H, Arterial Blood Partial Pressure CO2 32.8L, Arterial Blood Partial Pressure O2 61.5L, Arterial Blood Total CO2 24.2, Arterial Blood HCO3 23.2, Arterial Blood Base Excess 0.0, Arterial Blood Oxygen Saturation 91.9L 07/07/21 13:31: Sickle Cell Screen NEGATIVE, Troponin I < 0.02, Thyroid Stimulating Hormone (TSH) 0.696, Free Thyroxine 0.65L, Total Triiodothyronine 49.3L, Human Chorionic Gonadotropin, Quant < 1.0 CBC/BMP Laboratory Tests 07/07/21 01:45 Microbiology Microbiology 07/07/21 Blood Culture, Received Pending 07/07/21 Blood Culture, Received Pending 07/07/21 Respiratory Virus Panel (PCR) ([facility]) - Final, Complete Allergies Coded Allergies: Kiwi (Verified Allergy, Severe, anaphylaxsis, 07/06/21) avocado (Verified Allergy, Severe, anaphylaxsis, 07/06/21) banana (Verified Allergy, Severe, anaphylaxis, 02/22/21) hydroxychloroquine (Verified Allergy, Severe, anaphylaxis, 11/22/20) latex (Verified Allergy, Mild, rash, 11/22/20) enoxaparin (Verified Adverse Reaction, Intermediate, LOWERS SEIZURE THRESHOLD, 11/22/20) ketorolac (Verified Adverse Reaction, Intermediate, seizures, 11/22/20) methocarbamol (Verified Adverse Reaction, Intermediate, seizures, 11/22/20) famotidine (Verified Adverse Reaction, Mild, vomiting, 11/22/20) promethazine (Verified Adverse Reaction, Mild, vomiting, 11/22/20) Home Medications Scheduled Apixaban (Eliquis) 5 Mg Tablet, 5 MG PO BID, (Reported) Belimumab (Benlysta) 200 Mg/1 Ml Auto.injct, 200 MG SC QWEEK, (Reported) Sunday Cetirizine HCl (Cetirizine HCl) 10 Mg Tablet, 10 MG PO DAILY, (Reported) Clonazepam (Clonazepam) 0.5 Mg Tablet, 1 MG PO TID, (Reported) Fluoxetine Hcl (Fluoxetine HCl) 40 Mg Capsule, 80 MG PO DAILY, (Reported) Hydrochlorothiazide (Hydrochlorothiazide) 12.5 Mg Capsule, 12.5 MG PO DAILY, (Reported) Hydrocodone/Acetaminophen (Hydrocodone-Acetamin 5-325 mg) 1 Each Tablet, 1 TAB PO BID, (Reported) Lamotrigine (Lamotrigine) 150 Mg Tablet, 150 MG PO DAILY, (Reported) Lamotrigine (Lamotrigine) 100 Mg Tablet, 100 MG PO QHS, (Reported) Nifedipine (Nifedipine ER) 30 Mg Tablet.er, 30 MG PO DAILY, (Reported) Pregabalin (Pregabalin) 75 Mg Capsule, 75 MG PO QHS, (Reported) Quetiapine Fumarate (Quetiapine Fumarate) 300 Mg Tablet, 300 MG PO QHS, (Reported) Quetiapine Fumarate (Quetiapine Fumarate) 50 Mg Tablet, 50 MG PO BID, (Reported) TAKE QAM AND AT NOON Scheduled PRN Albuterol Sulfate (Proair Hfa) 8.5 Gm Hfa.aer.ad, 2 PUFF INH Q4H PRN for SHORTNESS OF BREATH, (Reported) Albuterol Sulfate (Albuterol Sulfate) 1.25 Mg/3 Ml Vial.neb, 1.25 MG INH Q4H PRN for SHORTNESS OF BREATH, (Reported) Butalb/Acetaminophen/Caffeine (Kexiyw-Wesgrpjn-Wmzr 50-325-40) 1 Each Tablet, 1 TAB PO Q4H PRN for MIGRAINE, (Reported) Epinephrine (Epipen 2-Gunner) 0.3 Mg/0.3 Ml Auto.injct, 0.3 MG IM ASDIRECTED PRN for ANAPHYLAXIS, (Reported) Zolpidem Tartrate (Zolpidem Tartrate) 10 Mg Tablet, 10 MG PO QHS PRN for INSOMNIA, (Reported) ALEKSANDRA MILES S-3 Jul 07, 2021 16:36 TOÑITO SOLANO MD Jul 10, 2021 16:26
[2021-07-07] MEDS: NS 1,000 ML IV SCH (18:23)
[2021-07-07 18:53] LABS: ACETAMINOPHEN LEVEL 8.7 UG/ML (10.0-30.0)
--- NOTE | 2021-07-07 18:56 | ECGEPIP ---
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
[2021-07-07] MEDS ORDERED: RAMELTEON 8 MG TAB (ROZEREM) PO ONE (20:15)
[2021-07-07] MEDS ORDERED: PREGABALIN 75 MG CAP(LYRICA) PO SCH (21:00)
[2021-07-07] MEDS ORDERED: QUEtiapine FUMARATE 100 MG TAB PO SCH (21:00)
[2021-07-07] MEDS ORDERED: lamoTRIgine 100MG TAB PO SCH (21:00)
[2021-07-07] MEDS ORDERED: QUEtiapine FUMARATE 50MG TAB PO SCH (21:00)
[2021-07-07] MEDS ORDERED: zolPIDEM TARTRATE 5 MG TAB PO PRN (21:15)
[2021-07-07] MEDS ORDERED: diphenhydrAMINE 50MG/ML VIAL (J1200) IM ONE (22:00)
[2021-07-08] VITALS (9 sets, daily range): BP systolic 128–162; BP diastolic 71–109
[2021-07-08] MEDS: ACETAMINOPHEN TAB 650MG DOSE (2X325MG) PO PRN ×2 (00:20→14:36)
[2021-07-08] MEDS ORDERED: ONDANSETRON 4MG/2ML VIAL IV ONE (00:35)
[2021-07-08] MEDS: PIPERACILLIN/TAZOBACTAM SOD 3.375 GM in D5W MINI-BAG PLUS 50 ML IV SCH ×2 (01:17→08:00)
[2021-07-08] MEDS: IPRATROPIUM 0.02% SOLN 0.5MG 2.5ML NEB INH SCH ×3 (01:35→13:15)
[2021-07-08] MEDS: NS 1,000 ML IV SCH (03:50)
[2021-07-08] MEDS: VANCOMYCIN HCL 1,000 MG, VIAL MATE ADAPTER 1 EACH in NS 250 ML IV SCH (04:14)
[2021-07-08 04:24] LABS: HEMATOCRIT 29.3 % (36.0-47.0); HEMOGLOBIN 9.2 g/dl (12.0-15.5); MEAN CORPUSCULAR HEMOGLOBIN 24.7 pg (27.0-33.0); MEAN CORPUSCULAR HGB CONC 31.4 g/dl (32.0-36.5); MEAN CORPUSCULAR VOLUME 78.8 fl (80.0-96.0); PLATELET COUNT, AUTOMATED 391 10^3/uL (150-450); RED BLOOD COUNT 3.72 10^6/uL (4.00-5.40); WHITE BLOOD COUNT 18.9 10^3/uL (4.0-10.0)
[2021-07-08 05:00] LABS: BLOOD UREA NITROGEN 10 MG/DL (7-18); CALCIUM LEVEL 8.8 MG/DL (8.5-10.1); CARBON DIOXIDE LEVEL 25 MEQ/L (21-32); CHLORIDE LEVEL 109 MEQ/L (98-107); CREATININE FOR GFR 0.67 MG/DL (0.55-1.30); GLOMERULAR FILTRATION RATE > 60.0 (>60); GLUCOSE, FASTING 115 MG/DL (70-100); POTASSIUM SERUM 4.8 MEQ/L (3.5-5.1); SODIUM LEVEL 142 MEQ/L (136-145)
[2021-07-08] MEDS: methylPREDNISolone 125MG 2ML VIAL IV SCH (05:36)
[2021-07-08] MEDS: LEVALBUTEROL 1.25 MG/0.5 ML CONCENTRATE NEB INH SCH ×3 (07:32→15:13)
[2021-07-08] MEDS ORDERED: zolPIDEM TARTRATE 5 MG TAB PO PRN (07:45)
--- NOTE | 2021-07-08 08:15 | ECHO ---
ECHOCARDIOGRAM DATE OF PROCEDURE: 07/07/2021 Age: Gender: F Height: 163 cm Weight: 122 kg REFERRING PHYSICIAN: Dr. Surya Cintron INDICATION: Sepsis MEASUREMENTS: 2D Measurements: Interventricular septum: 1.39 cm Posterior wall: 1.26 cm Left ventricle diastole: 4.55 cm Aortic root: 3.2 cm Left atrium: 3.7 cm Proximal ascending aorta: 2.6 cm Left atrial volume index: 23 Doppler Measurements: No aortic regurgitation No aortic stenosis Aortic valve velocity: 102 cm/s No mitral regurgitation No tricuspid regurgitation No pulmonic regurgitation Pulmonary artery systolic pressure: 39 mmHg by pulmonary acceleration time method DESCRIPTION: Rhythm was sinus tachycardia. The study was performed with the patient supine. This was a moderately technically difficult echocardiogram. CONCLUSIONS: 1. Mild concentric left ventricular hypertrophy. Hyperdynamic left ventricular (LV) systolic function. Left ventricular ejection fraction (LVEF) 75% by visual estimate. 2. Normal right ventricle size with hyperdynamic right ventricular systolic function. Suggestive of mild elevation of pulmonary artery systolic pressure. Suboptimal visualization of inferior vena cava and, therefore, inadequate estimate for central venous pressure (CVP) pressure. 3. No vegetations apparent; however, this is a moderately technically difficult echocardiogram. Cardiac valves appeared grossly unremarkable. 4. Very small pericardial effusion seen posteriorly. No diastolic chamber problems.
[2021-07-08] MEDS: guaiFENesin 200 MG TAB PO SCH (08:25)
[2021-07-08] MEDS: CETIRIZINE (ZyrTEC) 10 MG TAB PO SCH (08:26)
[2021-07-08] MEDS: APIXABAN 5 MG TAB (ELIQUIS) PO SCH (08:26)
[2021-07-08] MEDS: lamoTRIgine 100MG TAB PO SCH (08:26)
[2021-07-08] MEDS: clonazePAM 0.5 MG TAB PO SCH ×2 (08:26→15:48)
[2021-07-08] MEDS: NIFEdipine 30 MG XL TAB PO SCH (08:28)
--- NOTE | 2021-07-08 08:44 | ECGEPIP ---
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
--- NOTE | 2021-07-08 08:48 | ECGEPIP ---
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
[2021-07-08] MEDS ORDERED: AUGMENTIN 875 MG TAB PO SCH (09:00)
[2021-07-08] MEDS ORDERED: methylPREDNISolone 125MG 2ML VIAL IV SCH (09:00)
[2021-07-08] MEDS ORDERED: QUEtiapine FUMARATE 50MG TAB PO SCH ×2 (09:00→12:00)
--- NOTE | 2021-07-08 09:06 | ECGEPIP ---
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
[2021-07-08] MEDS ORDERED: NORCO, ANEXSIA 5/325MG TABLET (HYDROcodone/ACETAMINOPHEN) PO ONE ×2 (12:30→17:40)
[2021-07-08 12:39] LABS: ALT/SGPT 41 U/L (12-78); BILIRUBIN,DIRECT < 0.1 MG/DL (0.0-0.2); BILIRUBIN,TOTAL 0.1 MG/DL (0.2-1.0); TOTAL PROTEIN 6.1 GM/DL (6.4-8.2)
--- NOTE | 2021-07-08 15:21 | IPNPDOC ---
Text Note Date of Service The patient was seen on 07/08/21. NOTE Subjective: Patient seen and examined this morning at bedside in the ICU. Larry crane patient's ambien and clonazepam were restarted and Ms. Akers expressed concern that these had not been continued. I explained this was because she was so sleepy and lethargic from what we thought were low oxygen levels the day prior I didn't feel safe restarting medications at that time and held those medications. Moreover, I explained we held some of her psychiatric medications because of prolongation of her QTC which could cause heart arrhythmias and possibly . I explained that based on her most recent EKG and her vital signs overnight that her QTC had normalized and her vital signs were similarly markedly improved! While she did appear relieved by that she did not seem entir vikram convinced. I further explained that we had put her on medications to ensure she would be okay in the event we were missing something including broad spectrum antibiotics, IV steroids in case their was an inflammatory condition we did not recognize or there was a lupus flare of some kind. I further explained that based on what pulmonology had stated her symptoms and oxygen desaturations also seemed consistent with sleep apnea and that sometimes medications like narcotics, the ambien and clonazepam, or her antipsychotics can cause drowsiness that will worsen her respiratory depression which is also why some of these medications were held. She expressed that she had been told by another physician that steroids can cause her to have fluid overload and that she wanted to have fluid taken off of her. I explained that she had no signs of fluid overload, but on exam and that we had also ordered an U/S of her heart just in case but that she had improved substantially after receiving IVF and the likely cause of her elevated HR was dehydration. I explained further that she could be moved out of the ICU because of all of these things. She stated she thought this was not safe. I continued to explain how much she had improved and that her work up had been fairly extensive but we could continue to monitor her on telemetry to make sure nothing additional happened as she expressed concern that often she would get better and then get worse soon after. We also discussed that this was unlike ly to be anaphylaxis as she had no wheezing, rashes, lip, or tongue swelling, but in the event it was the IV steroids likely prevented that. She currently continues to have a feeling of throat tightness with chest pressure, but denies any fevers, chills, wheezing, abdominal pain, nausea, vomiting, rashes, or burning on urination. Objective: Vitals: (see below) Physical exam: General: Well appearing female sitting upright in bed eating breakfast speaking in complete sentences in no acute distress. HEENT: NC, AT, EOMI, no scleral icterus, mucous membranes moist. Mallampati class III visualization of throat, but it seems as though patient will not relax her soft palate to allow visualization of posterior pharynx. . No overt erythema or uvular deviation. Heart: Tachycardic rate, regular rhythm normal S1 and S2 auscultated. On monitor, rate is NSR, EKG showing NSR without QTc prolongation Lungs: Clear to auscultation bilaterally with full breath sounds. No wheezes, crackles, rhonchi. No dullness to percussion. Mild abdominal retractions no subcostal or supraclavicular retractions present. ABD: Obese, soft, non-tender, non-distended. Bowel sounds present. Unable to appreciate any hepatosplenomegaly. No masses or ecchymosis. Neuro: CN2-12 intact. No weakness or loss of sensation in the extremities. Extremities: No edema in the legs. Vascular: +2/4 posterior tibial and dorsalis pedis pulses. Psych: Alert and oriented x4. Imaging: CT neck with contrast- as reported: "IMPRESSION: No acute findings." CTA of the chest - as reported: "IMPRESSION: No obvious evidence for pulmonary embolus. No obvious mediastinal or pleural parenchymal process." CXR as reported: "IMPRESSION: No acute findings." Assessment: 31 year old female with past medical history of TBI, seizures, lupus, obesity, MALVIN, asthma, bipolar disorder, anxiety and right upper extremity DVT presenting with chief complaint of SOB, throat swelling, and hypoxia of unclear etiology. Plan: #. Hypoxia -Resolved. I suspect this was likely secondary to some of her psych medications causing increased lethargy paired with suspected MALVIN. She is on RA currently. We have decreased the dose of her psychiatric medications so this does not happen again. -CTA showing no PE, pneumonia, adenopathy, or other signs of lung disease /acute or chronic pathology of any kind. Respiratory panel negative. -Troponins negativex2, no EKG changes suggestive for ischemia. -CT neck similarly non-diagnostic for any infectious or inflammatory signs of upper airway obstruction. -ABG showing respiratory alkalosis. Narcotics are now held, incentive spirometry ordered. -Echo with bubble study ordered, there are no signs mild concentric LVH w/ LVEF 75%. Hyperdynamic RVS function suggestive of mild elevation of pulmonary artery systolic pressure. No vegetations, cardiac valves appear grossly unremarkable. Very small pericardial effusion seen posteriorly. No diastolic chamber problems. -Sickle cell screen negative. -Peripheral smear showing microcytic hypochromic anemia consistent with iron deficiency anemia vs a component of anemia of chronic disease. Hgb remains stable. Minimal poikilocytosis and anisocytosis is noted. Leukocytosis most likely reactive/inflammatory or medication/?steroid. Platelets are unremarkable. Peripheral smear findings do not explain her symptoms and rule out anemia or other blood disorders as a possible cause of her symptomatology. -Pulmonology, Dr. Jones on consult and is signing off as she is on RA. #. Subjective throat swelling -No wheezing, angioedema, rash, or other signs consistent with anaphylaxis over the past 24 hours. Transitioned to PO steroids. Patient refusing. Risks/benefits explained by Dr. Forbes, see below. -CT neck negative -Prednisone 40 mg daily s/p IV solumedrol. -C3 normal, C4 elevated, C2 pending. -F/u with allergy/immunology outpatient #. Leukocytosis -On review of previous admission it appears she has a chronic leukocytosis without any large shifts in her peripheral cell lines. Suspect worsening is from steroids No clear source of infection, temp 100.1 (afebrile), ESR, CRP, lactic acid elevated. No signs of hypo-perfusion otherwise though, could be type B lactic acidosis. (Patient is technically SIRS positive) -CXR, CTA chest, CT neck negative for any diagnostic pathology. -MRSA negative, will transition to Augmentin as lactic acidosis now resolved. -Blood cultures x2 negative after 24 hours, UA negative. -Procalcitonin WNL -Echo results above #. Tachycardia -Resolved, likely 2/2 dehydration -Thyroid studies non-diagnostic for tachycardia. -HCG negative. #. Lactic acidosis -Resolved -No signs of global hypoperfusion suspect this was drug induced, type B lactic acidosis #. MALVIN -Patient is seeing groundskeeper porter in [place] for work up of MALVIN -MALVIN protocol ordered #. QTC prolongation -Resolved -Restarting home meds at reduced dose #. SLE -Unlikely to be lupus flare. Steroids refused, see above. #. Positive tox screen -Patient is on these medications outpatient. -Narcotics held 2/2 respiratory status, some medications restarted at reduced doses #. HTN -Continue HCTZ, Nifedpine #. Hx of seizures -Lamotrigine 150 mg AM, 100 mg QHS #. Asthma -Hold home albuterol -Xoponex/ipratropium bromide #. Bipolar depression -Continue lamotrigine -Restarting day doses of seroquel 50 BID. Holding QHS dose, but she has refused her daytime seroquel. If she requests QHS dose, this is fine as her QTC is now normal. #. Anxiety/depression disorder -Fluoxetine held, clonazepam restarted at decreased dose 2/2 suspected MALVIN and respiratory depression #. Hx of chronic pain/ neuropathy -Continue lyrica -Patient given home dose of narcotic at noon, she is prescribed this twice daily, she may not have more than her home dose as their is no indication. #. Hx of migraines -Holding Fiorcet #. Insomnia -Ambien restarted at decreased dose. #. Seasonal Allergies -Continue home cetirizine #. DVT prophylaxis: Eliquis BID for RUE DVT hx. Disposition: Transfer to med/surg, [facility] tomorrow. Patient has threa tened to leave AMA last night and refused to participate in her care during parts of the day. See attending note for further details. VS,Fishbone, I+O VS, Fishbone, I+O Laboratory Tests 07/08/21 04:14 Vital Signs Date Time Temp Pulse Resp B/P (MAP) Pulse Ox O2 Delivery O2 Flow Rate FiO2 07/08/21 13:10 98.7 81 17 162/109 (126) 96 Room Air 07/08/21 08:00 1.0 I&O- Last 24 Hours up to 6 AM 07/08/21 06:00 Intake Total 5460 ml Output Total 1850 ml Balance 3610 ml GME ATTESTATION GME ATTESTATION My faculty preceptor for this patient encounter was physically present during the encounter and was fully available. All aspects of the patient interview, examination, medical decision making process, and medical care plan development were reviewed and approved by the faculty preceptor. The faculty preceptor is aware and concurs with the plan as stated in the body of this note and will attest to such by his/her cosignature. ATTENDING NOTE I, J Luis Forbes, have independently examined this patient and performed my own physical exam, as well as reviewed the documentation and edited where necessary. I have discussed in detail with the resident / student the findings and plan of treatment as documented by the resident / student and edited their note. I agree with their findings and treatment plan and have edited their documentation. I will continue to follow the patient during this hospital stay. Subjective: Patient was seen and examined at the bedside. This morning patient had reported that she still subjectively felt that she was short of breath. Didn't report any significant cough. Denied any chest pain. Patient is reported nausea without vomiting. Denies any significant abdominal pain. Denies any diarrhea. Reports some discomfort with urination. Has not expressed any fevers or chills overnight. This morning patient is concerned that we are not addressing her shortness of breath to her satisfaction. I've reiterated to her that we have done extensive imaging (including CT angiogram of her chest, CT with IV contrast of her neck and echocardiogram), blood work, arterial blood gases and had pulmonology on consultation. Patient reports that she feels that she is not receiving adequate care. Patient had reported that she feels that doctors do not listen to "black women". I had paused our conversation at that time and asked nursing staff to join me in the room while we continued our conversation. I've reiterated to her that we are trying to help her improve her current clinical picture. Patient is concerned that the medications that she has taken as an outpatient have been reduced and/or stopped. I and multiple staff members have explained to her on at least 5 different occasions today about what our goals of care are. Patient was informed that the medications were reduced and/or discontinued because she was lethargic yesterday and had a significantly prol onged QTC, which can induce arrhythmia. Patient is still concerned and had contacted patient advocate. We have discussed in depth and at length with advocate, all of intensive care nursing staff as a group with the patient. And subsequently nursing prepared foods supervisor had been independent conversation with the patient after she had refused to take any medications or participate in her care / refused to leave the ICU room. Objective: Vitals (See below) General: Lying in bed, no acute distress, appears very comfortable, AAOx3; patient was able to ambulate in the room and to her medical surgical floor bed HEENT: NC, AT CVS: RRR, +S1S2 Lungs: Fair air entry b/l, auscultation does not reveal any evidence of wheezing, crackles or rhonchi Abdomen: Soft, nondistended, nontender, obese Extremities: Lower extremities do not reveal any evidence of pitting edema Imaging: CXR 07/07: No acute findings. CTA Chest 07/07: No obvious evidence for pulmonary embolus. No obvious mediastinal or pleural parenchymal process. CT Neck with contrast 07/07: No acute findings. ECHO 07/07: 1. Mild concentric left ventricular hypertrophy. Hyperdynamic left ventricular (LV) systolic function. Left ventricular ejection fraction (LVEF) 75% by visual estimate. 2. Normal right ventricle size with hyperdynamic right ventricular systolic function. Suggestive of mild elevation of pulmonary artery systolic pressure. Suboptimal visualization of inferior vena cava and, therefore, inadequate estimate for central venous pressure (CVP) pressure. 3. No vegetations apparent; however, this is a moderately technically difficult echocardiogram. Cardiac valves appeared grossly unremarkable. 4. Very small pericardial effusion seen posteriorly. No diastolic chamber problems. Assessment and plan: s/p Acute hypoxic respiratory failure - likely 2/2 medications and likely component of MALVIN - Yesterday afternoon patient was hypoxic after consuming her AM medications and falling asleep/lethargic - As patient's mentation has improved and she has awoken her saturations have normalized - Patient is currently saturating very well on room air - ABG has been reviewed - Imaging is negative for any acute pathology - Dose of psychiatric medications have been reduced - Pulmonology was called on consultation; appreciate their input - Prednisone started and Solumedrol discontinued; however patient has refused corticosteroids and reports that she was told by her Deputy Sheriff Lieutenant and Neurologist that it was contraindicated ---> I have advised her that in these situations that corticosteroids held reduce inflammation - she disagrees and wants steroids stopped ---> Patient has been advised that his is not the best course of action; however she is capable of making her own decisions and medications will be stopped ---> She has verbalized understanding of the risks of such decisions; including but not limited to / disability - c/w Supportive care / inhaled therapy as ordered - Patient will likely require outpatient follow-up with her groundskeeper porter for likely sleep study for her suspected MALVIN Questionable low grade fever / Leukocytosis - Hemodynamically stable / No further fevers notes - Leukocytosis worsened - likely 2/2 corticosteroids - Pro-calcitonin is essentially negative - MRSA screen negative - UA negative - Imaging negative; CT chest does not reveal any evidence of pneumonia and CT neck does not reveal any evidence of inflammation - Will start Augmentin; Will DC Zosyn and Vancomycin Leukocytosis - likely 2/2 corticosteroids - No evidence of ongoing infection - See above Normocytic anemia - Hg appears to be stable - no evidence of bleeding s/p Lactic acidosis - s/p IV fluid hydration s/p Tachycardia - HR has normalized - Possibly 2/2 dehydration / lactic acidosis - s/p IV fluids s/p QTc Prolongation - EKG this morning has shown improvement - Will resume portions of her psychiatric medications Asthma - No evidence of exacerbation - c/w Inhaled therapy as ordered HTN - BP elevated - c/w Nifedipine - Will resume HCTZ tonight Hx of Right upper extremity DVT - c/w Eliquis Hx of TBI / Seizures - c/w Lamotrigine Lupus - Compliment levels appear appropriate - No evidence of infection Obesity - BMI of 45.6 - Complicating medical care Anxiety / Bipolar disorder / Insomnia - c/w Reduced dose of Seroquel, Clonazepam, Ambien - Patient will require outpatient follow-up with psychiatry on discharge Chronic pain? / Neuropathy - c/w Lyrica - Patient has been prescribed [place] as an outpatient - Has been discontinued at this time Seasonal allergies - c/w Cetirizine DVT prophylaxis - c/w full anticoagulation with Eliquis Disposition: - No PT required as patient was able to ambulate from ICU to [facility] without any assistance - Anticipate DC home tomorrow with oral antibiotics - Will have outpatient follow-up with primary care provider, pulmonology and psy chilaz on discharge JANA JONES DO Jul 08, 2021 15:21 J LUIS FORBES MD Jul 08, 2021 15:58
[2021-07-08] MEDS ORDERED: methylPREDNISolone 40MG 1ML VIAL IV SCH (18:00)
--- NOTE | 2021-07-08 18:23 | DS.PDOC ---
Discharge Summary General Date of Admission Jul 07, 2021 at 09:55 Date of Discharge 07/08/21 Attending Physician: J LUIS FORBES MD Discharge Summary PROCEDURES PERFORMED DURING STAY: TTE: 1. Mild concentric left ventricular hypertrophy. Hyperdynamic left ventricular (LV) systolic function. Left ventricular ejection fraction (LVEF) 75% by visual estimate. 2. Normal right ventricle size with hyperdynamic right ventricular systolic function. Suggestive of mild elevation of pulmonary artery systolic pressure. Sub-optimal visualization of inferior vena cava and, therefore, inadequate estimate for central venous pressure (CVP) pressure. 3. No vegetations apparent; however, this is a moderately technically difficult echocardiogram. Cardiac valves appeared grossly unremarkable. 4. Very small pericardial effusion seen posteriorly. No diastolic chamber problems. ADMITTING/DISCHARGE DIAGNOSES: Hypoxia Feeling of throat swelling Leukocytosis Sinus tachycardia Type lactic acidosis Suspect MALVIN History of QTC prolongation History of right upper extremity DVT SLE Positive tox screen Hypertension History of seizures Asthma Bipolar depression Anxiety History of chronic pain/neuropathy History of migraines Insomnia Seasonal allergies COMPLICATIONS/CHIEF COMPLAINT: difficulty breathing, throat swelling/tightness HISTORY OF PRESENT ILLNESS/HOSPITAL COURSE: 31-year-old female admitted early this morning with presumed pneumonia. Patient has a 4-day history of progressively worsening breathing. She was seen at [facility] where she was given some nebulizer treatments and told to go to a larger facility in the event that her symptoms worsened. Her symptoms have continued to progress and she presented to [facility] ED last night with difficulty breathing and was found to have an elevated white blood cell count, lactic acidosis, and per the night team was thought to have a pneumonia. Currently patient is complaining of shortness of breath, throat swelling, palpitations, and chest pressure. She states she has had the palpitations since 07/04. Of note, she does state that she has been intubated for allergies in the past and feels like her throat is swollen in the same way that it was previously. She does not feel significantly better since being admitted, she did receive some racemic epinephrine that did help for about 20 minutes but after that she did not experience much relief. Patient was admitted to the hospital and given broad-spectrum antibiotics, IV steroids, supplemental oxygen, and IV fluid boluses. Subjective: Patient seen and examined this morning at bedside in the ICU. Overnight patient's ambien and clonazepam were restarted and Ms. kAers expressed concern that these had not been continued. I explained this was because she was so sleepy and lethargic from what we thought were low oxygen levels the day prior I didn't feel safe restarting medications at that time and held those medications. Moreover, I explained we held some of her psychiatric medications because of prolongation of her QTC which could cause heart arrhythmias and possibly . I explained that based on her most recent EKG and her vital signs overnight that her QTC had normalized and her vital signs were similarly markedly improved! While she did appear relieved by that she did not seem entirely convinced. I further explained that we had put her on medications to ensure she would be okay in the event we were missing something including broad spectrum antibiotics, IV steroids in case their was an inflammatory condition we did not recognize or there was a lupus flare of some kind. I further explained that based on what pulmonology had stated her symptoms and oxygen desaturations also seemed consistent with sleep apnea and that sometimes medications like narcotics, the ambien and clonazepam, or her antipsychotics can cause drowsiness that will worsen her respiratory depression which is also why some of these medications were held. She expressed that she had been told by another physician that steroids can cause her to have fluid overload and that she wanted to have fluid taken off of her. I explained that she had no signs of fluid overload, but on exam and that we had also ordered an U/S of her heart just in case but that she had improved substantially after receiving IVF and the likely cause of her elevated HR was dehydration. I explained further that she could be moved out of the ICU because of all of these things. She stated she thought this was not safe. I continued to explain how much she had improved and that her work up had been fairly extensive but we could continue to monitor her on telemetry to make sure nothing additional forrester ppened as she expressed concern that often she would get better and then get worse soon after. We also discussed that this was unlikely to be anaphylaxis as she had no wheezing, rashes, lip, or tongue swelling, but in the event it was the IV steroids likely prevented that. She currently continues to have a feeling of throat tightness with chest pressure, but denies any fevers, chills, wheezing, abdominal pain, nausea, vomiting, rashes, or burning on urination. Objective: Vitals: (see below) Physical exam: General: Well appearing female sitting upright in bed eating breakfast speaking in complete sentences in no acute distress. HEENT: NC, AT, EOMI, no scleral icterus, mucous membranes moist. Mallampati class III visualization of throat, but it seems as though patient will not relax her soft palate to allow visualization of posterior pharynx. . No overt erythema or uvular deviation. Heart: Tachycardic rate, regular rhythm normal S1 and S2 auscultated. On monitor, rate is NSR, EKG showing NSR without QTc prolongation Lungs: Clear to auscultation bilaterally with full breath sounds. No wheezes, crackles, rhonchi. No dullness to percussion. Mild abdominal retractions no subcostal or supraclavicular retractions present. ABD: Obese, soft, non-tender, non-distended. Bowel sounds present. Unable to appreciate any hepatosplenomegaly. No masses or ecchymosis. Neuro: CN2-12 intact. No weakness or loss of sensation in the extremities. Extremities: No edema in the legs. Vascular: +2/4 posterior tibial and dorsalis pedis pulses. Psych: Alert and oriented x4. Assessment: 31 year old female with past medical history of TBI, seizures, lupus, obesity, MALVIN, asthma, bipolar disorder, anxiety and right upper extremity DVT presenting with chief complaint of SOB, throat swelling, and hypoxia of unclear etiology. Plan: #. Hypoxia -Resolved. I suspect this was likely secondary to some of her psych medications causing increased lethargy paired with suspected MALVIN. She is on RA currently. We have decreased the dose of her psychiatric medications so this does not happen again. -CTA showing no PE, pneumonia, adenopathy, or other signs of lung disease /acute or chronic pathology of any kind. Respiratory panel negative. -Troponins negativex2, no EKG changes suggestive for ischemia. -CT neck similarly non-diagnostic for any infectious or inflammatory signs of upper airway obstruction. -ABG showing respiratory alkalosis. Narcotics are now held, incentive spirometry ordered. -Echo with bubble study ordered, there are no signs mild concentric LVH w/ LVEF 75%. Hyperdynamic RVS function suggestive of mild elevation of pulmonary artery systolic pressure. No vegetations, cardiac valves appear grossly unremarkable. Very small pericardial effusion seen posteriorly. No diastolic chamber problems. -Sickle cell screen negative. -Peripheral smear showing microcytic hypochromic anemia consistent with iron deficiency anemia vs a component of anemia of chronic disease. Hgb remains stable. Minimal poikilocytosis and anisocytosis is noted. Leukocytosis most likely reactive/inflammatory or medication/?steroid. Platelets are unremarkable. Peripheral smear findings do not explain her symptoms and rule out anemia or other blood disorders as a possible cause of her symptomatology. -Pulmonology, Dr. Jones on consult and is signing off as she is on RA. #. Subjective throat swelling -No wheezing, angioedema, rash, or other signs consistent with anaphylaxis over the past 24 hours. Transitioned to PO steroids. Patient refusing. Risks/benefits explained by Dr. Forbes, see below. -CT neck negative -Prednisone 40 mg daily s/p IV solumedrol. -C3 normal, C4 elevated, C2 pending. -F/u with allergy/immunology outpatient #. Leukocytosis -On review of previous admission it appears she has a chronic leukocytosis without any large shifts in her peripheral cell lines. Suspect worsening is from steroids No clear source of infection, temp 100.1 (afebrile), ESR, CRP, lactic acid elevated. No signs of hypo-perfusion otherwise though, could be type B lactic acidosis. (Patient is technically SIRS positive) -CXR, CTA chest, CT neck negative for any diagnostic pathology. -MRSA negative, will transition to Augmentin as lactic acidosis now resolved. -Blood cultures x2 negative after 24 hours, UA negative. -Procalcitonin WNL -Echo results above #. Tachycardia -Resolved, likely 2/2 dehydration -Thyroid studies non-diagnostic for tachycardia. -HCG negative. #. Lactic acidosis -Resolved -No signs of global hypoperfusion suspect this was drug induced, type B lactic acidosis #. MALVIN -Patient is seeing vehicle care specialist in [place] for work up of MALVIN -MALVIN protocol ordered #. QTC prolongation -Resolved -Restarting home meds at reduced dose #. SLE -Unlikely to be lupus flare. Steroids refused, see above. #. Positive tox screen -Patient is on these medications outpatient. -Narcotics held 2/2 respiratory status, some medications restarted at reduced doses #. HTN -Continue HCTZ, Nifedpine #. Hx of seizures -Lamotrigine 150 mg AM, 100 mg QHS #. Asthma -Hold home albuterol -Xoponex/ipratropium bromide #. Bipolar depression -Continue lamotrigine -Restarting day doses of seroquel 50 BID. Holding QHS dose, but she has refused her daytime seroquel. If she requests QHS dose, this is fine as her QTC is now normal. #. Anxiety/depression disorder -Fluoxetine held, clonazepam restarted at decreased dose 2/2 suspected MALVIN and respiratory depression #. Hx of chronic pain/ neuropathy -Continue lyrica -Patient given home dose of narcotic at noon, she is prescribed this twice daily, she may not have more than her home dose as their is no indication. #. Hx of migraines -Holding Fiorcet #. Insomnia -Ambien restarted at decreased dose. #. Seasonal Allergies -Continue home cetirizine #. DVT prophylaxis: Eliquis BID for RUE DVT hx. DISCHARGE MEDICATIONS: Please see below. ALLERGIES: Please see below. PHYSICAL EXAMINATION ON DISCHARGE: VITAL SIGNS: Please see below. Not performed as patient left AGAINST MEDICAL ADVICE LABORATORY DATA: Please see below. IMAGIN07/07/2021 chest x-ray: "IMPRESSION: No acute findings." 07/07/2021 CT angiogram chest: "IMPRESSION: No obvious evidence for pulmonary embolus. No obvious mediastinal or pleural parenchymal process." 07/07/2021 CT neck with IV contrast: "IMPRESSION: No acute findings." ACTIVITY: As tolerated DIET: As tolerated DISCHARGE PLAN: Left AMA DISPOSITION: Left AMA DISCHARGE INSTRUCTIONS: 1. Patient refused to sign AMA form on discharge TIME SPENT ON DISCHARGE: 33 minutes. Vital Signs/I&Os Vital Signs Date Time Temp Pulse Resp B/P (MAP) Pulse Ox O2 Delivery O2 Flow Rate FiO2 07/08/21 17:45 18 07/08/21 13:10 98.7 81 162/109 (126) 96 Room Air 07/08/21 08:00 1.0 I&O- Last 24 Hours up to 6 AM 07/08/21 06:00 Intake Total 5460 ml Output Total 1850 ml Balance 3610 ml Laboratory Data Labs 24H Laboratory Tests 2 07/07/21 19:03: Methicillin-Resist S.aureus DNA PCR NOT DETECTED 07/07/21 19:40: Differential Slide Review Report, Peripheral Blood Smear Path Consult PERIPHERAL SMEAR, Lactic Acid Level 3.7*H 07/08/21 00:09: Lactic Acid Followup at 4 Hours 1.6 07/08/21 00:27: Urine Color STRAW, Urine Appearance HAZY, Urine pH 8.0, Urine Specific [place] 1.014, Urine Protein NEGATIVE, Urine Glucose (UA) NEGATIVE, Urine Ketones NEGATIVE, Urine Blood 1+H, Urine Nitrite NEGATIVE, Urine Bilirubin NEGATIVE, Urine Urobilinogen 0.2, Urine Leukocyte Esterase NEGATIVE, Urine WBC (Auto) 2, Urine RBC (Auto) 2, Urine Hyaline Casts (Auto) 0, Urine Bacteria (Auto) NEG ATIVE, Urine Squamous Epithelial Cells 5, Urine Sperm (Auto) 07/08/21 04:14: Nucleated Red Blood Cells % (auto) 0.0, Anion Gap 8, Glomerular Filtration Rate > 60.0, Calcium Level 8.8, Total Bilirubin 0.1L, Direct Bilirubin < 0.1, Aspartate Amino Transf (AST/SGOT) 15, Alanine Aminotransferase (ALT/SGPT) 41, Alkaline Phosphatase 104, Total Protein 6.1L, Albumin 3.0L, Albumin/Globulin Ratio 1.0L CBC/BMP Laboratory Tests 07/08/21 04:14 Microbiology Microbiology 07/07/21 Blood Culture - Preliminary, Resulted No growth after 24 hours . All specim... 07/07/21 Blood Culture - Preliminary, Resulted No growth after 24 hours . All specim... 07/07/21 Respiratory Virus Panel (PCR) ([facility]ADA) - Final, Complete Discharge Medications Scheduled Apixaban (Eliquis) 5 Mg Tablet, 5 MG PO BID, (Reported) Belimumab (Benlysta) 200 Mg/1 Ml Auto.injct, 200 MG SC QWEEK, (Reported) Sunday Cetirizine HCl (Cetirizine HCl) 10 Mg Tablet, 10 MG PO DAILY, (Reported) Clonazepam (Clonazepam) 0.5 Mg Tablet, 1 MG PO TID, (Reported) Fluoxetine Hcl (Fluoxetine HCl) 40 Mg Capsule, 80 MG PO DAILY, (Reported) Hydrochlorothiazide (Hydrochlorothiazide) 12.5 Mg Capsule, 12.5 MG PO DAILY, (Reported) Hydrocodone/Acetaminophen (Hydrocodone-Acetamin 5-325 mg) 1 Each Tablet, 1 TAB PO BID, (Reported) Lamotrigine (Lamotrigine) 150 Mg Tablet, 150 MG PO DAILY, (Reported) Lamotrigine (Lamotrigine) 100 Mg Tablet, 100 MG PO QHS, (Reported) Nifedipine (Nifedipine ER) 30 Mg Tablet.er, 30 MG PO DAILY, (Reported) Pregabalin (Pregabalin) 75 Mg Capsule, 75 MG PO QHS, (Reported) Quetiapine Fumarate (Quetiapine Fumarate) 300 Mg Tablet, 300 MG PO QHS, (Reported) Quetiapine Fumarate (Quetiapine Fumarate) 50 Mg Tablet, 50 MG PO BID, (Reported) TAKE QAM AND AT NOON Scheduled PRN Albuterol Sulfate (Proair Hfa) 8.5 Gm Hfa.aer.ad, 2 PUFF INH Q4H PRN for SHORTNESS OF BREATH, (Reported) Albuterol Sulfate (Albuterol Sulfate) 1.25 Mg/3 Ml Vial.neb, 1.25 MG INH Q4H PRN for SHORTNESS OF BREATH, (Reported) Butalb/Acetaminophen/Caffeine (Gkmohq-Bemtrdcz-Ylgs 50-325-40) 1 Each Tablet, 1 TAB PO Q4H PRN for MIGRAINE, (Reported) Epinephrine (Epipen 2-Gunner) 0.3 Mg/0.3 Ml Auto.injct, 0.3 MG IM ASDIRECTED PRN for ANAPHYLAXIS, (Reported) Zolpidem Tartrate (Zolpidem Tartrate) 10 Mg Tablet, 10 MG PO QHS PRN for INSOMNIA, (Reported) Allergies Coded Allergies: Kiwi (Verified Allergy, Severe, anaphylaxsis, 07/06/21) avocado (Verified Allergy, Severe, anaphylaxsis, 07/06/21) banana (Verified Allergy, Severe, anaphylaxis, 02/22/21) hydroxychloroquine (Verified Allergy, Severe, anaphylaxis, 11/22/20) latex (Verified Allergy, Mild, rash, 11/22/20) enoxaparin (Verified Adverse Reaction, Intermediate, LOWERS SEIZURE THRESHOLD, 11/22/20) ketorolac (Verified Adverse Reaction, Intermediate, seizures, 11/22/20) methocarbamol (Verified Adverse Reaction, Intermediate, seizures, 11/22/20) famotidine (Verified Adverse Reaction, Mild, vomiting, 11/22/20) promethazine (Verified Adverse Reaction, Mild, vomiting, 11/22/20) GME ATTESTATION GME ATTESTATION My faculty preceptor for this patient encounter was physically present during the encounter and was fully available. All aspects of the patient interview, examination, medical decision making process, and medical care plan development were reviewed and approved by the faculty preceptor. The faculty preceptor is aware and concurs with the plan as stated in the body of this note and will attest to such by his/her cosignature. ATTENDING NOTE I, J Luis Forbes, have independently examined this patient and performed my own physical exam, as well as reviewed the documentation and edited where necessary. I have discussed in detail with the resident / student the findings and plan of treatment as documented by the resident / student and edited their note. I agree with their findings and treatment plan and have edited their documentation. I will continue to follow the patient during this hospital stay. Subjective: Patient was seen and examined at the bedside. This morning patient had reported that she still subjectively felt that she was short of breath. Didn't report any significant cough. Denied any chest pain. Patient is reported nausea without vomiting. Denies any significant abdominal pain. Denies any diarrhea. Reports some discomfort with urination. Has not expressed any fevers or chills overnight. This morning patient is concerned that we are not addressing her shortness of breath to her satisfaction. I've reiterated to her that we have done extensive imaging (including CT angiogram of her chest, CT with IV contrast of her neck and echocardiogram), blood work, arterial blood gases and had pulmonology on consultation. Patient reports that she feels that she is not receiving adequate care. Patient had reported that she feels that doctors do not listen to "black women". I had paused our conversation at that time and asked nursing staff to join me in the room while we continued our conversation. I've reiterated to her that we are trying to help her improve her current clinical picture. Patient is concerned that the medications that she has taken as an outpatient have been reduced and/or stopped. I and multiple staff members have explained to her on at least 5 different occasions today about what our goals of care are. Patient was informed that the medications were reduced and/or discontinued because she was lethargic yesterday and had a significantly pro longed QTC, which can induce arrhythmia. Patient is still concerned and had contacted patient advocate. We have discussed in depth and at length with advocate, all of intensive care nursing staff as a group with the patient. And subsequently nursing supervisor gluing had been independent conversation with the patient after she had refused to take any medications or participate in her care / refused to leave the ICU room. I have again come to the room to discuss with the patient about goals of care an d management plan. Patient is reporting that she doesn't understand why her home medications are not at that her regular dosing. I have reiterated to her again about why that is the case and the necessity of it. Patient does not seem to understand why these changes are required. Patient will be leaving AGAINST MEDICAL ADVICE and has refused and signed AMA paperwork. Objective: Vitals (See below) General: Lying in bed, no acute distress, appears very comfortable, AAOx3; patient was able to ambulate in the room and to her medical surgical floor bed HEENT: NC, AT CVS: RRR, +S1S2 Lungs: Fair air entry b/l, auscultation does not reveal any evidence of wheezing, crackles or rhonchi Abdomen: Soft, nondistended, nontender, obese Extremities: Lower extremities do not reveal any evidence of pitting edema Imaging: CXR 07/07: No acute findings. CTA Chest 07/07: No obvious evidence for pulmonary embolus. No obvious mediastinal or pleural parenchymal process. CT Neck with contrast 07/07: No acute findings. ECHO 07/07: 1. Mild concentric left ventricular hypertrophy. Hyperdynamic left ventricular (LV) systolic function. Left ventricular ejection fraction (LVEF) 75% by visual estimate. 2. Normal right ventricle size with hyperdynamic right ventricular systolic function. Suggestive of mild elevation of pulmonary artery systolic pressure. Suboptimal visualization of inferior vena cava and, therefore, inadequate estimate for central venous pressure (CVP) pressure. 3. No vegetations apparent; however, this is a moderately technically difficult echocardiogram. Cardiac valves appeared grossly unremarkable. 4. Very small pericardial effusion seen posteriorly. No diastolic chamber problems. Assessment and plan: s/p Acute hypoxic respiratory failure - likely 2/2 medications and likely component of MALVIN - Yesterday afternoon patient was hypoxic after consuming her AM medications and falling asleep/lethargic - As patient's mentation has improved and she has awoken her saturations have normalized - Patient is currently saturating very well on room air - ABG has been reviewed - Imaging is negative for any acute pathology - Dose of psychiatric medications have been reduced - Pulmonology was called on consultation; appreciate their input - Prednisone started and Solumedrol discontinued; however patient has refused corticosteroids and reports that she was told by her Calciner Operator Helper and Neurologist that it was contraindicated ---> I have advised her that in these situations that corticosteroids held red uce inflammation - she disagrees and wants steroids stopped ---> Patient has been advised that his is not the best course of action; however she is capable of making her own decisions and medications will be stopped ---> She has verbalized understanding of the risks of such decisions; including but not limited to / disability - c/w Supportive care / inhaled therapy as ordered - Patient will likely require outpatient follow-up with her vehicle care specialist for likely sleep study for her suspected MALVIN Questionable low grade fever / Leukocytosis - Hemodynamically stable / No further fevers notes - Leukocytosis worsened - likely 2/2 corticosteroids - Pro-calcitonin is essentially negative - MRSA screen negative - UA negative - Imaging negative; CT chest does not reveal any evidence of pneumonia and CT neck does not reveal any evidence of inflammation - Will start Augmentin; Will DC Zosyn and Vancomycin Leukocytosis - likely 2/2 corticosteroids - No evidence of ongoing infection - See above Normocytic anemia - Hg appears to be stable - no evidence of bleeding s/p Lactic acidosis - s/p IV fluid hydration s/p Tachycardia - HR has normalized - Possibly 2/2 dehydration / lactic acidosis - s/p IV fluids s/p QTc Prolongation - EKG this morning has shown improvement - Will resume portions of her psychiatric medications Asthma - No evidence of exacerbation - c/w Inhaled therapy as ordered HTN - BP elevated - c/w Nifedipine - Will resume HCTZ tonight Hx of Right upper extremity DVT - c/w Eliquis Hx of TBI / Seizures - c/w Lamotrigine Lupus - Compliment levels appear appropriate - No evidence of infection Obesity - BMI of 45.6 - Complicating medical care Anxiety / Bipolar disorder / Insomnia - c/w Reduced dose of Seroquel, Clonazepam, Ambien - Patient will require outpatient follow-up with psychiatry on discharge Chronic pain? / Neuropathy - c/w Lyrica - Patient has been prescribed [place] as an outpatient - Has been discontinued at this time Seasonal allergies - c/w Cetirizine DVT prophylaxis - c/w full anticoagulation with Eliquis Disposition: - At end of day today. Patient has decided to leave AGAINST MEDICAL ADVICE - She has pulled out her IV line, taken a dose of Lake - Patient has refused to sign AMA paperwork - Has collected her belongings and will be departing JANA JONES DO Jul 08, 2021 18:23 J LUIS FORBES MD Jul 08, 2021 18:29
[2021-07-09] MEDS ORDERED: predniSONE 20 MG TAB PO SCH (09:00)
== END 2021-07-08 18:30 | disposition left against medical advice (07) | DRG 144 ==
LOC: M ED 19:57 → M ED INP 19:58 → OBSVTOIN 07-07 09:55 → ENRESERV 07-07 14:17 → M ICU 07-07 16:06 → M MSPAV 07-08 13:26
PROVIDERS: ADMIT Family Medicine; ATTEND Internal Medicine
DX: R09.02 Hypoxemia (principal); E87.2 Acidosis; M32.9 Systemic lupus erythematosus, unspecified; E87.3 Alkalosis; R56.9 Unspecified convulsions; Z68.42 Body mass index [BMI] 45.0-49.9, adult; G47.33 Obstructive sleep apnea (adult) (pediatric); J45.909 Unspecified asthma, uncomplicated; D50.9 Iron deficiency anemia, unspecified; F31.9 Bipolar disorder, unspecified; F41.9 Anxiety disorder, unspecified; E86.0 Dehydration; E66.9 Obesity, unspecified; R00.0 Tachycardia, unspecified; D72.829 Elevated white blood cell count, unspecified; I10 Essential (primary) hypertension; Z86.718 Personal history of other venous thrombosis and embolism; Z87.820 Personal history of traumatic brain injury; Z79.01 Long term (current) use of anticoagulants; Z79.899 Other long term (current) drug therapy; Z88.8 Allergy status to other drugs, medicaments and biological substances; Z91.018 Allergy to other foods; Z91.040 Latex allergy status; Z20.822 Contact with and (suspected) exposure to COVID-19

== ENCOUNTER 2021-07-31 08:56 | Observation (INO) | payer OTHER ==
[~2021-07-31] VITALS: Ht 162.6 cm; Wt 119.8 kg
[~2021-07-31 08:56] MED LIST changes: +ALBU1.25 INH; +BUTA-198 PO; +EMTR1TAB3 PO; +LAMO100T3 PO; +LAMO100T80 PO; +LAMO150T3 PO; +ONDA-83 PO; +RALT40TA PO
[2021-07-31] MEDS ORDERED: NS 1,000 ML IV ONE ×2 (09:55→13:15)
[2021-07-31 10:41] LABS: BASO % 0.5 % (0.0-1.0); EOS # 0.4 10^3/uL (0.0-0.5); EOS % 4.6 % (0.0-3.0); HEMATOCRIT 34.9 % (36.0-47.0); HEMOGLOBIN 10.7 g/dl (12.0-15.5); LYMPH # 1.9 10^3/uL (1.5-5.0); LYMPH % 22.6 % (24.0-44.0); MEAN CORPUSCULAR HEMOGLOBIN 23.8 pg (27.0-33.0); MEAN CORPUSCULAR HGB CONC 30.7 g/dl (32.0-36.5); MEAN CORPUSCULAR VOLUME 77.7 fl (80.0-96.0); MONO # 0.5 10^3/uL (0.0-0.8); MONO % 5.5 % (2.0-8.0); NEUTROPHILS # 5.6 10^3/uL (1.5-8.5); NEUTROPHILS % 66.6 % (36.0-66.0); PLATELET COUNT, AUTOMATED 303 10^3/uL (150-450); RED BLOOD COUNT 4.49 10^6/uL (4.00-5.40); WHITE BLOOD COUNT 8.4 10^3/uL (4.0-10.0)
[2021-07-31 11:07] LABS: INR 2.01; PROTHROMBIN TIME 23.2 SECONDS (12.7-14.5)
[2021-07-31 11:08] LABS: PARTIAL THROMBOPLASTIN TIME 63.9 SECONDS (25.9-37.0)
[2021-07-31 11:25] LABS: ALBUMIN 3.2 GM/DL (3.2-5.2); ALT/SGPT 24 U/L (12-78); AMYLASE 40 U/L (25-115); BILIRUBIN,DIRECT < 0.1 MG/DL (0.0-0.2); BILIRUBIN,TOTAL 0.1 MG/DL (0.2-1.0); LIPASE 91 U/L (73-393); TOTAL PROTEIN 6.4 GM/DL (6.4-8.2)
[2021-07-31 11:33] LABS: GC DNA AMPLIFICATION NEGATIVE (NEGATIVE)
[2021-07-31 11:42] LABS: RSV AMPLIFICATION NEGATIVE (NEGATIVE)
[2021-07-31] MEDS ORDERED: ISOVUE-370 76% 100ML VIAL As Ordered ONE (11:51)
[2021-07-31 12:14] LABS: FREE T4 0.66 NG/DL (0.76-1.46); THYROID STIMULATING HORMONE 0.444 uIU/ML (0.358-3.740)
[2021-07-31] MEDS ORDERED: ONDANSETRON 4MG/2ML VIAL IV ONE (12:15)
[2021-07-31] MEDS ORDERED: MORPHINE 2 MG/ML 1ML VIAL (J2270) IV ONE (12:15)
[2021-07-31 13:03] LABS: ACETAMINOPHEN LEVEL < 2.0 UG/ML (10.0-30.0); CK-MB VALUE MASS < 1.0 NG/ML (<3.6); CPK CREATINE PHOSPHOKINASE 67 U/L (26-192); ETHYL ALCOHOL (ETHANOL) < 0.003 % (0.000-0.010); MB/CK RELATIVE INDEX 1.49 (< OR =4); SALICYLATE LEVEL < 1.7 MG/DL (5.0-30.0); TROPONIN I < 0.02 NG/ML (< 0.10)
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
[2021-07-31 13:26] LABS: BASO % 0.5 % (0.0-1.0); EOS # 0.4 10^3/uL (0.0-0.5); EOS % 4.7 % (0.0-3.0); HEMATOCRIT 31.4 % (36.0-47.0); HEMOGLOBIN 9.7 g/dl (12.0-15.5); LYMPH # 2.4 10^3/uL (1.5-5.0); LYMPH % 28.8 % (24.0-44.0); MEAN CORPUSCULAR HGB CONC 30.9 g/dl (32.0-36.5); MEAN CORPUSCULAR VOLUME 77.7 fl (80.0-96.0); MONO # 0.5 10^3/uL (0.0-0.8); MONO % 5.9 % (2.0-8.0); NEUTROPHILS # 5.1 10^3/uL (1.5-8.5); NEUTROPHILS % 59.7 % (36.0-66.0); PLATELET COUNT, AUTOMATED 302 10^3/uL (150-450); RED BLOOD COUNT 4.04 10^6/uL (4.00-5.40); WHITE BLOOD COUNT 8.5 10^3/uL (4.0-10.0)
[2021-07-31 13:53] LABS: AMPHETAMINES LEVEL URINE NEGATIVE (NEGATIVE); BARBITURATES URINE NEGATIVE (NEGATIVE); BENZODIAZEPINES URINE NEGATIVE (NEGATIVE)
[2021-07-31 13:54] LABS: CANNABINOIDS URINE NEGATIVE (NEGATIVE); COCAINE METABOLITE URINE NEGATIVE (NEGATIVE); METHADONE URINE NEGATIVE (NEGATIVE); OPIATES URINE POSITIVE (NEGATIVE); PHENCYCLIDINE URINE NEGATIVE (NEGATIVE)
[2021-07-31] MEDS ORDERED: PERCOCET 5MG/325MG TAB PO ONE (14:05)
[2021-07-31] MEDS ORDERED: ACETAMINOPHEN TAB 650MG DOSE (2X325MG) PO PRN (15:05)
[2021-07-31] MEDS ORDERED: CLON1TAB8 PO (15:10)
[2021-07-31] MEDS ORDERED: HOME MED LIST COMPLETE! XX SCH (15:15)
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
[2021-07-31] MEDS ORDERED: **SFRHE** EPINEPHrine (EPIPEN) 0.3MG/0.3ML SYRINGE INJ PRN (15:50)
[2021-07-31] MEDS ORDERED: ALBUTEROL 90 MCG/ACT 8GM HFA INHALER INH PRN (15:50)
[2021-07-31] MEDS ORDERED: ALBUTEROL SULFATE 2.5 MG/0.5 ML INH NEB SOLN INH PRN (15:50)
[2021-07-31 16:52] VITALS: BP 122/86
--- NOTE | 2021-07-31 17:29 | ECGEPIP ---
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
[2021-07-31] MEDS: FLUoxetine 20 MG CAP PO SCH (18:11)
[2021-07-31] MEDS: hydroCHLOROthiazide 12.5 MG CAPSULE PO SCH (18:11)
[2021-07-31] MEDS: NS 1,000 ML IV SCH (18:12)
[2021-07-31] MEDS: TRUVADA 200MG/300MG TABLET PO SCH (18:12)
[2021-07-31] MEDS: ONDANSETRON 4 MG TAB PO PRN (18:21)
[2021-07-31] MEDS: clonazePAM 1 MG TAB PO SCH ×2 (18:21→20:43)
[2021-07-31] MEDS: RALTEGRAVIR 400 MG TAB (ISENTRESS) PO SCH (20:44)
[2021-07-31] MEDS: NORCO, ANEXSIA 5/325MG TABLET (HYDROcodone/ACETAMINOPHEN) PO SCH (20:45)
[2021-07-31] MEDS ORDERED: lamoTRIgine 100MG TAB PO SCH (21:00)
[2021-07-31] MEDS ORDERED: PREGABALIN 75 MG CAP(LYRICA) PO SCH (21:00)
[2021-07-31] MEDS ORDERED: QUEtiapine FUMARATE 100 MG TAB PO SCH (21:00)
[2021-07-31 22:00] VITALS: BP 114/74
[2021-08-01] MEDS ORDERED: RAMELTEON 8 MG TAB (ROZEREM) PO PRN
[2021-08-01] MEDS: NS 1,000 ML IV SCH (00:41)
[2021-08-01 03:00] VITALS: BP_SYST 112; BP_SYST 113; BP_DIAS 70
[2021-08-01] MEDS: FIORICET TAB PO PRN ×2 (03:04→13:58)
[2021-08-01 06:00] VITALS: BP 101/74
[2021-08-01 06:16] LABS: HEMATOCRIT 29.7 % (36.0-47.0); HEMOGLOBIN 9.2 g/dl (12.0-15.5); MEAN CORPUSCULAR VOLUME 77.5 fl (80.0-96.0); PLATELET COUNT, AUTOMATED 286 10^3/uL (150-450); RED BLOOD COUNT 3.83 10^6/uL (4.00-5.40); WHITE BLOOD COUNT 8.8 10^3/uL (4.0-10.0)
[2021-08-01 06:34] LABS: BLOOD UREA NITROGEN 9 MG/DL (7-18); CALCIUM LEVEL 8.3 MG/DL (8.5-10.1); CARBON DIOXIDE LEVEL 26 MEQ/L (21-32); CHLORIDE LEVEL 108 MEQ/L (98-107); CREATININE FOR GFR 0.61 MG/DL (0.55-1.30); GLOMERULAR FILTRATION RATE > 60.0 (>60); GLUCOSE, FASTING 103 MG/DL (70-100); MAGNESIUM LEVEL 1.9 MG/DL (1.8-2.4); POTASSIUM SERUM 3.6 MEQ/L (3.5-5.1); SODIUM LEVEL 141 MEQ/L (136-145)
[2021-08-01] MEDS ORDERED: NIFEdipine 30 MG XL TAB PO SCH (09:00)
[2021-08-01] MEDS ORDERED: CETIRIZINE (ZyrTEC) 10 MG TAB PO SCH (09:00)
[2021-08-01] MEDS: FLUoxetine 20 MG CAP PO SCH (09:35)
[2021-08-01] MEDS: clonazePAM 1 MG TAB PO SCH (09:35)
[2021-08-01] MEDS: QUEtiapine FUMARATE 50MG TAB PO SCH ×2 (09:35→12:09)
[2021-08-01] MEDS: hydroCHLOROthiazide 12.5 MG CAPSULE PO SCH (09:35)
[2021-08-01] MEDS: NORCO, ANEXSIA 5/325MG TABLET (HYDROcodone/ACETAMINOPHEN) PO SCH (09:36)
[2021-08-01 09:38] VITALS: BP 147/80
[2021-08-01] MEDS: TRUVADA 200MG/300MG TABLET PO SCH (09:38)
[2021-08-01] MEDS: ONDANSETRON 4 MG TAB PO PRN (09:43)
[2021-08-01] MEDS: RALTEGRAVIR 400 MG TAB (ISENTRESS) PO SCH (09:44)
--- NOTE | 2021-08-01 10:44 | REP ---
INDICATION: vaginal bleeding. COMPARISON: 11/28/2020 TECHNIQUE: Transvesical and transvaginal scanning FINDINGS: The uterus measures 8.6 x 4.1 x 6.5 cm. The parenchymal echo pattern is within normal limits. There are no masses. The endometrial echo complex is smooth and unremarkable appearing measuring 8 mm in its greatest thickness. The right ovary measures 2.8 x 2.3 x 2.1 cm and is within normal limits with an RI 0.57. Left ovary measures 6.8 x 3.7 x 4.1 cm. Within the left ovary there is a 4.4 x 2.8 x 2.9 cm sized hypoechoic/anechoic structure which has posterior wall enhancement and increased through transmission. The left ovarian RI was not obtained Urinary bladder measures 6 x 4 x 7 cm. IMPRESSION: Complex appearing cystic structure left adnexa as described above and for which a 2 month follow-up is recommended. This likely represents a hemorrhagic cyst. This represents a change from the prior exam. <Electronically signed by Piotr Farris > 08/01/21 [id number]
[2021-08-01 13:23] LABS: HEMOGLOBIN 9.2 g/dl (12.0-15.5)
[2021-08-01 14:00] VITALS: BP 130/83
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
== END 2021-08-01 15:41 | disposition home or self-care (01) ==
LOC: M ED 08:56 → M ED INP 08:57 → ENRESERV 15:20 → M MSPAV 16:51
PROVIDERS: ADMIT Family Medicine; ATTEND Family Medicine
DX: I49.5 Sick sinus syndrome (principal); I95.1 Orthostatic hypotension; N93.9 Abnormal uterine and vaginal bleeding, unspecified; D64.9 Anemia, unspecified; Z86.718 Personal history of other venous thrombosis and embolism; M32.9 Systemic lupus erythematosus, unspecified; G40.909 Epilepsy, unspecified, not intractable, without status epilepticus; J45.909 Unspecified asthma, uncomplicated; F41.9 Anxiety disorder, unspecified; E66.01 Morbid (severe) obesity due to excess calories; N83.202 Unspecified ovarian cyst, left side; Z79.899 Other long term (current) drug therapy; Z79.01 Long term (current) use of anticoagulants; Z79.891 Long term (current) use of opiate analgesic; Z88.8 Allergy status to other drugs, medicaments and biological substances; Z88.5 Allergy status to narcotic agent; Z91.018 Allergy to other foods; Z91.040 Latex allergy status; Z87.820 Personal history of traumatic brain injury
CPT/HCPCS: 36415; 74177; 76830; 76856; 80047; 80048; 80076; 80143; 80307; 81001; 82077; 82150; 82550; 82553; 83605; 83690; 83735; 84439; 84443; 84702; 85014; 85018; 85025; 85027; 85610; 85730; 86850; 86900; 86901; 87040; 87210; 87631; 87661; 93005; 93041; 96361; 96374; 96375; 99285; J2270; J2405; Q9967

== ENCOUNTER → 2021-08-05 | Outpatient (CLI) | payer OTHER ==
[~2021-08-05] MED LIST changes: +CLON1TAB8 PO; +DIFL150T PO
== END ==
LOC: M PAIN 13:30
PROVIDERS: ATTEND Anesthesiology
DX: G89.29 Other chronic pain (principal); G43.709 Chronic migraine without aura, not intractable, without status migrainosus; S06.9X9A Unspecified intracranial injury with loss of consciousness of unspecified duration, initial encounter; M51.16 Intervertebral disc disorders with radiculopathy, lumbar region; I10 Essential (primary) hypertension; G40.909 Epilepsy, unspecified, not intractable, without status epilepticus; E66.01 Morbid (severe) obesity due to excess calories; I27.20 Pulmonary hypertension, unspecified; Z86.711 Personal history of pulmonary embolism; Z91.040 Latex allergy status; Z88.5 Allergy status to narcotic agent; Z88.8 Allergy status to other drugs, medicaments and biological substances; Z91.018 Allergy to other foods; Y04.8XXA Assault by other bodily force, initial encounter; Y92.9 Unspecified place or not applicable; Y93.9 Activity, unspecified; Y99.9 Unspecified external cause status; Z68.42 Body mass index [BMI] 45.0-49.9, adult; Z79.01 Long term (current) use of anticoagulants; Z79.891 Long term (current) use of opiate analgesic; Z79.899 Other long term (current) drug therapy

== ENCOUNTER 2021-08-07 01:47 | Emergency (ER) | payer OTHER ==
[~2021-08-07] VITALS: Ht 162.6 cm; Wt 120.1 kg
[~2021-08-07 01:47] MED LIST changes: -DIFL150T PO
[2021-08-07 07:51] LABS: BASO # 0.1 10^3/uL (0.0-0.2); BASO % 0.5 % (0.0-1.0); EOS # 0.3 10^3/uL (0.0-0.5); EOS % 3.7 % (0.0-3.0); HEMOGLOBIN 10.6 g/dl (12.0-15.5); LYMPH # 2.3 10^3/uL (1.5-5.0); LYMPH % 25.2 % (24.0-44.0); MEAN CORPUSCULAR HEMOGLOBIN 23.7 pg (27.0-33.0); MEAN CORPUSCULAR HGB CONC 30.3 g/dl (32.0-36.5); MEAN CORPUSCULAR VOLUME 78.3 fl (80.0-96.0); MONO # 0.6 10^3/uL (0.0-0.8); NEUTROPHILS # 5.9 10^3/uL (1.5-8.5); NEUTROPHILS % 64.3 % (36.0-66.0); PLATELET COUNT, AUTOMATED 362 10^3/uL (150-450); RED BLOOD COUNT 4.47 10^6/uL (4.00-5.40); WHITE BLOOD COUNT 9.2 10^3/uL (4.0-10.0)
[2021-08-07 08:11] VITALS: BP 128/82
[2021-08-07] MEDS ORDERED: NS 1,000 ML IV ONE (08:25)
[2021-08-07 08:32] LABS: BLOOD UREA NITROGEN 11 MG/DL (7-18); CALCIUM LEVEL 8.8 MG/DL (8.5-10.1); CARBON DIOXIDE LEVEL 24 MEQ/L (21-32); CHLORIDE LEVEL 113 MEQ/L (98-107); GLOMERULAR FILTRATION RATE > 60.0 (>60); GLUCOSE, FASTING 92 MG/DL (70-100); HCG, SERUM QUANTITATIVE < 1.0 MIU/ML; SODIUM LEVEL 144 MEQ/L (136-145)
[2021-08-07] MEDS ORDERED: ACETAMINOPHEN 500 MG TAB PO ONE (08:50)
[2021-08-07] MEDS ORDERED: DIFL150T PO (09:42)
== END 2021-08-07 09:48 | disposition home or self-care (01) ==
LOC: M ED 01:47
DX: B37.3 Candidiasis of vulva and vagina (principal); R10.2 Pelvic and perineal pain; N93.9 Abnormal uterine and vaginal bleeding, unspecified; I10 Essential (primary) hypertension; D64.9 Anemia, unspecified; M32.9 Systemic lupus erythematosus, unspecified; Z79.899 Other long term (current) drug therapy; Z91.018 Allergy to other foods; Z88.8 Allergy status to other drugs, medicaments and biological substances; Z91.040 Latex allergy status; Z87.42 Personal history of other diseases of the female genital tract; Z90.49 Acquired absence of other specified parts of digestive tract; Z98.890 Other specified postprocedural states; Z87.59 Personal history of other complications of pregnancy, childbirth and the puerperium

== ENCOUNTER → 2021-08-09 | Outpatient (REF) | payer OTHER ==
[~2021-08-09] MED LIST changes: +DIFL150T PO
== END ==
LOC: M SFHCWAGY 12:54
PROVIDERS: ATTEND Advanced Practice Midwife
DX: Z12.4 Encounter for screening for malignant neoplasm of cervix (principal)

== ENCOUNTER → 2021-08-09 | Outpatient (CLI) | payer OTHER ==
[2021-08-09 13:22] LABS: BASO # 0.1 10^3/uL (0.0-0.2); BASO % 0.5 % (0.0-1.0); EOS # 0.4 10^3/uL (0.0-0.5); EOS % 3.8 % (0.0-3.0); HEMATOCRIT 30.2 % (36.0-47.0); HEMOGLOBIN 9.1 g/dl (12.0-15.5); LYMPH # 2.7 10^3/uL (1.5-5.0); LYMPH % 25.7 % (24.0-44.0); MEAN CORPUSCULAR HEMOGLOBIN 23.5 pg (27.0-33.0); MEAN CORPUSCULAR HGB CONC 30.1 g/dl (32.0-36.5); MONO # 0.6 10^3/uL (0.0-0.8); MONO % 5.5 % (2.0-8.0); NEUTROPHILS # 6.8 10^3/uL (1.5-8.5); NEUTROPHILS % 63.9 % (36.0-66.0); PLATELET COUNT, AUTOMATED 425 10^3/uL (150-450); RED BLOOD COUNT 3.87 10^6/uL (4.00-5.40); WHITE BLOOD COUNT 10.6 10^3/uL (4.0-10.0)
[2021-08-09 13:23] LABS: APPEARANCE, URINE HAZY (CLEAR); BACTERIA, URINE AUTO NEGATIVE (NEGATIVE); BILIRUBIN, URINE AUTO NEGATIVE (NEGATIVE); BLOOD, URINE BLOOD NEGATIVE (NEGATIVE); COLOR, URINE YELLOW (YELLOW); GLUCOSE, URINE (UA) AUTO NEGATIVE (NEGATIVE); KETONE, URINE AUTO NEGATIVE (NEGATIVE); LEUKOCYTE ESTERASE, URINE AUTO 1+ (NEGATIVE); MUCUS, URINE SMALL (NEGATIVE); NITRITE, URINE AUTO NEGATIVE (NEGATIVE); PROTEIN, URINE AUTO NEGATIVE (NEGATIVE); RBC, URINE AUTO 1 /HPF (0-3); SPECIFIC GRAVITY URINE AUTO 1.028 (1.002-1.035); SQUAMOUS EPITHELIAL CELL UR AU 2 /HPF (0-6); UROBILINOGEN, URINE AUTO 0.2 mg/dL (0.0-2.0); WBC, URINE AUTO 2 /HPF (0-3)
[2021-08-09 13:43] LABS: TOTAL PROTEIN,RANDOM URINE 22.8 MG/DL (0.0-12.0)
[2021-08-09 13:52] LABS: ALBUMIN 3.1 GM/DL (3.2-5.2); ALT/SGPT 18 U/L (12-78); BILIRUBIN,TOTAL 0.1 MG/DL (0.2-1.0); BLOOD UREA NITROGEN 7 MG/DL (7-18); C REACTIVE PROTEIN QUANTITATIV 2.21 MG/DL (0.00-0.30); CALCIUM LEVEL 8.7 MG/DL (8.5-10.1); CARBON DIOXIDE LEVEL 27 MEQ/L (21-32); CHLORIDE LEVEL 109 MEQ/L (98-107); COMPLEMENT C3 167 MG/DL (90-180); COMPLEMENT C4 44 MG/DL (10-40); CREATININE FOR GFR 0.64 MG/DL (0.55-1.30); GLOMERULAR FILTRATION RATE > 60.0 (>60); GLUCOSE, FASTING 100 MG/DL (70-100); POTASSIUM SERUM 4.3 MEQ/L (3.5-5.1); SODIUM LEVEL 142 MEQ/L (136-145); TOTAL PROTEIN 6.1 GM/DL (6.4-8.2)
[2021-08-09 14:24] LABS: ERYTHROCYTE SEDIMENTATION RATE 59 mm/hr (0-20)
== END ==
LOC: M PLALAB 09:25
PROVIDERS: ATTEND Internal Medicine
DX: R76.8 Other specified abnormal immunological findings in serum (principal)

== ENCOUNTER → 2021-08-25 | Outpatient (CLI) | payer OTHER ==
[2021-08-25 16:57] LABS: BASO # 0.1 10^3/uL (0.0-0.2); BASO % 0.4 % (0.0-1.0); EOS # 0.5 10^3/uL (0.0-0.5); EOS % 4.2 % (0.0-3.0); LYMPH # 3.1 10^3/uL (1.5-5.0); LYMPH % 27.5 % (24.0-44.0); MEAN CORPUSCULAR HEMOGLOBIN 23.6 pg (27.0-33.0); MEAN CORPUSCULAR HGB CONC 30.3 g/dl (32.0-36.5); MONO # 0.5 10^3/uL (0.0-0.8); MONO % 4.5 % (2.0-8.0); NEUTROPHILS % 63.1 % (36.0-66.0); PLATELET COUNT, AUTOMATED 309 10^3/uL (150-450); RED BLOOD COUNT 4.23 10^6/uL (4.00-5.40); WHITE BLOOD COUNT 11.1 10^3/uL (4.0-10.0)
[2021-08-25 17:13] LABS: ALBUMIN 3.3 GM/DL (3.2-5.2); ALT/SGPT 20 U/L (12-78); BILIRUBIN,TOTAL 0.1 MG/DL (0.2-1.0); BLOOD UREA NITROGEN 10 MG/DL (7-18); CALCIUM LEVEL 9.2 MG/DL (8.5-10.1); CARBON DIOXIDE LEVEL 27 MEQ/L (21-32); CHLORIDE LEVEL 107 MEQ/L (98-107); CREATININE FOR GFR 0.62 MG/DL (0.55-1.30); GLOMERULAR FILTRATION RATE > 60.0 (>60); GLUCOSE, FASTING 90 MG/DL (70-100); POTASSIUM SERUM 3.9 MEQ/L (3.5-5.1); SODIUM LEVEL 140 MEQ/L (136-145); TOTAL PROTEIN 6.6 GM/DL (6.4-8.2); VITAMIN B12 LEVEL 893 PG/ML (247-911)
== END ==
LOC: M LAB 15:43
PROVIDERS: ATTEND Psychiatry & Neurology Neurology
DX: G40.909 Epilepsy, unspecified, not intractable, without status epilepticus (principal)

== ENCOUNTER → 2021-08-25 | Outpatient (CLI) | payer OTHER ==
[2021-08-25 16:57] LABS: BASO # 0.1 10^3/uL (0.0-0.2); BASO % 0.6 % (0.0-1.0); EOS # 0.4 10^3/uL (0.0-0.5); EOS % 3.8 % (0.0-3.0); HEMATOCRIT 32.3 % (36.0-47.0); HEMOGLOBIN 9.9 g/dl (12.0-15.5); LYMPH # 3.1 10^3/uL (1.5-5.0); LYMPH % 27.2 % (24.0-44.0); MEAN CORPUSCULAR HEMOGLOBIN 23.7 pg (27.0-33.0); MEAN CORPUSCULAR HGB CONC 30.7 g/dl (32.0-36.5); MEAN CORPUSCULAR VOLUME 77.3 fl (80.0-96.0); MONO # 0.6 10^3/uL (0.0-0.8); MONO % 5.4 % (2.0-8.0); NEUTROPHILS # 7.1 10^3/uL (1.5-8.5); NEUTROPHILS % 62.6 % (36.0-66.0); PLATELET COUNT, AUTOMATED 292 10^3/uL (150-450); RED BLOOD COUNT 4.18 10^6/uL (4.00-5.40); WHITE BLOOD COUNT 11.3 10^3/uL (4.0-10.0)
== END ==
LOC: M LAB 15:45
PROVIDERS: ATTEND Internal Medicine
DX: M32.9 Systemic lupus erythematosus, unspecified (principal)

== ENCOUNTER → 2021-08-25 | Outpatient (CLI) | payer OTHER | LOC: M LAB 15:48 | PROVIDERS: ATTEND Obstetrics & Gynecology | DX: N91.1 Secondary amenorrhea (principal) ==

== ENCOUNTER → 2021-08-31 | Outpatient (CLI) | payer OTHER ==
--- NOTE | 2021-09-01 06:15 | REP ---
INDICATION: PELVIC PAIN COMPARISON: 08/01/2021 TECHNIQUE: Transabdominal pelvic ultrasound followed by transvaginal examination for better evaluation of the endometrium and adnexa with color Doppler evaluation of the ovaries. FINDINGS: Bladder is unremarkable and measures 4.2 x 3.4 x 7.5 cm. Heterogeneous anteverted uterus measures 9.4 x 4.3 x 5.0 cm. The endometrial complex measures 6.2 mm thickness. No discrete uterine or endometrial abnormalities are appreciated. Bilateral ovaries are normal in appearance and vascularity without evidence for torsion. Right ovary measures 3.4 x 2.9 x 3.5 cm and includes new 2.3 cm complex physiologic cyst; R I = 0.45. Left ovary measures 3.6 x 2.7 x 2.3 cm; R I = 0.46. Previously noted left ovarian lesion has resolved. No pelvic fluid or adnexal mass lesion. IMPRESSION: Relatively normal examination. Physiologic changes suggested. Previous physiologic left ovarian cyst resolved. <Electronically signed by oHssein Ingram > 09/01/21 [id number]
== END ==
LOC: M RAD 14:09
PROVIDERS: ATTEND Obstetrics & Gynecology
DX: R10.2 Pelvic and perineal pain (principal)

== ENCOUNTER → 2021-09-02 | Outpatient (CLI) | payer OTHER ==
--- NOTE | 2021-09-02 15:46 | REP ---
INDICATION: PAIN IN RIGHT WRIST COMPARISON: Right hand 04/02/2021. TECHNIQUE: Four views right wrist. FINDINGS: There is no evidence of acute fracture, dislocation, or intrinsic bone disease. IMPRESSION: No fracture or dislocation. <Electronically signed by Isreal Sinha > 09/02/21 [id number]
== END ==
LOC: M RAD 15:25
PROVIDERS: ATTEND Physician Assistant
DX: M25.531 Pain in right wrist (principal)

== ENCOUNTER → 2021-09-06 | Outpatient (CLI) | payer OTHER | LOC: M PLAIMG 14:19 | PROVIDERS: ATTEND Psychiatry & Neurology Neurology | DX: Z53.20 Procedure and treatment not carried out because of patient's decision for unspecified reasons (principal) ==

== ENCOUNTER → 2021-09-20 | Outpatient (CLI) | payer OTHER ==
--- NOTE | 2021-09-20 09:41 | REPVR ---
PROCEDURE INFORMATION: Exam: MR Head Without Contrast Exam date and time: 09/20/2021 8:13 AM Age: 31 years old Clinical indication: Condition or disease; Convulsions or seizures; Epilepsy; Severity not specified; Unspecified TECHNIQUE: Imaging protocol: MR of the head without contrast. COMPARISON: CT Head without contrast 04/02/2021 8:49 PM FINDINGS: Brain: No abnormal areas of signal intensity are seen. Diffusion images are normal. No evidence of acute infarction. No evidence of acute intracranial hemorrhage. No extra-axial fluid collections. Ventricles and cerebrospinal fluid spaces are normal in size and configuration for the patient's age. There is no evidence of mass-effect or midline shift. Flow voids of the [place] and major cerebral vascular structures appear intact. Craniocervical junction appears unremarkable, with normal position of cerebellar tonsils and no evidence of Chiari I malformation. Hippocampi appear symmetric in size and signal intensity without evidence of mesial temporal sclerosis. Cortical architecture appears unremarkable without evidence of migrational abnormality. Cerebral ventricles: Normal. No ventriculomegaly. 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 Bones/joints: Unremarkable as visualized. Paranasal sinuses: There is mild mucosal thickening in paranasal sinuses. Mastoid air cells: No significant mastoid effusion. Orbital cavity: Unremarkable. Soft tissues: Unremarkable as visualized. IMPRESSION: Unremarkable brain MRI for age. Electronically signed by: Shantal Acevedo On 09/20/2021 09:41:02 AM
== END ==
LOC: M RAD 09-07 06:09
PROVIDERS: ATTEND Psychiatry & Neurology Neurology
DX: G40.909 Epilepsy, unspecified, not intractable, without status epilepticus (principal)

== ENCOUNTER 2021-10-02 07:50 | Emergency (ER) | payer OTHER ==
[~2021-10-02] VITALS: Ht 162.6 cm; Wt 123.2 kg
[2021-10-02] MEDS ORDERED: HYDR12CA PO (08:05)
[2021-10-02 08:18] LABS: BASO # 0.1 10^3/uL (0.0-0.2); BASO % 0.4 % (0.0-1.0); EOS # 0.6 10^3/uL (0.0-0.5); HEMATOCRIT 30.7 % (36.0-47.0); HEMOGLOBIN 9.4 g/dl (12.0-15.5); LYMPH # 2.8 10^3/uL (1.5-5.0); LYMPH % 24.5 % (24.0-44.0); MEAN CORPUSCULAR HEMOGLOBIN 23.6 pg (27.0-33.0); MEAN CORPUSCULAR HGB CONC 30.6 g/dl (32.0-36.5); MEAN CORPUSCULAR VOLUME 76.9 fl (80.0-96.0); MONO # 0.7 10^3/uL (0.0-0.8); NEUTROPHILS # 7.4 10^3/uL (1.5-8.5); NEUTROPHILS % 63.6 % (36.0-66.0); PLATELET COUNT, AUTOMATED 374 10^3/uL (150-450); RED BLOOD COUNT 3.99 10^6/uL (4.00-5.40); WHITE BLOOD COUNT 11.6 10^3/uL (4.0-10.0)
[2021-10-02 08:45] LABS: ERYTHROCYTE SEDIMENTATION RATE 49 mm/hr (0-20)
[2021-10-02 08:48] LABS: BLOOD UREA NITROGEN 10 MG/DL (7-18); C REACTIVE PROTEIN QUANTITATIV 2.79 MG/DL (0.00-0.30); CALCIUM LEVEL 8.5 MG/DL (8.5-10.1); CARBON DIOXIDE LEVEL 27 MEQ/L (21-32); CHLORIDE LEVEL 109 MEQ/L (98-107); CREATININE FOR GFR 0.61 MG/DL (0.55-1.30); GLOMERULAR FILTRATION RATE > 60.0 (>60); GLUCOSE, FASTING 80 MG/DL (70-100); POTASSIUM SERUM 3.6 MEQ/L (3.5-5.1); SODIUM LEVEL 142 MEQ/L (136-145)
[2021-10-02] MEDS ORDERED: predniSONE 20 MG TAB PO ONE (12:00)
[2021-10-02] MEDS ORDERED: PRED20TA PO (12:07)
[2021-10-02 12:24] VITALS: BP 160/98
[2021-10-02] MEDS ORDERED: ANEXSIA, NORCO 7.5MG/325MG TABLET(HYDROCODONE/APAP) PO ONE (13:00)
[2021-10-03] MEDS ORDERED: HYDR-3713 PO (13:28)
== END 2021-10-02 12:29 | disposition home or self-care (01) ==
LOC: M ED 07:50
DX: M32.9 Systemic lupus erythematosus, unspecified (principal); D64.9 Anemia, unspecified; Z88.8 Allergy status to other drugs, medicaments and biological substances; Z91.018 Allergy to other foods; Z91.040 Latex allergy status; Z79.899 Other long term (current) drug therapy
CPT/HCPCS: 36415; 80048; 85025; 85652; 86140; 99283; J7512

== ENCOUNTER 2021-10-03 06:24 | Emergency (ER) | payer OTHER ==
[~2021-10-03] VITALS: Ht 162.6 cm; Wt 124.9 kg
[2021-10-03 06:25] VITALS: BP 171/103
[2021-10-03] MEDS ORDERED: methylPREDNISolone 125MG 2ML VIAL IV ONE (08:55)
[2021-10-03] MEDS ORDERED: NS 1,000 ML IV ONE (08:55)
[2021-10-03] MEDS ORDERED: MORPHINE 2 MG/ML 1ML VIAL (J2270) IV ONE (08:55)
[2021-10-03] MEDS ORDERED: ONDANSETRON 4MG/2ML VIAL IV ONE (08:55)
[2021-10-03 09:23] LABS: BASO % 0.2 % (0.0-1.0); EOS # 0.3 10^3/uL (0.0-0.5); EOS % 1.8 % (0.0-3.0); HEMATOCRIT 32.4 % (36.0-47.0); HEMOGLOBIN 9.7 g/dl (12.0-15.5); LYMPH # 3.1 10^3/uL (1.5-5.0); LYMPH % 18.9 % (24.0-44.0); MEAN CORPUSCULAR HEMOGLOBIN 23.4 pg (27.0-33.0); MEAN CORPUSCULAR HGB CONC 29.9 g/dl (32.0-36.5); MEAN CORPUSCULAR VOLUME 78.3 fl (80.0-96.0); MONO # 0.8 10^3/uL (0.0-0.8); MONO % 4.9 % (2.0-8.0); NEUTROPHILS # 12.1 10^3/uL (1.5-8.5); NEUTROPHILS % 73.7 % (36.0-66.0); PLATELET COUNT, AUTOMATED 404 10^3/uL (150-450); RED BLOOD COUNT 4.14 10^6/uL (4.00-5.40); WHITE BLOOD COUNT 16.5 10^3/uL (4.0-10.0)
[2021-10-03 09:53] LABS: ERYTHROCYTE SEDIMENTATION RATE 52 mm/hr (0-20)
[2021-10-03 09:55] LABS: ALBUMIN 3.2 GM/DL (3.2-5.2); ALT/SGPT 19 U/L (12-78); BILIRUBIN,DIRECT < 0.1 MG/DL (0.0-0.2); BILIRUBIN,TOTAL < 0.1 MG/DL (0.2-1.0); BLOOD UREA NITROGEN 9 MG/DL (7-18); CALCIUM LEVEL 8.9 MG/DL (8.5-10.1); CARBON DIOXIDE LEVEL 26 MEQ/L (21-32); CHLORIDE LEVEL 112 MEQ/L (98-107); GLOMERULAR FILTRATION RATE > 60.0 (>60); GLUCOSE, FASTING 130 MG/DL (70-100); POTASSIUM SERUM 3.4 MEQ/L (3.5-5.1); SODIUM LEVEL 145 MEQ/L (136-145); TOTAL PROTEIN 6.4 GM/DL (6.4-8.2)
[2021-10-03] MEDS ORDERED: IPRATROPIUM 0.5MG/ALBUTEROL 2.5MG INH SOL UD 3ML (DUONEB) NEB ONE (11:25)
[2021-10-03] MEDS ORDERED: PERCOCET 5MG/325MG TAB PO ONE (11:25)
[2021-10-03] MEDS ORDERED: ALBUTEROL SULFATE 2.5 MG/0.5 ML INH NEB SOLN NEB ONE (11:25)
[2021-10-03] MEDS ORDERED: diphenhydrAMINE 50MG/ML VIAL (J1200) IV STA (12:07)
[2021-10-03] MEDS ORDERED: FAMOTIDINE IV BAG 20 MG in IV 1 EA IV ONE (12:10)
[2021-10-03] MEDS ORDERED: HYDR-3713 PO (13:28)
[2021-10-04] MEDS ORDERED: FREM225A SQ (08:04)
[2021-10-04] MEDS ORDERED: BOTO200I INJ (08:04)
[2021-10-04] MEDS ORDERED: COLA100C5 PO (08:04)
[2021-10-04] MEDS ORDERED: ELIQ5TAB PO (08:04)
[2021-10-04] MEDS ORDERED: DRIS50003 PO (08:04)
[2021-10-04] MEDS ORDERED: FERR1TAB8 PO (08:04)
== END 2021-10-03 13:44 | disposition home or self-care (01) ==
LOC: M ED 06:24
DX: M32.9 Systemic lupus erythematosus, unspecified (principal); J45.909 Unspecified asthma, uncomplicated; I10 Essential (primary) hypertension; G40.909 Epilepsy, unspecified, not intractable, without status epilepticus; E03.9 Hypothyroidism, unspecified; F31.81 Bipolar II disorder; F43.10 Post-traumatic stress disorder, unspecified; Z79.899 Other long term (current) drug therapy; Z79.01 Long term (current) use of anticoagulants; Z88.8 Allergy status to other drugs, medicaments and biological substances; Z91.018 Allergy to other foods; Z91.040 Latex allergy status
CPT/HCPCS: 36415; 80048; 80076; 85025; 85652; 86140; 87798; 94640; 96361; 96365; 96375; 99284; J1200; J2270; J2405; J2930

== ENCOUNTER 2021-10-03 21:41 | Inpatient (IN) | payer OTHER ==
[~2021-10-03] VITALS: Ht 162.6 cm; Wt 128.6 kg
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
--- OUTSIDE RECORDS SUMMARY | 2021-10-04 04:43 | CCD ---
Author Author [facility] Organization [facility] Address Unknown Phone Unavailable Care Team Providers Care Material Expeditor Name Role Phone Kris Barrientos Unavailable PROBLEMS Type Condition ICD9-CM Code [id number] Code Onset Dates Condition S tatus W/U Status Risk SNOMED Code Notes Problem Migraine, unspecified, not intractable, without status migrainosus G43.909 Active confirmed 77017329 Problem Lumbosacral spondylosis without myelopathy M47.817 Active confirmed 23749445 Problem Secondary amenorrhea N91.1 Active confirmed [id number] Problem Chronic migraine without aur a, not intractable, without status migrainosus G43.709 Active confirmed [id number] Problem Other chronic pain G89.29 Active confirmed 8 6021175 Problem Chronic migraine G43.709 Active confirmed 42 [id number] 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 A ctive confirmed [id number] ALLERGIES Allergen (clinical drug ingredient) Drug/Non Drug Allergy do cumented on EMR Reaction Allergy Type Onset Date Status tramadol Tramadol Unknown Drug Allergy Active avocado allergenic extract Avocado (Diagnostic)(ND Code:002 68-6104-10) Anaphylaxis Drug Allergy Active enoxaparin Lovenox(NDC Code:[address]-62) Unknown Drug Allergy Active famotidine Pepcid(NDC Code:[address]-83) Nausea/Vomiting/Rash Drug A llergy Active promethazine Phenergan(NDC Code:[address]-29) Nausea/Vomiting Drug A llergy Active Kiwi Anaphylaxis Non Drug Allergy Active poractant carrol Pork-derived Products Unknown Drug Allergy Active Latex Exam Gloves Hives/anaphylaxis Drug Allergy Active banana allergenic extract Banana (Diagnostic)([facility] Code:56464 -6105-10) Anaphylaxis Drug Allergy Active hydroxychloroquine Plaquenil([facility] Code:[address]-71) Anaphylaxis Drug Allergy Active ENCOUNTERS from 1989 to 2021-09-28 Encounter Location Date Provider Diagnosis [facility] [address] [phone] [place] [address] Sep, Kris Barrientos Other chronic pain G 89.29 and Chronic migraine G43.709 IMMUNIZATIONS No Information SOCIAL HISTORY Tobacco Use: Social History Observation Description Date Details (start date - stop date) Former Smoker Sex Assigned At : Social History Observation Description Sex Assigned At Unknown Education: Question Answer Notes Level of Education: College Language: Question Answer Notes Languages spoken: Lithuanian Buddhist: Question Answer Notes Buddhist No baptist beliefs that would impact health care. Alcohol [...] ICD G43.709 BOTOX on 02/21/21 at 1:00 07 Feb, 2021 Not-Taking NIFEdipine ER 30 MG 1 tablet [...] Information RESULTS No Results REASON FOR VISIT Refills hydrocodone, Fioricet MEDICAL (GENERAL) HISTORY Type Description Date [...] Notes Treatment Notes Treatm ent Clinical Notes Sep, Other chronic pain (ICD-10 - G89.29) Sep, Chronic migraine (ICD-10 - G43.709) PLAN OF TREATMENT Medication Medication Name Sig Start Date Stop Date Fioricet 50-325-40 MG 1 tablet as needed Orally ev darlene 4 hrs PRN headache MDD3 for 30 days HYDROcodone-Acetaminophen 5-325 MG 1 tablet as needed Orally twice daily as needed MDD2 for 30 days Sep, Next Appt Details Provider Name:Kris Barrientos, 2021-10-17 10:40:00 AM, [address], , [place], [address], Provider Name:Kris Floyd, 2021-11-03 02:15:00 PM, [address] [place] [address], , [place], [address], Provider Name:Kris Floyd, 2021-11-16 11:15:00 AM, [address], , [place], [address], Insurance Providers Payer Name Payer Address Payer Phone Insured Name Patient Relati onship to Insured Coverage Start Date Coverage End Date [facility] [employer] CLAIMS DEPT [phone] COUNT INCLUDES THE [facility] [phone] WINSOME [id number] self
--- OUTSIDE RECORDS SUMMARY | 2021-10-04 04:43 | CCD ---
Author Organization Unknown Address [address] [place] [address] Phone [phone] Care Team Providers [employer] Operator Name Role Phone CHATA URBANO MD 121 [phone] CRALITO SANTIAGO MD 129 [phone] [facility] 212 [phone] Allergies Code Code System Name Reaction Severity Status Onset 20240413 RxNorm Plaquenil Active 06/24/2020 Avocado Anaphylaxis Severe Active 772771 RxNorm Banana Anaphylaxis Active 5204626 RxNorm Latex Active 8745 RxNorm Promethazine Rash Active Toradol Other Active Notes: LOVANOX - Reaction: seizure thre shold | FINERGAN - Reaction: vomiting | TRUE LATEX - Reaction: anaphlaxis Aspirine- contraindicated do to other meds being taken Medications Name Status Start Date Stop Date acetaminophen 300 mg-codeine 60 mg table t TAKE ONE TABLET BY MOUTH EVERY 4 TO 6 HOURS NEEDED FOR PAIN MAXIMUM DAILY DOSE 4 Completed 03/07/2021 acetaminophen 325 mg tablet Completed 08/12 acetaminophen ER 650 mg tablet,extended release TAKE ONE TABLET BY MOUTH EVERY 8 HOURS NEEDED FOR PAIN Completed 08/08/2021 Ajovy 225 mg/1.5 mL subcutaneous auto-in jector INJECT 4.5ML UNDER SKIN EVERY THREE MONTHS DIRECTED Active Not available Ajovy Syringe 225 mg/1.5 mL subcutaneous Completed 09/13/2020 albuterol sulfate 1.25 mg/3 mL solution for nebulization Active Not available albuterol sulfate HFA 90 mcg/actuation a erosol inhaler INHALE ONE PUFF BY MOUTH EVERY 4 TO 6 HOURS NEEDED Active Not available alcohol swabs Active Not available amoxicillin 875 mg-potassium clavulanate 125 mg tablet TAKE ONE TABLET BY MOUTH TWICE A DAY DIRECTED Completed 09/13/2021 aspirin 81 mg tablet,delayed release Completed 09/13/2020 azithromycin 250 mg tablet Completed 08/02 bacitracin 500 unit/gram topical ointment Completed 09/13/2020 BD Allergy Syringe 1 mL 28 gauge x 1/2" Completed 07/19/2021 BD Luer-Candice Syringe 3 mL 25 gauge x 1" Completed 07/19/2021 Benlysta 200 mg/mL subcutaneous auto-injector Active Not available buspirone 5 mg tablet TAKE ONE TABLET BY MOUTH TWICE A DAY Completed gakgjeyqqq-qbyowgsmcisjl-ntvefrpz 50 mg- 300 mg-40 mg capsule TAKE ONE CAPSULE BY MOUTH EVERY 4 HOURS NEEDED Completed 03/01/2021 qkljchvkrn-qinijjlnczdqe-vyxnvald 50 mg- 325 mg-40 mg tablet TAKE ONE TABLET BY MOUTH EVERY 4 HOURS NEEDED FOR HEADACHE Active Not available cephalexin 500 mg capsule Completed 2019 cetirizine 10 mg tablet TAKE ONE TABLET BY MOUTH EVERY DAY Active Not available cholecalciferol (vitamin D3) 25 mcg (1,0 00 unit) tablet Take 1 tablet every day by oral route for 30 days. Completed 11/08/2020 cholecalciferol (vitamin D3) 50 mcg (2,0 00 unit) capsule TAKE ONE CAPSULE BY MOUTH EVERY DAY Active Not available clonazepam 0.5 mg tablet Completed 020 clonazepam 1 mg tablet TAKE 1 TABLET BY MOUTH THREE TIMES A DAY NEEDED FOR ANXIETY MAX DAILY DOSE 3 TABLETS Active Not available clonazepam 2 mg tablet Completed cyclobenzaprine 10 mg tablet Completed 05/2021 Deblitane 0.35 mg tablet TAKE ONE TABLET BY MOUTH EVERY DAY Completed 02/11 docusate sodium 100 mg capsule TAKE ONE CAPSULE BY MOUTH THREE TIMES A DAY NEEDED Active Not available Eliquis 5 mg tablet TAKE ONE TABLET BY MOUTH TWICE A DAY Active No t available emtricitabine 200 mg-tenofovir disoproxi l fumarate 300 mg tablet TAKE 1 TABLET BY MOUTH DAILY Completed 08/25/2021 epinephrine 0.3 mg/0.3 mL injection, aut o-injector USE DIRECTED FOR ALLERGIC REACTION Active N ot available ergocalciferol (vitamin D2) 1,250 mcg (5 0,000 unit) capsule TAKE 1 CAPSULE BY MOUTH EVERY WEEK Active Not available esomeprazole magnesium 20 mg capsule,delayed release Completed 09/13/2020 FeroSul 325 mg (65 mg iron) tablet TAKE ONE TABLET BY MOUTH ONCE DAILY Active Not available ferrous sulfate 324 mg (65 mg iron) tablet,delayed release Compl eted 09/13/2020 fluconazole 150 mg tablet Completed 2020 fluoxetine 20 mg capsule TAKE ONE CAPSULE BY MOUTH EVERY DAY Completed fluoxetine 40 mg capsule TAKE TWO CAPSULES BY MOUTH EVERY MORNING Active Not available fondaparinux 2.5 mg/0.5 mL subcutaneous solution syringe Complet ed 09/13/2020 gabapentin 100 mg capsule Completed 2020 gabapentin 600 mg tablet Completed 020 heparin (porcine) 5,000 unit/mL injection solution Completed 09/13/2020 hydralazine 25 mg tablet TAKE ONE TABLET BY MOUTH EVERY 6 HOURS Completed 07/19/2021 hydrochlorothiazide 12.5 mg capsule TAKE ONE CAPSULE BY MOUTH EVERY DAY Active Not available hydrochlorothiazide 12.5 mg tablet Take 1 tablet every day by oral route. Completed 11/08/2020 hydrochlorothiazide 25 mg tablet TAKE ONE TABLET BY MOUTH EVERY DAY Completed 07/14 hydrocodone 5 mg-acetaminophen 325 mg ta blet TAKE ONE TABLET BY MOUTH TWICE A DAY NEEDED MAXIMUM DAILY DOSE 2 Active Not available hydroxyzine HCl 25 mg tablet TAKE ONE TABLET BY MOUTH THREE TIMES A DAY FOR ANXIETY Completed 08/02/2021 ibuprofen 600 mg tablet TAKE ONE TABLET BY MOUTH EVERY 6 HOURS NEEDED FOR PAIN Completed 11/08/2020 ibuprofen 800 mg tablet Completed 07/19/20 ipratropium 0.5 mg-albuterol 3 mg (2.5 mg base)/3 mL nebulizatio n soln Active Not available Isentress 400 mg tablet TAKE ONE TABLET BY MOUTH TWICE A DAY Completed ketoconazole 2 % topical cream APPLY TO AFFECTED AREA S ONCE A DAY DIRECTED Completed 08/25/2021 lamotrigine 100 mg tablet TAKE ONE TABLET BY MOUTH EVERY MORNING Active 09/13/2021 Not available lamotrigine 150 mg tablet TAKE 1 TABLET BY MOUTH EVERY NIGHT Active Not available lamotrigine 25 mg tablet TAKE ONE TABLET BY MOUTH TWICE A DAY Completed levetiracetam 1,000 mg tablet 1 Completed 09/13/2020 levetiracetam 750 mg tablet TAKE TWO TABLETS BY MOUTH TWICE A DAY Completed 0 08/02/2021 lidocaine 4 % topical cream Completed 12/2019 lidocaine-prilocaine 2.5 %-2.5 % topical cream Completed 10/05/2020 magnesium oxide 400 mg (241.3 mg magnesium) tablet Completed 09/13/2020 metformin 500 mg tablet Completed 09/13/20 methylprednisolone 4 mg tablet Completed 07/19/2021 metoclopramide 10 mg tablet Completed 12/2019 metronidazole 500 mg tablet Completed 12/2019 Nexium 24HR 20 mg tablet,delayed release Completed 09/13/2020 nifedipine ER 30 mg tablet,extended rele ase TAKE ONE TABLET BY MOUTH EVERY DAY Active Not available ondansetron 8 mg disintegrating tablet Completed 09/13/2020 ondansetron HCl 4 mg tablet TAKE ONE TABLET BY MOUTH EVERY 8 HOURS NEEDED FOR NAUSEA FOR UP TO 7 DAYS Active Not available oxycodone 10 mg tablet Completed 0 oxycodone 5 mg tablet Completed 09/13/2020 oxycodone-acetaminophen 5 mg-325 mg tablet Completed 09/13/2020 prazosin 1 mg capsule Completed 09/13/2020 prednisone 10 mg tablet TAKE 4 TABLETS BY MOUTH ONCE A DAY FOR 2 DAYS Completed 07/19/2021 prednisone 20 mg tablet Take 3 tablets po day 1-3, 2 tablets day 4-7, 1 tablet day 8-10 Completed 11/08/2020 prednisone 50 mg tablet Completed 09/13/20 pregabalin 75 mg capsule TAKE ONE CAPSULE BY MOUTH EVERY DAY MAXIMUM DAILY DOSE 1 Active Not available Vitamin 27 mg iron-0.8 mg table t TAKE ONE TABLET BY MOUTH EVERY DAY Completed 05/2021 progesterone micronized 200 mg capsule Completed 09/13/2020 pv blood pressure monitor aut USE DIRECTED Active Not available quetiapine 100 mg tablet Completed 020 quetiapine 300 mg tablet TAKE ONE TABLET BY MOUTH AT BEDTIME Active Not available quetiapine 50 mg tablet TAKE ONE TABLET BY MOUTH EVERY MORNING AND AT NOON Active Not available topiramate 25 mg tablet Completed 09/13/20 topiramate 50 mg tablet Completed 09/13/20 tramadol 50 mg tablet Completed 08/02/2021 Vitamin C 500 mg tablet Completed 09/13/20 Xarelto 15 mg tablet Take 1 tablet every day by oral route as directed. Completed 10/19/2020 Xarelto 20 mg tablet Take 1 tablet every day by oral route. Completed 10/19/2020 zolpidem 10 mg tablet TAKE 1 TABLET BY MOUTH DAILY AT BEDTIME NEEDED FOR INSOMNIA MAX DAILY DOSE 1 TABLET Active Not available zonisamide 100 mg capsule TAKE 1 CAPSULE BY MOUTH AT NIGHT FOR 2 WEEKS THEN 2 CAPSULES ONCE A DAY AT NIGHT Completed 08/02/2021 Problems Name Status Onset Date Source Body Mass Index 30+ - Obesity Active 06/24/2020 Hi story Severe Obesity Active 06/24/2020 History Influenza Vaccine Needed Unknown 06/24/2020 History Procedure Unknown 06/24/[address] Concept Unknown 06/24/2020 History Contraceptive Sheath Status Unknown 07/27/2020 Hist ory Exposure to Communicable Disease Unknown 08/17/2020 History Dental Arch Length Loss Secondary to Dental Caries Unknown 09/09/2020 History Lupus Erythematosus Active 09/13/2020 Essential Hypertension Active 10/05/2020 Neck Pain Active 12/01/2020 Depressive Disorder Active 03/07/2021 Seizure Disorder Active 03/07/2021 Pericardial Effusion Active 03/07/2021 History of Deep Vein Thrombosis Active 03/07/2021 Asthma Active 08/08/2021 Pain of Right Wrist Active 09/15/2021 Procedures Date Name Performed by 11/25/2020 Ligation of Fallopian Tube Information n ot available 11/08/2020 Electrocardiogram [facility] [address] [facility] [address] [place] [address] (Work Place) 08/08/2021 MRI, Brain, W/o Contrast [facility] [address] [place] [address] (Work Place) 09/02/2021 XR, Wrist [facility] [address] [place] [address] (Work Place) Notes: section x5, Involuntary D&C, Appendectomy, Tonsillectomy, Gallbladder Results Lab Results Date Name Specimen Result Interpretation Description Value Range Status Address 08/29/2021 RPR (Rapid Plasma Reagin), Serum Blood venous Normal RPR (DX) W/refl Titer and Confirmatory Testing non-reactive non-reactive Final [facility]: [address] , [place] 08/25/2021 CBC W/ Auto Diff High White Blood Count 11.3 10 4.0-10.0 10 Final [facility]: [address] [facility] Normal Red Blood Count 4.18 10 4.00-5.40 10 [facility]: [address] [facility] Low Hemoglobin 9.9 g/dL 12.0-15.5 g/dL F inal [facility]: [address] [facility] Low Hematocrit 32.3 % 36.0-47.0 % [facility]: [address] [facility] Low Mean Corpuscular Volume 77.3 fL 80.0 -96.0 fL Final [facility]: [address] [place] [address] Low Mean Corpuscular Hemoglobin 23.7 pg 27.0-33.0 pg [facility]: [address] [place] [address] Low Mean Corpuscular HGB Conc 30.7 g/dL 32.0-36.5 g/dL [facility]: [address] [place] [address] High Red Cell Distribution Width 15.6 % 1 1.5-14.5 % [facility]: [address] [place] [address] Normal Platelet Count, Automated 292 10 150 -450 10 [facility]: [address] [facility] Normal Neutrophils % 62.6 % 36.0-66.0 % [facility]: [address] [facility] Normal Lymph % 27.2 % 24.0-44.0 % [facility]: [address] [facility] Normal [place] % 5.4 % 2.0-8.0 % Final [facility]: [address] [facility] High Eos % 3.8 % 0.0-3.0 % [facility]: [address] [facility] Normal Baso % 0.6 % 0.0-1.0 % [facility]: 0 [facility] Normal Immature Granulocyte % 0.4 % 0-3.0 % [facility]: 0 [facility] Normal Nucleated Red Blood Cell % 0.0 % 0- 0 % [facility]: [address] [place] [address] Normal Neutrophils # 7.1 10 1.5-8.5 10 [facility]: [address] [facility] Normal Lymph # 3.1 10 1.5-5.0 10 [facility]: [address] [facility] Normal [place] # 0.6 10 0.0-0.8 10 [facility]: [address] [facility] Normal Eos # 0.4 10 0.0-0.5 10 [facility]: [address] [facility] Normal Baso # 0.1 10 0.0-0.2 10 [facility]: [address] [facility] 08/25/2021 CBC W/ Auto Diff High White Blood Count 11.1 10 4.0-10.0 10 [facility]: 0 [facility] Normal Red Blood Count 4.23 10 4.00-5.40 10 [facility]: 0 [facility] Low Hemoglobin 10.0 g/dL 12.0-15.5 g/dL [facility]: [address] [place] [address] Low Hematocrit 33.0 % 36.0-47.0 % [facility]: [address] [place] [address] Low Mean Corpuscular Volume 78.0 fL 80.0 -96.0 fL [facility]: [address] [place] [address] Low Mean Corpuscular Hemoglobin 23.6 pg 27.0-33.0 pg [facility]: [address] [place] [address] Low Mean Corpuscular HGB Conc 30.3 g/dL 32.0-36.5 g/dL [facility]: 0 [facility] High Red Cell Distribution Width 15.6 % 1 1.5-14.5 % [facility]: 0 [facility] Normal Platelet Count, Automated 309 10 150 -450 10 [facility]: 0 [facility] Normal Neutrophils % 63.1 % 36.0-66.0 % [facility]: [address] [facility] Normal Lymph % 27.5 % 24.0-44.0 % Final [facility]: [address] [facility] Normal [place] % 4.5 % 2.0-8.0 % Final [facility]: [address] [facility] High Eos % 4.2 % 0.0-3.0 % [facility]: [address] [facility] Normal Baso % 0.4 % 0.0-1.0 % [facility]: [address] [facility] Normal Immature Granulocyte % 0.3 % 0-3.0 % [facility]: [address] [facility] Normal Nucleated Red Blood Cell % 0.0 % 0- 0 % [facility]: 0 [facility] Normal Neutrophils # 7.0 10 1.5-8.5 10 [facility]: [address] [facility] Normal Lymph # 3.1 10 1.5-5.0 10 [facility]: [address] [facility] Normal [place] # 0.5 10 0.0-0.8 10 [facility]: [address] [facility] Normal Eos # 0.5 10 0.0-0.5 10 [facility]: [address] [facility] Normal Baso # 0.1 10 0.0-0.2 10 [facility]: [address] [facility] 08/25/2021 Choriogonadotropin, Quant, Serum or Plasma Norm al HCG, Serum Quantitative < 1.0 mIU/mL [facility]: [address] [facility] 08/25/2021 CMP, Serum or Plasma Normal Glucose, Fastin g 90 mg/dL 70-100 mg/dL [facility]: [address] [facility] Normal Blood Urea Nitrogen 10 mg/dL 7-18 mg /dL [facility]: 0 [facility] Normal Creatinine for GFR 0.62 mg/dL 0.55-1 .30 mg/dL [facility]: [address] [facility] Normal Glomerular Filtration Rate > 60.0 >6 0 [facility]: 0 [facility] Normal Sodium Level 140 mEq/L 136-145 mEq/L [facility]: [address] [place] [address] Normal Potassium Serum 3.9 mEq/L 3.5-5.1 mE q/L [facility]: [address] [place] [address] Normal Chloride Level 107 mEq/L 98-107 mEq/ L [facility]: [address] [place] [address] Normal Carbon Dioxide Level 27 mEq/L 21-32 mEq/L [facility]: [address] [place] [address] Low Anion Gap 6 mEq/L 8-16 mEq/L [facility]: [address] [place] [address] Normal Calcium Level 9.2 mg/dL 8.5-10.1 mg/ dL [facility]: [address] [place] [address] Normal AST/SGOT 10 U/L 7-37 U/L [facility]: [address] [place] [address] Normal ALT/SGPT 20 U/L 12-78 U/L [facility]: [address] [place] [address] Normal Alkaline Phosphatase 113 U/L 45-117 U/L [facility]: [address] [place] [address] Low Bilirubin,total 0.1 mg/dL 0.2-1.0 mg /dL [facility]: [address] [place] [address] Normal Total Protein 6.6 gm/dL 6.4-8.2 gm/d L [facility]: 0 [facility] Normal Albumin 3.3 gm/dL 3.2-5.2 gm/dL Drea l [facility]: [address] [place] [address] Low Albumin/globulin Ratio 1.0 1.2-2. 2 [facility]: [address] [place] [address] 08/25/2021 TSH, Serum or Plasma Normal Thyroid Stimulating Hormone 1.320 uIU/mL 0.358-3.740 uIU/mL [facility] nter: [address] [place] [address] 08/25/2021 Vitamin B12, Serum Normal Vitamin B12 Level 893 pg/mL 247-911 pg/mL Final [facility]: [address] [facility] 08/25/2021 Lamotrigine, Serum Low Lamotrigine (Lami ctal) <1.0 ug/mL 2.0- 20.0 ug/mL Final [facility]: [address] [facility] 08/15/2021 Iron + TIBC + Ferritin, Serum Blood venous Low Iron, Total 26 mcg/dL 40-190 mcg/dL Final [facility]: [address] [facility] Blood venous Normal Iron Binding Capacity 38 4 mcg/dL (calc) 250-450 mcg/dL (calc) Final [facility]: [address] [facility] Blood venous Low % Saturation 7 % (calc) 16-45 % (calc) Final [facility]: [address] [facility] Blood venous Low Ferritin 11 NG/mL 16-154 NG/m L Final [facility]: [address] [facility] 08/15/2021 HIV 1/2 Antigen/antibody, 4TH Gen W/rfl,screenin g Blood venous Normal HIV Ag/Ab, 4TH Gen non-reactive non-reactive Final [facility]: [address] [facility] 08/15/2021 Cbc Blood venous High White Blood Cell Count 12.2 thousand/uL 3.8-10.8 thousand/uL Final [facility]: [address] [facility] Blood venous Normal Red Blood Cell Count 4.5 4 million/uL 3.80-5.10 million/uL Final [facility]: [address] [facility] Blood venous Low Hemoglobin 10.6 g/dL 11.7-15. 5 g/dL Final [facility]: [address] [facility] Blood venous Normal Hematocrit 35.5 % 35.0-45.0 % Final [facility]: [address] [facility] Blood venous Low Mcv 78.2 fL 80.0-100.[address] [facility]: [address] [facility] Blood venous Low Mch 23.3 pg 27.0-33.[address] [facility]: [address] [facility] Blood venous Low Mchc 29.9 g/dL 32.0-36.0 g/dL Final [facility]: [address] [facility] Blood venous Normal Rdw 14.6 % 11.0-15.0 % Final [facility]: [address] [facility] Blood venous High Platelet Count 536 thous and/uL 140-400 thousand/uL Final [facility]: [address] , [place] Blood venous Normal Mpv 10.9 fL 7.5-12.[address] [facility]: [address] [facility] 08/09/2021 Urinalysis, Dipstick Normal Appearance, Urine hazy clear [facility]: [address] [facility] Normal Color, Urine yellow yellow [facility]: [address] [facility] Normal pH,urine 5.0 units 5.0-9.[address] [facility]: [address] [facility] Normal Specific [place] Urine Auto 1.028 1 .002-1.035 [facility]: [address] [facility] Normal Protein, Urine Auto negative mg/dL n egative mg/dL [facility]: [address] [facility] Normal Glucose, Urine (UA) Auto negative mg /dL negative mg/dL [facility]: [address] [facility] Normal Ketone, Urine Auto negative mg/dL ne gative mg/dL [facility]: [address] [facility] Normal Urobilinogen, Urine Auto 0.2 mg/dL 0 .0-2.0 mg/dL [facility]: [address] [facility] Normal Bilirubin, Urine Auto negative negat socrates [facility]: [address] [facility] Normal Nitrite, Urine Auto negative negativ e [facility]: [address] [facility] High Leukocyte Esterase, Urine Auto 1+ negative [facility]: [address] [facility] Normal Blood, Urine Blood negative negative [facility]: [address] [facility] Normal WBC, Urine Auto 2 /hpf 0-3 /hpf [facility]: [address] [facility] Normal RBC, Urine Auto 1 /hpf 0-3 /hpf [facility]: [address] [facility] Normal Bacteria, Urine Auto negative negati ve [facility]: [address] [facility] Normal Squamous Epithelial Cell Ur AU 2 /hp f 0-6 /hpf [facility]: [address] [facility] Normal Mucus, Urine small negative [facility]: [address] [facility] Normal Hyaline Cast, Urine Auto 0 /lpf 0-1 /lpf [facility]: [address] [facility] 08/09/2021 Protein, Total, Urine High Total Protein,random Urine 22.8 mg/dL 0.0-12.0 mg/dL [facility]ter: [address] [facility] 08/09/2021 CMP, Serum or Plasma Normal Glucose, Fastin g 100 mg/dL 70-100 mg/dL [facility]: [address] 0 [facility] Normal Blood Urea Nitrogen 7 mg/dL 7-18 mg/ dL [facility]: 0 [facility] Normal Creatinine for GFR 0.64 mg/dL 0.55-1 .30 mg/dL [facility]: [address] [facility] Normal Glomerular Filtration Rate > 60.0 >6 0 [facility]: [address] [facility] Normal Sodium Level 142 mEq/L 136-145 mEq/L [facility]: [address] [facility] Normal Potassium Serum 4.3 mEq/L 3.5-5.1 mE q/L [facility]: [address] [facility] High Chloride Level 109 mEq/L 98-107 mEq/ L [facility]: [address] [facility] Normal Carbon Dioxide Level 27 mEq/L 21-32 mEq/L [facility]: [address] [facility] Low Anion Gap 6 mEq/L 8-16 mEq/L [facility]: [address] [facility] Normal Calcium Level 8.7 mg/dL 8.5-10.1 mg/ dL [facility]: [address] [facility] Normal AST/SGOT 7 U/L 7-37 U/L [facility]: [address] [facility] Normal ALT/SGPT 18 U/L 12-78 U/L [facility]: [address] [facility] High Alkaline Phosphatase 118 U/L 45-117 U/L [facility]: [address] [facility] Low Bilirubin,total 0.1 mg/dL 0.2-1.0 mg /dL [facility]: 0 [facility] Low Total Protein 6.1 gm/dL 6.4-8.2 gm/d L [facility]: [address] [place] [address] Low Albumin 3.1 gm/dL 3.2-5.2 gm/dL [facility] [address] [facility] Low Albumin/globulin Ratio 1.0 1.2-2. 2 [facility]: [address] [facility] 08/09/2021 C3 (Complement), Serum or Plasma Normal Complement C3 167 mg/dL 90-180 mg/dL [facility] nter: [address] [facility] 08/09/2021 C4 (Complement), Serum or Plasma High Com plement C4 44 mg/dL 10-40 mg/dL [facility]: [address] [facility] 08/09/2021 C Reactive Protein, QN, Serum or Plasma High C Reactive Protein Quantitativ 2.21 mg/dL 0.00-0.30 mg/dL [facility]: [address] [facility] 08/09/2021 CBC W/ Auto Diff High White Blood Count 10.6 10 4.0-10.0 10 [facility]: [address] [facility] Low Red Blood Count 3.87 10 4.00-5.40 10 [facility]: [address] [facility] Low Hemoglobin 9.1 g/dL 12.0-15.5 g/dL F inal [facility]: [address] [facility] Low Hematocrit 30.2 % 36.0-47.0 % [facility]: [address] [facility] Low Mean Corpuscular Volume 78.0 fL 80.0 -96.0 fL [facility]: [address] [place] [address] Low Mean Corpuscular Hemoglobin 23.5 pg 27.0-33.0 pg Final [facility]: [address] [facility] Low Mean Corpuscular HGB Conc 30.1 g/dL 32.0-36.5 g/dL [facility]: [address] [place] [address] High Red Cell Distribution Width 15.4 % 1 1.5-14.5 % [facility]: [address] [place] [address] Normal Platelet Count, Automated 425 10 150 -450 10 [facility]: 830 [facility] Normal Neutrophils % 63.9 % 36.0-66.0 % [facility]: 8[address] [facility] Normal Lymph % 25.7 % 24.0-44.0 % [facility]: 8[address] [facility] Normal [place] % 5.5 % 2.0-8.0 % [facility]: 8[address] [facility] High Eos % 3.8 % 0.0-3.0 % [facility]: 8[address] [facility] Normal Baso % 0.5 % 0.0-1.0 % [facility]: 830 [facility] Normal Immature Granulocyte % 0.6 % 0-3.0 % [facility]: 0 [facility] Normal Nucleated Red Blood Cell % 0.0 % 0- 0 % [facility]: 0 [facility] Normal Neutrophils # 6.8 10 1.5-8.5 10 [facility]: 830 [facility] Normal Lymph # 2.7 10 1.5-5.0 10 [facility]: 830 [facility] Normal [place] # 0.6 10 0.0-0.8 10 [facility]: [address] [facility] Normal Eos # 0.4 10 0.0-0.5 10 [facility]: 830 [facility] Normal Baso # 0.1 10 0.0-0.2 10 [facility]: 0 [facility] 08/09/2021 ESR (Erythrocyte Sedimentation Rate), Blood Hig h Erythrocyte Sedimentation Rate 59 mm/HR 0-20 mm/HR [facility] Center: [address] [place] [address] 08/07/2021 CBC W/ Auto Diff Normal White Blood Count 9.2 10 4.0-10.0 10 [facility]: [address] [place] [address] Normal Red Blood Count 4.47 10 4.00-5.40 10 [facility]: [address] [place] [address] Low Hemoglobin 10.6 g/dL 12.0-15.5 g/dL [facility]: [address] [place] [address] Low Hematocrit 35.0 % 36.0-47.0 % [facility]: [address] [place] [address] Low Mean Corpuscular Volume 78.3 fL 80.0 -96.0 fL [facility]: [address] [place] [address] Low Mean Corpuscular Hemoglobin 23.7 pg 27.0-33.0 pg [facility]: [address] [place] [address] Low Mean Corpuscular HGB Conc 30.3 g/dL 32.0-36.5 g/dL [facility]: [address] [place] [address] High Red Cell Distribution Width 15.3 % 1 1.5-14.5 % [facility]: [address] [place] [address] Normal Platelet Count, Automated 362 10 150 -450 10 [facility]: 0 [facility] Normal Neutrophils % 64.3 % 36.0-66.0 % Fin [facility]: 0 [facility] Normal Lymph % 25.2 % 24.0-44.0 % [facility]: 8[address] [facility] Normal [place] % 6.0 % 2.0-8.0 % [facility]: 8[address] [facility] High Eos % 3.7 % 0.0-3.0 % [facility]: 8[address] [facility] Normal Baso % 0.5 % 0.0-1.0 % [facility]: 830 [facility] Normal Immature Granulocyte % 0.3 % 0-3.0 % [facility]: 830 [facility] Normal Nucleated Red Blood Cell % 0.0 % 0- 0 % [facility]: 830 [facility] Normal Neutrophils # 5.9 10 1.5-8.5 10 [facility]: 830 [facility] Normal Lymph # 2.3 10 1.5-5.0 10 [facility]: 830 [facility] Normal [place] # 0.6 10 0.0-0.8 10 [facility]: 830 [facility] Normal Eos # 0.3 10 0.0-0.5 10 [facility]: 830 [facility] Normal Baso # 0.1 10 0.0-0.2 10 [facility]: 8[address] [facility] 08/07/2021 BMP, Serum or Plasma Normal Glucose, Fastin g 92 mg/dL 70-100 mg/dL [facility]: 83 0 [facility] Normal Blood Urea Nitrogen 11 mg/dL 7-18 mg /dL [facility]: 0 [facility] Normal Creatinine for GFR 0.80 mg/dL 0.55-1 .30 mg/dL [facility]: 830 [facility] Normal Glomerular Filtration Rate > 60.0 >6 0 [facility]: 830 [facility] Normal Sodium Level 144 mEq/L 136-145 mEq/L [facility]: [address] [place] [address] Normal Potassium Serum 4.0 mEq/L 3.5-5.1 mE q/L [facility]: [address] [place] [address] High Chloride Level 113 mEq/L 98-107 mEq/ L [facility]: [address] [place] [address] Normal Carbon Dioxide Level 24 mEq/L 21-32 mEq/L [facility]: [address] [place] [address] Low Anion Gap 7 mEq/L 8-16 mEq/L [facility]: [address] [place] [address] Normal Calcium Level 8.8 mg/dL 8.5-10.1 mg/ dL [facility]: [address] [place] [address] 08/07/2021 Choriogonadotropin, Quant, Serum or Plasma Norm al HCG, Serum Quantitative < 1.0 mIU/mL [facility]: [address] [place] [address] 08/07/2021 Type + Screen, Serum Normal Blood Type O posit socrates [facility]: [address] [place] [address] Normal Ab Screen (Indirect Colin)vis negat socrates [facility]: [address] [place] [address] 08/07/2021 [place] ENDOCERVIX No observation recorded. [facility]: [address] [place] [address] 08/06/2021 CBC W/ Auto Diff Results Final [facility]: [address] [place] [address] Wbc 9.5 10^3/uL 4.2 - 11.0 10^3/uL [facility]: [address] [place] [address] Rbc 3.73 10^6/uL 4.20 - 5.40 10^6/u L [facility]: [address] [place] [address] Hemoglobin 9.0 g/dL 12.0 - 16.0 g/dL [facility]: [address] [place] [address] Hematocrit 28.6 % 37.0 - 47.0 % [facility]: [address] [place] [address] Mcv 76.7 fL 81.0 - 101 fL Ca [facility] Hospital: [address], [place] Mch 24.1 pg 27.0 - 34.[address] [facility]: [address] [place] [address] Mchc 31.5 g/dL 31.0 - 36.0 g/dL [facility]: [address] [place] [address] Rdw 15.0 % 11.5 - 14.5 % [facility]: [address] [place] [address] Platelets 367 10^3/uL 150 - 450 10^3 /uL [facility]: [address] [place] [address] Mpv 9.6 fL 7.4 - 10.4 fL Car [facility] Hospital: [address] [place] [address] Neut 64.6 % 37.0 - 80.0 % [facility] Hospital: [address] [place] [address] Lymph 26.4 % 25.0 - 40.0 % Ca [facility]: [address] [place] [address] [place] 5.1 % 3.0 - 8.0 % [facility]: [address] [place] [address] Eos 3.2 % 0.0 - 7.0 % [facility]: [address] [place] [address] Baso 0.4 % 0.0 - 2.5 % [facility]: [address] [place] [address] %Ig 0.3 % 0.0 - 0.0 % [facility]: [address] [place] [address] %Nrbc 0.0 % 0.0 - 0.0 % [facility] Hospital: [address] [place] [address] #Neut 6.14 10^3/uL 2.00 - 6.90 10^3/ uL [facility]: [address] [place] [address] #Lymph 2.51 10^3/uL 0.60 - 3.40 10^3 /uL [facility]: [address] [place] [address] #[place] 0.48 10^3/uL 0.00 - 0.90 10^3/ uL [facility]: [address] [place] [address] #Eos 0.30 10^3/uL 0.00 - 0.70 10^3/u L [facility]: [address] [place] [address] #Baso 0.04 10^3/uL 0.00 - 0.20 10^3/ uL [facility]: [address] [place] [address] #Ig 0.03 10^3/uL 0.00 - 0.10 10^3/u L [facility]: [address] [place] [address] #Nrbc 0.00 10^3/uL 0.00 - 0.00 10^3/ uL [facility]: [address] [place] [address] Manual Diff not indicated [facility]: [address] [place] [address] RBC Morph not indicated [facility]: [address] [place] [address] 08/06/2021 CMP, Serum or Plasma Results Final [facility]: [address] [place] [address] Sodium 141 mEq/L 134 - 153 mEq/L [facility]: [address] [place] [address] Low Potassium 3.5 mEq/L 3.6 - 5.0 mEq/L [facility]: [address] [place] [address] High Chloride 108 mEq/L 98 - 107 mEq/L [facility]: [address] [place] [address] Co2 25 mEq/L 22 - 30 mEq/L C [facility] Hospital: [address] [place] [address] High Glucose 103 mg/dL 70 - 99 mg/dL [facility]: [address] [place] [address] Bun 7 mg/dL 7 - 21 mg/dL [facility]: [address] [place] [address] Creatinine 0.8 mg/dL 0.7 - 1.5 mg/dL [facility]: [address] [place] [address] BUN/creat 9 8 - 27 [facility] Hospital: [address] [place] [address] Total Protein 6.3 g/dL 6.3 - 8.2 g/d L [facility]: [address] [place] [address] Albumin 4.0 g/dL 3.9 - 5.0 g/dL [facility]: [address] [place] [address] Low Globulin 2.3 gm/dL 2.4 - 3.2 gm/dL [facility]: [address] [place] [address] A/g Ratio 1.7 0.8 - 2.0 Ca [facility] Hospital: [address] [place] [address] Calcium 9.1 mg/dL 8.4 - 10.2 mg/dL [facility]: [address] [place] [address] Total Bili <0.7 mg/dL 0.2 - 1.3 mg/d L [facility]: [address] [place] [address] Alkaline Phos 114 U/L 38 - 126 U/L [facility]: [address] [place] [address] SGOT/AST 11 U/L 5 - 40 U/L [facility] Hospital: [address] [place] [address] SGPT/ALT 10 U/L 7 - 56 U/L Ca [facility] Hospital: [address] [place] [address] Anion Gap 8.0 mmol/L 8.0 - 16.0 mmol /L [facility]: [address] [place] [address] Age 31 yrs [facility] Hospital: [address] [place] [address] Non-aa GFR >60 mL/min [facility]: [address] [place] [address] Afr Amer GFR >60 mL/min [facility]: [address] [place] [address] 07/31/2021 UA W/ Reflex to Culture Normal Appearance, Urine Rfx clear clear [facility]: 83 0 [facility] Normal Color, Urine Rfx colorless yellow Fi nal [facility]: 830 [facility] Normal pH,urine Rfx 7.0 units 5.0-9.0 units [facility]: 830 [facility] Normal Specific [place] Ur Auto Rfx 1.002 1.002-1.035 [facility]: 830 [facility] Normal Protein, Urine Auto Rfx negative mg/ dL negative mg/dL [facility]: 8[address] [facility] Normal Glucose, Urine (UA) Auto Rfx n egative mg/dL negative mg/dL [facility]: 830 [facility] Normal Ketone, Urine Auto Rfx negative mg/d L negative mg/dL [facility]: 8[address] [facility] Normal Urobilinogen, Urine Auto Rfx 0.2 mg/ dL 0.0-2.0 mg/dL [facility]: 8[address] [facility] Normal Bilirubin, Urine Auto Rfx negative n egative [facility]: 8[address] [facility] Normal Nitrite, Urine Auto Rfx negative neg ative [facility]: 8[address] [facility] Normal Leukocyte Esterase Ur Auto Rfx negat socrates negative [facility]: [address] [facility] High Blood, Urine Blood Rfx 2+ negati ve [facility]: 8[address] [facility] Normal WBC, Urine Auto Rfx 0 /hpf 0-3 /hpf [facility]: 8[address] [facility] Normal RBC, Urine Auto Rfx 1 /hpf 0-3 /hpf [facility]: [address] [facility] High Bacteria, Urine Auto Rfx 1+ nega tive [facility]: [address] [facility] Normal Squam Epithelial Cell Ur Aurfx 2 /hp f 0-6 /hpf [facility]: 8[address] [facility] Normal Hyaline Cast, Urine Auto Rfx 0 /lpf 0-1 /lpf [facility]: 8[address] [facility] 07/31/2021 CBC W/ Auto Diff Normal White Blood Count 8.4 10 4.0-10.0 10 [facility]: 830 [facility] Normal Red Blood Count 4.49 10 4.00-5.40 10 [facility]: [address] [facility] Low Hemoglobin 10.7 g/dL 12.0-15.5 g/dL [facility]: 8[address] [facility] Low Hematocrit 34.9 % 36.0-47.0 % [facility]: 8[address] [facility] Low Mean Corpuscular Volume 77.7 fL 80.0 -96.0 fL [facility]: 8[address] [facility] Low Mean Corpuscular Hemoglobin 23.8 pg 27.0-33.0 pg [facility]: 0 [facility] Low Mean Corpuscular HGB Conc 30.7 g/dL 32.0-36.5 g/dL [facility]: [address] [facility] High Red Cell Distribution Width 15.4 % 1 1.5-14.5 % [facility]: 830 [facility] Normal Platelet Count, Automated 303 10 150 -450 10 [facility]: 8[address] [facility] High Neutrophils % 66.6 % 36.0-66.0 % [facility]: [address] [facility] Low Lymph % 22.6 % 24.0-44.0 % Final [facility]: 8[address] [facility] Normal [place] % 5.5 % 2.0-8.0 % Final [facility]: [address] [place] [address] High Eos % 4.6 % 0.0-3.0 % [facility]: 0 [facility] Normal Baso % 0.5 % 0.0-1.0 % Final [facility]: 8[address] [facility] Normal Immature Granulocyte % 0.2 % 0-3.0 % [facility]: [address] [place] [address] Normal Nucleated Red Blood Cell % 0.0 % 0- 0 % [facility]: 0 [facility] Normal Neutrophils # 5.6 10 1.5-8.5 10 [facility]: [address] [facility] Normal Lymph # 1.9 10 1.5-5.0 10 Final [facility]: 8[address] [facility] Normal [place] # 0.5 10 0.0-0.8 10 [facility]: 0 [facility] Normal Eos # 0.4 10 0.0-0.5 10 [facility]: 0 [facility] Normal Baso # 0.0 10 0.0-0.2 10 [facility]: [address] [place] [address] 07/31/2021 Istat B-HCG Normal Istat B-HCG < 5.0 F [facility]: 8[address] [facility] 07/31/2021 Istat Chem8+ Panel Low Istat HCT 35.0 % 38. 0-51.0 % [facility]: [address] [place] [address] High Istat Glucose 123 mg/dL 70-105 mg/dL [facility]: [address] [place] [address] Normal Istat Sodium 138 mEq/L 136-145 mEq/L [facility]: [address] [place] [address] Normal Istat Potassium 4.3 mEq/L 3.5-5.1 mE q/L [facility]: [address] [place] [address] Normal Istat Ca++ 4.6 mg/dL 4.5-5.3 mg/dL [facility]: [address] [place] [address] Normal Istat Chloride 105 mEq/L 98-109 mEq/ L [facility]: [address] [place] [address] Normal Istat CO2 24.0 mm/L 23.0-27.0 mm/L [facility]: [address] [place] [address] Normal Istat BUN 14 mg/dL 8-26 mg/dL [facility]: [address] [place] [address] Normal Istat Creatinine 0.7 mg/dL 0.6-1.3 m g/dL [facility]: [address] [place] [address] 07/31/2021 [place] ENDOCERVIX No observation recorded. [facility]: [address] [place] [address] 07/31/2021 PT/INR High Prothrombin Time 23.2 secon ds 12.7-14.5 seconds [facility]: [address] [place] [address] Normal Inr 2.01 [facility]: [address] [place] [address] 07/31/2021 Partial Thromboplastin Time High Partial Thromboplastin Time 63.9 seconds 25.9-37.[address] [facility] nter: [address] [place] [address] 07/31/2021 Lactic Acid, Serum or Plasma Normal Lactic Acid Sepsis Protocol 1.4 mmol/L 0.4-2.0 mmol/L [facility]: [address] [place] [address] 07/31/2021 Hepatic Function Panel, Serum Normal AST/SG OT 17 U/L 7-37 U/L [facility]: 0 [facility] Normal ALT/SGPT 24 U/L 12-78 U/L [facility]: [address] [place] [address] Normal Alkaline Phosphatase 117 U/L 45-117 U/L [facility]: [address] [place] [address] Low Bilirubin,total 0.1 mg/dL 0.2-1.0 mg /dL [facility]: [address] [place] [address] Normal Bilirubin,direct < 0.1 mg/dL 0.0-0.2 mg/dL [facility]: [address] [place] [address] Normal Total Protein 6.4 gm/dL 6.4-8.2 gm/d L [facility]: [address] [place] [address] Normal Albumin 3.2 gm/dL 3.2-5.2 gm/dL Drea l [facility]: [address] [place] [address] Low Albumin/globulin Ratio 1.0 1.2-2. 2 [facility]: 0 [facility] 07/31/2021 Amylase, Serum or Plasma Normal Amylase 40 U/L 25-115 U/L [facility]: [address] [place] [address] 07/31/2021 Lipase, Serum or Plasma Normal Lipase 91 U/L 7 3-393 U/L [facility]: 0 [facility] 07/31/2021 Chlamydia, GC & Trich Amp Normal Ch lamydia DNA Amplification negative negative [facility] nter: 0 [facility] Normal GC DNA Amplification negative negati ve [facility]: 0 [facility] Normal Trichomonas Vaginalis (Amp) not dete cted negative [facility]: 0 [facility] 07/31/2021 Influenza A/B RSV Covid Amp Normal Influenza a Amplification negative negative [facility] nter: 830 [facility] Normal Influenza B Amplification negative n egative [facility]: 830 [facility] Normal RSV Amplification negative negative [facility]: 830 [facility] Normal Sars Covid-19 Amplification negative negative [facility]: 830 [facility] 07/31/2021 TSH, Serum or Plasma Normal Thyroid Stimulating Hormone 0.444 uIU/mL 0.358-3.740 uIU/mL [facility] nter: 830 [facility] 07/31/2021 T4, Free, Serum Low Free T4 0.66 NG/dL 0.76 -1.46 NG/dL [facility]: 0 [facility] 07/31/2021 Type + Screen, Serum Normal Blood Type O posit socrates [facility]: 830 [facility] Normal Ab Screen (Indirect Colin)vis negat socrates [facility]: 830 [facility] 07/31/2021 Cardiovascular Assessment Panel, Serum Normal CPK Creatine Phosphokinase 67 U/L 26-192 U/L [facility]: 0 [facility] Normal CK-mb Value Mass < 1.0 NG/mL <3.6 NG /mL [facility]: 0 [facility] Normal mb/CK Relative Index 1.49 < or =4 [facility]: 0 [facility] Normal Troponin I < 0.02 NG/mL < 0.10 NG/mL [facility]: 830 [facility] 07/31/2021 Ethanol, Blood Normal Ethyl Alcohol (Ethano l) < 0.003 % 0.000- 0.010 % [facility]: 83 0 [facility] 07/31/2021 Salicylate, Quantitative, Serum Low Salicylate Level < 1.7 mg/dL 5.0-30.0 mg/dL [facility] nter: 830 [facility] 07/31/2021 Acetaminophen, Serum Low Acetaminophen L evel < 2.0 ug/mL 10.0- 30.0 ug/mL [facility]: 83 0 [facility] 07/31/2021 CBC W/ Auto Diff Normal White Blood Count 8.5 10 4.0-10.0 10 [facility]: 830 [facility] Normal Red Blood Count 4.04 10 4.00-5.40 10 [facility]: 830 [facility] Low Hemoglobin 9.7 g/dL 12.0-15.5 g/dL F inal [facility]: 830 [facility] Low Hematocrit 31.4 % 36.0-47.0 % [facility]: 830 [facility] Low Mean Corpuscular Volume 77.7 fL 80.0 -96.0 fL [facility]: 830 [facility] Low Mean Corpuscular Hemoglobin 24.0 pg 27.0-33.0 pg [facility]: 830 [facility] Low Mean Corpuscular HGB Conc 30.9 g/dL 32.0-36.5 g/dL [facility]: 830 [facility] High Red Cell Distribution Width 15.3 % 1 1.5-14.5 % [facility]: 830 [facility] Normal Platelet Count, Automated 302 10 150 -450 10 [facility]: 830 [facility] Normal Neutrophils % 59.7 % 36.0-66.0 % [facility]: 830 [facility] Normal Lymph % 28.8 % 24.0-44.0 % [facility]: 830 [facility] Normal [place] % 5.9 % 2.0-8.0 % [facility]: 830 [facility] High Eos % 4.7 % 0.0-3.0 % [facility]: 830 [facility] Normal Baso % 0.5 % 0.0-1.0 % [facility]: 830 [facility] Normal Immature Granulocyte % 0.4 % 0-3.0 % [facility]: 830 [facility] Normal Nucleated Red Blood Cell % 0.0 % 0- 0 % [facility]: 830 [facility] Normal Neutrophils # 5.1 10 1.5-8.5 10 [facility]: 830 [facility] Normal Lymph # 2.4 10 1.5-5.0 10 [facility]: 830 [facility] Normal [place] # 0.5 10 0.0-0.8 10 [facility]: 830 [facility] Normal Eos # 0.4 10 0.0-0.5 10 [facility]: 830 [facility] Normal Baso # 0.0 10 0.0-0.2 10 [facility]: 830 [facility] 07/31/2021 Drug Screen, Urine Normal Amphetamines Leve l Urine negative negative [facility]: 83 0 [facility] Normal Barbiturates Urine negative negative [facility]: 830 [facility] Normal Benzodiazepines Urine negative negat socrates [facility]: 830 [facility] Normal Cannabinoids Urine negative negative [facility]: 830 [facility] Normal Cocaine Metabolite Urine negative ne gative [facility]: 830 [facility] Normal Methadone Urine negative negative [facility]: 830 [facility] High Opiates Urine positive negative [facility]: 8[address] [facility] Normal Phencyclidine Urine negative negativ e [facility]: 830 [facility] 07/29/2021 CT + NG RNA, PCR, Unspecified Specimen Urine Normal Chlamydia Trachomatis RNA, Tma, Urogenital not detected not detected Final [facility]: [address] [place] Urine Normal Neisseria Gonorrhoeae RNA, Tma, Urogenital not detected not detected Final [facility]: [address], [place] Urine Comment Final [facility]: [address], [place] 07/29/2021 Test, Urine Urine clean catch Hcg n egative [facility]: [address], [place] 07/25/2021 Thrombosis Prof ([id number]) Normal Homocyste ine 6.5 umol/L . umol/L [facility]: 83 0 [facility] Normal Factor VIII Activity 91 % . % F inal [facility]: [address] [facility] Normal Antithrombin Activity 127 % . % [facility]: [address] [facility] Normal Prt C Activity(chromogenic) 160 % . % [facility]: [address] [facility] Normal Protein S Antigen, Free 61 % . % [facility]: [address] [facility] Normal Aptt 27.3 sec . sec [facility]: [address] [facility] Normal APTT 1:1 Breaker Tender tnp sec . sec [facility]: [address] [facility] Normal APTT 1:1 Saline tnp sec . sec [facility]: [address] [facility] Normal Lac Interpretation . Fin [facility]: [address] [facility] Normal Act Prt C Resist W/fv Defic 2.2 rati o . ratio [facility]: [address] [facility] High Drvvt Screen Seconds 72.2 sec . sec [facility]: [address] [facility] Normal Drvvt Confirm Seconds 45.1 sec . sec [facility]: [address] [facility] High Drvvt Ratio 1.4 ratio . ratio [facility]: [address] [facility] Normal Hexagonal Phospholipid Neutal 7 sec . sec [facility]: [address] [facility] Normal Anticardiolipin Ab, IgG <10 gpl . gp l [facility]: [address] [facility] Normal Anticardiolipin Ab, IgM 19 mpl . mpl [facility]: [address] [facility] Normal Beta-2 Glycoprotein I, IgG <10 sgu . sgu [facility]: [address] [facility] Normal Beta-2 Glycoprotein I, IgM <10 smu . smu [facility]: [address] [facility] Normal Beta-2 Glycoprotein I, IgA <10 braden . braden [facility]: [address] [facility] Normal Factor II Gene Mutation Result tnp . [facility]: [address] [facility] Normal Factor II Gene Interpretation tnp . [facility]: [address] [facility] Normal Factor II Gene Methodology . [facility]: [address] [facility] Normal Factor II Gene Comments . [facility]: [address] [facility] 07/25/2021 Thrombosis Prof ([id number]) Normal Homocyste ine 6.5 umol/L . umol/L [facility]: 83 0 [facility] Normal Factor VIII Activity 91 % . % F inal [facility]: [address] [facility] Normal Antithrombin Activity 127 % . % [facility]: [address] [facility] Normal Prt C Activity(chromogenic) 160 % . % [facility]: [address] [facility] Normal Protein S Antigen, Free 61 % . % [facility]: [address] [facility] Normal Aptt 27.3 sec . sec [facility]: [address] [facility] Normal APTT 1:1 Breaker Tender tnp sec . sec [facility]: [address] [facility] Normal APTT 1:1 Saline tnp sec . sec [facility]: [address] [facility] Normal Lac Interpretation . Fin [facility]: [address] [facility] Normal Act Prt C Resist W/fv Defic 2.2 rati o . ratio [facility]: [address] [facility] High Drvvt Screen Seconds 72.2 sec . sec [facility]: [address] [facility] Normal Drvvt Confirm Seconds 45.1 sec . sec [facility]: [address] [facility] High Drvvt Ratio 1.4 ratio . ratio [facility]: [address] [facility] Normal Hexagonal Phospholipid Neutal 7 sec . sec [facility]: [address] [facility] Normal Anticardiolipin Ab, IgG <10 gpl . gp l [facility]: [address] [facility] Normal Anticardiolipin Ab, IgM 19 mpl . mpl [facility]: [address] [facility] Normal Beta-2 Glycoprotein I, IgG <10 sgu . sgu [facility]: [address] [facility] Normal Beta-2 Glycoprotein I, IgM <10 smu . smu [facility]: [address] [facility] Normal Beta-2 Glycoprotein I, IgA <10 braden . braden [facility]: [address] [facility] Normal Factor II Gene Mutation Result tnp . [facility]: [address] [facility] Normal Factor II Gene Interpretation tnp . [facility]: [address] [facility] Normal Factor II Gene Methodology . [facility]: [address] [facility] Normal Factor II Gene Comments . [facility]: [address] [facility] 07/08/2021 Lactic Acid Level, Lactate Normal L actic Acid Level, Lactate 1.6 mmol/L 0.4-2.0 mmol/L [facility]: [address] [facility] 07/08/2021 UA W/ Reflex to Culture Normal Appearance, Urine Rfx hazy clear [facility]: 83 0 [facility] Normal Color, Urine Rfx straw yellow [facility]: [address] [facility] Normal pH,urine Rfx 8.0 units 5.0-9.0 units [facility]: [address] [facility] Normal Specific [place] Ur Auto Rfx 1.014 1.002-1.035 [facility]: [address] [facility] Normal Protein, Urine Auto Rfx negative mg/ dL negative mg/dL [facility]: [address] [facility] Normal Glucose, Urine (UA) Auto Rfx n egative mg/dL negative mg/dL [facility]: [address] [facility] Normal Ketone, Urine Auto Rfx negative mg/d L negative mg/dL [facility]: [address] [facility] Normal Urobilinogen, Urine Auto Rfx 0.2 mg/ dL 0.0-2.0 mg/dL [facility]: [address] [facility] Normal Bilirubin, Urine Auto Rfx negative n egative [facility]: [address] [facility] Normal Nitrite, Urine Auto Rfx negative neg ative [facility]: [address] [facility] Normal Leukocyte Esterase Ur Auto Rfx negat socrates negative [facility]: [address] [facility] High Blood, Urine Blood Rfx 1+ negati ve [facility]: [address] [facility] Normal WBC, Urine Auto Rfx 2 /hpf 0-3 /hpf [facility]: [address] [facility] Normal RBC, Urine Auto Rfx 2 /hpf 0-3 /hpf [facility]: [address] [facility] Normal Bacteria, Urine Auto Rfx negative ne gative [facility]: [address] [facility] Normal Squam Epithelial Cell Ur Aurfx 5 /hp f 0-6 /hpf [facility]: [address] [facility] Normal Hyaline Cast, Urine Auto Rfx 0 /lpf 0-1 /lpf [facility]: [address] [facility] 07/08/2021 Cbc High White Blood Count 18.9 10 4.0-10 .0 10 [facility]: [address] [facility] Low Red Blood Count 3.72 10 4.00-5.40 10 [facility]: [address] [facility] Low Hemoglobin 9.2 g/dL 12.0-15.5 g/dL F inal [facility]: 0 [facility] Low Hematocrit 29.3 % 36.0-47.0 % [facility]: [address] [place] [address] Low Mean Corpuscular Volume 78.8 fL 80.0 -96.0 fL [facility]: [address] [place] [address] Low Mean Corpuscular Hemoglobin 24.7 pg 27.0-33.0 pg [facility]: [address] [place] [address] Low Mean Corpuscular HGB Conc 31.4 g/dL 32.0-36.5 g/dL [facility]: [address] [place] [address] High Red Cell Distribution Width 15.6 % 1 1.5-14.5 % [facility]: [address] [place] [address] Normal Platelet Count, Automated 391 10 150 -450 10 [facility]: [address] [place] [address] Normal Nucleated Red Blood Cell % 0.0 % 0- 0 % [facility]: [address] [place] [address] 07/08/2021 BMP, Serum or Plasma High Glucose, Fastin g 115 mg/dL 70-100 mg/dL [facility]: 83 0 [facility] Normal Blood Urea Nitrogen 10 mg/dL 7-18 mg /dL [facility]: [address] [place] [address] Normal Creatinine for GFR 0.67 mg/dL 0.55-1 .30 mg/dL [facility]: [address] [place] [address] Normal Glomerular Filtration Rate > 60.0 >6 0 [facility]: 0 [facility] Normal Sodium Level 142 mEq/L 136-145 mEq/L [facility]: 0 [facility] D Potassium Serum 4.8 mEq/L 3.5-5.1 mE q/L [facility]: [address] [place] [address] High Chloride Level 109 mEq/L 98-107 mEq/ L [facility]: [address] [place] [address] Normal Carbon Dioxide Level 25 mEq/L 21-32 mEq/L [facility]: [address] [place] [address] Normal Anion Gap 8 mEq/L 8-16 mEq/L [facility]: [address] [place] [address] Normal Calcium Level 8.8 mg/dL 8.5-10.1 mg/ dL [facility]: [address] [place] [address] 07/08/2021 Hepatic Function Panel, Serum Normal AST/SG OT 15 U/L 7-37 U/L [facility]: [address] [place] [address] Normal ALT/SGPT 41 U/L 12-78 U/L [facility]: [address] [place] [address] Normal Alkaline Phosphatase 104 U/L 45-117 U/L [facility]: [address] [place] [address] Low Bilirubin,total 0.1 mg/dL 0.2-1.0 mg /dL [facility]: [address] [place] [address] Normal Bilirubin,direct < 0.1 mg/dL 0.0-0.2 mg/dL [facility]: [address] [place] [address] Low Total Protein 6.1 gm/dL 6.4-8.2 gm/d L [facility]: [address] [place] [address] Low Albumin 3.0 gm/dL 3.2-5.2 gm/dL [facility]: [address] [place] [address] Low Albumin/globulin Ratio 1.0 1.2-2. 2 [facility]: [address] [place] [address] 07/07/2021 Istat ABG High Istat pH 7.473 units 7.350-7. 450 units [facility]: [address] [place] [address] Normal Istat pCO2 38.4 mmHg 35.0-45.0 mmHg [facility]: [address] [place] [address] Low Istat pO2 70.0 mmHg 80-105 mmHg [facility]: [address] [place] [address] High Istat TCO2 29.0 mmol/L 23.0-27.0 mmo l/L [facility]: [address] [place] [address] High Istat HCO3 28.1 mmol/L 22.0-26.0 mmo l/L [facility]: [address] [place] [address] High Istat Base Excess 5.0 mmol/L -2.0-3. 0 mmol/L [facility]: [address] [place] [address] Normal Istat So2 95 % 95-98 % [facility]: [address] [place] [address] 07/07/2021 CBC W/ Auto Diff High White Blood Count 14.1 10 4.0-10.0 10 [facility]: [address] [place] [address] Normal Red Blood Count 4.23 10 4.00-5.40 10 [facility]: [address] [place] [address] Low Hemoglobin 10.3 g/dL 12.0-15.5 g/dL [facility]: [address] [place] [address] Low Hematocrit 32.7 % 36.0-47.0 % [facility]: [address] [place] [address] Low Mean Corpuscular Volume 77.3 fL 80.0 -96.0 fL [facility]: [address] [place] [address] Low Mean Corpuscular Hemoglobin 24.3 pg 27.0-33.0 pg [facility]: [address] [place] [address] Low Mean Corpuscular HGB Conc 31.5 g/dL 32.0-36.5 g/dL [facility]: [address] [place] [address] High Red Cell Distribution Width 15.2 % 1 1.5-14.5 % [facility]: [address] [place] [address] Normal Platelet Count, Automated 374 10 150 -450 10 [facility]: [address] [place] [address] Normal Nucleated Red Blood Cell % 0.0 % 0- 0 % [facility]: [address] [place] [address] 07/07/2021 Differential Panel, Blood Normal Neutrophil s 56 % 28-66 % [facility]: [address] [facility] Normal Lymphocytes 30 % 16-44 % Final [facility]: [address] [facility] High Monocytes 7 % 0-5 % Final [facility]: [address] [facility] High Eosinophils 5 % 0-3 % Final [facility]: [address] [facility] Normal Basophils 1 % 0-1 % Final [facility]: [address] [facility] Normal Atypical Lymph 1 % 0-5 % [facility]: [address] [facility] Normal Hypochromasia 1+ Final [facility]: [address] [facility] Normal Anisocytosis 1+ Final [facility]: [address] [facility] Normal Microcytosis 1+ Final [facility]: [address] [facility] Normal Ovalocytes 1+ Final [facility]: [address] [facility] Normal Smudge Cells 1+ Final [facility]: [address] [facility] Normal Platelet Clumps small amt Fin [facility]: [address] [facility] 07/07/2021 Platelet Count, Estimate, Blood Normal Platelet Estimate normal normal [facility]: [address] [facility] 07/07/2021 Influenza A/B RSV Covid Amp Normal Influenza a Amplification negative negative [facility]: [address] [facility] Normal Influenza B Amplification negative n egative [facility]: [address] [facility] Normal RSV Amplification negative negative [facility]: [address] [facility] Normal Sars Covid-19 Amplification negative negative [facility]: [address] [facility] 07/07/2021 Cardiovascular Assessment Panel, Serum Normal CPK Creatine Phosphokinase 45 U/L 26-192 U/L [facility]: [address] [facility] Normal CK-mb Value Mass < 1.0 NG/mL <3.6 NG /mL [facility]: [address] [facility] Normal mb/CK Relative Index 2.22 < or =4 [facility]: [address] [facility] Normal Troponin I < 0.02 NG/mL < 0.10 NG/mL [facility]: [address] [facility] 07/07/2021 Hepatic Function Panel, Serum Normal AST/SG OT 15 U/L 7-37 U/L [facility]: 0 [facility] Normal ALT/SGPT 30 U/L 12-78 U/L [facility]: [address] [facility] Normal Alkaline Phosphatase 111 U/L 45-117 U/L [facility]: 0 [facility] Low Bilirubin,total 0.1 mg/dL 0.2-1.0 mg /dL [facility]: 0 [facility] Normal Bilirubin,direct < 0.1 mg/dL 0.0-0.2 mg/dL [facility]: 0 [facility] Normal Total Protein 6.6 gm/dL 6.4-8.2 gm/d L [facility]: 0 [facility] Normal Albumin 3.2 gm/dL 3.2-5.2 gm/dL Drea l [facility]: 0 [facility] Low Albumin/globulin Ratio 0.9 1.2-2. 2 [facility]: [address] [facility] 07/07/2021 BMP, Serum or Plasma Normal Glucose, Fastin g 97 mg/dL 70-100 mg/dL [facility]: 83 0 [facility] Normal Blood Urea Nitrogen 9 mg/dL 7-18 mg/ dL [facility]: 0 [facility] Normal Creatinine for GFR 0.68 mg/dL 0.55-1 .30 mg/dL [facility]: 0 [facility] Normal Glomerular Filtration Rate > 60.0 >6 0 [facility]: [address] [facility] Normal Sodium Level 141 mEq/L 136-145 mEq/L [facility]: 0 [facility] Low Potassium Serum 3.4 mEq/L 3.5-5.1 mE q/L [facility]: [address] [facility] Normal Chloride Level 105 mEq/L 98-107 mEq/ L [facility]: [address] [facility] Normal Carbon Dioxide Level 28 mEq/L 21-32 mEq/L [facility]: [address] [facility] Normal Anion Gap 8 mEq/L 8-16 mEq/L [facility]: [address] [facility] Normal Calcium Level 8.8 mg/dL 8.5-10.1 mg/ dL [facility]: [address] [facility] 07/07/2021 Drug Screen, Urine Normal Amphetamines Leve l Urine negative negative [facility]: 83 0 [facility] High Barbiturates Urine positive negative [facility]: [address] [facility] High Benzodiazepines Urine positive negat socrates [facility]: [address] [facility] Normal Cannabinoids Urine negative negative [facility]: [address] [facility] Normal Cocaine Metabolite Urine negative ne gative [facility]: [address] [facility] Normal Methadone Urine negative negative Fi nal [facility]: [address] [facility] High Opiates Urine positive negative Drea l [facility]: [address] [facility] Normal Phencyclidine Urine negative negativ e [facility]: [address] [facility] 07/07/2021 ESR (Erythrocyte Sedimentation Rate), Blood Hig h Erythrocyte Sedimentation Rate 52 mm/HR 0-20 mm/HR [facility]: [address] [facility] 07/07/2021 D-dimer, Quant, Plasma Normal D-dimer Quant 333.30 NG/mL <500 NG/mL [facility]: 83 0 [facility] 07/07/2021 Lactic Acid, Serum or Plasma Panic High Lactic Acid Sepsis Protocol 4.1 mmol/L 0.4-2.0 mmol/L [facility]: [address] [facility] 07/07/2021 Respiratory Virus Panel [id number] No observ ation recorded. [facility]: [address] [place] [address] 07/07/2021 Magnesium, Serum or Plasma Normal Magnesium Level 1.8 mg/dL 1.8-2.4 mg/dL [facility]: 83 0 [facility] 07/07/2021 Pro BNP (Pro B-type Natriuretic Peptide), Serum or Plasma Normal Nt-pro BNP 30 pg/mL <125 pg/mL Final [facility]: [address] [place] [address] 07/07/2021 TIBC (Total Iron-binding Capacity), Serum Low Iron (Fe) 25 ug/dL 50-170 ug/dL [facility] nter: [address] [place] [address] Normal Total Iron Binding Capacity 376 ug/d L 250-450 ug/dL [facility]: [address] [place] [address] Low Percent Saturation 6.6 % 13.2-45.0 % [facility]: [address] [place] [address] 07/07/2021 C3 (Complement), Serum or Plasma Normal Complement C3 166 mg/dL 90-180 mg/dL [facility] n[facility]: [address] [place] [address] 07/07/2021 C4 (Complement), Serum or Plasma High Com plement C4 46 mg/dL 10-40 mg/dL [facility]: 83 0 [facility] 07/07/2021 Vitamin B12, Serum Normal Vitamin B12 Level 850 pg/mL 247-911 pg/mL [facility]: 83 0 [facility] 07/07/2021 Folate, Serum Normal Folate 10.6 NG/mL >5.4 NG /mL [facility]: 0 [facility] 07/07/2021 Ferritin, Serum or Plasma Normal Ferritin 19 NG/mL 8-252 NG/mL [facility]: [address] [place] [address] 07/07/2021 C Reactive Protein, QN, Serum or Plasma High C Reactive Protein Quantitativ 3.58 mg/dL 0.00-0.30 mg/dL [facility]: [address] [facility] 07/07/2021 Glucose, Fingerstick, Blood High Bedside Glucose 178 mg/dL 70- 105 mg/dL [facility]: 83 0 [facility] 07/07/2021 Gas Panel, Arterial Blood High ABG pH (Ar terial) 7.468 units 7.350-7.450 units [facility]: 83 0 [facility] Low ABG Partial Pressure CO2 32.8 mmHg 3 5.0-45.0 mmHg [facility]: [address] [facility] Low ABG Partial Pressure O2 61.5 mmHg 75 .0-100.0 mmHg [facility]: 0 [facility] Normal ABG Total CO2 24.2 mEq/L 22.0-29.0 m Eq/L [facility]: [address] [facility] Normal Abg Hco3 23.2 mEq/L 22.0-26.0 mEq/L [facility]: [address] [facility] Normal ABG Base Excess 0.0 -2.0-2.0 Drea l [facility]: [address] [facility] Normal ABG Standard HCO3 24.4 mEq/L 22.0-26 .0 mEq/L [facility]: [address] [facility] Low ABG O2 Saturation 91.9 % 95.0-99.0 % [facility]: [address] [facility] 07/07/2021 Lactic Acid, Serum or Plasma Panic High Lactic Acid Sepsis Protocol 4.8 mmol/L 0.4-2.0 mmol/L [facility]: [address] [facility] 07/07/2021 Procalcitonin, Serum Normal Procalcitonin 0.09 [facility]: 0 [facility] 07/07/2021 Choriogonadotropin, Quant, Serum or Plasma Norm al HCG, Serum Quantitative < 1.0 mIU/mL [facility]: 0 [facility] 07/07/2021 Troponin I, Blood Normal Troponin I < 0.02 NG/mL < 0.10 NG/mL [facility]: 0 [facility] 07/07/2021 TSH, Serum or Plasma Normal Thyroid Stimulating Hormone 0.696 uIU/mL 0.358-3.740 uIU/mL [facility] nter: [address] [place] [address] 07/07/2021 T4, Free, Serum Low Free T4 0.65 NG/dL 0.76 -1.46 NG/dL [facility]: [address] [place] [address] 07/07/2021 T3, Total, Serum Low Total T3 49.3 NG/d L 60.0-181.0 NG/dL [facility]: [address] [place] [address] 07/07/2021 Sickle Cell Screen, Qual, Light Microscopy, Blood Normal Sickle Cell Screen negative negative [facility]: [address] [place] [address] 07/07/2021 Lactic Acid Level, Lactate Panic High Lactic Acid Level, Lactate 4.3 mmol/L 0.4-2.0 mmol/L Final [facility]: [address] [place] [address] 07/07/2021 Lactic Acid, Serum or Plasma Panic High Lactic Acid Sepsis Protocol 3.7 mmol/L 0.4-2.0 mmol/L [facility]: 0 [facility] 07/07/2021 Periph Smear for Path Review Normal Slide R theresa report [facility]: [address] [place] [address] Normal Source peripheral smear Final [facility]: [address] [place] [address] Normal Reason for Review atypical lymphs [facility]: [address] [facility] 07/07/2021 Mrsa Screen, PCR Normal MRSA PCR Screen no t detected negative [facility]: [address] [place] [address] 07/07/2021 Culture, Blood BLOOD No observation recorded. [facility]: [address] [place] [address] 07/07/2021 Pathology Request for Service Periph eral Smear-path Review [facility]: 83 0 [facility] 07/07/2021 LDH Lactate Dehydrogenase Normal LD H Lactate Dehydrogenase 245 U/L 84-246 U/L [facility]: 830 [facility] 07/07/2021 Acetaminophen, Serum Low Acetaminophen L evel 8.7 ug/mL 10.0- 30.0 ug/mL [facility]: 83 0 [facility] 07/07/2021 Culture, Blood BLOOD No observation recorded. [facility]: [address] [facility] 07/07/2021 Haptoglobin Normal Haptoglobin 208 mg/dL 33-27 8 mg/dL Final [facility]: [address] [facility] 07/07/2021 Complement C2, Serum Normal Complement C2 2.8 mg/dL 1.4-3.3 mg/dL [facility]: 83 0 [facility] 07/02/2021 SARS CoV 2 RNA (COVID-19), QL, music director-PCR, Respiratory Specim en Covid-19 PCR negative negative [facility]): 4 [facility] 07/02/2021 Lactic Acid La 1.1 mmol/L 0.4-2.0 mmo l/L [facility]): 4 [facility] 07/02/2021 CMP, Serum or Plasma Glu 100 mg/dL 74- 106 mg/dL [facility] 4 [facility] Bun 9 mg/dL 7-18 mg/dL [facility] ([facility]): 4 [facility] Cre 0.67 mg/dL 0.6-1.0 mg/dL [facility] 4 [facility] [facility] Na [facility] mmol/L 136-145 mmol/L [facility] ([facility]): 4 [facility] Low K 3.3 mmol/L 3.5-5.1 mmol/L [facility] ([facility]): 4 [facility] Cl 103 mmol/L 98-107 mmol/L [facility] ([facility]): 4 [facility] Co2 27 mmol/L 21-32 mmol/L [facility] ([facility]): 4 [facility] Ca 8.9 mg/dL 8.5-10.1 mg/dL [facility] ([facility]): 4 [facility] Gap 11.0 mmol/L 5-12 mmol/L [facility] ([facility]): 4 [facility] Gfr >90 mL/min [facility] ([facility] 4 [facility] Low Ast 9 U/L 15-37 U/L Final [facility] ([facility]): 4 [facility] Alt 23 U/L 12-78 U/L [facility] 4 [facility] High Alk 119 U/L 46-116 U/L [facility] ([facility]): 4 [facility] Low Tbili 0.1 mg/dL 0.2-1.0 mg/dL [facility] ([facility]): 4 [facility] Tp 6.9 g/dL 6.4-8.2 g/dL [facility] ([facility]): 4 [facility] Low Alb 3.1 gm/dL 3.4-5.0 gm/dL [facility] ([facility]): 4 [facility] 07/02/2021 Bnp Bnp 28 pg/mL 0-125 pg/mL [facility] ([facility]): 4 [facility] 07/02/2021 Urine Microscopic High Urbc tntc /hpf 0-3 /h pf [facility] ([facility]): 4 [facility] High UWBC Reflex 0-2 /hpf 0-5 /hpf [facility] ([facility]): 4 [facility] Uec 1+ /hpf 0 /hpf Final [facility] ([facility]): 4 [facility] High Ub Reflex 1+ none seen Final [facility] ([facility]): 4 [facility] Uyeast present Final [facility] ([facility]): 4 [facility] 07/02/2021 Urinalysis Complete, Reflex Culture Ucol yellow [facility] ([facility]): 4 [facility] Uapp slighty cloudy Final [facility] ([facility]): 4 [facility] Ugl negative mg/dL negative mg/dL [facility] ([facility]): 4 [facility] Ubil negative negative Final [facility] ([facility]): 4 [facility] Uket negative mg/dL negative mg/dL [facility] ([facility]): 4 [facility] Sgu 1.010 1.005-1.030 Final [facility] ([facility]): 4 [facility] High Ubl Reflex 3+(large) negative Final [facility] ([facility]): 4 [facility] Yimi 6.5 5.0-9.0 Final [facility] ([facility]): 4 [facility] Upro Reflex negative mg/dL negative mg/dL Final [facility] ([facility]): 4 [facility] Uuro normal(0.2-1) mg/dL 0-1 mg/dL [facility] ([facility]): 4 [facility] Unit Reflex negative negative Final [facility] ([facility]): 4 [facility] Ule Reflex negative negative Final [facility] ([facility]): 4 [facility] 07/02/2021 Magnesium, Serum or Plasma mg 2.0 mg/ dL 1.8-2.4 mg/dL [facility] ([facility]): 4 [facility] 07/02/2021 Troponin-high Sensitivity Trophs 5.4 NG /L 0-60.4 NG/L [facility] ([facility]): 4 [facility] 07/02/2021 Troponin-high Sensitivity Trophs 4.6 NG /L 0-60.4 NG/L [facility] ([facility]): 4 [facility] 07/02/2021 TORCH Respiratory Panel Tadeno not detected detected not detected Final [facility] ([facility]): 4 Full [facility] [id number] not detected detected not detected Final [facility] ([facility]): 4 [facility] Tcorohku1 not detected detected not detected Final [facility] ([facility]): 4 [facility] [id number] not detected detected not detected Final [facility] ([facility]): 4 [facility] [id number] not detected detected not detected [facility] ([facility]): 4 [facility] Tcorosars2 not detected detected not detected [facility] ([facility]): 4 [facility] Thummet not detected detected not de tected [facility] ([facility]): 4 [facility] Thumrhino detected detected not dete cted [facility] ([facility]): 4 [facility] Tflua not detected detected not dete cted [facility] ([facility]): 4 [facility] Tflub not detected detected not dete cted [facility] ([facility]): 4 [facility] Tparaflu1 not detected detected not detected [facility] ([facility]): 4 [facility] Tparaflu2 not detected detected not detected [facility] ([facility]): 4 [facility] Tparaflu3 not detected detected not detected [facility] ([facility]): 4 [facility] Tparaflu4 not detected detected not detected [facility] ([facility]): 4 [facility] Trsv not detected detected not detec jina [facility] ([facility]): 4 [facility] Tbordpara not detected detected not detected [facility] ([facility]): 4 [facility] Tbord not detected detected not dete cted [facility] ([facility]): 4 [facility] Tchlamypne not detected detected not detected [facility] ([facility]): 4 [facility] Tmycpne not detected detected not de tected [facility] ([facility]): 4 [facility] 07/02/2021 CBC W/ Auto Diff Wbc 8.3 K/mm3 4.0-10. 0 K/mm3 Final [facility] ([facility]): 4 [facility] Rbc 4.10 M/mm3 4.00-5.50 M/mm3 [facility] ([facility]): 4 [facility] Low Hgb 10.2 gm/dL 12.0-16.0 gm/dL [facility] ([facility]): 4 [facility] Low Hct 30.9 % 36.0-48.8 % [facility] ([facility]): 4 [facility] Low Mcv 75.4 fL 80-96 fL [facility] 4 [facility] Low Mch 24.9 pg 27.0-31.0 pg Final [facility] ([facility]): 4 [facility] Mchc 33.0 g/dL 32.0-36.0 g/dL [facility] ([facility]): 4 [facility] High Rdw 14.8 % 10.0-14.5 % [facility] ([facility]): 4 [facility] Plt 336 K/mm3 172-450 K/mm3 Final [facility] ([facility]): 4 [facility] Mpv 10.2 fL 9.0-13.0 fL Final [facility] ([facility]): 4 [facility] High Gr% 88.9 % 50-80.0 % [facility] 4 [facility] High Ig% 0.4 % 0.0-0.2 % [facility] 4 [facility] Low Ly% 8.8 % 25.0-50.0 % Final [facility] ([facility]): 4 [facility] Low Mo% 1.8 % 2.0-10.0 % [facility] ([facility]): 4 [facility] Eo% 0.0 % 0-5.0 % [facility] 4 [facility] Ba% 0.1 % 0.0-2.0 % [facility] 4 [facility] Gr# 7.4 K/mm3 2.0-8.00 K/mm3 [facility] ([facility]): 4 [facility] Ig# 0.0 K/mm3 0.0-0.2 K/mm3 [facility] ([facility]): 4 [facility] Low Ly# 0.7 K/mm3 1.0-5.0 K/mm3 [facility] ([facility]): 4 [facility] Mo# 0.2 K/mm3 0.10-1.20 K/mm3 [facility] ([facility]): 4 [facility] Eo# 0.0 K/mm3 0.0-0.5 K/mm3 [facility] ([facility]): 4 [facility] Ba# 0.0 K/mm3 0.0-0.2 K/mm3 [facility] ([facility]): 4 [facility] 07/02/2021 Gas Panel, Venous Blood High Vph 7.44 7.3 1-7.41 [facility] ([facility]): 4 [facility] Low Vpco2 35.1 mmHg 41-51 mmHg [facility] ([facility]): 4 [facility] High Vpo2 89 mmHg 35-42 mmHg [facility] ([facility]): 4 [facility] High Vo2 Sat 97.3 % 68-77 % [facility] ([facility]): 4 [facility] Low Vhco3 23.5 mEq/L 24.0-25.0 mEq/L [facility] ([facility]): 4 [facility] Vbe 0.1 -3.0-3.0 [facility] ([facility]): 4 [facility] Vctco2 24.6 mmol/L 23.0-32.0 mmol/L [facility] ([facility]): 4 [facility] 07/02/2021 CMP, Serum or Plasma High Glu 164 mg/dL 74- 106 mg/dL [facility] ([facility]): 4 [facility] Low Bun 5 mg/dL 7-18 mg/dL [facility] ([facility]): 4 [facility] Cre 0.72 mg/dL 0.6-1.0 mg/dL [facility] ([facility]): 4 [facility] Na 141 mmol/L 136-145 mmol/L [facility] ([facility]): 4 [facility] K 3.7 mmol/L 3.5-5.1 mmol/L [facility] ([facility]): 4 [facility] Cl 104 mmol/L 98-107 mmol/L [facility] ([facility]): 4 [facility] Co2 25 mmol/L 21-32 mmol/L [facility] ([facility]): 4 [facility] Ca 8.7 mg/dL 8.5-10.1 mg/dL [facility] ([facility]): 4 [facility] Gap 12.0 mmol/L 5-12 mmol/L [facility] ([facility]): 4 [facility] Gfr >90 mL/min [facility] ([facility]): 4 [facility] Low Ast 14 U/L 15-37 U/L [facility] ([facility]): 4 [facility] Alt 31 U/L 12-78 U/L [facility] ([facility]): 4 [facility] Alk 113 U/L 46-116 U/L [facility] ([facility]): 4 [facility] Low Tbili < 0.1 mg/dL 0.2-1.0 mg/dL [facility] ([facility]): 4 [facility] Tp 6.9 g/dL 6.4-8.2 g/dL [facility] ([facility]): 4 [facility] Low Alb 3.0 gm/dL 3.4-5.0 gm/dL [facility] ([facility]): 4 [facility] 07/02/2021 C Reactive Protein High Crp 55.8 mg/L 0.0-3 .0 mg/L [facility] ([facility]): 4 [facility] 04/02/2021 CBC W/ Auto Diff High White Blood Count 13.0 10 4.0-10.0 10 [facility]: [address] [facility] Normal Red Blood Count 4.29 10 4.00-5.40 10 [facility]: [address] [facility] Low Hemoglobin 10.4 g/dL 12.0-15.5 g/dL [facility]: [address] [facility] Low Hematocrit 33.8 % 36.0-47.0 % [facility]: [address] [facility] Low Mean Corpuscular Volume 78.8 fL 80.0 -96.0 fL [facility]: [address] [place] [address] Low Mean Corpuscular Hemoglobin 24.2 pg 27.0-33.0 pg [facility]: [address] [place] [address] Low Mean Corpuscular HGB Conc 30.8 g/dL 32.0-36.5 g/dL Final [facility]: [address] [place] [address] High Red Cell Distribution Width 15.7 % 1 1.5-14.5 % [facility]: [address] [place] [address] Normal Platelet Count, Automated 361 10 150 -450 10 [facility]: 0 [facility] Normal Neutrophils % 62.9 % 36.0-66.0 % [facility]: [address] [facility] Normal Lymph % 28.4 % 24.0-44.0 % Final [facility]: [address] [facility] Normal [place] % 5.2 % 2.0-8.0 % [facility]: 0 [facility] Normal Eos % 2.5 % 0.0-3.0 % [facility]: [address] [place] [address] Normal Baso % 0.5 % 0.0-1.0 % [facility]: 0 [facility] Normal Immature Granulocyte % 0.5 % 0-3.0 % [facility]: 0 [facility] Normal Nucleated Red Blood Cell % 0.0 % 0- 0 % [facility]: [address] [facility] Normal Neutrophils # 8.2 10 1.5-8.5 10 [facility]: 0 [facility] Normal Lymph # 3.7 10 1.5-5.0 10 [facility]: 0 [facility] Normal [place] # 0.7 10 0.0-0.8 10 [facility]: [address] [facility] Normal Eos # 0.3 10 0.0-0.5 10 [facility]: [address] [place] [address] Normal Baso # 0.1 10 0.0-0.2 10 [facility]: [address] [place] [address] 04/02/2021 PT/INR Normal Prothrombin Time 13.6 secon ds 12.5-14.3 seconds [facility]: [address] [place] [address] Normal Inr 1.02 [facility]: [address] [place] [address] 04/02/2021 Partial Thromboplastin Time Normal Partial Thromboplastin Time 34.5 seconds 24.2-38.[address] [facility] nter: [address] [place] [address] 04/02/2021 Cardiovascular Assessment Panel, Serum Normal CPK Creatine Phosphokinase 155 U/L 26-192 U/L [facility]: [address] [place] [address] Normal CK-mb Value Mass < 1.0 NG/mL <3.6 NG /mL [facility]: [address] [place] [address] Normal mb/CK Relative Index 0.65 < or =4 [facility]: [address] [place] [address] Normal Troponin I < 0.02 NG/mL < 0.10 NG/mL [facility]: [address] [place] [address] 04/02/2021 Hepatic Function Panel, Serum Normal AST/SG OT 12 U/L 7-37 U/L [facility]: [address] [place] [address] Normal ALT/SGPT 27 U/L 12-78 U/L [facility]: [address] [place] [address] High Alkaline Phosphatase 132 U/L 45-117 U/L [facility]: [address] [place] [address] Low Bilirubin,total 0.1 mg/dL 0.2-1.0 mg /dL [facility]: [address] [place] [address] Normal Bilirubin,direct < 0.1 mg/dL 0.0-0.2 mg/dL [facility]: [address] [place] [address] Normal Total Protein 6.4 gm/dL 6.4-8.2 gm/d L [facility]: [address] [place] [address] Normal Albumin 3.2 gm/dL 3.2-5.2 gm/dL Drea l [facility]: [address] [place] [address] Low Albumin/globulin Ratio 1.0 1.2-2. 2 [facility]: [address] [place] [address] 04/02/2021 C-reactive Protein, Qualitative, Serum Normal Glucose, Fasting 88 mg/dL 70-100 mg/dL [facility] nter: [address] [place] [address] Normal Blood Urea Nitrogen 7 mg/dL 7-18 mg/ dL [facility]: [address] [place] [address] Normal Creatinine for GFR 0.71 mg/dL 0.55-1 .30 mg/dL [facility]: [address] [place] [address] Normal Glomerular Filtration Rate > 60.0 >6 0 [facility]: [address] [place] [address] Normal Sodium Level 142 mEq/L 136-145 mEq/L [facility]: [address] [place] [address] Normal Potassium Serum 3.6 mEq/L 3.5-5.1 mE q/L [facility]: [address] [place] [address] High Chloride Level 111 mEq/L 98-107 mEq/ L [facility]: [address] [place] [address] Normal Carbon Dioxide Level 28 mEq/L 21-32 mEq/L [facility]: [address] [place] [address] Low Anion Gap 3 mEq/L 8-16 mEq/L [facility]: [address] [place] [address] Low Calcium Level 8.3 mg/dL 8.5-10.1 mg/ dL [facility]: [address] [place] [address] 04/02/2021 Amylase, Serum or Plasma Normal Amylase 30 U/L 25-115 U/L [facility]: [address] [place] [address] 04/02/2021 Lipase, Serum or Plasma Low Lipase 45 U/L 7 3-393 U/L [facility]: [address] [place], [place] [id number] 04/02/2021 Ethanol, Blood Normal Ethyl Alcohol (Ethano l) < 0.003 % 0.000- 0.010 % [facility]: [address] 0 [facility] 04/02/2021 Lactic Acid, Serum or Plasma Normal Lactic Acid Sepsis Protocol 1.6 mmol/L 0.4-2.0 mmol/L [facility]: [address] [facility] 04/02/2021 Type + Screen, Serum Normal Blood Type O posit socrates [facility]: [address] [facility] Normal Ab Screen (Indirect Colin)vis negat socrates [facility]: [address] [facility] 04/02/2021 UA W/ Reflex to Culture Normal Appearance, Urine Rfx clear clear [facility]: [address] 0 [facility] Normal Color, Urine Rfx yellow yellow [facility]: [address] [facility] Normal pH,urine Rfx 6.0 units 5.0-9.0 units [facility]: [address] [facility] Normal Specific [place] Ur Auto Rfx 1.018 1.002-1.035 [facility]: [address] [facility] Normal Protein, Urine Auto Rfx negative mg/ dL negative mg/dL [facility]: [address] [facility] Normal Glucose, Urine (UA) Auto Rfx n egative mg/dL negative mg/dL [facility]: [address] [facility] Normal Ketone, Urine Auto Rfx negative mg/d L negative mg/dL [facility]: [address] [facility] Normal Urobilinogen, Urine Auto Rfx 0.2 mg/ dL 0.0-2.0 mg/dL [facility]: [address] [facility] Normal Bilirubin, Urine Auto Rfx negative n egative [facility]: [address] [facility] Normal Nitrite, Urine Auto Rfx negative neg ative [facility]: [address] [facility] Normal Leukocyte Esterase Ur Auto Rfx negat socrates negative [facility]: [address] [facility] Normal Blood, Urine Blood Rfx negative nega tive [facility]: [address] [facility] Normal WBC, Urine Auto Rfx 0 /hpf 0-3 /hpf [facility]: [address] [facility] Normal RBC, Urine Auto Rfx 0 /hpf 0-3 /hpf [facility]: [address] [facility] Normal Bacteria, Urine Auto Rfx negative ne gative [facility]: [address] [facility] Normal Squam Epithelial Cell Ur Aurfx 3 /hp f 0-6 /hpf [facility]: [address] [facility] Normal Mucus, Urine Rfx small negative Fin al [facility]: [address] [facility] Normal Hyaline Cast, Urine Auto Rfx 0 /lpf 0-1 /lpf [facility]: [address] [facility] 04/02/2021 Drug Screen, Urine Normal Amphetamines Leve l Urine negative negative [facility]: [address] [facility] High Barbiturates Urine positive negative [facility]: [address] [facility] Normal Benzodiazepines Urine negative negat socrates [facility]: [address] [facility] High Cannabinoids Urine positive negative [facility]: [address] [facility] Normal Cocaine Metabolite Urine negative ne gative [facility]: [address] [facility] Normal Methadone Urine negative negative Fi nal [facility]: [address] [facility] Normal Opiates Urine negative negative Drea l [facility]: [address] [facility] Normal Phencyclidine Urine negative negativ e [facility]: [address] [facility] 03/07/2021 CBC W/ Auto Diff Blood venous No observation re corded. [facility]: [address] [facility] [address], [place] 03/07/2021 TSH + Free T4, Serum Blood venous No observa tion recorded. 03/07/2021 CMP, Serum or Plasma Blood venous No observa tion recorded. 03/07/2021 Lipid Panel, Serum Blood venous No observation recorded. [facility]: [address] [facility] [address], [place] 03/07/2021 HbA1C (Hemoglobin a1C), Blood Blood venous No observation recorded. [facility]: [address] [facility] [address], [place] 03/07/2021 Vitamin D, 25-Hydroxy, Total, Serum Blood venous No observation recorded. [facility]: [address] [facility] [address], [place] 03/07/2021 Lupus Anticoagulant, Plasma Blood venous No observation recorded. [facility]: [address] [facility] [address], [place] 03/05/2021 Levetiracetam, Serum Normal Levetiracetam ( Keppra) 10.2 ug/mL 10.0-40.0 ug/mL [facility]: [address] 0 [facility] 02/20/2021 Istat Chem8+ Panel Low Istat HCT 37.0 % 38. 0-51.0 % [facility] Surgery: 830 [facility] Normal Istat Glucose 94 mg/dL 70-105 mg/dL [facility]: [address] [facility] Normal Istat Sodium 140 mEq/L 136-145 mEq/L [facility]: [address] [facility] Normal Istat Potassium 4.3 mEq/L 3.5-5.1 mE q/L [facility]: [address] [facility] Normal Istat Ca++ 5.0 mg/dL 4.5-5.3 mg/dL [facility]: [address] [facility] Normal Istat Chloride 107 mEq/L 98-109 mEq/ L [facility]: [address] [facility] Normal Istat CO2 26.0 mm/L 23.0-27.0 mm/L [facility]: [address] [facility] Normal Istat BUN 9 mg/dL 8-26 mg/dL [facility]: [address] [facility] Low Istat Creatinine 0.5 mg/dL 0.6-1.3 m g/dL [facility]: [address] [facility] 02/20/2021 CBC W/ Auto Diff High White Blood Count 12.7 10 4.0-10.0 10 [facility]: [address] [facility] Normal Red Blood Count 4.60 10 4.00-5.40 10 [facility]: [address] [facility] Low Hemoglobin 11.4 g/dL 12.0-15.5 g/dL [facility]: [address] [facility] Normal Hematocrit 37.4 % 36.0-47.0 % [facility]: [address] [place] [address] Normal Mean Corpuscular Volume 81.3 fL 80.0 -96.0 fL [facility]: [address] [place] [address] Low Mean Corpuscular Hemoglobin 24.8 pg 27.0-33.0 pg [facility]: [address] [place] [address] Low Mean Corpuscular HGB Conc 30.5 g/dL 32.0-36.5 g/dL [facility]: [address] [place] [address] High Red Cell Distribution Width 15.2 % 1 1.5-14.5 % [facility]: [address] [place] [address] Normal Platelet Count, Automated 303 10 150 -450 10 [facility]: [address] [facility] Normal Neutrophils % 63.4 % 36.0-66.0 % Fin [facility]: [address] [facility] Normal Lymph % 28.5 % 24.0-44.0 % [facility]: [address] [facility] Normal [place] % 5.6 % 2.0-8.0 % [facility]: 0 [facility] Normal Eos % 1.7 % 0.0-3.0 % [facility]: [address] [facility] Normal Baso % 0.4 % 0.0-1.0 % [facility]: [address] [facility] Normal Immature Granulocyte % 0.4 % 0-3.0 % [facility]: [address] [facility] Normal Nucleated Red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 Extremity Ester Nunn RPA-C: [address] [facility], [facility] [address], [place] [address], Ph. 12/01/2020 Neck Pain Rishabh Riley MD: [address] [facility] [address], [place] [address], Ph. 11/08/2020 Pre-surgery Evaluation; Contraception Care Management; Allergic Rhinitis; Constipation; Essential Hypertension Hugh Valente RPA-C: [address] [facility], [facility] [address], [place] [address], Ph. 10/19/2020 Essential Hypertension Hugh Valente RPA-C: [address] [facility], [facility] [address], [place] [address], Ph. 10/05/2020 Essential Hypertension; Pulmonary Hypertension; Deep Venous Thrombosis; Lupus Erythematosus; Contraception Care Management Hugh Valente RPA-C: [address] [facility], [facility] [address], [place] [address], Ph. 09/13/2020 Lupus Erythematosus; Migraine; Asthma; Essential Hypertension Hugh Valente RPA-C: [address] [facility], [facility] [address], [place] [address], Ph. Social History Tobacco Smoking Status Never Smoker Vaccine List Vaccine Type COVID-19, mRNA, LNP-S, PF, 30 mcg/0.3 mL dose 08/08/2021 08/29/2021 Hep B, adult 07/15/2021 Tdap 06/24/20200.5 mL tetanus toxoid, unspecified formulation 07/15/2021 Plan of Care Patient Instructions No s/s of infection to right forearm old iv site. may use warm compresses as needed for discomfort. Please report any increase pain, redness or swelling. BP and HR elevated today. Please continue medications as prescribed. It dizziness, chest pain , chest palpitations or SOB. Please go to the ER 911. Referral made to Cardiology and Pulmonary for you today. We will contact you to set tis up. As we discussed, we will obtain your las t labs and then order fasting labs accordingly and we will keep you on the Eliquis until your lower leg has healed. We will recheck your BP when you return for labs since you were discussing some upsetting things today at your visit. We will refer you to pulmonary for the sleep study, dermatology for your mole that is changing and for a nutritions consult. Patient is cleared preoperatively from P CP [...] Surgeries None recorded. Imaging None recorded. Vitals 09/13/2021 10:10AM ESTABLISHED [id number] Height Weight BMI Blood Pressure 64 in 264 lbs 6.4 oz 45.4 kg/m2 138/93 mm[Hg ] 09/02/2021 02:20PM ESTABLISHED [id number] Height Weight BMI Blood Pressure 64 in 261 lbs 16 oz 45 kg/m2 125/85 mm[Hg] 08/29/2021 08:50AM NURSE Height Blood Pressure 64 in 108/59 mm[Hg] 08/25/2021 02:20PM ESTABLISHED [id number] Height Weight BMI Blood Pressure 64 in 261 lbs 16 oz 45 kg/m2 (1) 155/114 m m[Hg] (2) 152/96 mm[Hg] 08/15/2021 01:00PM NURSE Height Blood Pressure 64 in 134/86 mm[Hg] 08/08/2021 09:30AM ANNUAL EXAM Height Weight BMI Blood Pressure 64 in 269 lbs 46.2 kg/m2 (1) 142/107 mm[ Hg] (2) 136/90 mm[Hg] 08/03/2021 01:40PM TCM Height Weight BMI Blood Pressure 64 in 263 lbs 6 oz 45.2 kg/m2 138/95 mm[Hg] 07/29/2021 01:00PM NURSE Height Blood Pressure 64 in 138/91 mm[Hg] 07/19/2021 01:40PM HOSPITAL DISCHARGE Height Weight BMI Blood Pressure 64 in 255 lbs 8 oz 43.9 kg/m2 157/124 mm[Hg] 04/08/2021 10:30AM HOSPITAL DISCHARGE Height Weight BMI Blood Pressure 64 in 268 lbs 8 oz 46.1 kg/m2 (1) 138/95 mm[ Hg] (2) 133/89 mm[Hg] 03/07/2021 09:40AM TCM Height Weight BMI Blood Pressure 64 in 119/87 mm[Hg] 03/07/2021 09:20AM NURSE LAB COLLECTION Height 64 in 03/01/2021 05:40PM SAME DAY 20 Height Weight BMI Blood Pressure 64 in (1) 137/102 mm[ Hg] (2) 138/88 mm[Hg] 02/07/2021 09:50AM ESTABLISHED [id number] Height Weight BMI Blood Pressure 64 in 274 lbs 6.4 oz 47.1 kg/m2 (1) 139/92 m m[Hg] (2) 144/93 mm[Hg] 12/01/2020 11:20AM SAME DAY 20 Height Weight BMI Blood Pressure 64 in 278 lbs 3.2 oz 47.8 kg/m2 142/99 mm[Hg ] 11/08/2020 01:10PM ESTABLISHED [id number] Height Weight BMI Blood Pressure 64 in 277 lbs 3.2 oz 47.6 kg/m2 119/81 mm[Hg ] 10/05/2020 01:50PM HOSPITAL DISCHARGE Height Weight BMI Blood Pressure 64 in 265 lbs 45.5 kg/m2 115/84 mm[Hg] 09/13/2020 02:50PM ESTABLISHED [id number] Height Weight BMI Blood Pressure 64 in (1) 143/99 mm[H g] (2) 146/97 mm[Hg] 06/24/2020 Height Weight BMI Blood Pressure 64 in 271 lbs 46.69 kg/m2 126/87 mm[Hg]
--- OUTSIDE RECORDS SUMMARY | 2021-10-04 04:44 | CCD ---
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 Role Phone Divine Gan Unavailable PROBLEMS Type Condition ICD9-CM Code GZI09-AC Code Onset Dates Condition S tatus W/U Status Risk SNOMED Code Notes Problem Migraine, unspecified, not intractable, without status migrainosus G43.909 Active confirmed 29018144 Problem Lumbosacral spondylosis without myelopathy M47.817 Active confirmed 89622482 Problem Secondary amenorrhea N91.1 Active confirmed 692533560 Problem Chronic migraine without aur a, not intractable, without status migrainosus G43.709 Active confirmed 305431462582491 Problem Other chronic pain G89.29 Active confirmed 8 2266608 Problem Chronic migraine G43.709 Active confirmed 42 8784978 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 A ctive confirmed 64266249 ALLERGIES Allergen (clinical drug ingredient) Drug/Non Drug Allergy do cumented on EMR Reaction Allergy Type Onset Date Status tramadol Tramadol Unknown Drug Allergy Active avocado allergenic extract Avocado (Diagnostic)(ND Code:002 68-6104-10) Anaphylaxis Drug Allergy Active enoxaparin Lovenox(NDC Code:[address]-07) Unknown Drug Allergy Active famotidine Pepcid(NDC Code:[address]-47) Nausea/Vomiting/Rash Drug A llergy Active promethazine Phenergan(NDC Code:[address]-79) Nausea/Vomiting Drug A llergy Active Kiwi Anaphylaxis Non Drug Allergy Active poractant carrol Pork-derived Products Unknown Drug Allergy Active Latex Exam Gloves Hives/anaphylaxis Drug Allergy Active banana allergenic extract Banana (Diagnostic)([facility] Code:00002 -6105-10) Anaphylaxis Drug Allergy Active hydroxychloroquine Plaquenil([facility] Code:[address]-63) Anaphylaxis Drug Allergy Active ENCOUNTERS from 1989 to 2021-09-07 Encounter Location Date Provider Diagnosis [facility] [address] [facility] [phone] [place] [address] Aug, [facility] IMMUNIZATIONS No Information SOCIAL HISTORY Tobacco Use: Social History Observation Description Date Details (start date - stop date) Former Smoker Sex Assigned At : Social History Observation Description Sex Assigned At Unknown Education: Question Answer Notes Level of Education: College Language: Question Answer Notes Languages spoken: Khmer Worship: Question Answer Notes Worship No jain beliefs that would impact health care. Alcohol [...] Notes Start Da te End Date Status Botox 100 UNIT for IM injection at the head , neck and shoulder muscles ICD G43.709 every 3 months Botox 07/05/21 10:40 16 Jun, 2021 Active HYDROcodone-Acetaminophen 5-325 MG 1 tablet as needed Orally twice daily as needed MDD2 for 30 days Aug, Active Albuterol Sulfate HFA 108 (90 Base) MCG/ACT 1 puff as needed Inhalation every 4 hrs Active Acetaminophen 325 MG 1 tablet as needed Orally every 4 hrs Not-Taking KlonoPIN 1 MG 1 tablet Orally 3 times a day 07/04/21 220 Active prednisoLONE _ 1 tablet in the morning with food or milk Orally PATIENT STATES SHE IS CURRENTLY ON A TAPERING DOSE OF PREDNISONE Not-Taking EpiPen PRN Active SEROquel 50 MG 1 cap Orally MORNING AND LUNCH Active Keppra 750 MG 2 tabs Orally bid Not- Taking Cetirizine HCl 10 MG 1 tablet Orally Once a day for 30 day(s) Active Lyrica 75 MG 1 capsule Orally Once a day 07/04/21 0900 Active Botox 100 UNIT for IM injection at the head , neck and shoulder muscles ICD G43.709 BOTOX APPT ON 11/22/2020 AT 2PM. Nov, Not-Taking Ambien 10 MG 1 tablet at bedtime as needed Orally Once a day 07/04/212199 Active Fioricet 50-325-40 MG 1 tablet as needed Orally ev darlene 4 hrs PRN headache MDD3 for 30 days Active Botox 100 UNIT for IM injection at the head , neck and shoulder muscles ICD G43.709 BOTOX on 02/21/21 at 1:00 Feb, Not-Taking hydroCHLOROthiazide 12.5 MG 1 tablet in the morning Orally Once a day Not-Taking Ambien 10 MG 1 tablet at bedtime as needed Orally Once a day Not-Taking Fluoxetine HCl 40 MG TAKE 2 CAPSULES Orally Once a day for 30 Active DuoNeb 0.5-2.5 (3) MG/3ML 3 ml as needed Inhalation every 6 hrs Not-Taking SEROquel 300 MG 1 tablet at bedtime Orally Once a day for 30 day(s) Not-Taking lamoTRIgine 100 MG 1 tablet Orally bedtime Active NIFEdipine ER 30 MG 1 tablet on an empty stomach Orally Once a day Active predniSONE 10 MG TAKE 2 TABLETS BY MOUTH ONCE A DAY FOR 7 DAYS THEN 1 TABLET ONCE A DAY FOR 7 DAYS Oral for 14 Not-Taking PROzac 40 MG 2 caps Orally Daily Not -Taking Eliquis 5MG ORAL BID Active Fiorinal 50-325-40 MG 1 capsule as needed Orally t hree times daily as needed for 30 days none in 1 week Not-Taking Albuterol ALBUTEROL NEBULIZERS PRN Active Ondansetron HCl 4 MG 1 tablet Orally every 8 hours as needed for naus ea Active BD Allergy Syringe Not-Ta ozzy Cyclobenzaprine HCl 10 MG TAKE ONE TABLET BY MOUTH FRANCINE RY 8 HOURS NEEDED FOR MUSCLE SPASMS Oral for 10 Active Ipratropium-Albuterol 0.5-2.5 (3) MG/3ML 3 ml as needed Inha lation every 6 hrs Active May Have Benlysta 200 mg subcutaneous weekly EVERYDAY SUNDAY Not-Taking lamoTRIgine 150 MG 1 tablet Orally Once a day every night Active QUEtiapine Fumarate 300 MG TAKE 1 TABLET BY MOUTH ONCE A DAY AT BEDTIME Oral for 30 Active Benlysta 200 MG/ML as directed Subcutaneous weekly Active PROCEDURES No Information RESULTS No Results REASON FOR VISIT No Information MEDICAL (GENERAL) HISTORY Type Description Date Medical [...] Medication Name Sig Start Date Stop Date HYDROcodone-Acetaminophen 5-325 MG 1 tablet as needed Orally twice daily as needed MDD2 for 30 days Aug, Fioricet 50-325-40 MG 1 tablet as needed Orally ev darlene 4 hrs PRN headache MDD3 for 30 days Next Appt Details Provider Name:Maureen Wasserman, 2021-09-21 0 3:00:00 PM, [address] [facility], , [place], [address], Provider Name:Kris Barrientos, 2021-09-27 09:30:00 AM, [address] [facility] [address], , [place], [address], Provider Name:Kris Barrientos, 2021-10-17 10:40:00 AM, [address], , [place], [address], Provider Name:Kris Barrientos, 2021-11-16 11:15:00 AM, [address], , [place], [address], Insurance Providers Payer Name Payer Address Payer Phone Insured Name Patient Relati onship to Insured Coverage Start Date Coverage End Date [facility] [employer] CLAIM[facility] DEPT [address] [facility] [phone] WINSOME RODRIGUEZ self
--- OUTSIDE RECORDS SUMMARY | 2021-10-04 04:44 | CCD ---
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 Name Role Phone Divine Gan Unavailable PROBLEMS Type Condition ICD9-CM Code [id number] Code Onset Dates Condition S tatus W/U Status Risk SNOMED Code Notes Problem Migraine, unspecified, not intractable, without status migrainosus G43.909 Active confirmed 94925015 Problem Lumbosacral spondylosis without myelopathy M47.817 Active confirmed 87951677 Problem Secondary amenorrhea N91.1 Active confirmed 904630562 Problem Chronic migraine without aur a, not intractable, without status migrainosus G43.709 Active confirmed [id number] Problem Other chronic pain G89.29 Active confirmed 8 4815900 Problem Chronic migraine G43.709 Active confirmed 42 9989772 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 A ctive confirmed 80241852 ALLERGIES Allergen (clinical drug ingredient) Drug/Non Drug Allergy do cumented on EMR Reaction Allergy Type Onset Date Status tramadol Tramadol Unknown Drug Allergy Active avocado allergenic extract Avocado (Diagnostic)(ND Code:002 68-6104-10) Anaphylaxis Drug Allergy Active enoxaparin Lovenox(NDC Code:[address]-89) Unknown Drug Allergy Active famotidine Pepcid(NDC Code:[address]-17) Nausea/Vomiting/Rash Drug A llergy Active promethazine Phenergan(NDC Code:[address]-53) Nausea/Vomiting Drug A llergy Active Kiwi Anaphylaxis Non Drug Allergy Active poractant carrol Pork-derived Products Unknown Drug Allergy Active Latex Exam Gloves Hives/anaphylaxis Drug Allergy Active banana allergenic extract Banana (Diagnostic)([facility] Code:[address]-10) Anaphylaxis Drug Allergy Active hydroxychloroquine Plaquenil([facility] Code:[address]-59) Anaphylaxis Drug Allergy Active ENCOUNTERS from 1989 to 2021-09-08 Encounter Location Date Provider Diagnosis [facility] [phone] [place] [address] Aug, [facility] IMMUNIZATIONS No Information SOCIAL HISTORY Tobacco Use: Social History Observation Description Date Details (start date - stop date) Former Smoker Sex Assigned At : Social History Observation Description Sex Assigned At Unknown Education: Question Answer Notes Level of Education: College Language: Question Answer Notes Languages spoken: Maltese Congregation: Question Answer Notes Congregation No orthodoxy beliefs that would impact health care. Alcohol [...] tablet Orally 3 times a day 07/04/21 2200 Active prednisoLONE _ 1 tablet in the [...] MG 1 tablet as needed Orally ev adrlene 4 hrs PRN headache MDD3 for 30 [...] Information RESULTS No Results REASON FOR VISIT SURGERY MEDICAL (GENERAL) HISTORY Type Description Date Medical [...] Name:Maureen Wasserman, 2021-09-21 0 3:00:00 PM, [address], , [place], [address], Provider Name:Kris Barrientos, 2021-09-27 09:30:00 AM, [address], , [place], [address], Provider Name:Kris Floyd, 2021-10-17 10:40:00 AM, [address], , [place], [address], Provider Name:Kris Barrientos, 2021-11-16 11:15:00 AM, [address], , [place], [address], Insurance Providers Payer Name Payer Address Payer Phone Insured Name Patient Relati onship to Insured Coverage Start Date Coverage End Date [facility] CORPORATE CLAIMS DEPT [phone] [facility] [phone] WINSOME [id number] self
--- OUTSIDE RECORDS SUMMARY | 2021-10-04 04:44 | CCD ---
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 RxNorm Banana Anaphylaxis Active 4840395 RxNorm Latex Active 8745 RxNorm Promethazine Rash [...] TABLET BY MOUTH TWICE A DAY Completed oimulmmtvg-gkizbhcpoqvnu-xjjozihr 50 mg- 300 mg-40 mg capsule TAKE ONE CAPSULE BY MOUTH EVERY 4 HOURS NEEDED Completed 03/01/2021 vhgshdfzie-uxbgnvylpikdp-qikugspv 50 mg- 325 mg-40 mg tablet TAKE [...] Tube Information n ot available 11/08/2020 Electrocardiogram [facility] [address] [facility] [address] [place] [address] (Work Place) 08/08/2021 MRI, Brain, W/o Contrast [facility] Radio logy [address] [place] [address] (Work Place) 09/02/2021 XR, Wrist [facility] [address] [place] [address] (Work Place) Notes: section x5, Involuntary D&C, Appendectomy, Tonsillectomy, Gallbladder Results Lab Results Date Name Specimen Result Interpretation Description Value Range Status Address 08/29/2021 RPR (Rapid Plasma Reagin), Serum Blood venous Normal RPR (DX) W/refl Titer and Confirmatory Testing non-reactive non-reactive Final Locationary [facility]: [address] [place] 08/25/2021 CBC W/ Auto Diff High White Blood Count 11.3 10 4.0-10.0 10 Final [facility]: [address] [facility] Normal Red Blood Count 4.18 10 4.00-5.40 10 [facility]: [address] [facility] Low Hemoglobin 9.9 g/dL 12.0-15.5 g/dL F inal [facility]: [address] [facility] Low Hematocrit 32.3 % 36.0-47.0 % [facility]: [address] [facility] Low Mean Corpuscular Volume 77.3 fL 80.0 -96.0 fL Final [facility]: [address] [place] [address] Low Mean Corpuscular Hemoglobin 23.7 pg 27.0-33.0 pg [facility]: [address] [place] [address] Low Mean Corpuscular HGB Conc 30.7 g/dL 32.0-36.5 g/dL [facility]: [address] [place] [address] High Red Cell Distribution Width 15.6 % 1 1.5-14.5 % [facility]: [address] [place] [address] Normal Platelet Count, Automated 292 10 150 -450 10 [facility]: [address] [facility] Normal Neutrophils % 62.6 % 36.0-66.0 % [facility]: [address] [facility] Normal Lymph % 27.2 % 24.0-44.0 % [facility]: [address] [facility] Normal [place] % 5.4 % 2.0-8.0 % Final [facility]: [address] [facility] High Eos % 3.8 % 0.0-3.0 % [facility]: [address] [facility] Normal Baso % 0.6 % 0.0-1.0 % [facility]: 0 [facility] Normal Immature Granulocyte % 0.4 % 0-3.0 % [facility]: 0 [facility] Normal Nucleated Red Blood Cell % 0.0 % 0- 0 % [facility]: [address] [place] [address] Normal Neutrophils # 7.1 10 1.5-8.5 10 [facility]: [address] [facility] Normal Lymph # 3.1 10 1.5-5.0 10 [facility]: [address] [facility] Normal [place] # 0.6 10 0.0-0.8 10 [facility]: [address] [facility] Normal Eos # 0.4 10 0.0-0.5 10 [facility]: [address] [facility] Normal Baso # 0.1 10 0.0-0.2 10 [facility]: [address] [facility] 08/25/2021 CBC W/ Auto Diff High White Blood Count 11.1 10 4.0-10.0 10 [facility]: 0 [facility] Normal Red Blood Count 4.23 10 4.00-5.40 10 [facility]: 0 [facility] Low Hemoglobin 10.0 g/dL 12.0-15.5 g/dL [facility]: [address] [place] [address] Low Hematocrit 33.0 % 36.0-47.0 % [facility]: [address] [place] [address] Low Mean Corpuscular Volume 78.0 fL 80.0 -96.0 fL [facility]: [address] [place] [address] Low Mean Corpuscular Hemoglobin 23.6 pg 27.0-33.0 pg [facility]: [address] [place] [address] Low Mean Corpuscular HGB Conc 30.3 g/dL 32.0-36.5 g/dL [facility]: 0 [facility] High Red Cell Distribution Width 15.6 % 1 1.5-14.5 % [facility]: 0 [facility] Normal Platelet Count, Automated 309 10 150 -450 10 [facility]: 0 [facility] Normal Neutrophils % 63.1 % 36.0-66.0 % [facility]: [address] [facility] Normal Lymph % 27.5 % 24.0-44.0 % Final [facility]: [address] [facility] Normal [place] % 4.5 % 2.0-8.0 % Final [facility]: [address] [facility] High Eos % 4.2 % 0.0-3.0 % [facility]: [address] [facility] Normal Baso % 0.4 % 0.0-1.0 % [facility]: [address] [facility] Normal Immature Granulocyte % 0.3 % 0-3.0 % [facility]: [address] [facility] Normal Nucleated Red Blood Cell % 0.0 % 0- 0 % [facility]: 0 [facility] Normal Neutrophils # 7.0 10 1.5-8.5 10 [facility]: [address] [facility] Normal Lymph # 3.1 10 1.5-5.0 10 [facility]: [address] [facility] Normal [place] # 0.5 10 0.0-0.8 10 [facility]: [address] [facility] Normal Eos # 0.5 10 0.0-0.5 10 [facility]: [address] [facility] Normal Baso # 0.1 10 0.0-0.2 10 [facility]: [address] [facility] 08/25/2021 Choriogonadotropin, Quant, Serum or Plasma Norm al HCG, Serum Quantitative < 1.0 mIU/mL [facility]: [address] [facility] 08/25/2021 CMP, Serum or Plasma Normal Glucose, Fastin g 90 mg/dL 70-100 mg/dL [facility]: [address] 0 [facility] Normal Blood Urea Nitrogen 10 mg/dL 7-18 mg /dL [facility]: 0 [facility] Normal Creatinine for GFR 0.62 mg/dL 0.55-1 .30 mg/dL [facility]: [address] [facility] Normal Glomerular Filtration Rate > 60.0 >6 0 [facility]: 0 [facility] Normal Sodium Level 140 mEq/L 136-145 mEq/L [facility]: [address] [place] [address] Normal Potassium Serum 3.9 mEq/L 3.5-5.1 mE q/L [facility]: [address] [place] [address] Normal Chloride Level 107 mEq/L 98-107 mEq/ L [facility]: [address] [place] [address] Normal Carbon Dioxide Level 27 mEq/L 21-32 mEq/L [facility]: [address] [place] [address] Low Anion Gap 6 mEq/L 8-16 mEq/L [facility]: [address] [place] [address] Normal Calcium Level 9.2 mg/dL 8.5-10.1 mg/ dL [facility]: [address] [place] [address] Normal AST/SGOT 10 U/L 7-37 U/L [facility]: [address] [place] [address] Normal ALT/SGPT 20 U/L 12-78 U/L [facility]: [address] [place] [address] Normal Alkaline Phosphatase 113 U/L 45-117 U/L [facility]: [address] [place] [address] Low Bilirubin,total 0.1 mg/dL 0.2-1.0 mg /dL [facility]: [address] [place] [address] Normal Total Protein 6.6 gm/dL 6.4-8.2 gm/d L [facility]: 0 [facility] Normal Albumin 3.3 gm/dL 3.2-5.2 gm/dL Drea l [facility]: [address] [place] [address] Low Albumin/globulin Ratio 1.0 1.2-2. 2 [facility]: [address] [place] [address] 08/25/2021 TSH, Serum or Plasma Normal Thyroid Stimulating Hormone 1.320 uIU/mL 0.358-3.740 uIU/mL [facility] nter: [address] [place] [address] 08/25/2021 Vitamin B12, Serum Normal Vitamin B12 Level 893 pg/mL 247-911 pg/mL Final [facility]: [address] [facility] 08/25/2021 Lamotrigine, Serum Low Lamotrigine (Lami ctal) <1.0 ug/mL 2.0- 20.0 ug/mL Final [facility]: [address] [facility] 08/15/2021 Iron + TIBC + Ferritin, Serum Blood venous Low Iron, Total 26 mcg/dL 40-190 mcg/dL Final [facility]: [address] [facility] Blood venous Normal Iron Binding Capacity 38 4 mcg/dL (calc) 250-450 mcg/dL (calc) Final [facility]: [address] [facility] Blood venous Low % Saturation 7 % (calc) 16-45 % (calc) Final [facility]: [address] [facility] Blood venous Low Ferritin 11 NG/mL 16-154 NG/m L Final [facility]: [address] [facility] 08/15/2021 HIV 1/2 Antigen/antibody, 4TH Gen W/rfl,screenin g Blood venous Normal HIV Ag/Ab, 4TH Gen non-reactive non-reactive Final [facility]: [address] [facility] 08/15/2021 Cbc Blood venous High White Blood Cell Count 12.2 thousand/uL 3.8-10.8 thousand/uL Final [facility]: [address] [facility] Blood venous Normal Red Blood Cell Count 4.5 4 million/uL 3.80-5.10 million/uL Final [facility]: [address] [facility] Blood venous Low Hemoglobin 10.6 g/dL 11.7-15. 5 g/dL Final [facility]: [address] [facility] Blood venous Normal Hematocrit 35.5 % 35.0-45.0 % Final [facility]: [address] [facility] Blood venous Low Mcv 78.2 fL 80.0-100.0 fL Fi nal [facility]: [address] [facility] Blood venous Low Mch 23.3 pg 27.0-33.0 pg Fin al [facility]: [address] [facility] Blood venous Low Mchc 29.9 g/dL 32.0-36.0 g/dL Final [facility]: [address] [facility] Blood venous Normal Rdw 14.6 % 11.0-15.0 % Final [facility]: [address] [place] [facility] Blood venous High Platelet Count 536 thous and/uL 140-400 thousand/uL Final [facility]: [address] , [place] Blood venous Normal Mpv 10.9 fL 7.5-12.5 fL Drea l [facility]: [address] [facility] 08/09/2021 Urinalysis, Dipstick Normal Appearance, Urine hazy clear [facility]: [address] [facility] Normal Color, Urine yellow yellow [facility]: [address] [facility] Normal pH,urine 5.0 units 5.0-9.0 units Fin [facility]: [address] [facility] Normal Specific [place] Urine Auto 1.028 1 .002-1.035 [facility]: [address] [facility] Normal Protein, Urine Auto negative mg/dL n egative mg/dL [facility]: [address] [facility] Normal Glucose, Urine (UA) Auto negative mg /dL negative mg/dL [facility]: [address] [facility] Normal Ketone, Urine Auto negative mg/dL ne gative mg/dL [facility]: [address] [facility] Normal Urobilinogen, Urine Auto 0.2 mg/dL 0 .0-2.0 mg/dL [facility]: [address] [facility] Normal Bilirubin, Urine Auto negative negat socrates [facility]: [address] [facility] Normal Nitrite, Urine Auto negative negativ e [facility]: [address] [facility] High Leukocyte Esterase, Urine Auto 1+ negative [facility]: [address] [facility] Normal Blood, Urine Blood negative negative [facility]: [address] [facility] Normal WBC, Urine Auto 2 /hpf 0-3 /hpf [facility]: [address] [facility] Normal RBC, Urine Auto 1 /hpf 0-3 /hpf [facility]: [address] [facility] Normal Bacteria, Urine Auto negative negati ve [facility]: [address] [facility] Normal Squamous Epithelial Cell Ur AU 2 /hp f 0-6 /hpf [facility]: [address] [facility] Normal Mucus, Urine small negative [facility]: [address] [facility] Normal Hyaline Cast, Urine Auto 0 /lpf 0-1 /lpf [facility]: [address] [facility] 08/09/2021 Protein, Total, Urine High Total Protein,random Urine 22.8 mg/dL 0.0-12.0 mg/dL [facility] nter: [address] [facility] 08/09/2021 CMP, Serum or Plasma Normal Glucose, Fastin g 100 mg/dL 70-100 mg/dL [facility]: 83 0 [facility] Normal Blood Urea Nitrogen 7 mg/dL 7-18 mg/ dL [facility]: 0 [facility] Normal Creatinine for GFR 0.64 mg/dL 0.55-1 .30 mg/dL [facility]: [address] [facility] Normal Glomerular Filtration Rate > 60.0 >6 0 [facility]: [address] [facility] Normal Sodium Level 142 mEq/L 136-145 mEq/L [facility]: [address] [facility] Normal Potassium Serum 4.3 mEq/L 3.5-5.1 mE q/L [facility]: [address] [facility] High Chloride Level 109 mEq/L 98-107 mEq/ L [facility]: [address] [facility] Normal Carbon Dioxide Level 27 mEq/L 21-32 mEq/L [facility]: [address] [facility] Low Anion Gap 6 mEq/L 8-16 mEq/L [facility]: [address] [facility] Normal Calcium Level 8.7 mg/dL 8.5-10.1 mg/ dL [facility]: [address] [facility] Normal AST/SGOT 7 U/L 7-37 U/L [facility]: [address] [facility] Normal ALT/SGPT 18 U/L 12-78 U/L [facility]: [address] [facility] High Alkaline Phosphatase 118 U/L 45-117 U/L [facility]: [address] [facility] Low Bilirubin,total 0.1 mg/dL 0.2-1.0 mg /dL [facility]: 0 [facility] Low Total Protein 6.1 gm/dL 6.4-8.2 gm/d L [facility]: [address] [place] [address] Low Albumin 3.1 gm/dL 3.2-5.2 gm/dL [facility]: [address] [facility] Low Albumin/globulin Ratio 1.0 1.2-2. 2 [facility]: [address] [facility] 08/09/2021 C3 (Complement), Serum or Plasma Normal Complement C3 167 mg/dL 90-180 mg/dL [facility] nter: [address] [facility] 08/09/2021 C4 (Complement), Serum or Plasma High Com plement C4 44 mg/dL 10-40 mg/dL [facility]: [address] 0 [facility] 08/09/2021 C Reactive Protein, QN, Serum or Plasma High C Reactive Protein Quantitativ 2.21 mg/dL 0.00-0.30 mg/dL [facility]: [address] [facility] 08/09/2021 CBC W/ Auto Diff High White Blood Count 10.6 10 4.0-10.0 10 [facility]: [address] [facility] Low Red Blood Count 3.87 10 4.00-5.40 10 [facility]: [address] [facility] Low Hemoglobin 9.1 g/dL 12.0-15.5 g/dL F inal [facility]: [address] [facility] Low Hematocrit 30.2 % 36.0-47.0 % [facility]: [address] [facility] Low Mean Corpuscular Volume 78.0 fL 80.0 -96.0 fL [facility]: [address] [place] [address] Low Mean Corpuscular Hemoglobin 23.5 pg 27.0-33.0 pg Final [facility]: [address] [facility] Low Mean Corpuscular HGB Conc 30.1 g/dL 32.0-36.5 g/dL [facility]: [address] [place] [address] High Red Cell Distribution Width 15.4 % 1 1.5-14.5 % [facility]: [address] [place] [address] Normal Platelet Count, Automated 425 10 150 -450 10 [facility]: [address] [facility] Normal Neutrophils % 63.9 % 36.0-66.0 % [facility]: [address] [facility] Normal Lymph % 25.7 % 24.0-44.0 % [facility]: [address] [facility] Normal [place] % 5.5 % 2.0-8.0 % [facility]: [address] [facility] High Eos % 3.8 % 0.0-3.0 % [facility]: [address] [facility] Normal Baso % 0.5 % 0.0-1.0 % [facility]: [address] [facility] Normal Immature Granulocyte % 0.6 % 0-3.0 % [facility]: 0 [facility] Normal Nucleated Red Blood Cell % 0.0 % 0- 0 % [facility]: 0 [facility] Normal Neutrophils # 6.8 10 1.5-8.[address] [facility]: [address] [facility] Normal Lymph # 2.7 10 1.5-5.0 10 [facility]: [address] [facility] Normal [place] # 0.6 10 0.0-0.8 10 [facility]: [address] [facility] Normal Eos # 0.4 10 0.0-0.5 10 [facility]: [address] [facility] Normal Baso # 0.1 10 0.0-0.2 10 [facility]: 0 [facility] 08/09/2021 ESR (Erythrocyte Sedimentation Rate), Blood Hig h Erythrocyte Sedimentation Rate 59 mm/HR 0-20 mm/HR [facility]: [address] [place] [address] 08/07/2021 CBC W/ Auto Diff Normal White Blood Count 9.2 10 4.0-10.0 10 [facility]: [address] [place] [address] Normal Red Blood Count 4.47 10 4.00-5.40 10 [facility]: [address] [place] [address] Low Hemoglobin 10.6 g/dL 12.0-15.5 g/dL [facility]: [address] [place] [address] Low Hematocrit 35.0 % 36.0-47.0 % [facility]: [address] [place] [address] Low Mean Corpuscular Volume 78.3 fL 80.0 -96.0 fL [facility]: [address] [place] [address] Low Mean Corpuscular Hemoglobin 23.7 pg 27.0-33.0 pg [facility]: [address] [place] [address] Low Mean Corpuscular HGB Conc 30.3 g/dL 32.0-36.5 g/dL [facility]: [address] [place] [address] High Red Cell Distribution Width 15.3 % 1 1.5-14.5 % [facility]: [address] [place] [address] Normal Platelet Count, Automated 362 10 150 -450 10 [facility]: 0 [facility] Normal Neutrophils % 64.3 % 36.0-66.0 % Fin [facility]: 0 [facility] Normal Lymph % 25.2 % 24.0-44.0 % [facility]: [address] [facility] Normal [place] % 6.0 % 2.0-8.0 % [facility]: [address] [facility] High Eos % 3.7 % 0.0-3.0 % [facility]: [address] [facility] Normal Baso % 0.5 % 0.0-1.0 % [facility]: [address] [facility] Normal Immature Granulocyte % 0.3 % 0-3.0 % [facility]: [address] [facility] Normal Nucleated Red Blood Cell % 0.0 % 0- 0 % [facility]: [address] [facility] Normal Neutrophils # 5.9 10 1.5-8.[address] [facility]: [address] [facility] Normal Lymph # 2.3 10 1.5-5.0 10 [facility]: [address] [facility] Normal [place] # 0.6 10 0.0-0.8 10 [facility]: [address] [facility] Normal Eos # 0.3 10 0.0-0.5 10 [facility]: [address] [facility] Normal Baso # 0.1 10 0.0-0.2 10 [facility]: [address] [facility] 08/07/2021 BMP, Serum or Plasma Normal Glucose, Fastin g 92 mg/dL 70-100 mg/dL [facility]: 83 0 [facility] Normal Blood Urea Nitrogen 11 mg/dL 7-18 mg /dL [facility]: 0 [facility] Normal Creatinine for GFR 0.80 mg/dL 0.55-1 .30 mg/dL [facility]: [address] [facility] Normal Glomerular Filtration Rate > 60.0 >6 0 [facility]: [address] [facility] Normal Sodium Level 144 mEq/L 136-145 mEq/L [facility]: [address] [place] [address] Normal Potassium Serum 4.0 mEq/L 3.5-5.1 mE q/L [facility]: [address] [place] [address] High Chloride Level 113 mEq/L 98-107 mEq/ L [facility]: [address] [place] [address] Normal Carbon Dioxide Level 24 mEq/L 21-32 mEq/L [facility]: [address] [place] [address] Low Anion Gap 7 mEq/L 8-16 mEq/L [facility]: [address] [place] [address] Normal Calcium Level 8.8 mg/dL 8.5-10.1 mg/ dL [facility]: [address] [place] [address] 08/07/2021 Choriogonadotropin, Quant, Serum or Plasma Norm al HCG, Serum Quantitative < 1.0 mIU/mL [facility] Center: [address] [place] [address] 08/07/2021 Type + Screen, Serum Normal Blood Type O posit socrates [facility]: [address] [place] [address] Normal Ab Screen (Indirect Colin)vis negat socrates [facility]: [address] [place] [address] 08/07/2021 [place] ENDOCERVIX No observation recorded. [facility]: [address] [place] [address] 08/06/2021 CBC W/ Auto Diff Results Final [facility]: [address] [place] [address] Wbc 9.5 10^3/uL 4.2 - 11.0 10^3/uL [facility]: [address] [place] [address] Rbc 3.73 10^6/uL 4.20 - 5.40 10^6/u L [facility]: [address] [place] [address] Hemoglobin 9.0 g/dL 12.0 - 16.0 g/dL [facility]: [address] [place] [address] Hematocrit 28.6 % 37.0 - 47.0 % [facility]: [address] [place] [address] Mcv 76.7 fL 81.0 - 101 fL Ca [facility] Hospital: [address], [place] Low Mch 24.1 pg 27.0 - 34.0 pg C arthage [facility] Hospital: [address] [place] [address] Mchc 31.5 g/dL 31.0 - 36.0 g/dL [facility] Hospital: [address] [place] [address] Rdw 15.0 % 11.5 - 14.5 % [facility] Hospital: [address] [place] [address] Platelets 367 10^3/uL 150 - 450 10^3 /uL [facility] Hospital: [address] [place] [address] Mpv 9.6 fL 7.4 - 10.4 fL Car [facility] Hospital: [address] [place] [address] Neut 64.6 % 37.0 - 80.0 % Car [facility] Hospital: [address] [place] [address] Lymph 26.4 % 25.0 - 40.0 % Ca [facility] Hospital: [address] [place] [address] [place] 5.1 % 3.0 - 8.0 % [facility]: [address] [place] [address] Eos 3.2 % 0.0 - 7.0 % [facility]: [address] [place] [address] Baso 0.4 % 0.0 - 2.5 % [facility]: [address] [place] [address] %Ig 0.3 % 0.0 - 0.0 % [facility]: [address] [place] [address] %Nrbc 0.0 % 0.0 - 0.0 % [facility] Hospital: [address] [place] [address] #Neut 6.14 10^3/uL 2.00 - 6.90 10^3/ uL [facility] Hospital: [address] [place] [address] #Lymph 2.51 10^3/uL 0.60 - 3.40 10^3 /uL [facility] Hospital: [address] [place] [address] #[place] 0.48 10^3/uL 0.00 - 0.90 10^3/ uL [facility] Hospital: [address] [place] [address] #Eos 0.30 10^3/uL 0.00 - 0.70 10^3/u L [facility] Hospital: [address] [place] [address] #Baso 0.04 10^3/uL 0.00 - 0.20 10^3/ uL [facility] Hospital: [address] [place] [address] #Ig 0.03 10^3/uL 0.00 - 0.10 10^3/u L [facility] Hospital: [address] [place] [address] #Nrbc 0.00 10^3/uL 0.00 - 0.00 10^3/ uL [facility] Hospital: [address] [place] [address] Manual Diff not indicated [facility] Hospital: [address] [place] [address] RBC Morph not indicated [facility] Hospital: [address] [place] [address] 08/06/2021 CMP, Serum or Plasma Results Final [facility] Hospital: [address] [place] [address] Sodium 141 mEq/L 134 - 153 mEq/L [facility] Hospital: [address] [place] [address] Low Potassium 3.5 mEq/L 3.6 - 5.0 mEq/L [facility] Hospital: [address] [place] [address] High Chloride 108 mEq/L 98 - 107 mEq/L [facility] Hospital: [address] [place] [address] Co2 25 mEq/L 22 - 30 mEq/L [facility] Hospital: [address] [place] [address] High Glucose 103 mg/dL 70 - 99 mg/dL [facility] Hospital: [address] [place] [address] Bun 7 mg/dL 7 - 21 mg/dL [facility] Hospital: [address] [place] [address] Creatinine 0.8 mg/dL 0.7 - 1.5 mg/dL [facility] Hospital: [address] [place] [address] BUN/creat 9 8 - 27 [facility] Hospital: [address] [place] [address] Total Protein 6.3 g/dL 6.3 - 8.2 g/d L [facility] Hospital: [address] [place] [address] Albumin 4.0 g/dL 3.9 - 5.0 g/dL [facility] Hospital: [address] [place] [address] Low Globulin 2.3 gm/dL 2.4 - 3.2 gm/dL [facility] Hospital: [address] [place] [address] A/g Ratio 1.7 0.8 - 2.0 Ca [facility] Hospital: [address] [place] [address] Calcium 9.1 mg/dL 8.4 - 10.2 mg/dL [facility]: [address] [place] [address] Total Bili <0.7 mg/dL 0.2 - 1.3 mg/d L [facility] Hospital: [address] [place] [address] Alkaline Phos 114 U/L 38 - 126 U/L [facility] Hospital: [address] [place] [address] SGOT/AST 11 U/L 5 - 40 U/L Ca [facility] Hospital: [address] [place] [address] SGPT/ALT 10 U/L 7 - 56 U/L Ca [facility] Hospital: [address] [place] [address] Anion Gap 8.0 mmol/L 8.0 - 16.0 mmol /L [facility] Hospital: [address] [place] [address] Age 31 yrs [facility] Hospital: [address] [place] [address] Non-aa GFR >60 mL/min [facility] Hospital: [address] [place] [address] Afr Amer GFR >60 mL/min [facility] Hospital: [address] [place] [address] 07/31/2021 UA W/ Reflex to Culture Normal Appearance, Urine Rfx clear clear [facility]: 83 0 [facility] Normal Color, Urine Rfx colorless yellow Fi nal [facility]: 830 [facility] Normal pH,urine Rfx 7.0 units 5.0-9.0 units [facility]: 830 [facility] Normal Specific Warren Ur Auto Rfx 1.002 1.002-1.035 [facility]: 830 [facility] Normal Protein, Urine Auto Rfx negative mg/ dL negative mg/dL [facility]: 830 [facility] Normal Glucose, Urine (UA) Auto Rfx n egative mg/dL negative mg/dL [facility]: 830 [facility] Normal Ketone, Urine Auto Rfx negative mg/d L negative mg/dL [facility]: 830 [facility] Normal Urobilinogen, Urine Auto Rfx 0.2 mg/ dL 0.0-2.0 mg/dL [facility]: 830 [facility] Normal Bilirubin, Urine Auto Rfx negative n egative [facility]: 830 [facility] Normal Nitrite, Urine Auto Rfx negative neg ative [facility]: 830 [facility] Normal Leukocyte Esterase Ur Auto Rfx negat socrates negative [facility]: 830 [facility] High Blood, Urine Blood Rfx 2+ negati ve [facility]: 830 [facility] Normal WBC, Urine Auto Rfx 0 /hpf 0-3 /hpf [facility]: 830 [facility] Normal RBC, Urine Auto Rfx 1 /hpf 0-3 /hpf [facility]: 830 [facility] High Bacteria, Urine Auto Rfx 1+ nega tive [facility]: 830 [facility] Normal Squam Epithelial Cell Ur Aurfx 2 /hp f 0-6 /hpf [facility]: 830 [facility] Normal Hyaline Cast, Urine Auto Rfx 0 /lpf 0-1 /lpf [facility]: 830 [facility] 07/31/2021 CBC W/ Auto Diff Normal White Blood Count 8.4 10 4.0-10.0 10 [facility]: 830 [facility] Normal Red Blood Count 4.49 10 4.00-5.40 10 [facility]: 830 [facility] Low Hemoglobin 10.7 g/dL 12.0-15.5 g/dL [facility]: 830 [facility] Low Hematocrit 34.9 % 36.0-47.0 % [facility]: 830 [facility] Low Mean Corpuscular Volume 77.7 fL 80.0 -96.0 fL [facility]: 830 [facility] Low Mean Corpuscular Hemoglobin 23.8 pg 27.0-33.0 pg [facility]: 0 [facility] Low Mean Corpuscular HGB Conc 30.7 g/dL 32.0-36.5 g/dL [facility]: 830 [facility] High Red Cell Distribution Width 15.4 % 1 1.5-14.5 % [facility]: 830 [facility] Normal Platelet Count, Automated 303 10 150 -450 10 [facility]: 830 [facility] High Neutrophils % 66.6 % 36.0-66.0 % [facility]: 830 [facility] Low Lymph % 22.6 % 24.0-44.0 % Final [facility]: 830 [facility] Normal [place] % 5.5 % 2.0-8.0 % Final [facility]: [address] [place] [address] High Eos % 4.6 % 0.0-3.0 % [facility]: 0 [facility] Normal Baso % 0.5 % 0.0-1.0 % Final [facility]: 830 [facility] Normal Immature Granulocyte % 0.2 % 0-3.0 % [facility]: [address] [place] [address] Normal Nucleated Red Blood Cell % 0.0 % 0- 0 % [facility]: 0 [facility] Normal Neutrophils # 5.6 10 1.5-8.5 10 [facility]: 830 [facility] Normal Lymph # 1.9 10 1.5-5.0 10 Final [facility]: 830 [facility] Normal [place] # 0.5 10 0.0-0.8 10 [facility]: 0 [facility] Normal Eos # 0.4 10 0.0-0.5 10 [facility]: 0 [facility] Normal Baso # 0.0 10 0.0-0.2 10 [facility]: [address] [place] [address] 07/31/2021 Istat B-HCG Normal Istat B-HCG < 5.0 F [facility]: 830 [facility] 07/31/2021 Istat Chem8+ Panel Low Istat HCT 35.0 % 38. 0-51.0 % [facility]: [address] [place] [address] High Istat Glucose 123 mg/dL 70-105 mg/dL [facility]: [address] [place] [address] Normal Istat Sodium 138 mEq/L 136-145 mEq/L [facility]: [address] [place] [address] Normal Istat Potassium 4.3 mEq/L 3.5-5.1 mE q/L [facility]: [address] [place] [address] Normal Istat Ca++ 4.6 mg/dL 4.5-5.3 mg/dL [facility]: [address] [place] [address] Normal Istat Chloride 105 mEq/L 98-109 mEq/ L [facility]: [address] [place] [address] Normal Istat CO2 24.0 mm/L 23.0-27.0 mm/L [facility]: [address] [place] [address] Normal Istat BUN 14 mg/dL 8-26 mg/dL [facility]: [address] [place] [address] Normal Istat Creatinine 0.7 mg/dL 0.6-1.3 m g/dL [facility]: [address] [place] [address] 07/31/2021 [place] ENDOCERVIX No observation recorded. [facility]: [address] [place] [address] 07/31/2021 PT/INR High Prothrombin Time 23.2 secon ds 12.7-14.5 seconds [facility]: [address] [place] [address] Normal Inr 2.01 [facility]: [address] [place] [address] 07/31/2021 Partial Thromboplastin Time High Partial Thromboplastin Time 63.9 seconds 25.9-37.0 seconds [facility] nter: [address] [place] [address] 07/31/2021 Lactic Acid, Serum or Plasma Normal Lactic Acid Sepsis Protocol 1.4 mmol/L 0.4-2.0 mmol/L [facility]: [address] [place] [address] 07/31/2021 Hepatic Function Panel, Serum Normal AST/SG OT 17 U/L 7-37 U/L [facility]: 0 [facility] Normal ALT/SGPT 24 U/L 12-78 U/L [facility]: [address] [place] [address] Normal Alkaline Phosphatase 117 U/L 45-117 U/L [facility]: [address] [place] [address] Low Bilirubin,total 0.1 mg/dL 0.2-1.0 mg /dL [facility]: [address] [place] [address] Normal Bilirubin,direct < 0.1 mg/dL 0.0-0.2 mg/dL [facility]: [address] [place] [address] Normal Total Protein 6.4 gm/dL 6.4-8.2 gm/d L [facility]: [address] [place] [address] Normal Albumin 3.2 gm/dL 3.2-5.2 gm/dL Drea l [facility]: [address] [place] [address] Low Albumin/globulin Ratio 1.0 1.2-2. 2 [facility]: 0 [facility] 07/31/2021 Amylase, Serum or Plasma Normal Amylase 40 U/L 25-115 U/L [facility]: [address] [place] [address] 07/31/2021 Lipase, Serum or Plasma Normal Lipase 91 U/L 7 3-393 U/L [facility]: 0 [facility] 07/31/2021 Chlamydia, GC & Trich Amp Normal Ch lamydia DNA Amplification negative negative [facility] nter: 0 [facility] Normal GC DNA Amplification negative negati ve [facility]: 0 [facility] Normal Trichomonas Vaginalis (Amp) not dete cted negative [facility]: 0 [facility] 07/31/2021 Influenza A/B RSV Covid Amp Normal Influenza a Amplification negative negative [facility] nter: 830 [facility] Normal Influenza B Amplification negative n egative [facility]: 830 [facility] Normal RSV Amplification negative negative [facility]: 830 [facility] Normal Sars Covid-19 Amplification negative negative [facility]: 830 [facility] 07/31/2021 TSH, Serum or Plasma Normal Thyroid Stimulating Hormone 0.444 uIU/mL 0.358-3.740 uIU/mL [facility] nter: 830 [facility] 07/31/2021 T4, Free, Serum Low Free T4 0.66 NG/dL 0.76 -1.46 NG/dL [facility]: 0 [facility] 07/31/2021 Type + Screen, Serum Normal Blood Type O posit socrates [facility]: 830 [facility] Normal Ab Screen (Indirect Colin)vis negat socrates [facility]: 830 [facility] 07/31/2021 Cardiovascular Assessment Panel, Serum Normal CPK Creatine Phosphokinase 67 U/L 26-192 U/L [facility] Center: 0 [facility] Normal CK-mb Value Mass < 1.0 NG/mL <3.6 NG /mL [facility]: 0 [facility] Normal mb/CK Relative Index 1.49 < or =4 [facility]: 0 [facility] Normal Troponin I < 0.02 NG/mL < 0.10 NG/mL [facility]: 830 [facility] 07/31/2021 Ethanol, Blood Normal Ethyl Alcohol (Ethano l) < 0.003 % 0.000- 0.010 % [facility]: 83 0 [facility] 07/31/2021 Salicylate, Quantitative, Serum Low Salicylate Level < 1.7 mg/dL 5.0-30.0 mg/dL [facility] nter: 830 [facility] 07/31/2021 Acetaminophen, Serum Low Acetaminophen L evel < 2.0 ug/mL 10.0- 30.0 ug/mL [facility]: 83 0 [facility] 07/31/2021 CBC W/ Auto Diff Normal White Blood Count 8.5 10 4.0-10.0 10 [facility]: 830 [facility] Normal Red Blood Count 4.04 10 4.00-5.40 10 [facility]: 830 [facility] Low Hemoglobin 9.7 g/dL 12.0-15.5 g/dL F inal [facility]: 830 [facility] Low Hematocrit 31.4 % 36.0-47.0 % [facility]: 830 [facility] Low Mean Corpuscular Volume 77.7 fL 80.0 -96.0 fL [facility]: 830 [facility] Low Mean Corpuscular Hemoglobin 24.0 pg 27.0-33.0 pg [facility]: 830 [facility] Low Mean Corpuscular HGB Conc 30.9 g/dL 32.0-36.5 g/dL [facility]: 830 [facility] High Red Cell Distribution Width 15.3 % 1 1.5-14.5 % [facility]: 830 [facility] Normal Platelet Count, Automated 302 10 150 -450 10 [facility]: 830 [facility] Normal Neutrophils % 59.7 % 36.0-66.0 % [facility]: 830 [facility] Normal Lymph % 28.8 % 24.0-44.0 % [facility]: 830 [facility] Normal [place] % 5.9 % 2.0-8.0 % [facility]: 830 [facility] High Eos % 4.7 % 0.0-3.0 % [facility]: 830 [facility] Normal Baso % 0.5 % 0.0-1.0 % [facility]: 830 [facility] Normal Immature Granulocyte % 0.4 % 0-3.0 % [facility]: 830 [facility] Normal Nucleated Red Blood Cell % 0.0 % 0- 0 % [facility]: 830 [facility] Normal Neutrophils # 5.1 10 1.5-8.5 10 [facility]: 830 [facility] Normal Lymph # 2.4 10 1.5-5.0 10 [facility]: 830 [facility] Normal [place] # 0.5 10 0.0-0.8 10 [facility]: 830 [facility] Normal Eos # 0.4 10 0.0-0.5 10 [facility]: 830 [facility] Normal Baso # 0.0 10 0.0-0.2 10 [facility]: 830 [facility] 07/31/2021 Drug Screen, Urine Normal Amphetamines Leve l Urine negative negative [facility]: 83 0 [facility] Normal Barbiturates Urine negative negative [facility]: 830 [facility] Normal Benzodiazepines Urine negative negat socrates [facility]: 830 [facility] Normal Cannabinoids Urine negative negative [facility]: 830 [facility] Normal Cocaine Metabolite Urine negative ne gative [facility]: 830 [facility] Normal Methadone Urine negative negative Fi [facility]: 830 [facility] High Opiates Urine positive negative [facility]: 830 [facility] Normal Phencyclidine Urine negative negativ e [facility]: 830 [facility] 07/29/2021 CT + NG RNA, PCR, Unspecified Specimen Urine Normal Chlamydia Trachomatis RNA, Tma, Urogenital not detected not detected Final Locationary [facility]: [address] Urine Normal Neisseria Gonorrhoeae RNA, Tma, Urogenital not detected not detected Final [facility]: [address], [place] Urine Comment Final [facility]: [address], [place] 07/29/2021 Test, Urine Urine clean catch Hcg n egative [facility] Medical: [address], [place] 07/25/2021 Thrombosis Prof ([id number]) Normal Homocyste ine 6.5 umol/L . umol/L [facility]: 83 0 [facility] Normal Factor VIII Activity 91 % . % F inal [facility]: 8[address] [facility] Normal Antithrombin Activity 127 % . % [facility]: 830 [facility] Normal Prt C Activity(chromogenic) 160 % . % [facility]: 830 [facility] Normal Protein S Antigen, Free 61 % . % [facility]: 830 [facility] Normal Aptt 27.3 sec . sec [facility]: 830 [facility] Normal APTT 1:1 Facility Environmental Technician tnp sec . sec [facility]: 830 [facility] Normal APTT 1:1 Saline tnp sec . sec [facility]: 830 [facility] Normal Lac Interpretation . Fin [facility]: 830 [facility] Normal Act Prt C Resist W/fv Defic 2.2 rati o . ratio [facility]: 830 [facility] High Drvvt Screen Seconds 72.2 sec . sec [facility]: 830 [facility] Normal Drvvt Confirm Seconds 45.1 sec . sec [facility]: 830 [facility] High Drvvt Ratio 1.4 ratio . ratio [facility]: 830 [facility] Normal Hexagonal Phospholipid Neutal 7 sec . sec [facility]: 830 [facility] Normal Anticardiolipin Ab, IgG <10 gpl . gp l [facility]: 830 [facility] Normal Anticardiolipin Ab, IgM 19 mpl . mpl [facility]: 830 [facility] Normal Beta-2 Glycoprotein I, IgG <10 sgu . sgu [facility]: 830 [facility] Normal Beta-2 Glycoprotein I, IgM <10 smu . smu [facility]: 830 [facility] Normal Beta-2 Glycoprotein I, IgA <10 braden . braden [facility]: 830 [facility] Normal Factor II Gene Mutation Result tnp . [facility]: 830 [facility] Normal Factor II Gene Interpretation tnp . [facility]: 830 [facility] Normal Factor II Gene Methodology . [facility]: 830 [facility] Normal Factor II Gene Comments . [facility]: 8[address] [facility] 07/25/2021 Thrombosis Prof ([id number]) Normal Homocyste ine 6.5 umol/L . umol/L [facility]: 83 0 [facility] Normal Factor VIII Activity 91 % . % F inal [facility]: 830 [facility] Normal Antithrombin Activity 127 % . % [facility]: 830 [facility] Normal Prt C Activity(chromogenic) 160 % . % [facility]: 830 [facility] Normal Protein S Antigen, Free 61 % . % [facility]: 830 [facility] Normal Aptt 27.3 sec . sec [facility]: 8[address] [facility] Normal APTT 1:1 Facility Environmental Technician tnp sec . sec [facility]: 830 [facility] Normal APTT 1:1 Saline tnp sec . sec [facility]: 830 [facility] Normal Lac Interpretation . Fin [facility]: 8[address] [facility] Normal Act Prt C Resist W/fv Defic 2.2 rati o . ratio [facility]: 830 [facility] High Drvvt Screen Seconds 72.2 sec . sec [facility]: 830 [facility] Normal Drvvt Confirm Seconds 45.1 sec . sec [facility]: 830 [facility] High Drvvt Ratio 1.4 ratio . ratio [facility]: 830 [facility] Normal Hexagonal Phospholipid Neutal 7 sec . sec [facility]: 830 [facility] Normal Anticardiolipin Ab, IgG <10 gpl . gp l [facility]: 830 [facility] Normal Anticardiolipin Ab, IgM 19 mpl . mpl [facility]: 830 [facility] Normal Beta-2 Glycoprotein I, IgG <10 sgu . sgu [facility]: 830 [facility] Normal Beta-2 Glycoprotein I, IgM <10 smu . smu [facility]: 830 [facility] Normal Beta-2 Glycoprotein I, IgA <10 braden . braden [facility]: 830 [facility] Normal Factor II Gene Mutation Result tnp . [facility]: 830 [facility] Normal Factor II Gene Interpretation tnp . [facility]: 830 [facility] Normal Factor II Gene Methodology . [facility]: 830 [facility] Normal Factor II Gene Comments . [facility]: 830 [facility] 07/08/2021 Lactic Acid Level, Lactate Normal L actic Acid Level, Lactate 1.6 mmol/L 0.4-2.0 mmol/L [facility] nter: 830 [facility] 07/08/2021 UA W/ Reflex to Culture Normal Appearance, Urine Rfx hazy clear [facility]: 83 0 [facility] Normal Color, Urine Rfx straw yellow [facility]: 830 [facility] Normal pH,urine Rfx 8.0 units 5.0-9.0 units [facility]: 830 [facility] Normal Specific [place] Ur Auto Rfx 1.014 1.002-1.035 [facility]: 830 [facility] Normal Protein, Urine Auto Rfx negative mg/ dL negative mg/dL [facility]: 830 [facility] Normal Glucose, Urine (UA) Auto Rfx n egative mg/dL negative mg/dL [facility]: 830 [facility] Normal Ketone, Urine Auto Rfx negative mg/d L negative mg/dL [facility]: 830 [facility] Normal Urobilinogen, Urine Auto Rfx 0.2 mg/ dL 0.0-2.0 mg/dL [facility]: 830 [facility] Normal Bilirubin, Urine Auto Rfx negative n egative [facility]: 830 [facility] Normal Nitrite, Urine Auto Rfx negative neg ative [facility]: 830 [facility] Normal Leukocyte Esterase Ur Auto Rfx negat socrates negative [facility]: 830 [facility] High Blood, Urine Blood Rfx 1+ negati ve [facility]: 830 [facility] Normal WBC, Urine Auto Rfx 2 /hpf 0-3 /hpf [facility]: 830 [facility] Normal RBC, Urine Auto Rfx 2 /hpf 0-3 /hpf [facility]: 830 [facility] Normal Bacteria, Urine Auto Rfx negative ne gative [facility]: 830 [facility] Normal Squam Epithelial Cell Ur Aurfx 5 /hp f 0-6 /hpf [facility]: 830 [facility] Normal Hyaline Cast, Urine Auto Rfx 0 /lpf 0-1 /lpf [facility]: 830 [facility] 07/08/2021 Cbc High White Blood Count 18.9 10 4.0-10 .0 10 [facility]: 830 [facility] Low Red Blood Count 3.72 10 4.00-5.40 10 [facility]: 830 [facility] Low Hemoglobin 9.2 g/dL 12.0-15.5 g/dL F inal [facility]: 0 [facility] Low Hematocrit 29.3 % 36.0-47.0 % [facility]: [address] [place] [address] Low Mean Corpuscular Volume 78.8 fL 80.0 -96.0 fL [facility]: [address] [place] [address] Low Mean Corpuscular Hemoglobin 24.7 pg 27.0-33.0 pg [facility]: [address] [place] [address] Low Mean Corpuscular HGB Conc 31.4 g/dL 32.0-36.5 g/dL [facility]: [address] [place] [address] High Red Cell Distribution Width 15.6 % 1 1.5-14.5 % [facility]: [address] [place] [address] Normal Platelet Count, Automated 391 10 150 -450 10 [facility]: [address] [place] [address] Normal Nucleated Red Blood Cell % 0.0 % 0- 0 % [facility]: [address] [place] [address] 07/08/2021 BMP, Serum or Plasma High Glucose, Fastin g 115 mg/dL 70-100 mg/dL [facility]: 83 0 [facility] Normal Blood Urea Nitrogen 10 mg/dL 7-18 mg /dL [facility]: [address] [place] [address] Normal Creatinine for GFR 0.67 mg/dL 0.55-1 .30 mg/dL [facility]: [address] [place] [address] Normal Glomerular Filtration Rate > 60.0 >6 0 [facility]: 0 [facility] Normal Sodium Level 142 mEq/L 136-145 mEq/L [facility]: 0 [facility] D Potassium Serum 4.8 mEq/L 3.5-5.1 mE q/L [facility]: [address] [place] [address] High Chloride Level 109 mEq/L 98-107 mEq/ L [facility]: [address] [place] [address] Normal Carbon Dioxide Level 25 mEq/L 21-32 mEq/L [facility]: [address] [place] [address] Normal Anion Gap 8 mEq/L 8-16 mEq/L [facility]: [address] [place] [address] Normal Calcium Level 8.8 mg/dL 8.5-10.1 mg/ dL [facility]: [address] [place] [address] 07/08/2021 Hepatic Function Panel, Serum Normal AST/SG OT 15 U/L 7-37 U/L [facility]: [address] [place] [address] Normal ALT/SGPT 41 U/L 12-78 U/L [facility]: [address] [place] [address] Normal Alkaline Phosphatase 104 U/L 45-117 U/L [facility]: [address] [place] [address] Low Bilirubin,total 0.1 mg/dL 0.2-1.0 mg /dL [facility]: [address] [place] [address] Normal Bilirubin,direct < 0.1 mg/dL 0.0-0.2 mg/dL [facility]: [address] [place] [address] Low Total Protein 6.1 gm/dL 6.4-8.2 gm/d L [facility]: [address] [place] [address] Low Albumin 3.0 gm/dL 3.2-5.2 gm/dL [facility]: [address] [place] [address] Low Albumin/globulin Ratio 1.0 1.2-2. 2 [facility]: [address] [place] [address] 07/07/2021 Istat ABG High Istat pH 7.473 units 7.350-7. 450 units [facility]: [address] [place] [address] Normal Istat pCO2 38.4 mmHg 35.0-45.0 mmHg [facility]: [address] [place] [address] Low Istat pO2 70.0 mmHg 80-105 mmHg [facility]: [address] [place] [address] High Istat TCO2 29.0 mmol/L 23.0-27.0 mmo l/L [facility]: [address] [place] [address] High Istat HCO3 28.1 mmol/L 22.0-26.0 mmo l/L [facility]: [address] [place] [address] High Istat Base Excess 5.0 mmol/L -2.0-3. 0 mmol/L [facility]: [address] [place] [address] Normal Istat So2 95 % 95-98 % [facility]: [address] [place] [address] 07/07/2021 CBC W/ Auto Diff High White Blood Count 14.1 10 4.0-10.0 10 [facility]: [address] [place] [address] Normal Red Blood Count 4.23 10 4.00-5.40 10 [facility]: [address] [place] [address] Low Hemoglobin 10.3 g/dL 12.0-15.5 g/dL [facility]: [address] [place] [address] Low Hematocrit 32.7 % 36.0-47.0 % [facility]: [address] [place] [address] Low Mean Corpuscular Volume 77.3 fL 80.0 -96.0 fL [facility]: [address] [place] [address] Low Mean Corpuscular Hemoglobin 24.3 pg 27.0-33.0 pg [facility]: [address] [place] [address] Low Mean Corpuscular HGB Conc 31.5 g/dL 32.0-36.5 g/dL [facility]: [address] [place] [address] High Red Cell Distribution Width 15.2 % 1 1.5-14.5 % [facility]: [address] [place] [address] Normal Platelet Count, Automated 374 10 150 -450 10 [facility]: [address] [place] [address] Normal Nucleated Red Blood Cell % 0.0 % 0- 0 % [facility]: [address] [place] [address] 07/07/2021 Differential Panel, Blood Normal Neutrophil s 56 % 28-66 % [facility]: 830 [facility] Normal Lymphocytes 30 % 16-44 % Final [facility]: 830 [facility] High Monocytes 7 % 0-5 % Final [facility]: 830 [facility] High Eosinophils 5 % 0-3 % Final [facility]: 830 [facility] Normal Basophils 1 % 0-1 % Final [facility]: 830 [facility] Normal Atypical Lymph 1 % 0-5 % [facility]: 830 [facility] Normal Hypochromasia 1+ Final [facility]: 830 [facility] Normal Anisocytosis 1+ Final [facility]: 830 [facility] Normal Microcytosis 1+ Final [facility]: 830 [facility] Normal Ovalocytes 1+ Final [facility]: 830 [facility] Normal Smudge Cells 1+ Final [facility]: 830 [facility] Normal Platelet Clumps small amt Fin [facility]: 830 [facility] 07/07/2021 Platelet Count, Estimate, Blood Normal Platelet Estimate normal normal [facility] nter: 830 [facility] 07/07/2021 Influenza A/B RSV Covid Amp Normal Influenza a Amplification negative negative [facility] nter: 830 [facility] Normal Influenza B Amplification negative n egative [facility]: 830 [facility] Normal RSV Amplification negative negative [facility]: 830 [facility] Normal Sars Covid-19 Amplification negative negative [facility]: 830 [facility] 07/07/2021 Cardiovascular Assessment Panel, Serum Normal CPK Creatine Phosphokinase 45 U/L 26-192 U/L [facility]: 830 [facility] Normal CK-mb Value Mass < 1.0 NG/mL <3.6 NG /mL [facility]: 830 [facility] Normal mb/CK Relative Index 2.22 < or =4 [facility]: 830 [facility] Normal Troponin I < 0.02 NG/mL < 0.10 NG/mL [facility]: 830 [facility] 07/07/2021 Hepatic Function Panel, Serum Normal AST/SG OT 15 U/L 7-37 U/L [facility]: 0 [facility] Normal ALT/SGPT 30 U/L 12-78 U/L [facility]: 830 [facility] Normal Alkaline Phosphatase 111 U/L 45-117 U/L [facility]: 0 [facility] Low Bilirubin,total 0.1 mg/dL 0.2-1.0 mg /dL [facility]: 0 [facility] Normal Bilirubin,direct < 0.1 mg/dL 0.0-0.2 mg/dL [facility]: 0 [facility] Normal Total Protein 6.6 gm/dL 6.4-8.2 gm/d L [facility]: 0 [facility] Normal Albumin 3.2 gm/dL 3.2-5.2 gm/dL Drea l [facility]: 0 [facility] Low Albumin/globulin Ratio 0.9 1.2-2. 2 [facility]: 830 [facility] 07/07/2021 BMP, Serum or Plasma Normal Glucose, Fastin g 97 mg/dL 70-100 mg/dL [facility]: 83 0 [facility] Normal Blood Urea Nitrogen 9 mg/dL 7-18 mg/ dL [facility]: 0 [facility] Normal Creatinine for GFR 0.68 mg/dL 0.55-1 .30 mg/dL [facility]: 0 [facility] Normal Glomerular Filtration Rate > 60.0 >6 0 [facility]: 830 [facility] Normal Sodium Level 141 mEq/L 136-145 mEq/L [facility]: 0 [facility] Low Potassium Serum 3.4 mEq/L 3.5-5.1 mE q/L [facility]: 830 [facility] Normal Chloride Level 105 mEq/L 98-107 mEq/ L [facility]: 830 [facility] Normal Carbon Dioxide Level 28 mEq/L 21-32 mEq/L [facility]: 830 [facility] Normal Anion Gap 8 mEq/L 8-16 mEq/L [facility]: 830 [facility] Normal Calcium Level 8.8 mg/dL 8.5-10.1 mg/ dL [facility]: 830 [facility] 07/07/2021 Drug Screen, Urine Normal Amphetamines Leve l Urine negative negative [facility]: 83 0 [facility] High Barbiturates Urine positive negative [facility]: 830 [facility] High Benzodiazepines Urine positive negat socrates [facility]: 830 [facility] Normal Cannabinoids Urine negative negative [facility]: 830 [facility] Normal Cocaine Metabolite Urine negative ne gative [facility]: 830 [facility] Normal Methadone Urine negative negative Fi nal [facility]: 830 [facility] High Opiates Urine positive negative Drea l [facility]: 830 [facility] Normal Phencyclidine Urine negative negativ e [facility]: 830 [facility] 07/07/2021 ESR (Erythrocyte Sedimentation Rate), Blood Hig h Erythrocyte Sedimentation Rate 52 mm/HR 0-20 mm/HR [facility] Center: 830 [facility] 07/07/2021 D-dimer, Quant, Plasma Normal D-dimer Quant 333.30 NG/mL <500 NG/mL [facility]: 83 0 [facility] 07/07/2021 Lactic Acid, Serum or Plasma Panic High Lactic Acid Sepsis Protocol 4.1 mmol/L 0.4-2.0 mmol/L [facility] Center: 830 [facility] 07/07/2021 Respiratory Virus Panel [id number] No observ ation recorded. [facility]: [address] [place] [address] 07/07/2021 Magnesium, Serum or Plasma Normal Magnesium Level 1.8 mg/dL 1.8-2.4 mg/dL [facility]: 83 0 [facility] 07/07/2021 Pro BNP (Pro B-type Natriuretic Peptide), Serum or Plasma Normal Nt-pro BNP 30 pg/mL <125 pg/mL Final [facility] Center: [address] [place] [address] 07/07/2021 TIBC (Total Iron-binding Capacity), Serum Low Iron (Fe) 25 ug/dL 50-170 ug/dL [facility] nter: [address] [place] [address] Normal Total Iron Binding Capacity 376 ug/d L 250-450 ug/dL [facility]: [address] [place] [address] Low Percent Saturation 6.6 % 13.2-45.0 % [facility]: [address] [place] [address] 07/07/2021 C3 (Complement), Serum or Plasma Normal Complement C3 166 mg/dL 90-180 mg/dL [facility] nter: [address] [place] [address] 07/07/2021 C4 (Complement), Serum or Plasma High Com plement C4 46 mg/dL 10-40 mg/dL [facility]: 83 0 [facility] 07/07/2021 Vitamin B12, Serum Normal Vitamin B12 Level 850 pg/mL 247-911 pg/mL [facility]: 83 0 [facility] 07/07/2021 Folate, Serum Normal Folate 10.6 NG/mL >5.4 NG /mL [facility]: 0 [facility] 07/07/2021 Ferritin, Serum or Plasma Normal Ferritin 19 NG/mL 8-252 NG/mL [facility]: [address] [place] [address] 07/07/2021 C Reactive Protein, QN, Serum or Plasma High C Reactive Protein Quantitativ 3.58 mg/dL 0.00-0.30 mg/dL [facility]: 830 [facility] 07/07/2021 Glucose, Fingerstick, Blood High Bedside Glucose 178 mg/dL 70- 105 mg/dL [facility]: 83 0 [facility] 07/07/2021 Gas Panel, Arterial Blood High ABG pH (Ar terial) 7.468 units 7.350-7.450 units [facility]: 83 0 [facility] Low ABG Partial Pressure CO2 32.8 mmHg 3 5.0-45.0 mmHg [facility]: 830 [facility] Low ABG Partial Pressure O2 61.5 mmHg 75 .0-100.0 mmHg [facility]: 0 [facility] Normal ABG Total CO2 24.2 mEq/L 22.0-29.0 m Eq/L [facility]: 830 [facility] Normal Abg Hco3 23.2 mEq/L 22.0-26.0 mEq/L [facility]: 830 [facility] Normal ABG Base Excess 0.0 -2.0-2.0 Drea l [facility]: 830 [facility] Normal ABG Standard HCO3 24.4 mEq/L 22.0-26 .0 mEq/L [facility]: 830 [facility] Low ABG O2 Saturation 91.9 % 95.0-99.0 % [facility]: 830 [facility] 07/07/2021 Lactic Acid, Serum or Plasma Panic High Lactic Acid Sepsis Protocol 4.8 mmol/L 0.4-2.0 mmol/L [facility]: 830 [facility] 07/07/2021 Procalcitonin, Serum Normal Procalcitonin 0.09 [facility]: 0 [facility] 07/07/2021 Choriogonadotropin, Quant, Serum or Plasma Norm al HCG, Serum Quantitative < 1.0 mIU/mL [facility]: 0 [facility] 07/07/2021 Troponin I, Blood Normal Troponin I < 0.02 NG/mL < 0.10 NG/mL [facility]: 0 [facility] 07/07/2021 TSH, Serum or Plasma Normal Thyroid Stimulating Hormone 0.696 uIU/mL 0.358-3.740 uIU/mL [facility] nter: [address] [place] [address] 07/07/2021 T4, Free, Serum Low Free T4 0.65 NG/dL 0.76 -1.46 NG/dL [facility]: [address] [place] [address] 07/07/2021 T3, Total, Serum Low Total T3 49.3 NG/d L 60.0-181.0 NG/dL [facility]: [address] [place] [address] 07/07/2021 Sickle Cell Screen, Qual, Light Microscopy, Blood Normal Sickle Cell Screen negative negative [facility]: [address] [place] [address] 07/07/2021 Lactic Acid Level, Lactate Panic High Lactic Acid Level, Lactate 4.3 mmol/L 0.4-2.0 mmol/L Final [facility]: [address] [place] [address] 07/07/2021 Lactic Acid, Serum or Plasma Panic High Lactic Acid Sepsis Protocol 3.7 mmol/L 0.4-2.0 mmol/L [facility]: 0 [facility] 07/07/2021 Periph Smear for Path Review Normal Slide R theresa report [facility]: [address] [place] [address] Normal Source peripheral smear Final [facility]: [address] [place] [address] Normal Reason for Review atypical lymphs [facility]: 830 [facility] 07/07/2021 Mrsa Screen, PCR Normal MRSA PCR Screen no t detected negative [facility]: [address] [place] [address] 07/07/2021 Culture, Blood BLOOD No observation recorded. [facility]: [address] [place] [address] 07/07/2021 Pathology Request for Service Periph eral Smear-path Review [facility]: 83 0 [facility] 07/07/2021 LDH Lactate Dehydrogenase Normal LD H Lactate Dehydrogenase 245 U/L 84-246 U/L [facility] nter: 830 [facility] 07/07/2021 Acetaminophen, Serum Low Acetaminophen L evel 8.7 ug/mL 10.0- 30.0 ug/mL [facility]: 83 0 [facility] 07/07/2021 Culture, Blood BLOOD No observation recorded. [facility]: 830 [facility] 07/07/2021 Haptoglobin Normal Haptoglobin 208 mg/dL 33-27 8 mg/dL Final [facility]: 830 [facility] 07/07/2021 Complement C2, Serum Normal Complement C2 2.8 mg/dL 1.4-3.3 mg/dL [facility]: 83 0 [facility] 07/02/2021 SARS CoV 2 RNA (COVID-19), QL, vault mechanic-PCR, Respiratory Specim en Covid-19 PCR negative negative [facility]): 4 [facility] 07/02/2021 Lactic Acid La 1.1 mmol/L 0.4-2.0 mmo l/L [facility]): 4 [facility] 07/02/2021 CMP, Serum or Plasma Glu 100 mg/dL 74- 106 mg/dL [facility] ([facility]): 4 [facility] Bun 9 mg/dL 7-18 mg/dL [facility] ([facility]): 4 [facility] Cre 0.67 mg/dL 0.6-1.0 mg/dL [facility] ([facility]): 4 [facility] Na 141 mmol/L 136-145 mmol/L [facility] ([facility]): 4 [facility] Low K 3.3 mmol/L 3.5-5.1 mmol/L [facility] ([facility]): 4 [facility] Cl 103 mmol/L 98-107 mmol/L [facility] ([facility]): 4 [facility] Co2 27 mmol/L 21-32 mmol/L [facility] ([facility]): 4 [facility] Ca 8.9 mg/dL 8.5-10.1 mg/dL [facility] ([facility]): 4 [facility] Gap 11.0 mmol/L 5-12 mmol/L [facility] ([facility]): 4 [facility] Gfr >90 mL/min [facility] ([facility]): 4 [facility] Low Ast 9 U/L 15-37 U/L Final [facility] ([facility]): 4 [facility] Alt 23 U/L 12-78 U/L Final [facility]): 4 [facility] High Alk 119 U/L 46-116 U/L [facility] ([facility]): 4 [facility] Low Tbili 0.1 mg/dL 0.2-1.0 mg/dL [facility] ([facility]): 4 [facility] Tp 6.9 g/dL 6.4-8.2 g/dL [facility] ([facility]): 4 [facility] Low Alb 3.1 gm/dL 3.4-5.0 gm/dL [facility] ([facility]): 4 [facility] 07/02/2021 Bnp Bnp 28 pg/mL 0-125 pg/mL [facility] ([facility]): 4 [facility] 07/02/2021 Urine Microscopic High Urbc tntc /hpf 0-3 /h pf [facility] ([facility]): 4 [facility] High UWBC Reflex 0-2 /hpf 0-5 /hpf [facility] ([facility]): 4 [facility] Uec 1+ /hpf 0 /hpf Final [facility] ([facility]): 4 [facility] High Ub Reflex 1+ none seen Final [facility] ([facility]): 4 [facility] Uyeast present Final [facility] ([facility]): 4 [facility] 07/02/2021 Urinalysis Complete, Reflex Culture Ucol yellow [facility] ([facility]): 4 [facility] Uapp slighty cloudy Final [facility] ([facility]): 4 [facility] Ugl negative mg/dL negative mg/dL F [facility] ([facility]): 4 [facility] Ubil negative negative Final [facility] ([facility]): 4 [facility] Uket negative mg/dL negative mg/dL F [facility] ([facility]): 4 [facility] Sgu 1.010 1.005-1.030 Final [facility] ([facility]): 4 [facility] High Ubl Reflex 3+(large) negative Final [facility] ([facility]): 4 [facility] Yimi 6.5 5.0-9.0 Final [facility] ([facility]): 4 [facility] Upro Reflex negative mg/dL negative mg/dL Final [facility] ([facility]): 4 [facility] Uuro normal(0.2-1) mg/dL 0-1 mg/dL F [facility] ([facility]): 4 [facility] Unit Reflex negative negative Final [facility] ([facility]): 4 [facility] Ule Reflex negative negative Final [facility] ([facility]): 4 [facility] 07/02/2021 Magnesium, Serum or Plasma mg 2.0 mg/ dL 1.8-2.4 mg/dL [facility] ([facility]): 4 [facility] 07/02/2021 Troponin-high Sensitivity Trophs 5.4 NG /L 0-60.4 NG/L [facility] ([facility]): 4 [facility] 07/02/2021 Troponin-high Sensitivity Trophs 4.6 NG /L 0-60.4 NG/L [facility] ([facility]): 4 [facility] 07/02/2021 TORCH Respiratory Panel Tadeno not detected detected not detected Final [facility] ([facility]): [address] [facility] [id number] not detected detected not detected Final [facility] ([facility]): 4 [facility] Tcorohku1 not detected detected not detected Final [facility] ([facility]): 4 [facility] [id number] not detected detected not detected Final [facility] ([facility]): 4 [facility] [id number] not detected detected not detected Final [facility] ([facility]): 4 [facility] Tcorosars2 not detected detected not detected Final [facility] ([facility]): 4 [facility] Thummet not detected detected not de tected Final [facility] ([facility] 4 [facility] Thumrhino detected detected not dete cted Final [facility] ([facility]): 4 [facility] Tflua not detected detected not dete cted Final [facility] ([facility]): 4 [facility] Tflub not detected detected not dete cted Final [facility] ([facility]): 4 [facility] Tparaflu1 not detected detected not detected Final [facility] ([facility]): 4 [facility] Tparaflu2 not detected detected not detected Final [facility] ([facility]): 4 [facility] Tparaflu3 not detected detected not detected Final [facility] ([facility] 4 [facility] Tparaflu4 not detected detected not detected [facility] ([facility]): 4 [facility] Trsv not detected detected not detec jina [facility] ([facility] 4 [facility] Tbordpara not detected detected not detected Final [facility] ([facility]): 4 [facility] Tbord not detected detected not dete cted Final [facility] ([facility]): 4 [facility] Tchlamypne not detected detected not detected Final [facility] ([facility]): 4 [facility] Tmycpne not detected detected not de tected Final [facility] ([facility]): 4 [facility] 07/02/2021 CBC W/ Auto Diff Wbc 8.3 K/mm3 4.0-10. 0 K/mm3 Final [facility] ([facility]): 4 [facility] Rbc 4.10 M/mm3 4.00-5.50 M/mm3 [facility] ([facility]): 4 [facility] Low Hgb 10.2 gm/dL 12.0-16.0 gm/dL [facility] ([facility]): 4 [facility] Low Hct 30.9 % 36.0-48.8 % Final [facility] ([facility]): 4 [facility] Low Mcv 75.4 fL 80-96 fL [facility] 4 [facility] Low Mch 24.9 pg 27.0-31.0 pg Final [facility] ([facility]): 4 [facility] Mchc 33.0 g/dL 32.0-36.0 g/dL Final [facility] ([facility]): 4 [facility] High Rdw 14.8 % 10.0-14.5 % Final [facility] ([facility]): 4 [facility] Plt 336 K/mm3 172-450 K/mm3 Final [facility] ([facility]): 4 [facility] Mpv 10.2 fL 9.0-13.0 fL Final [facility] ([facility]): 4 [facility] High Gr% 88.9 % 50-80.0 % [facility] 4 [facility] High Ig% 0.4 % 0.0-0.2 % [facility] 4 [facility] Low Ly% 8.8 % 25.0-50.0 % Final [facility] ([facility]): 4 [facility] Low Mo% 1.8 % 2.0-10.0 % Final [facility] ([facility]): 4 [facility] Eo% 0.0 % 0-5.0 % Final [facility] [facility] ([facility]): 4 [facility] Ba% 0.1 % 0.0-2.0 % [facility] 4 [facility] Gr# 7.4 K/mm3 2.0-8.00 K/mm3 [facility] ([facility]): 4 [facility] Ig# 0.0 K/mm3 0.0-0.2 K/mm3 [facility] ([facility]): 4 [facility] Low Ly# 0.7 K/mm3 1.0-5.0 K/mm3 [facility] ([facility]): 4 [facility] Mo# 0.2 K/mm3 0.10-1.20 K/mm3 [facility] ([facility]): 4 [facility] Eo# 0.0 K/mm3 0.0-0.5 K/mm3 [facility] ([facility]): 4 [facility] Ba# 0.0 K/mm3 0.0-0.2 K/mm3 [facility] ([facility]): 4 [facility] 07/02/2021 Gas Panel, Venous Blood High Vph 7.44 7.3 1-7.41 [facility] ([facility]): 4 [facility] Low Vpco2 35.1 mmHg 41-51 mmHg [facility] ([facility]): 4 [facility] High Vpo2 89 mmHg 35-42 mmHg [facility] ([facility]): 4 [facility] High Vo2 Sat 97.3 % 68-77 % [facility] ([facility]): 4 [facility] Low Vhco3 23.5 mEq/L 24.0-25.0 mEq/L [facility] ([facility]): 4 [facility] Vbe 0.1 -3.0-3.0 [facility] ([facility]): 4 [facility] Vctco2 24.6 mmol/L 23.0-32.0 mmol/L [facility] ([facility]): 4 [facility] 07/02/2021 CMP, Serum or Plasma High Glu 164 mg/dL 74- 106 mg/dL [facility] ([facility]): 4 [facility] Low Bun 5 mg/dL 7-18 mg/dL [facility] ([facility]): 4 [facility] Cre 0.72 mg/dL 0.6-1.0 mg/dL [facility] ([facility]): 4 [facility] Na 141 mmol/L 136-145 mmol/L [facility] ([facility]): 4 [facility] K 3.7 mmol/L 3.5-5.1 mmol/L [facility] ([facility]): 4 [facility] Cl 104 mmol/L 98-107 mmol/L [facility] ([facility]): 4 [facility] Co2 25 mmol/L 21-32 mmol/L [facility] ([facility]): 4 [facility] Ca 8.7 mg/dL 8.5-10.1 mg/dL [facility] ([facility]): 4 [facility] Gap 12.0 mmol/L 5-12 mmol/L [facility] ([facility]): 4 [facility] Gfr >90 mL/min [facility] ([facility] 4 [facility] Low Ast 14 U/L 15-37 U/L [facility] ([facility]): 4 [facility] Alt 31 U/L 12-78 U/L [facility] o[facility]ital ([facility]): 4 [facility] Alk 113 U/L 46-116 U/L [facility] ([facility]): 4 [facility] Low Tbili < 0.1 mg/dL 0.2-1.0 mg/dL [facility] ([facility]): 4 [facility] Tp 6.9 g/dL 6.4-8.2 g/dL [facility] ([facility]): 4 [facility] Low Alb 3.0 gm/dL 3.4-5.0 gm/dL [facility] ([facility]): 4 [facility] 07/02/2021 C Reactive Protein High Crp 55.8 mg/L 0.0-3 .0 mg/L [facility] ([facility]): 4 [facility] 04/02/2021 CBC W/ Auto Diff High White Blood Count 13.0 10 4.0-10.0 10 [facility]: 830 [facility] Normal Red Blood Count 4.29 10 4.00-5.40 10 [facility]: 830 [facility] Low Hemoglobin 10.4 g/dL 12.0-15.5 g/dL [facility]: 830 [facility] Low Hematocrit 33.8 % 36.0-47.0 % [facility]: 830 [facility] Low Mean Corpuscular Volume 78.8 fL 80.0 -96.0 fL [facility]: [address] [place] [address] Low Mean Corpuscular Hemoglobin 24.2 pg 27.0-33.0 pg [facility]: [address] [place] [address] Low Mean Corpuscular HGB Conc 30.8 g/dL 32.0-36.5 g/dL Final [facility]: [address] [place] [address] High Red Cell Distribution Width 15.7 % 1 1.5-14.5 % [facility]: [address] [place] [address] Normal Platelet Count, Automated 361 10 150 -450 10 [facility]: 0 [facility] Normal Neutrophils % 62.9 % 36.0-66.0 % [facility]: [address] [facility] Normal Lymph % 28.4 % 24.0-44.0 % Final [facility]: 8[address] [facility] Normal [place] % 5.2 % 2.0-8.0 % [facility]: 0 [facility] Normal Eos % 2.5 % 0.0-3.0 % [facility]: [address] [place] [address] Normal Baso % 0.5 % 0.0-1.0 % [facility]: 0 [facility] Normal Immature Granulocyte % 0.5 % 0-3.0 % [facility]: 0 [facility] Normal Nucleated Red Blood Cell % 0.0 % 0- 0 % [facility]: [address] [facility] Normal Neutrophils # 8.2 10 1.5-8.5 10 [facility]: 0 [facility] Normal Lymph # 3.7 10 1.5-5.0 10 [facility]: 0 [facility] Normal [place] # 0.7 10 0.0-0.8 10 [facility]: [address] [facility] Normal Eos # 0.3 10 0.0-0.5 10 [facility]: [address] [place] [address] Normal Baso # 0.1 10 0.0-0.2 10 [facility]: [address] [place] [address] 04/02/2021 PT/INR Normal Prothrombin Time 13.6 secon ds 12.5-14.3 seconds [facility]: [address] [place] [address] Normal Inr 1.02 [facility]: [address] [place] [address] 04/02/2021 Partial Thromboplastin Time Normal Partial Thromboplastin Time 34.5 seconds 24.2-38.5 seconds [facility] nter: [address] [place] [address] 04/02/2021 Cardiovascular Assessment Panel, Serum Normal CPK Creatine Phosphokinase 155 U/L 26-192 U/L [facility]: [address] [place] [address] Normal CK-mb Value Mass < 1.0 NG/mL <3.6 NG /mL [facility]: [address] [place] [address] Normal mb/CK Relative Index 0.65 < or =4 [facility]: [address] [place] [address] Normal Troponin I < 0.02 NG/mL < 0.10 NG/mL [facility]: [address] [place] [address] 04/02/2021 Hepatic Function Panel, Serum Normal AST/SG OT 12 U/L 7-37 U/L [facility]: [address] [place] [address] Normal ALT/SGPT 27 U/L 12-78 U/L [facility]: [address] [place] [address] High Alkaline Phosphatase 132 U/L 45-117 U/L [facility]: [address] [place] [address] Low Bilirubin,total 0.1 mg/dL 0.2-1.0 mg /dL [facility]: [address] [place] [address] Normal Bilirubin,direct < 0.1 mg/dL 0.0-0.2 mg/dL [facility]: [address] [place] [address] Normal Total Protein 6.4 gm/dL 6.4-8.2 gm/d L [facility]: [address] [place] [address] Normal Albumin 3.2 gm/dL 3.2-5.2 gm/dL Drea l [facility]: [address] [place] [address] Low Albumin/globulin Ratio 1.0 1.2-2. 2 [facility]: [address] [place] [address] 04/02/2021 C-reactive Protein, Qualitative, Serum Normal Glucose, Fasting 88 mg/dL 70-100 mg/dL [facility] nter: [address] [place] [address] Normal Blood Urea Nitrogen 7 mg/dL 7-18 mg/ dL [facility]: [address] [place] [address] Normal Creatinine for GFR 0.71 mg/dL 0.55-1 .30 mg/dL [facility]: [address] [place] [address] Normal Glomerular Filtration Rate > 60.0 >6 0 [facility]: [address] [place] [address] Normal Sodium Level 142 mEq/L 136-145 mEq/L [facility]: [address] [place] [address] Normal Potassium Serum 3.6 mEq/L 3.5-5.1 mE q/L [facility]: [address] [place] [address] High Chloride Level 111 mEq/L 98-107 mEq/ L [facility]: [address] [place] [address] Normal Carbon Dioxide Level 28 mEq/L 21-32 mEq/L [facility]: [address] [place] [address] Low Anion Gap 3 mEq/L 8-16 mEq/L [facility]: [address] [place] [address] Low Calcium Level 8.3 mg/dL 8.5-10.1 mg/ dL [facility]: [address] [place] [address] 04/02/2021 Amylase, Serum or Plasma Normal Amylase 30 U/L 25-115 U/L [facility]: [address] [place] [address] 04/02/2021 Lipase, Serum or Plasma Low Lipase 45 U/L 7 3-393 U/L [facility]: [address] [place], [place] [address] 04/02/2021 Ethanol, Blood Normal Ethyl Alcohol (Ethano l) < 0.003 % 0.000- 0.010 % [facility]: 83 0 [facility] 04/02/2021 Lactic Acid, Serum or Plasma Normal Lactic Acid Sepsis Protocol 1.6 mmol/L 0.4-2.0 mmol/L [facility]: 8[address] [facility] 04/02/2021 Type + Screen, Serum Normal Blood Type O posit socrates [facility]: 8[address] [facility] Normal Ab Screen (Indirect Colin)vis negat socrates [facility]: 830 [facility] 04/02/2021 UA W/ Reflex to Culture Normal Appearance, Urine Rfx clear clear [facility]: 83 0 [facility] Normal Color, Urine Rfx yellow yellow [facility]: 8[address] [facility] Normal pH,urine Rfx 6.0 units 5.0-9.0 units [facility]: 830 [facility] Normal Specific Warren Ur Auto Rfx 1.018 1.002-1.035 [facility]: 830 [facility] Normal Protein, Urine Auto Rfx negative mg/ dL negative mg/dL [facility]: [address] [facility] Normal Glucose, Urine (UA) Auto Rfx n egative mg/dL negative mg/dL [facility]: 8[address] [facility] Normal Ketone, Urine Auto Rfx negative mg/d L negative mg/dL [facility]: 8[address] [facility] Normal Urobilinogen, Urine Auto Rfx 0.2 mg/ dL 0.0-2.0 mg/dL [facility]: [address] [facility] Normal Bilirubin, Urine Auto Rfx negative n egative [facility]: 8[address] [facility] Normal Nitrite, Urine Auto Rfx negative neg ative [facility]: 8[address] [facility] Normal Leukocyte Esterase Ur Auto Rfx negat socrates negative [facility]: 8[address] [facility] Normal Blood, Urine Blood Rfx negative nega tive [facility]: 8[address] [facility] Normal WBC, Urine Auto Rfx 0 /hpf 0-3 /hpf [facility]: [address] [facility] Normal RBC, Urine Auto Rfx 0 /hpf 0-3 /hpf [facility]: [address] [facility] Normal Bacteria, Urine Auto Rfx negative ne gative [facility]: 8[address] [facility] Normal Squam Epithelial Cell Ur Aurfx 3 /hp f 0-6 /hpf [facility]: [address] [facility] Normal Mucus, Urine Rfx small negative Fin al [facility]: [address] [facility] Normal Hyaline Cast, Urine Auto Rfx 0 /lpf 0-1 /lpf [facility]: 8[address] [facility] 04/02/2021 Drug Screen, Urine Normal Amphetamines Leve l Urine negative negative [facility]: 83 0 [facility] High Barbiturates Urine positive negative [facility]: 8[address] [facility] Normal Benzodiazepines Urine negative negat socrates [facility]: [address] [facility] High Cannabinoids Urine positive negative [facility]: [address] [facility] Normal Cocaine Metabolite Urine negative ne gative [facility]: [address] [facility] Normal Methadone Urine negative negative Fi nal [facility]: [address] [facility] Normal Opiates Urine negative negative Drea l [facility]: [address] [facility] Normal Phencyclidine Urine negative negativ e [facility]: 8[address] [facility] 03/07/2021 CBC W/ Auto Diff Blood venous No observation re corded. [facility]: [address] [facility] [address], [place] 03/07/2021 TSH + Free T4, Serum Blood venous No observa tion recorded. 03/07/2021 CMP, Serum or Plasma Blood venous No observa tion recorded. 03/07/2021 Lipid Panel, Serum Blood venous No observation recorded. [facility]: [address] [facility] [address], [place] 03/07/2021 HbA1C (Hemoglobin a1C), Blood Blood venous No observation recorded. [facility]: [address] [facility] [address], [place] 03/07/2021 Vitamin D, 25-Hydroxy, Total, Serum Blood venous No observation recorded. [facility]: [address] [facility] [address], [place] 03/07/2021 Lupus Anticoagulant, Plasma Blood venous No observation recorded. [facility]: [address] [facility] [address], [place] 03/05/2021 Levetiracetam, Serum Normal Levetiracetam ( Keppra) 10.2 ug/mL 10.0-40.0 ug/mL [facility]: 83 0 [facility] 02/20/2021 Istat Chem8+ Panel Low Istat HCT 37.0 % 38. 0-51.0 % [facility]: [address] [facility] Normal Istat Glucose 94 mg/dL 70-105 mg/dL [facility]: [address] [facility] Normal Istat Sodium 140 mEq/L 136-145 mEq/L [facility]: [address] [facility] Normal Istat Potassium 4.3 mEq/L 3.5-5.1 mE q/L [facility]: [address] [facility] Normal Istat Ca++ 5.0 mg/dL 4.5-5.3 mg/dL [facility]: [address] [facility] Normal Istat Chloride 107 mEq/L 98-109 mEq/ L [facility]: [address] [facility] Normal Istat CO2 26.0 mm/L 23.0-27.0 mm/L [facility]: [address] [facility] Normal Istat BUN 9 mg/dL 8-26 mg/dL [facility]: [address] [facility] Low Istat Creatinine 0.5 mg/dL 0.6-1.3 m g/dL [facility]: [address] [facility] 02/20/2021 CBC W/ Auto Diff High White Blood Count 12.7 10 4.0-10.0 10 [facility]: [address] [facility] Normal Red Blood Count 4.60 10 4.00-5.40 10 [facility]: [address] [facility] Low Hemoglobin 11.4 g/dL 12.0-15.5 g/dL [facility]: [address] [facility] Normal Hematocrit 37.4 % 36.0-47.0 % [facility]: [address] [place] [address] Normal Mean Corpuscular Volume 81.3 fL 80.0 -96.0 fL [facility]: [address] [place] [address] Low Mean Corpuscular Hemoglobin 24.8 pg 27.0-33.0 pg [facility]: [address] [place] [address] Low Mean Corpuscular HGB Conc 30.5 g/dL 32.0-36.5 g/dL [facility]: [address] [place] [address] High Red Cell Distribution Width 15.2 % 1 1.5-14.5 % [facility]: [address] [place] [address] Normal Platelet Count, Automated 303 10 150 -450 10 [facility]: [address] [facility] Normal Neutrophils % 63.4 % 36.0-66.0 % Fin [facility]: [address] [facility] Normal Lymph % 28.5 % 24.0-44.0 % [facility]: [address] [facility] Normal [place] % 5.6 % 2.0-8.0 % [facility]: 0 [facility] Normal Eos % 1.7 % 0.0-3.0 % [facility]: [address] [facility] Normal Baso % 0.4 % 0.0-1.0 % [facility]: [address] [facility] Normal Immature Granulocyte % 0.4 % 0-3.0 % [facility]: [address] [facility] Normal Nucleated Red Blood Cell % 0.0 % 0- 0 % [facility]: [address] [facility] Normal Neutrophils # 8.1 10 1.5-8.5 10 [facility]: [address] [facility] Normal Lymph # 3.6 10 1.5-5.0 10 [facility]: [address] [facility] Normal [place] # 0.7 10 0.0-0.8 10 [facility]: [address] [facility] Normal Eos # 0.2 10 0.0-0.5 10 [facility]: [address] [facility] Normal Baso # 0.1 10 0.0-0.2 10 [facility]: [address] [facility] 02/20/2021 ESR (Erythrocyte Sedimentation Rate), Blood Hig h Erythrocyte Sedimentation Rate 36 mm/HR 0-20 mm/HR [facility]: 0 [facility] 02/20/2021 Hepatic Function Panel, Serum Normal AST/SG OT 12 U/L 7-37 U/L [facility]: 0 [facility] Normal ALT/SGPT 45 U/L 12-78 U/L [facility]: 0 [facility] High Alkaline Phosphatase 166 U/L 45-117 U/L [facility]: 0 [facility] Low Bilirubin,total < 0.1 mg/dL 0.2-1.0 mg/dL [facility]: 0 [facility] Normal Bilirubin,direct < 0.1 mg/dL 0.0-0.2 mg/dL [facility]: 0 [facility] Normal Total Protein 6.6 gm/dL 6.4-8.2 gm/d L [facility]: 0 [facility] Normal Albumin 3.4 gm/dL 3.2-5.2 gm/dL Drea anaya [facility]: [address] [place] [address] Low Albumin/globulin Ratio 1.1 1.2-2. 2 [facility]: [address] [place] [address] 02/20/2021 C Reactive Protein, QN, Serum or Plasma High C Reactive Protein Quantitativ 2.71 mg/dL 0.00-0.30 mg/dL [facility] Center: [address] [place] [address] 01/05/2021 Urinalysis, Dipstick, Auto No observation recorded. 01/05/2021 Test, Urine No observation kesha rded. 12/06/2020 Cbc High White Blood Count 12.8 10 4.0-10 .0 10 [facility]: [address] [place] [address] Normal Red Blood Count 4.47 10 4.00-5.40 10 [facility]: [address] [place] [address] Low Hemoglobin 11.4 g/dL 12.0-15.5 g/dL [facility]: [address] [place] [address] Normal Hematocrit 36.5 % 36.0-47.0 % [facility]: [address] [place] [address] Normal Mean Corpuscular Volume 81.7 fL 80.0 -96.0 fL [facility]: [address] [place] [address] Low Mean Corpuscular Hemoglobin 25.5 pg 27.0-33.0 pg [facility]: [address] [place] [address] Low Mean Corpuscular HGB Conc 31.2 g/dL 32.0-36.5 g/dL [facility]: [address] [place] [address] Normal Red Cell Distribution Width 13.8 % 1 1.5-14.5 % [facility]: [address] [place] [address] Normal Platelet Count, Automated 350 10 150 -450 10 [facility]: [address] [place] [address] Normal Nucleated Red Blood Cell % 0.0 % 0- 0 % [facility]: [address] [place] [address] 12/05/2020 CBC W/ Auto Diff High White Blood Count 16.0 10 4.0-10.0 10 [facility]: [address] [facility] Normal Red Blood Count 4.80 10 4.00-5.40 10 [facility]: [address] [facility] Normal Hemoglobin 12.1 g/dL 12.0-15.5 g/dL [facility]: [address] [facility] Normal Hematocrit 39.0 % 36.0-47.0 % [facility]: [address] [facility] Normal Mean Corpuscular Volume 81.3 fL 80.0 -96.0 fL [facility]: [address] [place] [address] Low Mean Corpuscular Hemoglobin 25.2 pg 27.0-33.0 pg [facility]: [address] [place] [address] Low Mean Corpuscular HGB Conc 31.0 g/dL 32.0-36.5 g/dL [facility]: [address] [facility] Normal Red Cell Distribution Width 13.8 % 1 1.5-14.5 % [facility]: [address] [facility] Normal Platelet Count, Automated 370 10 150 -450 10 [facility]: 0 [facility] High Neutrophils % 74.0 % 36.0-66.0 % [facility]: [address] [facility] Low Lymph % 19.3 % 24.0-44.0 % Final [facility]: [address] [facility] Normal [place] % 3.7 % 0.0-5.0 % [facility]: [address] [facility] Normal Eos % 2.1 % 0.0-3.0 % [facility]: [address] [facility] Normal Baso % 0.5 % 0.0-1.0 % [facility]: 0 [facility] Normal Immature Granulocyte % 0.4 % 0-3.0 % [facility]: [address] [facility] Normal Nucleated Red Blood Cell % 0.0 % 0- 0 % [facility]: [address] [facility] High Neutrophils # 11.8 10 1.5-8.5 10 [facility]: [address] [facility] Normal Lymph # 3.1 10 1.5-5.0 10 [facility]: [address] [facility] Normal [place] # 0.6 10 0.0-0.8 10 [facility]: [address] [facility] Normal Eos # 0.3 10 0.0-0.5 10 [facility]: [address] [facility] Normal Baso # 0.1 10 0.0-0.2 10 [facility]: [address] [facility] 12/05/2020 Hepatic Function Panel, Serum Low AST/SG OT 6 U/L 7-37 U/L [facility]: [address] [facility] Normal ALT/SGPT 19 U/L 12-78 U/L [facility]: [address] [facility] High Alkaline Phosphatase 136 U/L 45-117 U/L [facility]: [address] [facility] Low Bilirubin,total < 0.1 mg/dL 0.2-1.0 mg/dL [facility]: [address] [facility] Normal Bilirubin,direct < 0.1 mg/dL 0.0-0.2 mg/dL [facility]: [address] [facility] Normal Total Protein 7.4 gm/dL 6.4-8.2 gm/d L [facility]: [address] [facility] Normal Albumin 3.7 gm/dL 3.2-5.2 gm/dL [facility]: [address] [facility] Low Albumin/globulin Ratio 1.0 1.2-2. 2 [facility]: [address] [facility] 12/05/2020 BMP, Serum or Plasma Normal Glucose, Fastin g 90 mg/dL 70-100 mg/dL [facility]: 83 0 [facility] Normal Blood Urea Nitrogen 15 mg/dL 7-18 mg /dL [facility]: [address] [place] [address] Normal Creatinine for GFR 0.83 mg/dL 0.55-1 .30 mg/dL [facility]: [address] [place] [address] Normal Glomerular Filtration Rate > 60.0 >6 0 [facility]: [address] [place] [address] Normal Sodium Level 141 mEq/L 136-145 mEq/L [facility]: [address] [place] [address] Normal Potassium Serum 3.6 mEq/L 3.5-5.1 mE q/L [facility]: [address] [place] [address] High Chloride Level 110 mEq/L 98-107 mEq/ L [facility]: [address] [place] [address] Normal Carbon Dioxide Level 21 mEq/L 21-32 mEq/L [facility]: [address] [place] [address] Normal Anion Gap 10 mEq/L 8-16 mEq/L [facility]: [address] [place] [address] Normal Calcium Level 9.3 mg/dL 8.5-10.1 mg/ dL [facility]: [address] [place] [address] 12/05/2020 Lipase, Serum or Plasma Normal Lipase 165 U/L 73-393 U/L [facility]: [address] [place] [address] 12/05/2020 PT/INR High Prothrombin Time 23.9 secon ds 12.5-14.3 seconds [facility]: [address] [place] [address] Normal Inr 2.09 [facility]: [address] [place] [address] 12/05/2020 Partial Thromboplastin Time High Partial Thromboplastin Time 56.4 seconds 24.2-38.5 seconds [facility] nter: [address] [place] [address] 12/05/2020 Type + Screen, Serum Normal Blood Type O posit socrates [facility]: [address] [place] [address] Normal Ab Screen (Indirect Colin)vis negat socrates [facility]: [address] [place] [address] 12/05/2020 UA W/ Reflex to Culture Normal Appearance, Urine Rfx clear clear [facility]: 83 0 [facility] Normal Color, Urine Rfx colorless yellow Fi nal [facility]: 830 [facility] Normal pH,urine Rfx 5.0 units 5.0-9.0 units [facility]: 830 [facility] Normal Specific Warren Ur Auto Rfx 1.036 1.002-1.035 [facility]: 830 [facility] Normal Protein, Urine Auto Rfx negative mg/ dL negative mg/dL [facility]: 830 [facility] Normal Glucose, Urine (UA) Auto Rfx n egative mg/dL negative mg/dL [facility]: 830 [facility] Normal Ketone, Urine Auto Rfx negative mg/d L negative mg/dL [facility]: 830 [facility] Normal Urobilinogen, Urine Auto Rfx 0.2 mg/ dL 0.0-2.0 mg/dL [facility]: 830 [facility] Normal Bilirubin, Urine Auto Rfx negative n egative [facility]: 830 [facility] Normal Nitrite, Urine Auto Rfx negative neg ative [facility]: 830 [facility] Normal Leukocyte Esterase Ur Auto Rfx negat socrates negative [facility]: 830 [facility] High Blood, Urine Blood Rfx 1+ negati ve [facility]: 830 [facility] High WBC, Urine Auto Rfx 4 /hpf 0-3 /hpf [facility]: 830 [facility] Normal RBC, Urine Auto Rfx 0 /hpf 0-3 /hpf [facility]: 830 [facility] Normal Bacteria, Urine Auto Rfx negative ne gative [facility]: 830 [facility] Normal Squam Epithelial Cell Ur Aurfx 3 /hp f 0-6 /hpf [facility]: 830 [facility] Normal Mucus, Urine Rfx small negative Fin [facility]: 830 [facility] Normal Hyaline Cast, Urine Auto Rfx 0 /lpf 0-1 /lpf [facility]: 830 [facility] 11/28/2020 CBC W/ Auto Diff High White Blood Count 13.2 10 4.0-10.0 10 [facility]: 830 [facility] Normal Red Blood Count 4.71 10 4.00-5.40 10 [facility]: 830 [facility] Low Hemoglobin 11.9 g/dL 12.0-15.5 g/dL [facility]: 830 [facility] Normal Hematocrit 38.4 % 36.0-47.0 % [facility]: [address] [place] [address] Normal Mean Corpuscular Volume 81.5 fL 80.0 -96.0 fL [facility]: [address] [place] [address] Low Mean Corpuscular Hemoglobin 25.3 pg 27.0-33.0 pg [facility]: 830 [facility] Low Mean Corpuscular HGB Conc 31.0 g/dL 32.0-36.5 g/dL [facility]: 830 [facility] Normal Red Cell Distribution Width 14.0 % 1 1.5-14.5 % [facility]: 830 [facility] Normal Platelet Count, Automated 298 10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
--- OUTSIDE RECORDS SUMMARY | 2021-10-04 04:45 | CCD ---
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 RxNorm Banana Anaphylaxis Active 3182521 RxNorm Latex Active 8745 RxNorm Promethazine Rash [...] HOURS NEEDED FOR PAIN Completed 08/08/2021 Ajovy Syringe 225 mg/1.5 mL subcutaneous Completed [...] TABLET BY MOUTH TWICE A DAY Completed jkbwzgcbau-sipuakyftenej-vltvmgmk 50 mg- 300 mg-40 mg capsule TAKE ONE CAPSULE BY MOUTH EVERY 4 HOURS NEEDED Completed 03/01/2021 dqbzrlkzdu-cckhhhyjrjlvb-bjntzzye 50 mg-325 mg-40 mg tablet Acti ve [...] ot available ergocalciferol (vitamin D2) 1,250 mcg (50,000 unit) capsule Acti ve Not available esomeprazole magnesium 20 mg capsule,delayed release Completed 09/13/2020 FeroSul 325 mg (65 mg iron) tablet Active Not available ferrous sulfate 324 mg [...] Completed 2020 gabapentin 600 mg tablet Completed heparin (porcine) [...] DIRECTED Completed 08/25/2021 lamotrigine 100 mg tablet Active Not av ailable lamotrigine 150 mg tablet Active Not av ailable lamotrigine 25 mg tablet TAKE ONE TABLET BY MOUTH TWICE A DAY Active No t available levetiracetam 1,000 mg tablet 1 Completed 09/13/2020 levetiracetam 750 mg tablet TAKE TWO TABLETS BY MOUTH TWICE A DAY Completed 0 08/02/2021 lidocaine 4 % topical cream Completed 12/2019 lidocaine-prilocaine 2.5 %-2.5 % topical cream Completed 10/05/2020 magnesium oxide 400 mg (241.3 mg magnesium) tablet Completed 09/13/2020 metformin 500 mg tablet Completed 09/13/20 methylprednisolone 4 mg tablet Completed 0 07/19/2021 metoclopramide 10 mg tablet Completed 12/2019 [...] tablet Completed 09/13/20 pregabalin 75 mg capsule Active Not ziyad ilable Vitamin 27 mg iron-0.8 mg table t [...] 20 topiramate 50 mg tablet Completed 09/13/20 tramadol [...] Vein Thrombosis Active 03/07/2021 Asthma Active 08/08/2021 Procedures Date Name Performed by 11/25/2020 Ligation of Fallopian Tube Information n ot available 11/08/2020 Electrocardiogram [facility] [address] [facility] [address] [place] [address] (Work Place) 08/08/2021 MRI, Brain, W/o Contrast [employer] [address] [place] [address] (Work Place) Notes: section x5, Involuntary D&C, Appendectomy, Tonsillectomy, Gallbladder Results Lab Results Date Name Specimen Result Interpretation Description Value Range Status Address 08/29/2021 RPR (Rapid Plasma Reagin), Serum Blood venous Normal RPR (DX) W/refl Titer and Confirmatory Testing non-reactive non-reactive Final [facility]: [address] [facility] 08/25/2021 CBC W/ Auto Diff High White Blood Count 11.3 10 4.0-10.0 10 [facility]: 0 [facility] Normal Red Blood Count 4.18 10 4.00-5.40 10 [facility]: 0 [facility] Low Hemoglobin 9.9 g/dL 12.0-15.5 g/dL F inal [facility]: 0 [facility] Low Hematocrit 32.3 % 36.0-47.0 % [facility]: [address] [place] [address] Low Mean Corpuscular Volume 77.3 fL 80.0 -96.0 fL [facility]: 0 [facility] Low Mean Corpuscular Hemoglobin 23.7 pg 27.0-33.0 pg Final [facility]: [address] [facility] Low Mean Corpuscular HGB Conc 30.7 g/dL 32.0-36.5 g/dL Final [facility]: [address] [facility] High Red Cell Distribution Width 15.6 % 1 1.5-14.5 % [facility]: [address] [place] [address] Normal Platelet Count, Automated 292 10 150 -450 10 [facility]: [address] [facility] Normal Neutrophils % 62.6 % 36.0-66.0 % [facility]: [address] [facility] Normal Lymph % 27.2 % 24.0-44.0 % Final [facility]: 8[address] [facility] Normal Dickenson % 5.4 % 2.0-8.0 % Final [facility]: 0 [facility] High Eos % 3.8 % 0.0-3.0 % [facility]: [address] [facility] Normal Baso % 0.6 % 0.0-1.0 % Final [facility]: 0 [facility] Normal Immature Granulocyte % 0.4 % 0-3.0 % [facility]: 8[address] [facility] Normal Nucleated Red Blood Cell % 0.0 % 0- 0 % [facility]: 8[address] [facility] Normal Neutrophils # 7.1 10 1.5-8.5 10 [facility]: 8[address] [facility] Normal Lymph # 3.1 10 1.5-5.0 10 [facility]: [address] [facility] Normal Dickenson # 0.6 10 0.0-0.8 10 [facility]: 0 [facility] Normal Eos # 0.4 10 0.0-0.5 10 [facility]: [address] [facility] Normal Baso # 0.1 10 0.0-0.2 10 [facility]: 8[address] [facility] 08/25/2021 CBC W/ Auto Diff High White Blood Count 11.1 10 4.0-10.0 10 [facility]: 8[address] [facility] Normal Red Blood Count 4.23 10 4.00-5.40 10 [facility]: 8[address] [facility] Low Hemoglobin 10.0 g/dL 12.0-15.5 g/dL [facility]: 8[address] [facility] Low Hematocrit 33.0 % 36.0-47.0 % [facility]: [address] [place] [address] Low Mean Corpuscular Volume 78.0 fL 80.0 -96.0 fL [facility]: [address] [place] [address] Low Mean Corpuscular Hemoglobin 23.6 pg 27.0-33.0 pg [facility]: [address] [place] [address] Low Mean Corpuscular HGB Conc 30.3 g/dL 32.0-36.5 g/dL [facility]: [address] [facility] High Red Cell Distribution Width 15.6 % 1 1.5-14.5 % [facility]: 0 [facility] Normal Platelet Count, Automated 309 10 150 -450 10 [facility]: [address] [facility] Normal Neutrophils % 63.1 % 36.0-66.0 % Fin [facility]: [address] [facility] Normal Lymph % 27.5 % 24.0-44.0 % [facility]: 8[address] [facility] Normal Dickenson % 4.5 % 2.0-8.0 % [facility]: 8[address] [facility] High Eos % 4.2 % 0.0-3.0 % [facility]: [address] [facility] Normal Baso % 0.4 % 0.0-1.0 % [facility]: 8[address] [facility] Normal Immature Granulocyte % 0.3 % 0-3.0 % [facility]: 8[address] [facility] Normal Nucleated Red Blood Cell % 0.0 % 0- 0 % [facility]: 8[address] [facility] Normal Neutrophils # 7.0 10 1.5-8.5 10 [facility]: 8[address] [facility] Normal Lymph # 3.1 10 1.5-5.0 10 [facility]: 8[address] [facility] Normal Dickenson # 0.5 10 0.0-0.8 10 [facility]: 8[address] [facility] Normal Eos # 0.5 10 0.0-0.5 10 [facility]: 8[address] [facility] Normal Baso # 0.1 10 0.0-0.2 10 [facility]: 830 [facility] 08/25/2021 Choriogonadotropin, Quant, Serum or Plasma Norm al HCG, Serum Quantitative < 1.0 mIU/mL [facility]: [address] [facility] 08/25/2021 CMP, Serum or Plasma Normal Glucose, Fastin g 90 mg/dL 70-100 mg/dL [facility]: 83 0 [facility] Normal Blood Urea Nitrogen 10 mg/dL 7-18 mg /dL [facility]: 8[address] [facility] Normal Creatinine for GFR 0.62 mg/dL 0.55-1 .30 mg/dL [facility]: 830 [facility] Normal Glomerular Filtration Rate > 60.0 >6 0 [facility]: 8[address] [facility] Normal Sodium Level 140 mEq/L 136-145 mEq/L [facility]: 0 [facility] Normal Potassium Serum 3.9 mEq/L 3.5-5.1 mE q/L [facility]: 8[address] [facility] Normal Chloride Level 107 mEq/L 98-107 mEq/ L [facility]: 8[address] [facility] Normal Carbon Dioxide Level 27 mEq/L 21-32 mEq/L [facility]: 8[address] [facility] Low Anion Gap 6 mEq/L 8-16 mEq/L [facility]: 830 [facility] Normal Calcium Level 9.2 mg/dL 8.5-10.1 mg/ dL [facility]: 830 [facility] Normal AST/SGOT 10 U/L 7-37 U/L [facility]: 8[address] [facility] Normal ALT/SGPT 20 U/L 12-78 U/L [facility]: 8[address] [facility] Normal Alkaline Phosphatase 113 U/L 45-117 U/L [facility]: 8[address] [facility] Low Bilirubin,total 0.1 mg/dL 0.2-1.0 mg /dL [facility]: 8[address] [facility] Normal Total Protein 6.6 gm/dL 6.4-8.2 gm/d L [facility]: 8[address] [facility] Normal Albumin 3.3 gm/dL 3.2-5.2 gm/dL Drea l [facility]: [address] [facility] Low Albumin/globulin Ratio 1.0 1.2-2. 2 [facility]: 8[address] [facility] 08/25/2021 TSH, Serum or Plasma Normal Thyroid Stimulating Hormone 1.320 uIU/mL 0.358-3.740 uIU/mL [facility] nter: 8[address] [facility] 08/25/2021 Vitamin B12, Serum Normal Vitamin B12 Level 893 pg/mL 247-911 pg/mL [facility]: 83 0 [facility] 08/25/2021 Lamotrigine, Serum Low Lamotrigine (Lami ctal) <1.0 ug/mL 2.0- 20.0 ug/mL [facility]: 83 0 [facility] 08/15/2021 Iron + TIBC + Ferritin, Serum Blood venous Low Iron, Total 26 mcg/dL 40-190 mcg/dL Final [facility]: [address] [facility] Blood venous Normal Iron Binding Capacity 38 4 mcg/dL (calc) 250-450 mcg/dL (calc) [facility]: [address] [facility] Blood venous Low % Saturation 7 % (calc) 16-45 % (calc) [facility]: [address] [facility] Blood venous Low Ferritin 11 NG/mL 16-154 NG/m L [facility]: [address] [place] [facility] 08/15/2021 HIV 1/2 Antigen/antibody, 4TH Gen W/rfl,screenin g Blood venous Normal HIV Ag/Ab, 4TH Gen non-reactive non-reactive Final [facility]: [address] [place] [facility] 08/15/2021 Cbc Blood venous High White Blood Cell Count 12.2 thousand/uL 3.8-10.8 thousand/uL Final [facility]: [address] [facility] Blood venous Normal Red Blood Cell Count 4.5 4 million/uL 3.80-5.10 million/uL [facility]: [address] [facility] Blood venous Low Hemoglobin 10.6 g/dL 11.7-15. 5 g/dL [facility]: [address] [facility] Blood venous Normal Hematocrit 35.5 % 35.0-45.0 % [facility]: [address] [facility] Blood venous Low Mcv 78.2 fL 80.0-100.0 fL Fi nal [facility]: [address] [facility] Blood venous Low Mch 23.3 pg 27.0-33.0 pg Fin al [facility]: [address] [facility] Blood venous Low Mchc 29.9 g/dL 32.0-36.0 g/dL [facility]: [address] [facility] Blood venous Normal Rdw 14.6 % 11.0-15.0 % [facility]: [address] [facility] Blood venous High Platelet Count 536 thous and/uL 140-400 thousand/uL [facility]: [address] [place] [facility] Blood venous Normal Mpv 10.9 fL 7.5-12.5 fL Drea l [facility]: [address] [facility] 08/09/2021 Urinalysis, Dipstick Normal Appearance, Urine hazy clear [facility]: 8[address] [facility] Normal Color, Urine yellow yellow [facility]: 8[address] [facility] Normal pH,urine 5.0 units 5.0-9.0 units [facility]: 8[address] [facility] Normal Specific [place] Urine Auto 1.028 1 .002-1.035 [facility]: 8[address] [facility] Normal Protein, Urine Auto negative mg/dL n egative mg/dL [facility]: 8[address] [facility] Normal Glucose, Urine (UA) Auto negative mg /dL negative mg/dL [facility]: 8[address] [facility] Normal Ketone, Urine Auto negative mg/dL ne gative mg/dL [facility]: 8[address] [facility] Normal Urobilinogen, Urine Auto 0.2 mg/dL 0 .0-2.0 mg/dL [facility]: [address] [facility] Normal Bilirubin, Urine Auto negative negat socrates [facility]: 8[address] [facility] Normal Nitrite, Urine Auto negative negativ e [facility]: [address] [facility] High Leukocyte Esterase, Urine Auto 1+ negative [facility]: [address] [facility] Normal Blood, Urine Blood negative negative [facility]: 8[address] [facility] Normal WBC, Urine Auto 2 /hpf 0-3 /hpf [facility]: [address] [facility] Normal RBC, Urine Auto 1 /hpf 0-3 /hpf [facility]: 8[address] [facility] Normal Bacteria, Urine Auto negative negati ve [facility]: 8[address] [facility] Normal Squamous Epithelial Cell Ur AU 2 /hp f 0-6 /hpf [facility]: 8[address] [facility] Normal Mucus, Urine small negative [facility]: 8[address] [facility] Normal Hyaline Cast, Urine Auto 0 /lpf 0-1 /lpf [facility]: [address] [facility] 08/09/2021 Protein, Total, Urine High Total Protein,random Urine 22.8 mg/dL 0.0-12.0 mg/dL [facility] nter: 8[address] [facility] 08/09/2021 CMP, Serum or Plasma Normal Glucose, Fastin g 100 mg/dL 70-100 mg/dL [facility]: 83 0 [facility] Normal Blood Urea Nitrogen 7 mg/dL 7-18 mg/ dL [facility]: 8[address] [facility] Normal Creatinine for GFR 0.64 mg/dL 0.55-1 .30 mg/dL [facility]: 0 [facility] Normal Glomerular Filtration Rate > 60.0 >6 0 [facility]: [address] [facility] Normal Sodium Level 142 mEq/L 136-145 mEq/L [facility]: 8[address] [facility] Normal Potassium Serum 4.3 mEq/L 3.5-5.1 mE q/L [facility]: 8[address] [facility] High Chloride Level 109 mEq/L 98-107 mEq/ L [facility]: [address] [facility] Normal Carbon Dioxide Level 27 mEq/L 21-32 mEq/L [facility]: 8[address] [facility] Low Anion Gap 6 mEq/L 8-16 mEq/L [facility]: 8[address] [facility] Normal Calcium Level 8.7 mg/dL 8.5-10.1 mg/ dL [facility]: 8[address] [facility] Normal AST/SGOT 7 U/L 7-37 U/L [facility]: 8[address] [facility] Normal ALT/SGPT 18 U/L 12-78 U/L [facility]: 8[address] [facility] High Alkaline Phosphatase 118 U/L 45-117 U/L [facility]: 0 [facility] Low Bilirubin,total 0.1 mg/dL 0.2-1.0 mg /dL [facility]: 8[address] [facility] Low Total Protein 6.1 gm/dL 6.4-8.2 gm/d L [facility]: 8[address] [facility] Low Albumin 3.1 gm/dL 3.2-5.2 gm/dL Drea l [facility]: [address] [place] [address] Low Albumin/globulin Ratio 1.0 1.2-2. 2 [facility]: [address] [facility] 08/09/2021 C3 (Complement), Serum or Plasma Normal Complement C3 167 mg/dL 90-180 mg/dL [facility] nter: 0 [facility] 08/09/2021 C4 (Complement), Serum or Plasma High Com plement C4 44 mg/dL 10-40 mg/dL [facility]: 83 0 [facility] 08/09/2021 C Reactive Protein, QN, Serum or Plasma High C Reactive Protein Quantitativ 2.21 mg/dL 0.00-0.30 mg/dL [facility]: [address] [place] [address] 08/09/2021 CBC W/ Auto Diff High White Blood Count 10.6 10 4.0-10.0 10 [facility]: [address] [place] [address] Low Red Blood Count 3.87 10 4.00-5.40 10 [facility]: [address] [place] [address] Low Hemoglobin 9.1 g/dL 12.0-15.5 g/dL F inal [facility]: [address] [place] [address] Low Hematocrit 30.2 % 36.0-47.0 % [facility]: [address] [place] [address] Low Mean Corpuscular Volume 78.0 fL 80.0 -96.0 fL [facility]: [address] [place] [address] Low Mean Corpuscular Hemoglobin 23.5 pg 27.0-33.0 pg [facility]: [address] [place] [address] Low Mean Corpuscular HGB Conc 30.1 g/dL 32.0-36.5 g/dL [facility]: 8[address] [facility] High Red Cell Distribution Width 15.4 % 1 1.5-14.5 % [facility]: 8[address] [facility] Normal Platelet Count, Automated 425 10 150 -450 10 [facility]: 8[address] [facility] Normal Neutrophils % 63.9 % 36.0-66.0 % [facility]: 8[address] [facility] Normal Lymph % 25.7 % 24.0-44.0 % [facility]: 8[address] [facility] Normal Dickenson % 5.5 % 2.0-8.0 % [facility]: [address] [place] [address] High Eos % 3.8 % 0.0-3.0 % [facility]: 0 [facility] Normal Baso % 0.5 % 0.0-1.0 % [facility]: 8[address] [facility] Normal Immature Granulocyte % 0.6 % 0-3.0 % [facility]: [address] [place] [address] Normal Nucleated Red Blood Cell % 0.0 % 0- 0 % [facility]: 0 [facility] Normal Neutrophils # 6.8 10 1.5-8.5 10 [facility]: [address] [facility] Normal Lymph # 2.7 10 1.5-5.0 10 [facility]: [address] [facility] Normal Dickenson # 0.6 10 0.0-0.8 10 [facility]: 0 [facility] Normal Eos # 0.4 10 0.0-0.5 10 [facility]: 0 [facility] Normal Baso # 0.1 10 0.0-0.2 10 [facility]: 0 [facility] 08/09/2021 ESR (Erythrocyte Sedimentation Rate), Blood Hig h Erythrocyte Sedimentation Rate 59 mm/HR 0-20 mm/HR [facility] Center: [address] [place] [address] 08/07/2021 CBC W/ Auto Diff Normal White Blood Count 9.2 10 4.0-10.0 10 [facility]: 8[address] [facility] Normal Red Blood Count 4.47 10 4.00-5.40 10 [facility]: 830 [facility] Low Hemoglobin 10.6 g/dL 12.0-15.5 g/dL [facility]: [address] [place] [address] Low Hematocrit 35.0 % 36.0-47.0 % [facility]: [address] [place] [address] Low Mean Corpuscular Volume 78.3 fL 80.0 -96.0 fL [facility]: [address] [place] [address] Low Mean Corpuscular Hemoglobin 23.7 pg 27.0-33.0 pg [facility]: [address] [place] [address] Low Mean Corpuscular HGB Conc 30.3 g/dL 32.0-36.5 g/dL [facility]: 8[address] [facility] High Red Cell Distribution Width 15.3 % 1 1.5-14.5 % [facility]: [address] [place] [address] Normal Platelet Count, Automated 362 10 150 -450 10 [facility]: 830 [facility] Normal Neutrophils % 64.3 % 36.0-66.0 % Fin [facility]: 8[address] [facility] Normal Lymph % 25.2 % 24.0-44.0 % [facility]: 8[address] [facility] Normal Dickenson % 6.0 % 2.0-8.0 % Final [facility]: 8[address] [facility] High Eos % 3.7 % 0.0-3.0 % [facility]: 8[address] [facility] Normal Baso % 0.5 % 0.0-1.0 % [facility]: 8[address] [facility] Normal Immature Granulocyte % 0.3 % 0-3.0 % [facility]: 830 [facility] Normal Nucleated Red Blood Cell % 0.0 % 0- 0 % [facility]: 8[address] [facility] Normal Neutrophils # 5.9 10 1.5-8.5 10 [facility]: 8[address] [facility] Normal Lymph # 2.3 10 1.5-5.0 10 [facility]: 8[address] [facility] Normal Dickenson # 0.6 10 0.0-0.8 10 [facility]: 8[address] [facility] Normal Eos # 0.3 10 0.0-0.5 10 [facility]: 8[address] [facility] Normal Baso # 0.1 10 0.0-0.2 10 [facility]: 8[address] [facility] 08/07/2021 BMP, Serum or Plasma Normal Glucose, Fastin g 92 mg/dL 70-100 mg/dL [facility]: 83 0 [facility] Normal Blood Urea Nitrogen 11 mg/dL 7-18 mg /dL [facility]: 0 [facility] Normal Creatinine for GFR 0.80 mg/dL 0.55-1 .30 mg/dL [facility]: 0 [facility] Normal Glomerular Filtration Rate > 60.0 >6 0 [facility]: 8[address] [facility] Normal Sodium Level 144 mEq/L 136-145 mEq/L [facility]: 0 [facility] Normal Potassium Serum 4.0 mEq/L 3.5-5.1 mE q/L [facility]: 8[address] [facility] High Chloride Level 113 mEq/L 98-107 mEq/ L [facility]: 0 [facility] Normal Carbon Dioxide Level 24 mEq/L 21-32 mEq/L [facility]: 0 [facility] Low Anion Gap 7 mEq/L 8-16 mEq/L [facility]: 0 [facility] Normal Calcium Level 8.8 mg/dL 8.5-10.1 mg/ dL [facility]: 8[address] [facility] 08/07/2021 Choriogonadotropin, Quant, Serum or Plasma Norm al HCG, Serum Quantitative < 1.0 mIU/mL [facility]: [address] [place] [address] 08/07/2021 Type + Screen, Serum Normal Blood Type O posit socrates [facility]: [address] [place] [address] Normal Ab Screen (Indirect Colin)vis negat socrates [facility]: [address] [place] [address] 08/07/2021 [place] ENDOCERVIX No observation recorded. [facility]: [address] [place] [address] 08/06/2021 CBC W/ Auto Diff Results [facility] Hospital: [address] [place] [address] Wbc 9.5 10^3/uL 4.2 - 11.0 10^3/uL [facility] Hospital: [address] [place] [address] Low Rbc 3.73 10^6/uL 4.20 - 5.40 10^6/u L [facility] Hospital: [address] [place] [address] Hemoglobin 9.0 g/dL 12.0 - 16.0 g/dL [facility] Hospital: [address] [place] [address] Hematocrit 28.6 % 37.0 - 47.0 % [facility]: [address] [place] [address] Mcv 76.7 fL 81.0 - 101 fL Ca [facility] Hospital: [address] [place] [address] Mch 24.1 pg 27.0 - 34.0 pg [facility]: [address] [place] [address] Mchc 31.5 g/dL 31.0 - 36.0 g/dL [facility] Hospital: [address] [place] [address] Rdw 15.0 % 11.5 - 14.5 % [facility]: [address] [place] [address] Platelets 367 10^3/uL 150 - 450 10^3 /uL [facility]: [address] [place] [address] Mpv 9.6 fL 7.4 - 10.4 fL [facility]: [address] [place] [address] Neut 64.6 % 37.0 - 80.0 % [facility] Hospital: [address] [place] [address] Lymph 26.4 % 25.0 - 40.0 % [facility]: [address] [place] [address] Dickenson 5.1 % 3.0 - 8.0 % [facility]: [address] [place] [address] Eos 3.2 % 0.0 - 7.0 % [facility]: [address] [place] [address] Baso 0.4 % 0.0 - 2.5 % [facility] age [facility] Hospital: [address] [place] [address] High %Ig 0.3 % 0.0 - 0.0 % [facility]: [address] [place] [address] %Nrbc 0.0 % 0.0 - 0.0 % [facility] Hospital: [address] [place] [address] #Neut 6.14 10^3/uL 2.00 - 6.90 10^3/ uL [facility] Hospital: [address] [place] [address] #Lymph 2.51 10^3/uL 0.60 - 3.40 10^3 /uL [facility] Hospital: [address] [place] [address] #Dickenson 0.48 10^3/uL 0.00 - 0.90 10^3/ uL [facility] Hospital: [address] [place] [address] #Eos 0.30 10^3/uL 0.00 - 0.70 10^3/u L [facility] Hospital: [address] [place] [address] #Baso 0.04 10^3/uL 0.00 - 0.20 10^3/ uL [facility] Hospital: [address] [place] [address] #Ig 0.03 10^3/uL 0.00 - 0.10 10^3/u L [facility] Hospital: [address] [place] [address] #Nrbc 0.00 10^3/uL 0.00 - 0.00 10^3/ uL [facility] Hospital: [address] [place] [address] Manual Diff not indicated [facility] Hospital: [address] [place] [address] RBC Morph not indicated [facility] Hospital: [address] [place] [address] 08/06/2021 CMP, Serum or Plasma Results Final [facility] Hospital: [address], [place] Sodium 141 mEq/L 134 - 153 mEq/L [facility] Hospital: [address] [place] [address], [place] Low Potassium 3.5 mEq/L 3.6 - 5.0 mEq/L [facility] Hospital: [address] [place] [address], [place] High Chloride 108 mEq/L 98 - 107 mEq/L [facility] Hospital: [address] [place] [address], [place] Co2 25 mEq/L 22 - 30 mEq/L C [facility] Hospital: [address] [place] [address], [place] High Glucose 103 mg/dL 70 - 99 mg/dL [facility] Hospital: [address] [place] [address], [place] Bun 7 mg/dL 7 - 21 mg/dL [facility]: [address] [place] [address], [place] Creatinine 0.8 mg/dL 0.7 - 1.5 mg/dL [facility] Hospital: [address] [place] [address] BUN/creat 9 8 - 27 [facility] Hospital: [address] [place] [address] Total Protein 6.3 g/dL 6.3 - 8.2 g/d L [facility] Hospital: [address] [place] [address], [place] Albumin 4.0 g/dL 3.9 - 5.0 g/dL [facility] Hospital: [address] [place] [address] Low Globulin 2.3 gm/dL 2.4 - 3.2 gm/dL [facility] Hospital: [address] [place] [address] A/g Ratio 1.7 0.8 - 2.0 Ca [facility] Hospital: [address] [place] [address] Calcium 9.1 mg/dL 8.4 - 10.2 mg/dL [facility] Hospital: [address] [place] [address] Total Bili <0.7 mg/dL 0.2 - 1.3 mg/d L [facility] Hospital: [address] [place] [address] Alkaline Phos 114 U/L 38 - 126 U/L [facility] Hospital: [address] [place] [address] SGOT/AST 11 U/L 5 - 40 U/L Ca [facility] Hospital: [address] [place] [address] SGPT/ALT 10 U/L 7 - 56 U/L Ca [facility] Hospital: [address] [place], [place] [address]ge Anion Gap 8.0 mmol/L 8.0 - 16.0 mmol /L [facility] Hospital: [address] [facility] Age 31 yrs [facility] Hospital: [address] [facility] Non-aa GFR >60 mL/min [facility] Hospital: [address] [facility] Afr Amer GFR >60 mL/min [facility] Hospital: [address] [facility] 07/31/2021 UA W/ Reflex to Culture Normal Appearance, Urine Rfx clear clear [facility]: 83 0 [facility] Normal Color, Urine Rfx colorless yellow Fi nal [facility]: [address] [facility] Normal pH,urine Rfx 7.0 units 5.0-9.0 units [facility]: 830 [facility] Normal Specific [place] Ur Auto Rfx 1.002 1.002-1.035 [facility]: 8[address] [facility] Normal Protein, Urine Auto Rfx negative mg/ dL negative mg/dL [facility]: 830 [facility] Normal Glucose, Urine (UA) Auto Rfx n egative mg/dL negative mg/dL [facility]: 830 [facility] Normal Ketone, Urine Auto Rfx negative mg/d L negative mg/dL [facility]: 8[address] [facility] Normal Urobilinogen, Urine Auto Rfx 0.2 mg/ dL 0.0-2.0 mg/dL [facility]: [address] [facility] Normal Bilirubin, Urine Auto Rfx negative n egative [facility]: 8[address] [facility] Normal Nitrite, Urine Auto Rfx negative neg ative [facility]: 8[address] [facility] Normal Leukocyte Esterase Ur Auto Rfx negat socrates negative [facility]: 8[address] [facility] High Blood, Urine Blood Rfx 2+ negati ve [facility]: [address] [facility] Normal WBC, Urine Auto Rfx 0 /hpf 0-3 /hpf [facility]: [address] [facility] Normal RBC, Urine Auto Rfx 1 /hpf 0-3 /hpf [facility]: 8[address] [facility] High Bacteria, Urine Auto Rfx 1+ nega tive [facility]: 830 [facility] Normal Squam Epithelial Cell Ur Aurfx 2 /hp f 0-6 /hpf [facility]: 830 [facility] Normal Hyaline Cast, Urine Auto Rfx 0 /lpf 0-1 /lpf [facility]: 830 [facility] 07/31/2021 CBC W/ Auto Diff Normal White Blood Count 8.4 10 4.0-10.0 10 [facility]: 8[address] [facility] Normal Red Blood Count 4.49 10 4.00-5.40 10 [facility]: 830 [facility] Low Hemoglobin 10.7 g/dL 12.0-15.5 g/dL [facility]: [address] [facility] Low Hematocrit 34.9 % 36.0-47.0 % [facility]: 0 [facility] Low Mean Corpuscular Volume 77.7 fL 80.0 -96.0 fL [facility]: [address] [place] [address] Low Mean Corpuscular Hemoglobin 23.8 pg 27.0-33.0 pg [facility]: 0 [facility] Low Mean Corpuscular HGB Conc 30.7 g/dL 32.0-36.5 g/dL [facility]: [address] [facility] High Red Cell Distribution Width 15.4 % 1 1.5-14.5 % [facility]: 0 [facility] Normal Platelet Count, Automated 303 10 150 -450 10 [facility]: 830 [facility] High Neutrophils % 66.6 % 36.0-66.0 % [facility]: [address] [facility] Low Lymph % 22.6 % 24.0-44.0 % Final [facility]: 8[address] [facility] Normal Dickenson % 5.5 % 2.0-8.0 % Final [facility]: [address] [facility] High Eos % 4.6 % 0.0-3.0 % [facility]: [address] [facility] Normal Baso % 0.5 % 0.0-1.0 % Final [facility]: 830 [facility] Normal Immature Granulocyte % 0.2 % 0-3.0 % [facility]: 8[address] [facility] Normal Nucleated Red Blood Cell % 0.0 % 0- 0 % [facility]: 8[address] [facility] Normal Neutrophils # 5.6 10 1.5-8.5 10 [facility] 8[address] [facility] Normal Lymph # 1.9 10 1.5-5.0 10 [facility]: [address] [facility] Normal Dickenson # 0.5 10 0.0-0.8 10 [facility]: [address] [facility] Normal Eos # 0.4 10 0.0-0.5 10 [facility]: [address] [facility] Normal Baso # 0.0 10 0.0-0.2 10 [facility]: 8[address] [facility] 07/31/2021 Istat B-HCG Normal Istat B-HCG < 5.[address] [facility]: [address] [facility] 07/31/2021 Istat Chem8+ Panel Low Istat HCT 35.0 % 38. 0-51.0 % [facility]: 8[address] [facility] High Istat Glucose 123 mg/dL 70-105 mg/dL [facility]: 8[address] [facility] Normal Istat Sodium 138 mEq/L 136-145 mEq/L [facility]: 8[address] [facility] Normal Istat Potassium 4.3 mEq/L 3.5-5.1 mE q/L Final [facility]: 0 [facility] Normal Istat Ca++ 4.6 mg/dL 4.5-5.3 mg/dL F [facility]: 8[address] [facility] Normal Istat Chloride 105 mEq/L 98-109 mEq/ L [facility]: [address] [place] [address] Normal Istat CO2 24.0 mm/L 23.0-27.0 mm/L [facility]: 8[address] [facility] Normal Istat BUN 14 mg/dL 8-26 mg/dL [facility]: [address] [place] [address] Normal Istat Creatinine 0.7 mg/dL 0.6-1.3 m g/dL [facility]: [address] [place] [address] 07/31/2021 [place] ENDOCERVIX No observation recorded. [facility]: [address] [place] [address] 07/31/2021 PT/INR High Prothrombin Time 23.2 secon ds 12.7-14.5 seconds [facility]: [address] [place] [address] Normal Inr 2.01 [facility]: [address] [place] [address] 07/31/2021 Partial Thromboplastin Time High Partial Thromboplastin Time 63.9 seconds 25.9-37.0 seconds [facility] nter: [address] [place] [address] 07/31/2021 Lactic Acid, Serum or Plasma Normal Lactic Acid Sepsis Protocol 1.4 mmol/L 0.4-2.0 mmol/L [facility]: [address] [place] [address] 07/31/2021 Hepatic Function Panel, Serum Normal AST/SG OT 17 U/L 7-37 U/L [facility]: [address] [place] [address] Normal ALT/SGPT 24 U/L 12-78 U/L [facility]: [address] [place] [address] Normal Alkaline Phosphatase 117 U/L 45-117 U/L [facility]: [address] [place] [address] Low Bilirubin,total 0.1 mg/dL 0.2-1.0 mg /dL [facility]: [address] [facility] Normal Bilirubin,direct < 0.1 mg/dL 0.0-0.2 mg/dL [facility]: [address] [facility] Normal Total Protein 6.4 gm/dL 6.4-8.2 gm/d L [facility]: [address] [facility] Normal Albumin 3.2 gm/dL 3.2-5.2 gm/dL Drea l [facility]: [address] [facility] Low Albumin/globulin Ratio 1.0 1.2-2. 2 [facility]: 0 [facility] 07/31/2021 Amylase, Serum or Plasma Normal Amylase 40 U/L 25-115 U/L [facility]: 0 [facility] 07/31/2021 Lipase, Serum or Plasma Normal Lipase 91 U/L 7 3-393 U/L [facility]: [address] [facility] 07/31/2021 Chlamydia, GC & Trich Amp Normal Ch lamydia DNA Amplification negative negative [facility] Ce nter: 8[address] [facility] Normal GC DNA Amplification negative negati ve [facility]: 8[address] [facility] Normal Trichomonas Vaginalis (Amp) not dete cted negative [facility]: 8[address] [facility] 07/31/2021 Influenza A/B RSV Covid Amp Normal Influenza a Amplification negative negative [facility] Ce nter: [address] [facility] Normal Influenza B Amplification negative n egative [facility]: [address] [facility] Normal RSV Amplification negative negative [facility]: [address] [facility] Normal Sars Covid-19 Amplification negative negative [facility]: [address] [facility] 07/31/2021 TSH, Serum or Plasma Normal Thyroid Stimulating Hormone 0.444 uIU/mL 0.358-3.740 uIU/mL [facility] Ce nter: 8[address] [facility] 07/31/2021 T4, Free, Serum Low Free T4 0.66 NG/dL 0.76 -1.46 NG/dL [facility]: 0 [facility] 07/31/2021 Type + Screen, Serum Normal Blood Type O posit socrates [facility]: [address] [facility] Normal Ab Screen (Indirect Colin)vis negat socrates [facility]: [address] [facility] 07/31/2021 Cardiovascular Assessment Panel, Serum Normal CPK Creatine Phosphokinase 67 U/L 26-192 U/L [facility]: [address] [facility] Normal CK-mb Value Mass < 1.0 NG/mL <3.6 NG /mL [facility]: 0 [facility] Normal mb/CK Relative Index 1.49 < or =4 [facility]: 0 [facility] Normal Troponin I < 0.02 NG/mL < 0.10 NG/mL [facility]: [address] [facility] 07/31/2021 Ethanol, Blood Normal Ethyl Alcohol (Ethano l) < 0.003 % 0.000- 0.010 % [facility]: 83 0 [facility] 07/31/2021 Salicylate, Quantitative, Serum Low Salicylate Level < 1.7 mg/dL 5.0-30.0 mg/dL [facility] nter: 8[address] [facility] 07/31/2021 Acetaminophen, Serum Low Acetaminophen L evel < 2.0 ug/mL 10.0- 30.0 ug/mL [facility]: 83 0 [facility] 07/31/2021 CBC W/ Auto Diff Normal White Blood Count 8.5 10 4.0-10.0 10 [facility]: 0 [facility] Normal Red Blood Count 4.04 10 4.00-5.40 10 [facility]: 0 [facility] Low Hemoglobin 9.7 g/dL 12.0-15.5 g/dL F inal [facility]: [address] [facility] Low Hematocrit 31.4 % 36.0-47.0 % [facility]: 8[address] [facility] Low Mean Corpuscular Volume 77.7 fL 80.0 -96.0 fL Final [facility]: [address] [place] [address] Low Mean Corpuscular Hemoglobin 24.0 pg 27.0-33.0 pg Final [facility]: 0 [facility] Low Mean Corpuscular HGB Conc 30.9 g/dL 32.0-36.5 g/dL Final [facility]: [address] [place] [address] High Red Cell Distribution Width 15.3 % 1 1.5-14.5 % [facility]: [address] [place] [address] Normal Platelet Count, Automated 302 10 150 -450 10 [facility]: 0 [facility] Normal Neutrophils % 59.7 % 36.0-66.0 % [facility]: [address] [facility] Normal Lymph % 28.8 % 24.0-44.0 % Final [facility]: [address] [facility] Normal Dickenson % 5.9 % 2.0-8.0 % Final [facility]: 0 [facility] High Eos % 4.7 % 0.0-3.0 % [facility]: 0 [facility] Normal Baso % 0.5 % 0.0-1.0 % Final [facility]: [address] [facility] Normal Immature Granulocyte % 0.4 % 0-3.0 % [facility]: [address] [facility] Normal Nucleated Red Blood Cell % 0.0 % 0- 0 % [facility]: 0 [facility] Normal Neutrophils # 5.1 10 1.5-8.5 10 [facility]: [address] [facility] Normal Lymph # 2.4 10 1.5-5.0 10 [facility]: [address] [facility] Normal Dickenson # 0.5 10 0.0-0.8 10 [facility]: [address] [facility] Normal Eos # 0.4 10 0.0-0.5 10 [facility]: [address] [facility] Normal Baso # 0.0 10 0.0-0.2 10 [facility]: [address] [facility] 07/31/2021 Drug Screen, Urine Normal Amphetamines Leve l Urine negative negative [facility]: 83 0 [facility] Normal Barbiturates Urine negative negative [facility]: [address] [facility] Normal Benzodiazepines Urine negative negat socrates [facility]: [address] [facility] Normal Cannabinoids Urine negative negative [facility]: [address] [facility] Normal Cocaine Metabolite Urine negative ne gative [facility]: [address] [facility] Normal Methadone Urine negative negative Fi nal [facility]: [address] [facility] High Opiates Urine positive negative Drea l [facility]: [address] [facility] Normal Phencyclidine Urine negative negativ e [facility]: [address] [facility] 07/29/2021 CT + NG RNA, PCR, Unspecified Specimen Urine Normal Chlamydia Trachomatis RNA, Tma, Urogenital not detected not detected Final [facility]: [address] [facility] Urine Normal Neisseria Gonorrhoeae RNA, Tma, Urogenital not detected not detected Final [facility] [address] [facility] Urine Comment Final [facility]: [address], [place] 07/29/2021 Test, Urine Urine clean catch Hcg n egative [facility]: [address] [facility] [address], [place] 07/25/2021 Thrombosis Prof ([id number]) Normal Homocyste ine 6.5 umol/L . umol/L [facility]: 83 0 [facility] Normal Factor VIII Activity 91 % . % F inal [facility]: [address] [facility] Normal Antithrombin Activity 127 % . % [facility]: [address] [facility] Normal Prt C Activity(chromogenic) 160 % . % [facility]: [address] [facility] Normal Protein S Antigen, Free 61 % . % [facility]: [address] [facility] Normal Aptt 27.3 sec . sec [facility]: [address] [facility] Normal APTT 1:1 Tie Layer tnp sec . sec [facility]: [address] [facility] Normal APTT 1:1 Saline tnp sec . sec [facility]: [address] [facility] Normal Lac Interpretation . Fin [facility]: [address] [facility] Normal Act Prt C Resist W/fv Defic 2.2 rati o . ratio [facility]: [address] [facility] High Drvvt Screen Seconds 72.2 sec . sec [facility]: [address] [facility] Normal Drvvt Confirm Seconds 45.1 sec . sec [facility]: [address] [facility] High Drvvt Ratio 1.4 ratio . ratio [facility]: [address] [facility] Normal Hexagonal Phospholipid Neutal 7 sec . sec [facility]: [address] [facility] Normal Anticardiolipin Ab, IgG <10 gpl . gp l [facility]: [address] [facility] Normal Anticardiolipin Ab, IgM 19 mpl . mpl [facility]: [address] [facility] Normal Beta-2 Glycoprotein I, IgG <10 sgu . sgu [facility]: [address] [facility] Normal Beta-2 Glycoprotein I, IgM <10 smu . smu [facility]: [address] [facility] Normal Beta-2 Glycoprotein I, IgA <10 braden . braden [facility]: [address] [facility] Normal Factor II Gene Mutation Result tnp . [facility]: [address] [facility] Normal Factor II Gene Interpretation tnp . [facility]: [address] [facility] Normal Factor II Gene Methodology . [facility]: [address] [facility] Normal Factor II Gene Comments . [facility]: [address] [facility] 07/25/2021 Thrombosis Prof ([id number]) Normal Homocyste ine 6.5 umol/L . umol/L [facility]: 83 0 [facility] Normal Factor VIII Activity 91 % . % F inal [facility]: [address] [facility] Normal Antithrombin Activity 127 % . % [facility]: [address] [facility] Normal Prt C Activity(chromogenic) 160 % . % [facility]: [address] [facility] Normal Protein S Antigen, Free 61 % . % [facility]: [address] [facility] Normal Aptt 27.3 sec . sec [facility]: [address] [facility] Normal APTT 1:1 Tie Layer tnp sec . sec [facility]: [address] [facility] Normal APTT 1:1 Saline tnp sec . sec [facility]: 8[address] [facility] Normal Lac Interpretation . Fin [facility]: [address] [facility] Normal Act Prt C Resist W/fv Defic 2.2 rati o . ratio [facility]: 8[address] [facility] High Drvvt Screen Seconds 72.2 sec . sec [facility]: [address] [facility] Normal Drvvt Confirm Seconds 45.1 sec . sec [facility]: [address] [facility] High Drvvt Ratio 1.4 ratio . ratio [facility]: [address] [facility] Normal Hexagonal Phospholipid Neutal 7 sec . sec [facility]: [address] [facility] Normal Anticardiolipin Ab, IgG <10 gpl . gp l [facility]: [address] [facility] Normal Anticardiolipin Ab, IgM 19 mpl . mpl [facility]: [address] [facility] Normal Beta-2 Glycoprotein I, IgG <10 sgu . sgu [facility]: [address] [facility] Normal Beta-2 Glycoprotein I, IgM <10 smu . smu [facility]: [address] [facility] Normal Beta-2 Glycoprotein I, IgA <10 braden . braden [facility]: [address] [facility] Normal Factor II Gene Mutation Result tnp . [facility]: [address] [facility] Normal Factor II Gene Interpretation tnp . [facility]: [address] [facility] Normal Factor II Gene Methodology . [facility]: [address] [facility] Normal Factor II Gene Comments . [facility]: [address] [facility] 07/08/2021 Lactic Acid Level, Lactate Normal L actic Acid Level, Lactate 1.6 mmol/L 0.4-2.0 mmol/L [facility] nter: 8[address] [facility] 07/08/2021 UA W/ Reflex to Culture Normal Appearance, Urine Rfx hazy clear [facility]: 83 0 [facility] Normal Color, Urine Rfx straw yellow [facility]: [address] [facility] Normal pH,urine Rfx 8.0 units 5.0-9.0 units [facility]: 8[address] [facility] Normal Specific [place] Ur Auto Rfx 1.014 1.002-1.035 [facility] Center: 8[address] [facility] Normal Protein, Urine Auto Rfx negative mg/ dL negative mg/dL [facility]: [address] [facility] Normal Glucose, Urine (UA) Auto Rfx n egative mg/dL negative mg/dL [facility]: [address] [facility] Normal Ketone, Urine Auto Rfx negative mg/d L negative mg/dL [facility]: [address] [facility] Normal Urobilinogen, Urine Auto Rfx 0.2 mg/ dL 0.0-2.0 mg/dL [facility]: [address] [facility] Normal Bilirubin, Urine Auto Rfx negative n egative [facility]: [address] [facility] Normal Nitrite, Urine Auto Rfx negative neg ative [facility]: [address] [facility] Normal Leukocyte Esterase Ur Auto Rfx negat socrates negative [facility]: [address] [facility] High Blood, Urine Blood Rfx 1+ negati ve [facility]: [address] [facility] Normal WBC, Urine Auto Rfx 2 /hpf 0-3 /hpf [facility]: [address] [facility] Normal RBC, Urine Auto Rfx 2 /hpf 0-3 /hpf [facility]: [address] [facility] Normal Bacteria, Urine Auto Rfx negative ne gative [facility]: [address] [facility] Normal Squam Epithelial Cell Ur Aurfx 5 /hp f 0-6 /hpf [facility]: [address] [facility] Normal Hyaline Cast, Urine Auto Rfx 0 /lpf 0-1 /lpf [facility]: [address] [facility] 07/08/2021 Cbc High White Blood Count 18.9 10 4.0-10 .0 10 [facility]: [address] [facility] Low Red Blood Count 3.72 10 4.00-5.40 10 [facility]: [address] [facility] Low Hemoglobin 9.2 g/dL 12.0-15.5 g/dL F inal [facility]: [address] [facility] Low Hematocrit 29.3 % 36.0-47.0 % [facility]: 0 [facility] Low Mean Corpuscular Volume 78.8 fL 80.0 -96.0 fL [facility]: [address] [facility] Low Mean Corpuscular Hemoglobin 24.7 pg 27.0-33.0 pg [facility]: [address] [facility] Low Mean Corpuscular HGB Conc 31.4 g/dL 32.0-36.5 g/dL [facility]: 0 [facility] High Red Cell Distribution Width 15.6 % 1 1.5-14.5 % [facility]: 0 [facility] Normal Platelet Count, Automated 391 10 150 -450 10 [facility]: [address] [facility] Normal Nucleated Red Blood Cell % 0.0 % 0- 0 % [facility]: [address] [facility] 07/08/2021 BMP, Serum or Plasma High Glucose, Fastin g 115 mg/dL 70-100 mg/dL [facility]: 83 0 [facility] Normal Blood Urea Nitrogen 10 mg/dL 7-18 mg /dL [facility]: [address] [place] [address] Normal Creatinine for GFR 0.67 mg/dL 0.55-1 .30 mg/dL [facility]: 0 [facility] Normal Glomerular Filtration Rate > 60.0 >6 0 [facility]: [address] [facility] Normal Sodium Level 142 mEq/L 136-145 mEq/L [facility]: 0 [facility] D Potassium Serum 4.8 mEq/L 3.5-5.1 mE q/L [facility]: 0 [facility] High Chloride Level 109 mEq/L 98-107 mEq/ L [facility]: [address] [facility] Normal Carbon Dioxide Level 25 mEq/L 21-32 mEq/L [facility]: [address] [facility] Normal Anion Gap 8 mEq/L 8-16 mEq/L [facility]: 0 [facility] Normal Calcium Level 8.8 mg/dL 8.5-10.1 mg/ dL [facility]: 0 [facility] 07/08/2021 Hepatic Function Panel, Serum Normal AST/SG OT 15 U/L 7-37 U/L [facility]: 0 [facility] Normal ALT/SGPT 41 U/L 12-78 U/L [facility]: [address] [place] [address] Normal Alkaline Phosphatase 104 U/L 45-117 U/L [facility]: [address] [place] [address] Low Bilirubin,total 0.1 mg/dL 0.2-1.0 mg /dL [facility]: [address] [place] [address] Normal Bilirubin,direct < 0.1 mg/dL 0.0-0.2 mg/dL [facility]: [address] [place] [address] Low Total Protein 6.1 gm/dL 6.4-8.2 gm/d L [facility]: [address] [place] [address] Low Albumin 3.0 gm/dL 3.2-5.2 gm/dL [facility]: [address] [place] [address] Low Albumin/globulin Ratio 1.0 1.2-2. 2 [facility]: [address] [place] [address] 07/07/2021 Istat ABG High Istat pH 7.473 units 7.350-7. 450 units [facility]: [address] [place] [address] Normal Istat pCO2 38.4 mmHg 35.0-45.0 mmHg [facility]: [address] [place] [address] Low Istat pO2 70.0 mmHg 80-105 mmHg [facility]: [address] [place] [address] High Istat TCO2 29.0 mmol/L 23.0-27.0 mmo l/L [facility]: [address] [place] [address] High Istat HCO3 28.1 mmol/L 22.0-26.0 mmo l/L [facility]: [address] [place] [address] High Istat Base Excess 5.0 mmol/L -2.0-3. 0 mmol/L [facility]: [address] [place] [address] Normal Istat So2 95 % 95-98 % [facility]: 0 [facility] 07/07/2021 CBC W/ Auto Diff High White Blood Count 14.1 10 4.0-10.0 10 [facility]: [address] [facility] Normal Red Blood Count 4.23 10 4.00-5.40 10 [facility]: [address] [facility] Low Hemoglobin 10.3 g/dL 12.0-15.5 g/dL [facility]: [address] [facility] Low Hematocrit 32.7 % 36.0-47.0 % [facility]: [address] [facility] Low Mean Corpuscular Volume 77.3 fL 80.0 -96.0 fL [facility]: [address] [facility] Low Mean Corpuscular Hemoglobin 24.3 pg 27.0-33.0 pg [facility]: [address] [place] [address] Low Mean Corpuscular HGB Conc 31.5 g/dL 32.0-36.5 g/dL [facility]: [address] [facility] High Red Cell Distribution Width 15.2 % 1 1.5-14.5 % [facility]: [address] [facility] Normal Platelet Count, Automated 374 10 150 -450 10 [facility]: [address] [facility] Normal Nucleated Red Blood Cell % 0.0 % 0- 0 % [facility]: [address] [facility] 07/07/2021 Differential Panel, Blood Normal Neutrophil s 56 % 28-66 % [facility]: 8[address] [facility] Normal Lymphocytes 30 % 16-44 % [facility]: [address] [facility] High Monocytes 7 % 0-5 % [facility]: [address] [facility] High Eosinophils 5 % 0-3 % [facility]: [address] [facility] Normal Basophils 1 % 0-1 % [facility]: [address] [facility] Normal Atypical Lymph 1 % 0-5 % [facility]: [address] [facility] Normal Hypochromasia 1+ [facility]: [address] [facility] Normal Anisocytosis 1+ Final [facility]: [address] [facility] Normal Microcytosis 1+ Final [facility]: [address] [facility] Normal Ovalocytes 1+ Final [facility]: 8[address] [facility] Normal Smudge Cells 1+ Final [facility]: 8[address] [facility] Normal Platelet Clumps small amt Fin al [facility]: [address] [facility] 07/07/2021 Platelet Count, Estimate, Blood Normal Platelet Estimate normal normal Final [facility] nter: 830 [facility] 07/07/2021 Influenza A/B RSV Covid Amp Normal Influenza a Amplification negative negative [facility] nter: 830 [facility] Normal Influenza B Amplification negative n egative [facility]: [address] [facility] Normal RSV Amplification negative negative Final [facility]: [address] [facility] Normal Sars Covid-19 Amplification negative negative Final [facility]: [address] [facility] 07/07/2021 Cardiovascular Assessment Panel, Serum Normal CPK Creatine Phosphokinase 45 U/L 26-192 U/L [facility]: [address] [facility] Normal CK-mb Value Mass < 1.0 NG/mL <3.6 NG /mL [facility]: [address] [facility] Normal mb/CK Relative Index 2.22 < or =4 [facility]: 8[address] [facility] Normal Troponin I < 0.02 NG/mL < 0.10 NG/mL [facility]: [address] [facility] 07/07/2021 Hepatic Function Panel, Serum Normal AST/SG OT 15 U/L 7-37 U/L [facility]: 8[address] [facility] Normal ALT/SGPT 30 U/L 12-78 U/L [facility]: [address] [facility] Normal Alkaline Phosphatase 111 U/L 45-117 U/L [facility]: [address] [facility] Low Bilirubin,total 0.1 mg/dL 0.2-1.0 mg /dL [facility]: 0 [facility] Normal Bilirubin,direct < 0.1 mg/dL 0.0-0.2 mg/dL [facility]: 8[address] [facility] Normal Total Protein 6.6 gm/dL 6.4-8.2 gm/d L [facility]: [address] [facility] Normal Albumin 3.2 gm/dL 3.2-5.2 gm/dL Drea l [facility]: [address] [facility] Low Albumin/globulin Ratio 0.9 1.2-2. 2 [facility]: 0 [facility] 07/07/2021 BMP, Serum or Plasma Normal Glucose, Fastin g 97 mg/dL 70-100 mg/dL [facility]: 83 0 [facility] Normal Blood Urea Nitrogen 9 mg/dL 7-18 mg/ dL [facility]: 0 [facility] Normal Creatinine for GFR 0.68 mg/dL 0.55-1 .30 mg/dL [facility]: 0 [facility] Normal Glomerular Filtration Rate > 60.0 >6 0 [facility]: [address] [facility] Normal Sodium Level 141 mEq/L 136-145 mEq/L [facility]: 0 [facility] Low Potassium Serum 3.4 mEq/L 3.5-5.1 mE q/L [facility]: [address] [facility] Normal Chloride Level 105 mEq/L 98-107 mEq/ L [facility]: 0 [facility] Normal Carbon Dioxide Level 28 mEq/L 21-32 mEq/L [facility]: [address] [facility] Normal Anion Gap 8 mEq/L 8-16 mEq/L [facility]: [address] [facility] Normal Calcium Level 8.8 mg/dL 8.5-10.1 mg/ dL [facility]: [address] [facility] 07/07/2021 Drug Screen, Urine Normal Amphetamines Leve l Urine negative negative [facility]: 83 0 [facility] High Barbiturates Urine positive negative [facility]: [address] [facility] High Benzodiazepines Urine positive negat socrates [facility]: 8[address] [facility] Normal Cannabinoids Urine negative negative [facility]: [address] [facility] Normal Cocaine Metabolite Urine negative ne gative [facility]: [address] [facility] Normal Methadone Urine negative negative Fi nal [facility]: [address] [facility] High Opiates Urine positive negative Drea l [facility]: [address] [facility] Normal Phencyclidine Urine negative negativ e [facility]: [address] [facility] 07/07/2021 ESR (Erythrocyte Sedimentation Rate), Blood Hig h Erythrocyte Sedimentation Rate 52 mm/HR 0-20 mm/HR [facility] dical Center: 8[address] [facility] 07/07/2021 D-dimer, Quant, Plasma Normal D-dimer Quant 333.30 NG/mL <500 NG/mL [facility]: 83 0 [facility] 07/07/2021 Lactic Acid, Serum or Plasma Panic High Lactic Acid Sepsis Protocol 4.1 mmol/L 0.4-2.0 mmol/L [facility]: [address] [facility] 07/07/2021 Respiratory Virus Panel NASOPHARYNX No observ ation recorded. [facility]: [address] [facility] 07/07/2021 Magnesium, Serum or Plasma Normal Magnesium Level 1.8 mg/dL 1.8-2.4 mg/dL [facility]: 83 0 [facility] 07/07/2021 Pro BNP (Pro B-type Natriuretic Peptide), Serum or Plasma Normal Nt-pro BNP 30 pg/mL <125 pg/mL [facility] Center: [address] [facility] 07/07/2021 TIBC (Total Iron-binding Capacity), Serum Low Iron (Fe) 25 ug/dL 50-170 ug/dL [facility] nter: 0 [facility] Normal Total Iron Binding Capacity 376 ug/d L 250-450 ug/dL [facility]: 0 [facility] Low Percent Saturation 6.6 % 13.2-45.0 % [facility]: [address] [facility] 07/07/2021 C3 (Complement), Serum or Plasma Normal Complement C3 166 mg/dL 90-180 mg/dL [facility] nter: 8[address] [facility] 07/07/2021 C4 (Complement), Serum or Plasma High Com plement C4 46 mg/dL 10-40 mg/dL [facility]: 83 0 [facility] 07/07/2021 Vitamin B12, Serum Normal Vitamin B12 Level 850 pg/mL 247-911 pg/mL [facility]: 83 0 [facility] 07/07/2021 Folate, Serum Normal Folate 10.6 NG/mL >5.4 NG /mL [facility]: 0 [facility] 07/07/2021 Ferritin, Serum or Plasma Normal Ferritin 19 NG/mL 8-252 NG/mL [facility]: 0 [facility] 07/07/2021 C Reactive Protein, QN, Serum or Plasma High C Reactive Protein Quantitativ 3.58 mg/dL 0.00-0.30 mg/dL [facility] Center: [address] [facility] 07/07/2021 Glucose, Fingerstick, Blood High Bedside Glucose 178 mg/dL 70- 105 mg/dL [facility]: 83 0 [facility] 07/07/2021 Gas Panel, Arterial Blood High ABG pH (Ar terial) 7.468 units 7.350-7.450 units [facility]: 83 0 [facility] Low ABG Partial Pressure CO2 32.8 mmHg 3 5.0-45.0 mmHg [facility]: 0 [facility] Low ABG Partial Pressure O2 61.5 mmHg 75 .0-100.0 mmHg [facility]: [address] [place] [address] Normal ABG Total CO2 24.2 mEq/L 22.0-29.0 m Eq/L [facility]: [address] [place] [address] Normal Abg Hco3 23.2 mEq/L 22.0-26.0 mEq/L [facility]: [address] [place] [address] Normal ABG Base Excess 0.0 -2.0-2.0 Drea l [facility]: [address] [place] [address] Normal ABG Standard HCO3 24.4 mEq/L 22.0-26 .0 mEq/L [facility]: [address] [place] [address] Low ABG O2 Saturation 91.9 % 95.0-99.0 % [facility]: [address] [place] [address] 07/07/2021 Lactic Acid, Serum or Plasma Panic High Lactic Acid Sepsis Protocol 4.8 mmol/L 0.4-2.0 mmol/L [facility]: [address] [place] [address] 07/07/2021 Procalcitonin, Serum Normal Procalcitonin 0.09 [facility]: [address] [place] [address] 07/07/2021 Choriogonadotropin, Quant, Serum or Plasma Norm al HCG, Serum Quantitative < 1.0 mIU/mL [facility]: [address] [place] [address] 07/07/2021 Troponin I, Blood Normal Troponin I < 0.02 NG/mL < 0.10 NG/mL [facility]: [address] [place] [address] 07/07/2021 TSH, Serum or Plasma Normal Thyroid Stimulating Hormone 0.696 uIU/mL 0.358-3.740 uIU/mL [facility] nter: [address] [place] [address] 07/07/2021 T4, Free, Serum Low Free T4 0.65 NG/dL 0.76 -1.46 NG/dL [facility]: [address] [place] [address] 07/07/2021 T3, Total, Serum Low Total T3 49.3 NG/d L 60.0-181.0 NG/dL Final [facility]: 0 [facility] 07/07/2021 Sickle Cell Screen, Qual, Light Microscopy, Blood Normal Sickle Cell Screen negative negative Final [facility]: 0 [facility] 07/07/2021 Lactic Acid Level, Lactate Panic High Lactic Acid Level, Lactate 4.3 mmol/L 0.4-2.0 mmol/L Final [facility]: [address] [place] [address] 07/07/2021 Lactic Acid, Serum or Plasma Panic High Lactic Acid Sepsis Protocol 3.7 mmol/L 0.4-2.0 mmol/L Final [facility]: [address] [place] [address] 07/07/2021 Periph Smear for Path Review Normal Slide R eview report [facility]: [address] [place] [address] Normal Source peripheral smear Final [facility]: [address] [place] [address] Normal Reason for Review atypical lymphs Final [facility]: 0 [facility] 07/07/2021 Mrsa Screen, PCR Normal MRSA PCR Screen no t detected negative [facility]: 0 [facility] 07/07/2021 Culture, Blood BLOOD No observation recorded. [facility]: [address] [place] [address] 07/07/2021 Pathology Request for Service Periph eral Smear-path Review [facility]: 83 0 [facility] 07/07/2021 LDH Lactate Dehydrogenase Normal LD H Lactate Dehydrogenase 245 U/L 84-246 U/L [facility] nter: 830 [facility] 07/07/2021 Acetaminophen, Serum Low Acetaminophen L evel 8.7 ug/mL 10.0- 30.0 ug/mL [facility]: 83 0 [facility] 07/07/2021 Culture, Blood BLOOD No observation recorded. 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, Respiratory Specim en Covid-19 PCR negative negative [facility] ( [facility]): 4 [facility] 07/02/2021 Lactic Acid La 1.1 mmol/L 0.4-2.0 mmo l/L [facility] ([facility]): 4 [facility] 07/02/2021 CMP, Serum or Plasma Glu 100 mg/dL 74- 106 mg/dL [facility] ([facility]): 4 [facility] Bun 9 mg/dL 7-18 mg/dL [facility] ([facility]): 4 [facility] Cre 0.67 mg/dL 0.6-1.0 mg/dL [facility] ([facility]): 4 [facility] Na 141 mmol/L 136-145 mmol/L [facility] ([facility]): 4 [facility] Low K 3.3 mmol/L 3.5-5.1 mmol/L [facility] ([facility]): 4 [facility] Cl 103 mmol/L 98-107 mmol/L [facility] ([facility]): 4 [facility] Co2 27 mmol/L 21-32 mmol/L [facility] ([facility]): 4 [facility] Ca 8.9 mg/dL 8.5-10.1 mg/dL [facility] ([facility]): 4 [facility] Gap 11.0 mmol/L 5-12 mmol/L [facility] ([facility]): 4 [facility] Gfr >90 mL/min [facility] ([facility]): 4 [facility] Low Ast 9 U/L 15-37 U/L Final [facility] ([facility]): 4 [facility] Alt 23 U/L 12-78 U/L Final [facility] ([facility]): 4 [facility] High Alk 119 U/L 46-116 U/L [facility] ([facility]): 4 [facility] Low Tbili 0.1 mg/dL 0.2-1.0 mg/dL [facility] ([facility]): 4 [facility] Tp 6.9 g/dL 6.4-8.2 g/dL Final [facility] ([facility]): 4 [facility] Low Alb 3.1 gm/dL 3.4-5.0 gm/dL [facility] ([facility]): 4 [facility] 07/02/2021 Bnp Bnp 28 pg/mL 0-125 pg/mL [facility] ([facility]): 4 [facility] 07/02/2021 Urine Microscopic High Urbc tntc /hpf 0-3 /h pf [facility] ([facility]): 4 [facility] High UWBC Reflex 0-2 /hpf 0-5 /hpf [facility] ([facility]): 4 [facility] Uec 1+ /hpf 0 /hpf [facility] ([facility]): 4 [facility] High Ub Reflex 1+ none seen Final [facility] ([facility]): 4 [facility] Uyeast present [facility] ([facility]): 4 [facility] 07/02/2021 Urinalysis Complete, Reflex Culture Ucol yellow [facility] ([facility]): 4 [facility] Uapp slighty cloudy Final [facility] ([facility]): 4 [facility] Ugl negative mg/dL negative mg/dL [facility] ([facility]): 4 [facility] Ubil negative negative [facility] ([facility]): 4 [facility] Uket negative mg/dL negative mg/dL [facility] ([facility]): 4 [facility] Sgu 1.010 1.005-1.030 [facility] ([facility]): 4 [facility] High Ubl Reflex 3+(large) negative [facility] ([facility]): 4 [facility] Yimi 6.5 5.0-9.0 Final [facility] ([facility]): 4 [facility] Upro Reflex negative mg/dL negative mg/dL Final [facility] ([facility]): 4 [facility] Uuro normal(0.2-1) mg/dL 0-1 mg/dL F inal [facility] ([facility]): 4 [facility] Unit Reflex negative negative Final [facility] ([facility]): 4 [facility] Ule Reflex negative negative Final [facility] ([facility]): 4 [facility] 07/02/2021 Magnesium, Serum or Plasma mg 2.0 mg/ dL 1.8-2.4 mg/dL Final [facility] ([facility]): 4 [facility] 07/02/2021 Troponin-high Sensitivity Trophs 5.4 NG /L 0-60.4 NG/L [facility] ([facility]): 4 [facility] 07/02/2021 Troponin-high Sensitivity Trophs 4.6 NG /L 0-60.4 NG/L [facility] ([facility]): 4 [facility] 07/02/2021 TORCH Respiratory Panel Tadeno not detected detected not detected Final [facility] ([facility]): 4 [facility] [id number] not detected detected not detected Final [facility] ([facility]): 4 [facility] [facility] [id number] not detected detected not detected Final [facility] ([facility]): 4 [facility] [id number] not detected detected not detected [facility] ([facility]): 4 [facility] [id number] not detected detected not detected [facility] ([facility]): 4 [facility] [id number] not detected detected not detected [facility] ([facility]): 4 [facility] Thummet not detected detected not de tected [facility] ([facility]): 4 [facility] Thumrhino detected detected not dete cted [facility] ([facility]): 4 [facility] Tflua not detected detected not dete cted [facility] ([facility]): 4 [facility] Tflub not detected detected not dete cted [facility] ([facility]): 4 [facility] [id number] not detected detected not detected [facility] ([facility]): 4 [facility] Tparaflu2 not detected detected not detected [facility] ([facility]): 4 [facility] Tparaflu3 not detected detected not detected [facility] ([facility]): 4 [facility] Tparaflu4 not detected detected not detected [facility] ([facility]): 4 [facility] Trsv not detected detected not detec jina [facility] ([facility]): 4 [facility] Tbordpara not detected detected not detected [facility] ([facility]): 4 [facility] Tbord not detected detected not dete cted [facility] ([facility]): 4 [facility] Tchlamypne not detected detected not detected [facility] ([facility]): 4 [facility] Tmycpne not detected detected not de tected [facility] ([facility]): 4 [facility] 07/02/2021 CBC W/ Auto Diff Wbc 8.3 K/mm3 4.0-10. 0 K/mm3 [facility] ([facility]): 4 [facility] Rbc 4.10 M/mm3 4.00-5.50 M/mm3 [facility] ([facility]): 4 [facility] Low Hgb 10.2 gm/dL 12.0-16.0 gm/dL [facility] ([facility]): 4 [facility] Low Hct 30.9 % 36.0-48.8 % Final [facility] ([facility]): 4 [facility] Low Mcv 75.4 fL 80-96 fL [facility] ([facility]): 4 [facility] Low Mch 24.9 pg 27.0-31.0 pg Final [facility] ([facility]): 4 [facility] Mchc 33.0 g/dL 32.0-36.0 g/dL [facility] ([facility]): 4 [facility] High Rdw 14.8 % 10.0-14.5 % [facility] ([facility]): 4 [facility] Plt 336 K/mm3 172-450 K/mm3 [facility] ([facility]): 4 [facility] Mpv 10.2 fL 9.0-13.[address] [facility] ([facility]): 4 [facility] High Gr% 88.9 % 50-80.0 % [facility] ([facility]): 4 [facility] High Ig% 0.4 % 0.0-0.2 % [facility] ([facility]): 4 [facility] Low Ly% 8.8 % 25.0-50.0 % [facility] ([facility]): 4 [facility] Low Mo% 1.8 % 2.0-10.0 % [facility] ([facility]): 4 [facility] Eo% 0.0 % 0-5.0 % [facility] ([facility]): 4 [facility] Ba% 0.1 % 0.0-2.0 % [facility] ([facility]): 4 [facility] Gr# 7.4 K/mm3 2.0-8.00 K/mm3 [facility] ([facility]): 4 [facility] Ig# 0.0 K/mm3 0.0-0.2 K/mm3 [facility] ([facility]): 4 [facility] Low Ly# 0.7 K/mm3 1.0-5.0 K/mm3 [facility] ([facility]): 4 [facility] Mo# 0.2 K/mm3 0.10-1.20 K/mm3 [facility] ([facility]): 4 [facility] Eo# 0.0 K/mm3 0.0-0.5 K/mm3 [facility] ([facility]): 4 [facility] Ba# 0.0 K/mm3 0.0-0.2 K/mm3 [facility] ([facility]): 4 [facility] 07/02/2021 Gas Panel, Venous Blood High Vph 7.44 7.3 1-7.41 [facility] ([facility]): 4 [facility] Low Vpco2 35.1 mmHg 41-51 mmHg Final [facility] ([facility]): 4 [facility] High Vpo2 89 mmHg 35-42 mmHg [facility] ([facility]): 4 [facility] High Vo2 Sat 97.3 % 68-77 % [facility] ([facility]): 4 [facility] Low Vhco3 23.5 mEq/L 24.0-25.0 mEq/L [facility] ([facility]): 4 [facility] Vbe 0.1 -3.0-3.0 [facility] ([facility]): 4 [facility] Vctco2 24.6 mmol/L 23.0-32.0 mmol/L [facility] ([facility]): 4 [facility] 07/02/2021 CMP, Serum or Plasma High Glu 164 mg/dL 74- 106 mg/dL [facility] ([facility]): 4 [facility] Low Bun 5 mg/dL 7-18 mg/dL [facility] ([facility]): 4 [facility] Cre 0.72 mg/dL 0.6-1.0 mg/dL [facility] ([facility]): 4 [facility] Na 141 mmol/L 136-145 mmol/L [facility] ([facility]): 4 [facility] K 3.7 mmol/L 3.5-5.1 mmol/L [facility] ([facility]): 4 [facility] Cl 104 mmol/L 98-107 mmol/L [facility] ([facility]): 4 [facility] Co2 25 mmol/L 21-32 mmol/L [facility] ([facility]): 4 [facility] Ca 8.7 mg/dL 8.5-10.1 mg/dL [facility] ([facility]): 4 [facility] Gap 12.0 mmol/L 5-12 mmol/L [facility] ([facility]): 4 [facility] Gfr >90 mL/min [facility] ([facility]): 4 [facility] Low Ast 14 U/L 15-37 U/L [facility]): 4 [facility] Alt 31 U/L 12-78 U/L [facility] ([facility]): 4 [facility] Alk 113 U/L 46-116 U/L [facility] ([facility]): 4 [facility] Low Tbili < 0.1 mg/dL 0.2-1.0 mg/dL [facility] ([facility]): 4 [facility] Tp 6.9 g/dL 6.4-8.2 g/dL [facility] ([facility]): 4 [facility] Low Alb 3.0 gm/dL 3.4-5.0 gm/dL [facility] ([facility]): 4 [facility] 07/02/2021 C Reactive Protein High Crp 55.8 mg/L 0.0-3 .0 mg/L [facility] ([facility]): 4 [facility] 04/02/2021 CBC W/ Auto Diff High White Blood Count 13.0 10 4.0-10.0 10 [facility]: [address] [place] [address] Normal Red Blood Count 4.29 10 4.00-5.40 10 [facility]: [address] [place] [address] Low Hemoglobin 10.4 g/dL 12.0-15.5 g/dL [facility]: [address] [place] [address] Low Hematocrit 33.8 % 36.0-47.0 % [facility]: [address] [place] [address] Low Mean Corpuscular Volume 78.8 fL 80.0 -96.0 fL [facility]: [address] [place] [address] Low Mean Corpuscular Hemoglobin 24.2 pg 27.0-33.0 pg [facility]: [address] [place] [address] Low Mean Corpuscular HGB Conc 30.8 g/dL 32.0-36.5 g/dL [facility]: [address] [place] [address] High Red Cell Distribution Width 15.7 % 1 1.5-14.5 % [facility]: [address] [facility] Normal Platelet Count, Automated 361 10 150 -450 10 [facility]: [address] [facility] Normal Neutrophils % 62.9 % 36.0-66.0 % [facility]: [address] [facility] Normal Lymph % 28.4 % 24.0-44.0 % [facility]: [address] [facility] Normal Dickenson % 5.2 % 2.0-8.0 % Final [facility]: [address] [facility] Normal Eos % 2.5 % 0.0-3.0 % [facility]: [address] [facility] Normal Baso % 0.5 % 0.0-1.0 % [facility]: [address] [facility] Normal Immature Granulocyte % 0.5 % 0-3.0 % [facility]: [address] [facility] Normal Nucleated Red Blood Cell % 0.0 % 0- 0 % [facility]: [address] [facility] Normal Neutrophils # 8.2 10 1.5-8.5 10 [facility]: [address] [facility] Normal Lymph # 3.7 10 1.5-5.0 10 [facility]: [address] [facility] Normal Dickenson # 0.7 10 0.0-0.8 10 [facility]: [address] [facility] Normal Eos # 0.3 10 0.0-0.5 10 [facility]: [address] [facility] Normal Baso # 0.1 10 0.0-0.2 10 [facility]: [address] [facility] 04/02/2021 PT/INR Normal Prothrombin Time 13.6 secon ds 12.5-14.3 seconds [facility]: [address] [facility] Normal Inr 1.02 [facility]: 0 [facility] 04/02/2021 Partial Thromboplastin Time Normal Partial Thromboplastin Time 34.5 seconds 24.2-38.5 seconds [facility] nter: [address] [place] [address] 04/02/2021 Cardiovascular Assessment Panel, Serum Normal CPK Creatine Phosphokinase 155 U/L 26-192 U/L [facility]: [address] [place] [address] Normal CK-mb Value Mass < 1.0 NG/mL <3.6 NG /mL [facility]: [address] [place] [address] Normal mb/CK Relative Index 0.65 < or =4 [facility]: [address] [place] [address] Normal Troponin I < 0.02 NG/mL < 0.10 NG/mL [facility]: [address] [place] [address] 04/02/2021 Hepatic Function Panel, Serum Normal AST/SG OT 12 U/L 7-37 U/L [facility]: [address] [place] [address] Normal ALT/SGPT 27 U/L 12-78 U/L [facility]: [address] [place] [address] High Alkaline Phosphatase 132 U/L 45-117 U/L [facility]: [address] [place] [address] Low Bilirubin,total 0.1 mg/dL 0.2-1.0 mg /dL [facility]: [address] [place] [address] Normal Bilirubin,direct < 0.1 mg/dL 0.0-0.2 mg/dL [facility]: [address] [place] [address] Normal Total Protein 6.4 gm/dL 6.4-8.2 gm/d L [facility]: [address] [place] [address] Normal Albumin 3.2 gm/dL 3.2-5.2 gm/dL Drea l [facility]: [address] [place] [address] Low Albumin/globulin Ratio 1.0 1.2-2. 2 [facility]: [address] [place] [address] 04/02/2021 C-reactive Protein, Qualitative, Serum Normal Glucose, Fasting 88 mg/dL 70-100 mg/dL [facility] nter: [address] [place], [place] [id number] Normal Blood Urea Nitrogen 7 mg/dL 7-18 mg/ dL [facility]: 0 [facility] Normal Creatinine for GFR 0.71 mg/dL 0.55-1 .30 mg/dL [facility]: [address] [facility] Normal Glomerular Filtration Rate > 60.0 >6 0 [facility]: [address] [facility] Normal Sodium Level 142 mEq/L 136-145 mEq/L [facility]: [address] [facility] Normal Potassium Serum 3.6 mEq/L 3.5-5.1 mE q/L [facility]: [address] [facility] High Chloride Level 111 mEq/L 98-107 mEq/ L [facility]: 0 [facility] Normal Carbon Dioxide Level 28 mEq/L 21-32 mEq/L [facility]: [address] [facility] Low Anion Gap 3 mEq/L 8-16 mEq/L [facility]: 0 [facility] Low Calcium Level 8.3 mg/dL 8.5-10.1 mg/ dL [facility]: [address] [facility] 04/02/2021 Amylase, Serum or Plasma Normal Amylase 30 U/L 25-115 U/L [facility]: 0 [facility] 04/02/2021 Lipase, Serum or Plasma Low Lipase 45 U/L 7 3-393 U/L [facility]: [address] [facility] 04/02/2021 Ethanol, Blood Normal Ethyl Alcohol (Ethano l) < 0.003 % 0.000- 0.010 % [facility]: 83 0 [facility] 04/02/2021 Lactic Acid, Serum or Plasma Normal Lactic Acid Sepsis Protocol 1.6 mmol/L 0.4-2.0 mmol/L [facility]: 0 [facility] 04/02/2021 Type + Screen, Serum Normal Blood Type O posit socrates [facility]: [address] [facility] Normal Ab Screen (Indirect Colin)vis negat socrates [facility]: [address] [facility] 04/02/2021 UA W/ Reflex to Culture Normal Appearance, Urine Rfx clear clear [facility]: 83 0 [facility] Normal Color, Urine Rfx yellow yellow [facility]: [address] [facility] Normal pH,urine Rfx 6.0 units 5.0-9.0 units [facility]: [address] [facility] Normal Specific [place] Ur Auto Rfx 1.018 1.002-1.035 [facility]: [address] [facility] Normal Protein, Urine Auto Rfx negative mg/ dL negative mg/dL [facility]: [address] [facility] Normal Glucose, Urine (UA) Auto Rfx n egative mg/dL negative mg/dL [facility]: [address] [facility] Normal Ketone, Urine Auto Rfx negative mg/d L negative mg/dL [facility]: [address] [facility] Normal Urobilinogen, Urine Auto Rfx 0.2 mg/ dL 0.0-2.0 mg/dL [facility]: [address] [facility] Normal Bilirubin, Urine Auto Rfx negative n egative [facility]: [address] [facility] Normal Nitrite, Urine Auto Rfx negative neg ative [facility]: [address] [facility] Normal Leukocyte Esterase Ur Auto Rfx negat socrates negative [facility]: [address] [facility] Normal Blood, Urine Blood Rfx negative nega tive [facility]: [address] [facility] Normal WBC, Urine Auto Rfx 0 /hpf 0-3 /hpf [facility]: [address] [facility] Normal RBC, Urine Auto Rfx 0 /hpf 0-3 /hpf [facility]: [address] [facility] Normal Bacteria, Urine Auto Rfx negative ne gative [facility]: [address] [facility] Normal Squam Epithelial Cell Ur Aurfx 3 /hp f 0-6 /hpf [facility]: [address] [facility] Normal Mucus, Urine Rfx small negative Fin al [facility]: [address] [facility] Normal Hyaline Cast, Urine Auto Rfx 0 /lpf 0-1 /lpf [facility]: [address] [facility] 04/02/2021 Drug Screen, Urine Normal Amphetamines Leve l Urine negative negative [facility]: 83 0 [facility] High Barbiturates Urine positive negative [facility]: [address] [facility] Normal Benzodiazepines Urine negative negat socrates [facility]: [address] [facility] High Cannabinoids Urine positive negative [facility]: [address] [facility] Normal Cocaine Metabolite Urine negative ne gative [facility]: [address] [facility] Normal Methadone Urine negative negative Fi nal [facility]: [address] [facility] Normal Opiates Urine negative negative Drea l [facility]: [address] [facility] Normal Phencyclidine Urine negative negativ e [facility]: [address] [facility] 03/07/2021 CBC W/ Auto Diff Blood venous No observation re corded. [facility]: [address] [facility] [address], [place] 03/07/2021 TSH + Free T4, Serum Blood venous No observa tion recorded. 03/07/2021 CMP, Serum or Plasma Blood venous No observa tion recorded. 03/07/2021 Lipid Panel, Serum Blood venous No observation recorded. [facility]: [address] [facility] [address], [place] 03/07/2021 HbA1C (Hemoglobin a1C), Blood Blood venous No observation recorded. [facility]: [address] [facility] [address], [place] 03/07/2021 Vitamin D, 25-Hydroxy, Total, Serum Blood venous No observation recorded. [facility]: [address] [facility] [address], [place] 03/07/2021 Lupus Anticoagulant, Plasma Blood venous No observation recorded. [facility]: [address] [facility] [address] 03/05/2021 Levetiracetam, Serum Normal Levetiracetam ( Keppra) 10.2 ug/mL 10.0-40.0 ug/mL [facility]: 83 0 [facility] 02/20/2021 Istat Chem8+ Panel Low Istat HCT 37.0 % 38. 0-51.0 % [facility]: [address] [facility] Normal Istat Glucose 94 mg/dL 70-105 mg/dL [facility]: [address] [facility] Normal Istat Sodium 140 mEq/L 136-145 mEq/L [facility]: 0 [facility] Normal Istat Potassium 4.3 mEq/L 3.5-5.1 mE q/L [facility]: [address] [facility] Normal Istat Ca++ 5.0 mg/dL 4.5-5.3 mg/dL [facility]: [address] [facility] Normal Istat Chloride 107 mEq/L 98-109 mEq/ L [facility]: 0 [facility] Normal Istat CO2 26.0 mm/L 23.0-27.0 mm/L [facility]: [address] [facility] Normal Istat BUN 9 mg/dL 8-26 mg/dL [facility]: [address] [facility] Low Istat Creatinine 0.5 mg/dL 0.6-1.3 m g/dL [facility]: [address] [facility] 02/20/2021 CBC W/ Auto Diff High White Blood Count 12.7 10 4.0-10.0 10 [facility]: 0 [facility] Normal Red Blood Count 4.60 10 4.00-5.40 10 [facility]: 0 [facility] Low Hemoglobin 11.4 g/dL 12.0-15.5 g/dL [facility]: [address] [facility] Normal Hematocrit 37.4 % 36.0-47.0 % [facility]: [address] [facility] Normal Mean Corpuscular Volume 81.3 fL 80.0 -96.0 fL [facility]: 0 [facility] Low Mean Corpuscular Hemoglobin 24.8 pg 27.0-33.0 pg Final [facility]: [address] [place] [address] Low Mean Corpuscular HGB Conc 30.5 g/dL 32.0-36.5 g/dL Final [facility]: [address] [place] [address] High Red Cell Distribution Width 15.2 % 1 1.5-14.5 % [facility]: [address] [place] [address] Normal Platelet Count, Automated 303 10 150 -450 10 [facility]: 0 [facility] Normal Neutrophils % 63.4 % 36.0-66.0 % [facility]: [address] [facility] Normal Lymph % 28.5 % 24.0-44.0 % Final [facility]: [address] [facility] Normal Dickenson % 5.6 % 2.0-8.0 % Final [facility]: 0 [facility] Normal Eos % 1.7 % 0.0-3.0 % [facility]: [address] [facility] Normal Baso % 0.4 % 0.0-1.0 % Final [facility]: [address] [facility] Normal Immature Granulocyte % 0.4 % 0-3.0 % [facility]: [address] [facility] Normal Nucleated Red Blood Cell % 0.0 % 0- 0 % [facility]: 0 [facility] Normal Neutrophils # 8.1 10 1.5-8.5 10 [facility]: [address] [facility] Normal Lymph # 3.6 10 1.5-5.[address] [facility]: [address] [facility] Normal Dickenson # 0.7 10 0.0-0.8 10 [facility]: [address] [place] [address] Normal Eos # 0.2 10 0.0-0.5 10 [facility]: 0 [facility] Normal Baso # 0.1 10 0.0-0.2 10 [facility]: [address] [place] [address] 02/20/2021 ESR (Erythrocyte Sedimentation Rate), Blood Hig h Erythrocyte Sedimentation Rate 36 mm/HR 0-20 mm/HR [facility] Center: [address] [place] [address] 02/20/2021 Hepatic Function Panel, Serum Normal AST/SG OT 12 U/L 7-37 U/L [facility]: [address] [place] [address] Normal ALT/SGPT 45 U/L 12-78 U/L [facility]: [address] [place] [address] High Alkaline Phosphatase 166 U/L 45-117 U/L [facility]: [address] [place] [address] Low Bilirubin,total < 0.1 mg/dL 0.2-1.0 mg/dL [facility]: [address] [place] [address] Normal Bilirubin,direct < 0.1 mg/dL 0.0-0.2 mg/dL [facility]: [address] [place] [address] Normal Total Protein 6.6 gm/dL 6.4-8.2 gm/d L [facility]: [address] [place] [address] Normal Albumin 3.4 gm/dL 3.2-5.2 gm/dL [facility]: [address] [place] [address] Low Albumin/globulin Ratio 1.1 1.2-2. 2 [facility]: [address] [place] [address] 02/20/2021 C Reactive Protein, QN, Serum or Plasma High C Reactive Protein Quantitativ 2.71 mg/dL 0.00-0.30 mg/dL [facility]: [address] [place] [address] 01/05/2021 Urinalysis, Dipstick, Auto No observation recorded. 01/05/2021 Test, Urine No observation kesha rded. 12/06/2020 Cbc High White Blood Count 12.8 10 4.0-10 .0 10 [facility]: 0 [facility] Normal Red Blood Count 4.47 10 4.00-5.40 10 [facility]: [address] [place] [address] Low Hemoglobin 11.4 g/dL 12.0-15.5 g/dL [facility]: [address] [place] [address] Normal Hematocrit 36.5 % 36.0-47.0 % [facility]: [address] [place] [address] Normal Mean Corpuscular Volume 81.7 fL 80.0 -96.0 fL [facility]: [address] [place] [address] Low Mean Corpuscular Hemoglobin 25.5 pg 27.0-33.0 pg [facility]: [address] [place] [address] Low Mean Corpuscular HGB Conc 31.2 g/dL 32.0-36.5 g/dL [facility]: [address] [place] [address] Normal Red Cell Distribution Width 13.8 % 1 1.5-14.5 % [facility]: [address] [place] [address] Normal Platelet Count, Automated 350 10 150 -450 10 [facility]: [address] [place] [address] Normal Nucleated Red Blood Cell % 0.0 % 0- 0 % [facility]: [address] [place] [address] 12/05/2020 CBC W/ Auto Diff High White Blood Count 16.0 10 4.0-10.0 10 [facility]: [address] [place] [address] Normal Red Blood Count 4.80 10 4.00-5.40 10 [facility]: [address] [place] [address] Normal Hemoglobin 12.1 g/dL 12.0-15.5 g/dL [facility]: [address] [place] [address] Normal Hematocrit 39.0 % 36.0-47.0 % [facility]: [address] [place] [address] Normal Mean Corpuscular Volume 81.3 fL 80.0 -96.0 fL [facility]: [address] [facility] Low Mean Corpuscular Hemoglobin 25.2 pg 27.0-33.0 pg [facility]: [address] [facility] Low Mean Corpuscular HGB Conc 31.0 g/dL 32.0-36.5 g/dL Final [facility]: [address] [facility] Normal Red Cell Distribution Width 13.8 % 1 1.5-14.5 % [facility]: [address] [facility] Normal Platelet Count, Automated 370 10 150 -450 10 [facility]: [address] [facility] High Neutrophils % 74.0 % 36.0-66.0 % [facility]: [address] [facility] Low Lymph % 19.3 % 24.0-44.0 % [facility]: [address] [facility] Normal Dickenson % 3.7 % 0.0-5.0 % Final [facility]: [address] [facility] Normal Eos % 2.1 % 0.0-3.0 % [facility]: [address] [facility] Normal Baso % 0.5 % 0.0-1.0 % [facility]: 0 [facility] Normal Immature Granulocyte % 0.4 % 0-3.0 % [facility]: [address] [facility] Normal Nucleated Red Blood Cell % 0.0 % 0- 0 % [facility]: [address] [facility] High Neutrophils # 11.8 10 1.5-8.5 10 [facility]: [address] [facility] Normal Lymph # 3.1 10 1.5-5.0 10 [facility]: [address] [facility] Normal Dickenson # 0.6 10 0.0-0.8 10 [facility]: [address] [facility] Normal Eos # 0.3 10 0.0-0.5 10 [facility]: [address] [facility] Normal Baso # 0.1 10 0.0-0.2 10 [facility]: [address] [facility] 12/05/2020 Hepatic Function Panel, Serum Low AST/SG OT 6 U/L 7-37 U/L [facility]: 0 [facility] Normal ALT/SGPT 19 U/L 12-78 U/L [facility]: [address] [place] [address] High Alkaline Phosphatase 136 U/L 45-117 U/L [facility]: 0 [facility] Low Bilirubin,total < 0.1 mg/dL 0.2-1.0 mg/dL [facility]: [address] [place] [address] Normal Bilirubin,direct < 0.1 mg/dL 0.0-0.2 mg/dL [facility]: [address] [place] [address] Normal Total Protein 7.4 gm/dL 6.4-8.2 gm/d L [facility]: 0 [facility] Normal Albumin 3.7 gm/dL 3.2-5.2 gm/dL Drea l [facility]: [address] [place] [address] Low Albumin/globulin Ratio 1.0 1.2-2. 2 [facility]: 0 [facility] 12/05/2020 BMP, Serum or Plasma Normal Glucose, Fastin g 90 mg/dL 70-100 mg/dL [facility]: 83 0 [facility] Normal Blood Urea Nitrogen 15 mg/dL 7-18 mg /dL [facility]: 0 [facility] Normal Creatinine for GFR 0.83 mg/dL 0.55-1 .30 mg/dL [facility]: 0 [facility] Normal Glomerular Filtration Rate > 60.0 >6 0 [facility]: 0 [facility] Normal Sodium Level 141 mEq/L 136-145 mEq/L [facility]: [address] [place] [address] Normal Potassium Serum 3.6 mEq/L 3.5-5.1 mE q/L [facility]: [address] [facility] High Chloride Level 110 mEq/L 98-107 mEq/ L [facility]: [address] [facility] Normal Carbon Dioxide Level 21 mEq/L 21-32 mEq/L [facility]: [address] [facility] Normal Anion Gap 10 mEq/L 8-16 mEq/L [facility]: [address] [facility] Normal Calcium Level 9.3 mg/dL 8.5-10.1 mg/ dL [facility]: [address] [facility] 12/05/2020 Lipase, Serum or Plasma Normal Lipase 165 U/L 73-393 U/L [facility]: 0 [facility] 12/05/2020 PT/INR High Prothrombin Time 23.9 secon ds 12.5-14.3 seconds [facility]: 0 [facility] Normal Inr 2.09 [facility]: [address] [facility] 12/05/2020 Partial Thromboplastin Time High Partial Thromboplastin Time 56.4 seconds 24.2-38.5 seconds [facility] nter: [address] [facility] 12/05/2020 Type + Screen, Serum Normal Blood Type O posit socrates [facility]: [address] [facility] Normal Ab Screen (Indirect Colin)vis negat socrates [facility]: [address] [facility] 12/05/2020 UA W/ Reflex to Culture Normal Appearance, Urine Rfx clear clear [facility]: 83 0 [facility] Normal Color, Urine Rfx colorless yellow Fi nal [facility]: [address] [facility] Normal pH,urine Rfx 5.0 units 5.0-9.0 units [facility]: [address] [facility] Normal Specific [place] Ur Auto Rfx 1.036 1.002-1.035 [facility]: [address] [facility] Normal Protein, Urine Auto Rfx negative mg/ dL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
--- OUTSIDE RECORDS SUMMARY | 2021-10-04 04:45 | CCD ---
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 Active Not available fluconazole 150 mg tablet Completed 2020 fluoxetine 20 mg capsule TAKE ONE CAPSULE BY MOUTH EVERY DAY Completed fluoxetine 40 mg capsule Active Not ziyad ilable fondaparinux 2.5 mg/0.5 mL subcutaneous solution syringe [...] av ailable lamotrigine 25 mg tablet TAKE TWO TABLETS BY MOUTH TWICE A DAY FOR WEEK 5 Completed 08/02/2021 levetiracetam 1,000 mg tablet 1 Completed 09/13/2020 [...] Completed 09/13/2020 ondansetron HCl 4 mg tablet Active Not available oxycodone 10 mg tablet [...] 11/08/2020 prednisone 50 mg tablet Completed 09/13/20 20 pregabalin 75 mg capsule Active Not ziyad [...] lable topiramate 25 mg tablet Completed 09/13/20 20 topiramate 50 mg tablet Completed 09/13/20 20 tramadol 50 mg tablet Completed 08/02/2021 Vitamin C 500 mg tablet Completed 09/13/20 20 Xarelto 15 mg tablet Take 1 tablet every day by oral route as directed. Completed 10/19/2020 Xarelto 20 mg tablet Take 1 tablet every day by oral route. Completed 10/19/2020 zolpidem 10 mg tablet Active Not availa ble zonisamide 100 mg capsule TAKE 1 CAPSULE [...] Tube Information n ot available 11/08/2020 Electrocardiogram [facility] [address] [facility] [address] [place] [address] (Work Place) 08/08/2021 MRI, Brain, W/o Contrast [facility] [address] [place] [address] (Work Place) Notes: section x5, Involuntary D&C, Appendectomy, Tonsillectomy, Gallbladder Results Lab Results Date Name Specimen Result Interpretation Description Value Range Status Address 08/15/2021 Iron + TIBC + Ferritin, Serum Blood venous Low Iron, Total 26 mcg/dL 40-190 mcg/dL Final [facility]: [address] [facility] Blood venous Normal Iron Binding Capacity 38 4 mcg/dL (calc) 250-450 mcg/dL (calc) Final [facility]: [address] [facility] Blood venous Low % Saturation 7 % (calc) 16-45 % (calc) Final [facility]: [address] [facility] Blood venous Low Ferritin 11 NG/mL 16-154 NG/m L Final [facility]: [address] [facility] 08/15/2021 HIV 1/2 Antigen/antibody, 4TH Gen W/rfl,screenin g Blood venous Normal HIV Ag/Ab, 4TH Gen non-reactive non-reactive Final [facility]: [address] [facility] 08/15/2021 Cbc Blood venous High White Blood Cell Count 12.2 thousand/uL 3.8-10.8 thousand/uL Final [facility]: [address] [facility] Blood venous Normal Red Blood Cell Count 4.5 4 million/uL 3.80-5.10 million/uL Final [facility] gh: [address] [facility] Blood venous Low Hemoglobin 10.6 g/dL 11.7-15. 5 g/dL Final [facility]: [address] [facility] Blood venous Normal Hematocrit 35.5 % 35.0-45.0 % Final [facility]: [address] [facility] Blood venous Low Mcv 78.2 fL 80.0-100.0 fL Fi nal [facility]: [address] [facility] Blood venous Low Mch 23.3 pg 27.0-33.0 pg Fin al [facility]: [address] [facility] Blood venous Low Mchc 29.9 g/dL 32.0-36.0 g/dL Final [facility]: [address] [facility] Blood venous Normal Rdw 14.6 % 11.0-15.0 % Final [facility]: [address] [facility] Blood venous High Platelet Count 536 thous and/uL 140-400 thousand/uL Final [facility]: [address] [facility] Blood venous Normal Mpv 10.9 fL 7.5-12.5 fL Drea l [facility] [address] [facility] Urinalysis, Dipstick Normal Appearance, Urine hazy clear [facility]: [address] [facility] Normal Color, Urine yellow yellow Final [facility]: [address] [facility] Normal pH,urine 5.0 units 5.0-9.0 units Fin [facility]: [address] [facility] Normal Specific [place] Urine Auto 1.028 1 .002-1.035 [facility]: [address] [facility] Normal Protein, Urine Auto negative mg/dL n egative mg/dL [facility]: [address] [facility] Normal Glucose, Urine (UA) Auto negative mg /dL negative mg/dL [facility]: [address] [facility] Normal Ketone, Urine Auto negative mg/dL ne gative mg/dL [facility]: [address] [facility] Normal Urobilinogen, Urine Auto 0.2 mg/dL 0 .0-2.0 mg/dL [facility]: [address] [facility] Normal Bilirubin, Urine Auto negative negat socrates [facility]: [address] [facility] Normal Nitrite, Urine Auto negative negativ e [facility]: [address] [facility] High Leukocyte Esterase, Urine Auto 1+ negative [facility]: [address] [facility] Normal Blood, Urine Blood negative negative [facility]: [address] [facility] Normal WBC, Urine Auto 2 /hpf 0-3 /hpf [facility]: [address] [facility] Normal RBC, Urine Auto 1 /hpf 0-3 /hpf [facility]: [address] [facility] Normal Bacteria, Urine Auto negative negati ve [facility]: [address] [facility] Normal Squamous Epithelial Cell Ur AU 2 /hp f 0-6 /hpf [facility]: [address] [facility] Normal Mucus, Urine small negative [facility]: [address] [facility] Normal Hyaline Cast, Urine Auto 0 /lpf 0-1 /lpf [facility]: [address] [facility] 08/09/2021 Protein, Total, Urine High Total Protein,random Urine 22.8 mg/dL 0.0-12.0 mg/dL [facility]ter: [address] [facility] 08/09/2021 CMP, Serum or Plasma Normal Glucose, Fastin g 100 mg/dL 70-100 mg/dL [facility]: 83 0 [facility] Normal Blood Urea Nitrogen 7 mg/dL 7-18 mg/ dL [facility]: [address] [facility] Normal Creatinine for GFR 0.64 mg/dL 0.55-1 .30 mg/dL [facility]: [address] [facility] Normal Glomerular Filtration Rate > 60.0 >6 0 [facility]: [address] [facility] Normal Sodium Level 142 mEq/L 136-145 mEq/L [facility]: [address] [facility] Normal Potassium Serum 4.3 mEq/L 3.5-5.1 mE q/L [facility]: [address] [facility] High Chloride Level 109 mEq/L 98-107 mEq/ L [facility]: [address] [facility] Normal Carbon Dioxide Level 27 mEq/L 21-32 mEq/L [facility]: [address] [facility] Low Anion Gap 6 mEq/L 8-16 mEq/L [facility]: [address] [facility] Normal Calcium Level 8.7 mg/dL 8.5-10.1 mg/ dL [facility]: [address] [facility] Normal AST/SGOT 7 U/L 7-37 U/L [facility]: [address] [facility] Normal ALT/SGPT 18 U/L 12-78 U/L [facility]: [address] [facility] High Alkaline Phosphatase 118 U/L 45-117 U/L [facility]: [address] [facility] Low Bilirubin,total 0.1 mg/dL 0.2-1.0 mg /dL [facility]: [address] [facility] Low Total Protein 6.1 gm/dL 6.4-8.2 gm/d L [facility]: [address] [facility] Low Albumin 3.1 gm/dL 3.2-5.2 gm/dL Drea l [facility]: [address] [facility] Low Albumin/globulin Ratio 1.0 1.2-2. 2 [facility]: [address] [facility] 08/09/2021 C3 (Complement), Serum or Plasma Normal Complement C3 167 mg/dL 90-180 mg/dL [facility]ter: [address] [facility] 08/09/2021 C4 (Complement), Serum or Plasma High Com plement C4 44 mg/dL 10-40 mg/dL [facility]: [address] 0 [facility] 08/09/2021 C Reactive Protein, QN, Serum or Plasma High C Reactive Protein Quantitativ 2.21 mg/dL 0.00-0.30 mg/dL [facility]: [address] [place] [address] 08/09/2021 CBC W/ Auto Diff High White Blood Count 10.6 10 4.0-10.0 10 [facility]: [address] [place] [address] Low Red Blood Count 3.87 10 4.00-5.40 10 [facility]: [address] [place] [address] Low Hemoglobin 9.1 g/dL 12.0-15.5 g/dL F inal [facility]: [address] [place] [address] Low Hematocrit 30.2 % 36.0-47.0 % [facility]: [address] [place] [address] Low Mean Corpuscular Volume 78.0 fL 80.0 -96.0 fL [facility]: [address] [place] [address] Low Mean Corpuscular Hemoglobin 23.5 pg 27.0-33.0 pg [facility]: [address] [place] [address] Low Mean Corpuscular HGB Conc 30.1 g/dL 32.0-36.5 g/dL [facility]: [address] [place] [address] High Red Cell Distribution Width 15.4 % 1 1.5-14.5 % [facility]: [address] [place] [address] Normal Platelet Count, Automated 425 10 150 -450 10 [facility]: 0 [facility] Normal Neutrophils % 63.9 % 36.0-66.0 % [facility]: [address] [facility] Normal Lymph % 25.7 % 24.0-44.0 % [facility]: [address] [facility] Normal [place] % 5.5 % 2.0-8.0 % [facility]: [address] [place] [address] High Eos % 3.8 % 0.0-3.0 % [facility]: 0 [facility] Normal Baso % 0.5 % 0.0-1.0 % [facility]: [address] [facility] Normal Immature Granulocyte % 0.6 % 0-3.0 % [facility]: [address] [facility] Normal Nucleated Red Blood Cell % 0.0 % 0- 0 % [facility]: [address] [facility] Normal Neutrophils # 6.8 10 1.5-8.5 10 Drea l [facility]: [address] [facility] Normal Lymph # 2.7 10 1.5-5.0 10 [facility]: [address] [facility] Normal [place] # 0.6 10 0.0-0.8 10 [facility]: [address] [facility] Normal Eos # 0.4 10 0.0-0.5 10 [facility]: 0 [facility] Normal Baso # 0.1 10 0.0-0.2 10 [facility]: 0 [facility] 08/09/2021 ESR (Erythrocyte Sedimentation Rate), Blood Hig h Erythrocyte Sedimentation Rate 59 mm/HR 0-20 mm/HR [facility]: 0 [facility] 08/07/2021 CBC W/ Auto Diff Normal White Blood Count 9.2 10 4.0-10.0 10 [facility]: 0 [facility] Normal Red Blood Count 4.47 10 4.00-5.40 10 [facility]: 0 [facility] Low Hemoglobin 10.6 g/dL 12.0-15.5 g/dL [facility]: [address] [place] [address] Low Hematocrit 35.0 % 36.0-47.0 % [facility]: [address] [place] [address] Low Mean Corpuscular Volume 78.3 fL 80.0 -96.0 fL [facility]: [address] [place] [address] Low Mean Corpuscular Hemoglobin 23.7 pg 27.0-33.0 pg [facility]: [address] [place] [address] Low Mean Corpuscular HGB Conc 30.3 g/dL 32.0-36.5 g/dL [facility]: [address] [facility] High Red Cell Distribution Width 15.3 % 1 1.5-14.5 % [facility]: [address] [facility] Normal Platelet Count, Automated 362 10 150 -450 10 [facility]: [address] [facility] Normal Neutrophils % 64.3 % 36.0-66.0 % [facility]: [address] [facility] Normal Lymph % 25.2 % 24.0-44.0 % [facility]: [address] [facility] Normal [place] % 6.0 % 2.0-8.0 % Final [facility]: [address] [facility] High Eos % 3.7 % 0.0-3.0 % [facility]: [address] [facility] Normal Baso % 0.5 % 0.0-1.0 % [facility]: [address] [facility] Normal Immature Granulocyte % 0.3 % 0-3.0 % [facility]: [address] [facility] Normal Nucleated Red Blood Cell % 0.0 % 0- 0 % [facility]: [address] [facility] Normal Neutrophils # 5.9 10 1.5-8.[address] [facility]: [address] [facility] Normal Lymph # 2.3 10 1.5-5.0 10 [facility]: [address] [facility] Normal [place] # 0.6 10 0.0-0.8 10 [facility]: [address] [facility] Normal Eos # 0.3 10 0.0-0.5 10 [facility]: [address] [facility] Normal Baso # 0.1 10 0.0-0.2 10 [facility]: [address] [facility] 08/07/2021 BMP, Serum or Plasma Normal Glucose, Fastin g 92 mg/dL 70-100 mg/dL [facility]: 83 0 [facility] Normal Blood Urea Nitrogen 11 mg/dL 7-18 mg /dL [facility]: [address] [facility] Normal Creatinine for GFR 0.80 mg/dL 0.55-1 .30 mg/dL [facility]: [address] [facility] Normal Glomerular Filtration Rate > 60.0 >6 0 [facility]: [address] [facility] Normal Sodium Level 144 mEq/L 136-145 mEq/L [facility]: [address] [facility] Normal Potassium Serum 4.0 mEq/L 3.5-5.1 mE q/L [facility]: [address] [facility] High Chloride Level 113 mEq/L 98-107 mEq/ L [facility]: [address] [facility] Normal Carbon Dioxide Level 24 mEq/L 21-32 mEq/L [facility]: [address] [facility] Low Anion Gap 7 mEq/L 8-16 mEq/L [facility]: [address] [facility] Normal Calcium Level 8.8 mg/dL 8.5-10.1 mg/ dL [facility]: [address] [facility] 08/07/2021 Choriogonadotropin, Quant, Serum or Plasma Norm al HCG, Serum Quantitative < 1.0 mIU/mL [facility]: [address] [place] [address] 08/07/2021 Type + Screen, Serum Normal Blood Type O posit socrates [facility]: [address] [facility] Normal Ab Screen (Indirect Colin)vis negat socrates [facility]: [address] [facility] 08/07/2021 [place] ENDOCERVIX No observation recorded. [facility]: 0 [facility] 08/06/2021 CBC W/ Auto Diff Results [facility]: [address] [facility] Wbc 9.5 10^3/uL 4.2 - 11.0 10^3/uL [facility]: [address] [facility] Low Rbc 3.73 10^6/uL 4.20 - 5.40 10^6/u L [facility]: [address] [place] [address] Low Hemoglobin 9.0 g/dL 12.0 - 16.0 g/dL [facility]: [address] [place] [address] Low Hematocrit 28.6 % 37.0 - 47.0 % [facility]: [address] [place] [address] Mcv 76.7 fL 81.0 - 101 fL [facility] [address] [place] [address] Mch 24.1 pg 27.0 - 34.0 pg [facility]: [address] [place] [address] Mchc 31.5 g/dL 31.0 - 36.0 g/dL [facility]: [address] [place] [address] Rdw 15.0 % 11.5 - 14.5 % [facility]: [address] [place] [address] Platelets 367 10^3/uL 150 - 450 10^3 /uL [facility]: [address] [place] [address] Mpv 9.6 fL 7.4 - 10.4 fL [facility]: [address] [place] [address] Neut 64.6 % 37.0 - 80.0 % [facility]: [address] [place] [address] Lymph 26.4 % 25.0 - 40.0 % Ca [facility]: [address] [place] [address] [place] 5.1 % 3.0 - 8.0 % [facility]: [address] [place] [address] Eos 3.2 % 0.0 - 7.0 % [facility]: [address] [place] [address] Baso 0.4 % 0.0 - 2.5 % [facility]: [address] [place] [address] High %Ig 0.3 % 0.0 - 0.0 % [facility] age [facility]: [address] [place] [address] %Nrbc 0.0 % 0.0 - 0.0 % [facility]: [address] [place] [address] #Neut 6.14 10^3/uL 2.00 - 6.90 10^3/ uL [facility]: [address] [place] [address] #Lymph 2.51 10^3/uL 0.60 - 3.40 10^3 /uL [facility]: [address] [place] [address] #[place] 0.48 10^3/uL 0.00 - 0.90 10^3/ uL [facility]: [address] [place] [address] #Eos 0.30 10^3/uL 0.00 - 0.70 10^3/u L [facility]: [address] [place] [address] #Baso 0.04 10^3/uL 0.00 - 0.20 10^3/ uL [facility]: [address] [place] [address] #Ig 0.03 10^3/uL 0.00 - 0.10 10^3/u L [facility]: [address] [place] [address] #Nrbc 0.00 10^3/uL 0.00 - 0.00 10^3/ uL [facility]: [address] [place] [address] Manual Diff not indicated [facility]: [address] [place] [address] RBC Morph not indicated [facility]: [address] [place] [address] 08/06/2021 CMP, Serum or Plasma Results Final [facility]: [address] [place] [address] Sodium 141 mEq/L 134 - 153 mEq/L [facility]: [address] [place] [address] Low Potassium 3.5 mEq/L 3.6 - 5.0 mEq/L [facility]: [address] [place] [address] High Chloride 108 mEq/L 98 - 107 mEq/L [facility]: [address] [place] [address] Co2 25 mEq/L 22 - 30 mEq/L [facility]: [address] [place] [address] High Glucose 103 mg/dL 70 - 99 mg/dL [facility]: [address] [place] [address] Bun 7 mg/dL 7 - 21 mg/dL [facility]: [address] [place] [address] Creatinine 0.8 mg/dL 0.7 - 1.5 mg/dL [facility]: [address] [place] [address] BUN/creat 9 8 - 27 [facility]: [address] [place] [address] Total Protein 6.3 g/dL 6.3 - 8.2 g/d L [facility]: [address] [place] [address] Albumin 4.0 g/dL 3.9 - 5.0 g/dL [facility]: [address] [place] [address] Low Globulin 2.3 gm/dL 2.4 - 3.2 gm/dL [facility]: [address] [place] [address] A/g Ratio 1.7 0.8 - 2.0 Ca [facility]: [address] [place] [address] Calcium 9.1 mg/dL 8.4 - 10.2 mg/dL [facility]: [address] [place] [address] Total Bili <0.7 mg/dL 0.2 - 1.3 mg/d L [facility]: [address] [place] [address] Alkaline Phos 114 U/L 38 - 126 U/L [facility]: [address] [place] [address] SGOT/AST 11 U/L 5 - 40 U/L Ca [facility]: [address] [place] [address] SGPT/ALT 10 U/L 7 - 56 U/L Ca [facility]: [address] [place] [address] Anion Gap 8.0 mmol/L 8.0 - 16.0 mmol /L [facility]: [address] [place] [address] Age 31 yrs [facility]: [address] [place] [address] Non-aa GFR >60 mL/min [facility]: [address] [place] [address] Afr Amer GFR >60 mL/min [facility]: [address] [place] [address] 07/31/2021 UA W/ Reflex to Culture Normal Appearance, Urine Rfx clear clear Final [facility]: [address] 0 [facility] Normal Color, Urine Rfx colorless yellow Fi nal [facility]: [address] [facility] Normal pH,urine Rfx 7.0 units 5.0-9.0 units [facility]: [address] [facility] Normal Specific [place] Ur Auto Rfx 1.002 1.002-1.035 [facility]: [address] [facility] Normal Protein, Urine Auto Rfx negative mg/ dL negative mg/dL [facility]: [address] [facility] Normal Glucose, Urine (UA) Auto Rfx n egative mg/dL negative mg/dL [facility]: [address] [facility] Normal Ketone, Urine Auto Rfx negative mg/d L negative mg/dL [facility]: [address] [facility] Normal Urobilinogen, Urine Auto Rfx 0.2 mg/ dL 0.0-2.0 mg/dL [facility]: [address] [facility] Normal Bilirubin, Urine Auto Rfx negative n egative [facility]: [address] [facility] Normal Nitrite, Urine Auto Rfx negative neg ative [facility]: [address] [facility] Normal Leukocyte Esterase Ur Auto Rfx negat socrates negative [facility]: [address] [facility] High Blood, Urine Blood Rfx 2+ negati ve [facility]: [address] [facility] Normal WBC, Urine Auto Rfx 0 /hpf 0-3 /hpf [facility]: [address] [facility] Normal RBC, Urine Auto Rfx 1 /hpf 0-3 /hpf [facility]: [address] [facility] High Bacteria, Urine Auto Rfx 1+ nega tive [facility]: [address] [facility] Normal Squam Epithelial Cell Ur Aurfx 2 /hp f 0-6 /hpf [facility]: [address] [facility] Normal Hyaline Cast, Urine Auto Rfx 0 /lpf 0-1 /lpf [facility]: [address] [facility] 07/31/2021 CBC W/ Auto Diff Normal White Blood Count 8.4 10 4.0-10.0 10 [facility]: [address] [facility] Normal Red Blood Count 4.49 10 4.00-5.40 10 [facility]: [address] [facility] Low Hemoglobin 10.7 g/dL 12.0-15.5 g/dL [facility]: [address] [facility] Low Hematocrit 34.9 % 36.0-47.0 % [facility]: [address] [place] [address] Low Mean Corpuscular Volume 77.7 fL 80.0 -96.0 fL Final [facility]: [address] [place] [address] Low Mean Corpuscular Hemoglobin 23.8 pg 27.0-33.0 pg Final [facility]: [address] [place] [address] Low Mean Corpuscular HGB Conc 30.7 g/dL 32.0-36.5 g/dL Final [facility]: [address] [place] [address] High Red Cell Distribution Width 15.4 % 1 1.5-14.5 % [facility]: [address] [place] [address] Normal Platelet Count, Automated 303 10 150 -450 10 [facility]: 0 [facility] High Neutrophils % 66.6 % 36.0-66.0 % [facility]: [address] [facility] Low Lymph % 22.6 % 24.0-44.0 % Final [facility]: [address] [facility] Normal [place] % 5.5 % 2.0-8.0 % Final [facility]: 0 [facility] High Eos % 4.6 % 0.0-3.0 % [facility]: 0 [facility] Normal Baso % 0.5 % 0.0-1.0 % Final [facility]: 0 [facility] Normal Immature Granulocyte % 0.2 % 0-3.0 % [facility]: [address] [facility] Normal Nucleated Red Blood Cell % 0.0 % 0- 0 % [facility]: 0 [facility] Normal Neutrophils # 5.6 10 1.5-8.[address] [facility] [place]: [address] [facility] Normal Lymph # 1.9 10 1.5-5.0 10 [facility]: [address] [facility] Normal [place] # 0.5 10 0.0-0.8 10 [facility]: [address] [facility] Normal Eos # 0.4 10 0.0-0.5 10 [facility]: [address] [facility] Normal Baso # 0.0 10 0.0-0.2 10 [facility]: [address] [facility] 07/31/2021 Istat B-HCG Normal Istat B-HCG < 5.0 F [facility]: [address] [facility] 07/31/2021 Istat Chem8+ Panel Low Istat HCT 35.0 % 38. 0-51.0 % [facility]: 0 [facility] High Istat Glucose 123 mg/dL 70-105 mg/dL [facility]: [address] [facility] Normal Istat Sodium 138 mEq/L 136-145 mEq/L [facility]: [address] [facility] Normal Istat Potassium 4.3 mEq/L 3.5-5.1 mE q/L [facility]: [address] [facility] Normal Istat Ca++ 4.6 mg/dL 4.5-5.3 mg/dL F [facility]: [address] [facility] Normal Istat Chloride 105 mEq/L 98-109 mEq/ L [facility]: [address] [facility] Normal Istat CO2 24.0 mm/L 23.0-27.0 mm/L F [facility]: [address] [facility] Normal Istat BUN 14 mg/dL 8-26 mg/dL [facility]: 0 [facility] Normal Istat Creatinine 0.7 mg/dL 0.6-1.3 m g/dL [facility]: [address] [facility] 07/31/2021 [place] ENDOCERVIX No observation recorded. [facility]: 0 [facility] 07/31/2021 PT/INR High Prothrombin Time 23.2 secon ds 12.7-14.5 seconds [facility]: [address] [place] [address] Normal Inr 2.01 [facility]: [address] [place] [address] 07/31/2021 Partial Thromboplastin Time High Partial Thromboplastin Time 63.9 seconds 25.9-37.0 seconds [facility] nter: [address] [place] [address] 07/31/2021 Lactic Acid, Serum or Plasma Normal Lactic Acid Sepsis Protocol 1.4 mmol/L 0.4-2.0 mmol/L [facility]: [address] [place] [address] 07/31/2021 Hepatic Function Panel, Serum Normal AST/SG OT 17 U/L 7-37 U/L [facility]: [address] [place] [address] Normal ALT/SGPT 24 U/L 12-78 U/L [facility]: [address] [place] [address] Normal Alkaline Phosphatase 117 U/L 45-117 U/L [facility]: [address] [place] [address] Low Bilirubin,total 0.1 mg/dL 0.2-1.0 mg /dL [facility]: [address] [place] [address] Normal Bilirubin,direct < 0.1 mg/dL 0.0-0.2 mg/dL [facility]: [address] [place] [address] Normal Total Protein 6.4 gm/dL 6.4-8.2 gm/d L [facility]: [address] [place] [address] Normal Albumin 3.2 gm/dL 3.2-5.2 gm/dL Drea l [facility]: [address] [place] [address] Low Albumin/globulin Ratio 1.0 1.2-2. 2 [facility]: [address] [place] [address] 07/31/2021 Amylase, Serum or Plasma Normal Amylase 40 U/L 25-115 U/L [facility]: [address] [place] [address] 07/31/2021 Lipase, Serum or Plasma Normal Lipase 91 U/L 7 3-393 U/L [facility]: [address] [place], [place] [address] 07/31/2021 Chlamydia, GC & Trich Amp Normal Ch lamydia DNA Amplification negative negative Final [facility] nter: [address] [facility] Normal GC DNA Amplification negative negati ve [facility]: [address] [facility] Normal Trichomonas Vaginalis (Amp) not dete cted negative [facility]: [address] [facility] 07/31/2021 Influenza A/B RSV Covid Amp Normal Influenza a Amplification negative negative [facility] nter: [address] [facility] Normal Influenza B Amplification negative n egative [facility]: [address] [facility] Normal RSV Amplification negative negative Final [facility]: [address] [facility] Normal Sars Covid-19 Amplification negative negative [facility]: [address] [facility] 07/31/2021 TSH, Serum or Plasma Normal Thyroid Stimulating Hormone 0.444 uIU/mL 0.358-3.740 uIU/mL [facility] nter: [address] [facility] 07/31/2021 T4, Free, Serum Low Free T4 0.66 NG/dL 0.76 -1.46 NG/dL [facility]: 0 [facility] 07/31/2021 Type + Screen, Serum Normal Blood Type O posit socrates [facility]: [address] [facility] Normal Ab Screen (Indirect Colin)vis negat socrates [facility]: 0 [facility] 07/31/2021 Cardiovascular Assessment Panel, Serum Normal CPK Creatine Phosphokinase 67 U/L 26-192 U/L [facility]: [address] [facility] Normal CK-mb Value Mass < 1.0 NG/mL <3.6 NG /mL [facility]: 0 [facility] Normal mb/CK Relative Index 1.49 < or =4 [facility]: 0 [facility] Normal Troponin I < 0.02 NG/mL < 0.10 NG/mL [facility]: [address] [facility] 07/31/2021 Ethanol, Blood Normal Ethyl Alcohol (Ethano l) < 0.003 % 0.000- 0.010 % [facility]: [address] [facility] 07/31/2021 Salicylate, Quantitative, Serum Low Salicylate Level < 1.7 mg/dL 5.0-30.0 mg/dL [facility] nter: [address] [facility] 07/31/2021 Acetaminophen, Serum Low Acetaminophen L evel < 2.0 ug/mL 10.0- 30.0 ug/mL [facility]: [address] [facility] 07/31/2021 CBC W/ Auto Diff Normal White Blood Count 8.5 10 4.0-10.0 10 [facility]: [address] [facility] Normal Red Blood Count 4.04 10 4.00-5.40 10 [facility]: [address] [facility] Low Hemoglobin 9.7 g/dL 12.0-15.5 g/dL F inal [facility]: [address] [facility] Low Hematocrit 31.4 % 36.0-47.0 % [facility]: 0 [facility] Low Mean Corpuscular Volume 77.7 fL 80.0 -96.0 fL [facility]: 0 [facility] Low Mean Corpuscular Hemoglobin 24.0 pg 27.0-33.0 pg [facility]: [address] [facility] Low Mean Corpuscular HGB Conc 30.9 g/dL 32.0-36.5 g/dL [facility]: 0 [facility] High Red Cell Distribution Width 15.3 % 1 1.5-14.5 % [facility]: 0 [facility] Normal Platelet Count, Automated 302 10 150 -450 10 [facility]: [address] [facility] Normal Neutrophils % 59.7 % 36.0-66.0 % Fin al [facility]: [address] [facility] Normal Lymph % 28.8 % 24.0-44.0 % Final [facility]: [address] [facility] Normal [place] % 5.9 % 2.0-8.0 % Final [facility]: [address] [facility] High Eos % 4.7 % 0.0-3.0 % [facility]: [address] [facility] Normal Baso % 0.5 % 0.0-1.0 % Final [facility]: [address] [facility] Normal Immature Granulocyte % 0.4 % 0-3.0 % [facility]: [address] [facility] Normal Nucleated Red Blood Cell % 0.0 % 0- 0 % [facility]: [address] [facility] Normal Neutrophils # 5.1 10 1.5-8.5 10 [facility]: [address] [facility] Normal Lymph # 2.4 10 1.5-5.0 10 [facility]: [address] [facility] Normal [place] # 0.5 10 0.0-0.8 10 [facility]: [address] [facility] Normal Eos # 0.4 10 0.0-0.5 10 [facility]: [address] [facility] Normal Baso # 0.0 10 0.0-0.2 10 [facility]: [address] [facility] 07/31/2021 Drug Screen, Urine Normal Amphetamines Leve l Urine negative negative [facility]: [address] [facility] Normal Barbiturates Urine negative negative [facility]: [address] [facility] Normal Benzodiazepines Urine negative negat socrates [facility]: [address] [facility] Normal Cannabinoids Urine negative negative [facility]: [address] [facility] Normal Cocaine Metabolite Urine negative ne gative [facility]: [address] [facility] Normal Methadone Urine negative negative Fi [facility]: [address] [facility] High Opiates Urine positive negative Drea l [facility]: [address] [facility] Normal Phencyclidine Urine negative negativ e [facility]: [address] [facility] 07/29/2021 CT + NG RNA, PCR, Unspecified Specimen Urine Normal Chlamydia Trachomatis RNA, Tma, Urogenital not detected not detected Final [facility]: [address], [place] Urine Normal Neisseria Gonorrhoeae RNA, Tma, Urogenital not detected not detected Final [facility] [address], [place] Urine Comment Final [facility]: [address], [place] 07/29/2021 Test, Urine Urine clean catch Hcg n egative [facility]: [address] [facility] [address], [place] 07/25/2021 Thrombosis Prof ([id number]) Normal Homocyste ine 6.5 umol/L . umol/L [facility]: [address] [facility] Normal Factor VIII Activity 91 % . % F inal [facility]: [address] [facility] Normal Antithrombin Activity 127 % . % [facility]: [address] [facility] Normal Prt C Activity(chromogenic) 160 % . % [facility]: [address] [facility] Normal Protein S Antigen, Free 61 % . % [facility]: [address] [facility] Normal Aptt 27.3 sec . sec [facility]: [address] [facility] Normal APTT 1:1 [employer] tnp sec . sec [facility]: [address] [facility] Normal APTT 1:1 Saline tnp sec . sec [facility]: [address] [facility] Normal Lac Interpretation . Fin al [facility]: [address] [facility] Normal Act Prt C Resist W/fv Defic 2.2 rati o . ratio [facility]: [address] [facility] High Drvvt Screen Seconds 72.2 sec . sec [facility]: [address] [facility] Normal Drvvt Confirm Seconds 45.1 sec . sec [facility]: [address] [facility] High Drvvt Ratio 1.4 ratio . ratio [facility]: [address] [facility] Normal Hexagonal Phospholipid Neutal 7 sec . sec [facility]: [address] [facility] Normal Anticardiolipin Ab, IgG <10 gpl . gp l [facility]: [address] [facility] Normal Anticardiolipin Ab, IgM 19 mpl . mpl [facility]: [address] [facility] Normal Beta-2 Glycoprotein I, IgG <10 sgu . sgu [facility]: [address] [facility] Normal Beta-2 Glycoprotein I, IgM <10 smu . smu [facility]: [address] [facility] Normal Beta-2 Glycoprotein I, IgA <10 braden . braden [facility]: [address] [facility] Normal Factor II Gene Mutation Result tnp . [facility]: [address] [facility] Normal Factor II Gene Interpretation tnp . [facility] [address] [facility] Normal Factor II Gene Methodology . [facility]: [address] [facility] Normal Factor II Gene Comments . [facility]: [address] [facility] 07/25/2021 Thrombosis Prof ([id number]) Normal Homocyste ine 6.5 umol/L . umol/L [facility]: [address] [facility] Normal Factor VIII Activity 91 % . % F inal [facility]: [address] [facility] Normal Antithrombin Activity 127 % . % [facility]: [address] [facility] Normal Prt C Activity(chromogenic) 160 % . % [facility]: [address] [facility] Normal Protein S Antigen, Free 61 % . % [facility]: [address] [facility] Normal Aptt 27.3 sec . sec [facility]: [address] [facility] Normal APTT 1:1 [employer] tnp sec . sec [facility]: [address] [facility] Normal APTT 1:1 Saline tnp sec . sec [facility]: [address] [facility] Normal Lac Interpretation . Fin [facility]: [address] [facility] Normal Act Prt C Resist W/fv Defic 2.2 rati o . ratio [facility]: [address] [facility] High Drvvt Screen Seconds 72.2 sec . sec [facility]: [address] [facility] Normal Drvvt Confirm Seconds 45.1 sec . sec [facility]: [address] [facility] High Drvvt Ratio 1.4 ratio . ratio [facility]: [address] [facility] Normal Hexagonal Phospholipid Neutal 7 sec . sec [facility]: [address] [facility] Normal Anticardiolipin Ab, IgG <10 gpl . gp l [facility]: [address] [facility] Normal Anticardiolipin Ab, IgM 19 mpl . mpl [facility]: [address] [facility] Normal Beta-2 Glycoprotein I, IgG <10 sgu . sgu [facility]: [address] [facility] Normal Beta-2 Glycoprotein I, IgM <10 smu . smu [facility]: [address] [facility] Normal Beta-2 Glycoprotein I, IgA <10 braden . braden [facility]: [address] [facility] Normal Factor II Gene Mutation Result tnp . [facility]: [address] [facility] Normal Factor II Gene Interpretation tnp . [facility]: [address] [facility] Normal Factor II Gene Methodology . [facility]: [address] [facility] Normal Factor II Gene Comments . [facility]: [address] [facility] 07/08/2021 Lactic Acid Level, Lactate Normal L actic Acid Level, Lactate 1.6 mmol/L 0.4-2.0 mmol/L [facility] nter: [address] [facility] 07/08/2021 UA W/ Reflex to Culture Normal Appearance, Urine Rfx hazy clear [facility]: [address] [facility] Normal Color, Urine Rfx straw yellow [facility]: [address] [facility] Normal pH,urine Rfx 8.0 units 5.0-9.0 units [facility]: [address] [facility] Normal Specific [place] Ur Auto Rfx 1.014 1.002-1.035 [facility]: [address] [facility] Normal Protein, Urine Auto Rfx negative mg/ dL negative mg/dL [facility]: [address] [facility] Normal Glucose, Urine (UA) Auto Rfx n egative mg/dL negative mg/dL [facility]: [address] [facility] Normal Ketone, Urine Auto Rfx negative mg/d L negative mg/dL [facility]: [address] [facility] Normal Urobilinogen, Urine Auto Rfx 0.2 mg/ dL 0.0-2.0 mg/dL [facility]: [address] [facility] Normal Bilirubin, Urine Auto Rfx negative n egative [facility]: [address] [facility] Normal Nitrite, Urine Auto Rfx negative neg ative [facility]: [address] [facility] Normal Leukocyte Esterase Ur Auto Rfx negat socrates negative [facility]: [address] [facility] High Blood, Urine Blood Rfx 1+ negati ve [facility]: [address] [facility] Normal WBC, Urine Auto Rfx 2 /hpf 0-3 /hpf [facility]: [address] [facility] Normal RBC, Urine Auto Rfx 2 /hpf 0-3 /hpf [facility]: [address] [facility] Normal Bacteria, Urine Auto Rfx negative ne gative [facility]: [address] [facility] Normal Squam Epithelial Cell Ur Aurfx 5 /hp f 0-6 /hpf [facility]: [address] [facility] Normal Hyaline Cast, Urine Auto Rfx 0 /lpf 0-1 /lpf [facility]: [address] [facility] 07/08/2021 Cbc High White Blood Count 18.9 10 4.0-10 .0 10 [facility]: [address] [facility] Low Red Blood Count 3.72 10 4.00-5.40 10 [facility]: [address] [facility] Low Hemoglobin 9.2 g/dL 12.0-15.5 g/dL F inal [facility]: [address] [facility] Low Hematocrit 29.3 % 36.0-47.0 % [facility]: [address] [place] [address] Low Mean Corpuscular Volume 78.8 fL 80.0 -96.0 fL [facility]: [address] [place] [address] Low Mean Corpuscular Hemoglobin 24.7 pg 27.0-33.0 pg [facility]: [address] [place] [address] Low Mean Corpuscular HGB Conc 31.4 g/dL 32.0-36.5 g/dL [facility]: [address] [place] [address] High Red Cell Distribution Width 15.6 % 1 1.5-14.5 % [facility]: 0 [facility] Normal Platelet Count, Automated 391 10 150 -450 10 [facility]: 0 [facility] Normal Nucleated Red Blood Cell % 0.0 % 0- 0 % [facility]: [address] [facility] 07/08/2021 BMP, Serum or Plasma High Glucose, Fastin g 115 mg/dL 70-100 mg/dL [facility]: [address] [facility] Normal Blood Urea Nitrogen 10 mg/dL 7-18 mg /dL [facility]: 0 [facility] Normal Creatinine for GFR 0.67 mg/dL 0.55-1 .30 mg/dL [facility]: [address] [facility] Normal Glomerular Filtration Rate > 60.0 >6 0 [facility]: [address] [facility] Normal Sodium Level 142 mEq/L 136-145 mEq/L [facility]: 0 [facility] D Potassium Serum 4.8 mEq/L 3.5-5.1 mE q/L [facility]: [address] [place] [address] High Chloride Level 109 mEq/L 98-107 mEq/ L [facility]: [address] [place] [address] Normal Carbon Dioxide Level 25 mEq/L 21-32 mEq/L [facility]: [address] [place] [address] Normal Anion Gap 8 mEq/L 8-16 mEq/L [facility]: [address] [place] [address] Normal Calcium Level 8.8 mg/dL 8.5-10.1 mg/ dL [facility]: [address] [place] [address] 07/08/2021 Hepatic Function Panel, Serum Normal AST/SG OT 15 U/L 7-37 U/L [facility]: [address] [place] [address] Normal ALT/SGPT 41 U/L 12-78 U/L [facility]: [address] [place] [address] Normal Alkaline Phosphatase 104 U/L 45-117 U/L [facility]: [address] [place] [address] Low Bilirubin,total 0.1 mg/dL 0.2-1.0 mg /dL [facility]: [address] [place] [address] Normal Bilirubin,direct < 0.1 mg/dL 0.0-0.2 mg/dL [facility]: [address] [place] [address] Low Total Protein 6.1 gm/dL 6.4-8.2 gm/d L [facility]: [address] [place] [address] Low Albumin 3.0 gm/dL 3.2-5.2 gm/dL Drea l [facility]: [address] [place] [address] Low Albumin/globulin Ratio 1.0 1.2-2. 2 [facility]: [address] [place] [address] 07/07/2021 Istat ABG High Istat pH 7.473 units 7.350-7. 450 units [facility]: [address] [place] [address] Normal Istat pCO2 38.4 mmHg 35.0-45.0 mmHg [facility]: [address] [place] [address] Low Istat pO2 70.0 mmHg 80-105 mmHg [facility]: [address] [place] [address] High Istat TCO2 29.0 mmol/L 23.0-27.0 mmo l/L [facility]: [address] [place] [address] High Istat HCO3 28.1 mmol/L 22.0-26.0 mmo l/L [facility]: [address] [place] [address] High Istat Base Excess 5.0 mmol/L -2.0-3. 0 mmol/L [facility]: [address] [place] [address] Normal Istat So2 95 % 95-98 % [facility]: [address] [place] [id number] 07/07/2021 CBC W/ Auto Diff High White Blood Count 14.1 10 4.0-10.0 10 [facility]: [address] [place] [address] Normal Red Blood Count 4.23 10 4.00-5.40 10 [facility]: [address] [place] [address] Low Hemoglobin 10.3 g/dL 12.0-15.5 g/dL [facility]: [address] [place] [address] Low Hematocrit 32.7 % 36.0-47.0 % [facility]: [address] [place] [address] Low Mean Corpuscular Volume 77.3 fL 80.0 -96.0 fL [facility]: [address] [place] [address] Low Mean Corpuscular Hemoglobin 24.3 pg 27.0-33.0 pg [facility]: [address] [place] [address] Low Mean Corpuscular HGB Conc 31.5 g/dL 32.0-36.5 g/dL [facility]: [address] [place] [address] High Red Cell Distribution Width 15.2 % 1 1.5-14.5 % Final [facility]: [address] [facility] Normal Platelet Count, Automated 374 10 150 -450 10 Final [facility]: [address] [facility] Normal Nucleated Red Blood Cell % 0.0 % 0- 0 % [facility]: [address] [facility] 07/07/2021 Differential Panel, Blood Normal Neutrophil s 56 % 28-66 % Final [facility]: [address] [facility] Normal Lymphocytes 30 % 16-44 % Final [facility]: [address] [facility] High Monocytes 7 % 0-5 % Final [facility]: [address] [facility] High Eosinophils 5 % 0-3 % Final [facility]: [address] [facility] Normal Basophils 1 % 0-1 % Final [facility]: [address] [facility] Normal Atypical Lymph 1 % 0-5 % [facility]: [address] [facility] Normal Hypochromasia 1+ Final [facility]: [address] [facility] Normal Anisocytosis 1+ Final [facility]: [address] [facility] Normal Microcytosis 1+ Final [facility]: [address] [facility] Normal Ovalocytes 1+ Final [facility]: [address] [facility] Normal Smudge Cells 1+ Final [facility]: [address] [facility] Normal Platelet Clumps small amt Fin [facility]: [address] [facility] 07/07/2021 Platelet Count, Estimate, Blood Normal Platelet Estimate normal normal Final [facility] Ce nter: [address] [facility] 07/07/2021 Influenza A/B RSV Covid Amp Normal Influenza a Amplification negative negative Final [facility] nter: [address] [facility] Normal Influenza B Amplification negative n egative [facility]: [address] [facility] Normal RSV Amplification negative negative Final [facility]: [address] [facility] Normal Sars Covid-19 Amplification negative negative [facility]: 0 [facility] 07/07/2021 Cardiovascular Assessment Panel, Serum Normal CPK Creatine Phosphokinase 45 U/L 26-192 U/L [facility]: [address] [place] [address] Normal CK-mb Value Mass < 1.0 NG/mL <3.6 NG /mL [facility]: [address] [place] [address] Normal mb/CK Relative Index 2.22 < or =4 [facility]: [address] [place] [address] Normal Troponin I < 0.02 NG/mL < 0.10 NG/mL [facility]: 0 [facility] 07/07/2021 Hepatic Function Panel, Serum Normal AST/SG OT 15 U/L 7-37 U/L [facility]: [address] [place] [address] Normal ALT/SGPT 30 U/L 12-78 U/L [facility]: 0 [facility] Normal Alkaline Phosphatase 111 U/L 45-117 U/L [facility]: 0 [facility] Low Bilirubin,total 0.1 mg/dL 0.2-1.0 mg /dL [facility]: 0 [facility] Normal Bilirubin,direct < 0.1 mg/dL 0.0-0.2 mg/dL [facility]: 0 [facility] Normal Total Protein 6.6 gm/dL 6.4-8.2 gm/d L [facility]: 0 [facility] Normal Albumin 3.2 gm/dL 3.2-5.2 gm/dL Drea l [facility]: [address] [place] [address] Low Albumin/globulin Ratio 0.9 1.2-2. 2 [facility]: [address] [facility] 07/07/2021 BMP, Serum or Plasma Normal Glucose, Fastin g 97 mg/dL 70-100 mg/dL [facility]: 83 0 [facility] Normal Blood Urea Nitrogen 9 mg/dL 7-18 mg/ dL [facility]: [address] [facility] Normal Creatinine for GFR 0.68 mg/dL 0.55-1 .30 mg/dL [facility]: [address] [facility] Normal Glomerular Filtration Rate > 60.0 >6 0 [facility]: [address] [facility] Normal Sodium Level 141 mEq/L 136-145 mEq/L [facility]: [address] [facility] Low Potassium Serum 3.4 mEq/L 3.5-5.1 mE q/L [facility]: [address] [facility] Normal Chloride Level 105 mEq/L 98-107 mEq/ L [facility]: [address] [facility] Normal Carbon Dioxide Level 28 mEq/L 21-32 mEq/L [facility]: [address] [facility] Normal Anion Gap 8 mEq/L 8-16 mEq/L [facility]: [address] [facility] Normal Calcium Level 8.8 mg/dL 8.5-10.1 mg/ dL [facility]: [address] [facility] 07/07/2021 Drug Screen, Urine Normal Amphetamines Leve l Urine negative negative [facility]: [address] 0 [facility] High Barbiturates Urine positive negative [facility]: [address] [facility] High Benzodiazepines Urine positive negat socrates [facility]: [address] [facility] Normal Cannabinoids Urine negative negative [facility]: [address] [facility] Normal Cocaine Metabolite Urine negative ne gative [facility]: [address] [facility] Normal Methadone Urine negative negative Fi nal [facility]: [address] [facility] High Opiates Urine positive negative Drea l [facility]: [address] [facility] Normal Phencyclidine Urine negative negativ e [facility]: [address] [facility] 07/07/2021 ESR (Erythrocyte Sedimentation Rate), Blood Hig h Erythrocyte Sedimentation Rate 52 mm/HR 0-20 mm/HR [facility] Center: [address] [facility] 07/07/2021 D-dimer, Quant, Plasma Normal D-dimer Quant 333.30 NG/mL <500 NG/mL Final [facility]: [address] 0 [facility] 07/07/2021 Lactic Acid, Serum or Plasma Panic High Lactic Acid Sepsis Protocol 4.1 mmol/L 0.4-2.0 mmol/L Final [facility] Center: [address] [facility] 07/07/2021 Respiratory Virus Panel NASOPHARYNX No observ ation recorded. [facility]: [address] [facility] 07/07/2021 Magnesium, Serum or Plasma Normal Magnesium Level 1.8 mg/dL 1.8-2.4 mg/dL Final [facility]: [address] 0 [facility] 07/07/2021 Pro BNP (Pro B-type Natriuretic Peptide), Serum or Plasma Normal Nt-pro BNP 30 pg/mL <125 pg/mL [facility]: [address] [facility] 07/07/2021 TIBC (Total Iron-binding Capacity), Serum Low Iron (Fe) 25 ug/dL 50-170 ug/dL [facility] nter: 0 [facility] Normal Total Iron Binding Capacity 376 ug/d L 250-450 ug/dL [facility]: 0 [facility] Low Percent Saturation 6.6 % 13.2-45.0 % [facility]: [address] [facility] 07/07/2021 C3 (Complement), Serum or Plasma Normal Complement C3 166 mg/dL 90-180 mg/dL [facility] nter: [address] [facility] 07/07/2021 C4 (Complement), Serum or Plasma High Com plement C4 46 mg/dL 10-40 mg/dL [facility]: [address] 0 [facility] 07/07/2021 Vitamin B12, Serum Normal Vitamin B12 Level 850 pg/mL 247-911 pg/mL [facility]: 83 0 [facility] 07/07/2021 Folate, Serum Normal Folate 10.6 NG/mL >5.4 NG /mL [facility]: [address] [facility] 07/07/2021 Ferritin, Serum or Plasma Normal Ferritin 19 NG/mL 8-252 NG/mL [facility]: [address] [facility] 07/07/2021 C Reactive Protein, QN, Serum or Plasma High C Reactive Protein Quantitativ 3.58 mg/dL 0.00-0.30 mg/dL [facility]: [address] [facility] 07/07/2021 Glucose, Fingerstick, Blood High Bedside Glucose 178 mg/dL 70- 105 mg/dL [facility]: [address] 0 [facility] 07/07/2021 Gas Panel, Arterial Blood High ABG pH (Ar terial) 7.468 units 7.350-7.450 units [facility]: [address] 0 [facility] Low ABG Partial Pressure CO2 32.8 mmHg 3 5.0-45.0 mmHg [facility]: [address] [facility] Low ABG Partial Pressure O2 61.5 mmHg 75 .0-100.0 mmHg [facility]: [address] [facility] Normal ABG Total CO2 24.2 mEq/L 22.0-29.0 m Eq/L [facility]: [address] [facility] Normal Abg Hco3 23.2 mEq/L 22.0-26.0 mEq/L [facility]: [address] [facility] Normal ABG Base Excess 0.0 -2.0-2.0 Drea l [facility]: [address] [facility] Normal ABG Standard HCO3 24.4 mEq/L 22.0-26 .0 mEq/L [facility]: 0 [facility] Low ABG O2 Saturation 91.9 % 95.0-99.0 % [facility]: [address] [facility] 07/07/2021 Lactic Acid, Serum or Plasma Panic High Lactic Acid Sepsis Protocol 4.8 mmol/L 0.4-2.0 mmol/L [facility]: [address] [place] [address] 07/07/2021 Procalcitonin, Serum Normal Procalcitonin 0.09 [facility]: [address] [place] [address] 07/07/2021 Choriogonadotropin, Quant, Serum or Plasma Norm al HCG, Serum Quantitative < 1.0 mIU/mL [facility]: [address] [place] [address] 07/07/2021 Troponin I, Blood Normal Troponin I < 0.02 NG/mL < 0.10 NG/mL [facility]: [address] [place] [address] 07/07/2021 TSH, Serum or Plasma Normal Thyroid Stimulating Hormone 0.696 uIU/mL 0.358-3.740 uIU/mL [facility] nter: [address] [place] [address] 07/07/2021 T4, Free, Serum Low Free T4 0.65 NG/dL 0.76 -1.46 NG/dL [facility]: [address] [place] [address] 07/07/2021 T3, Total, Serum Low Total T3 49.3 NG/d L 60.0-181.0 NG/dL [facility]: [address] [place] [address] 07/07/2021 Sickle Cell Screen, Qual, Light Microscopy, Blood Normal Sickle Cell Screen negative negative [facility]: [address] [place] [address] 07/07/2021 Lactic Acid Level, Lactate Panic High Lactic Acid Level, Lactate 4.3 mmol/L 0.4-2.0 mmol/L [facility]: [address] [place] [address] 07/07/2021 Lactic Acid, Serum or Plasma Panic High Lactic Acid Sepsis Protocol 3.7 mmol/L 0.4-2.0 mmol/L [facility]: [address] [place] [address] 07/07/2021 Periph Smear for Path Review Normal Slide R theresa report [facility]: [address] [place] [address] Normal Source peripheral smear [facility]: [address] [place] [address] Normal Reason for Review atypical lymphs [facility]: [address] [facility] 07/07/2021 Mrsa Screen, PCR Normal MRSA PCR Screen no t detected negative [facility]: [address] [facility] 07/07/2021 Culture, Blood BLOOD No observation recorded. [facility]: [address] [facility] 07/07/2021 Pathology Request for Service Periph eral Smear-path Review [facility]: [address] 0 [facility] 07/07/2021 LDH Lactate Dehydrogenase Normal LD H Lactate Dehydrogenase 245 U/L 84-246 U/L [facility] nter: [address] [facility] 07/07/2021 Acetaminophen, Serum Low Acetaminophen L evel 8.7 ug/mL 10.0- 30.0 ug/mL [facility]: [address] 0 [facility] 07/07/2021 Culture, Blood BLOOD No observation recorded. [facility]: [address] [facility] 07/07/2021 Haptoglobin Normal Haptoglobin 208 mg/dL 33-27 8 mg/dL [facility]: [address] [facility] 07/07/2021 Complement C2, Serum Normal Complement C2 2.8 mg/dL 1.4-3.3 mg/dL [facility]: [address] 0 [facility] 07/02/2021 SARS CoV 2 RNA (COVID-19), QL, milling supervisor-PCR, Respiratory Specim en Covid-19 PCR negative negative [facility]): 4 [facility] 07/02/2021 Lactic Acid La 1.1 mmol/L 0.4-2.0 mmo l/L [facility]): 4 [facility] 07/02/2021 CMP, Serum or Plasma Glu 100 mg/dL 74- 106 mg/dL [facility]): 4 [facility] Bun 9 mg/dL 7-18 mg/dL [facility]): 4 [facility] Cre 0.67 mg/dL 0.6-1.0 mg/dL [facility]): 4 [facility] Na 141 mmol/L 136-145 mmol/L [facility] ([facility]): 4 [facility] Low K 3.3 mmol/L 3.5-5.1 mmol/L [facility] ([facility]): 4 [facility] Cl 103 mmol/L 98-107 mmol/L [facility] ([facility]): 4 [facility] Co2 27 mmol/L 21-32 mmol/L [facility] ([facility]): 4 [facility] Ca 8.9 mg/dL 8.5-10.1 mg/dL [facility] ([facility]): 4 [facility] Gap 11.0 mmol/L 5-12 mmol/L [facility] ([facility]): 4 [facility] Gfr >90 mL/min [facility] ([facility]): 4 [facility] Low Ast 9 U/L 15-37 U/L Final [facility] ([facility]): 4 [facility] Alt 23 U/L 12-78 U/L Final [facility] ([facility]): 4 [facility] High Alk 119 U/L 46-116 U/L [facility] ([facility]): 4 [facility] Low Tbili 0.1 mg/dL 0.2-1.0 mg/dL [facility] ([facility]): 4 [facility] Tp 6.9 g/dL 6.4-8.2 g/dL Final [facility] ([facility]): 4 [facility] Low Alb 3.1 gm/dL 3.4-5.0 gm/dL [facility] ([facility]): 4 [facility] 07/02/2021 Bnp Bnp 28 pg/mL 0-125 pg/mL [facility] ([facility]): 4 [facility] 07/02/2021 Urine Microscopic High Urbc tntc /hpf 0-3 /h pf [facility] ([facility]): 4 [facility] High UWBC Reflex 0-2 /hpf 0-5 /hpf [facility] ([facility]): 4 [facility] Uec 1+ /hpf 0 /hpf Final [facility]): 4 [facility] High Ub Reflex 1+ none seen Final [facility] ([facility]): 4 [facility] Uyeast present Final [facility]): 4 [facility] 07/02/2021 Urinalysis Complete, Reflex Culture Ucol yellow [facility] ([facility]): 4 [facility] Uapp slighty cloudy Final [facility] ([facility]): 4 [facility] Ugl negative mg/dL negative mg/dL [facility] ([facility]): 4 [facility] Ubil negative negative [facility] ([facility]): 4 [facility] Uket negative mg/dL negative mg/dL [facility] ([facility]): 4 [facility] Sgu 1.010 1.005-1.030 [facility] ([facility]): 4 [facility] High Ubl Reflex 3+(large) negative [facility] ([facility]): 4 [facility] Yimi 6.5 5.0-9.0 Final [facility] ([facility]): 4 [facility] Upro Reflex negative mg/dL negative mg/dL [facility] ([facility]): 4 [facility] Uuro normal(0.2-1) mg/dL 0-1 mg/dL [facility] ([facility]): 4 [facility] Unit Reflex negative negative [facility] ([facility]): 4 [facility] Ule Reflex negative negative [facility] ([facility]): 4 [facility] 07/02/2021 Magnesium, Serum or Plasma mg 2.0 mg/ dL 1.8-2.4 mg/dL [facility] ([facility]): 4 [facility] 07/02/2021 Troponin-high Sensitivity Trophs 5.4 NG /L 0-60.4 NG/L [facility] ([facility]): 4 [facility] 07/02/2021 Troponin-high Sensitivity Trophs 4.6 NG /L 0-60.4 NG/L [facility] ([facility]): 4 [facility] 07/02/2021 TORCH Respiratory Panel Tadeno not detected detected not detected Final [facility] ([facility]): [address] [place] [id number] not detected detected not detected Final [facility] ([facility]): 4 [facility] , [place] Tcorohku1 not detected detected not detected Final [facility] ([facility]): 4 [facility] , [place] [id number] not detected detected not detected [facility] ([facility]): 4 [facility] , [place] [id number] not detected detected not detected [facility] ([facility]): 4 [facility] , [place] Tcorosars2 not detected detected not detected [facility] ([facility]): 4 [facility], [place] Thummet not detected detected not de tected Final [facility] ([facility]): 4 [facility] [place] Thumrhino detected detected not dete cted [facility] ([facility]): 4 [facility] Tflua not detected detected not dete cted [facility] ([facility]): 4 [facility] Tflub not detected detected not dete cted Final [facility] ([facility]): 4 [facility] [place] Tparaflu1 not detected detected not detected [facility] ([facility]): 4 [facility] Tparaflu2 not detected detected not detected [facility] ([facility]): 4 [facility] [place] Tparaflu3 not detected detected not detected [facility] ([facility]): 4 [facility] [place] Tparaflu4 not detected detected not detected [facility] ([facility]): 4 [facility] Trsv not detected detected not detec jina [facility] ([facility]): 4 [facility] [place] Tbordpara not detected detected not detected [facility] ([facility]): 4 [facility] [place] Tbord not detected detected not dete cted [facility] ([facility]): 4 [facility] Tchlamypne not detected detected not detected [facility] ([facility]): 4 [facility] , [place] Tmycpne not detected detected not de tected Final [facility] ([facility]): 4 [facility] 07/02/2021 CBC W/ Auto Diff Wbc 8.3 K/mm3 4.0-10. 0 K/mm3 Final [facility] ([facility]): 4 [facility] Rbc 4.10 M/mm3 4.00-5.50 M/mm3 [facility] ([facility]): 4 [facility] Low Hgb 10.2 gm/dL 12.0-16.0 gm/dL [facility] ([facility]): 4 [facility] Low Hct 30.9 % 36.0-48.8 % Final [facility] ([facility]): 4 [facility] Low Mcv 75.4 fL 80-96 fL Final [facility]): 4 [facility] Low Mch 24.9 pg 27.0-31.0 pg Final [facility] ([facility]): 4 [facility] Mchc 33.0 g/dL 32.0-36.0 g/dL Final [facility] ([facility]): 4 [facility] High Rdw 14.8 % 10.0-14.5 % Final [facility] ([facility]): 4 [facility] Plt 336 K/mm3 172-450 K/mm3 Final [facility] ([facility]): 4 [facility] Mpv 10.2 fL 9.0-13.0 fL Final [facility] ([facility]): 4 [facility] High Gr% 88.9 % 50-80.0 % [facility] 4 [facility] High Ig% 0.4 % 0.0-0.2 % [facility] 4 [facility] Low Ly% 8.8 % 25.0-50.0 % Final [facility] ([facility]): 4 [facility] Low Mo% 1.8 % 2.0-10.0 % Final [facility] ([facility]): 4 [facility] Eo% 0.0 % 0-5.0 % [facility] 4 [facility] Ba% 0.1 % 0.0-2.0 % Final [facility] ([facility]): 4 [facility] Gr# 7.4 K/mm3 2.0-8.00 K/mm3 [facility] ([facility]): 4 [facility] Ig# 0.0 K/mm3 0.0-0.2 K/mm3 [facility] ([facility]): 4 [facility] Low Ly# 0.7 K/mm3 1.0-5.0 K/mm3 [facility] ([facility]): 4 [facility] Mo# 0.2 K/mm3 0.10-1.20 K/mm3 [facility] ([facility]): 4 [facility] Eo# 0.0 K/mm3 0.0-0.5 K/mm3 [facility] ([facility]): 4 [facility] Ba# 0.0 K/mm3 0.0-0.2 K/mm3 [facility] ([facility]): 4 [facility] 07/02/2021 Gas Panel, Venous Blood High Vph 7.44 7.3 1-7.41 [facility] ([facility]): 4 [facility] Low Vpco2 35.1 mmHg 41-51 mmHg [facility] ([facility]): 4 [facility] High Vpo2 89 mmHg 35-42 mmHg [facility] ([facility]): 4 [facility] High Vo2 Sat 97.3 % 68-77 % [facility] ([facility]): 4 [facility] Low Vhco3 23.5 mEq/L 24.0-25.0 mEq/L [facility] ([facility]): 4 [facility] Vbe 0.1 -3.0-3.0 [facility] ([facility]): 4 [facility] Vctco2 24.6 mmol/L 23.0-32.0 mmol/L [facility] ([facility]): 4 [facility] 07/02/2021 CMP, Serum or Plasma High Glu 164 mg/dL 74- 106 mg/dL [facility] ([facility]): 4 [facility] Low Bun 5 mg/dL 7-18 mg/dL [facility] ([facility]): 4 [facility] Cre 0.72 mg/dL 0.6-1.0 mg/dL [facility] ([facility]): 4 [facility] Na 141 mmol/L 136-145 mmol/L [facility] ([facility]): 4 [facility] K 3.7 mmol/L 3.5-5.1 mmol/L [facility] ([facility]): 4 [facility] Cl 104 mmol/L 98-107 mmol/L [facility] ([facility]): 4 [facility] Co2 25 mmol/L 21-32 mmol/L [facility] ([facility]): 4 [facility] Ca 8.7 mg/dL 8.5-10.1 mg/dL [facility] ([facility]): 4 [facility] Gap 12.0 mmol/L 5-12 mmol/L [facility] ([facility]): 4 [facility] Gfr >90 mL/min [facility] ([facility]): 4 [facility] Low Ast 14 U/L 15-37 U/L Final [facility] ([facility]): 4 [facility] Alt 31 U/L 12-78 U/L Final [facility] ([facility]): 4 [facility] Alk 113 U/L 46-116 U/L [facility] ([facility]): 4 [facility] Low Tbili < 0.1 mg/dL 0.2-1.0 mg/dL Drea l [facility] ([facility]): 4 [facility] Tp 6.9 g/dL 6.4-8.2 g/dL [facility] ([facility]): 4 [facility] Low Alb 3.0 gm/dL 3.4-5.0 gm/dL [facility] ([facility]): 4 [facility] 07/02/2021 C Reactive Protein High Crp 55.8 mg/L 0.0-3 .0 mg/L [facility] ([facility]): 4 [facility] 04/02/2021 CBC W/ Auto Diff High White Blood Count 13.0 10 4.0-10.0 10 [facility]: 8[address] [facility] Normal Red Blood Count 4.29 10 4.00-5.40 10 [facility]: [address] [facility] Low Hemoglobin 10.4 g/dL 12.0-15.5 g/dL [facility]: [address] [place] [address] Low Hematocrit 33.8 % 36.0-47.0 % [facility]: [address] [place] [address] Low Mean Corpuscular Volume 78.8 fL 80.0 -96.0 fL [facility]: [address] [place] [address] Low Mean Corpuscular Hemoglobin 24.2 pg 27.0-33.0 pg [facility]: [address] [place] [address] Low Mean Corpuscular HGB Conc 30.8 g/dL 32.0-36.5 g/dL [facility]: [address] [place] [address] High Red Cell Distribution Width 15.7 % 1 1.5-14.5 % [facility]: [address] [place] [address] Normal Platelet Count, Automated 361 10 150 -450 10 [facility]: 0 [facility] Normal Neutrophils % 62.9 % 36.0-66.0 % Fin [facility]: [address] [facility] Normal Lymph % 28.4 % 24.0-44.0 % Final [facility]: 8[address] [facility] Normal [place] % 5.2 % 2.0-8.0 % [facility]: 8[address] [facility] Normal Eos % 2.5 % 0.0-3.0 % [facility]: 0 [facility] Normal Baso % 0.5 % 0.0-1.0 % [facility]: [address] [facility] Normal Immature Granulocyte % 0.5 % 0-3.0 % [facility]: 0 [facility] Normal Nucleated Red Blood Cell % 0.0 % 0- 0 % [facility]: [address] [place] [address] Normal Neutrophils # 8.2 10 1.5-8.5 10 [facility]: 0 [facility] Normal Lymph # 3.7 10 1.5-5.0 10 [facility]: [address] [place] [address] Normal [place] # 0.7 10 0.0-0.8 10 [facility]: [address] [place] [address] Normal Eos # 0.3 10 0.0-0.5 10 [facility]: [address] [place] [address] Normal Baso # 0.1 10 0.0-0.2 10 [facility]: [address] [place] [address] 04/02/2021 PT/INR Normal Prothrombin Time 13.6 secon ds 12.5-14.3 seconds [facility]: [address] [place] [address] Normal Inr 1.02 [facility]: [address] [place] [address] 04/02/2021 Partial Thromboplastin Time Normal Partial Thromboplastin Time 34.5 seconds 24.2-38.5 seconds [facility] nter: [address] [place] [address] 04/02/2021 Cardiovascular Assessment Panel, Serum Normal CPK Creatine Phosphokinase 155 U/L 26-192 U/L [facility]: [address] [place] [address] Normal CK-mb Value Mass < 1.0 NG/mL <3.6 NG /mL [facility]: [address] [place] [address] Normal mb/CK Relative Index 0.65 < or =4 [facility]: [address] [place] [address] Normal Troponin I < 0.02 NG/mL < 0.10 NG/mL [facility]: [address] [place] [address] 04/02/2021 Hepatic Function Panel, Serum Normal AST/SG OT 12 U/L 7-37 U/L [facility]: [address] [place] [address] Normal ALT/SGPT 27 U/L 12-78 U/L [facility]: [address] [place] [address] High Alkaline Phosphatase 132 U/L 45-117 U/L [facility]: [address] [place] [address] Low Bilirubin,total 0.1 mg/dL 0.2-1.0 mg /dL [facility]: [address] [place] [address] Normal Bilirubin,direct < 0.1 mg/dL 0.0-0.2 mg/dL [facility]: [address] [place] [address] Normal Total Protein 6.4 gm/dL 6.4-8.2 gm/d L [facility]: [address] [place] [address] Normal Albumin 3.2 gm/dL 3.2-5.2 gm/dL Drea l [facility]: [address] [place] [address] Low Albumin/globulin Ratio 1.0 1.2-2. 2 [facility]: [address] [place] [address] 04/02/2021 C-reactive Protein, Qualitative, Serum Normal Glucose, Fasting 88 mg/dL 70-100 mg/dL [facility] nter: [address] [place] [address] Normal Blood Urea Nitrogen 7 mg/dL 7-18 mg/ dL [facility]: [address] [place] [address] Normal Creatinine for GFR 0.71 mg/dL 0.55-1 .30 mg/dL [facility]: [address] [place] [address] Normal Glomerular Filtration Rate > 60.0 >6 0 [facility]: [address] [place] [address] Normal Sodium Level 142 mEq/L 136-145 mEq/L [facility]: [address] [place] [address] Normal Potassium Serum 3.6 mEq/L 3.5-5.1 mE q/L [facility]: [address] [place] [address] High Chloride Level 111 mEq/L 98-107 mEq/ L [facility]: [address] [place] [address] Normal Carbon Dioxide Level 28 mEq/L 21-32 mEq/L [facility]: [address] [place] [address] Low Anion Gap 3 mEq/L 8-16 mEq/L [facility]: [address] [facility] Low Calcium Level 8.3 mg/dL 8.5-10.1 mg/ dL [facility]: [address] [facility] 04/02/2021 Amylase, Serum or Plasma Normal Amylase 30 U/L 25-115 U/L [facility]: 830 [facility] 04/02/2021 Lipase, Serum or Plasma Low Lipase 45 U/L 7 3-393 U/L [facility]: 830 [facility] 04/02/2021 Ethanol, Blood Normal Ethyl Alcohol (Ethano l) < 0.003 % 0.000- 0.010 % [facility]: 83 0 [facility] 04/02/2021 Lactic Acid, Serum or Plasma Normal Lactic Acid Sepsis Protocol 1.6 mmol/L 0.4-2.0 mmol/L [facility]: [address] [facility] 04/02/2021 Type + Screen, Serum Normal Blood Type O posit socrates [facility]: [address] [facility] Normal Ab Screen (Indirect Colin)vis negat socrates [facility]: [address] [facility] 04/02/2021 UA W/ Reflex to Culture Normal Appearance, Urine Rfx clear clear [facility]: 83 0 [facility] Normal Color, Urine Rfx yellow yellow [facility]: [address] [facility] Normal pH,urine Rfx 6.0 units 5.0-9.0 units [facility]: 8[address] [facility] Normal Specific [place] Ur Auto Rfx 1.018 1.002-1.035 [facility]: [address] [facility] Normal Protein, Urine Auto Rfx negative mg/ dL negative mg/dL [facility]: [address] [facility] Normal Glucose, Urine (UA) Auto Rfx n egative mg/dL negative mg/dL [facility]: [address] [facility] Normal Ketone, Urine Auto Rfx negative mg/d L negative mg/dL [facility]: [address] [facility] Normal Urobilinogen, Urine Auto Rfx 0.2 mg/ dL 0.0-2.0 mg/dL [facility]: [address] [facility] Normal Bilirubin, Urine Auto Rfx negative n egative [facility]: [address] [facility] Normal Nitrite, Urine Auto Rfx negative neg ative [facility]: [address] [facility] Normal Leukocyte Esterase Ur Auto Rfx negat socrates negative [facility]: [address] [facility] Normal Blood, Urine Blood Rfx negative nega tive [facility]: [address] [facility] Normal WBC, Urine Auto Rfx 0 /hpf 0-3 /hpf [facility]: [address] [facility] Normal RBC, Urine Auto Rfx 0 /hpf 0-3 /hpf [facility]: [address] [facility] Normal Bacteria, Urine Auto Rfx negative ne gative [facility]: [address] [facility] Normal Squam Epithelial Cell Ur Aurfx 3 /hp f 0-6 /hpf [facility]: [address] [facility] Normal Mucus, Urine Rfx small negative Fin al [facility]: [address] [facility] Normal Hyaline Cast, Urine Auto Rfx 0 /lpf 0-1 /lpf [facility]: [address] [facility] 04/02/2021 Drug Screen, Urine Normal Amphetamines Leve l Urine negative negative [facility]: 83 0 [facility] High Barbiturates Urine positive negative [facility]: [address] [facility] Normal Benzodiazepines Urine negative negat socrates [facility]: [address] [facility] High Cannabinoids Urine positive negative [facility]: [address] [facility] Normal Cocaine Metabolite Urine negative ne gative [facility]: [address] [facility] Normal Methadone Urine negative negative Fi nal [facility]: [address] [facility] Normal Opiates Urine negative negative Drea l [facility]: [address] [facility] Normal Phencyclidine Urine negative negativ e [facility]: [address] [facility] 03/07/2021 CBC W/ Auto Diff Blood venous No observation re corded. [facility]: [address] [facility] [address] [place] 03/07/2021 TSH + Free T4, Serum Blood venous No observa tion recorded. 03/07/2021 CMP, Serum or Plasma Blood venous No observa tion recorded. 03/07/2021 Lipid Panel, Serum Blood venous No observation recorded. [facility]: [address] [facility] [address], [place] 03/07/2021 HbA1C (Hemoglobin a1C), Blood Blood venous No observation recorded. [facility]: [address] [facility] [address] [place] 03/07/2021 Vitamin D, 25-Hydroxy, Total, Serum Blood venous No observation recorded. [facility]: [address] [facility] [address] [place] 03/07/2021 Lupus Anticoagulant, Plasma Blood venous No observation recorded. [facility]: [address] [facility] [address] [place] 03/05/2021 Levetiracetam, Serum Normal Levetiracetam ( Keppra) 10.2 ug/mL 10.0-40.0 ug/mL [facility]: 83 0 [facility] 02/20/2021 Istat Chem8+ Panel Low Istat HCT 37.0 % 38. 0-51.0 % [facility]: [address] [facility] Normal Istat Glucose 94 mg/dL 70-105 mg/dL [facility]: [address] [facility] Normal Istat Sodium 140 mEq/L 136-145 mEq/L [facility]: [address] [facility] Normal Istat Potassium 4.3 mEq/L 3.5-5.1 mE q/L [facility]: [address] [facility] Normal Istat Ca++ 5.0 mg/dL 4.5-5.3 mg/dL F inal [facility]: [address] [facility] Normal Istat Chloride 107 mEq/L 98-109 mEq/ L [facility]: [address] [facility] Normal Istat CO2 26.0 mm/L 23.0-27.0 mm/L F [facility]: [address] [facility] Normal Istat BUN 9 mg/dL 8-26 mg/dL [facility]: [address] [place] [address] Low Istat Creatinine 0.5 mg/dL 0.6-1.3 m g/dL [facility]: [address] [place] [address] 02/20/2021 CBC W/ Auto Diff High White Blood Count 12.7 10 4.0-10.0 10 [facility]: [address] [place] [address] Normal Red Blood Count 4.60 10 4.00-5.40 10 [facility]: [address] [place] [address] Low Hemoglobin 11.4 g/dL 12.0-15.5 g/dL [facility]: 0 [facility] Normal Hematocrit 37.4 % 36.0-47.0 % [facility]: [address] [place] [address] Normal Mean Corpuscular Volume 81.3 fL 80.0 -96.0 fL [facility]: [address] [place] [address] Low Mean Corpuscular Hemoglobin 24.8 pg 27.0-33.0 pg [facility]: [address] [place] [address] Low Mean Corpuscular HGB Conc 30.5 g/dL 32.0-36.5 g/dL [facility]: [address] [place] [address] High Red Cell Distribution Width 15.2 % 1 1.5-14.5 % [facility]: [address] [place] [address] Normal Platelet Count, Automated 303 10 150 -450 10 [facility]: 0 [facility] Normal Neutrophils % 63.4 % 36.0-66.0 % Fin [facility]: 0 [facility] Normal Lymph % 28.5 % 24.0-44.0 % Final [facility]: [address] [facility] Normal [place] % 5.6 % 2.0-8.0 % [facility]: [address] [facility] Normal Eos % 1.7 % 0.0-3.0 % [facility]: [address] [facility] Normal Baso % 0.4 % 0.0-1.0 % [facility]: [address] [place] [address] Normal Immature Granulocyte % 0.4 % 0-3.0 % [facility]: [address] [place] [address] Normal Nucleated Red Blood Cell % 0.0 % 0- 0 % [facility]: [address] [place] [address] Normal Neutrophils # 8.1 10 1.5-8.5 10 [facility]: [address] [place] [address] Normal Lymph # 3.6 10 1.5-5.0 10 [facility]: [address] [facility] Normal [place] # 0.7 10 0.0-0.8 10 [facility]: 0 [facility] Normal Eos # 0.2 10 0.0-0.5 10 [facility]: 0 [facility] Normal Baso # 0.1 10 0.0-0.2 10 [facility]: 0 [facility] 02/20/2021 ESR (Erythrocyte Sedimentation Rate), Blood Hig h Erythrocyte Sedimentation Rate 36 mm/HR 0-20 mm/HR [facility]: [address] [place] [address] 02/20/2021 Hepatic Function Panel, Serum Normal AST/SG OT 12 U/L 7-37 U/L [facility]: 0 [facility] Normal ALT/SGPT 45 U/L 12-78 U/L [facility]: [address] [place] [address] High Alkaline Phosphatase 166 U/L 45-117 U/L [facility]: [address] [place] [address] Low Bilirubin,total < 0.1 mg/dL 0.2-1.0 mg/dL [facility]: [address] [place] [address] Normal Bilirubin,direct < 0.1 mg/dL 0.0-0.2 mg/dL [facility]: [address] [place] [address] Normal Total Protein 6.6 gm/dL 6.4-8.2 gm/d L [facility]: [address] [place] [address] Normal Albumin 3.4 gm/dL 3.2-5.2 gm/dL Drea l [facility]: [address] [place] [address] Low Albumin/globulin Ratio 1.1 1.2-2. 2 [facility]: [address] [place] [address] 02/20/2021 C Reactive Protein, QN, Serum or Plasma High C Reactive Protein Quantitativ 2.71 mg/dL 0.00-0.30 mg/dL [facility]: [address] [place] [address] 01/05/2021 Urinalysis, Dipstick, Auto No observation recorded. 01/05/2021 Test, Urine No observation kesha rded. 12/06/2020 Cbc High White Blood Count 12.8 10 4.0-10 .0 10 [facility]: [address] [place] [address] Normal Red Blood Count 4.47 10 4.00-5.40 10 [facility]: [address] [place] [address] Low Hemoglobin 11.4 g/dL 12.0-15.5 g/dL [facility]: [address] [place] [address] Normal Hematocrit 36.5 % 36.0-47.0 % [facility]: [address] [place] [address] Normal Mean Corpuscular Volume 81.7 fL 80.0 -96.0 fL [facility]: [address] [place] [address] Low Mean Corpuscular Hemoglobin 25.5 pg 27.0-33.0 pg [facility]: [address] [place] [address] Low Mean Corpuscular HGB Conc 31.2 g/dL 32.0-36.5 g/dL [facility]: [address] [facility] Normal Red Cell Distribution Width 13.8 % 1 1.5-14.5 % [facility]: [address] [facility] Normal Platelet Count, Automated 350 10 150 -450 10 [facility]: [address] [facility] Normal Nucleated Red Blood Cell % 0.0 % 0- 0 % [facility]: [address] [facility] 12/05/2020 CBC W/ Auto Diff High White Blood Count 16.0 10 4.0-10.0 10 [facility]: [address] [facility] Normal Red Blood Count 4.80 10 4.00-5.40 10 [facility]: [address] [facility] Normal Hemoglobin 12.1 g/dL 12.0-15.5 g/dL [facility]: 0 [facility] Normal Hematocrit 39.0 % 36.0-47.0 % [facility]: [address] [facility] Normal Mean Corpuscular Volume 81.3 fL 80.0 -96.0 fL [facility]: [address] [facility] Low Mean Corpuscular Hemoglobin 25.2 pg 27.0-33.0 pg [facility]: 0 [facility] Low Mean Corpuscular HGB Conc 31.0 g/dL 32.0-36.5 g/dL [facility]: [address] [facility] Normal Red Cell Distribution Width 13.8 % 1 1.5-14.5 % [facility]: [address] [facility] Normal Platelet Count, Automated 370 10 150 -450 10 [facility]: [address] [facility] High Neutrophils % 74.0 % 36.0-66.0 % [facility]: [address] [facility] Low Lymph % 19.3 % 24.0-44.0 % [facility]: [address] [facility] Normal [place] % 3.7 % 0.0-5.0 % [facility]: [address] [facility] Normal Eos % 2.1 % 0.0-3.0 % [facility]: [address] [facility] Normal Baso % 0.5 % 0.0-1.0 % [facility]: [address] [facility] Normal Immature Granulocyte % 0.4 % 0-3.0 % [facility]: [address] [facility] Normal Nucleated Red Blood Cell % 0.0 % 0- 0 % [facility]: [address] [facility] High Neutrophils # 11.8 10 1.5-8.5 10 Fin [facility]: [address] [facility] Normal Lymph # 3.1 10 1.5-5.0 10 [facility]: [address] [facility] Normal [place] # 0.6 10 0.0-0.8 10 [facility]: [address] [facility] Normal Eos # 0.3 10 0.0-0.5 10 [facility]: 8[address] [facility] Normal Baso # 0.1 10 0.0-0.2 10 [facility]: 0 [facility] 12/05/2020 Hepatic Function Panel, Serum Low AST/SG OT 6 U/L 7-37 U/L [facility]: 0 [facility] Normal ALT/SGPT 19 U/L 12-78 U/L [facility]: [address] [facility] High Alkaline Phosphatase 136 U/L 45-117 U/L [facility]: 0 [facility] Low Bilirubin,total < 0.1 mg/dL 0.2-1.0 mg/dL [facility]: 0 [facility] Normal Bilirubin,direct < 0.1 mg/dL 0.0-0.2 mg/dL [facility]: 0 [facility] Normal Total Protein 7.4 gm/dL 6.4-8.2 gm/d L [facility]: 0 [facility] Normal Albumin 3.7 gm/dL 3.2-5.2 gm/dL Drea l [facility]: 0 [facility] Low Albumin/globulin Ratio 1.0 1.2-2. 2 [facility]: [address] [facility] 12/05/2020 BMP, Serum or Plasma Normal Glucose, Fastin g 90 mg/dL 70-100 mg/dL [facility]: 83 0 [facility] Normal Blood Urea Nitrogen 15 mg/dL 7-18 mg /dL [facility]: 0 [facility] Normal Creatinine for GFR 0.83 mg/dL 0.55-1 .30 mg/dL [facility]: 0 [facility] Normal Glomerular Filtration Rate > 60.0 >6 0 [facility]: [address] [facility] Normal Sodium Level 141 mEq/L 136-145 mEq/L [facility]: 0 [facility] Normal Potassium Serum 3.6 mEq/L 3.5-5.1 mE q/L [facility]: [address] [facility] High Chloride Level 110 mEq/L 98-107 mEq/ L [facility]: 0 [facility] Normal Carbon Dioxide Level 21 mEq/L 21-32 mEq/L [facility]: 0 [facility] Normal Anion Gap 10 mEq/L 8-16 mEq/L [facility]: 0 [facility] Normal Calcium Level 9.3 mg/dL 8.5-10.1 mg/ dL [facility]: [address] [facility] 12/05/2020 Lipase, Serum or Plasma Normal Lipase 165 U/L 73-393 U/L [facility]: 0 [facility] 12/05/2020 PT/INR High Prothrombin Time 23.9 secon ds 12.5-14.3 seconds [facility]: 0 [facility] Normal Inr 2.09 [facility]: 0 [facility] 12/05/2020 Partial Thromboplastin Time High Partial Thromboplastin Time 56.4 seconds 24.2-38.5 seconds [facility] nter: [address] [facility] 12/05/2020 Type + Screen, Serum Normal Blood Type O posit socrates [facility] Campus: 830 [facility] Normal Ab Screen (Indirect Colin)vis negat socrates [facility]: [address] [facility] 12/05/2020 UA W/ Reflex to Culture Normal Appearance, Urine Rfx clear clear [facility]: 83 0 [facility] Normal Color, Urine Rfx colorless yellow Fi [facility]: [address] [facility] Normal pH,urine Rfx 5.0 units 5.0-9.0 units [facility]: [address] [facility] Normal Specific [place] Ur Auto Rfx 1.036 1.002-1.035 [facility]: [address] [facility] Normal Protein, Urine Auto Rfx negative mg/ dL negative mg/dL [facility]: [address] [facility] Normal Glucose, Urine (UA) Auto Rfx n egative mg/dL negative mg/dL [facility]: [address] [facility] Normal Ketone, Urine Auto Rfx negative mg/d L negative mg/dL [facility]: [address] [facility] Normal Urobilinogen, Urine Auto Rfx 0.2 mg/ dL 0.0-2.0 mg/dL [facility]: [address] [facility] Normal Bilirubin, Urine Auto Rfx negative n egative [facility]: [address] [facility] Normal Nitrite, Urine Auto Rfx negative neg ative [facility]: [address] [facility] Normal Leukocyte Esterase Ur Auto Rfx negat socrates negative [facility]: [address] [facility] High Blood, Urine Blood Rfx 1+ negati ve [facility]: [address] [facility] High WBC, Urine Auto Rfx 4 /hpf 0-3 /hpf [facility]: [address] [facility] Normal RBC, Urine Auto Rfx 0 /hpf 0-3 /hpf [facility]: [address] [facility] Normal Bacteria, Urine Auto Rfx negative ne gative [facility]: [address] [facility] Normal Squam Epithelial Cell Ur Aurfx 3 /hp f 0-6 /hpf [facility]: [address] [facility] Normal Mucus, Urine Rfx small negative Fin [facility]: [address] [facility] Normal Hyaline Cast, Urine Auto Rfx 0 /lpf 0-1 /lpf [facility]: 0 [facility] 11/28/2020 CBC W/ Auto Diff High White Blood Count 13.2 10 4.0-10.0 10 [facility]: [address] [place] [address] Normal Red Blood Count 4.71 10 4.00-5.40 10 [facility]: [address] [facility] Low Hemoglobin 11.9 g/dL 12.0-15.5 g/dL [facility]: 0 [facility] Normal Hematocrit 38.4 % 36.0-47.0 % [facility]: [address] [place] [address] Normal Mean Corpuscular Volume 81.5 fL 80.0 -96.0 fL [facility]: [address] [place] [address] Low Mean Corpuscular Hemoglobin 25.3 pg 27.0-33.0 pg [facility]: 0 [facility] Low Mean Corpuscular HGB Conc 31.0 g/dL 32.0-36.5 g/dL [facility]: 0 [facility] Normal Red Cell Distribution Width 14.0 % 1 1.5-14.5 % [facility]: 0 [facility] Normal Platelet Count, Automated 298 10 150 -450 10 [facility]: 0 [facility] Normal Neutrophils % 61.2 % 36.0-66.0 % Fin [facility]: [address] [facility] Normal Lymph % 28.6 % 24.0-44.0 % Final [facility]: [address] [facility] Normal [place] % 3.9 % 0.0-5.0 % Final [facility]: [address] [facility] High Eos % 5.5 % 0.0-3.0 % [facility]: [address] [facility] Normal Baso % 0.4 % 0.0-1.0 % Final [facility]: [address] [facility] Normal Immature Granulocyte % 0.4 % 0-3.0 % [facility]: [address] [facility] Normal Nucleated Red Blood Cell % 0.0 % 0- 0 % [facility]: [address] [facility] Normal Neutrophils # 8.1 10 1.5-8.[address] [facility]: 8[address] [facility] Normal Lymph # 3.8 10 1.5-5.0 10 [facility]: [address] [facility] Normal [place] # 0.5 10 0.0-0.8 10 [facility]: [address] [facility] High Eos # 0.7 10 0.0-0.5 10 [facility]: [address] [facility] Normal Baso # 0.1 10 0.0-0.2 10 [facility]: [address] [facility] 11/28/2020 Urinalysis, Dipstick Normal Appearance, Urine hazy clear [facility]: [address] [facility] High Color, Urine red yellow Final [facility]: [address] [facility] Normal pH,urine 7.0 units 5.0-9.0 units [facility]: [address] [facility] Normal Specific [place] Urine Auto 1.005 1 .002-1.035 [facility]: 0 [facility] High Protein, Urine Auto 1+ mg/dL negativ e mg/dL [facility]: [address] [facility] Normal Glucose, Urine (UA) Auto negative mg /dL negative mg/dL [facility]: [address] [facility] Normal Ketone, Urine Auto negative mg/dL ne gative mg/dL [facility]: [address] [facility] Normal Urobilinogen, Urine Auto 0.2 mg/dL 0 .0-2.0 mg/dL [facility]: [address] [facility] Normal Bilirubin, Urine Auto negative negat socrates [facility]: [address] [facility] Normal Nitrite, Urine Auto negative negativ e [facility]: [address] [facility] High Leukocyte Esterase, Urine Auto 1+ negative [facility]: [address] [facility] High Blood, Urine Blood 3+ negative F [facility]: [address] [facility] High WBC, Urine Auto 4 /hpf 0-3 /hpf [facility]: [address] [facility] High RBC, Urine Auto tntc /hpf 0-3 /hpf [facility]: [address] [facility] Normal Bacteria, Urine Auto negative negati ve [facility]: [address] [facility] Normal Squamous Epithelial Cell Ur AU 1 /hp f 0-6 /hpf [facility]: [address] [facility] Normal Hyaline Cast, Urine Auto 0 /lpf 0-1 /lpf [facility]: [address] [facility] 11/28/2020 PT/INR Normal Prothrombin Time 13.5 secon ds 12.5-14.3 seconds [facility]: [address] [facility] Normal Inr 1.01 [facility]: [address] [facility] 11/28/2020 Hepatic Function Panel, Serum Normal AST/SG OT 14 U/L 7-37 U/L [facility]: [address] [facility] Normal ALT/SGPT 29 U/L 12-78 U/L [facility]: [address] [facility] High Alkaline Phosphatase 141 U/L 45-117 U/L [facility]: [address] [facility] Low Bilirubin,total 0.1 mg/dL 0.2-1.0 mg /dL [facility]: 0 [facility] Normal Bilirubin,direct < 0.1 mg/dL 0.0-0.2 mg/dL [facility]: [address] [facility] Normal Total Protein 6.8 gm/dL 6.4-8.2 gm/d L [facility]: [address] [facility] Normal Albumin 3.3 gm/dL 3.2-5.2 gm/dL Drea l [facility]: 0 [facility] Low Albumin/globulin Ratio 0.9 1.2-2. 2 [facility]: [address] [place] [address] 11/28/2020 BMP, Serum or Plasma Normal Glucose, Fastin g 100 mg/dL 70-100 mg/dL [facility]: 83 0 [facility] Normal Blood Urea Nitrogen 10 mg/dL 7-18 mg /dL [facility]: [address] [place] [address] Normal Creatinine for GFR 0.60 mg/dL 0.55-1 .30 mg/dL [facility]: [address] [place] [address] Normal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
--- OUTSIDE RECORDS SUMMARY | 2021-10-04 04:46 | CCD ---
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 RxNorm Banana Anaphylaxis Active 5986934 RxNorm Latex Active 8745 RxNorm Promethazine Rash [...] TABLET BY MOUTH TWICE A DAY Completed sarnhsqcfp-tjjdwzptuzolf-ywcuxnzo 50 mg- 300 mg-40 mg capsule TAKE ONE CAPSULE BY MOUTH EVERY 4 HOURS NEEDED Completed 03/01/2021 ivgjdotcvj-gqsgjbmrilahq-lvygawgf 50 mg-325 mg-40 mg tablet Acti ve [...] A DAY NEEDED MAXIMUM DAILY DOSE 2 TABLETS Active Not available hydroxyzine HCl 25 mg [...] Completed 09/13/2020 ondansetron HCl 4 mg tablet Completed 08/12 oxycodone 10 mg tablet Completed 0 oxycodone [...] Tube Information n ot available 11/08/2020 Electrocardiogram [facility] [address] [place] [id number] (Work Place) 08/08/2021 MRI, Brain, W/o Contrast [facility] [address] [place], [place] [id number] (Work Place) Notes: section x5, Involuntary D&C, Appendectomy, Tonsillectomy, Gallbladder Results Lab Results Date Name Specimen Result Interpretation Description Value Range Status Address 08/15/2021 Iron + TIBC + Ferritin, Serum Blood venous Low Iron, Total 26 mcg/dL 40-190 mcg/dL Final [facility]: [address] [facility] Blood venous Normal Iron Binding Capacity 38 4 mcg/dL (calc) 250-450 mcg/dL (calc) Final [facility]: [address] [facility] Blood venous Low % Saturation 7 % (calc) 16-45 % (calc) Final [facility]: [address] [facility] Blood venous Low Ferritin 11 NG/mL 16-154 NG/m L Final [facility]: [address] [facility] 08/15/2021 HIV 1/2 Antigen/antibody, 4TH Gen W/rfl,screenin g Blood venous Normal HIV Ag/Ab, 4TH Gen non-reactive non-reactive Final [facility]: [address] [facility] 08/15/2021 Cbc Blood venous High White Blood Cell Count 12.2 thousand/uL 3.8-10.8 thousand/uL Final [facility]: [address] [facility] Blood venous Normal Red Blood Cell Count 4.5 4 million/uL 3.80-5.10 million/uL [facility] [address] [facility] Blood venous Low Hemoglobin 10.6 g/dL 11.7-15. 5 g/dL Final [facility]: [address] [facility] Blood venous Normal Hematocrit 35.5 % 35.0-45.0 % Final [facility]: [address] [facility] Blood venous Low Mcv 78.2 fL 80.0-100.0 fL Fi nal [facility]: [address] [facility] Blood venous Low Mch 23.3 pg 27.0-33.0 pg Fin al [facility]: [address] [facility] Blood venous Low Mchc 29.9 g/dL 32.0-36.0 g/dL Final [facility]: [address] [facility] Blood venous Normal Rdw 14.6 % 11.0-15.0 % Final [facility]: [address] [facility] Blood venous High Platelet Count 536 thous and/uL 140-400 thousand/uL Final [facility]: [address] [facility] Blood venous Normal Mpv 10.9 fL 7.5-12.5 fL Drea l [facility]: [address] [facility] 08/09/2021 Urinalysis, Dipstick Normal Appearance, Urine hazy clear Final [facility]: [address] [facility] Normal Color, Urine yellow yellow Final [facility]: [address] [facility] Normal pH,urine 5.0 units 5.0-9.0 units Fin [facility]: [address] [facility] Normal Specific Capay Urine Auto 1.028 1 .002-1.035 [facility]: [address] [facility] Normal Protein, Urine Auto negative mg/dL n egative mg/dL [facility]: [address] [facility] Normal Glucose, Urine (UA) Auto negative mg /dL negative mg/dL [facility]: [address] [facility] Normal Ketone, Urine Auto negative mg/dL ne gative mg/dL [facility]: [address] [facility] Normal Urobilinogen, Urine Auto 0.2 mg/dL 0 .0-2.0 mg/dL [facility]: [address] [facility] Normal Bilirubin, Urine Auto negative negat socrates [facility]: [address] [facility] Normal Nitrite, Urine Auto negative negativ e [facility]: [address] [facility] High Leukocyte Esterase, Urine Auto 1+ negative [facility]: [address] [facility] Normal Blood, Urine Blood negative negative [facility]: [address] [facility] Normal WBC, Urine Auto 2 /hpf 0-3 /hpf [facility]: [address] [facility] Normal RBC, Urine Auto 1 /hpf 0-3 /hpf [facility]: [address] [facility] Normal Bacteria, Urine Auto negative negati ve [facility]: [address] [facility] Normal Squamous Epithelial Cell Ur AU 2 /hp f 0-6 /hpf [facility]: [address] [facility] Normal Mucus, Urine small negative [facility]: [address] [facility] Normal Hyaline Cast, Urine Auto 0 /lpf 0-1 /lpf [facility]: [address] [facility] 08/09/2021 Protein, Total, Urine High Total Protein,random Urine 22.8 mg/dL 0.0-12.0 mg/dL [facility]ter: [address] [facility] 08/09/2021 CMP, Serum or Plasma Normal Glucose, Fastin g 100 mg/dL 70-100 mg/dL [facility]: 83 0 [facility] Normal Blood Urea Nitrogen 7 mg/dL 7-18 mg/ dL [facility]: [address] [facility] Normal Creatinine for GFR 0.64 mg/dL 0.55-1 .30 mg/dL [facility]: [address] [facility] Normal Glomerular Filtration Rate > 60.0 >6 0 [facility]: [address] [facility] Normal Sodium Level 142 mEq/L 136-145 mEq/L [facility]: [address] [facility] Normal Potassium Serum 4.3 mEq/L 3.5-5.1 mE q/L [facility]: [address] [facility] High Chloride Level 109 mEq/L 98-107 mEq/ L [facility]: [address] [facility] Normal Carbon Dioxide Level 27 mEq/L 21-32 mEq/L [facility]: [address] [facility] Low Anion Gap 6 mEq/L 8-16 mEq/L [facility]: [address] [facility] Normal Calcium Level 8.7 mg/dL 8.5-10.1 mg/ dL [facility]: [address] [facility] Normal AST/SGOT 7 U/L 7-37 U/L [facility]: [address] [facility] Normal ALT/SGPT 18 U/L 12-78 U/L [facility]: [address] [facility] High Alkaline Phosphatase 118 U/L 45-117 U/L [facility]: [address] [facility] Low Bilirubin,total 0.1 mg/dL 0.2-1.0 mg /dL [facility]: [address] [facility] Low Total Protein 6.1 gm/dL 6.4-8.2 gm/d L [facility]: [address] [facility] Low Albumin 3.1 gm/dL 3.2-5.2 gm/dL [facility]: [address] [facility] Low Albumin/globulin Ratio 1.0 1.2-2. 2 [facility]: [address] [facility] 08/09/2021 C3 (Complement), Serum or Plasma Normal Complement C3 167 mg/dL 90-180 mg/dL [facility] nter: [address] [facility] 08/09/2021 C4 (Complement), Serum or Plasma High Com plement C4 44 mg/dL 10-40 mg/dL [facility]: 83 0 [facility] 08/09/2021 C Reactive Protein, QN, Serum or Plasma High C Reactive Protein Quantitativ 2.21 mg/dL 0.00-0.30 mg/dL [facility]: [address] [place] [address] 08/09/2021 CBC W/ Auto Diff High White Blood Count 10.6 10 4.0-10.0 10 [facility]: [address] [place] [address] Low Red Blood Count 3.87 10 4.00-5.40 10 [facility]: [address] [place] [address] Low Hemoglobin 9.1 g/dL 12.0-15.5 g/dL F inal [facility]: [address] [place] [address] Low Hematocrit 30.2 % 36.0-47.0 % [facility]: [address] [place] [address] Low Mean Corpuscular Volume 78.0 fL 80.0 -96.0 fL [facility]: [address] [place] [address] Low Mean Corpuscular Hemoglobin 23.5 pg 27.0-33.0 pg [facility]: [address] [place] [address] Low Mean Corpuscular HGB Conc 30.1 g/dL 32.0-36.5 g/dL [facility]: [address] [place] [address] High Red Cell Distribution Width 15.4 % 1 1.5-14.5 % [facility]: [address] [place] [address] Normal Platelet Count, Automated 425 10 150 -450 10 [facility]: 0 [facility] Normal Neutrophils % 63.9 % 36.0-66.0 % [facility]: 0 [facility] Normal Lymph % 25.7 % 24.0-44.0 % [facility]: 0 [facility] Normal Brooke % 5.5 % 2.0-8.0 % [facility]: [address] [place] [address] High Eos % 3.8 % 0.0-3.0 % [facility]: [address] [place] [address] Normal Baso % 0.5 % 0.0-1.0 % [facility]: [address] [facility] Normal Immature Granulocyte % 0.6 % 0-3.0 % [facility]: [address] [place] [address] Normal Nucleated Red Blood Cell % 0.0 % 0- 0 % [facility]: [address] [facility] Normal Neutrophils # 6.8 10 1.5-8.5 10 [facility]: [address] [facility] Normal Lymph # 2.7 10 1.5-5.0 10 [facility]: [address] [facility] Normal Brooke # 0.6 10 0.0-0.8 10 [facility]: 0 [facility] Normal Eos # 0.4 10 0.0-0.5 10 [facility]: 0 [facility] Normal Baso # 0.1 10 0.0-0.2 10 [facility]: [address] [facility] 08/09/2021 ESR (Erythrocyte Sedimentation Rate), Blood Hig h Erythrocyte Sedimentation Rate 59 mm/HR 0-20 mm/HR [facility]: [address] [place] [address] 08/07/2021 CBC W/ Auto Diff Normal White Blood Count 9.2 10 4.0-10.0 10 [facility]: [address] [place] [address] Normal Red Blood Count 4.47 10 4.00-5.40 10 [facility]: 0 [facility] Low Hemoglobin 10.6 g/dL 12.0-15.5 g/dL [facility]: [address] [place] [address] Low Hematocrit 35.0 % 36.0-47.0 % [facility]: [address] [place] [address] Low Mean Corpuscular Volume 78.3 fL 80.0 -96.0 fL [facility]: [address] [place] [address] Low Mean Corpuscular Hemoglobin 23.7 pg 27.0-33.0 pg [facility]: [address] [place], [place] [address] Low Mean Corpuscular HGB Conc 30.3 g/dL 32.0-36.5 g/dL [facility]: 0 [facility] High Red Cell Distribution Width 15.3 % 1 1.5-14.5 % [facility]: [address] [place] [address] Normal Platelet Count, Automated 362 10 150 -450 10 [facility]: 0 [facility] Normal Neutrophils % 64.3 % 36.0-66.0 % [facility]: [address] [facility] Normal Lymph % 25.2 % 24.0-44.0 % [facility]: 0 [facility] Normal Brooke % 6.0 % 2.0-8.0 % [facility]: [address] [place] [address] High Eos % 3.7 % 0.0-3.0 % [facility]: [address] [place] [address] Normal Baso % 0.5 % 0.0-1.0 % [facility]: 0 [facility] Normal Immature Granulocyte % 0.3 % 0-3.0 % [facility]: [address] [place] [address] Normal Nucleated Red Blood Cell % 0.0 % 0- 0 % [facility]: 0 [facility] Normal Neutrophils # 5.9 10 1.5-8.5 10 [facility]: [address] [facility] Normal Lymph # 2.3 10 1.5-5.0 10 [facility]: [address] [facility] Normal Brooke # 0.6 10 0.0-0.8 10 [facility]: [address] [place] [address] Normal Eos # 0.3 10 0.0-0.5 10 [facility]: 0 [facility] Normal Baso # 0.1 10 0.0-0.2 10 [facility]: [address] [place] [address] 08/07/2021 BMP, Serum or Plasma Normal Glucose, Fastin g 92 mg/dL 70-100 mg/dL [facility]: 83 0 [facility] Normal Blood Urea Nitrogen 11 mg/dL 7-18 mg /dL [facility]: [address] [facility] Normal Creatinine for GFR 0.80 mg/dL 0.55-1 .30 mg/dL [facility]: [address] [facility] Normal Glomerular Filtration Rate > 60.0 >6 0 [facility]: [address] [facility] Normal Sodium Level 144 mEq/L 136-145 mEq/L [facility]: [address] [facility] Normal Potassium Serum 4.0 mEq/L 3.5-5.1 mE q/L [facility]: [address] [facility] High Chloride Level 113 mEq/L 98-107 mEq/ L [facility]: [address] [facility] Normal Carbon Dioxide Level 24 mEq/L 21-32 mEq/L [facility]: [address] [facility] Low Anion Gap 7 mEq/L 8-16 mEq/L [facility]: [address] [facility] Normal Calcium Level 8.8 mg/dL 8.5-10.1 mg/ dL [facility]: [address] [facility] 08/07/2021 Choriogonadotropin, Quant, Serum or Plasma Norm al HCG, Serum Quantitative < 1.0 mIU/mL [facility]: [address] [facility] 08/07/2021 Type + Screen, Serum Normal Blood Type O posit socrates [facility]: [address] [facility] Normal Ab Screen (Indirect Colin)vis negat socrates [facility]: [address] [facility] 08/07/2021 [place] ENDOCERVIX No observation recorded. [facility]: [address] [facility] 08/06/2021 CBC W/ Auto Diff Results Final [facility]: [address] [facility] Wbc 9.5 10^3/uL 4.2 - 11.0 10^3/uL [facility]: [address] [place] [address] Low Rbc 3.73 10^6/uL 4.20 - 5.40 10^6/u L [facility]: [address] [place] [address] Low Hemoglobin 9.0 g/dL 12.0 - 16.0 g/dL [facility]: [address] [place] [address] Low Hematocrit 28.6 % 37.0 - 47.0 % [facility]: [address] [place] [address] Low Mcv 76.7 fL 81.0 - 101 fL [facility] [address] [place] [address] Mch 24.1 pg 27.0 - 34.0 pg C arthage [facility] Hospital: [address] [place] [address] Mchc 31.5 g/dL 31.0 - 36.0 g/dL [facility]: [address] [place] [address] Rdw 15.0 % 11.5 - 14.5 % [facility]: [address] [place] [address] Platelets 367 10^3/uL 150 - 450 10^3 /uL [facility]: [address] [place] [address] Mpv 9.6 fL 7.4 - 10.4 fL [facility]: [address] [place] [address] Neut 64.6 % 37.0 - 80.0 % [facility]: [address] [place] [address] Lymph 26.4 % 25.0 - 40.0 % [facility]: [address] [place] [address] Brooke 5.1 % 3.0 - 8.0 % [facility]: [address] [place] [address] Eos 3.2 % 0.0 - 7.0 % [facility]: [address] [place] [address] Baso 0.4 % 0.0 - 2.5 % [facility]: [address] [place] [address] High %Ig 0.3 % 0.0 - 0.0 % [facility]: [address] [place] [address] %Nrbc 0.0 % 0.0 - 0.0 % [facility]: [address] [place] [address] #Neut 6.14 10^3/uL 2.00 - 6.90 10^3/ uL [facility]: [address] [place] [address] #Lymph 2.51 10^3/uL 0.60 - 3.40 10^3 /uL [facility]: [address] [place] [address] #Brooke 0.48 10^3/uL 0.00 - 0.90 10^3/ uL [facility]: [address] [place] [address] #Eos 0.30 10^3/uL 0.00 - 0.70 10^3/u L [facility]: [address] [place] [address] #Baso 0.04 10^3/uL 0.00 - 0.20 10^3/ uL [facility]: [address] [place] [address] #Ig 0.03 10^3/uL 0.00 - 0.10 10^3/u L [facility]: [address] [place] [address] #Nrbc 0.00 10^3/uL 0.00 - 0.00 10^3/ uL [facility]: [address] [place] [address] Manual Diff not indicated [facility]: [address] [place] [address] RBC Morph not indicated [facility]: [address] [place] [address] 08/06/2021 CMP, Serum or Plasma Results Final [facility]: [address] [place] [address] Sodium 141 mEq/L 134 - 153 mEq/L [facility]: [address] [place] [address] Low Potassium 3.5 mEq/L 3.6 - 5.0 mEq/L [facility]: [address] [place] [address] High Chloride 108 mEq/L 98 - 107 mEq/L [facility]: [address] [place] [address] Co2 25 mEq/L 22 - 30 mEq/L [facility]: [address] [place] [address] High Glucose 103 mg/dL 70 - 99 mg/dL [facility]: [address] [place] [address] Bun 7 mg/dL 7 - 21 mg/dL [facility] Hospital: [address] [place] [address] Creatinine 0.8 mg/dL 0.7 - 1.5 mg/dL [facility]: [address] [place] [address] BUN/creat 9 8 - 27 [facility] Hospital: [address] [place] [address] Total Protein 6.3 g/dL 6.3 - 8.2 g/d L [facility]: [address] [place] [address] Albumin 4.0 g/dL 3.9 - 5.0 g/dL [facility] Hospital: [address] [place] [address] Low Globulin 2.3 gm/dL 2.4 - 3.2 gm/dL [facility] Hospital: [address] [place] [address] A/g Ratio 1.7 0.8 - 2.0 Ca [facility]: [address] [place] [address] Calcium 9.1 mg/dL 8.4 - 10.2 mg/dL [facility] Hospital: [address] [place] [address] Total Bili <0.7 mg/dL 0.2 - 1.3 mg/d L [facility] Hospital: [address] [place] [address] Alkaline Phos 114 U/L 38 - 126 U/L [facility] Hospital: [address] [place] [address] SGOT/AST 11 U/L 5 - 40 U/L [facility] Hospital: [address] [place] [address] SGPT/ALT 10 U/L 7 - 56 U/L [facility]: [address] [place] [address] Anion Gap 8.0 mmol/L 8.0 - 16.0 mmol /L [facility] Hospital: [address] [place] [address] Age 31 yrs [facility] Hospital: [address] [place] [address] Non-aa GFR >60 mL/min [facility] Hospital: [address] [place] [address] Afr Amer GFR >60 mL/min [facility] Hospital: [address] [place] [address] 07/31/2021 UA W/ Reflex to Culture Normal Appearance, Urine Rfx clear clear [facility]: 83 0 [facility] Normal Color, Urine Rfx colorless yellow Fi [facility]: [address] [facility] Normal pH,urine Rfx 7.0 units 5.0-9.0 units [facility]: [address] [facility] Normal Specific Capay Ur Auto Rfx 1.002 1.002-1.035 [facility]: [address] [facility] Normal Protein, Urine Auto Rfx negative mg/ dL negative mg/dL [facility]: [address] [facility] Normal Glucose, Urine (UA) Auto Rfx n egative mg/dL negative mg/dL [facility]: [address] [facility] Normal Ketone, Urine Auto Rfx negative mg/d L negative mg/dL [facility]: [address] [facility] Normal Urobilinogen, Urine Auto Rfx 0.2 mg/ dL 0.0-2.0 mg/dL [facility]: [address] [facility] Normal Bilirubin, Urine Auto Rfx negative n egative [facility]: [address] [facility] Normal Nitrite, Urine Auto Rfx negative neg ative [facility]: [address] [facility] Normal Leukocyte Esterase Ur Auto Rfx negat socrates negative [facility]: [address] [facility] High Blood, Urine Blood Rfx 2+ negati ve [facility]: [address] [facility] Normal WBC, Urine Auto Rfx 0 /hpf 0-3 /hpf [facility]: [address] [facility] Normal RBC, Urine Auto Rfx 1 /hpf 0-3 /hpf [facility]: [address] [facility] High Bacteria, Urine Auto Rfx 1+ nega tive [facility]: [address] [facility] Normal Squam Epithelial Cell Ur Aurfx 2 /hp f 0-6 /hpf [facility]: [address] [facility] Normal Hyaline Cast, Urine Auto Rfx 0 /lpf 0-1 /lpf [facility]: [address] [facility] 07/31/2021 CBC W/ Auto Diff Normal White Blood Count 8.4 10 4.0-10.0 10 [facility]: [address] [facility] Normal Red Blood Count 4.49 10 4.00-5.40 10 [facility]: [address] [facility] Low Hemoglobin 10.7 g/dL 12.0-15.5 g/dL [facility]: [address] [facility] Low Hematocrit 34.9 % 36.0-47.0 % [facility]: [address] [place] [address] Low Mean Corpuscular Volume 77.7 fL 80.0 -96.0 fL [facility]: [address] [place] [address] Low Mean Corpuscular Hemoglobin 23.8 pg 27.0-33.0 pg [facility]: [address] [facility] Low Mean Corpuscular HGB Conc 30.7 g/dL 32.0-36.5 g/dL [facility]: [address] [place] [address] High Red Cell Distribution Width 15.4 % 1 1.5-14.5 % [facility]: [address] [place] [address] Normal Platelet Count, Automated 303 10 150 -450 10 [facility]: [address] [facility] High Neutrophils % 66.6 % 36.0-66.0 % [facility]: [address] [facility] Low Lymph % 22.6 % 24.0-44.0 % [facility]: [address] [facility] Normal Brooke % 5.5 % 2.0-8.0 % [facility]: [address] [facility] High Eos % 4.6 % 0.0-3.0 % [facility]: [address] [facility] Normal Baso % 0.5 % 0.0-1.0 % [facility]: [address] [facility] Normal Immature Granulocyte % 0.2 % 0-3.0 % [facility]: 0 [facility] [facility] Normal Nucleated Red Blood Cell % 0.0 % 0- 0 % [facility]: [address] [facility] Normal Neutrophils # 5.6 10 1.5-8.5 10 [facility]: [address] [facility] Normal Lymph # 1.9 10 1.5-5.0 10 [facility]: [address] [facility] Normal Brooke # 0.5 10 0.0-0.8 10 [facility]: [address] [facility] Normal Eos # 0.4 10 0.0-0.5 10 [facility]: [address] [facility] Normal Baso # 0.0 10 0.0-0.2 10 [facility]: [address] [facility] 07/31/2021 Istat B-HCG Normal Istat B-HCG < 5.0 F [facility]: [address] [facility] 07/31/2021 Istat Chem8+ Panel Low Istat HCT 35.0 % 38. 0-51.0 % [facility]: [address] [facility] High Istat Glucose 123 mg/dL 70-105 mg/dL [facility]: [address] [facility] Normal Istat Sodium 138 mEq/L 136-145 mEq/L [facility]: [address] [facility] Normal Istat Potassium 4.3 mEq/L 3.5-5.1 mE q/L [facility]: 0 [facility] Normal Istat Ca++ 4.6 mg/dL 4.5-5.3 mg/dL F [facility]: [address] [facility] Normal Istat Chloride 105 mEq/L 98-109 mEq/ L [facility]: [address] [facility] Normal Istat CO2 24.0 mm/L 23.0-27.0 mm/L [facility]: [address] [facility] Normal Istat BUN 14 mg/dL 8-26 mg/dL [facility]: 0 [facility] Normal Istat Creatinine 0.7 mg/dL 0.6-1.3 m g/dL [facility]: [address] [facility] 07/31/2021 [place] ENDOCERVIX No observation recorded. [facility]: [address] [place] [address] 07/31/2021 PT/INR High Prothrombin Time 23.2 secon ds 12.7-14.5 seconds [facility]: [address] [place] [address] Normal Inr 2.01 [facility]: [address] [place] [address] 07/31/2021 Partial Thromboplastin Time High Partial Thromboplastin Time 63.9 seconds 25.9-37.0 seconds [facility] nter: [address] [place] [address] 07/31/2021 Lactic Acid, Serum or Plasma Normal Lactic Acid Sepsis Protocol 1.4 mmol/L 0.4-2.0 mmol/L [facility]: [address] [place] [address] 07/31/2021 Hepatic Function Panel, Serum Normal AST/SG OT 17 U/L 7-37 U/L [facility]: [address] [place] [address] Normal ALT/SGPT 24 U/L 12-78 U/L [facility]: [address] [place] [address] Normal Alkaline Phosphatase 117 U/L 45-117 U/L [facility]: [address] [place] [address] Low Bilirubin,total 0.1 mg/dL 0.2-1.0 mg /dL [facility]: [address] [place] [address] Normal Bilirubin,direct < 0.1 mg/dL 0.0-0.2 mg/dL [facility]: [address] [place] [address] Normal Total Protein 6.4 gm/dL 6.4-8.2 gm/d [facility]: [address] [place] [address] Normal Albumin 3.2 gm/dL 3.2-5.2 gm/dL Drea l [facility]: [address] [place] [address] Low Albumin/globulin Ratio 1.0 1.2-2. 2 [facility]: [address] [place] [address] 07/31/2021 Amylase, Serum or Plasma Normal Amylase 40 U/L 25-115 U/L [facility]: [address] [place] [address] 07/31/2021 Lipase, Serum or Plasma Normal Lipase 91 U/L 7 3-393 U/L [facility]: [address] [facility] 07/31/2021 Chlamydia, GC & Trich Amp Normal Ch lamydia DNA Amplification negative negative Final [facility] Ce nter: [address] [facility] Normal GC DNA Amplification negative negati ve [facility]: [address] [facility] Normal Trichomonas Vaginalis (Amp) not dete cted negative [facility]: [address] [facility] 07/31/2021 Influenza A/B RSV Covid Amp Normal Influenza a Amplification negative negative [facility] Ce nter: [address] [facility] Normal Influenza B Amplification negative n egative [facility]: [address] [facility] Normal RSV Amplification negative negative [facility]: [address] [facility] Normal Sars Covid-19 Amplification negative negative [facility]: [address] [facility] 07/31/2021 TSH, Serum or Plasma Normal Thyroid Stimulating Hormone 0.444 uIU/mL 0.358-3.740 uIU/mL [facility] nter: [address] [facility] 07/31/2021 T4, Free, Serum Low Free T4 0.66 NG/dL 0.76 -1.46 NG/dL [facility]: 0 [facility] 07/31/2021 Type + Screen, Serum Normal Blood Type O posit socrates [facility]: [address] [facility] Normal Ab Screen (Indirect Colin)vis negat socrates [facility]: [address] [facility] 07/31/2021 Cardiovascular Assessment Panel, Serum Normal CPK Creatine Phosphokinase 67 U/L 26-192 U/L [facility]: 0 [facility] Normal CK-mb Value Mass < 1.0 NG/mL <3.6 NG /mL [facility]: 0 [facility] Normal mb/CK Relative Index 1.49 < or =4 [facility]: 0 [facility] Normal Troponin I < 0.02 NG/mL < 0.10 NG/mL [facility]: [address] [facility] 07/31/2021 Ethanol, Blood Normal Ethyl Alcohol (Ethano l) < 0.003 % 0.000- 0.010 % [facility]: 83 0 [facility] 07/31/2021 Salicylate, Quantitative, Serum Low Salicylate Level < 1.7 mg/dL 5.0-30.0 mg/dL [facility] nter: [address] [facility] 07/31/2021 Acetaminophen, Serum Low Acetaminophen L evel < 2.0 ug/mL 10.0- 30.0 ug/mL [facility]: 83 0 [facility] 07/31/2021 CBC W/ Auto Diff Normal White Blood Count 8.5 10 4.0-10.0 10 [facility]: [address] [facility] Normal Red Blood Count 4.04 10 4.00-5.40 10 [facility]: [address] [facility] Low Hemoglobin 9.7 g/dL 12.0-15.5 g/dL F inal [facility]: [address] [facility] Low Hematocrit 31.4 % 36.0-47.0 % [facility]: 0 [facility] Low Mean Corpuscular Volume 77.7 fL 80.0 -96.0 fL [facility]: 0 [facility] Low Mean Corpuscular Hemoglobin 24.0 pg 27.0-33.0 pg [facility]: [address] [facility] Low Mean Corpuscular HGB Conc 30.9 g/dL 32.0-36.5 g/dL [facility]: 0 [facility] High Red Cell Distribution Width 15.3 % 1 1.5-14.5 % [facility]: 0 [facility] Normal Platelet Count, Automated 302 10 150 -450 10 [facility]: 0 [facility] Normal Neutrophils % 59.7 % 36.0-66.0 % [facility]: [address] [facility] Normal Lymph % 28.8 % 24.0-44.0 % Final [facility]: [address] [facility] Normal Brooke % 5.9 % 2.0-8.0 % Final [facility]: [address] [facility] High Eos % 4.7 % 0.0-3.0 % [facility]: 8[address] [facility] Normal Baso % 0.5 % 0.0-1.0 % [facility]: [address] [facility] Normal Immature Granulocyte % 0.4 % 0-3.0 % [facility]: [address] [facility] Normal Nucleated Red Blood Cell % 0.0 % 0- 0 % [facility]: [address] [facility] Normal Neutrophils # 5.1 10 1.5-8.5 10 [facility]: [address] [facility] Normal Lymph # 2.4 10 1.5-5.0 10 [facility]: [address] [facility] Normal Brooke # 0.5 10 0.0-0.8 10 [facility]: [address] [facility] Normal Eos # 0.4 10 0.0-0.5 10 [facility]: [address] [facility] Normal Baso # 0.0 10 0.0-0.2 10 [facility]: [address] [facility] 07/31/2021 Drug Screen, Urine Normal Amphetamines Leve l Urine negative negative [facility]: 83 0 [facility] Normal Barbiturates Urine negative negative [facility]: [address] [facility] Normal Benzodiazepines Urine negative negat socrates [facility]: [address] [facility] Normal Cannabinoids Urine negative negative [facility]: [address] [facility] Normal Cocaine Metabolite Urine negative ne gative [facility]: [address] [facility] Normal Methadone Urine negative negative Fi nal [facility]: [address] [facility] High Opiates Urine positive negative Drea l [facility]: [address] [facility] Normal Phencyclidine Urine negative negativ e [facility]: [address] [facility] 07/29/2021 CT + NG RNA, PCR, Unspecified Specimen Urine Normal Chlamydia Trachomatis RNA, Tma, Urogenital not detected not detected Final [facility]: [address], [place] Urine Normal Neisseria Gonorrhoeae RNA, Tma, Urogenital not detected not detected Final [facility] [address], [place] Urine Comment Final [facility]: [address], [place] 07/29/2021 Test, Urine Urine clean catch Hcg n egative [facility]: [address] [facility] [address], [place] 07/25/2021 Thrombosis Prof ([id number]) Normal Homocyste ine 6.5 umol/L . umol/L [facility]: [address] 0 [facility] Normal Factor VIII Activity 91 % . % F inal [facility]: [address] [facility] Normal Antithrombin Activity 127 % . % [facility]: [address] [facility] Normal Prt C Activity(chromogenic) 160 % . % [facility]: [address] [facility] Normal Protein S Antigen, Free 61 % . % [facility]: [address] [facility] Normal Aptt 27.3 sec . sec [facility]: [address] [facility] Normal APTT 1:1 Identification Officer tnp sec . sec [facility]: [address] [facility] Normal APTT 1:1 Saline tnp sec . sec [facility]: [address] [facility] Normal Lac Interpretation . Fin al [facility]: [address] [facility] Normal Act Prt C Resist W/fv Defic 2.2 rati o . ratio [facility]: [address] [facility] High Drvvt Screen Seconds 72.2 sec . sec [facility]: [address] [facility] Normal Drvvt Confirm Seconds 45.1 sec . sec [facility]: [address] [facility] High Drvvt Ratio 1.4 ratio . ratio [facility]: [address] [facility] Normal Hexagonal Phospholipid Neutal 7 sec . sec [facility]: [address] [facility] Normal Anticardiolipin Ab, IgG <10 gpl . gp l [facility]: [address] [facility] Normal Anticardiolipin Ab, IgM 19 mpl . mpl [facility]: [address] [facility] Normal Beta-2 Glycoprotein I, IgG <10 sgu . sgu [facility]: [address] [facility] Normal Beta-2 Glycoprotein I, IgM <10 smu . smu [facility]: [address] [facility] Normal Beta-2 Glycoprotein I, IgA <10 braden . braden [facility]: [address] [facility] Normal Factor II Gene Mutation Result tnp . [facility]: [address] [facility] Normal Factor II Gene Interpretation tnp . [facility]: [address] [facility] Normal Factor II Gene Methodology . [facility]: [address] [facility] Normal Factor II Gene Comments . [facility]: [address] [facility] 07/25/2021 Thrombosis Prof ([id number]) Normal Homocyste ine 6.5 umol/L . umol/L [facility]: 83 0 [facility] Normal Factor VIII Activity 91 % . % F inal [facility]: [address] [facility] Normal Antithrombin Activity 127 % . % [facility]: [address] [facility] Normal Prt C Activity(chromogenic) 160 % . % [facility]: [address] [facility] Normal Protein S Antigen, Free 61 % . % [facility]: [address] [facility] Normal Aptt 27.3 sec . sec [facility]: [address] [facility] Normal APTT 1:1 Identification Officer tnp sec . sec [facility]: [address] [facility] Normal APTT 1:1 Saline tnp sec . sec [facility]: [address] [facility] Normal Lac Interpretation . Fin [facility]: [address] [facility] Normal Act Prt C Resist W/fv Defic 2.2 rati o . ratio [facility]: [address] [facility] High Drvvt Screen Seconds 72.2 sec . sec [facility]: [address] [facility] Normal Drvvt Confirm Seconds 45.1 sec . sec [facility]: [address] [facility] High Drvvt Ratio 1.4 ratio . ratio [facility]: [address] [facility] Normal Hexagonal Phospholipid Neutal 7 sec . sec [facility]: [address] [facility] Normal Anticardiolipin Ab, IgG <10 gpl . gp l [facility]: [address] [facility] Normal Anticardiolipin Ab, IgM 19 mpl . mpl [facility]: [address] [facility] Normal Beta-2 Glycoprotein I, IgG <10 sgu . sgu [facility]: [address] [facility] Normal Beta-2 Glycoprotein I, IgM <10 smu . smu [facility]: [address] [facility] Normal Beta-2 Glycoprotein I, IgA <10 braden . braden [facility]: [address] [facility] Normal Factor II Gene Mutation Result tnp . [facility]: [address] [facility] Normal Factor II Gene Interpretation tnp . [facility]: [address] [facility] Normal Factor II Gene Methodology . [facility]: [address] [facility] Normal Factor II Gene Comments . [facility]: [address] [facility] 07/08/2021 Lactic Acid Level, Lactate Normal L actic Acid Level, Lactate 1.6 mmol/L 0.4-2.0 mmol/L [facility] nter: [address] [facility] 07/08/2021 UA W/ Reflex to Culture Normal Appearance, Urine Rfx hazy clear [facility]: 83 0 [facility] Normal Color, Urine Rfx straw yellow [facility]: [address] [facility] Normal pH,urine Rfx 8.0 units 5.0-9.0 units [facility]: [address] [facility] Normal Specific Capay Ur Auto Rfx 1.014 1.002-1.035 [facility]: 8[address] [facility] Normal Protein, Urine Auto Rfx negative mg/ dL negative mg/dL [facility]: [address] [facility] Normal Glucose, Urine (UA) Auto Rfx n egative mg/dL negative mg/dL [facility]: [address] [facility] Normal Ketone, Urine Auto Rfx negative mg/d L negative mg/dL [facility]: [address] [facility] Normal Urobilinogen, Urine Auto Rfx 0.2 mg/ dL 0.0-2.0 mg/dL [facility]: [address] [facility] Normal Bilirubin, Urine Auto Rfx negative n egative [facility]: [address] [facility] Normal Nitrite, Urine Auto Rfx negative neg ative [facility]: [address] [facility] Normal Leukocyte Esterase Ur Auto Rfx negat socrates negative [facility]: [address] [facility] High Blood, Urine Blood Rfx 1+ negati ve [facility]: [address] [facility] Normal WBC, Urine Auto Rfx 2 /hpf 0-3 /hpf [facility]: [address] [facility] Normal RBC, Urine Auto Rfx 2 /hpf 0-3 /hpf [facility]: [address] [facility] Normal Bacteria, Urine Auto Rfx negative ne gative [facility]: [address] [facility] Normal Squam Epithelial Cell Ur Aurfx 5 /hp f 0-6 /hpf [facility]: [address] [facility] Normal Hyaline Cast, Urine Auto Rfx 0 /lpf 0-1 /lpf [facility]: [address] [facility] 07/08/2021 Cbc High White Blood Count 18.9 10 4.0-10 .0 10 [facility]: [address] [facility] Low Red Blood Count 3.72 10 4.00-5.40 10 [facility]: [address] [facility] Low Hemoglobin 9.2 g/dL 12.0-15.5 g/dL F inal [facility]: [address] [facility] Low Hematocrit 29.3 % 36.0-47.0 % [facility]: [address] [facility] Low Mean Corpuscular Volume 78.8 fL 80.0 -96.0 fL [facility]: [address] [facility] Low Mean Corpuscular Hemoglobin 24.7 pg 27.0-33.0 pg [facility]: 0 [facility] Low Mean Corpuscular HGB Conc 31.4 g/dL 32.0-36.5 g/dL [facility]: 0 [facility] High Red Cell Distribution Width 15.6 % 1 1.5-14.5 % [facility]: [address] [facility] Normal Platelet Count, Automated 391 10 150 -450 10 [facility]: [address] [facility] Normal Nucleated Red Blood Cell % 0.0 % 0- 0 % [facility]: [address] [facility] 07/08/2021 BMP, Serum or Plasma High Glucose, Fastin g 115 mg/dL 70-100 mg/dL [facility]: 83 0 [facility] Normal Blood Urea Nitrogen 10 mg/dL 7-18 mg /dL [facility]: 0 [facility] Normal Creatinine for GFR 0.67 mg/dL 0.55-1 .30 mg/dL [facility]: 0 [facility] Normal Glomerular Filtration Rate > 60.0 >6 0 [facility]: [address] [facility] Normal Sodium Level 142 mEq/L 136-145 mEq/L [facility]: [address] [facility] D Potassium Serum 4.8 mEq/L 3.5-5.1 mE q/L [facility]: 0 [facility] High Chloride Level 109 mEq/L 98-107 mEq/ L [facility]: 0 [facility] Normal Carbon Dioxide Level 25 mEq/L 21-32 mEq/L [facility]: [address] [place] [address] Normal Anion Gap 8 mEq/L 8-16 mEq/L [facility]: [address] [place] [address] Normal Calcium Level 8.8 mg/dL 8.5-10.1 mg/ dL [facility]: [address] [place] [address] 07/08/2021 Hepatic Function Panel, Serum Normal AST/SG OT 15 U/L 7-37 U/L [facility]: [address] [place] [address] Normal ALT/SGPT 41 U/L 12-78 U/L [facility]: 0 [facility] Normal Alkaline Phosphatase 104 U/L 45-117 U/L [facility]: [address] [place] [address] Low Bilirubin,total 0.1 mg/dL 0.2-1.0 mg /dL [facility]: 0 [facility] Normal Bilirubin,direct < 0.1 mg/dL 0.0-0.2 mg/dL [facility]: 0 [facility] Low Total Protein 6.1 gm/dL 6.4-8.2 gm/d L [facility]: 0 [facility] Low Albumin 3.0 gm/dL 3.2-5.2 gm/dL Drea l [facility]: [address] [place] [address] Low Albumin/globulin Ratio 1.0 1.2-2. 2 [facility]: [address] [place] [address] 07/07/2021 Istat ABG High Istat pH 7.473 units 7.350-7. 450 units [facility]: [address] [place] [address] Normal Istat pCO2 38.4 mmHg 35.0-45.0 mmHg [facility]: [address] [place] [address] Low Istat pO2 70.0 mmHg 80-105 [facility] [address] [place] [address] High Istat TCO2 29.0 mmol/L 23.0-27.0 mmo l/L [facility]: [address] [place] [address] High Istat HCO3 28.1 mmol/L 22.0-26.0 mmo l/L [facility]: [address] [place] [address] High Istat Base Excess 5.0 mmol/L -2.0-3. 0 mmol/L [facility]: [address] [place] [address] Normal Istat So2 95 % 95-98 % [facility]: [address] [place] [address] 07/07/2021 CBC W/ Auto Diff High White Blood Count 14.1 10 4.0-10.0 10 [facility]: [address] [place] [address] Normal Red Blood Count 4.23 10 4.00-5.40 10 [facility]: [address] [place] [address] Low Hemoglobin 10.3 g/dL 12.0-15.5 g/dL [facility]: [address] [place] [address] Low Hematocrit 32.7 % 36.0-47.0 % [facility]: [address] [place] [address] Low Mean Corpuscular Volume 77.3 fL 80.0 -96.0 fL [facility]: [address] [place] [address] Low Mean Corpuscular Hemoglobin 24.3 pg 27.0-33.0 pg [facility]: [address] [place] [address] Low Mean Corpuscular HGB Conc 31.5 g/dL 32.0-36.5 g/dL Final [facility]: [address] [facility] High Red Cell Distribution Width 15.2 % 1 1.5-14.5 % [facility]: [address] [facility] Normal Platelet Count, Automated 374 10 150 -450 10 Final [facility]: [address] [facility] Normal Nucleated Red Blood Cell % 0.0 % 0- 0 % Final [facility]: [address] [facility] 07/07/2021 Differential Panel, Blood Normal Neutrophil s 56 % 28-66 % [facility]: [address] [facility] Normal Lymphocytes 30 % 16-44 % Final [facility]: [address] [facility] High Monocytes 7 % 0-5 % [facility]: [address] [facility] High Eosinophils 5 % 0-3 % Final [facility]: [address] [facility] Normal Basophils 1 % 0-1 % [facility]: [address] [facility] Normal Atypical Lymph 1 % 0-5 % [facility]: [address] [facility] Normal Hypochromasia 1+ Final [facility]: [address] [facility] Normal Anisocytosis 1+ Final [facility]: [address] [facility] Normal Microcytosis 1+ Final [facility]: [address] [facility] Normal Ovalocytes 1+ Final [facility]: [address] [facility] Normal Smudge Cells 1+ Final [facility]: [address] [facility] Normal Platelet Clumps small amt Fin al [facility]: [address] [facility] 07/07/2021 Platelet Count, Estimate, Blood Normal Platelet Estimate normal normal Final [facility] nter: 830 [facility] 07/07/2021 Influenza A/B RSV Covid Amp Normal Influenza a Amplification negative negative [facility] nter: [address] [facility] Normal Influenza B Amplification negative n egative [facility]: [address] [facility] Normal RSV Amplification negative negative [facility]: [address] [place] [address] Normal Sars Covid-19 Amplification negative negative [facility]: 0 [facility] 07/07/2021 Cardiovascular Assessment Panel, Serum Normal CPK Creatine Phosphokinase 45 U/L 26-192 U/L [facility] Center: [address] [place] [address] Normal CK-mb Value Mass < 1.0 NG/mL <3.6 NG /mL [facility]: [address] [place] [address] Normal mb/CK Relative Index 2.22 < or =4 [facility]: [address] [place] [address] Normal Troponin I < 0.02 NG/mL < 0.10 NG/mL [facility]: [address] [place] [address] 07/07/2021 Hepatic Function Panel, Serum Normal AST/SG OT 15 U/L 7-37 U/L [facility]: 0 [facility] Normal ALT/SGPT 30 U/L 12-78 U/L [facility]: [address] [place] [address] Normal Alkaline Phosphatase 111 U/L 45-117 U/L [facility]: [address] [place] [address] Low Bilirubin,total 0.1 mg/dL 0.2-1.0 mg /dL [facility]: [address] [place] [address] Normal Bilirubin,direct < 0.1 mg/dL 0.0-0.2 mg/dL [facility]: 0 [facility] Normal Total Protein 6.6 gm/dL 6.4-8.2 gm/d L [facility]: 0 [facility] Normal Albumin 3.2 gm/dL 3.2-5.2 gm/dL Drea l [facility]: [address] [place] [address] Low Albumin/globulin Ratio 0.9 1.2-2. 2 [facility]: 0 [facility] 07/07/2021 BMP, Serum or Plasma Normal Glucose, Fastin g 97 mg/dL 70-100 mg/dL [facility]: 83 0 [facility] Normal Blood Urea Nitrogen 9 mg/dL 7-18 mg/ dL [facility]: [address] [facility] Normal Creatinine for GFR 0.68 mg/dL 0.55-1 .30 mg/dL [facility]: [address] [facility] Normal Glomerular Filtration Rate > 60.0 >6 0 [facility]: [address] [facility] Normal Sodium Level 141 mEq/L 136-145 mEq/L [facility]: [address] [facility] Low Potassium Serum 3.4 mEq/L 3.5-5.1 mE q/L [facility]: [address] [facility] Normal Chloride Level 105 mEq/L 98-107 mEq/ L [facility]: [address] [facility] Normal Carbon Dioxide Level 28 mEq/L 21-32 mEq/L [facility]: [address] [facility] Normal Anion Gap 8 mEq/L 8-16 mEq/L [facility]: [address] [facility] Normal Calcium Level 8.8 mg/dL 8.5-10.1 mg/ dL [facility]: [address] [facility] 07/07/2021 Drug Screen, Urine Normal Amphetamines Leve l Urine negative negative [facility]: 83 0 [facility] High Barbiturates Urine positive negative [facility]: [address] [facility] High Benzodiazepines Urine positive negat socrates [facility]: [address] [facility] Normal Cannabinoids Urine negative negative [facility]: [address] [facility] Normal Cocaine Metabolite Urine negative ne gative [facility]: [address] [facility] Normal Methadone Urine negative negative Fi nal [facility]: [address] [facility] High Opiates Urine positive negative Drea l [facility]: [address] [facility] Normal Phencyclidine Urine negative negativ e [facility]: [address] [facility] 07/07/2021 ESR (Erythrocyte Sedimentation Rate), Blood Hig h Erythrocyte Sedimentation Rate 52 mm/HR 0-20 mm/HR [facility] Center: [address] [place] [address] 07/07/2021 D-dimer, Quant, Plasma Normal D-dimer Quant 333.30 NG/mL <500 NG/mL Final [facility]: 83 0 [facility] 07/07/2021 Lactic Acid, Serum or Plasma Panic High Lactic Acid Sepsis Protocol 4.1 mmol/L 0.4-2.0 mmol/L Final [facility]: [address] [place] [address] 07/07/2021 Respiratory Virus Panel NASOPHARYNX No observ ation recorded. [facility]: [address] [place] [address] 07/07/2021 Magnesium, Serum or Plasma Normal Magnesium Level 1.8 mg/dL 1.8-2.4 mg/dL [facility]: 83 0 [facility] 07/07/2021 Pro BNP (Pro B-type Natriuretic Peptide), Serum or Plasma Normal Nt-pro BNP 30 pg/mL <125 pg/mL [facility] Center: [address] [facility] 07/07/2021 TIBC (Total Iron-binding Capacity), Serum Low Iron (Fe) 25 ug/dL 50-170 ug/dL [facility] nter: [address] [place] [address] Normal Total Iron Binding Capacity 376 ug/d L 250-450 ug/dL [facility]: [address] [place] [address] Low Percent Saturation 6.6 % 13.2-45.0 % [facility]: [address] [facility] 07/07/2021 C3 (Complement), Serum or Plasma Normal Complement C3 166 mg/dL 90-180 mg/dL [facility] nter: 0 [facility] 07/07/2021 C4 (Complement), Serum or Plasma High Com plement C4 46 mg/dL 10-40 mg/dL [facility]: 83 0 [facility] 07/07/2021 Vitamin B12, Serum Normal Vitamin B12 Level 850 pg/mL 247-911 pg/mL [facility]: 83 0 [facility] 07/07/2021 Folate, Serum Normal Folate 10.6 NG/mL >5.4 NG /mL [facility]: [address] [facility] 07/07/2021 Ferritin, Serum or Plasma Normal Ferritin 19 NG/mL 8-252 NG/mL [facility]: [address] [facility] 07/07/2021 C Reactive Protein, QN, Serum or Plasma High C Reactive Protein Quantitativ 3.58 mg/dL 0.00-0.30 mg/dL [facility]: [address] [facility] 07/07/2021 Glucose, Fingerstick, Blood High Bedside Glucose 178 mg/dL 70- 105 mg/dL [facility]: 83 0 [facility] 07/07/2021 Gas Panel, Arterial Blood High ABG pH (Ar terial) 7.468 units 7.350-7.450 units [facility]: 83 0 [facility] Low ABG Partial Pressure CO2 32.8 mmHg 3 5.0-45.0 mmHg [facility]: [address] [facility] Low ABG Partial Pressure O2 61.5 mmHg 75 .0-100.0 mmHg [facility]: [address] [facility] Normal ABG Total CO2 24.2 mEq/L 22.0-29.0 m Eq/L [facility]: [address] [facility] Normal Abg Hco3 23.2 mEq/L 22.0-26.0 mEq/L [facility]: [address] [facility] Normal ABG Base Excess 0.0 -2.0-2.0 Drea l [facility]: [address] [facility] Normal ABG Standard HCO3 24.4 mEq/L 22.0-26 .0 mEq/L [facility]: [address] [facility] Low ABG O2 Saturation 91.9 % 95.0-99.0 % [facility]: [address] [facility] 07/07/2021 Lactic Acid, Serum or Plasma Panic High Lactic Acid Sepsis Protocol 4.8 mmol/L 0.4-2.0 mmol/L [facility]: [address] [place] [address] 07/07/2021 Procalcitonin, Serum Normal Procalcitonin 0.09 [facility]: [address] [place] [address] 07/07/2021 Choriogonadotropin, Quant, Serum or Plasma Norm al HCG, Serum Quantitative < 1.0 mIU/mL [facility]: [address] [place] [address] 07/07/2021 Troponin I, Blood Normal Troponin I < 0.02 NG/mL < 0.10 NG/mL [facility]: [address] [place] [address] 07/07/2021 TSH, Serum or Plasma Normal Thyroid Stimulating Hormone 0.696 uIU/mL 0.358-3.740 uIU/mL [facility] nter: [address] [place] [address] 07/07/2021 T4, Free, Serum Low Free T4 0.65 NG/dL 0.76 -1.46 NG/dL [facility]: [address] [place] [address] 07/07/2021 T3, Total, Serum Low Total T3 49.3 NG/d L 60.0-181.0 NG/dL [facility]: [address] [place] [address] 07/07/2021 Sickle Cell Screen, Qual, Light Microscopy, Blood Normal Sickle Cell Screen negative negative [facility]: [address] [place] [address] 07/07/2021 Lactic Acid Level, Lactate Panic High Lactic Acid Level, Lactate 4.3 mmol/L 0.4-2.0 mmol/L [facility]: [address] [place] [address] 07/07/2021 Lactic Acid, Serum or Plasma Panic High Lactic Acid Sepsis Protocol 3.7 mmol/L 0.4-2.0 mmol/L [facility]: [address] [place] [address] 07/07/2021 Periph Smear for Path Review Normal Slide R eview report [facility]: [address] [place] [address] Normal Source peripheral smear [facility]: [address] [facility] Normal Reason for Review atypical lymphs Final [facility]: [address] [facility] 07/07/2021 Mrsa Screen, PCR Normal MRSA PCR Screen no t detected negative Final [facility]: [address] [facility] 07/07/2021 Culture, Blood BLOOD No observation recorded. [facility]: [address] [facility] 07/07/2021 Pathology Request for Service Periph eral Smear-path Review Final [facility]: 83 0 [facility] 07/07/2021 LDH Lactate Dehydrogenase Normal LD H Lactate Dehydrogenase 245 U/L 84-246 U/L [facility] nter: [address] [facility] 07/07/2021 Acetaminophen, Serum Low Acetaminophen L evel 8.7 ug/mL 10.0- 30.0 ug/mL [facility]: 83 0 [facility] 07/07/2021 Culture, Blood BLOOD No observation recorded. [facility]: [address] [facility] 07/07/2021 Haptoglobin Normal Haptoglobin 208 mg/dL 33-27 8 mg/dL [facility]: [address] [facility] 07/07/2021 Complement C2, Serum Normal Complement C2 2.8 mg/dL 1.4-3.3 mg/dL [facility]: 83 0 [facility] 07/02/2021 SARS CoV 2 RNA (COVID-19), QL, application designer-PCR, Respiratory Specim en Covid-19 PCR negative negative [facility]): 4 [facility] 07/02/2021 Lactic Acid La 1.1 mmol/L 0.4-2.0 mmo l/L [facility]): 4 [facility] 07/02/2021 CMP, Serum or Plasma Glu 100 mg/dL 74- 106 mg/dL [facility]): 4 [facility] Bun 9 mg/dL 7-18 mg/dL [facility]): 4 [facility] Cre 0.67 mg/dL 0.6-1.0 mg/dL [facility] ([facility]): 4 [facility] Na 141 mmol/L 136-145 mmol/L [facility] ([facility]): 4 [facility] Low K 3.3 mmol/L 3.5-5.1 mmol/L [facility] ([facility]): 4 [facility] Cl 103 mmol/L 98-107 mmol/L [facility] ([facility]): 4 [facility] Co2 27 mmol/L 21-32 mmol/L [facility] ([facility]): 4 [facility] Ca 8.9 mg/dL 8.5-10.1 mg/dL [facility] ([facility]): 4 [facility] Gap 11.0 mmol/L 5-12 mmol/L [facility] ([facility]): 4 [facility] Gfr >90 mL/min [facility] ([facility]): 4 [facility] Low Ast 9 U/L 15-37 U/L [facility] ([facility]): 4 [facility] Alt 23 U/L 12-78 U/L Final [facility] ([facility]): 4 [facility] High Alk 119 U/L 46-116 U/L [facility] ([facility]): 4 [facility] Low Tbili 0.1 mg/dL 0.2-1.0 mg/dL [facility] ([facility]): 4 [facility] Tp 6.9 g/dL 6.4-8.2 g/dL [facility] ([facility]): 4 [facility] Low Alb 3.1 gm/dL 3.4-5.0 gm/dL [facility] ([facility]): 4 [facility] 07/02/2021 Bnp Bnp 28 pg/mL 0-125 pg/mL [facility] ([facility]): 4 [facility] 07/02/2021 Urine Microscopic High Urbc tntc /hpf 0-3 /h pf [facility] ([facility]): 4 [facility] High UWBC Reflex 0-2 /hpf 0-5 /hpf [facility] ([facility]): 4 [facility] Uec 1+ /hpf 0 /hpf Final [facility] ([facility]): 4 [facility] High Ub Reflex 1+ none seen Final [facility] ([facility]): 4 [facility] Uyeast present [facility] ([facility]): 4 [facility] 07/02/2021 Urinalysis Complete, Reflex Culture Ucol yellow [facility] ([facility]): 4 [facility] Uapp slighty cloudy Final [facility] ([facility]): 4 [facility] Ugl negative mg/dL negative mg/dL F [facility] ([facility]): 4 [facility] Ubil negative negative [facility] ([facility]): 4 [facility] Uket negative mg/dL negative mg/dL F [facility] ([facility]): 4 [facility] Sgu 1.010 1.005-1.[address] [facility] ([facility]): 4 [facility] High Ubl Reflex 3+(large) negative [facility] ([facility]): 4 [facility] Yimi 6.5 5.0-9.0 Final [facility] ([facility]): 4 [facility] Upro Reflex negative mg/dL negative mg/dL [facility] ([facility]): 4 [facility] Uuro normal(0.2-1) mg/dL 0-1 mg/dL F [facility] ([facility]): 4 [facility] Unit Reflex negative negative [facility] ([facility]): 4 [facility] Ule Reflex negative negative [facility] ([facility]): 4 [facility] 07/02/2021 Magnesium, Serum or Plasma mg 2.0 mg/ dL 1.8-2.4 mg/dL [facility] ([facility]): 4 [facility] 07/02/2021 Troponin-high Sensitivity Trophs 5.4 NG /L 0-60.4 NG/L [facility] ([facility]): 4 [facility] 07/02/2021 Troponin-high Sensitivity Trophs 4.6 NG /L 0-60.4 NG/L [facility]): 4 [facility] 07/02/2021 TORCH Respiratory Panel Tadeno not detected detected not detected [facility] ([facility]): [address], [place] [id number] not detected detected not detected [facility] ([facility]): 4 Hu , [place] Tcorohku1 not detected detected not detected [facility] ([facility]): 4 Hu , [place] Numvsuk97 not detected detected not detected [facility] ([facility]): 4 Hu , [place] [id number] not detected detected not detected [facility] ([facility]): 4 [facility], [place] Tcorosars2 not detected detected not detected [facility] ([facility]): 4 [facility] Thummet not detected detected not de tected [facility] ([facility]): 4 [facility] Thumrhino detected detected not dete cted [facility] ([facility]): 4 [facility] Tflua not detected detected not dete cted [facility] ([facility]): 4 [facility] Tflub not detected detected not dete cted [facility] ([facility]): 4 [facility] Tparaflu1 not detected detected not detected [facility] ([facility]): 4 [facility] Tparaflu2 not detected detected not detected [facility] ([facility]): 4 [facility] Tparaflu3 not detected detected not detected [facility] ([facility]): 4 [facility] Tparaflu4 not detected detected not detected [facility] ([facility]): 4 [facility] Trsv not detected detected not detec jina [facility] ([facility]): 4 [facility] Tbordpara not detected detected not detected [facility] ([facility]): 4 [facility] Tbord not detected detected not dete cted [facility] ([facility]): 4 [facility] Tchlamypne not detected detected not detected [facility] ([facility]): 4 [facility] Tmycpne not detected detected not de tected Final [facility] ([facility]): 4 [facility] 07/02/2021 CBC W/ Auto Diff Wbc 8.3 K/mm3 4.0-10. 0 K/mm3 [facility] ([facility]): 4 [facility] Rbc 4.10 M/mm3 4.00-5.50 M/mm3 [facility] ([facility]): 4 [facility] Low Hgb 10.2 gm/dL 12.0-16.0 gm/dL [facility] ([facility]): 4 [facility] Low Hct 30.9 % 36.0-48.8 % [facility] ([facility]): 4 [facility] Low Mcv 75.4 fL 80-96 fL [facility] ([facility]): 4 [facility] Mch 24.9 pg 27.0-31.0 pg Final [facility] ([facility]): 4 [facility] Mchc 33.0 g/dL 32.0-36.0 g/dL Final [facility] ([facility]): 4 [facility] High Rdw 14.8 % 10.0-14.5 % Final [facility] ([facility]): 4 [facility] Plt 336 K/mm3 172-450 K/mm3 [facility] ([facility]): 4 [facility] Mpv 10.2 fL 9.0-13.0 fL Final [facility] ([facility]): 4 [facility] High Gr% 88.9 % 50-80.0 % [facility] ([facility]): 4 [facility] High Ig% 0.4 % 0.0-0.2 % [facility] 4 [facility] Low Ly% 8.8 % 25.0-50.0 % Final [facility] ([facility]): 4 [facility] Low Mo% 1.8 % 2.0-10.0 % Final [facility] ([facility]): 4 [facility] Eo% 0.0 % 0-5.0 % [facility] ([facility]): 4 [facility] Ba% 0.1 % 0.0-2.0 % [facility] ([facility]): 4 [facility] Gr# 7.4 K/mm3 2.0-8.00 K/mm3 [facility] ([facility]): 4 [facility] Ig# 0.0 K/mm3 0.0-0.2 K/mm3 [facility] ([facility]): 4 [facility] Low Ly# 0.7 K/mm3 1.0-5.0 K/mm3 [facility] ([facility]): 4 [facility] Mo# 0.2 K/mm3 0.10-1.20 K/mm3 [facility] ([facility]): 4 [facility] Eo# 0.0 K/mm3 0.0-0.5 K/mm3 [facility] ([facility]): 4 [facility] Ba# 0.0 K/mm3 0.0-0.2 K/mm3 [facility] ([facility]): 4 [facility] 07/02/2021 Gas Panel, Venous Blood High Vph 7.44 7.3 1-7.41 [facility] ([facility]): 4 [facility] Low Vpco2 35.1 mmHg 41-51 mmHg [facility] ([facility]): 4 [facility] High Vpo2 89 mmHg 35-[address] [facility] ([facility]): 4 [facility] High Vo2 Sat 97.3 % 68-77 % [facility] ([facility]): 4 [facility] Low Vhco3 23.5 mEq/L 24.0-25.0 mEq/L [facility] ([facility]): 4 [facility] Vbe 0.1 -3.0-3.0 [facility] ([facility]): 4 [facility] Vctco2 24.6 mmol/L 23.0-32.0 mmol/L [facility] ([facility]): 4 [facility] 07/02/2021 CMP, Serum or Plasma High Glu 164 mg/dL 74- 106 mg/dL [facility] ([facility]): 4 [facility] Low Bun 5 mg/dL 7-18 mg/dL [facility] ([facility]): 4 [facility] Cre 0.72 mg/dL 0.6-1.0 mg/dL [facility] ([facility]): 4 [facility] Na 141 mmol/L 136-145 mmol/L [facility] ([facility]): 4 [facility] K 3.7 mmol/L 3.5-5.1 mmol/L [facility] ([facility]): 4 [facility] Cl 104 mmol/L 98-107 mmol/L [facility] ([facility]): 4 [facility] Co2 25 mmol/L 21-32 mmol/L [facility] ([facility]): 4 [facility] Ca 8.7 mg/dL 8.5-10.1 mg/dL [facility] [facility] 4 [facility] Gap 12.0 mmol/L 5-12 mmol/L [facility] ([facility]): 4 [facility] Gfr >90 mL/min [facility] ([facility]): 4 [facility] Low Ast 14 U/L 15-37 U/L Final [facility] ([facility]): 4 [facility] Alt 31 U/L 12-78 U/L Final [facility] ([facility]): 4 [facility] Alk 113 U/L 46-116 U/L [facility] ([facility]): 4 [facility] Low Tbili < 0.1 mg/dL 0.2-1.0 mg/dL Drea l [facility] ([facility]): 4 [facility] Tp 6.9 g/dL 6.4-8.2 g/dL [facility] ([facility]): 4 [facility] Low Alb 3.0 gm/dL 3.4-5.0 gm/dL [facility] ([facility]): 4 [facility] 07/02/2021 C Reactive Protein High Crp 55.8 mg/L 0.0-3 .0 mg/L [facility] ([facility]): 4 [facility] 04/02/2021 CBC W/ Auto Diff High White Blood Count 13.0 10 4.0-10.0 10 [facility]: [address] [facility] Normal Red Blood Count 4.29 10 4.00-5.40 10 [facility]: [address] [facility] Low Hemoglobin 10.4 g/dL 12.0-15.5 g/dL [facility]: [address] [place] [address] Low Hematocrit 33.8 % 36.0-47.0 % [facility]: [address] [place] [address] Low Mean Corpuscular Volume 78.8 fL 80.0 -96.0 fL [facility]: [address] [place] [address] Low Mean Corpuscular Hemoglobin 24.2 pg 27.0-33.0 pg [facility]: [address] [place] [address] Low Mean Corpuscular HGB Conc 30.8 g/dL 32.0-36.5 g/dL [facility]: [address] [place] [address] High Red Cell Distribution Width 15.7 % 1 1.5-14.5 % [facility]: [address] [place] [address] Normal Platelet Count, Automated 361 10 150 -450 10 [facility]: [address] [facility] Normal Neutrophils % 62.9 % 36.0-66.0 % Fin [facility]: [address] [facility] Normal Lymph % 28.4 % 24.0-44.0 % [facility]: [address] [facility] Normal Brooke % 5.2 % 2.0-8.0 % Final [facility]: 0 [facility] Normal Eos % 2.5 % 0.0-3.0 % [facility]: [address] [facility] Normal Baso % 0.5 % 0.0-1.0 % Final [facility]: [address] [facility] Normal Immature Granulocyte % 0.5 % 0-3.0 % [facility]: [address] [facility] Normal Nucleated Red Blood Cell % 0.0 % 0- 0 % [facility]: [address] [facility] Normal Neutrophils # 8.2 10 1.5-8.5 10 [facility]: [address] [facility] Normal Lymph # 3.7 10 1.5-5.0 10 [facility]: [address] [facility] Normal Brooke # 0.7 10 0.0-0.8 10 [facility]: [address] [facility] Normal Eos # 0.3 10 0.0-0.5 10 [facility]: 0 [facility] Normal Baso # 0.1 10 0.0-0.2 10 [facility]: [address] [place] [address] 04/02/2021 PT/INR Normal Prothrombin Time 13.6 secon ds 12.5-14.3 seconds [facility]: [address] [place] [address] Normal Inr 1.02 [facility]: [address] [place] [address] 04/02/2021 Partial Thromboplastin Time Normal Partial Thromboplastin Time 34.5 seconds 24.2-38.5 seconds [facility] nter: [address] [place] [address] 04/02/2021 Cardiovascular Assessment Panel, Serum Normal CPK Creatine Phosphokinase 155 U/L 26-192 U/L [facility]: [address] [place] [address] Normal CK-mb Value Mass < 1.0 NG/mL <3.6 NG /mL [facility]: [address] [place] [address] Normal mb/CK Relative Index 0.65 < or =4 [facility]: [address] [place] [address] Normal Troponin I < 0.02 NG/mL < 0.10 NG/mL [facility]: [address] [place] [address] 04/02/2021 Hepatic Function Panel, Serum Normal AST/SG OT 12 U/L 7-37 U/L [facility]: [address] [place] [address] Normal ALT/SGPT 27 U/L 12-78 U/L [facility]: [address] [place] [address] High Alkaline Phosphatase 132 U/L 45-117 U/L [facility]: [address] [place] [address] Low Bilirubin,total 0.1 mg/dL 0.2-1.0 mg /dL [facility]: [address] [place] [address] Normal Bilirubin,direct < 0.1 mg/dL 0.0-0.2 mg/dL [facility]: [address] [place] [address] Normal Total Protein 6.4 gm/dL 6.4-8.2 gm/d L [facility]: [address] [place] [address] Normal Albumin 3.2 gm/dL 3.2-5.2 gm/dL Drea l [facility]: [address] [place] [address] Low Albumin/globulin Ratio 1.0 1.2-2. 2 [facility]: [address] [place] [address] 04/02/2021 C-reactive Protein, Qualitative, Serum Normal Glucose, Fasting 88 mg/dL 70-100 mg/dL [facility] nter: [address] [place] [address] Normal Blood Urea Nitrogen 7 mg/dL 7-18 mg/ dL [facility]: [address] [place] [address] Normal Creatinine for GFR 0.71 mg/dL 0.55-1 .30 mg/dL [facility]: [address] [place] [address] Normal Glomerular Filtration Rate > 60.0 >6 0 [facility]: [address] [place] [address] Normal Sodium Level 142 mEq/L 136-145 mEq/L [facility]: [address] [place] [address] Normal Potassium Serum 3.6 mEq/L 3.5-5.1 mE q/L [facility]: [address] [place] [address] High Chloride Level 111 mEq/L 98-107 mEq/ L [facility]: [address] [place] [address] Normal Carbon Dioxide Level 28 mEq/L 21-32 mEq/L [facility]: [address] [place] [address] Low Anion Gap 3 mEq/L 8-16 mEq/L [facility]: [address] [facility] Low Calcium Level 8.3 mg/dL 8.5-10.1 mg/ dL [facility]: [address] [facility] 04/02/2021 Amylase, Serum or Plasma Normal Amylase 30 U/L 25-115 U/L [facility]: [address] [facility] 04/02/2021 Lipase, Serum or Plasma Low Lipase 45 U/L 7 3-393 U/L [facility]: [address] [facility] 04/02/2021 Ethanol, Blood Normal Ethyl Alcohol (Ethano l) < 0.003 % 0.000- 0.010 % [facility]: 83 0 [facility] 04/02/2021 Lactic Acid, Serum or Plasma Normal Lactic Acid Sepsis Protocol 1.6 mmol/L 0.4-2.0 mmol/L [facility]: [address] [facility] 04/02/2021 Type + Screen, Serum Normal Blood Type O posit socrates [facility]: [address] [facility] Normal Ab Screen (Indirect Colin)vis negat socrates [facility]: [address] [facility] 04/02/2021 UA W/ Reflex to Culture Normal Appearance, Urine Rfx clear clear [facility]: [address] [facility] Normal Color, Urine Rfx yellow yellow [facility]: [address] [facility] Normal pH,urine Rfx 6.0 units 5.0-9.0 units [facility]: [address] [facility] Normal Specific Capay Ur Auto Rfx 1.018 1.002-1.035 [facility]: [address] [facility] Normal Protein, Urine Auto Rfx negative mg/ dL negative mg/dL [facility]: [address] [facility] Normal Glucose, Urine (UA) Auto Rfx n egative mg/dL negative mg/dL [facility]: [address] [facility] Normal Ketone, Urine Auto Rfx negative mg/d L negative mg/dL [facility]: [address] [facility] Normal Urobilinogen, Urine Auto Rfx 0.2 mg/ dL 0.0-2.0 mg/dL [facility]: [address] [facility] Normal Bilirubin, Urine Auto Rfx negative n egative [facility]: [address] [facility] Normal Nitrite, Urine Auto Rfx negative neg ative [facility]: [address] [facility] Normal Leukocyte Esterase Ur Auto Rfx negat socrates negative [facility]: [address] [facility] Normal Blood, Urine Blood Rfx negative nega tive [facility]: [address] [facility] Normal WBC, Urine Auto Rfx 0 /hpf 0-3 /hpf [facility]: [address] [facility] Normal RBC, Urine Auto Rfx 0 /hpf 0-3 /hpf [facility]: [address] [facility] Normal Bacteria, Urine Auto Rfx negative ne gative [facility]: [address] [facility] Normal Squam Epithelial Cell Ur Aurfx 3 /hp f 0-6 /hpf [facility]: [address] [facility] Normal Mucus, Urine Rfx small negative Fin [facility]: [address] [facility] Normal Hyaline Cast, Urine Auto Rfx 0 /lpf 0-1 /lpf [facility]: [address] [facility] 04/02/2021 Drug Screen, Urine Normal Amphetamines Leve l Urine negative negative [facility]: [address] [facility] High Barbiturates Urine positive negative [facility]: [address] [facility] Normal Benzodiazepines Urine negative negat socrates [facility]: [address] [facility] High Cannabinoids Urine positive negative [facility]: [address] [facility] Normal Cocaine Metabolite Urine negative ne gative [facility]: [address] [facility] Normal Methadone Urine negative negative Fi nal [facility]: [address] [facility] Normal Opiates Urine negative negative Drea l [facility]: [address] [facility] Normal Phencyclidine Urine negative negativ e [facility]: [address] [facility] 03/07/2021 CBC W/ Auto Diff Blood venous No observation re corded. [facility]: [address] [facility] [address], [place] 03/07/2021 TSH + Free T4, Serum Blood venous No observa tion recorded. 03/07/2021 CMP, Serum or Plasma Blood venous No observa tion recorded. 03/07/2021 Lipid Panel, Serum Blood venous No observation recorded. [facility]: [address] [facility] [address], [place] 03/07/2021 HbA1C (Hemoglobin a1C), Blood Blood venous No observation recorded. [facility]: [address] [facility] [address], [place] 03/07/2021 Vitamin D, 25-Hydroxy, Total, Serum Blood venous No observation recorded. [facility]: [address] [facility] [address], [place] 03/07/2021 Lupus Anticoagulant, Plasma Blood venous No observation recorded. [facility]: [address] [facility] [address], [place] 03/05/2021 Levetiracetam, Serum Normal Levetiracetam ( Keppra) 10.2 ug/mL 10.0-40.0 ug/mL [facility]: [address] [facility] 02/20/2021 Istat Chem8+ Panel Low Istat HCT 37.0 % 38. 0-51.0 % [facility]: [address] [facility] Normal Istat Glucose 94 mg/dL 70-105 mg/dL [facility]: [address] [facility] Normal Istat Sodium 140 mEq/L 136-145 mEq/L [facility]: [address] [facility] Normal Istat Potassium 4.3 mEq/L 3.5-5.1 mE q/L [facility]: [address] [facility] Normal Istat Ca++ 5.0 mg/dL 4.5-5.3 mg/dL [facility]: [address] [facility] Normal Istat Chloride 107 mEq/L 98-109 mEq/ L [facility]: [address] [place] [address] Normal Istat CO2 26.0 mm/L 23.0-27.0 mm/L F [facility]: [address] [facility] Normal Istat BUN 9 mg/dL 8-26 mg/dL [facility]: [address] [place] [address] Low Istat Creatinine 0.5 mg/dL 0.6-1.3 m g/dL [facility]: [address] [place] [address] 02/20/2021 CBC W/ Auto Diff High White Blood Count 12.7 10 4.0-10.0 10 [facility]: [address] [place] [address] Normal Red Blood Count 4.60 10 4.00-5.40 10 [facility]: [address] [place] [address] Low Hemoglobin 11.4 g/dL 12.0-15.5 g/dL [facility]: [address] [place] [address] Normal Hematocrit 37.4 % 36.0-47.0 % [facility]: [address] [place] [address] Normal Mean Corpuscular Volume 81.3 fL 80.0 -96.0 fL [facility]: [address] [place] [address] Low Mean Corpuscular Hemoglobin 24.8 pg 27.0-33.0 pg [facility]: [address] [place] [address] Low Mean Corpuscular HGB Conc 30.5 g/dL 32.0-36.5 g/dL [facility]: [address] [place] [address] High Red Cell Distribution Width 15.2 % 1 1.5-14.5 % [facility]: [address] [place] [address] Normal Platelet Count, Automated 303 10 150 -450 10 [facility]: [address] [place] [address] Normal Neutrophils % 63.4 % 36.0-66.0 % [facility]: [address] [facility] Normal Lymph % 28.5 % 24.0-44.0 % Final [facility]: [address] [facility] Normal Brooke % 5.6 % 2.0-8.0 % Final [facility]: [address] [facility] Normal Eos % 1.7 % 0.0-3.0 % [facility]: [address] [facility] Normal Baso % 0.4 % 0.0-1.0 % [facility]: [address] [facility] Normal Immature Granulocyte % 0.4 % 0-3.0 % [facility]: [address] [facility] Normal Nucleated Red Blood Cell % 0.0 % 0- 0 % [facility]: [address] [facility] Normal Neutrophils # 8.1 10 1.5-8.5 10 [facility]: [address] [facility] Normal Lymph # 3.6 10 1.5-5.0 10 [facility]: [address] [facility] Normal Brooke # 0.7 10 0.0-0.8 10 [facility]: [address] [facility] Normal Eos # 0.2 10 0.0-0.5 10 [facility]: [address] [facility] Normal Baso # 0.1 10 0.0-0.2 10 [facility]: [address] [facility] 02/20/2021 ESR (Erythrocyte Sedimentation Rate), Blood Hig h Erythrocyte Sedimentation Rate 36 mm/HR 0-20 mm/HR [facility]: 0 [facility] 02/20/2021 Hepatic Function Panel, Serum Normal AST/SG OT 12 U/L 7-37 U/L [facility]: [address] [facility] Normal ALT/SGPT 45 U/L 12-78 U/L [facility]: 0 [facility] High Alkaline Phosphatase 166 U/L 45-117 U/L [facility]: [address] [place] [address] Low Bilirubin,total < 0.1 mg/dL 0.2-1.0 mg/dL [facility]: [address] [place] [address] Normal Bilirubin,direct < 0.1 mg/dL 0.0-0.2 mg/dL [facility]: [address] [place] [address] Normal Total Protein 6.6 gm/dL 6.4-8.2 gm/d L [facility]: [address] [place] [address] Normal Albumin 3.4 gm/dL 3.2-5.2 gm/dL [facility]: [address] [place] [address] Low Albumin/globulin Ratio 1.1 1.2-2. 2 [facility]: [address] [place] [address] 02/20/2021 C Reactive Protein, QN, Serum or Plasma High C Reactive Protein Quantitativ 2.71 mg/dL 0.00-0.30 mg/dL [facility]: [address] [place] [address] 01/05/2021 Urinalysis, Dipstick, Auto No observation recorded. 01/05/2021 Test, Urine No observation kesha rded. 12/06/2020 Cbc High White Blood Count 12.8 10 4.0-10 .0 10 [facility]: [address] [place] [address] Normal Red Blood Count 4.47 10 4.00-5.40 10 [facility]: [address] [place] [address] Low Hemoglobin 11.4 g/dL 12.0-15.5 g/dL [facility]: [address] [place] [address] Normal Hematocrit 36.5 % 36.0-47.0 % [facility]: [address] [place] [address] Normal Mean Corpuscular Volume 81.7 fL 80.0 -96.0 fL [facility]: [address] [place] [address] Low Mean Corpuscular Hemoglobin 25.5 pg 27.0-33.0 pg [facility]: [address] [place] [address] Low Mean Corpuscular HGB Conc 31.2 g/dL 32.0-36.5 g/dL [facility]: [address] [facility] Normal Red Cell Distribution Width 13.8 % 1 1.5-14.5 % [facility]: [address] [facility] Normal Platelet Count, Automated 350 10 150 -450 10 [facility]: [address] [facility] Normal Nucleated Red Blood Cell % 0.0 % 0- 0 % [facility]: [address] [facility] 12/05/2020 CBC W/ Auto Diff High White Blood Count 16.0 10 4.0-10.0 10 [facility]: [address] [place] [address] Normal Red Blood Count 4.80 10 4.00-5.40 10 [facility]: 0 [facility] Normal Hemoglobin 12.1 g/dL 12.0-15.5 g/dL [facility]: 0 [facility] Normal Hematocrit 39.0 % 36.0-47.0 % [facility]: 0 [facility] Normal Mean Corpuscular Volume 81.3 fL 80.0 -96.0 fL [facility]: [address] [place] [address] Low Mean Corpuscular Hemoglobin 25.2 pg 27.0-33.0 pg [facility]: [address] [place] [address] Low Mean Corpuscular HGB Conc 31.0 g/dL 32.0-36.5 g/dL [facility]: [address] [facility] Normal Red Cell Distribution Width 13.8 % 1 1.5-14.5 % [facility]: [address] [facility] Normal Platelet Count, Automated 370 10 150 -450 10 [facility]: 0 [facility] High Neutrophils % 74.0 % 36.0-66.0 % [facility]: [address] [facility] Low Lymph % 19.3 % 24.0-44.0 % [facility]: [address], [place] Normal Brooke % 3.7 % 0.0-5.0 % [facility]: [address] [facility] Normal Eos % 2.1 % 0.0-3.0 % [facility]: [address] [facility] Normal Baso % 0.5 % 0.0-1.0 % [facility]: [address] [facility] Normal Immature Granulocyte % 0.4 % 0-3.0 % [facility]: [address] [place] [address] Normal Nucleated Red Blood Cell % 0.0 % 0- 0 % [facility]: [address] [facility] High Neutrophils # 11.8 10 1.5-8.5 10 Fin [facility]: [address] [facility] Normal Lymph # 3.1 10 1.5-5.0 10 [facility]: [address] [facility] Normal Brooke # 0.6 10 0.0-0.8 10 [facility]: [address] [facility] Normal Eos # 0.3 10 0.0-0.5 10 [facility]: [address] [facility] Normal Baso # 0.1 10 0.0-0.2 10 [facility]: 0 [facility] 12/05/2020 Hepatic Function Panel, Serum Low AST/SG OT 6 U/L 7-37 U/L [facility]: 0 [facility] Normal ALT/SGPT 19 U/L 12-78 U/L [facility]: [address] [facility] High Alkaline Phosphatase 136 U/L 45-117 U/L [facility]: 0 [facility] Low Bilirubin,total < 0.1 mg/dL 0.2-1.0 mg/dL [facility]: 0 [facility] Normal Bilirubin,direct < 0.1 mg/dL 0.0-0.2 mg/dL [facility]: 0 [facility] Normal Total Protein 7.4 gm/dL 6.4-8.2 gm/d L [facility]: [address] [facility] Normal Albumin 3.7 gm/dL 3.2-5.2 gm/dL Drea l [facility]: [address] [facility] Low Albumin/globulin Ratio 1.0 1.2-2. 2 [facility]: [address] [facility] 12/05/2020 BMP, Serum or Plasma Normal Glucose, Fastin g 90 mg/dL 70-100 mg/dL [facility]: [address] 0 [facility] Normal Blood Urea Nitrogen 15 mg/dL 7-18 mg /dL [facility]: 0 [facility] Normal Creatinine for GFR 0.83 mg/dL 0.55-1 .30 mg/dL [facility]: 0 [facility] Normal Glomerular Filtration Rate > 60.0 >6 0 [facility]: [address] [facility] Normal Sodium Level 141 mEq/L 136-145 mEq/L [facility]: 0 [facility] Normal Potassium Serum 3.6 mEq/L 3.5-5.1 mE q/L [facility]: 0 [facility] High Chloride Level 110 mEq/L 98-107 mEq/ L [facility]: 0 [facility] Normal Carbon Dioxide Level 21 mEq/L 21-32 mEq/L [facility]: 0 [facility] Normal Anion Gap 10 mEq/L 8-16 mEq/L [facility]: 0 [facility] Normal Calcium Level 9.3 mg/dL 8.5-10.1 mg/ dL [facility]: [address] [facility] 12/05/2020 Lipase, Serum or Plasma Normal Lipase 165 U/L 73-393 U/L [facility]: [address] [facility] 12/05/2020 PT/INR High Prothrombin Time 23.9 secon ds 12.5-14.3 seconds [facility]: 0 [facility] Normal Inr 2.09 [facility]: [address] [facility] 12/05/2020 Partial Thromboplastin Time High Partial Thromboplastin Time 56.4 seconds 24.2-38.5 seconds [facility] nter: [address] [facility] 12/05/2020 Type + Screen, Serum Normal Blood Type O posit socrates [facility]: [address] [facility] Normal Ab Screen (Indirect Colin)vis negat socrates [facility]: [address] [facility] 12/05/2020 UA W/ Reflex to Culture Normal Appearance, Urine Rfx clear clear [facility]: [address] 0 [facility] Normal Color, Urine Rfx colorless yellow Fi [facility]: [address] [facility] Normal pH,urine Rfx 5.0 units 5.0-9.0 units [facility]: [address] [facility] Normal Specific Capay Ur Auto Rfx 1.036 1.002-1.035 [facility]: [address] [facility] Normal Protein, Urine Auto Rfx negative mg/ dL negative mg/dL [facility]: [address] [facility] Normal Glucose, Urine (UA) Auto Rfx n egative mg/dL negative mg/dL [facility]: [address] [facility] Normal Ketone, Urine Auto Rfx negative mg/d L negative mg/dL [facility]: [address] [facility] Normal Urobilinogen, Urine Auto Rfx 0.2 mg/ dL 0.0-2.0 mg/dL [facility]: [address] [facility] Normal Bilirubin, Urine Auto Rfx negative n egative [facility]: [address] [facility] Normal Nitrite, Urine Auto Rfx negative neg ative [facility]: [address] [facility] Normal Leukocyte Esterase Ur Auto Rfx negat socrates negative [facility]: [address] [facility] High Blood, Urine Blood Rfx 1+ negati ve [facility]: [address] [facility] High WBC, Urine Auto Rfx 4 /hpf 0-3 /hpf [facility]: [address] [facility] Normal RBC, Urine Auto Rfx 0 /hpf 0-3 /hpf [facility]: [address] [facility] Normal Bacteria, Urine Auto Rfx negative ne gative [facility]: [address] [facility] Normal Squam Epithelial Cell Ur Aurfx 3 /hp f 0-6 /hpf [facility]: [address] [facility] Normal Mucus, Urine Rfx small negative Fin [facility]: [address] [place] [address] Normal Hyaline Cast, Urine Auto Rfx 0 /lpf 0-1 /lpf [facility]: [address] [place] [address] 11/28/2020 CBC W/ Auto Diff High White Blood Count 13.2 10 4.0-10.0 10 [facility]: [address] [place] [address] Normal Red Blood Count 4.71 10 4.00-5.40 10 [facility]: 0 [facility] Low Hemoglobin 11.9 g/dL 12.0-15.5 g/dL [facility]: [address] [place] [address] Normal Hematocrit 38.4 % 36.0-47.0 % [facility]: [address] [place] [address] Normal Mean Corpuscular Volume 81.5 fL 80.0 -96.0 fL [facility]: [address] [place] [address] Low Mean Corpuscular Hemoglobin 25.3 pg 27.0-33.0 pg [facility]: [address] [place] [address] Low Mean Corpuscular HGB Conc 31.0 g/dL 32.0-36.5 g/dL [facility]: [address] [place] [address] Normal Red Cell Distribution Width 14.0 % 1 1.5-14.5 % [facility]: 0 [facility] Normal Platelet Count, Automated 298 10 150 -450 10 [facility]: 0 [facility] Normal Neutrophils % 61.2 % 36.0-66.0 % [facility]: [address] [facility] Normal Lymph % 28.6 % 24.0-44.0 % [facility]: [address] [facility] Normal Brooke % 3.9 % 0.0-5.0 % [facility]: [address] [facility] High Eos % 5.5 % 0.0-3.0 % [facility]: [address] [facility] Normal Baso % 0.4 % 0.0-1.0 % [facility]: [address] [facility] Normal Immature Granulocyte % 0.4 % 0-3.0 % [facility]: [address] [place] [address] Normal Nucleated Red Blood Cell % 0.0 % 0- 0 % [facility]: [address] [facility] Normal Neutrophils # 8.1 10 1.5-8.5 10 [facility]: [address] [facility] Normal Lymph # 3.8 10 1.5-5.0 10 [facility]: [address] [facility] Normal Brooke # 0.5 10 0.0-0.8 10 [facility]: 0 [facility] High Eos # 0.7 10 0.0-0.5 10 [facility]: [address] [facility] Normal Baso # 0.1 10 0.0-0.2 10 [facility]: [address] [facility] 11/28/2020 Urinalysis, Dipstick Normal Appearance, Urine hazy clear [facility]: 0 [facility] High Color, Urine red yellow [facility]: 0 [facility] Normal pH,urine 7.0 units 5.0-9.0 units [facility]: 0 [facility] Normal Specific Capay Urine Auto 1.005 1 .002-1.035 [facility]: [address] [place] [address] High Protein, Urine Auto 1+ mg/dL negativ e mg/dL [facility]: [address] [facility] Normal Glucose, Urine (UA) Auto negative mg /dL negative mg/dL [facility]: [address] [facility] Normal Ketone, Urine Auto negative mg/dL ne gative mg/dL [facility]: [address] [facility] Normal Urobilinogen, Urine Auto 0.2 mg/dL 0 .0-2.0 mg/dL [facility]: [address] [facility] Normal Bilirubin, Urine Auto negative negat socrates [facility]: [address] [facility] Normal Nitrite, Urine Auto negative negativ e [facility]: [address] [facility] High Leukocyte Esterase, Urine Auto 1+ negative [facility]: [address] [facility] High Blood, Urine Blood 3+ negative F [facility]: [address] [facility] High WBC, Urine Auto 4 /hpf 0-3 /hpf [facility]: [address] [facility] High RBC, Urine Auto tntc /hpf 0-3 /hpf [facility]: [address] [facility] Normal Bacteria, Urine Auto negative negati ve [facility]: [address] [facility] Normal Squamous Epithelial Cell Ur AU 1 /hp f 0-6 /hpf [facility]: [address] [facility] Normal Hyaline Cast, Urine Auto 0 /lpf 0-1 /lpf [facility]: [address] [facility] 11/28/2020 PT/INR Normal Prothrombin Time 13.5 secon ds 12.5-14.3 seconds [facility]: [address] [facility] Normal Inr 1.01 [facility]: [address] [facility] 11/28/2020 Hepatic Function Panel, Serum Normal AST/SG OT 14 U/L 7-37 U/L [facility]: [address] [facility] Normal ALT/SGPT 29 U/L 12-78 U/L [facility]: 0 [facility] High Alkaline Phosphatase 141 U/L 45-117 U/L [facility]: 0 [facility] Low Bilirubin,total 0.1 mg/dL 0.2-1.0 mg /dL [facility]: [address] [facility] Normal Bilirubin,direct < 0.1 mg/dL 0.0-0.2 mg/dL [facility]: [address] [facility] Normal Total Protein 6.8 gm/dL 6.4-8.2 gm/d L [facility]: 0 [facility] Normal Albumin 3.3 gm/dL 3.2-5.2 gm/dL Drea l [facility]: 0 [facility] Low Albumin/globulin Ratio 0.9 1.2-2. 2 [facility]: [address] [place] [address] 11/28/2020 BMP, Serum or Plasma Normal Glucose, Fastin g 100 mg/dL 70-100 mg/dL [facility]: 83 0 [facility] Normal Blood Urea Nitrogen 10 mg/dL 7-18 mg /dL [facility]: 0 [facility] Normal Creatinine for GFR 0.60 mg/dL 0.55-1 .30 mg/dL [facility]: 0 [facility] Normal Glomerular Filtration Rate > 60.0 >6 0 [facility]: [address] [facility] Normal Sodium Level 140 mEq/L 136-145 mEq/L [facility]: 0 [facility] Normal Potassium Serum 3.6 mEq/L 3.5-5.1 mE q/L [facility]: 0 [facility] Normal Chloride Level 106 mEq/L 98-107 mEq/ L [facility]: 0 [facility] Normal Carbon Dioxide Level 25 mEq/L 21-32 mEq/L [facility]: 0 [facility] Normal Anion Gap 9 mEq/L 8-16 mEq/L [facility]: [address] [place] [address] Normal Calcium Level 9.0 mg/dL 8.5-10.1 mg/ dL [facility]: [address] [place] [address] 11/28/2020 Type + Screen, Serum Normal Blood Type O posit socrates [facility]: [address] [place] [address] Normal Ab Screen (Indirect Colin)vis negat socrates [facility]: [address] [place] [address] 11/28/2020 Culture, Urine URINE,CLEAN CATCH No observation recorded. [facility]: [address] [place] [address] 10/19/2020 Cbc Blood venous High White Blood Count 11. 4 10 4.0-10.0 10 [facility]: [address] [place] [address] Blood venous Normal Red Blood Count 4.70 10 4.00- 5.40 10 [facility]: [address] [place] [address] Blood venous Low Hemoglobin 11.8 g/dL 12.0-15. 5 g/dL [facility]: [address] [place] [address] Blood venous Normal Hematocrit 38.5 % 36.0-47.0 % [facility]: [address] [place] [address] Blood venous Normal Mean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
--- OUTSIDE RECORDS SUMMARY | 2021-10-04 04:46 | CCD ---
Author Author [facility] Organization [facility] Address Unknown Phone Unavailable Care Team Providers Care Sexton Helper Name Role Phone Alfonso Smyth Unavailable PROBLEMS Type Condition ICD9-CM Code DUL88-QH Code Onset Dates Condition S tatus W/U Status Risk SNOMED Code Notes Problem Migraine, unspecified, not intractable, without status migrainosus G43.909 Active confirmed 49300249 Problem Lumbosacral spondylosis without myelopathy M47.817 Active confirmed 46408968 Problem Secondary amenorrhea N91.1 Active confirmed 522587844 Problem Chronic migraine without aur a, not intractable, without status migrainosus G43.709 Active confirmed [id number] Problem Other chronic pain G89.29 Active confirmed 8 0391361 Problem Chronic migraine G43.709 Active confirmed 42 6064552 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 A ctive confirmed 60386956 ALLERGIES Allergen (clinical drug ingredient) Drug/Non Drug Allergy do cumented on EMR Reaction Allergy Type Onset Date Status tramadol Tramadol Unknown Drug Allergy Active famotidine Pepcid(ND Code:[address]-57) Nausea/Vomiting/Rash Drug A llergy Active enoxaparin Lovenox(ND Code:[address]-35) Unknown Drug Allergy Active Kiwi Anaphylaxis Non Drug Allergy Active promethazine Phenergan(NDC Code:[address]-55) Nausea/Vomiting Drug A llergy Active Avocados Anaphylaxis Non Drug Allergy Active poractant carrol Pork-derived Products Unknown Drug Allergy Active Latex Exam Gloves Hives/anaphylaxis Drug Allergy Active banana allergenic extract Banana (Diagnostic)(ND Code:[address]-10) Anaphylaxis Drug Allergy Active hydroxychloroquine Plaquenil([facility] Code:[address]-69) Anaphylaxis Drug Allergy Active ENCOUNTERS from 1989 to 2021-08-26 Encounter Location Date Provider Diagnosis [facility] [address] [phone] [place] [address] 14 Aug, 2021 Alfonso Smyth Other chronic pain G 89.29 and Chronic migraine G43.709 IMMUNIZATIONS No Information SOCIAL HISTORY Tobacco Use: Social History Observation Description Date Details (start date - stop date) Former Smoker Sex Assigned At : Social History Observation Description Sex Assigned At Unknown Education: Question Answer Notes Level of Education: College Language: Question Answer Notes Languages spoken: Nepalese Protestant: Question Answer Notes Protestant No gnosticist beliefs that would impact health care. Alcohol [...] daily as needed MDD2 for 30 days 14 Aug, 2021 Active Albuterol Sulfate HFA 108 (90 Base) [...] Information RESULTS No Results REASON FOR VISIT norco/fiorocet MEDICAL (GENERAL) HISTORY Type Description Date Medical [...] Notes Treatment Notes Treatm ent Clinical Notes Aug, Other chronic pain (ICD-10 - G89.29) Aug, Chronic migraine (ICD-10 - G43.709) PLAN OF TREATMENT Medication Medication Name Sig Start Date Stop Date HYDROcodone-Acetaminophen 5-325 MG 1 tablet as needed Orally twice daily as needed MDD2 for 30 days Aug, Fioricet 50-325-40 MG 1 tablet as needed Orally ev darlene 4 hrs PRN headache MDD3 for 30 days Next Appt Details Provider Name:Divine Gan, 2020--0 1 02:40:00 PM, [address], , [place], [address], Provider Name:Kris Barrientos, 2021-09-27 09:30:00 AM, [address] [place] [address], , [place], [address], Provider Name:Kris Barrientos, 2021-10-17 10:40:00 AM, [address] [place] [address], , [place], [address], Provider Name:Kris Barrientos, 2021-11-16 11:15:00 AM, [address] [place] [address], , [place], [address], Insurance Providers Payer Name Payer Address Payer Phone Insured Name Patient Relati onship to Insured Coverage Start Date Coverage End Date [facility] CLAIMS DEPT [address] [facility] [phone] WINSOME RODRIGUEZ self
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
--- OUTSIDE RECORDS SUMMARY | 2021-10-04 04:46 | CCD ---
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 RxNorm Banana Anaphylaxis Active 0140968 RxNorm Latex Active 8745 RxNorm Promethazine Rash [...] TABLET BY MOUTH TWICE A DAY Completed bierifldii-gmkqwdhlxhoab-caxoozdq 50 mg- 300 mg-40 mg capsule TAKE ONE CAPSULE BY MOUTH EVERY 4 HOURS NEEDED Completed 03/01/2021 ddaidampph-nidemewjjdcqb-yhlmdvon 50 mg-325 mg-40 mg tablet Acti ve [...] Tube Information n ot available 11/08/2020 Electrocardiogram [facility] [address] [facility] [address] [place] [address] (Work Place) 08/08/2021 MRI, Brain, W/o Contrast [facility] [address] [place] [address] (Work Place) Notes: section x5, Involuntary D&C, Appendectomy, Tonsillectomy, Gallbladder Results Lab Results Date Name Specimen Result Interpretation Description Value Range Status Address 08/15/2021 Iron + TIBC + Ferritin, Serum Blood venous Low Iron, Total 26 mcg/dL 40-190 mcg/dL Final [facility]: [address] [facility] Blood venous Normal Iron Binding Capacity 38 4 mcg/dL (calc) 250-450 mcg/dL (calc) Final [facility]: [address] [facility] Blood venous Low % Saturation 7 % (calc) 16-45 % (calc) Final [facility]: [address] [facility] Blood venous Low Ferritin 11 NG/mL 16-154 NG/m L Final [facility]: [address] [facility] 08/15/2021 HIV 1/2 Antigen/antibody, 4TH Gen W/rfl,screenin g Blood venous Normal HIV Ag/Ab, 4TH Gen non-reactive non-reactive Final [facility]: [address] [facility] 08/15/2021 Cbc Blood venous High White Blood Cell Count 12.2 thousand/uL 3.8-10.8 thousand/uL Final [facility] gh: [address] [facility] Blood venous Normal Red Blood Cell Count 4.5 4 million/uL 3.80-5.10 million/uL Final [facility] gh: [address] [facility] Blood venous Low Hemoglobin 10.6 g/dL 11.7-15. 5 g/dL Final [facility]: [address] [facility] Blood venous Normal Hematocrit 35.5 % 35.0-45.0 % Final [facility]: [address] [facility] Blood venous Low Mcv 78.2 fL 80.0-100.0 fL Fi nal [facility]: [address] [facility] Blood venous Low Mch 23.3 pg 27.0-33.0 pg Fin al [facility]: [address] [facility] Blood venous Low Mchc 29.9 g/dL 32.0-36.0 g/dL Final [facility]: [address] [facility] Blood venous Normal Rdw 14.6 % 11.0-15.0 % Final [facility]: [address] [facility] Blood venous High Platelet Count 536 thous and/uL 140-400 thousand/uL Final [facility]: [address] [facility] Blood venous Normal Mpv 10.9 fL 7.5-12.5 fL Drea l [facility]: [address] [facility] 08/09/2021 Urinalysis, Dipstick Normal Appearance, Urine hazy clear [facility] [place]: [address] [facility] Normal Color, Urine yellow yellow Final [facility]: [address] [facility] Normal pH,urine 5.0 units 5.0-9.0 units Fin [facility]: [address] [facility] Normal Specific [place] Urine Auto 1.028 1 .002-1.035 [facility] [place]: [address] [facility] Normal Protein, Urine Auto negative mg/dL n egative mg/dL [facility] [place]: [address] [facility] Normal Glucose, Urine (UA) Auto negative mg /dL negative mg/dL [facility] [place]: [address] [facility] Normal Ketone, Urine Auto negative mg/dL ne gative mg/dL [facility] [place]: [address] [facility] Normal Urobilinogen, Urine Auto 0.2 mg/dL 0 .0-2.0 mg/dL [facility] [place]: [address] [facility] Normal Bilirubin, Urine Auto negative negat socrates [facility] [place]: [address] [facility] Normal Nitrite, Urine Auto negative negativ e [facility] [place]: [address] [facility] High Leukocyte Esterase, Urine Auto 1+ negative [facility] [place]: [address] [facility] Normal Blood, Urine Blood negative negative [facility] [place]: [address] [facility] Normal WBC, Urine Auto 2 /hpf 0-3 /hpf [facility]: [address] [facility] Normal RBC, Urine Auto 1 /hpf 0-3 /hpf [facility]: [address] [facility] Normal Bacteria, Urine Auto negative negati ve [facility] [place]: [address] [facility] Normal Squamous Epithelial Cell Ur AU 2 /hp f 0-6 /hpf [facility] [place]: [address] [facility] Normal Mucus, Urine small negative [facility] [place]: [address] [facility] Normal Hyaline Cast, Urine Auto 0 /lpf 0-1 /lpf [facility] [place]: [address] [facility] 08/09/2021 Protein, Total, Urine High Total Protein,random Urine 22.8 mg/dL 0.0-12.0 mg/dL [facility] nter: [address] [facility] 08/09/2021 CMP, Serum or Plasma Normal Glucose, Fastin g 100 mg/dL 70-100 mg/dL [facility] [place]: [address] [facility] Normal Blood Urea Nitrogen 7 mg/dL 7-18 mg/ dL [facility] [place]: [address] [facility] Normal Creatinine for GFR 0.64 mg/dL 0.55-1 .30 mg/dL [facility] [place]: [address] [facility] Normal Glomerular Filtration Rate > 60.0 >[address] [facility] [place]: [address] [facility] Normal Sodium Level 142 mEq/L 136-145 mEq/L [facility] [place]: [address] [facility] Normal Potassium Serum 4.3 mEq/L 3.5-5.1 mE q/L [facility] [place]: [address] [facility] High Chloride Level 109 mEq/L 98-107 mEq/ L [facility] [place]: [address] [facility] Normal Carbon Dioxide Level 27 mEq/L 21-32 mEq/L [facility] [place]: [address] [facility] Low Anion Gap 6 mEq/L 8-16 mEq/L [facility] [place]: [address] [facility] Normal Calcium Level 8.7 mg/dL 8.5-10.1 mg/ dL [facility] [place]: [address] [facility] Normal AST/SGOT 7 U/L 7-37 U/L [facility]: [address] [facility] Normal ALT/SGPT 18 U/L 12-78 U/L [facility]: [address] [facility] High Alkaline Phosphatase 118 U/L 45-117 U/L [facility] [place]: [address] [facility] Low Bilirubin,total 0.1 mg/dL 0.2-1.0 mg /dL [facility] [place]: [address] [facility] Low Total Protein 6.1 gm/dL 6.4-8.2 gm/d L [facility] [place]: [address] [facility] Low Albumin 3.1 gm/dL 3.2-5.2 gm/dL Drea l [facility]: [address] [facility] Low Albumin/globulin Ratio 1.0 1.2-2. 2 [facility] [place]: [address] [facility] 08/09/2021 C3 (Complement), Serum or Plasma Normal Complement C3 167 mg/dL 90-180 mg/dL [facility] nter: [address] [facility] 08/09/2021 C4 (Complement), Serum or Plasma High Com plement C4 44 mg/dL 10-40 mg/dL [facility] [place]: [address] [facility] 08/09/2021 C Reactive Protein, QN, Serum or Plasma High C Reactive Protein Quantitativ 2.21 mg/dL 0.00-0.30 mg/dL [facility]: [address] [place] [address] 08/09/2021 CBC W/ Auto Diff High White Blood Count 10.6 10 4.0-10.[address] [facility] [place]: [address] [place] [address] Low Red Blood Count 3.87 10 4.00-5.[address] [facility] [place]: [address] [place] [address] Low Hemoglobin 9.1 g/dL 12.0-15.5 g/dL F inal [facility]: [address] [place] [address] Low Hematocrit 30.2 % 36.0-47.0 % [facility] [place]: [address] [place] [address] Low Mean Corpuscular Volume 78.0 fL 80.0 -96.[address] [facility] [place]: [address] [place] [address] Low Mean Corpuscular Hemoglobin 23.5 pg 27.0-33.[address] [facility] [place]: [address] [place] [address] Low Mean Corpuscular HGB Conc 30.1 g/dL 32.0-36.5 g/dL [facility] [place]: [address] [place] [address] High Red Cell Distribution Width 15.4 % 1 1.5-14.5 % [facility] [place]: [address] [place] [address] Normal Platelet Count, Automated 425 10 150 -[address] [facility] [place]: 0 [facility] Normal Neutrophils % 63.9 % 36.0-66.0 % [facility]: [address] [facility] Normal Lymph % 25.7 % 24.0-44.0 % [facility]: [address] [facility] Normal [place] % 5.5 % 2.0-8.0 % [facility]: [address] [place] [address] High Eos % 3.8 % 0.0-3.0 % [facility]: 0 [facility] Normal Baso % 0.5 % 0.0-1.0 % [facility]: [address] [facility] Normal Immature Granulocyte % 0.6 % 0-3.0 % [facility] [place]: [address] [facility] Normal Nucleated Red Blood Cell % 0.0 % 0- 0 % [facility] [place]: [address] [facility] Normal Neutrophils # 6.8 10 1.5-8.5 10 Drea l [facility]: [address] [facility] Normal Lymph # 2.7 10 1.5-5.0 10 [facility]: [address] [facility] Normal [place] # 0.6 10 0.0-0.8 10 [facility]: [address] [facility] Normal Eos # 0.4 10 0.0-0.5 10 [facility]: 0 [facility] Normal Baso # 0.1 10 0.0-0.2 10 [facility]: 0 [facility] 08/09/2021 ESR (Erythrocyte Sedimentation Rate), Blood Hig h Erythrocyte Sedimentation Rate 59 mm/HR 0-20 mm/HR [facility]: 0 [facility] 08/07/2021 CBC W/ Auto Diff Normal White Blood Count 9.2 10 4.0-10.[address] [facility] [place]: 0 [facility] Normal Red Blood Count 4.47 10 4.00-5.[address] [facility] [place]: 0 [facility] Low Hemoglobin 10.6 g/dL 12.0-15.5 g/dL [facility] [place]: [address] [place] [address] Low Hematocrit 35.0 % 36.0-47.0 % [facility] [place]: [address] [place] [address] Low Mean Corpuscular Volume 78.3 fL 80.0 -96.[address] [facility] [place]: [address] [place] [address] Low Mean Corpuscular Hemoglobin 23.7 pg 27.0-33.[address] [facility] [place]: [address] [place] [address] Low Mean Corpuscular HGB Conc 30.3 g/dL 32.0-36.5 g/dL [facility] [place]: [address] [facility] High Red Cell Distribution Width 15.3 % 1 1.5-14.5 % [facility] [place]: [address] [facility] Normal Platelet Count, Automated 362 10 150 -[address] [facility] [place]: [address] [facility] Normal Neutrophils % 64.3 % 36.0-66.0 % [facility]: [address] [facility] Normal Lymph % 25.2 % 24.0-44.0 % [facility]: [address] [facility] Normal [place] % 6.0 % 2.0-8.0 % Final [facility]: [address] [facility] High Eos % 3.7 % 0.0-3.0 % [facility]: [address] [facility] Normal Baso % 0.5 % 0.0-1.0 % [facility]: [address] [facility] Normal Immature Granulocyte % 0.3 % 0-3.0 % [facility] [place]: [address] [facility] Normal Nucleated Red Blood Cell % 0.0 % 0- 0 % [facility] [place]: [address] [facility] Normal Neutrophils # 5.9 10 1.5-8.5 10 [facility]: [address] [facility] Normal Lymph # 2.3 10 1.5-5.0 10 [facility]: [address] [facility] Normal [place] # 0.6 10 0.0-0.8 10 [facility]: [address] [facility] Normal Eos # 0.3 10 0.0-0.5 10 [facility]: [address] [facility] Normal Baso # 0.1 10 0.0-0.2 10 [facility]: [address] [facility] 08/07/2021 BMP, Serum or Plasma Normal Glucose, Fastin g 92 mg/dL 70-100 mg/dL [facility] [place]: [address] [facility] Normal Blood Urea Nitrogen 11 mg/dL 7-18 mg /dL [facility] [place]: [address] [facility] Normal Creatinine for GFR 0.80 mg/dL 0.55-1 .30 mg/dL [facility] [place]: [address] [facility] Normal Glomerular Filtration Rate > 60.0 >[address] [facility] [place]: [address] [facility] Normal Sodium Level 144 mEq/L 136-145 mEq/L [facility] [place]: [address] [facility] Normal Potassium Serum 4.0 mEq/L 3.5-5.1 mE q/L [facility] [place]: [address] [facility] High Chloride Level 113 mEq/L 98-107 mEq/ L [facility] [place]: [address] [facility] Normal Carbon Dioxide Level 24 mEq/L 21-32 mEq/L [facility] [place]: [address] [facility] Low Anion Gap 7 mEq/L 8-16 mEq/L [facility] [place]: [address] [facility] Normal Calcium Level 8.8 mg/dL 8.5-10.1 mg/ dL [facility] [place]: [address] [facility] 08/07/2021 Choriogonadotropin, Quant, Serum or Plasma Norm al HCG, Serum Quantitative < 1.0 mIU/mL [facility]: [address] [place] [address] 08/07/2021 Type + Screen, Serum Normal Blood Type O posit socrates [facility] [place]: [address] [facility] Normal Ab Screen (Indirect Colin)vis negat socrates [facility] [place]: [address] [facility] 08/07/2021 [place] ENDOCERVIX No observation recorded. [facility]: 0 [facility] 08/06/2021 CBC W/ Auto Diff Results [facility]: [address] [facility] Wbc 9.5 10^3/uL 4.2 - 11.0 10^3/uL [facility]: [address] [facility] Low Rbc 3.73 10^6/uL 4.20 - 5.40 10^6/u L [facility]: [address] [place] [address] Low Hemoglobin 9.0 g/dL 12.0 - 16.0 g/dL [facility]: [address] [place] [address] Low Hematocrit 28.6 % 37.0 - 47.0 % [facility]: [address] [place] [address] Mcv 76.7 fL 81.0 - 101 fL [facility] [address] [place] [address] Mch 24.1 pg 27.0 - 34.0 pg [facility] [address] [place] [address] Mchc 31.5 g/dL 31.0 - 36.0 g/dL [facility]: [address] [place] [address] Rdw 15.0 % 11.5 - 14.5 % [facility] Hospital: [address] [place] [address] Platelets 367 10^3/uL 150 - 450 10^3 /uL [facility]: [address] [place] [address] Mpv 9.6 fL 7.4 - 10.4 fL Car [facility]: [address] [place] [address] Neut 64.6 % 37.0 - 80.0 % Car [facility]: [address] [place] [address] Lymph 26.4 % 25.0 - 40.0 % Ca [facility]: [address] [place] [address] [place] 5.1 % 3.0 - 8.0 % [facility]: [address] [place] [address] Eos 3.2 % 0.0 - 7.0 % [facility]: [address] [place] [address] Baso 0.4 % 0.0 - 2.5 % [facility]: [address] [place] [address] High %Ig 0.3 % 0.0 - 0.0 % [facility] age [facility] Hospital: [address] [place] [address] %Nrbc 0.0 % 0.0 - 0.0 % [facility] Hospital: [address] [place] [address] #Neut 6.14 10^3/uL 2.00 - 6.90 10^3/ uL [facility]: [address] [place] [address] #Lymph 2.51 10^3/uL 0.60 - 3.40 10^3 /uL [facility]: [address] [place] [address] #[place] 0.48 10^3/uL 0.00 - 0.90 10^3/ uL [facility]: [address] [place] [address] #Eos 0.30 10^3/uL 0.00 - 0.70 10^3/u L [facility]: [address] [place] [address] #Baso 0.04 10^3/uL 0.00 - 0.20 10^3/ uL [facility]: [address] [place] [address] #Ig 0.03 10^3/uL 0.00 - 0.10 10^3/u L [facility]: [address] [place] [address] #Nrbc 0.00 10^3/uL 0.00 - 0.00 10^3/ uL [facility]: [address] [place] [address] Manual Diff not indicated [facility]: [address] [place] [address] RBC Morph not indicated [facility]: [address] [place] [address] 08/06/2021 CMP, Serum or Plasma Results Final [facility]: [address] [place] [address] Sodium 141 mEq/L 134 - 153 mEq/L [facility]: [address] [place] [address] Low Potassium 3.5 mEq/L 3.6 - 5.0 mEq/L [facility]: [address] [place] [address] High Chloride 108 mEq/L 98 - 107 mEq/L [facility]: [address] [place] [address] Co2 25 mEq/L 22 - 30 mEq/L [facility] [address] [place] [address] High Glucose 103 mg/dL 70 - 99 mg/dL [facility]: [address] [place] [address] Bun 7 mg/dL 7 - 21 mg/dL Car [facility] Hospital: [address] [place] [address] Creatinine 0.8 mg/dL 0.7 - 1.5 mg/dL [facility]: [address] [place] [address] BUN/creat 9 8 - 27 [facility] Hospital: [address] [place] [address] Total Protein 6.3 g/dL 6.3 - 8.2 g/d L [facility]: [address] [place] [address] Albumin 4.0 g/dL 3.9 - 5.0 g/dL [facility]: [address] [place] [address] Low Globulin 2.3 gm/dL 2.4 - 3.2 gm/dL [facility]: [address] [place] [address] A/g Ratio 1.7 0.8 - 2.0 Ca [facility] Hospital: [address] [place] [address] Calcium 9.1 mg/dL 8.4 - 10.2 mg/dL [facility]: [address] [place] [address] Total Bili <0.7 mg/dL 0.2 - 1.3 mg/d L [facility]: [address] [place] [address] Alkaline Phos 114 U/L 38 - 126 U/L [facility]: [address] [place] [address] SGOT/AST 11 U/L 5 - 40 U/L Ca [facility] Hospital: [address] [place] [address] SGPT/ALT 10 U/L 7 - 56 U/L Ca [facility] Hospital: [address] [place] [address] Anion Gap 8.0 mmol/L 8.0 - 16.0 mmol /L [facility] Hospital: [address] [place] [address] Age 31 yrs [facility] Hospital: [address] [place] [address] Non-aa GFR >60 mL/min [facility] Hospital: [address] [place] [address] Afr Amer GFR >60 mL/min [facility]: [address] [place] [address] 07/31/2021 UA W/ Reflex to Culture Normal Appearance, Urine Rfx clear clear Final [facility]: [address] [facility] Normal Color, Urine Rfx colorless yellow Fi nal [facility]: [address] [facility] Normal pH,urine Rfx 7.0 units 5.0-9.[address] [facility] [place]: [address] [facility] Normal Specific [place] Ur Auto Rfx 1.002 1.002-1.035 [facility] [place]: [address] [facility] Normal Protein, Urine Auto Rfx negative mg/ dL negative mg/dL [facility] [place]: [address] [facility] Normal Glucose, Urine (UA) Auto Rfx n egative mg/dL negative mg/dL [facility] [place]: [address] [facility] Normal Ketone, Urine Auto Rfx negative mg/d L negative mg/dL [facility] [place]: [address] [facility] Normal Urobilinogen, Urine Auto Rfx 0.2 mg/ dL 0.0-2.0 mg/dL [facility] [place]: [address] [facility] Normal Bilirubin, Urine Auto Rfx negative n egative [facility] [place]: [address] [facility] Normal Nitrite, Urine Auto Rfx negative neg ative [facility] [place]: [address] [facility] Normal Leukocyte Esterase Ur Auto Rfx negat socrates negative [facility] [place]: [address] [facility] High Blood, Urine Blood Rfx 2+ negati ve [facility] [place]: [address] [facility] Normal WBC, Urine Auto Rfx 0 /hpf 0-3 /hpf [facility] [place]: [address] [facility] Normal RBC, Urine Auto Rfx 1 /hpf 0-3 /hpf [facility] [place]: [address] [facility] High Bacteria, Urine Auto Rfx 1+ nega tive [facility] [place]: [address] [facility] Normal Squam Epithelial Cell Ur Aurfx 2 /hp f 0-6 /hpf [facility] [place]: [address] [facility] Normal Hyaline Cast, Urine Auto Rfx 0 /lpf 0-1 /lpf [facility] [place]: [address] [facility] 07/31/2021 CBC W/ Auto Diff Normal White Blood Count 8.4 10 4.0-10.[address] [facility] [place]: [address] [facility] Normal Red Blood Count 4.49 10 4.00-5.[address] [facility] [place]: [address] [facility] Low Hemoglobin 10.7 g/dL 12.0-15.5 g/dL [facility] [place]: [address] [facility] Low Hematocrit 34.9 % 36.0-47.0 % [facility] [place]: [address] [place] [address] Low Mean Corpuscular Volume 77.7 fL 80.0 -96.0 fL Final [facility]: [address] [place] [address] Low Mean Corpuscular Hemoglobin 23.8 pg 27.0-33.0 pg Final [facility]: [address] [place] [address] Low Mean Corpuscular HGB Conc 30.7 g/dL 32.0-36.5 g/dL Final [facility]: [address] [place] [address] High Red Cell Distribution Width 15.4 % 1 1.5-14.5 % [facility] [place]: [address] [place] [address] Normal Platelet Count, Automated 303 10 150 -[address] [facility] [place]: 0 [facility] High Neutrophils % 66.6 % 36.0-66.0 % [facility]: [address] [facility] Low Lymph % 22.6 % 24.0-44.0 % Final [facility]: [address] [facility] Normal [place] % 5.5 % 2.0-8.0 % Final [facility]: 0 [facility] High Eos % 4.6 % 0.0-3.0 % [facility]: 0 [facility] Normal Baso % 0.5 % 0.0-1.0 % Final [facility]: 0 [facility] Normal Immature Granulocyte % 0.2 % 0-3.0 % [facility] [place]: [address] [facility] Normal Nucleated Red Blood Cell % 0.0 % 0- 0 % [facility] [place]: 0 [facility] Normal Neutrophils # 5.6 10 1.5-8.5 10 [facility]: [address] [facility] Normal Lymph # 1.9 10 1.5-5.0 10 [facility]: [address] [facility] Normal [place] # 0.5 10 0.0-0.8 10 [facility]: [address] [facility] Normal Eos # 0.4 10 0.0-0.5 10 [facility]: [address] [facility] Normal Baso # 0.0 10 0.0-0.2 10 [facility]: [address] [facility] 07/31/2021 Istat B-HCG Normal Istat B-HCG < 5.0 [facility]: [address] [facility] 07/31/2021 Istat Chem8+ Panel Low Istat HCT 35.0 % 38. 0-51.0 % [facility] [place]: 0 [facility] High Istat Glucose 123 mg/dL 70-105 mg/dL [facility] [place]: [address] [facility] Normal Istat Sodium 138 mEq/L 136-145 mEq/L [facility] [place]: [address] [facility] Normal Istat Potassium 4.3 mEq/L 3.5-5.1 mE q/L [facility] [place]: [address] [facility] Normal Istat Ca++ 4.6 mg/dL 4.5-5.3 mg/dL [facility]: [address] [facility] Normal Istat Chloride 105 mEq/L 98-109 mEq/ L [facility] [place]: [address] [facility] Normal Istat CO2 24.0 mm/L 23.0-27.0 mm/L [facility]: [address] [facility] Normal Istat BUN 14 mg/dL 8-26 mg/dL [facility] [place]: 0 [facility] Normal Istat Creatinine 0.7 mg/dL 0.6-1.3 m g/dL [facility] [place]: [address] [facility] 07/31/2021 [place] ENDOCERVIX No observation recorded. [facility]: 0 [facility] 07/31/2021 PT/INR High Prothrombin Time 23.2 secon ds 12.7-14.[address] [facility], [place]: [address] [place] [address] [address] [facility], [place]: [address] [place] [address] 07/31/2021 Partial Thromboplastin Time High Partial Thromboplastin Time 63.9 seconds 25.9-37.0 seconds [facility] nter: [address] [place] [address] 07/31/2021 Lactic Acid, Serum or Plasma Normal Lactic Acid Sepsis Protocol 1.4 mmol/L 0.4-2.0 mmol/L [facility]: [address] [place] [address] 07/31/2021 Hepatic Function Panel, Serum Normal AST/SG OT 17 U/L 7-37 U/L [facility] [place]: [address] [place] [address] Normal ALT/SGPT 24 U/L 12-78 U/L [facility]: [address] [place] [address] Normal Alkaline Phosphatase 117 U/L 45-117 U/L [facility], [place]: [address] [place] [address] Low Bilirubin,total 0.1 mg/dL 0.2-1.0 mg /dL [facility] [place]: [address] [place] [address] Normal Bilirubin,direct < 0.1 mg/dL 0.0-0.2 mg/dL [facility] [place]: [address] [place] [address] Normal Total Protein 6.4 gm/dL 6.4-8.2 gm/d L [facility] [place]: [address] [place] [address] Normal Albumin 3.2 gm/dL 3.2-5.2 gm/dL Drea l [facility]: [address] [place] [address] Low Albumin/globulin Ratio 1.0 1.2-2. 2 [facility] [place]: [address] [place] [address] 07/31/2021 Amylase, Serum or Plasma Normal Amylase 40 U/L 25-115 U/L [facility] [place]: [address] [place] [address] 07/31/2021 Lipase, Serum or Plasma Normal Lipase 91 U/L 7 3-393 U/L [facility], [place]: [address] [place], [place] [address] 07/31/2021 Chlamydia, GC & Trich Amp Normal Ch lamydia DNA Amplification negative negative Final [facility] nter: [address] [facility] Normal GC DNA Amplification negative negati ve [facility] [place]: [address] [facility] Normal Trichomonas Vaginalis (Amp) not dete cted negative [facility] [place]: [address] [facility] 07/31/2021 Influenza A/B RSV Covid Amp Normal Influenza a Amplification negative negative [facility] nter: [address] [facility] Normal Influenza B Amplification negative n egative [facility] [place]: [address] [facility] Normal RSV Amplification negative negative Final [facility]: [address] [facility] Normal Sars Covid-[address] [facility] [place]: [address] [facility] 07/31/2021 TSH, Serum or Plasma Normal Thyroid Stimulating Hormone 0.444 uIU/mL 0.358-3.740 uIU/mL [facility] nter: [address] [facility] 07/31/2021 T4, Free, Serum Low Free T4 0.66 NG/dL 0.76 -1.46 NG/dL [facility] [place]: 0 [facility] 07/31/2021 Type + Screen, Serum Normal Blood Type O posit socrates [facility] [place]: [address] [facility] Normal Ab Screen (Indirect Colin)vis negat socrates [facility] [place]: [address] [facility] 07/31/2021 Cardiovascular Assessment Panel, Serum Normal CPK Creatine Phosphokinase 67 U/L 26-192 U/L [facility]: [address] [facility] Normal CK-mb Value Mass < 1.0 NG/mL <3.6 NG /mL [facility] [place]: 0 [facility] Normal mb/CK Relative Index 1.49 < or =4 [facility] [place]: [facility] Normal Troponin I < 0.02 NG/mL < 0.10 NG/mL [facility] [place]: [address] [facility] 07/31/2021 Ethanol, Blood Normal Ethyl Alcohol (Ethano l) < 0.003 % 0.000- 0.010 % [facility] [place]: [address] [facility] 07/31/2021 Salicylate, Quantitative, Serum Low Salicylate Level < 1.7 mg/dL 5.0-30.0 mg/dL [facility] nter: [address] [facility] 07/31/2021 Acetaminophen, Serum Low Acetaminophen L evel < 2.0 ug/mL 10.0- 30.0 ug/mL [facility] [place]: [address] [facility] 07/31/2021 CBC W/ Auto Diff Normal White Blood Count 8.5 10 4.0-10.[address] [facility] [place]: [address] [facility] Normal Red Blood Count 4.04 10 4.00-5.[address] [facility] [place]: [address] [facility] Low Hemoglobin 9.7 g/dL 12.0-15.5 g/dL F inal [facility]: [address] [facility] Low Hematocrit 31.4 % 36.0-47.0 % [facility] [place]: 0 [facility] Low Mean Corpuscular Volume 77.7 fL 80.0 -96.[address] [facility] [place]: 0 [facility] Low Mean Corpuscular Hemoglobin 24.0 pg 27.0-33.[address] [facility] [place]: [address] [facility] Low Mean Corpuscular HGB Conc 30.9 g/dL 32.0-36.5 g/dL [facility] [place]: [address] [facility] High Red Cell Distribution Width 15.3 % 1 1.5-14.5 % [facility] [place]: 0 [facility] Normal Platelet Count, Automated 302 10 150 -[address] [facility] [place]: [address] [facility] Normal Neutrophils % 59.7 % 36.0-66.0 % Fin al [facility]: [address] [facility] Normal Lymph % 28.8 % 24.0-44.0 % Final [facility]: [address] [facility] Normal [place] % 5.9 % 2.0-8.0 % Final [facility]: [address] [facility] High Eos % 4.7 % 0.0-3.0 % [facility]: [address] [facility] Normal Baso % 0.5 % 0.0-1.0 % Final [facility]: [address] [facility] Normal Immature Granulocyte % 0.4 % 0-3.0 % [facility] [place]: [address] [facility] Normal Nucleated Red Blood Cell % 0.0 % 0- 0 % [facility] [place]: [address] [facility] Normal Neutrophils # 5.1 10 1.5-8.5 10 [facility]: [address] [facility] Normal Lymph # 2.4 10 1.5-5.0 10 [facility]: [address] [facility] Normal [place] # 0.5 10 0.0-0.8 10 [facility]: [address] [facility] Normal Eos # 0.4 10 0.0-0.5 10 [facility]: [address] [facility] Normal Baso # 0.0 10 0.0-0.2 10 [facility]: [address] [facility] 07/31/2021 Drug Screen, Urine Normal Amphetamines Leve l Urine negative negative [facility] [place]: [address] [facility] Normal Barbiturates Urine negative negative [facility] [place]: [address] [facility] Normal Benzodiazepines Urine negative negat socrates [facility] [place]: [address] [facility] Normal Cannabinoids Urine negative negative [facility] [place]: [address] [facility] Normal Cocaine Metabolite Urine negative ne gative [facility] [place]: [address] [facility] Normal Methadone Urine negative negative Fi [facility]: [address] [facility] High Opiates Urine positive negative Drea l [facility]: [address] [facility] Normal Phencyclidine Urine negative negativ e [facility] [place]: [address] [facility] 07/29/2021 CT + NG RNA, PCR, Unspecified Specimen Urine Normal Chlamydia Trachomatis RNA, Tma, Urogenital not detected not detected Final [facility]: [address], [place] Urine Normal Neisseria Gonorrhoeae RNA, Tma, Urogenital not detected not detected Final [facility] [address], [place] Urine Comment Final [facility]: [address], [place] 07/29/2021 Test, Urine Urine clean catch Hcg n egative [facility]: [address] [facility] [address], [place] 07/25/2021 Thrombosis Prof ([id number]) Normal Homocyste ine 6.5 umol/L . umol/L [facility] [place]: [address] [facility] Normal Factor VIII Activity 91 % . % F inal [facility]: [address] [facility] [facility] Normal Antithrombin Activity 127 % . % [facility] [place]: [address] [facility] Normal Prt C Activity(chromogenic) 160 % . % [facility] [place]: [address] [facility] Normal Protein S Antigen, Free 61 % . % [facility] [place]: [address] [facility] Normal Aptt 27.3 sec . sec [facility]: [address] [facility] [facility] Normal APTT 1:1 Skin Diver tnp sec . sec [facility]: [address] [facility] Normal APTT 1:1 Saline tnp sec . sec [facility] [place]: [address] [facility] Normal Lac Interpretation . Fin al [facility]: [address] [facility] Normal Act Prt C Resist W/fv Defic 2.[address] o . ratio [facility] [place]: [address] [facility] High Drvvt Screen Seconds 72.[address] [facility] [place]: [address] [facility] Normal Drvvt Confirm Seconds 45.[address] [facility] [place]: [address] [facility] High Drvvt Ratio 1.[address] [facility] [place]: [address] [facility] Normal Hexagonal Phospholipid Neutal [address] [facility] [place]: [address] [facility] Normal Anticardiolipin Ab, IgG <[address] gp [address] [facility] [place]: [address] [facility] Normal Anticardiolipin Ab, IgM [address] [facility] [place]: [address] [facility] Normal Beta-2 Glycoprotein I, IgG <[address] [facility] [place]: [address] [facility] Normal Beta-2 Glycoprotein I, IgM <[address] [facility] [place]: [address] [facility] Normal Beta-2 Glycoprotein I, IgA <[address] [facility] [place]: [address] [facility] Normal Factor II Gene Mutation Result tnp . [facility] [place]: [address] [facility] Normal Factor II Gene Interpretation tnp . [facility] [place]: [address] [facility] Normal Factor II Gene Methodology . [facility] [place]: [address] [facility] Normal Factor II Gene Comments . [facility] [place]: [address] [facility] 07/25/2021 Thrombosis Prof ([id number]) Normal Homocyste ine 6.5 umol/L . umol/L [facility] [place]: [address] [facility] Normal Factor VIII Activity 91 % . % F inal [facility]: [address] [facility] Normal Antithrombin Activity 127 % . % [facility] [place]: [address] [facility] Normal Prt C Activity(chromogenic) 160 % . % [facility] [place]: [address] [facility] Normal Protein S Antigen, Free 61 % . % [facility] [place]: [address] [facility] Normal Aptt 27.3 sec . sec [facility]: [address] [facility] Normal APTT 1:1 Skin Diver tnp sec . sec [facility]: [address] [facility] Normal APTT 1:1 Saline tnp sec . sec [facility] [place]: [address] [facility] Normal Lac Interpretation . Fin [facility]: [address] [facility] Normal Act Prt C Resist W/fv Defic 2.[address] o . ratio [facility] [place]: [address] [facility] High Drvvt Screen Seconds 72.[address] [facility] [place]: [address] [facility] Normal Drvvt Confirm Seconds 45.[address] [facility] [place]: [address] [facility] High Drvvt Ratio 1.[address] [facility] [place]: [address] [facility] Normal Hexagonal Phospholipid Neutal [address] [facility] [place]: [address] [facility] Normal Anticardiolipin Ab, IgG <[address] [facility] [place]: [address] [facility] Normal Anticardiolipin Ab, IgM [address] [facility] [place]: [address] [facility] Normal Beta-2 Glycoprotein I, IgG <[address] [facility] [place]: [address] [facility] Normal Beta-2 Glycoprotein I, IgM <[address] [facility] [place]: [address] [facility] Normal Beta-2 Glycoprotein I, IgA <[address] [facility] [place]: [address] [facility] Normal Factor II Gene Mutation Result tnp . [facility] [place]: [address] [facility] Normal Factor II Gene Interpretation tnp . [facility] [place]: [address] [facility] Normal Factor II Gene Methodology . [facility] [place]: [address] [facility] Normal Factor II Gene Comments . [facility] [place]: [address] [facility] 07/08/2021 Lactic Acid Level, Lactate Normal L actic Acid Level, Lactate 1.6 mmol/L 0.4-2.0 mmol/L [facility] nter: [address] [facility] 07/08/2021 UA W/ Reflex to Culture Normal Appearance, Urine Rfx hazy clear [facility] [place]: [address] [facility] Normal Color, Urine Rfx straw yellow [facility] [place]: [address] [facility] Normal pH,urine Rfx 8.0 units 5.0-9.[address] [facility] [place]: [address] [facility] Normal Specific [place] Ur Auto Rfx 1.014 1.002-1.035 [facility] [place]: [address] [facility] Normal Protein, Urine Auto Rfx negative mg/ dL negative mg/dL [facility] [place]: [address] [facility] Normal Glucose, Urine (UA) Auto Rfx n egative mg/dL negative mg/dL [facility] [place]: [address] [facility] Normal Ketone, Urine Auto Rfx negative mg/d L negative mg/dL [facility] [place]: [address] [facility] Normal Urobilinogen, Urine Auto Rfx 0.2 mg/ dL 0.0-2.0 mg/dL [facility] [place]: [address] [facility] Normal Bilirubin, Urine Auto Rfx negative n egative [facility] [place]: [address] [facility] Normal Nitrite, Urine Auto Rfx negative neg ative [facility] [place]: [address] [facility] Normal Leukocyte Esterase Ur Auto Rfx negat socrates negative [facility] [place]: [address] [facility] High Blood, Urine Blood Rfx 1+ negati ve [facility] [place]: [address] [facility] Normal WBC, Urine Auto Rfx 2 /hpf 0-3 /hpf [facility] [place]: [address] [facility] Normal RBC, Urine Auto Rfx 2 /hpf 0-3 /hpf [facility] [place]: [address] [facility] Normal Bacteria, Urine Auto Rfx negative ne gative [facility] [place]: [address] [facility] Normal Squam Epithelial Cell Ur Aurfx 5 /hp f 0-6 /hpf [facility] [place]: [address] [facility] Normal Hyaline Cast, Urine Auto Rfx 0 /lpf 0-1 /lpf [facility] [place]: [address] [facility] 07/08/2021 Cbc High White Blood Count 18.9 10 4.0-[address] [facility] [place]: [address] [facility] Low Red Blood Count 3.72 10 4.00-5.[address] [facility] [place]: [address] [facility] Low Hemoglobin 9.2 g/dL 12.0-15.5 g/dL F inal [facility]: [address] [facility] Low Hematocrit 29.3 % 36.0-47.0 % [facility], [place]: [address] [place] [address] Low Mean Corpuscular Volume 78.8 fL 80.0 -96.[address] [facility], [place]: [address] [place] [address] Low Mean Corpuscular Hemoglobin 24.7 pg 27.0-33.[address] [facility] [place]: [address] [place] [address] Low Mean Corpuscular HGB Conc 31.4 g/dL 32.0-36.5 g/dL [facility] [place]: [address] [place] [address] High Red Cell Distribution Width 15.6 % 1 1.5-14.5 % [facility] [place]: 0 [facility] Normal Platelet Count, Automated 391 10 150 -[address] [facility] [place]: 0 [facility] Normal Nucleated Red Blood Cell % 0.0 % 0- 0 % [facility] [place]: [address] [facility] 07/08/2021 BMP, Serum or Plasma High Glucose, Fastin g 115 mg/dL 70-100 mg/dL [facility] [place]: [address] [facility] Normal Blood Urea Nitrogen 10 mg/dL 7-18 mg /dL [facility] [place]: 0 [facility] Normal Creatinine for GFR 0.67 mg/dL 0.55-1 .30 mg/dL [facility] [place]: [address] [facility] Normal Glomerular Filtration Rate > 60.0 >[address] [facility] [place]: [address] [facility] Normal Sodium Level 142 mEq/L 136-145 mEq/L [facility] [place]: 0 [facility] D Potassium Serum 4.8 mEq/L 3.5-5.1 mE q/L [facility] [place]: [address] [place] [address] High Chloride Level 109 mEq/L 98-107 mEq/ L [facility] [place]: [address] [place] [address] Normal Carbon Dioxide Level 25 mEq/L 21-32 mEq/L [facility] [place]: [address] [place] [address] Normal Anion Gap 8 mEq/L 8-16 mEq/L [facility] [place]: [address] [place] [address] Normal Calcium Level 8.8 mg/dL 8.5-10.1 mg/ dL [facility] [place]: [address] [place] [address] 07/08/2021 Hepatic Function Panel, Serum Normal AST/SG OT 15 U/L 7-37 U/L [facility] [place]: [address] [place] [address] Normal ALT/SGPT 41 U/L 12-78 U/L [facility]: [address] [place] [address] Normal Alkaline Phosphatase 104 U/L 45-117 U/L [facility] [place]: [address] [place] [address] Low Bilirubin,total 0.1 mg/dL 0.2-1.0 mg /dL [facility] [place]: [address] [place] [address] Normal Bilirubin,direct < 0.1 mg/dL 0.0-0.2 mg/dL [facility] [place]: [address] [place] [address] Low Total Protein 6.1 gm/dL 6.4-8.2 gm/d L [facility] [place]: [address] [place] [address] Low Albumin 3.0 gm/dL 3.2-5.2 gm/dL Drea l [facility]: [address] [place] [address] Low Albumin/globulin Ratio 1.0 1.2-2. 2 [facility] [place]: [address] [place] [address] 07/07/2021 Istat ABG High Istat pH 7.473 units 7.350-7. [address] [facility] [place]: [address] [place] [address] Normal Istat pCO2 38.4 mmHg 35.0-45.[address] [facility] [place]: [address] [place] [address] Low Istat pO2 70.0 mmHg 80-105 mmHg [facility]: [address] [place] [address] High Istat TCO2 29.0 mmol/L 23.0-27.0 mmo l/L [facility] [place]: [address] [place] [address] High Istat HCO3 28.1 mmol/L 22.0-26.0 mmo l/L [facility] [place]: [address] [place] [address] High Istat Base Excess 5.0 mmol/L -2.0-3. 0 mmol/L [facility] [place]: [address] [place] [address] Normal Istat So2 95 % 95-98 % [facility]: [address] [place] [address] 07/07/2021 CBC W/ Auto Diff High White Blood Count 14.1 10 4.0-10.[address] [facility] [place]: [address] [place] [address] Normal Red Blood Count 4.23 10 4.00-5.[address] [facility] [place]: [address] [place] [address] Low Hemoglobin 10.3 g/dL 12.0-15.5 g/dL [facility] [place]: [address] [place] [address] Low Hematocrit 32.7 % 36.0-47.0 % [facility] [place]: [address] [place] [address] Low Mean Corpuscular Volume 77.3 fL 80.0 -96.[address] [facility] [place]: [address] [place] [address] Low Mean Corpuscular Hemoglobin 24.3 pg 27.0-33.[address] [facility] [place]: [address] [place] [address] Low Mean Corpuscular HGB Conc 31.5 g/dL 32.0-36.5 g/dL [facility], [place]: [address] [place] [address] High Red Cell Distribution Width 15.2 % 1 1.5-14.5 % Final [facility]: [address] [facility] Normal Platelet Count, Automated 374 10 150 -450 10 Final [facility]: [address] [facility] Normal Nucleated Red Blood Cell % 0.0 % 0- 0 % [facility] [place]: [address] [facility] 07/07/2021 Differential Panel, Blood Normal Neutrophil s 56 % 28-66 % Final [facility]: [address] [facility] Normal Lymphocytes 30 % 16-44 % Final [facility]: [address] [facility] High Monocytes 7 % 0-5 % Final [facility]: [address] [facility] High Eosinophils 5 % 0-3 % Final [facility]: [address] [facility] Normal Basophils 1 % 0-1 % Final [facility]: [address] [facility] Normal Atypical Lymph 1 % 0-5 % [facility] [place]: [address] [facility] Normal Hypochromasia 1+ Final [facility]: [address] [facility] Normal Anisocytosis 1+ Final [facility]: [address] [facility] Normal Microcytosis 1+ Final [facility]: [address] [facility] Normal Ovalocytes 1+ Final [facility]: [address] [facility] Normal Smudge Cells 1+ Final [facility]: [address] [facility] Normal Platelet Clumps small amt Fin [facility]: [address] [facility] 07/07/2021 Platelet Count, Estimate, Blood Normal Platelet Estimate normal normal Final [facility] nter: [address] [facility] 07/07/2021 Influenza A/B RSV Covid Amp Normal Influenza a Amplification negative negative Final [facility] nter: [address] [facility] Normal Influenza B Amplification negative n egative [facility] [place]: [address] [facility] Normal RSV Amplification negative negative Final [facility]: [address] [facility] Normal Sars Covid-[address] [facility] [place]: 0 [facility] 07/07/2021 Cardiovascular Assessment Panel, Serum Normal CPK Creatine Phosphokinase 45 U/L 26-192 U/L [facility]: [address] [place] [address] Normal CK-mb Value Mass < 1.0 NG/mL <3.6 NG /mL [facility] [place]: [address] [place] [address] Normal mb/CK Relative Index 2.22 < or =4 [facility] [place]: [address] [place] [address] Normal Troponin I < 0.02 NG/mL < 0.10 NG/mL [facility] [place]: 0 [facility] 07/07/2021 Hepatic Function Panel, Serum Normal AST/SG OT 15 U/L 7-37 U/L [facility] [place]: [address] [place] [address] Normal ALT/SGPT 30 U/L 12-78 U/L [facility]: 0 [facility] Normal Alkaline Phosphatase 111 U/L 45-117 U/L [facility] [place]: 0 [facility] Low Bilirubin,total 0.1 mg/dL 0.2-1.0 mg /dL [facility] [place]: 0 [facility] Normal Bilirubin,direct < 0.1 mg/dL 0.0-0.2 mg/dL [facility] [place]: 0 [facility] Normal Total Protein 6.6 gm/dL 6.4-8.2 gm/d L [facility] [place]: 0 [facility] Normal Albumin 3.2 gm/dL 3.2-5.2 gm/dL Drea l [facility]: [address] [place] [address] Low Albumin/globulin Ratio 0.9 1.2-2. 2 [facility] [place]: [address] [facility] 07/07/2021 BMP, Serum or Plasma Normal Glucose, Fastin g 97 mg/dL 70-100 mg/dL [facility] [place]: 83 0 [facility] Normal Blood Urea Nitrogen 9 mg/dL 7-18 mg/ dL [facility] [place]: [address] [facility] Normal Creatinine for GFR 0.68 mg/dL 0.55-1 .30 mg/dL [facility] [place]: [address] [facility] Normal Glomerular Filtration Rate > 60.0 >[address] [facility] [place]: [address] [facility] Normal Sodium Level 141 mEq/L 136-145 mEq/L [facility] [place]: [address] [facility] Low Potassium Serum 3.4 mEq/L 3.5-5.1 mE q/L [facility] [place]: [address] [facility] Normal Chloride Level 105 mEq/L 98-107 mEq/ L [facility] [place]: [address] [facility] Normal Carbon Dioxide Level 28 mEq/L 21-32 mEq/L [facility] [place]: [address] [facility] Normal Anion Gap 8 mEq/L 8-16 mEq/L [facility] [place]: [address] [facility] Normal Calcium Level 8.8 mg/dL 8.5-10.1 mg/ dL [facility] [place]: [address] [facility] 07/07/2021 Drug Screen, Urine Normal Amphetamines Leve l Urine negative negative [facility] [place]: 83 0 [facility] High Barbiturates Urine positive negative [facility] [place]: [address] [facility] High Benzodiazepines Urine positive negat socrates [facility] [place]: [address] [facility] Normal Cannabinoids Urine negative negative [facility] [place]: [address] [facility] Normal Cocaine Metabolite Urine negative ne gative [facility] [place]: [address] [facility] Normal Methadone Urine negative negative Fi nal [facility]: [address] [facility] High Opiates Urine positive negative Drea l [facility]: [address] [facility] Normal Phencyclidine Urine negative negativ e [facility] [place]: [address] [facility] 07/07/2021 ESR (Erythrocyte Sedimentation Rate), Blood Hig h Erythrocyte Sedimentation Rate 52 mm/HR 0-20 mm/HR [facility] Center: [address] [facility] 07/07/2021 D-dimer, Quant, Plasma Normal D-dimer Quant 333.30 NG/mL <500 NG/mL Final [facility]: 83 0 [facility] 07/07/2021 Lactic Acid, Serum or Plasma Panic High Lactic Acid Sepsis Protocol 4.1 mmol/L 0.4-2.0 mmol/L Final [facility] Center: [address] [facility] 07/07/2021 Respiratory Virus Panel [id number] No observ ation recorded. [facility]: [address] [facility] 07/07/2021 Magnesium, Serum or Plasma Normal Magnesium Level 1.8 mg/dL 1.8-2.4 mg/dL Final [facility]: [address] [facility] 07/07/2021 Pro BNP (Pro B-type Natriuretic Peptide), Serum or Plasma Normal Nt-pro BNP 30 pg/mL <125 pg/mL [facility]: [address] [facility] 07/07/2021 TIBC (Total Iron-binding Capacity), Serum Low Iron (Fe) 25 ug/dL 50-170 ug/dL [facility] nter: 0 [facility] Normal Total Iron Binding Capacity 376 ug/d L 250-450 ug/dL [facility] [place]: 0 [facility] Low Percent Saturation 6.6 % 13.2-45.0 % [facility] [place]: [address] [facility] 07/07/2021 C3 (Complement), Serum or Plasma Normal Complement C3 166 mg/dL 90-180 mg/dL [facility] nter: [address] [facility] 07/07/2021 C4 (Complement), Serum or Plasma High Com plement C4 46 mg/dL 10-40 mg/dL [facility] [place]: 83 0 [facility] 07/07/2021 Vitamin B12, Serum Normal Vitamin B12 Level 850 pg/mL 247-911 pg/mL [facility] [place]: 83 0 [facility] 07/07/2021 Folate, Serum Normal Folate 10.6 NG/mL >5.4 NG /mL [facility] [place]: [address] [facility] 07/07/2021 Ferritin, Serum or Plasma Normal Ferritin 19 NG/mL 8-252 NG/mL [facility] [place]: [address] [facility] 07/07/2021 C Reactive Protein, QN, Serum or Plasma High C Reactive Protein Quantitativ 3.58 mg/dL 0.00-0.30 mg/dL [facility]: [address] [facility] 07/07/2021 Glucose, Fingerstick, Blood High Bedside Glucose 178 mg/dL 70- 105 mg/dL [facility] [place]: 83 0 [facility] 07/07/2021 Gas Panel, Arterial Blood High ABG pH (Ar terial) 7.468 units 7.350-7.[address] [facility] [place]: 83 0 [facility] Low ABG Partial Pressure CO2 32.8 mmHg 3 5.0-45.[address] [facility] [place]: [address] [facility] Low ABG Partial Pressure O2 61.5 mmHg 75 .0-100.[address] [facility] [place]: [address] [facility] Normal ABG Total CO2 24.2 mEq/L 22.0-29.0 m Eq/L [facility] [place]: [address] [facility] Normal Abg Hco3 23.2 mEq/L 22.0-26.0 mEq/L [facility] [place]: [address] [facility] Normal ABG Base Excess 0.0 -2.0-2.0 Drea l [facility]: [address] [facility] Normal ABG Standard HCO3 24.4 mEq/L 22.0-26 .0 mEq/L [facility] [place]: 0 [facility] Low ABG O2 Saturation 91.9 % 95.0-99.0 % [facility] [place]: [address] [facility] 07/07/2021 Lactic Acid, Serum or Plasma Panic High Lactic Acid Sepsis Protocol 4.8 mmol/L 0.4-2.0 mmol/L [facility]: [address] [place] [address] 07/07/2021 Procalcitonin, Serum Normal Procalcitonin 0.09 [facility] [place]: [address] [place] [address] 07/07/2021 Choriogonadotropin, Quant, Serum or Plasma Norm al HCG, Serum Quantitative < 1.0 mIU/mL [facility]: [address] [place] [address] 07/07/2021 Troponin I, Blood Normal Troponin I < 0.02 NG/mL < 0.10 NG/mL [facility] [place]: [address] [place] [address] 07/07/2021 TSH, Serum or Plasma Normal Thyroid Stimulating Hormone 0.696 uIU/mL 0.358-3.740 uIU/mL [facility] nter: [address] [place] [address] 07/07/2021 T4, Free, Serum Low Free T4 0.65 NG/dL 0.76 -1.46 NG/dL [facility] [place]: [address] [place] [address] 07/07/2021 T3, Total, Serum Low Total T3 49.3 NG/d L 60.0-181.0 NG/dL [facility] [place]: [address] [place] [address] 07/07/2021 Sickle Cell Screen, Qual, Light Microscopy, Blood Normal Sickle Cell Screen negative negative [facility]: [address] [place] [address] 07/07/2021 Lactic Acid Level, Lactate Panic High Lactic Acid Level, Lactate 4.3 mmol/L 0.4-2.0 mmol/L [facility]: [address] [place] [address] 07/07/2021 Lactic Acid, Serum or Plasma Panic High Lactic Acid Sepsis Protocol 3.7 mmol/L 0.4-2.0 mmol/L [facility]: [address] [place] [address] 07/07/2021 Periph Smear for Path Review Normal Slide R theresa report [facility] [place]: [address] [place] [address] Normal Source peripheral smear [facility] [place]: [address] [place] [address] Normal Reason for Review atypical lymphs [facility] [place]: [address] [facility] 07/07/2021 Mrsa Screen, PCR Normal MRSA PCR Screen no t detected negative [facility] [place]: [address] [facility] 07/07/2021 Culture, Blood BLOOD No observation recorded. [facility]: [address] [facility] 07/07/2021 Pathology Request for Service Periph eral Smear-path Review [facility] [place]: [address] 0 [facility] 07/07/2021 LDH Lactate Dehydrogenase Normal LD H Lactate Dehydrogenase 245 U/L 84-246 U/L [facility] nter: [address] [facility] 07/07/2021 Acetaminophen, Serum Low Acetaminophen L evel 8.7 ug/mL 10.0- 30.0 ug/mL [facility] [place]: 83 0 [facility] 07/07/2021 Culture, Blood BLOOD No observation recorded. [facility]: [address] [facility] 07/07/2021 Haptoglobin Normal Haptoglobin 208 mg/dL 33-27 8 mg/dL [facility] [place]: [address] [facility] 07/07/2021 Complement C2, Serum Normal Complement C2 2.8 mg/dL 1.4-3.3 mg/dL [facility] [place]: [address] 0 [facility] 07/02/2021 SARS CoV 2 RNA (COVID-19), QL, [employer]-PCR, Respiratory Specim en Covid-19 PCR negative negative [facility]): 4 [facility] 07/02/2021 Lactic Acid La 1.1 mmol/L 0.4-2.0 mmo l/L [facility]): 4 [facility] 07/02/2021 CMP, Serum or Plasma Glu 100 mg/dL 74- 106 mg/dL [facility]): 4 [facility] Bun 9 mg/dL 7-18 mg/dL [facility]): 4 [facility] Cre 0.67 mg/dL 0.6-1.0 mg/dL [facility]): 4 [facility] Na 141 mmol/L 136-145 mmol/L [facility] ([facility]): 4 [facility] Low K 3.3 mmol/L 3.5-5.1 mmol/L [facility] ([facility]): 4 [facility] Cl 103 mmol/L 98-107 mmol/L [facility] ([facility]): 4 [facility] Co2 27 mmol/L 21-32 mmol/L [facility] ([facility]): 4 [facility] Ca 8.9 mg/dL 8.5-10.1 mg/dL [facility] ([facility]): 4 [facility] Gap 11.0 mmol/L 5-12 mmol/L [facility] ([facility]): 4 [facility] Gfr >90 mL/min [facility] ([facility]): 4 [facility] Low Ast 9 U/L 15-37 U/L Final [facility] ([facility]): 4 [facility] Alt 23 U/L 12-78 U/L Final [facility] ([facility]): 4 [facility] High Alk 119 U/L 46-116 U/L [facility] ([facility]): 4 [facility] Low Tbili 0.1 mg/dL 0.2-1.0 mg/dL [facility] ([facility]): 4 [facility] Tp 6.9 g/dL 6.4-8.2 g/dL Final [facility] ([facility]): 4 [facility] Low Alb 3.1 gm/dL 3.4-5.0 gm/dL [facility] ([facility]): 4 [facility] 07/02/2021 Bnp Bnp 28 pg/mL 0-125 pg/mL [facility] ([facility]): 4 [facility] 07/02/2021 Urine Microscopic High Urbc tntc /hpf 0-3 /h pf [facility] ([facility]): 4 [facility] High UWBC Reflex 0-2 /hpf 0-5 /hpf [facility] ([facility]): 4 [facility] Uec 1+ /hpf 0 /hpf Final [facility] ([facility]): 4 [facility] High Ub Reflex 1+ none seen Final [facility] ([facility]): 4 [facility] Uyeast present Final [facility] ([facility]): 4 [facility] 07/02/2021 Urinalysis Complete, Reflex Culture Ucol yellow [facility] ([facility]): 4 [facility] Uapp slighty cloudy Final [facility] ([facility]): 4 [facility] Ugl negative mg/dL negative mg/dL F [facility] ([facility]): 4 [facility] Ubil negative negative [facility] ([facility]): 4 [facility] Uket negative mg/dL negative mg/dL F [facility] ([facility]): 4 [facility] Sgu 1.010 1.005-1.030 [facility] ([facility]): 4 [facility] High Ubl Reflex 3+(large) negative [facility] ([facility]): 4 [facility] Iymi 6.5 5.0-9.0 Final [facility] ([facility]): 4 [facility] Upro Reflex negative mg/dL negative mg/dL [facility] ([facility]): 4 [facility] Uuro normal(0.2-1) mg/dL 0-1 mg/dL F [facility] ([facility]): 4 [facility] Unit Reflex negative negative [facility] ([facility]): 4 [facility] Ule Reflex negative negative [facility] ([facility]): 4 [facility] 07/02/2021 Magnesium, Serum or Plasma mg 2.0 mg/ dL 1.8-2.4 mg/dL [facility] ([facility]): 4 [facility] 07/02/2021 Troponin-high Sensitivity Trophs 5.4 NG /L 0-60.4 NG/L [facility] ([facility]): 4 [facility] 07/02/2021 Troponin-high Sensitivity Trophs 4.6 NG /L 0-60.4 NG/L [facility] ([facility]): 4 [facility] 07/02/2021 TORCH Respiratory Panel Tadeno not detected detected not detected [facility] ([facility]): [address], [place] [id number] not detected detected not detected [facility] ([facility]): 4 Hu , [place] Tcorohku1 not detected detected not detected [facility] ([facility]): 4 Hu , [place] Dpailum41 not detected detected not detected [facility] ([facility]): 4 Hu , [place] [id number] not detected detected not detected [facility] ([facility]): 4 Hu , [place] Tcorosars2 not detected detected not detected [facility] ([facility]): 4 [facility], [place] Thummet not detected detected not de tected [facility] ([facility]): 4 [facility], [place] Thumrhino detected detected not dete cted [facility] ([facility]): 4 [facility] Tflua not detected detected not dete cted [facility] ([facility]): 4 [facility] Tflub not detected detected not dete cted [facility] ([facility]): 4 [facility], [place] Tparaflu1 not detected detected not detected [facility] ([facility]): 4 [facility] Tparaflu2 not detected detected not detected [facility] ([facility]): 4 [facility], [place] Tparaflu3 not detected detected not detected [facility] ([facility]): 4 [facility], [place] Tparaflu4 not detected detected not detected [facility] ([facility]): 4 [facility] Trsv not detected detected not detec jina [facility] ([facility]): 4 [facility], [place] Tbordpara not detected detected not detected [facility] ([facility]): 4 [facility], [place] Tbord not detected detected not dete cted [facility] ([facility]): 4 [facility] Tchlamypne not detected detected not detected [facility] ([facility]): 4 Hu , [place] Tmycpne not detected detected not de tected [facility] ([facility]): 4 [facility] 07/02/2021 CBC W/ Auto Diff Wbc 8.3 K/mm3 4.0-10. 0 K/mm3 Final [facility] ([facility]): 4 [facility] Rbc 4.10 M/mm3 4.00-5.50 M/mm3 [facility] ([facility]): 4 [facility] Low Hgb 10.2 gm/dL 12.0-16.0 gm/dL [facility] ([facility]): 4 [facility] Low Hct 30.9 % 36.0-48.8 % Final [facility] ([facility]): 4 [facility] Low Mcv 75.4 fL 80-96 fL Final [facility] ([facility]): 4 [facility] Low Mch 24.9 pg 27.0-31.0 pg Final [facility] ([facility]): 4 [facility] Mchc 33.0 g/dL 32.0-36.0 g/dL Final [facility] ([facility]): 4 [facility] High Rdw 14.8 % 10.0-14.5 % Final [facility] ([facility]): 4 [facility] Plt 336 K/mm3 172-450 K/mm3 Final [facility] ([facility]): 4 [facility] Mpv 10.2 fL 9.0-13.0 fL Final [facility] ([facility]): 4 [facility] High Gr% 88.9 % 50-80.0 % [facility] 4 [facility] High Ig% 0.4 % 0.0-0.2 % [facility] 4 [facility] Low Ly% 8.8 % 25.0-50.0 % Final [facility] ([facility]): 4 [facility] Low Mo% 1.8 % 2.0-10.0 % Final [facility] ([facility]): 4 [facility] Eo% 0.0 % 0-5.0 % [facility]): 4 [facility] Ba% 0.1 % 0.0-2.0 % Final [facility] ([facility]): 4 [facility] Gr# 7.4 K/mm3 2.0-8.00 K/mm3 [facility] ([facility]): 4 [facility] Ig# 0.0 K/mm3 0.0-0.2 K/mm3 [facility] ([facility]): 4 [facility] Low Ly# 0.7 K/mm3 1.0-5.0 K/mm3 [facility] ([facility]): 4 [facility] Mo# 0.2 K/mm3 0.10-1.20 K/mm3 [facility] ([facility]): 4 [facility] Eo# 0.0 K/mm3 0.0-0.5 K/mm3 [facility] ([facility]): 4 [facility] Ba# 0.0 K/mm3 0.0-0.2 K/mm3 [facility] ([facility]): 4 [facility] 07/02/2021 Gas Panel, Venous Blood High Vph 7.44 7.3 1-7.41 [facility] ([facility]): 4 [facility] Low Vpco2 35.1 mmHg 41-51 mmHg [facility] ([facility]): 4 [facility] High Vpo2 89 mmHg 35-42 mmHg [facility] ([facility]): 4 [facility] High Vo2 Sat 97.3 % 68-77 % [facility] ([facility]): 4 [facility] Low Vhco3 23.5 mEq/L 24.0-25.0 mEq/L [facility] ([facility]): 4 [facility] Vbe 0.1 -3.0-3.0 [facility] ([facility]): 4 [facility] Vctco2 24.6 mmol/L 23.0-32.0 mmol/L [facility] ([facility]): 4 [facility] 07/02/2021 CMP, Serum or Plasma High Glu 164 mg/dL 74- 106 mg/dL [facility] ([facility]): 4 [facility] Low Bun 5 mg/dL 7-18 mg/dL [facility] ([facility]): 4 [facility] Cre 0.72 mg/dL 0.6-1.0 mg/dL [facility] ([facility]): 4 [facility] Na 141 mmol/L 136-145 mmol/L [facility] ([facility]): 4 [facility] K 3.7 mmol/L 3.5-5.1 mmol/L [facility] ([facility]): 4 [facility] Cl 104 mmol/L 98-107 mmol/L [facility] ([facility]): 4 [facility] Co2 25 mmol/L 21-32 mmol/L [facility] ([facility]): 4 [facility] Ca 8.7 mg/dL 8.5-10.1 mg/dL [facility] ([facility]): 4 [facility] Gap 12.0 mmol/L 5-12 mmol/L [facility] ([facility]): 4 [facility] Gfr >90 mL/min [facility] ([facility]): 4 [facility] Low Ast 14 U/L 15-37 U/L Final [facility]): 4 [facility] Alt 31 U/L 12-78 U/L Final [facility] ([facility]): 4 [facility] Alk 113 U/L 46-116 U/L [facility] ([facility]): 4 [facility] Low Tbili < 0.1 mg/dL 0.2-1.0 mg/dL Drea l [facility] ([facility]): 4 [facility] Tp 6.9 g/dL 6.4-8.2 g/dL [facility] ([facility]): 4 [facility] Low Alb 3.0 gm/dL 3.4-5.0 gm/dL [facility] ([facility]): 4 [facility] 07/02/2021 C Reactive Protein High Crp 55.8 mg/L 0.0-3 .0 mg/L [facility] ([facility]): 4 [facility] 04/02/2021 CBC W/ Auto Diff High White Blood Count 13.0 10 4.0-10.[address] [facility], [place]: [address] [facility] Normal Red Blood Count 4.29 10 4.00-5.[address] [facility], [place]: [address] [facility] Low Hemoglobin 10.4 g/dL 12.0-15.5 g/dL [facility], [place]: [address] [place] [address] Low Hematocrit 33.8 % 36.0-47.0 % [facility], [place]: [address] [place] [address] Low Mean Corpuscular Volume 78.8 fL 80.0 -96.[address] [facility], [place]: [address] [place] [address] Low Mean Corpuscular Hemoglobin 24.2 pg 27.0-33.[address] [facility], [place]: [address] [place] [address] Low Mean Corpuscular HGB Conc 30.8 g/dL 32.0-36.5 g/dL [facility], [place]: [address] [place] [address] High Red Cell Distribution Width 15.7 % 1 1.5-14.5 % [facility], [place]: [address] [place] [address] Normal Platelet Count, Automated 361 10 150 -[address] [facility], [place]: 0 [facility] Normal Neutrophils % 62.9 % 36.0-66.0 % Fin [facility]: [address] [facility] Normal Lymph % 28.4 % 24.0-44.0 % Final [facility]: [address] [facility] Normal [place] % 5.2 % 2.0-8.0 % [facility]: [address] [facility] Normal Eos % 2.5 % 0.0-3.0 % [facility]: 0 [facility] Normal Baso % 0.5 % 0.0-1.0 % [facility]: [address] [facility] Normal Immature Granulocyte % 0.5 % 0-3.0 % [facility], [place]: 0 [facility] Normal Nucleated Red Blood Cell % 0.0 % 0- 0 % [facility], [place]: [address] [place] [address] Normal Neutrophils # 8.2 10 1.5-8.5 10 [facility]: 0 [facility] Normal Lymph # 3.7 10 1.5-5.0 10 [facility]: [address] [place] [address] Normal [place] # 0.7 10 0.0-0.8 10 [facility]: [address] [place] [address] Normal Eos # 0.3 10 0.0-0.5 10 [facility]: [address] [place] [address] Normal Baso # 0.1 10 0.0-0.2 10 [facility]: [address] [place] [address] 04/02/2021 PT/INR Normal Prothrombin Time 13.6 secon ds 12.5-14.[address] [facility], [place]: [address] [place] [address] [facility], [place]: [address] [place] [address] 04/02/2021 Partial Thromboplastin Time Normal Partial Thromboplastin Time 34.5 seconds 24.2-38.5 seconds [facility] nter: [address] [place] [address] 04/02/2021 Cardiovascular Assessment Panel, Serum Normal CPK Creatine Phosphokinase 155 U/L 26-192 U/L [facility]: [address] [place] [address] Normal CK-mb Value Mass < 1.0 NG/mL <3.6 NG /mL [facility], [place]: [address] [place] [address] Normal mb/CK Relative Index 0.65 < or =4 [facility], [place]: [address] [place] [address] Normal Troponin I < 0.02 NG/mL < 0.10 NG/mL [facility], [place]: [address] [place] [address] 04/02/2021 Hepatic Function Panel, Serum Normal AST/SG OT 12 U/L 7-37 U/L [facility], [place]: [address] [place] [address] Normal ALT/SGPT 27 U/L 12-78 U/L [facility]: [address] [place] [address] High Alkaline Phosphatase 132 U/L 45-117 U/L [facility], [place]: [address] [place] [address] Low Bilirubin,total 0.1 mg/dL 0.2-1.0 mg /dL [facility], [place]: [address] [place] [address] Normal Bilirubin,direct < 0.1 mg/dL 0.0-0.2 mg/dL [facility], [place]: [address] [place] [address] Normal Total Protein 6.4 gm/dL 6.4-8.2 gm/d L [facility], [place]: [address] [place] [address] Normal Albumin 3.2 gm/dL 3.2-5.2 gm/dL Drea l [facility]: [address] [place] [address] Low Albumin/globulin Ratio 1.0 1.2-2. 2 [facility], [place]: [address] [place] [address] 04/02/2021 C-reactive Protein, Qualitative, Serum Normal Glucose, Fasting 88 mg/dL 70-100 mg/dL [facility] nter: [address] [place] [address] Normal Blood Urea Nitrogen 7 mg/dL 7-18 mg/ dL [facility], [place]: [address] [place] [address] Normal Creatinine for GFR 0.71 mg/dL 0.55-1 .30 mg/dL [facility], [place]: [address] [place] [address] Normal Glomerular Filtration Rate > 60.0 >[address] [facility], [place]: [address] [place] [address] Normal Sodium Level 142 mEq/L 136-145 mEq/L [facility], [place]: [address] [place] [address] Normal Potassium Serum 3.6 mEq/L 3.5-5.1 mE q/L [facility], [place]: [address] [place] [address] High Chloride Level 111 mEq/L 98-107 mEq/ L [facility], [place]: [address] [place] [address] Normal Carbon Dioxide Level 28 mEq/L 21-32 mEq/L [facility], [place]: [address] [place] [address] Low Anion Gap 3 mEq/L 8-16 mEq/L [facility], [place]: [address] [facility] Low Calcium Level 8.3 mg/dL 8.5-10.1 mg/ dL [facility], [place]: [address] [facility] 04/02/2021 Amylase, Serum or Plasma Normal Amylase 30 U/L 25-115 U/L [facility], [place]: [address] [facility] 04/02/2021 Lipase, Serum or Plasma Low Lipase 45 U/L 7 3-393 U/L [facility], [place]: [address] [facility] 04/02/2021 Ethanol, Blood Normal Ethyl Alcohol (Ethano l) < 0.003 % 0.000- 0.010 % [facility], [place]: [address] [facility] 04/02/2021 Lactic Acid, Serum or Plasma Normal Lactic Acid Sepsis Protocol 1.6 mmol/L 0.4-2.0 mmol/L [facility]: [address] [facility] 04/02/2021 Type + Screen, Serum Normal Blood Type O posit socrates [facility], [place]: [address] [facility] Normal Ab Screen (Indirect Colin)vis negat socrates [facility], [place]: [address] [facility] 04/02/2021 UA W/ Reflex to Culture Normal Appearance, Urine Rfx clear clear [facility], [place]: [address] [facility] Normal Color, Urine Rfx yellow yellow [facility], [place]: [address] [facility] Normal pH,urine Rfx 6.0 units 5.0-9.[address] [facility], [place]: [address] [facility] Normal Specific [place] Ur Auto Rfx 1.018 1.002-1.035 [facility], [place]: [address] [facility] Normal Protein, Urine Auto Rfx negative mg/ dL negative mg/dL [facility], [place]: [address] [facility] Normal Glucose, Urine (UA) Auto Rfx n egative mg/dL negative mg/dL [facility], [place]: [address] [facility] Normal Ketone, Urine Auto Rfx negative mg/d L negative mg/dL [facility], [place]: [address] [facility] Normal Urobilinogen, Urine Auto Rfx 0.2 mg/ dL 0.0-2.0 mg/dL [facility], [place]: [address] [facility] Normal Bilirubin, Urine Auto Rfx negative n egative [facility], [place]: [address] [facility] Normal Nitrite, Urine Auto Rfx negative neg ative [facility], [place]: [address] [facility] Normal Leukocyte Esterase Ur Auto Rfx negat socrates negative [facility], [place]: [address] [facility] Normal Blood, Urine Blood Rfx negative nega tive [facility], [place]: [address] [facility] Normal WBC, Urine Auto Rfx 0 /hpf 0-3 /hpf [facility], [place]: [address] [facility] Normal RBC, Urine Auto Rfx 0 /hpf 0-3 /hpf [facility], [place]: [address] [facility] Normal Bacteria, Urine Auto Rfx negative ne gative [facility], [place]: [address] [facility] Normal Squam Epithelial Cell Ur Aurfx 3 /hp f 0-6 /hpf [facility], [place]: [address] [facility] Normal Mucus, Urine Rfx small negative Fin al [facility]: [address] [facility] Normal Hyaline Cast, Urine Auto Rfx 0 /lpf 0-1 /lpf [facility], [place]: [address] [facility] 04/02/2021 Drug Screen, Urine Normal Amphetamines Leve l Urine negative negative [facility], [place]: [address] [facility] High Barbiturates Urine positive negative [facility], [place]: [address] [facility] Normal Benzodiazepines Urine negative negat socrates [facility], [place]: [address] [facility] High Cannabinoids Urine positive negative [facility], [place]: [address] [facility] Normal Cocaine Metabolite Urine negative ne gative [facility], [place]: [address] [facility] Normal Methadone Urine negative negative Fi nal [facility]: [address] [facility] Normal Opiates Urine negative negative Drea l [facility]: [address] [facility] Normal Phencyclidine Urine negative negativ e [facility], [place]: [address] [facility] 03/07/2021 CBC W/ Auto Diff Blood venous No observation re corded. [facility]: [address] [facility] [address], [place] 03/07/2021 TSH + Free T4, Serum Blood venous No observa tion recorded. 03/07/2021 CMP, Serum or Plasma Blood venous No observa tion recorded. 03/07/2021 Lipid Panel, Serum Blood venous No observation recorded. [facility]: [address] [facility] [address], [place] 03/07/2021 HbA1C (Hemoglobin a1C), Blood Blood venous No observation recorded. [facility]: [address] [facility] [address], [place] 03/07/2021 Vitamin D, 25-Hydroxy, Total, Serum Blood venous No observation recorded. [facility]: [address] [facility] [address], [place] 03/07/2021 Lupus Anticoagulant, Plasma Blood venous No observation recorded. [facility]: [address] [facility] [address], [place] 03/05/2021 Levetiracetam, Serum Normal Levetiracetam ( Keppra) 10.2 ug/mL 10.0-40.0 ug/mL [facility], [place]: [address] [facility] 02/20/2021 Istat Chem8+ Panel Low Istat HCT 37.0 % 38. 0-51.0 % [facility], [place]: [address] [facility] Normal Istat Glucose 94 mg/dL 70-105 mg/dL [facility], [place]: [address] [facility] Normal Istat Sodium 140 mEq/L 136-145 mEq/L [facility], [place]: [address] [facility] Normal Istat Potassium 4.3 mEq/L 3.5-5.1 mE q/L [facility], [place]: [address] [facility] Normal Istat Ca++ 5.0 mg/dL 4.5-5.3 mg/dL F inal [facility]: [address] [facility] Normal Istat Chloride 107 mEq/L 98-109 mEq/ L [facility], [place]: [address] [facility] Normal Istat CO2 26.0 mm/L 23.0-27.0 mm/L [facility]: [address] [facility] Normal Istat BUN 9 mg/dL 8-26 mg/dL [facility], [place]: [address] [place] [address] Low Istat Creatinine 0.5 mg/dL 0.6-1.3 m g/dL [facility], [place]: [address] [place] [address] 02/20/2021 CBC W/ Auto Diff High White Blood Count 12.7 10 4.0-10.[address] [facility], [place]: [address] [place] [address] Normal Red Blood Count 4.60 10 4.00-5.[address] [facility], [place]: [address] [place] [address] Low Hemoglobin 11.4 g/dL 12.0-15.5 g/dL [facility], [place]: 0 [facility] Normal Hematocrit 37.4 % 36.0-47.0 % [facility], [place]: [address] [place] [address] Normal Mean Corpuscular Volume 81.3 fL 80.0 -96.[address] [facility], [place]: [address] [place] [address] Low Mean Corpuscular Hemoglobin 24.8 pg 27.0-33.[address] [facility], [place]: [address] [place] [address] Low Mean Corpuscular HGB Conc 30.5 g/dL 32.0-36.5 g/dL [facility], [place]: [address] [place] [address] High Red Cell Distribution Width 15.2 % 1 1.5-14.5 % [facility], [place]: [address] [place] [address] Normal Platelet Count, Automated 303 10 150 -[address] [facility], [place]: 0 [facility] Normal Neutrophils % 63.4 % 36.0-66.0 % [facility]: 0 [facility] Normal Lymph % 28.5 % 24.0-44.0 % Final [facility]: [address] [facility] Normal [place] % 5.6 % 2.0-8.0 % [facility]: [address] [facility] Normal Eos % 1.7 % 0.0-3.0 % [facility]: [address] [facility] Normal Baso % 0.4 % 0.0-1.0 % [facility]: [address] [place] [address] Normal Immature Granulocyte % 0.4 % 0-3.0 % [facility], [place]: [address] [place] [address] Normal Nucleated Red Blood Cell % 0.0 % 0- 0 % [facility], [place]: [address] [place] [address] Normal Neutrophils # 8.1 10 1.5-8.5 10 [facility]: [address] [place] [address] Normal Lymph # 3.6 10 1.5-5.0 10 [facility]: [address] [facility] Normal [place] # 0.7 10 0.0-0.8 10 [facility]: 0 [facility] Normal Eos # 0.2 10 0.0-0.5 10 [facility]: 0 [facility] Normal Baso # 0.1 10 0.0-0.2 10 [facility]: 0 [facility] 02/20/2021 ESR (Erythrocyte Sedimentation Rate), Blood Hig h Erythrocyte Sedimentation Rate 36 mm/HR 0-20 mm/HR [facility]: [address] [place] [address] 02/20/2021 Hepatic Function Panel, Serum Normal AST/SG OT 12 U/L 7-37 U/L [facility], [place]: 0 [facility] Normal ALT/SGPT 45 U/L 12-78 U/L [facility]: [address] [place] [address] High Alkaline Phosphatase 166 U/L 45-117 U/L [facility], [place]: [address] [place] [address] Low Bilirubin,total < 0.1 mg/dL 0.2-1.0 mg/dL [facility], [place]: [address] [place] [address] Normal Bilirubin,direct < 0.1 mg/dL 0.0-0.2 mg/dL [facility], [place]: [address] [place] [address] Normal Total Protein 6.6 gm/dL 6.4-8.2 gm/d L [facility], [place]: [address] [place] [address] Normal Albumin 3.4 gm/dL 3.2-5.2 gm/dL Drea l [facility]: [address] [place] [address] Low Albumin/globulin Ratio 1.1 1.2-2. 2 [facility], [place]: [address] [place] [address] 02/20/2021 C Reactive Protein, QN, Serum or Plasma High C Reactive Protein Quantitativ 2.71 mg/dL 0.00-0.30 mg/dL [facility]: [address] [place] [address] 01/05/2021 Urinalysis, Dipstick, Auto No observation recorded. 01/05/2021 Test, Urine No observation kesha rded. 12/06/2020 Cbc High White Blood Count 12.8 10 4.0-[address] [facility], [place]: [address] [place] [address] Normal Red Blood Count 4.47 10 4.00-5.[address] [facility], [place]: [address] [place] [address] Low Hemoglobin 11.4 g/dL 12.0-15.5 g/dL [facility], [place]: [address] [place] [address] Normal Hematocrit 36.5 % 36.0-47.0 % [facility], [place]: [address] [place] [address] Normal Mean Corpuscular Volume 81.7 fL 80.0 -96.[address] [facility], [place]: [address] [place] [address] Low Mean Corpuscular Hemoglobin 25.5 pg 27.0-33.[address] [facility], [place]: [address] [place] [address] Low Mean Corpuscular HGB Conc 31.2 g/dL 32.0-36.5 g/dL [facility], [place]: [address] [facility] Normal Red Cell Distribution Width 13.8 % 1 1.5-14.5 % [facility], [place]: [address] [facility] Normal Platelet Count, Automated 350 10 150 -[address] [facility], [place]: [address] [facility] Normal Nucleated Red Blood Cell % 0.0 % 0- 0 % [facility], [place]: [address] [facility] 12/05/2020 CBC W/ Auto Diff High White Blood Count 16.0 10 4.0-10.[address] [facility], [place]: [address] [facility] Normal Red Blood Count 4.80 10 4.00-5.[address] [facility], [place]: [address] [facility] Normal Hemoglobin 12.1 g/dL 12.0-15.5 g/dL [facility], [place]: 0 [facility] Normal Hematocrit 39.0 % 36.0-47.0 % [facility], [place]: [address] [facility] Normal Mean Corpuscular Volume 81.3 fL 80.0 -96.[address] [facility], [place]: [address] [facility] Low Mean Corpuscular Hemoglobin 25.2 pg 27.0-33.[address] [facility], [place]: 0 [facility] Low Mean Corpuscular HGB Conc 31.0 g/dL 32.0-36.5 g/dL [facility], [place]: [address] [facility] Normal Red Cell Distribution Width 13.8 % 1 1.5-14.5 % [facility], [place]: [address] [facility] Normal Platelet Count, Automated 370 10 150 -[address] [facility], [place]: [address] [facility] High Neutrophils % 74.0 % 36.0-66.0 % [facility]: [address] [facility] Low Lymph % 19.3 % 24.0-44.0 % [facility]: [address] [facility] Normal [place] % 3.7 % 0.0-5.0 % [facility]: [address] [facility] Normal Eos % 2.1 % 0.0-3.0 % [facility]: [address] [facility] Normal Baso % 0.5 % 0.0-1.0 % [facility]: [address] [facility] Normal Immature Granulocyte % 0.4 % 0-3.0 % [facility], [place]: [address] [facility] Normal Nucleated Red Blood Cell % 0.0 % 0- 0 % [facility], [place]: [address] [facility] High Neutrophils # 11.8 10 1.5-8.5 10 [facility]: [address] [facility] Normal Lymph # 3.1 10 1.5-5.0 10 [facility]: [address] [facility] Normal [place] # 0.6 10 0.0-0.8 10 [facility]: [address] [facility] Normal Eos # 0.3 10 0.0-0.5 10 [facility]: [address] [facility] Normal Baso # 0.1 10 0.0-0.2 10 [facility]: 0 [facility] 12/05/2020 Hepatic Function Panel, Serum Low AST/SG OT 6 U/L 7-37 U/L [facility], [place]: 0 [facility] Normal ALT/SGPT 19 U/L 12-78 U/L [facility]: [address] [facility] High Alkaline Phosphatase 136 U/L 45-117 U/L [facility], [place]: 0 [facility] Low Bilirubin,total < 0.1 mg/dL 0.2-1.0 mg/dL [facility], [place]: 0 [facility] Normal Bilirubin,direct < 0.1 mg/dL 0.0-0.2 mg/dL [facility], [place]: 0 [facility] Normal Total Protein 7.4 gm/dL 6.4-8.2 gm/d L [facility], [place]: 0 [facility] Normal Albumin 3.7 gm/dL 3.2-5.2 gm/dL Drea l [facility]: 0 [facility] Low Albumin/globulin Ratio 1.0 1.2-2. 2 [facility], [place]: [address] [facility] 12/05/2020 BMP, Serum or Plasma Normal Glucose, Fastin g 90 mg/dL 70-100 mg/dL [facility], [place]: [address] [facility] Normal Blood Urea Nitrogen 15 mg/dL 7-18 mg /dL [facility], [place]: 0 [facility] Normal Creatinine for GFR 0.83 mg/dL 0.55-1 .30 mg/dL [facility], [place]: 0 [facility] Normal Glomerular Filtration Rate > 60.0 >[address] [facility], [place]: [address] [facility] Normal Sodium Level 141 mEq/L 136-145 mEq/L [facility], [place]: 0 [facility] Normal Potassium Serum 3.6 mEq/L 3.5-5.1 mE q/L [facility], [place]: [address] [facility] High Chloride Level 110 mEq/L 98-107 mEq/ L [facility], [place]: 0 [facility] Normal Carbon Dioxide Level 21 mEq/L 21-32 mEq/L [facility], [place]: 0 [facility] Normal Anion Gap 10 mEq/L 8-16 mEq/L [facility], [place]: 0 [facility] Normal Calcium Level 9.3 mg/dL 8.5-10.1 mg/ dL [facility], [place]: [address] [facility] 12/05/2020 Lipase, Serum or Plasma Normal Lipase 165 U/L 73-393 U/L [facility], [place]: 0 [facility] 12/05/2020 PT/INR High Prothrombin Time 23.9 secon ds 12.5-14.[address] [facility], [place]: 0 [facility] Normal Inr 2.09 [facility], [place]: 0 [facility] 12/05/2020 Partial Thromboplastin Time High Partial Thromboplastin Time 56.4 seconds 24.2-38.5 seconds [facility] nter: [address] [facility] 12/05/2020 Type + Screen, Serum Normal Blood Type O posit socrates [facility], [place]: [address] [facility] Normal Ab Screen (Indirect Colin)vis negat socrates [facility], [place]: [address] [facility] 12/05/2020 UA W/ Reflex to Culture Normal Appearance, Urine Rfx clear clear [facility], [place]: [address] 0 [facility] Normal Color, Urine Rfx colorless yellow Fi [facility]: [address] [facility] Normal pH,urine Rfx 5.0 units 5.0-9.[address] [facility], [place]: [address] [facility] Normal Specific [place] Ur Auto Rfx 1.036 1.002-1.035 [facility], [place]: [address] [facility] Normal Protein, Urine Auto Rfx negative mg/ dL negative mg/dL [facility], [place]: [address] [facility] Normal Glucose, Urine (UA) Auto Rfx n egative mg/dL negative mg/dL [facility], [place]: [address] [facility] Normal Ketone, Urine Auto Rfx negative mg/d L negative mg/dL [facility], [place]: [address] [facility] Normal Urobilinogen, Urine Auto Rfx 0.2 mg/ dL 0.0-2.0 mg/dL [facility], [place]: [address] [facility] Normal Bilirubin, Urine Auto Rfx negative n egative [facility], [place]: [address] [facility] Normal Nitrite, Urine Auto Rfx negative neg ative [facility], [place]: [address] [facility] Normal Leukocyte Esterase Ur Auto Rfx negat socrates negative [facility], [place]: [address] [facility] High Blood, Urine Blood Rfx 1+ negati ve [facility], [place]: [address] [facility] High WBC, Urine Auto Rfx 4 /hpf 0-3 /hpf [facility], [place]: [address] [facility] Normal RBC, Urine Auto Rfx 0 /hpf 0-3 /hpf [facility] [facility] [place]: [address] [facility] Normal Bacteria, Urine Auto Rfx negative ne gative [facility], [place]: [address] [facility] Normal Squam Epithelial Cell Ur Aurfx 3 /hp f 0-6 /hpf [facility], [place]: [address] [facility] Normal Mucus, Urine Rfx small negative [facility]: [address] [facility] Normal Hyaline Cast, Urine Auto Rfx 0 /lpf 0-1 /lpf [facility], [place]: [address] [facility] 11/28/2020 CBC W/ Auto Diff High White Blood Count 13.2 10 4.0-10.[address] [facility], [place]: [address] [place] [address] Normal Red Blood Count 4.71 10 4.00-5.[address] [facility], [place]: [address] [facility] Low Hemoglobin 11.9 g/dL 12.0-15.5 g/dL [facility], [place]: [address] [facility] Normal Hematocrit 38.4 % 36.0-47.0 % [facility], [place]: [address] [place] [address] Normal Mean Corpuscular Volume 81.5 fL 80.0 -96.[address] [facility], [place]: [address] [place] [address] Low Mean Corpuscular Hemoglobin 25.3 pg 27.0-33.[address] [facility], [place]: [address] [facility] Low Mean Corpuscular HGB Conc 31.0 g/dL 32.0-36.5 g/dL [facility], [place]: [address] [facility] Normal Red Cell Distribution Width 14.0 % 1 1.5-14.5 % [facility], [place]: [address] [facility] Normal Platelet Count, Automated 298 10 150 -[address] [facility], [place]: [address] [facility] Normal Neutrophils % 61.2 % 36.0-66.0 % [facility]: [address] [facility] Normal Lymph % 28.6 % 24.0-44.0 % Final [facility]: [address] [facility] Normal [place] % 3.9 % 0.0-5.0 % Final [facility]: [address] [facility] High Eos % 5.5 % 0.0-3.0 % [facility]: [address] [facility] Normal Baso % 0.4 % 0.0-1.0 % Final [facility]: [address] [facility] Normal Immature Granulocyte % 0.4 % 0-3.0 % [facility], [place]: [address] [facility] Normal Nucleated Red Blood Cell % 0.0 % 0- 0 % [facility], [place]: [address] [facility] Normal Neutrophils # 8.1 10 1.5-8.5 10 [facility]: [address] [facility] Normal Lymph # 3.8 10 1.5-5.0 10 [facility]: [address] [facility] Normal [place] # 0.5 10 0.0-0.8 10 [facility]: [address] [facility] High Eos # 0.7 10 0.0-0.5 10 [facility]: [address] [facility]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
--- OUTSIDE RECORDS SUMMARY | 2021-10-04 04:47 | CCD ---
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 RxNorm Banana Anaphylaxis Active 4359001 RxNorm Latex Active 8745 RxNorm Promethazine Rash [...] 4 Completed 03/07/2021 acetaminophen 325 mg tablet Active Not available acetaminophen ER 650 mg tablet,extended release TAKE [...] TABLET BY MOUTH TWICE A DAY Completed zuymeezouq-lxhipbjonqavo-xkhewmwz 50 mg- 300 mg-40 mg capsule TAKE ONE CAPSULE BY MOUTH EVERY 4 HOURS NEEDED Completed 03/01/2021 ldtkrgroey-cacwfyxeyqzmd-jbosocni 50 mg-325 mg-40 mg tablet Acti ve [...] mg tablet Completed clonazepam 1 mg tablet Active Not avail able clonazepam 2 mg tablet Completed cyclobenzaprine 10 mg tablet Completed 05/2021 Deblitane 0.35 mg tablet TAKE ONE TABLET BY MOUTH EVERY DAY Completed 02/11 docusate sodium 100 mg capsule TAKE ONE CAPSULE BY MOUTH THREE TIMES A DAY NEEDED Completed 08/08/2021 Eliquis 5 mg tablet TAKE ONE TABLET BY MOUTH TWO TIMES A DAY Active Not available emtricitabine 200 mg-tenofovir disoproxi l fumarate 300 mg tablet TAKE 1 TABLET BY MOUTH DAILY Active Not availa ble epinephrine 0.3 mg/0.3 mL injection, aut o-injector [...] Active Not available fluconazole 150 mg tablet Active Not av ailable fluoxetine 20 mg capsule TAKE ONE CAPSULE [...] ONE CAPSULE BY MOUTH EVERY DAY Completed hydrochlorothiazide 12.5 mg tablet Take 1 tablet [...] TWICE A DAY Active No t available ketoconazole 2 % topical cream Completed 0 08/08/2021 lamotrigine 100 mg tablet Active Not av [...] Completed 020 quetiapine 300 mg tablet TAKE 1 TABLET BY MOUTH ONCE A DAY AT BEDTIME Active Not available quetiapine [...] Concept Unknown 06/24/2020 History Contraceptive Sheath Status Active 07/27/2020 Hist ory Exposure to Communicable Disease [...] Tube Information n ot available 11/08/2020 Electrocardiogram [facility] [address] [place] [address] (Work Place) 08/08/2021 MRI, Brain, W/o Contrast [employer] [address] [place] [address] (Work Place) Notes: section x5, Involuntary D&C, Appendectomy, Tonsillectomy, Gallbladder Results Lab Results Date Name Specimen Result Interpretation Description Value Range Status Address 08/15/2021 Iron + TIBC + Ferritin, Serum Blood venous Low Iron, Total 26 mcg/dL 40-190 mcg/dL Final [facility]: [address] [facility] Blood venous Normal Iron Binding Capacity 38 4 mcg/dL (calc) 250-450 mcg/dL (calc) Final [facility]: [address] [facility] Blood venous Low % Saturation 7 % (calc) 16-45 % (calc) Final [facility]: [address] [facility] Blood venous Low Ferritin 11 NG/mL 16-154 NG/m L Final [facility]: [address] [facility] 08/15/2021 HIV 1/2 Antigen/antibody, 4TH Gen W/rfl,screenin g Blood venous Normal HIV Ag/Ab, 4TH Gen non-reactive non-reactive Final [facility]: [address] [facility] 08/15/2021 Cbc Blood venous High White Blood Cell Count 12.2 thousand/uL 3.8-10.8 thousand/uL Final [facility] [place] [facility] [address] [facility] Blood venous Normal Red Blood Cell Count 4.5 4 million/uL 3.80-5.10 million/uL Final [facility] [place] [facility]: [address] [facility] Blood venous Low Hemoglobin 10.6 g/dL 11.7-15. 5 g/dL Final [facility]: [address] [facility] Blood venous Normal Hematocrit 35.5 % 35.0-45.0 % Final [facility]: [address] [facility] Blood venous Low Mcv 78.2 fL 80.0-100.0 fL Fi nal [facility]: [address] [facility] Blood venous Low Mch 23.3 pg 27.0-33.0 pg Fin al [facility]: [address] [facility] Blood venous Low Mchc 29.9 g/dL 32.0-36.0 g/dL Final [facility]: [address] [facility] Blood venous Normal Rdw 14.6 % 11.0-15.0 % [facility]: [address] [facility] Blood venous High Platelet Count 536 thous and/uL 140-400 thousand/uL Final [facility]: [address] [facility] Blood venous Normal Mpv 10.9 fL 7.5-12.5 fL Drea l [facility]: [address] [facility] 08/09/2021 Urinalysis, Dipstick Normal Appearance, Urine hazy clear [facility]: [address] [facility] Normal Color, Urine yellow yellow [facility]: [address] [facility] Normal pH,urine 5.0 units 5.0-9.0 units [facility]: [address] [facility] Normal Specific [place] Urine Auto 1.028 1 .002-1.035 [facility]: [address] [facility] Normal Protein, Urine Auto negative mg/dL n egative mg/dL [facility]: [address] [facility] Normal Glucose, Urine (UA) Auto negative mg /dL negative mg/dL [facility]: [address] [facility] Normal Ketone, Urine Auto negative mg/dL ne gative mg/dL [facility]: [address] [facility] Normal Urobilinogen, Urine Auto 0.2 mg/dL 0 .0-2.0 mg/dL [facility]: [address] [facility] Normal Bilirubin, Urine Auto negative negat socrates [facility]: [address] [facility] Normal Nitrite, Urine Auto negative negativ e [facility]: [address] [facility] High Leukocyte Esterase, Urine Auto 1+ negative [facility]: [address] [facility] Normal Blood, Urine Blood negative negative [facility]: [address] [facility] Normal WBC, Urine Auto 2 /hpf 0-3 /hpf [facility]: [address] [facility] Normal RBC, Urine Auto 1 /hpf 0-3 /hpf [facility]: [address] [facility] Normal Bacteria, Urine Auto negative negati ve [facility]: [address] [facility] Normal Squamous Epithelial Cell Ur AU 2 /hp f 0-6 /hpf [facility]: [address] [facility] Normal Mucus, Urine small negative [facility]: [address] [facility] Normal Hyaline Cast, Urine Auto 0 /lpf 0-1 /lpf [facility]: [address] [facility] 08/09/2021 Protein, Total, Urine High Total Protein,random Urine 22.8 mg/dL 0.0-12.0 mg/dL [facility]ter: [address] [facility] 08/09/2021 CMP, Serum or Plasma Normal Glucose, Fastin g 100 mg/dL 70-100 mg/dL [facility]: 83 0 [facility] Normal Blood Urea Nitrogen 7 mg/dL 7-18 mg/ dL [facility]: [address] [facility] Normal Creatinine for GFR 0.64 mg/dL 0.55-1 .30 mg/dL [facility]: [address] [facility] Normal Glomerular Filtration Rate > 60.0 >6 0 [facility]: [address] [facility] Normal Sodium Level 142 mEq/L 136-145 mEq/L [facility]: [address] [facility] Normal Potassium Serum 4.3 mEq/L 3.5-5.1 mE q/L [facility]: [address] [facility] High Chloride Level 109 mEq/L 98-107 mEq/ L [facility]: [address] [facility] Normal Carbon Dioxide Level 27 mEq/L 21-32 mEq/L [facility]: [address] [facility] Low Anion Gap 6 mEq/L 8-16 mEq/L [facility]: [address] [facility] Normal Calcium Level 8.7 mg/dL 8.5-10.1 mg/ dL [facility]: [address] [facility] Normal AST/SGOT 7 U/L 7-37 U/L [facility]: [address] [facility] Normal ALT/SGPT 18 U/L 12-78 U/L [facility]: [address] [facility] High Alkaline Phosphatase 118 U/L 45-117 U/L [facility]: [address] [facility] Low Bilirubin,total 0.1 mg/dL 0.2-1.0 mg /dL [facility]: [address] [facility] Low Total Protein 6.1 gm/dL 6.4-8.2 gm/d L [facility]: [address] [facility] Low Albumin 3.1 gm/dL 3.2-5.2 gm/dL Drea l [facility]: [address] [facility] Low Albumin/globulin Ratio 1.0 1.2-2. 2 [facility]: [address] [facility] 08/09/2021 C3 (Complement), Serum or Plasma Normal Complement C3 167 mg/dL 90-180 mg/dL [facility] nter: [address] [facility] 08/09/2021 C4 (Complement), Serum or Plasma High Com plement C4 44 mg/dL 10-40 mg/dL [facility]: 83 0 [facility] 08/09/2021 C Reactive Protein, QN, Serum or Plasma High C Reactive Protein Quantitativ 2.21 mg/dL 0.00-0.30 mg/dL [facility]: [address] [place] [address] 08/09/2021 CBC W/ Auto Diff High White Blood Count 10.6 10 4.0-10.0 10 [facility]: [address] [place] [address] Low Red Blood Count 3.87 10 4.00-5.40 10 [facility]: [address] [place] [address] Low Hemoglobin 9.1 g/dL 12.0-15.5 g/dL F inal [facility]: [address] [place] [address] Low Hematocrit 30.2 % 36.0-47.0 % [facility]: [address] [place] [address] Low Mean Corpuscular Volume 78.0 fL 80.0 -96.0 fL [facility]: [address] [place] [address] Low Mean Corpuscular Hemoglobin 23.5 pg 27.0-33.0 pg [facility]: [address] [place] [address] Low Mean Corpuscular HGB Conc 30.1 g/dL 32.0-36.5 g/dL [facility]: [address] [place] [address] High Red Cell Distribution Width 15.4 % 1 1.5-14.5 % [facility]: [address] [place] [address] Normal Platelet Count, Automated 425 10 150 -450 10 [facility]: 0 [facility] Normal Neutrophils % 63.9 % 36.0-66.0 % [facility]: [address] [facility] Normal Lymph % 25.7 % 24.0-44.0 % [facility]: [address] [facility] Normal [place] % 5.5 % 2.0-8.0 % [facility]: 0 [facility] High Eos % 3.8 % 0.0-3.0 % [facility]: 0 [facility] Normal Baso % 0.5 % 0.0-1.0 % [facility]: [address] [facility] Normal Immature Granulocyte % 0.6 % 0-3.0 % [facility]: 8[address] [facility] Normal Nucleated Red Blood Cell % 0.0 % 0- 0 % [facility]: [address] [facility] Normal Neutrophils # 6.8 10 1.5-8.5 10 Drea [facility]: [address] [facility] Normal Lymph # 2.7 10 1.5-5.0 10 [facility]: [address] [facility] Normal [place] # 0.6 10 0.0-0.8 10 [facility]: [address] [facility] Normal Eos # 0.4 10 0.0-0.5 10 [facility]: [address] [facility] Normal Baso # 0.1 10 0.0-0.2 10 [facility]: 8[address] [facility] 08/09/2021 ESR (Erythrocyte Sedimentation Rate), Blood Hig h Erythrocyte Sedimentation Rate 59 mm/HR 0-20 mm/HR [facility]: 0 [facility] 08/07/2021 CBC W/ Auto Diff Normal White Blood Count 9.2 10 4.0-10.0 10 [facility]: [address] [facility] Normal Red Blood Count 4.47 10 4.00-5.40 10 [facility]: 0 [facility] Low Hemoglobin 10.6 g/dL 12.0-15.5 g/dL [facility]: 0 [facility] Low Hematocrit 35.0 % 36.0-47.0 % [facility]: [address] [place] [address] Low Mean Corpuscular Volume 78.3 fL 80.0 -96.0 fL [facility]: [address] [place] [address] Low Mean Corpuscular Hemoglobin 23.7 pg 27.0-33.0 pg [facility]: [address] [place] [address] Low Mean Corpuscular HGB Conc 30.3 g/dL 32.0-36.5 g/dL [facility]: [address] [place] [address] High Red Cell Distribution Width 15.3 % 1 1.5-14.5 % [facility]: [address] [place] [address] Normal Platelet Count, Automated 362 10 150 -450 10 [facility]: [address] [facility] Normal Neutrophils % 64.3 % 36.0-66.0 % [facility]: [address] [facility] Normal Lymph % 25.2 % 24.0-44.0 % [facility]: [address] [place] [address] Normal [place] % 6.0 % 2.0-8.0 % Final [facility]: [address] [place] [address] High Eos % 3.7 % 0.0-3.0 % [facility]: [address] [place] [address] Normal Baso % 0.5 % 0.0-1.0 % [facility]: [address] [place] [address] Normal Immature Granulocyte % 0.3 % 0-3.0 % [facility]: [address] [place] [address] Normal Nucleated Red Blood Cell % 0.0 % 0- 0 % [facility]: [address] [place] [address] Normal Neutrophils # 5.9 10 1.5-8.5 10 [facility]: [address] [facility] Normal Lymph # 2.3 10 1.5-5.0 10 [facility]: [address] [facility] Normal [place] # 0.6 10 0.0-0.8 10 [facility]: [address] [place] [address] Normal Eos # 0.3 10 0.0-0.5 10 [facility]: 0 [facility] Normal Baso # 0.1 10 0.0-0.2 10 [facility]: [address] [place] [address] 08/07/2021 BMP, Serum or Plasma Normal Glucose, Fastin g 92 mg/dL 70-100 mg/dL [facility]: 83 0 [facility] Normal Blood Urea Nitrogen 11 mg/dL 7-18 mg /dL [facility]: 8[address] [facility] Normal Creatinine for GFR 0.80 mg/dL 0.55-1 .30 mg/dL [facility]: 8[address] [facility] Normal Glomerular Filtration Rate > 60.0 >6 0 [facility]: [address] [facility] Normal Sodium Level 144 mEq/L 136-145 mEq/L [facility]: [address] [facility] Normal Potassium Serum 4.0 mEq/L 3.5-5.1 mE q/L [facility]: [address] [facility] High Chloride Level 113 mEq/L 98-107 mEq/ L [facility]: 8[address] [facility] Normal Carbon Dioxide Level 24 mEq/L 21-32 mEq/L [facility]: [address] [facility] Low Anion Gap 7 mEq/L 8-16 mEq/L [facility]: 8[address] [facility] Normal Calcium Level 8.8 mg/dL 8.5-10.1 mg/ dL [facility]: 0 [facility] 08/07/2021 Choriogonadotropin, Quant, Serum or Plasma Norm al HCG, Serum Quantitative < 1.0 mIU/mL [facility]: [address] [place] [address] 08/07/2021 Type + Screen, Serum Normal Blood Type O posit socrates [facility]: [address] [facility] Normal Ab Screen (Indirect Colin)vis negat socrates [facility]: 0 [facility] 08/07/2021 [place] ENDOCERVIX No observation recorded. [facility]: [address] [place] [address] 08/06/2021 CBC W/ Auto Diff Results Final [facility]: [address] [place] [address] Wbc 9.5 10^3/uL 4.2 - 11.0 10^3/uL [facility]: [address] [place] [address] Low Rbc 3.73 10^6/uL 4.20 - 5.40 10^6/u L [facility]: [address] [place] [address] Low Hemoglobin 9.0 g/dL 12.0 - 16.0 g/dL [facility]: [address] [place] [address] Hematocrit 28.6 % 37.0 - 47.0 % [facility]: [address] [place] [address] Mcv 76.7 fL 81.0 - 101 fL [facility] [address] [place] [address] Mch 24.1 pg 27.0 - 34.0 pg C arthage [facility]: [address] [place] [address] Mchc 31.5 g/dL 31.0 - 36.0 g/dL [facility]: [address] [place] [address] Rdw 15.0 % 11.5 - 14.5 % [facility]: [address] [place] [address] Platelets 367 10^3/uL 150 - 450 10^3 /uL [facility]: [address] [place] [address] Mpv 9.6 fL 7.4 - 10.4 fL Car [facility]: [address] [place] [address] Neut 64.6 % 37.0 - 80.0 % Car [facility]: [address] [place] [address] Lymph 26.4 % 25.0 - 40.0 % Ca [facility]: [address] [place] [address] [place] 5.1 % 3.0 - 8.0 % [facility] age [facility]: [address] [place] [address] Eos 3.2 % 0.0 - 7.0 % [facility]: [address] [place] [address] Baso 0.4 % 0.0 - 2.5 % [facility]: [address] [place] [address] High %Ig 0.3 % 0.0 - 0.0 % [facility]: [address] [place] [address] %Nrbc 0.0 % 0.0 - 0.0 % [facility]: [address] [place] [address] #Neut 6.14 10^3/uL 2.00 - 6.90 10^3/ uL [facility]: [address] [place] [address] #Lymph 2.51 10^3/uL 0.60 - 3.40 10^3 /uL [facility]: [address] [place] [address] #[place] 0.48 10^3/uL 0.00 - 0.90 10^3/ uL [facility]: [address] [place] [address] #Eos 0.30 10^3/uL 0.00 - 0.70 10^3/u L [facility]: [address] [place] [address] #Baso 0.04 10^3/uL 0.00 - 0.20 10^3/ uL [facility]: [address] [place] [address] #Ig 0.03 10^3/uL 0.00 - 0.10 10^3/u L [facility]: [address] [place] [address] #Nrbc 0.00 10^3/uL 0.00 - 0.00 10^3/ uL [facility]: [address] [place] [address] Manual Diff not indicated [facility]: [address] [place] [address] RBC Morph not indicated [facility]: [address] [place] [address] 08/06/2021 CMP, Serum or Plasma Results Final [facility]: [address] [place] [address] Sodium 141 mEq/L 134 - 153 mEq/L [facility]: [address] [place] [address] Low Potassium 3.5 mEq/L 3.6 - 5.0 mEq/L [facility]: [address] [place] [address] High Chloride 108 mEq/L 98 - 107 mEq/L [facility]: [address] [place] [address] Co2 25 mEq/L 22 - 30 mEq/L [facility] [address] [place] [address] High Glucose 103 mg/dL 70 - 99 mg/dL [facility]: [address] [place] [address] Bun 7 mg/dL 7 - 21 mg/dL [facility]: [address] [place] [address] Creatinine 0.8 mg/dL 0.7 - 1.5 mg/dL [facility]: [address] [place] [address] BUN/creat 9 8 - 27 [facility] Hospital: [address] [place] [address] Total Protein 6.3 g/dL 6.3 - 8.2 g/d L [facility]: [address] [place] [address] Albumin 4.0 g/dL 3.9 - 5.0 g/dL [facility]: [address] [place] [address] Low Globulin 2.3 gm/dL 2.4 - 3.2 gm/dL [facility]: [address] [place] [address] A/g Ratio 1.7 0.8 - 2.0 Ca [facility]: [address] [place] [address] Calcium 9.1 mg/dL 8.4 - 10.2 mg/dL [facility]: [address] [place] [address] Total Bili <0.7 mg/dL 0.2 - 1.3 mg/d L [facility]: [address] [place] [address] Alkaline Phos 114 U/L 38 - 126 U/L [facility]: [address] [place] [address] SGOT/AST 11 U/L 5 - 40 U/L Ca [facility]: [address] [place] [address] SGPT/ALT 10 U/L 7 - 56 U/L Ca [facility]: [address] [place] [address] Anion Gap 8.0 mmol/L 8.0 - 16.0 mmol /L [facility]: [address] [place] [address] Age 31 yrs [facility] Hospital: [address] [place] [address] Non-aa GFR >60 mL/min [facility]: [address] [place] [address] Afr Amer GFR >60 mL/min [facility]: [address] [place] [address] 07/31/2021 UA W/ Reflex to Culture Normal Appearance, Urine Rfx clear clear [facility]: 83 0 [facility] Normal Color, Urine Rfx colorless yellow Fi [facility]: [address] [facility] Normal pH,urine Rfx 7.0 units 5.0-9.0 units [facility]: 830 [facility] Normal Specific [place] Ur Auto Rfx 1.002 1.002-1.035 [facility]: 830 [facility] Normal Protein, Urine Auto Rfx negative mg/ dL negative mg/dL [facility]: 830 [facility] Normal Glucose, Urine (UA) Auto Rfx n egative mg/dL negative mg/dL [facility]: 830 [facility] Normal Ketone, Urine Auto Rfx negative mg/d L negative mg/dL [facility]: 8[address] [facility] Normal Urobilinogen, Urine Auto Rfx 0.2 mg/ dL 0.0-2.0 mg/dL [facility]: [address] [facility] Normal Bilirubin, Urine Auto Rfx negative n egative [facility]: 8[address] [facility] Normal Nitrite, Urine Auto Rfx negative neg ative [facility]: [address] [facility] Normal Leukocyte Esterase Ur Auto Rfx negat socrates negative [facility]: [address] [facility] High Blood, Urine Blood Rfx 2+ negati ve [facility]: [address] [facility] Normal WBC, Urine Auto Rfx 0 /hpf 0-3 /hpf [facility]: 8[address] [facility] Normal RBC, Urine Auto Rfx 1 /hpf 0-3 /hpf [facility]: [address] [facility] High Bacteria, Urine Auto Rfx 1+ nega tive [facility]: 8[address] [facility] Normal Squam Epithelial Cell Ur Aurfx 2 /hp f 0-6 /hpf [facility]: 8[address] [facility] Normal Hyaline Cast, Urine Auto Rfx 0 /lpf 0-1 /lpf [facility]: 8[address] [facility] 07/31/2021 CBC W/ Auto Diff Normal White Blood Count 8.4 10 4.0-10.0 10 [facility]: [address] [facility] Normal Red Blood Count 4.49 10 4.00-5.40 10 [facility]: [address] [facility] Low Hemoglobin 10.7 g/dL 12.0-15.5 g/dL [facility]: 8[address] [facility] Low Hematocrit 34.9 % 36.0-47.0 % [facility]: [address] [place] [address] Low Mean Corpuscular Volume 77.7 fL 80.0 -96.0 fL [facility]: [address] [place] [address] Low Mean Corpuscular Hemoglobin 23.8 pg 27.0-33.0 pg [facility]: [address] [place] [address] Low Mean Corpuscular HGB Conc 30.7 g/dL 32.0-36.5 g/dL [facility]: [address] [place] [address] High Red Cell Distribution Width 15.4 % 1 1.5-14.5 % [facility]: [address] [place] [address] Normal Platelet Count, Automated 303 10 150 -450 10 [facility]: 0 [facility] High Neutrophils % 66.6 % 36.0-66.0 % [facility]: [address] [facility] Low Lymph % 22.6 % 24.0-44.0 % [facility]: [address] [facility] Normal [place] % 5.5 % 2.0-8.0 % [facility]: 0 [facility] High Eos % 4.6 % 0.0-3.0 % [facility]: [address] [facility] Normal Baso % 0.5 % 0.0-1.0 % [facility]: [address] [facility] Normal Immature Granulocyte % 0.2 % 0-3.0 % [facility]: [address] [facility] Normal Nucleated Red Blood Cell % 0.0 % 0- 0 % [facility]: 0 [facility] Normal Neutrophils # 5.6 10 1.5-8.5 10 [facility]: [address] [facility] Normal Lymph # 1.9 10 1.5-5.0 10 [facility]: [address] [facility] Normal [place] # 0.5 10 0.0-0.8 10 [facility]: [address] [facility] Normal Eos # 0.4 10 0.0-0.5 10 [facility]: [address] [facility] Normal Baso # 0.0 10 0.0-0.2 10 [facility]: [address] [facility] 07/31/2021 Istat B-HCG Normal Istat B-HCG < 5.0 F [facility]: 8[address] [facility] 07/31/2021 Istat Chem8+ Panel Low Istat HCT 35.0 % 38. 0-51.0 % [facility]: 0 [facility] High Istat Glucose 123 mg/dL 70-105 mg/dL [facility]: [address] [facility] Normal Istat Sodium 138 mEq/L 136-145 mEq/L [facility]: [address] [facility] Normal Istat Potassium 4.3 mEq/L 3.5-5.1 mE q/L [facility]: 0 [facility] Normal Istat Ca++ 4.6 mg/dL 4.5-5.3 mg/dL F [facility]: [address] [facility] Normal Istat Chloride 105 mEq/L 98-109 mEq/ L [facility]: [address] [facility] Normal Istat CO2 24.0 mm/L 23.0-27.0 mm/L [facility]: [address] [facility] Normal Istat BUN 14 mg/dL 8-26 mg/dL [facility]: 0 [facility] Normal Istat Creatinine 0.7 mg/dL 0.6-1.3 m g/dL [facility]: [address] [facility] 07/31/2021 [place] ENDOCERVIX No observation recorded. [facility]: [address] [facility] 07/31/2021 PT/INR High Prothrombin Time 23.2 secon ds 12.7-14.5 seconds [facility]: [address] [place] [address] Normal Inr 2.01 [facility]: [address] [place] [address] 07/31/2021 Partial Thromboplastin Time High Partial Thromboplastin Time 63.9 seconds 25.9-37.0 seconds [facility] nter: [address] [place] [address] 07/31/2021 Lactic Acid, Serum or Plasma Normal Lactic Acid Sepsis Protocol 1.4 mmol/L 0.4-2.0 mmol/L [facility]: [address] [place] [address] 07/31/2021 Hepatic Function Panel, Serum Normal AST/SG OT 17 U/L 7-37 U/L [facility]: [address] [place] [address] Normal ALT/SGPT 24 U/L 12-78 U/L [facility]: [address] [place] [address] Normal Alkaline Phosphatase 117 U/L 45-117 U/L [facility]: [address] [place] [address] Low Bilirubin,total 0.1 mg/dL 0.2-1.0 mg /dL [facility]: [address] [place] [address] Normal Bilirubin,direct < 0.1 mg/dL 0.0-0.2 mg/dL [facility]: [address] [place] [address] Normal Total Protein 6.4 gm/dL 6.4-8.2 gm/d L [facility]: [address] [place] [address] Normal Albumin 3.2 gm/dL 3.2-5.2 gm/dL Drea l [facility]: [address] [place] [address] Low Albumin/globulin Ratio 1.0 1.2-2. 2 [facility]: [address] [place] [address] 07/31/2021 Amylase, Serum or Plasma Normal Amylase 40 U/L 25-115 U/L [facility]: [address] [place] [address] 07/31/2021 Lipase, Serum or Plasma Normal Lipase 91 U/L 7 3-393 U/L [facility]: [address] [facility] 07/31/2021 Chlamydia, GC & Trich Amp Normal Ch lamydia DNA Amplification negative negative [facility] nter: [address] [facility] Normal GC DNA Amplification negative negati ve [facility]: [address] [facility] Normal Trichomonas Vaginalis (Amp) not dete cted negative [facility]: [address] [facility] 07/31/2021 Influenza A/B RSV Covid Amp Normal Influenza a Amplification negative negative [facility] nter: [address] [facility] Normal Influenza B Amplification negative n egative [facility]: [address] [facility] Normal RSV Amplification negative negative [facility]: [address] [facility] Normal Sars Covid-19 Amplification negative negative [facility]: [address] [facility] 07/31/2021 TSH, Serum or Plasma Normal Thyroid Stimulating Hormone 0.444 uIU/mL 0.358-3.740 uIU/mL [facility] nter: [address] [facility] 07/31/2021 T4, Free, Serum Low Free T4 0.66 NG/dL 0.76 -1.46 NG/dL [facility]: 0 [facility] 07/31/2021 Type + Screen, Serum Normal Blood Type O posit socrates [facility]: [address] [facility] Normal Ab Screen (Indirect Colin)vis negat socrates [facility]: 0 [facility] 07/31/2021 Cardiovascular Assessment Panel, Serum Normal CPK Creatine Phosphokinase 67 U/L 26-192 U/L [facility]: 0 [facility] Normal CK-mb Value Mass < 1.0 NG/mL <3.6 NG /mL [facility]: 0 [facility] Normal mb/CK Relative Index 1.49 < or =4 [facility]: 0 [facility] Normal Troponin I < 0.02 NG/mL < 0.10 NG/mL [facility]: [address] [facility] 07/31/2021 Ethanol, Blood Normal Ethyl Alcohol (Ethano l) < 0.003 % 0.000- 0.010 % [facility]: 83 0 [facility] 07/31/2021 Salicylate, Quantitative, Serum Low Salicylate Level < 1.7 mg/dL 5.0-30.0 mg/dL [facility] nter: [address] [facility] 07/31/2021 Acetaminophen, Serum Low Acetaminophen L evel < 2.0 ug/mL 10.0- 30.0 ug/mL [facility]: 83 0 [facility] 07/31/2021 CBC W/ Auto Diff Normal White Blood Count 8.5 10 4.0-10.0 10 [facility]: 8[address] [facility] Normal Red Blood Count 4.04 10 4.00-5.40 10 [facility]: 8[address] [facility] Low Hemoglobin 9.7 g/dL 12.0-15.5 g/dL F inal [facility]: [address] [facility] Low Hematocrit 31.4 % 36.0-47.0 % [facility]: 0 [facility] Low Mean Corpuscular Volume 77.7 fL 80.0 -96.0 fL [facility]: [address] [facility] Low Mean Corpuscular Hemoglobin 24.0 pg 27.0-33.0 pg [facility]: 8[address] [facility] Low Mean Corpuscular HGB Conc 30.9 g/dL 32.0-36.5 g/dL [facility]: [address] [facility] High Red Cell Distribution Width 15.3 % 1 1.5-14.5 % [facility]: 8[address] [facility] Normal Platelet Count, Automated 302 10 150 -450 10 [facility]: [address] [facility] Normal Neutrophils % 59.7 % 36.0-66.0 % Fin al [facility]: 8[address] [facility] Normal Lymph % 28.8 % 24.0-44.0 % Final [facility]: 8[address] [facility] Normal [place] % 5.9 % 2.0-8.0 % Final [facility]: [address] [facility] High Eos % 4.7 % 0.0-3.0 % [facility]: [address] [facility] Normal Baso % 0.5 % 0.0-1.0 % [facility]: 8[address] [facility] Normal Immature Granulocyte % 0.4 % 0-3.0 % [facility]: 8[address] [facility] Normal Nucleated Red Blood Cell % 0.0 % 0- 0 % [facility]: 8[address] [facility] Normal Neutrophils # 5.1 10 1.5-8.5 10 [facility]: [address] [facility] Normal Lymph # 2.4 10 1.5-5.0 10 [facility]: [address] [facility] Normal [place] # 0.5 10 0.0-0.8 10 [facility]: [address] [facility] Normal Eos # 0.4 10 0.0-0.5 10 [facility]: [address] [facility] Normal Baso # 0.0 10 0.0-0.2 10 [facility]: [address] [facility] 07/31/2021 Drug Screen, Urine Normal Amphetamines Leve l Urine negative negative [facility]: 83 0 [facility] Normal Barbiturates Urine negative negative [facility]: [address] [facility] Normal Benzodiazepines Urine negative negat socrates [facility]: [address] [facility] Normal Cannabinoids Urine negative negative [facility]: [address] [facility] Normal Cocaine Metabolite Urine negative ne gative [facility]: [address] [facility] Normal Methadone Urine negative negative Fi [facility]: [address] [facility] High Opiates Urine positive negative Drea l [facility]: [address] [facility] Normal Phencyclidine Urine negative negativ e [facility]: [address] [facility] 07/29/2021 CT + NG RNA, PCR, Unspecified Specimen Urine Normal Chlamydia Trachomatis RNA, Tma, Urogenital not detected not detected Final [facility]: [address], [place] Urine Normal Neisseria Gonorrhoeae RNA, Tma, Urogenital not detected not detected Final [facility] [place]: [address], [place] Urine Comment Final [facility]: [address], [place] 07/29/2021 Test, Urine Urine clean catch Hcg n egative [facility]: [address] [facility] [address], [place] 07/25/2021 Thrombosis Prof ([id number]) Normal Homocyste ine 6.5 umol/L . umol/L [facility]: 83 0 [facility] Normal Factor VIII Activity 91 % . % F [facility]: [address] [facility] Normal Antithrombin Activity 127 % . % [facility]: [address] [facility] Normal Prt C Activity(chromogenic) 160 % . % [facility]: [address] [facility] Normal Protein S Antigen, Free 61 % . % [facility]: [address] [facility] Normal Aptt 27.3 sec . sec [facility]: [address] [facility] Normal APTT 1:1 Maintenance Planner tnp sec . sec [facility]: [address] [facility] Normal APTT 1:1 Saline tnp sec . sec [facility]: [address] [facility] Normal Lac Interpretation . [facility]: [address] [facility] Normal Act Prt C Resist W/fv Defic 2.2 rati o . ratio [facility]: [address] [facility] High Drvvt Screen Seconds 72.2 sec . sec [facility]: [address] [facility] Normal Drvvt Confirm Seconds 45.1 sec . sec [facility]: [address] [facility] High Drvvt Ratio 1.4 ratio . ratio [facility]: [address] [facility] Normal Hexagonal Phospholipid Neutal 7 sec . sec [facility]: [address] [facility] Normal Anticardiolipin Ab, IgG <10 gpl . gp l [facility]: [address] [facility] Normal Anticardiolipin Ab, IgM 19 mpl . mpl [facility]: [address] [facility] Normal Beta-2 Glycoprotein I, IgG <10 sgu . sgu [facility]: [address] [facility] Normal Beta-2 Glycoprotein I, IgM <10 smu . smu [facility]: [address] [facility] Normal Beta-2 Glycoprotein I, IgA <10 braden . braden [facility]: [address] [facility] Normal Factor II Gene Mutation Result tnp . [facility]: [address] [facility] Normal Factor II Gene Interpretation tnp . [facility]: 8[address] [facility] Normal Factor II Gene Methodology . [facility]: [address] [facility] Normal Factor II Gene Comments . [facility]: [address] [facility] 07/25/2021 Thrombosis Prof ([id number]) Normal Homocyste ine 6.5 umol/L . umol/L [facility]: 83 0 [facility] Normal Factor VIII Activity 91 % . % F inal [facility]: [address] [facility] Normal Antithrombin Activity 127 % . % [facility]: [address] [facility] Normal Prt C Activity(chromogenic) 160 % . % [facility]: [address] [facility] Normal Protein S Antigen, Free 61 % . % [facility]: [address] [facility] Normal Aptt 27.3 sec . sec [facility]: [address] [facility] Normal APTT 1:1 Maintenance Planner tnp sec . sec [facility]: [address] [facility] Normal APTT 1:1 Saline tnp sec . sec [facility]: [address] [facility] Normal Lac Interpretation . [facility]: [address] [facility] Normal Act Prt C Resist W/fv Defic 2.2 rati o . ratio [facility]: [address] [facility] High Drvvt Screen Seconds 72.2 sec . sec [facility]: [address] [facility] Normal Drvvt Confirm Seconds 45.1 sec . sec [facility]: [address] [facility] High Drvvt Ratio 1.4 ratio . ratio [facility]: [address] [facility] Normal Hexagonal Phospholipid Neutal 7 sec . sec [facility]: [address] [facility] Normal Anticardiolipin Ab, IgG <10 gpl . gp l [facility]: [address] [facility] Normal Anticardiolipin Ab, IgM 19 mpl . mpl [facility]: [address] [facility] Normal Beta-2 Glycoprotein I, IgG <10 sgu . sgu [facility]: [address] [facility] Normal Beta-2 Glycoprotein I, IgM <10 smu . smu [facility]: [address] [facility] Normal Beta-2 Glycoprotein I, IgA <10 braden . braden [facility]: [address] [facility] Normal Factor II Gene Mutation Result tnp . [facility]: [address] [facility] Normal Factor II Gene Interpretation tnp . [facility]: [address] [facility] Normal Factor II Gene Methodology . [facility]: [address] [facility] Normal Factor II Gene Comments . [facility]: [address] [facility] 07/08/2021 Lactic Acid Level, Lactate Normal L actic Acid Level, Lactate 1.6 mmol/L 0.4-2.0 mmol/L [facility] nter: [address] [facility] 07/08/2021 UA W/ Reflex to Culture Normal Appearance, Urine Rfx hazy clear [facility]: 83 0 [facility] Normal Color, Urine Rfx straw yellow [facility]: [address] [facility] Normal pH,urine Rfx 8.0 units 5.0-9.0 units [facility]: [address] [facility] Normal Specific [place] Ur Auto Rfx 1.014 1.002-1.035 [facility]: [address] [facility] Normal Protein, Urine Auto Rfx negative mg/ dL negative mg/dL [facility]: [address] [facility] Normal Glucose, Urine (UA) Auto Rfx n egative mg/dL negative mg/dL [facility]: 8[address] [facility] Normal Ketone, Urine Auto Rfx negative mg/d L negative mg/dL [facility]: [address] [facility] Normal Urobilinogen, Urine Auto Rfx 0.2 mg/ dL 0.0-2.0 mg/dL [facility]: [address] [facility] Normal Bilirubin, Urine Auto Rfx negative n egative [facility]: [address] [facility] Normal Nitrite, Urine Auto Rfx negative neg ative [facility]: [address] [facility] Normal Leukocyte Esterase Ur Auto Rfx negat socrates negative [facility]: [address] [facility] High Blood, Urine Blood Rfx 1+ negati ve [facility]: [address] [facility] Normal WBC, Urine Auto Rfx 2 /hpf 0-3 /hpf [facility]: [address] [facility] Normal RBC, Urine Auto Rfx 2 /hpf 0-3 /hpf [facility]: [address] [facility] Normal Bacteria, Urine Auto Rfx negative ne gative [facility]: [address] [facility] Normal Squam Epithelial Cell Ur Aurfx 5 /hp f 0-6 /hpf [facility]: 0 [facility] Normal Hyaline Cast, Urine Auto Rfx 0 /lpf 0-1 /lpf [facility]: [address] [facility] 07/08/2021 Cbc High White Blood Count 18.9 10 4.0-10 .0 10 [facility]: 0 [facility] Low Red Blood Count 3.72 10 4.00-5.40 10 [facility]: 8[address] [facility] Low Hemoglobin 9.2 g/dL 12.0-15.5 g/dL F inal [facility]: 0 [facility] Low Hematocrit 29.3 % 36.0-47.0 % [facility]: [address] [place] [address] Low Mean Corpuscular Volume 78.8 fL 80.0 -96.0 fL [facility]: [address] [place] [address] Low Mean Corpuscular Hemoglobin 24.7 pg 27.0-33.0 pg [facility]: [address] [place] [address] Low Mean Corpuscular HGB Conc 31.4 g/dL 32.0-36.5 g/dL [facility]: [address] [place] [address] High Red Cell Distribution Width 15.6 % 1 1.5-14.5 % [facility]: 0 [facility] Normal Platelet Count, Automated 391 10 150 -450 10 [facility]: 0 [facility] Normal Nucleated Red Blood Cell % 0.0 % 0- 0 % [facility]: [address] [facility] 07/08/2021 BMP, Serum or Plasma High Glucose, Fastin g 115 mg/dL 70-100 mg/dL [facility]: 83 0 [facility] Normal Blood Urea Nitrogen 10 mg/dL 7-18 mg /dL [facility]: 0 [facility] Normal Creatinine for GFR 0.67 mg/dL 0.55-1 .30 mg/dL [facility]: [address] [facility] Normal Glomerular Filtration Rate > 60.0 >6 0 [facility]: [address] [facility] Normal Sodium Level 142 mEq/L 136-145 mEq/L [facility]: [address] [facility] D Potassium Serum 4.8 mEq/L 3.5-5.1 mE q/L [facility]: [address] [place] [address] High Chloride Level 109 mEq/L 98-107 mEq/ L [facility]: 0 [facility] Normal Carbon Dioxide Level 25 mEq/L 21-32 mEq/L [facility]: [address] [place] [address] Normal Anion Gap 8 mEq/L 8-16 mEq/L [facility]: [address] [place] [address] Normal Calcium Level 8.8 mg/dL 8.5-10.1 mg/ dL [facility]: [address] [place] [address] 07/08/2021 Hepatic Function Panel, Serum Normal AST/SG OT 15 U/L 7-37 U/L [facility]: [address] [place] [address] Normal ALT/SGPT 41 U/L 12-78 U/L [facility]: 0 [facility] Normal Alkaline Phosphatase 104 U/L 45-117 U/L [facility]: [address] [place] [address] Low Bilirubin,total 0.1 mg/dL 0.2-1.0 mg /dL [facility]: [address] [place] [address] Normal Bilirubin,direct < 0.1 mg/dL 0.0-0.2 mg/dL [facility]: 0 [facility] Low Total Protein 6.1 gm/dL 6.4-8.2 gm/d L [facility]: 0 [facility] Low Albumin 3.0 gm/dL 3.2-5.2 gm/dL Drea l [facility]: [address] [place] [address] Low Albumin/globulin Ratio 1.0 1.2-2. 2 [facility]: [address] [place] [address] 07/07/2021 Istat ABG High Istat pH 7.473 units 7.350-7. 450 units [facility]: [address] [place] [address] Normal Istat pCO2 38.4 mmHg 35.0-45.0 mmHg [facility]: [address] [place] [address] Low Istat pO2 70.0 mmHg 80-105 mmHg Drea [facility]: [address] [place] [address] High Istat TCO2 29.0 mmol/L 23.0-27.0 mmo l/L [facility]: [address] [place] [address] High Istat HCO3 28.1 mmol/L 22.0-26.0 mmo l/L [facility]: [address] [place] [address] High Istat Base Excess 5.0 mmol/L -2.0-3. 0 mmol/L [facility]: [address] [place] [address] Normal Istat So2 95 % 95-98 % [facility]: [address] [place] [address] 07/07/2021 CBC W/ Auto Diff High White Blood Count 14.1 10 4.0-10.0 10 [facility]: [address] [place] [address] Normal Red Blood Count 4.23 10 4.00-5.40 10 [facility]: [address] [place] [address] Low Hemoglobin 10.3 g/dL 12.0-15.5 g/dL [facility]: [address] [place] [address] Low Hematocrit 32.7 % 36.0-47.0 % [facility]: [address] [place] [address] Low Mean Corpuscular Volume 77.3 fL 80.0 -96.0 fL [facility]: [address] [place] [address] Low Mean Corpuscular Hemoglobin 24.3 pg 27.0-33.0 pg [facility]: [address] [place] [address] Low Mean Corpuscular HGB Conc 31.5 g/dL 32.0-36.5 g/dL [facility]: [address] [facility] High Red Cell Distribution Width 15.2 % 1 1.5-14.5 % Final [facility]: 8[address] [facility] Normal Platelet Count, Automated 374 10 150 -450 10 Final [facility]: 8[address] [facility] Normal Nucleated Red Blood Cell % 0.0 % 0- 0 % Final [facility]: 830 [facility] 07/07/2021 Differential Panel, Blood Normal Neutrophil s 56 % 28-66 % Final [facility]: 8[address] [facility] Normal Lymphocytes 30 % 16-44 % Final [facility]: 8[address] [facility] High Monocytes 7 % 0-5 % Final [facility]: [address] [facility] High Eosinophils 5 % 0-3 % Final [facility]: [address] [facility] Normal Basophils 1 % 0-1 % Final [facility]: 8[address] [facility] Normal Atypical Lymph 1 % 0-5 % [facility]: 8[address] [facility] Normal Hypochromasia 1+ Final [facility]: [address] [facility] Normal Anisocytosis 1+ Final [facility] [address] [facility] Normal Microcytosis 1+ Final [facility]: [address] [facility] Normal Ovalocytes 1+ Final [facility]: [address] [facility] Normal Smudge Cells 1+ Final [facility]: [address] [facility] Normal Platelet Clumps small amt Fin al [facility]: 8[address] [facility] 07/07/2021 Platelet Count, Estimate, Blood Normal Platelet Estimate normal normal Final [facility] nter: [address] [facility] 07/07/2021 Influenza A/B RSV Covid Amp Normal Influenza a Amplification negative negative Final [facility] nter: [address] [facility] Normal Influenza B Amplification negative n egative [facility]: [address] [facility] Normal RSV Amplification negative negative [facility]: [address] [facility] Normal Sars Covid-19 Amplification negative negative [facility]: 8[address] [facility] 07/07/2021 Cardiovascular Assessment Panel, Serum Normal CPK Creatine Phosphokinase 45 U/L 26-192 U/L [facility] Center: [address] [place] [address] Normal CK-mb Value Mass < 1.0 NG/mL <3.6 NG /mL [facility]: [address] [place] [address] Normal mb/CK Relative Index 2.22 < or =4 [facility]: [address] [place] [address] Normal Troponin I < 0.02 NG/mL < 0.10 NG/mL [facility]: 0 [facility] 07/07/2021 Hepatic Function Panel, Serum Normal AST/SG OT 15 U/L 7-37 U/L [facility]: 0 [facility] Normal ALT/SGPT 30 U/L 12-78 U/L [facility]: 830 [facility] Normal Alkaline Phosphatase 111 U/L 45-117 U/L [facility]: 0 [facility] Low Bilirubin,total 0.1 mg/dL 0.2-1.0 mg /dL [facility]: 0 [facility] Normal Bilirubin,direct < 0.1 mg/dL 0.0-0.2 mg/dL [facility]: 830 [facility] Normal Total Protein 6.6 gm/dL 6.4-8.2 gm/d L [facility]: 830 [facility] Normal Albumin 3.2 gm/dL 3.2-5.2 gm/dL Drea l [facility]: 0 [facility] Low Albumin/globulin Ratio 0.9 1.2-2. 2 [facility]: 0 [facility] 07/07/2021 BMP, Serum or Plasma Normal Glucose, Fastin g 97 mg/dL 70-100 mg/dL [facility]: 83 0 [facility] Normal Blood Urea Nitrogen 9 mg/dL 7-18 mg/ dL [facility]: 830 [facility] Normal Creatinine for GFR 0.68 mg/dL 0.55-1 .30 mg/dL [facility]: 830 [facility] Normal Glomerular Filtration Rate > 60.0 >6 0 [facility]: 830 [facility] Normal Sodium Level 141 mEq/L 136-145 mEq/L [facility]: 830 [facility] Low Potassium Serum 3.4 mEq/L 3.5-5.1 mE q/L [facility]: 830 [facility] Normal Chloride Level 105 mEq/L 98-107 mEq/ L [facility]: 830 [facility] Normal Carbon Dioxide Level 28 mEq/L 21-32 mEq/L [facility]: 830 [facility] Normal Anion Gap 8 mEq/L 8-16 mEq/L [facility]: 830 [facility] Normal Calcium Level 8.8 mg/dL 8.5-10.1 mg/ dL [facility]: 830 [facility] 07/07/2021 Drug Screen, Urine Normal Amphetamines Leve l Urine negative negative [facility]: 83 0 [facility] High Barbiturates Urine positive negative [facility]: 830 [facility] High Benzodiazepines Urine positive negat socrates [facility]: 830 [facility] Normal Cannabinoids Urine negative negative [facility]: 830 [facility] Normal Cocaine Metabolite Urine negative ne gative [facility]: 830 [facility] Normal Methadone Urine negative negative Fi nal [facility]: 830 [facility] High Opiates Urine positive negative Drea l [facility]: 830 [facility] Normal Phencyclidine Urine negative negativ e [facility]: 830 [facility] 07/07/2021 ESR (Erythrocyte Sedimentation Rate), Blood Hig h Erythrocyte Sedimentation Rate 52 mm/HR 0-20 mm/HR Final [facility] Center: 830 [facility] 07/07/2021 D-dimer, Quant, Plasma Normal D-dimer Quant 333.30 NG/mL <500 NG/mL Final [facility]: 83 0 [facility] 07/07/2021 Lactic Acid, Serum or Plasma Panic High Lactic Acid Sepsis Protocol 4.1 mmol/L 0.4-2.0 mmol/L Final [facility]: 830 [facility] 07/07/2021 Respiratory Virus Panel NASOPHARYNX No observ ation recorded. [facility]: [address] [place] [address] 07/07/2021 Magnesium, Serum or Plasma Normal Magnesium Level 1.8 mg/dL 1.8-2.4 mg/dL Final [facility]: 83 0 [facility] 07/07/2021 Pro BNP (Pro B-type Natriuretic Peptide), Serum or Plasma Normal Nt-pro BNP 30 pg/mL <125 pg/mL [facility] Center: 830 [facility] 07/07/2021 TIBC (Total Iron-binding Capacity), Serum Low Iron (Fe) 25 ug/dL 50-170 ug/dL [facility] nter: 0 [facility] Normal Total Iron Binding Capacity 376 ug/d L 250-450 ug/dL [facility]: [address] [place] [address] Low Percent Saturation 6.6 % 13.2-45.0 % [facility]: 830 [facility] 07/07/2021 C3 (Complement), Serum or Plasma Normal Complement C3 166 mg/dL 90-180 mg/dL [facility] nter: 830 [facility] 07/07/2021 C4 (Complement), Serum or Plasma High Com plement C4 46 mg/dL 10-40 mg/dL [facility]: 83 0 [facility] 07/07/2021 Vitamin B12, Serum Normal Vitamin B12 Level 850 pg/mL 247-911 pg/mL [facility]: 83 0 [facility] 07/07/2021 Folate, Serum Normal Folate 10.6 NG/mL >5.4 NG /mL [facility]: 830 [facility] 07/07/2021 Ferritin, Serum or Plasma Normal Ferritin 19 NG/mL 8-252 NG/mL [facility]: 830 [facility] 07/07/2021 C Reactive Protein, QN, Serum or Plasma High C Reactive Protein Quantitativ 3.58 mg/dL 0.00-0.30 mg/dL [facility] Center: 830 [facility] 07/07/2021 Glucose, Fingerstick, Blood High Bedside Glucose 178 mg/dL 70- 105 mg/dL [facility]: 83 0 [facility] 07/07/2021 Gas Panel, Arterial Blood High ABG pH (Ar terial) 7.468 units 7.350-7.450 units [facility]: 83 0 [facility] Low ABG Partial Pressure CO2 32.8 mmHg 3 5.0-45.0 mmHg [facility]: 830 [facility] Low ABG Partial Pressure O2 61.5 mmHg 75 .0-100.0 mmHg [facility]: 830 [facility] Normal ABG Total CO2 24.2 mEq/L 22.0-29.0 m Eq/L [facility]: 830 [facility] Normal Abg Hco3 23.2 mEq/L 22.0-26.0 mEq/L [facility]: 830 [facility] Normal ABG Base Excess 0.0 -2.0-2.0 Drea l [facility]: 830 [facility] Normal ABG Standard HCO3 24.4 mEq/L 22.0-26 .0 mEq/L [facility]: 0 [facility] Low ABG O2 Saturation 91.9 % 95.0-99.0 % [facility]: 830 [facility] 07/07/2021 Lactic Acid, Serum or Plasma Panic High Lactic Acid Sepsis Protocol 4.8 mmol/L 0.4-2.0 mmol/L [facility] Center: [address] [place] [address] 07/07/2021 Procalcitonin, Serum Normal Procalcitonin 0.09 [facility]: [address] [place] [address] 07/07/2021 Choriogonadotropin, Quant, Serum or Plasma Norm al HCG, Serum Quantitative < 1.0 mIU/mL [facility]: [address] [place] [address] 07/07/2021 Troponin I, Blood Normal Troponin I < 0.02 NG/mL < 0.10 NG/mL [facility]: [address] [place] [address] 07/07/2021 TSH, Serum or Plasma Normal Thyroid Stimulating Hormone 0.696 uIU/mL 0.358-3.740 uIU/mL [facility] nter: [address] [place] [address] 07/07/2021 T4, Free, Serum Low Free T4 0.65 NG/dL 0.76 -1.46 NG/dL [facility]: [address] [place] [address] 07/07/2021 T3, Total, Serum Low Total T3 49.3 NG/d L 60.0-181.0 NG/dL [facility]: [address] [place] [address] 07/07/2021 Sickle Cell Screen, Qual, Light Microscopy, Blood Normal Sickle Cell Screen negative negative [facility]: [address] [place] [address] 07/07/2021 Lactic Acid Level, Lactate Panic High Lactic Acid Level, Lactate 4.3 mmol/L 0.4-2.0 mmol/L [facility]: [address] [place] [address] 07/07/2021 Lactic Acid, Serum or Plasma Panic High Lactic Acid Sepsis Protocol 3.7 mmol/L 0.4-2.0 mmol/L [facility]: [address] [place] [address] 07/07/2021 Periph Smear for Path Review Normal Slide R luciow report [facility]: [address] [place] [address] Normal Source peripheral smear [facility]: [address] [place] [address] Normal Reason for Review atypical lymphs Final [facility]: 830 [facility] 07/07/2021 Mrsa Screen, PCR Normal MRSA PCR Screen no t detected negative Final [facility]: 830 [facility] 07/07/2021 Culture, Blood BLOOD No observation recorded. [facility]: 830 [facility] 07/07/2021 Pathology Request for Service Periph eral Smear-path Review Final [facility]: 83 0 [facility] 07/07/2021 LDH Lactate Dehydrogenase Normal LD H Lactate Dehydrogenase 245 U/L 84-246 U/L [facility] nter: 830 [facility] 07/07/2021 Acetaminophen, Serum Low Acetaminophen L evel 8.7 ug/mL 10.0- 30.0 ug/mL [facility]: 83 0 [facility] 07/07/2021 Culture, Blood BLOOD No observation recorded. [facility]: 830 [facility] 07/07/2021 Haptoglobin Normal Haptoglobin 208 mg/dL 33-27 8 mg/dL [facility]: 830 [facility] 07/07/2021 Complement C2, Serum Normal Complement C2 2.8 mg/dL 1.4-3.3 mg/dL [facility]: 83 0 [facility] 07/02/2021 SARS CoV 2 RNA (COVID-19), QL, box car loader-PCR, Respiratory Specim en Covid-19 PCR negative negative [facility]): 4 [facility] 07/02/2021 Lactic Acid La 1.1 mmol/L 0.4-2.0 mmo l/L [facility]): 4 [facility] 07/02/2021 CMP, Serum or Plasma Glu 100 mg/dL 74- 106 mg/dL [facility]): 4 [facility] Bun 9 mg/dL 7-18 mg/dL [facility]): 4 [facility] Cre 0.67 mg/dL 0.6-1.0 mg/dL [facility]): 4 [facility] Na 141 mmol/L 136-145 mmol/L [facility] ([facility]): 4 [facility] Low K 3.3 mmol/L 3.5-5.1 mmol/L [facility] ([facility]): 4 [facility] Cl 103 mmol/L 98-107 mmol/L [facility] ([facility]): 4 [facility] Co2 27 mmol/L 21-32 mmol/L [facility] ([facility]): 4 [facility] Ca 8.9 mg/dL 8.5-10.1 mg/dL [facility] ([facility]): 4 [facility] Gap 11.0 mmol/L 5-12 mmol/L [facility] ([facility]): 4 [facility] Gfr >90 mL/min [facility] ([facility]): 4 [facility] Low Ast 9 U/L 15-37 U/L Final [facility]): 4 [facility] Alt 23 U/L 12-78 U/L Final [facility] ([facility]): 4 [facility] High Alk 119 U/L 46-116 U/L [facility] ([facility]): 4 [facility] Low Tbili 0.1 mg/dL 0.2-1.0 mg/dL [facility] ([facility]): 4 [facility] Tp 6.9 g/dL 6.4-8.2 g/dL [facility] ([facility]): 4 [facility] Low Alb 3.1 gm/dL 3.4-5.0 gm/dL [facility] ([facility]): 4 [facility] 07/02/2021 Bnp Bnp 28 pg/mL 0-125 pg/mL [facility] ([facility]): 4 [facility] 07/02/2021 Urine Microscopic High Urbc tntc /hpf 0-3 /h pf [facility] ([facility]): 4 [facility] High UWBC Reflex 0-2 /hpf 0-5 /hpf [facility] ([facility]): 4 [facility] Uec 1+ /hpf 0 /hpf Final [facility] ([facility]): 4 [facility] High Ub Reflex 1+ none seen Final [facility] ([facility]): 4 [facility] Uyeast present Final [facility]): 4 [facility] 07/02/2021 Urinalysis Complete, Reflex Culture Ucol yellow [facility] ([facility]): 4 [facility] Uapp slighty cloudy Final [facility] ([facility]): 4 [facility] Ugl negative mg/dL negative mg/dL F [facility] ([facility]): 4 [facility] Ubil negative negative [facility] ([facility]): 4 [facility] Uket negative mg/dL negative mg/dL F [facility] ([facility]): 4 [facility] Sgu 1.010 1.005-1.030 [facility] ([facility]): 4 [facility] High Ubl Reflex 3+(large) negative [facility] ([facility]): 4 [facility] Yimi 6.5 5.0-9.0 Final [facility] ([facility]): 4 [facility] Upro Reflex negative mg/dL negative mg/dL [facility] ([facility]): 4 [facility] Uuro normal(0.2-1) mg/dL 0-1 mg/dL F [facility] ([facility]): 4 [facility] Unit Reflex negative negative [facility] ([facility]): 4 [facility] Ule Reflex negative negative [facility] ([facility]): 4 [facility] 07/02/2021 Magnesium, Serum or Plasma mg 2.0 mg/ dL 1.8-2.4 mg/dL [facility] ([facility]): 4 [facility] 07/02/2021 Troponin-high Sensitivity Trophs 5.4 NG /L 0-60.4 NG/L [facility] ([facility]): 4 [facility] 07/02/2021 Troponin-high Sensitivity Trophs 4.6 NG /L 0-60.4 NG/L [facility]): 4 [facility] [place] 07/02/2021 TORCH Respiratory Panel Tadeno not detected detected not detected Final [facility] ([facility]): [address], [place] [id number] not detected detected not detected Final [facility] ([facility]): 4 Hu , [place] Tcorohku1 not detected detected not detected Final [facility] ([facility]): 4 Hu , [place] Rqrquoz87 not detected detected not detected Final [facility] ([facility]): 4 Hu , [place] Tyofthw39 not detected detected not detected Final [facility] ([facility]): 4 Hu , [place] Tcorosars2 not detected detected not detected Final [facility] ([facility]): 4 Hu , [place] Thummet not detected detected not de tected Final [facility] ([facility]): 4 [facility] [place] Thumrhino detected detected not dete cted Final [facility] ([facility]): 4 Hu , [place] Tflua not detected detected not dete cted Final [facility] ([facility]): 4 Hu , [place] Tflub not detected detected not dete cted Final [facility] ([facility]): 4 Hu , [place] Tparaflu1 not detected detected not detected [facility] ([facility]): 4 [facility] [place] Tparaflu2 not detected detected not detected [facility] ([facility]): 4 [facility] [place] Tparaflu3 not detected detected not detected [facility] ([facility]): 4 Hu , [place] Tparaflu4 not detected detected not detected [facility] ([facility]): 4 [facility] [place] Trsv not detected detected not detec jina Final [facility] ([facility]): 4 Hu , [place] Tbordpara not detected detected not detected [facility] ([facility]): 4 [facility] [place] Tbord not detected detected not dete cted Final [facility] ([facility]): 4 Hu , [place] Tchlamypne not detected detected not detected [facility] ([facility]): 4 Hu , [place] Tmycpne not detected detected not de tected Final [facility] ([facility]): 4 [facility] 07/02/2021 CBC W/ Auto Diff Wbc 8.3 K/mm3 4.0-10. 0 K/mm3 [facility] ([facility]): 4 [facility] Rbc 4.10 M/mm3 4.00-5.50 M/mm3 [facility] ([facility]): 4 [facility] Low Hgb 10.2 gm/dL 12.0-16.0 gm/dL [facility] ([facility]): 4 [facility] Low Hct 30.9 % 36.0-48.8 % Final [facility] ([facility]): 4 [facility] Low Mcv 75.4 fL 80-96 fL Final [facility]): 4 [facility] Mch 24.9 pg 27.0-31.0 pg Final [facility] ([facility]): 4 [facility] Mchc 33.0 g/dL 32.0-36.0 g/dL Final [facility] ([facility]): 4 [facility] High Rdw 14.8 % 10.0-14.5 % Final [facility] ([facility]): 4 [facility] Plt 336 K/mm3 172-450 K/mm3 [facility] ([facility]): 4 [facility] Mpv 10.2 fL 9.0-13.0 fL Final [facility] ([facility]): 4 [facility] High Gr% 88.9 % 50-80.0 % Final [facility]): 4 [facility] High Ig% 0.4 % 0.0-0.2 % [facility] 4 [facility] Low Ly% 8.8 % 25.0-50.0 % Final [facility] ([facility]): 4 [facility] Low Mo% 1.8 % 2.0-10.0 % Final [facility] ([facility]): 4 [facility] Eo% 0.0 % 0-5.0 % Final [facility] ([facility]): 4 [facility] Ba% 0.1 % 0.0-2.0 % Final [facility]): 4 [facility] Gr# 7.4 K/mm3 2.0-8.00 K/mm3 [facility] ([facility]): 4 [facility] Ig# 0.0 K/mm3 0.0-0.2 K/mm3 [facility] ([facility]): 4 [facility] Low Ly# 0.7 K/mm3 1.0-5.0 K/mm3 [facility] ([facility]): 4 [facility] Mo# 0.2 K/mm3 0.10-1.20 K/mm3 [facility] ([facility]): 4 [facility] Eo# 0.0 K/mm3 0.0-0.5 K/mm3 [facility] ([facility]): 4 [facility] Ba# 0.0 K/mm3 0.0-0.2 K/mm3 [facility] ([facility]): 4 [facility] 07/02/2021 Gas Panel, Venous Blood High Vph 7.44 7.3 1-7.41 [facility] ([facility]): 4 [facility] Low Vpco2 35.1 mmHg 41-[address] [facility] ([facility]): 4 [facility] High Vpo2 89 mmHg 35-42 mmHg [facility] ([facility]): 4 [facility] High Vo2 Sat 97.3 % 68-77 % [facility] ([facility]): 4 [facility] Low Vhco3 23.5 mEq/L 24.0-25.0 mEq/L [facility] ([facility]): 4 [facility] Vbe 0.1 -3.0-3.0 [facility] ([facility]): 4 [facility] Vctco2 24.6 mmol/L 23.0-32.0 mmol/L [facility] ([facility]): 4 [facility] 07/02/2021 CMP, Serum or Plasma High Glu 164 mg/dL 74- 106 mg/dL [facility] ([facility]): 4 [facility] Low Bun 5 mg/dL 7-18 mg/dL [facility] ([facility]): 4 [facility] Cre 0.72 mg/dL 0.6-1.0 mg/dL [facility] ([facility]): 4 [facility] Na 141 mmol/L 136-145 mmol/L [facility] ([facility]): 4 [facility] K 3.7 mmol/L 3.5-5.1 mmol/L [facility] ([facility]): 4 [facility] Cl 104 mmol/L 98-107 mmol/L [facility] ([facility]): 4 [facility] Co2 25 mmol/L 21-32 mmol/L [facility] ([facility]): 4 [facility] Ca 8.7 mg/dL 8.5-10.1 mg/dL [facility] ([facility]): 4 [facility] Gap 12.0 mmol/L 5-12 mmol/L [facility] ([facility]): 4 [facility] Gfr >90 mL/min [facility] ([facility]): 4 [facility] Low Ast 14 U/L 15-37 U/L Final [facility]): 4 [facility] Alt 31 U/L 12-78 U/L Final [facility] ([facility]): 4 [facility] Alk 113 U/L 46-116 U/L [facility] ([facility]): 4 [facility] Low Tbili < 0.1 mg/dL 0.2-1.0 mg/dL Drea l [facility] ([facility]): 4 [facility] Tp 6.9 g/dL 6.4-8.2 g/dL [facility] ([facility]): 4 [facility] Low Alb 3.0 gm/dL 3.4-5.0 gm/dL [facility] ([facility]): 4 [facility] 07/02/2021 C Reactive Protein High Crp 55.8 mg/L 0.0-3 .0 mg/L [facility] ([facility]): [address] [place] [address] 04/02/2021 CBC W/ Auto Diff High White Blood Count 13.0 10 4.0-10.0 10 Final [facility]: 0 [facility] Normal Red Blood Count 4.29 10 4.00-5.40 10 [facility]: [address] [place] [address] Low Hemoglobin 10.4 g/dL 12.0-15.5 g/dL Final [facility]: [address] [place] [address] Low Hematocrit 33.8 % 36.0-47.0 % [facility]: [address] [place] [address] Low Mean Corpuscular Volume 78.8 fL 80.0 -96.0 fL [facility]: [address] [place] [address] Low Mean Corpuscular Hemoglobin 24.2 pg 27.0-33.0 pg [facility]: [address] [place] [address] Low Mean Corpuscular HGB Conc 30.8 g/dL 32.0-36.5 g/dL [facility]: [address] [place] [address] High Red Cell Distribution Width 15.7 % 1 1.5-14.5 % [facility]: [address] [place] [address] Normal Platelet Count, Automated 361 10 150 -450 10 [facility]: 0 [facility] Normal Neutrophils % 62.9 % 36.0-66.0 % [facility]: 830 [facility] Normal Lymph % 28.4 % 24.0-44.0 % [facility]: 830 [facility] Normal [place] % 5.2 % 2.0-8.0 % Final [facility]: 0 [facility] Normal Eos % 2.5 % 0.0-3.0 % [facility]: 0 [facility] Normal Baso % 0.5 % 0.0-1.0 % [facility]: [address] [place] [address] Normal Immature Granulocyte % 0.5 % 0-3.0 % [facility]: 830 [facility] Normal Nucleated Red Blood Cell % 0.0 % 0- 0 % [facility]: [address] [place] [address] Normal Neutrophils # 8.2 10 1.5-8.5 10 [facility]: 0 [facility] Normal Lymph # 3.7 10 1.5-5.0 10 [facility]: [address] [place] [address] Normal [place] # 0.7 10 0.0-0.8 10 [facility]: [address] [place] [address] Normal Eos # 0.3 10 0.0-0.5 10 [facility]: 0 [facility] Normal Baso # 0.1 10 0.0-0.2 10 [facility]: [address] [place] [address] 04/02/2021 PT/INR Normal Prothrombin Time 13.6 secon ds 12.5-14.3 seconds [facility]: [address] [place] [address] Normal Inr 1.02 [facility]: [address] [place] [address] 04/02/2021 Partial Thromboplastin Time Normal Partial Thromboplastin Time 34.5 seconds 24.2-38.5 seconds [facility] nter: [address] [place] [address] 04/02/2021 Cardiovascular Assessment Panel, Serum Normal CPK Creatine Phosphokinase 155 U/L 26-192 U/L [facility] Center: [address] [place] [address] Normal CK-mb Value Mass < 1.0 NG/mL <3.6 NG /mL [facility]: [address] [place] [address] Normal mb/CK Relative Index 0.65 < or =4 [facility]: [address] [place] [address] Normal Troponin I < 0.02 NG/mL < 0.10 NG/mL [facility]: [address] [place] [address] 04/02/2021 Hepatic Function Panel, Serum Normal AST/SG OT 12 U/L 7-37 U/L [facility]: [address] [place] [address] Normal ALT/SGPT 27 U/L 12-78 U/L [facility]: [address] [place] [address] High Alkaline Phosphatase 132 U/L 45-117 U/L [facility]: [address] [place] [address] Low Bilirubin,total 0.1 mg/dL 0.2-1.0 mg /dL [facility]: [address] [place] [address] Normal Bilirubin,direct < 0.1 mg/dL 0.0-0.2 mg/dL [facility]: [address] [place] [address] Normal Total Protein 6.4 gm/dL 6.4-8.2 gm/d L [facility]: [address] [place] [address] Normal Albumin 3.2 gm/dL 3.2-5.2 gm/dL [facility]: [address] [place] [address] Low Albumin/globulin Ratio 1.0 1.2-2. 2 [facility]: [address] [place] [address] 04/02/2021 C-reactive Protein, Qualitative, Serum Normal Glucose, Fasting 88 mg/dL 70-100 mg/dL [facility] nter: [address] [place] [address] Normal Blood Urea Nitrogen 7 mg/dL 7-18 mg/ dL [facility]: [address] [place] [address] Normal Creatinine for GFR 0.71 mg/dL 0.55-1 .30 mg/dL [facility]: [address] [place] [address] Normal Glomerular Filtration Rate > 60.0 >6 0 [facility]: [address] [place] [address] Normal Sodium Level 142 mEq/L 136-145 mEq/L [facility]: [address] [place] [address] Normal Potassium Serum 3.6 mEq/L 3.5-5.1 mE q/L [facility]: [address] [place] [address] High Chloride Level 111 mEq/L 98-107 mEq/ L [facility]: [address] [place] [address] Normal Carbon Dioxide Level 28 mEq/L 21-32 mEq/L [facility]: [address] [place] [address] Low Anion Gap 3 mEq/L 8-16 mEq/L [facility]: 830 [facility] Low Calcium Level 8.3 mg/dL 8.5-10.1 mg/ dL [facility]: 830 [facility] 04/02/2021 Amylase, Serum or Plasma Normal Amylase 30 U/L 25-115 U/L [facility]: 830 [facility] 04/02/2021 Lipase, Serum or Plasma Low Lipase 45 U/L 7 3-393 U/L [facility]: 830 [facility] 04/02/2021 Ethanol, Blood Normal Ethyl Alcohol (Ethano l) < 0.003 % 0.000- 0.010 % [facility]: 83 0 [facility] 04/02/2021 Lactic Acid, Serum or Plasma Normal Lactic Acid Sepsis Protocol 1.6 mmol/L 0.4-2.0 mmol/L [facility] Center: 830 [facility] 04/02/2021 Type + Screen, Serum Normal Blood Type O posit socrates [facility]: 830 [facility] Normal Ab Screen (Indirect Colin)vis negat socrates [facility]: 830 [facility] 04/02/2021 UA W/ Reflex to Culture Normal Appearance, Urine Rfx clear clear [facility]: 83 0 [facility] Normal Color, Urine Rfx yellow yellow [facility]: 830 [facility] Normal pH,urine Rfx 6.0 units 5.0-9.0 units [facility]: 830 [facility] Normal Specific [place] Ur Auto Rfx 1.018 1.002-1.035 [facility]: 830 [facility] Normal Protein, Urine Auto Rfx negative mg/ dL negative mg/dL [facility]: 830 [facility] Normal Glucose, Urine (UA) Auto Rfx n egative mg/dL negative mg/dL [facility]: 830 [facility] Normal Ketone, Urine Auto Rfx negative mg/d L negative mg/dL [facility]: 830 [facility] Normal Urobilinogen, Urine Auto Rfx 0.2 mg/ dL 0.0-2.0 mg/dL [facility]: 830 [facility] Normal Bilirubin, Urine Auto Rfx negative n egative [facility]: 830 [facility] Normal Nitrite, Urine Auto Rfx negative neg ative [facility]: 830 [facility] Normal Leukocyte Esterase Ur Auto Rfx negat socrates negative [facility]: 830 [facility] Normal Blood, Urine Blood Rfx negative nega tive [facility]: 830 [facility] Normal WBC, Urine Auto Rfx 0 /hpf 0-3 /hpf [facility]: 830 [facility] Normal RBC, Urine Auto Rfx 0 /hpf 0-3 /hpf [facility]: 830 [facility] Normal Bacteria, Urine Auto Rfx negative ne gative [facility]: 830 [facility] Normal Squam Epithelial Cell Ur Aurfx 3 /hp f 0-6 /hpf [facility]: 830 [facility] Normal Mucus, Urine Rfx small negative [facility]: 830 [facility] Normal Hyaline Cast, Urine Auto Rfx 0 /lpf 0-1 /lpf [facility]: 830 [facility] 04/02/2021 Drug Screen, Urine Normal Amphetamines Leve l Urine negative negative [facility]: 83 0 [facility] High Barbiturates Urine positive negative [facility]: 830 [facility] Normal Benzodiazepines Urine negative negat socrates [facility]: 830 [facility] High Cannabinoids Urine positive negative [facility]: 830 [facility] Normal Cocaine Metabolite Urine negative ne gative [facility]: 830 [facility] Normal Methadone Urine negative negative Fi [facility]: 8[address] [facility] Normal Opiates Urine negative negative [facility]: 830 [facility] Normal Phencyclidine Urine negative negativ e [facility]: 830 [facility] 03/07/2021 CBC W/ Auto Diff Blood venous No observation re corded. [facility]: [address] [facility] [address], [place] 03/07/2021 TSH + Free T4, Serum Blood venous No observa tion recorded. 03/07/2021 CMP, Serum or Plasma Blood venous No observa tion recorded. 03/07/2021 Lipid Panel, Serum Blood venous No observation recorded. [facility]: [address] [facility] [address], [place] 03/07/2021 HbA1C (Hemoglobin a1C), Blood Blood venous No observation recorded. [facility]: [address] [facility] [address], [place] 03/07/2021 Vitamin D, 25-Hydroxy, Total, Serum Blood venous No observation recorded. [facility]: [address] [facility] [address], [place] 03/07/2021 Lupus Anticoagulant, Plasma Blood venous No observation recorded. [facility]: [address] [facility] [address], [place] 03/05/2021 Levetiracetam, Serum Normal Levetiracetam ( Keppra) 10.2 ug/mL 10.0-40.0 ug/mL [facility]: 83 0 [facility] 02/20/2021 Istat Chem8+ Panel Low Istat HCT 37.0 % 38. 0-51.0 % [facility]: 830 [facility] Normal Istat Glucose 94 mg/dL 70-105 mg/dL [facility]: 830 [facility] Normal Istat Sodium 140 mEq/L 136-145 mEq/L [facility]: 830 [facility] Normal Istat Potassium 4.3 mEq/L 3.5-5.1 mE q/L [facility]: 830 [facility] Normal Istat Ca++ 5.0 mg/dL 4.5-5.3 mg/dL [facility]: 8[address] [facility] Normal Istat Chloride 107 mEq/L 98-109 mEq/ L [facility]: 0 [facility] Normal Istat CO2 26.0 mm/L 23.0-27.0 mm/L [facility]: [address] [facility] Normal Istat BUN 9 mg/dL 8-26 mg/dL [facility]: [address] [place] [address] Low Istat Creatinine 0.5 mg/dL 0.6-1.3 m g/dL [facility]: [address] [place] [address] 02/20/2021 CBC W/ Auto Diff High White Blood Count 12.7 10 4.0-10.0 10 [facility]: [address] [place] [address] Normal Red Blood Count 4.60 10 4.00-5.40 10 [facility]: [address] [place] [address] Low Hemoglobin 11.4 g/dL 12.0-15.5 g/dL [facility]: [address] [place] [address] Normal Hematocrit 37.4 % 36.0-47.0 % [facility]: [address] [place] [address] Normal Mean Corpuscular Volume 81.3 fL 80.0 -96.0 fL [facility]: [address] [place] [address] Low Mean Corpuscular Hemoglobin 24.8 pg 27.0-33.0 pg [facility]: [address] [place] [address] Low Mean Corpuscular HGB Conc 30.5 g/dL 32.0-36.5 g/dL [facility]: [address] [place] [address] High Red Cell Distribution Width 15.2 % 1 1.5-14.5 % [facility]: [address] [place] [address] Normal Platelet Count, Automated 303 10 150 -450 10 [facility]: 0 [facility] Normal Neutrophils % 63.4 % 36.0-66.0 % [facility]: [address] [facility] Normal Lymph % 28.5 % 24.0-44.0 % Final [facility]: 830 [facility] Normal [place] % 5.6 % 2.0-8.0 % Final [facility]: 830 [facility] Normal Eos % 1.7 % 0.0-3.0 % [facility]: 8[address] [facility] Normal Baso % 0.4 % 0.0-1.0 % Final [facility]: 830 [facility] Normal Immature Granulocyte % 0.4 % 0-3.0 % [facility]: 830 [facility] Normal Nucleated Red Blood Cell % 0.0 % 0- 0 % [facility]: 830 [facility] Normal Neutrophils # 8.1 10 1.5-8.5 10 [facility]: 830 [facility] Normal Lymph # 3.6 10 1.5-5.0 10 [facility]: 8[address] [facility] Normal [place] # 0.7 10 0.0-0.8 10 [facility]: 8[address] [facility] Normal Eos # 0.2 10 0.0-0.5 10 [facility]: 8[address] [facility] Normal Baso # 0.1 10 0.0-0.2 10 [facility]: 830 [facility] 02/20/2021 ESR (Erythrocyte Sedimentation Rate), Blood Hig h Erythrocyte Sedimentation Rate 36 mm/HR 0-20 mm/HR [facility] Center: 0 [facility] 02/20/2021 Hepatic Function Panel, Serum Normal AST/SG OT 12 U/L 7-37 U/L [facility]: 0 [facility] Normal ALT/SGPT 45 U/L 12-78 U/L [facility]: 0 [facility] High Alkaline Phosphatase 166 U/L 45-117 U/L [facility]: [address] [place] [address] Low Bilirubin,total < 0.1 mg/dL 0.2-1.0 mg/dL [facility]: [address] [place] [address] Normal Bilirubin,direct < 0.1 mg/dL 0.0-0.2 mg/dL [facility]: [address] [place] [address] Normal Total Protein 6.6 gm/dL 6.4-8.2 gm/d L [facility]: [address] [place] [address] Normal Albumin 3.4 gm/dL 3.2-5.2 gm/dL [facility]: [address] [place] [address] Low Albumin/globulin Ratio 1.1 1.2-2. 2 [facility]: [address] [place] [address] 02/20/2021 C Reactive Protein, QN, Serum or Plasma High C Reactive Protein Quantitativ 2.71 mg/dL 0.00-0.30 mg/dL [facility] Center: [address] [place] [address] 01/05/2021 Urinalysis, Dipstick, Auto No observation recorded. 01/05/2021 Test, Urine No observation kesha rded. 12/06/2020 Cbc High White Blood Count 12.8 10 4.0-10 .0 10 [facility]: [address] [place] [address] Normal Red Blood Count 4.47 10 4.00-5.40 10 [facility]: [address] [place] [address] Low Hemoglobin 11.4 g/dL 12.0-15.5 g/dL [facility]: [address] [place] [address] Normal Hematocrit 36.5 % 36.0-47.0 % [facility]: [address] [place] [address] Normal Mean Corpuscular Volume 81.7 fL 80.0 -96.0 fL [facility]: [address] [place] [address] Low Mean Corpuscular Hemoglobin 25.5 pg 27.0-33.0 pg [facility]: [address] [place] [address] Low Mean Corpuscular HGB Conc 31.2 g/dL 32.0-36.5 g/dL [facility]: 830 [facility] Normal Red Cell Distribution Width 13.8 % 1 1.5-14.5 % [facility]: 830 [facility] Normal Platelet Count, Automated 350 10 150 -450 10 [facility]: 830 [facility] Normal Nucleated Red Blood Cell % 0.0 % 0- 0 % [facility]: 830 [facility] 12/05/2020 CBC W/ Auto Diff High White Blood Count 16.0 10 4.0-10.0 10 [facility]: 830 [facility] Normal Red Blood Count 4.80 10 4.00-5.40 10 [facility]: 830 [facility] Normal Hemoglobin 12.1 g/dL 12.0-15.5 g/dL [facility]: 830 [facility] Normal Hematocrit 39.0 % 36.0-47.0 % [facility]: 830 [facility] Normal Mean Corpuscular Volume 81.3 fL 80.0 -96.0 fL [facility]: 830 [facility] Low Mean Corpuscular Hemoglobin 25.2 pg 27.0-33.0 pg [facility]: 830 [facility] Low Mean Corpuscular HGB Conc 31.0 g/dL 32.0-36.5 g/dL [facility]: 830 [facility] Normal Red Cell Distribution Width 13.8 % 1 1.5-14.5 % [facility]: 830 [facility] Normal Platelet Count, Automated 370 10 150 -450 10 [facility]: 8[address] [facility] High Neutrophils % 74.0 % 36.0-66.0 % [facility]: 8[address] [facility] Low Lymph % 19.3 % 24.0-44.0 % [facility]: 8[address] [facility] Normal [place] % 3.7 % 0.0-5.0 % [facility]: 8[address] [facility] Normal Eos % 2.1 % 0.0-3.0 % [facility]: 8[address] [facility] Normal Baso % 0.5 % 0.0-1.0 % [facility]: 8[address] [facility] Normal Immature Granulocyte % 0.4 % 0-3.0 % [facility]: 8[address] [facility] Normal Nucleated Red Blood Cell % 0.0 % 0- 0 % [facility]: 8[address] [facility] High Neutrophils # 11.8 10 1.5-8.5 10 [facility]: 8[address] [facility] Normal Lymph # 3.1 10 1.5-5.0 10 [facility]: 8[address] [facility] Normal [place] # 0.6 10 0.0-0.8 10 [facility]: 8[address] [facility] Normal Eos # 0.3 10 0.0-0.5 10 [facility]: 8[address] [facility] Normal Baso # 0.1 10 0.0-0.2 10 [facility]: 830 [facility] 12/05/2020 Hepatic Function Panel, Serum Low AST/SG OT 6 U/L 7-37 U/L [facility]: 8[address] [facility] Normal ALT/SGPT 19 U/L 12-78 U/L [facility]: 8[address] [facility] High Alkaline Phosphatase 136 U/L 45-117 U/L [facility]: 8[address] [facility] Low Bilirubin,total < 0.1 mg/dL 0.2-1.0 mg/dL [facility]: 0 [facility] Normal Bilirubin,direct < 0.1 mg/dL 0.0-0.2 mg/dL [facility]: 8[address] [facility] Normal Total Protein 7.4 gm/dL 6.4-8.2 gm/d L [facility]: 8[address] [facility] Normal Albumin 3.7 gm/dL 3.2-5.2 gm/dL [facility]: 0 [facility] Low Albumin/globulin Ratio 1.0 1.2-2. 2 [facility]: 830 [facility] 12/05/2020 BMP, Serum or Plasma Normal Glucose, Fastin g 90 mg/dL 70-100 mg/dL [facility]: 83 0 [facility] Normal Blood Urea Nitrogen 15 mg/dL 7-18 mg /dL [facility]: [address] [place] [address] Normal Creatinine for GFR 0.83 mg/dL 0.55-1 .30 mg/dL [facility]: [address] [place] [address] Normal Glomerular Filtration Rate > 60.0 >6 0 [facility]: 0 [facility] Normal Sodium Level 141 mEq/L 136-145 mEq/L [facility]: 0 [facility] Normal Potassium Serum 3.6 mEq/L 3.5-5.1 mE q/L [facility]: 0 [facility] High Chloride Level 110 mEq/L 98-107 mEq/ L [facility]: 0 [facility] Normal Carbon Dioxide Level 21 mEq/L 21-32 mEq/L [facility]: 0 [facility] Normal Anion Gap 10 mEq/L 8-16 mEq/L [facility]: 0 [facility] Normal Calcium Level 9.3 mg/dL 8.5-10.1 mg/ dL [facility]: 0 [facility] 12/05/2020 Lipase, Serum or Plasma Normal Lipase 165 U/L 73-393 U/L [facility]: 0 [facility] 12/05/2020 PT/INR High Prothrombin Time 23.9 secon ds 12.5-14.3 seconds [facility]: 0 [facility] Normal Inr 2.09 [facility]: 0 [facility] 12/05/2020 Partial Thromboplastin Time High Partial Thromboplastin Time 56.4 seconds 24.2-38.5 seconds [facility] nter: 8[address] [facility] 12/05/2020 Type + Screen, Serum Normal Blood Type O posit socrates [facility]: 830 [facility] Normal Ab Screen (Indirect Colin)vis negat socrates [facility]: 830 [facility] 12/05/2020 UA W/ Reflex to Culture Normal Appearance, Urine Rfx clear clear [facility]: 83 0 [facility] Normal Color, Urine Rfx colorless yellow Fi [facility]: 8[address] [facility] Normal pH,urine Rfx 5.0 units 5.0-9.0 units [facility]: 830 [facility] Normal Specific [place] Ur Auto Rfx 1.036 1.002-1.035 [facility]: 830 [facility] Normal Protein, Urine Auto Rfx negative mg/ dL negative mg/dL [facility]: 8[address] [facility] Normal Glucose, Urine (UA) Auto Rfx n egative mg/dL negative mg/dL [facility]: 830 [facility] Normal Ketone, Urine Auto Rfx negative mg/d L negative mg/dL [facility]: 8[address] [facility] Normal Urobilinogen, Urine Auto Rfx 0.2 mg/ dL 0.0-2.0 mg/dL [facility]: 8[address] [facility] Normal Bilirubin, Urine Auto Rfx negative n egative [facility]: 8[address] [facility] Normal Nitrite, Urine Auto Rfx negative neg ative [facility]: 830 [facility] Normal Leukocyte Esterase Ur Auto Rfx negat socrates negative [facility]: 8[address] [facility] High Blood, Urine Blood Rfx 1+ negati ve [facility]: 8[address] [facility] High WBC, Urine Auto Rfx 4 /hpf 0-3 /hpf [facility]: 830 [facility] Normal RBC, Urine Auto Rfx 0 /hpf 0-3 /hpf [facility]: 830 [facility] Normal Bacteria, Urine Auto Rfx negative ne gative [facility]: 830 [facility] Normal Squam Epithelial Cell Ur Aurfx 3 /hp f 0-6 /hpf [facility]: 830 [facility] Normal Mucus, Urine Rfx small negative [facility]: 830 [facility] Normal Hyaline Cast, Urine Auto Rfx 0 /lpf 0-1 /lpf [facility]: 830 [facility] 11/28/2020 CBC W/ Auto Diff High White Blood Count 13.2 10 4.0-10.0 10 [facility]: 0 [facility] Normal Red Blood Count 4.71 10 4.00-5.40 10 [facility]: 830 [facility] Low Hemoglobin 11.9 g/dL 12.0-15.5 g/dL [facility]: 0 [facility] Normal Hematocrit 38.4 % 36.0-47.0 % [facility]: 0 [facility] Normal Mean Corpuscular Volume 81.5 fL 80.0 -96.0 fL [facility]: 0 [facility] Low Mean Corpuscular Hemoglobin 25.3 pg 27.0-33.0 pg [facility]: 830 [facility] Low Mean Corpuscular HGB Conc 31.0 g/dL 32.0-36.5 g/dL [facility]: 0 [facility] Normal Red Cell Distribution Width 14.0 % 1 1.5-14.5 % [facility]: 0 [facility] Normal Platelet Count, Automated 298 10 150 -450 10 [facility]: 0 [facility] Normal Neutrophils % 61.2 % 36.0-66.0 % Fin al [facility]: 830 [facility] Normal Lymph % 28.6 % 24.0-44.0 % Final [facility]: 830 [facility] Normal [place] % 3.9 % 0.0-5.0 % [facility]: 8[address] [facility] High Eos % 5.5 % 0.0-3.0 % [facility]: 8[address] [facility] Normal Baso % 0.4 % 0.0-1.0 % [facility]: 8[address] [facility] Normal Immature Granulocyte % 0.4 % 0-3.0 % [facility]: 8[address] [facility] Normal Nucleated Red Blood Cell % 0.0 % 0- 0 % [facility]: 8[address] [facility] Normal Neutrophils # 8.1 10 1.5-8.5 10 [facility]: 8[address] [facility] Normal Lymph # 3.8 10 1.5-5.0 10 [facility]: 8[address] [facility] Normal [place] # 0.5 10 0.0-0.8 10 [facility]: 8[address] [facility] High Eos # 0.7 10 0.0-0.5 10 [facility]: 8[address] [facility] Normal Baso # 0.1 10 0.0-0.2 10 [facility]: 830 [facility] 11/28/2020 Urinalysis, Dipstick Normal Appearance, Urine hazy clear [facility]: 8[address] [facility] High Color, Urine red yellow [facility]: 0 [facility] Normal pH,urine 7.0 units 5.0-9.0 units [facility]: 830 [facility] Normal Specific [place] Urine Auto 1.005 1 .002-1.035 [facility]: 0 [facility] High Protein, Urine Auto 1+ mg/dL negativ e mg/dL [facility]: 830 [facility] Normal Glucose, Urine (UA) Auto negative mg /dL negative mg/dL [facility]: [address] [facility] Normal Ketone, Urine Auto negative mg/dL ne gative mg/dL [facility]: [address] [facility] Normal Urobilinogen, Urine Auto 0.2 mg/dL 0 .0-2.0 mg/dL [facility]: [address] [facility] Normal Bilirubin, Urine Auto negative negat socrates [facility]: [address] [facility] Normal Nitrite, Urine Auto negative negativ e [facility]: [address] [facility] High Leukocyte Esterase, Urine Auto 1+ negative [facility]: [address] [facility] High Blood, Urine Blood 3+ negative F [facility]: [address] [facility] High WBC, Urine Auto 4 /hpf 0-3 /hpf [facility]: [address] [facility] High RBC, Urine Auto tntc /hpf 0-3 /hpf F [facility]: [address] [facility] Normal Bacteria, Urine Auto negative negati ve [facility]: [address] [facility] Normal Squamous Epithelial Cell Ur AU 1 /hp f 0-6 /hpf [facility]: [address] [facility] Normal Hyaline Cast, Urine Auto 0 /lpf 0-1 /lpf [facility]: [address] [facility] 11/28/2020 PT/INR Normal Prothrombin Time 13.5 secon ds 12.5-14.3 seconds [facility]: [address] [facility] Normal Inr 1.01 [facility]: [address] [facility] 11/28/2020 Hepatic Function Panel, Serum Normal AST/SG OT 14 U/L 7-37 U/L [facility]: [address] [facility] Normal ALT/SGPT 29 U/L 12-78 U/L [facility]: [address] [facility] High Alkaline Phosphatase 141 U/L 45-117 U/L [facility]: [address] [facility] Low Bilirubin,total 0.1 mg/dL 0.2-1.0 mg /dL [facility]: [address] [facility] Normal Bilirubin,direct < 0.1 mg/dL 0.0-0.2 mg/dL [facility]: [address] [facility] Normal Total Protein 6.8 gm/dL 6.4-8.2 gm/d L [facility]: [address] [facility] Normal Albumin 3.3 gm/dL 3.2-5.2 gm/dL Drea l [facility]: 0 [facility] Low Albumin/globulin Ratio 0.9 1.2-2. 2 [facility]: [address] [place] [address] 11/28/2020 BMP, Serum or Plasma Normal Glucose, Fastin g 100 mg/dL 70-100 mg/dL [facility]: 83 0 [facility] Normal Blood Urea Nitrogen 10 mg/dL 7-18 mg /dL [facility]: 0 [facility] Normal Creatinine for GFR 0.60 mg/dL 0.55-1 .30 mg/dL [facility]: [address] [place] [address] Normal Glomerular Filtration Rate > 60.0 >6 0 [facility]: [address] [facility] Normal Sodium Level 140 mEq/L 136-145 mEq/L [facility]: 0 [facility] Normal Potassium Serum 3.6 mEq/L 3.5-5.1 mE q/L [facility]: 0 [facility] Normal Chloride Level 106 mEq/L 98-107 mEq/ L [facility]: 0 [facility] Normal Carbon Dioxide Level 25 mEq/L 21-32 mEq/L [facility]: 0 [facility] Normal Anion Gap 9 mEq/L 8-16 mEq/L [facility]: [address] [place] [address] Normal Calcium Level 9.0 mg/dL 8.5-10.1 mg/ dL [facility]: [address] [place] [address] 11/28/2020 Type + Screen, Serum Normal Blood Type O posit socrates [facility]: [address] [place] [address] Normal Ab Screen (Indirect Colin)vis negat socrates [facility]: [address] [place] [address] 11/28/2020 Culture, Urine URINE,CLEAN CATCH No observation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
--- OUTSIDE RECORDS SUMMARY | 2021-10-04 04:48 | CCD ---
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 RxNorm Banana Anaphylaxis Active 5309199 RxNorm Latex Active 8745 RxNorm Promethazine Rash [...] TABLET BY MOUTH TWICE A DAY Completed ghzlonszgd-ybgeixsitxjla-iyrryyfy 50 mg- 300 mg-40 mg capsule TAKE ONE CAPSULE BY MOUTH EVERY 4 HOURS NEEDED Completed 03/01/2021 zrpkkeetro-cdnqhezceqlvr-pbylcghs 50 mg-325 mg-40 mg tablet Acti ve [...] Compl eted 09/13/2020 fluconazole 150 mg tablet Active Not av [...] Information n ot available 11/08/2020 Electrocardiogram [facility] [address] [place] [address] (Work Place) 08/08/2021 MRI, Brain, W/o Contrast [facility] Radio logy [address] [place] [address] (Work Place) Notes: section x5, Involuntary D&C, Appendectomy, Tonsillectomy, Gallbladder Results Lab Results Date Name Specimen Result Interpretation Description Value Range Status Address 08/09/2021 Urinalysis, Dipstick Normal Appearance, Urine hazy clear [facility]: [address] [facility] Normal Color, Urine yellow yellow [facility]: [address] [facility] Normal pH,urine 5.0 units 5.0-9.0 units [facility]: 0 [facility] Normal Specific [place] Urine Auto 1.028 1 .002-1.035 [facility]: 0 [facility] Normal Protein, Urine Auto negative mg/dL n egative mg/dL [facility]: [address] [facility] Normal Glucose, Urine (UA) Auto negative mg /dL negative mg/dL [facility]: [address] [facility] Normal Ketone, Urine Auto negative mg/dL ne gative mg/dL [facility]: 0 [facility] Normal Urobilinogen, Urine Auto 0.2 mg/dL 0 .0-2.0 mg/dL [facility]: 0 [facility] Normal Bilirubin, Urine Auto negative negat socrates [facility]: [address] [facility] Normal Nitrite, Urine Auto negative negativ e [facility]: [address] [facility] High Leukocyte Esterase, Urine Auto 1+ negative [facility]: [address] [facility] Normal Blood, Urine Blood negative negative [facility]: [address] [facility] Normal WBC, Urine Auto 2 /hpf 0-3 /hpf [facility]: [address] [facility] Normal RBC, Urine Auto 1 /hpf 0-3 /hpf [facility]: [address] [facility] Normal Bacteria, Urine Auto negative negati ve [facility]: [address] [facility] Normal Squamous Epithelial Cell Ur AU 2 /hp f 0-6 /hpf [facility]: [address] [facility] Normal Mucus, Urine small negative [facility]: [address] [facility] Normal Hyaline Cast, Urine Auto 0 /lpf 0-1 /lpf [facility]: [address] [facility] 08/09/2021 Protein, Total, Urine High Total Protein,random Urine 22.8 mg/dL 0.0-12.0 mg/dL [facility] nter: [address] [facility] 08/09/2021 CMP, Serum or Plasma Normal Glucose, Fastin g 100 mg/dL 70-100 mg/dL [facility]: [address] [facility] Normal Blood Urea Nitrogen 7 mg/dL 7-18 mg/ dL [facility]: [address] [facility] Normal Creatinine for GFR 0.64 mg/dL 0.55-1 .30 mg/dL [facility]: [address] [facility] Normal Glomerular Filtration Rate > 60.0 >6 0 [facility]: [address] [facility] Normal Sodium Level 142 mEq/L 136-145 mEq/L [facility]: [address] [facility] Normal Potassium Serum 4.3 mEq/L 3.5-5.1 mE q/L [facility]: [address] [facility] High Chloride Level 109 mEq/L 98-107 mEq/ L [facility]: [address] [facility] Normal Carbon Dioxide Level 27 mEq/L 21-32 mEq/L [facility]: [address] [facility] Low Anion Gap 6 mEq/L 8-16 mEq/L [facility]: [address] [facility] Normal Calcium Level 8.7 mg/dL 8.5-10.1 mg/ dL [facility]: [address] [facility] Normal AST/SGOT 7 U/L 7-37 U/L [facility]: [address] [facility] Normal ALT/SGPT 18 U/L 12-78 U/L [facility]: [address] [facility] High Alkaline Phosphatase 118 U/L 45-117 U/L [facility]: [address] [facility] Low Bilirubin,total 0.1 mg/dL 0.2-1.0 mg /dL [facility]: [address] [facility] Low Total Protein 6.1 gm/dL 6.4-8.2 gm/d L [facility]: [address] [facility] Low Albumin 3.1 gm/dL 3.2-5.2 gm/dL [facility]: 0 [facility] Low Albumin/globulin Ratio 1.0 1.2-2. 2 [facility]: [address] [facility] 08/09/2021 C3 (Complement), Serum or Plasma Normal Complement C3 167 mg/dL 90-180 mg/dL [facility] nter: [address] [facility] 08/09/2021 C4 (Complement), Serum or Plasma High Com plement C4 44 mg/dL 10-40 mg/dL [facility]: [address] [facility] 08/09/2021 C Reactive Protein, QN, Serum or Plasma High C Reactive Protein Quantitativ 2.21 mg/dL 0.00-0.30 mg/dL [facility] Center: [address] [facility] 08/09/2021 CBC W/ Auto Diff High White Blood Count 10.6 10 4.0-10.0 10 [facility]: [address] [facility] Low Red Blood Count 3.87 10 4.00-5.40 10 [facility]: [address] [facility] Low Hemoglobin 9.1 g/dL 12.0-15.5 g/dL F inal [facility]: [address] [facility] Low Hematocrit 30.2 % 36.0-47.0 % [facility]: [address] [place] [address] Low Mean Corpuscular Volume 78.0 fL 80.0 -96.0 fL [facility]: [address] [place] [address] Low Mean Corpuscular Hemoglobin 23.5 pg 27.0-33.0 pg [facility]: [address] [place] [address] Low Mean Corpuscular HGB Conc 30.1 g/dL 32.0-36.5 g/dL [facility]: [address] [place] [address] High Red Cell Distribution Width 15.4 % 1 1.5-14.5 % [facility]: [address] [place] [address] Normal Platelet Count, Automated 425 10 150 -450 10 [facility]: 0 [facility] Normal Neutrophils % 63.9 % 36.0-66.0 % Fin [facility]: [address] [facility] Normal Lymph % 25.7 % 24.0-44.0 % [facility]: [address] [facility] Normal [place] % 5.5 % 2.0-8.0 % [facility]: [address] [facility] High Eos % 3.8 % 0.0-3.0 % [facility]: 0 [facility] Normal Baso % 0.5 % 0.0-1.0 % [facility]: [address] [facility] Normal Immature Granulocyte % 0.6 % 0-3.0 % [facility]: [address] [facility] Normal Nucleated Red Blood Cell % 0.0 % 0- 0 % [facility]: [address] [facility] Normal Neutrophils # 6.8 10 1.5-8.5 10 [facility]: [address] [facility] Normal Lymph # 2.7 10 1.5-5.0 10 [facility]: [address] [facility] Normal [place] # 0.6 10 0.0-0.8 10 [facility]: [address] [facility] Normal Eos # 0.4 10 0.0-0.5 10 [facility]: 0 [facility] Normal Baso # 0.1 10 0.0-0.2 10 [facility]: [address] [place] [address] 08/09/2021 ESR (Erythrocyte Sedimentation Rate), Blood Hig h Erythrocyte Sedimentation Rate 59 mm/HR 0-20 mm/HR [facility] Center: [address] [place] [address] 08/07/2021 CBC W/ Auto Diff Normal White Blood Count 9.2 10 4.0-10.0 10 [facility]: [address] [place] [address] Normal Red Blood Count 4.47 10 4.00-5.40 10 [facility]: [address] [place] [address] Low Hemoglobin 10.6 g/dL 12.0-15.5 g/dL [facility]: [address] [place] [address] Low Hematocrit 35.0 % 36.0-47.0 % [facility]: [address] [place] [address] Low Mean Corpuscular Volume 78.3 fL 80.0 -96.0 fL [facility]: [address] [place] [address] Low Mean Corpuscular Hemoglobin 23.7 pg 27.0-33.0 pg [facility]: [address] [place] [address] Low Mean Corpuscular HGB Conc 30.3 g/dL 32.0-36.5 g/dL [facility]: [address] [place] [address] High Red Cell Distribution Width 15.3 % 1 1.5-14.5 % [facility]: [address] [facility] Normal Platelet Count, Automated 362 10 150 -450 10 [facility]: [address] [facility] Normal Neutrophils % 64.3 % 36.0-66.0 % [facility]: [address] [facility] Normal Lymph % 25.2 % 24.0-44.0 % [facility]: [address] [facility] Normal [place] % 6.0 % 2.0-8.0 % Final [facility]: [address] [facility] High Eos % 3.7 % 0.0-3.0 % [facility]: [address] [facility] Normal Baso % 0.5 % 0.0-1.0 % [facility]: [address] [facility] Normal Immature Granulocyte % 0.3 % 0-3.0 % [facility]: [address] [facility] Normal Nucleated Red Blood Cell % 0.0 % 0- 0 % [facility]: [address] [facility] Normal Neutrophils # 5.9 10 1.5-8.5 10 [facility]: [address] [facility] Normal Lymph # 2.3 10 1.5-5.0 10 [facility]: [address] [facility] Normal [place] # 0.6 10 0.0-0.8 10 [facility]: [address] [facility] Normal Eos # 0.3 10 0.0-0.5 10 [facility]: [address] [facility] Normal Baso # 0.1 10 0.0-0.2 10 [facility]: 0 [facility] 08/07/2021 BMP, Serum or Plasma Normal Glucose, Fastin g 92 mg/dL 70-100 mg/dL [facility]: [address] [facility] Normal Blood Urea Nitrogen 11 mg/dL 7-18 mg /dL [facility]: [address] [place] [address] Normal Creatinine for GFR 0.80 mg/dL 0.55-1 .30 mg/dL [facility]: [address] [place] [address] Normal Glomerular Filtration Rate > 60.0 >6 0 [facility]: [address] [place] [address] Normal Sodium Level 144 mEq/L 136-145 mEq/L [facility]: [address] [place] [address] Normal Potassium Serum 4.0 mEq/L 3.5-5.1 mE q/L [facility]: [address] [place] [address] High Chloride Level 113 mEq/L 98-107 mEq/ L [facility]: [address] [place] [address] Normal Carbon Dioxide Level 24 mEq/L 21-32 mEq/L [facility]: [address] [place] [address] Low Anion Gap 7 mEq/L 8-16 mEq/L [facility]: [address] [place] [address] Normal Calcium Level 8.8 mg/dL 8.5-10.1 mg/ dL [facility]: [address] [place] [address] 08/07/2021 Choriogonadotropin, Quant, Serum or Plasma Norm al HCG, Serum Quantitative < 1.0 mIU/mL [facility]: [address] [place] [address] 08/07/2021 Type + Screen, Serum Normal Blood Type O posit socrates [facility]: [address] [place] [address] Normal Ab Screen (Indirect Colni)vis negat socrates [facility]: [address] [place] [address] 08/07/2021 [place] ENDOCERVIX No observation recorded. [facility]: [address] [place] [address] 08/06/2021 CBC W/ Auto Diff Results Final [facility]: [address] [place] [address] Wbc 9.5 10^3/uL 4.2 - 11.0 10^3/uL [facility]: [address] [place] [address] Low Rbc 3.73 10^6/uL 4.20 - 5.40 10^6/u L [facility]: [address] [place] [address] Low Hemoglobin 9.0 g/dL 12.0 - 16.0 g/dL [facility]: [address] [place] [address] Low Hematocrit 28.6 % 37.0 - 47.0 % [facility]: [address] [place] [address] Low Mcv 76.7 fL 81.0 - [address] [facility] Hospital: [address] [place] [address] Mch 24.1 pg 27.0 - 34.0 pg C arthage [facility] Hospital: [address] [place] [address] Mchc 31.5 g/dL 31.0 - 36.0 g/dL [facility] Hospital: [address] [place] [address] Rdw 15.0 % 11.5 - 14.5 % [facility]: [address] [place] [address] Platelets 367 10^3/uL 150 - 450 10^3 /uL [facility]: [address] [place] [address] Mpv 9.6 fL 7.4 - 10.4 fL Car [facility] Hospital: [address] [place] [address] Neut 64.6 % 37.0 - 80.0 % [facility] Hospital: [address] [place], [place] [address]hage Lymph 26.4 % 25.0 - 40.0 % [facility] Hospital: [address] [place] [address] [place] 5.1 % 3.0 - 8.0 % [facility] Hospital: [address] [place] [address] Eos 3.2 % 0.0 - 7.0 % [facility] age [facility] Hospital: [address] [place] [address] Baso 0.4 % 0.0 - 2.5 % [facility] Hospital: [address] [place] [address] High %Ig 0.3 % 0.0 - 0.0 % [facility] age [facility] Hospital: [address] [place] [address] %Nrbc 0.0 % 0.0 - 0.0 % [facility] Hospital: [address] [place], [place] [address] #Neut 6.14 10^3/uL 2.00 - 6.90 10^3/ uL [facility]: [address] [place] [address] #Lymph 2.51 10^3/uL 0.60 - 3.40 10^3 /uL [facility]: [address] [place] [address] #[place] 0.48 10^3/uL 0.00 - 0.90 10^3/ uL [facility]: [address] [place] [address] #Eos 0.30 10^3/uL 0.00 - 0.70 10^3/u L [facility]: [address] [place] [address] #Baso 0.04 10^3/uL 0.00 - 0.20 10^3/ uL [facility]: [address] [place] [address] #Ig 0.03 10^3/uL 0.00 - 0.10 10^3/u L [facility]: [address] [place] [address] #Nrbc 0.00 10^3/uL 0.00 - 0.00 10^3/ uL [facility]: [address] [place] [address] Manual Diff not indicated [facility]: [address] [place] [address] RBC Morph not indicated [facility]: [address] [place] [address] 08/06/2021 CMP, Serum or Plasma Results Final [facility]: [address] [place] [address] Sodium 141 mEq/L 134 - 153 mEq/L [facility]: [address] [place] [address] Low Potassium 3.5 mEq/L 3.6 - 5.0 mEq/L [facility]: [address] [place] [address] High Chloride 108 mEq/L 98 - 107 mEq/L [facility]: [address] [place] [address] Co2 25 mEq/L 22 - 30 mEq/L C arthage [facility] Hospital: [address] [place] [address] High Glucose 103 mg/dL 70 - 99 mg/dL [facility]: [address] [place] [address] Bun 7 mg/dL 7 - 21 mg/dL [facility]: [address] [place] [address] Creatinine 0.8 mg/dL 0.7 - 1.5 mg/dL [facility]: [address] [place] [address] BUN/creat 9 8 - 27 [facility] Hospital: [address] [place] [address] Total Protein 6.3 g/dL 6.3 - 8.2 g/d L [facility]: [address] [place] [address] Albumin 4.0 g/dL 3.9 - 5.0 g/dL [facility]: [address] [place] [address] Low Globulin 2.3 gm/dL 2.4 - 3.2 gm/dL [facility]: [address] [place] [address] A/g Ratio 1.7 0.8 - 2.[address] [facility] Hospital: [address] [place] [address] Calcium 9.1 mg/dL 8.4 - 10.2 mg/dL [facility]: [address] [place] [address] Total Bili <0.7 mg/dL 0.2 - 1.3 mg/d L [facility] Hospital: [address] [place] [address] Alkaline Phos 114 U/L 38 - 126 U/L [facility]: [address] [place] [address] SGOT/AST 11 U/L 5 - 40 U/L [facility] Hospital: [address] [place] [address] SGPT/ALT 10 U/L 7 - 56 U/L [facility] Hospital: [address] [place] [address] Anion Gap 8.0 mmol/L 8.0 - 16.0 mmol /L [facility] Hospital: [address] [place] [address] Age 31 yrs [facility] Hospital: [address] [place] [address] Non-aa GFR >60 mL/min [facility]: [address] [place] [address] Afr Amer GFR >60 mL/min [facility]: [address] [place] [address] 07/31/2021 UA W/ Reflex to Culture Normal Appearance, Urine Rfx clear clear [facility]: [address] [facility] Normal Color, Urine Rfx colorless yellow Fi [facility]: [address] [facility] Normal pH,urine Rfx 7.0 units 5.0-9.0 units [facility]: [address] [facility] Normal Specific [place] Ur Auto Rfx 1.002 1.002-1.035 [facility]: [address] [facility] Normal Protein, Urine Auto Rfx negative mg/ dL negative mg/dL [facility]: [address] [facility] Normal Glucose, Urine (UA) Auto Rfx n egative mg/dL negative mg/dL [facility]: [address] [facility] Normal Ketone, Urine Auto Rfx negative mg/d L negative mg/dL [facility]: [address] [facility] Normal Urobilinogen, Urine Auto Rfx 0.2 mg/ dL 0.0-2.0 mg/dL [facility]: [address] [facility] Normal Bilirubin, Urine Auto Rfx negative n egative [facility]: [address] [facility] Normal Nitrite, Urine Auto Rfx negative neg ative [facility]: [address] [facility] Normal Leukocyte Esterase Ur Auto Rfx negat socrates negative [facility]: [address] [facility] High Blood, Urine Blood Rfx 2+ negati ve [facility]: [address] [facility] Normal WBC, Urine Auto Rfx 0 /hpf 0-3 /hpf [facility]: [address] [facility] Normal RBC, Urine Auto Rfx 1 /hpf 0-3 /hpf [facility]: [address] [facility] High Bacteria, Urine Auto Rfx 1+ nega tive [facility]: [address] [facility] Normal Squam Epithelial Cell Ur Aurfx 2 /hp f 0-6 /hpf [facility]: [address] [facility] Normal Hyaline Cast, Urine Auto Rfx 0 /lpf 0-1 /lpf [facility]: [address] [facility] 07/31/2021 CBC W/ Auto Diff Normal White Blood Count 8.4 10 4.0-10.0 10 [facility]: [address] [facility] Normal Red Blood Count 4.49 10 4.00-5.40 10 [facility]: [address] [facility] Low Hemoglobin 10.7 g/dL 12.0-15.5 g/dL [facility]: [address] [facility] Low Hematocrit 34.9 % 36.0-47.0 % [facility]: [address] [facility] Low Mean Corpuscular Volume 77.7 fL 80.0 -96.[address] [facility]: [address] [place] [address] Low Mean Corpuscular Hemoglobin 23.8 pg 27.0-33.[address] [facility]: [address] [place] [address] Low Mean Corpuscular HGB Conc 30.7 g/dL 32.0-36.5 g/dL Final [facility]: [address] [place] [address] High Red Cell Distribution Width 15.4 % 1 1.5-14.5 % [facility]: [address] [place] [address] Normal Platelet Count, Automated 303 10 150 -450 10 [facility]: 0 [facility] High Neutrophils % 66.6 % 36.0-66.0 % [facility]: 0 [facility] Low Lymph % 22.6 % 24.0-44.0 % [facility]: [address] [facility] Normal [place] % 5.5 % 2.0-8.0 % [facility]: 0 [facility] High Eos % 4.6 % 0.0-3.0 % [facility]: 0 [facility] Normal Baso % 0.5 % 0.0-1.0 % [facility]: 0 [facility] Normal Immature Granulocyte % 0.2 % 0-3.0 % [facility]: 0 [facility] Normal Nucleated Red Blood Cell % 0.0 % 0- 0 % [facility]: [address] [facility] Normal Neutrophils # 5.6 10 1.5-8.5 10 [facility]: 0 [facility] Normal Lymph # 1.9 10 1.5-5.0 10 Final [facility]: 0 [facility] Normal [place] # 0.5 10 0.0-0.8 10 Final [facility]: [address] [facility] Normal Eos # 0.4 10 0.0-0.5 10 [facility]: [address] [facility] Normal Baso # 0.0 10 0.0-0.2 10 [facility]: [address] [facility] 07/31/2021 Istat B-HCG Normal Istat B-HCG < 5.0 F [facility]: [address] [facility] 07/31/2021 Istat Chem8+ Panel Low Istat HCT 35.0 % 38. 0-51.0 % [facility]: [address] [facility] High Istat Glucose 123 mg/dL 70-105 mg/dL [facility]: [address] [facility] Normal Istat Sodium 138 mEq/L 136-145 mEq/L [facility]: [address] [facility] Normal Istat Potassium 4.3 mEq/L 3.5-5.1 mE q/L [facility]: [address] [facility] Normal Istat Ca++ 4.6 mg/dL 4.5-5.3 mg/dL [facility]: [address] [facility] Normal Istat Chloride 105 mEq/L 98-109 mEq/ L [facility]: [address] [facility] Normal Istat CO2 24.0 mm/L 23.0-27.0 mm/L [facility]: [address] [facility] Normal Istat BUN 14 mg/dL 8-26 mg/dL [facility]: [address] [facility] Normal Istat Creatinine 0.7 mg/dL 0.6-1.3 m g/dL [facility]: [address] [facility] 07/31/2021 [place] ENDOCERVIX No observation recorded. [facility]: [address] [facility] 07/31/2021 PT/INR High Prothrombin Time 23.2 secon ds 12.7-14.5 seconds [facility]: [address] [facility] Normal Inr 2.01 [facility]: [address] [place] [address] 07/31/2021 Partial Thromboplastin Time High Partial Thromboplastin Time 63.9 seconds 25.9-37.0 seconds [facility] nter: [address] [place] [address] 07/31/2021 Lactic Acid, Serum or Plasma Normal Lactic Acid Sepsis Protocol 1.4 mmol/L 0.4-2.0 mmol/L [facility] Center: [address] [place] [address] 07/31/2021 Hepatic Function Panel, Serum Normal AST/SG OT 17 U/L 7-37 U/L [facility]: [address] [place] [address] Normal ALT/SGPT 24 U/L 12-78 U/L [facility]: [address] [place] [address] Normal Alkaline Phosphatase 117 U/L 45-117 U/L [facility]: [address] [place] [address] Low Bilirubin,total 0.1 mg/dL 0.2-1.0 mg /dL [facility]: [address] [place] [address] Normal Bilirubin,direct < 0.1 mg/dL 0.0-0.2 mg/dL [facility]: [address] [place] [address] Normal Total Protein 6.4 gm/dL 6.4-8.2 gm/d L [facility]: [address] [place] [address] Normal Albumin 3.2 gm/dL 3.2-5.2 gm/dL Drea l [facility]: [address] [place] [address] Low Albumin/globulin Ratio 1.0 1.2-2. 2 [facility]: [address] [place] [address] 07/31/2021 Amylase, Serum or Plasma Normal Amylase 40 U/L 25-115 U/L [facility]: [address] [place] [address] 07/31/2021 Lipase, Serum or Plasma Normal Lipase 91 U/L 7 3-393 U/L [facility]: [address] [place] [address] 07/31/2021 Chlamydia, GC & Trich Amp Normal Ch lamydia DNA Amplification negative negative [facility] nter: [address] [facility] Normal GC DNA Amplification negative negati ve [facility]: [address] [facility] Normal Trichomonas Vaginalis (Amp) not dete cted negative [facility]: [address] [facility] [facility] Influenza A/B RSV Covid Amp Normal Influenza a Amplification negative negative [facility] nter: 830 [facility] Normal Influenza B Amplification negative n egative [facility]: [address] [facility] Normal RSV Amplification negative negative Final [facility]: [address] [facility] Normal Sars Covid-19 Amplification negative negative [facility]: 830 [facility] 07/31/2021 TSH, Serum or Plasma Normal Thyroid Stimulating Hormone 0.444 uIU/mL 0.358-3.740 uIU/mL [facility] nter: 830 [facility] 07/31/2021 T4, Free, Serum Low Free T4 0.66 NG/dL 0.76 -1.46 NG/dL [facility]: 0 [facility] 07/31/2021 Type + Screen, Serum Normal Blood Type O posit socrates [facility]: 0 [facility] Normal Ab Screen (Indirect Colin)vis negat socrates [facility]: 0 [facility] 07/31/2021 Cardiovascular Assessment Panel, Serum Normal CPK Creatine Phosphokinase 67 U/L 26-192 U/L [facility] Center: [address] [facility] Normal CK-mb Value Mass < 1.0 NG/mL <3.6 NG /mL [facility]: 0 [facility] Normal mb/CK Relative Index 1.49 < or =4 [facility]: 0 [facility] Normal Troponin I < 0.02 NG/mL < 0.10 NG/mL [facility]: 0 [facility] 07/31/2021 Ethanol, Blood Normal Ethyl Alcohol (Ethano l) < 0.003 % 0.000- 0.010 % [facility]: 83 0 [facility] 07/31/2021 Salicylate, Quantitative, Serum Low Salicylate Level < 1.7 mg/dL 5.0-30.0 mg/dL [facility] nter: 830 [facility] 07/31/2021 Acetaminophen, Serum Low Acetaminophen L evel < 2.0 ug/mL 10.0- 30.0 ug/mL [facility]: 83 0 [facility] 07/31/2021 CBC W/ Auto Diff Normal White Blood Count 8.5 10 4.0-10.0 10 [facility]: 8[address] [facility] Normal Red Blood Count 4.04 10 4.00-5.40 10 [facility]: 8[address] [facility] Low Hemoglobin 9.7 g/dL 12.0-15.5 g/dL F inal [facility]: 8[address] [facility] Low Hematocrit 31.4 % 36.0-47.0 % [facility]: 830 [facility] Low Mean Corpuscular Volume 77.7 fL 80.0 -96.0 fL [facility]: 0 [facility] Low Mean Corpuscular Hemoglobin 24.0 pg 27.0-33.0 pg [facility]: 8[address] [facility] Low Mean Corpuscular HGB Conc 30.9 g/dL 32.0-36.5 g/dL [facility]: 8[address] [facility] High Red Cell Distribution Width 15.3 % 1 1.5-14.5 % [facility]: 8[address] [facility] Normal Platelet Count, Automated 302 10 150 -450 10 [facility]: [address] [facility] Normal Neutrophils % 59.7 % 36.0-66.0 % Fin [facility]: 8[address] [facility] Normal Lymph % 28.8 % 24.0-44.0 % [facility]: [address] [facility] Normal [place] % 5.9 % 2.0-8.0 % [facility]: [address] [facility] High Eos % 4.7 % 0.0-3.0 % [facility]: [address] [facility] Normal Baso % 0.5 % 0.0-1.0 % [facility]: [address] [facility] Normal Immature Granulocyte % 0.4 % 0-3.0 % [facility]: 8[address] [facility] Normal Nucleated Red Blood Cell % 0.0 % 0- 0 % [facility]: 8[address] [facility] Normal Neutrophils # 5.1 10 1.5-8.5 10 [facility]: [address] [facility] Normal Lymph # 2.4 10 1.5-5.0 10 [facility]: [address] [facility] Normal [place] # 0.5 10 0.0-0.8 10 [facility]: [address] [facility] Normal Eos # 0.4 10 0.0-0.5 10 [facility]: [address] [facility] Normal Baso # 0.0 10 0.0-0.2 10 [facility]: 8[address] [facility] 07/31/2021 Drug Screen, Urine Normal Amphetamines Leve l Urine negative negative [facility]: 83 0 [facility] Normal Barbiturates Urine negative negative [facility]: 8[address] [facility] Normal Benzodiazepines Urine negative negat socrates [facility]: 8[address] [facility] Normal Cannabinoids Urine negative negative [facility]: 8[address] [facility] Normal Cocaine Metabolite Urine negative ne gative [facility]: 8[address] [facility] Normal Methadone Urine negative negative Fi [facility]: [address] [facility] High Opiates Urine positive negative [facility]: [address] [facility] Normal Phencyclidine Urine negative negativ e [facility]: 8[address] [facility] 07/29/2021 CT + NG RNA, PCR, Unspecified Specimen Urine Normal Chlamydia Trachomatis RNA, Tma, Urogenital not detected not detected Final [facility]: [address], [place] Urine Normal Neisseria Gonorrhoeae RNA, Tma, Urogenital not detected not detected [facility] [address] , [place] Urine Comment Final [facility]: [address], [place] 07/29/2021 Test, Urine Urine clean catch Hcg n egative [facility] Medical: [address] [facility] [address], [place] 07/25/2021 Thrombosis Prof ([id number]) Normal Homocyste ine 6.5 umol/L . umol/L [facility]: [address] [facility] Normal Factor VIII Activity 91 % . % F inal [facility]: 8[address] [facility] Normal Antithrombin Activity 127 % . % [facility]: 8[address] [facility] Normal Prt C Activity(chromogenic) 160 % . % [facility]: 8[address] [facility] Normal Protein S Antigen, Free 61 % . % [facility]: 8[address] [facility] Normal Aptt 27.3 sec . sec [facility]: 8[address] [facility] Normal APTT 1:1 Workforce Advisor tnp sec . sec [facility]: [address] [facility] Normal APTT 1:1 Saline tnp sec . sec [facility]: 8[address] [facility] Normal Lac Interpretation . Fin [facility]: [address] [facility] Normal Act Prt C Resist W/fv Defic 2.2 rati o . ratio [facility]: [address] [facility] High Drvvt Screen Seconds 72.2 sec . sec [facility]: [address] [facility] Normal Drvvt Confirm Seconds 45.1 sec . sec [facility]: [address] [facility] High Drvvt Ratio 1.4 ratio . ratio [facility]: 8[address] [facility] Normal Hexagonal Phospholipid Neutal 7 sec . sec [facility]: [address] [facility] Normal Anticardiolipin Ab, IgG <10 gpl . gp l [facility]: [address] [facility] Normal Anticardiolipin Ab, IgM 19 mpl . mpl [facility]: [address] [facility] Normal Beta-2 Glycoprotein I, IgG <10 sgu . sgu [facility]: 8[address] [facility] Normal Beta-2 Glycoprotein I, IgM <10 smu . smu [facility]: 8[address] [facility] Normal Beta-2 Glycoprotein I, IgA <10 braden . braden [facility]: 8[address] [facility] Normal Factor II Gene Mutation Result tnp . [facility]: 8[address] [facility] Normal Factor II Gene Interpretation tnp . [facility]: [address] [facility] Normal Factor II Gene Methodology . [facility]: 8[address] [facility] Normal Factor II Gene Comments . [facility]: 8[address] [facility] 07/25/2021 Thrombosis Prof ([id number]) Normal Homocyste ine 6.5 umol/L . umol/L [facility]: 83 0 [facility] Normal Factor VIII Activity 91 % . % F inal [facility]: 8[address] [facility] Normal Antithrombin Activity 127 % . % [facility]: 8[address] [facility] Normal Prt C Activity(chromogenic) 160 % . % [facility]: 8[address] [facility] Normal Protein S Antigen, Free 61 % . % [facility]: 8[address] [facility] Normal Aptt 27.3 sec . sec Final [facility]: 8[address] [facility] Normal APTT 1:1 Workforce Advisor tnp sec . sec Final [facility]: [address] [facility] Normal APTT 1:1 Saline tnp sec . sec [facility]: 8[address] [facility] Normal Lac Interpretation . Fin [facility]: 8[address] [facility] Normal Act Prt C Resist W/fv Defic 2.2 rati o . ratio [facility]: 830 [facility] High Drvvt Screen Seconds 72.2 sec . sec [facility]: 8[address] [facility] Normal Drvvt Confirm Seconds 45.1 sec . sec [facility]: 8[address] [facility] High Drvvt Ratio 1.4 ratio . ratio [facility]: 8[address] [facility] Normal Hexagonal Phospholipid Neutal 7 sec . sec [facility]: 8[address] [facility] Normal Anticardiolipin Ab, IgG <10 gpl . gp l [facility]: 8[address] [facility] Normal Anticardiolipin Ab, IgM 19 mpl . mpl [facility]: 8[address] [facility] Normal Beta-2 Glycoprotein I, IgG <10 sgu . sgu [facility]: 8[address] [facility] Normal Beta-2 Glycoprotein I, IgM <10 smu . smu [facility]: 8[address] [facility] Normal Beta-2 Glycoprotein I, IgA <10 braden . braden [facility]: 8[address] [facility] Normal Factor II Gene Mutation Result tnp . [facility]: 8[address] [facility] Normal Factor II Gene Interpretation tnp . [facility]: [address] [facility] Normal Factor II Gene Methodology . [facility]: 8[address] [facility] Normal Factor II Gene Comments . [facility]: 8[address] [facility] 07/08/2021 Lactic Acid Level, Lactate Normal L actic Acid Level, Lactate 1.6 mmol/L 0.4-2.0 mmol/L [facility] nter: 830 [facility] 07/08/2021 UA W/ Reflex to Culture Normal Appearance, Urine Rfx hazy clear [facility]: 83 0 [facility] Normal Color, Urine Rfx straw yellow [facility]: 8[address] [facility] Normal pH,urine Rfx 8.0 units 5.0-9.0 units [facility]: 8[address] [facility] Normal Specific [place] Ur Auto Rfx 1.014 1.002-1.035 [facility]: 8[address] [facility] Normal Protein, Urine Auto Rfx negative mg/ dL negative mg/dL [facility]: 8[address] [facility] Normal Glucose, Urine (UA) Auto Rfx n egative mg/dL negative mg/dL [facility]: 8[address] [facility] Normal Ketone, Urine Auto Rfx negative mg/d L negative mg/dL [facility]: 8[address] [facility] Normal Urobilinogen, Urine Auto Rfx 0.2 mg/ dL 0.0-2.0 mg/dL [facility]: [address] [facility] Normal Bilirubin, Urine Auto Rfx negative n egative [facility]: [address] [facility] Normal Nitrite, Urine Auto Rfx negative neg ative [facility]: [address] [facility] Normal Leukocyte Esterase Ur Auto Rfx negat socrates negative [facility]: 8[address] [facility] High Blood, Urine Blood Rfx 1+ negati ve [facility]: 8[address] [facility] Normal WBC, Urine Auto Rfx 2 /hpf 0-3 /hpf [facility]: 8[address] [facility] Normal RBC, Urine Auto Rfx 2 /hpf 0-3 /hpf [facility]: 8[address] [facility] Normal Bacteria, Urine Auto Rfx negative ne gative [facility]: 8[address] [facility] Normal Squam Epithelial Cell Ur Aurfx 5 /hp f 0-6 /hpf [facility]: [address] [facility] Normal Hyaline Cast, Urine Auto Rfx 0 /lpf 0-1 /lpf [facility]: 8[address] [facility] 07/08/2021 Cbc High White Blood Count 18.9 10 4.0-10 .0 10 [facility]: [address] [facility] Low Red Blood Count 3.72 10 4.00-5.40 10 [facility]: 0 [facility] Low Hemoglobin 9.2 g/dL 12.0-15.5 g/dL F inal [facility]: 8[address] [facility] Low Hematocrit 29.3 % 36.0-47.0 % [facility]: [address] [place] [address] Low Mean Corpuscular Volume 78.8 fL 80.0 -96.0 fL [facility]: [address] [place] [address] Low Mean Corpuscular Hemoglobin 24.7 pg 27.0-33.0 pg [facility]: [address] [place] [address] Low Mean Corpuscular HGB Conc 31.4 g/dL 32.0-36.5 g/dL [facility]: [address] [place] [address] High Red Cell Distribution Width 15.6 % 1 1.5-14.5 % [facility]: 0 [facility] Normal Platelet Count, Automated 391 10 150 -450 10 [facility]: 0 [facility] Normal Nucleated Red Blood Cell % 0.0 % 0- 0 % [facility]: 0 [facility] 07/08/2021 BMP, Serum or Plasma High Glucose, Fastin g 115 mg/dL 70-100 mg/dL [facility]: 83 0 [facility] Normal Blood Urea Nitrogen 10 mg/dL 7-18 mg /dL [facility]: 0 [facility] Normal Creatinine for GFR 0.67 mg/dL 0.55-1 .30 mg/dL [facility]: 0 [facility] Normal Glomerular Filtration Rate > 60.0 >6 0 [facility]: 0 [facility] Normal Sodium Level 142 mEq/L 136-145 mEq/L [facility]: 0 [facility] D Potassium Serum 4.8 mEq/L 3.5-5.1 mE q/L [facility]: [address] [place] [address] High Chloride Level 109 mEq/L 98-107 mEq/ L [facility]: [address] [place] [address] Normal Carbon Dioxide Level 25 mEq/L 21-32 mEq/L [facility]: [address] [place] [address] Normal Anion Gap 8 mEq/L 8-16 mEq/L [facility]: [address] [place] [address] Normal Calcium Level 8.8 mg/dL 8.5-10.1 mg/ dL [facility]: [address] [place] [address] 07/08/2021 Hepatic Function Panel, Serum Normal AST/SG OT 15 U/L 7-37 U/L [facility]: [address] [place] [address] Normal ALT/SGPT 41 U/L 12-78 U/L [facility]: [address] [place] [address] Normal Alkaline Phosphatase 104 U/L 45-117 U/L [facility]: [address] [place] [address] Low Bilirubin,total 0.1 mg/dL 0.2-1.0 mg /dL [facility]: [address] [place] [address] Normal Bilirubin,direct < 0.1 mg/dL 0.0-0.2 mg/dL [facility]: [address] [place] [address] Low Total Protein 6.1 gm/dL 6.4-8.2 gm/d L [facility]: [address] [place] [address] Low Albumin 3.0 gm/dL 3.2-5.2 gm/dL Drea l [facility]: [address] [place] [address] Low Albumin/globulin Ratio 1.0 1.2-2. 2 [facility]: [address] [place] [address] 07/07/2021 Istat ABG High Istat pH 7.473 units 7.350-7. 450 units [facility]: [address] [facility] Normal Istat pCO2 38.4 mmHg 35.0-45.0 mmHg [facility]: 0 [facility] Low Istat pO2 70.0 mmHg 80-105 mmHg Drea [facility]: 0 [facility] High Istat TCO2 29.0 mmol/L 23.0-27.0 mmo l/L [facility]: [address] [place] [address] High Istat HCO3 28.1 mmol/L 22.0-26.0 mmo l/L [facility]: [address] [place] [address] High Istat Base Excess 5.0 mmol/L -2.0-3. 0 mmol/L [facility]: [address] [place] [address] Normal Istat So2 95 % 95-98 % [facility]: [address] [place] [address] 07/07/2021 CBC W/ Auto Diff High White Blood Count 14.1 10 4.0-10.0 10 [facility]: [address] [place] [address] Normal Red Blood Count 4.23 10 4.00-5.40 10 [facility]: [address] [place] [address] Low Hemoglobin 10.3 g/dL 12.0-15.5 g/dL [facility]: [address] [place] [address] Low Hematocrit 32.7 % 36.0-47.0 % [facility]: [address] [place] [address] Low Mean Corpuscular Volume 77.3 fL 80.0 -96.0 fL [facility]: [address] [place] [address] Low Mean Corpuscular Hemoglobin 24.3 pg 27.0-33.0 pg [facility]: [address] [place] [address] Low Mean Corpuscular HGB Conc 31.5 g/dL 32.0-36.5 g/dL [facility]: [address] [place] [address] High Red Cell Distribution Width 15.2 % 1 1.5-14.5 % [facility]: [address] [place] [address] Normal Platelet Count, Automated 374 10 150 -[address] [facility]: 8[address] [facility] Normal Nucleated Red Blood Cell % 0.0 % 0- 0 % Final [facility]: 830 [facility] 07/07/2021 Differential Panel, Blood Normal Neutrophil s 56 % 28-66 % Final [facility]: 830 [facility] Normal Lymphocytes 30 % 16-44 % Final [facility]: [address] [facility] High Monocytes 7 % 0-5 % Final [facility]: 8[address] [facility] High Eosinophils 5 % 0-3 % Final [facility]: [address] [facility] Normal Basophils 1 % 0-1 % Final [facility]: 8[address] [facility] Normal Atypical Lymph 1 % 0-5 % [facility]: 8[address] [facility] Normal Hypochromasia 1+ Final [facility]: 8[address] [facility] Normal Anisocytosis 1+ Final [facility]: [address] [facility] Normal Microcytosis 1+ Final [facility]: 8[address] [facility] Normal Ovalocytes 1+ Final [facility]: 8[address] [facility] Normal Smudge Cells 1+ Final [facility]: [address] [facility] Normal Platelet Clumps small amt Fin al [facility]: 8[address] [facility] 07/07/2021 Platelet Count, Estimate, Blood Normal Platelet Estimate normal normal Final [facility] nter: 830 [facility] 07/07/2021 Influenza A/B RSV Covid Amp Normal Influenza a Amplification negative negative [facility] nter: 830 [facility] Normal Influenza B Amplification negative n egative [facility]: [address] [facility] Normal RSV Amplification negative negative Final [facility]: 8[address] [facility] Normal Sars Covid-19 Amplification negative negative [facility]: 8[address] [facility] 07/07/2021 Cardiovascular Assessment Panel, Serum Normal CPK Creatine Phosphokinase 45 U/L 26-192 U/L [facility] Center: [address] [place] [address] Normal CK-mb Value Mass < 1.0 NG/mL <3.6 NG /mL [facility]: [address] [place] [address] Normal mb/CK Relative Index 2.22 < or =4 [facility]: [address] [place] [address] Normal Troponin I < 0.02 NG/mL < 0.10 NG/mL [facility]: [address] [place] [address] 07/07/2021 Hepatic Function Panel, Serum Normal AST/SG OT 15 U/L 7-37 U/L [facility]: [address] [place] [address] Normal ALT/SGPT 30 U/L 12-78 U/L [facility]: [address] [place] [address] Normal Alkaline Phosphatase 111 U/L 45-117 U/L [facility]: [address] [place] [address] Low Bilirubin,total 0.1 mg/dL 0.2-1.0 mg /dL [facility]: [address] [place] [address] Normal Bilirubin,direct < 0.1 mg/dL 0.0-0.2 mg/dL [facility]: [address] [place] [address] Normal Total Protein 6.6 gm/dL 6.4-8.2 gm/d L [facility]: [address] [place] [address] Normal Albumin 3.2 gm/dL 3.2-5.2 gm/dL Drea l [facility]: [address] [place] [address] Low Albumin/globulin Ratio 0.9 1.2-2. 2 [facility]: [address] [place] [address] 07/07/2021 BMP, Serum or Plasma Normal Glucose, Fastin g 97 mg/dL 70-100 mg/dL [facility]: 83 0 [facility] Normal Blood Urea Nitrogen 9 mg/dL 7-18 mg/ dL [facility]: [address] [place] [address] Normal Creatinine for GFR 0.68 mg/dL 0.55-1 .30 mg/dL [facility]: 830 [facility] Normal Glomerular Filtration Rate > 60.0 >6 0 [facility]: 8[address] [facility] Normal Sodium Level 141 mEq/L 136-145 mEq/L [facility]: 830 [facility] Low Potassium Serum 3.4 mEq/L 3.5-5.1 mE q/L [facility]: 830 [facility] Normal Chloride Level 105 mEq/L 98-107 mEq/ L [facility]: 8[address] [facility] Normal Carbon Dioxide Level 28 mEq/L 21-32 mEq/L [facility]: 8[address] [facility] Normal Anion Gap 8 mEq/L 8-16 mEq/L [facility]: 8[address] [facility] Normal Calcium Level 8.8 mg/dL 8.5-10.1 mg/ dL [facility]: 830 [facility] 07/07/2021 Drug Screen, Urine Normal Amphetamines Leve l Urine negative negative [facility]: 83 0 [facility] High Barbiturates Urine positive negative [facility]: 830 [facility] High Benzodiazepines Urine positive negat socrates [facility]: 830 [facility] Normal Cannabinoids Urine negative negative [facility]: 8[address] [facility] Normal Cocaine Metabolite Urine negative ne gative [facility]: 830 [facility] Normal Methadone Urine negative negative Fi nal [facility]: 830 [facility] High Opiates Urine positive negative Drea l [facility]: 830 [facility] Normal Phencyclidine Urine negative negativ e [facility]: 830 [facility] 07/07/2021 ESR (Erythrocyte Sedimentation Rate), Blood Hig h Erythrocyte Sedimentation Rate 52 mm/HR 0-20 mm/HR [facility] dical Center: 830 [facility] 07/07/2021 D-dimer, Quant, Plasma Normal D-dimer Quant 333.30 NG/mL <500 NG/mL Final [facility]: 83 0 [facility] 07/07/2021 Lactic Acid, Serum or Plasma Panic High Lactic Acid Sepsis Protocol 4.1 mmol/L 0.4-2.0 mmol/L [facility] Center: 0 [facility] 07/07/2021 Respiratory Virus Panel NASOPHARYNX No observ ation recorded. [facility]: 830 [facility] 07/07/2021 Magnesium, Serum or Plasma Normal Magnesium Level 1.8 mg/dL 1.8-2.4 mg/dL Final [facility]: 83 0 [facility] 07/07/2021 Pro BNP (Pro B-type Natriuretic Peptide), Serum or Plasma Normal Nt-pro BNP 30 pg/mL <125 pg/mL [facility] Center: 8[address] [facility] 07/07/2021 TIBC (Total Iron-binding Capacity), Serum Low Iron (Fe) 25 ug/dL 50-170 ug/dL [facility] nter: 830 [facility] Normal Total Iron Binding Capacity 376 ug/d L 250-450 ug/dL [facility]: [address] [place] [address] Low Percent Saturation 6.6 % 13.2-45.0 % [facility]: 830 [facility] 07/07/2021 C3 (Complement), Serum or Plasma Normal Complement C3 166 mg/dL 90-180 mg/dL [facility] nter: 830 [facility] 07/07/2021 C4 (Complement), Serum or Plasma High Com plement C4 46 mg/dL 10-40 mg/dL Final [facility]: 83 0 [facility] 07/07/2021 Vitamin B12, Serum Normal Vitamin B12 Level 850 pg/mL 247-911 pg/mL [facility]: 83 0 [facility] 07/07/2021 Folate, Serum Normal Folate 10.6 NG/mL >5.4 NG /mL [facility]: 8[address] [facility] 07/07/2021 Ferritin, Serum or Plasma Normal Ferritin 19 NG/mL 8-252 NG/mL [facility]: 0 [facility] 07/07/2021 C Reactive Protein, QN, Serum or Plasma High C Reactive Protein Quantitativ 3.58 mg/dL 0.00-0.30 mg/dL [facility] Center: [address] [facility] 07/07/2021 Glucose, Fingerstick, Blood High Bedside Glucose 178 mg/dL 70- 105 mg/dL [facility]: 83 0 [facility] 07/07/2021 Gas Panel, Arterial Blood High ABG pH (Ar terial) 7.468 units 7.350-7.450 units [facility]: 83 0 [facility] Low ABG Partial Pressure CO2 32.8 mmHg 3 5.0-45.0 mmHg [facility]: 0 [facility] Low ABG Partial Pressure O2 61.5 mmHg 75 .0-100.0 mmHg [facility] [facility] Normal ABG Total CO2 24.2 mEq/L 22.0-29.0 m Eq/L [facility]: 0 [facility] Normal Abg Hco3 23.2 mEq/L 22.0-26.0 mEq/L [facility]: [facility] [facility] Normal ABG Base Excess 0.0 -2.0-2.[address] [facility]: [address] [facility] Normal ABG Standard HCO3 24.4 mEq/L 22.0-26 .0 mEq/L [facility]: [address] [facility] Low ABG O2 Saturation 91.9 % 95.0-99.0 % [facility]: 0 [facility] 07/07/2021 Lactic Acid, Serum or Plasma Panic High Lactic Acid Sepsis Protocol 4.8 mmol/L 0.4-2.0 mmol/L [facility] Center: 0 [facility] 07/07/2021 Procalcitonin, Serum Normal Procalcitonin 0.09 [facility]: [address] [place] [address] 07/07/2021 Choriogonadotropin, Quant, Serum or Plasma Norm al HCG, Serum Quantitative < 1.0 mIU/mL Final [facility]: [address] [place] [address] 07/07/2021 Troponin I, Blood Normal Troponin I < 0.02 NG/mL < 0.10 NG/mL [facility]: [address] [place] [address] 07/07/2021 TSH, Serum or Plasma Normal Thyroid Stimulating Hormone 0.696 uIU/mL 0.358-3.740 uIU/mL [facility] nter: [address] [place] [address] 07/07/2021 T4, Free, Serum Low Free T4 0.65 NG/dL 0.76 -1.46 NG/dL [facility]: [address] [place] [address] 07/07/2021 T3, Total, Serum Low Total T3 49.3 NG/d L 60.0-181.0 NG/dL [facility]: [address] [place] [address] 07/07/2021 Sickle Cell Screen, Qual, Light Microscopy, Blood Normal Sickle Cell Screen negative negative [facility]: [address] [place] [address] 07/07/2021 Lactic Acid Level, Lactate Panic High Lactic Acid Level, Lactate 4.3 mmol/L 0.4-2.0 mmol/L [facility]: [address] [place] [address] 07/07/2021 Lactic Acid, Serum or Plasma Panic High Lactic Acid Sepsis Protocol 3.7 mmol/L 0.4-2.0 mmol/L [facility]: [address] [place] [address] 07/07/2021 Periph Smear for Path Review Normal Slide R theresa report [facility]: [address] [place] [address] Normal Source peripheral smear [facility]: [address] [place] [address] Normal Reason for Review atypical lymphs [facility]: [address] [place] [address] 07/07/2021 Mrsa Screen, PCR Normal MRSA PCR Screen no t detected negative [facility]: [address] [facility] 07/07/2021 Culture, Blood BLOOD No observation recorded. [facility]: [address] [facility] 07/07/2021 Pathology Request for Service Myla randolph Smear-path Review [facility]: 83 0 [facility] 07/07/2021 LDH Lactate Dehydrogenase Normal LD H Lactate Dehydrogenase 245 U/L 84-246 U/L [facility] nter: 8[address] [facility] 07/07/2021 Acetaminophen, Serum Low Acetaminophen L evel 8.7 ug/mL 10.0- 30.0 ug/mL [facility]: 83 0 [facility] 07/07/2021 Culture, Blood BLOOD No observation recorded. [facility]: [address] [facility] 07/07/2021 Haptoglobin Normal Haptoglobin 208 mg/dL 33-27 8 mg/dL [facility]: [address] [facility] 07/07/2021 Complement C2, Serum Normal Complement C2 2.8 mg/dL 1.4-3.3 mg/dL [facility]: 83 0 [facility] 07/02/2021 SARS CoV 2 RNA (COVID-19), QL, sock and stocking ironer-PCR, Respiratory Specim en Covid-19 PCR negative negative [facility]): 4 [facility] [place] 07/02/2021 Lactic Acid La 1.1 mmol/L 0.4-2.0 mmo l/L [facility]): 4 [facility] [place] 07/02/2021 CMP, Serum or Plasma Glu 100 mg/dL 74- 106 mg/dL [facility]): 4 [facility] [place] Bun 9 mg/dL 7-18 mg/dL [facility]): 4 [facility] [place] Cre 0.67 mg/dL 0.6-1.0 mg/dL [facility]): 4 [facility] [place] Na 141 mmol/L 136-145 mmol/L [facility]): 4 [facility] [place] Low K 3.3 mmol/L 3.5-5.1 mmol/L [facility] ([facility]): 4 [facility] [place] Cl 103 mmol/L 98-107 mmol/L [facility] ([facility]): 4 [facility] [place] Co2 27 mmol/L 21-32 mmol/L [facility] ([facility]): 4 [facility] [place] Ca 8.9 mg/dL 8.5-10.1 mg/dL [facility] ([facility]): 4 [facility] [place] Gap 11.0 mmol/L 5-12 mmol/L [facility] ([facility]): 4 [facility] [place] Gfr >90 mL/min [facility] ([facility]): 4 [facility] [place] Low Ast 9 U/L 15-37 U/L Final [facility] ([facility]): 4 [facility] [place] Alt 23 U/L 12-78 U/L Final [facility] ([facility]): 4 [facility] [place] High Alk 119 U/L 46-116 U/L [facility] ([facility]): 4 [facility] [place] Low Tbili 0.1 mg/dL 0.2-1.0 mg/dL [facility] ([facility]): 4 [facility] [place] Tp 6.9 g/dL 6.4-8.2 g/dL [facility] ([facility]): 4 [facility] [place] Low Alb 3.1 gm/dL 3.4-5.0 gm/dL [facility] ([facility]): 4 [facility] [place] 07/02/2021 Bnp Bnp 28 pg/mL 0-125 pg/mL [facility] ([facility]): 4 [facility] [place] 07/02/2021 Urine Microscopic High Urbc tntc /hpf 0-3 /h pf [facility] ([facility]): 4 [facility] [place] High UWBC Reflex 0-2 /hpf 0-5 /hpf [facility] ([facility]): 4 [facility] [place] Uec 1+ /hpf 0 /hpf Final [facility] ([facility]): 4 [facility] [place] High Ub Reflex 1+ none seen Final [facility] ([facility]): 4 [facility] [place] Uyeast present [facility] ([facility]): 4 [facility] [place] 07/02/2021 Urinalysis Complete, Reflex Culture Ucol yellow [facility] ([facility]): 4 [facility] [place] Uapp slighty cloudy Final [facility] ([facility]): 4 [facility] [place] Ugl negative mg/dL negative mg/dL F [facility] ([facility]): 4 [facility] [place] Ubil negative negative [facility] ([facility]): 4 [facility] [place] Uket negative mg/dL negative mg/dL F [facility] ([facility]): 4 [facility] [place] Sgu 1.010 1.005-1.030 [facility] ([facility]): 4 [facility] [place] High Ubl Reflex 3+(large) negative [facility] ([facility]): 4 [facility] [place] Yimi 6.5 5.0-9.0 [facility]): 4 [facility] [place] Upro Reflex negative mg/dL negative mg/dL [facility] ([facility]): 4 [facility] [place] Uuro normal(0.2-1) mg/dL 0-1 mg/dL F [facility] ([facility]): 4 [facility] [place] Unit Reflex negative negative [facility] ([facility]): 4 [facility] [place] Ule Reflex negative negative [facility] ([facility]): 4 [facility] [place] 07/02/2021 Magnesium, Serum or Plasma mg 2.0 mg/ dL 1.8-2.4 mg/dL [facility] ([facility]): 4 [facility] [place] 07/02/2021 Troponin-high Sensitivity Trophs 5.4 NG /L 0-60.4 NG/L [facility] ([facility]): 4 [facility] [place] 07/02/2021 Troponin-high Sensitivity Trophs 4.6 NG /L 0-60.4 NG/L [facility] ([facility]): 4 [facility] [place] 07/02/2021 TORCH Respiratory Panel Tadeno not detected detected not detected [facility] ([facility]): 4 Full er , [place] [id number] not detected detected not detected [facility] ([facility]): 4 Hu , [place] Tcorohku1 not detected detected not detected [facility] ([facility]): 4 [facility] [place] Wofecbu50 not detected detected not detected [facility] ([facility]): 4 [facility] [place] [id number] not detected detected not detected [facility] ([facility]): 4 [facility] [place] Tcorosars2 not detected detected not detected [facility] ([facility]): 4 [facility] [place] Thummet not detected detected not de tected [facility] ([facility]): 4 [facility] [place] Thumrhino detected detected not dete cted [facility] ([facility]): 4 [facility] [place] Tflua not detected detected not dete cted [facility] ([facility]): 4 [facility] [place] Tflub not detected detected not dete cted [facility] ([facility]): 4 [facility] [place] Tparaflu1 not detected detected not detected [facility] ([facility]): 4 [facility] [place] Tparaflu2 not detected detected not detected [facility] ([facility]): 4 [facility] [place] Tparaflu3 not detected detected not detected [facility] ([facility]): 4 [facility] [place] Tparaflu4 not detected detected not detected [facility] ([facility]): 4 [facility] [place] Trsv not detected detected not detec jina [facility] ([facility]): 4 [facility] [place] Tbordpara not detected detected not detected [facility] ([facility]): 4 [facility] [place] Tbord not detected detected not dete cted [facility] ([facility]): 4 [facility] [place] Tchlamypne not detected detected not detected [facility] ([facility]): 4 [facility] [place] Tmycpne not detected detected not de tected [facility] ([facility]): 4 [facility] [place] 07/02/2021 CBC W/ Auto Diff Wbc 8.3 K/mm3 4.0-10. 0 K/mm3 Final [facility] ([facility]): 4 [facility] [place] Rbc 4.10 M/mm3 4.00-5.50 M/mm3 [facility] ([facility]): 4 [facility] [place] Low Hgb 10.2 gm/dL 12.0-16.0 gm/dL [facility] ([facility]): 4 [facility] [place] Low Hct 30.9 % 36.0-48.8 % [facility] ([facility]): 4 [facility] [place] Low Mcv 75.4 fL 80-96 fL [facility] 4 [facility] [place] Low Mch 24.9 pg 27.0-31.0 pg Final [facility] ([facility]): 4 [facility] [place] Mchc 33.0 g/dL 32.0-36.0 g/dL Final [facility] ([facility]): 4 [facility] [place] High Rdw 14.8 % 10.0-14.5 % Final [facility] ([facility]): 4 [facility] [place] Plt 336 K/mm3 172-450 K/mm3 Final [facility] ([facility]): 4 [facility] [place] Mpv 10.2 fL 9.0-13.0 fL Final [facility] ([facility]): 4 [facility] [place] High Gr% 88.9 % 50-80.0 % [facility] 4 [facility] [place] High Ig% 0.4 % 0.0-0.2 % [facility] 4 [facility] [place] Low Ly% 8.8 % 25.0-50.0 % [facility] ([facility]): 4 [facility] [place] Low Mo% 1.8 % 2.0-10.0 % [facility] ([facility]): 4 [facility] [place] Eo% 0.0 % 0-5.0 % [facility] 4 [facility] [place] Ba% 0.1 % 0.0-2.0 % [facility] 4 [facility] [place] Gr# 7.4 K/mm3 2.0-8.00 K/mm3 [facility] ([facility]): 4 [facility] [place] Ig# 0.0 K/mm3 0.0-0.2 K/mm3 [facility] ([facility]): 4 [facility] [place] Low Ly# 0.7 K/mm3 1.0-5.0 K/mm3 [facility] ([facility]): 4 [facility] [place] Mo# 0.2 K/mm3 0.10-1.20 K/mm3 [facility] ([facility]): 4 [facility] [place] Eo# 0.0 K/mm3 0.0-0.5 K/mm3 [facility] ([facility]): 4 [facility] [place] Ba# 0.0 K/mm3 0.0-0.2 K/mm3 [facility] ([facility]): 4 [facility] [place] 07/02/2021 Gas Panel, Venous Blood High Vph 7.44 7.3 1-7.41 [facility] ([facility]): 4 [facility] [place] Low Vpco2 35.1 mmHg 41-51 mmHg [facility] ([facility]): 4 [facility] [place] High Vpo2 89 mmHg 35-42 mmHg [facility] ([facility]): 4 [facility] [place] High Vo2 Sat 97.3 % 68-77 % [facility] ([facility]): 4 [facility] [place] Low Vhco3 23.5 mEq/L 24.0-25.0 mEq/L [facility] ([facility]): 4 [facility] [place] Vbe 0.1 -3.0-3.[address] [facility] ([facility]): 4 [facility] [place] Vctco2 24.6 mmol/L 23.0-32.0 mmol/L [facility] ([facility]): 4 [facility] [place] 07/02/2021 CMP, Serum or Plasma High Glu 164 mg/dL 74- 106 mg/dL [facility] ([facility]): 4 [facility] [place] Low Bun 5 mg/dL 7-18 mg/dL [facility] ([facility]): 4 [facility] [place] Cre 0.72 mg/dL 0.6-1.0 mg/dL [facility] ([facility]): 4 [facility] [place] Na 141 mmol/L 136-145 mmol/L [facility] ([facility]): 4 [facility] [place] K 3.7 mmol/L 3.5-5.1 mmol/L [facility] ([facility]): 4 [facility] [place] Cl 104 mmol/L 98-107 mmol/L [facility] ([facility]): 4 [facility] [place] Co2 25 mmol/L 21-32 mmol/L [facility] ([facility]): 4 [facility] [place] Ca 8.7 mg/dL 8.5-10.1 mg/dL [facility] ([facility]): 4 [facility] [place] Gap 12.0 mmol/L 5-12 mmol/L [facility] ([facility]): 4 [facility] [place] Gfr >90 mL/min [facility] ([facility] 4 [facility] [place] Low Ast 14 U/L 15-37 U/L [facility] ([facility]): 4 [facility] [place] Alt 31 U/L 12-78 U/L [facility] ([facility]): 4 [facility] [place] Alk 113 U/L 46-116 U/L [facility] ([facility]): 4 [facility] [place] Low Tbili < 0.1 mg/dL 0.2-1.0 mg/dL [facility] ([facility]): 4 [facility] [place] Tp 6.9 g/dL 6.4-8.2 g/dL [facility] ([facility]): 4 [facility] [place] Low Alb 3.0 gm/dL 3.4-5.0 gm/dL [facility] ([facility]): 4 [facility] [place] 07/02/2021 C Reactive Protein High Crp 55.8 mg/L 0.0-3 .0 mg/L [facility] ([facility]): 4 [facility] [place] 04/02/2021 CBC W/ Auto Diff High White Blood Count 13.0 10 4.0-10.0 10 [facility]: [address] [facility] Normal Red Blood Count 4.29 10 4.00-5.40 10 [facility]: [address] [facility] Low Hemoglobin 10.4 g/dL 12.0-15.5 g/dL [facility]: [address] [place] [address] Low Hematocrit 33.8 % 36.0-47.0 % [facility]: [address] [place] [address] Low Mean Corpuscular Volume 78.8 fL 80.0 -96.0 fL [facility]: [address] [place] [address] Low Mean Corpuscular Hemoglobin 24.2 pg 27.0-33.0 pg [facility]: [address] [place] [address] Low Mean Corpuscular HGB Conc 30.8 g/dL 32.0-36.5 g/dL [facility]: [address] [place] [address] High Red Cell Distribution Width 15.7 % 1 1.5-14.5 % [facility]: [address] [place] [address] Normal Platelet Count, Automated 361 10 150 -450 10 [facility]: 0 [facility] Normal Neutrophils % 62.9 % 36.0-66.0 % Fin [facility]: [address] [facility] Normal Lymph % 28.4 % 24.0-44.0 % [facility]: [address] [facility] Normal [place] % 5.2 % 2.0-8.0 % Final [facility]: [address] [facility] Normal Eos % 2.5 % 0.0-3.0 % [facility]: 0 [facility] Normal Baso % 0.5 % 0.0-1.0 % [facility]: 0 [facility] Normal Immature Granulocyte % 0.5 % 0-3.0 % [facility]: 0 [facility] Normal Nucleated Red Blood Cell % 0.0 % 0- 0 % [facility]: [address] [place] [address] Normal Neutrophils # 8.2 10 1.5-8.5 10 [facility]: [facility] Normal Lymph # 3.7 10 1.5-5.0 10 [facility]: [address] [facility] Normal [place] # 0.7 10 0.0-0.8 10 [facility]: [address] [facility] Normal Eos # 0.3 10 0.0-0.5 10 [facility]: [address] [facility] Normal Baso # 0.1 10 0.0-0.2 10 [facility]: [address] [place] [address] 04/02/2021 PT/INR Normal Prothrombin Time 13.6 secon ds 12.5-14.3 seconds [facility]: [address] [place] [address] Normal Inr 1.02 [facility]: [address] [place] [address] 04/02/2021 Partial Thromboplastin Time Normal Partial Thromboplastin Time 34.5 seconds 24.2-38.5 seconds [facility] nter: [address] [place] [address] 04/02/2021 Cardiovascular Assessment Panel, Serum Normal CPK Creatine Phosphokinase 155 U/L 26-192 U/L [facility] Center: [address] [place] [address] Normal CK-mb Value Mass < 1.0 NG/mL <3.6 NG /mL [facility]: [address] [place] [address] Normal mb/CK Relative Index 0.65 < or =4 [facility]: [address] [place] [address] Normal Troponin I < 0.02 NG/mL < 0.10 NG/mL [facility]: [address] [place] [address] 04/02/2021 Hepatic Function Panel, Serum Normal AST/SG OT 12 U/L 7-37 U/L [facility]: 0 [facility] Normal ALT/SGPT 27 U/L 12-78 U/L [facility]: [address] [place] [address] High Alkaline Phosphatase 132 U/L 45-117 U/L [facility]: [address] [place] [address] Low Bilirubin,total 0.1 mg/dL 0.2-1.0 mg /dL [facility]: [address] [place] [address] Normal Bilirubin,direct < 0.1 mg/dL 0.0-0.2 mg/dL [facility]: [address] [place] [address] Normal Total Protein 6.4 gm/dL 6.4-8.2 gm/d L [facility]: [address] [place] [address] Normal Albumin 3.2 gm/dL 3.2-5.2 gm/dL Drea l [facility]: [address] [place] [address] Low Albumin/globulin Ratio 1.0 1.2-2. 2 [facility]: [address] [place] [address] 04/02/2021 C-reactive Protein, Qualitative, Serum Normal Glucose, Fasting 88 mg/dL 70-100 mg/dL [facility] nter: [address] [place] [address] Normal Blood Urea Nitrogen 7 mg/dL 7-18 mg/ dL [facility]: [address] [place] [address] Normal Creatinine for GFR 0.71 mg/dL 0.55-1 .30 mg/dL [facility]: [address] [place] [address] Normal Glomerular Filtration Rate > 60.0 >6 0 [facility]: [address] [place] [address] Normal Sodium Level 142 mEq/L 136-145 mEq/L [facility]: [address] [place] [address] Normal Potassium Serum 3.6 mEq/L 3.5-5.1 mE q/L [facility]: [address] [place] [address] High Chloride Level 111 mEq/L 98-107 mEq/ L [facility]: [address] [place] [address] Normal Carbon Dioxide Level 28 mEq/L 21-32 mEq/L [facility]: [address] [place] [address] Low Anion Gap 3 mEq/L 8-16 mEq/L [facility]: [address] [place] [address] Low Calcium Level 8.3 mg/dL 8.5-10.1 mg/ dL [facility]: [address] [facility] 04/02/2021 Amylase, Serum or Plasma Normal Amylase 30 U/L 25-115 U/L [facility]: [address] [facility] 04/02/2021 Lipase, Serum or Plasma Low Lipase 45 U/L 7 3-393 U/L [facility]: 8[address] [facility] 04/02/2021 Ethanol, Blood Normal Ethyl Alcohol (Ethano l) < 0.003 % 0.000- 0.010 % [facility]: 83 0 [facility] 04/02/2021 Lactic Acid, Serum or Plasma Normal Lactic Acid Sepsis Protocol 1.6 mmol/L 0.4-2.0 mmol/L [facility]: [address] [facility] 04/02/2021 Type + Screen, Serum Normal Blood Type O posit socrates [facility]: [address] [facility] Normal Ab Screen (Indirect Colin)vis negat socrates [facility]: [address] [facility] 04/02/2021 UA W/ Reflex to Culture Normal Appearance, Urine Rfx clear clear [facility]: 83 0 [facility] Normal Color, Urine Rfx yellow yellow [facility]: [address] [facility] Normal pH,urine Rfx 6.0 units 5.0-9.0 units [facility]: 8[address] [facility] Normal Specific [place] Ur Auto Rfx 1.018 1.002-1.035 [facility]: 8[address] [facility] Normal Protein, Urine Auto Rfx negative mg/ dL negative mg/dL [facility]: [address] [facility] Normal Glucose, Urine (UA) Auto Rfx n egative mg/dL negative mg/dL [facility]: [address] [facility] Normal Ketone, Urine Auto Rfx negative mg/d L negative mg/dL [facility]: [address] [facility] Normal Urobilinogen, Urine Auto Rfx 0.2 mg/ dL 0.0-2.0 mg/dL [facility]: [address] [facility] Normal Bilirubin, Urine Auto Rfx negative n egative [facility]: [address] [facility] Normal Nitrite, Urine Auto Rfx negative neg ative [facility]: 8[address] [facility] Normal Leukocyte Esterase Ur Auto Rfx negat socrates negative [facility]: [address] [facility] Normal Blood, Urine Blood Rfx negative nega tive [facility]: [address] [facility] Normal WBC, Urine Auto Rfx 0 /hpf 0-3 /hpf [facility]: 8[address] [facility] Normal RBC, Urine Auto Rfx 0 /hpf 0-3 /hpf [facility]: 8[address] [facility] Normal Bacteria, Urine Auto Rfx [facility] Normal Squam Epithelial Cell Ur Aurfx 3 /hp f 0-6 /hpf [facility]: [address] [facility] Normal Mucus, Urine Rfx small negative Fin [facility]: [address] [facility] Normal Hyaline Cast, Urine Auto Rfx 0 /lpf 0-1 /lpf [facility]: [address] [facility] 04/02/2021 Drug Screen, Urine Normal Amphetamines Leve l Urine negative negative [facility]: 83 0 [facility] High Barbiturates Urine positive negative [facility]: [address] [facility] Normal Benzodiazepines Urine negative negat socrates [facility]: [address] [facility] High Cannabinoids Urine positive negative [facility]: [address] [facility] Normal Cocaine Metabolite Urine negative ne gative [facility]: [address] [facility] Normal Methadone Urine negative negative Fi nal [facility]: [address] [facility] Normal Opiates Urine negative negative Drea l [facility]: [address] [facility] Normal Phencyclidine Urine negative negativ e [facility]: [address] [facility] 03/07/2021 CBC W/ Auto Diff Blood venous No observation re corded. [facility]: [address] [facility] [address], [place] 03/07/2021 TSH + Free T4, Serum Blood venous No observa tion recorded. 03/07/2021 CMP, Serum or Plasma Blood venous No observa tion recorded. 03/07/2021 Lipid Panel, Serum Blood venous No observation recorded. [facility]: [address] [facility] [address], [place] 03/07/2021 HbA1C (Hemoglobin a1C), Blood Blood venous No observation recorded. [facility]: [address] [facility] [address], [place] 03/07/2021 Vitamin D, 25-Hydroxy, Total, Serum Blood venous No observation recorded. [facility]: [address] [facility] [address], [place] 03/07/2021 Lupus Anticoagulant, Plasma Blood venous No observation recorded. [facility]: [address] [facility] [address], [place] 03/05/2021 Levetiracetam, Serum Normal Levetiracetam ( Keppra) 10.2 ug/mL 10.0-40.0 ug/mL [facility]: 83 0 [facility] 02/20/2021 Istat Chem8+ Panel Low Istat HCT 37.0 % 38. 0-51.0 % [facility]: [address] [facility] Normal Istat Glucose 94 mg/dL 70-105 mg/dL [facility]: [address] [facility] Normal Istat Sodium 140 mEq/L 136-145 mEq/L [facility]: [address] [facility] Normal Istat Potassium 4.3 mEq/L 3.5-5.1 mE q/L [facility]: [address] [facility] Normal Istat Ca++ 5.0 mg/dL 4.5-5.3 mg/dL F inal [facility]: [address] [facility] Normal Istat Chloride 107 mEq/L 98-109 mEq/ L [facility]: [address] [facility] Normal Istat CO2 26.0 mm/L 23.0-27.0 mm/L F inal [facility]: [address] [facility] Normal Istat BUN 9 mg/dL 8-26 mg/dL [facility]: [address] [facility] Low Istat Creatinine 0.5 mg/dL 0.6-1.3 m g/dL [facility]: [address] [facility] 02/20/2021 CBC W/ Auto Diff High White Blood Count 12.7 10 4.0-10.0 10 [facility]: [address] [facility] Normal Red Blood Count 4.60 10 4.00-5.40 10 [facility]: 0 [facility] Low Hemoglobin 11.4 g/dL 12.0-15.5 g/dL [facility]: 0 [facility] Normal Hematocrit 37.4 % 36.0-47.0 % [facility]: [address] [facility] Normal Mean Corpuscular Volume 81.3 fL 80.0 -96.0 fL [facility]: 0 [facility] Low Mean Corpuscular Hemoglobin 24.8 pg 27.0-33.0 pg [facility]: [address] [place] [address] Low Mean Corpuscular HGB Conc 30.5 g/dL 32.0-36.5 g/dL [facility]: 0 [facility] High Red Cell Distribution Width 15.2 % 1 1.5-14.5 % [facility]: [address] [facility] Normal Platelet Count, Automated 303 10 150 -450 10 [facility]: [address] [facility] Normal Neutrophils % 63.4 % 36.0-66.0 % Fin [facility]: [address] [facility] Normal Lymph % 28.5 % 24.0-44.0 % [facility]: [address] [facility] Normal [place] % 5.6 % 2.0-8.0 % [facility]: [address] [facility] Normal Eos % 1.7 % 0.0-3.0 % [facility]: [address] [place] [address] Normal Baso % 0.4 % 0.0-1.0 % [facility]: [address] [place] [address] Normal Immature Granulocyte % 0.4 % 0-3.0 % [facility]: [address] [place] [address] Normal Nucleated Red Blood Cell % 0.0 % 0- 0 % [facility]: [address] [place] [address] Normal Neutrophils # 8.1 10 1.5-8.5 10 [facility]: 0 [facility] Normal Lymph # 3.6 10 1.5-5.0 10 [facility]: [address] [place] [address] Normal [place] # 0.7 10 0.0-0.8 10 [facility]: 0 [facility] Normal Eos # 0.2 10 0.0-0.5 10 [facility]: 0 [facility] Normal Baso # 0.1 10 0.0-0.2 10 [facility]: 0 [facility] 02/20/2021 ESR (Erythrocyte Sedimentation Rate), Blood Hig h Erythrocyte Sedimentation Rate 36 mm/HR 0-20 mm/HR [facility]: [address] [place] [address] 02/20/2021 Hepatic Function Panel, Serum Normal AST/SG OT 12 U/L 7-37 U/L [facility]: [address] [place] [address] Normal ALT/SGPT 45 U/L 12-78 U/L [facility]: [address] [place] [address] High Alkaline Phosphatase 166 U/L 45-117 U/L [facility]: [address] [place] [address] Low Bilirubin,total < 0.1 mg/dL 0.2-1.0 mg/dL [facility]: [address] [place] [address] Normal Bilirubin,direct < 0.1 mg/dL 0.0-0.2 mg/dL [facility]: [address] [place] [address] Normal Total Protein 6.6 gm/dL 6.4-8.2 gm/d L [facility]: [address] [place] [address] Normal Albumin 3.4 gm/dL 3.2-5.2 gm/dL Drea l [facility]: [address] [place] [address] Low Albumin/globulin Ratio 1.1 1.2-2. 2 [facility]: [address] [place] [address] 02/20/2021 C Reactive Protein, QN, Serum or Plasma High C Reactive Protein Quantitativ 2.71 mg/dL 0.00-0.30 mg/dL [facility] Center: [address] [place] [address] 01/05/2021 Urinalysis, Dipstick, Auto No observation recorded. 01/05/2021 Test, Urine No observation kesha rded. 12/06/2020 Cbc High White Blood Count 12.8 10 4.0-10 .0 10 [facility]: [address] [place] [address] Normal Red Blood Count 4.47 10 4.00-5.40 10 [facility]: [address] [place] [address] Low Hemoglobin 11.4 g/dL 12.0-15.5 g/dL [facility]: [address] [place] [address] Normal Hematocrit 36.5 % 36.0-47.0 % [facility]: [address] [place] [address] Normal Mean Corpuscular Volume 81.7 fL 80.0 -96.0 fL [facility]: [address] [place] [address] Low Mean Corpuscular Hemoglobin 25.5 pg 27.0-33.0 pg [facility]: [address] [place] [address] Low Mean Corpuscular HGB Conc 31.2 g/dL 32.0-36.5 g/dL [facility]: [address] [place] [address] Normal Red Cell Distribution Width 13.8 % 1 1.5-14.5 % [facility]: [address] [facility] Normal Platelet Count, Automated 350 10 150 -450 10 [facility]: [address] [facility] Normal Nucleated Red Blood Cell % 0.0 % 0- 0 % [facility]: [address] [facility] 12/05/2020 CBC W/ Auto Diff High White Blood Count 16.0 10 4.0-10.0 10 [facility]: [address] [facility] Normal Red Blood Count 4.80 10 4.00-5.40 10 [facility]: [address] [facility] Normal Hemoglobin 12.1 g/dL 12.0-15.5 g/dL [facility]: [address] [place] [address] Normal Hematocrit 39.0 % 36.0-47.0 % [facility]: [address] [place] [address] Normal Mean Corpuscular Volume 81.3 fL 80.0 -96.0 fL [facility]: [address] [place] [address] Low Mean Corpuscular Hemoglobin 25.2 pg 27.0-33.0 pg [facility]: [address] [place] [address] Low Mean Corpuscular HGB Conc 31.0 g/dL 32.0-36.5 g/dL [facility]: 0 [facility] Normal Red Cell Distribution Width 13.8 % 1 1.5-14.5 % [facility]: 0 [facility] Normal Platelet Count, Automated 370 10 150 -450 10 [facility]: [address] [facility] High Neutrophils % 74.0 % 36.0-66.0 % [facility]: [address] [facility] Low Lymph % 19.3 % 24.0-44.0 % [facility]: [address] [facility] Normal [place] % 3.7 % 0.0-5.0 % [facility]: [address] [facility] Normal Eos % 2.1 % 0.0-3.0 % [facility]: [address] [facility] Normal Baso % 0.5 % 0.0-1.0 % [facility]: [address] [facility] Normal Immature Granulocyte % 0.4 % 0-3.0 % [facility]: 0 [facility] Normal Nucleated Red Blood Cell % 0.0 % 0- 0 % [facility]: [address] [facility] High Neutrophils # 11.8 10 1.5-8.5 10 [facility]: [address] [facility] Normal Lymph # 3.1 10 1.5-5.0 10 [facility]: [address] [facility] Normal [place] # 0.6 10 0.0-0.8 10 [facility]: 0 [facility] Normal Eos # 0.3 10 0.0-0.5 10 [facility]: [address] [facility] Normal Baso # 0.1 10 0.0-0.2 10 [facility]: [address] [facility] 12/05/2020 Hepatic Function Panel, Serum Low AST/SG OT 6 U/L 7-37 U/L [facility]: 0 [facility] Normal ALT/SGPT 19 U/L 12-78 U/L [facility]: 0 [facility] High Alkaline Phosphatase 136 U/L 45-117 U/L [facility]: 0 [facility] Low Bilirubin,total < 0.1 mg/dL 0.2-1.0 mg/dL [facility]: 0 [facility] Normal Bilirubin,direct < 0.1 mg/dL 0.0-0.2 mg/dL [facility]: 0 [facility] Normal Total Protein 7.4 gm/dL 6.4-8.2 gm/d L [facility]: 0 [facility] Normal Albumin 3.7 gm/dL 3.2-5.2 gm/dL [facility]: [address] [facility] Low Albumin/globulin Ratio 1.0 1.2-2. 2 [facility]: 0 [facility] 12/05/2020 BMP, Serum or Plasma Normal Glucose, Fastin g 90 mg/dL 70-100 mg/dL [facility]: 83 0 [facility] Normal Blood Urea Nitrogen 15 mg/dL 7-18 mg /dL [facility]: 0 [facility] Normal Creatinine for GFR 0.83 mg/dL 0.55-1 .30 mg/dL [facility]: 0 [facility] Normal Glomerular Filtration Rate > 60.0 >6 0 [facility]: 0 [facility] Normal Sodium Level 141 mEq/L 136-145 mEq/L [facility]: [address] [place] [address] Normal Potassium Serum 3.6 mEq/L 3.5-5.1 mE q/L [facility]: [address] [facility] High Chloride Level 110 mEq/L 98-107 mEq/ L [facility]: 0 [facility] Normal Carbon Dioxide Level 21 mEq/L 21-32 mEq/L [facility]: 0 [facility] Normal Anion Gap 10 mEq/L 8-16 mEq/L [facility]: [address] [place] [address] Normal Calcium Level 9.3 mg/dL 8.5-10.1 mg/ dL [facility]: 0 [facility] 12/05/2020 Lipase, Serum or Plasma Normal Lipase 165 U/L 73-393 U/L [facility]: 0 [facility] 12/05/2020 PT/INR High Prothrombin Time 23.9 secon ds 12.5-14.3 seconds [facility]: 0 [facility] Normal Inr 2.09 [facility]: [address] [place] [address] 12/05/2020 Partial Thromboplastin Time High Partial Thromboplastin Time 56.4 seconds 24.2-38.5 seconds [facility] nter: [address] [facility] 12/05/2020 Type + Screen, Serum Normal Blood Type O posit socrates [facility]: [address] [facility] Normal Ab Screen (Indirect Colin)vis negat socrates [facility]: [address] [facility] 12/05/2020 UA W/ Reflex to Culture Normal Appearance, Urine Rfx clear clear [facility]: 83 0 [facility] Normal Color, Urine Rfx colorless yellow Fi nal [facility]: [address] [facility] Normal pH,urine Rfx 5.0 units 5.0-9.0 units [facility]: [address] [facility] Normal Specific [place] Ur Auto Rfx 1.036 1.002-1.035 [facility]: [address] [facility] Normal Protein, Urine Auto Rfx negative mg/ dL negative mg/dL [facility]: [address] [facility] Normal Glucose, Urine (UA) Auto Rfx n egative mg/dL negative mg/dL [facility]: [address] [facility] Normal Ketone, Urine Auto Rfx negative mg/d L negative mg/dL [facility]: [address] [facility] Normal Urobilinogen, Urine Auto Rfx 0.2 mg/ dL 0.0-2.0 mg/dL [facility]: [address] [facility] Normal Bilirubin, Urine Auto Rfx negative n egative [facility]: [address] [facility] Normal Nitrite, Urine Auto Rfx negative neg ative [facility]: [address] [facility] Normal Leukocyte Esterase Ur Auto Rfx negat socrates negative [facility]: [address] [facility] High Blood, Urine Blood Rfx 1+ negati ve [facility]: [address] [facility] High WBC, Urine Auto Rfx 4 /hpf 0-3 /hpf [facility]: [address] [facility] Normal RBC, Urine Auto Rfx 0 /hpf 0-3 /hpf [facility]: [address] [facility] Normal Bacteria, Urine Auto Rfx negative ne gative [facility]: [address] [facility] Normal Squam Epithelial Cell Ur Aurfx 3 /hp f 0-6 /hpf [facility]: [address] [facility] Normal Mucus, Urine Rfx small negative Fin [facility]: [address] [facility] Normal Hyaline Cast, Urine Auto Rfx 0 /lpf 0-1 /lpf [facility]: [address] [facility] 11/28/2020 CBC W/ Auto Diff High White Blood Count 13.2 10 4.0-10.0 10 [facility]: 0 [facility] Normal Red Blood Count 4.71 10 4.00-5.40 10 [facility]: 0 [facility] Low Hemoglobin 11.9 g/dL 12.0-15.5 g/dL [facility]: [address] [facility] Normal Hematocrit 38.4 % 36.0-47.0 % [facility]: [address] [facility] Normal Mean Corpuscular Volume 81.5 fL 80.0 -96.0 fL [facility]: [address] [place] [address] Low Mean Corpuscular Hemoglobin 25.3 pg 27.0-33.0 pg [facility]: [address] [place] [address] Low Mean Corpuscular HGB Conc 31.0 g/dL 32.0-36.5 g/dL [facility]: [address] [facility] Normal Red Cell Distribution Width 14.0 % 1 1.5-14.5 % [facility]: 0 [facility] Normal Platelet Count, Automated 298 10 150 -450 10 [facility]: [address] [facility] Normal Neutrophils % 61.2 % 36.0-66.0 % Fin [facility]: [address] [facility] Normal Lymph % 28.6 % 24.0-44.0 % [facility]: [address] [facility] Normal [place] % 3.9 % 0.0-5.0 % [facility]: [address] [facility] High Eos % 5.5 % 0.0-3.0 % [facility]: [address] [facility] Normal Baso % 0.4 % 0.0-1.0 % Final [facility]: [address] [facility] Normal Immature Granulocyte % 0.4 % 0-3.0 % [facility]: [address] [facility] Normal Nucleated Red Blood Cell % 0.0 % 0- 0 % [facility]: [address] [facility] Normal Neutrophils # 8.1 10 1.5-8.5 10 [facility]: [address] [facility] Normal Lymph # 3.8 10 1.5-5.0 10 [facility]: [address] [facility] Normal [place] # 0.5 10 0.0-0.8 10 [facility]: [address] [facility] High Eos # 0.7 10 0.0-0.5 10 [facility]: [address] [facility] Normal Baso # 0.1 10 0.0-0.2 10 [facility]: [address] [facility] 11/28/2020 Urinalysis, Dipstick Normal Appearance, Urine hazy clear [facility]: [address] [facility] High Color, Urine red yellow [facility]: [address] [facility] Normal pH,urine 7.0 units 5.0-9.0 units [facility]: [address] [facility] Normal Specific [place] Urine Auto 1.005 1 .002-1.035 [facility]: [address] [facility] High Protein, Urine Auto 1+ mg/dL negativ e mg/dL [facility]: [address] [facility] Normal Glucose, Urine (UA) Auto negative mg /dL negative mg/dL [facility]: [address] [facility] Normal Ketone, Urine Auto negative mg/dL ne gative mg/dL [facility]: [address] [facility] Normal Urobilinogen, Urine Auto 0.2 mg/dL 0 .0-2.0 mg/dL [facility]: [address] [facility] Normal Bilirubin, Urine Auto negative negat socrates [facility]: [address] [facility] Normal Nitrite, Urine Auto negative negativ e [facility]: [address] [facility] High Leukocyte Esterase, Urine Auto 1+ negative [facility]: [address] [facility] High Blood, Urine Blood 3+ negative F [facility]: [address] [facility] High WBC, Urine Auto 4 /hpf 0-3 /hpf Drea [facility]: [address] [facility] High RBC, Urine Auto tntc /hpf 0-3 /hpf F [facility]: [address] [facility] Normal Bacteria, Urine Auto negative negati ve [facility]: [address] [facility] Normal Squamous Epithelial Cell Ur AU 1 /hp f 0-6 /hpf [facility]: [address] [facility] Normal Hyaline Cast, Urine Auto 0 /lpf 0-1 /lpf [facility]: [address] [facility] 11/28/2020 PT/INR Normal Prothrombin Time 13.5 secon ds 12.5-14.3 seconds [facility]: [address] [facility] Normal Inr 1.01 [facility]: [address] [facility] 11/28/2020 Hepatic Function Panel, Serum Normal AST/SG OT 14 U/L 7-37 U/L [facility]: [address] [facility] Normal ALT/SGPT 29 U/L 12-78 U/L [facility]: [address] [facility] High Alkaline Phosphatase 141 U/L 45-117 U/L [facility]: [address] [facility] Low Bilirubin,total 0.1 mg/dL 0.2-1.0 mg /dL [facility]: 0 [facility] Normal Bilirubin,direct < 0.1 mg/dL 0.0-0.2 mg/dL [facility]: 0 [facility] Normal Total Protein 6.8 gm/dL 6.4-8.2 gm/d L [facility]: [address] [facility] Normal Albumin 3.3 gm/dL 3.2-5.2 gm/dL Drea l [facility]: 0 [facility] Low Albumin/globulin Ratio 0.9 1.2-2. 2 [facility]: [address] [place] [address] 11/28/2020 BMP, Serum or Plasma Normal Glucose, Fastin g 100 mg/dL 70-100 mg/dL [facility]: 83 0 [facility] Normal Blood Urea Nitrogen 10 mg/dL 7-18 mg /dL [facility]: [address] [place] [address] Normal Creatinine for GFR 0.60 mg/dL 0.55-1 .30 mg/dL [facility]: [address] [place] [address] Normal Glomerular Filtration Rate > 60.0 >6 0 [facility]: 0 [facility] Normal Sodium Level 140 mEq/L 136-145 mEq/L [facility]: [address] [place] [address] Normal Potassium Serum 3.6 mEq/L 3.5-5.1 mE q/L [facility]: 0 [facility] Normal Chloride Level 106 mEq/L 98-107 mEq/ L [facility]: 0 [facility] Normal Carbon Dioxide Level 25 mEq/L 21-32 mEq/L [facility]: 0 [facility] Normal Anion Gap 9 mEq/L 8-16 mEq/L [facility]: 0 [facility] Normal Calcium Level 9.0 mg/dL 8.5-10.1 mg/ dL [facility]: [address] [place] [address] 11/28/2020 Type + Screen, Serum Normal Blood Type O posit socrates [facility]: [address] [place] [address] Normal Ab Screen (Indirect Colin)vis negat socrates [facility]: [address] [place] [address] 11/28/2020 Culture, Urine URINE,CLEAN CATCH No observation recorded. [facility]: [address] [place] [address] 10/19/2020 Cbc Blood venous High White Blood Count 11. 4 10 4.0-10.0 10 [facility]: [address] [place] [address] Blood venous Normal Red Blood Count 4.70 10 4.00- 5.40 10 [facility]: [address] [place] [address] Blood venous Low Hemoglobin 11.8 g/dL 12.0-15. 5 g/dL [facility]: [address] [place] [address] Blood venous Normal Hematocrit 38.5 % 36.0-47.0 % [facility]: [address] [place] [address] Blood venous Normal Mean Corpuscular Volume 81.9 fL 80.0-96.0 fL [facility]: [address] [place] [address] Blood venous Low Mean Corpuscular Hemoglob in 25.1 pg 27.0-33.0 pg [facility]: [address] [place] [address] Blood venous Low Mean Corpuscular HGB Conc 30.6 g/dL 32.0-36.5 g/dL [facility]: [address] [place] [address] Blood venous Normal Red Cell Distribution Wid th 13.7 % 11.5-14.5 % [facility]: [address] [place] [address] Blood venous Normal Platelet Count, Automated 293 10 150-450 10 [facility]: [address] [place] [address] Blood venous Normal Nucleated Red Blood Cell % 0. 0 % 0-0 % [facility]: [address] [place] [address] 10/19/2020 BMP, Serum or Plasma Blood venous Normal Glu cose, Fasting 93 mg/dL 70-100 mg/dL [facility] nter: [address] [place] [address] Blood venous Normal Blood Urea Nitrogen 11 mg/dL 7-18 mg/dL [facility]: [address] [place] [address] Blood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
--- OUTSIDE RECORDS SUMMARY | 2021-10-04 04:48 | CCD ---
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 51121957 Problem Lumbosacral spondylosis without myelopathy M47.817 Active confirmed 97037068 Problem Migraine, unspecified, not intractable, without status migrainosus G43.909 Active confirmed 78702785 Problem Chronic migraine without aur a, not intractable, without status migrainosus G43.709 Active confirmed [id number] Problem Other chronic pain G89.29 Active confirmed 8 7821838 Problem Chronic migraine G43.709 Active confirmed 42 8816616 Status post traumatic brain injury ALLERGIES Allergen (clinical drug ingredient) Drug/Non Drug Allergy do cumented on EMR Reaction Allergy Type Onset Date Status Kiwi Anaphylaxis Non Drug Allergy Active tramadol Tramadol Unknown Drug Allergy Active enoxaparin Lovenox(ND Code:[address]-42) Unknown Drug Allergy Active famotidine Pepcid(ND Code:[address]-90) Nausea/Vomiting/Rash Drug A llergy Active promethazine Phenergan(ND Code:[address]-76) Nausea/Vomiting Drug A llergy Active Avocados Anaphylaxis Non Drug Allergy Active poractant carrol Pork-derived Products Unknown Drug Allergy Active Latex Exam Gloves Hives/anaphylaxis Drug Allergy Active Bananas Anaphylaxis Non Drug Allergy Active hydroxychloroquine Plaquenil(NDC Code:[address]-48) Anaphylaxis Drug Allergy Active ENCOUNTERS from 1989 to 2021-08-09 Encounter Location Date Provider Diagnosis [facility] [address] [facility] [phone] [place] [address] Jul, Onur Persaud Encounter for gyneco logical examination with abnormal finding Z01.411 ; Cervical cancer screening Z12.4 and Irregular bleeding N92.6 IMMUNIZATIONS No Information SOCIAL HISTORY Tobacco Use: Social History Observation Description Date Details (start date - stop date) Former Smoker Sex Assigned At : Social History Observation Description Sex Assigned At Unknown Education: Question Answer Notes Level of Education: College Language: Question Answer Notes Languages spoken: Arabic Anabaptist: Question Answer Notes Anabaptist No caodaism beliefs that would impact health [...] FOR REFERRAL No Information VITAL SIGNS Weight 268.4 lbs Jul, Weight-kg 121.74 kg Jul, Height 64 in Jul, BMI 46.07 kg/m2 Jul, Blood pressure systolic 134 mm Hg Jul, Blood pressure diastolic 92 mm Hg Jul, MEDICATIONS Medication SIG (Take, Route, Frequency, Duration) Notes Start Da te End Date Status Cyclobenzaprine HCl 10 MG TAKE ONE TABLET BY MOUTH FRANCINE RY 8 HOURS NEEDED FOR MUSCLE SPASMS Oral for 10 Active KlonoPIN 1 MG 1 tablet Orally 3 times a day 07/04/212199 Active Albuterol ALBUTEROL NEBULIZERS PRN Active Fluoxetine HCl 40 MG TAKE 2 CAPSULES Orally Once a day for 30 Active May Have Benlysta 200 mg subcutaneous weekly EVERYDAY SUNDAY Not-Taking Albuterol Sulfate HFA 108 (90 Base) MCG/ACT 1 puff as needed Inhalation every 4 hrs Active QUEtiapine Fumarate 300 MG TAKE 1 TABLET BY MOUTH ONCE A DAY AT BEDTIME Oral for 30 Active Ondansetron HCl 4 MG 1 tablet Orally every 8 hours as needed for naus ea Active PROzac 40 MG 2 caps Orally Daily Not -Taking predniSONE 10 MG TAKE 2 TABLETS BY MOUTH ONCE A DAY FOR 7 DAYS THEN 1 TABLET ONCE A DAY FOR 7 DAYS Oral for 14 Not-Taking EpiPen PRN Active NIFEdipine ER 30 MG 1 tablet on an empty stomach Orally Once a day Active Fiorinal 50-325-40 MG 1 capsule as needed Orally t hree times daily as needed for 30 days none in 1 week Not-Taking Benlysta 200 MG/ML as directed Subcutaneous weekly Active Ipratropium-Albuterol 0.5-2.5 (3) MG/3ML 3 ml as needed Inha lation every 6 hrs Active DuoNeb 0.5-2.5 (3) MG/3ML 3 ml as needed Inhalation every 6 hrs Not-Taking Acetaminophen 325 MG 1 tablet as needed Orally every 4 hrs Not-Taking Fioricet 50-325-40 MG 1 tablet as needed Orally ev darlene 4 hrs PRN headache MDD3 for 30 days Active Botox 100 UNIT for IM injection at the head , neck and shoulder muscles ICD G43.709 every 3 months Botox 07/05/21 10:40 16 Jun, 2021 Active Ambien 10 MG 1 tablet at bedtime as needed Orally Once a day 07/04/212199 Active hydroCHLOROthiazide 12.5 MG 1 tablet in the morning Orally Once a day Not-Taking Eliquis 5MG ORAL BID Active SEROquel 300 MG 1 tablet at bedtime Orally Once a day for 30 day(s) Not-Taking HYDROcodone-Acetaminophen 5-325 MG 1 tablet as needed Orally twice daily as needed MDD2 for 30 days PRN 07/04/212199Jul, Active lamoTRIgine 150 MG 1 tablet Orally Once a day every night Active Lyrica 75 MG 1 capsule Orally Once a day 07/04/21 0900 Active BD Allergy Syringe Not-Ta ozzy SEROquel 50 MG 1 cap Orally MORNING AND LUNCH Active Keppra 750 MG 2 tabs Orally bid Not- Taking Cetirizine HCl 10 MG 1 tablet Orally Once a day for 30 day(s) Active prednisoLONE _ 1 tablet in the morning with food or milk Orally PATIENT STATES SHE IS CURRENTLY ON A TAPERING DOSE OF PREDNISONE Not-Taking Botox 100 UNIT for IM injection at the head , neck and shoulder muscles ICD G43.709 BOTOX on 02/21/21 at 1:00 07 Feb, 2021 Not-Taking Botox 100 UNIT for IM injection at the head , neck and shoulder muscles ICD G43.709 BOTOX APPT ON 11/22/2020 AT 2PM. Nov, Not-Taking Ambien 10 MG 1 tablet at bedtime as needed Orally Once a day Not-Taking lamoTRIgine 100 MG 1 tablet Orally bedtime Active PROCEDURES No Information RESULTS No Results REASON FOR VISIT REF FROM [facility] FOR IRREGULAR BLEEDING AND DISCUSS HYSTEREC [facility] MEDICAL (GENERAL) HISTORY Type Description Date Medical [...] Notes Treatment Notes Treatm ent Clinical Notes Jul, Encounter for gynecological examination with abnormal finding (ICD- 10 - Z01.411) Jul, Cervical cancer screening (ICD-10 - Z12.4) Jul, Irregular bleeding (ICD-10 - N92.6) PLAN OF TREATMENT Treatment Notes Test Name Order Date PAP REQUEST FOR SERVICE 2021-08-09 Next Appt Details Provider Name:Divine Gan, 2020-10-0 8 02:40:00 PM, [address] [facility] [phone], [place], [address], Provider Name:Kris Barrientos, 2021-09-27 09:30:00 AM, [address], , [place], [address], Provider Name:Kris Barrientos, 2021-10-17 10:40:00 AM, [address], , [place], [address], Provider Name:Kris Barrientos, 2021-11-16 11:15:00 AM, [address], , [place], [address], Insurance Providers Payer Name Payer Address Payer Phone Insured Name Patient Relati onship to Insured Coverage Start Date Coverage End Date [facility] DEPT [address] [facility] [phone] WINSOME RODRIGUEZ self
--- OUTSIDE RECORDS SUMMARY | 2021-10-04 04:48 | CCD ---
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 RxNorm Banana Anaphylaxis Active 3509590 RxNorm Latex Active 8745 RxNorm Promethazine Rash Active Notes: LOVANOX - Reaction: seizure thre [...] MOUTH EVERY 8 HOURS NEEDED FOR PAIN Active Not available Ajovy Syringe 225 mg/1.5 mL subcutaneous Completed 09/13/2020 albuterol sulfate 1.25 mg/3 mL solution for nebulization USE 1 VIAL VIA NEBULIZER FOUR TIMES A DAY DIRECTED FOR 15 DAYS Active Not available albuterol sulfate 2.5 mg/3 mL (0.083 %) solution for nebulizatio n Active Not available albuterol sulfate HFA 90 mcg/actuation a erosol inhaler INHALE ONE PUFF BY MOUTH EVERY 4 TO 6 HOURS NEEDED Active Not available alcohol swabs Active Not available amoxicillin 875 mg-potassium clavulanate 125 mg tablet Completed 09/13/2020 aspirin 81 mg tablet,delayed release Completed 09/13/2020 azithromycin 250 mg tablet Active Not a vailable bacitracin 500 unit/gram topical ointment Completed 09/13/2020 BD Allergy Syringe 1 mL 28 gauge x 1/2" Completed 07/19/2021 BD Luer-Candice Syringe 3 mL 25 gauge x 1" Completed 07/19/2021 Benlysta 200 mg/mL subcutaneous auto-injector Active Not available buspirone 5 mg tablet TAKE ONE TABLET BY MOUTH TWICE A DAY Completed bcepoaahlo-wqfpojvtukjqk-zvskngrs 50 mg- 300 mg-40 mg capsule TAKE ONE CAPSULE BY MOUTH EVERY 4 HOURS NEEDED Completed 03/01/2021 pfbxbnpvib-ngwayhwwgubod-fhqlgdim 50 mg- 325 mg-40 mg tablet TAKE [...] A DAY Active Not available emtricitabine 200 mg-rilpivirine 25 mg-t enofovir disprox 300 mg tablet Take 1 tablet every day by oral route. Active 07/16/2021 Not available emtricitabine 200 mg-tenofovir disoproxi l [...] BY MOUTH EVERY DAY Active Not available hydrocodone 5 mg-acetaminophen 325 mg ta blet TAKE ONE TABLET BY MOUTH TWICE A DAY NEEDED MAXIMUM DAILY DOSE 2 TABLETS Active Not available hydroxyzine HCl 25 mg tablet TAKE ONE TABLET BY MOUTH THREE TIMES A DAY FOR ANXIETY Active Not available ibuprofen 600 mg tablet TAKE ONE TABLET BY MOUTH EVERY 6 HOURS NEEDED FOR PAIN Completed 11/08/2020 ibuprofen 800 mg tablet Completed 07/19/20 21 ipratropium 0.5 mg-albuterol 3 mg (2.5 mg base)/3 mL nebulizatio n soln Active Not available Isentress 400 mg tablet TAKE ONE TABLET BY MOUTH TWICE A DAY Active No t available ketoconazole 2 % topical cream Active N ot available lamotrigine 100 mg tablet TAKE ONE TABLET BY MOUTH EVERY MORNING Active Not available lamotrigine 150 mg tablet TAKE 1 TABLET BY MOUTH EVERY NIGHT Active Not available lamotrigine 25 mg tablet TAKE TWO TABLETS BY MOUTH TWICE A DAY FOR WEEK 5 Active Not available levetiracetam 1,000 mg tablet 1 Completed [...] tablet Completed 09/13/20 tramadol 50 mg tablet Active Not availa ble Vitamin C 500 mg tablet Completed 09/13/20 [...] 2 CAPSULES ONCE A DAY AT NIGHT Active Not available Problems Name Status Onset Date Source Body [...] History of Deep Vein Thrombosis Active 03/07/2021 Procedures Date Name Performed by 11/25/2020 Ligation of Fallopian Tube Information n ot available 11/08/2020 Electrocardiogram [facility] [address] [place] [address] ( (Work Place) Notes: section x5, Involuntary D&C, Appendectomy, Tonsillectomy, Gallbladder Results Lab Results Date Name Specimen Result Interpretation Description Value Range Status Address 07/31/2021 UA W/ Reflex to Culture Normal Appearance, Urine Rfx clear clear [facility]: [address] [facility] Normal Color, Urine Rfx colorless yellow [facility]: [address] [facility] Normal pH,urine Rfx 7.0 units 5.0-9.0 units [facility]: [address] [facility] Normal Specific [place] Ur Auto Rfx 1.002 1.002-1.035 [facility]: [address] [facility] Normal Protein, Urine Auto Rfx negative mg/ dL negative mg/dL [facility]: [address] [facility] Normal Glucose, Urine (UA) Auto Rfx n egative mg/dL negative mg/dL [facility]: [address] [facility] Normal Ketone, Urine Auto Rfx negative mg/d L negative mg/dL [facility]: [address] [facility] Normal Urobilinogen, Urine Auto Rfx 0.2 mg/ dL 0.0-2.0 mg/dL [facility]: [address] [facility] Normal Bilirubin, Urine Auto Rfx negative n egative [facility]: [address] [facility] Normal Nitrite, Urine Auto Rfx negative neg ative [facility]: [address] [facility] Normal Leukocyte Esterase Ur Auto Rfx negat socrates negative [facility]: [address] [facility] High Blood, Urine Blood Rfx 2+ negati ve [facility]: [address] [facility] Normal WBC, Urine Auto Rfx 0 /hpf 0-3 /hpf [facility]: [address] [facility] Normal RBC, Urine Auto Rfx 1 /hpf 0-3 /hpf [facility]: [address] [facility] High Bacteria, Urine Auto Rfx 1+ nega tive [facility]: [address] [facility] Normal Squam Epithelial Cell Ur Aurfx 2 /hp f 0-6 /hpf [facility]: [address] [facility] Normal Hyaline Cast, Urine Auto Rfx 0 /lpf 0-1 /lpf [facility]: [address] [facility] 07/31/2021 CBC W/ Auto Diff Normal White Blood Count 8.4 10 4.0-10.0 10 [facility]: 0 [facility] Normal Red Blood Count 4.49 10 4.00-5.40 10 [facility]: [address] [facility] Low Hemoglobin 10.7 g/dL 12.0-15.5 g/dL [facility]: [address] [facility] Low Hematocrit 34.9 % 36.0-47.0 % [facility]: [address] [facility] Low Mean Corpuscular Volume 77.7 fL 80.0 -96.0 fL [facility]: 0 [facility] Low Mean Corpuscular Hemoglobin 23.8 pg 27.0-33.0 pg [facility]: 0 [facility] Low Mean Corpuscular HGB Conc 30.7 g/dL 32.0-36.5 g/dL [facility]: 0 [facility] High Red Cell Distribution Width 15.4 % 1 1.5-14.5 % [facility]: [address] [facility] Normal Platelet Count, Automated 303 10 150 -450 10 [facility]: [address] [facility] High Neutrophils % 66.6 % 36.0-66.0 % [facility]: [address] [facility] Low Lymph % 22.6 % 24.0-44.0 % Final [facility]: [address] [facility] Normal [place] % 5.5 % 2.0-8.0 % Final [facility]: [address] [facility] High Eos % 4.6 % 0.0-3.0 % [facility]: [address] [facility] Normal Baso % 0.5 % 0.0-1.0 % Final [facility]: [address] [facility] Normal Immature Granulocyte % 0.2 % 0-3.0 % [facility]: [address] [facility] Normal Nucleated Red Blood Cell % 0.0 % 0- 0 % [facility]: [address] [facility] Normal Neutrophils # 5.6 10 1.5-8.5 10 [facility]: [address] [facility] Normal Lymph # 1.9 10 1.5-5.0 10 [facility]: [address] [facility] Normal [place] # 0.5 10 0.0-0.[address] [facility]: [address] [facility] Normal Eos # 0.4 10 0.0-0.5 10 [facility]: [address] [facility] Normal Baso # 0.0 10 0.0-0.[address] [facility]: [address] [facility] 07/31/2021 Istat B-HCG Normal Istat B-HCG < 5.0 F [facility]: [address] [facility] 07/31/2021 Istat Chem8+ Panel Low Istat HCT 35.0 % 38. 0-51.0 % [facility]: [address] [place] [address] High Istat Glucose 123 mg/dL 70-105 mg/dL [facility]: [address] [place] [address] Normal Istat Sodium 138 mEq/L 136-145 mEq/L [facility]: [address] [place] [address] Normal Istat Potassium 4.3 mEq/L 3.5-5.1 mE q/L [facility]: [address] [place] [address] Normal Istat Ca++ 4.6 mg/dL 4.5-5.3 mg/dL [facility]: [address] [place] [address] Normal Istat Chloride 105 mEq/L 98-109 mEq/ L [facility]: [address] [place] [address] Normal Istat CO2 24.0 mm/L 23.0-27.0 mm/L [facility]: [address] [place] [address] Normal Istat BUN 14 mg/dL 8-26 mg/dL [facility]: [address] [place] [address] Normal Istat Creatinine 0.7 mg/dL 0.6-1.3 m g/dL [facility]: [address] [place] [address] 07/31/2021 [place] ENDOCERVIX No observation recorded. [facility]: [address] [place] [address] 07/31/2021 PT/INR High Prothrombin Time 23.2 secon ds 12.7-14.5 seconds [facility]: [address] [place] [address] Normal Inr 2.01 [facility]: [address] [place] [address] 07/31/2021 Partial Thromboplastin Time High Partial Thromboplastin Time 63.9 seconds 25.9-37.0 seconds [facility] nter: [address] [place] [address] 07/31/2021 Lactic Acid, Serum or Plasma Normal Lactic Acid Sepsis Protocol 1.4 mmol/L 0.4-2.0 mmol/L [facility]: [address] [place] [address] 07/31/2021 Hepatic Function Panel, Serum Normal AST/SG OT 17 U/L 7-37 U/L [facility]: [address] [facility] Normal ALT/SGPT 24 U/L 12-78 U/L [facility]: [address] [facility] Normal Alkaline Phosphatase 117 U/L 45-117 U/L [facility]: [address] [facility] Low Bilirubin,total 0.1 mg/dL 0.2-1.0 mg /dL [facility]: [address] [facility] Normal Bilirubin,direct < 0.1 mg/dL 0.0-0.2 mg/dL [facility]: [address] [facility] Normal Total Protein 6.4 gm/dL 6.4-8.2 gm/d L [facility]: [address] [facility] Normal Albumin 3.2 gm/dL 3.2-5.2 gm/dL Drea l [facility]: [address] [facility] Low Albumin/globulin Ratio 1.0 1.2-2. 2 [facility]: [address] [facility] 07/31/2021 Amylase, Serum or Plasma Normal Amylase 40 U/L 25-115 U/L [facility]: 0 [facility] 07/31/2021 Lipase, Serum or Plasma Normal Lipase 91 U/L 7 3-393 U/L [facility]: [address] [facility] 07/31/2021 Chlamydia, GC & Trich Amp Normal Ch lamydia DNA Amplification negative negative [facility]ter: [address] [facility] Normal GC DNA Amplification negative negati ve [facility]: [address] [facility] Normal Trichomonas Vaginalis (Amp) not dete cted negative [facility]: [address] [facility] 07/31/2021 Influenza A/B RSV Covid Amp Normal Influenza a Amplification negative negative [facility] Ce nter: [address] [facility] Normal Influenza B Amplification negative n egative [facility]: [address] [facility] Normal RSV Amplification negative negative [facility]: [address] [facility] Normal Sars Covid-19 Amplification negative negative [facility]: [address] [facility] 07/31/2021 TSH, Serum or Plasma Normal Thyroid Stimulating Hormone 0.444 uIU/mL 0.358-3.740 uIU/mL [facility] nter: [address] [facility] 07/31/2021 T4, Free, Serum Low Free T4 0.66 NG/dL 0.76 -1.46 NG/dL [facility]: [address] [facility] 07/31/2021 Type + Screen, Serum Normal Blood Type O posit socrates [facility]: [address] [facility] Normal Ab Screen (Indirect Colin)vis negat socrates [facility]: [address] [facility] 07/31/2021 Cardiovascular Assessment Panel, Serum Normal CPK Creatine Phosphokinase 67 U/L 26-192 U/L [facility]: [address] [facility] Normal CK-mb Value Mass < 1.0 NG/mL <3.6 NG /mL [facility]: [address] [facility] Normal mb/CK Relative Index 1.49 < or =4 [facility]: [address] [facility] Normal Troponin I < 0.02 NG/mL < 0.10 NG/mL [facility]: [address] [facility] 07/31/2021 Ethanol, Blood Normal Ethyl Alcohol (Ethano l) < 0.003 % 0.000- 0.010 % [facility]: [address] [facility] 07/31/2021 Salicylate, Quantitative, Serum Low Salicylate Level < 1.7 mg/dL 5.0-30.0 mg/dL [facility] nter: [address] [facility] 07/31/2021 Acetaminophen, Serum Low Acetaminophen L evel < 2.0 ug/mL 10.0- 30.0 ug/mL [facility]: [address] [facility] 07/31/2021 CBC W/ Auto Diff Normal White Blood Count 8.5 10 4.0-10.0 10 Final [facility]: [address] [facility] Normal Red Blood Count 4.04 10 4.00-5.40 10 [facility]: [address] [facility] Low Hemoglobin 9.7 g/dL 12.0-15.5 g/dL F inal [facility]: [address] [facility] Low Hematocrit 31.4 % 36.0-47.0 % [facility]: [address] [facility] Low Mean Corpuscular Volume 77.7 fL 80.0 -96.0 fL [facility]: [address] [facility] Low Mean Corpuscular Hemoglobin 24.0 pg 27.0-33.0 pg [facility]: [address] [facility] Low Mean Corpuscular HGB Conc 30.9 g/dL 32.0-36.5 g/dL [facility]: [address] [facility] High Red Cell Distribution Width 15.3 % 1 1.5-14.5 % [facility]: [address] [facility] Normal Platelet Count, Automated 302 10 150 -450 10 [facility]: [address] [facility] Normal Neutrophils % 59.7 % 36.0-66.0 % Fin [facility]: [address] [facility] Normal Lymph % 28.8 % 24.0-44.0 % Final [facility]: [address] [facility] Normal [place] % 5.9 % 2.0-8.0 % Final [facility]: [address] [facility] High Eos % 4.7 % 0.0-3.0 % [facility]: [address] [facility] Normal Baso % 0.5 % 0.0-1.0 % [facility]: [address] [facility] Normal Immature Granulocyte % 0.4 % 0-3.0 % [facility]: [address] [facility] Normal Nucleated Red Blood Cell % 0.0 % 0- 0 % [facility]: [address] [facility] Normal Neutrophils # 5.1 10 1.5-8.5 10 [facility]: [address] [facility] Normal Lymph # 2.4 10 1.5-5.0 10 [facility]: [address] [facility] Normal [place] # 0.5 10 0.0-0.[address] [facility]: [address] [facility] Normal Eos # 0.4 10 0.0-0.5 10 [facility]: [address] [facility] Normal Baso # 0.0 10 0.0-0.[address] [facility]: [address] [facility] 07/31/2021 Drug Screen, Urine Normal Amphetamines Leve l Urine negative negative [facility]: [address] 0 [facility] Normal Barbiturates Urine negative negative [facility]: [address] [facility] Normal Benzodiazepines Urine negative negat socrates [facility]: [address] [facility] Normal Cannabinoids Urine negative negative [facility]: [address] [facility] Normal Cocaine Metabolite Urine negative ne gative [facility]: [address] [facility] Normal Methadone Urine negative negative [facility]: [address] [facility] High Opiates Urine positive negative [facility]: [address] [facility] Normal Phencyclidine Urine negative negativ e [facility]: [address] [facility] 07/08/2021 Lactic Acid Level, Lactate Normal L actic Acid Level, Lactate 1.6 mmol/L 0.4-2.0 mmol/L [facility] nter: [address] [facility] 07/08/2021 Cbc High White Blood Count 18.9 10 4.0-10 .0 10 [facility]: [address] [facility] Low Red Blood Count 3.72 10 4.00-5.40 10 [facility]: 0 [facility] Low Hemoglobin 9.2 g/dL 12.0-15.5 g/dL F inal [facility]: 0 [facility] Low Hematocrit 29.3 % 36.0-47.0 % [facility]: [address] [place] [address] Low Mean Corpuscular Volume 78.8 fL 80.0 -96.0 fL [facility]: [address] [place] [address] Low Mean Corpuscular Hemoglobin 24.7 pg 27.0-33.0 pg [facility]: [address] [place] [address] Low Mean Corpuscular HGB Conc 31.4 g/dL 32.0-36.5 g/dL [facility]: [address] [place] [address] High Red Cell Distribution Width 15.6 % 1 1.5-14.5 % [facility]: [address] [place] [address] Normal Platelet Count, Automated 391 10 150 -450 10 [facility]: [address] [place] [address] Normal Nucleated Red Blood Cell % 0.0 % 0- 0 % [facility]: [address] [place] [address] 07/08/2021 BMP, Serum or Plasma High Glucose, Fastin g 115 mg/dL 70-100 mg/dL [facility]: [address] 0 [facility] Normal Blood Urea Nitrogen 10 mg/dL 7-18 mg /dL [facility]: [address] [place] [address] Normal Creatinine for GFR 0.67 mg/dL 0.55-1 .30 mg/dL [facility]: [address] [place] [address] Normal Glomerular Filtration Rate > 60.0 >6 0 [facility]: 0 [facility] Normal Sodium Level 142 mEq/L 136-145 mEq/L [facility]: 0 [facility] D Potassium Serum 4.8 mEq/L 3.5-5.1 mE q/L [facility]: [address] [place] [address] High Chloride Level 109 mEq/L 98-107 mEq/ L [facility]: [address] [place] [address] Normal Carbon Dioxide Level 25 mEq/L 21-32 mEq/L [facility]: [address] [place] [address] Normal Anion Gap 8 mEq/L 8-16 mEq/L [facility]: [address] [place] [address] Normal Calcium Level 8.8 mg/dL 8.5-10.1 mg/ dL [facility]: [address] [place] [address] 07/08/2021 Hepatic Function Panel, Serum Normal AST/SG OT 15 U/L 7-37 U/L [facility]: [address] [place] [address] Normal ALT/SGPT 41 U/L 12-78 U/L [facility]: [address] [place] [address] Normal Alkaline Phosphatase 104 U/L 45-117 U/L [facility]: [address] [place] [address] Low Bilirubin,total 0.1 mg/dL 0.2-1.0 mg /dL [facility]: [address] [place] [address] Normal Bilirubin,direct < 0.1 mg/dL 0.0-0.2 mg/dL [facility]: [address] [place] [address] Low Total Protein 6.1 gm/dL 6.4-8.2 gm/d L [facility]: [address] [place] [address] Low Albumin 3.0 gm/dL 3.2-5.2 gm/dL [facility]: [address] [place] [address] Low Albumin/globulin Ratio 1.0 1.2-2. 2 [facility]: [address] [place] [address] 07/07/2021 Istat ABG High Istat pH 7.473 units 7.350-7. 450 units [facility]: [address] [place] [address] Normal Istat pCO2 38.4 mmHg 35.0-45.0 mmHg [facility]: [address] [place] [address] Low Istat pO2 70.0 mmHg 80-105 mmHg [facility]: [address] [place] [address] High Istat TCO2 29.0 mmol/L 23.0-27.0 mmo l/L [facility]: [address] [place] [address] High Istat HCO3 28.1 mmol/L 22.0-26.0 mmo l/L [facility]: [address] [place] [address] High Istat Base Excess 5.0 mmol/L -2.0-3. 0 mmol/L [facility]: [address] [place] [address] Normal Istat So2 95 % 95-98 % [facility]: [address] [place] [address] 07/07/2021 CBC W/ Auto Diff High White Blood Count 14.1 10 4.0-10.0 10 [facility]: [address] [place] [address] Normal Red Blood Count 4.23 10 4.00-5.40 10 [facility]: [address] [place] [address] Low Hemoglobin 10.3 g/dL 12.0-15.5 g/dL [facility]: [address] [place] [address] Low Hematocrit 32.7 % 36.0-47.0 % [facility]: [address] [place] [address] Low Mean Corpuscular Volume 77.3 fL 80.0 -96.0 fL [facility]: [address] [place] [address] Low Mean Corpuscular Hemoglobin 24.3 pg 27.0-33.0 pg [facility]: [address] [place] [address] Low Mean Corpuscular HGB Conc 31.5 g/dL 32.0-36.5 g/dL [facility]: [address] [place] [address] High Red Cell Distribution Width 15.2 % 1 1.5-14.5 % [facility]: [address] [place] [address] Normal Platelet Count, Automated 374 10 150 -450 10 [facility]: [address] [place] [address] Normal Nucleated Red Blood Cell % 0.0 % 0- 0 % [facility]: [address] [place] [address] 07/07/2021 Differential Panel, Blood Normal Neutrophil s 56 % 28-66 % Final [facility]: [address] [facility] Normal Lymphocytes 30 % 16-44 % Final [facility]: [address] [facility] High Monocytes 7 % 0-5 % Final [facility]: [address] [facility] High Eosinophils 5 % 0-3 % Final [facility]: [address] [facility] Normal Basophils 1 % 0-1 % Final [facility]: [address] [facility] Normal Atypical Lymph 1 % 0-5 % [facility]: [address] [facility] Normal Hypochromasia 1+ Final [facility]: [address] [facility] Normal Anisocytosis 1+ Final [facility]: [address] [facility] Normal Microcytosis 1+ Final [facility] [address] [facility] Normal Ovalocytes 1+ Final [facility]: [address] [facility] Normal Smudge Cells 1+ Final [facility]: [address] [facility] Normal Platelet Clumps small amt Fin al [facility]: [address] [facility] 07/07/2021 Platelet Count, Estimate, Blood Normal Platelet Estimate normal normal Final [facility] nter: [address] [facility] 07/07/2021 Influenza A/B RSV Covid Amp Normal Influenza a Amplification negative negative [facility] nter: [address] [facility] Normal Influenza B Amplification negative n egative [facility]: [address] [facility] Normal RSV Amplification negative negative [facility]: [address] [facility] Normal Sars Covid-19 Amplification negative negative [facility]: [address] [facility] 07/07/2021 Cardiovascular Assessment Panel, Serum Normal CPK Creatine Phosphokinase 45 U/L 26-192 U/L [facility]: [address] [facility] Normal CK-mb Value Mass < 1.0 NG/mL <3.6 NG /mL [facility]: [address] [facility] Normal mb/CK Relative Index 2.22 < or =4 [facility]: 0 [facility] Normal Troponin I < 0.02 NG/mL < 0.10 NG/mL [facility]: [address] [facility] 07/07/2021 Hepatic Function Panel, Serum Normal AST/SG OT 15 U/L 7-37 U/L [facility]: [address] [facility] Normal ALT/SGPT 30 U/L 12-78 U/L [facility]: [address] [facility] Normal Alkaline Phosphatase 111 U/L 45-117 U/L [facility]: 0 [facility] Low Bilirubin,total 0.1 mg/dL 0.2-1.0 mg /dL [facility]: 0 [facility] Normal Bilirubin,direct < 0.1 mg/dL 0.0-0.2 mg/dL [facility]: 0 [facility] Normal Total Protein 6.6 gm/dL 6.4-8.2 gm/d L [facility]: 0 [facility] Normal Albumin 3.2 gm/dL 3.2-5.2 gm/dL Drea l [facility]: 0 [facility] Low Albumin/globulin Ratio 0.9 1.2-2. 2 [facility]: 0 [facility] 07/07/2021 BMP, Serum or Plasma Normal Glucose, Fastin g 97 mg/dL 70-100 mg/dL [facility]: 83 0 [facility] Normal Blood Urea Nitrogen 9 mg/dL 7-18 mg/ dL [facility]: 0 [facility] Normal Creatinine for GFR 0.68 mg/dL 0.55-1 .30 mg/dL [facility]: 0 [facility] Normal Glomerular Filtration Rate > 60.0 >6 0 [facility]: [address] [facility] Normal Sodium Level 141 mEq/L 136-145 mEq/L [facility]: [address] [facility] Low Potassium Serum 3.4 mEq/L 3.5-5.1 mE q/L [facility]: [address] [facility] Normal Chloride Level 105 mEq/L 98-107 mEq/ L [facility]: [address] [facility] Normal Carbon Dioxide Level 28 mEq/L 21-32 mEq/L [facility]: [address] [facility] Normal Anion Gap 8 mEq/L 8-16 mEq/L [facility]: [address] [facility] Normal Calcium Level 8.8 mg/dL 8.5-10.1 mg/ dL [facility]: [address] [facility] 07/07/2021 Drug Screen, Urine Normal Amphetamines Leve l Urine negative negative [facility]: [address] [facility] High Barbiturates Urine positive negative [facility]: [address] [facility] High Benzodiazepines Urine positive negat socrates [facility]: [address] [facility] Normal Cannabinoids Urine negative negative [facility]: [address] [facility] Normal Cocaine Metabolite Urine negative ne gative [facility]: [address] [facility] Normal Methadone Urine negative negative Fi nal [facility]: [address] [facility] High Opiates Urine positive negative Drea l [facility]: [address] [facility] Normal Phencyclidine Urine negative negativ e [facility]: [address] [facility] 07/07/2021 ESR (Erythrocyte Sedimentation Rate), Blood Hig h Erythrocyte Sedimentation Rate 52 mm/HR 0-20 mm/HR [facility]: [address] [facility] 07/07/2021 D-dimer, Quant, Plasma Normal D-dimer Quant 333.30 NG/mL <500 NG/mL [facility]: [address] [facility] 07/07/2021 Lactic Acid, Serum or Plasma Panic High Lactic Acid Sepsis Protocol 4.1 mmol/L 0.4-2.0 mmol/L [facility]: [address] [facility] 07/07/2021 Respiratory Virus Panel [id number] No observ ation recorded. [facility]: 0 [facility] 07/07/2021 Magnesium, Serum or Plasma Normal Magnesium Level 1.8 mg/dL 1.8-2.4 mg/dL [facility]: 83 0 [facility] 07/07/2021 Pro BNP (Pro B-type Natriuretic Peptide), Serum or Plasma Normal Nt-pro BNP 30 pg/mL <125 pg/mL [facility]: [address] [place] [address] 07/07/2021 TIBC (Total Iron-binding Capacity), Serum Low Iron (Fe) 25 ug/dL 50-170 ug/dL [facility] nter: [address] [place] [address] Normal Total Iron Binding Capacity 376 ug/d L 250-450 ug/dL [facility]: [address] [place] [address] Low Percent Saturation 6.6 % 13.2-45.0 % [facility]: 0 [facility] 07/07/2021 C3 (Complement), Serum or Plasma Normal Complement C3 166 mg/dL 90-180 mg/dL [facility] nter: 0 [facility] 07/07/2021 C4 (Complement), Serum or Plasma High Com plement C4 46 mg/dL 10-40 mg/dL [facility]: 83 0 [facility] 07/07/2021 Vitamin B12, Serum Normal Vitamin B12 Level 850 pg/mL 247-911 pg/mL [facility]: 83 0 [facility] 07/07/2021 Folate, Serum Normal Folate 10.6 NG/mL >5.4 NG /mL [facility]: 0 [facility] 07/07/2021 Ferritin, Serum or Plasma Normal Ferritin 19 NG/mL 8-252 NG/mL [facility]: [address] [place] [address] 07/07/2021 C Reactive Protein, QN, Serum or Plasma High C Reactive Protein Quantitativ 3.58 mg/dL 0.00-0.30 mg/dL Final [facility]: [address] [facility] 07/07/2021 Glucose, Fingerstick, Blood High Bedside Glucose 178 mg/dL 70- 105 mg/dL [facility]: [address] 0 [facility] 07/07/2021 Lactic Acid, Serum or Plasma Panic High Lactic Acid Sepsis Protocol 4.8 mmol/L 0.4-2.0 mmol/L Final [facility]: [address] [facility] 07/07/2021 Procalcitonin, Serum Normal Procalcitonin 0.09 [facility]: [address] [facility] 07/07/2021 Lactic Acid Level, Lactate Panic High Lactic Acid Level, Lactate 4.3 mmol/L 0.4-2.0 mmol/L [facility]: [address] [facility] 07/07/2021 Lactic Acid, Serum or Plasma Panic High Lactic Acid Sepsis Protocol 3.7 mmol/L 0.4-2.0 mmol/L [facility]: [address] [facility] 07/07/2021 Periph Smear for Path Review Normal Slide R eview report [facility]: [address] [facility] Normal Source peripheral smear [facility]: [address] [facility] Normal Reason for Review atypical lymphs [facility]: [address] [facility] 07/07/2021 Mrsa Screen, PCR Normal MRSA PCR Screen no t detected negative [facility]: [address] [facility] 07/07/2021 Culture, Blood BLOOD No observation recorded. [facility]: [address] [facility] 07/07/2021 Pathology Request for Service Periph eral Smear-path Review [facility]: 83 0 [facility] 07/07/2021 LDH Lactate Dehydrogenase Normal LD H Lactate Dehydrogenase 245 U/L 84-246 U/L [facility] nter: [address] [facility] 07/07/2021 Acetaminophen, Serum Low Acetaminophen L evel 8.7 ug/mL 10.0- 30.0 ug/mL [facility]: [address] [facility] 07/07/2021 Haptoglobin Normal Haptoglobin 208 mg/dL 33-27 8 mg/dL [facility]: [address] [facility] 07/07/2021 Complement C2, Serum Normal Complement C2 2.8 mg/dL 1.4-3.3 mg/dL [facility]: [address] 0 [facility] 07/02/2021 SARS CoV 2 RNA (COVID-19), QL, portable sawyer-PCR, Respiratory Specim en Covid-19 PCR negative negative [facility]): 4 [facility] 07/02/2021 Lactic Acid La 1.1 mmol/L 0.4-2.0 mmo l/L [facility]): 4 [facility] 07/02/2021 CMP, Serum or Plasma Glu 100 mg/dL 74- 106 mg/dL [facility] ([facility]): 4 [facility] Bun 9 mg/dL 7-18 mg/dL [facility] ([facility]): 4 [facility] Cre 0.67 mg/dL 0.6-1.0 mg/dL [facility] ([facility]): 4 [facility] Na 141 mmol/L 136-145 mmol/L [facility] ([facility]): 4 [facility] Low K 3.3 mmol/L 3.5-5.1 mmol/L [facility] ([facility]): 4 [facility] Cl 103 mmol/L 98-107 mmol/L [facility] ([facility]): 4 [facility] Co2 27 mmol/L 21-32 mmol/L [facility] ([facility]): 4 [facility] Ca 8.9 mg/dL 8.5-10.1 mg/dL [facility] ([facility]): 4 [facility] Gap 11.0 mmol/L 5-12 mmol/L [facility] ([facility]): 4 [facility] Gfr >90 mL/min [facility] ([facility]): 4 [facility] Low Ast 9 U/L 15-37 U/L Final [facility] ([facility]): 4 [facility] Alt 23 U/L 12-78 U/L Final [facility] ([facility]): 4 [facility] High Alk 119 U/L 46-116 U/L [facility] ([facility]): 4 [facility] Low Tbili 0.1 mg/dL 0.2-1.0 mg/dL [facility] ([facility]): 4 [facility] Tp 6.9 g/dL 6.4-8.2 g/dL Final [facility] ([facility]): 4 [facility] Low Alb 3.1 gm/dL 3.4-5.0 gm/dL [facility] ([facility]): 4 [facility] 07/02/2021 Bnp Bnp 28 pg/mL 0-125 pg/mL [facility] ([facility]): 4 [facility] 07/02/2021 Urine Microscopic High Urbc tntc /hpf 0-3 /h pf [facility] ([facility]): 4 [facility] High UWBC Reflex 0-2 /hpf 0-5 /hpf [facility] ([facility]): 4 [facility] Uec 1+ /hpf 0 /hpf [facility] pital ([facility]): 4 [facility] High Ub Reflex 1+ none seen Final [facility] ([facility]): 4 [facility] Uyeast present Final [facility] ([facility]): 4 [facility] 07/02/2021 Urinalysis Complete, Reflex Culture Ucol yellow Final [facility] ([facility]): 4 [facility] Uapp slighty cloudy Final [facility] ([facility]): 4 [facility] Ugl negative mg/dL negative mg/dL [facility] ([facility]): 4 [facility] Ubil negative negative [facility] ([facility]): 4 [facility] Uket negative mg/dL negative mg/dL [facility] ([facility]): 4 [facility] Sgu 1.010 1.005-1.030 Final [facility] ([facility]): 4 [facility] High Ubl Reflex 3+(large) negative Final [facility] ([facility]): 4 [facility] Yimi 6.5 5.0-9.0 [facility]): 4 [facility] Upro Reflex negative mg/dL negative mg/dL Final [facility] ([facility]): 4 [facility] Uuro normal(0.2-1) mg/dL 0-1 mg/dL F in[facility] ([facility]): 4 [facility] Unit Reflex negative negative Final [facility] ([facility]): 4 [facility] Ule Reflex negative negative Final [facility] ([facility]): 4 [facility] 07/02/2021 Magnesium, Serum or Plasma mg 2.0 mg/ dL 1.8-2.4 mg/dL Final [facility] ([facility]): 4 [facility] 07/02/2021 Troponin-high Sensitivity Trophs 5.4 NG /L 0-60.4 NG/L Final [facility] ([facility]): 4 [facility] 07/02/2021 Troponin-high Sensitivity Trophs 4.6 NG /L 0-60.4 NG/L [facility] ([facility]): 4 [facility] 07/02/2021 TORCH Respiratory Panel Tadeno not detected detected not detected Final [facility] ([facility]): 4 Full [facility] [id number] not detected detected not detected Final [facility] ([facility]): 4 [facility] [id number] not detected detected not detected Final [facility] ([facility]): 4 [facility] [id number] not detected detected not detected Final [facility] ([facility]): 4 [facility] [id number] not detected detected not detected Final [facility] ([facility]): 4 [facility] Tcorosars2 not detected detected not detected Final [facility] ([facility]): 4 [facility] Thummet not detected detected not de tected Final [facility] ([facility]): 4 [facility] Thumrhino detected detected not dete cted Final [facility] ([facility]): 4 [facility] Tflua not detected detected not dete cted Final [facility] ([facility]): 4 [facility] Tflub not detected detected not dete cted Final [facility] ([facility]): 4 [facility] Tparaflu1 not detected detected not detected Final [facility] ([facility]): 4 [facility] Tparaflu2 not detected detected not detected Final [facility] ([facility]): 4 [facility] Tparaflu3 not detected detected not detected Final [facility] ([facility]): 4 [facility] Tparaflu4 not detected detected not detected Final [facility] ([facility]): 4 [facility] Trsv not detected detected not detec jina Final [facility] ([facility]): 4 [facility] Tbordpara not detected detected not detected Final [facility] ([facility]): 4 [facility] Tbord not detected detected not dete cted Final [facility] ([facility]): 4 [facility] Tchlamypne not detected detected not detected Final [facility] ([facility]): 4 [facility] Tmycpne not detected detected not de tected [facility] ([facility]): 4 [facility] 07/02/2021 CBC W/ Auto Diff Wbc 8.3 K/mm3 4.0-10. 0 K/mm3 [facility] ([facility]): 4 [facility] Rbc 4.10 M/mm3 4.00-5.50 M/mm3 [facility] ([facility]): 4 [facility] Low Hgb 10.2 gm/dL 12.0-16.0 gm/dL [facility] ([facility]): 4 [facility] Low Hct 30.9 % 36.0-48.8 % [facility] ([facility]): 4 [facility] Low Mcv 75.4 fL 80-96 fL [facility] 4 [facility] Low Mch 24.9 pg 27.0-31.0 pg Final [facility] ([facility]): 4 [facility] Mchc 33.0 g/dL 32.0-36.0 g/dL Final [facility] ([facility]): 4 [facility] High Rdw 14.8 % 10.0-14.5 % Final [facility] ([facility]): 4 [facility] Plt 336 K/mm3 172-450 K/mm3 Final [facility] ([facility]): 4 [facility] Mpv 10.2 fL 9.0-13.0 fL Final [facility] ([facility]): 4 [facility] High Gr% 88.9 % 50-80.0 % [facility] 4 [facility] High Ig% 0.4 % 0.0-0.2 % [facility] 4 [facility] Low Ly% 8.8 % 25.0-50.0 % [facility] ([facility]): 4 [facility] Low Mo% 1.8 % 2.0-10.0 % [facility] ([facility]): 4 [facility] [employer] Eo% 0.0 % 0-5.0 % [facility] 4 [facility] Ba% 0.1 % 0.0-2.0 % [facility] 4 [facility] Gr# 7.4 K/mm3 2.0-8.00 K/mm3 [facility] ([facility]): 4 [facility] Ig# 0.0 K/mm3 0.0-0.2 K/mm3 [facility] ([facility]): 4 [facility] Low Ly# 0.7 K/mm3 1.0-5.0 K/mm3 [facility] ([facility]): 4 [facility] Mo# 0.2 K/mm3 0.10-1.20 K/mm3 [facility] ([facility]): 4 [facility] Eo# 0.0 K/mm3 0.0-0.5 K/mm3 Final [facility] ([facility]): 4 [facility] Ba# 0.0 K/mm3 0.0-0.2 K/mm3 [facility] ([facility]): 4 [facility] 07/02/2021 Gas Panel, Venous Blood High Vph 7.44 7.3 1-7.41 [facility] ([facility]): 4 [facility] Low Vpco2 35.1 mmHg 41-51 mmHg [facility] ([facility]): 4 [facility] [employer] High Vpo2 89 mmHg 35-42 mmHg [facility] ([facility]): 4 [facility] High Vo2 Sat 97.3 % 68-77 % [facility] ([facility]): 4 [facility] Low Vhco3 23.5 mEq/L 24.0-25.0 mEq/L [facility] ([facility]): 4 [facility] Vbe 0.1 -3.0-3.0 [facility] ([facility]): 4 [facility] Vctco2 24.6 mmol/L 23.0-32.0 mmol/L [facility] ([facility]): 4 [facility] 07/02/2021 CMP, Serum or Plasma High Glu 164 mg/dL 74- 106 mg/dL [facility] ([facility]): 4 [facility] Low Bun 5 mg/dL 7-18 mg/dL [facility] ([facility]): 4 [facility] Cre 0.72 mg/dL 0.6-1.0 mg/dL [facility] ([facility]): 4 [facility] Na 141 mmol/L 136-145 mmol/L [facility] ([facility]): 4 [facility] K 3.7 mmol/L 3.5-5.1 mmol/L [facility] ([facility]): 4 [facility] Cl 104 mmol/L 98-107 mmol/L [facility] ([facility]): 4 [facility] Co2 25 mmol/L 21-32 mmol/L [facility] ([facility]): 4 [facility] Ca 8.7 mg/dL 8.5-10.1 mg/dL [facility] ([facility]): 4 [facility] Gap 12.0 mmol/L 5-12 mmol/L [facility] ([facility]): 4 [facility] Gfr >90 mL/min [facility] ([facility]): 4 [facility] Low Ast 14 U/L 15-37 U/L [facility] ([facility]): 4 [facility] Alt 31 U/L 12-78 U/L [facility] ([facility]): 4 [facility] Alk 113 U/L 46-116 U/L [facility] ([facility]): 4 [facility] Low Tbili < 0.1 mg/dL 0.2-1.0 mg/dL [facility] ([facility]): 4 [facility] Tp 6.9 g/dL 6.4-8.2 g/dL [facility] ([facility]): 4 [facility] Low Alb 3.0 gm/dL 3.4-5.0 gm/dL [facility] ([facility]): 4 [facility] 07/02/2021 C Reactive Protein High Crp 55.8 mg/L 0.0-3 .0 mg/L [facility] ([facility]): 4 [facility] 04/02/2021 CBC W/ Auto Diff High White Blood Count 13.0 10 4.0-10.0 10 [facility]: [address] [place] [address] Normal Red Blood Count 4.29 10 4.00-5.40 10 [facility]: [address] [facility] Low Hemoglobin 10.4 g/dL 12.0-15.5 g/dL [facility]: [address] [place] [address] Low Hematocrit 33.8 % 36.0-47.0 % [facility]: [address] [place] [address] Low Mean Corpuscular Volume 78.8 fL 80.0 -96.0 fL [facility]: [address] [place] [address] Low Mean Corpuscular Hemoglobin 24.2 pg 27.0-33.0 pg [facility]: 0 [facility] Low Mean Corpuscular HGB Conc 30.8 g/dL 32.0-36.5 g/dL [facility]: [address] [place] [address] High Red Cell Distribution Width 15.7 % 1 1.5-14.5 % [facility]: [address] [place] [address] Normal Platelet Count, Automated 361 10 150 -450 10 [facility]: 0 [facility] Normal Neutrophils % 62.9 % 36.0-66.0 % [facility]: [address] [facility] Normal Lymph % 28.4 % 24.0-44.0 % [facility]: 0 [facility] Normal [place] % 5.2 % 2.0-8.0 % [facility]: [address] [place] [address] Normal Eos % 2.5 % 0.0-3.0 % [facility]: [address] [place] [address] Normal Baso % 0.5 % 0.0-1.0 % [facility]: 0 [facility] Normal Immature Granulocyte % 0.5 % 0-3.0 % [facility]: [address] [place] [address] Normal Nucleated Red Blood Cell % 0.0 % 0- 0 % [facility]: 0 [facility] Normal Neutrophils # 8.2 10 1.5-8.5 10 [facility]: [address] [facility] Normal Lymph # 3.7 10 1.5-5.0 10 [facility] System: 830 [facility] Normal [place] # 0.7 10 0.0-0.[address] [facility]: [address] [place] [address] Normal Eos # 0.3 10 0.0-0.5 10 [facility]: 0 [facility] Normal Baso # 0.1 10 0.0-0.[address] [facility]: [address] [place] [address] 04/02/2021 PT/INR Normal Prothrombin Time 13.6 secon ds 12.5-14.3 seconds [facility]: [address] [place] [address] Normal Inr 1.02 [facility]: [address] [place] [address] 04/02/2021 Partial Thromboplastin Time Normal Partial Thromboplastin Time 34.5 seconds 24.2-38.5 seconds [facility] nter: [address] [place] [address] 04/02/2021 Cardiovascular Assessment Panel, Serum Normal CPK Creatine Phosphokinase 155 U/L 26-192 U/L [facility]: [address] [place] [address] Normal CK-mb Value Mass < 1.0 NG/mL <3.6 NG /mL [facility]: [address] [place] [address] Normal mb/CK Relative Index 0.65 < or =4 [facility]: [address] [place] [address] Normal Troponin I < 0.02 NG/mL < 0.10 NG/mL [facility]: [address] [place] [address] 04/02/2021 Hepatic Function Panel, Serum Normal AST/SG OT 12 U/L 7-37 U/L [facility]: [address] [place] [address] Normal ALT/SGPT 27 U/L 12-78 U/L [facility]: [address] [place] [address] High Alkaline Phosphatase 132 U/L 45-117 U/L [facility]: [address] [place] [address] Low Bilirubin,total 0.1 mg/dL 0.2-1.0 mg /dL [facility]: [address] [place] [address] Normal Bilirubin,direct < 0.1 mg/dL 0.0-0.2 mg/dL [facility]: [address] [place] [address] Normal Total Protein 6.4 gm/dL 6.4-8.2 gm/d L [facility]: [address] [place] [address] Normal Albumin 3.2 gm/dL 3.2-5.2 gm/dL Drea l [facility]: [address] [place] [address] Low Albumin/globulin Ratio 1.0 1.2-2. 2 [facility]: [address] [facility] 04/02/2021 C-reactive Protein, Qualitative, Serum Normal Glucose, Fasting 88 mg/dL 70-100 mg/dL [facility] nter: 0 [facility] Normal Blood Urea Nitrogen 7 mg/dL 7-18 mg/ dL [facility]: [address] [place] [address] Normal Creatinine for GFR 0.71 mg/dL 0.55-1 .30 mg/dL [facility]: [address] [facility] Normal Glomerular Filtration Rate > 60.0 >6 0 [facility]: [address] [facility] Normal Sodium Level 142 mEq/L 136-145 mEq/L [facility]: [address] [place] [address] Normal Potassium Serum 3.6 mEq/L 3.5-5.1 mE q/L [facility]: [address] [place] [address] High Chloride Level 111 mEq/L 98-107 mEq/ L [facility]: 0 [facility] Normal Carbon Dioxide Level 28 mEq/L 21-32 mEq/L [facility]: 0 [facility] Low Anion Gap 3 mEq/L 8-16 mEq/L [facility]: [address] [place] [address] Low Calcium Level 8.3 mg/dL 8.5-10.1 mg/ dL [facility]: [address] [facility] 04/02/2021 Amylase, Serum or Plasma Normal Amylase 30 U/L 25-115 U/L [facility]: [address] [facility] 04/02/2021 Lipase, Serum or Plasma Low Lipase 45 U/L 7 3-393 U/L [facility]: [address] [facility] 04/02/2021 Ethanol, Blood Normal Ethyl Alcohol (Ethano l) < 0.003 % 0.000- 0.010 % [facility]: 83 0 [facility] 04/02/2021 Lactic Acid, Serum or Plasma Normal Lactic Acid Sepsis Protocol 1.6 mmol/L 0.4-2.0 mmol/L [facility]: [address] [facility] 04/02/2021 Type + Screen, Serum Normal Blood Type O posit socrates [facility]: [address] [facility] Normal Ab Screen (Indirect Colin)vis negat socrates [facility]: [address] [facility] 04/02/2021 UA W/ Reflex to Culture Normal Appearance, Urine Rfx clear clear [facility]: 83 0 [facility] Normal Color, Urine Rfx yellow yellow [facility]: [address] [facility] Normal pH,urine Rfx 6.0 units 5.0-9.0 units [facility]: [address] [facility] Normal Specific [place] Ur Auto Rfx 1.018 1.002-1.035 [facility]: [address] [facility] Normal Protein, Urine Auto Rfx negative mg/ dL negative mg/dL [facility]: [address] [facility] Normal Glucose, Urine (UA) Auto Rfx n egative mg/dL negative mg/dL [facility]: [address] [facility] Normal Ketone, Urine Auto Rfx negative mg/d L negative mg/dL [facility]: [address] [facility] Normal Urobilinogen, Urine Auto Rfx 0.2 mg/ dL 0.0-2.0 mg/dL [facility]: [address] [facility] Normal Bilirubin, Urine Auto Rfx negative n egative [facility]: [address] [facility] Normal Nitrite, Urine Auto Rfx negative neg ative [facility]: [address] [facility] Normal Leukocyte Esterase Ur Auto Rfx negat socrates negative [facility]: [address] [facility] Normal Blood, Urine Blood Rfx negative nega tive [facility]: [address] [facility] Normal WBC, Urine Auto Rfx 0 /hpf 0-3 /hpf [facility]: [address] [facility] Normal RBC, Urine Auto Rfx 0 /hpf 0-3 /hpf [facility]: [address] [facility] Normal Bacteria, Urine Auto Rfx negative ne gative [facility]: [address] [facility] Normal Squam Epithelial Cell Ur Aurfx 3 /hp f 0-6 /hpf [facility]: [address] [facility] Normal Mucus, Urine Rfx small negative Fin al [facility]: [address] [facility] Normal Hyaline Cast, Urine Auto Rfx 0 /lpf 0-1 /lpf [facility]: [address] [facility] 04/02/2021 Drug Screen, Urine Normal Amphetamines Leve l Urine negative negative [facility]: 83 0 [facility] High Barbiturates Urine positive negative [facility]: [address] [facility] Normal Benzodiazepines Urine negative negat socrates [facility]: [address] [facility] High Cannabinoids Urine positive negative [facility]: [address] [facility] Normal Cocaine Metabolite Urine negative ne gative [facility]: [address] [facility] Normal Methadone Urine negative negative Fi nal [facility]: [address] [facility] Normal Opiates Urine negative negative Drea l [facility]: [address] [facility] Normal Phencyclidine Urine negative negativ e [facility]: [address] [facility] 03/07/2021 CBC W/ Auto Diff Blood venous No observation re corded. [facility]: [address] [facility] [address], [place] 03/07/2021 TSH + Free T4, Serum Blood venous No observa tion recorded. 03/07/2021 CMP, Serum or Plasma Blood venous No observa tion recorded. 03/07/2021 Lipid Panel, Serum Blood venous No observation recorded. [facility]: [address] [facility] [address], [place] 03/07/2021 HbA1C (Hemoglobin a1C), Blood Blood venous No observation recorded. [facility]: [address] [facility] [address], [place] 03/07/2021 Vitamin D, 25-Hydroxy, Total, Serum Blood venous No observation recorded. [facility]: [address] [facility] [address], [place] 03/07/2021 Lupus Anticoagulant, Plasma Blood venous No observation recorded. [facility]: [address] [facility] [address], [place] 03/05/2021 Levetiracetam, Serum Normal Levetiracetam ( Keppra) 10.2 ug/mL 10.0-40.0 ug/mL [facility]: 83 0 [facility] 02/20/2021 Istat Chem8+ Panel Low Istat HCT 37.0 % 38. 0-51.0 % [facility]: [address] [facility] Normal Istat Glucose 94 mg/dL 70-105 mg/dL [facility]: [address] [facility] Normal Istat Sodium 140 mEq/L 136-145 mEq/L [facility]: [address] [facility] Normal Istat Potassium 4.3 mEq/L 3.5-5.1 mE q/L [facility]: [address] [facility] Normal Istat Ca++ 5.0 mg/dL 4.5-5.3 mg/dL [facility]: [address] [facility] Normal Istat Chloride 107 mEq/L 98-109 mEq/ L [facility]: [address] [facility] Normal Istat CO2 26.0 mm/L 23.0-27.0 mm/L [facility]: [address] [facility] Normal Istat BUN 9 mg/dL 8-26 mg/dL [facility]: [address] [facility] Low Istat Creatinine 0.5 mg/dL 0.6-1.3 m g/dL [facility]: [address] [facility] 02/20/2021 CBC W/ Auto Diff High White Blood Count 12.7 10 4.0-10.0 10 [facility]: [address] [facility] Normal Red Blood Count 4.60 10 4.00-5.40 10 [facility]: [address] [facility] Low Hemoglobin 11.4 g/dL 12.0-15.5 g/dL [facility]: [address] [facility] Normal Hematocrit 37.4 % 36.0-47.0 % [facility]: [address] [facility] Normal Mean Corpuscular Volume 81.3 fL 80.0 -96.0 fL [facility]: [address] [facility] Low Mean Corpuscular Hemoglobin 24.8 pg 27.0-33.0 pg [facility]: 0 [facility] Low Mean Corpuscular HGB Conc 30.5 g/dL 32.0-36.5 g/dL [facility]: [address] [place] [address] High Red Cell Distribution Width 15.2 % 1 1.5-14.5 % [facility]: [address] [facility] Normal Platelet Count, Automated 303 10 150 -450 10 [facility]: [address] [facility] Normal Neutrophils % 63.4 % 36.0-66.0 % [facility]: [address] [facility] Normal Lymph % 28.5 % 24.0-44.0 % [facility]: [address] [facility] Normal [place] % 5.6 % 2.0-8.0 % [facility]: [address] [facility] Normal Eos % 1.7 % 0.0-3.0 % [facility]: [address] [facility] Normal Baso % 0.4 % 0.0-1.0 % [facility]: [address] [facility] Normal Immature Granulocyte % 0.4 % 0-3.0 % [facility]: [address] [facility] Normal Nucleated Red Blood Cell % 0.0 % 0- 0 % [facility]: [address] [facility] Normal Neutrophils # 8.1 10 1.5-8.5 10 [facility]: [address] [facility] Normal Lymph # 3.6 10 1.5-5.0 10 [facility]: [address] [facility] Normal [place] # 0.7 10 0.0-0.[address] [facility]: [address] [facility] Normal [place] # 0.2 10 0.0-0.5 10 [facility]: [address] [facility] Normal Baso # 0.1 10 0.0-0.[address] [facility]: [address] [facility] 02/20/2021 ESR (Erythrocyte Sedimentation Rate), Blood Hig h Erythrocyte Sedimentation Rate 36 mm/HR 0-20 mm/HR [facility]: 0 [facility] 02/20/2021 Hepatic Function Panel, Serum Normal AST/SG OT 12 U/L 7-37 U/L [facility]: [address] [place] [address] Normal ALT/SGPT 45 U/L 12-78 U/L [facility]: [address] [place] [address] High Alkaline Phosphatase 166 U/L 45-117 U/L [facility]: [address] [place] [address] Low Bilirubin,total < 0.1 mg/dL 0.2-1.0 mg/dL [facility]: [address] [place] [address] Normal Bilirubin,direct < 0.1 mg/dL 0.0-0.2 mg/dL [facility]: 0 [facility] Normal Total Protein 6.6 gm/dL 6.4-8.2 gm/d L [facility]: 0 [facility] Normal Albumin 3.4 gm/dL 3.2-5.2 gm/dL [facility]: [address] [place] [address] Low Albumin/globulin Ratio 1.1 1.2-2. 2 [facility]: 0 [facility] 02/20/2021 C Reactive Protein, QN, Serum or Plasma High C Reactive Protein Quantitativ 2.71 mg/dL 0.00-0.30 mg/dL [facility]: [address] [place] [address] 01/05/2021 Urinalysis, Dipstick, Auto No observation recorded. 01/05/2021 Test, Urine No observation kesha rded. 12/06/2020 Cbc High White Blood Count 12.8 10 4.0-10 .0 10 [facility]: [address] [place] [address] Normal Red Blood Count 4.47 10 4.00-5.40 10 [facility]: [address] [place] [address] Low Hemoglobin 11.4 g/dL 12.0-15.5 g/dL [facility]: [address] [place] [address] Normal Hematocrit 36.5 % 36.0-47.0 % [facility]: [address] [place] [address] Normal Mean Corpuscular Volume 81.7 fL 80.0 -96.0 fL [facility]: [address] [place] [address] Low Mean Corpuscular Hemoglobin 25.5 pg 27.0-33.0 pg [facility]: [address] [place] [address] Low Mean Corpuscular HGB Conc 31.2 g/dL 32.0-36.5 g/dL [facility]: [address] [place] [address] Normal Red Cell Distribution Width 13.8 % 1 1.5-14.5 % [facility]: [address] [place] [address] Normal Platelet Count, Automated 350 10 150 -450 10 [facility]: [address] [place] [address] Normal Nucleated Red Blood Cell % 0.0 % 0- 0 % [facility]: [address] [place] [address] 12/05/2020 CBC W/ Auto Diff High White Blood Count 16.0 10 4.0-10.0 10 [facility]: [address] [place] [address] Normal Red Blood Count 4.80 10 4.00-5.40 10 [facility]: [address] [place] [address] Normal Hemoglobin 12.1 g/dL 12.0-15.5 g/dL [facility]: [address] [facility] Normal Hematocrit 39.0 % 36.0-47.0 % [facility]: [address] [facility] Normal Mean Corpuscular Volume 81.3 fL 80.0 -96.0 fL Final [facility]: [address] [place] [address] Low Mean Corpuscular Hemoglobin 25.2 pg 27.0-33.0 pg Final [facility]: [address] [place] [address] Low Mean Corpuscular HGB Conc 31.0 g/dL 32.0-36.5 g/dL Final [facility]: [address] [place] [address] Normal Red Cell Distribution Width 13.8 % 1 1.5-14.5 % [facility]: [address] [place] [address] Normal Platelet Count, Automated 370 10 150 -450 10 [facility]: 0 [facility] High Neutrophils % 74.0 % 36.0-66.0 % [facility]: [address] [facility] Low Lymph % 19.3 % 24.0-44.0 % Final [facility]: [address] [facility] Normal [place] % 3.7 % 0.0-5.0 % Final [facility]: [address] [facility] Normal Eos % 2.1 % 0.0-3.0 % [facility]: 0 [facility] Normal Baso % 0.5 % 0.0-1.0 % Final [facility]: [address] [facility] Normal Immature Granulocyte % 0.4 % 0-3.0 % [facility]: [address] [facility] Normal Nucleated Red Blood Cell % 0.0 % 0- 0 % [facility]: 0 [facility] High Neutrophils # 11.8 10 1.5-8.5 10 [facility]: [address] [facility] Normal Lymph # 3.1 10 1.5-5.0 10 [facility]: [address] [facility] Normal [place] # 0.6 10 0.0-0.[address] [facility]: [address] [facility] Normal [place]os # 0.3 10 0.0-0.5 10 [facility]: [address] [facility] Normal Baso # 0.1 10 0.0-0.[address] [facility]: [address] [facility] 12/05/2020 Hepatic Function Panel, Serum Low AST/SG OT 6 U/L 7-37 U/L [facility]: [address] [facility] Normal ALT/SGPT 19 U/L 12-78 U/L [facility]: 0 [facility] High Alkaline Phosphatase 136 U/L 45-117 U/L [facility]: 0 [facility] Low Bilirubin,total < 0.1 mg/dL 0.2-1.0 mg/dL [facility]: 0 [facility] Normal Bilirubin,direct < 0.1 mg/dL 0.0-0.2 mg/dL [facility]: [address] [facility] Normal Total Protein 7.4 gm/dL 6.4-8.2 gm/d L [facility]: 0 [facility] Normal Albumin 3.7 gm/dL 3.2-5.2 gm/dL Drea l [facility]: 0 [facility] Low Albumin/globulin Ratio 1.0 1.2-2. 2 [facility]: 0 [facility] 12/05/2020 BMP, Serum or Plasma Normal Glucose, Fastin g 90 mg/dL 70-100 mg/dL [facility]: 83 0 [facility] Normal Blood Urea Nitrogen 15 mg/dL 7-18 mg /dL [facility]: 0 [facility] Normal Creatinine for GFR 0.83 mg/dL 0.55-1 .30 mg/dL [facility]: 0 [facility] Normal Glomerular Filtration Rate > 60.0 >6 0 [facility]: [address] [facility] Normal Sodium Level 141 mEq/L 136-145 mEq/L [facility]: [address] [facility] Normal Potassium Serum 3.6 mEq/L 3.5-5.1 mE q/L [facility]: [address] [facility] High Chloride Level 110 mEq/L 98-107 mEq/ L [facility]: [address] [facility] Normal Carbon Dioxide Level 21 mEq/L 21-32 mEq/L [facility]: [address] [facility] Normal Anion Gap 10 mEq/L 8-16 mEq/L [facility]: [address] [facility] Normal Calcium Level 9.3 mg/dL 8.5-10.1 mg/ dL [facility]: [address] [facility] 12/05/2020 Lipase, Serum or Plasma Normal Lipase 165 U/L 73-393 U/L [facility]: [address] [facility] 12/05/2020 PT/INR High Prothrombin Time 23.9 secon ds 12.5-14.3 seconds [facility]: 0 [facility] Normal Inr 2.09 [facility]: 0 [facility] 12/05/2020 Partial Thromboplastin Time High Partial Thromboplastin Time 56.4 seconds 24.2-38.5 seconds [facility] nter: [address] [facility] 12/05/2020 Type + Screen, Serum Normal Blood Type O posit socrates [facility]: [address] [facility] Normal Ab Screen (Indirect Colin)vis negat socrates [facility]: [address] [facility] 12/05/2020 UA W/ Reflex to Culture Normal Appearance, Urine Rfx clear clear [facility]: 83 0 [facility] Normal Color, Urine Rfx colorless yellow Fi nal [facility]: [address] [facility] Normal pH,urine Rfx 5.0 units 5.0-9.0 units [facility]: [address] [facility] Normal Specific [place] Ur Auto Rfx 1.036 1.002-1.035 [facility]: [address] [facility] Normal Protein, Urine Auto Rfx negative mg/ dL negative mg/dL [facility]: [address] [facility] Normal Glucose, Urine (UA) Auto Rfx n egative mg/dL negative mg/dL [facility]: [address] [facility] Normal Ketone,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
--- OUTSIDE RECORDS SUMMARY | 2021-10-04 04:48 | CCD | Continuity of Care Document ---
Author Author Ghada MCHUGH M.D. Organization Unknown Address [address] [place] [address] Phone [phone] Care Team Providers Care Geospatial Developer Name Role Phone Ester Nunn AUTM [phone] Rishabh Riley M.D. AUTM [phone] AUTM Unavailable Problems Description No Information Available Social History Type Date Description Comments Sex Unknown Allergies, Adverse Reactions, Alerts Description No Information Available Medications Description No Information Available Immunizations Description No Information Available Vital Signs Description No Information Available Results Description No Information Available Procedures Date Code Description Status 07/07/2021 96028 Critical Care First 30-74 Minute s Completed 02/23/2021 70399 Critical Care First 30-74 Minute s Completed 02/22/2021 99768 Critical Care Addl 30 Min Comple jina 02/22/2021 60996 Critical Care First 30-74 Minute s Completed Medical Devices Description No Information Available Encounters Type Date Location Provider Dx Diagnosis Office Visit 07/07/2021 1:[facility]a [facility] Kanwal Vasquez M.D. R09.02 Hypoxemia J45.901 Unspecified asthma with (acu te) exacerbation E87.2 Acidosis D72.829 Elevated white blood cell co unt, unspecified Office Visit 02/23/2021 1:23a [facility] Luis pratt D.O. J96.00 Acute respiratory failure, unsp w hypoxi a or hypercapnia Z86.69 Personal history of dis of t he nervous sys and sense organs Office Visit 02/22/2021 1:23a [facility] Luis pratt D.O. J96.00 Acute respiratory failure, unsp w hypoxi a or hypercapnia I51.7 Cardiomegaly D72.829 Elevated white blood cell co unt, unspecified Z86.69 Personal history of dis of t he nervous sys and sense organs Assessments Date Code Description Provider 07/07/2021 R09.02 Hypoxemia Kanwal Mchugh M.D. 07/07/2021 J45.901 Unspecified asthma with (acute) exacerbation Kanwal Mchugh M.D. 07/07/2021 E87.2 Acidosis Kanwal Mchugh M.D. 07/07/2021 D72.829 Elevated white blood cell count, unspecified Kanwal Mchugh M.D. 02/23/2021 J96.00 Acute respiratory fa ilure, unspecified whether with hypoxia or hypercapnia Luis Mcclain, D.O. 02/23/2021 Z86.69 Personal history of other diseases of the nervous system and sense organs Luis Mcclain, D.O. 02/22/2021 J96.00 Acute respiratory fa ilure, unspecified whether with hypoxia or hypercapnia Luis Sears, D.O. 02/22/2021 I51.7 Cardiomegaly Luis Merrittrs, D.O. 02/22/2021 D72.829 Elevated white blood cell count, unspecified Luis Sears, D.O. 02/22/2021 Z86.69 Personal history of other diseases of the nervous system and sense organs Luis Merrittrs, D.O. Plan of Treatment No Information Available Functional Status Description No Information Available Mental Status Description No Information Available Referrals Description No Information Available
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
--- OUTSIDE RECORDS SUMMARY | 2021-10-04 04:48 | CCD ---
Author Author [facility] Organization [facility] Address Unknown Phone Unavailable Care Team Providers Care Nurse Transition Name Role Phone Kris Barrientos Unavailable PROBLEMS Type Condition ICD9-CM Code [id number] Code Onset Dates Condition S tatus W/U Status Risk SNOMED Code Notes Problem Neoplasm of uncertain behavior of skin D48.5 A ctive confirmed 32000211 Problem Lumbosacral spondylosis without myelopathy M47.817 Active confirmed 44031587 Problem Migraine, unspecified, not intractable, without status migrainosus G43.909 Active confirmed 33843557 Problem Chronic migraine without aur a, not intractable, without status migrainosus G43.709 Active confirmed 231885816521550 Problem Other chronic pain G89.29 Active confirmed 8 1593804 Problem Chronic migraine G43.709 Active confirmed 42 0759356 ALLERGIES Allergen (clinical drug ingredient) Drug/Non Drug Allergy do cumented on EMR Reaction Allergy Type Onset Date Status Kiwi Anaphylaxis Non Drug Allergy Active tramadol Tramadol Unknown Drug Allergy Active enoxaparin Lovenox(NDC Code:[address]-56) Unknown Drug Allergy Active famotidine Pepcid(NDC Code:[address]-65) Nausea/Vomiting Drug Allerg y Active promethazine Phenergan(NDC Code:[address]-43) Nausea/Vomiting Drug A llergy Active Avocados Anaphylaxis Non Drug Allergy Active poractant carrol Pork-derived Products Unknown Drug Allergy Active Latex Exam Gloves Hives Drug Allergy Activ e Bananas Anaphylaxis Non Drug Allergy Active hydroxychloroquine Plaquenil(NDC Code:[address]-92) Anaphylaxis Drug Allergy Active ENCOUNTERS from 1989 to 2021-07-23 Encounter Location Date Provider Diagnosis [facility] [address] [facility] 3[address] Floor [phone] [place] [address] Jul, Kris Barrientos Other chronic pain G 89.29 IMMUNIZATIONS No Information SOCIAL HISTORY Tobacco Use: Social History Observation Description Date Details (start date - stop date) Former Smoker Sex Assigned At : Social History Observation Description Sex Assigned At Unknown Education: Question Answer Notes Level of Education: College Language: Question Answer Notes Languages spoken: Ecuadorean Zoroastrianism: Question Answer Notes Zoroastrianism No moravian beliefs that would impact health care. Alcohol [...] Botox 07/05/21 10:40 16 Jun, 2021 Active lamoTRIgine 150 MG 1 tablet Orally Once a day in am Active Cetirizine HCl 10 MG 1 tablet Orally Once a day for 30 day(s) Active EpiPen PRN Active KlonoPIN 1 MG 1 tablet Orally 3 times a day 07/04/212199 Active HYDROcodone-Acetaminophen 5-325 MG 1 tablet as needed Orally twice daily as needed for 30 days PRN 07/04/212199Jul, Active PROCEDURES No Information RESULTS No Results REASON FOR VISIT HYDRO/ACET 5/325mg REFILL MEDICAL (GENERAL) HISTORY Type Description Date Medical [...] Treatment Notes Treatm ent Clinical Notes Jul, Other chronic pain (ICD-10 - G89.29) PLAN OF TREATMENT Medication Medication Name Sig Start Date Stop Date Fioricet 50-325-40 MG 1 tablet as needed Orally ev darlene 4 hrs PRN headache MDD6 for 7 days HYDROcodone-Acetaminophen 5-325 MG 1 tablet as needed Orally twice daily as needed for 30 days Jul, Next Appt Details Provider Name:Kris Barrientos, 2021-08-05 01:30:00 PM, [address] [place] [address], , [place], [address], Insurance Providers Payer Name Payer Address Payer Phone Insured Name Patient Relati onship to Insured Coverage Start Date Coverage End Date [facility] CLAIMS DEPT [address] [facility] [phone] WINSOME RODRIGUEZ self
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
--- OUTSIDE RECORDS SUMMARY | 2021-10-04 04:48 | CCD | Summary of Care ---
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 documented in this encounter Administered Medications Action Date Dose Rate Site Medication Order MAR Action emtricitabine-tenofovir (TRUVADA) 200-300 MG per tablet 1 tablet 1 tablet, Oral, Daily Standard, First dose on 07/16/21 at 0545, For 6 doses , Give the remainder of 7 day supply for the regimen of raltegravir AND emtricitabine-tenofovir (Truvada) to the patient prior to discharge. If the patient is admitted, continue administering medication as instructed. raltegravir (ISENTRESS) tablet 400 mg 400 mg, Oral, Every 12 hours, First dose on Sun07/15/21 at 1745, For 13 doses, Give the remainder of 7 day supply for the regimen of raltegravir AND emtricitabine-tenofovir (Truvada) to the patient prior to discharge. If the patient is admitted, continue administering medication as instructed. , Avoid polyvalent cations. Action Date Dose Rate Site Medication Order MAR Action 07/15/2021 5:42 AM EDT 650 mg acetaminophen (TYLENOL) tablet 650 mg Given 650 mg, Oral, Once, On Sun07/15/21 at 0400, For 1 dose, Maximum daily dose of acetaminophen is 3,000 mg from all sources in 24 hours. 07/15/2021 7:17 AM EDT 1,000 mg azithromycin (ZITHROMAX) tablet 1,000 mg Given 1,000 mg, Oral, Once, On Sun07/15/21 at 0615, For 1 dose 07/15/2021 7:28 AM EDT 500 mg Right De ltoid cefTRIAXone (ROCEPHIN) injection 500 mg Given 500 mg, Intramuscular, Once, On Sun07/15/21 at 0615, For 1 dose, cefTRIAXone 250 mg vial reconstitution instructions with lidocaine 1 % OR sterile water: Reconstitute with 0.9 mL (to final concentration of 250 mg/mL) cefTRIAXon e 500 mg vial reconstitution instructions with lidocaine 1 % OR sterile water: Reconstitute with 1.8 mL (to final concentration of 250 mg/mL) Reconstitut e with 1.0 mL (to final concentration of 350 mg/mL) cefTRIAXone 1 gm vial reconstitution instructions with lidocaine 1 % OR sterile water: Reconstitute with 3.6 mL (to final concentration of 250 mg/mL) Reconstitut e with 2.1 mL (to final concentration of 350 mg/mL), Discouraged Uses: Empiric treatment of post-surgical meningitis (ceftazidime preferred) 07/15/2021 8:02 AM EDT 1 tablet emtricitabine-tenofovir (TRUVADA) Given 200-300 MG per tablet 1 tablet 1 tablet, Oral, Once, On Sun07/15/21 at 0615, For 1 dose, Administer in the ED. Give the remainder of 7 day supply for the regimen of raltegravir AND emtricitabine-tenofovir (Truvada) to th e patient prior to discharge. If the patient is admitted, continue administering medication as instructed. 07/15/2021 6:05 AM EDT 50 mcg fentaNYL (SUBLIMAZE) (PF) injection 50 Given by IV mcg push 50 mcg, Intravenous, Once, On Sun 1 at 0400, For 1 dose 07/15/2021 7:59 AM EDT 1 tablet HYDROcodone-acetaminophen (LORTAB) 5-325 Given MG per tablet 1 tablet 1 tablet, Oral, Once, On Sun07/15/21 at 0730, For 1 dose, Maximum daily dose of acetaminophen is 3,000 mg from all sources in 24 hours. 07/15/2021 7:24 AM EDT 1.5 mg Levonorgestrel (Plan B OneStep) tablet Given 1.5 mg 1.5 mg, Oral, Once RT, On Sun07/15/21 at 0615, For 1 dose 07/15/2021 7:28 AM EDT 1 mL lidocaine (XYLOCAINE) 1 % injection Given 0.9-3.6 mL 0.9-3.6 mL, Other, Once, On Sun07/15/21 at 0615, For 1 dose, cefTRIAXone 250 mg vial reconstitution instructions with lidocaine 1 % OR sterile water: Reconstitute with 0.9 mL (to final concentration of 250 mg/mL) cefTRIAXon e 500 mg vial reconstitution instructions with lidocaine 1 % OR sterile water: Reconstitute with 1.8 mL (to final concentration of 250 mg/mL) Reconstitut e with 1.0 mL (to final concentration of 350 mg/mL) cefTRIAXone 1 gm vial reconstitution instructions with lidocaine 1 % OR sterile water: Reconstitute with 3.6 mL (to final concentration of 250 mg/mL) Reconstitut e with 2.1 mL (to final concentration of 350 mg/mL) 07/15/2021 7:20 AM EDT 2,000 mg metroNIDAZOLE (FLAGYL) tablet 2,000 mg Given 2,000 mg, Oral, Once, On Sun07/15/21 at 0615, For 1 dose, Avoid alcohol product s 07/15/2021 7:22 AM EDT 4 mg ondansetron (ZOFRAN-ODT) disintegrating Given tablet 4 mg 4 mg, Oral, Once, On Sun07/15/21 at 0615 , For 1 dose, Dissolve on tongue. 07/15/2021 8:03 AM EDT 400 mg raltegravir (ISENTRESS) tablet 400 mg Given 400 mg, Oral, Once, On Sun07/15/21 at 0615, For 1 dose, Administer in the ED. Give the remainder of 7 day supply for the regimen of raltegravir AND emtricitabine-tenofovir (Truvada) to the patient prior to discharge. If the patient is admitted, continue administering medication as instructed. , Avoid polyvalent cations. Action Date Dose Rate Site Medication Order MAR Action 07/15/2021 07:56 EDT 7.2 mL Hep B Immune Globulin Given Intramuscular documented in this encounter Active and Recently Administered Medications Times are shown in EDT. 07/14/2021 07/15/2021 Medication Order 07/13/2021 0542 (Given - Provider: Tory Bales LPN) acetaminophen (TYLENOL) tablet 650 mg (COMPLETED) 650 mg, Oral, Once, On Sun07/15/21 at 0400, For 1 dose, Maximum daily dose of acetaminophen is 3,000 mg from all sources in 24 hours. 0717 (Given - Provider: Tory Bales LPN) azithromycin (ZITHROMAX) tablet 1,000 m g (COMPLETED) 1,000 mg, Oral, Once, On Sun07/15/21 at 0615, For 1 dose 0728 (Given - Provider: Tory Bales LPN) cefTRIAXone (ROCEPHIN) injection 500 mg (COMPLETED) 500 mg, Intramuscular, Once, On Sun07/15/21 at 0615, For 1 dose, cefTRIAXone 250 mg vial reconstitution instructions with lidocaine 1 % OR sterile water: Reconstitute with 0.9 mL (to final concentration of 250 mg/mL) cefTRIAXon e 500 mg vial reconstitution instructions with lidocaine 1 % OR sterile water: Reconstitute with 1.8 mL (to final concentration of 250 mg/mL) Reconstitut e with 1.0 mL (to final concentration of 350 mg/mL) cefTRIAXone 1 gm vial reconstitution instructions with lidocaine 1 % OR sterile water: Reconstitute with 3.6 mL (to final concentration of 250 mg/mL) Reconstitut e with 2.1 mL (to final concentration of 350 mg/mL), Discouraged Uses: Empiric treatment of post-surgical meningitis (ceftazidime preferred) 0802 (Given - Provider: Ester Robison RN) emtricitabine-tenofovir (TRUVADA) 200-300 MG per tablet 1 tablet (COMPLETED) 1 tablet, Oral, Once, On Sun07/15/21 at 0615, For 1 dose, Administer in the ED. Give the remainder of 7 day supply for the regimen of raltegravir AND emtricitabine-tenofovir (Truvada) to th e patient prior to discharge. If the patient is admitted, continue administering medication as instructed. emtricitabine-tenofovir (TRUVADA) 200-300 MG per tablet 1 tablet 1 tablet, Oral, Daily Standard, First dose on Sun07/16/21 at 0545, For 6 doses , Give the remainder of 7 day supply for the regimen of raltegravir AND emtricitabine-tenofovir (Truvada) to the patient prior to discharge. If the patient is admitted, continue administering medication as instructed. 0605 (Given by IV push - Provider: Jennifer Robison RN) fentaNYL (SUBLIMAZE) (PF) injection 50 mcg (COMPLETED) 50 mcg, Intravenous, Once, On Sun 1 at 0400, For 1 dose 0759 (Given - Provider: Ester Robison RN) HYDROcodone-acetaminophen (LORTAB) 5-32 5 MG per tablet 1 tablet (COMPLETED) 1 tablet, Oral, Once, On Sun07/15/21 at 0730, For 1 dose, Maximum daily dose of acetaminophen is 3,000 mg from all sources in 24 hours. 0724 (Given - Provider: Tory Bales LPN) Levonorgestrel (Plan B OneStep) tablet 1.5 mg (COMPLETED) 1.5 mg, Oral, Once RT, On Sun07/15/21 at 0615, For 1 dose 0728 (Given - Provider: Tory Bales LPN) lidocaine (XYLOCAINE) 1 % injection 0.9-3.6 mL (COMPLETED) 0.9-3.6 mL, Other, Once, On Sun07/15/21 at 0615, For 1 dose, cefTRIAXone 250 mg vial reconstitution instructions with lidocaine 1 % OR sterile water: Reconstitute with 0.9 mL (to final concentration of 250 mg/mL) cefTRIAXon e 500 mg vial reconstitution instructions with lidocaine 1 % OR sterile water: Reconstitute with 1.8 mL (to final concentration of 250 mg/mL) Reconstitut e with 1.0 mL (to final concentration of 350 mg/mL) cefTRIAXone 1 gm vial reconstitution instructions with lidocaine 1 % OR sterile water: Reconstitute with 3.6 mL (to final concentration of 250 mg/mL) Reconstitut e with 2.1 mL (to final concentration of 350 mg/mL) 0720 (Given - Provider: Tory Bales LPN) metroNIDAZOLE (FLAGYL) tablet 2,000 mg (COMPLETED) 2,000 mg, Oral, Once, On Sun07/15/21 at 0615, For 1 dose, Avoid alcohol product s 0722 (Given - Provider: Tory Bales LPN) ondansetron (ZOFRAN-ODT) disintegrating tablet 4 mg (COMPLETED) 4 mg, Oral, Once, On Sun07/15/21 at 0615 , For 1 dose, Dissolve on tongue. 0945 (Due) oxyCODONE (ROXICODONE) immediate releas e tablet 5 mg 5 mg, Oral, Once, On Sun07/15/21 at 0945 , For 1 dose, Oxycodone immediate release is limited to 10 mg per dose. Higher doses ( only) require Pain Service consultation and approval. 0803 (Given - Provider: Ester Robison , MARCOS) raltegravir (ISENTRESS) tablet 400 mg (COMPLETED) 400 mg, Oral, Once, On Sun07/15/21 at 0615, For 1 dose, Administer in the ED. Give the remainder of 7 day supply for the regimen of raltegravir AND emtricitabine-tenofovir (Truvada) to the patient prior to discharge. If the patient is admitted, continue administering medication as instructed. , Avoid polyvalent cations. 174 (Due) raltegravir (ISENTRESS) tablet 400 mg 400 mg, Oral, Every 12 hours, First dose on Sun07/15/21 at 1745, For 13 doses, Give the remainder of 7 day supply for the regimen of raltegravir AND emtricitabine-tenofovir (Truvada) to the patient prior to discharge. If the patient is admitted, continue administering medication as instructed. , Avoid polyvalent cations. documented in this encounter
--- OUTSIDE RECORDS SUMMARY | 2021-10-04 04:49 | CCD ---
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 55876915 Problem Lumbosacral spondylosis without myelopathy M47.817 Active confirmed 81505867 Problem Migraine, unspecified, not intractable, without status migrainosus G43.909 Active confirmed 27080504 Problem Chronic migraine without aur a, not intractable, without status migrainosus G43.709 Active confirmed 814565019498776 Problem Other chronic pain G89.29 Active confirmed 8 0298162 Problem Chronic migraine G43.709 Active confirmed 42 0905040 ALLERGIES Allergen (clinical drug ingredient) Drug/Non Drug Allergy do cumented on EMR Reaction Allergy Type Onset Date Status Kiwi Anaphylaxis Non Drug Allergy Active tramadol Tramadol Unknown Drug Allergy Active enoxaparin Lovenox(NDC Code:[address]-60) Unknown Drug Allergy Active famotidine Pepcid(NDC Code:[address]-70) Nausea/Vomiting Drug Allerg y Active promethazine Phenergan(NDC Code:[address]-42) Nausea/Vomiting Drug A llergy Active Avocados Anaphylaxis Non Drug Allergy Active poractant carrol Pork-derived Products Unknown Drug Allergy Active Latex Exam Gloves Hives Drug Allergy Activ e Bananas Anaphylaxis Non Drug Allergy Active hydroxychloroquine Plaquenil(NDC Code:[address]-60) Anaphylaxis Drug Allergy Active ENCOUNTERS from 1989 to 2021-07-13 Encounter Location Date Provider Diagnosis [facility] [address] [facility] 3[address] Floor [phone] [place] [address] Jun, Kris Barrientos Chronic migraine G43 .709 IMMUNIZATIONS No Information SOCIAL HISTORY Tobacco Use: Social History Observation Description Date Details (start date - stop date) Former Smoker Sex Assigned At : Social History Observation Description Sex Assigned At Unknown Education: Question Answer Notes Level of Education: College Language: Question Answer Notes Languages spoken: Vietnamese Islam: Question Answer Notes Islam No restoration beliefs that would impact health care. Alcohol Screening: Question Answer Notes Did you have a drink containing alcohol in the past year? No Points 0 Interpretation Negative Tobacco Use: Question Answer Notes Are you a: former smoker How long has it been since you last smoked? > 10 years REASON FOR REFERRAL No Information VITAL SIGNS Weight 268 lbs Jun, Weight-kg 121.56 kg Jun, Height 64 in Jun, BMI 46.00 kg/m2 Jun, Heart Rate 104 /min Jun, Respiratory Rate 18 /min Jun, Temperature 97.3 degrees Fahrenheit Jun, Oximetry 96% Jun, Blood pressure systolic 165 mm Hg Jun, Blood pressure diastolic 97 mm Hg Jun, MEDICATIONS Medication SIG (Take, Route, Frequency, Duration) [...] 3 times a day 07/04/212199 Active PROCEDURES from 1989 to 2021-07-13 Procedure Date Ordered Result Body Site Completion of procedural visit when meets criteria 2021-07-05 N/A Medication: Pain Valium Tab 10mg Orally (Diazepam) 2021-07-05 N/A Med: Pain Zofran ODT Tab 4mg dissolve on tongue Ondansetron 2020 N/A Medication: Pain Oxycodone HCL Tab 10mg Orally 2021-07-05 N /A Med: Pain Benadryl Tab 25mg Orally Diphenhydramine 2021-07-05 N/A RESULTS No Results REASON FOR VISIT Botox injections to head, neck and shoulder [...] Treatment Notes Treatm ent Clinical Notes Jun, Chronic migraine (ICD-10 - G43.709) Jun, Other PAT COMPLETED BY Davie GREENFIELD RN PLAN OF TREATMENT Medication Medication Name Sig Start Date Stop Date Fioricet 50-325-40 MG 1 tablet as needed Orally ev darlene 4 hrs PRN headache MDD6 for 7 days Next Appt Details Post procedure Reason:Post botox injecti ons of the head, neck and shoulder areas Provider Name:Kris Barrientos, 2021-08-05 01:30:00 PM, [address] [place] [address], , [place], [address], Follow Up:Post procedurePost botox injections of the head, neck and shoulder areas Insurance Providers Payer Name Payer Address Payer Phone Insured Name Patient Relati onship to Insured Coverage Start Date Coverage End Date [facility] DEPT [address] [facility] [phone] WINSOME RODRIGUEZ self
--- OUTSIDE RECORDS SUMMARY | 2021-10-04 04:49 | CCD | Summary of Care ---
Author Author [facility] Organization [facility] Address Unknown Phone Unavailable Care Team Providers Care Product Development Intern Name Role Phone Hugh Valente PCP Unavailable Reason for Visit * Auth/Cert Referred By Contact Referred To Contact Status Reason Specialty Diagnoses / Procedures Sunday, MD Lorraine [address] [place] [address] [place] [address] Diagnoses Shortness of breath asthma exacerbation Procedures N/A Encounter Details Care Team Description Date Type Department Jorge-Clarissa Warren MD [address] [place] [id number] [phone] Sunday, MD Lorraine [address] [place] [address] [phone] Miguel Berger MD [address] [place] [address] [phone] Shortness of breath (Primary Dx) 07/09/2021 Hospital [facility] - Encounter [address] [place] [address] 07/12/2021 [place] [address] Allergies Comments Active Allergy Reactions Severity Noted Date Avocado 07/10/2021 Banana 07/09/2021 Kiwi 07/09/2021 Latex Rash Low 07/09/2021 Enoxaparin 07/09/2021 Famotidine 07/09/2021 Promethazine 07/09/2021 Hydroxychloroquine 07/09/2021 Pork/Porcine Containing 07/09/2021 Products Ketorolac 07/09/2021 documented as of this encounter (statuses as of 07/12/2021) Medications End Date Status Medication Sig Dispensed Refills Start Date Active hydroCHLOROthiazide Take 12.5 mg 0 (MICROZIDE) 12.5 mg by mouth 1 capsuleIndications: (one) time hypertension each day in the morning. Active HYDROcodone-acetaminophen Take by mouth 0 (NORCO) 5-325 mg per every 6 (six) tablet hours if needed for moderate pain. 1 tablet in the morning and 1 at night Active NIFEdipine CC (ADALAT CC) Take 30 mg by 0 30 mg 24 hr tablet mouth 1 (one) time each day before breakfast. Do not crush, chew, or split. Active pregabalin (LYRICA) 75 mg Take 75 mg by 0 capsuleIndications: mouth 1 (one) fibromyalgia time each day. Takes in AM Active lamoTRIgine (LaMICtal) Take by 0 150 mg tablet mouth. Every morning Active lamoTRIgine (LaMICtal) Take by mouth 0 100 mg tablet 1 (one) time each day. At night time Active clonazePAM (KlonoPIN) 1 Take by mouth 0 mg tablet 3 (three) times a day. Active FLUoxetine (PROzac) 20 mg Take 20 mg by 0 tablet mouth 1 (one) time each day. Takes 80mg at home Active QUEtiapine (SEROquel) 300 Take 300 mg 0 mg tablet by mouth 1 (one) time each day at night. Active QUEtiapine (SEROquel) 50 Take 50 mg by 0 mg tablet mouth 2 (two) times a day. Morning and lunch time Active cetirizine (ZyrTEC) 10 mg Take 10 mg by 0 tablet mouth 1 (one) time each day. Active apixaban (ELIQUIS) 5 mg Take 5 mg by 0 tablet mouth 2 (two) times a day. Active belimumab (Benlysta) 200 Inject 200 mg 0 mg/mL auto-injector under the skin every 7 (seven) days. On Active zolpidem (Ambien) 10 mg Take 10 mg by 0 tablet mouth at night if needed for sleep. 07/15/2021 Active predniSONE (DELTASONE) 10 Take 4 8 tablet 0 mg tablet tablets (40 1 mg total) by mouth 1 (one) time each day for 2 days. 07/10/2021 Discontinued zolpidem (AMBIEN CR) 12.5 Take 10 mg by 0 mg CR tablet mouth at night if needed for sleep. Do not crush, chew, or split. documented as of this encounter (statuses as of 07/12/2021) Active Problems Problem Noted Date Shortness of breath 07/09/2021 Asthma 07/09/2021 Allergic reaction 07/09/2021 Bipolar 1 disorder 07/09/2021 Anxiety 07/09/2021 Chronic back pain 07/09/2021 DVT (deep vein thrombosis) in 07/09/2021 Lupus 07/09/2021 Fibromyalgia 07/09/2021 Pulmonary HTN 07/09/2021 documented as of this encounter (statuses as of 07/12/2021) Social History Date Tobacco Use Types Packs/Day Years Used Never Smoker Smokeless Tobacco: Never Used Comments Alcohol Use Standard Drinks/Week Never 0 (1 standard drink = 0.6 o z pure alcohol) Alcohol Habits Answer Date Recorded How often do you have a drink containing alcohol? Never 07/09/2021 How many drinks containing alcohol do you have on No t asked a typical day when you are drinking? How often do you have six or more drinks on one Not asked occasion? Sex Assigned at Date Recorded Not on file Travel End Travel History Travel Start 06/28/2021 [place] 06/08/2021 Date Recorded COVID-19 Exposure Response 07/09/2021 9:15 PM EDT In the last month, have you been in contact with No / Unsure someone who was confirmed or suspected to have Coronavirus / COVID-19? documented as of this encounter Last Filed Vital Signs Reading Time Taken Comments Vital Sign 137/82 07/12/2021 8:00 AM EDT Blood Pressure 86 07/12/2021 8:00 AM EDT Pulse 36.3 C (97.3 F) 07/12/2021 8:00 AM EDT Temperature 18 07/12/2021 8:00 AM EDT Respiratory Rate 93% 07/12/2021 8:00 AM EDT Oxygen Saturation - - Inhaled Oxygen Concentration - - Weight - - Height - - Body Mass Index documented in this encounter Discharge Instructions * Instructions* Gagandeep Gilbert, RN - 07/12/2021 Images from the original note were not included. Allergies, Adult An allergy is a condition in which the body's defense system (immune system) com es in contact with an allergen and reacts to it. An allergen is anything that ca uses an allergic reaction. Allergens cause the immune system to make proteins fo r fighting infections (antibodies). These antibodies cause cells to release chem icals called histamines that set off the symptoms of an allergic reaction. Allergies often affect the nasal passages (allergic rhinitis), eyes (allergic co njunctivitis), skin (atopic dermatitis), and stomach. Allergies can be mild, mod erate, or severe. They cannot spread from person to person. Allergies can develo p at any age and may be outgrown. What are the causes? This condition is caused by allergens. Common allergens include: Outdoor allergens, such as pollen, car fumes, and mold. Indoor allergens, such as dust, smoke, mold, and pet dander. Other allergens, such as foods, medicines, scents, insect bites or stings, and other skin irritants. What increases the risk? You are more likely to develop this condition if you have: Family members with allergies. Family members who have any condition that may be caused by allergens, such as asthma. This may make you more likely to have other allergies. What are the signs or symptoms? Symptoms of this condition depend on the severity of the allergy. Mild to moderate symptoms Runny nose, stuffy nose (nasal congestion), or sneezing. Itchy mouth, ears, or throat. A feeling of mucus dripping down the back of your throat (postnasal drip). Sore throat. Itchy, red, watery, or puffy eyes. Skin rash, or itchy, red, swollen areas of skin (hives). Stomach cramps or bloating. Severe symptoms Severe allergies to food, medicine, or insect bites may cause anaphylaxis, which can be life-threatening. Symptoms include: A red (flushed) face. Wheezing or coughing. Swollen lips, tongue, or mouth. Tight or swollen throat. Chest pain or tightness, or rapid heartbeat. Trouble breathing or shortness of breath. Pain in the abdomen, vomiting, or diarrhea. Dizziness or fainting. How is this diagnosed? This condition is diagnosed based on your symptoms, your family and medical hist ory, and a physical exam. You may also have tests, including: Skin tests to see how your skin reacts to allergens that may be causing you r symptoms. Tests include: ? Skin prick test. For this test, an allergen is introduced to your body through a small opening in the skin. ? Intradermal skin test. For this test, a small amount of allergen is injected u nder the first layer of your skin. ? Patch test. For this test, a small amount of allergen is placed on your skin. The area is covered and then checked after a few days. Blood tests. A challenge test. For this test, you will eat or breathe in a small amount of allergen to see if you have an allergic reaction. You may also be asked to: Keep a food diary. This is a record of all the foods, drinks, and symptoms you have in a day. Try an elimination diet. To do this: ? Remove certain foods from your diet. ? Add those foods back one by one to find out if any foods cause an allergic ren ction. How is this treated? Treatment for allergies depends on your symptoms. Treatment may include: Cold, wet cloths (cold compresses) to soothe itching and swelling. Eye drops or nasal sprays. Nasal irrigation to help clear your mucus or keep the nasal passages moist. A humidifier to add moisture to the air. Skin creams to treat rashes or itching. Oral antihistamines or other medicines to block the reaction or to treat in flammation. Diet changes to remove foods that cause allergies. Being exposed again and again to tiny amounts of allergens to help you buil d a defense against it (tolerance). This is called immunotherapy. Examples inclu de: ? Allergy shot. You receive an injection that contains an allergen. ? Sublingual immunotherapy. You take a small dose of allergen under your tongue. Emergency injection for anaphylaxis. You give yourself a shot using a syrin ge (auto-injector) that contains the amount of medicine you need. Your health ca re provider will teach you how to give yourself an injection. Follow these instructions at home: Medicines Take or apply vxbb-[id number] and prescription medicines only as told by y our health care provider. Always carry your auto-injector pen if you are at risk of anaphylaxis. Give yourself an injection as told by your health care provider. Eating and drinking Follow instructions from your health care provider about eating or drinking restrictions. Drink enough fluid to keep your urine pale yellow. General instructions Wear a medical alert bracelet or necklace to let others know that you have had anaphylaxis before. Avoid known allergens whenever possible. Keep all follow-up visits as told by your health care provider. This is imp ortant. Contact a health care provider if: Your symptoms do not get better with treatment. Get help right away if: You have symptoms of anaphylaxis. These include: ? Swollen mouth, tongue, or throat. ? Pain or tightness in your chest. ? Trouble breathing or shortness of breath. ? Dizziness or fainting. ? Severe abdominal pain, vomiting, or diarrhea. These symptoms may represent a serious problem that is an emergency. Do not wait to see if the symptoms will go away. Get medical help right away. Call your [facility] emergency services (911 in the [place] Do not drive yourself to the hospital. Summary Take or apply pfkn-jnn-ayuggse and prescription medicines only as told by y our health care provider. Avoid known allergens when possible. Always carry your auto-injector pen if you are at risk of anaphylaxis. Give yourself an injection as told by your health care provider. Wear a medical alert bracelet or necklace to let others know that you have had anaphylaxis before. Anaphylaxisis a life-threatening emergency. Get help right away. This information is not intended to replace advice given to you by your health c are provider. Make sure you discuss any questions you have with your health care provider. Document Revised: 09/08/2020 Document Reviewed: 09/08/2020 Elsevier Patient Education 2020 [employer] documented in this encounter Progress Notes * Fransisco Solo - 07/12/2021 2:51 PM EDT Discharge Planning Progress Note Patient Name: Ghada Akers Today's Date: 07/12/2021 Assessment: PT D/C PLAN IS FOR HOME WITH S/OLoy TREVIZO Discharge Planning: * Magdalena Mead - 07/12/2021 1:26 PM EDT Discharge Planning Progress Note Patient Name: Ghada Akers Today's Date: 07/12/2021 Assessment: [employer] was asked to set up a medicaid taxi to take patient to home a darcie, TAYLOR contacted, auth# [id number] obtained, vendor is [employer], , approx tow picker time is 1500 due to availability. Discharge Planning: * Fransisco Solo - 07/11/2021 2:29 PM EDT Discharge Planning Progress Note Patient Name: Ghada Akers Today's Date: 07/11/2021 Assessment: ACCOUNT RECEIVABLE CLERK MET WITH PT AT BEDSIDE. PT LIVES WITH S/O IN THEIR HOME AND H 3 STEPS TO ENTER. PT USES BEDSIDE [employer], WHEELCHAIR, AND WALKER/ROLLATOR FO R DME. PT PCP IS MONSERRAT VALENTE. PT USES [facility] IN [place] FOR RX. PT STATED T HAT SHE JUST COMPLETED HOME CARE SERVICES [facility]ROUGH [facility]. PT CAREGIVER COMPLETED AND CHARTED. PT GIVEN D/C PLANNING GUIDE. DEPT TO FOLLOW. NEHA Discharge Planning: * Miguel Berger MD - 07/11/2021 10:03 AM EDT Subjective Patient seen and examined at bedside. Patient overall doing well. Currently of f oxygen. Patient still continues of a little bit of shortness of breath. Tell s her she feels a little bit swelling in her oral region. Patient does complain of a headache today similar to her migraines and she takes Fioricet at home. Denies any active crushing chest pain, shortness of breath, dizziness, nausea, v omiting, diarrhea, fever, chills, night sweats, abdominal pain, blurry vision, d ysuria, throat closing or swelling, acute numbness or tingling. Objective Physical Exam Constitutional: Appearance: She is well-developed. HENT: Head: Normocephalic and atraumatic. Eyes: Pupils: Pupils are equal, round, and reactive to light. Cardiovascular: Rate and Rhythm: Normal rate and regular rhythm. Heart sounds: Normal heart sounds. No murmur heard. Pulmonary: Effort: Pulmonary effort is normal. No respiratory distress. Breath sounds: No wheezing or rales. Abdominal: General: Bowel sounds are normal. There is no distension. Palpations: Abdomen is soft. Tenderness: There is no guarding or rebound. Musculoskeletal: General: Normal range of motion. Cervical back: Normal range of motion and neck supple. Skin: General: Skin is warm and dry. Capillary Refill: Capillary refill takes less than 2 seconds. Neurological: Mental Status: She is alert and oriented to person, place, and time. Cranial Nerves: No cranial nerve deficit. Last Recorded Vitals Blood pressure 138/91, pulse 87, temperature (!) 36 C (96.8 F), temperat ure source Oral, resp. rate 18, SpO2 95 %. Relevant Results I have reviewed the available lab and diagnostic results as appropriate. Assessment/Plan Principal Problem: Shortness of breath Active Problems: Asthma Allergic reaction Bipolar 1 disorder ([facility]) Anxiety Chronic back pain DVT (deep vein thrombosis) in Lupus ([facility]) Fibromyalgia Pulmonary HTN ([facility]) 1. Allergic/ anaphylactic reaction with possible mild asthma exacerbation Continue Solu-Medrol Continue DuoNebs Continue Benadryl Oxygen has been weaned 2. Hx. Of DVT: Eliquis 3. Chronic back pain: continue opiates 4. Lupus: pt was made aware her q Sunday benlysta in non formulary 5. Pul htn: oxygen 6. Bipolar/anxiety: continue home meds 7. HTN: BB 8. Seizures: Lamotrigine 9. Migraine: Resume home Fioricet Disposition: Likely discharge in the next 24 hours Deep vein thrombosis prophylaxis PUD prophylaxis A.m. labs Case discussed with nursing staff. Please see orders * Miguel Berger MD - 07/10/2021 10:05 AM EDT Subjective Patient seen and examined at bedside. Patient overall doing well. Patient requ iring 2 L of oxygen at the current moment Denies any active crushing chest pain, shortness of breath, dizziness, nausea, v omiting, diarrhea, fever, chills, night sweats, abdominal pain, headaches, blurr y vision, dysuria, throat closing or swelling, acute numbness or tingling. Objective Physical Exam Constitutional: Appearance: She is well-developed. HENT: Head: Normocephalic and atraumatic. Eyes: Pupils: Pupils are equal, round, and reactive to light. Cardiovascular: Rate and Rhythm: Normal rate and regular rhythm. Heart sounds: Normal heart sounds. No murmur heard. Pulmonary: Effort: Pulmonary effort is normal. No respiratory distress. Breath sounds: No wheezing or rales. Abdominal: General: Bowel sounds are normal. There is no distension. Palpations: Abdomen is soft. Tenderness: There is no guarding or rebound. Musculoskeletal: General: Normal range of motion. Cervical back: Normal range of motion and neck supple. Skin: General: Skin is warm and dry. Capillary Refill: Capillary refill takes less than 2 seconds. Neurological: Mental Status: She is alert and oriented to person, place, and time. Cranial Nerves: No cranial nerve deficit. Last Recorded Vitals Blood pressure 121/76, pulse 84, temperature 36.3 C (97.4 F), temperatur e source Oral, resp. rate 18, SpO2 100 %. Relevant Results I have reviewed the available lab and diagnostic results as appropriate. Assessment/Plan Principal Problem: Shortness of breath Active Problems: Asthma Allergic reaction Bipolar 1 disorder ([facility]) Anxiety Chronic back pain DVT (deep vein thrombosis) in Lupus ([facility]) Fibromyalgia Pulmonary HTN ([facility]) 1. Allergic/ anaphylactic reaction with possible mild asthma exacerbation Continue Solu-Medrol Continue DuoNebs Continue Benadryl Patient currently with no wheezing and requiring 2 L of oxygen.. Wean as tolera jina 2. Hx. Of DVT: Eliquis 3. Chronic back pain: continue opiates 4. Lupus: pt was made aware her q Sunday benlysta in non formulary 5. Pul htn: oxygen 6. Bipolar/anxiety: continue home meds 7. HTN: BB 8. Seizures: Lamotrigine Deep vein thrombosis prophylaxis PUD prophylaxis A.m. labs Case discussed with nursing staff. Please see orders documented in this encounter H&P Notes * Sunday, MD Lorraine - 07/09/2021 11:18 PM EDT H & P PCP No primary care provider on file. CHIEF COMPLAINT No chief complaint on file. History Of Present Illness Patient is a 31 yr old female with hx of asthma as per pt ( mild intermittent ba sed on her description- she states she seldom uses her inhaler, she does states she has been intubated in past for asthma and anaphylactic reaction to bananas), Lupus, pul htn, hx of DVT on eliquis, Bipolar, anixety, chronic back pain who w as sent from [facility]. Patient states her symptoms started after she ca me back from [place] 06/30/21 for her family's birthday. She states she was wheezin g and coughing, she states the next day she mistakenly ate some banana bread and felt lethargic and even more wheezing and short of breath. She denies any hive or other cutaneous symptoms. She states she was hospitalized at hospital in [facility] for 2 days and d/c. She states today she again mistakenly ate some of bana na bread and was wheezing, felt as though her tongue was swelling and she could not breath. At [facility] her wbc was 12, Hb 9.8, lactic a 4.7, covid was neg. AB G 7.39/35/109 ( unclear of supplemental o2 at that time). Pt was given epi, solu medrol, duoneb, ceftriaxone and benadryl and transferred. Currently pt is no acu te distress, no wheezing, lungs clear, saturating at 98% RA, no edema of mucus m noted. No cutaneous lesions. She denies cough, chest pain, abd pain, constipati on, diarrhea or urinary sx . She states she feels tired and unwell. Past Medical History She has a past medical history of Anxiety, Asthma, Depression, systemic lupus er ythematosus (SLE) ([facility]), Hypertension, PTSD (post-traumatic stress disorder) , and Seizures (CMS/HCC). Surgical History She has a past surgical history that includes section, classic. Social History She reports that she has never smoked. She has never used smokeless tobacco. She reports that she does not drink alcohol and does not use drugs. Family History family history is not on file. Allergies Banana, Kiwi, Lovenox [enoxaparin], Pepcid [famotidine], Phenergan [promethazine ], Plaquenil [hydroxychloroquine], Pork/porcine containing products, Toradol [ke torolac], and Latex Medications I have reviewed and reconciled, where appropriate, the patient's current medicat ions. Prior to Admission medications Medication Sig Start Date End Date Taking? Authorizing Provider apixaban (ELIQUIS) 5 mg tablet Take 5 mg by mouth 2 (two) times a day. Yes His torical Provider, belimumab (Benlysta) 200 mg/mL auto-injector Inject 200 mg under the skin every 7 (seven) days. On Yes Historical Provider, cetirizine (ZyrTEC) 10 mg tablet Take 10 mg by mouth 1 (one) time each day. Pérez s Historical Provider, clonazePAM (KlonoPIN) 1 mg tablet Take by mouth 3 (three) times a day. Yes His torical Provider, FLUoxetine (PROzac) 20 mg tablet Take 20 mg by mouth 1 (one) time each day. Take s 80mg at home Yes Historical Provider, hydroCHLOROthiazide (MICROZIDE) 12.5 mg capsule Take 12.5 mg by mouth 1 (one) ti me each day in the morning. Yes Historical Provider, HYDROcodone-acetaminophen (NORCO) 5-325 mg per tablet Take by mouth every 6 (six ) hours if needed for moderate pain. 1 tablet in the morning and 1 at night Pérez s Historical Provider, lamoTRIgine (LaMICtal) 100 mg tablet Take by mouth 1 (one) time each day. At nig ht time Yes Historical Provider, lamoTRIgine (LaMICtal) 150 mg tablet Take by mouth. Every morning Yes Historic al Provider, NIFEdipine CC (ADALAT CC) 30 mg 24 hr tablet Take 30 mg by mouth 1 (one) time ea ch day before breakfast. Do not crush, chew, or split. Yes Historical Provider , pregabalin (LYRICA) 75 mg capsule Take 75 mg by mouth 1 (one) time each day. Elio es in AM Yes Historical Provider, QUEtiapine (SEROquel) 300 mg tablet Take 300 mg by mouth 1 (one) time each day a t night. Yes Historical Provider, QUEtiapine (SEROquel) 50 mg tablet Take 50 mg by mouth 2 (two) times a day. Morn ing and lunch time Yes Historical Provider, zolpidem (AMBIEN CR) 12.5 mg CR tablet Take 10 mg by mouth at night if needed fo r sleep. Do not crush, chew, or split. Yes Historical Provider, Review Of Systems A 12 pt review of systems was completed, all negative except those listed in HPI Last Recorded Vitals Temp: [37.1 C (98.7 F)] 37.1 C (98.7 F) Heart Rate: [71] 71 Resp: [18] 18 BP: (171)/(98) 171/98 Physical Exam General: well nourished, NAD Head: normocephalic, atraumatic Neck: supple, no JVP HEENT: EOMI, PEERL CVS: RRR. Normal s1 and s2,no MGR Lungs: CTA bl. No crackles or wheezing Abdomen: soft, non tender, non distended, + bs Ext: no edema, no calf tenderness Neuro: A&OX 3, no focal deficits LABS I have reviewed the available lab and diagnostics results as appropriate and not e the following relevant results No results found for this or any previous visit (from the past 24 hour(s)). Current Imaging No image results found. Problem List Principal Problem: Shortness of breath Active Problems: Asthma Allergic reaction Bipolar 1 disorder ([facility]) Anxiety Chronic back pain DVT (deep vein thrombosis) in Lupus ([facility]) Fibromyalgia Pulmonary HTN ([facility]) Assessment and Plan 1. Allergic/ anaphylactic reaction with possible mild asthma ex: much improved, for now benadryl and solumedrol, duonebs, oxygen prn, daily peak flow, XR chest and basic labs. No wheezing on exam, saturating 98% on RA 2. Hx. Of DVT: Eliquis 3. Chronic back pain: continue opiates 4. Lupus: pt was made aware her q Sunday benlysta in non formulary 5. Pul htn: oxygen 6. Bipolar/anxiety: continue home meds 7. HTN: BB 8. Seizures: Lamotrigine Maria De Jesus Rojasday 07/09/21 documented in this encounter Plan of Treatment Date/Time Name Type Priority Associated Diag noses 07/09/2021 10:55 PM EDT ECG 12 lead ECG STAT Shortness of br eath Order Schedule Name Type Priority Associated Diag noses For RT frequency use only for continuous procedures with task-based reminders at 8a and 8p until discontinued starting 07/09/2021, 6 completed Oxygen Therapy - Device: Respiratory Routine Nasal Cannula Care Health Maintenance Due Date Last Done Comments Cervical Cancer Screening 1989 MMR Vaccines (1 of - 1990 Standard series) Varicella Vaccines (1 of 1990 2 - 2-dose childhood series) DTaP,Tdap,and Td Vaccines 1996 (1 - Tdap) COVID-19 Vaccine (1) 2005 Influenza Vaccine (#1) 2021 Pneumococcal Vaccine: 65+ 2054 Years (1 of 1 - PPSV23) HIB Vaccines Aged Out No longer eligible [...] this topic documented as of this encounter Procedures Comments Procedure Name Priority Date/Time Associated Diag nosis CBC AND DIFFERENTIAL Routine 07/12/2021 Shortness of breath 6:19 AM EDT OXYGEN THERAPY Routine 07/11/2021 8:00 AM EDT HC CBC W/ DIFFERENTIAL Routine 07/11/2021 Shortne ss of breath 6:47 AM EDT BASIC METABOLIC PANEL Routine 07/11/2021 Shortnes s of breath 6:47 AM EDT OXYGEN THERAPY Routine 07/10/2021 8:00 PM EDT , URINE Routine 07/10/2021 Shortness of breath 11:50 AM EDT XR CHEST 1 VIEW Routine 07/10/2021 8:51 AM EDT OXYGEN THERAPY Routine 07/10/2021 8:00 AM EDT PEAK FLOW Routine 07/09/2021 11:27 PM EDT PT ON THERAPY STAT 07/09/2021 Shortness of br eath 11:07 PM EDT PTT ON THERAPY STAT 07/09/2021 Shortness of br eath 11:07 PM EDT TROPONIN I STAT 07/09/2021 Shortness of br eath 11:07 PM EDT CBC STAT 07/09/2021 Shortness of br eath 11:07 PM EDT MAGNESIUM STAT 07/09/2021 Shortness of br eath 11:07 PM EDT LACTIC ACID STAT 07/09/2021 Shortness of br eath 11:07 PM EDT COMPREHENSIVE METABOLIC STAT 07/09/2021 Shortn ess of breath PANEL 11:07 PM EDT OXYGEN THERAPY Routine 07/09/2021 11:06 PM EDT OXYGEN THERAPY Routine 07/09/2021 11:06 PM EDT OXYGEN THERAPY Routine 07/09/2021 11:06 PM EDT ECG 12-LEAD STAT 07/09/2021 Shortness of br eath 10:55 PM EDT documented in this encounter Results * CBC and differential (07/12/2021 6:19 AM EDT) WBC 18.88 (H) 4.80 - 10.00 [facility] x1000/ul LABORATORIES RBC 4.38 4.20 - 5.40 x1Mil/ul [facility] Hemoglobin 10.6 (L) 12.0 - 16.0 g/dl [facility] Hematocrit 34.6 (L) 37.0 - 47.0 % [facility] MCV 79.0 (L) 81.0 - 99.0 fL [facility] MCH 24.2 (L) 27.0 - 31.0 pg [facility] MCHC 30.6 (L) 32.2 - 37.0 g/dl [facility] RDW 16.1 (H) 11.5 - 14.5 % [facility] Platelet Count 453 (H) 130 - 400 x1000/ul [facility] MPV 10.5 9.4 - 12.4 fL [facility] Neutrophils 77.2 (H) 40.0 - 74.0 % [facility] Lymphocytes 14.0 (L) 19.0 - 48.0 % [facility] Monocytes 5.6 3.4 - 9.0 % [facility] Eosinophils 1.0 0.0 - 7.0 % [facility] Basophils 0.4 0.0 - 2.0 % [facility] Immature 1.8 (H) 0.0 - 0.5 % [facility] Granulocytes LAB[facility]IES Nucleated RBCs 0.00 0.00 - 0.20 % [facility] Abs. 14.57 (H) 1.92 - 8.31 x1000/ul [facility] Neutrophils LAB[facility]IES Abs. Lymphocyte 2.64 1.20 - 3.70 x1000/ul [facility] Abs. Monocytes 1.06 (H) 0.14 - 0.97 x1000/ul [facility] Abs. 0.19 0.00 - 0.76 x1000/ul [facility] Eosinophils LAB[facility]IES Abs. 0.08 0.00 - 0.22 x1000/ul [facility] Basophils [facility] Abs. Immature 0.34 (H) 0.00 - 0.02 x1000/ul [facility] Gran. LABORATORIES Abs. Nucleated 0.00 0.00 - 0.02 x1000/ul [facility] RBCs Comment: LABORATORIES The above 24 analytes were performed by [facility] [address] [place] [address],[facility]#: [id number],[place] [address] Specimen Whole Blood Performing Organization Address City/State/ZIP Code P krish Number [facility] [address] [place] [address] ERNST AN MD * Basic metabolic panel (07/11/2021 6:47 AM EDT) Blood Urea 16 7 - 18 mg/dl [facility] Nitrogen LAB[facility]IES Creatinine 0.76 0.51 - 0.95 mg/dl [facility] Comment: LABORATORIES N-Acetylcysteine (NAC) and Metamizole have the potential to falsely depress Creatinine results. Baseline values before medication adminstration are recommended. Patients undergoing treatment with phenindione will have falsely depressed results. Patients on phenindione therapy should be tested with an alternative CREA method. Toxic levels of acetaminophen may lead to falsely depressed results for patient samples. Glomerular 88.00 mL/min/1.73m2 [facility] Filtration Rate Comment: LABORATORIES GFR Reference Ranges: Normal Function or Mild Renal Disease,if clinically at risk: >or= 60 Moderately decreased: 30 - 59 Severely decreased: 15 - 29 Renal Failure: <15 Please note that the MDRD equation requires an additional adjustment for -Americans (multiply the GFR result by 1.210). Glomarular Filtration Rate (GFR) is estimated based on the MDRD equation, which assumes a steady state for creatinine (Patricia Int Med 139/2 137-149, 2003), as recommended by the National Kidney Disease Education Program in conjunction with the National Institutes of Health and the National Kidney Foundation. The [place] method used in calculating this result is traceable to IDMS standards. Glucose 113 (H) 70 - 110 mg/dl [facility] Comment: LABORATORIES Sulfasalazine has the potential to falsely depress Glucose results. Sulfapyridine has the potential to falsely elevate Glucose results. Baseline values before medication administration are recommended. Calcium 8.8 8.5 - 10.1 mg/dl [facility] Sodium 137 136 - 145 mEq/L [facility] Potassium 4.1 3.5 - 5.1 mEq/L [facility] Chloride 108.0 (H) 98.0 - 107.0 mEq/L [facility] Carbon Dioxide 21.9 21.0 - 32.0 mMol/L [facility] Anion Gap 11.2 7.0 - 15.0 [facility] Comment: LABORATORIES The above 10 analytes were performed by [facility] [address] [facility] [id number][facility] [address] Specimen Serum or Plasma Performing Organization Address City/State/ZIP Code P krish Number [facility] [address] [place] [address] ERNST AN MD * CBC and differential (07/11/2021 6:47 AM EDT) WBC 13.51 (H) 4.80 - 10.00 [facility] x1000/ul [facility] RBC 4.21 4.20 - 5.40 x1Mil/ul [facility] Hemoglobin 10.1 (L) 12.0 - 16.0 g/dl [facility] Hematocrit 33.4 (L) 37.0 - 47.0 % [facility] MCV 79.3 (L) 81.0 - 99.0 fL [facility] MCH 24.0 (L) 27.0 - 31.0 pg [facility] MCHC 30.2 (L) 32.2 - 37.0 g/dl [facility] RDW 16.1 (H) 11.5 - 14.5 % [facility] Platelet Count 408 (H) 130 - 400 x1000/ul [facility] MPV 10.7 9.4 - 12.4 fL [facility] Neutrophils 76.9 (H) 40.0 - 74.0 % [facility] Lymphocytes 16.1 (L) 19.0 - 48.0 % [facility] Monocytes 3.8 3.4 - 9.0 % [facility] Eosinophils 1.1 0.0 - 7.0 % [facility] Basophils 0.3 0.0 - 2.0 % [facility] Immature 1.8 (H) 0.0 - 0.5 % [facility] Granulocytes LAB[facility]IES Nucleated RBCs 0.00 0.00 - 0.20 % [facility] Abs. 10.38 (H) 1.92 - 8.31 x1000/ul [facility] Neutrophils LABORATORIES Abs. Lymphocyte 2.18 1.20 - 3.70 x1000/ul [facility] Abs. Monocytes 0.52 0.14 - 0.97 x1000/ul [facility] Abs. 0.15 0.00 - 0.76 x1000/ul [facility] Eosinophils LAB[facility] Abs. 0.04 0.00 - 0.22 x1000/ul [facility] Basophils LAB[facility]IES Abs. Immature 0.24 (H) 0.00 - 0.02 x1000/ul [facility] Gran. LABORATORIES Abs. Nucleated 0.00 0.00 - 0.02 x1000/ul [facility] RBCs Comment: LABORATORIES The above 24 analytes were performed by [facility] [address] [place] [address], ,[place] [id number] Specimen Whole Blood Performing Organization Address [facility] P krish Number [facility] [address] [place] [address] ERNST AN MD * , urine (07/10/2021 11:50 AM EDT) Urine Negative Negative [facility] Comment: LABORATORIES The above 1 analytes were performed by [facility] [address] [place] [address], ,[place] [address] Specimen Urine Performing Organization Address [facility] P krish Number [facility] [address] [place] [address] ERNST AN MD * X-ray chest 1 view (07/10/2021 8:51 AM EDT) Specimen Impressions Performed At Moderately enlarged cardiac silhouette. [facility] OMING PS360 Low lung volumes. RESULTING AGENCY The lungs are clear. Electronically Signed by Luis delgado MD 07/10/2021 9:05 AM Narrative Performed At Patient: GHADA AKERS [facility] INCOMING PS360 RESULTING AGENCY : 1990 PACS System: [facility] Procedure: XR CHEST 1 VIEW Provider: [facility] SUNDAY CLINICAL HISTORY: Shortness of breath. TECHNIQUE: An AP portable view of the c hest was obtained. COMPARISON: No relevant prior studies are availabl e for comparison. FINDINGS: Lines/tubes: None. Lungs: The lungs are clear. Low lung volumes. Heart and mediastinum: Moderately enlar ged cardiac silhouette. Pleura: No pleural effusion or pneumoth orax seen. Bones: The visualized bones are unremar kable. Abdomen: Visualized portions of the upp er abdomen are unremarkable. Procedure Note Interface, Radiology Results In - 07/10/2021 9:06 AM EDT Patient: GHADA AKERS : 1990 PACS System: [facility] Procedure: XR CHEST 1 VIEW Provider: [facility] SUNDAY CLINICAL HISTORY: Shortness of breath. TECHNIQUE: An AP portable view of the chest was obtained. COMPARISON: No relevant prior studies are available for comparison. FINDINGS: Lines/tubes: None. Lungs: The lungs are clear. Low lung volumes. Heart and mediastinum: Moderately enlarged cardiac silhouette. Pleura: No pleural effusion or pneumothorax seen. Bones: The visualized bones are unremarkable. Abdomen: Visualized portions of the upper abdomen are unremarkable. IMPRESSION: Moderately enlarged cardiac silhouette. Low lung volumes. The lungs are clear. Electronically Signed by Luis Frias MD 07/10/2021 9:05 AM Performing Organization Address City/State/ZIP Code P krish Number [facility] INCOMING PS360 RESULTING AGENCY * Prothrombin time INR on therapy (07/09/2021 11:07 PM EDT) PT,Patient (on 13.7 Seconds [facility] Anticoag. Comment: LABORATORIES Therapy) Discrepant results may occu r due to anticoagulant effects such as coumadin, direct thrombin inhibitors; argatroban (Acova), bivalirudin (Angiomax) or dabigatran (Pradaxa) or direct factor Xa inhibitors; rivaroxaban (Xarelto), apixaban (Eliquis) and edoxaban (Savaysa). INR (on 1.2 (L) 2.0 - 3.5 [facility] Anticoagulant Comment: LABORATORIES Therapy) Suggested therapeutic INR ranges for oral anticoagulant therapy: Indication: INR Prevention and treatment of DVT and PE 2.0 - 3.0 Prevention of systemic embolism with atrial fib., acute MS and 2.0 - 3.0 tissue prosthetic heart valves. Prevention of systemic embolism in patients with mechanical heart 2.5 - 3.5 valves. NOTE: The INR is only valid for patients on stable oral anticoagulant therapy. __ The above 2 analytes were performed by [facility] [facility], ,[place] [address] Specimen Plasma Performing Organization Address [facility] P krish Number [facility] [address] [place] [address] ERNST AN MD * PTT On Therapy (07/09/2021 11:07 PM EDT) Pathologist [facility] PTT, 33.2 25.1 - 36.5 Seconds [facility] Patient (on Comment: LABORATORIES Anticoag. Discrepant results may occu r Therapy due to anticoagulant effect s such as heparin, direct thrombin inhibitors; argatroban (Acova), bivalirudin (Angiomax) or dabigatran (Pradaxa) or direct factor Xa inhibitors; rivaroxaban (Xarelto), apixaban (Eliquis) and edoxaban (Savaysa). The above 1 analytes were performed by [facility] [address] [place] [address],[facility] [id number],[place] [address] Specimen Plasma Performing Organization Address [facility] P krish Number [facility] [address] [place] [address] ERNST AN MD * Lactic acid (07/09/2021 11:07 PM EDT) [facility] Lactic Acid 1.8 0.4 - 2.0 mMol/L [facility] Comment: LABORATORIES The above 1 analytes were performed by [facility] [address] [place] [address],[facility] [id number],[place] [address] Specimen Plasma Performing Organization Address [facility] P krish Number [facility] [address] [place] [address] ERNST AN MD * Troponin I (07/09/2021 11:07 PM EDT) Pathologist [facility] Troponin I <0.015 0.000 - 0.100 ng/ml [facility] Comment: LABORATORIES Reference Values: Negative: <0.07 ng/mL Increasing Risk of ACS: 0.08-0.10 ng/mL Positive: >0.10 ng/mL Conditions other than MS that cause increased troponin I values include but are not limited to chest trauma, cardiac and non-cardiac surgery, congestive heart failure, drug cardio-toxicity, inflammatory diseases such as myocarditis, pulmonary embolism, inflitrative diseases, and acute neurological disease. An AMI diagnositc cutoff within a range of 0.6-1.5 ng/mL is consistent with the WHO criteria for AMI. Concentrations of Biotin above 100 ng/mL can potentially result in interference. Results obtained using [employer]. The above 1 analytes were performed by [facility] [address] [place] [address],[facility] [id number],[place] [address] Specimen Serum or Plasma Performing Organization Address [facility] P krish Number [facility] [address] [place] [address] ERNST AN MD * Magnesium (07/09/2021 11:07 PM EDT) Magnesium 2.2 1.6 - 2.6 mg/dl [facility] Comment: LABORATORIES The above 1 analytes were performed by [facility] [address] [place] [address],[facility] [id number],[place] [address] Specimen Serum or Plasma Performing Organization Address [facility] P krish Number [facility] [address] [place] [address] ERNST AN MD * Comprehensive metabolic panel (07/09/2021 11:07 PM EDT) AST 11 (L) 15 - 37 IU/L [facility] Comment: LABORATORIES Sulfasalazine and sulfapyridine have the potential to falsely depress Aspartate Aminotransferase results. Baseline values before medication administration are recommended. ALT 30 13 - 56 IU/L [facility] Comment: LABORATORIES Sulfasalazine and sulfapyridine have the potential to falsely depress Alanine Aminotransferase results. Baseline values before medication administration are recommended. Alkaline 110 50 - 136 mIU/ml [facility] Phosphatase LABORATORIES Total Bilirubin 0.20 0.20 - 1.00 mg/dl [facility] Blood Urea 8 7 - 18 mg/dl [facility] Nitrogen LABORATORIES Creatinine 0.71 0.51 - 0.95 mg/dl [facility] Comment: LABORATORIES N-Acetylcysteine (NAC) and Metamizole have the potential to falsely depress Creatinine results. Baseline values before medication adminstration are recommended. Patients undergoing treatment with phenindione will have falsely depressed results. Patients on phenindione therapy should be tested with an alternative CREA method. Toxic levels of acetaminophen may lead to falsely depressed results for patient samples. Glomerular >90.00 mL/min/1.73m2 [facility] Filtration Rate Comment: LABORATORIES GFR Reference Ranges: Normal Function or Mild Renal Disease,if clinically at risk: >or= 60 Moderately decreased: 30 - 59 Severely decreased: 15 - 29 Renal Failure: <15 Please note that the MDRD equation requires an additional adjustment for -Americans (multiply the GFR result by 1.210). Glomarular Filtration Rate (GFR) is estimated based on the MDRD equation, which assumes a steady state for creatinine (Patricia Int Med 139/2 137-149, 2003), as recommended by the National Kidney Disease Education Program in conjunction with the National Institutes of Health and the National Kidney Foundation. The [place] method used in calculating this result is traceable to IDMS standards. Glucose 107 70 - 110 mg/dl [facility] Comment: LABORATORIES Sulfasalazine has the potential to falsely depress Glucose results. Sulfapyridine has the potential to falsely elevate Glucose results. Baseline values before medication administration are recommended. Calcium 9.0 8.5 - 10.1 mg/dl [facility] Total Protein 7.5 6.4 - 8.2 g/dl [facility] Albumin 3.6 3.4 - 5.0 g/dl [facility] Sodium 141 136 - 145 mEq/L [facility] Potassium 4.2 3.5 - 5.1 mEq/L [facility] Chloride 111.0 (H) 98.0 - 107.0 mEq/L [facility] Carbon Dioxide 21.3 21.0 - 32.0 mMol/L [facility] Anion Gap 12.9 7.0 - 15.0 [facility] Comment: LABORATORIES The above 16 analytes were performed by [facility] [address] [place] [address],[facility] [id number],[place] [address] Specimen Serum or Plasma Performing Organization Address City/State/ZIP Code P krish Number [facility] [address] [place] [address] ERNST AN MD * CBC (Hemogram) (07/09/2021 11:07 PM EDT) WBC 24.92 (H) 4.80 - 10.00 MV x1000/ul LABORATORIES RBC 4.05 (L) 4.20 - 5.40 x1Mil/ul [facility] Hemoglobin 9.8 (L) 12.0 - 16.0 g/dl [facility] Hematocrit 32.4 (L) 37.0 - 47.0 % [facility] MCV 80.0 (L) 81.0 - 99.0 fL [facility] MCH 24.2 (L) 27.0 - 31.0 pg [facility] MCHC 30.2 (L) 32.2 - 37.0 g/dl [facility] RDW 16.0 (H) 11.5 - 14.5 % [facility] Platelet Count 411 (H) 130 - 400 x1000/ul [facility] MPV 10.6 9.4 - 12.4 fL [facility] Nucleated RBCs 0.00 0.00 - 0.20 % [facility] Abs. Nucleated 0.00 0.00 - 0.02 x1000/ul [facility] RBCs Comment: LABORATORIES The above 12 analytes were performed by [facility] [address] [place] [address],[facility]#: [id number],[place] [address] Specimen Whole Blood Performing Organization Address City/State/ZIP Code P krish Number [facility] [address] [place] [address] ERNST AN MD documented in this encounter Visit Diagnoses Diagnosis Shortness of breath - Primary Asthma Unspecified asthma Allergic reaction Allergy, unspecified not elsewhere clas sified Bipolar 1 disorder ([facility]) Anxiety Anxiety state, unspecified Chronic back pain Unspecified backache DVT (deep vein thrombosis) in Lupus ([facility]) Systemic lupus erythematosus Fibromyalgia Unspecified myalgia and myositis Pulmonary HTN ([facility]) documented in this encounter Administered Medications Action Date Dose Rate Site Medication Order MAR Action acetaminophen (TYLENOL) 160 mg/5 mL solution 640 mg 640 mg (rounded from 650 mg), oral, Every 4 hours PRN, mild pain, Starting on 07/09/21 at 2243, Give oral liqui d if patient prefers or per feeding tube if present. If inadequate response within 60 minutes, proceed to next-line agent for same PRN reason or contact provider if no further options ordered. acetaminophen (TYLENOL) suppository 650 mg 650 mg, rectal, Every 4 hours PRN, mild pain, Starting on 07/09/21 at 2243, Give GA if unable to administer by mout h or feeding tube. If inadequate response within 60 minutes, proceed to next-line agent for same PRN reason or contact provider if no further options ordered. acetaminophen (TYLENOL) tablet 650 mg 650 mg, oral, Every 4 hours PRN, mild pain, Starting on 07/09/21 at 2243, If inadequate response within 60 minutes, proceed to next-line agent for same PRN reason or contact provider if no further options ordered. albuterol 2.5 mg/3 mL (0.083%) nebulize r solution 2.5 mg 2.5 mg, nebulization, Every 2 hour PRN, wheezing, Starting on Sun07/12/21 at 1330 07/12/2021 8:54 AM EDT 5 mg apixaban (ELIQUIS) tablet 5 mg Given 5 mg, oral, 2 times daily, First dose o n 07/10/21 at 0045, Indications: deep venous thrombosis 5 mg Given 07/11/2021 9:20 PM EDT 5 mg Given 07/11/2021 9:34 AM EDT 07/12/2021 8:56 AM EDT 1 tablet qsdkdpxlvn-dqadnjgnqizjj-mltsxehm Given (FIORICET) 50-325-40 mg per tablet 1 tablet 1 tablet, oral, Every 8 hours PRN, headaches, migraine, Starting on 07/11/21 at 1004 1 tablet Given 07/11/2021 10:47 PM EDT 1 tablet Given 07/11/2021 11:15 AM EDT 07/12/2021 11:45 AM EDT 1 mg clonazePAM (KlonoPIN) dispersible tablet Given 1 mg 1 mg, oral, 3 times daily PRN, anxiety, seizures, Starting on 07/09/21 at 2312, [facility] Cat 3 - follow Safe Handlin g Precautions when administering ; Refer to Pharmacy Resources on hospital intranet page for additional info. 1 mg Given 07/10/2021 10:22 PM EDT 1 mg Given 07/10/2021 2:17 PM EDT 07/12/2021 8:55 AM EDT 25 mg diphenhydrAMINE (BENADRYL) injection 25 Given mg 25 mg, intravenous, 2 times daily, Firs t dose on 07/10/21 at 0015 25 mg Given 07/11/2021 9:21 PM EDT 25 mg Given 07/11/2021 9:35 AM EDT 07/12/2021 8:54 AM EDT 20 mg FLUoxetine (PROzac) tablet 20 mg Given 20 mg, oral, Daily, First dose on 07/10/21 at 0900 20 mg Given 07/11/2021 9:33 AM EDT 20 mg Given 07/10/2021 8:39 AM EDT 07/12/2021 8:54 AM EDT 12.5 mg hydroCHLOROthiazide (HYDRODIURIL) tablet Given 12.5 mg 12.5 mg, oral, Daily, First dose on 07/10/21 at 0900, Indications: hypertension 12.5 mg Given 07/11/2021 9:34 AM EDT 12.5 mg Given 07/10/2021 8:39 AM EDT 07/12/2021 11:17 AM EDT 1 tablet HYDROcodone-acetaminophen (NORCO) 5-325 Given mg per tablet 1 tablet 1 tablet, oral, Every 6 hours PRN, moderate pain, Starting on 07/09/21 at 2312 1 tablet Given 07/11/2021 4:16 PM EDT 1 tablet Given 07/11/2021 9:34 AM EDT 07/11/2021 9:28 PM EDT 100 mg lamoTRIgine (LaMICtal) tablet 100 mg Given 100 mg, oral, Nightly, First dose on Sosa n 07/10/21 at 0030 100 mg Given 07/10/2021 7:46 PM EDT 100 mg Given 07/10/2021 1:19 AM EDT 07/12/2021 8:53 AM EDT 150 mg lamoTRIgine (LaMICtal) tablet 150 mg Given 150 mg, oral, Daily, First dose on 07/10/21 at 0900 150 mg Given 07/11/2021 9:34 AM EDT 150 mg Given 07/10/2021 8:38 AM EDT 07/12/2021 8:54 AM EDT 30 mg NIFEdipine XL (PROCARDIA XL) 24 hr Given tablet 30 mg 30 mg, oral, Daily, First dose on 07/10/21 at 0900, Do not crush, chew, or split. 30 mg Given 07/11/2021 9:34 AM EDT 30 mg Given 07/10/2021 8:39 AM EDT ondansetron (ZOFRAN) injection 4 mg 4 mg, intravenous, Every 6 hours PRN, nausea, vomiting, Starting on 07/09/21 at 2243, 1st Line. Give IV if patient is unable to take orally. If inadequate response within 60 minutes, proceed to next-line agent or contact provider if no further options ordered. ondansetron (ZOFRAN-ODT) dispersible tablet 4 mg 4 mg, oral, Every 6 hours PRN, nausea, vomiting, Starting on 07/09/21 at 2243, 1st Line. If inadequate response within 60 minutes, proceed to next-line agent or contact provider if no further options ordered. Patient should allow tablet to dissolve on tongue. Do not remove from blister pack until just before administering. 07/12/2021 8:53 AM EDT 75 mg pregabalin (LYRICA) capsule 75 mg Given 75 mg, oral, Daily, First dose on 07/10/21 at 0900, 7 doses, Indications: fibromyalgia 75 mg Given 07/11/2021 9:34 AM EDT 75 mg Given 07/10/2021 8:38 AM EDT 07/11/2021 9:29 PM EDT 300 mg QUEtiapine (SEROquel) tablet 300 mg Given 300 mg, oral, Nightly, First dose on [place] 07/10/21 at 0100 300 mg Given 07/10/2021 7:46 PM EDT 300 mg Given 07/10/2021 1:19 AM EDT 07/12/2021 11:16 AM EDT 50 mg QUEtiapine (SEROquel) tablet 50 mg Given 50 mg, oral, 2 times daily, First dose on 07/10/21 at 0700, AM and NOON 50 mg Given 07/12/2021 8:53 AM EDT 50 mg Given 07/11/2021 11:15 AM EDT 07/12/2021 2:10 AM EDT 10 mg zolpidem (AMBIEN) tablet 10 mg Given 10 mg, oral, Nightly PRN, sleep, Starting on 07/10/21 at 2246 10 mg Given 07/10/2021 11:26 PM EDT Action Date Dose Rate Site Medication Order MAR Action 07/10/2021 12:35 AM EDT 2.5 mg albuterol 2.5 mg/0.5 mL nebulizer Given solution 2.5 mg 2.5 mg, nebulization, 4 times daily, First dose on 07/10/21 at 0030 07/10/2021 7:28 AM EDT 2.5 mg albuterol 2.5 mg/3 mL (0.083%) nebulizer Given solution - ADS Override Pull Starting on Sun07/10/21 at 0655, 1 dose , Created by cabinet override 07/10/2021 11:18 AM EDT 2.5 mg albuterol 2.5 mg/3 mL (0.083%) nebulizer Given solution - ADS Override Pull Starting on Sun07/10/21 at 1109, 1 dose , Created by cabinet override 07/12/2021 11:14 AM EDT 2.5 mg albuterol 2.5 mg/3 mL (0.083%) nebulizer Given solution 2.5 mg 2.5 mg, nebulization, 4 times daily, First dose on 07/10/21 at 1600 2.5 mg Given 07/12/2021 7:01 AM EDT 2.5 mg Given 07/11/2021 8:12 PM EDT 07/10/2021 1:30 AM EDT 5 mg melatonin tablet 5 mg Given 5 mg, oral, Nightly PRN, sleep, Startin g on 07/10/21 at 0124 07/12/2021 12:06 AM EDT 20 mg methylPREDNISolone sodium succinate PF Given (SOLU-MEDROL) injection 20 mg 20 mg, intravenous, Every 12 hours, First dose on 07/10/21 at 0100 20 mg Given 07/11/2021 1:53 PM EDT 20 mg Given 07/11/2021 12:58 AM EDT 07/12/2021 1:48 PM EDT 40 mg predniSONE (DELTASONE) tablet 40 mg Given 40 mg, oral, Once, On Sun07/12/21 at 1500, 1 dose documented in this encounter Active and Recently Administered Medications Times are shown in EDT. 07/11/2021 07/12/2021 Medication Order 07/10/2021 albuterol 2.5 mg/0.5 mL nebulizer 0035 (Given - solution 2.5 mg (CANCELED) Provider: Yudy 2.5 mg, nebulization, 4 times daily, Roni, GINNER HELPER)080 0 First dose on Sun07/10/21 at 0030 (Not Given - Provider: Valentine Horner RRT - Reason: Other - Comment: already given)1200 (Not Given - Provider: Valentine Horner RRT - Reason: Other - Comment: already given) 0547 (Given - Provider: Kendra Gtz GINNER HELPER )1144 (Given - Provider: Mariela Stern GINNER HELPER)1601 (Given - Provider: Whitley Conklin RRT)2012 (Given - Provider: Whitley Conklin RRT) 0701 (Given - Provider: Fifi Mack RT)1114 (Given - Provider: Ivette Kuhn GINNER HELPER) albuterol 2.5 mg/3 mL (0.083%) nebulizer 1529 (Given - solution 2.5 mg (CANCELED) Provider: Leo 2.5 mg, nebulization, 4 times daily, RICHY Damian)19 41 First dose on [place] 07/10/21 at 1600 (Given - Provider: Marciano Miller, RICHY) 0934 (Given - Provider: Gagandeep Gilbert RN)2120 (Given - Provider: Jareth Bey RN) 0854 (Given - Provider: Gagandeep Gilbert RN)2100 (Due) apixaban (ELIQUIS) tablet 5 mg 0119 (Given - 5 mg, oral, 2 times daily, First dose on Provider: Jaylon melton [place] 07/10/21 at 0045, Indications: magnus Kern RN)08 38 venous thrombosis (Given - Provider: Alanis Fatima RN)1946 (Given - Provider: Eddie Munoz RN) 0935 (Given - Provider: Gagandeep Gilbert RN)2121 (Given - Provider: Jareth Bey RN) 0855 (Given - Provider: Gagandeep Gilbert , MARCOS)2100 (Due) diphenhydrAMINE (BENADRYL) injection 25 0122 (Given - mg Provider: Edna 25 mg, intravenous, 2 times daily, First Erlin RN) 0839 dose on 07/10/21 at 0015 (Given - Provider: Alanis Fatima RN)1946 (Given - Provider: Eddie Munoz RN) 0933 (Given - Provider: Gagandeep Gilbert RN) 0854 (Given - Provider: Gagandeep Gilbert RN) FLUoxetine (PROzac) tablet 20 mg 0839 (Given - 20 mg, oral, Daily, First dose on Sun Provider: Chuy ramsay 07/10/21 at 0900 MARCOS Faitma) 0934 (Given - Provider: Gagandeep Gilbert RN) 0854 (Given - Provider: Gagandeep Gilbert RN) hydroCHLOROthiazide (HYDRODIURIL) tablet 0839 (Given - 12.5 mg Provider: Alanis 12.5 mg, oral, Daily, First dose on Sun MARCOS Fatima) 07/10/21 at 0900, Indications: hypertension 2127 (Given - Provider: Jareth Bey RN) 2100 (Due) lamoTRIgine (LaMICtal) tablet 100 mg 0119 (Given - 100 mg, oral, Nightly, First dose on Sun Provider: Jaylon melton 07/10/21 at 0030 MARCOS Kern)1946 (Given - Provider: Eddie Munoz RN) 0934 (Given - Provider: Gagandeep Gilbert RN) 0853 (Given - Provider: Gagandeep Gilbert RN) lamoTRIgine (LaMICtal) tablet 150 mg 0838 (Given - 150 mg, oral, Daily, First dose on Sun Provider: Danilo harrington 07/10/21 at 0900 MARCOS Fatima) 0058 (Given - Provider: Fifi Lee)1353 (Given - Provider: El May RN) 0006 (Given - Provider: Radha Azul RN)1318 (Not Given - Provider: Gagandeep Gilbert RN - Reason: Other - Comment: unable to flush IV) methylPREDNISolone sodium succinate PF 0120 (Given - (SOLU-MEDROL) injection 20 mg (CANCELED) Provider: Jaylon melton 20 mg, intravenous, Every 12 hours, MARCOS Kern)1237 First dose on 07/10/21 at 0100 (Given - Provider: Eddie Munoz RN) 0934 (Given - Provider: Gagandeep Gilbert RN) 0854 (Given - Provider: Gagandeep Gilbert RN) NIFEdipine XL (PROCARDIA XL) 24 hr 0839 (Given - tablet 30 mg Provider: Alanis 30 mg, oral, Daily, First dose on Sun MARCOS Fatima) 07/10/21 at 0900, Do not crush, chew, or split. 1348 (Given - Provider: Gagandeep Gilbert RN) predniSONE (DELTASONE) tablet 40 mg (COMPLETED) 40 mg, oral, Once, On Sun07/12/21 at 1500, 1 dose 0934 (Given - Provider: Gagandeep Gilbert RN) 0853 (Given - Provider: Gagandeep Gilbert RN) pregabalin (LYRICA) capsule 75 mg 0838 (Given - 75 mg, oral, Daily, First dose on Sun Provider: Mind y 07/10/21 at 0900, 7 doses, Indications: MARCOS Fatima) fibromyalgia 9 (Given - Provider: Jareth Bey RN) 2100 (Due) QUEtiapine (SEROquel) tablet 300 mg 0119 (Given - 300 mg, oral, Nightly, First dose on Sun Provider: Jaylon melton 07/10/21 at 0100 MARCOS Kren)1946 (Given - Provider: Eddie Munoz RN) 0753 (Given - Provider: Gagandeep Gilbert RN)1115 (Given - Provider: Gagandeep Gilbert RN) 0853 (Given - Provider: Gagandeep Gilbert RN - Comment: giving patient care)1116 (Given - Provider: Gagandeep Gilbert RN) QUEtiapine (SEROquel) tablet 50 mg 0839 (Given - 50 mg, oral, 2 times daily, First dose Provider: Danilo harrington on 07/10/21 at 0700, AM and NOON MARCOS Fatima)1237 (Given - Provider: Eddie Munoz RN) 07/11/2021 07/12/2021 Medication Order 07/10/2021 acetaminophen (TYLENOL) 160 mg/5 mL solution 640 mg(Linked Group 1) 640 mg (rounded from 650 mg), oral, Every 4 hours PRN, mild pain, Starting on 07/09/21 at 2243, Give oral liqui d if patient prefers or per feeding tube if present. If inadequate response within 60 minutes, proceed to next-line agent for same PRN reason or contact provider if no further options ordered. acetaminophen (TYLENOL) suppository 650 mg(Linked Group 1) 650 mg, rectal, Every 4 hours PRN, mild pain, Starting on 07/09/21 at 2243, Give GA if unable to administer by mout h or feeding tube. If inadequate response within 60 minutes, proceed to next-line agent for same PRN reason or contact provider if no further options ordered. acetaminophen (TYLENOL) tablet 650 mg(Linked Group 1) 650 mg, oral, Every 4 hours PRN, mild pain, Starting on 07/09/21 at 2243, If inadequate response within 60 minutes, proceed to next-line agent for same PRN reason or contact provider if no further options ordered. albuterol 2.5 mg/3 mL (0.083%) nebulize r solution 2.5 mg 2.5 mg, nebulization, Every 2 hour PRN, wheezing, Starting on Sun07/12/21 at 1330 1115 (Given - Provider: Gagandeep Gilbert RN)2247 (Given - Provider: Jareth Bey RN) 0856 (Given - Provider: Gagandeep Gilbert RN) amakgeojfl-qpfiuxqpkredp-fgecrrde (FIORICET) 50-325-40 mg per tablet 1 tablet 1 tablet, oral, Every 8 hours PRN, headaches, migraine, Starting on 07/11/21 at 1004 1145 (Given - Provider: Gagandeep Gilbert RN) clonazePAM (KlonoPIN) dispersible tablet 1417 (Given - 1 mg Provider: Eddie 1 mg, oral, 3 times daily PRN, anxiety, MARCOS Munoz) 2222 seizures, Starting on 07/09/21 at (Given - Provid er: 2312, [facility] Cat 3 - follow Safe Handling Eddie roe RN) Precautions when administering ; Refer to Pharmacy Resources on hospital intranet page for additional info. 0934 (Given - Provider: Gagandeep Gilbert , MARCOS)1616 (Given - Provider: Gagandeep Gilbert, MARCOS) 1117 (Given - Provider: Gagandeep Gilbert RN) HYDROcodone-acetaminophen (NORCO) 5-325 0124 (Given - mg per tablet 1 tablet Provider: Edna 1 tablet, oral, Every 6 hours PRN, MARCOS Kern)0846 moderate pain, Starting on 07/09/21 (Given - Prov ider: at 2312 Alanis Fatima RN)2101 (Given - Provider: Eddie Munoz RN) melatonin tablet 5 mg (CANCELED) 0130 (Given - 5 mg, oral, Nightly PRN, sleep, Starting Provider: Jaylon melton on 07/10/21 at 0124 MARCOS Kern) ondansetron (ZOFRAN) injection 4 mg(Linked Group 2) 4 mg, intravenous, Every 6 hours PRN, nausea, vomiting, Starting on 07/09/21 at 2243, 1st Line. Give IV if patient is unable to take orally. If inadequate response within 60 minutes, proceed to next-line agent or contact provider if no further options ordered. ondansetron (ZOFRAN-ODT) dispersible tablet 4 mg(Linked Group 2) 4 mg, oral, Every 6 hours PRN, nausea, vomiting, Starting on 07/09/21 at 2243, 1st Line. If inadequate response within 60 minutes, proceed to next-line agent or contact provider if no further options ordered. Patient should allow tablet to dissolve on tongue. Do not remove from blister pack until just before administering. 0210 (Given - Provider: Radha Azul RN) zolpidem (AMBIEN) tablet 10 mg 2326 (Given - 10 mg, oral, Nightly PRN, sleep, Provider: Joy Starting on 07/10/21 at 2246 MARCOS Segura) 07/11/2021 07/12/2021 Medication Order 07/10/2021 albuterol 2.5 mg/3 mL (0.083%) nebulizer 0728 (Given - solution - ADS Override Pull Provider: Valentine (COMPLETED) RICHY Horner) Starting on 07/10/21 at 0655, 1 dose , Created by cabinet override albuterol 2.5 mg/3 mL (0.083%) nebulizer 1118 (Given - solution - ADS Override Pull Provider: Valentine (COMPLETED) RICHY Horner) Starting on 07/10/21 at 1109, 1 dose , Created by cabinet override Order Group 1: acetaminophen (TYLENOL) tablet 650 mgJu mp to med 650 mg, oral, Every 4 hours PRN, mild p ain, Starting on 07/09/21 at 2243
If inadequate response within 60 minutes, proceed to next-line agent for same PRN reason or contact provider if no further options ordered.
Or acetaminophen (TYLENOL) 160 mg/5 mL harry ution 640 mgJump to med 640 mg (rounded from 650 mg), oral, Zainab ry 4 hours PRN, mild pain, Starting on 07/09/21 at 2243
Give oral liquid if patient pre fers or per feeding tube if present. If inadequate response within 60 minutes, proceed to next-line agent for same PRN reason or contact provider if no further options ordered.
Or acetaminophen (TYLENOL) suppository 650 mgJump to med 650 mg, rectal, Every 4 hours PRN, mild pain, Starting on 07/09/21 at 2243
Give GA if unable to administer by mouth or feeding tube. If inadequate response within 60 minutes, proceed to next-line agent for same PRN reason or contact provider if no further options ordered.
Group 2: ondansetron (ZOFRAN-ODT) dispersible ta blet 4 mgJump to med 4 mg, oral, Every 6 hours PRN, nausea, vomiting, Starting on 07/09/21 at 2243
1st Line. If inadequate response within 60 minutes, proceed to next-line agent or contact provider if no further options ordered. Patient should a llow tablet to dissolve on tongue. Do not remove from blister pack until just before administering.<b r> Or ondansetron (ZOFRAN) injection 4 mgJump to med 4 mg, intravenous, Every 6 hours PRN, n ausea, vomiting, Starting on 07/09/21 at 2243
1st Line. Give IV if patient is unable to take or ally. If inadequate response within 60 minutes, proceed to next-line agent or contact provider if no further options ordered.
documented in this encounter Insurance Type Payer Benefit Subscriber ID Effective Phone Address Plan / Dates Group SWATHI ECHEVARRIA [id number] 2018-P [phone] [id number] documented as of this encounter Advance Directives Date Inactivated Comments Code Status Date Activated Full Code 07/09/2021 10:43 PM
--- OUTSIDE RECORDS SUMMARY | 2021-10-04 04:49 | CCD ---
Author Author [facility] Organization [facility] Address Unknown Phone Unavailable Care Team Providers Care Social Media Analyst Name Role Phone Kris Barrientos Unavailable PROBLEMS Type Condition ICD9-CM Code LMC04-SG Code Onset Dates Condition S tatus W/U Status Risk SNOMED Code Notes Problem Neoplasm of uncertain behavior of skin D48.5 A ctive confirmed 26366453 Problem Lumbosacral spondylosis without myelopathy M47.817 Active confirmed 70831220 Problem Migraine, unspecified, not intractable, without status migrainosus G43.909 Active confirmed 24546847 Problem Chronic migraine without aur a, not intractable, without status migrainosus G43.709 Active confirmed 997855473660005 Problem Other chronic pain G89.29 Active confirmed 8 4818822 Problem Chronic migraine G43.709 Active confirmed 42 3110468 ALLERGIES Allergen (clinical drug ingredient) Drug/Non Drug Allergy do cumented on EMR Reaction Allergy Type Onset Date Status Kiwi Anaphylaxis Non Drug Allergy Active tramadol Tramadol Unknown Drug Allergy Active enoxaparin Lovenox(NDC Code:[address]-84) Unknown Drug Allergy Active famotidine Pepcid(NDC Code:[address]-89) Nausea/Vomiting Drug Allerg y Active promethazine Phenergan(NDC Code:[address]-00) Nausea/Vomiting Drug A llergy Active Av[place]ados Anaphylaxis Non Drug Allergy Active poractant carrol Pork-derived Products Unknown Drug Allergy Active Latex Exam Gloves Hives Drug Allergy Activ e Bananas Anaphylaxis Non Drug Allergy Active hydroxychloroquine Plaquenil(NDC Code:[address]-61) Anaphylaxis Drug Allergy Active ENCOUNTERS from 1989 to 2021-07-07 Encounter Location Date Provider Diagnosis [facility] [address] [phone] [place] [address] Jun, Kris Barrientos IMMUNIZATIONS No Information SOCIAL HISTORY Tobacco Use: Social History Observation Description Date Details (start date - stop date) Former Smoker Sex Assigned At : Social History Observation Description Sex Assigned At Unknown Education: Question Answer Notes Level of Education: College Language: Question Answer Notes Languages spoken: Maori Yarsanism: Question Answer Notes Yarsanism No quaker beliefs that would impact health care. Alcohol [...] the morning Orally Once a day Active SEROquel 50 MG 1 cap Orally MORNING AND LUNCH Active Botox 100 UNIT for IM injection at the head , neck and shoulder muscles ICD G43.709 every 3 months Botox 07/05/21 10:40 Jun, Active lamoTRIgine 150 MG 1 tablet Orally Once a day in am Active Ambien 10 MG 1 tablet at bedtime as needed Orally Once a day 07/04/210 Active Eliquis 5MG ORAL BID Active Ambien 10 MG 1 tablet at bedtime as needed Orally Once a day Not-Taking lamoTRIgine 100 MG 1 tablet Orally bedtime Active SEROquel 300 MG 1 tablet at bedtime Orally Once a day for 30 day(s) Active DuoNeb 0.5-2.5 (3) MG/3ML 3 ml as needed Inhalation every 6 hrs Active Botox 100 UNIT for IM injection at the head , neck and shoulder muscles ICD G43.709 BOTOX on 02/21/21 at 1:00 Feb, Not-Taking Botox 100 UNIT for IM injection at the head , neck and shoulder muscles ICD G43.709 BOTOX APPT ON 11/22/2020 AT 2PM. 06 Nov, 2020 Not-Taking Keppra 750 MG 2 tabs Orally bid Not- Taking EpiPen PRN Active Fioricet 50-325-40 MG 1 tablet as needed Orally ev darlene 4 hrs PRN headache MDD6 for 7 days PRN 07/04/212199 Active Cetirizine HCl 10 MG 1 tablet Orally Once a day for 30 day(s) Active HYDROcodone-Acetaminophen 5-325 MG 1 tablet as needed Orally twice daily as needed for 30 days PRN 07/04/212199Jun, Active KlonoPIN 1 MG 1 tablet Orally 3 times a day 07/04/212199 Active PROCEDURES No Information RESULTS No Results REASON FOR VISIT Physical therapy order MEDICAL (GENERAL) HISTORY Type Description Date Medical [...] TREATMENT Next Appt Details Provider Name:Kris Barrientos, 2021-08-05 01:30:00 PM, [address], , [place], [address], Insurance Providers Payer Name Payer Address Payer Phone Insured Name Patient Relati onship to Insured Coverage Start Date Coverage End Date FORMERLY [facility]POR[facility] CLAIMS DEPT [address] [facility] [phone] WINSOME RODRIGUEZ self
[2021-10-04 06:43] LABS: BASO # 0.1 10^3/uL (0.0-0.2); BASO % 0.3 % (0.0-1.0); EOS # 0.2 10^3/uL (0.0-0.5); HEMATOCRIT 30.6 % (36.0-47.0); HEMOGLOBIN 9.2 g/dl (12.0-15.5); LYMPH # 4.4 10^3/uL (1.5-5.0); LYMPH % 24.2 % (24.0-44.0); MEAN CORPUSCULAR HEMOGLOBIN 23.5 pg (27.0-33.0); MEAN CORPUSCULAR HGB CONC 30.1 g/dl (32.0-36.5); MEAN CORPUSCULAR VOLUME 78.3 fl (80.0-96.0); MONO # 0.9 10^3/uL (0.0-0.8); MONO % 5.2 % (2.0-8.0); NEUTROPHILS # 12.4 10^3/uL (1.5-8.5); NEUTROPHILS % 68.6 % (36.0-66.0); PLATELET COUNT, AUTOMATED 410 10^3/uL (150-450); RED BLOOD COUNT 3.91 10^6/uL (4.00-5.40); WHITE BLOOD COUNT 18.1 10^3/uL (4.0-10.0)
[2021-10-04 07:05] LABS: HCG, SERUM QUALITATIVE NEGATIVE (NEGATIVE)
[2021-10-04 07:06] LABS: ALBUMIN 3.1 GM/DL (3.2-5.2); ALT/SGPT 20 U/L (12-78); BILIRUBIN,DIRECT < 0.1 MG/DL (0.0-0.2); BILIRUBIN,TOTAL < 0.1 MG/DL (0.2-1.0); BLOOD UREA NITROGEN 6 MG/DL (7-18); CALCIUM LEVEL 8.7 MG/DL (8.5-10.1); CARBON DIOXIDE LEVEL 27 MEQ/L (21-32); CHLORIDE LEVEL 110 MEQ/L (98-107); CREATININE FOR GFR 0.63 MG/DL (0.55-1.30); GLOMERULAR FILTRATION RATE > 60.0 (>60); GLUCOSE, FASTING 94 MG/DL (70-100); POTASSIUM SERUM 3.7 MEQ/L (3.5-5.1); SODIUM LEVEL 144 MEQ/L (136-145); TOTAL PROTEIN 6.2 GM/DL (6.4-8.2)
[2021-10-04] MEDS ORDERED: dexameTHASONE 4 MG/ML 1ML VIAL (J1100 PER 1MG) IV ONE (07:40)
[2021-10-04] MEDS: COMBIVENT RESPIMAT 100-20MCG INHALER 4GM INH SCH ×3 (07:41→08:19)
[2021-10-04] MEDS ORDERED: ISOVUE-370 76% 100ML VIAL As Ordered ONE (07:44)
[2021-10-04 07:58] LABS: ABG BASE EXCESS -0.4 (-2.0-2.0); ABG HCO3 23.9 MEQ/L (22.0-26.0); ABG O2 SATURATION 97.7 % (95.0-99.0); ABG PARTIAL PRESSURE CO2 38.1 mmHg (35.0-45.0); ABG PARTIAL PRESSURE O2 98.1 mmHg (75.0-100.0); ABG STANDARD HCO3 24.1 MEQ/L (22.0-26.0); ABG TOTAL CO2 25.1 MEQ/L (22.0-29.0); ABG pH (ARTERIAL) 7.416 UNITS (7.350-7.450)
[2021-10-04 08:00] LABS: NT-PRO BNP 95 PG/ML (<125)
[2021-10-04] MEDS ORDERED: ELIQ5TAB PO (08:04)
[2021-10-04] MEDS ORDERED: DRIS50003 PO (08:04)
[2021-10-04] MEDS ORDERED: FREM225A SQ (08:04)
[2021-10-04] MEDS ORDERED: COLA100C5 PO (08:04)
[2021-10-04] MEDS ORDERED: FERR1TAB8 PO (08:04)
[2021-10-04] MEDS ORDERED: BOTO200I INJ (08:04)
[2021-10-04] MEDS ORDERED: HOME MED LIST COMPLETE! XX SCH (08:10)
--- NOTE | 2021-10-04 08:21 | REP ---
INDICATION: sob COMPARISON: 07/07/2021 TECHNIQUE: Portable AP view of the chest FINDINGS: The mediastinum and cardiac silhouette are stable and cardiomegaly is again suggested. The lung muniz are clear without acute consolidation, effusion, or pneumothorax. Skeletal structures are intact. IMPRESSION: No acute cardiopulmonary process appreciated. <Electronically signed by Hossein Ingram > 10/04/21 0884
--- NOTE | 2021-10-04 08:47 | REP ---
INDICATION: sob, hx lupux, pl eff, pericardial effus, dvt COMPARISON: None. TECHNIQUE: Axial contrast enhanced images from the thoracic inlet to the upper abdomen using pulmonary embolus technique with multiplanar re-formations. 75 ml Isovue 370 intravenous contrast material administered without complication. This CT examination was performed using the following dose reduction techniques: Automated exposure control, adjustment of mA and/or kv according to the patient's size, and use of iterative reconstruction technique. FINDINGS: Evaluation is limited by motion artifact. No obvious pulmonary embolus to the main or 1st order pulmonary arteries are identified. The thoracic aorta is without aneurysm or dissection. Cardiomegaly noted without significant pericardial effusion. The lung muniz demonstrate satisfactory aeration without consolidation, effusion, or pneumothorax. Tracheobronchial tree is patent. Surrounding musculoskeletal structures are intact. IMPRESSION: Limited examination. No obvious pulmonary embolus. No acute mediastinal or pleuroparenchymal process appreciated. <Electronically signed by Hossein Ingram > 10/04/21 8383
[2021-10-04 08:57] LABS: ERYTHROCYTE SEDIMENTATION RATE 49 mm/hr (0-20)
[2021-10-04] MEDS: APIXABAN 5 MG TAB (ELIQUIS) PO SCH ×3 (09:00→22:02)
[2021-10-04] MEDS ORDERED: PERCOCET 5MG/325MG TAB PO ONE (09:15)
[2021-10-04] MEDS ORDERED: DOCUSATE SODIUM 100MG CAPSULE PO PRN (09:50)
[2021-10-04] MEDS ORDERED: ALBUTEROL 90 MCG/ACT 8GM HFA INHALER INH PRN (09:50)
[2021-10-04] MEDS ORDERED: ALBUTEROL SULFATE 2.5 MG/0.5 ML INH NEB SOLN INH PRN (09:50)
[2021-10-04] MEDS ORDERED: **SFRHE** EPINEPHrine (EPIPEN) 0.3MG/0.3ML SYRINGE INJ PRN (09:50)
[2021-10-04] MEDS ORDERED: FIORICET TAB PO PRN (09:50)
[2021-10-04] MEDS ORDERED: PILL CUTTER 1 EACH XX PRN (10:55)
[2021-10-04] MEDS: IPRATROPIUM 0.5MG/ALBUTEROL 2.5MG INH SOL UD 3ML (DUONEB) NEB SCH ×3 (12:00→23:22)
[2021-10-04] MEDS ORDERED: methylPREDNISolone 125MG 2ML VIAL IV SCH (12:00)
[2021-10-04] MEDS: lamoTRIgine 100MG TAB PO SCH ×2 (12:49→17:56)
[2021-10-04] MEDS: clonazePAM 1 MG TAB PO SCH ×3 (12:50→22:00)
[2021-10-04] MEDS: QUEtiapine FUMARATE 50MG TAB PO SCH (12:50)
[2021-10-04] MEDS: hydroCHLOROthiazide 12.5 MG CAPSULE PO SCH ×2 (12:50→17:56)
[2021-10-04] MEDS: CETIRIZINE (ZyrTEC) 10 MG TAB PO SCH (12:50)
[2021-10-04] MEDS: FERROUS SULFATE 325MG TAB PO SCH (12:50)
[2021-10-04 14:30] VITALS: BP 170/92
[2021-10-04] MEDS: NORCO, ANEXSIA 5/325MG TABLET (HYDROcodone/ACETAMINOPHEN) PO SCH ×2 (14:46→23:25)
[2021-10-04] MEDS: NIFEdipine 30 MG XL TAB PO SCH (14:54)
[2021-10-04] MEDS: predniSONE 10 MG TAB PO ONE ×2 (15:20→15:48)
--- NOTE | 2021-10-04 17:17 | HPEPDOC ---
[facility] Medical History & Physical Date of Admission Oct 04, 2021 Date of Service: Oct 04, 2021 Attending Physician: LON AMOR DO History and Physical CHIEF COMPLAINT: Fever and shortness of breath HISTORY OF PRESENT ILLNESS: Patient is a 31-year-old female presented to the emergency department last night for the third time and 48 hours with chief complaint of a fever and shortness of breath. Patient been seen due to having a possible lupus flare. Patient states that she has been having increased shortness of breath with wheezing despite using her nebulizer. Patient states that she was told that if she does have a fever to return to the emergency department. Patient did return back to the emergency department yesterday evening after being discharged earlier in the day. Patient received a dose of IV Solu-Medrol however, the patient was unable to picker box operator the oral steroid so she reported back to the emergency department. Patient was complaining of shortness of breath and does have a history of DVT so CT angiogram was performed and ruled out pulmonary embolus. Patient is still complaining of shortness of breath and lesions on her tongue as well as all over body pain. Patient denies any chest pain at this time. PAST MEDICAL HISTORY: 1. Traumatic brain injury. 2. Seizures. 3. Lupus. 4. Obesity 5. Asthma 6. Anxiety 7. Right upper extremity DVT PAST SURGICAL HISTORY: 1. C-sections x5. 2. Multiple D&C. 3. Appendectomy. 4. Cholecystectomy 5. Tubal ligation SOCIAL HISTORY: Denies smoking, very occasionally drink alcohol and denies illicit drug use. FAMILY HISTORY: Mother has history of diabetes and hypertension, father has history of diabetes hypertension heart disease ALLERGIES: Please see below. REVIEW OF SYSTEMS: General: Patient reports fevers with T-max of 102 HEENT: Patient denies headaches Cardiovascular: Patient denies chest pain Respiratory: Patient reports shortness of breath, cough as above GI: Patient denies abdominal pain, nausea, vomiting, diarrhea : Patient denies increased frequency or pain with urination Extremities: Patient denies swelling or pain in extremities Neurological: Patient denies numbness or tingling in legs Skin: Patient denies any new rashes or lesions. Hematologic: Patient denies any easy bruising. Lymphatic: Patient denies any lumps lumps or bumps in neck, axilla, or groin HOME MEDICATIONS: Please see below. PHYSICAL EXAMINATION: VITAL SIGNS: Temperature 99.3, pulse 104, respiratory rate 18, blood pressure 170/92, pulse oximetry 98% on room air. General: Alert and oriented female patient who was sitting on the stretcher when I walked in. Patient not appear to be in any acute distress. HEENT: Normocephalic, atraumatic, moist mucous membranes, no lesions on the tongue Neck: No lymphadenopathy or thyromegaly Cardiac: Regular rate and rhythm, no murmurs, normal S1, normal S2 Pulm: Clear to auscultation bilaterally. No wheezes, rhonchi, rales Abd: Nondistended, nontender to palpation, normal bowel sounds Ext: No edema bilateral lower extremities Neuro: Patient was able to move all 4 extremities on command and reported equal sensation light touch in all 4 extremities. Skin: Skin of the head, neck, upper and lower extremities was examined did not show any evidence of rash or wounds. LABORATORY DATA: See below. IMAGING: Chest x-ray performed on 10/04/2021 is reported to show no acute cardio pulmonary process appreciated. CT angiogram of the chest performed on 10/04/2021 is reported to limited examination. No obvious pulmonary embolus. No acute mediastinal pleural- parenchymal process appreciated. MICROBIOLOGY: Please see below. ASSESSMENT: 31-year-old female presented to the emergency department with shortness of breath who also believes she may have a lupus flare with joint pain and lesions on her tongue who was diagnosed with an asthma exacerbation and SLE exacerbation . PLAN: 1. Asthma exacerbation. Plan was to give the patient IV steroids however, patient was a difficult stick and began refusing IV. Patient really did receive IV dexamethasone 6 mg in the emergency department. Patient was not wheezing by the time of my evaluation was on room air. Patient can be transitioned to p.o. steroids. The patient is tolerating room air and does not increase her wheezing , patient can be discharged tomorrow. 2. SLE exacerbation. I did speak with the patient's oracle adf developer who called me who stated that the patient's diagnosis of lupus is tenuous and is still a possible working diagnosis. He did recommend starting patient on 10 mg of prednisone a day for 10 days and then 5 mg prednisone for 10 days and then stopping. This is been started at this time. 3. Hypertension. Patient's blood pressure has been elevated. Patient will be started on her home medications. 4. Anxiety. Patient will continue her home medications. 5. Right upper extremity DVT. Continue home Eliquis. 6. Class III obesity, complicating patient's care. DVT prophylaxis: Continue Eliquis. CODE STATUS: Full code Disposition: Patient will be admitted to the medical surgical floor. Patient presented to the emergency department on 10/03/2021 and I do expect the patient to be discharged after 2 midnight stay from then. Vital Signs Vital Signs Date Time Temp Pulse Resp B/P (MAP) Pulse Ox O2 Delivery O2 Flow Rate FiO2 10/04/21 15:30 18 10/04/21 14:54 170/92 10/04/21 14:30 99.3 104 98 Room Air Laboratory Data Labs 24H Laboratory Tests 2 10/04/21 06:23: Immature Granulocyte % (Auto) 0.7, Neutrophils (%) (Auto) 68.6H, Lymphocytes (%) (Auto) 24.2, Monocytes (%) (Auto) 5.2, Eosinophils (%) (Auto) 1.0, Basophils (%) (Auto) 0.3, Neutrophils # (Auto) 12.4H, Lymphocytes # (Auto) 4.4, Monocytes # (Auto) 0.9H, Eosinophils # (Auto) 0.2, Basophils # (Auto) 0.1, Nucleated Red Blood Cells % (auto) 0.0, Erythrocyte Sedimentation Rate 49H, Anion Gap 7L, Glomerular Filtration Rate > 60.0, Lactic Acid Level 1.5, Calcium Level 8.7, Total Bilirubin < 0.1L, Direct Bilirubin < 0.1, Aspartate Amino Transf (AST/SGOT) 10, Alanine Aminotransferase (ALT/SGPT) 20, Alkaline Phosphatase 108, C-Reactive Protein, Quantitative 1.00H, CC-Jmq-G-Type Natriuretic Peptide 95, Total Protein 6.2L, Albumin 3.1L, Albumin/Globulin Ratio 1.0L, Human Chorionic Gonadotropin, Qual NEGATIVE 10/04/21 07:50: POC Troponin I (Misc) 0.01, Blood Gas Bicarbonate Standard 24.1, Arterial Blood pH 7.416, Arterial Blood Partial Pressure CO2 38.1, Arterial Blood Partial Pressure O2 98.1, Arterial Blood Total CO2 25.1, Arterial Blood HCO3 23.9, Arterial Blood Base Excess -0.4, Arterial Blood Oxygen Saturation 97.7 10/04/21 10:20: Procalcitonin 0.09 CBC/BMP Laboratory Tests 10/04/21 06:23 Microbiology Microbiology 10/04/21 Respiratory Virus Panel (PCR) (SADA) - Final, Complete 10/04/21 Blood Culture, Received Pending 10/04/21 Blood Culture, Received Pending Home Medications Scheduled Apixaban (Eliquis) 5 Mg Tablet, 5 MG PO BID Belimumab (Benlysta) 200 Mg/1 Ml Auto.injct, 200 MG SC QWEEK MONDAYS Cetirizine HCl (Cetirizine HCl) 10 Mg Tablet, 10 MG PO DAILY Clonazepam (Clonazepam) 1 Mg Tablet, 1 MG PO TID Ergocalciferol (Vitamin D2) (Drisdol) 1,250 Mcg Capsule, 1,250 MCG PO QWEEK SUNDAYS Ferrous Sulfate (Ferrous Sulfate) 325 Mg Tablet, 325 MG PO DAILY Fluoxetine Hcl (Fluoxetine HCl) 40 Mg Capsule, 80 MG PO QHS Fremanezumab-Vfrm ([employer]ovy Autoinjector) 225 Mg/1.5 Ml Auto.injct, 225 MG SQ Q3M Hydrochlorothiazide (Hydrochlorothiazide) 12.5 Mg Capsule, 12.5 MG PO DAILY Hydrocodone/Acetaminophen (Hydrocodone-Acetamin 5-325 mg) 1 Each Tablet, 1 TAB PO BID Lamotrigine (Lamotrigine) 150 Mg Tablet, 150 MG PO DAILY Lamotrigine (Lamotrigine) 100 Mg Tablet, 100 MG PO QHS Nifedipine (Nifedipine ER) 30 Mg Tablet.er, 30 MG PO DAILY Onabotulinumtoxina (Botox) 200 Unit Vial, 200 UNIT INJ ASDIRECTED FOR MIGRAINES, NEXT DOSE DUE 10/17/21 Prednisone (Prednisone) 20 Mg Tablet, 20 MG PO ASDIRECTED 3 po day 1-2; 2 po day 3-6; 1 po day 7-9 Pregabalin (Pregabalin) 75 Mg Capsule, 75 MG PO QHS Quetiapine Fumarate (Quetiapine Fumarate) 300 Mg Tablet, 300 MG PO QHS Quetiapine Fumarate (Quetiapine Fumarate) 50 Mg Tablet, 50 MG PO BID TAKE QAM AND AT NOON Zolpidem Tartrate (Zolpidem Tartrate) 10 Mg Tablet, 10 MG PO QHS Scheduled PRN Albuterol Sulfate (Proair Hfa) 8.5 Gm Hfa.aer.ad, 2 PUFF INH Q4H PRN for SHORTNESS OF BREATH Albuterol Sulfate (Albuterol Sulfate) 1.25 Mg/3 Ml Vial.neb, 1.25 MG INH Q4H PRN for SHORTNESS OF BREATH Butalb/Acetaminophen/Caffeine (Hapewe-Ottbpmxt-Sfot 50-325-40) 1 Each Tablet, 1 TAB PO Q4H PRN for MIGRAINE Docusate Sodium (Colace) 100 Mg Capsule, 100 MG PO TID PRN for CONSTIPATION Epinephrine (Epipen 2-Gunner) 0.3 Mg/0.3 Ml Auto.injct, 0.3 MG IM ASDIRECTED PRN for ANAPHYLAXIS Allergies Coded Allergies: Kiwi (Verified Allergy, Severe, anaphylaxis, 10/02/21) avocado (Verified Allergy, Severe, anaphylaxis, 10/02/21) banana (Verified Allergy, Severe, anaphylaxis, 10/02/21) hydroxychloroquine (Verified Allergy, Severe, anaphylaxis, 10/02/21) latex (Verified Allergy, Mild, rash, 10/02/21) enoxaparin (Verified Adverse Reaction, Intermediate, LOWERS SEIZURE THRESHOLD, 10/02/21) ketorolac (Verified Adverse Reaction, Intermediate, seizures, 10/02/21) methocarbamol (Verified Adverse Reaction, Intermediate, seizures, 10/02/21) famotidine (Verified Adverse Reaction, Mild, vomiting, 10/02/21) promethazine (Verified Adverse Reaction, Mild, vomiting, 10/02/21) A-FIB/CHADSVASC A-FIB History Current/History of A-Fib/PAF?: No Current PO Anticoag Therapy: Yes LON AMOR DO Oct 04, 2021 17:17
[2021-10-04] MEDS ORDERED: lamoTRIgine 100MG TAB PO SCH (21:00)
[2021-10-04] MEDS ORDERED: FLUoxetine 20 MG CAP PO SCH (21:00)
[2021-10-04] MEDS ORDERED: QUEtiapine FUMARATE 100 MG TAB PO SCH (21:00)
[2021-10-04] MEDS ORDERED: PREGABALIN 75 MG CAP(LYRICA) PO SCH (21:00)
[2021-10-04] MEDS ORDERED: NS 1,000 ML IV SCH (21:20)
[2021-10-04] MEDS ORDERED: FLUTICASONE PROP 0.05% NASAL SPRAY 16 GM (FLONASE) NARES PRN (21:20)
[2021-10-04] MEDS ORDERED: LEVALBUTEROL 1.25 MG/0.5 ML CONCENTRATE NEB INH PRN (21:20)
[2021-10-04 22:00] VITALS: BP 141/97
[2021-10-04] MEDS: BENZONATATE 100MG CAPSULE PO PRN ×2 (22:02→23:25)
[2021-10-04] MEDS ORDERED: methylPREDNISolone 40MG 1ML VIAL IV SCH (23:00)
[2021-10-04] MEDS ORDERED: ONDANSETRON 4MG/2ML VIAL IV PRN (23:05)
--- NOTE | 2021-10-04 23:11 | IPNPDOC ---
Text Note Date of Service The patient was seen on 10/04/21. NOTE Asked to see patient due to her reported discomfort. Upon entrance to room she appears very uncomfortable and notably wheezing. Patient respiratory rate 22 and she endorses feeling dehydrated and generalized pain. She is able to say few word phrases at a time. Upon lung field exam diminished bases, wheeze is upper anterior chest. Patient is tachycardic, regular heart rate 110. There is a component of body habitus. Plan for breathing treatment patient is already getting scheduled but she does have as needed as well. She endorses that she has a hard stick and had trouble upon admission and did not want to feel "like a pin cushion". Discussed need of IV access for fluids/preference for IV steroids since she is wheezing more than earlier in the day. Patient did agree to IV access placement -will order a bag of fluid as well as transition steroids to IV at present. Continue respiratory monitoring and possibly de-escalate steroids tomorrow pending her response. Patient has antianxiety and pain medication on profile. Will add antiemetic as she does endorses some nausea. VS,Fishbone, I+O VS, Fishbone, I+O Laboratory Tests 10/04/21 06:23 Vital Signs Date Time Temp Pulse Resp B/P (MAP) Pulse Ox O2 Delivery O2 Flow Rate FiO2 10/04/21 15:30 18 10/04/21 14:54 170/92 10/04/21 14:30 99.3 104 98 Room Air GRUDEEP ESPINOZA NP Oct 04, 2021 23:11
[2021-10-05] MEDS: IPRATROPIUM 0.5MG/ALBUTEROL 2.5MG INH SOL UD 3ML (DUONEB) NEB SCH ×4 (03:39→15:16)
[2021-10-05 05:46] VITALS: BP 141/97
[2021-10-05 07:51] LABS: HEMATOCRIT 30.4 % (36.0-47.0); HEMOGLOBIN 9.1 g/dl (12.0-15.5); MEAN CORPUSCULAR HEMOGLOBIN 23.3 pg (27.0-33.0); MEAN CORPUSCULAR HGB CONC 29.9 g/dl (32.0-36.5); MEAN CORPUSCULAR VOLUME 77.7 fl (80.0-96.0); PLATELET COUNT, AUTOMATED 414 10^3/uL (150-450); RED BLOOD COUNT 3.91 10^6/uL (4.00-5.40); WHITE BLOOD COUNT 15.1 10^3/uL (4.0-10.0)
[2021-10-05 08:35] LABS: BLOOD UREA NITROGEN 8 MG/DL (7-18); CALCIUM LEVEL 9.4 MG/DL (8.5-10.1); CARBON DIOXIDE LEVEL 26 MEQ/L (21-32); CHLORIDE LEVEL 110 MEQ/L (98-107); GLOMERULAR FILTRATION RATE > 60.0 (>60); GLUCOSE, FASTING 135 MG/DL (70-100); SODIUM LEVEL 142 MEQ/L (136-145)
[2021-10-05] MEDS ORDERED: predniSONE 20 MG TAB PO SCH (09:00)
[2021-10-05] MEDS ORDERED: predniSONE 10 MG TAB PO SCH (09:00)
[2021-10-05 09:08] VITALS: BP 141/97
[2021-10-05] MEDS: NIFEdipine 30 MG XL TAB PO SCH (09:08)
[2021-10-05] MEDS: APIXABAN 5 MG TAB (ELIQUIS) PO SCH (09:08)
[2021-10-05] MEDS: QUEtiapine FUMARATE 50MG TAB PO SCH ×2 (09:09→12:01)
[2021-10-05] MEDS: hydroCHLOROthiazide 12.5 MG CAPSULE PO SCH (09:09)
[2021-10-05] MEDS: NORCO, ANEXSIA 5/325MG TABLET (HYDROcodone/ACETAMINOPHEN) PO SCH (09:09)
[2021-10-05] MEDS: CETIRIZINE (ZyrTEC) 10 MG TAB PO SCH (09:09)
[2021-10-05] MEDS: clonazePAM 1 MG TAB PO SCH (09:09)
[2021-10-05] MEDS: FERROUS SULFATE 325MG TAB PO SCH (09:09)
[2021-10-05] MEDS: lamoTRIgine 100MG TAB PO SCH (09:10)
[2021-10-05 14:00] VITALS: BP 144/97
[2021-10-05] MEDS ORDERED: PRED20TA PO (14:29)
--- NOTE | 2021-10-05 16:42 | DS.PDOC ---
Discharge Summary General Date of Admission Oct 04, 2021 at 09:47 Date of Discharge 10/05/2021 Attending Physician: LON AMOR DO Discharge Summary PROCEDURES PERFORMED DURING STAY: None. ADMITTING DIAGNOSES: 1. Asthma exacerbation. 2. SLE exacerbation 3. Hypertension 4. Anxiety 5. Right upper extremity DVT 6. Class III obesity DISCHARGE DIAGNOSES: 1. Asthma exacerbation, improved 2. SLE exacerbation, improved 3. Hypertension 4. Anxiety 5. Right upper extremity DVT 6. Class III obesity COMPLICATIONS/CHIEF COMPLAINT: Asthma Exacerbation, Sle Exacerbation. HISTORY OF PRESENT ILLNESS: Patient is a 31-year-old female presented to the emergency department last night for the third time and 48 hours with chief complaint of a fever and shortness of breath. Patient been seen due to having a possible lupus flare. Patient states that she has been having increased shortness of breath with wheezing despite using her nebulizer. Patient states that she was told that if she does have a fever to return to the emergency department. Patient did return back to the emergency department yesterday evening after being discharged earlier in the day. Patient received a dose of IV Solu-Medrol however, the patient was unable to sheepskin pickler the oral steroid so she reported back to the emergency department. Patient was complaining of shortness of breath and does have a history of DVT so CT angiogram was performed and ruled out pulmonary embolus. Patient is still complaining of shortness of breath and lesions on her tongue as well as all over body pain. Patient denies any chest pain at this time. HOSPITAL COURSE: Patient did have an episode of wheezing overnight which required nebulizer therapy. Patient was attempted to give more doses of IV Solu-Medrol which she did receive 1 of however, the patient did rip out her IV again. It was a struggle to keep an IV in the patient throughout her hospitalization as the patient would say that they were "clot off" and she would end up removing them herself. Multiple attempts were given to try to use IV steroids however, patient began refusing additional IV sticks. Patient was transitioned to p.o. prednisone and her vital signs remained within normal limits. Patient did not appear to be wheezing on examination at the time of discharge. Patient says she was feeling somewhat ill this morning however, when I went to reevaluate the patient later on the afternoon, she says she is feeling better and was asking to go home. Since the vital signs were within normal limits and the patient's breathing had improved, the decision was made to discharge the patient home on p.o. prednisone. Advised the patient to sheepskin pickler the p.o. prednisone that I had sent in disregard the one that was sent previous as the patient had been in the emergency department 3 times within 36 hours and was sent prednisone home. Patient was discharged home on 10/05/2021. DISCHARGE MEDICATIONS: Please see below. ALLERGIES: Please see below. PHYSICAL EXAMINATION ON DISCHARGE: VITAL SIGNS: Please see below. General: Alert and oriented female patient who was sitting up in bed when I walked in. Patient not appear to be in any acute distress. HEENT: Normocephalic, atraumatic, moist mucous membranes. Neck: No lymphadenopathy or thyromegaly Cardiac: Regular rate and rhythm, no murmurs, normal S1, normal S2 Pulm: Clear to auscultation bilaterally. No wheezes, rhonchi, rales Abd: Nondistended, nontender to palpation, normal bowel sounds Ext: No edema bilateral lower extremities LABORATORY DATA: Please see below. IMAGING: Chest x-ray performed on 10/04/2021 is reported to show no acute cardiopulmonary process appreciated. CT angiogram of the chest performed on 10/04/2021 is reported to limited examination. No obvious pulmonary embolus. No acute mediastinal pleural- parenchymal process appreciated. PROGNOSIS: Good ACTIVITY: As tolerated. DIET: Regular DISCHARGE PLAN: Discharge home DISPOSITION: . DISCHARGE INSTRUCTIONS: 1. Follow-up with primary care provider within 7 days of discharge. 2. Continue prednisone 40 mg for 5 days 3. Return the emergency department symptoms worsen ITEMS TO FOLLOWUP ON ON OUTPATIENT: 1. Asthma exacerbation resolution. DISCHARGE CONDITION: Stable. TIME SPENT ON DISCHARGE: 38 minutes. Vital Signs/I&Os Vital Signs Date Time Temp Pulse Resp B/P (MAP) Pulse Ox O2 Delivery O2 Flow Rate FiO2 10/05/21 14:00 97.7 104 19 144/97 (113) 96 Room Air I&O- Last 24 Hours up to 6 AM 10/05/21 06:00 Intake Total 560 ml Balance 560 ml Laboratory Data Labs 24H Laboratory Tests 2 10/04/21 21:46: Magnesium Level 1.8 10/05/21 07:35: Magnesium Level 2.0, Nucleated Red Blood Cells % (auto) 0.1H, Anion Gap 6L, Glomerular Filtration Rate > 60.0, Calcium Level 9.4, Procalcitonin 0.06 10/05/21 12:50: Lab Scanned Report Miscellaneous Lab CBC/BMP Laboratory Tests 10/05/21 07:35 Microbiology Microbiology 10/04/21 Respiratory Virus Panel (PCR) (SADA) - Final, Complete 10/04/21 Blood Culture - Preliminary, Resulted No growth after 24 hours . All specim... 10/04/21 Blood Culture - Preliminary, Resulted No growth after 24 hours . All specim... Discharge Medications Scheduled Apixaban (Eliquis) 5 Mg Tablet, 5 MG PO BID, (Reported) Belimumab (Benlysta) 200 Mg/1 Ml Auto.injct, 200 MG SC QWEEK, (Reported) MONDAYS Cetirizine HCl (Cetirizine HCl) 10 Mg Tablet, 10 MG PO DAILY, (Reported) Clonazepam (Clonazepam) 1 Mg Tablet, 1 MG PO TID, (Reported) Ergocalciferol (Vitamin D2) (Drisdol) 1,250 Mcg Capsule, 1,250 MCG PO QWEEK, (Reported) SUNDAYS Ferrous Sulfate (Ferrous Sulfate) 325 Mg Tablet, 325 MG PO DAILY, (Reported) Fluoxetine Hcl (Fluoxetine HCl) 40 Mg Capsule, 80 MG PO QHS, (Reported) Fremanezumab-Vfrm ([employer]ovy Autoinjector) 225 Mg/1.5 Ml Auto.injct, 225 MG SQ Q3M, (Reported) Hydrochlorothiazide (Hydrochlorothiazide) 12.5 Mg Capsule, 12.5 MG PO DAILY, (Reported) Hydrocodone/Acetaminophen (Hydrocodone-Acetamin 5-325 mg) 1 Each Tablet, 1 TAB PO BID, (Reported) Lamotrigine (Lamotrigine) 150 Mg Tablet, 150 MG PO DAILY, (Reported) Lamotrigine (Lamotrigine) 100 Mg Tablet, 100 MG PO QHS, (Reported) Nifedipine (Nifedipine ER) 30 Mg Tablet.er, 30 MG PO DAILY, (Reported) Onabotulinumtoxina (Botox) 200 Unit Vial, 200 UNIT INJ ASDIRECTED, (Reported) FOR MIGRAINES, NEXT DOSE DUE 10/17/21 Prednisone (Prednisone) 20 Mg Tablet, 40 MG PO DAILY Pregabalin (Pregabalin) 75 Mg Capsule, 75 MG PO QHS, (Reported) Quetiapine Fumarate (Quetiapine Fumarate) 300 Mg Tablet, 300 MG PO QHS, (Reported) Quetiapine Fumarate (Quetiapine Fumarate) 50 Mg Tablet, 50 MG PO BID, (Reported) TAKE QAM AND AT NOON Zolpidem Tartrate (Zolpidem Tartrate) 10 Mg Tablet, 10 MG PO QHS, (Reported) Scheduled PRN Albuterol Sulfate (Proair Hfa) 8.5 Gm Hfa.aer.ad, 2 PUFF INH Q4H PRN for SHORTNESS OF BREATH, (Reported) Albuterol Sulfate (Albuterol Sulfate) 1.25 Mg/3 Ml Vial.neb, 1.25 MG INH Q4H PRN for SHORTNESS OF BREATH, (Reported) Butalb/Acetaminophen/Caffeine (Urygcc-Ogtqhlzw-Smny 50-325-40) 1 Each Tablet, 1 TAB PO Q4H PRN for MIGRAINE, (Reported) Docusate Sodium (Colace) 100 Mg Capsule, 100 MG PO TID PRN for CONSTIPATION, (Reported) Epinephrine (Epipen 2-Gunner) 0.3 Mg/0.3 Ml Auto.injct, 0.3 MG IM ASDIRECTED PRN for ANAPHYLAXIS, (Reported) Allergies Coded Allergies: Kiwi (Verified Allergy, Severe, anaphylaxis, 10/02/21) avocado (Verified Allergy, Severe, anaphylaxis, 10/02/21) banana (Verified Allergy, Severe, anaphylaxis, 10/02/21) hydroxychloroquine (Verified Allergy, Severe, anaphylaxis, 10/02/21) latex (Verified Allergy, Mild, rash, 10/02/21) enoxaparin (Verified Adverse Reaction, Intermediate, LOWERS SEIZURE THRESHOLD, 10/02/21) ketorolac (Verified Adverse Reaction, Intermediate, seizures, 10/02/21) methocarbamol (Verified Adverse Reaction, Intermediate, seizures, 10/02/21) famotidine (Verified Adverse Reaction, Mild, vomiting, 10/02/21) promethazine (Verified Adverse Reaction, Mild, vomiting, 10/02/21) LON AMOR DO Oct 05, 2021 16:42
--- NOTE | 2021-10-05 16:44 | ECGEPIP ---
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
== END 2021-10-05 16:18 | disposition home or self-care (01) | DRG 141 ==
LOC: M ED 21:41 → M ED INP 10-04 09:47 → ENRESERV 10-04 12:15 → M MSPAV 10-04 14:29
PROVIDERS: ADMIT Family Medicine; ATTEND Family Medicine
DX: J45.901 Unspecified asthma with (acute) exacerbation (principal); M32.9 Systemic lupus erythematosus, unspecified; I10 Essential (primary) hypertension; F41.9 Anxiety disorder, unspecified; E66.9 Obesity, unspecified; Z86.718 Personal history of other venous thrombosis and embolism; Z79.01 Long term (current) use of anticoagulants; Z79.899 Other long term (current) drug therapy; Z91.040 Latex allergy status; Z88.8 Allergy status to other drugs, medicaments and biological substances; Z88.1 Allergy status to other antibiotic agents; Z91.018 Allergy to other foods; Z87.820 Personal history of traumatic brain injury; G40.909 Epilepsy, unspecified, not intractable, without status epilepticus; Z90.49 Acquired absence of other specified parts of digestive tract

== ENCOUNTER 2021-10-06 22:25 | Inpatient (IN) | payer OTHER ==
[~2021-10-06] VITALS: Ht 162.6 cm; Wt 121.6 kg
[~2021-10-06 22:25] MED LIST changes: +BOTO200I INJ; +COLA100C5 PO; +DRIS50003 PO; +FERR1TAB8 PO; +FREM225A SQ
[2021-10-07 00:57] LABS: BASO # 0.1 10^3/uL (0.0-0.2); BASO % 0.3 % (0.0-1.0); EOS % 0.2 % (0.0-3.0); HEMATOCRIT 38.8 % (36.0-47.0); LYMPH # 1.8 10^3/uL (1.5-5.0); LYMPH % 9.5 % (24.0-44.0); MEAN CORPUSCULAR HEMOGLOBIN 23.1 pg (27.0-33.0); MEAN CORPUSCULAR HGB CONC 30.4 g/dl (32.0-36.5); MEAN CORPUSCULAR VOLUME 76.1 fl (80.0-96.0); MONO # 0.3 10^3/uL (0.0-0.8); MONO % 1.8 % (2.0-8.0); NEUTROPHILS % 86.4 % (36.0-66.0); PLATELET COUNT, AUTOMATED 558 10^3/uL (150-450); WHITE BLOOD COUNT 18.6 10^3/uL (4.0-10.0)
[2021-10-07 01:03] LABS: ABG BASE EXCESS 3.4 (-2.0-2.0); ABG HCO3 27.3 MEQ/L (22.0-26.0); ABG O2 SATURATION 97.7 % (95.0-99.0); ABG PARTIAL PRESSURE CO2 38.6 mmHg (35.0-45.0); ABG PARTIAL PRESSURE O2 92.4 mmHg (75.0-100.0); ABG STANDARD HCO3 27.5 MEQ/L (22.0-26.0); ABG TOTAL CO2 28.5 MEQ/L (22.0-29.0); ABG pH (ARTERIAL) 7.467 UNITS (7.350-7.450)
[2021-10-07 01:16] LABS: HEMOGLOBIN 11.8 g/dl (12.0-15.5)
[2021-10-07 01:26] LABS: HCG, SERUM QUALITATIVE NEGATIVE (NEGATIVE)
[2021-10-07 01:29] LABS: ALT/SGPT 24 U/L (12-78); BILIRUBIN,DIRECT < 0.1 MG/DL (0.0-0.2); BILIRUBIN,TOTAL 0.1 MG/DL (0.2-1.0); BLOOD UREA NITROGEN 10 MG/DL (7-18); CALCIUM LEVEL 9.9 MG/DL (8.5-10.1); CARBON DIOXIDE LEVEL 28 MEQ/L (21-32); CHLORIDE LEVEL 101 MEQ/L (98-107); CREATININE FOR GFR 0.72 MG/DL (0.55-1.30); GLOMERULAR FILTRATION RATE > 60.0 (>60); GLUCOSE, FASTING 127 MG/DL (70-100); NT-PRO BNP 197 PG/ML (<125); SODIUM LEVEL 137 MEQ/L (136-145); TOTAL PROTEIN 8.1 GM/DL (6.4-8.2)
[2021-10-07] MEDS ORDERED: methylPREDNISolone 125MG 2ML VIAL IV ONE (02:30)
--- NOTE | 2021-10-07 02:39 | REPVR ---
PROCEDURE INFORMATION: Exam: XR Chest Exam date and time: 10/07/2021 12:38 AM Age: 31 years old Clinical indication: Cough and dyspnea; Additional info: Dyspnea/cough TECHNIQUE: Imaging protocol: XR of the chest. Views: 1 view. COMPARISON: 1. CR Chest, 1 view 2021-10-04 07:[address] ANGIO CHEST 2021-10-04 08:25 3. CR PORTABLE CHEST X-RAY 2021-07-07 01:41 4. CR PORTABLE CHEST X-RAY 2021-02-22 20:35 FINDINGS: Lungs: Unremarkable. No consolidation. Pleural spaces: Unremarkable. No pleural effusion. No pneumothorax. Heart/Mediastinum: Unremarkable. No cardiomegaly. Bones/joints: Unremarkable. IMPRESSION: No acute findings. Electronically signed by: Rajan Owusu On 10/07/2021 02:38:24 AM
[2021-10-07] MEDS ORDERED: ACETAMINOPHEN TAB 650MG DOSE (2X325MG) PO PRN (03:35)
[2021-10-07] MEDS ORDERED: PRED20TA PO (03:58)
[2021-10-07] MEDS ORDERED: IPRA0.00 INH (03:58)
[2021-10-07] MEDS ORDERED: HOME MED LIST COMPLETE! XX SCH (04:00)
[2021-10-07] MEDS ORDERED: ALBUTEROL 90 MCG/ACT 8GM HFA INHALER INH PRN (04:10)
[2021-10-07] MEDS ORDERED: IPRATROPIUM 0.5MG/ALBUTEROL 2.5MG INH SOL UD 3ML (DUONEB) INH PRN (04:10)
[2021-10-07] MEDS ORDERED: DOCUSATE SODIUM 100MG CAPSULE PO PRN (04:10)
[2021-10-07] MEDS ORDERED: EPINEPHrine INJ 1 MG/ML 1ML AMP INJ PRN (04:10)
[2021-10-07] MEDS ORDERED: ALBUTEROL SULFATE 2.5 MG/0.5 ML INH NEB SOLN INH PRN (04:10)
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
[2021-10-07] MEDS ORDERED: FIORICET TAB PO PRN (04:40)
[2021-10-07] MEDS ORDERED: ENTER DRUG NAME HERE (PATIENT'S OWN MED) SQ SCH (04:40)
--- NOTE | 2021-10-07 04:44 | REPVR ---
PROCEDURE INFORMATION: Exam: US Duplex Lower Extremity Veins, Bilateral Exam date and time: 10/07/2021 4:31 AM Age: 31 years old Clinical indication: Pain; Edema, localized; Lower extremity, bilateral; Leg, lower; Additional info: Edema in setting of lupus TECHNIQUE: Imaging protocol: Real-time duplex ultrasound of the extremities with 2-D gonzalez scale, color Doppler flow and spectral waveform analysis with image documentation. Complete exam focused on the bilateral lower extremity veins. COMPARISON: 1. US Duplex, Ext LOWER veins, bilat 2020-01-16 21:41 2. US PELVIC NON-OB COMPLETE 2021-08-31 14:21 FINDINGS: Right deep veins: Unremarkable. The common femoral, femoral, proximal profunda femoral and popliteal veins are patent without thrombus. Normal Doppler waveforms. Normal compressibility and/or augmentation response. Right superficial veins: Saphenofemoral junction is patent without thrombus. Left deep veins: Unremarkable. The common femoral, femoral, proximal profunda femoral and popliteal veins are patent without thrombus. Normal Doppler waveforms. Normal compressibility and/or augmentation response. Left superficial veins: Saphenofemoral junction is patent without thrombus. Soft tissues: Edema the lower extremity bilaterally. The bilateral calf veins are difficult to visualize given the edema. IMPRESSION: No evidence of deep vein thrombosis. Electronically signed by: Rajan Owusu On 10/07/2021 04:43:22 AM
[2021-10-07] MEDS ORDERED: NS 1,000 ML IV SCH ×2 (04:50→20:05)
[2021-10-07] MEDS ORDERED: fentaNYL 100 MCG/2 ML INJECTION (J3010) IV ONE (04:50)
[2021-10-07] MEDS ORDERED: LORazepam 2 MG/ML VIAL IV PRN (05:05)
[2021-10-07] MEDS ORDERED: FUROSEMIDE 40MG/4ML VIAL (J1940) IV ONE (05:05)
[2021-10-07] MEDS ORDERED: PILL CUTTER 1 EACH XX PRN (06:00)
[2021-10-07 06:59] LABS: BASO % 0.2 % (0.0-1.0); EOS % 0.1 % (0.0-3.0); HEMATOCRIT 36.3 % (36.0-47.0); HEMOGLOBIN 11.1 g/dl (12.0-15.5); LYMPH % 6.5 % (24.0-44.0); MEAN CORPUSCULAR HEMOGLOBIN 23.2 pg (27.0-33.0); MEAN CORPUSCULAR HGB CONC 30.6 g/dl (32.0-36.5); MEAN CORPUSCULAR VOLUME 75.8 fl (80.0-96.0); MONO # 0.1 10^3/uL (0.0-0.8); MONO % 0.5 % (2.0-8.0); NEUTROPHILS # 14.3 10^3/uL (1.5-8.5); NEUTROPHILS % 91.7 % (36.0-66.0); PLATELET COUNT, AUTOMATED 531 10^3/uL (150-450); RED BLOOD COUNT 4.79 10^6/uL (4.00-5.40); WHITE BLOOD COUNT 15.6 10^3/uL (4.0-10.0)
[2021-10-07 07:18] LABS: BLOOD UREA NITROGEN 9 MG/DL (7-18); C REACTIVE PROTEIN QUANTITATIV 2.92 MG/DL (0.00-0.30); CALCIUM LEVEL 9.1 MG/DL (8.5-10.1); CARBON DIOXIDE LEVEL 29 MEQ/L (21-32); CHLORIDE LEVEL 100 MEQ/L (98-107); COMPLEMENT C3 205 MG/DL (90-180); COMPLEMENT C4 49 MG/DL (10-40); CREATININE FOR GFR 0.82 MG/DL (0.55-1.30); GLOMERULAR FILTRATION RATE > 60.0 (>60); GLUCOSE, FASTING 154 MG/DL (70-100); POTASSIUM SERUM 3.5 MEQ/L (3.5-5.1); SODIUM LEVEL 138 MEQ/L (136-145)
[2021-10-07 07:22] LABS: ERYTHROCYTE SEDIMENTATION RATE 42 mm/hr (0-20)
[2021-10-07] MEDS: QUEtiapine FUMARATE 50MG TAB PO SCH ×2 (08:22→15:07)
[2021-10-07] MEDS: hydroCHLOROthiazide 12.5 MG CAPSULE PO SCH (08:23)
[2021-10-07] MEDS: clonazePAM 1 MG TAB PO SCH ×3 (08:23→20:31)
[2021-10-07] MEDS: APIXABAN 5 MG TAB (ELIQUIS) PO SCH ×2 (08:23→20:31)
[2021-10-07] MEDS: CETIRIZINE (ZyrTEC) 10 MG TAB PO SCH (08:23)
[2021-10-07] MEDS: lamoTRIgine 100MG TAB PO SCH (08:23)
[2021-10-07] MEDS: FERROUS SULFATE 325MG TAB PO SCH (08:23)
[2021-10-07] MEDS: NORCO, ANEXSIA 5/325MG TABLET (HYDROcodone/ACETAMINOPHEN) PO SCH ×2 (08:24→20:32)
[2021-10-07] MEDS ORDERED: predniSONE 20 MG TAB PO SCH (09:00)
[2021-10-07 09:04] LABS: PROLACTIN 5.1 NG/ML
--- NOTE | 2021-10-07 09:20 | ECGEPIP ---
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
--- NOTE | 2021-10-07 09:52 | REP ---
INDICATION: Reported seizure and head concussion COMPARISON: 04/02/2021 TECHNIQUE: Axial noncontrast images from the skull base to the vertex with coronal reformations. This CT examination was performed using the following dose reduction techniques: Automated exposure control, adjustment of mA and/or kv according to the patient's size, and use of iterative reconstruction technique. FINDINGS: The ventricles, sulci, and cisterns are normal in position and appearance. Sinha-white differentiation is maintained. No acute intracranial hemorrhage, mass/mass effect, pathology or trauma/injury. No evidence for acute infarction. No extra-axial fluid collection. Calvarium is intact. Paranasal sinuses and mastoid air cells are clear. IMPRESSION: Normal noncontrast head CT. No evidence for acute intracranial pathology or trauma/injury. <Electronically signed by Hossein Ingram > 10/07/21 [id number]
[2021-10-07 14:30] VITALS: BP 140/92
[2021-10-07] MEDS ORDERED: predniSONE 20 MG TAB PO ONE (14:35)
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
[2021-10-07] MEDS: NIFEdipine 30 MG XL TAB PO SCH (16:08)
[2021-10-07 19:38] LABS: HEPATITIS B CORE ANTIBODY IGM NEGATIVE (NEGATIVE); HEPATITIS B SURFACE ANTIBODY POSITIVE (POSITIVE); HEPATITIS B SURFACE ANTIGEN NEGATIVE (NEGATIVE); HIV 1&2 SCREEN CENTAUR NEGATIVE (NEGATIVE)
[2021-10-07 20:19] VITALS: BP 157/106
[2021-10-07] MEDS ORDERED: lamoTRIgine 100MG TAB PO SCH (21:00)
[2021-10-07] MEDS ORDERED: zolPIDEM TARTRATE 5 MG TAB PO SCH (21:00)
[2021-10-07] MEDS ORDERED: PREGABALIN 75 MG CAP(LYRICA) PO SCH (21:00)
[2021-10-07] MEDS ORDERED: QUEtiapine FUMARATE 100 MG TAB PO SCH (21:00)
[2021-10-07] MEDS ORDERED: FLUoxetine 20 MG CAP PO SCH (21:00)
[2021-10-07 22:20] VITALS: O2SAT 94
[2021-10-08 02:46] LABS: GC DNA AMPLIFICATION NEGATIVE (NEGATIVE)
[2021-10-08 05:45] VITALS: BP 154/94
[2021-10-08 06:51] LABS: BASO % 0.2 % (0.0-1.0); EOS % 0.1 % (0.0-3.0); HEMATOCRIT 34.2 % (36.0-47.0); HEMOGLOBIN 10.2 g/dl (12.0-15.5); LYMPH # 2.4 10^3/uL (1.5-5.0); LYMPH % 11.9 % (24.0-44.0); MEAN CORPUSCULAR HEMOGLOBIN 23.1 pg (27.0-33.0); MEAN CORPUSCULAR HGB CONC 29.8 g/dl (32.0-36.5); MEAN CORPUSCULAR VOLUME 77.4 fl (80.0-96.0); MONO # 1.4 10^3/uL (0.0-0.8); MONO % 7.3 % (2.0-8.0); NEUTROPHILS # 15.7 10^3/uL (1.5-8.5); PLATELET COUNT, AUTOMATED 499 10^3/uL (150-450); RED BLOOD COUNT 4.42 10^6/uL (4.00-5.40); WHITE BLOOD COUNT 19.8 10^3/uL (4.0-10.0)
[2021-10-08 07:04] LABS: BLOOD UREA NITROGEN 28 MG/DL (7-18); CALCIUM LEVEL 9.3 MG/DL (8.5-10.1); CARBON DIOXIDE LEVEL 31 MEQ/L (21-32); CHLORIDE LEVEL 104 MEQ/L (98-107); CREATININE FOR GFR 0.94 MG/DL (0.55-1.30); GLOMERULAR FILTRATION RATE > 60.0 (>60); GLUCOSE, FASTING 98 MG/DL (70-100); POTASSIUM SERUM 3.8 MEQ/L (3.5-5.1); SODIUM LEVEL 142 MEQ/L (136-145)
[2021-10-08 09:00] VITALS: BP 154/94
[2021-10-08] MEDS: NORCO, ANEXSIA 5/325MG TABLET (HYDROcodone/ACETAMINOPHEN) PO SCH (09:00)
[2021-10-08] MEDS: APIXABAN 5 MG TAB (ELIQUIS) PO SCH (09:00)
[2021-10-08] MEDS: NIFEdipine 30 MG XL TAB PO SCH (09:00)
[2021-10-08] MEDS ORDERED: methylPREDNISolone 1,000 MG, VIAL MATE ADAPTER 1 EACH in NS 250 ML IV SCH (09:00)
[2021-10-08] MEDS: QUEtiapine FUMARATE 50MG TAB PO SCH ×2 (09:01→12:27)
[2021-10-08] MEDS: FERROUS SULFATE 325MG TAB PO SCH (09:01)
[2021-10-08] MEDS: clonazePAM 1 MG TAB PO SCH (09:01)
[2021-10-08] MEDS: CETIRIZINE (ZyrTEC) 10 MG TAB PO SCH (09:01)
[2021-10-08] MEDS: hydroCHLOROthiazide 12.5 MG CAPSULE PO SCH (09:01)
[2021-10-08] MEDS: lamoTRIgine 100MG TAB PO SCH (09:01)
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
--- NOTE | 2021-10-08 15:44 | DS.PDOC ---
Discharge Summary General Date of Admission Oct 07, 2021 at 03:43 Date of Discharge 10/08/2021 Discharge Summary PROCEDURES PERFORMED DURING STAY: [None]. ADMITTING DIAGNOSES: 1. . DISCHARGE DIAGNOSES: 1. . COMPLICATIONS/CHIEF COMPLAINT: Sle Exacerbation. HISTORY OF PRESENT ILLNESS: . HOSPITAL COURSE: . DISCHARGE MEDICATIONS: Please see below. ALLERGIES: Please see below. PHYSICAL EXAMINATION ON DISCHARGE: VITAL SIGNS: Please see below. GENERAL: HEENT: NECK: CARDIOVASCULAR EXAMINATION: RESPIRATORY EXAMINATION: ABDOMINAL EXAMINATION: EXTREMITIES: SKIN: NEUROLOGICAL EXAMINATION: PSYCHIATRIC EXAMINATION: LABORATORY DATA: Please see below. IMAGING: PROGNOSIS: ACTIVITY: [As tolerated]. DIET: DISCHARGE PLAN: DISPOSITION: . DISCHARGE INSTRUCTIONS: 1. . ITEMS TO FOLLOWUP ON ON OUTPATIENT: 1. . DISCHARGE CONDITION: [Stable]. TIME SPENT ON DISCHARGE: minutes. Vital Signs/I&Os Vital Signs Date Time Temp Pulse Resp B/P (MAP) Pulse Ox O2 Delivery O2 Flow Rate FiO2 10/08/21 09:30 16 10/08/21 09:00 154/94 10/08/21 05:45 98.6 84 95 10/07/21 22:20 Room Air I&O- Last 24 Hours up to 6 AM 10/08/21 05:59 Intake Total 1880 ml Output Total 0 ml Balance 1880 ml Laboratory Data Labs 24H Laboratory Tests 2 10/07/21 18:03: Syphilis Serology NONREACTIVE, Hepatitis B Surface Antigen NEGATIVE, Hepatitis B Surface Antibody POSITIVE, Hepatitis B Core IgM Antibody NEGATIVE, HIV Antigen/Antibody Combo Qual NEGATIVE 10/07/21 18:53: Urine Color YELLOW, Urine Appearance HAZY, Urine pH 5.0, Urine Specific [place] 1.032, Urine Protein 1+H, Urine Glucose (UA) NEGATIVE, Urine Ketones TRACEH, Urine Blood NEGATIVE, Urine Nitrite NEGATIVE, Urine Bilirubin NEGATIVE, Urine Urobilinogen 2.0H, Urine Leukocyte Esterase NEGATIVE, Urine WBC (Auto) 3, Urine RBC (Auto) 2, Urine Hyaline Casts (Auto) 10, Urine Bacteria (Auto) NEGATIVE, Urine Squamous Epithelial Cells 4, Urine Mucus (Auto) MODERATE, Urine Sperm (Auto) 10/07/21 18:54: Chlamydia trachomatis DNA (PATIENCE) NEGATIVE, Neisseria gonorrhoeae DNA (PATIENCE) NEGATIVE, Trichomonas vaginalis (PCR) NOT DETECTED 10/08/21 05:58: Immature Granulocyte % (Auto) 1.5, Neutrophils (%) (Auto) 79.0H, Lymphocytes (%) (Auto) 11.9L, Monocytes (%) (Auto) 7.3, Eosinophils (%) (Auto) 0.1, Basophils (%) (Auto) 0.2, Neutrophils # (Auto) 15.7H, Lymphocytes # (Auto) 2.4, Monocytes # (Auto) 1.4H, Eosinophils # (Auto) 0.0, Basophils # (Auto) 0.0, Nucleated Red Blood Cells % (auto) 0.2H, Anion Gap 7L, Glomerular Filtration Rate > 60.0, Calcium Level 9.3 CBC/BMP Laboratory Tests 10/08/21 05:58 Microbiology Microbiology 10/07/21 Respiratory Virus Panel (PCR) ([facility]) - Final, Complete Discharge Medications Scheduled Apixaban (Eliquis) 5 Mg Tablet, 5 MG PO BID, (Reported) Belimumab (Benlysta) 200 Mg/1 Ml Auto.injct, 200 MG SC QWEEK, (Reported) MONDAYS Cetirizine HCl (Cetirizine HCl) 10 Mg Tablet, 10 MG PO DAILY, (Reported) Clonazepam (Clonazepam) 1 Mg Tablet, 1 MG PO TID, (Reported) Ergocalciferol (Vitamin D2) (Drisdol) 1,250 Mcg Capsule, 1,250 MCG PO QWEEK, (Re ported) SUNDAYS Ferrous Sulfate (Ferrous Sulfate) 325 Mg Tablet, 325 MG PO DAILY, (Reported) Fluoxetine Hcl (Fluoxetine HCl) 40 Mg Capsule, 80 MG PO QHS, (Reported) Fremanezumab-Vfrm (Ajovy Autoinjector) 225 Mg/1.5 Ml Auto.injct, 225 MG SQ Q3M, (Reported) Hydrochlorothiazide (Hydrochlorothiazide) 12.5 Mg Capsule, 12.5 MG PO DAILY, (Reported) Hydrocodone/Acetaminophen (Hydrocodone-Acetamin 5-325 mg) 1 Each Tablet, 1 TAB PO BID, (Reported) Lamotrigine (Lamotrigine) 150 Mg Tablet, 150 MG PO DAILY, (Reported) Lamotrigine (Lamotrigine) 100 Mg Tablet, 100 MG PO QHS, (Reported) Nifedipine (Nifedipine ER) 30 Mg Tablet.er, 30 MG PO DAILY, (Reported) Prednisone (Prednisone) 20 Mg Tablet, 20 MG PO TAPER, (Reported) 60MG FOR 2 DAYS, 40MG FOR 4 DAYS, 20MG FOR 3 DAYS: LAST DOSE WAS FIRST DOSE OF 60MG Pregabalin (Pregabalin) 75 Mg Capsule, 75 MG PO QHS, (Reported) Quetiapine Fumarate (Quetiapine Fumarate) 300 Mg Tablet, 300 MG PO QHS, (Repor jina) Quetiapine Fumarate (Quetiapine Fumarate) 50 Mg Tablet, 50 MG PO BID, (Reported) TAKE QAM AND AT NOON Zolpidem Tartrate (Zolpidem Tartrate) 10 Mg Tablet, 10 MG PO QHS, (Reported) Scheduled PRN Albuterol Sulfate (Proair Hfa) 8.5 Gm Hfa.aer.ad, 2 PUFF INH Q4H PRN for SHORTNESS OF BREATH, (Reported) Albuterol Sulfate (Albuterol Sulfate) 1.25 Mg/3 Ml Vial.neb, 1.25 MG INH QID PRN for SHORTNESS OF BREATH, (Reported) Butalb/Acetaminophen/Caffeine (Nmxowb-Yeneztok-Uqqp 50-325-40) 1 Each Tablet, 1 TAB PO TID PRN for MIGRAINE, (Reported) Docusate Sodium (Colace) 100 Mg Capsule, 100 MG PO TID PRN for CONSTIPATION, (Reported) Epinephrine (Epipen 2-Gunner) 0.3 Mg/0.3 Ml Auto.injct, 0.3 MG IM ASDIRECTED PRN for ANAPHYLAXIS, (Reported) Ipratropium/Albuterol Sulfate (Iprat-Albut 0.5-3(2.5) mg/3 ml) 3 Ml Ampul.neb, 3 ML INH QID PRN for SHORTNESS OF BREATH, (Reported) Allergies Coded Allergies: Kiwi (Verified Allergy, Severe, anaphylaxis, 10/02/21) Pork (Verified Allergy, Severe, LOWERS SEIZURE THRESHOLD, 10/07/21) avocado (Verified Allergy, Severe, anaphylaxis, 10/02/21) banana (Verified Allergy, Severe, anaphylaxis, 10/02/21) hydroxychloroquine (Verified Allergy, Severe, anaphylaxis, 10/02/21) latex (Verified Allergy, Mild, rash, 10/02/21) enoxaparin (Verified Adverse Reaction, Intermediate, LOWERS SEIZURE THRESHOLD, 10/02/21) ketorolac (Verified Adverse Reaction, Intermediate, seizures, 10/02/21) methocarbamol (Verified Adverse Reaction, Intermediate, seizures, 10/02/21) famotidine (Verified Adverse Reaction, Mild, vomiting, 10/02/21) promethazine (Verified Adverse Reaction, Mild, vomiting, 10/02/21) WAI CARLOS DO Oct 08, 2021 14:04
[2021-10-09] MEDS ORDERED: VITAMIN D 50,000 UNITS CAPSULE (ERGOCALCIFEROL 1.25MG) PO SCH (09:00)
[2021-10-10] MEDS ORDERED: ENTER DRUG NAME HERE (PATIENT'S OWN MED) SC SCH (09:00)
[2021-10-10 12:10] LABS: ANTI DS-DNA AB Negative (Negative)
== END 2021-10-08 13:30 | disposition home or self-care (01) | DRG 425 ==
LOC: M ED 22:25 → M ED INP 10-07 03:43 → ENRESERV 10-07 09:44 → M MS5PR 10-07 14:33
PROVIDERS: ADMIT Internal Medicine; ATTEND Internal Medicine
DX: E87.70 Fluid overload, unspecified (principal); M32.9 Systemic lupus erythematosus, unspecified; G40.909 Epilepsy, unspecified, not intractable, without status epilepticus; D50.9 Iron deficiency anemia, unspecified; Z86.718 Personal history of other venous thrombosis and embolism; I10 Essential (primary) hypertension; D72.829 Elevated white blood cell count, unspecified; G43.909 Migraine, unspecified, not intractable, without status migrainosus; K59.00 Constipation, unspecified; F41.9 Anxiety disorder, unspecified; F32.A Depression, unspecified; E55.9 Vitamin D deficiency, unspecified; M54.50 Low back pain, unspecified; Z79.01 Long term (current) use of anticoagulants; Z79.899 Other long term (current) drug therapy; Z88.1 Allergy status to other antibiotic agents; Z88.8 Allergy status to other drugs, medicaments and biological substances; Z91.040 Latex allergy status; Z91.018 Allergy to other foods

== ENCOUNTER → 2021-10-12 | Outpatient (CLI) | payer OTHER ==
[~2021-10-12] MED LIST changes: +AJOV225I SC; +QUET400T2 PO; +SENN-80 PO
== END ==
LOC: M LABSMTC 10:41
PROVIDERS: ATTEND Anesthesiology
DX: Z01.818 Encounter for other preprocedural examination (principal); Z11.52 Encounter for screening for COVID-19

== ENCOUNTER → 2021-10-17 | Outpatient (CLI) | payer OTHER ==
[~2021-10-17] MED LIST changes: +BOTOX THERAPEUTIC 100 UNIT VIAL (J0585 PER 1 UNIT) IM ONE; +ONDANSETRON 4 MG ORAL DISINTEGRATING TAB As Ordered ONE; -QUET400T2 PO; -SENN-80 PO; +diazePAM 5MG TABLET As Ordered ONE; +diphenhydrAMINE 25MG CAP As Ordered ONE; +oxyCODONE 5MG TAB As Ordered ONE
== END ==
LOC: M PAIN 10:40
PROVIDERS: ATTEND Anesthesiology
DX: G43.709 Chronic migraine without aura, not intractable, without status migrainosus (principal); L93.0 Discoid lupus erythematosus; I10 Essential (primary) hypertension; G40.909 Epilepsy, unspecified, not intractable, without status epilepticus; M51.26 Other intervertebral disc displacement, lumbar region; E66.01 Morbid (severe) obesity due to excess calories; I27.20 Pulmonary hypertension, unspecified; F32.A Depression, unspecified; F41.9 Anxiety disorder, unspecified; J45.909 Unspecified asthma, uncomplicated; M79.7 Fibromyalgia; Z68.42 Body mass index [BMI] 45.0-49.9, adult; Z88.5 Allergy status to narcotic agent; Z88.8 Allergy status to other drugs, medicaments and biological substances; Z91.040 Latex allergy status; Z91.018 Allergy to other foods; Z79.891 Long term (current) use of opiate analgesic; Z79.899 Other long term (current) drug therapy; Z79.01 Long term (current) use of anticoagulants; Z86.718 Personal history of other venous thrombosis and embolism
CPT/HCPCS: 64615; J0585; Q0162

== ENCOUNTER → 2021-10-26 | Outpatient (CLI) | payer OTHER ==
[~2021-10-26] MED LIST changes: -BOTOX THERAPEUTIC 100 UNIT VIAL (J0585 PER 1 UNIT) IM ONE; -ONDANSETRON 4 MG ORAL DISINTEGRATING TAB As Ordered ONE; -diazePAM 5MG TABLET As Ordered ONE; -diphenhydrAMINE 25MG CAP As Ordered ONE; -oxyCODONE 5MG TAB As Ordered ONE
== END ==
LOC: M LABSMTC 10:28
PROVIDERS: ATTEND Anesthesiology
DX: Z01.818 Encounter for other preprocedural examination (principal); Z11.52 Encounter for screening for COVID-19

== ENCOUNTER 2021-10-31 07:48 | Day surgery (SDC) | payer OTHER ==
[2021-10-31] VITALS (8 sets, daily range): BP systolic 127–140; BP diastolic 74–102
[~2021-10-31] VITALS: Ht 162.6 cm; Wt 121.6 kg
[~2021-10-31 07:48] MED LIST changes: +LR 1,000 ML IV ONE; +ceFAZolin SOD 2 GM in IV 1 EA IV ONE
[2021-10-31 08:44] LABS: HEMATOCRIT 36.4 % (36.0-47.0); HEMOGLOBIN 11.1 g/dl (12.0-15.5); MEAN CORPUSCULAR HEMOGLOBIN 23.2 pg (27.0-33.0); MEAN CORPUSCULAR HGB CONC 30.5 g/dl (32.0-36.5); MEAN CORPUSCULAR VOLUME 76.2 fl (80.0-96.0); PLATELET COUNT, AUTOMATED 488 10^3/uL (150-450); RED BLOOD COUNT 4.78 10^6/uL (4.00-5.40); WHITE BLOOD COUNT 13.2 10^3/uL (4.0-10.0)
[2021-10-31] MEDS ORDERED: BUPIVACAINE HCL 0.25% 30ML VIAL As Ordered ONE (08:44)
[2021-10-31] MEDS: NIFEdipine 30 MG XL TAB PO SCH (09:00)
[2021-10-31] MEDS ORDERED: SUGAMMADEX SODIUM 500 MG/5 ML VIAL (BRIDION) As Ordered ONE (10:06)
[2021-10-31] MEDS ORDERED: METOCLOPRAMIDE INJ 10MG/2ML VIAL (J2765 PER 1) As Ordered ONE (10:06)
[2021-10-31] MEDS ORDERED: ONDANSETRON 4MG/2ML VIAL As Ordered ONE (10:06)
[2021-10-31] MEDS ORDERED: MIDAZOLAM INJ 2MG/2ML VIAL (J2250 PER 1MG) As Ordered ONE (10:06)
[2021-10-31] MEDS ORDERED: ROCURONIUM BROMIDE 50 MG/5 ML VIAL As Ordered ONE (10:06)
[2021-10-31] MEDS ORDERED: fentaNYL 250 MCG/5 ML INJECTION (J3010) As Ordered ONE (10:06)
[2021-10-31] MEDS ORDERED: propofoL 200 MG/20 ML VIAL As Ordered ONE (10:06)
[2021-10-31] MEDS ORDERED: HYDROmorphone HCL 2 MG/ML 1ML VIAL As Ordered ONE (10:06)
[2021-10-31] MEDS ORDERED: LIDOCAINE 2% 100MG/5ML SDV (FOR ANES.) As Ordered ONE (10:06)
[2021-10-31] MEDS ORDERED: dexameTHASONE 4 MG/ML 1ML VIAL (J1100 PER 1MG) As Ordered ONE (10:06)
[2021-10-31] MEDS ORDERED: ACETAMINOPHEN 1000MG 100ML IV BTL (OFIRMEV) (J0131 PER 10MG) As Ordered ONE (10:36)
[2021-10-31] MEDS ORDERED: ceFAZolin 2 GM/D5W 50 ML IV BAG (J0690 PER 500MG) As Ordered ONE (10:36)
--- NOTE | 2021-10-31 10:40 | ROOPDOC ---
[facility] Report Of Operation Report of Operation DATE OF PROCEDURE: 10/31/21 PREPROCEDURE DIAGNOSES: 1. Abnormal uterine bleeding. POSTPROCEDURE DIAGNOSES: 1. Abnormal uterine bleeding. PROCEDURES PERFORMED: 1. Robotic-assisted laparoscopic hysterectomy. 2. Bilateral salpingectomy. 3. Cystoscopy. SURGEON: Jayro Wasserman MD FINANCIAL ASSISTANCE ADVISOR: PAU Rodriguez ANESTHESIA: General endotracheal anesthesia. ESTIMATED BLOOD LOSS: 100 mL. INTRAVENOUS FLUIDS: 1800 mL lactated Ringer solution. URINE OUTPUT: 300 mL. PREPROCEDURE ANTIBIOTICS: 2g Ancef OPERATIVE FINDINGS: The patient with normal-appearing bilateral adnexa and uterus CYSTOSCOPIC FINDING: Normal bladder mucosa, no foreign objects. Bilateral ureteral jets were observed. SPECIMEN: Uterus, cervix, bilateral fallopian tubes DESCRIPTION OF PROCEDURE: After informed consent was obtained and written consent was reviewed, the patient was brought to the operating room, where general endotracheal anesthesia was obtained. She was then placed in lithotomy position, was prepped and draped in a normal sterile fashion. A time-out in the operating room was then performed, identifying the patient, procedure to be performed, as well as drug allergies. A speculum was then placed, revealing the cervix. The anterior and posterior aspects of the cervix were stitched with a 0 Vicryl. The uterus was then sounded to 10cm. A large Soluto uterine manipulator was then advanced through the cervical os for means to manipulate the uterus. The cervical cap was applied over the cervix, as well as the vaginal sleeve applied into the vagina. The speculum was removed from the patients vagina. A Mata catheter was then placed and set to gravity. Gloves were changed, and attention was turned to the patients abdomen, where a Veress needle was placed through the umbilicus. A pneumoperitoneum was then obtained with CO2 gas. The supraumbilical area was infused with 0.25% Marcaine. An incision was made in this area, and a 8 mm trocar and sleeve was advanced through this incision. The laparoscope was then replaced, revealing intra-abdominal placement. Three additional port sites were placed, two to the left side of the patient's abdomen and one to the right. These areas was infused with 0.25% Marcaine. Each one of these areas, incisions were made, and 8 mm trocars and sleeves advanced through each one of these incisions under direct visualization. Next, the da López was then docked, utilizing a camera arm and two operative arms. The patient's abdomen was then surveyed with the above-noted finding. Bilateral salpingectomies were then performed. The fallopian tubes' mesosalpinx was cauterized and ligated with hemostasis noted. Next, the uteroovarian ligaments bilateral were cauterized and ligated with good hemostasis noted. The round ligaments bilaterally were cauterized and ligated with good hemostasis noted. The anterior and posterior aspects of broad ligaments were . The anterior leaf of the broad ligament was cauterized and ligated and dissected along the bladder, creating a bladder flap. The remainder of the broad and cardinal ligaments were then cauterized and ligated with good hemostasis noted. The uterine arteries were skeletonized bilaterally and were cauterized and transected with good hemostasis noted. Anterior and posterior colpotomies were made using monopolar scissors. The uterus was then brought out through the vaginal incision. The surgical sites were inspected and noted to be hemostatic. The vaginal cuff was then closed using 2-0 V-Loc system in a running fashion. Helga was then applied over the surgical field. The pneumoperitoneum was then released. Next, the cystoscopy was then performed. Utilizing a 70-degree cystoscope, it was advanced transurethrally through the bladder. The bladder was surveyed, showing normal bladder mucosa, no foreign bodies. The bilateral ureteral jets were observed. The cystoscope was then removed. The bladder was then drained. Gloves were changed. Attention was then turned to the patients abdomen, where all four port sites were closed with 4-0 Monocryl and dressed with Dermabond. The patient was then taken out of lithotomy position and was awakened from general anesthesia and taken to recovery in stable condition. Counts were correct. Serenity Wells, my assistant film editor, played a central role in the operation. She assisted with port placement, tissue retraction and identification, as well as wound closure. JAYRO WASSERMAN MD. Oct 31, 2021 10:40
[2021-10-31] MEDS ORDERED: ePHEDrine SULFATE 25 MG/5 ML(5MG/ML) SYRINGE As Ordered ONE (10:48)
[2021-10-31] MEDS ORDERED: OXYC1TAB23 PO (12:37)
[2021-10-31] MEDS ORDERED: oxyCODONE 5MG TAB PO PRN (13:05)
[2021-10-31] MEDS ORDERED: ONDANSETRON 4MG/2ML VIAL IV PRN (13:05)
[2021-10-31] MEDS ORDERED: fentaNYL 100 MCG/2 ML INJECTION (J3010) IV PRN (13:05)
[2021-10-31] MEDS ORDERED: LR 1,000 ML IV SCH (13:05)
[2021-10-31] MEDS: PERCOCET 5MG/325MG TAB PO PRN ×3 (13:23→23:42)
[2021-10-31] MEDS ORDERED: QUET400T2 PO (16:33)
[2021-10-31] MEDS ORDERED: HOME MED LIST COMPLETE! XX SCH (16:35)
[2021-10-31] MEDS ORDERED: IPRATROPIUM 0.5MG/ALBUTEROL 2.5MG INH SOL UD 3ML (DUONEB) INH PRN (17:10)
[2021-10-31] MEDS ORDERED: ALBUTEROL 90 MCG/ACT 8GM HFA INHALER INH PRN (17:10)
[2021-10-31] MEDS ORDERED: ALBUTEROL SULFATE 2.5 MG/0.5 ML INH NEB SOLN INH PRN (17:10)
[2021-10-31] MEDS: hydroCHLOROthiazide 12.5 MG CAPSULE PO SCH (17:32)
[2021-10-31] MEDS ORDERED: zolPIDEM TARTRATE 5 MG TAB PO SCH (21:00)
[2021-10-31] MEDS ORDERED: QUEtiapine FUMARATE 200 MG TAB PO SCH (21:00)
[2021-10-31] MEDS ORDERED: lamoTRIgine 100MG TAB PO SCH (21:00)
[2021-10-31] MEDS ORDERED: FLUoxetine 20 MG CAP PO SCH (21:00)
[2021-10-31] MEDS ORDERED: PREGABALIN 75 MG CAP(LYRICA) PO SCH (21:00)
[2021-10-31] MEDS: clonazePAM 1 MG TAB PO SCH (21:51)
[2021-11-01 02:00] VITALS: BP 100/62
[2021-11-01 06:00] VITALS: BP 110/72
[2021-11-01] MEDS: clonazePAM 1 MG TAB PO SCH (08:26)
[2021-11-01] MEDS: hydroCHLOROthiazide 12.5 MG CAPSULE PO SCH (08:26)
[2021-11-01 08:27] VITALS: BP 118/70
[2021-11-01] MEDS: NIFEdipine 30 MG XL TAB PO SCH (08:27)
[2021-11-01] MEDS: PERCOCET 5MG/325MG TAB PO PRN (08:28)
[2021-11-01] MEDS ORDERED: QUEtiapine FUMARATE 50MG TAB PO SCH (09:00)
[2021-11-01] MEDS ORDERED: CETIRIZINE (ZyrTEC) 10 MG TAB PO SCH (09:00)
[2021-11-01] MEDS ORDERED: lamoTRIgine 100MG TAB PO SCH (09:00)
[2021-11-01] MEDS ORDERED: NALOXONE INJ 0.4MG/1ML VIAL (J2310 PER 1MG) As Ordered ONE (09:17)
[2021-11-01] MEDS: NALOXONE INJ 0.4MG/1ML VIAL (J2310 PER 1MG) IV PRN ×3 (09:28→10:30)
[2021-11-01 09:50] LABS: HEMATOCRIT 29.7 % (36.0-47.0); MEAN CORPUSCULAR HEMOGLOBIN 23.5 pg (27.0-33.0); MEAN CORPUSCULAR HGB CONC 30.3 g/dl (32.0-36.5); MEAN CORPUSCULAR VOLUME 77.5 fl (80.0-96.0); PLATELET COUNT, AUTOMATED 390 10^3/uL (150-450); RED BLOOD COUNT 3.83 10^6/uL (4.00-5.40); WHITE BLOOD COUNT 10.3 10^3/uL (4.0-10.0)
[2021-11-01 10:01] LABS: PROTHROMBIN TIME 23.1 SECONDS (12.7-14.5)
[2021-11-01 10:02] LABS: PARTIAL THROMBOPLASTIN TIME 56.1 SECONDS (25.9-37.0)
[2021-11-01 10:12] LABS: ALBUMIN 2.9 GM/DL (3.2-5.2); ALT/SGPT 16 U/L (12-78); BILIRUBIN,TOTAL 0.1 MG/DL (0.2-1.0); BLOOD UREA NITROGEN 16 MG/DL (7-18); CALCIUM LEVEL 8.8 MG/DL (8.5-10.1); CARBON DIOXIDE LEVEL 28 MEQ/L (21-32); CHLORIDE LEVEL 106 MEQ/L (98-107); CREATININE FOR GFR 0.99 MG/DL (0.55-1.30); GLOMERULAR FILTRATION RATE > 60.0 (>60); GLUCOSE, FASTING 110 MG/DL (70-100); POTASSIUM SERUM 3.3 MEQ/L (3.5-5.1); SODIUM LEVEL 141 MEQ/L (136-145); TOTAL PROTEIN 6.7 GM/DL (6.4-8.2)
[2021-11-01] MEDS ORDERED: flumazeniL 0.5 MG/5 ML VIAL IV STA (10:40)
--- NOTE | 2021-11-01 10:53 | IPNPDOC ---
Subjective Date Seen The patient was seen on 11/01/21. Subjective Chief Complaint/HPI 31yo s/p RA-TLH with Dr. Wasserman. Uncomplicated. EBL 100ml. Upon entering room, patient was minimally responsive. She was able to stand/walk with minimal assistance from chair to bed. According to her RN, she was alert and oriented/conversational just prior to receiving her AM medications. Complicated by polypharmacy, and she had received this AM the following medications: Lamictal 150mg, Seroquel 50mg, Klonopin 1mg, Percocet 5mg/325mg x 2 tabs, HCTZ 12.5mg and Procardia XL 30mg. She became lethargic / somnolent shortly after these medications were all administered in close timing relation. Patient was complaining of abd/pelvic pain just prior to medication administration. She had no complaints of heavy VB, n/v, GUERRERO, sob, or cp. Of note, several missing pills reported to be missing from Klonopin bottle (pt's med bag examined). Respiratory rate upon my entering the room was 9/min. HR 100-110bpm, and BPs 100-110/70. O2 sat w/ NC 90-94% Gen: somnolent, but oriented to space and time. Able to take sips of water (upon her request) H: S1S2 L: nonlabored, CTAB Abd: soft, appropriately tender, no guarding/rebound tenderness, incisions c/d/i Ext: no c/c/e Neuro exam: no obvious deficits. See labs below. A/P: 31yo s/p RA-TLH, hemodynamically stable and no clinical evidence of significant postoperative bleeding. Persistent somnolence/minimal responsiveness shortly after AM meds. -Narcan and Flumazenil ordered -Discontinued Klonopin, Percocet, and Ambien orders. -Transfer to PCU for further close monitoring/postoperative care. Addendum: Patient now alert and oriented x 4 after receiving Narcan and Flumazenil. She insists she did not take any pills / home medication other than what was administered to her by the RN. She does not have thoughts of harming herself. She wants to be at home with her daughter. States she is "not staying in this hospital any longer" and demanded to be discharged. She has agreed to stay in hospital for a few more hours to establish that she remains stable. VSS/normotensive/Af, and has no current complaints of pain, sob, cp, GUERRERO, f/c/n/v. Exam remains unchanged other than that she is now A&Ox4 and completely responsive/obeys commands. I counseled her on the danger of polypharmacy and opioid use in addition to all of her medications. I advised against Percocet for pain control, and discontinued her postoperative Rx. Patient expressed understanding and is in agreement with this plan. She will follow up with Dr. Wasserman as scheduled. Dr. Wasserman made aware of the situation and agrees with plan. DO Vinny Michel DO. Assessment /Plan Plan/VTE VTE Prophylaxis Ordered?: Yes VS, I&O, 24H, Fishbone Vital Signs/I&O Vital Signs Date Time Temp Pulse Resp B/P (MAP) Pulse Ox O2 Delivery O2 Flow Rate FiO2 11/01/21 08:28 16 11/01/21 08:27 118/70 11/01/21 06:00 97.7 99 94 Nasal Cannula 1.0 I&O- Last 24 Hours up to 6 AM 11/01/21 06:00 Intake Total 2800 ml Output Total 1000 ml Balance 1800 ml Laboratory Data 24H LABS Laboratory Tests 2 11/01/21 09:34: Nucleated Red Blood Cells % (auto) 0.0, Prothrombin Time 23.1H, Prothromb Time International Ratio 2.00, Activated Partial Thromboplast Time 56.1H, Fibrinogen 571H, Anion Gap 7L, Glomerular Filtration Rate > 60.0, Calcium Level 8.8, Total Bilirubin 0.1L, Aspartate Amino Transf (AST/SGOT) 9, Alanine Aminotransferase (ALT/SGPT) 16, Alkaline Phosphatase 102, Total Protein 6.7, Albumin 2.9L, Albumin/Globulin Ratio 0.8L CBC/BMP Laboratory Tests 11/01/21 09:34 PEDRO MAGANA DO Nov 01, 2021 10:53
== END 2021-11-01 12:10 | disposition left against medical advice (07) ==
LOC: M SDC 07:48 → M MSPAV 14:24 → M SDC 11-01 12:10
PROVIDERS: ATTEND Obstetrics & Gynecology
DX: N85.8 Other specified noninflammatory disorders of uterus (principal); N80.0 Endometriosis of uterus; R40.0 Somnolence; I10 Essential (primary) hypertension; Z86.718 Personal history of other venous thrombosis and embolism; E03.9 Hypothyroidism, unspecified; K76.0 Fatty (change of) liver, not elsewhere classified; I27.20 Pulmonary hypertension, unspecified; G40.909 Epilepsy, unspecified, not intractable, without status epilepticus; E66.01 Morbid (severe) obesity due to excess calories; Z68.42 Body mass index [BMI] 45.0-49.9, adult; M19.90 Unspecified osteoarthritis, unspecified site; M32.9 Systemic lupus erythematosus, unspecified; F41.9 Anxiety disorder, unspecified; F32.9 Major depressive disorder, single episode, unspecified; F43.10 Post-traumatic stress disorder, unspecified; R56.9 Unspecified convulsions; R06.83 Snoring; T88.53XD Unintended awareness under general anesthesia during procedure, subsequent encounter; Y92.89 Other specified places as the place of occurrence of the external cause; Z91.018 Allergy to other foods; Z91.040 Latex allergy status; Z88.8 Allergy status to other drugs, medicaments and biological substances; Z88.5 Allergy status to narcotic agent; Z79.899 Other long term (current) drug therapy; Z79.01 Long term (current) use of anticoagulants
CPT/HCPCS: 36415; 58571; 80053; 85027; 85384; 85610; 85730; 86850; 86900; 86901; 88307; 96374; 96375; 96376; J0131; J0690; J1100; J1170; J2250; J2310; J2405; J2765; J3010; S2900

== ENCOUNTER 2021-11-06 14:43 | Inpatient (IN) | payer OTHER ==
[~2021-11-06] VITALS: Ht 162.6 cm; Wt 125.7 kg
[~2021-11-06 14:43] MED LIST changes: -LR 1,000 ML IV ONE; +QUET400T2 PO; -ceFAZolin SOD 2 GM in IV 1 EA IV ONE
[2021-11-06] MEDS ORDERED: NS 500 ML IV ONE ×2 (16:15→20:25)
[2021-11-06] MEDS ORDERED: ISOVUE-370 76% 100ML VIAL As Ordered ONE (16:36)
--- NOTE | 2021-11-06 16:42 | REP ---
INDICATION: Trauma COMPARISON: 10/07/2021 TECHNIQUE: Portable AP view of the chest FINDINGS: The mediastinum and cardiac silhouette are stable and cardiomegaly is again noted. The lung muniz are clear without acute consolidation, effusion, or pneumothorax. Skeletal structures are intact. IMPRESSION: No acute consolidation or effusion. <Electronically signed by Hossein Ingram > 11/06/21 [id number]
[2021-11-06 16:45] LABS: BASO # 0.1 10^3/uL (0.0-0.2); BASO % 0.3 % (0.0-1.0); EOS # 0.1 10^3/uL (0.0-0.5); EOS % 0.8 % (0.0-3.0); HEMOGLOBIN 10.4 g/dl (12.0-15.5); LYMPH # 1.2 10^3/uL (1.5-5.0); LYMPH % 7.3 % (24.0-44.0); MEAN CORPUSCULAR HEMOGLOBIN 22.9 pg (27.0-33.0); MEAN CORPUSCULAR HGB CONC 30.6 g/dl (32.0-36.5); MEAN CORPUSCULAR VOLUME 74.9 fl (80.0-96.0); MONO # 0.2 10^3/uL (0.0-0.8); MONO % 0.9 % (2.0-8.0); NEUTROPHILS # 14.6 10^3/uL (1.5-8.5); NEUTROPHILS % 89.8 % (36.0-66.0); PLATELET COUNT, AUTOMATED 533 10^3/uL (150-450); RED BLOOD COUNT 4.54 10^6/uL (4.00-5.40); WHITE BLOOD COUNT 16.2 10^3/uL (4.0-10.0)
[2021-11-06 16:56] LABS: INR 2.11; PROTHROMBIN TIME 24.1 SECONDS (12.7-14.5)
[2021-11-06 16:58] LABS: PARTIAL THROMBOPLASTIN TIME 65.3 SECONDS (25.9-37.0)
--- NOTE | 2021-11-06 17:06 | REP ---
INDICATION: Trauma. COMPARISON: None TECHNIQUE: Axial contrast-enhanced images from the lung bases to the pubic symphysis using 100 cc Isovue 370 intravenous contrast material. Coronal and sagittal reformations obtained. This CT examination was performed using the following dose reduction techniques: Automated exposure control, adjustment of mA and/or kv according to the patient's size, and the use of iterative reconstruction technique. FINDINGS: Free air within the abdomen is identified and consistent with the given history of recent laparoscopic surgical procedure. No evidence for solid organ injury. Liver, spleen, pancreas, bilateral adrenal glands and kidneys are normal. Evidence for prior cholecystectomy. The small and large bowel is relatively unremarkable and without obvious obstruction, acute inflammatory process or perforation. Pelvis demonstrates normal bladder and evidence for prior hysterectomy. The bilateral ovaries are normal. No ascites. No intraperitoneal or retroperitoneal adenopathy. Abdominal aorta and vasculature appear normal. Musculoskeletal structures are intact and without acute osseous abnormality. Lung muniz cannot exclude very subtle early perihilar and lower lobe airspace disease versus mild dependent changes. IMPRESSION: 1. Pneumoperitoneum of uncertain etiology. There is a questionable element of small bowel inflammatory change within the pelvis but findings are relatively nonspecific. 2. Very subtle patchy ground-glass opacities in the lower lung zones may reflect an extremely early mild inflammatory process including COVID-19 pulmonary disease. Correlation is required.. <Electronically signed by Hossein Ingram > 11/06/21 1540
[2021-11-06 17:09] LABS: ALBUMIN 3.5 GM/DL (3.2-5.2); ALT/SGPT 28 U/L (12-78); AMYLASE 33 U/L (25-115); BILIRUBIN,DIRECT < 0.1 MG/DL (0.0-0.2); BILIRUBIN,TOTAL 0.2 MG/DL (0.2-1.0); BLOOD UREA NITROGEN 13 MG/DL (7-18); CALCIUM LEVEL 9.2 MG/DL (8.5-10.1); CARBON DIOXIDE LEVEL 28 MEQ/L (21-32); CHLORIDE LEVEL 100 MEQ/L (98-107); CREATININE FOR GFR 0.93 MG/DL (0.55-1.30); GLOMERULAR FILTRATION RATE > 60.0 (>60); GLUCOSE, FASTING 211 MG/DL (70-100); LIPASE 53 U/L (73-393); POTASSIUM SERUM 3.1 MEQ/L (3.5-5.1); SODIUM LEVEL 139 MEQ/L (136-145); TOTAL PROTEIN 7.2 GM/DL (6.4-8.2)
[2021-11-06] MEDS ORDERED: PIPERACILLIN/TAZOBACTAM SOD 4.5 GM in D5W MINI-BAG PLUS 50 ML IV ONE (17:30)
[2021-11-06] MEDS ORDERED: KCL 10MEQ/100ML SWI (KRUN) 10 MEQ in IV 1 EA IV ONE (17:30)
[2021-11-06 17:32] LABS: RSV AMPLIFICATION NEGATIVE (NEGATIVE)
[2021-11-06] MEDS ORDERED: HOME MED LIST COMPLETE! XX SCH (18:10)
[2021-11-06] MEDS ORDERED: MORPHINE 2 MG/ML 1ML VIAL (J2270) IV ONE (19:10)
--- NOTE | 2021-11-06 19:19 | ECGEPIP ---
[facility] - ED Test Date: 2021-11-06 Pat Name: WINSOME RODRIGUEZ Department: Room: - Gender: Female Section Hand: SANJANA : 1990 Requested By: Jeremy Fiore Order Number: [id number] Reading MD: Jeremy Fiore Measurements Intervals [place] Rate: 132 P: 36 AL: 148 QRS: 36 QRSD: 94 T: 153 QT: 292 QTc: 432 Interpretive Statements Sinus tachycardia T wave abnormality, consider inferior ischemia cw 10/07/21 rate increased No prior ECG for comparison Nonspecific ST T wave changes Electronically Signed on 11-06-2021 19:19:43 EST by Jeremy Fiore
[2021-11-06] MEDS ORDERED: hydrALAZINE 20MG/ML 1ML VIAL (J0360 PER 20MG) IV PRN (20:00)
[2021-11-06] MEDS ORDERED: PILL CUTTER 1 EACH XX PRN (20:10)
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
[2021-11-06] MEDS: PREGABALIN 75 MG CAP(LYRICA) PO SCH (22:24)
[2021-11-06] MEDS: lamoTRIgine 100MG TAB PO SCH (22:24)
[2021-11-06] MEDS: NS 1,000 ML IV SCH (22:24)
[2021-11-06] MEDS: KCL 10MEQ/100ML SWI (KRUN) 10 MEQ in IV 1 EA IV SCH ×2 (22:25→23:26)
[2021-11-06 22:35] VITALS: BP 142/96
[2021-11-06] MEDS: QUEtiapine FUMARATE 200 MG TAB PO SCH (23:25)
[2021-11-07] MEDS ORDERED: NS 1,000 ML IV ONE (00:10)
[2021-11-07] MEDS: HYDROMORPHONE HCL 0.5 MG/ 0.5 ML SYRINGE (J1170 PER 1) IV PRN ×5 (00:48→20:39)
[2021-11-07] MEDS: PIPERACILLIN/TAZOBACTAM SOD 3.375 GM in D5W MINI-BAG PLUS 50 ML IV SCH ×3 (01:14→18:09)
[2021-11-07] MEDS: KCL 10MEQ/100ML SWI (KRUN) 10 MEQ in IV 1 EA IV SCH ×2 (01:14→03:25)
[2021-11-07 06:00] VITALS: BP 147/93
[2021-11-07 06:15] LABS: HEMATOCRIT 29.7 % (36.0-47.0); HEMOGLOBIN 9.3 g/dl (12.0-15.5)
[2021-11-07 06:44] LABS: BLOOD UREA NITROGEN 9 MG/DL (7-18); CALCIUM LEVEL 8.6 MG/DL (8.5-10.1); CARBON DIOXIDE LEVEL 31 MEQ/L (21-32); CHLORIDE LEVEL 102 MEQ/L (98-107); CREATININE FOR GFR 0.73 MG/DL (0.55-1.30); GLOMERULAR FILTRATION RATE > 60.0 (>60); GLUCOSE, FASTING 102 MG/DL (70-100); POTASSIUM SERUM 3.4 MEQ/L (3.5-5.1); SODIUM LEVEL 140 MEQ/L (136-145)
[2021-11-07] MEDS ORDERED: NALOXONE INJ 0.4MG/1ML VIAL (J2310 PER 1MG) IV PRN (09:10)
[2021-11-07] MEDS: QUEtiapine FUMARATE 50MG TAB PO SCH ×2 (09:36→13:11)
[2021-11-07] MEDS: lamoTRIgine 100MG TAB PO SCH ×2 (09:36→20:37)
[2021-11-07] MEDS: NS 1,000 ML IV SCH ×2 (09:39→16:25)
[2021-11-07 10:00] VITALS: BP 134/88
[2021-11-07] MEDS ORDERED: MAGNESIUM CITRATE 300 ML BTL PO ONE (11:45)
[2021-11-07] MEDS ORDERED: SENNA 8.6 MG TAB (SENOKOT) PO ONE (13:05)
[2021-11-07] MEDS ORDERED: SENNA 8.6 MG TAB (SENOKOT) PO PRN (13:05)
[2021-11-07] MEDS: APIXABAN 5 MG TAB (ELIQUIS) PO SCH ×2 (13:12→20:37)
[2021-11-07 14:00] VITALS: BP 135/89
--- NOTE | 2021-11-07 15:00 | IPNPDOC ---
Subjective Date Seen The patient was seen on 11/07/21. Subjective Chief Complaint/HPI SUBJECTIVE: Patient was seen and examined at bedside this morning. She states that her abdominal pain is still present and still has not yet had a BM. She's still passing flatus. Denies any increased CP, sob that deviates from her baseline. Denies any fever, chills, n/v/d. OBJECTIVE: VS: SEE BELOW GENERAL: Obese female. In no apparent distress. AAOx3 NEURO: No focal neurological deficits. conversational and cooperative. HEENT: Head is normocephalic and atraumatic. Extraocular muscles are intact. Pupils are equal, round, and reactive to light and accommodation. Nares appears normal. Moist mucous membranes. PULM: Clear to auscultation bilaterally. No wheezing, rhonchi or rales appreciated. CARDIO: Normal S1, S2. No significant murmurs, gallops, rubs or clicks. No signs of peripheral edema ABDOMEN: Soft, obese, nondistended. Hyperactive bowel sounds. There is a small amount of bruising around the umbilicus. She has several small scars that are well healing from prior surgery. There is no tympany to percussion of her abdomen. On palpation she is mostly tender in the left upper quadrant. She complains of mild tenderness around her umbilicus area. There is no rebound tenderness. Unable to appreciate organomegaly due to obese body habitus EXTREMITIES: No cyanosis, clubbing, rash, lesions. No tenderness on palpation. IMAGING: CT abd/pelvis with ctx IMPRESSION: 1. Pneumoperitoneum of uncertain etiology. There is a questionable element of small bowel inflammatory change within the pelvis but findings are relatively nonspecific. 2. Very subtle patchy ground-glass opacities in the lower lung zones may reflect an extremely early mild inflammatory process including COVID-19 pulmonary disease. Correlation is required. Chest radiograph IMPRESSION: No acute consolidation or effusion. IMPRESSION AND PLAN: 1. Abdominal pain. Patient is status post from a robotic lap hysterectomy with blunt trauma to the abdomen. General surgery and OB are on consultation and are opting for non-surgical interventions as perforation and acute intra-abdominal processes are lower on the differential, although cannot be completely ruled out. Patient has postop ileus and constipation. Her last bowel movement was reported as 10 days ago. We will start her on a bowel regimen and mag citrate. Continue IV fluid and pain management with IV Dilaudid 0.4 mg IV every 3 hours as needed. Narcan in place for reversal if it is necessary. 2. Sepsis. Source likely from CAP. She was tachycardic and had leukocytosis with elevated lactate. She is status post 500 cc fluid bolus in the ER with additional 500 cc on the floor. We will continue her on maintenance fluid at 70 cc/h and closely monitor her fluid status. Patient was given 1 dose of Zosyn in the ER and continued on the floor. Repeat lactate was within normal limits. 3. Sinus tachycardia. Patient had persistent sinus tachycardia upon presentation with rate in the 130s. This morning patient is normal sinus rhythm with rate in the 80s. Suspect this is secondary to pain. She's on IV dilaudid 0.4mg Iv q3hprn with narcan for reversal if necessary. 4. Community-acquired pneumonia. Leukocytosis upon presenting which is improving. Afebile. Sputum for Gram stain and culture sent. Atypicals have also been sent. Continue on Zosyn. 5. History of DVT on Eliquis. Patient has a history of lupus and 2 DVTs (one in the right upper extremity and one in the lower extremity). She is at high risk for thrombophilia. Her eliquis was initially held due to possible surgical interventions. Gen surgery and Obgyn have seen and assessed patient and recommend outpatient follow up and non surgical interventions. In view of this recommendation, I will resume her eliquis for AC. 6. Hypokalemia. 3.1 on admission. Repleted. Will closely monitor and replete as necessary. 7. Systemic lupus erythematosus (SLE). Benlysta qweekly. Not in acute flare. 8. Asthma. No in acute exacerbation. C/w home inhaler. 9. Anxiety/Depression. c/w home meds. 10. Microcytic Anemia. Multifactorial. Patient has a history of menorrhagia and iron deficiency anemia secondary to blood loss (chronic). She has has a hx of SLE and anemia could be also due to chronic disease. She status post hysterectomy on 10/31/2021. 11. History of bipolar disorder. Mood and affect appropriate. C/w with qutiapine and fumarate. 12. Hypertension. Her home regimen are HCTZ, nifedipine. Both held on admission due to softer blood pressure. Currently, her bp is SBP in the 130s -140s. 13. Hx of seizure. C/w home med. DVT ppx: eliquis CODE STATUS: Full Disposition: Pending clinical improvement. Advance diet as tolerated. GME ATTESTATION GME ATTESTATION My faculty preceptor for this patient encounter was physically present during the encounter and was fully available. All aspects of the patient interview, examination, medical decision making process, and medical care plan development were reviewed and approved by the faculty preceptor. The faculty preceptor is aware and concurs with the plan as stated in the body of this note and will attest to such by his/her cosignature. Bassam Ha DO Nov 07, 2021 13:17
[2021-11-07 18:00] VITALS: BP 138/89
[2021-11-07 18:08] LABS: HEMATOCRIT 32.3 % (36.0-47.0); HEMOGLOBIN 9.9 g/dl (12.0-15.5)
[2021-11-07 20:00] VITALS: BP 134/88
[2021-11-07] MEDS: guaiFENesin DM LIQ 10ML UD PO PRN (20:37)
[2021-11-07] MEDS: QUEtiapine FUMARATE 200 MG TAB PO SCH (20:37)
[2021-11-07] MEDS: PREGABALIN 75 MG CAP(LYRICA) PO SCH (20:37)
--- NOTE | 2021-11-07 20:44 | ECGEPIP ---
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
[2021-11-07] MEDS ORDERED: POTASSIUM CHLORIDE 10MEQ SR TABLET PO ONE (23:05)
[2021-11-07] MEDS: KCL 40MEQ in NS 1000ML 1,000 ML IV SCH (23:18)
[2021-11-08] MEDS: ALBUTEROL 90 MCG/ACT 8GM HFA INHALER INH PRN ×2 (00:25→04:34)
[2021-11-08] MEDS: HYDROMORPHONE HCL 0.5 MG/ 0.5 ML SYRINGE (J1170 PER 1) IV PRN ×4 (00:33→12:49)
[2021-11-08] MEDS: PIPERACILLIN/TAZOBACTAM SOD 3.375 GM in D5W MINI-BAG PLUS 50 ML IV SCH ×2 (01:22→09:28)
[2021-11-08] MEDS ORDERED: POTASSIUM CHLORIDE 10MEQ SR TABLET PO ONE (06:00)
[2021-11-08 06:08] LABS: HEMATOCRIT 31.2 % (36.0-47.0); HEMOGLOBIN 9.5 g/dl (12.0-15.5); MEAN CORPUSCULAR HEMOGLOBIN 23.2 pg (27.0-33.0); MEAN CORPUSCULAR HGB CONC 30.4 g/dl (32.0-36.5); MEAN CORPUSCULAR VOLUME 76.1 fl (80.0-96.0); PLATELET COUNT, AUTOMATED 439 10^3/uL (150-450); WHITE BLOOD COUNT 13.3 10^3/uL (4.0-10.0)
[2021-11-08 06:32] LABS: BLOOD UREA NITROGEN 9 MG/DL (7-18); CALCIUM LEVEL 8.4 MG/DL (8.5-10.1); CARBON DIOXIDE LEVEL 29 MEQ/L (21-32); CHLORIDE LEVEL 108 MEQ/L (98-107); CREATININE FOR GFR 0.65 MG/DL (0.55-1.30); GLOMERULAR FILTRATION RATE > 60.0 (>60); GLUCOSE, FASTING 82 MG/DL (70-100); POTASSIUM SERUM 3.9 MEQ/L (3.5-5.1); SODIUM LEVEL 142 MEQ/L (136-145)
[2021-11-08 06:59] VITALS: BP 150/88
[2021-11-08] MEDS: IPRATROPIUM 0.5MG/ALBUTEROL 2.5MG INH SOL UD 3ML (DUONEB) NEB SCH ×2 (08:00→12:00)
[2021-11-08] MEDS: KCL 40MEQ in NS 1000ML 1,000 ML IV SCH (09:03)
--- NOTE | 2021-11-08 09:08 | IPNPDOC ---
Subjective Date Seen The patient was seen on 11/08/21. Subjective Chief Complaint/HPI SUBJECTIVE: Patient was seen and examined at bedside rounds this am. She states that her abdominal pain is still present and about the same pain og. She states she did have a formed BM yesterday afternoon after she drank the mag citrate. She was also started on senna and she did report another 2 BMs this morning but was looser and more watery in consistency. She denies any fever, chills, n/v. She denies any pleuritic chest pain or increased lower extremity swelling. Her diet was transitioned as tolerated yesterday and she has been tolerating a 2g Na diet without any issues. Patient states that she is not ready to be discharged today and wants to stay or one more day. OBJECTIVE: VS: SEE BELOW GENERAL: Obese female. In no apparent distress. AAOx3 NEURO: No focal neurological deficits. conversational and cooperative. HEENT: Head is normocephalic and atraumatic. Extraocular muscles are intact. Pupils are equal, round, and reactive to light and accommodation. Nares appears normal. Moist mucous membranes. PULM: Clear to auscultation bilaterally. No wheezing, rhonchi or rales appreciated. CARDIO: Normal S1, S2. No significant murmurs, gallops, rubs or clicks. No signs of peripheral edema ABDOMEN: Soft, obese, nondistended. Normal bowel sounds. There is a small amount of bruising around the umbilicus. She has several small scars that are well healing from prior surgery. There is no tympany to percussion of her abdomen. On palpation she is mostly tender in the left upper quadrant. Still mild tenderness around her umbilicus area. There is no rebound tenderness. Unable to appreciate organomegaly due to obese body habitus EXTREMITIES: No cyanosis, clubbing, rash, lesions. No tenderness on palpation. IMPRESSION AND PLAN: 1. Abdominal pain. Patient is status post from a robotic lap hysterectomy with blunt trauma to the abdomen. General surgery and OB are on consultation and are opting for non-surgical interventions as perforation and acute intra-abdominal processes are lower on the differential, although cannot be completely ruled out. Continue IV fluid and pain management with IV Dilaudid 0.4 mg IV every 3 hours as needed. Narcan in place for reversal if it is necessary. 2. Postop ileus and constipation. She was given bowel regimen and mg citrate and was able to have 3 BMs, one formed BM and 2 more loose this morning. Will D/C senna today and monitor her in and output. 2. S/p Sepsis. Source likely from CAP. HR wnl and repeat lactate wnl. S/p fluid boluses. Will keep her on a maintenance fluid @ 70cc/h and monitor her I&Os. Patient was given 1 dose of Zosyn in the ER and continued on the floor. 3. Sinus tachycardia (resolved.) HR in the 80s. Suspect this was secondary to pain. She's on IV dilaudid 0.4mg Iv q3hprn with narcan for reversal if neces lindsay. 4. Community-acquired pneumonia. Leukocytosis upon presenting which is improving. Afebile. Sputum for Gram stain and culture sent. Atypicals have also been sent. Continue on Zosyn. Will need a referral to Pulmonary outpatient follow up as she's had multiple episodes of PNA within a short time period. I have spoken with patient about this and that given her age and hx of asthma that she is advised to follow with a specialist and she's agreeable to follow up with Pulm outpt. 5. History of DVT on Eliquis. Patient has a history of lupus and 2 DVTs (one in the right upper extremity and one in the lower extremity). She is at high risk for thrombophilia. Her eliquis was initially held due to possible surgical interventions. Gen surgery and Obgyn have seen and assessed patient and recommend outpatient follow up and non surgical interventions. In view of this recommendation, I will resume her eliquis for AC. 6. Hypokalemia. 3.1 on admission. Repleted. Will closely monitor and replete as necessary. 7. Systemic lupus erythematosus (SLE). Benlysta qweekly. Not in acute flare. 8. Asthma. No in acute exacerbation. C/w home inhaler and duonebs prn for wheezing and/or sob. Have spoken to her about following up with Pulmonary outpatient given that she's had multiple episodes of PNA in the past. She is agreeable. 9. Anxiety/Depression. c/w home meds. 10. Microcytic Anemia. Multifactorial. Patient has a history of menorrhagia and iron deficiency anemia secondary to blood loss (chronic). She has has a hx of SLE and anemia could be also due to chronic disease. She status post hysterec abhijit on 10/31/2021. 11. History of bipolar disorder. Mood and affect appropriate. C/w with qutiapine and fumarate. 12. Hypertension. Her home regimen are HCTZ, nifedipine. Both held on admission due to softer blood pressure. Currently, her bp is SBP in the 130s -140s. 13. Hx of seizure. C/w home med. DVT ppx: eliquis CODE STATUS: Full Disposition: Pending clinical improvement. Expect discharge within next 24h GME ATTESTATION GME ATTESTATION My faculty preceptor for this patient encounter was physically present during the encounter and was fully available. All aspects of the patient interview, examination, medical decision making process, and medical care plan development were reviewed and approved by the faculty preceptor. The faculty preceptor is aware and concurs with the plan as stated in the body of this note and will attest to such by his/her cosignature. Bassam Ha DO Nov 08, 2021 09:08
[2021-11-08] MEDS: QUEtiapine FUMARATE 50MG TAB PO SCH ×2 (09:27→12:48)
[2021-11-08] MEDS: lamoTRIgine 100MG TAB PO SCH (09:27)
[2021-11-08] MEDS: APIXABAN 5 MG TAB (ELIQUIS) PO SCH (09:27)
[2021-11-08] MEDS: guaiFENesin DM LIQ 10ML UD PO PRN (09:27)
[2021-11-08] MEDS ORDERED: DOXY-350 PO (11:54)
[2021-11-08] MEDS ORDERED: PERC5TAB12 PO ×2 (12:01→12:12)
[2021-11-08] MEDS ORDERED: SENN-80 PO (12:10)
--- NOTE | 2021-11-08 12:27 | DS.PDOC ---
Discharge Summary General Date of Admission Nov 06, 2021 at 19:47 Date of Discharge 11/08/21 Attending Physician: YEYO PETERSON MD Specialist/Consultants Involve: Torito Andrade DO Specialist/Consultants Involve Dr. Harvey Amaya Discharge Summary PROCEDURES PERFORMED DURING STAY: None ADMITTING DIAGNOSES / DISCHARGE DIAGNOSES: SLE Thrombophilia HTN History of bipolar disorder history of seizure anxiety/depression Hypokalemia History of DVT (upper R ext and lower extr) s/p sepsis Community acquired pneumonia Asthma COMPLICATIONS/CHIEF COMPLAINT: abdominal pain HISTORY OF PRESENT ILLNESS: Mrs. Akers, a 31-year-old woman presented to the emergency department with abdominal pain. She had a laparoscopic hysterectomy on 10/31/2021. Yesterday, her 1-year-old child jumped on her abdomen after which she has been having constant pain in abdomen. It is in the mid abdomen at the site of umbilical incision for laparoscopy. She has noted contusion of the abdominal wall. There is no oozing from the incision site. The pain does not radiate but encompasses a wide area. She does not have nausea or vomiting. She has no distention of abdomen. She has moved her bowels last on 10 days back and has been trying to address the constipation with various laxatives without success. She has had no fever or shaking chills. Yesterday night, she felt that she had minimal spotting but there has been no constant vaginal bleeding. F or last 5 to 6 days, she has been having cough and jak sputum production. She has had pneumonia on 5 previous occasions. She states that in one of the pneumonia episodes, she was required to be transported to [facility] for management of pneumonia. She does not have shaking chills or fever. She has pain while coughing which starts under bilateral breasts and curves around the medial margin of the breasts to the sternum and then up. Deep breaths increase the pain. Lying still relieves the pain somewhat. She has shortness of breath which is minimal. She does not normally have to use oxygen at home. She has past history of pulmonary hypertension and DVT of unilateral upper and unilateral lower extremities. She is on Eliquis for the same. The last dose of Eliquis has been today morning. She is on Benlysta for lupus. Her disease is in remission. Last dose of Benlysta was a week before her surgery. She is due for the next dose now. She does not have burning in the urine, frequency of micturition, blood in the urine, headache, blurry vision, focal weakness of extremities, sensory symptoms on the face or extremities, joint pains, joint swellings, lymph node enlargement, skin rash, tongue ulcers, sore throat or symptoms of cold. HOSPITAL COURSE: Patient was seen and examined at bedside rounds this am. She states that her abdominal pain is still present and about the same pain go. She states she did have a formed BM yesterday afternoon after she drank the mag citrate. She was also started on senna and she did report another 2 BMs this morning but was looser and more watery in consistency. She denies any fever, chills, n/v. She denies any pleuritic chest pain or increased lower extremity swelling. Her diet was transitioned as tolerated yesterday and she has been tolerating a 2g Na diet without any issues. Patient states that she is not ready to be discharged today and wants to stay or one more day. 1. Abdominal pain. Patient is status post from a robotic lap hysterectomy with blunt trauma to the abdomen. General surgery and OB are on consultation and are opting for non-surgical interventions as perforation and acute intra-abdominal processes are lower on the differential, although cannot be completely ruled out. D/r hospitalization, IV fluid and pain management with IV Dilaudid 0.4 mg IV every 3 hours as needed with Narcan in place for reversal if it is necessary. D/c home with Percocet 5/325mg TID prn for 3 days. 2. Postop ileus and constipation. She was given bowel regimen and mg citrate and was able to have 3 BMs, one formed BM and 2 more loose this morning. Will D.c her home with senna prn for 5 days. F/u with PCP. 2. S/p Sepsis. Source likely from CAP. HR wnl and repeat lactate wnl. S/p fluid boluses. Will keep her on a maintenance fluid @ 70cc/h and monitor her I&Os. Patient was given 1 dose of Zosyn in the ER and continued on the floor. 3. Sinus tachycardia (resolved.) HR in the 80s. Suspect this was secondary to pain. She's on IV dilaudid 0.4mg Iv q3hprn with narcan for reversal if necessary. 4. Community-acquired pneumonia. Leukocytosis upon presenting which is improving. Afebile. Sputum for Gram stain and culture sent. Atypicals have also been sent. Zosyn during inpatient course. Will discharge home with doxcycline 100mg PO BID for additional 4 days. Will need a referral to Pulmonary outpatient follow up as she's had multiple episodes of PNA within a short time period. I have spoken with patient about this and that given her age and hx of asthma that she is advised to follow with a specialist and she's agreeable to follow up with Pulm outpt. 5. History of DVT on Eliquis. Patient has a history of lupus and 2 DVTs (one in the right upper extremity and one in the lower extremity). She is at high risk for thrombophilia. Her eliquis was initially held due to possible surgical interventions. Gen surgery and Obgyn have seen and assessed patient and recommend outpatient follow up and non surgical interventions. In view of this recommendation, I will resume her eliquis for AC. 6. Hypokalemia. 3.1 on admission. Repleted. upon discharge Hypok+ resolved. 7. Systemic lupus erythematosus (SLE). Benlysta qweekly. Not in acute flare. 8. Asthma. No in acute exacerbation. C/w home inhaler and duonebs prn for wheezing and/or sob. Have spoken to her about following up with Pulmonary ou tpatient given that she's had multiple episodes of PNA in the past. She is agreeable. 9. Anxiety/Depression. c/w home meds. 10. Microcytic Anemia. Multifactorial. Patient has a history of menorrhagia and iron deficiency anemia secondary to blood loss (chronic). She has has a hx of SLE and anemia could be also due to chronic disease. She status post hysterectomy on 10/31/2021. 11. History of bipolar disorder. Mood and affect appropriate. C/w with qutiapine and fumarate. 12. Hypertension. Her home regimen are HCTZ, nifedipine. Both held on admission due to softer blood pressure. Currently, her bp is SBP in the 130s -140s. 13. Hx of seizure. C/w home med. DVT prophylaxis: Eliquis Code status: FULL DISCHARGE MEDICATIONS: Please see below. ALLERGIES: Please see below. PHYSICAL EXAMINATION ON DISCHARGE: VS: SEE BELOW GENERAL: Obese female. In no apparent distress. AAOx3 NEURO: No focal neurological deficits. conversational and cooperative. HEENT: Head is normocephalic and atraumatic. Extraocular muscles are intact. Pupils are equal, round, and reactive to light and accommodation. Nares appears normal. Moist mucous membranes. PULM: Clear to auscultation bilaterally. No wheezing, rhonchi or rales appreciated. CARDIO: Normal S1, S2. No significant murmurs, gallops, rubs or clicks. No signs of peripheral edema ABDOMEN: Soft, obese, nondistended. Normal bowel sounds. There is a small amount of bruising around the umbilicus. She has several small scars that are well healing from prior surgery. There is no tympany to percussion of her abdomen. On palpation she is mostly tender in the left upper quadrant. Still mild tenderness around her umbilicus area. There is no rebound tenderness. Unable to appreciate organomegaly due to obese body habitus EXTREMITIES: No cyanosis, clubbing, rash, lesions. No tenderness on palpation. LABORATORY DATA: Please see below. IMAGING: CT abdomen and pelvis with contrast IMPRESSION: 1. Pneumoperitoneum of uncertain etiology. There is a questionable element of small bowel inflammatory change within the pelvis but findings are relatively nonspecific. 2. Very subtle patchy ground-glass opacities in the lower lung zones may reflect an extremely early mild inflammatory process including COVID-19 pulmonary disease. Correlation is required. Chest radiograph impression: No acute consolidation or effusion ACTIVITY: [As tolerated]. DISCHARGE PLAN: Follow up with PCP within 7 days Remain compliant with treatment plan and medications: please take doxycycline 100mg PO BID for additional 4 days for total 5 days abx. Please take percocet only for severe 8-10 pain TID prn. Please take senna as needed for constipation Return to the ER if you experience recurring and/or worsened symptoms DISPOSITION: Home DISCHARGE CONDITION: Stable TIME SPENT ON DISCHARGE: 35 mins Vital Signs/I&Os Vital Signs Date Time Temp Pulse Resp B/P (MAP) Pulse Ox O2 Delivery O2 Flow Rate FiO2 11/08/21 09:38 15 Room Air 11/08/21 06:59 150/88 (108) 11/08/21 06:00 97.7 86 93 I&O- Last 24 Hours up to 6 AM 11/08/21 05:59 Intake Total 3245 ml Output Total 760 ml Balance 2485 ml Laboratory Data Labs 24H Laboratory Tests 2 11/07/21 21:37: Urine Color YELLOW, Urine Appearance HAZY, Urine pH 7.0, Urine Specific [place] 1.025, Urine Protein NEGATIVE, Urine Glucose (UA) NEGATIVE, Urine Ketones NEGATIVE, Urine Blood NEGATIVE, Urine Nitrite NEGATIVE, Urine Bilirubin NEGATIVE, Urine Urobilinogen 0.2, Urine Leukocyte Esterase NEGATIVE, Urine WBC (Auto) 2, Urine RBC (Auto) 2, Urine Hyaline Casts (Auto) 0, Urine Bacteria (Auto) NEGATIVE, Urine Squamous Epithelial Cells 16, Urine Mucus (Auto) SMALL, Urine Sperm (Auto) 11/08/21 05:42: Nucleated Red Blood Cells % (auto) 0.0, Anion Gap 5L, Glomerular Filtration Rate > 60.0, Calcium Level 8.4L CBC/BMP Laboratory Tests 11/07/21 17:34 11/07/21 21:57 11/08/21 05:42 Microbiology Microbiology 11/08/21 Gram Stain, Received Pending 11/08/21 Sputum Culture, Received Pending Discharge Medications Scheduled Apixaban (Eliquis) 5 Mg Tablet, 5 MG PO BID, (Reported) Belimumab (Benlysta) 200 Mg/1 Ml Auto.injct, 200 MG SC QWEEK, (Reported) MONDAYS Cetirizine HCl (Cetirizine HCl) 10 Mg Tablet, 10 MG PO DAILY, (Reported) Clonazepam (Clonazepam) 1 Mg Tablet, 1 MG PO TID, (Reported) Doxycycline Monohydrate (Doxycycline) 100 Mg Capsule, 100 MG PO BID Ergocalciferol (Vitamin D2) (Drisdol) 1,250 Mcg Capsule, 1,250 MCG PO QWEEK, (Reported) SUNDAYS Fluoxetine Hcl (Fluoxetine HCl) 40 Mg Capsule, 80 MG PO QHS, (Reported) Fremanezumab-Vfrm (Ajovy Autoinjector) 225 Mg/1.5 Ml Auto.injct, 225 MG SQ Q3M, (Reported) Hydrochlorothiazide (Hydrochlorothiazide) 12.5 Mg Capsule, 12.5 MG PO DAILY, (Reported) Hydrocodone/Acetaminophen (Hydrocodone-Acetamin 5-325 mg) 1 Each Tablet, 1 TAB PO BID, (Reported) Lamotrigine (Lamotrigine) 150 Mg Tablet, 150 MG PO DAILY, (Reported) Lamotrigine (Lamotrigine) 100 Mg Tablet, 100 MG PO QHS, (Reported) Nifedipine (Nifedipine ER) 30 Mg Tablet.er, 30 MG PO DAILY, (Reported) Pregabalin (Pregabalin) 75 Mg Capsule, 75 MG PO QHS, (Reported) Quetiapine Fumarate (Quetiapine Fumarate) 50 Mg Tablet, 50 MG PO BID, (Reported) TAKE QAM AND AT NOON Quetiapine Fumarate (Quetiapine Fumarate) 400 Mg Tablet, 400 MG PO QHS, (Reported) Sennosides (Senna) 8.6 Mg Tablet, 2 TAB PO BID for constipation Zolpidem Tartrate (Zolpidem Tartrate) 10 Mg Tablet, 10 MG PO QHS, (Reported) Scheduled PRN Albuterol Sulfate (Proair Hfa) 8.5 Gm Hfa.aer.ad, 2 PUFF INH Q4H PRN for SHORTNESS OF BREATH, (Reported) Albuterol Sulfate (Albuterol Sulfate) 1.25 Mg/3 Ml Vial.neb, 1.25 MG INH QID PRN for SHORTNESS OF BREATH, (Reported) Butalb/Acetaminophen/Caffeine (Ykuwpm-Feyvshmr-Cuqc 50-325-40) 1 Each Tablet, 1 TAB PO TID PRN for MIGRAINE, (Reported) Epinephrine (Epipen 2-Gunner) 0.3 Mg/0.3 Ml Auto.injct, 0.3 MG IM ASDIRECTED PRN for ANAPHYLAXIS, (Reported) Ipratropium/Albuterol Sulfate (Iprat-Albut 0.5-3(2.5) mg/3 ml) 3 Ml Ampul.neb, 3 ML INH QID PRN for SHORTNESS OF BREATH, (Reported) Oxycodone HCl/Acetaminophen (Percocet 5-325 mg Tablet) 1 Each Tablet, 1 TAB PO TIDP PRN for SEVERE PAIN (PS 8-10) Allergies Coded Allergies: Kiwi (Verified Allergy, Severe, anaphylaxis, 10/18/21) avocado (Verified Allergy, Severe, anaphylaxis, 10/18/21) banana (Verified Allergy, Severe, anaphylaxis, 10/18/21) hydroxychloroquine (Verified Allergy, Severe, anaphylaxis, 10/18/21) latex (Verified Allergy, Severe, anaphylaxis, 10/18/21) Pork (Verified Adverse Reaction, Severe, LOWERS SEIZURE THRESHOLD, 10/18/21) enoxaparin (Verified Adverse Reaction, Intermediate, LOWERS SEIZURE THRESHOLD, 10/18/21) ketorolac (Verified Adverse Reaction, Intermediate, seizures, 10/18/21) methocarbamol (Verified Adverse Reaction, Intermediate, seizures, 10/18/21) famotidine (Verified Adverse Reaction, Mild, vomiting, 10/18/21) promethazine (Verified Adverse Reaction, Mild, vomiting, 10/18/21) Bassam Ha DO Nov 08, 2021 12:25
[2021-11-10 15:09] LABS: BODY FLUID CULTURE Not indicated. (.); LEGIONELLA ANTIGEN URINE Negative (Negative); ORGANISM ID Not indicated. (.); SPECIMEN SOURCE Urine (.); URINE STREP PNEUMONIAE ANTIGEN Negative (Negative)
== END 2021-11-08 15:07 | disposition home or self-care (01) | DRG 720 ==
LOC: M ED 14:43 → M ED INP 19:47 → M MSPAV 21:45
PROVIDERS: ADMIT Internal Medicine; ATTEND Internal Medicine
DX: A41.9 Sepsis, unspecified organism (principal); J18.9 Pneumonia, unspecified organism; D68.59 Other primary thrombophilia; I27.20 Pulmonary hypertension, unspecified; M32.9 Systemic lupus erythematosus, unspecified; I10 Essential (primary) hypertension; E87.6 Hypokalemia; F41.9 Anxiety disorder, unspecified; J45.909 Unspecified asthma, uncomplicated; Z86.718 Personal history of other venous thrombosis and embolism; K91.89 Other postprocedural complications and disorders of digestive system; K59.00 Constipation, unspecified; Z79.01 Long term (current) use of anticoagulants; D50.9 Iron deficiency anemia, unspecified; F31.9 Bipolar disorder, unspecified; Z79.899 Other long term (current) drug therapy; Z91.018 Allergy to other foods; Z91.040 Latex allergy status; Z88.8 Allergy status to other drugs, medicaments and biological substances

== ENCOUNTER → 2022-01-06 | Outpatient (CLI) | payer OTHER ==
[~2022-01-06] MED LIST changes: -D31000TA2 PO; +MAFE56.7 EXT; +SENN-80 PO; +VITA100093 PO; -[UNRECOGNIZED DRUG - CODE] EXT
== END ==
LOC: M TMPAIN 15:00 → M PAIN 15:00
PROVIDERS: ATTEND Anesthesiology
DX: G43.909 Migraine, unspecified, not intractable, without status migrainosus (principal); G89.29 Other chronic pain; M54.50 Low back pain, unspecified; G40.909 Epilepsy, unspecified, not intractable, without status epilepticus; M79.7 Fibromyalgia; J45.909 Unspecified asthma, uncomplicated; Z86.59 Personal history of other mental and behavioral disorders; Z87.891 Personal history of nicotine dependence; Z88.5 Allergy status to narcotic agent; Z88.8 Allergy status to other drugs, medicaments and biological substances; Z91.018 Allergy to other foods; Z91.040 Latex allergy status; E66.01 Morbid (severe) obesity due to excess calories; Z68.42 Body mass index [BMI] 45.0-49.9, adult; Z79.01 Long term (current) use of anticoagulants; Z79.899 Other long term (current) drug therapy